=== PATIENT | male | born 1935 | race Caucasian/White ===

== ENCOUNTER → 2017-11-04 | Outpatient (CLI) | payer MEDICARE ==
[2017-11-04 12:42] LABS: Basophils % (A) 0 %; Eosinophils # (A) 0.1 k/uL (0-0.7); Eosinophils % (A) 2 %; HCT 40.8 % (39.0-53.0); HGB 13.8 gm/dL (13.0-17.5); Lymphocytes # (A) 1.7 k/uL (1.0-4.8); Lymphocytes % (A) 25 %; MCH 30.1 pg (25.0-35.0); MCHC 33.8 g/dL (31.0-37.0); MCV 89.1 fL (80.0-100.0); Mean Platelet Volume 7.9; Monocytes # (A) 0.4 k/uL (0-1.0); Monocytes % (A) 5 %; Neutrophils # (A) 4.6 k/uL (1.3-7.7); Neutrophils % (A) 67 %; Platelet Count 193 k/uL (150-450); RBC 4.58 m/uL (4.30-5.90); RDW 13.3 % (11.5-15.5)
[2017-11-04 13:07] LABS: Calcium 9.6 mg/dL (8.4-10.2); Total Bilirubin 0.6 mg/dL (0.2-1.3); Total Protein 7.1 g/dL (6.3-8.2)
[2017-11-04 13:23] LABS: T4, Free (Free Thyroxine) 0.98 ng/dL (0.78-2.19)
[2017-11-05 11:57] LABS: PSA Annual Screen 1.86 ng/mL (0.00-4.00)
== END | disposition home or self-care (01) ==
LOC: LABWHC1 12:02
PROVIDERS: ATTEND Internal Medicine
DX: E78.5 Hyperlipidemia, unspecified (principal); I10 Essential (primary) hypertension
CPT/HCPCS: 36415; 80053; 80061; 84439; 84443; 85025

== ENCOUNTER 2018-02-18 10:00 | Day surgery (SDC) | payer MEDICARE ==
[2018-02-14 12:18] VITALS: BMI 20.7
[2018-02-18] MEDS ORDERED: LIDOCAINE 1% 20 ML VIAL (10MG/ML) FOR IV START INTRADERMA ONE (11:12)
[2018-02-18 11:14] VITALS: TEMP 97.8
[2018-02-18] MEDS: LACTATED RINGERS 1,000 ML IV SCH ×2 (11:14→11:21)
[2018-02-18] MEDS ORDERED: LIDOCAINE 1% INJ 10MG/ML (20 ML MDV) ONE (11:24)
[2018-02-18] MEDS ORDERED: PROPOFOL 10 MG/ML 20 ML VIAL IV ONE (11:24)
--- NOTE | 2018-02-18 11:55 | P.PCN ---
Date of Procedure: 02/18/18 Procedure(s) Performed: Procedure: Total colonoscopy. Preoperative diagnosis: History of colitis. Postoperative diagnosis: Sigmoid diverticulosis with no evidence of acute diverticulitis, strictures, polyps or cancer. Preparation: HalfLytely prep. Sedation: Was provided by anesthesia. Brief clinical history: The patient is an 82-year-old male who is scheduled for this evaluation because of history of colitis for screening for neoplasia or other pathology. The patient has intermittent issues with constipation at this time but no rectal bleeding. Procedure: With the patient on his left lateral decubitus position and after informed consent and adequate sedation, the perianal area was inspected and it did not show any fissures or fistulas. There were no masses felt on digital rectal examination. The Olympus CFQ 160L video colonoscope was then inserted in the rectum in the usual fashion and advanced to the cecum. I intubated the ileocecal valve and examined the terminal ileum. There were multiple diverticular orifices noted scattered in the sigmoid but there was no evidence of acute diverticulitis or strictures. No polyps or tumors were seen. The mucosa appeared healthy. I retroflexed endoscope in the rectum before the endoscope was withdrawn. Low-grade internal hemorrhoids were noted but there was no bleeding. The patient tolerated the procedure well. Plan: The patient was reassured. Discussed dietary measures. He will follow up with you as planned and further plans can be made based on his course.
[2018-02-18 12:24] VITALS: BP 150/70; PULSE 50; RESP 16
== END 2018-02-18 12:42 | disposition home or self-care (01) ==
LOC: ORWHC2ENDO 10:00
DX: K57.30 Diverticulosis of large intestine without perforation or abscess without bleeding (principal); K64.8 Other hemorrhoids; I10 Essential (primary) hypertension; N40.0 Benign prostatic hyperplasia without lower urinary tract symptoms; I69.998 Other sequelae following unspecified cerebrovascular disease; Z87.891 Personal history of nicotine dependence; Z79.899 Other long term (current) drug therapy
CPT/HCPCS: 45378; J2001; J2704

== ENCOUNTER 2019-01-20 11:28 | Emergency (ER) | payer MEDICARE ==
[2019-01-20 12:11] VITALS: BP 161/74; PULSE 59; RESP 18; TEMP 98.2
[2019-01-20] MEDS ORDERED: ACETAMINOPHEN TAB 325 MG TAB PO STA (13:26)
--- NOTE | 2019-01-20 14:04 | XR ---
EXAMINATION TYPE: XR chest 2V, XR ribs RT DATE OF EXAM: 01/20/2019 COMPARISON: Prior chest x-ray November 06, 2016. Older chest x-ray April 26, 2016. HISTORY: Chest and right-sided rib pain after fall injury 4 days ago. TECHNIQUE: Frontal and lateral views of the chest are obtained. A frontal and oblique images of the right-sided ribs are acquired. FINDINGS: There is chronic parenchymal change with more prominent left basilar linear scarring and/o r atelectasis. No pleural effusion or pneumothorax is seen bilaterally. The cardiac silhouette size remains within normal limits with slightly ectatic thoracic aorta. The osseous structures are demin eralized. Advanced degenerative change right glenohumeral joint is redemonstrated. There is redemonstration of old healed fractures involving the posterior lateral right sixth through eighth ribs. Evaluation suboptimal due to demineralization. No obvious acute displaced rib fractures are present. IMPRESSION: 1. Chronic parenchymal changes without new suspicious right lung acute infiltrate or pneumothorax. 2. No obvious acute displaced right-sided rib fracture, slightly suboptimal evaluation due to underly ing demineralization.
--- NOTE | 2019-01-20 14:16 | ED ---
General Adult HPI - General Chief complaint: Fall Stated complaint: Fall, rib pain Time Seen by Provider: 01/20/19 13:11 Source: patient, RN notes reviewed Mode of arrival: ambulatory Limitations: no limitations - History of Present Illness Initial comments: 83-year-old male with a past medical history of CVA, BPH, hypertension presents to the emergency department for a chief complaint of right rib pain. Patient states that 4 days ago he was walking backwards when he tripped over a rug and fell on his right side. Patient states that after the first day was okay but on day 2 he started to have more pain. Patient states he tried to see his primary care provider but he was out of the office. States that the pain worsens when it is pressed on. States that it hurts when he coughs. Denies fevers or chills. Denies any anterior chest pain. Denies any back pain.Patient has no other complaints at this time including shortness of breath, chest pain, abdominal pain, nausea or vomiting, headache, or visual changes. - Related Data Home Medications Medication Instructions Recorded Confirmed Bisoprolol-Hctz 5-6.25 mg [Ziac 1 tab PO DAILY 02/14/18 01/20/19 5-6.25] Multivitamins, Thera [Multivitamin 1 tab PO DAILY 02/14/18 01/20/19 (formulary)] Tamsulosin HCl [Flomax] 0.4 mg PO HS 02/14/18 01/20/19 Allergies Allergy/AdvReac Type Severity Reaction Status Date / Time No Known Allergies Allergy Verified 01/20/19 13:34 Review of Systems ROS Statement: Those systems with pertinent positive or pertinent negative responses have been documented in the HPI. ROS Other: All systems not noted in ROS Statement are negative. 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 STATES CLOT THAT TRAVELLED TO HIS BACK AFTER CVA WITH SURGERY TO REMOVE., BPH, STATES HE LIMPS AND USES A CANE PRN.HX OF COLON POLYPS. History of Any Multi-Drug Resistant Organisms: None Reported Additional Past Surgical History / Comment(s): SURGERY TO REMOVE CLOT FROM BACK, SEVERAL PROCEDURES AT [facility] FOLLOWING CVA ELBOW SURGERY, RIGHT ANKLE FUSED. Past Anesthesia/Blood Transfusion Reactions: No Reported Reaction Past Psychological History: No Psychological Hx Reported Smoking Status: Former smoker Past Alcohol Use History: Occasional Past Drug Use History: None Reported - Past Family History Mother Additional Family Medical History / Comment(s): ALZHEIMERS General Exam Limitations: no limitations General appearance: alert, in no apparent distress Head exam: Present: atraumatic, normocephalic, normal inspection Eye exam: Present: normal appearance, PERRL, EOMI. Absent: scleral icterus, conjunctival injection, periorbital swelling ENT exam: Present: normal exam, mucous membranes moist Neck exam: Present: normal inspection, full ROM. Absent: tenderness, meningismus, lymphadenopathy Respiratory exam: Present: normal lung sounds bilaterally, chest wall tenderness (Patient has right-sided rib tenderness inferior from T5. No significant pinpoint tenderness. No significant ecchymosis). Absent: respiratory distress, wheezes, rales, rhonchi, stridor Cardiovascular Exam: Present: regular rate, normal rhythm, normal heart sounds. Absent: systolic murmur, diastolic murmur, rubs, gallop, clicks GI/Abdominal exam: Present: soft, normal bowel sounds. Absent: distended, tenderness (No abdominal tenderness or ecchymosis), guarding, rebound, rigid Extremities exam: Present: other (Chronic right-sided weakness noted however no other abnormalities) Back exam: Absent: CVA tenderness (R), CVA tenderness (L), vertebral tenderness (No cervical thoracic or lumbar spine tenderness) Neurological exam: Present: alert, oriented X3, CN II-XII intact Psychiatric exam: Present: normal affect, normal mood Course Vital Signs 01/20/19 12:08 Temperature 98.2 F Pulse Rate 59 L Respiratory 18 Rate Blood Pressure 161/74 O2 Sat by Pulse 97 Oximetry Medical Decision Making - Medical Decision Making 83-year-old male presents to the emergency department for a chief complaint of right-sided rib pain. Patient tripped and fell 4 days ago onto his right side. No history of blood thinners. Vitals are stable An examination is tenderness from rib 5 down, generalized in nature. No specific pinpoint tenderness. No significant ecchymosis. No spinal tenderness, no CVA tenderness. Chest x-ray shows chronic parenchymal changes without new suspicious right lung acute infiltrate or pneumothorax. There is no obvious acute displaced right-sided rib fracture. However patient will be clinically treated for rib fracture. P atient is comfortable going home. He is able to get up out of bed and walk without any assistance. Given incentive spirometer and Tylenol 3 which she has tolerated in the past. Will follow up with primary care in 1-2 days. Will return here if he has any worsening symptoms. Disposition Clinical Impression: Contusion of rib on right side Disposition: HOME SELF-CARE Condition: Good Instructions (If sedation given, give patient instructions): Rib Contusion (ED) Additional Instructions: Please take Tylenol for pain. If pain is severe take Tylenol 3. He is in sinus primary attending his every hour. Follow up with primary care in 1-2 days. Return here if you have any worsening symptoms. Is patient prescribed a controlled substance at d/c from ED?: No Referrals: Josh Mcallister MD [Primary Care Provider] - 1-2 days Time of Disposition: 14:55
[2019-01-20] MEDS ORDERED: ACET/COD 300 MG/30 MG STARTER PACK 6 TAB BTL PO STA (14:56)
== END 2019-01-20 15:15 | disposition home or self-care (01) ==
LOC: EC 11:28
DX: S20.211A Contusion of right front wall of thorax, initial encounter (principal); I10 Essential (primary) hypertension; N40.0 Benign prostatic hyperplasia without lower urinary tract symptoms; Z86.73 Personal history of transient ischemic attack (TIA), and cerebral infarction without residual deficits; Z87.891 Personal history of nicotine dependence; Z79.899 Other long term (current) drug therapy; W18.09XA Striking against other object with subsequent fall, initial encounter; Y92.009 Unspecified place in unspecified non-institutional (private) residence as the place of occurrence of the external cause
CPT/HCPCS: 71046; 99283

== ENCOUNTER 2019-01-22 16:29 | Emergency (ER) | payer MEDICARE ==
[2019-01-22 17:23] VITALS: RESP 18
[2019-01-22] MEDS ORDERED: HYDROcodone/APAP 7.5-325MG 1 EACH TAB PO ONE (17:40)
--- NOTE | 2019-01-22 18:06 | ED ---
Chest Pain HPI - General Chief Complaint: Chest Pain Stated Complaint: Fall-side/shoulder pain Time Seen by Provider: 01/22/19 16:38 Source: patient, RN notes reviewed Mode of arrival: wheelchair Limitations: no limitations - History of Present Illness Initial Comments: 83-year-old male presents emergency Department chief complaint of right-sided chest wall pain. Patient states he fell a few days ago was seen in emergency department, was diagnosed with possible rib fracture. Patient states is given Tylenol with codeine was states is not helping his pain. Patient states that he is concerned about that there is actual rib fracture. States that he has been doing his incentive spirometry. He denies any focal weakness patient denies any nausea and diarrhea constipation. Patient is only concerned about what is causing this pain at this time. Denies any left-sided chest pain or pleuritic pain on the left states she is otherwise pleuritic pain on the right side - Related Data Home Medications Medication Instructions Recorded Confirmed Bisoprolol-Hctz 5-6.25 mg [Ziac 1 tab PO DAILY 02/14/18 01/22/19 5-6.25] Multivitamins, Thera [Multivitamin 1 tab PO DAILY 02/14/18 01/22/19 (formulary)] Tamsulosin HCl [Flomax] 0.4 mg PO HS 02/14/18 01/22/19 Previous Rx's Medication Instructions Recorded HYDROcodone/APAP 7.5-325MG [Machipongo 1 tab PO Q6HR PRN 3 Days #12 tab 01/22/19 7.5-325] Allergies Allergy/AdvReac Type Severity Reaction Status Date / Time No Known Allergies Allergy Verified 01/22/19 18:44 Review of Systems ROS Statement: Those systems with pertinent positive or pertinent negative responses have been documented in the HPI. ROS Other: All systems not noted in ROS Statement are negative. Past Medical History Past Medical History: CVA/TIA, Hypertension, Prostate Disorder Additional Past Medical History / Comment(s): CVA (195)- STATES RIGHT ARM & LEG WEAKNESS. STATES CLOT THAT TRAVELLED TO HIS BACK AFTER CVA WITH SURGERY TO REMOVE., BPH, STATES HE LIMPS AND USES A CANE PRN.HX OF COLON POLYPS. History of Any Multi-Drug Resistant Organisms: None Reported Additional Past Surgical History / Comment(s): SURGERY TO REMOVE CLOT FROM BACK, SEVERAL PROCEDURES AT [facility] FOLLOWING CVA ELBOW SURGERY, RIGHT ANKLE FUSED. Past Anesthesia/Blood Transfusion Reactions: No Reported Reaction Past Psychological History: No Psychological Hx Reported Smoking Status: Former smoker Past Alcohol Use History: Occasional Past Drug Use History: None Reported - Past Family History Mother Additional Family Medical History / Comment(s): ALZHEIMERS General Exam Limitations: no limitations General appearance: alert, in no apparent distress Head exam: Present: atraumatic, normocephalic, normal inspection Eye exam: Present: normal appearance, PERRL, EOMI. Absent: scleral icterus, conjunctival injection, periorbital swelling ENT exam: Present: normal exam, normal oropharynx, mucous membranes moist Neck exam: Present: normal inspection, full ROM. Absent: tenderness, meningismus, lymphadenopathy Respiratory exam: Present: normal lung sounds bilaterally. Absent: respiratory distress, wheezes, rales, rhonchi, stridor, chest wall tenderness (Tenderness to the right anterior lateral ribs) Cardiovascular Exam: Present: regular rate, normal rhythm, normal heart sounds. Absent: systolic murmur, diastolic murmur, rubs, gallop, clicks GI/Abdominal exam: Present: soft, normal bowel sounds. Absent: distended, tenderness, guarding, rebound, rigid Neurological exam: Present: alert, oriented X3, CN II-XII intact Skin exam: Present: warm, dry, intact, normal color. Absent: rash Course Vital Signs 01/22/19 17:17 Temperature 98.1 F Pulse Rate 61 Respiratory 18 Rate Blood Pressure 168/73 O2 Sat by Pulse 97 Oximetry Chest Pain MDM - [facility] 83-year-old male presented for right-sided rib pain after a fall he did have prior x-rays which were negative CT is obtained today rule out any fracture, pneumothorax or any other concerning findings. It he was negative patient is improved after Machipongo. He has no other complaints. Patient will be discharged return parameters were discussed. Disposition Clinical Impression: Contusion of rib on right side Disposition: HOME SELF-CARE Condition: Stable Instructions (If sedation given, give patient instructions): Rib Contusion (ED) Additional Instructions: Please return to the Emergency Department if symptoms worsen or any other concerns. Prescriptions: HYDROcodone/APAP 7.5-325MG [Machipongo 7.5-325] 1 tab PO Q6HR PRN 3 Days #12 tab PRN Reason: Pain Is patient prescribed a controlled substance at d/c from ED?: Yes When asked, does pt state using other controlled substances?: No If prescribed controlled substance>3 days was MAPS reviewed?: Prescribed <3 Days If opioid is for acute pain is fill amount 7 days or less?: Yes If Rx opioid, was Start Talking consent form obtained?: Yes Referrals: Josh Mcallister MD [Primary Care Provider] - 1-2 days Time of Disposition: 19:04
--- NOTE | 2019-01-22 18:46 | CT ---
EXAMINATION TYPE: CT chest wo con DATE OF EXAM: 01/22/2019 COMPARISON: None HISTORY: Right rib and shoulder pain after fall yesterday. CT DLP: 265.3 mGycm. Automated Exposure Control for Dose Reduction was Utilized. TECHNIQUE: CT scan of the thorax is performed without IV contrast. FINDINGS: There is some pleural thickening and atelectasis at the right lung base. The other lung wise are fa irly clear. Thoracic aorta is atheromatous. There is no mediastinal adenopathy. There are no hilar ma sses. There is coronary artery dense calcification. Heart size is fairly normal. There is small peric ardial effusion. Thoracic spine appears intact. There is no thoracic compression fracture. There is deformity of the l ateral right rib consistent with old healed fracture. I see no acute rib fracture. 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 No acute rib fracture seen. Pleural thickening and atelectasis at the lung bases. No pneumothorax. Very small pericardial effusio n noted.
[2019-01-22 19:55] VITALS: BP 158/71; PULSE 70; TEMP 98
== END 2019-01-22 19:10 | disposition home or self-care (01) ==
LOC: EC 16:29
DX: S20.211D Contusion of right front wall of thorax, subsequent encounter (principal); I10 Essential (primary) hypertension; N40.0 Benign prostatic hyperplasia without lower urinary tract symptoms; Z86.73 Personal history of transient ischemic attack (TIA), and cerebral infarction without residual deficits; Z87.891 Personal history of nicotine dependence; Z79.899 Other long term (current) drug therapy; W19.XXXD Unspecified fall, subsequent encounter
CPT/HCPCS: 71250; 99283

== ENCOUNTER 2020-03-04 10:38 | Outpatient (CLI) | payer MEDICARE | END 2020-03-04 12:49 | disposition home or self-care (01) | LOC: LABWHC1 10:38 | PROVIDERS: ATTEND Internal Medicine | DX: Z53.9 Procedure and treatment not carried out, unspecified reason (principal) ==

== ENCOUNTER → 2020-03-09 | Outpatient (CLI) | payer MEDICARE ==
[2020-03-09 11:54] LABS: Basophils % (A) 0 %; Eosinophils # (A) 0.1 k/uL (0-0.7); Eosinophils % (A) 1 %; HCT 43.4 % (39.0-53.0); HGB 13.9 gm/dL (13.0-17.5); Lymphocytes # (A) 1.7 k/uL (1.0-4.8); Lymphocytes % (A) 23 %; MCHC 32.1 g/dL (31.0-37.0); MCV 93.4 fL (80.0-100.0); Mean Platelet Volume 8.1; Monocytes # (A) 0.3 k/uL (0-1.0); Monocytes % (A) 4 %; Neutrophils # (A) 5.1 k/uL (1.3-7.7); Neutrophils % (A) 70 %; Platelet Count 216 k/uL (150-450); RBC 4.64 m/uL (4.30-5.90); RDW 12.8 % (11.5-15.5); WBC 7.4 k/uL (3.8-10.6)
[2020-03-09 19:48] LABS: Albumin 4.2 g/dL (3.80-4.90); Albumin/Globulin Ratio 1.83 (1.60-3.17); BUN/Creat Ratio 13.33 Ratio (12.00-20.00); Calcium 9.6 mg/dL (8.7-10.3); Chol/HDL Ratio 5.07; Globulin 2.3 g/dL (1.6-3.3); LDL Cholesterol,Calculated 145.4 mg/dL (0.0-131.0); Non-African American GFR(CKD) 55.2 (60.0-200.0); Potassium 4.2 mmol/L (3.5-5.5); Total Bilirubin 0.6 mg/dL (0.3-1.2); Total Protein 6.5 g/dL (6.2-8.2); VLDL Calculation 29.6 mg/dL (5.00-40.00)
[2020-03-09 19:55] LABS: Prostate Specific Antigen 1.5 ng/mL (0.0-6.5); T4, Free (Free Thyroxine) 1.1 ng/dL (0.80-1.80)
== END | disposition home or self-care (01) ==
LOC: LABWHC1 10:09
PROVIDERS: ATTEND Internal Medicine
DX: J45.909 Unspecified asthma, uncomplicated (principal); I10 Essential (primary) hypertension; K58.9 Irritable bowel syndrome, unspecified; E03.9 Hypothyroidism, unspecified; Z86.718 Personal history of other venous thrombosis and embolism; I27.81 Cor pulmonale (chronic)
CPT/HCPCS: 36415; 80053; 80061; 84153; 84439; 84443; 85025

== ENCOUNTER 2020-04-03 12:10 | Emergency (ER) | payer MEDICARE ==
[2020-04-03 12:27] VITALS: RESP 18
--- NOTE | 2020-04-03 12:58 | ED ---
Fall HPI - General Chief Complaint: Fall Stated Complaint: Fall Time Seen by Provider: 04/03/20 12:21 Source: patient, RN notes reviewed, old records reviewed Mode of arrival: wheelchair Limitations: no limitations, language barrier (Mild limitations due to language barrier from prior stroke) - History of Present Illness Initial Comments: This is an 84-year-old male DF for evaluation of some from prior stroke about 6 years ago. Patient had some weakness on his right side nodes developed significant improvement and strength training. Patient went to the bathroom today felt a little bit weaker than normal by CT still sees again. Onto his right side and did hit his head. 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 Witnessed: yes, by family Place Fall Occurred: home Loss of Consciousness: none Prolonged Down Time?: no Symptoms Prior to Fall: none Location: head Severity: mild Severity scale (1-10): 3 Context: tripped/slipped Associated Symptoms: denies - Related Data Home Medications Medication Instructions Recorded Confirmed Bisoprolol-Hctz 5-6.25 mg [Ziac 1 tab PO DAILY 02/14/18 01/22/19 5-6.25] Multivitamins, Thera [Multivitamin 1 tab PO DAILY 02/14/18 01/22/19 (formulary)] Tamsulosin HCl [Flomax] 0.4 mg PO HS 02/14/18 01/22/19 Previous Rx's Medication Instructions Recorded HYDROcodone/APAP 7.5-325MG [Verbena 1 tab PO Q6HR PRN 3 Days #12 tab 01/22/19 7.5-325] Allergies Allergy/AdvReac Type Severity Reaction Status Date / Time No Known Allergies Allergy Verified 04/03/20 12:19 Review of Systems ROS Statement: Those systems with pertinent positive or pertinent negative responses have been documented in the HPI. ROS Other: All systems not noted in ROS Statement are negative. 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 STATES CLOT THAT TRAVELLED TO HIS BACK AFTER CVA WITH SURGERY TO REMOVE., BPH, STATES HE LIMPS AND USES A CANE PRN.HX OF COLON POLYPS. History of Any Multi-Drug Resistant Organisms: None Reported Additional Past Surgical History / Comment(s): SURGERY TO REMOVE CLOT FROM BACK, SEVERAL PROCEDURES AT [facility] FOLLOWING CVA ELBOW SURGERY, RIGHT ANKLE FUSED. Past Anesthesia/Blood Transfusion Reactions: No Reported Reaction Past Psychological History: No Psychological Hx Reported Smoking Status: Never smoker Past Alcohol Use History: Occasional Past Drug Use History: None Reported - Past Family History Mother Additional Family Medical History / Comment(s): ALZHEIMERS General Exam Limitations: no limitations General appearance: alert, in no apparent distress Head exam: Present: normocephalic, normal inspection. Absent: atraumatic (Top of scalp abrasion) Eye exam: Present: normal appearance, PERRL, EOMI. Absent: scleral icterus, conjunctival injection, periorbital swelling ENT exam: Present: normal exam, mucous membranes moist Neck exam: Present: normal inspection. Absent: tenderness, meningismus, lymphadenopathy Respiratory exam: Present: normal lung sounds bilaterally. Absent: respiratory distress, wheezes, rales, rhonchi, stridor Cardiovascular Exam: Present: regular rate, normal rhythm, normal heart sounds. Absent: systolic murmur, diastolic murmur, rubs, gallop, clicks GI/Abdominal exam: Present: soft, normal bowel sounds. Absent: distended, tenderness, guarding, rebound, rigid Extremities exam: Present: normal inspection, full ROM, normal capillary refill. Absent: tenderness, pedal edema, joint swelling, calf tenderness Back exam: Present: normal inspection Neurological exam: Present: alert, oriented X3, CN II-XII intact Psychiatric exam: Present: normal affect, normal mood Skin exam: Present: warm, dry, intact, normal color. Absent: rash Course Vital Signs 04/03/20 12:20 Temperature 98 F Pulse Rate 72 Respiratory 18 Rate Blood Pressure 135/79 O2 Sat by Pulse 99 Oximetry - Reevaluation(s) Reevaluation #1: 04/03/20 13:03 Medical records reviewed Reevaluation #2: 04/03/20 13:03 Patient remains without focal neurological deficit Medical Decision Making - Medical Decision Making 84 male DF with slip and fall) head injury no bleeding. Patient can be discharged home no neurological changes to suggest new stroke - Radiology Data Radiology results: report reviewed (CT brain C-spine negative for acute disease), image reviewed Disposition Clinical Impression: Fall, Head injury Disposition: HOME SELF-CARE Condition: Good Instructions (If sedation given, give patient instructions): Fall Prevention for Older Adults (ED), Head Injury (ED) Is patient prescribed a controlled substance at d/c from ED?: No Referrals: Josh Mcallister MD [Primary Care Provider] - 1-2 days
--- NOTE | 2020-04-03 13:27 | CT ---
EXAMINATION TYPE: CT brain cspine wo con DATE OF EXAM: 04/03/2020 COMPARISON: None HISTORY: Fall CT DLP: 1566.7 mGycm Automated exposure control for dose reduction was used. TECHNIQUE: CT scan of the head and cervical spine are performed without contrast. FINDINGS: There is no acute intracranial hemorrhage, mass effect, or midline shift identified. The re is old encephalomalacia of the left frontal lobe. Patchy periventricular white matter hypodensitie s likely sequela of chronic microvascular ischemic change. The ventricles and sulci are prominent con cordant with diffuse volume loss. The globes are grossly symmetric. The visualized sinuses are clear . Cervical spine is visualized in its entirety from C1 through upper thoracic levels and demonstrates n o evidence of acute fracture or dislocation. There is straightening of the cervical lordosis and ext ension of the head. Multilevel degenerative changes. No high-grade canal stenosis. Prevertebral soft tissue appears within normal limits. The C1-C2 articulation is intact with degenerative changes. IMPRESSION: 1. No acute intracranial hemorrhage, midline shift, or mass effect. 2. 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 3. Patchy white matter hypodensities likely sequela of chronic microvascular ischemic change. 4. No acute fracture or dislocation of the cervical spine.
[2020-04-03 13:52] VITALS: BP 133/70; PULSE 78; TEMP 97.9
== END 2020-04-03 13:52 | disposition home or self-care (01) ==
LOC: EC 12:10
DX: S09.90XA Unspecified injury of head, initial encounter (principal); S60.519A Abrasion of unspecified hand, initial encounter; I10 Essential (primary) hypertension; I69.351 Hemiplegia and hemiparesis following cerebral infarction affecting right dominant side; N40.0 Benign prostatic hyperplasia without lower urinary tract symptoms; Z99.89 Dependence on other enabling machines and devices; Z79.899 Other long term (current) drug therapy; W01.10XA Fall on same level from slipping, tripping and stumbling with subsequent striking against unspecified object, initial encounter; Y92.009 Unspecified place in unspecified non-institutional (private) residence as the place of occurrence of the external cause
CPT/HCPCS: 70450; 72125; 99284

== ENCOUNTER → 2020-05-10 | Outpatient (CLI) | payer MEDICARE ==
[2020-05-10 20:05] LABS: INR 1.03 (0.90-1.11); Partial Thromboplastin Time 30.5 sec (24.7-29.9)
[2020-05-10 20:07] LABS: T4, Free (Free Thyroxine) 1.2 ng/dL (0.80-1.80)
== END | disposition home or self-care (01) ==
LOC: LABWHC1 12:28
PROVIDERS: ATTEND Psychiatry & Neurology Neurology
DX: R41.3 Other amnesia (principal); Z86.69 Personal history of other diseases of the nervous system and sense organs
CPT/HCPCS: 36415; 82306; 82607; 84439; 84443; 85610; 85652; 85730

== ENCOUNTER → 2020-05-23 | Outpatient (CLI) | payer MEDICARE ==
--- NOTE | 2020-05-28 16:55 | HM ---
HOLTER MONITOR REPORT Patient was monitored for 48 hours. Baseline rhythm is sinus mechanism with interventricular conduction delay. The average rate is 52 beats per minute. The minimum is 35, maximum 83 beats per minute. Ventricular ectopic activity was present in form of rare single PVCs. Supraventricular ectopic activity was present in form of rare single PACs. There was no episode of atrial fibrillation. No diary was available. CONCLUSION: 1. Sinus bradycardia at baseline rhythm with interventricular conduction delay. 2. Rare ventricular ectopic activity. 3. Rare supraventricular ectopic activity. 4. No diary was available. MMODL / IJN: [id number] /
== END | disposition home or self-care (01) ==
LOC: RADECHMAIN 12:43
PROVIDERS: ATTEND Psychiatry & Neurology Neurology
DX: R00.1 Bradycardia, unspecified (principal); I45.89 Other specified conduction disorders
CPT/HCPCS: 93225; 93226

== ENCOUNTER → 2020-10-14 | Outpatient (CLI) | payer MEDICARE ==
--- NOTE | 2020-10-14 16:07 | XR ---
EXAMINATION TYPE: XR abdomen 2V DATE OF EXAM: 10/14/2020 COMPARISON: NONE HISTORY: Diarrhea TECHNIQUE: One view abdominal series FINDINGS: The osseous structures are intact. The bowel gas pattern is nonspecific. There is extensive retained fecal debris throughout the colon correlate for fecal impaction and severe constipation. Scoliosis w ith degenerative change of the spine. Arthropathy of the hips. Lung bases clear. IMPRESSION: 1. Correlates for severe constipation.
== END | disposition home or self-care (01) ==
LOC: RADXRMAIN 15:12
PROVIDERS: ATTEND Internal Medicine
DX: R19.7 Diarrhea, unspecified (principal)
CPT/HCPCS: 74019

== ENCOUNTER 2020-10-16 17:17 | Inpatient (IN) | payer MEDICARE ==
--- NOTE | 2020-10-16 17:49 | ED ---
Abdominal Pain HPI - General Chief Complaint: Abdominal Pain Stated Complaint: possible appendicitis Time Seen by Provider: 10/16/20 17:48 Source: patient Mode of arrival: ambulatory Limitations: no limitations - History of Present Illness Initial Comments: Justo is a pleasant 85-year-old gentleman who presents to the ER today via private for evaluation of abdominal pain is been persistent for 5 days. Patient reports that he's had abdominal pain and constipation he was seen at outpatient on Saturday and an x-ray was obtained. Patient reports that time pain has been getting worse she decided to the ER for further evaluation. Patient denies fever chills nausea or vomiting. Patient was referred to GI for outpatient follow-up and is scheduled to see them next week. Bedside states the patient never complains of pain so she is concerned because h e has to come to the hospital. - Related Data Home Medications Medication Instructions Recorded Confirmed Bisoprolol-Hctz 5-6.25 mg [Ziac 1 tab PO DAILY 02/14/18 10/16/20 5-6.25] Multivitamins, Thera [Multivitamin 1 tab PO DAILY 02/14/18 10/16/20 (formulary)] Tamsulosin HCl [Flomax] 0.4 mg PO HS 02/14/18 10/16/20 Diphenox-Atrop 2.5-0.025 mg 1 tab PO Q6H PRN 10/16/20 10/16/20 [Lomotil] Memantine HCl 10 mg PO BID 10/16/20 10/16/20 Simvastatin [Zocor] 20 mg PO DAILY 10/16/20 10/16/20 Allergies Allergy/AdvReac Type Severity Reaction Status Date / Time No Known Allergies Allergy Verified 10/16/20 20:29 Review of Systems ROS Statement: Those systems with pertinent positive or pertinent negative responses have been documented in the HPI. ROS Other: All systems not noted in ROS Statement are negative. 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 STATES CLOT THAT TRAVELLED TO HIS BACK AFTER CVA WITH SURGERY TO REMOVE., BPH, STATES HE LIMPS AND USES A CANE PRN.HX OF COLON POLYPS. History of Any Multi-Drug Resistant Organisms: None Reported Additional Past Surgical History / Comment(s): SURGERY TO REMOVE CLOT FROM BACK, SEVERAL PROCEDURES AT [facility] FOLLOWING CVA ELBOW SURGERY, RIGHT ANKLE FUSED. Past Anesthesia/Blood Transfusion Reactions: No Reported Reaction Past Psychological History: No Psychological Hx Reported Smoking Status: Never smoker Past Alcohol Use History: Occasional Past Drug Use History: None Reported - Past Family History Mother Additional Family Medical History / Comment(s): ALZHEIMERS General Exam - General Exam Comments Initial Comments: Physical Exam GENERAL: Elderly male, appears uncomfortable HENT: Normocephalic, Atraumatic. EYES: PERRL, EOMI PULMONARY: Unlabored respirations. CARDIOVASCULAR: RRR Warm and well perfused extremities ABDOMEN: Abdomen soft, firm masses palpable Tenderness Right > Left SKIN: No rashes or bruising : Deferred NEUROLOGIC: Alert and oriented Normal speech MUSCULOSKELETAL: Moving all extremities with no apparent injury PSYCHIATRIC: No SI/HI Limitations: no limitations Course Vital Signs 10/16/20 10/16/20 10/16/20 17:27 18:46 20:47 Temperature 97.8 F Pulse Rate 88 81 80 Respiratory 18 16 16 Rate Blood Pressure 153/80 145/76 143/72 O2 Sat by Pulse 97 97 98 Oximetry Medical Decision Making - Medical Decision Making The patient was seen and evaluated history was obtained from patient and This elderly male with worsening abdominal pain 5 days labs were obtained and he has leukocytosis next and CT scan reveals diffuse colitis patient be treated with antibiotics and admitted this plan was discussed with Dr. Simpson from [facility] group who agrees Patient confirm he has full code - Lab Data Result diagrams: 10/16/20 18:38 10/16/20 18:38 Lab Results 10/16/20 10/16/20 10/16/20 Range/Units 18:38 18:38 18:38 WBC 22.5 H (3.8-10.6) k/uL RBC 4.66 (4.30-5.90) m/uL Hgb 14.2 (13.0-17.5) gm/dL Hct 42.7 (39.0-53.0) % MCV 91.5 (80.0-100.0) fL MCH 30.5 (25.0-35.0) pg MCHC 33.3 (31.0-37.0) g/dL RDW 12.9 (11.5-15.5) % Plt Count 199 (150-450) k/uL MPV 8.2 Neutrophils % 91 % Lymphocytes % 4 % Monocytes % 3 % Eosinophils % 1 % Basophils % 0 % Neutrophils # 20.6 H (1.3-7.7) k/uL Lymphocytes # 0.8 L (1.0-4.8) k/uL Monocytes # 0.7 (0-1.0) k/uL Eosinophils # 0.2 (0-0.7) k/uL Basophils # 0.0 (0-0.2) k/uL Sodium 134 L (137-145) mmol/L Potassium 4.3 (3.5-5.1) mmol/L Chloride 101 (98-107) mmol/L Carbon Dioxide 25 (22-30) mmol/L Anion Gap 8 mmol/L BUN 20 (9-20) mg/dL Creatinine 0.91 (0.66-1.25) mg/dL Est GFR (CKD-EPI)AfAm 89 (>60 ml/min/1.73 sqM) Est GFR (CKD-EPI)NonAf 77 (>60 ml/min/1.73 sqM) Glucose 107 H (74-99) mg/dL Plasma Lactic Acid Santosh 1.6 (0.7-2.0) mmol/L Calcium 9.3 (8.4-10.2) mg/dL Total Bilirubin 1.6 H (0.2-1.3) mg/dL AST 26 (17-59) U/L ALT 14 (4-49) U/L Alkaline Phosphatase 101 (38-126) U/L Total Protein 6.6 (6.3-8.2) g/dL Albumin 3.5 (3.5-5.0) g/dL Amylase 47 (30-110) U/L Lipase 47 (23-300) U/L Urine Color Urine Appearance (Clear) Urine pH (5.0-8.0) Ur Specific [place] (1.001-1.035) Urine Protein (Negative) Urine Glucose (UA) (Negative) Urine Ketones (Negative) Urine Blood (Negative) Urine Nitrite (Negative) Urine Bilirubin (Negative) Urine Urobilinogen (<2.0) mg/dL Ur Leukocyte Esterase (Negative) 10/16/20 Range/Units 20:47 WBC (3.8-10.6) k/uL RBC (4.30-5.90) m/uL Hgb (13.0-17.5) gm/dL Hct (39.0-53.0) % MCV (80.0-100.0) fL MCH (25.0-35.0) pg MCHC (31.0-37.0) g/dL RDW (11.5-15.5) % Plt Count (150-450) k/uL MPV Neutrophils % % Lymphocytes % % Monocytes % % Eosinophils % % Basophils % % Neutrophils # (1.3-7.7) k/uL Lymphocytes # (1.0-4.8) k/uL Monocytes # (0-1.0) k/uL Eosinophils # (0-0.7) k/uL Basophils # (0-0.2) k/uL Sodium (137-145) mmol/L Potassium (3.5-5.1) mmol/L Chloride (98-107) mmol/L Carbon Dioxide (22-30) mmol/L Anion Gap mmol/L BUN (9-20) mg/dL Creatinine (0.66-1.25) mg/dL Est GFR (CKD-EPI)AfAm (>60 ml/min/1.73 sqM) Est GFR (CKD-EPI)NonAf (>60 ml/min/1.73 sqM) Glucose (74-99) mg/dL Plasma Lactic Acid Santosh (0.7-2.0) mmol/L Calcium (8.4-10.2) mg/dL Total Bilirubin (0.2-1.3) mg/dL AST (17-59) U/L ALT (4-49) U/L Alkaline Phosphatase (38-126) U/L Total Protein (6.3-8.2) g/dL Albumin (3.5-5.0) g/dL Amylase (30-110) U/L Lipase (23-300) U/L Urine Color Yellow Urine Appearance Clear (Clear) Urine pH 6.0 (5.0-8.0) Ur Specific [place] >1.050 H (1.001-1.035) Urine Protein Negative (Negative) Urine Glucose (UA) Negative (Negative) Urine Ketones 1+ H (Negative) Urine Blood Negative (Negative) Urine Nitrite Negative (Negative) Urine Bilirubin Negative (Negative) Urine Urobilinogen <2.0 (<2.0) mg/dL Ur Leukocyte Esterase Negative (Negative) Disposition Clinical Impression: Colitis Disposition: ADMITTED IP TO THIS HOSP Condition: Serious Is patient prescribed a controlled substance at d/c from ED?: No
[2020-10-16] MEDS ORDERED: MORPHINE SULFATE 4 MG/ML SYRINGE IV STA (18:06)
[2020-10-16] MEDS ORDERED: SODIUM CHLORIDE 0.9% 1,000 ML IV STA (18:06)
[2020-10-16 18:44] LABS: Basophils % (A) 0 %; Eosinophils # (A) 0.2 k/uL (0-0.7); Eosinophils % (A) 1 %; HCT 42.7 % (39.0-53.0); HGB 14.2 gm/dL (13.0-17.5); Lymphocytes # (A) 0.8 k/uL (1.0-4.8); Lymphocytes % (A) 4 %; MCH 30.5 pg (25.0-35.0); MCHC 33.3 g/dL (31.0-37.0); MCV 91.5 fL (80.0-100.0); Mean Platelet Volume 8.2; Monocytes # (A) 0.7 k/uL (0-1.0); Monocytes % (A) 3 %; Neutrophils # (A) 20.6 k/uL (1.3-7.7); Neutrophils % (A) 91 %; Platelet Count 199 k/uL (150-450); RBC 4.66 m/uL (4.30-5.90); RDW 12.9 % (11.5-15.5); WBC 22.5 k/uL (3.8-10.6)
[2020-10-16 18:53] LABS: Albumin 3.5 g/dL (3.5-5.0); Calcium 9.3 mg/dL (8.4-10.2); Potassium 4.3 mmol/L (3.5-5.1); Total Bilirubin 1.6 mg/dL (0.2-1.3); Total Protein 6.6 g/dL (6.3-8.2)
--- NOTE | 2020-10-16 19:34 | CT ---
EXAMINATION TYPE: CT abdomen pelvis w con DATE OF EXAM: 10/16/2020 COMPARISON: None HISTORY: RLQ pain CT DLP: 757 mGycm Automated exposure control for dose reduction was used. CONTRAST: Performed with IV Contrast, patient injected with 100 mL of Isovue 300. Images obtained from the diaphragm to the floor the pelvis with IV contrast. There is mild atelectasis at the posterior lung bases. Heart size is normal. There is no pericardial effusion. There is coronary artery calcification. There is no pleural effusion. Liver and gallbladder appear intact. The bile ducts are not dilated. Spleen is intact. There is no pa ncreatic mass. Pancreatic duct appears normal. There is no adrenal mass. Kidneys show satisfactory contrast opacification. There is no hydronephrosi s. Delayed images show normal renal excretion. The ureters are not dilated. Bladder distends smoothly . There is no inguinal hernia. There is large amount of retained fecal material in the rectosigmoid colon. The colon is dilated up t o 9.5 cm. There is retained fecal material throughout the large bowel. There are some sigmoid diverti cula. There is small amount of free fluid in the right paracolic gutter. There is mild wall thickening of t he rectum. There is no sign of free air. There is no evidence of mesenteric edema. There is multilevel spondylot ic changes in the lumbar spine. There is disc space narrowing and vacuum disc at multiple levels. The re is no compression fracture. There is a 5 mm subluxation at L5-S1. The bony pelvis is intact. Hip j oints are intact. IMPRESSION: Dilated rectosigmoid colon with fecal rectal impaction. Mild wall thickening suggestive of some degre e of colitis. Minimal free fluid. There is some mild linear infiltrate and atelectasis at the lung bases.
[2020-10-16 21:05] LABS: Appearance,Urine Clear (Clear); Bilirubin,Urine Negative (Negative); Blood,Urine Negative (Negative); Color,Urine Yellow; Glucose,Urine (UA) Negative (Negative); Ketones,Urine 1+ (Negative); Leukocyte Esterase,Urine Negative (Negative); Nitrite,Urine Negative (Negative); Protein,Urine Negative (Negative); Urobilinogen,Urine <2.0 mg/dL (<2.0)
[2020-10-16 21:09] LABS: Specific Gravity,Urine >1.050 (1.001-1.035)
[2020-10-16] MEDS ORDERED: NALOXONE 0.4 MG/ML 1 ML VIAL IV PRN (21:11)
[2020-10-16] MEDS: SODIUM CHLORIDE 0.9% 1,000 ML IV SCH (23:10)
[2020-10-17] MEDS: metroNIDAZOLE-NS PMX 500 MG in SALINE 1 100ML.BAG IVPB SCH ×3 (00:11→17:43)
[2020-10-17] MEDS ORDERED: MORPHINE SULFATE 4 MG/ML SYRINGE IVP PRN (04:34)
[2020-10-17 11:43] LABS: HCT 41.1 % (39.0-53.0); HGB 13.8 gm/dL (13.0-17.5); MCH 31.2 pg (25.0-35.0); MCHC 33.6 g/dL (31.0-37.0); MCV 92.9 fL (80.0-100.0); Mean Platelet Volume 8.6; Platelet Count 180 k/uL (150-450); RBC 4.42 m/uL (4.30-5.90); RDW 13.1 % (11.5-15.5); WBC 18.7 k/uL (3.8-10.6)
[2020-10-17 11:52] LABS: ALT 11 U/L (4-49); AST 21 U/L (17-59); African American GFR (CKD) 88 (>60 ml/min/1.73 sqM); Albumin 3.2 g/dL (3.5-5.0); Albumin/Globulin Ratio 1.2; Alkaline Phosphatase 101 U/L (38-126); Anion Gap 9 mmol/L; Blood Urea Nitrogen 17 mg/dL (9-20); Calcium 8.8 mg/dL (8.4-10.2); Carbon Dioxide 24 mmol/L (22-30); Chloride 103 mmol/L (98-107); Globulin 2.7 g/dL; Glucose 85 mg/dL (74-99); Non-African American GFR(CKD) 76 (>60 ml/min/1.73 sqM); Potassium 4.4 mmol/L (3.5-5.1); Sodium 136 mmol/L (137-145); Total Bilirubin 1.3 mg/dL (0.2-1.3); Total Protein 5.9 g/dL (6.3-8.2)
--- NOTE | 2020-10-17 12:58 | P.HPIM ---
History of Present Illness Patient is a pleasant 85-year-old gentleman who presents to the ER today via private for evaluation of abdominal pain is been persistent for 5 days. Patient reports that he's had abdominal pain and constipation he was seen at outpatient on Saturday and an x-ray was obtained. Patient reports that time pain has been getting worse she decided to the ER for further evaluation. Patient denies fever chills nausea or vomiting. Patient was referred to GI for outpatient follow-up and is scheduled to see them next week. Patient had a CT of the abdomen which showed stool retention and the possible colitis patient abdominal pain is severe right lower abdominal quadrant, sharp in nature. Patient is started on Rocephin and azithromycin Review of Systems REVIEW OF SYSTEMS: CONSTITUTIONAL: No fever, no malaise, no fatigue. HEENT: No recent visual problems or hearing problems. Denied any sore throat. CARDIOVASCULAR: No chest pain, orthopnea, PND, no palpitations, no syncope. PULMONARY: No shortness of breath, no cough, no hemoptysis. GASTROINTESTINAL: As mentioned in HPI NEUROLOGICAL: No headaches, no weakness, no numbness. HEMATOLOGICAL: Denies any bleeding or petechiae. GENITOURINARY: Denies any burning micturition, frequency, or urgency. MUSCULOSKELETAL/RHEUMATOLOGICAL: Denies any joint pain, swelling, or any muscle pain. ENDOCRINE: Denies any polyuria or polydipsia. The rest of the 14-point review of systems is negative. Past Medical History Past Medical History: CVA/TIA, Hypertension, Prostate Disorder Additional Past Medical History / Comment(s): CVA ([birth year])- STATES RIGHT ARM & LEG WEAKNESS. STATES CLOT THAT TRAVELLED TO HIS BACK AFTER CVA WITH SURGERY TO REMOVE., BPH, STATES HE LIMPS AND USES A CANE PRN.HX OF COLON POLYPS. History of Any Multi-Drug Resistant Organisms: None Reported Additional Past Surgical History / Comment(s): SURGERY TO REMOVE CLOT FROM BACK, SEVERAL PROCEDURES AT [facility] FOLLOWING CVA ELBOW SURGERY, RIGHT ANKLE FUSED. Past Anesthesia/Blood Transfusion Reactions: No Reported Reaction Past Psychological History: No Psychological Hx Reported Smoking Status: Never smoker Past Alcohol Use History: Occasional Past Drug Use History: None Reported - Past Family History Mother Additional Family Medical History / Comment(s): ALZHEIMERS Medications and Allergies Home Medications Medication Instructions Recorded Confirmed Type Bisoprolol-Hctz 5-6.25 mg [Ziac 1 tab PO DAILY 02/14/18 10/16/20 History 5-6.25] Multivitamins, Thera [Multivitamin 1 tab PO DAILY 02/14/18 10/16/20 History (formulary)] Tamsulosin HCl [Flomax] 0.4 mg PO HS 02/14/18 10/16/20 History Diphenox-Atrop 2.5-0.025 mg 1 tab PO Q6H PRN 10/16/20 10/16/20 History [Lomotil] Memantine HCl 10 mg PO BID 10/16/20 10/16/20 History Simvastatin [Zocor] 20 mg PO DAILY 10/16/20 10/16/20 History Allergies Allergy/AdvReac Type Severity Reaction Status Date / Time No Known Allergies Allergy Verified 10/16/20 20:29 Physical Exam Vitals: Vital Signs Temp Pulse Pulse Resp BP BP Pulse Ox 10/17/20 08:25 66 18 10/17/20 08:00 98.4 F 66 18 120/65 94 L 10/17/20 02: 97.5 F L 75 16 141/72 96 10/16/20 23:50 98.5 F 87 16 156/73 93 L 10/16/20 23:17 97.8 F 83 16 141/76 99 10/16/20 23:01 83 16 141/76 99 10/16/20 20:47 80 16 143/72 98 10/16/20 18:46 81 16 145/76 97 10/16/20 17:27 97.8 F 88 18 153/80 97 Intake and Output 10/16/20 10/17/20 10/17/20 22:59 06:59 14:59 Intake Total 0 Balance 0 Intake: Oral 0 Other: Voiding Method Urinal Urinal Diaper Diaper Incontinent Incontinent # Voids 1 Weight 67.585 kg PHYSICAL EXAMINATION: GENERAL: The patient is alert and oriented x3, not in any acute distress. Well developed, well nourished. HEENT: Pupils are round and equally reacting to light. EOMI. No scleral icterus. No conjunctival pallor. Normocephalic, atraumatic. No pharyngeal erythema. No thyromegaly. CARDIOVASCULAR: S1 and S2 present. No murmurs, rubs, or gallops. PULMONARY: Chest is clear to auscultation, no wheezing or crackles. ABDOMEN: Firm mild distention with right lower quadrant tenderness and left low quadrant tenderness. Patient doesn't have any rebound or rigidity. MUSCULOSKELETAL: No joint swelling or deformity. EXTREMITIES: No cyanosis, clubbing, or pedal edema. NEUROLOGICAL: Gross neurological examination did not reveal any focal deficits. SKIN: No rashes. Results CBC & Chem 7: 10/17/20 10:51 10/17/20 10:51 Labs: Abnormal Lab Results - Last 24 Hours (Table) 10/16/20 10/16/20 10/16/20 Range/Units 18:38 18:38 20:47 WBC 22.5 H (3.8-10.6) k/uL Neutrophils # 20.6 H (1.3-7.7) k/uL Lymphocytes # 0.8 L (1.0-4.8) k/uL Sodium 134 L (137-145) mmol/L Glucose 107 H (74-99) mg/dL Total Bilirubin 1.6 H (0.2-1.3) mg/dL Total Protein (6.3-8.2) g/dL Albumin (3.5-5.0) g/dL Ur Specific [place] >1.050 H (1.001-1.035) Urine Ketones 1+ H (Negative) 10/17/20 10/17/20 Range/Units 10:51 10:51 WBC 18.7 H (3.8-10.6) k/uL Neutrophils # (1.3-7.7) k/uL Lymphocytes # (1.0-4.8) k/uL Sodium 136 L (137-145) mmol/L Glucose (74-99) mg/dL Total Bilirubin (0.2-1.3) mg/dL Total Protein 5.9 L (6.3-8.2) g/dL Albumin 3.2 L (3.5-5.0) g/dL Ur Specific [place] (1.001-1.035) Urine Ketones (Negative) Thrombosis Risk Factor Assmnt - Choose All That Apply Each Risk Factor Represents 3 Points: Age 75 years or older Thrombosis Risk Factor Assessment Total Risk Factor Score: 3 Thrombosis Risk Factor Assessment Level: Moderate Risk Assessment and Plan Plan: -Colitis: Most probably infectious, secondary to constipation which is again secondary to medications that is Lomotil. Lomotil will be held and patient was continued on MiraLAX continue with Rocephin and the metronidazole gastroenterology will evaluate the patient -Benign prostatic hypertrophy -Hyperlipidemia -Hypertension holding off on antihypertensive medication because of his low normal blood pressure and hyponatremia Hyponatremia secondary to hydrochlorothiazide which will be held -DVT prophylaxis with Lovenox and GI prophylaxis Pepcid and risk and urine patient was started on Toradol for pain along with GI prophylaxis
[2020-10-17] MEDS: SODIUM CHLORIDE 0.9% 1,000 ML IV SCH (13:09)
[2020-10-17] MEDS: KETOROLAC 15 MG/ML 1 ML VIAL IVP PRN ×2 (13:09→21:49)
[2020-10-17] MEDS: polyethylene glycoL 3350 17 GM POWD.PACK PO SCH (13:09)
[2020-10-17] MEDS: FAMOTIDINE 20 MG TAB PO SCH ×2 (13:09→21:43)
[2020-10-17] MEDS ORDERED: MAGNESIUM CITRATE 296 ML BOTTLE PO ONE (14:51)
[2020-10-17] MEDS: TAMSULOSIN 0.4 MG CAP.ER.24H PO SCH (21:43)
[2020-10-17] MEDS: MEMANTINE 10 MG TAB PO SCH (21:43)
[2020-10-18] MEDS: metroNIDAZOLE-NS PMX 500 MG in SALINE 1 100ML.BAG IVPB SCH ×3 (01:23→17:30)
[2020-10-18] MEDS: SODIUM CHLORIDE 0.9% 1,000 ML IV SCH ×2 (01:24→19:03)
--- NOTE | 2020-10-18 08:06 | XR ---
EXAMINATION TYPE: XR abdomen 2V DATE OF EXAM: 10/18/2020 COMPARISON: 10/14/2019 HISTORY: Fecal impaction TECHNIQUE: One view abdominal series FINDINGS: The osseous structures are intact. The bowel gas pattern is nonspecific. Basilar subsegmental changes are seen with rib deformities. Extensive retained fecal debris throughou t the colon. 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 IMPRESSION: 1. Severe constipation correlate for fecal impaction. 2. Bibasilar atelectasis versus infiltrate.
[2020-10-18] MEDS ORDERED: NA PHOS,M-B/NA PHOS,DI-BA 133 ML ENEMA RECTAL ONE (08:13)
[2020-10-18] MEDS: ENOXAPARIN 40 MG/0.4 ML SYRINGE SQ SCH (08:58)
[2020-10-18] MEDS: polyethylene glycoL 3350 17 GM POWD.PACK PO SCH (08:58)
[2020-10-18] MEDS: ATORVASTATIN 10 MG TAB PO SCH (08:59)
[2020-10-18] MEDS: MEMANTINE 10 MG TAB PO SCH ×2 (08:59→21:33)
[2020-10-18] MEDS: KETOROLAC 15 MG/ML 1 ML VIAL IVP PRN (08:59)
[2020-10-18] MEDS: FAMOTIDINE 20 MG TAB PO SCH ×2 (08:59→21:33)
--- NOTE | 2020-10-18 10:56 | P.PN ---
Subjective Progress Note Date: 10/18/20 Principal diagnosis: colitis, stool impaction Patient is seen and examined at the bedside. Denies any abdominal pain, nausea, or vomiting. Magnesium citrate and tap water enemas ordered yesterday evening with only small bowel movement result. Abdominal x-ray done this morning showing stool burden. Objective - Vital Signs Vital signs: Vital Signs Temp 98.1 F 10/18/20 08:00 Pulse 75 10/18/20 08:00 Resp 19 10/18/20 08:00 BP 144/76 10/18/20 08:00 Pulse Ox 95 10/18/20 08:00 Intake & Output 10/17/20 10/18/20 10/18/20 18:59 06:59 18:59 Intake Total 1200 Balance 1200 Intake: Intake, IV Titration 750 Amount Sodium Chloride 0.9% 1, 600 000 ml @ 75 mls/hr IV . [id number] [facility] Rx#:[id number] cefTRIAXone 1 gm In 50 Sodium Chloride 0.9% 50 ml @ 100 mls/hr IVPB Q24H [facility] Rx#:[id number] metroNIDAZOLE-NS PMX 500 100 mg In Saline 1 100ml.bag @ 100 mls/hr IVPB Q8HR [facility] Rx#:[id number] Oral 450 Other: Voiding Method Urinal Diaper Incontinent # Voids 1 - Exam General appearance: The patient is alert, oriented, appears in no acute distress. HET: Head is normocephalic and atraumatic. Conjunctiva pink. Sclera anicteric. Neck: Supple without lymphadenopathy. Abdomen: Soft, nontender, nondistended with bowel sounds. No guarding or rigidity. Extremities: Normal skin color and turgor. No pedal edema Skin: No rashes, no jaundice Neurological: No focal deficits. Alert and oriented 3. - Labs CBC & Chem 7: 10/18/20 14:07 10/18/20 14:07 Labs: Abnormal Lab Results - Last 24 Hours (Table) 10/17/20 10/17/20 Range/Units 10:51 10:51 WBC 18.7 H (3.8-10.6) k/uL Sodium 136 L (137-145) mmol/L Total Protein 5.9 L (6.3-8.2) g/dL Albumin 3.2 L (3.5-5.0) g/dL Assessment and Plan (1) Fecal impaction Narrative/Plan: This is a pleasant 85-year-old male patient presented to the emergency room with complaints of diarrhea. CT of the abdomen was ordered in the emergency room which showed dilated rectosigmoid colon with fecal rectal impaction. Mild wall thickening suggestive of some degree of colitis. Minimal free fluid. Patient was recently seen in gastroenterology office and was found to have stool impaction with overflow. He had a recent colonoscopy within the last 2 years. He is scheduled for outpatient colonoscopy. He was given magnesium citrate and attempted a tap water enema. Patient had a small bowel movement this morning. Fleets enema 2 and GoLYTELY ordered. Repeat x-ray in the morning Current Visit: Yes Status: Acute Code(s): K56.41 - FECAL IMPACTION SNOMED Code(s): 78010388 (2) Constipation Current Visit: Yes Status: Acute Code(s): K59.00 - CONSTIPATION, UNSPECIFIED SNOMED Code(s): 62483957 (3) Colitis Narrative/Plan: Patient currently on ceftriaxone and Flagyl Current Visit: Yes Status: Acute Code(s): K52.9 - NONINFECTIVE GASTROENTERITIS AND COLITIS, UNSPECIFIED SNOMED Code(s): 43901893 Plan: 1. Supportive care 2. Fleets enema 2 3. Abdominal x-ray ordered and reviewed 4. Repeat abdominal x-ray in a.m. 5. GoLYTELY ordered 6. Diet as tolerated Thank you for this consultation, we will continue to follow Dr. Flowers I agree with the dictator's note, documented as a scribe by Hortencia Wu.
[2020-10-18] MEDS ORDERED: NA PHOS,M-B/NA PHOS,DI-BA 133 ML ENEMA RECTAL STA (11:01)
[2020-10-18] MEDS ORDERED: PEG 3350-NA SULF,BICARB,CL/KCL 4,000 ML BOTTLE PO ONE (12:57)
--- NOTE | 2020-10-18 13:39 | P.PN ---
Subjective Progress Note Date: 10/18/20 Patient is a pleasant 85-year-old gentleman who presents to the ER today via private for evaluation of abdominal pain is been persistent for 5 days. Patient reports that he's had abdominal pain and constipation he was seen at outpatient on Saturday and an x-ray was obtained. Patient reports that time pain has been getting worse she decided to the ER for further evaluation. Patient denies fever chills nausea or vomiting. Patient was referred to GI for outpatient follow-up and is scheduled to see them next week. Patient had a CT of the abdomen which showed stool retention and the possible colitis patient abdominal pain is severe right lower abdominal quadrant, sharp in nature. Patient is started on Rocephin and azithromycin 10/18/2020 Patient is seen this morning and continues to have abdominal discomfort that he states is on the lower right side of his abdomen. Patient had minimal bowel m ovements and GI seeing the patient. Fleets enemas 2 ordered. Abdominal x-ray continues to show severe constipation with fecal impaction along with bibasilar atelectasis versus infiltrate. Patient denies any shortness of breath. Patient also mentioned that he felt that he was unable to urinate although per nursing staff patient has been urinating and has been incontinent at times in a brief. PT/OT to evaluate the patient for unsteady gait and weakness patient states he has help at home with his and plans on going home. Patient is scheduled to have a colonoscopy outpatient with GI. Patient is maintained on IV ceftriaxone along with Flagyl. Review of systems: Constitutional: No reports of fatigue, fever, or chills Cardiovascular: No reports of chest pain or palpitations Respiratory: No reports of shortness of breath or cough GI: No reports of nausea, vomiting, reports constipation and feelings of fullness : No reports of dysuria, patient reports retention Neurovascular: No reports of weakness or numbness All medications have been reviewed Objective - Vital Signs Vital signs: Vital Signs Temp 98.1 F 10/18/20 08:00 Pulse 75 10/18/20 08:00 Resp 19 10/18/20 08:00 BP 144/76 10/18/20 08:00 Pulse Ox 95 10/18/20 08:00 Intake & Output 10/17/20 10/18/20 10/18/20 18:59 06:59 18:59 Intake Total 1200 Balance 1200 Intake: Intake, IV Titration 750 Amount Sodium Chloride 0.9% 1, 600 000 ml @ 75 mls/hr IV . [id number] [facility] Rx#:[id number] cefTRIAXone 1 gm In 50 Sodium Chloride 0.9% 50 ml @ 100 mls/hr IVPB Q24H [facility] Rx#:[id number] metroNIDAZOLE-NS PMX 500 100 mg In Saline 1 100ml.bag @ 100 mls/hr IVPB Q8HR [facility] Rx#:[id number] Oral 450 Other: Voiding Method Urinal Urinal Diaper Diaper Incontinent Incontinent # Voids 1 - Exam GENERAL: The patient is alert and oriented x3, not in any acute distress. Well developed, well nourished. HEENT: Pupils are round and equally reacting to light. EOMI. No scleral icterus. No conjunctival pallor. Normocephalic, atraumatic. No pharyngeal erythema. No thyromegaly. CARDIOVASCULAR: S1 and S2 present. No murmurs, rubs, or gallops. PULMONARY: Chest is clear to auscultation, no wheezing or crackles. ABDOMEN: Firm, thin built, with right lower quadrant tenderness noted on palpation. Patient doesn't have any rebound or rigidity. MUSCULOSKELETAL: No joint swelling or deformity. EXTREMITIES: No cyanosis, clubbing, or pedal edema. NEUROLOGICAL: Gross neurological examination did not reveal any focal deficits. SKIN: No rashes. - Labs CBC & Chem 7: 10/17/20 10:51 10/17/20 10:51 Assessment and Plan Assessment: -Colitis: Most probably infectious, secondary to constipation which is again secondary to medications that is Lomotil. Lomotil will be held and patient was continued on MiraLAX. Fleets enema 2 ordered per GI. Patient is maintained on IV ceftriaxone along with Flagyl. -Benign prostatic hypertrophy -Hyperlipidemia -Hypertension holding off on antihypertensive medication because of his low normal blood pressure and hyponatremia -Hyponatremia secondary to hydrochlorothiazide which will be held, will repeat labs -DVT prophylaxis with Lovenox -GI prophylaxis Pepcid -Full code Plan: We'll repeat labs and continue to monitor vital signs and possibly resume home medications once labs are resulted. PT/OT to evaluate the patient as the plan is to go home with although patient has unsteady gait and will await PT evaluation. Patient is receiving enemas per GI with one large bowel movement noted per nursing staff. Will monitor closely. Possible discharge in 24 hours.
[2020-10-18 14:40] LABS: Basophils % (A) 0 %; Eosinophils # (A) 0.2 k/uL (0-0.7); Eosinophils % (A) 1 %; HCT 46.3 % (39.0-53.0); HGB 14.9 gm/dL (13.0-17.5); Lymphocytes # (A) 1.2 k/uL (1.0-4.8); Lymphocytes % (A) 7 %; MCH 30.3 pg (25.0-35.0); MCHC 32.2 g/dL (31.0-37.0); MCV 94.1 fL (80.0-100.0); Mean Platelet Volume 8.4; Monocytes # (A) 0.8 k/uL (0-1.0); Monocytes % (A) 4 %; Neutrophils # (A) 14.8 k/uL (1.3-7.7); Neutrophils % (A) 87 %; Platelet Count 210 k/uL (150-450); RBC 4.91 m/uL (4.30-5.90); WBC 17.1 k/uL (3.8-10.6)
[2020-10-18 15:11] LABS: African American GFR (CKD) 88 (>60 ml/min/1.73 sqM); Anion Gap 12 mmol/L; Blood Urea Nitrogen 21 mg/dL (9-20); Calcium 9.2 mg/dL (8.4-10.2); Carbon Dioxide 23 mmol/L (22-30); Chloride 101 mmol/L (98-107); Glucose 102 mg/dL (74-99); Non-African American GFR(CKD) 76 (>60 ml/min/1.73 sqM); Potassium 4.4 mmol/L (3.5-5.1); Sodium 136 mmol/L (137-145)
[2020-10-18] MEDS: TAMSULOSIN 0.4 MG CAP.ER.24H PO SCH (21:33)
[2020-10-19] MEDS: metroNIDAZOLE-NS PMX 500 MG in SALINE 1 100ML.BAG IVPB SCH ×2 (02:04→09:56)
[2020-10-19] MEDS: SODIUM CHLORIDE 0.9% 1,000 ML IV SCH (03:34)
--- NOTE | 2020-10-19 06:39 | P.CONS ---
History of Present Illness - Reason for Consult Consult date: 10/17/20 Constipation Requesting physician: Mirian Ferguson - Chief Complaint Diarrhea - History of Present Illness 85-year-old male who presented to the hospital due to complaints of diarrhea. The patient had previously been seen in the GI clinic reporting 3 weeks of liquid diarrhea with episodes of incontinence. The patient had an x-ray of the abdomen ordered which was significant for a significant stool burden suggestive of overflow incontinence. The patient was called with messages left instructing the patient to take Fleet enema as followed by a bowel findings. However, the patient ended up presenting to the hospital with similar complaints. He underw ent CT scan of the abdomen showing a dilated rectosigmoid colon with fecal debris suggestive of impaction and mild wall thickening digestive of colitis. The patient was started on antibiotic therapy. Previously he had undergone colonoscopy in 02/18/2018 with findings of sigmoid diverticulosis. Review of Systems REVIEW OF SYSTEMS: CONSTITUTIONAL: Denies any fevers, chills, weight change or fatigue. CARDIOVASCULAR: Denies any chest pain, palpitations high or low blood pressures RESPIRATORY: Denies any shortness of breath, hemoptysis or cough. GENITOURINARY: No dysuria or hematuria. MUSCULOSKELETAL: No weakness reported. SKIN: Denies any new rashes or lesions, jaundice or pallor. PSYCHIATRIC: Denies any depression or anxiety. NEUROLOGY: Denies headache, denies any new focal deficits. EARS/NOSE/THROAT: No recent hearing change, congestion, nasal discharge or sore throat. EYES: No pain in eyes, discharge or change in vision. GASTROINTESTINAL: As per HPI. 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 STATES CLOT THAT TRAVELLED TO HIS BACK AFTER CVA WITH SURGERY TO REMOVE., BPH, STATES HE LIMPS AND USES A CANE PRN.HX OF COLON POLYPS. History of Any Multi-Drug Resistant Organisms: None Reported Additional Past Surgical History / Comment(s): SURGERY TO REMOVE CLOT FROM BACK, SEVERAL PROCEDURES AT [facility] FOLLOWING CVA ELBOW SURGERY, RIGHT ANKLE FUSED. Past Anesthesia/Blood Transfusion Reactions: No Reported Reaction Past Psychological History: No Psychological Hx Reported Smoking Status: Never smoker Past Alcohol Use History: Occasional Past Drug Use History: None Reported - Past Family History Mother Additional Family Medical History / Comment(s): ALZHEIMERS Medications and Allergies Home Medications Medication Instructions Recorded Confirmed Type Bisoprolol-Hctz 5-6.25 mg [Ziac 1 tab PO DAILY 02/14/18 10/16/20 History 5-6.25] Multivitamins, Thera [Multivitamin 1 tab PO DAILY 02/14/18 10/16/20 History (formulary)] Tamsulosin HCl [Flomax] 0.4 mg PO HS 02/14/18 10/16/20 History Diphenox-Atrop 2.5-0.025 mg 1 tab PO Q6H PRN 10/16/20 10/16/20 History [Lomotil] Memantine HCl 10 mg PO BID 10/16/20 10/16/20 History Simvastatin [Zocor] 20 mg PO DAILY 10/16/20 10/16/20 History Allergies Allergy/AdvReac Type Severity Reaction Status Date / Time No Known Allergies Allergy Verified 10/16/20 20:29 Physical Exam Vitals: Vital Signs Temp Pulse Pulse Resp BP BP Pulse Ox 10/17/20 08:25 66 18 10/17/20 08:00 98.4 F 66 18 120/65 94 L 10/17/20 02: 97.5 F L 75 16 141/72 96 10/16/20 23:50 98.5 F 87 16 156/73 93 L 10/16/20 23:17 97.8 F 83 16 141/76 99 10/16/20 23:01 83 16 141/76 99 10/16/20 20:47 80 16 143/72 98 10/16/20 18:46 81 16 145/76 97 10/16/20 17:27 97.8 F 88 18 153/80 97 Intake and Output 10/16/20 10/17/20 10/17/20 22:59 06:59 14:59 Intake Total 0 Balance 0 Intake: Oral 0 Other: Voiding Method Urinal Urinal Diaper Diaper Incontinent Incontinent # Voids 1 Weight 67.585 kg On physical examination, patient appears comfortable in no apparent distress. HEAD: Normocephalic, atraumatic. EYES: No scleral icterus. No conjunctival injection. MOUTH: No lesions, tongue midline. NECK: Trachea midline, no gross abnormalities. CHEST: Clear to auscultation with no wheezing or rhonchi appreciated. HEART: Regular rate and rhythm. ABDOMEN: Soft, moderately distended. Bowel sounds are positive. No organomegaly. No guarding or rigidity. EXTREMITIES: Bilateral pedal edema. SKIN: No rashes, no jaundice. NEUROLOGIC: Alert and oriented x3. No focal deficits. Results CBC & Chem 7: 10/18/20 14:07 10/18/20 14:07 Labs: Abnormal Lab Results - Last 24 Hours (Table) 10/16/20 10/16/20 10/16/20 Range/Units 18:38 18:38 20:47 WBC 22.5 H (3.8-10.6) k/uL Neutrophils # 20.6 H (1.3-7.7) k/uL Lymphocytes # 0.8 L (1.0-4.8) k/uL Sodium 134 L (137-145) mmol/L Glucose 107 H (74-99) mg/dL Total Bilirubin 1.6 H (0.2-1.3) mg/dL Total Protein (6.3-8.2) g/dL Albumin (3.5-5.0) g/dL Ur Specific [place] >1.050 H (1.001-1.035) Urine Ketones 1+ H (Negative) 10/17/20 10/17/20 Range/Units 10:51 10:51 WBC 18.7 H (3.8-10.6) k/uL Neutrophils # (1.3-7.7) k/uL Lymphocytes # (1.0-4.8) k/uL Sodium 136 L (137-145) mmol/L Glucose (74-99) mg/dL Total Bilirubin (0.2-1.3) mg/dL Total Protein 5.9 L (6.3-8.2) g/dL Albumin 3.2 L (3.5-5.0) g/dL Ur Specific [place] (1.001-1.035) Urine Ketones (Negative) CT scan - abdomen: report reviewed (CT scan of the abdomen showing a dilated rectosigmoid colon with fecal debris suggestive of impaction and mild wall thickening suggestive of colitis. ) Assessment and Plan (1) Constipation Narrative/Plan: 85-year-old male presenting to the hospital with diarrhea and abdominal pain. Currently receiving treatment for colitis the patient was found to have a significant stool burden on CT scan of the abdomen with symptoms likely related to overflow incontinence, differential includes colitis, bacterial or viral infection or other etiology. Current Visit: Yes Status: Acute Code(s): K59.00 - CONSTIPATION, UNSPECIFIED SNOMED Code(s): 72097493 (2) Colitis Current Visit: Yes Status: Acute Code(s): K52.9 - NONINFECTIVE GASTROENTERITIS AND COLITIS, UNSPECIFIED SNOMED Code(s): 30091931 (3) Fecal impaction Current Visit: Yes Status: Acute Code(s): K56.41 - FECAL IMPACTION SNOMED Code(s): 02859748 Plan: Supportive care Okay for liquid diet Tap water enema x2 ordered Magnesium citrate ordered X-ray of the abdomen ordered for assessment of stool burden tomorrow Continue other medical management per primary team Patient has a colonoscopy scheduled in early October Thank you for allowing us to participate in the care of the patient
--- NOTE | 2020-10-19 09:15 | XR ---
2 view abdomen HISTORY: Constipation, fecal impaction 2 views the abdomen on 3 images correlated prior exam dated 10/18/2020 Lung bases show some probable subsegmental basilar atelectatic changes or scarring. There is a scolio tic curvature to the spine, degenerative disc changes are present in the visualized spine, bone polygraph examiner alization is reduced. There is retained fecal debris present in the transverse colon and rectum as on previous exam. No evident pneumoperitoneum or bowel obstruction. IMPRESSION: Essentially stable exam. Correlate for fecal impaction.
[2020-10-19] MEDS: MEMANTINE 10 MG TAB PO SCH (09:56)
[2020-10-19] MEDS: polyethylene glycoL 3350 17 GM POWD.PACK PO SCH (09:57)
[2020-10-19] MEDS: ATORVASTATIN 10 MG TAB PO SCH (09:57)
[2020-10-19] MEDS: FAMOTIDINE 20 MG TAB PO SCH (09:57)
[2020-10-19] MEDS: ENOXAPARIN 40 MG/0.4 ML SYRINGE SQ SCH (09:57)
--- NOTE | 2020-10-19 11:10 | P.PN ---
Subjective Progress Note Date: 10/19/20 Principal diagnosis: colitis, stool impaction Patient is seen and examined at the bedside. Denies any abdominal pain, nausea, or vomiting. GoLYTELY ordered for patient yesterday, he only drank approximately half of the drug. He states he's had several bowel movements. Repeat x-rays shows continued stool impaction. Objective - Vital Signs Vital signs: Vital Signs Temp 97.9 F 10/19/20 08:00 Pulse 83 10/19/20 08:00 Resp 17 10/19/20 08:00 BP 100/56 10/19/20 08:00 Pulse Ox 98 10/19/20 08:00 Intake & Output 10/18/20 10/19/20 10/19/20 18:59 06:59 18:59 Intake Total 450 Output Total 200 200 Balance -200 250 Intake: Oral 450 Output: Stool 200 200 Other: Voiding Method Urinal Urinal Diaper Diaper Incontinent Incontinent # Voids 1 # Bowel Movements 2 2 - Exam General appearance: The patient is alert, oriented, appears in no acute distress. HET: Head is normocephalic and atraumatic. Conjunctiva pink. Sclera anicteric. Neck: Supple without lymphadenopathy. Abdomen: Soft, nontender, nondistended with bowel sounds. No guarding or rigidity. Extremities: Normal skin color and turgor. No pedal edema Skin: No rashes, no jaundice Neurological: No focal deficits. Alert and oriented 3. - Labs CBC & Chem 7: 10/18/20 14:07 10/18/20 14:07 Labs: Abnormal Lab Results - Last 24 Hours (Table) 10/18/20 10/18/20 Range/Units 14:07 14:07 WBC 17.1 H (3.8-10.6) k/uL Neutrophils # 14.8 H (1.3-7.7) k/uL Sodium 136 L (137-145) mmol/L BUN 21 H (9-20) mg/dL Glucose 102 H (74-99) mg/dL Assessment and Plan (1) Fecal impaction Narrative/Plan: This is a pleasant 85-year-old male patient presented to the emergency room with complaints of diarrhea. CT of the abdomen was ordered in the emergency room which showed dilated rectosigmoid colon with fecal rectal impaction. Mild wall thickening suggestive of some degree of colitis. Minimal free fluid. Patient was recently seen in gastroenterology office and was found to have stool impaction with overflow. He had a recent colonoscopy within the last 2 years. He is scheduled for outpatient colonoscopy. He was given magnesium citrate and attempted a tap water enema. Patient had a small bowel movement this morning. Fleets enema 2 and GoLYTELY ordered. Repeat x-ray in the morning still showing stool impaction no evidence of pneumoperitoneum or bowel obstruction. Current Visit: Yes Status: Acute Code(s): K56.41 - FECAL IMPACTION SNOMED Code(s): 15291489 (2) Constipation Current Visit: Yes Status: Acute Code(s): K59.00 - CONSTIPATION, UNSPECIFIED SNOMED Code(s): 23080661 (3) Colitis Narrative/Plan: Patient currently on ceftriaxone and Flagyl Current Visit: Yes Status: Acute Code(s): K52.9 - NONINFECTIVE GASTROENTERITIS AND COLITIS, UNSPECIFIED SNOMED Code(s): 46530451 Plan: 1. Supportive care 2. Status post fleets enema 3. Abdominal x-ray ordered and reviewed 4. GoLYTELY ordered, continue to finish 5. Diet as tolerated 6. Patient may be discharged home with follow-up with gastroenterology Thank you for this consultation Dr. Flowers I agree with the dictator's note, documented as a scribe by Hortencia Wu.
[2020-10-19 15:17] VITALS: BP 120/62; PULSE 73; RESP 18; TEMP 97.5
--- NOTE | 2020-10-19 15:44 | P.DS ---
Providers Date of admission: 10/16/20 21:11 Expected date of discharge: 10/19/20 Attending physician: Dick Lam MD Consults: 10/16/20 21:11 Consult Physician Urgent Consulting Provider: Yanet Raya Consult Reason/Comments: colitis Do you want consulting provider notified?: Yes Primary care physician: Josh Mcallister [place] [facility] Course: final diagnosis -Colitis: Most probably infectious, secondary to constipation which is again secondary to medications that is Lomotil -Benign prostatic hypertrophy -Hyperlipidemia -Hypertension -Hyponatremia secondary to hydrochlorothiazide -DVT prophylaxis -GI prophylaxis -Full code Discharge disposition Patient is being discharged in a stable condition with guarded prognosis to home. Patient will continue with home care in the outpatient setting Patient will follow-up with Dr. Mcallister in the outpatient setting upon discharge. Patient also instructed to continue keeping appointment with GI for outpatient colonoscopy next week. Total time taken is greater than 35 minutes. Hospital course Patient is a pleasant 85-year-old gentleman who presents to the ER today via private for evaluation of abdominal pain is been persistent for 5 days. Patient reports that he's had abdominal pain and constipation he was seen at outpatient on Saturday and an x-ray was obtained. Patient reports that time pain has been getting worse she decided to the ER for further evaluation. Patient denies fever chills nausea or vomiting. Patient was referred to GI for outpatient follow-up and is scheduled to see them next week. Patient had a CT of the abdomen which showed stool retention and the possible colitis patient abdominal pain is severe right lower abdominal quadrant, sharp in nature. Patient is started on Rocephin and azithromycin 10/19/2020 Patient was started on GoLYTELY along with laxatives for continued stool burden and per nursing staff and patient he has had multiple bowel movements. GI following and patient is scheduled to undergo colonoscopy in the outpatient setting. Patient instructed to discontinue Lomotil as he had been taking regularly. Patient's hydrochlorothiazide was also discontinued. Patient was seen and evaluated by PT/OT therapy and is stable for discharge to home. She we'll continue with home care in the outpatient setting. Currently no reports of chest pain, shortness of breath, or palpitations. Patient is afebrile. No reports of nausea or vomiting and patient is tolerating diet. Patient will be discharged home today. On exam vital signs are stable. Cardio S1, S2 are muffled. Respiratory system shows diminished breath sounds at the bases with no wheezing or rhonchi noted. Abdomen is soft and nontender. Nervous system shows no focal deficits. Please refer to medication reconciliation sheet for a list of medications. Patient Condition at Discharge: Stable Plan - Discharge Summary Discharge Rx Participant: Yes New Discharge Prescriptions: New polyethylene glycoL 3350 [Miralax] 17 gm PO DAILY 30 Days #30 powd.pack Lactulose [Cephulac] 30 gm PO DAILY 30 Days #30 ml Continue Tamsulosin HCl [Flomax] 0.4 mg PO HS Multivitamins, Thera [Multivitamin (formulary)] 1 tab PO DAILY Simvastatin [Zocor] 20 mg PO DAILY Memantine HCl 10 mg PO BID Discontinued Bisoprolol-Hctz 5-6.25 mg [Ziac 5-6.25] 1 tab PO DAILY Diphenox-Atrop 2.5-0.025 mg [Lomotil] 1 tab PO Q6H PRN PRN Reason: Diarrhea Discharge Medication List Multivitamins, Thera [Multivitamin (formulary)] 1 tab PO DAILY 02/14/18 [History] Tamsulosin HCl [Flomax] 0.4 mg PO HS 02/14/18 [History] Memantine HCl 10 mg PO BID 10/16/20 [History] Simvastatin [Zocor] 20 mg PO DAILY 10/16/20 [History] Lactulose [Cephulac] 30 gm PO DAILY 30 Days #30 ml 10/19/20 [Rx] polyethylene glycoL 3350 [Miralax] 17 gm PO DAILY 30 Days #30 powd.pack 10/19/20 [Rx] Follow up Appointment(s)/Referral(s): Josh Mcallister MD [Primary Care Provider] - 11/15/20 1:00 pm [facility], [NON-STAFF] - Vikas Flowers MD [STAFF PHYSICIAN] - 11/08/20 4:30 pm Activity/Diet/Wound Care/Special Instructions: Activity limited until follow-up Follow-up with primary care provider upon discharge continue current diet follow up with GI as scheduled for colonoscopy Discharge Disposition: HOME WITH HOME HEALTH SERVICES
== END 2020-10-19 16:38 | disposition home health service (06) | DRG 392 ==
LOC: EC 17:17 → 4SSUR 21:11
PROVIDERS: ADMIT Internal Medicine; ATTEND Internal Medicine
DX: A09 Infectious gastroenteritis and colitis, unspecified (principal); E87.1 Hypo-osmolality and hyponatremia; K56.49 Other impaction of intestine; I10 Essential (primary) hypertension; N42.9 Disorder of prostate, unspecified; N40.0 Benign prostatic hyperplasia without lower urinary tract symptoms; K56.41 Fecal impaction; T50.2X5A Adverse effect of carbonic-anhydrase inhibitors, benzothiadiazides and other diuretics, initial encounter; E78.5 Hyperlipidemia, unspecified; Z20.822 Contact with and (suspected) exposure to COVID-19; Z86.73 Personal history of transient ischemic attack (TIA), and cerebral infarction without residual deficits; Z79.899 Other long term (current) drug therapy; Z87.19 Personal history of other diseases of the digestive system; Z86.010 Personal history of colon polyps; Z87.891 Personal history of nicotine dependence
CPT/HCPCS: 36415; 74019; 74177; 80048; 80053; 81003; 82150; 83605; 83690; 85025; 85027; 87635; 96361; 96374; 96375; 99285

== ENCOUNTER 2020-10-20 13:45 | Inpatient (IN) | payer MEDICARE ==
[2020-10-20] MEDS ORDERED: SODIUM CHLORIDE 0.9% 1,000 ML IV ONE ×2 (14:17→19:11)
--- NOTE | 2020-10-20 14:18 | ED ---
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 Patient states he is recently admitted for constipation. Patient states that he also had a colitis at that time. Patient was admitted for 3 days of discharge he states he still has not had any movements. Patient states that he feels nauseated his abdomen feels distended. He denies vomiting. Patient denies chest pain, denies dyspnea, leg swelling, denies fever, cough, congestion. Patient has no additional complaints. Initially pt states he has not had a bowel movement but told Dr Goodson he has a "small one" since discharge. (Brit Wilson) - Related Data Home Medications Medication Instructions Recorded Confirmed Multivitamins, Thera [Multivitamin 1 tab PO DAILY 02/14/18 10/20/20 (formulary)] Tamsulosin HCl [Flomax] 0.4 mg PO HS 02/14/18 10/20/20 Memantine HCl 10 mg PO BID 10/16/20 10/20/20 Simvastatin [Zocor] 20 mg PO DAILY 10/16/20 10/20/20 Previous Rx's Medication Instructions Recorded Lactulose [Cephulac] 30 gm PO DAILY 30 Days #30 ml 10/19/20 polyethylene glycoL 3350 [Miralax] 17 gm PO DAILY 30 Days #30 10/19/20 powd.pack Apixaban [Eliquis Starter Pack 0 mg PO DIRECTED 30 Days #1 pack 10/24/20 (for VTE)] Allergies Allergy/AdvReac Type Severity Reaction Status Date / Time No Known Allergies Allergy Verified 10/20/20 18:16 Review of Systems ROS Other: All systems not noted in ROS Statement are negative. <Brit Wilson - Last Filed: 10/20/20 19:30> ROS Other: All systems not noted in ROS Statement are negative. <Yanique Haddad - Last Filed: 10/25/20 14:47> ROS Statement: Those systems with pertinent positive or pertinent negative responses have been documented in the HPI. Past Medical History Past Medical History: CVA/TIA, Hypertension, Prostate Disorder Additional Past Medical History / Comment(s): CVA (195)- STATES RIGHT ARM & LEG WEAKNESS. STATES CLOT THAT TRAVELLED TO HIS BACK AFTER CVA WITH SURGERY TO REMOVE., BPH, STATES HE LIMPS AND USES A CANE PRN.HX OF COLON POLYPS. History of Any Multi-Drug Resistant Organisms: None Reported Additional Past Surgical History / Comment(s): SURGERY TO REMOVE CLOT FROM BACK, SEVERAL PROCEDURES AT [facility] FOLLOWING CVA ELBOW SURGERY, RIGHT ANKLE FUSED. Past Anesthesia/Blood Transfusion Reactions: No Reported Reaction Past Psychological History: No Psychological Hx Reported Smoking Status: Never smoker Past Alcohol Use History: Occasional Past Drug Use History: None Reported - Past Family History Mother Additional Family Medical History / Comment(s): ALZHEIMERS <Brit Wilson - Last Filed: 10/20/20 19:30> General Exam Limitations: physical limitation <Brit Wilson - Last Filed: 10/20/20 19:30> - General Exam Comments Initial Comments: General: The patient is awake and alert, in no distress Eye: +3 mm pupils are equal, round and reactive to light, extra-ocular movements are intact. No nystagmus. There is normal conjunctiva bilaterally. No signs of icterus. Ears, nose, mouth and throat: There are moist mucous membranes and no oral lesions. Neck: The neck is supple, there is no tenderness or JVD. Cardiovascular: There is a regular rate and rhythm. No murmur, rub or gallop is appreciated. Respiratory: Lungs are clear to auscultation, respirations are non-labored, breath sounds are equal. No wheezes, stridor, rales, or rhonchi. Gastrointestinal: Distended abdomen, diffuse tenderness of the abdomen especially the RLQ, abdomen without masses or organomegaly noted. There is no rebound or guarding present. Musculoskeletal: Normal ROM, no tenderness. Strength 5/5. Sensation intact. Radial pulses equal bilaterally 2+. Neurological: A&O x 3. CN II-XII intact grossly, There are no obvious motor or sensory deficits. Coordination appears grossly intact. Speech is normal. Skin: Skin is warm and dry and no rashes or lesions are noted. Psychiatric: Cooperative, appropriate mood & affect, normal judgment. (Brit Wilson) Course <Yanique Haddad - Last Filed: 10/25/20 14:47> Vital Signs 10/20/20 10/20/20 10/20/20 13:46 13:50 14:00 Temperature 98.1 F Pulse Rate 105 H Respiratory 18 Rate Blood Pressure 148/90 158/92 O2 Sat by Pulse 95 96 94 L Oximetry 10/20/20 10/20/20 10/20/20 14:30 15:00 15:30 Temperature Pulse Rate 99 Respiratory 18 18 Rate Blood Pressure 151/87 150/79 151/77 O2 Sat by Pulse 94 L 92 L 93 L Oximetry 10/20/20 10/20/20 10/20/20 16:00 16:30 17:00 Temperature Pulse Rate Respiratory Rate Blood Pressure 143/69 132/71 O2 Sat by Pulse 93 L 92 L Oximetry 10/20/20 10/20/20 17:30 18:30 Temperature Pulse Rate 92 95 Respiratory 18 18 Rate Blood Pressure 124/70 132/69 O2 Sat by Pulse 94 L 92 L Oximetry - Reevaluation(s) Reevaluation #1: Spoke with Dr. Dean - will be down to talk to patient about surgery, risks 10/20/20 17:00 (Yanique Haddad) Medical Decision Making - Lab Data Result diagrams: 10/20/20 14:51 10/20/20 14:51 <Brit Wilson - Last Filed: 10/20/20 19:30> - Lab Data Result diagrams: 10/25/20 03:30 10/25/20 03:30 <Yanique Haddad - Last Filed: 10/25/20 14:47> - Medical Decision Making Patient presenting for constipation/urinary retention. Carranza placed. CT revealed free air, coliits, constipation. Patient has evidence of CT of abdomen concerning for PE. Bilateral PE, right greater than left. Troponin is elevated and BNP elevated. Concern for strain but there is no evidence of the CT per radiologist. Vascular consulted by Dr. Hardy who evaluated patient in the ER. Rocephin and metronidazole were initiated in the ER. Patient was taken to the operating room for exploratory laparotomy. Patient agreeable to this care plan and admission. (Brit Wilson) I was available for consultation in the emergency department. The history and physical exam were done by the midlevel provider. I was consulted for this patients care. I reviewed the case with the midlevel provider and based on their presentation of the patient, I agree with the assessment, medical decision making and plan of care as documented. I evaluated the patient myself. Updated patient in regards to findings. Wishing to pursue all treatment options. Spoke with Dr. Dean. Will hold anticoagulation as patient will be taken for surgery. Chart was dictated using [employer] dictation software. Attempts were made to corre ct any dictation errors however some typographical errors may persist. Patient was seen during a national state of emergency due to the Covid-19 pandemic. (Yanique Haddad) - Lab Data Lab Results 10/20/20 10/20/20 10/20/20 Range/Units 14:51 14:51 14:51 WBC 4.1 (3.8-10.6) k/uL RBC 4.39 (4.30-5.90) m/uL Hgb 13.2 (13.0-17.5) gm/dL Hct 39.4 (39.0-53.0) % MCV 89.8 (80.0-100.0) fL MCH 30.0 (25.0-35.0) pg MCHC 33.4 (31.0-37.0) g/dL RDW 13.2 (11.5-15.5) % Plt Count 102 L D (150-450) k/uL MPV 9.6 Neutrophils % 88 % Lymphocytes % 5 % Monocytes % 5 % Eosinophils % 1 % Basophils % 0 % Neutrophils # 3.6 (1.3-7.7) k/uL Lymphocytes # 0.2 L (1.0-4.8) k/uL Monocytes # 0.2 (0-1.0) k/uL Eosinophils # 0.0 (0-0.7) k/uL Basophils # 0.0 (0-0.2) k/uL PT (9.0-12.0) sec INR (<1.2) APTT (22.0-30.0) sec Sodium 135 L (137-145) mmol/L Potassium 4.6 (3.5-5.1) mmol/L Chloride 102 (98-107) mmol/L Carbon Dioxide 25 (22-30) mmol/L Anion Gap 8 mmol/L BUN 30 H (9-20) mg/dL Creatinine 0.95 (0.66-1.25) mg/dL Est GFR (CKD-EPI)AfAm 85 (>60 ml/min/1.73 sqM) Est GFR (CKD-EPI)NonAf 73 (>60 ml/min/1.73 sqM) Glucose 116 H (74-99) mg/dL Plasma Lactic Acid Santosh (0.7-2.0) mmol/L Calcium 9.1 (8.4-10.2) mg/dL Total Bilirubin 1.1 (0.2-1.3) mg/dL AST 31 (17-59) U/L ALT 13 (4-49) U/L Alkaline Phosphatase 106 (38-126) U/L Troponin I (0.000-0.034) ng/mL NT-Pro-B Natriuret Pep pg/mL Total Protein 6.1 L (6.3-8.2) g/dL Albumin 3.3 L (3.5-5.0) g/dL Urine Color Dark Brown Urine Appearance Clear (Clear) Urine pH 5.0 (5.0-8.0) Ur Specific [place] 1.033 (1.001-1.035) Urine Protein Trace H (Negative) Urine Glucose (UA) Negative (Negative) Urine Ketones Trace H (Negative) Urine Blood Negative (Negative) Urine Nitrite Negative (Negative) Urine Bilirubin 1+ H (Negative) Urine Urobilinogen 2.0 (<2.0) mg/dL Ur Leukocyte Esterase Trace H (Negative) Urine RBC 1 (0-5) /hpf Urine WBC 1 (0-5) /hpf Ur Squamous Epith Cells <1 (0-4) /hpf Urine Bacteria Rare H (None) /hpf Hyaline Casts 9 H (0-2) /lpf Urine Mucus Occasional H (None) /hpf Urine Sperm Occasional H (None) /hpf 10/20/20 10/20/20 10/20/20 Range/Units 14:51 17:13 17:13 WBC (3.8-10.6) k/uL RBC (4.30-5.90) m/uL Hgb (13.0-17.5) gm/dL Hct (39.0-53.0) % MCV (80.0-100.0) fL MCH (25.0-35.0) pg MCHC (31.0-37.0) g/dL RDW (11.5-15.5) % Plt Count (150-450) k/uL MPV Neutrophils % % Lymphocytes % % Monocytes % % Eosinophils % % Basophils % % Neutrophils # (1.3-7.7) k/uL Lymphocytes # (1.0-4.8) k/uL Monocytes # (0-1.0) k/uL Eosinophils # (0-0.7) k/uL Basophils # (0-0.2) k/uL PT 12.3 H (9.0-12.0) sec INR 1.2 H (<1.2) APTT 26.9 (22.0-30.0) sec Sodium (137-145) mmol/L Potassium (3.5-5.1) mmol/L Chloride (98-107) mmol/L Carbon Dioxide (22-30) mmol/L Anion Gap mmol/L BUN (9-20) mg/dL Creatinine (0.66-1.25) mg/dL Est GFR (CKD-EPI)AfAm (>60 ml/min/1.73 sqM) Est GFR (CKD-EPI)NonAf (>60 ml/min/1.73 sqM) Glucose (74-99) mg/dL Plasma Lactic Acid Santosh 1.5 (0.7-2.0) mmol/L Calcium (8.4-10.2) mg/dL Total Bilirubin (0.2-1.3) mg/dL AST (17-59) U/L ALT (4-49) U/L Alkaline Phosphatase (38-126) U/L Troponin I 0.045 H* (0.000-0.034) ng/mL NT-Pro-B Natriuret Pep pg/mL Total Protein (6.3-8.2) g/dL Albumin (3.5-5.0) g/dL Urine Color Urine Appearance (Clear) Urine pH (5.0-8.0) Ur Specific [place] (1.001-1.035) Urine Protein (Negative) Urine Glucose (UA) (Negative) Urine Ketones (Negative) Urine Blood (Negative) Urine Nitrite (Negative) Urine Bilirubin (Negative) Urine Urobilinogen (<2.0) mg/dL Ur Leukocyte Esterase (Negative) Urine RBC (0-5) /hpf Urine WBC (0-5) /hpf Ur Squamous Epith Cells (0-4) /hpf Urine Bacteria (None) /hpf Hyaline Casts (0-2) /lpf Urine Mucus (None) /hpf Urine Sperm (None) /hpf 10/20/20 Range/Units 17:13 WBC (3.8-10.6) k/uL RBC (4.30-5.90) m/uL Hgb (13.0-17.5) gm/dL Hct (39.0-53.0) % MCV (80.0-100.0) fL MCH (25.0-35.0) pg MCHC (31.0-37.0) g/dL RDW (11.5-15.5) % Plt Count (150-450) k/uL MPV Neutrophils % % Lymphocytes % % Monocytes % % Eosinophils % % Basophils % % Neutrophils # (1.3-7.7) k/uL Lymphocytes # (1.0-4.8) k/uL Monocytes # (0-1.0) k/uL Eosinophils # (0-0.7) k/uL Basophils # (0-0.2) k/uL PT (9.0-12.0) sec INR (<1.2) APTT (22.0-30.0) sec Sodium (137-145) mmol/L Potassium (3.5-5.1) mmol/L Chloride (98-107) mmol/L Carbon Dioxide (22-30) mmol/L Anion Gap mmol/L BUN (9-20) mg/dL Creatinine (0.66-1.25) mg/dL Est GFR (CKD-EPI)AfAm (>60 ml/min/1.73 sqM) Est GFR (CKD-EPI)NonAf (>60 ml/min/1.73 sqM) Glucose (74-99) mg/dL Plasma Lactic Acid Santosh (0.7-2.0) mmol/L Calcium (8.4-10.2) mg/dL Total Bilirubin (0.2-1.3) mg/dL AST (17-59) U/L ALT (4-49) U/L Alkaline Phosphatase (38-126) U/L Troponin I (0.000-0.034) ng/mL NT-Pro-B Natriuret Pep 4270 pg/mL Total Protein (6.3-8.2) g/dL Albumin (3.5-5.0) g/dL Urine Color Urine Appearance (Clear) Urine pH (5.0-8.0) Ur Specific [place] (1.001-1.035) Urine Protein (Negative) Urine Glucose (UA) (Negative) Urine Ketones (Negative) Urine Blood (Negative) Urine Nitrite (Negative) Urine Bilirubin (Negative) Urine Urobilinogen (<2.0) mg/dL Ur Leukocyte Esterase (Negative) Urine RBC (0-5) /hpf Urine WBC (0-5) /hpf Ur Squamous Epith Cells (0-4) /hpf Urine Bacteria (None) /hpf Hyaline Casts (0-2) /lpf Urine Mucus (None) /hpf Urine Sperm (None) /hpf Critical Care Time Critical Care Time: Yes <Yanique Haddad - Last Filed: 10/25/20 14:47> Critical Care Time: 35 minutes for consultation with vascular surgeon and general surgeon. (Yanique So) Disposition Is patient prescribed a controlled substance at d/c from ED?: No Time of Disposition: 17:53 Decision to Admit Reason: Admit from EC Decision Date: 10/20/20 Decision Time: 17:53 <Brit Wilson - Last Filed: 10/20/20 19:30> <Yanique Haddad - Last Filed: 10/25/20 14:47> Clinical Impression: Urinary retention, Constipation, Free intraperitoneal air, Bowel perforation, Pulmonary embolism Disposition: ADMITTED IP TO THIS [facility] Condition: Serious
[2020-10-20] MEDS: SODIUM CHLORIDE 0.9% 1,000 ML IV SCH (14:58)
[2020-10-20 15:09] LABS: Appearance,Urine Clear (Clear); Bacteria,Urine Rare /hpf; Bilirubin,Urine 1+ (Negative); Blood,Urine Negative (Negative); Color,Urine Dark Brown; Glucose,Urine (UA) Negative (Negative); Hyaline Casts,Urine 9 /lpf (0-2); Ketones,Urine Trace (Negative); Leukocyte Esterase,Urine Trace (Negative); Mucus,Urine Occasional /hpf; Nitrite,Urine Negative (Negative); Protein,Urine Trace (Negative); RBC,Urine 1 /hpf (0-5); Specific Gravity,Urine 1.033 (1.001-1.035); Sperm,Urine Occasional /hpf; Squamous Epithelial Cell,Urine <1 /hpf (0-4); WBC,Urine 1 /hpf (0-5)
[2020-10-20 15:16] LABS: Albumin 3.3 g/dL (3.5-5.0); Calcium 9.1 mg/dL (8.4-10.2); Potassium 4.6 mmol/L (3.5-5.1); Total Bilirubin 1.1 mg/dL (0.2-1.3); Total Protein 6.1 g/dL (6.3-8.2)
[2020-10-20 15:21] LABS: Basophils % (A) 0 %; Eosinophils % (A) 1 %; HCT 39.4 % (39.0-53.0); HGB 13.2 gm/dL (13.0-17.5); Lymphocytes # (A) 0.2 k/uL (1.0-4.8); Lymphocytes % (A) 5 %; MCHC 33.4 g/dL (31.0-37.0); MCV 89.8 fL (80.0-100.0); Mean Platelet Volume 9.6; Monocytes # (A) 0.2 k/uL (0-1.0); Monocytes % (A) 5 %; Neutrophils # (A) 3.6 k/uL (1.3-7.7); Neutrophils % (A) 88 %; RBC 4.39 m/uL (4.30-5.90); RDW 13.2 % (11.5-15.5); WBC 4.1 k/uL (3.8-10.6)
[2020-10-20 15:29] LABS: Platelet Count 102 k/uL (150-450)
[2020-10-20] MEDS ORDERED: cefTRIAXone IN SWFI 1,000 MG/10 ML SYRINGE IVP STA (15:41)
[2020-10-20] MEDS ORDERED: metroNIDAZOLE-NS PMX 500 MG in SALINE 1 100ML.BAG IVPB STA ×2 (16:34→17:55)
--- NOTE | 2020-10-20 16:34 | CT ---
EXAMINATION TYPE: CT abdomen pelvis w con DATE OF EXAM: 10/20/2020 COMPARISON: CT abdomen and pelvis 4 days ago HISTORY: Possible obstruction. Pain. Hematuria. CT DLP: 1015.8 mGycm, Automated Exposure Control for Dose Reduction was Utilized. CONTRAST: CT scan of the abdomen and pelvis is performed with oral and with IV Contrast, patient injected with 100 mL of Isovue 300. FINDINGS: LUNG BASES: Tiny bilateral pleural effusions slightly larger versus prior. Mild to moderate bibasilar linear atelectasis and/or scarring more prominent from prior. Redemonstration of at least moderate c oronary artery calcification in the left circumflex [place] LAD distribution. New hypodensity susp ected emboli in the middle and lower lobe right arterial branches axial images 1 through 3 for refere nce. Small to tiny anterior inferior pericardial effusion redemonstrated. LIVER/GB: Gallbladder has distended margins. Increased intraluminal density could reflect product of vicarious excretion. PANCREAS: No significant abnormality is seen. SPLEEN: No significant abnormality is seen. ADRENALS: No significant abnormality is seen. KIDNEYS: Some cortical thinning both kidneys. Symmetric cortical measuring uptake and excretion witho ut hydronephrosis seen bilaterally. Carranza catheter in decompressed bladder on current study. BOWEL: Suboptimal evaluation without enteric contrast. Small hiatal hernia seen better on current ezra dy. Stomach poorly distended and thus suboptimally evaluated. Duodenal sweep shows no suspicious dila tation. Some air-fluid levels in slightly prominent colonic loops with fecal debris. Mild to moderate rectal fecal stasis less prominent than prior. Redundant sigmoid colon difficult to follow as there is abnor mal fluid in the right abdomen. Abnormal thickened small bowel loops in the right lower quadrant. Foc i of free air are present for reference axial image 43. Suspect additional free air right lower quadr ant anteriorly image 55. Scattered colonic diverticula are redemonstrated. PROSTATE/SEMINAL VESICLES: No gross abnormality seen. LYMPH NODES: No greater than 1cm abdominal or pelvic lymph nodes are appreciated. OSSEOUS STRUCTURES: Grade 1 anterolisthesis L5 on S1. Severe disc space narrowing with vacuum disc ph enomenon. Mild to moderate disc space narrowing and multilevel vacuum disc phenomenon at L1-L2 throug h the L3-L4 levels. Underlying scoliosis redemonstrated. Multilevel facet arthropathy in the mid to l ower lumbar spine. Multilevel inferior spinous process resection. OTHER: Mild/moderate calcified plaque of the abdominal aorta extends into branch vessels. New mild di ffuse soft tissue anasarca. IMPRESSION: 1. New free air is seen in the right abdomen where there is worsening moderate ill-defined fluid and fat stranding. Suspect interval perforation of redundant sigmoid colon. 2. Suspect new acute pulmonary emboli in the right middle and lower lobe arterial branches, consider CTA chest to confirm. Critical results above communicated to emergency care physician speech therapy assistant via telephone at time of di ctation.
[2020-10-20 17:38] LABS: INR 1.2 (<1.2); Partial Thromboplastin Time 26.9 sec (22.0-30.0); Prothrombin Time 12.3 sec (9.0-12.0)
--- NOTE | 2020-10-20 17:43 | CT ---
EXAMINATION TYPE: CT chest angio for PE DATE OF EXAM: 10/20/2020 COMPARISON: 01/22/2019. HISTORY: Abnormal CT. CT DLP: 273.2 mGycm Automated exposure control for dose reduction was used. CONTRAST: CT Chest for pulmonary embolism performed with with IV Contrast, patient injected with 80 mL of Isovu e 370. FINDINGS: LUNGS: There are small opacities in the bilateral lower lobes. There is no pleural effusion or pneu mothorax seen. The tracheobronchial tree is patent. MEDIASTINUM: There is satisfactory enhancement of the pulmonary artery and its branches. There are mu ltiple filling defects within the segmental and subsegmental branches throughout the right lung. Few filling defects within the segmental and subsegmental branches are seen in the left upper lobe and le ss pronounced in the left lower lobe. There are no greater than 1 cm hilar or mediastinal lymph node s. No pericardial effusion is seen. OTHER: No additional significant abnormality is seen. IMPRESSION: Acute right greater than left PE with overall moderate clot burden. Mild bibasilar atelectasis. Findings reported to caring PA by me at time of dictation.
[2020-10-20] MEDS ORDERED: NALOXONE 0.4 MG/ML 1 ML VIAL IV PRN (17:45)
[2020-10-20] MEDS ORDERED: LEVOFLOXACIN 500MG-D5W PMX 500 MG in DEXTROSE/WATER 1 100ML.BAG IVPB STA (17:55)
[2020-10-20] MEDS ORDERED: ENOXAPARIN 30 MG/0.3 ML SYRINGE SQ STA (17:56)
--- NOTE | 2020-10-20 18:04 | P.GSHP ---
History of Present Illness H&P Date: 10/20/20 Chief Complaint: Pneumoperitoneum 85-year-old male comes in the hospital after just being discharged. Patient has complaints of increased abdominal pain mostly right lower quadrant along with lack of urination. Patient nauseated. No vomiting. He did have a bowel movement yesterday. During his recent hospitalization he was treated for severe constipation and abdominal pain which did improve. Denies shortness of breath. No fevers. Patient scheduled for outpatient colonoscopy to evaluate worsening constipation complaints. Patient's white blood cell count is normal. Lactic acid 1.5. Mildly tachycardic. He is afebrile. Pulse ox 92% on room air. CAT scan abdomen performed which demonstrates improvement in his stool burden. Increased inflammatory changes right lower quadrant with free fluid and free air also noted. Patient says his pain is mostly right lower quadrant although admits to it being present diffusely but less severe. On the computed tomogr aphy scan they suspected possible acute PE. Patient was then sent for CT chest which confirms bilateral pulmonary embolism moderate burden. Troponins are somewhat elevated as well. Patient with history of CVA in his 20s. Otherwise lives at home. Fair to good performance status. - Review of Systems Comment: The patient denies any acute changes in vision or hearing, no dysphagia or odynophagia, no chest pain or shortness of breath, no dysuria or hematuria, no headache, no runny nose, no rectal bleeding or melena, no unexplained weight loss Past Medical History Past Medical History: CVA/TIA, Hypertension, Prostate Disorder Additional Past Medical History / Comment(s): CVA (195)- STATES RIGHT ARM & LEG WEAKNESS. STATES CLOT THAT TRAVELLED TO HIS BACK AFTER CVA WITH SURGERY TO [facility] BPH, STATES HE LIMPS AND USES A CANE PRN.HX OF COLON POLYPS. History of Any Multi-Drug Resistant Organisms: None Reported Additional Past Surgical History / Comment(s): SURGERY TO REMOVE CLOT FROM BACK, SEVERAL PROCEDURES AT [facility] FOLLOWING CVA ELBOW SURGERY, RIGHT ANKLE FUSED. Past Anesthesia/Blood Transfusion Reactions: No Reported Reaction Past Psychological History: No Psychological Hx Reported Smoking Status: Never smoker Past Alcohol Use History: Occasional Past Drug Use History: None Reported - Past Family History Mother Additional Family Medical History / Comment(s): ALZHEIMERS Medications and Allergies Home Medications Medication Instructions Recorded Confirmed Type Multivitamins, Thera [Multivitamin 1 tab PO DAILY 02/14/18 10/16/20 History (formulary)] Tamsulosin HCl [Flomax] 0.4 mg PO HS 02/14/18 10/16/20 History Memantine HCl 10 mg PO BID 10/16/20 10/16/20 History Simvastatin [Zocor] 20 mg PO DAILY 10/16/20 10/16/20 History Lactulose [Cephulac] 30 gm PO DAILY 30 Days #30 ml 10/19/20 Rx polyethylene glycoL 3350 [Miralax] 17 gm PO DAILY 30 Days #30 10/19/20 Rx powd.pack Allergies Allergy/AdvReac Type Severity Reaction Status Date / Time No Known Allergies Allergy Verified 10/20/20 13:54 Surgical - Exam Vital Signs Temp Pulse Resp BP Pulse Ox 98.1 F 105 H 18 148/90 95 10/20/20 13:46 10/20/20 13:46 10/20/20 13:46 10/20/20 13:46 10/20/20 13:46 Physical exam: General: Elderly slightly malnourished appearing white male in no distress HEENT: Normocephalic, sclerae nonicteric Abdomen: Distended, diffuse tenderness noted, increased tenderness right lower quadrant and right mid abdomen Extremities: No edema Neuro: Alert and oriented Results - Labs 10/20/20 14:51 10/20/20 14:51 Abnormal Lab Results - Last 24 Hours (Table) 10/20/20 10/20/20 10/20/20 Range/Units 14:51 14:51 14:51 Plt Count 102 L D (150-450) k/uL Lymphocytes # 0.2 L (1.0-4.8) k/uL PT (9.0-12.0) sec INR (<1.2) Sodium 135 L (137-145) mmol/L BUN 30 H (9-20) mg/dL Glucose 116 H (74-99) mg/dL Troponin I (0.000-0.034) ng/mL Total Protein 6.1 L (6.3-8.2) g/dL Albumin 3.3 L (3.5-5.0) g/dL Urine Protein Trace H (Negative) Urine Ketones Trace H (Negative) Urine Bilirubin 1+ H (Negative) Ur Leukocyte Esterase Trace H (Negative) Urine Bacteria Rare H (None) /hpf Hyaline Casts 9 H (0-2) /lpf Urine Mucus Occasional H (None) /hpf Urine Sperm Occasional H (None) /hpf 10/20/20 10/20/20 Range/Units 17:13 17:13 Plt Count (150-450) k/uL Lymphocytes # (1.0-4.8) k/uL PT 12.3 H (9.0-12.0) sec INR 1.2 H (<1.2) Sodium (137-145) mmol/L BUN (9-20) mg/dL Glucose (74-99) mg/dL Troponin I 0.045 H* (0.000-0.034) ng/mL Total Protein (6.3-8.2) g/dL Albumin (3.5-5.0) g/dL Urine Protein (Negative) Urine Ketones (Negative) Urine Bilirubin (Negative) Ur Leukocyte Esterase (Negative) Urine Bacteria (None) /hpf Hyaline Casts (0-2) /lpf Urine Mucus (None) /hpf Urine Sperm (None) /hpf Diabetes panel 10/20/20 Range/Units 14:51 Sodium 135 L (137-145) mmol/L Potassium 4.6 (3.5-5.1) mmol/L Chloride 102 (98-107) mmol/L Carbon Dioxide 25 (22-30) mmol/L BUN 30 H (9-20) mg/dL Creatinine 0.95 (0.66-1.25) mg/dL Glucose 116 H (74-99) mg/dL Calcium 9.1 (8.4-10.2) mg/dL AST 31 (17-59) U/L ALT 13 (4-49) U/L Alkaline Phosphatase 106 (38-126) U/L Total Protein 6.1 L (6.3-8.2) g/dL Albumin 3.3 L (3.5-5.0) g/dL Calcium panel 10/20/20 Range/Units 14:51 Calcium 9.1 (8.4-10.2) mg/dL Albumin 3.3 L (3.5-5.0) g/dL Pituitary panel 10/20/20 Range/Units 14:51 Sodium 135 L (137-145) mmol/L Potassium 4.6 (3.5-5.1) mmol/L Chloride 102 (98-107) mmol/L Carbon Dioxide 25 (22-30) mmol/L BUN 30 H (9-20) mg/dL Creatinine 0.95 (0.66-1.25) mg/dL Glucose 116 H (74-99) mg/dL Calcium 9.1 (8.4-10.2) mg/dL Adrenal panel 10/20/20 Range/Units 14:51 Sodium 135 L (137-145) mmol/L Potassium 4.6 (3.5-5.1) mmol/L Chloride 102 (98-107) mmol/L Carbon Dioxide 25 (22-30) mmol/L BUN 30 H (9-20) mg/dL Creatinine 0.95 (0.66-1.25) mg/dL Glucose 116 H (74-99) mg/dL Calcium 9.1 (8.4-10.2) mg/dL Total Bilirubin 1.1 (0.2-1.3) mg/dL AST 31 (17-59) U/L ALT 13 (4-49) U/L Alkaline Phosphatase 106 (38-126) U/L Total Protein 6.1 L (6.3-8.2) g/dL Albumin 3.3 L (3.5-5.0) g/dL Assessment and Plan (1) Bowel perforation Narrative/Plan: 85-year-old male with return to emergency department with worsening abdominal pain. CAT scan findings suggest bowel perforation. Suspect probable stercoral ulceration or diverticulitis from recent constipation admission. Options discussed with the patient in detail. They would like to proceed with surgical intervention. Case discussed with vascular surgery as well who will remain on standby for acute pulmonary embolism. We'll plan exploratory laparotomy with possible bowel resection and possible ostomy. Echo will be ordered postoperatively to evaluate for heart strain. We'll hold systemic anticoagulation for now. 30 mg Lovenox subcu ordered at this time. Continue broad-spectrum antibiotics. Risks of bleeding, infection, abscess, hernia, possible need for ostomy, respiratory failure, cardiac failure, and . The patient and his understand and wish to proceed. Current Visit: Yes Status: Acute Code(s): K63.1 - PERFORATION OF INTESTINE (NONTRAUMATIC) SNOMED Code(s): 32173541
[2020-10-20] MEDS ORDERED: LIDOCAINE 1% INJ 10MG/ML (20 ML MDV) ONE (19:06)
[2020-10-20] MEDS ORDERED: SUCCINYLCHOLINE CHLORIDE 100 MG/5 ML SYR IV ONE (19:06)
[2020-10-20] MEDS ORDERED: fentaNYL (PF) 50 MCG/ML 2 ML AMP ONE (19:06)
[2020-10-20] MEDS ORDERED: PROPOFOL 10 MG/ML 20 ML VIAL IV ONE (19:06)
[2020-10-20] MEDS ORDERED: HYDROmorphone (PF) 1 MG/ML ONE (19:06)
[2020-10-20] MEDS ORDERED: PHENYLEPHRINE-0.9% NACL SYG 1,000 MCG/10 ML SYRINGE ONE (19:06)
[2020-10-20] MEDS ORDERED: BACITRACIN ZINC 500 UNIT/GM OINT 28.4 GM TUBE TOPICAL ONE (19:35)
[2020-10-20] MEDS ORDERED: ONDANSETRON 4 MG/2 ML VIAL IVP PRN (21:07)
--- NOTE | 2020-10-20 21:25 | P.OP ---
Date of Procedure: 10/20/20 Procedure(s) Performed: PREOPERATIVE DIAGNOSIS: Pneumoperitoneum POSTOPERATIVE DIAGNOSIS: Perforated sigmoid colon, fecal impaction PROCEDURE: Sigmoid colectomy with end colostomy, manual fecal disimpaction SURGEON: Dianne EBL: 50 mL ANESTHESIA: General COMPLICATIONS: None OPERATIVE PROCEDURE: Patient place in the operative table in the supine position. The patient was placed under general anesthesia. We then placed the patient in the left decubitus position. The patient had some residual stool in the rectum that was manually disimpacted. The patient has a stage II sacral decubitus ulcer noted and this was dressed appropriately after cleaning that area. The patient was then placed supine. The abdomen was prepped and draped in usual sterile fashion. A vertical incision was made encompassing extending from the suprapubic region above the umbilicus. The fascia was divided as well. Upon entrance into the peritoneal cavity purulent fluid was identified. The Bookwalter retractor was utilized. A large amount of purulent fluid was noted in the abdominal cavity. Cultures were taken. The site of perforation was noted to be in the distal sigmoid colon. I divided the sigmoid colon proximal to this using a linear 75 stapler. The mesentery was divided at that time using the LigaSure device. Beyond the perforation the distal sigmoid colon and proximal rectum had a extremely edematous appearance with a thickened wall. There was no stapler that could be utilized to come across this area. Instead once we were beyond our perforated segment the colon was divided using electrocautery. Additional hard stool was present in the lumen at that location which was again manually removed. I then closed with a stump of the colon which was approximately 5 cm proximal to the peritoneal reflection. The closure took place using a running locking 2-0 Vicryl suture and an outer running 2-0 silk suture. This appeared to close the stump nicely. This appeared to close the stump nicely. Once I had enough length on the colon the abdomen was copiously irrigated with 3 L of saline. No further purulence was encountered at that time. A circular incision was made in the left midabdomen. Dissection through the subcutaneous fat and fascia took place using electrocautery. I bluntly entered the peritoneal cavity and this was further bluntly opened. The bowel was brought out through this defect in the left midabdomen. The midline fascia was then reapproximated using 2 separate double-stranded #1 PDS sutures. The saphenous tissues were irrigated. The subcutaneous tissues were closed using 3- 0 Vicryl sutures. The skin was then closed using abdoulaye. The ostomy was then addressed. A portion of the pericolonic fat was removed using the LigaSure device. The staple line was then removed using electrocautery. The ostomy was then matured in a hoh fashion using interrupted 3-0 Vicryl sutures. An ostomy appliance was then applied. Sterile dressings were then applied to the midline incision. DISPOSITION: Stable to recovery room
[2020-10-20 21:46] LABS: Glucose,Whole Blood 122 mg/dL (75-99)
[2020-10-20] MEDS: D5-0.45% NACL WITH KCL 20MEQ/L 1,000 ML IV SCH (23:12)
--- NOTE | 2020-10-20 23:27 | US ---
EXAMINATION TYPE: US venous doppler duplex LE DATE OF EXAM: 10/20/2020 11:22 PM COMPARISON: NONE CLINICAL HISTORY: RU DVT. R/O DVT. PE. SIDE PERFORMED: Bilateral TECHNIQUE: The lower extremity deep venous system is examined utilizing real time linear array sonog alon with graded compression, doppler sonography and color-flow sonography. VESSELS IMAGED: Common Femoral Vein Deep Femoral Vein Greater Saphenous Vein * Femoral Vein Popliteal Vein Small Saphenous Vein * Proximal Calf Veins (* superficial vessels) Right Leg: Internal echoes are seen in the greater saphenous vein, femoral vein, popliteal vein, and prox calf veins. Color flow is seen in these veins but shows color defect. These veins appear to com press incompletely. Possible chronic thrombus? Left Leg: Internal echoes are seen in the popliteal vein and prox calf veins. Very little color flow seen in popliteal vein. Popliteal and prox calf veins appear to compress incompletely. Anechoic area seen left medial knee measuring 2.0 x 2.1 x 2.7 cm. IMPRESSION: There is evidence of bilateral acute and chronic deep vein thrombosis in the legs.
[2020-10-21] MEDS: metroNIDAZOLE-NS PMX 500 MG in SALINE 1 100ML.BAG IVPB SCH ×3 (01:16→17:11)
[2020-10-21] MEDS: SODIUM CHLORIDE 0.9% 1,000 ML IV SCH ×2 (03:13→14:08)
[2020-10-21 04:05] LABS: Basophils % (A) 0 %; Eosinophils % (A) 0 %; HCT 36.2 % (39.0-53.0); HGB 11.9 gm/dL (13.0-17.5); Lymphocytes # (A) 0.6 k/uL (1.0-4.8); Lymphocytes % (A) 8 %; MCH 30.3 pg (25.0-35.0); MCHC 32.8 g/dL (31.0-37.0); MCV 92.2 fL (80.0-100.0); Mean Platelet Volume 8.1; Monocytes # (A) 0.3 k/uL (0-1.0); Monocytes % (A) 4 %; Neutrophils # (A) 6.4 k/uL (1.3-7.7); Neutrophils % (A) 87 %; RBC 3.92 m/uL (4.30-5.90); WBC 7.3 k/uL (3.8-10.6)
[2020-10-21 04:13] LABS: Platelet Count 206 k/uL (150-450)
[2020-10-21 04:20] LABS: ALT 11 U/L (4-49); AST 23 U/L (17-59); African American GFR (CKD) >90 (>60 ml/min/1.73 sqM); Albumin 2.3 g/dL (3.5-5.0); Alkaline Phosphatase 81 U/L (38-126); Anion Gap 6 mmol/L; Blood Urea Nitrogen 26 mg/dL (9-20); Carbon Dioxide 23 mmol/L (22-30); Chloride 105 mmol/L (98-107); Glucose 134 mg/dL (74-99); Non-African American GFR(CKD) 80 (>60 ml/min/1.73 sqM); Potassium 4.2 mmol/L (3.5-5.1); Sodium 134 mmol/L (137-145); Total Bilirubin 1.1 mg/dL (0.2-1.3); Total Protein 4.7 g/dL (6.3-8.2)
[2020-10-21] MEDS: D5-0.45% NACL WITH KCL 20MEQ/L 1,000 ML IV SCH ×3 (06:42→23:13)
--- NOTE | 2020-10-21 08:49 | P.GSCN ---
History of Present Illness Consult date: 10/21/20 Reason for Consult: Bilateral pulmonary embolism, bilateral lower extremity DVT Requesting physician: Eleuterio Dean History of present illness: This is an 85-year-old male patient presented to the emergency [facility] yesterday evening with complaints of urinary retention and abdominal distention. 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 The patient had been in the hospital and just discharged 2 days ago for the patient with fecal impaction. The patient had several bowel movements prior to discharge home. With decreased abdominal pain and distention. On returning to the emergency department record of this workup was a CT of the abdomen that showed new free air in the right abdomen with suspected perforation and sigmoid colon. CT of the abdomen also showed concern for possible pulmonary embolism. A CTA chest was ordered and findings included acute right greater than left pulmonary embolism with moderate clot burden. Patient also had a subsequent venous Doppler showing bilateral acute on chronic deep vein thrombosis. Vascular surgery was consulted for this reason. had elevated troponin, echocardiogram has been ordered and pending. Patient denies any shortness of breath, chest pain, abdominal pain, or pain in bilateral lower extremities. He states he had no prior history of pulmonary embolism or DVT in his extremities. No known clotting disorders. He is on 2 L of oxygen per nasal cannula. The patient was seen by general surgery, Dr. Cristina took him for surgery yesterday for a pneumoperitoneum, found to have perforated sigmoid colon and fecal impaction. Patient underwent a sigmoid colectomy with end colostomy, and manual fecal disimpaction. Review of Systems A 14 point review of systems is completed all pertinent positives and negatives as stated in the HPI Past Medical History Past Medical History: CVA/TIA, Hypertension, Prostate Disorder Additional Past Medical History / Comment(s): CVA (1955)- STATES RIGHT ARM & LEG WEAKNESS. STATES CLOT THAT TRAVELLED TO HIS BACK AFTER CVA WITH SURGERY TO REMOVE., BPH, STATES HE LIMPS AND USES A CANE PRN.HX OF COLON POLYPS. History of Any Multi-Drug Resistant Organisms: None Reported Additional Past Surgical History / Comment(s): SURGERY TO REMOVE CLOT FROM BACK, SEVERAL PROCEDURES AT [facility] FOLLOWING CVA ELBOW SURGERY, RIGHT ANKLE FUSED. Past Anesthesia/Blood Transfusion Reactions: No Reported Reaction Past Psychological History: No Psychological Hx Reported Smoking Status: Never smoker Past Alcohol Use History: Occasional Past Drug Use History: None Reported - Past Family History Mother Additional Family Medical History / Comment(s): ALZHEIMERS Medications and Allergies Home Medications Medication Instructions Recorded Confirmed Type Multivitamins, Thera [Multivitamin 1 tab PO DAILY 02/14/18 10/20/20 History (formulary)] Tamsulosin HCl [Flomax] 0.4 mg PO HS 02/14/18 10/20/20 History Memantine HCl 10 mg PO BID 10/16/20 10/20/20 History Simvastatin [Zocor] 20 mg PO DAILY 10/16/20 10/20/20 History Lactulose [Cephulac] 30 gm PO DAILY 30 Days #30 ml 10/19/20 10/20/20 Rx polyethylene glycoL 3350 [Miralax] 17 gm PO DAILY 30 Days #30 10/19/20 10/20/20 Rx [email or web address] Allergies Allergy/AdvReac Type Severity Reaction Status Date / Time No Known Allergies Allergy Verified 10/20/20 18:16 Surgical - Exam Vital Signs Temp Pulse Resp BP Pulse Ox 98.1 F 105 H 18 148/90 95 10/20/20 13:46 10/20/20 13:46 10/20/20 13:46 10/20/20 13:46 10/20/20 13:46 General appearance: The patient is alert, oriented, in no acute distress. HET: Head is normocephalic and atraumatic. Pupils are equal and reactive. Neck: Supple without lymphadenopathy. Trachea midline. Heart: S1 S2. Regular rate and rhythm. Lungs: Clear to auscultation. Nonlabored breathing. Chest: Normal chest wall expansion. Abdomen: Soft, nontender, nondistended with bowel sounds. No peritoneal signs. No palpable organomegaly or masses. Extremities: Normal skin color and turgor. Bilateral lower extremities warm to touch with pedal edema. Palpable bilateral femoral pulses. Positive posterior tibialis and dorsalis pedis Doppler signal. Neurological: No focal deficits. Strength and sensation are grossly intact. Results CT angiogram chest: Acute right greater than left pulmonary embolism with moderate clot burden. CT abdomen showed new free air and right abdomen suspect perforation and sigmoid colon. Sign echocardiogram ordered: Pending results - Labs 10/21/20 03:35 10/21/20 03:35 Abnormal Lab Results - Last 24 Hours (Table) 10/20/20 10/20/20 10/20/20 Range/Units 14:51 14:51 14:51 RBC (4.30-5.90) m/uL Hgb (13.0-17.5) gm/dL Hct (39.0-53.0) % Plt Count 102 L D (150-450) k/uL Lymphocytes # 0.2 L (1.0-4.8) k/uL PT (9.0-12.0) sec INR (<1.2) Sodium 135 L (137-145) mmol/L BUN 30 H (9-20) mg/dL Glucose 116 H (74-99) mg/dL POC Glucose (mg/dL) (75-99) mg/dL Calcium (8.4-10.2) mg/dL Troponin I (0.000-0.034) ng/mL Total Protein 6.1 L (6.3-8.2) g/dL Albumin 3.3 L (3.5-5.0) g/dL Urine Protein Trace H (Negative) Urine Ketones Trace H (Negative) Urine Bilirubin 1+ H (Negative) Ur Leukocyte Esterase Trace H (Negative) Urine Bacteria Rare H (None) /hpf Hyaline Casts 9 H (0-2) /lpf Urine Mucus Occasional H (None) /hpf Urine Sperm Occasional H (None) /hpf 10/20/20 10/20/20 10/20/20 Range/Units 17:13 17:13 21:45 RBC (4.30-5.90) m/uL Hgb (13.0-17.5) gm/dL Hct (39.0-53.0) % Plt Count (150-450) k/uL Lymphocytes # (1.0-4.8) k/uL PT 12.3 H (9.0-12.0) sec INR 1.2 H (<1.2) Sodium (137-145) mmol/L BUN (9-20) mg/dL Glucose (74-99) mg/dL POC Glucose (mg/dL) 122 H (75-99) mg/dL Calcium (8.4-10.2) mg/dL Troponin I 0.045 H* (0.000-0.034) ng/mL Total Protein (6.3-8.2) g/dL Albumin (3.5-5.0) g/dL Urine Protein (Negative) Urine Ketones (Negative) Urine Bilirubin (Negative) Ur Leukocyte Esterase (Negative) Urine Bacteria (None) /hpf Hyaline Casts (0-2) /lpf Urine Mucus (None) /hpf Urine Sperm (None) /hpf 10/21/20 10/21/20 Range/Units 03:35 03:35 RBC 3.92 L (4.30-5.90) m/uL Hgb 11.9 L (13.0-17.5) gm/dL Hct 36.2 L (39.0-53.0) % Plt Count (150-450) k/uL Lymphocytes # 0.6 L (1.0-4.8) k/uL PT (9.0-12.0) sec INR (<1.2) Sodium 134 L (137-145) mmol/L BUN 26 H (9-20) mg/dL Glucose 134 H (74-99) mg/dL POC Glucose (mg/dL) (75-99) mg/dL Calcium 8.0 L (8.4-10.2) mg/dL Troponin I (0.000-0.034) ng/mL Total Protein 4.7 L (6.3-8.2) g/dL Albumin 2.3 L (3.5-5.0) g/dL Urine Protein (Negative) Urine Ketones (Negative) Urine Bilirubin (Negative) Ur Leukocyte Esterase (Negative) Urine Bacteria (None) /hpf Hyaline Casts (0-2) /lpf Urine Mucus (None) /hpf Urine Sperm (None) /hpf Microbiology - Last 24 Hours (Table) 10/20/20 20:57 Wound Culture - Preliminary Other - Other 10/20/20 20:57 Anaerobic Culture - Preliminary Other - Other Diabetes panel 10/20/20 10/21/20 Range/Units 14:51 03:35 Sodium 135 L 134 L (137-145) mmol/L Potassium 4.6 4.2 (3.5-5.1) mmol/L Chloride 102 105 (98-107) mmol/L Carbon Dioxide 25 23 (22-30) mmol/L BUN 30 H 26 H (9-20) mg/dL Creatinine 0.95 0.84 (0.66-1.25) mg/dL Glucose 116 H 134 H (74-99) mg/dL Calcium 9.1 8.0 L (8.4-10.2) mg/dL AST 31 23 (17-59) U/L ALT 13 11 (4-49) U/L Alkaline Phosphatase 106 81 (38-126) U/L Total Protein 6.1 L 4.7 L (6.3-8.2) g/dL Albumin 3.3 L 2.3 L (3.5-5.0) g/dL Calcium panel 10/20/20 10/21/20 Range/Units 14:51 03:35 Calcium 9.1 8.0 L (8.4-10.2) mg/dL Albumin 3.3 L 2.3 L (3.5-5.0) g/dL Pituitary panel 10/20/20 10/21/20 Range/Units 14:51 03:35 Sodium 135 L 134 L (137-145) mmol/L Potassium 4.6 4.2 (3.5-5.1) mmol/L Chloride 102 105 (98-107) mmol/L Carbon Dioxide 25 23 (22-30) mmol/L BUN 30 H 26 H (9-20) mg/dL Creatinine 0.95 0.84 (0.66-1.25) mg/dL Glucose 116 H 134 H (74-99) mg/dL Calcium 9.1 8.0 L (8.4-10.2) mg/dL Adrenal panel 10/20/20 10/21/20 Range/Units 14:51 03:35 Sodium 135 L 134 L (137-145) mmol/L Potassium 4.6 4.2 (3.5-5.1) mmol/L Chloride 102 105 (98-107) mmol/L Carbon Dioxide 25 23 (22-30) mmol/L BUN 30 H 26 H (9-20) mg/dL Creatinine 0.95 0.84 (0.66-1.25) mg/dL Glucose 116 H 134 H (74-99) mg/dL Calcium 9.1 8.0 L (8.4-10.2) mg/dL Total Bilirubin 1.1 1.1 (0.2-1.3) mg/dL AST 31 23 (17-59) U/L ALT 13 11 (4-49) U/L Alkaline Phosphatase 106 81 (38-126) U/L Total Protein 6.1 L 4.7 L (6.3-8.2) g/dL Albumin 3.3 L 2.3 L (3.5-5.0) g/dL Assessment and Plan Assessment: 1. Bilateral pulmonary embolism 2. 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 Postop day 1 sigmoid colectomy with end colostomy 4. Perforated sigmoid colon 5. Constipation 6. Previous history of CVA in 1956 with residual right upper and lower extremity weakness 7. Hypertension Plan: Continue supportive care Continue ICU management Echocardiogram ordered to evaluate for right heart strain, results pending Recommend anticoagulation for pulmonary embolism and DVT, preferably heparin drip, if evidence of right heart strain percutaneous thrombectomy recommended Await recommendations from surgical services whether anticoagulation can be started Further recommendations to follow The impression and plan of care has been dictated as directed. I performed a history and examination of this patient, discussed the same with the dictator. I agree with the dictator's note ,documented as a scribe. Any additional findings or plans will be noted.
--- NOTE | 2020-10-21 09:13 | XR ---
EXAMINATION TYPE: XR chest 1V portable DATE OF EXAM: 10/21/2020 COMPARISON: CT chest 10/20/2020, 01/20/2019 chest x-ray HISTORY: Pulmonary embolism, shortness of breath TECHNIQUE: Single frontal view of the chest is obtained. FINDINGS: Bandlike areas of decreased attenuation are present along ASIS left greater than right. Pa tient is rotated. Marked arthropathy again noted in the right shoulder. There are overlying leads and artifacts. Cardiac mediastinal silhouette likely stable accounting for differences in technique, the aorta is dense. There is no evident pneumothorax or pleural effusion. Interstitium is increased. IMPRESSION: Interstitial lung disease, subsegmental basilar atelectasis, pneumonia felt to be less l ikely.
--- NOTE | 2020-10-21 09:55 | CONS ---
CONSULTATION Mr. Bright is an 85-year-old male who was recently in the hospital with abdominal discomfort, presented again with recurrent abdominal discomfort yesterday afternoon and was found to have perforated viscus. He underwent surgery by Dr. Dean. As part of his CT of the abdomen, he was noted to have a questionable pulmonary embolism and subsequently underwent chest CT that confirmed a right greater than left pulmonary embolism with moderate clot burden. The patient denies any prior cardiac history. He denies any chest discomfort. He has mild dyspnea. Hemodynamically, he is stable. He is in sinus mechanism on 2 L oxygen. He has a prior history of stroke at the age of 20. According to him, he has no history of cardiac arrhythmia or history of myocardial infarction. He denies any history of heart failure. His coronary risk factors are negative for smoking. He has hyperlipidemia. No documented hypertension or diabetes. MEDICATION: His medications at home included simvastatin 20 mg daily, Flomax, memantine and lactulose. REVIEW OF SYSTEMS: RESPIRATORY SYSTEM: He has some dyspnea on exertion. No recent cough . GI SYSTEM: He had abdominal pain, the inability to move his bowel. SYSTEM: No dysuria or hematuria. NERVOUS SYSTEM: He had a prior history of stroke. PHYSICAL EXAMINATION: He is an 85-year-old male, alert, mildly confused. Blood pressure running in the 100s with the heart rate in the 80s. HEAD: Normocephalic. EYES: Sclerae anicteric. NECK: Good carotid upstroke. No bruit. No jugular venous distention. LUNGS: Clear to auscultation. HEART: Regular rate and rhythm. S1, S2. No S3. No rub appreciated with a systolic murmur. ABDOMEN: Soft, mild tenderness. Colostomy in place. Dressing in place. EXTREMITIES: No edema. LAB DATA: Lab data revealed troponin 0.045. NT proBNP of 4270. BUN and creatinine 26 and 0.84. Potassium 4.2. Hemoglobin of 11.9. His white blood cell of 7.3. His EKG on presentation revealed a sinus mechanism with a right bundle branch block, left axis deviation and nonspecific ST-T wave changes. IMPRESSION: 1. Status post ruptured viscus with surgical intervention. Patient had perforated sigmoid. He underwent sigmoid colectomy with end-colostomy. 2. Pulmonary embolism. According to the patient he had a prior history of pulmonary embolism, although details of that are not available to me. He is oxygenating well. He has elevation of troponin and NT proBNP suggestive of a submassive pulmonary embolism. There is no report of RV strain on the CT scan. We will obtain echocardiogram to evaluate that further. 3. History of hyperlipidemia. RECOMMENDATION: At this time, the patient is not receiving anticoagulation because of his recent surgery. Will await the results of his echocardiogram. He has been seen by Dr. Kang for evaluation for possible EKOS intervention for his pulmonary embolism. In the meantime, we will continue supportive care and depending on his progress, further recommendation will be made. Thank you for this consult. Will follow with you. MMODL / IJN: [id number] /
[2020-10-21] MEDS: PANTOPRAZOLE 40 MG/10 ML VIAL IV SCH (11:14)
[2020-10-21] MEDS: HYDROmorphone 1 MG/ML 1 ML SYRINGE IVP PRN ×3 (11:26→21:36)
--- NOTE | 2020-10-21 11:38 | P.CNPUL ---
History of Present Illness Consult date: 10/21/20 Requesting physician: Eleuterio Dean Chief complaint: Status post Kumar's procedure. History of present illness: This is an 85-year-old male who presents to the emergency department, complaining of unable to urinate. The patient also has not had a bowel movement in 3 weeks. He apparently was recently admitted for constipation but then was discharged. The patient has a history of colitis. The patient apparently feels nauseated, and his abdomen is distended. He denies any vomiting. Denied any chest pain. He also denied any shortness of breath. He apparently was found have a perforated viscus, and underwent a Kumar's procedure by Dr. Dean. He is postop day #1. Dr. Dean called me yesterday and asked whether or not we could put the patient in the ICU overnight. He was concerned given the patient's age. In addition, in the process of evaluating the patient, the patient was found to have bilateral pulmonary emboli, moderate clot burden, right greater than left, and also bilateral lower extremity DVT. Because of the recent surgery, he cannot be heparinized. Apparently, the vascular surgeon was called, and at this point, no interventions are planned. The patient apparently has a history of CVA, hypertension, and chronic prostate disease. He is currently on lactulose, MiraLAX, multiple vitamins, Flomax, Namenda, and Zocor. He is resting comfortably in the ICU. He is on O2 at 2 L. He is getting dextrose, with half-normal saline, with 20 mEq of potassium at 125 mL an hour. I didn't passed onto the nurse, that may be vascular surgery would prefer to do a Laurie filter. The patient is without distress. Review of Systems REVIEW OF SYSTEMS: CONSTITUTIONAL: [Negative.] NEUROLOGIC: [ Negative.] HEENT: [ Negative.] CARDIAC: [Negative.] PULMONARY: [Negative.] GI: Chronic constipation, inability to have a bowel movement, abdominal distention and pain, nausea without vomiting. : Inability to urinate. RHEUMATOLOGIC: [ Negative.] IMMUNOLOGIC: [ Negative.] ENDOCRINE: [Negative. ] DERMATOLOGIC: [Negative.] Past Medical History Past Medical History: CVA/TIA, Hypertension, Prostate Disorder Additional Past Medical History / Comment(s): CVA (89)- STATES RIGHT ARM & LEG WEAKNESS. STATES CLOT THAT TRAVELLED TO HIS BACK AFTER CVA WITH SURGERY TO REMOVE., BPH, STATES HE LIMPS AND USES A CANE PRN.HX OF COLON POLYPS. History of Any Multi-Drug Resistant Organisms: None Reported Additional Past Surgical History / Comment(s): SURGERY TO REMOVE CLOT FROM BACK, SEVERAL PROCEDURES AT [facility] FOLLOWING CVA ELBOW SURGERY, RIGHT ANKLE FUSED. Past Anesthesia/Blood Transfusion Reactions: No Reported Reaction Past Psychological History: No Psychological Hx Reported Smoking Status: Never smoker Past Alcohol Use History: Occasional Past Drug Use History: None Reported - Past Family History Mother Additional Family Medical History / Comment(s): ALZHEIMERS Medications and Allergies Home Medications Medication Instructions Recorded Confirmed Type Multivitamins, Thera [Multivitamin 1 tab PO DAILY 02/14/18 10/20/20 History (formulary)] Tamsulosin HCl [Flomax] 0.4 mg PO HS 02/14/18 10/20/20 History Memantine HCl 10 mg PO BID 10/16/20 10/20/20 History Simvastatin [Zocor] 20 mg PO DAILY 10/16/20 10/20/20 History Lactulose [Cephulac] 30 gm PO DAILY 30 Days #30 ml 10/19/20 10/20/20 Rx polyethylene glycoL 3350 [Miralax] 17 gm PO DAILY 30 Days #30 10/19/20 10/20/20 Rx [email or web address] Allergies Allergy/AdvReac Type Severity Reaction Status Date / Time No Known Allergies Allergy Verified 10/20/20 18:16 Physical Exam Osteopathic Statement: *. No significant issues noted on an osteopathic struct ural exam other than those noted in the History and Physical/Consult. Vitals: Vital Signs Temp Pulse Pulse Pulse Resp BP BP 10/21/20 07:00 80 30 H 100/53 10/21/20 06:30 66 13 100/53 10/21/20 06:00 72 20 96/51 10/21/20 05:30 73 16 96/51 10/21/20 05:00 76 21 108/55 10/21/20 04:30 70 12 108/55 10/21/20 04:09 10/21/20 04:00 98.2 F 76 16 103/53 10/21/20 03:30 74 14 103/53 10/21/20 03:00 72 14 101/51 10/21/20 02:30 73 14 101/51 10/21/20 02:00 70 12 103/53 10/21/20 01:30 72 11 L 103/53 10/21/20 01:00 72 12 96/50 10/21/20 00:30 73 13 96/50 10/21/20 00:00 98.3 F 73 70 13 106/53 10/20/20 23:30 77 12 109/53 10/20/20 23:00 77 13 112/55 10/20/20 22:30 79 14 124/64 10/20/20 22:00 88 12 117/57 10/20/20 21:43 90 10/20/20 21:25 94 16 110/58 10/20/20 21:15 88 16 110/59 10/20/20 21:06 100.1 F H 91 18 114/61 10/20/20 18:30 95 18 132/69 10/20/20 17:30 92 18 124/70 10/20/20 17:00 132/71 10/20/20 16:30 10/20/20 16:00 143/69 10/20/20 15:30 151/77 10/20/20 15:00 99 18 150/79 10/20/20 14:30 18 151/87 10/20/20 14:00 158/92 10/20/20 13:50 10/20/20 13:46 98.1 F 105 H 18 148/90 Pulse Ox 10/21/20 07:00 96 10/21/20 06:30 97 10/21/20 06:00 96 10/21/20 05:30 97 10/21/20 05:00 95 10/21/20 04:30 96 10/21/20 04:09 94 L 10/21/20 04:00 94 L 10/21/20 03:30 97 10/21/20 03:00 97 10/21/20 02:30 98 10/21/20 02:00 97 10/21/20 01:30 98 10/21/20 01:00 96 10/21/20 00:30 96 10/21/20 00:00 96 10/20/20 23:30 96 10/20/20 23:00 98 10/20/20 22:30 97 10/20/20 22:00 95 02/25/21 21:43 10/20/20 21:25 92 L 10/20/20 21:15 99 10/20/20 21:06 97 10/20/20 18:30 92 L 10/20/20 17:30 94 L 10/20/20 17:00 92 L 10/20/20 16:30 93 L 10/20/20 16:00 10/20/20 15:30 93 L 10/20/20 15:00 92 L 10/20/20 14:30 94 L 10/20/20 14:00 94 L 10/20/20 13:50 96 10/20/20 13:46 95 Intake and Output 10/20/20 10/21/20 10/21/20 22:59 06:59 14:59 Intake Total 700 875 125 Output Total 450 280 30 Balance 250 595 95 Intake: IV 700 875 125 D5-0.45% NaCl with KCl 875 125 20Meq/l 1,000 ml @ 125 mls/hr IV .Q8H [facility] Rx#: [id number] Output: Drainage 75 Right Abdomen 75 Urine 400 205 30 Estimated Blood Loss 50 Other: Voiding Method Indwelling Catheter Weight 66.678 kg 73.1 kg No acute distress, oriented 3. Nasal O2 in place at 2 L. HEENT examination is grossly unremarkable. Mucous membranes are moist. No oral lesions. Neck supple. Full range of motion. No adenopathy thyromegaly or neck vein distention. Cardiovascular examination reveals regular rhythm rate. S1-S2 normal. No S3 or S4. No discernible murmur noted. Heart rate is 80 bpm. Lungs reveal clear breath sounds. Her sounds are equal bilaterally. No adventitious lung sounds including wheezes rhonchi or crackles. Abdomen soft, without bowel sounds. Colostomy is noted. Extremities are intact. No cyanosis clubbing or edema. Skin is without rash or lesion. Neurologic examination is brief but nonfocal. Results - Laboratory Findings CBC and BMP: 10/21/20 03:35 10/21/20 03:35 PT/INR, D-dimer PT 12.3 sec (9.0-12.0) H 10/20/20 17:13 INR 1.2 (<1.2) H 10/20/20 17:13 Abnormal lab findings: Abnormal Labs 0210/20/20 10/20/20 14:51 14:51 14:51 RBC Hgb Hct Plt Count 102 L D Lymphocytes # 0.2 L PT INR Sodium 135 L BUN 30 H Glucose 116 H POC Glucose (mg/dL) Calcium Troponin I Total Protein 6.1 L Albumin 3.3 L Urine Protein Trace H Urine Ketones Trace H Urine Bilirubin 1+ H Ur Leukocyte Esterase Trace H Urine Bacteria Rare H Hyaline Casts 9 H Urine Mucus Occasional H Urine Sperm Occasional H 10/20/20 10/20/20 10/20/20 17:13 17:13 21:45 RBC Hgb Hct Plt Count Lymphocytes # PT 12.3 H INR 1.2 H Sodium BUN Glucose POC Glucose (mg/dL) 122 H Calcium Troponin I 0.045 H* Total Protein Albumin Urine Protein Urine Ketones Urine Bilirubin Ur Leukocyte Esterase Urine Bacteria Hyaline Casts Urine Mucus Urine Sperm 10/21/20 10/21/20 03:35 03:35 RBC 3.92 L Hgb 11.9 L Hct 36.2 L Plt Count Lymphocytes # 0.6 L PT INR Sodium 134 L BUN 26 H Glucose 134 H POC Glucose (mg/dL) Calcium 8.0 L Troponin I Total Protein 4.7 L Albumin 2.3 L Urine Protein Urine Ketones Urine Bilirubin Ur Leukocyte Esterase Urine Bacteria Hyaline Casts Urine Mucus Urine Sperm - Diagnostic Findings Chest x-ray: image reviewed CT scan - chest: image reviewed U/S of Legs: image reviewed Assessment and Plan Assessment: Postop day #1, status post Kumar's procedure, with sigmoid colectomy and end colostomy, for perforated sigmoid colon and fecal impaction. Bilateral pulmonary emboli, right greater than left, with moderate clot burden. Bilateral lower extremity DVT. History of CVA. History of BPH. History of dementia. History of hyperlipidemia. History of hypertension. History of chronic constipation. Plan: Plan dated 10/21/2020. The patient is resting comfortably in the ICU. The patient cannot receive blood thinners because of the recent surgery. I suggest that the vascular surgeon put a Laurie filter in. I think this will solve our problem. The patient does have bilateral lower extremity DVT. He also has bilateral pulmonary emboli, with moderate clot burden, right greater than left. He is only requiring O2 at 2 L. I don't believe he is a candidate at this time for catheter directed TPA and ultrasonic dissolution of the pulmonary emboli (EKOS). We will continue to follow the patient closely. No additional recommendations are made. Medications are reviewed. We recommend hourly use of the incentive spirometer. Time with Patient: Greater than 30
--- NOTE | 2020-10-21 12:20 | P.PN ---
<Mere Dalton - Last Filed: 10/21/20 12:10> Subjective Progress Note Date: 10/21/20 CHIEF COMPLAINT: Pneumoperitoneum HISTORY OF PRESENT ILLNESS: Patient is currently in the ICU. He is postop day #1 status post sigmoid colectomy with end colostomy and manual fecal disimpaction for perforated sigmoid colon and fecal impaction. Patient is sitting up in the ICU bed. He is comfortable. He reports that his pain is c ontrolled with pain medicine. He denies any nausea or vomiting. Afebrile. WBC 7.3 Hgb 11.9 patient also has bilateral PE and bilateral acute on chronic DVT seen by vascular service they are recommending patient be restarted on IV heparin PHYSICAL EXAM: VITAL SIGNS: Reviewed. GENERAL: Well-developed in no acute distress. HEENT: No sclera icterus. Extraocular movements grossly intact. Moist buccal mucosa. Head is atraumatic, normocephalic. ABDOMEN: Soft. Nondistended. Incision dressing small amount of blood at the distal aspect of the dressing. Stoma is pink. There is sanguinous colored drainage in his ostomy bag. NEUROLOGIC: Alert and oriented. Cranial nerves II through XII grossly intact. ASSESSMENT: 1. Perforated sigmoid colon and fecal impaction status post sigmoid colectomy with end colostomy and manual fecal disimpaction PLAN: -Continue ICU management and supportive care -Continue IV antibiotics -Keep patient nothing by mouth -Continue IV fluids -Order incentive spirometer Physician Sommelier note has been reviewed by physician. Signing provider agrees with the documented findings, assessment, and plan of care. Objective - Vital Signs Vital signs: Vital Signs Temp 98.2 F 10/21/20 04:00 Pulse 80 10/21/20 07:00 Resp 30 H 10/21/20 07:00 BP 100/53 10/21/20 07:00 Pulse Ox 96 10/21/20 07:00 Intake & Output 10/20/20 10/21/20 10/21/20 18:59 06:59 18:59 Intake Total 1575 125 Output Total 550 730 30 Balance -550 845 95 Weight 66.678 kg 73.1 kg Intake: IV 1575 125 D5-0.45% NaCl with KCl 875 125 20Meq/l 1,000 ml @ 125 mls/hr IV .Q8H [facility] Rx#: [id number] Output: Drainage 75 Right Abdomen 75 Urine 550 605 30 Uretheral (Carranza) 550 Estimated Blood Loss 50 Other: Voiding Method Indwelling Catheter - Labs CBC & Chem 7: 10/21/20 03:35 10/21/20 03:35 Labs: Abnormal Lab Results - Last 24 Hours (Table) 10/20/20 10/20/20 10/20/20 Range/Units 14:51 14:51 14:51 RBC (4.30-5.90) m/uL Hgb (13.0-17.5) gm/dL Hct (39.0-53.0) % Plt Count 102 L D (150-450) k/uL Lymphocytes # 0.2 L (1.0-4.8) k/uL PT (9.0-12.0) sec INR (<1.2) Sodium 135 L (137-145) mmol/L BUN 30 H (9-20) mg/dL Glucose 116 H (74-99) mg/dL POC Glucose (mg/dL) (75-99) mg/dL Calcium (8.4-10.2) mg/dL Troponin I (0.000-0.034) ng/mL Total Protein 6.1 L (6.3-8.2) g/dL Albumin 3.3 L (3.5-5.0) g/dL Urine Protein Trace H (Negative) Urine Ketones Trace H (Negative) Urine Bilirubin 1+ H (Negative) Ur Leukocyte Esterase Trace H (Negative) Urine Bacteria Rare H (None) /hpf Hyaline Casts 9 H (0-2) /lpf Urine Mucus Occasional H (None) /hpf Urine Sperm Occasional H (None) /hpf 10/20/20 10/20/20 10/20/20 Range/Units 17:13 17:13 21:45 RBC (4.30-5.90) m/uL Hgb (13.0-17.5) gm/dL Hct (39.0-53.0) % Plt Count (150-450) k/uL Lymphocytes # (1.0-4.8) k/uL PT 12.3 H (9.0-12.0) sec INR 1.2 H (<1.2) Sodium (137-145) mmol/L BUN (9-20) mg/dL Glucose (74-99) mg/dL POC Glucose (mg/dL) 122 H (75-99) mg/dL Calcium (8.4-10.2) mg/dL Troponin I 0.045 H* (0.000-0.034) ng/mL Total Protein (6.3-8.2) g/dL Albumin (3.5-5.0) g/dL Urine Protein (Negative) Urine Ketones (Negative) Urine Bilirubin (Negative) Ur Leukocyte Esterase (Negative) Urine Bacteria (None) /hpf Hyaline Casts (0-2) /lpf Urine Mucus (None) /hpf Urine Sperm (None) /hpf 10/21/20 10/21/20 Range/Units 03:35 03:35 RBC 3.92 L (4.30-5.90) m/uL Hgb 11.9 L (13.0-17.5) gm/dL Hct 36.2 L (39.0-53.0) % Plt Count (150-450) k/uL Lymphocytes # 0.6 L (1.0-4.8) k/uL PT (9.0-12.0) sec INR (<1.2) Sodium 134 L (137-145) mmol/L BUN 26 H (9-20) mg/dL Glucose 134 H (74-99) mg/dL POC Glucose (mg/dL) (75-99) mg/dL Calcium 8.0 L (8.4-10.2) mg/dL Troponin I (0.000-0.034) ng/mL Total Protein 4.7 L (6.3-8.2) g/dL Albumin 2.3 L (3.5-5.0) g/dL Urine Protein (Negative) Urine Ketones (Negative) Urine Bilirubin (Negative) Ur Leukocyte Esterase (Negative) Urine Bacteria (None) /hpf Hyaline Casts (0-2) /lpf Urine Mucus (None) /hpf Urine Sperm (None) /hpf Microbiology - Last 24 Hours (Table) 10/20/20 20:57 Gram Stain - Preliminary Other - Other Wound Culture - Preliminary 10/20/20 20:57 Anaerobic Culture - Preliminary Other - Other <Eleuterio Dean - Last Filed: 10/21/20 12:23> Subjective As above. Patient doing better today. Says the pain he was having preoperatively is improved. Now having incisional discomfort with movement. Venous Dopplers of the lower extremities demonstrate bilateral acute DVT. Echo results pending. Will begin anticoagulation at this time. Monitor hemoglobin while anticoagulation initiated. Continue IV antibiotics. Await cultures. May begin clear liquids. Objective - Vital Signs Vital signs: Vital Signs Temp 98.2 F 10/21/20 04:00 Pulse 80 10/21/20 07:00 Resp 30 H 10/21/20 07:00 BP 100/53 10/21/20 07:00 Pulse Ox 96 10/21/20 07:00 Intake & Output 10/20/20 10/21/20 10/21/20 18:59 06:59 18:59 Intake Total 1575 125 Output Total 550 730 30 Balance -550 845 95 Weight 66.678 kg 73.1 kg Intake: IV 1575 125 D5-0.45% NaCl with KCl 875 125 20Meq/l 1,000 ml @ 125 mls/hr IV .Q8H [facility] Rx#: [id number] Output: Drainage 75 Right Abdomen 75 Urine 550 605 30 Uretheral (Carranza) 550 Estimated Blood Loss 50 Other: Voiding Method Indwelling Catheter - Labs CBC & Chem 7: 10/21/20 03:35 10/21/20 03:35 Labs: Abnormal Lab Results - Last 24 Hours (Table) 10/20/20 10/20/20 10/20/20 Range/Units 14:51 14:51 14:51 RBC (4.30-5.90) m/uL Hgb (13.0-17.5) gm/dL Hct (39.0-53.0) % Plt Count 102 L D (150-450) k/uL Lymphocytes # 0.2 L (1.0-4.8) k/uL PT (9.0-12.0) sec INR (<1.2) Sodium 135 L (137-145) mmol/L BUN 30 H (9-20) mg/dL Glucose 116 H (74-99) mg/dL POC Glucose (mg/dL) (75-99) mg/dL Calcium (8.4-10.2) mg/dL Troponin I (0.000-0.034) ng/mL Total Protein 6.1 L (6.3-8.2) g/dL Albumin 3.3 L (3.5-5.0) g/dL Urine Protein Trace H (Negative) Urine Ketones Trace H (Negative) Urine Bilirubin 1+ H (Negative) Ur Leukocyte Esterase Trace H (Negative) Urine Bacteria Rare H (None) /hpf Hyaline Casts 9 H (0-2) /lpf Urine Mucus Occasional H (None) /hpf Urine Sperm Occasional H (None) /hpf 10/20/20 10/20/20 10/20/20 Range/Units 17:13 17:13 21:45 RBC (4.30-5.90) m/uL Hgb (13.0-17.5) gm/dL Hct (39.0-53.0) % Plt Count (150-450) k/uL Lymphocytes # (1.0-4.8) k/uL PT 12.3 H (9.0-12.0) sec INR 1.2 H (<1.2) Sodium (137-145) mmol/L BUN (9-20) mg/dL Glucose (74-99) mg/dL POC Glucose (mg/dL) 122 H (75-99) mg/dL Calcium (8.4-10.2) mg/dL Troponin I 0.045 H* (0.000-0.034) ng/mL Total Protein (6.3-8.2) g/dL Albumin (3.5-5.0) g/dL Urine Protein (Negative) Urine Ketones (Negative) Urine Bilirubin (Negative) Ur Leukocyte Esterase (Negative) Urine Bacteria (None) /hpf Hyaline Casts (0-2) /lpf Urine Mucus (None) /hpf Urine Sperm (None) /hpf 10/21/20 10/21/20 Range/Units 03:35 03:35 RBC 3.92 L (4.30-5.90) m/uL Hgb 11.9 L (13.0-17.5) gm/dL Hct 36.2 L (39.0-53.0) % Plt Count (150-450) k/uL Lymphocytes # 0.6 L (1.0-4.8) k/uL PT (9.0-12.0) sec INR (<1.2) Sodium 134 L (137-145) mmol/L BUN 26 H (9-20) mg/dL Glucose 134 H (74-99) mg/dL POC Glucose (mg/dL) (75-99) mg/dL Calcium 8.0 L (8.4-10.2) mg/dL Troponin I (0.000-0.034) ng/mL Total Protein 4.7 L (6.3-8.2) g/dL Albumin 2.3 L (3.5-5.0) g/dL Urine Protein (Negative) Urine Ketones (Negative) Urine Bilirubin (Negative) Ur Leukocyte Esterase (Negative) Urine Bacteria (None) /hpf Hyaline Casts (0-2) /lpf Urine Mucus (None) /hpf Urine Sperm (None) /hpf Microbiology - Last 24 Hours (Table) 10/20/20 20:57 Gram Stain - Preliminary Other - Other Wound Culture - Preliminary 10/20/20 20:57 Anaerobic Culture - Preliminary Other - Other Assessment and Plan (1) Bowel perforation Current Visit: Yes Status: Acute Code(s): K63.1 - PERFORATION OF INTESTINE (NONTRAUMATIC) SNOMED Code(s): 95404019
[2020-10-21] MEDS ORDERED: HEPARIN SODIUM,PORCINE 5,000 UNIT/ML 1 ML VIAL IV PRN (12:23)
[2020-10-21 13:27] LABS: INR 1.2 (<1.2); Partial Thromboplastin Time 28.3 sec (22.0-30.0); Prothrombin Time 12.7 sec (9.0-12.0)
[2020-10-21] MEDS: HEPARIN SOD,PORK IN 0.45% NACL 25,000 UNIT in 0.45% NACL 1 250ML.BAG IV SCH (13:49)
[2020-10-21] MEDS ORDERED: LACTATED RINGERS 500 ML IV SCH (14:00)
--- NOTE | 2020-10-21 14:35 | ECHOF ---
Referral Reason:PE with elevated troponin and BNP elevation MEASUREMENTS -------- HEIGHT: 180.3 cm WEIGHT: 79.8 kg BP: RVIDd: 2.7 cm (< 3.3) IVSd: 1.4 cm (0.6 - 1.1) LVIDd: 3.3 cm (3.9 - 5.3) LVPWd: 1.6 cm (0.6 - 1.1) IVSs: 1.7 cm LVIDs: 2.5 cm LVPWs: 2.0 cm LAESV Index (A-L): 45.19 ml/m Ao Diam: 3.1 cm (2.0 - 3.7) AV Cusp: 2.2 cm (1.5 - 2.6) LA Diam: 5.0 cm (2.7 - 3.8) MV EXCURSION: 15.618 mm (> 18.000) MV EF SLOPE: 65 mm/s (70 - 150) EPSS: 0.8 cm MV E Nigel: 0.92 m/s MV DecT: 190 ms MV A Nigel: 0.76 m/s MV E/A Ratio: 1.21 AR PHT: 571 ms RAP: 5.00 mmHg RVSP: 45.07 mmHg FINDINGS -------- Sinus rhythm. This was a technically difficult study with suboptimal views. The left ventricular size is normal. There is moderate concentric left ventricular hypertrophy. O verall left ventricular systolic function is mildly impaired with, an EF between 45 - 50 %. Increas ed LAP Grade 3 Diastolic Dysfunction. Apical cap appears slightly hypokinetic. The right ventricle is normal in size. LA is severely dilated >40 ml/m2 The right atrial size is normal. Lumason used Interatrial and interventricular septum intact. There is mild aortic valve sclerosis. There is mild aortic regurgitation. The mitral valve leaflets are mildly thickened. Mild mitral regurgitation is present. The tricuspid valve appears structurally normal. Mild tricuspid regurgitation present. There is m ild pulmonary hypertension. The right ventricular systolic pressure, as measured by Doppler, is 45. 07mmHg. Trace/mild (physiologic) pulmonic regurgitation. The aortic root size is normal. IVC Not well visulized. There is no pericardial effusion. CONCLUSIONS -------- 1. This was a technically difficult study with suboptimal views. 2. There is moderate concentric left ventricular hypertrophy. 3. Overall left ventricular systolic function is mildly impaired with, an EF between 45 - 50 %. 4. Increased LAP Grade 3 Diastolic Dysfunction. 5. Apical cap appears slightly hypokinetic. 6. The right ventricle is normal in size. 7. LA is severely dilated >40 ml/m2 8. There is mild aortic regurgitation. 9. Mild mitral regurgitation is present. 10. Mild tricuspid regurgitation present. 11. There is mild pulmonary hypertension. 12. Trace/mild (physiologic) pulmonic regurgitation. 13. There is no pericardial effusion. AUTOMOTIVE WELDER: Erica Thakur RDCS
[2020-10-21] MEDS: PIPERACILLIN-TAZOBACTAM 3.375 GM in SODIUM CHLORIDE 0.9% 100 ML IVPB SCH ×2 (15:14→23:19)
[2020-10-21] MEDS ORDERED: LEVOFLOXACIN 500MG-D5W PMX 500 MG in DEXTROSE/WATER 1 100ML.BAG IVPB SCH (19:00)
[2020-10-21 20:02] LABS: HCT 34.9 % (39.0-53.0); HGB 11.4 gm/dL (13.0-17.5); MCH 30.4 pg (25.0-35.0); MCHC 32.8 g/dL (31.0-37.0); MCV 92.7 fL (80.0-100.0); Mean Platelet Volume 7.7; Platelet Count 189 k/uL (150-450); RBC 3.76 m/uL (4.30-5.90); RDW 13.1 % (11.5-15.5); WBC 9.4 k/uL (3.8-10.6)
--- NOTE | 2020-10-21 20:40 | CONS ---
CONSULTATION DATE OF SERVICE: 10/21/2020 REASON FOR CONSULTATION: Perforated bowel, antibiotic management. HISTORY OF PRESENT ILLNESS: The patient is an 85-year-old male who was recently admitted to this facility and was treated for constipation. The patient was discharged home on 10/19, presenting back within 24 hours to the hospital with the chief complaints of nausea and abdominal distention. The patient denied any vomiting. No chest pain. No vomiting. No diarrhea. With these symptoms, the patient was evaluated by the ER physician. On arrival in the ER, the patient did have a low-grade fever of 100.1 degrees Fahrenheit. The patient had a normal white count. Creatinine was normal. The patient had a CT of the abdomen and pelvis was suggestive of pneumoperitoneum; suspect interval perforation of the redundant sigmoid colon. The patient also had a CT angiogram of the chest which shows acute right greater than left PE with overall moderate clot burden. The patient was taken to the OR and is status post laparotomy with evidence of perforated sigmoid colon and fecal impaction; patient with sigmoid colectomy with end-colostomy, manual fecal disimpaction. Abdominal cultures were obtained. He was started on Levaquin and Flagyl. He was admitted to the ICU. Infectious Disease was consulted for further management of antibiotic therapy. The patient at the time of my evaluation is afebrile. The patient denies having any chest pain. He is breathing slightly comfortably. He did mention that his abdominal pain has slightly decreased in intensity. Some nausea but no vomiting and no new symptoms. REVIEW OF SYSTEMS: Positive points have been mentioned in the HPI. Other systems negative. PAST MEDICAL HISTORY: CVA, TIA, hypertension and history of prostate disorder. PAST SURGICAL HISTORY: Surgery to remove clot from the back. Right ankle fused. SOCIAL HISTORY: No history of smoking. Occasionally drinks. No drug use. FAMILY HISTORY: Mother with history of Alzheimer's dementia. ALLERGIES: NO KNOWN DRUG ALLERGIES. MEDICATIONS: The patient is currently on heparin per weight-based protocol, Dilaudid, Flagyl, Narcan, Zofran, Protonix, saline and Levaquin. PHYSICAL EXAMINATION: Blood pressure 113/62 with a pulse of 72, temperature 98. The patient is 97% on 2 L nasal cannula General description is an elderly male lying in bed in no distress. No tachypnea or accessory muscle of respiration use. HEENT EXAMINATION: Slight pallor. No scleral icterus. Oral mucous membrane is dry. NECK: Trachea is central. No thyromegaly. LUNGS: Unlabored breathing. Decreased intensity of breath sounds. No wheeze. HEART: S1, S2. Regular rate and rhythm. ABDOMEN: Soft. Mildly distended. No guarding or rigidity. EXTREMITIES: No edema of the feet. SKIN EXAMINATION: No rash or mass palpable. Neurologically the patient is awake, alert, oriented x3. Mood and affect normal. LABS: Hemoglobin 11.9, white count 7.3, BUN of 26, creatinine 0.84. Electrolytes have been normal. Liver enzymes are normal. Abdominal culture is currently pending. Chest x-ray: interstitial lung disease. DIAGNOSTIC IMPRESSION AND PLAN: 1. Patient admitted to hospital with abdominal pain, abdominal distention in this patient who did have evidence of sigmoid perforation from high . He was discharged recently from this facility and was treated for constipation, then presented within 24 hours with evidence of fecal contamination of the abdominal cavity and fecal peritonitis. Will need to cover for enteric Gram-negative, both aerobes and anaerobes. 2. Acute pulmonary embolism. PLAN: 1. Discontinue Levaquin. 2. Switch over to Zosyn 3.375 grams q.8 hours. 3. Gentle IV fluid. 4. Will follow clinical condition and further adjust medication if needed. Thank you for this consultation. Will follow this patient along with you. MMISMAL / LISAN: [id number] /
--- NOTE | 2020-10-21 21:16 | P.PN ---
Subjective This is a pleasant 85 years old male with past medical history of CVA/TIA, hypertension, residual right hemiparesis. He was admitted with abdominal pain and CAT scan of the abdomen showing free air and free fluid. He underwent exploratory laparotomy with sigmoid colectomy and colostomy and manual disimpaction Also on CT of the abdomen there was suspicion of PE which was shown on CT of the chest to have bilateral PE and bilateral lower extremity DVT on ultrasound of the lower extremities. Patient currently is on heparin drip. Echocardiogram: Showed ejection fraction of 45-50% with slight apical hypokinesia. Vascular surgery with Dr. Kang were consulted and they recommended to continue with heparin drip and this patient bleeds then IVC filter would be indicated per their recommendation. Patient is currently covered with Zosyn and ID team on the case Review of systems CONSTITUTIONAL: No fever, no malaise, no fatigue. HEENT: No recent visual problems or hearing problems. Denied any sore throat. CARDIOVASCULAR: No orthopnea, PND, no palpitations, no syncope. PULMONARY: No chest wall tenderness, no hemoptysis. GASTROINTESTINAL: No diarrhea, no nausea, no vomiting, no abdominal pain. Normoactive bowel sounds. NEUROLOGICAL: No headaches, no weakness, no numbness. HEMATOLOGICAL: Denies any bleeding or petechiae. Active Medications Generic Name Dose Route Start Last Admin Trade Name Freq PRN Reason Stop Dose Admin Heparin Sodium (Porcine) 0 unit 10/21/20 12:23 Heparin Sodium,Porcine 5,000 Unit/Ml 1 Ml Vial IV PER PROTOCOL PRN Low PTT Protocol Hydromorphone HCl 1 mg 10/20/20 21:07 10/21/20 15:14 Hydromorphone 1 Mg/Ml 1 Ml Syringe IVP 1 mg Q3HR PRN Administration Moderate to Severe Pain Sodium Chloride 1,000 mls @ 75 mls/hr 10/20/20 14:30 10/21/20 14:08 Saline 0.9% IV Not Given .[id number] KATHLEEN Potassium Chloride/Dextrose/Sod Cl 1,000 mls @ 125 mls/hr 10/20/20 21:15 10/21/20 13:58 D5%-1/2ns-Kcl 20 Meq/L Iv Solution IV 125 mls/hr .Q8H KATHLEEN Administration Metronidazole 500 mg/ IV 100 mls @ 100 mls/hr 10/21/20 02:00 10/21/20 17:11 Solution IVPB 100 mls/hr Q8H KATHLEEN Administration Piperacillin Sod/Tazobactam 100 mls @ 25 mls/hr 10/21/20 16:00 10/21/20 15:14 Sod 3.375 gm/ Sodium Chloride IVPB 25 mls/hr Q8HR KATHLEEN Administration Heparin Sodium/Sodium Chloride 250 mls @ 8.772 mls/hr 10/21/20 12:30 10/21/20 13:49 25,000 unit/ Sodium Chloride IV 12 units/kg/hr .Q24H KATHLEEN 8.772 mls/hr Administration Protocol 12 UNITS/KG/HR Naloxone HCl 0.2 mg 10/20/20 17:45 Naloxone 0.4 Mg/Ml 1 Ml Vial IV Q2M PRN Opioid Reversal Ondansetron HCl 4 mg 10/20/20 21:07 Ondansetron 4 Mg/2 Ml Vial IVP Q8HR PRN Nausea And Vomiting Pantoprazole Sodium 40 mg 10/21/20 09:00 10/21/20 11:14 Pantoprazole 40 Mg/10 Ml Vial IV 40 mg DAILY KATHLEEN Administration Objective - Vital Signs Vital signs: Vital Signs Temp 98.5 F 10/21/20 16:00 Pulse 70 10/21/20 17:00 Resp 16 10/21/20 17:00 BP 103/60 10/21/20 17:00 Pulse Ox 98 10/21/20 17:00 Intake & Output 10/20/20 10/21/20 10/21/20 18:59 06:59 18:59 Intake Total 1575 2075 Output Total 550 730 185 Balance -730 725 2384 Weight 66.678 kg 73.1 kg Intake: IV 1575 2075 D5-0.45% NaCl with KCl 875 1375 20Meq/l 1,000 ml @ 125 mls/hr IV .Q8H KATHLEEN Rx#: [id number] Lactated Ringers 500 ml @ 500 500 mls/hr IV .Q1H KATHLEEN Rx#:[id number] metroNIDAZOLE-NS PMX 500 200 mg In Saline 1 100ml.bag @ 100 mls/hr IVPB ONCE STA Rx#:[id number] Output: Drainage 75 Right Abdomen 75 Urine 550 605 185 Uretheral ([place]) 550 Estimated Blood Loss 50 Other: Voiding Method Indwelling Catheter Indwelling Catheter - Exam GENERAL: The patient is alert and oriented x3, not in any acute distress. Well developed, well nourished. HEENT: Pupils are round and equally reacting to light. EOMI. No scleral icterus. No conjunctival pallor. Normocephalic, atraumatic. No pharyngeal erythema. No thyromegaly. CARDIOVASCULAR: S1 and S2 present. No murmurs, rubs, or gallops. PULMONARY: Chest is clear to auscultation, no wheezing or crackles. -ABDOMEN: Soft, nontender, nondistended, normoactive bowel sounds. No palpable organomegaly. Surgical wound is closed and healing with a dressing MUSCULOSKELETAL: No joint swelling or deformity. EXTREMITIES: No cyanosis, clubbing, or pedal edema. NEUROLOGICAL: Gross neurological examination did not reveal any focal deficits. SKIN: No rashes. no petechiae. - Labs CBC & Chem 7: 10/21/20 19:51 10/21/20 03:35 Labs: Abnormal Lab Results - Last 24 Hours (Table) 10/20/20 10/21/20 10/21/20 Range/Units 21:45 03:35 03:35 RBC 3.92 L (4.30-5.90) m/uL Hgb 11.9 L (13.0-17.5) gm/dL Hct 36.2 L (39.0-53.0) % Lymphocytes # 0.6 L (1.0-4.8) k/uL PT (9.0-12.0) sec INR (<1.2) Sodium 134 L (137-145) mmol/L BUN 26 H (9-20) mg/dL Glucose 134 H (74-99) mg/dL POC Glucose (mg/dL) 122 H (75-99) mg/dL Calcium 8.0 L (8.4-10.2) mg/dL Total Protein 4.7 L (6.3-8.2) g/dL Albumin 2.3 L (3.5-5.0) g/dL 10/21/20 Range/Units 12:24 RBC (4.30-5.90) m/uL Hgb (13.0-17.5) gm/dL Hct (39.0-53.0) % Lymphocytes # (1.0-4.8) k/uL PT 12.7 H (9.0-12.0) sec INR 1.2 H (<1.2) Sodium (137-145) mmol/L BUN (9-20) mg/dL Glucose (74-99) mg/dL POC Glucose (mg/dL) (75-99) mg/dL Calcium (8.4-10.2) mg/dL Total Protein (6.3-8.2) g/dL Albumin (3.5-5.0) g/dL Microbiology - Last 24 Hours (Table) 10/20/20 20:57 Gram Stain - Preliminary Other - Other Wound Culture - Preliminary 10/20/20 20:57 Anaerobic Culture - Preliminary Other - Other Assessment and Plan Assessment: Bowel/sigmoid perforation status post exploratory laparotomy, sigmoid colectomy and colostomy with manual fecal disimpaction -Bilateral pulmonary emboli secondary to bilateral DVT. With no evidence of RV citrine on CT or echo -Mild hypoxic respiratory failure -Secondary peritonitis -History of CVA with right hemiparesis -Hypertension Plan: This is a pleasant 85 years old male who presents with bowel obstruction and perforation status post sigmoid colectomy and colostomy. Also has bilateral PE/DVT. Currently he is kept on heparin drip with close monitoring for signs of rebleeding with vascular surgery close monitoring the case to place IVC filter. Patient cannot tolerate anticoagulation Patient also followed by bedspread cutter hand, infectious disease and surgery primary team He kept on broad-spectrum antibiotic in the form of Zosyn, gentle hydration Continue same treatment. Continue with symptomatic treatment. Resume home medication. Monitor lytes and vitals. DVT and GI prophylaxis. Further recommendationsas per clinical course of the patient DVT prophylaxis: heparin GI Prophylaxis: Pepcid Prognosis is guarded
[2020-10-22 00:14] LABS: HCT 35.8 % (39.0-53.0); HGB 11.6 gm/dL (13.0-17.5); MCH 30.2 pg (25.0-35.0); MCHC 32.5 g/dL (31.0-37.0); MCV 93.1 fL (80.0-100.0); Mean Platelet Volume 7.8; Platelet Count 201 k/uL (150-450); RBC 3.85 m/uL (4.30-5.90); RDW 13.1 % (11.5-15.5); WBC 9.5 k/uL (3.8-10.6)
[2020-10-22] MEDS: metroNIDAZOLE-NS PMX 500 MG in SALINE 1 100ML.BAG IVPB SCH ×3 (02:10→17:09)
[2020-10-22 04:01] LABS: Basophils % (A) 0 %; Eosinophils % (A) 0 %; HCT 35.5 % (39.0-53.0); HGB 11.3 gm/dL (13.0-17.5); Lymphocytes # (A) 0.8 k/uL (1.0-4.8); Lymphocytes % (A) 9 %; MCH 29.7 pg (25.0-35.0); MCHC 31.8 g/dL (31.0-37.0); MCV 93.5 fL (80.0-100.0); Mean Platelet Volume 8.1; Monocytes # (A) 0.4 k/uL (0-1.0); Monocytes % (A) 5 %; Neutrophils # (A) 7.4 k/uL (1.3-7.7); Neutrophils % (A) 84 %; Platelet Count 209 k/uL (150-450); RDW 13.4 % (11.5-15.5); WBC 8.8 k/uL (3.8-10.6)
[2020-10-22] MEDS: SODIUM CHLORIDE 0.9% 1,000 ML IV SCH ×2 (04:06→17:16)
[2020-10-22 04:20] LABS: African American GFR (CKD) >90 (>60 ml/min/1.73 sqM); Anion Gap 4 mmol/L; Blood Urea Nitrogen 26 mg/dL (9-20); Calcium 8.1 mg/dL (8.4-10.2); Carbon Dioxide 23 mmol/L (22-30); Chloride 106 mmol/L (98-107); Glucose 111 mg/dL (74-99); Non-African American GFR(CKD) 82 (>60 ml/min/1.73 sqM); Potassium 4.4 mmol/L (3.5-5.1); Sodium 133 mmol/L (137-145)
[2020-10-22] MEDS: HYDROmorphone 1 MG/ML 1 ML SYRINGE IVP PRN ×3 (06:01→20:00)
--- NOTE | 2020-10-22 08:29 | PN ---
PROGRESS NOTE Mr. Bright is an 85-year-old male who presented with abdominal discomfort, was found to have a ruptured viscus, and at the same time was found to have evidence of pulmonary embolism and deep vein thrombosis. He is feeling well today. His breathing is stable. He denies any chest pain. He still has some abdominal discomfort. He has no significant dyspnea. He had an echocardiogram performed yesterday that revealed a preserved systolic function with no significant dilatation of the right ventricle and no evidence of pulmonary hypertension. He was felt not to be a candidate for mechanical thrombectomy. He was started on IV heparin. He continues to be in sinus mechanism and with no evidence of atrial fibrillation. PHYSICAL EXAMINATION: VITAL SIGNS: Blood pressure 115/59 with a heart rate in the 70s. LUNGS: With a few crackles at the bases, no wheezes. HEART: Regular rate and rhythm, S1-S2, no S3 with systolic murmur. No diastolic murmur. No rub. ABDOMEN: Soft, mild tenderness. Colostomy in place. EXTREMITIES: No edema. LAB DATA: Lab data revealed BUN and creatinine 26 and 0.79, potassium 4.4, hemoglobin of 11.3, white blood cell of 8.8. IMPRESSION: 1. Status post perforated sigmoid, status post colostomy. 2. Pulmonary embolism. 3. Prior history of stroke. 4. History of hyperlipidemia. RECOMMENDATION: From the cardiac standpoint, will switch him to oral anticoagulation when it is agreeable with Dr. Dean. Otherwise, continue with his medical regimen and follow his rhythm to see if further adjustment of his medical regimen is needed. MMODL / IJN: [id number] /
--- NOTE | 2020-10-22 09:10 | P.PN ---
Subjective Progress Note Date: 10/22/20 Principal diagnosis: Pulmonary embolism. This is an 85-year-old male who presents to the emergency department, complaining of unable to urinate. The patient also has not had a bowel movement in 3 weeks. He apparently was recently admitted for constipation but then was discharged. The patient has a history of colitis. The patient apparently feels nauseated, and his abdomen is distended. He denies any vomiting. Denied any chest pain. He also denied any shortness of breath. He apparently was found have a perforated viscus, and underwent a Kumar's procedure by Dr. Dean. He is postop day #1. Dr. Dean called me yesterday and asked whether or not we could put the patient in the ICU overnight. He was concerned given the patient's age. In addition, in the process of evaluating the patient, the patient was found to have bilateral pulmonary emboli, moderate clot burden, right greater than left, and also bilateral lower extremity DVT. Because of the recent surgery, he cannot be heparinized. Apparently, the vascular surgeon was called, and at this point, no interventions are planned. The patient apparently has a history of CVA, hypertension, and chronic prostate disease. He is currently on lactulose, MiraLAX, multiple vitamins, Flomax, Namenda, and Zocor. He is resting comfortably in the ICU. He is on O2 at 2 L. He is getting dextrose, with half-normal saline, with 20 mEq of potassium at 125 mL an hour. I didn't passed onto the nurse, that may be vascular surgery would prefer to do a Cicero filter. The patient is without distress. Progress note dated 10/22/2020. This is a 85-year-old male, who is postop day #2, status post Kumar's procedure, with sigmoid colectomy and end colostomy, for perforated sigmoid colon and fecal impaction. The patient was also discovered have bilateral DVTs, and bilateral pulmonary emboli, right greater than left, with moderate clot burden. The patient's currently on IV heparin, weight based protocol, D5.45, with 20 of potassium, 125 mL an hour, and O2 at 2 L. The patient has a history of CVA, BPH, dementia, hyperlipidemia, essential hypertension and chronic constipation. Surprisingly, the patient seemed be doing relatively well. I did ask vascular surgery whether or not a Cicero filter would be appropriate given the fact that he was at high risk for anticoagulation given his age. I nitially, the surgeon did not want to start blood thinners because of the recent surgery. Currently, from the clinical standpoint, he is doing well. White count 8.8, hemoglobin 11.3, hematocrit 35.5, and platelet count 209,000. PTT is 45.7. Sodium 133, potassium 4.4, chlorides 106, CO2 23, anion gap 4, BUN 26, and creatinine 0.79. Objective - Vital Signs Vital signs: Vital Signs Temp 98.6 F 10/22/20 08:00 Pulse 84 10/22/20 08:00 Resp 12 10/22/20 08:00 BP 96/48 10/22/20 08:00 Pulse Ox 94 L 10/22/20 08:00 Intake & Output 10/21/20 10/22/20 10/22/20 18:59 06:59 18:59 Intake Total 2200 1750 250 Output Total 210 285 65 Balance 1989 1465 185 Weight 76.2 kg Intake: IV 2200 1500 250 D5-0.45% NaCl with KCl 1500 1500 250 20Meq/l 1,000 ml @ 125 mls/hr IV .Q8H KATHLEEN Rx#: [id number] Lactated Ringers 500 ml @ 500 500 mls/hr IV .Q1H KATHLEEN Rx#:[id number] metroNIDAZOLE-NS PMX 500 200 mg In Saline 1 100ml.bag @ 100 mls/hr IVPB ONCE STA Rx#:[id number] Oral 250 Output: Drainage 40 Right Abdomen 40 Urine 210 245 65 Other: Voiding Method Indwelling Catheter Indwelling Catheter - Exam No acute distress, oriented 3. Nasal O2 in place at 2 L. HEENT examination is grossly unremarkable. Mucous membranes are moist. No oral lesions. Neck supple. Full range of motion. No adenopathy thyromegaly or neck vein dis tention. Cardiovascular examination reveals regular rhythm rate. S1-S2 normal. No S3 or S4. No discernible murmur noted. Heart rate is 84 bpm. Lungs reveal clear breath sounds. Her sounds are equal bilaterally. No adventitious lung sounds including wheezes rhonchi or crackles. Abdomen soft, without bowel sounds. Colostomy is noted. Extremities are intact. No cyanosis clubbing or edema. Skin is without rash or lesion. Neurologic examination is brief but nonfocal. - Labs CBC & Chem 7: 10/22/20 03:41 10/22/20 03:41 Labs: Abnormal Lab Results - Last 24 Hours (Table) 10/21/20 10/21/20 10/21/20 Range/Units 12:24 19:51 19:51 RBC 3.76 L (4.30-5.90) m/uL Hgb 11.4 L (13.0-17.5) gm/dL Hct 34.9 L (39.0-53.0) % Lymphocytes # (1.0-4.8) k/uL PT 12.7 H (9.0-12.0) sec INR 1.2 H (<1.2) APTT 43.6 H (22.0-30.0) sec Sodium (137-145) mmol/L BUN (9-20) mg/dL Glucose (74-99) mg/dL Calcium (8.4-10.2) mg/dL 10/22/20 10/22/20 10/22/20 Range/Units 00:00 03:41 03:41 RBC 3.85 L 3.80 L (4.30-5.90) m/uL Hgb 11.6 L 11.3 L (13.0-17.5) gm/dL Hct 35.8 L 35.5 L (39.0-53.0) % Lymphocytes # 0.8 L (1.0-4.8) k/uL PT (9.0-12.0) sec INR (<1.2) APTT (22.0-30.0) sec Sodium 133 L (137-145) mmol/L BUN 26 H (9-20) mg/dL Glucose 111 H (74-99) mg/dL Calcium 8.1 L (8.4-10.2) mg/dL 10/22/20 Range/Units 03:41 RBC (4.30-5.90) m/uL Hgb (13.0-17.5) gm/dL Hct (39.0-53.0) % Lymphocytes # (1.0-4.8) k/uL PT (9.0-12.0) sec INR (<1.2) APTT 45.7 H (22.0-30.0) sec Sodium (137-145) mmol/L BUN (9-20) mg/dL Glucose (74-99) mg/dL Calcium (8.4-10.2) mg/dL Microbiology - Last 24 Hours (Table) 10/20/20 17:45 Blood Culture - Preliminary Blood No Growth after 24 hours 10/20/20 18:00 Blood Culture - Preliminary Blood No Growth after 24 hours 10/20/20 20:57 Gram Stain - Preliminary Other - Other Wound Culture - Preliminary Group D Enterococcus Assessment and Plan Assessment: Postop day #2, status post Kumar's procedure, with sigmoid colectomy and end colostomy, for perforated sigmoid colon and fecal impaction. Bilateral pulmonary emboli, right greater than left, with moderate clot burden. Bilateral lower extremity DVT. History of CVA. History of BPH. History of dementia. History of hyperlipidemia. History of hypertension. History of chronic constipation. Plan: Plan dated 10/22/2020. The patient appears to be doing relatively well. He is only requiring 2 L nasal O2. We do recommend deep breathing, coughing, and clearing of secretions, as well as hourly use of the incentive spirometer. His IV will be turned down to 75 mL an hour. He remains on heparin via weightbase protocol. Additional recommendations and suggestions are forthcoming. We will continue to follow the patient. Labs, x-rays, and medications are all reviewed. Time with Patient: Less than 30
[2020-10-22] MEDS: PIPERACILLIN-TAZOBACTAM 3.375 GM in SODIUM CHLORIDE 0.9% 100 ML IVPB SCH ×3 (09:23→23:22)
[2020-10-22] MEDS: PANTOPRAZOLE 40 MG/10 ML VIAL IV SCH (09:24)
[2020-10-22] MEDS: D5-0.45% NACL WITH KCL 20MEQ/L 1,000 ML IV SCH ×2 (09:25→14:15)
[2020-10-22 12:23] LABS: Glucose,Whole Blood 141 mg/dL (75-99)
--- NOTE | 2020-10-22 12:52 | PN ---
PROGRESS NOTE DATE OF SERVICE: 10/22/2020 REASON FOR FOLLOWUP: Secondary peritonitis and perforated colon. INTERVAL HISTORY: The patient is currently afebrile. The patient is breathing comfortably. The patient denies having any chest pain. No shortness of breath. No cough. Abdominal pain is currently controlled. No nausea. No vomiting. No diarrhea. PHYSICAL EXAMINATION: Blood pressure 107/52, pulse of 82, temperature 98.3. He is 96% on 2 L nasal cannula. General description is an elderly male lying in bed in no distress. Respiratory system: Unlabored breathing. Clear to auscultation anteriorly. Heart S1, S2. Regular rate and rhythm. ABDOMEN: Soft, no tenderness. EXTREMITIES: No edema of feet. LABS: Hemoglobin 11.1, white count 8.8. BUN of 26, creatinine 0.79. Abdominal culture with Enterococcus. DIAGNOSTIC IMPRESSION AND PLAN: Patient with secondary peritonitis from perforated bowel, status post diverting colostomy. Abdominal cultures with Enterococcus. Patient is covered with Zosyn to continue and monitor clinical course closely. Continue with supportive care. MMODL / IJN: [id number] /
[2020-10-22] MEDS: HEPARIN SOD,PORK IN 0.45% NACL 25,000 UNIT in 0.45% NACL 1 250ML.BAG IV SCH (13:20)
--- NOTE | 2020-10-22 18:40 | P.PN ---
Subjective This is a pleasant 85 years old male with past medical history of CVA/TIA, hypertension, residual right hemiparesis. He was admitted with abdominal pain and CAT scan of the abdomen showing free air and free fluid. He underwent exploratory laparotomy with sigmoid colectomy and colostomy and manual disimpaction Also on CT of the abdomen there was suspicion of PE which was shown on CT of the chest to have bilateral PE and bilateral lower extremity DVT on ultrasound of the lower extremities. Patient currently is on heparin drip. Echocardiogram: Showed ejection fraction of 45-50% with slight apical hypokinesia. Vascular surgery with Dr. aKng were consulted and they recommended to continue with heparin drip and this patient bleeds then IVC filter would be indicated per their recommendation. Patient is currently covered with Zosyn and ID team on the case 10/22/20 Patient is in the ICU, closely monitored for his perforated viscus where his been treated for secondary peritonitis and bilateral DVT and PE He is lying in bed generally weak still complaining from pain on the right lower abdomen and surgical site. Histo on heparin drip and D5 half-normal saline at 75 mL/h. Also on Zosyn and Flagyl He is on clear liquid diet eating about 50-75% of his meals CBC and BMP are stable Blood culture is growing group D enterococcus Review of systems CONSTITUTIONAL: No fever, no malaise, no fatigue. HEENT: No recent visual problems or hearing problems. Denied any sore throat. CARDIOVASCULAR: No orthopnea, PND, no palpitations, no syncope. PULMONARY: No chest wall tenderness, no hemoptysis. GASTROINTESTINAL: No diarrhea, no nausea, no vomiting, no abdominal pain. Normoactive bowel sounds. NEUROLOGICAL: No headaches, no weakness, no numbness. HEMATOLOGICAL: Denies any bleeding or petechiae. Active Medications Generic Name Dose Route Start Last Admin Trade Name Freq PRN Reason Stop Dose Admin Heparin Sodium (Porcine) 0 unit 10/21/20 12:23 Heparin Sodium,Porcine 5,000 Unit/Ml 1 Ml Vial IV PER PROTOCOL PRN Low PTT Protocol Hydromorphone HCl 1 mg 10/20/20 21:07 10/22/20 13:19 Hydromorphone 1 Mg/Ml 1 Ml Syringe IVP 1 mg Q3HR PRN Administration Moderate to Severe Pain Sodium Chloride 1,000 mls @ 75 mls/hr 10/20/20 14:30 10/22/20 17:16 Saline 0.9% IV Not Given .[id number] KATHLEEN Potassium Chloride/Dextrose/Sod Cl 1,000 mls @ 75 mls/hr 10/20/20 21:15 10/22/20 14:15 D5%-1/2ns-Kcl 20 Meq/L Iv Solution IV 75 mls/hr .[id number] KATHLEEN Administration Metronidazole 500 mg/ IV 100 mls @ 100 mls/hr 10/21/20 02:00 10/22/20 17:09 Solution IVPB 100 mls/hr Q8H KATHLEEN Administration Piperacillin Sod/Tazobactam 100 mls @ 25 mls/hr 10/21/20 16:00 10/22/20 17:08 Sod 3.375 gm/ Sodium Chloride IVPB 25 mls/hr Q8HR KATHLEEN Administration Heparin Sodium/Sodium Chloride 250 mls @ 8.772 mls/hr 10/21/20 12:30 10/22/20 13:20 25,000 unit/ Sodium Chloride IV 12 units/kg/hr .Q24H KATHLEEN 8.772 mls/hr Administration Protocol 12 UNITS/KG/HR Naloxone HCl 0.2 mg 10/20/20 17:45 Naloxone 0.4 Mg/Ml 1 Ml Vial IV Q2M PRN Opioid Reversal Ondansetron HCl 4 mg 10/20/20 21:07 Ondansetron 4 Mg/2 Ml Vial IVP Q8HR PRN Nausea And Vomiting Pantoprazole Sodium 40 mg 10/21/20 09:00 10/22/20 09:24 Pantoprazole 40 Mg/10 Ml Vial IV 40 mg DAILY KATHLEEN Administration Objective - Vital Signs Vital signs: Vital Signs Temp 98.6 F 10/22/20 08:00 Pulse 78 10/22/20 11:00 Resp 10 L 10/22/20 11:00 BP 120/70 10/22/20 11:00 Pulse Ox 97 10/22/20 11:00 Intake & Output 10/21/20 10/22/20 10/22/20 18:59 06:59 18:59 Intake Total 2200 1750 675 Output Total 210 285 168 Balance 1989 1465 507 Weight 76.2 kg 76.2 kg Intake: IV 2200 1500 675 D5-0.45% NaCl with KCl 1500 1500 475 20Meq/l 1,000 ml @ 75 mls /hr IV .[id number] [facility] Rx#: [id number] Lactated Ringers 500 ml @ 500 500 mls/hr IV .Q1H [facility] Rx#:[id number] Piperacillin-Tazobactam 3 100 .375 gm In Sodium Chloride 0.9% 100 ml @ 25 mls/hr IVPB Q8HR KATHLEEN Rx# :[id number] metroNIDAZOLE-NS PMX 500 200 100 mg In Saline 1 100ml.bag @ 100 mls/hr IVPB ONCE STA Rx#:[id number] Oral 250 Output: Drainage 40 20 Right Abdomen 40 20 Urine 210 245 148 Other: Voiding Method Indwelling Catheter Indwelling Catheter Indwelling Catheter - Exam GENERAL: The patient is alert and oriented x3, not in any acute distress. Well developed, well nourished. HEENT: Pupils are round and equally reacting to light. EOMI. No scleral icterus. No conjunctival pallor. Normocephalic, atraumatic. No pharyngeal erythema. No thyromegaly. CARDIOVASCULAR: S1 and S2 present. No murmurs, rubs, or gallops. PULMONARY: Chest is clear to auscultation, no wheezing or crackles. -ABDOMEN: Soft, nontender, nondistended, normoactive bowel sounds. No palpable organomegaly. Surgical wound is closed and healing with a dressing MUSCULOSKELETAL: No joint swelling or deformity. EXTREMITIES: No cyanosis, clubbing, or pedal edema. NEUROLOGICAL: Gross neurological examination did not reveal any focal deficits. SKIN: No rashes. no petechiae. - Labs CBC & Chem 7: 10/22/20 03:41 10/22/20 03:41 Labs: Abnormal Lab Results - Last 24 Hours (Table) 10/21/20 10/21/20 10/21/20 Range/Units 12:24 19:51 19:51 RBC 3.76 L (4.30-5.90) m/uL Hgb 11.4 L (13.0-17.5) gm/dL Hct 34.9 L (39.0-53.0) % Lymphocytes # (1.0-4.8) k/uL PT 12.7 H (9.0-12.0) sec INR 1.2 H (<1.2) APTT 43.6 H (22.0-30.0) sec Sodium (137-145) mmol/L BUN (9-20) mg/dL Glucose (74-99) mg/dL POC Glucose (mg/dL) (75-99) mg/dL Calcium (8.4-10.2) mg/dL 10/22/20 10/22/20 10/22/20 Range/Units 00:00 03:41 03:41 RBC 3.85 L 3.80 L (4.30-5.90) m/uL Hgb 11.6 L 11.3 L (13.0-17.5) gm/dL Hct 35.8 L 35.5 L (39.0-53.0) % Lymphocytes # 0.8 L (1.0-4.8) k/uL PT (9.0-12.0) sec INR (<1.2) APTT (22.0-30.0) sec Sodium 133 L (137-145) mmol/L BUN 26 H (9-20) mg/dL Glucose 111 H (74-99) mg/dL POC Glucose (mg/dL) (75-99) mg/dL Calcium 8.1 L (8.4-10.2) mg/dL 10/22/20 10/22/20 Range/Units 03:41 12:02 RBC (4.30-5.90) m/uL Hgb (13.0-17.5) gm/dL Hct (39.0-53.0) % Lymphocytes # (1.0-4.8) k/uL PT (9.0-12.0) sec INR (<1.2) APTT 45.7 H (22.0-30.0) sec Sodium (137-145) mmol/L BUN (9-20) mg/dL Glucose (74-99) mg/dL POC Glucose (mg/dL) 141 H (75-99) mg/dL Calcium (8.4-10.2) mg/dL Microbiology - Last 24 Hours (Table) 10/20/20 17:45 Blood Culture - Preliminary Blood No Growth after 24 hours 10/20/20 18:00 Blood Culture - Preliminary Blood No Growth after 24 hours 10/20/20 20:57 Gram Stain - Preliminary Other - Other Wound Culture - Preliminary Group D Enterococcus Assessment and Plan Assessment: -Bowel/sigmoid perforation status post exploratory laparotomy, sigmoid colectomy and colostomy with manual fecal disimpaction -Bilateral pulmonary emboli secondary to bilateral DVT. With no evidence of RV citrine on CT or echo -Mild hypoxic respiratory failure -Secondary peritonitis -History of CVA with right hemiparesis -Hypertension Plan: This is a pleasant 85 years old male who presents with bowel obstruction and perforation status post sigmoid colectomy and colostomy. Also has bilateral PE/DVT. Currently he is kept on heparin drip with close monitoring for signs of rebleeding with vascular surgery close monitoring the case to place IVC filter. Patient cannot tolerate anticoagulation Patient also followed by manager heart failure, infectious disease and surgery primary team He kept on broad-spectrum antibiotic in the form of Zosyn, gentle hydration Continue same treatment. Continue with symptomatic treatment. Resume home m edication. Monitor lytes and vitals. DVT and GI prophylaxis. Further recommendationsas per clinical course of the patient DVT prophylaxis: heparin GI Prophylaxis: Pepcid Prognosis is guarded
--- NOTE | 2020-10-22 19:40 | P.PN ---
Subjective Progress Note Date: 10/22/20 Has bed in sitting position. He is on Ensure clears. Pain is tolerable. Doing fairly well following surgery. May go to floor from ICU when stable. Carranza with dark chante urine Objective - Vital Signs Vital signs: Vital Signs Temp 98.1 F 10/22/20 16:00 Pulse 92 10/22/20 17:00 Resp 15 10/22/20 17:00 BP 96/51 10/22/20 17:00 Pulse Ox 94 L 10/22/20 17:00 Intake & Output 10/22/20 10/22/20 10/23/20 06:59 18:59 06:59 Intake Total 1750 1531.288 Output Total 285 388 Balance 1465 1143.288 Weight 76.2 kg 76.2 kg Intake: IV 1500 1325 D5-0.45% NaCl with KCl 1500 925 20Meq/l 1,000 ml @ 75 mls /hr IV .[id number] [facility] Rx#: [id number] Piperacillin-Tazobactam 3 200 .375 gm In Sodium Chloride 0.9% 100 ml @ 25 mls/hr IVPB Q8HR [facility] Rx# :[id number] metroNIDAZOLE-NS PMX 500 100 mg In Saline 1 100ml.bag @ 100 mls/hr IVPB ONCE [facility] Rx#:[id number] metroNIDAZOLE-NS PMX 500 100 mg In Saline 1 100ml.bag @ 100 mls/hr IVPB Q8H [facility] Rx#:[id number] Intake, IV Titration 206.288 Amount Heparin Sod,Pork in 0.45% 206.288 NaCl 25,000 unit In 0.45 % NaCl 1 250ml.bag @ 12 UNITS/KG/HR 8.772 mls/hr IV .Q24H [facility] Rx#: [id number] Oral 250 Output: Drainage 40 20 Right Abdomen 40 20 Urine 245 368 Other: Voiding Method Indwelling Catheter Indwelling Catheter - Labs CBC & Chem 7: 10/22/20 03:41 10/22/20 03:41 Labs: Abnormal Lab Results - Last 24 Hours (Table) 10/21/20 10/21/20 10/22/20 Range/Units 19:51 19:51 00:00 RBC 3.76 L 3.85 L (4.30-5.90) m/uL Hgb 11.4 L 11.6 L (13.0-17.5) gm/dL Hct 34.9 L 35.8 L (39.0-53.0) % Lymphocytes # (1.0-4.8) k/uL APTT 43.6 H (22.0-30.0) sec Sodium (137-145) mmol/L BUN (9-20) mg/dL Glucose (74-99) mg/dL POC Glucose (mg/dL) (75-99) mg/dL Calcium (8.4-10.2) mg/dL 10/22/20 10/22/20 10/22/20 Range/Units 03:41 03:41 03:41 RBC 3.80 L (4.30-5.90) m/uL Hgb 11.3 L (13.0-17.5) gm/dL Hct 35.5 L (39.0-53.0) % Lymphocytes # 0.8 L (1.0-4.8) k/uL APTT 45.7 H (22.0-30.0) sec Sodium 133 L (137-145) mmol/L BUN 26 H (9-20) mg/dL Glucose 111 H (74-99) mg/dL POC Glucose (mg/dL) (75-99) mg/dL Calcium 8.1 L (8.4-10.2) mg/dL 10/22/20 Range/Units 12:02 RBC (4.30-5.90) m/uL Hgb (13.0-17.5) gm/dL Hct (39.0-53.0) % Lymphocytes # (1.0-4.8) k/uL APTT (22.0-30.0) sec Sodium (137-145) mmol/L BUN (9-20) mg/dL Glucose (74-99) mg/dL POC Glucose (mg/dL) 141 H (75-99) mg/dL Calcium (8.4-10.2) mg/dL Microbiology - Last 24 Hours (Table) 10/20/20 17:45 Blood Culture - Preliminary Blood No Growth after 24 hours 10/20/20 18:00 Blood Culture - Preliminary Blood No Growth after 24 hours 10/20/20 20:57 Gram Stain - Preliminary Other - Other Wound Culture - Preliminary Group D Enterococcus
[2020-10-23 01:00] LABS: African American GFR (CKD) >90 (>60 ml/min/1.73 sqM); Anion Gap 4 mmol/L; Blood Urea Nitrogen 18 mg/dL (9-20); Calcium 7.7 mg/dL (8.4-10.2); Carbon Dioxide 22 mmol/L (22-30); Chloride 104 mmol/L (98-107); Glucose 129 mg/dL (74-99); Non-African American GFR(CKD) 80 (>60 ml/min/1.73 sqM); Phosphorus 2.4 mg/dL (2.5-4.5); Potassium 4.1 mmol/L (3.5-5.1); Sodium 130 mmol/L (137-145)
[2020-10-23] MEDS: metroNIDAZOLE-NS PMX 500 MG in SALINE 1 100ML.BAG IVPB SCH ×3 (01:57→17:14)
[2020-10-23] MEDS ORDERED: SODIUM PHOSPHATE 10 MMOL in SODIUM CHLORIDE 0.9% 250 ML IVPB ONE (02:08)
[2020-10-23] MEDS: HYDROmorphone 1 MG/ML 1 ML SYRINGE IVP PRN ×2 (03:51→22:21)
[2020-10-23 04:08] LABS: Basophils % (A) 0 %; Eosinophils % (A) 1 %; HCT 33.1 % (39.0-53.0); HGB 10.8 gm/dL (13.0-17.5); Lymphocytes # (A) 0.8 k/uL (1.0-4.8); Lymphocytes % (A) 10 %; MCH 29.9 pg (25.0-35.0); MCHC 32.5 g/dL (31.0-37.0); MCV 92.2 fL (80.0-100.0); Mean Platelet Volume 7.9; Monocytes # (A) 0.4 k/uL (0-1.0); Monocytes % (A) 5 %; Neutrophils # (A) 6.8 k/uL (1.3-7.7); Neutrophils % (A) 84 %; Platelet Count 199 k/uL (150-450); RDW 13.2 % (11.5-15.5); WBC 8.2 k/uL (3.8-10.6)
[2020-10-23 04:17] LABS: African American GFR (CKD) >90 (>60 ml/min/1.73 sqM); Anion Gap 5 mmol/L; Blood Urea Nitrogen 17 mg/dL (9-20); Calcium 7.8 mg/dL (8.4-10.2); Carbon Dioxide 21 mmol/L (22-30); Chloride 104 mmol/L (98-107); Glucose 101 mg/dL (74-99); Non-African American GFR(CKD) 80 (>60 ml/min/1.73 sqM); Potassium 4.1 mmol/L (3.5-5.1); Sodium 130 mmol/L (137-145)
[2020-10-23] MEDS: D5-0.45% NACL WITH KCL 20MEQ/L 1,000 ML IV SCH ×2 (09:24→14:33)
--- NOTE | 2020-10-23 09:41 | PN ---
PROGRESS NOTE Mr. Bright is an 85-year-old male who presented with perforated viscus. He underwent Luc's procedure with sigmoid colectomy and was found to have bilateral pulmonary emboli with evidence of DVT. He had a prior history of CVA. He has been on IV heparin. There was no evidence of significant right ventricle strain and he had no indication to undergo mechanical thrombectomy. Hemodynamically, he is stable. He is feeling well this morning. He has some abdominal pain, but he is breathing stable. He denies any dizziness or palpitation. He denies any nausea. He continues to be on IV heparin. PHYSICAL EXAMINATION: Blood pressure running in the high 90s with a heart rate in 70s. Lungs with a few crackles at bases. HEART: Regular rate and rhythm. S1, S2. No S3. No rub. ABDOMEN: Soft. Mild tenderness. Colostomy noted. EXTREMITIES: +1 edema. LAB DATA: Lab data revealed BUN and creatinine 17 and 0.83, potassium 4.1. Sodium 130. Hemoglobin of 10.8. IMPRESSION: 1. Status post Luc's procedure with segment resection. 2. Pulmonary embolism, bilateral deep vein thrombosis. 3. History of hyperlipidemia. 4. Prior history of stroke. RECOMMENDATIONS: I would recommend to switch him to oral anticoagulation once it is agreeable with the surgical service. Otherwise, continue medical therapy. Increase physical activity. Incentive spirometry. MMODL / IJN: [id number] /
[2020-10-23] MEDS: PANTOPRAZOLE 40 MG/10 ML VIAL IV SCH (09:43)
[2020-10-23] MEDS: PIPERACILLIN-TAZOBACTAM 3.375 GM in SODIUM CHLORIDE 0.9% 100 ML IVPB SCH ×3 (09:43→23:40)
[2020-10-23] MEDS ORDERED: FUROSEMIDE 10 MG/ML 4 ML VIAL IV STA (09:48)
--- NOTE | 2020-10-23 10:19 | P.PN ---
Subjective Progress Note Date: 10/23/20 Principal diagnosis: Bilateral PE, Lower extremity DVT No issues overnight. Patient seen and examined. States he is feeling better, no issues with breathing. His abdominal incision site is dry and per nursing the drain is serosanguinous with minimal output. he denies any fevers, chills, nausea, vomiting, chest pain or shortness of breath. Abdominal tenderness at the incisions. Objective - Vital Signs Vital signs: Vital Signs Temp 99.5 F 10/23/20 04:00 Pulse 71 10/23/20 07:00 Resp 12 10/23/20 07:00 BP 91/49 10/23/20 07:00 Pulse Ox 95 10/23/20 07:35 Intake & Output 10/22/20 10/23/20 10/23/20 18:59 06:59 18:59 Intake Total 5052.341 2381.791 Output Total 413 785 Balance 1443.288 430.791 Weight 76.2 kg 78.8 kg Intake: IV 1400 1075 D5-0.45% NaCl with KCl 1000 825 20Meq/l 1,000 ml @ 75 mls /hr IV .[id number] [facility] Rx#: [id number] Piperacillin-Tazobactam 3 200 .375 gm In Sodium Chloride 0.9% 100 ml @ 25 mls/hr IVPB Q8HR [facility] Rx# :[id number] Sodium Phosphate 10 mmol 250 In Sodium Chloride 0.9% 250 ml @ 125 mls/hr IVPB ONCE [facility] Rx#:[id number] metroNIDAZOLE-NS PMX 500 100 mg In Saline 1 100ml.bag @ 100 mls/hr IVPB ONCE [facility] Rx#:[id number] metroNIDAZOLE-NS PMX 500 100 mg In Saline 1 100ml.bag @ 100 mls/hr IVPB Q8H [facility] Rx#:[id number] Intake, IV Titration 206.288 140.791 Amount Heparin Sod,Pork in 0.45% 206.288 140.791 NaCl 25,000 unit In 0.45 % NaCl 1 250ml.bag @ 12 UNITS/KG/HR 8.772 mls/hr IV .Q24H [facility] Rx#: [id number] Oral 250 Output: Drainage 20 40 Right Abdomen 20 40 Urine 393 745 Other: Voiding Method Indwelling Catheter Indwelling Catheter - Exam General: alert, oriented, no acute distress HEENT: normocephalic and atraumatic. pupils equal and reactive. Neck: Trauma midline, Heart: Regular rate and rhythm Lungs: clear to auscultation, non labored breathing Abdomen: soft, nontender, incision is clean, dry and intact. Extremities: Bilateral lower extremities warm to touch, Multiphasic dp and pt signal. Minimal edema bilaterally. Neurologic: no focal deficits. Strength and sensation are grossly intact. - Constitutional General appearance: Present: average body habitus, cooperative - EENT Eyes: Present: PERRLA - Labs CBC & Chem 7: 10/23/20 03:36 10/23/20 03:36 Labs: Abnormal Lab Results - Last 24 Hours (Table) 10/22/20 10/23/20 10/23/20 Range/Units 12:02 00:24 03:36 RBC (4.30-5.90) m/uL Hgb (13.0-17.5) gm/dL Hct (39.0-53.0) % Lymphocytes # (1.0-4.8) k/uL APTT 40.2 H (22.0-30.0) sec Sodium 130 L (137-145) mmol/L Carbon Dioxide (22-30) mmol/L Glucose 129 H (74-99) mg/dL POC Glucose (mg/dL) 141 H (75-99) mg/dL Calcium 7.7 L (8.4-10.2) mg/dL Phosphorus 2.4 L (2.5-4.5) mg/dL 10/23/20 10/23/20 Range/Units 03:36 03:36 RBC 3.60 L (4.30-5.90) m/uL Hgb 10.8 L (13.0-17.5) gm/dL Hct 33.1 L (39.0-53.0) % Lymphocytes # 0.8 L (1.0-4.8) k/uL APTT (22.0-30.0) sec Sodium 130 L (137-145) mmol/L Carbon Dioxide 21 L (22-30) mmol/L Glucose 101 H (74-99) mg/dL POC Glucose (mg/dL) (75-99) mg/dL Calcium 7.8 L (8.4-10.2) mg/dL Phosphorus (2.5-4.5) mg/dL Microbiology - Last 24 Hours (Table) 10/20/20 20:57 Gram Stain - Final Other - Other Wound Culture - Final Enterococcus faecalis Enterococcus faecium Escherichia coli 10/20/20 17:45 Blood Culture - Preliminary Blood No Growth after 48 hours 10/20/20 18:00 Blood Culture - Preliminary Blood No Growth after 48 hours Assessment and Plan Assessment: 1. Bilateral pulmonary embolism 2. 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 History of CVA with residual right upper and lower extremity weakness 5. HTN Plan: reviewed labs- hgb is stable. Tolerating anticoagulation well, no active bleeding. Will continue to treat with anticoagulation and will transition to or al anticoagulation tomorrow.
[2020-10-23] MEDS ORDERED: DILTIAZEM DRIP BOLUS FROM BAG 1 MG SOLN IV STA (11:52)
[2020-10-23] MEDS: METOPROLOL TARTRATE 25 MG TAB PO SCH ×2 (11:56→20:13)
[2020-10-23] MEDS: DILTIAZEM 125 MG in SODIUM CHLORIDE 0.9% 100 ML IV SCH ×2 (12:03→20:04)
--- NOTE | 2020-10-23 12:56 | P.PN ---
Subjective Progress Note Date: 10/23/20 Principal diagnosis: Pulmonary embolism. This is an 85-year-old male who presents to the emergency department, complaining of unable to urinate. The patient also has not had a bowel movement in 3 weeks. He apparently was recently admitted for constipation but then was discharged. The patient has a history of colitis. The patient apparently feels nauseated, and his abdomen is distended. He denies any vomiting. Denied any chest pain. He also denied any shortness of breath. He apparently was found have a perforated viscus, and underwent a Kumar's procedure by Dr. Dean. He is postop day #1. Dr. Dean called me yesterday and asked whether or not we could put the patient in the ICU overnight. He was concerned given the patient's age. In addition, in the process of evaluating the patient, the patient was found to have bilateral pulmonary emboli, moderate clot burden, right greater than left, and also bilateral lower extremity DVT. Because of the recent surgery, he cannot be heparinized. Apparently, the vascular surgeon was called, and at this point, no interventions are planned. The patient apparently has a history of CVA, hypertension, and chronic prostate disease. He is currently on lactulose, MiraLAX, multiple vitamins, Flomax, Namenda, and Zocor. He is resting comfortably in the ICU. He is on O2 at 2 L. He is getting dextrose, with half-normal saline, with 20 mEq of potassium at 125 mL an hour. I didn't passed onto the nurse, that may be vascular surgery would prefer to do a [place] filter. The patient is without distress. Progress note dated 10/22/2020. This is a 85-year-old male, who is postop day #2, status post Kumar's procedure, with sigmoid colectomy and end colostomy, for perforated sigmoid colon and fecal impaction. The patient was also discovered have bilateral DVTs, and bilateral pulmonary emboli, right greater than left, with moderate clot burden. The patient's currently on IV heparin, weight based protocol, D5.45, with 20 of potassium, 125 mL an hour, and O2 at 2 L. The patient has a history of CVA, BPH, dementia, hyperlipidemia, essential hypertension and chronic constipation. Surprisingly, the patient seemed be doing relatively well. I did ask vascular surgery whether or not a [place] filter would be appropriate given the fact that he was at high risk for anticoagulation given his age. I nitially, the surgeon did not want to start blood thinners because of the recent surgery. Currently, from the clinical standpoint, he is doing well. White count 8.8, hemoglobin 11.3, hematocrit 35.5, and platelet count 209,000. PTT is 45.7. Sodium 133, potassium 4.4, chlorides 106, CO2 23, anion gap 4, BUN 26, and creatinine 0.79. Progress note dated 10/23/2020. 85-year-old male, who is postop day #3, status post Kumar's procedure, with sigmoid colectomy, and end colostomy, for perforated sigmoid colon and fecal impaction. In addition, at the time of his initial evaluation, he was found to have bilateral DVT, and also, bilateral pulmonary emboli, right greater than left, with moderate clot burden. Currently, the patient continues on 2 L nasal cannula. He is on heparin via weightbase protocol. He is also getting dextrose with half-normal saline with 20 mEq of potassium chloride, at 75 mL an hour, to be reduced down to 40 mL an hour. In addition, the patient received Lasix 40 mg IV push 1. The patient was also on saline at 75 mL an hour, but that IV was discontinued. His weight has jumped, and is receiving much more fluid than urine output. Also, unfortunately, we're all set to discharge the patient to the general medical floor without telemetry, where he developed atrial fibrillation with RVR, was started on a Cardizem drip, and given some beta jerry. Also, initially, the surgeon did not want the patient on blood thinners, but did change his mind, and currently the patient is on heparin. Objective - Vital Signs Vital signs: Vital Signs Temp 98.5 F 10/23/20 09:00 Pulse 74 10/23/20 11:00 Resp 19 10/23/20 11:00 BP 118/57 10/23/20 11:00 Pulse Ox 96 10/23/20 11:00 Intake & Output 10/22/20 10/23/20 10/23/20 18:59 06:59 18:59 Intake Total 6661.761 0290.791 430 Output Total 172 969 5039 Balance 1443.288 430.791 -620 Weight 76.2 kg 78.8 kg Intake: IV 1400 1075 430 D5-0.45% NaCl with KCl 1000 825 230 20Meq/l 1,000 ml @ 40 mls /hr IV .Q24H [facility] Rx#: [id number] Piperacillin-Tazobactam 3 200 100 .375 gm In Sodium Chloride 0.9% 100 ml @ 25 mls/hr IVPB Q8HR [facility] Rx# :[id number] Sodium Phosphate 10 mmol 250 In Sodium Chloride 0.9% 250 ml @ 125 mls/hr IVPB ONCE [facility] Rx#:[id number] metroNIDAZOLE-NS PMX 500 100 mg In Saline 1 100ml.bag @ 100 mls/hr IVPB ONCE [facility] Rx#:[id number] metroNIDAZOLE-NS PMX 500 100 100 mg In Saline 1 100ml.bag @ 100 mls/hr IVPB Q8H [facility] Rx#:[id number] Intake, IV Titration 206.288 140.791 Amount Heparin Sod,Pork in 0.45% 206.288 140.791 NaCl 25,000 unit In 0.45 % NaCl 1 250ml.bag @ 12 UNITS/KG/HR 8.772 mls/hr IV .Q24H [facility] Rx#: [id number] Oral 250 Output: Drainage 20 40 Right Abdomen 20 40 Urine 816 272 7940 Other: Voiding Method Indwelling Catheter Indwelling Catheter Indwelling Catheter - Exam No acute distress, oriented 3. Nasal O2 in place at 2 L. HEENT examination is grossly unremarkable. Mucous membranes are moist. No oral lesions. Neck supple. Full range of motion. No adenopathy thyromegaly or neck vein distention. Cardiovascular examination reveals an irregular rhythm and rate. S1-S2 normal. No S3 or S4. No discernible murmur noted. Heart rate is 124 bpm. Lungs reveal clear breath sounds. Her sounds are equal bilaterally. No adventitious lung sounds including wheezes rhonchi or crackles. Abdomen soft, without bowel sounds. Colostomy is noted. Extremities are intact. No cyanosis clubbing or edema. Skin is without rash or lesion. Neurologic examination is brief but nonfocal. - Labs CBC & Chem 7: 10/23/20 03:36 10/23/20 03:36 Labs: Abnormal Lab Results - Last 24 Hours (Table) 02/10/23/20 10/23/20 Range/Units 00:24 03:36 03:36 RBC 3.60 L (4.30-5.90) m/uL Hgb 10.8 L (13.0-17.5) gm/dL Hct 33.1 L (39.0-53.0) % Lymphocytes # 0.8 L (1.0-4.8) k/uL APTT 40.2 H (22.0-30.0) sec Sodium 130 L (137-145) mmol/L Carbon Dioxide (22-30) mmol/L Glucose 129 H (74-99) mg/dL Calcium 7.7 L (8.4-10.2) mg/dL Phosphorus 2.4 L (2.5-4.5) mg/dL 10/23/20 10/23/20 Range/Units 03:36 12:19 RBC (4.30-5.90) m/uL Hgb (13.0-17.5) gm/dL Hct (39.0-53.0) % Lymphocytes # (1.0-4.8) k/uL APTT 42.4 H (22.0-30.0) sec Sodium 130 L (137-145) mmol/L Carbon Dioxide 21 L (22-30) mmol/L Glucose 101 H (74-99) mg/dL Calcium 7.8 L (8.4-10.2) mg/dL Phosphorus (2.5-4.5) mg/dL Microbiology - Last 24 Hours (Table) 10/20/20 20:57 Gram Stain - Final Other - Other Wound Culture - Final Enterococcus faecalis Enterococcus faecium Escherichia coli 10/20/20 17:45 Blood Culture - Preliminary Blood No Growth after 48 hours 10/20/20 18:00 Blood Culture - Preliminary Blood No Growth after 48 hours Assessment and Plan Assessment: Postop day #3, status post Kumar's procedure, with sigmoid colectomy and end colostomy, for perforated sigmoid colon and fecal impaction. Bilateral pulmonary emboli, right greater than left, with moderate clot burden. Bilateral lower extremity DVT. New onset atrial fibrillation with rapid ventricular response, currently on a Cardizem drip. History of CVA. History of BPH. History of dementia. History of hyperlipidemia. History of hypertension. History of chronic constipation. Plan: Plan dated 10/23/2020. The patient was doing well, but unfortunately developed atrial fibrillation with RVR. The patient was given some Cardizem and a drip, and also some beta jerry. The patient was to be transferred out to the floor, we decided to hold the transfer at this time. We also decided to stop the saline IV, and reduce the D5.45 IV with 20 mEq of potassium, 40 mL an hour. In addition, we gave the patient Lasix 40 mg IV push 1. The patient will not be transferred out of the ICU at this time. White count is 8.2, hemoglobin 10.8, hematocrit 33.1, and platelet count 199,000. PTT is 42.4. Sodium 130, potassium 4.1, chlorides 104, CO2 21, anion gap, and BUN 17 with a creatinine of 0.83. The patient's overall prognosis remains guarded. We will continue to follow make recommendations were appropriate. Prognosis is certainly guarded. Time with Patient: Less than 30
[2020-10-23] MEDS: HEPARIN SOD,PORK IN 0.45% NACL 25,000 UNIT in 0.45% NACL 1 250ML.BAG IV SCH ×2 (14:26→17:13)
[2020-10-23] MEDS ORDERED: DEXTROSE 5% IN WATER 100 ML with AMIODARONE 150 MG IV ONE (14:59)
[2020-10-23] MEDS ORDERED: SODIUM CHLORIDE 0.9% 500 ML 500 ML IV ONE ×2 (14:59→19:42)
[2020-10-23] MEDS ORDERED: AMIODARONE 360 MG in DEXTROSE 5% IN WATER 200 ML IV ONE ×2 (14:59)
--- NOTE | 2020-10-23 17:14 | P.PN ---
Subjective Progress Note Date: 10/23/20 He was on med/surg then went into afib with RVR and now back in ICU. He has a smear of stool in ostomy. He is tolerating clear liquids and wants to eat more. He is on hep gtt with stable Hgb Objective - Vital Signs Vital signs: Vital Signs Temp 98.4 F 10/23/20 16:00 Pulse 154 H 10/23/20 16:00 Resp 17 10/23/20 16:00 BP 78/59 10/23/20 16:00 Pulse Ox 95 10/23/20 16:00 Intake & Output 10/22/20 10/23/20 10/23/20 18:59 06:59 18:59 Intake Total 9628.710 7386.791 1061.765 Output Total 816 227 9458 Balance 1443.288 430.791 -1813.235 Weight 76.2 kg 78.8 kg Intake: IV 1400 1075 730 D5-0.45% NaCl with KCl 1000 825 430 20Meq/l 1,000 ml @ 40 mls /hr IV .Q24H [facility] Rx#: [id number] Piperacillin-Tazobactam 3 200 200 .375 gm In Sodium Chloride 0.9% 100 ml @ 25 mls/hr IVPB Q8HR [facility] Rx# :[id number] Sodium Phosphate 10 mmol 250 In Sodium Chloride 0.9% 250 ml @ 125 mls/hr IVPB ONCE ONE Rx#:[id number] metroNIDAZOLE-NS PMX 500 100 mg In Saline 1 100ml.bag @ 100 mls/hr IVPB [facility]CE [facility] Rx#:[id number] metroNIDAZOLE-NS PMX 500 100 100 mg In Saline 1 100ml.bag @ 100 mls/hr IVPB Q8H [facility] Rx#:[id number] Intake, IV Titration 206.288 140.791 91.765 Amount Heparin Sod,Pork in 0.45% 206.288 140.791 91.765 NaCl 25,000 unit In 0.45 % NaCl 1 250ml.bag @ 12 UNITS/KG/HR 8.772 mls/hr IV .Q24H [facility] Rx#: [id number] Oral 250 240 Output: Drainage 20 40 Right Abdomen 20 40 Urine 615 292 1749 Other: Voiding Method Indwelling Catheter Indwelling Catheter Indwelling Catheter - Labs CBC & Chem 7: 02/28/21 03:36 10/23/20 03:36 Labs: Abnormal Lab Results - Last 24 Hours (Table) 10/23/20 10/23/20 10/23/20 Range/Units 00:24 03:36 03:36 RBC 3.60 L (4.30-5.90) m/uL Hgb 10.8 L (13.0-17.5) gm/dL Hct 33.1 L (39.0-53.0) % Lymphocytes # 0.8 L (1.0-4.8) k/uL APTT 40.2 H (22.0-30.0) sec Sodium 130 L (137-145) mmol/L Carbon Dioxide (22-30) mmol/L Glucose 129 H (74-99) mg/dL Calcium 7.7 L (8.4-10.2) mg/dL Phosphorus 2.4 L (2.5-4.5) mg/dL 10/23/20 10/23/20 Range/Units 03:36 12:19 RBC (4.30-5.90) m/uL Hgb (13.0-17.5) gm/dL Hct (39.0-53.0) % Lymphocytes # (1.0-4.8) k/uL APTT 42.4 H (22.0-30.0) sec Sodium 130 L (137-145) mmol/L Carbon Dioxide 21 L (22-30) mmol/L Glucose 101 H (74-99) mg/dL Calcium 7.8 L (8.4-10.2) mg/dL Phosphorus (2.5-4.5) mg/dL Microbiology - Last 24 Hours (Table) 10/20/20 20:57 Gram Stain - Final Other - Other Wound Culture - Final Enterococcus faecalis Enterococcus faecium Escherichia coli 10/20/20 17:45 Blood Culture - Preliminary Blood No Growth after 48 hours 10/20/20 18:00 Blood Culture - Preliminary Blood No Growth after 48 hours
--- NOTE | 2020-10-23 17:18 | P.PN ---
Subjective Progress Note Date: 10/23/20 Objective - Vital Signs Vital signs: Vital Signs Temp 98.4 F 10/23/20 16:00 Pulse 154 H 10/23/20 16:00 Resp 17 10/23/20 16:00 BP 78/59 10/23/20 16:00 Pulse Ox 95 10/23/20 16:00 Intake & Output 10/22/20 10/23/20 10/23/20 18:59 06:59 18:59 Intake Total 0023.788 8896.791 1079.209 Output Total 823 851 1815 Balance 1443.288 430.791 -1795.791 Weight 76.2 kg 78.8 kg Intake: IV 1400 1075 730 D5-0.45% NaCl with KCl 1000 825 430 20Meq/l 1,000 ml @ 40 mls /hr IV .Q24H [facility] Rx#: [id number] Piperacillin-Tazobactam 3 200 200 .375 gm In Sodium Chloride 0.9% 100 ml @ 25 mls/hr IVPB Q8HR [facility] Rx# :[id number] Sodium Phosphate 10 mmol 250 In Sodium Chloride 0.9% 250 ml @ 125 mls/hr IVPB ONCE ONE Rx#:[id number] metroNIDAZOLE-NS PMX 500 100 mg In Saline 1 100ml.bag @ 100 mls/hr IVPB [facility]CE [facility] Rx#:[id number] metroNIDAZOLE-NS PMX 500 100 100 mg In Saline 1 100ml.bag @ 100 mls/hr IVPB Q8H [facility] Rx#:[id number] Intake, IV Titration 206.288 140.791 109.209 Amount Heparin Sod,Pork in 0.45% 206.288 140.791 109.209 NaCl 25,000 unit In 0.45 % NaCl 1 250ml.bag @ 12 UNITS/KG/HR 8.772 mls/hr IV .Q24H [facility] Rx#: [id number] Oral 250 240 Output: Drainage 20 40 Right Abdomen 20 40 Urine 822 360 0613 Other: Voiding Method Indwelling Catheter Indwelling Catheter Indwelling Catheter - Labs CBC & Chem 7: 10/23/20 03:36 10/23/20 03:36 Labs: Abnormal Lab Results - Last 24 Hours (Table) 10/23/20 10/23/20 10/23/20 Range/Units 00:24 03:36 03:36 RBC 3.60 L (4.30-5.90) m/uL Hgb 10.8 L (13.0-17.5) gm/dL Hct 33.1 L (39.0-53.0) % Lymphocytes # 0.8 L (1.0-4.8) k/uL APTT 40.2 H (22.0-30.0) sec Sodium 130 L (137-145) mmol/L Carbon Dioxide (22-30) mmol/L Glucose 129 H (74-99) mg/dL Calcium 7.7 L (8.4-10.2) mg/dL Phosphorus 2.4 L (2.5-4.5) mg/dL 10/23/20 10/23/20 Range/Units 03:36 12:19 RBC (4.30-5.90) m/uL Hgb (13.0-17.5) gm/dL Hct (39.0-53.0) % Lymphocytes # (1.0-4.8) k/uL APTT 42.4 H (22.0-30.0) sec Sodium 130 L (137-145) mmol/L Carbon Dioxide 21 L (22-30) mmol/L Glucose 101 H (74-99) mg/dL Calcium 7.8 L (8.4-10.2) mg/dL Phosphorus (2.5-4.5) mg/dL Microbiology - Last 24 Hours (Table) 10/20/20 20:57 Gram Stain - Final Other - Other Wound Culture - Final Enterococcus faecalis Enterococcus faecium Escherichia coli 10/20/20 17:45 Blood Culture - Preliminary Blood No Growth after 48 hours 10/20/20 18:00 Blood Culture - Preliminary Blood No Growth after 48 hours
--- NOTE | 2020-10-23 18:22 | P.PN ---
Subjective This is a pleasant 85 years old male with past medical history of CVA/TIA, hypertension, residual right hemiparesis. He was admitted with abdominal pain and CAT scan of the abdomen showing free air and free fluid. He underwent exploratory laparotomy with sigmoid colectomy and colostomy and manual disimpaction Also on CT of the abdomen there was suspicion of PE which was shown on CT of the chest to have bilateral PE and bilateral lower extremity DVT on ultrasound of the lower extremities. Patient currently is on heparin drip. Echocardiogram: Showed ejection fraction of 45-50% with slight apical hypokinesia. Vascular surgery with Dr. Kang were consulted and they recommended to continue with heparin drip and this patient bleeds then IVC filter would be indicated per their recommendation. Patient is currently covered with Zosyn and ID team on the case 10/22/20 Patient is in the ICU, closely monitored for his perforated viscus where his been treated for secondary peritonitis and bilateral DVT and PE He is lying in bed generally weak still complaining from pain on the right lower abdomen and surgical site. Histo on heparin drip and D5 half-normal saline at 75 mL/h. Also on Zosyn and Flagyl He is on clear liquid diet eating about 50-75% of his meals CBC and BMP are stable Blood culture is growing group D enterococcus 10/23/2020 Patient in the ICU monitored closely. He had an eventful one last night. He feels flat his abdominal pain is slightly better compared to yesterday. He still on anticoagulation for bilateral DVT and PE with no new complaint. He is still covered with broad-spectrum antibiotics with Zosyn and Flagyl for his peritonitis He was about to be documented when he developed A. fib and RVR, cartilage team were consulted and they started him on Cardizem drip and metoprolol 25 mg twice a day. Later on amiodarone drip also been added Continue monitoring the ICU currently Review of systems CONSTITUTIONAL: No fever, no malaise, no fatigue. HEENT: No recent visual problems or hearing problems. Denied any sore throat. CARDIOVASCULAR: No orthopnea, PND, no palpitations, no syncope. PULMONARY: No chest wall tenderness, no hemoptysis. GASTROINTESTINAL: No diarrhea, no nausea, no vomiting, no abdominal pain. Normoactive bowel sounds. NEUROLOGICAL: No headaches, no weakness, no numbness. HEMATOLOGICAL: Denies any bleeding or petechiae. Active Medications Generic Name Dose Route Start Last Admin Trade Name Freq PRN Reason Stop Dose Admin Heparin Sodium (Porcine) 0 unit 10/21/20 12:23 Heparin Sodium,Porcine 5,000 Unit/Ml 1 Ml Vial IV PER PROTOCOL PRN Low PTT Protocol Hydromorphone HCl 1 mg 10/20/20 21:07 10/23/20 03:51 Hydromorphone 1 Mg/Ml 1 Ml Syringe IVP 1 mg Q3HR PRN Administration Moderate to Severe Pain Potassium Chloride/Dextrose/Sod Cl 1,000 mls @ 40 mls/hr 10/20/20 21:15 10/23/20 09:24 D5%-1/2ns-Kcl 20 Meq/L Iv Solution IV Not Given .Q24H [facility] Metronidazole 500 mg/ IV 100 mls @ 100 mls/hr 10/21/20 02:00 10/23/20 09:42 Solution IVPB 100 mls/hr Q8H [facility] Administration Piperacillin Sod/Tazobactam 100 mls @ 25 mls/hr 10/21/20 16:00 10/23/20 09:43 Sod 3.375 gm/ Sodium Chloride IVPB 25 mls/hr Q8HR [facility] Administration Heparin Sodium/Sodium Chloride 250 mls @ 8.772 mls/hr 10/21/20 12:30 10/23/20 05:23 25,000 unit/ Sodium Chloride IV 14 units/kg/hr .Q24H [facility] 10.234 mls/hr Titration Protocol 12 UNITS/KG/HR Diltiazem HCl 125 mg/ Sodium 125 mls @ 10 mls/hr 10/23/20 12:00 10/23/20 12:03 Chloride IV 10 mg/hr .[id number] [facility] 10 mls/hr Administration 10 MG/HR Memantine 10 mg 10/23/20 21:00 Memantine 10 Mg Tab PO BID [facility] Metoprolol Tartrate 25 mg 10/23/20 12:00 10/23/20 11:56 Metoprolol Tartrate 25 Mg Tab PO 25 mg BID [facility] Administration Naloxone HCl 0.2 mg 10/20/20 17:45 Naloxone 0.4 Mg/Ml 1 Ml Vial IV Q2M PRN Opioid Reversal Ondansetron HCl 4 mg 10/20/20 21:07 Ondansetron 4 Mg/2 Ml Vial IVP Q8HR PRN Nausea And Vomiting Pantoprazole Sodium 40 mg 10/21/20 09:00 10/23/20 09:43 Pantoprazole 40 Mg/10 Ml Vial IV 40 mg DAILY [facility] Administration Polyethylene Glycol 17 gm 10/24/20 09:00 Polyethylene Glycol 3350 17 Gm Powd.Pack PO DAILY [facility] Tamsulosin HCl 0.4 mg 10/23/20 21:00 Tamsulosin 0.4 Mg Cap.Er.24h PO [facility] Objective - Vital Signs Vital signs: Vital Signs Temp 98.4 F 10/23/20 16:00 Pulse 141 H 10/23/20 17:15 Resp 26 H 10/23/20 17:15 BP 94/82 10/23/20 17:15 Pulse Ox 93 L 10/23/20 17:15 Intake & Output 10/22/20 10/23/20 10/23/20 18:59 06:59 18:59 Intake Total 7148.069 5299.791 1219.209 Output Total 076 314 3768 Balance 1443.288 430.791 -1880.791 Weight 76.2 kg 78.8 kg Intake: IV 1400 1075 870 D5-0.45% NaCl with KCl 1000 825 470 20Meq/l 1,000 ml @ 40 mls /hr IV .Q24H [facility] Rx#: [id number] Piperacillin-Tazobactam 3 200 200 .375 gm In Sodium Chloride 0.9% 100 ml @ 25 mls/hr IVPB Q8HR [facility] Rx# :[id number] Sodium Phosphate 10 mmol 250 In Sodium Chloride 0.9% 250 ml @ 125 mls/hr IVPB ONCE ONE Rx#:[id number] metroNIDAZOLE-NS PMX 500 100 mg In Saline 1 100ml.bag @ 100 mls/hr IVPB ONCE STA Rx#:[id number] metroNIDAZOLE-NS PMX 500 100 200 mg In Saline 1 100ml.bag @ 100 mls/hr IVPB Q8H [facility] Rx#:[id number] Intake, IV Titration 206.288 140.791 109.209 Amount Heparin Sod,Pork in 0.45% 206.288 140.791 109.209 NaCl 25,000 unit In 0.45 % NaCl 1 250ml.bag @ 12 UNITS/KG/HR 8.772 mls/hr IV .Q24H [facility] Rx#: [id number] Oral 250 240 Output: Drainage 20 40 Right Abdomen 20 40 Urine 245 813 4660 Other: Voiding Method Indwelling Catheter Indwelling Catheter Indwelling Catheter - Exam GENERAL: The patient is alert and oriented x3, not in any acute distress. Well developed, well nourished. HEENT: Pupils are round and equally reacting to light. EOMI. No scleral icterus. No conjunctival pallor. Normocephalic, atraumatic. No pharyngeal erythema. No thyromegaly. CARDIOVASCULAR: S1 and S2 present. No murmurs, rubs, or gallops. PULMONARY: Chest is clear to auscultation, no wheezing or crackles. -ABDOMEN: Soft, nontender, nondistended, normoactive bowel sounds. No palpable organomegaly. Surgical wound is closed and healing with a dressing MUSCULOSKELETAL: No joint swelling or deformity. EXTREMITIES: No cyanosis, clubbing, or pedal edema. NEUROLOGICAL: Gross neurological examination did not reveal any focal deficits. SKIN: No rashes. no petechiae. - Labs CBC & Chem 7: 10/23/20 03:36 10/23/20 03:36 Labs: Abnormal Lab Results - Last 24 Hours (Table) 10/23/20 10/23/20 10/23/20 Range/Units 00:24 03:36 03:36 RBC 3.60 L (4.30-5.90) m/uL Hgb 10.8 L (13.0-17.5) gm/dL Hct 33.1 L (39.0-53.0) % Lymphocytes # 0.8 L (1.0-4.8) k/uL APTT 40.2 H (22.0-30.0) sec Sodium 130 L (137-145) mmol/L Carbon Dioxide (22-30) mmol/L Glucose 129 H (74-99) mg/dL Calcium 7.7 L (8.4-10.2) mg/dL Phosphorus 2.4 L (2.5-4.5) mg/dL 10/23/20 10/23/20 Range/Units 03:36 12:19 RBC (4.30-5.90) m/uL Hgb (13.0-17.5) gm/dL Hct (39.0-53.0) % Lymphocytes # (1.0-4.8) k/uL APTT 42.4 H (22.0-30.0) sec Sodium 130 L (137-145) mmol/L Carbon Dioxide 21 L (22-30) mmol/L Glucose 101 H (74-99) mg/dL Calcium 7.8 L (8.4-10.2) mg/dL Phosphorus (2.5-4.5) mg/dL Microbiology - Last 24 Hours (Table) 10/20/20 20:57 Gram Stain - Final Other - Other Wound Culture - Final Enterococcus faecalis Enterococcus faecium Escherichia coli 10/20/20 17:45 Blood Culture - Preliminary Blood No Growth after 48 hours 10/20/20 18:00 Blood Culture - Preliminary Blood No Growth after 48 hours Assessment and Plan Assessment: -Bowel/sigmoid perforation status post exploratory laparotomy, sigmoid colectomy and colostomy with manual fecal disimpaction -Bilateral pulmonary emboli secondary to bilateral DVT. With no evidence of RV citrine on CT or echo -Mild hypoxic respiratory failure -Atrial fibrillation with RVR -Secondary peritonitis -History of CVA with right hemiparesis -Hypertension Plan: This is a pleasant 85 years old male who presents with bowel obstruction and perforation status post sigmoid colectomy and colostomy. Also has bilateral PE/DVT. Currently he is kept on heparin drip with close monitoring for signs of rebleeding with vascular surgery close monitoring the case to place IVC filter. Patient cannot tolerate anticoagulation consult cardiology for A. fib. Continue with metoprolol Patient also followed by manager global, infectious disease and surgery primary team He kept on broad-spectrum antibiotic in the form of Zosyn, gentle hydration Continue same treatment. Continue with symptomatic treatment. Resume home medication. Monitor lytes and vitals. DVT and GI prophylaxis. Further recommendationsas per clinical course of the patient DVT prophylaxis: heparin GI Prophylaxis: Pepcid Prognosis is guarded
[2020-10-23] MEDS: MEMANTINE 10 MG TAB PO SCH (20:13)
[2020-10-23] MEDS: TAMSULOSIN 0.4 MG CAP.ER.24H PO SCH (20:20)
[2020-10-23] MEDS: AMIODARONE 450 MG in DEXTROSE 5% IN WATER 250 ML IV SCH ×2 (21:48)
[2020-10-23] MEDS: NOREPINEPHRINE 4 MG in SODIUM CHLORIDE 0.9% 250 ML IV SCH (21:57)
[2020-10-24] MEDS: metroNIDAZOLE-NS PMX 500 MG in SALINE 1 100ML.BAG IVPB SCH ×3 (01:34→18:32)
[2020-10-24 04:23] LABS: Basophils % (A) 0 %; Eosinophils % (A) 0 %; HCT 35.9 % (39.0-53.0); HGB 11.8 gm/dL (13.0-17.5); Lymphocytes # (A) 1.1 k/uL (1.0-4.8); Lymphocytes % (A) 9 %; MCH 30.1 pg (25.0-35.0); MCHC 32.8 g/dL (31.0-37.0); MCV 91.8 fL (80.0-100.0); Monocytes # (A) 0.6 k/uL (0-1.0); Monocytes % (A) 5 %; Neutrophils # (A) 10.4 k/uL (1.3-7.7); Neutrophils % (A) 84 %; Platelet Count 289 k/uL (150-450); RBC 3.91 m/uL (4.30-5.90); RDW 13.2 % (11.5-15.5); WBC 12.3 k/uL (3.8-10.6)
[2020-10-24 04:39] LABS: African American GFR (CKD) >90 (>60 ml/min/1.73 sqM); Anion Gap 9 mmol/L; Blood Urea Nitrogen 14 mg/dL (9-20); Calcium 7.8 mg/dL (8.4-10.2); Carbon Dioxide 19 mmol/L (22-30); Chloride 105 mmol/L (98-107); Glucose 129 mg/dL (74-99); Magnesium 1.9 mg/dL (1.6-2.3); Non-African American GFR(CKD) 79 (>60 ml/min/1.73 sqM); Potassium 3.8 mmol/L (3.5-5.1); Sodium 133 mmol/L (137-145)
[2020-10-24] MEDS ORDERED: Magnesium Replacement Protocol 1 EACH MISC MISCELLANE PRN (04:52)
[2020-10-24] MEDS ORDERED: Potassium Replacement Protocol 1 EACH MISC MISCELLANE PRN (04:56)
[2020-10-24] MEDS: MAGNESIUM SULFATE-D5W PMX 1 GM in DEXTROSE/WATER 1 100ML.BAG IVPB SCH ×2 (05:32→07:45)
[2020-10-24] MEDS: POTASSIUM CHLORIDE 10 MEQ in WATER FOR INJECTION 1 100ML.BAG IVPB SCH ×2 (05:32→07:44)
[2020-10-24] MEDS: NOREPINEPHRINE 4 MG in SODIUM CHLORIDE 0.9% 250 ML IV SCH ×2 (05:33→20:24)
--- NOTE | 2020-10-24 06:05 | PN ---
PROGRESS NOTE DATE OF SERVICE: 10/23/2020 REASON FOR FOLLOWUP: Perforated sigmoid colon with secondary peritonitis. INTERVAL HISTORY: Patient is currently afebrile. Patient is breathing comfortably. The patient denies having any chest pain or shortness of breath. Occasional cough. Abdominal pain is currently controlled. No vomiting or diarrhea. PHYSICAL EXAMINATION: Blood pressure is 98/78 with a pulse of 80, temperature 98, he is 95% on 2 L nasal cannula. General description is an elderly male lying in bed in no distress. Respiratory system: Unlabored breathing, clear to auscultation anteriorly. Heart S1, S2. Regular rate and rhythm. Abdomen is soft, no tenderness. LABORATORY DATA: Hemoglobin is 10.3, white count 8.2, BUN of 17, creatinine 0.83. Abdominal culture positive for Enterococcus, E coli and anaerobes. DIAGNOSTIC IMPRESSION AND PLAN: Patient with secondary peritonitis from perforated sigmoid colon, status post laparotomy and diverting colostomy. Abdominal culture with Enterococcus, E coli, anaerobes. Patient is covered with Zosyn. Family was at the bedside at the time of evaluation and their questions were answered. MMODL / IJN: [id number] /
--- NOTE | 2020-10-24 07:17 | P.PN ---
Subjective Progress Note Date: 10/24/20 Pulmonary embolism. This is an 85-year-old male who presents to the emergency department, complaining of unable to urinate. The patient also has not had a bowel movement in 3 weeks. He apparently was recently admitted for constipation but then was discharged. The patient has a history of colitis. The patient apparently feels nauseated, and his abdomen is distended. He denies any vomiting. Denied any chest pain. He also denied any shortness of breath. He apparently was found have a perforated viscus, and underwent a Kumar's procedure by Dr. Dean. He is postop day #1. Dr. Dean called me yesterday and asked whether or not we could put the patient in the ICU overnight. He was concerned given the patient's age. In addition, in the process of evaluating the patient, the patient was found to have bilateral pulmonary emboli, moderate clot burden, right greater than left, and also bilateral lower extremity DVT. Because of the recent surgery, he cannot be heparinized. Apparently, the vascular surgeon was called, and at this point, no interventions are planned. The patient apparently has a history of CVA, hypertension, and chronic prostate disease. He is currently on lactulose, MiraLAX, multiple vitamins, Flomax, Namenda, and Zocor. He is resting comfortably in the ICU. He is on O2 at 2 L. He is getting dextrose, with half-normal saline, with 20 mEq of potassium at 125 mL an hour. I didn't passed onto the nurse, that may be vascular surgery would prefer to do a [place] filter. The patient is without distress. Progress note dated 10/22/2020. This is a 85-year-old male, who is postop day #2, status post Kumar's procedure, with sigmoid colectomy and end colostomy, for perforated sigmoid colon and fecal impaction. The patient was also discovered have bilateral DVTs, and bilateral pulmonary emboli, right greater than left, with moderate clot burden. The patient's currently on IV heparin, weight based protocol, D5.45, with 20 of potassium, 125 mL an hour, and O2 at 2 L. The patient has a history of CVA, BPH, dementia, hyperlipidemia, essential hypertension and chronic constipation. Surprisingly, the patient seemed be doing relatively well. I did ask vascular surgery whether or not a [place] filter would be appropriate given the fact that he was at high risk for anticoagulation given his age. Initially, the surgeon did not want to start blood thinners because of the recent surgery. Currently, from the clinical standpoint, he is doing well. White count 8.8, hemoglobin 11.3, hematocrit 35.5, and platelet count 209,000. PTT is 45.7. Sodium 133, potassium 4.4, chlorides 106, CO2 23, anion gap 4, BUN 26, and creatinine 0.79. Progress note dated 10/23/2020. 85-year-old male, who is postop day #3, status post Kumar's procedure, with sigmoid colectomy, and end colostomy, for perforated sigmoid colon and fecal impaction. In addition, at the time of his initial evaluation, he was found to have bilateral DVT, and also, bilateral pulmonary emboli, right greater than left, with moderate clot burden. Currently, the patient continues on 2 L nasal cannula. He is on heparin via weightbase protocol. He is also getting dextrose with half-normal saline with 20 mEq of potassium chloride, at 75 mL an hour, to be reduced down to 40 mL an hour. In addition, the patient received Lasix 40 mg IV push 1. The patient was also on saline at 75 mL an hour, but that IV was discontinued. His weight has jumped, and is receiving much more fluid than urine output. Also, unfortunately, we're all set to discharge the patient to the general medical floor without telemetry, where he developed atrial fibrillation with RVR, was started on a Cardizem drip, and given some beta jerry. Also, initially, the surgeon did not want the patient on blood thinners, but did change his mind, and currently the patient is on heparin. On 10/24/2020 the patient is being seen in follow-up in the intensive care unit. The patient is postop day #4. The patient underwent a sigmoid colectomy and end colostomy and the patient has a Kumar pouch. He presented to the hospital because of constipation and patient was found to have perforated sigmoid colon with fecal impaction. Abdominal wound cultures growing E. coli in addition to Enterococcus faecalis and fisherman the patient is on a combination of Zosyn and Flagyl. Over the past 24 hours, the patient went into atrial fibrillation with rapid ventricular response. His blood pressure also became somewhat hypotensive. He was placed on a combination of norepinephrine for blood pressure support and is currently running at 0.09 mcg/kg per minute. The patient was also started on Cardizem drip initially at 10 mg an hour and currently is also on amiodarone drip at 0.5 mg per minute. Current heart rate is around 107 and is still irregular. Most recent blood pressure is 93/61. He is producing urine output. He is awake and alert and currently is on oxygen at 2 L per minute. He continues to have edema both in the upper and lower extremities more so on the right as the patient had a previous CVA on the right. Abdomen is nondistended. Bowel sounds are sluggish. Colostomy site is viable and the tissue looks healthy. Minimal amount of liquid collecting in the colostomy bag. Bowel sounds are hypoactive. Abdomen is nondistended.The white cell count is at 12.3 with a hemoglobin of 11.8. The patient remains on IV heparin as the patient has a new onset atrial fibrillation. The patient also has bilateral lower extremity DVT. His PTT is therapeutic for now. The patient is being given clear liquid diet. The patient is also using incentive spirometer. He is awake and alert and communicating. Discussed the case with cardiology and there is a constellation for cardioversion due to his ongoing atrial fibrillation with rapid ventricular response despite being on a Cardizem drip and amiodarone. His level is good ejection fraction has been within normal limits. He is on IV fluids at the rate of 50 mL an hour of D5 half-normal with potassium supplements. Objective - Vital Signs Vital signs: Vital Signs Temp 98.5 F 10/23/20 23:45 Pulse 106 H 10/24/20 06:00 Resp 14 10/24/20 06:00 BP 101/86 10/24/20 06:00 Pulse Ox 96 10/24/20 06:00 Intake & Output 10/23/20 10/24/20 10/24/20 18:59 06:59 18:59 Intake Total 9322.540 4570.036 Output Total 3225 440 Balance -1845.791 736.036 Weight 82.1 kg Intake: IV 910 600 D5-0.45% NaCl with KCl 510 400 20Meq/l 1,000 ml @ 40 mls /hr IV .Q24H [facility] Rx#: [id number] Magnesium Sulfate-D5w Pmx 100 1 gm In Dextrose/Water 1 100ml.bag @ 100 mls/hr IVPB Q1H [facility] Rx#: [id number] Piperacillin-Tazobactam 3 200 .375 gm In Sodium Chloride 0.9% 100 ml @ 25 mls/hr IVPB Q8HR [facility] Rx# :[id number] Potassium Chloride 10 meq 100 In Water For Injection 1 100ml.bag @ 100 mls/hr IVPB Q1H [facility] Rx#: [id number] metroNIDAZOLE-NS PMX 500 200 mg In Saline 1 100ml.bag @ 100 mls/hr IVPB Q8H [facility] Rx#:[id number] Intake, IV Titration 109.209 456.036 Amount Diltiazem 125 mg In 80.167 Sodium Chloride 0.9% 100 ml @ 10 MG/HR 10 mls/hr IV .[id number] [facility] Rx#: [id number] Heparin Sod,Pork in 0.45% 109.209 124.928 NaCl 25,000 unit In 0.45 % NaCl 1 250ml.bag @ 12 UNITS/KG/HR 8.772 mls/hr IV .Q24H [facility] Rx#: [id number] Norepinephrine 4 mg In 250.941 Sodium Chloride 0.9% 250 ml @ 0.05 MCG/KG/MIN 15. 011 mls/hr IV .[id number] [facility] Rx#:[id number] Oral 360 120 Output: Drainage 10 Right Abdomen 10 Urine 3225 430 Other: Voiding Method Indwelling Catheter Indwelling Catheter - Exam No acute distress, oriented 3. Nasal O2 in place at 2 L. HEENT examination is grossly unremarkable. Mucous membranes are moist. No oral lesions. Neck supple. Full range of motion. No adenopathy thyromegaly or neck vein distention. Cardiovascular examination reveals an irregular rhythm and rate. The patient continues to be tachycardic with a heart rate ranging between 101 20. Murmurs could not be appreciated. Lungs reveal clear breath sounds. Her sounds are equal bilaterally. No adventitious lung sounds including wheezes rhonchi or crackles. Abdomen soft, without bowel sounds. Colostomy is noted. There is some adequate material collecting in the colostomy bag. The patient has a DONOVAN drain in place and output is serosanguineous. Surgical wound site is dry clean and intact. No abdominal distention. Extremities are intact. No cyanosis clubbing and the patient has extensive edema bilaterally more so on the right side. Legs are also edematous. The patient also had a scrotal edema. Skin is without rash or lesion. Neurologic examination awake and alert and he has right-sided weakness and contractures which are essentially chronic. He is awake and alert and following commands and answering questions and is appropriate. - Labs CBC & Chem 7: 10/24/20 03:32 10/24/20 03:32 Labs: Abnormal Lab Results - Last 24 Hours (Table) 10/23/20 10/23/20 10/24/20 Range/Units 12:19 18:40 03:32 WBC 12.3 H (3.8-10.6) k/uL RBC 3.91 L (4.30-5.90) m/uL Hgb 11.8 L (13.0-17.5) gm/dL Hct 35.9 L (39.0-53.0) % Neutrophils # 10.4 H (1.3-7.7) k/uL APTT 42.4 H 81.6 H (22.0-30.0) sec Sodium (137-145) mmol/L Carbon Dioxide (22-30) mmol/L Glucose (74-99) mg/dL Calcium (8.4-10.2) mg/dL 10/24/20 10/24/20 Range/Units 03:32 03:32 WBC (3.8-10.6) k/uL RBC (4.30-5.90) m/uL Hgb (13.0-17.5) gm/dL Hct (39.0-53.0) % Neutrophils # (1.3-7.7) k/uL APTT 39.1 H (22.0-30.0) sec Sodium 133 L (137-145) mmol/L Carbon Dioxide 19 L (22-30) mmol/L Glucose 129 H (74-99) mg/dL Calcium 7.8 L (8.4-10.2) mg/dL Microbiology - Last 24 Hours (Table) 10/20/20 20:57 Anaerobic Culture - Final Other - Other Anaerobic Gm Negative Bacilli Anaerobic Gm Negative Bacilli#2 10/20/20 17:45 Blood Culture - Preliminary Blood No Growth after 72 hours 10/20/20 18:00 Blood Culture - Preliminary Blood No Growth after 72 hours Assessment and Plan Plan: 1 Postop day # 4, status post Kumar's procedure, with sigmoid colectomy and end colostomy, for perforated sigmoid colon and fecal impaction. The intra- abdominal cultures showed E. coli in addition to enterococcus fascia and faecalis and the patient remains on examination of Zosyn and Flagyl. 2 Bilateral pulmonary emboli, right greater than left, with moderate clot burden, currently on IV heparin 3 Bilateral lower extremity DVT, currently on IV heparin 4 New onset atrial fibrillation with rapid ventricular response, currently on a Cardizem drip 10 mgan hour and amiodarone at 0.5 mg/m. The patient is still tachycardic 5 History of CVA. 6 History of BPH. 7 History of dementia. 8 History of hyperlipidemia. 9 History of hypertension. 10 History of chronic constipation. Plan: We'll consider cardioversion regarding this atrial fibrillation with rapid ventricular response. He meanwhile, continue Cardizem and amiodarone and beta blockers. IV heparin per protocol Give additional dose of Lasix 40 mg IV push 1 as the patient has significant edema in the extremities and scrotum. Wean off norepinephrine as tolerated to maintain a blood pressure mean of above 65 Continue Zosyn and Flagyl We'll gradually advance diet as tolerated and monitor the output from the colostomy Will need a PICC line and for that purpose IV heparin can be discontinued for 90 minutes and then restarted The patient ICU and the patient will be kept in the intensive care units for now The patient's overall prognosis remains guarded. We will continue to follow make recommendations were appropriate. Prognosis is certainly guarded.
[2020-10-24] MEDS ORDERED: FUROSEMIDE 10 MG/ML 4 ML VIAL IV STA (07:19)
[2020-10-24] MEDS: PIPERACILLIN-TAZOBACTAM 3.375 GM in SODIUM CHLORIDE 0.9% 100 ML IVPB SCH ×2 (08:00→15:45)
[2020-10-24] MEDS: METOPROLOL TARTRATE 25 MG TAB PO SCH ×2 (09:05→20:53)
[2020-10-24] MEDS: PANTOPRAZOLE 40 MG/10 ML VIAL IV SCH (09:05)
[2020-10-24] MEDS: polyethylene glycoL 3350 17 GM POWD.PACK PO SCH (09:05)
[2020-10-24] MEDS: MEMANTINE 10 MG TAB PO SCH ×2 (09:05→20:53)
[2020-10-24] MEDS: DILTIAZEM 125 MG in SODIUM CHLORIDE 0.9% 100 ML IV SCH ×2 (09:06→20:10)
[2020-10-24] MEDS ORDERED: LIDOCAINE 1% INJ 10MG/ML (20 ML MDV) ONE (09:34)
[2020-10-24] MEDS ORDERED: LIDOCAINE 1% INJ 10MG/ML (20 ML MDV) SQ ONE (10:40)
--- NOTE | 2020-10-24 11:12 | P.PN ---
Subjective Progress Note Date: 10/24/20 Principal diagnosis: bilateral pulmonary embolism, bilateral DVT The patient is seen and examined sitting up in his bed. No acute changes through the night. Patient continues to have atrial fibrillation with RVR on cardizem drip. Hemoglobin is stable at 11.8. Patient has small amount of stool from colostomy site. No signs of bleeding. He is on 2 L nasal cannula. Denies any shortness of breath or chest pain. Objective - Vital Signs Vital signs: Vital Signs Temp 98.1 F 10/24/20 08:15 Pulse 113 H 10/24/20 09:15 Resp 18 10/24/20 09:15 BP 94/60 10/24/20 09:15 Pulse Ox 95 10/24/20 09:15 Intake & Output 10/23/20 10/24/20 10/24/20 18:59 06:59 18:59 Intake Total 0481.387 9718.036 820.042 Output Total 3225 540 900 Balance -1845.791 676.036 -79.958 Weight 82.1 kg Intake: IV 910 640 520 D5-0.45% NaCl with KCl 510 440 120 20Meq/l 1,000 ml @ 40 mls /hr IV .Q24H [facility] Rx#: [id number] Magnesium Sulfate-D5w Pmx 100 100 1 gm In Dextrose/Water 1 100ml.bag @ 100 mls/hr IVPB Q1H [facility] Rx#: [id number] Piperacillin-Tazobactam 3 200 100 .375 gm In Sodium Chloride 0.9% 100 ml @ 25 mls/hr IVPB Q8HR [facility] Rx# :[id number] Potassium Chloride 10 meq 100 100 In Water For Injection 1 100ml.bag @ 100 mls/hr IVPB Q1H [facility] Rx#: [id number] metroNIDAZOLE-NS PMX 500 200 100 mg In Saline 1 100ml.bag @ 100 mls/hr IVPB Q8H [facility] Rx#:[id number] Intake, IV Titration 109.209 456.036 180.042 Amount Diltiazem 125 mg In 80.167 125 Sodium Chloride 0.9% 100 ml @ 10 MG/HR 10 mls/hr IV .[id number] [facility] Rx#: [id number] Heparin Sod,Pork in 0.45% 109.209 124.928 NaCl 25,000 unit In 0.45 % NaCl 1 250ml.bag @ 12 UNITS/KG/HR 8.772 mls/hr IV .Q24H [facility] Rx#: [id number] Norepinephrine 4 mg In 250.941 55.042 Sodium Chloride 0.9% 250 ml @ 0.05 MCG/KG/MIN 15. 011 mls/hr IV .[id number] [facility] Rx#:[id number] Oral 360 120 120 Output: Drainage 10 Right Abdomen 10 Urine 3225 530 900 Other: Voiding Method Indwelling Catheter Indwelling Catheter - Exam General appearance: The patient is alert, oriented, appears in no acute distress. HET: Head is normocephalic and atraumatic. Neck: Supple without lymphadenopathy. Trachea midline. Heart: S1 S2. Irregular rate and rhythm. Lungs: Clear to auscultation. Abdomen: Soft, incisional tenderness, dressings clean dry and intact. DONOVAN drain, ostomy site left lower quadrant. Nondistended, Positive bowel sounds. Extremities: Normal skin color and turgor, warm to touch. Bilateral pedal edema. Multiphasic DP and PT signal. Neurological: No focal deficits. Strength and sensation are grossly intact. - Labs CBC & Chem 7: 10/25/20 03:30 10/25/20 03:30 Labs: Abnormal Lab Results - Last 24 Hours (Table) 10/23/20 10/23/20 10/24/20 Range/Units 12:19 18:40 03:32 WBC 12.3 H (3.8-10.6) k/uL RBC 3.91 L (4.30-5.90) m/uL Hgb 11.8 L (13.0-17.5) gm/dL Hct 35.9 L (39.0-53.0) % Neutrophils # 10.4 H (1.3-7.7) k/uL APTT 42.4 H 81.6 H (22.0-30.0) sec Sodium (137-145) mmol/L Carbon Dioxide (22-30) mmol/L Glucose (74-99) mg/dL Calcium (8.4-10.2) mg/dL 10/24/20 10/24/20 Range/Units 03:32 03:32 WBC (3.8-10.6) k/uL RBC (4.30-5.90) m/uL Hgb (13.0-17.5) gm/dL Hct (39.0-53.0) % Neutrophils # (1.3-7.7) k/uL APTT 39.1 H (22.0-30.0) sec Sodium 133 L (137-145) mmol/L Carbon Dioxide 19 L (22-30) mmol/L Glucose 129 H (74-99) mg/dL Calcium 7.8 L (8.4-10.2) mg/dL Microbiology - Last 24 Hours (Table) 10/20/20 20:57 Anaerobic Culture - Final Other - Other Anaerobic Gm Negative Bacilli Anaerobic Gm Negative Bacilli#2 10/20/20 17:45 Blood Culture - Preliminary Blood No Growth after 72 hours 10/20/20 18:00 Blood Culture - Preliminary Blood No Growth after 72 hours Assessment and Plan Assessment: 1. Bilateral pulmonary embolism 2. 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 Hypertension Plan: Labs reviewed, hemoglobin stable. Patient is tolerating anticoagulation well with no active bleeding. Will send prescription to pharmacy to check for coverage of Ahlquist. Patient to be transition from heparin to Eliquis after PICC line placement of covered. This history and physical was discussed with Dr. Kang. The impression and plan a care have been directed as dictated.
--- NOTE | 2020-10-24 11:23 | XR ---
EXAMINATION TYPE: XR chest 1V confirm line plcmt DATE OF EXAM: 10/24/2020 COMPARISON: 10/21/2020 HISTORY: 85-year-old male PICC line placement TECHNIQUE: Single frontal view of the chest is obtained. FINDINGS: Leftward patient rotation. Advanced degenerative change right shoulder. Heart upper limits of normal in size. Small left effusion with left basilar opacity. Multiple right-sided rib fracture deformities . Left PICC line probably near the brachiocephalic vein junction. IMPRESSION: Limitation due to patient rotation. The left PICC tip may be near the brachiocephalic vein confluence . Continued small left effusion with adjacent atelectasis and/or consolidation at the left base.
--- NOTE | 2020-10-24 11:55 | P.PN ---
<Mere Dalton - Last Filed: 10/24/20 12:04> Subjective Progress Note Date: 10/24/20 CHIEF COMPLAINT: Pneumoperitoneum HISTORY OF PRESENT ILLNESS: Patient is currently in the ICU. He is status post sigmoid colectomy with end colostomy and manual fecal disimpaction for perforated sigmoid colon and fecal impaction on 10/20/20. The patient required to be transferred back to the ICU over the weekend due to atrial fibrillation with rapid ventricular response. Patient remains on Cardizem drip and IV amiodarone. Vascular surgery is planning to discontinue the IV heparin and switch patient over to Eliquis for his PE and DVT once PICC line is placed. Patient had been hypotensive requiring norepinephrine. Patient has received IV Lasix for edema in the extremities and scrotum. Patient is sitting up in the ICU bed. He is comfortable. He denies any pain. He has had a small amount of stool through his ostomy. He denies any nausea or vomiting. Afebrile. WBC 12.3 PHYSICAL EXAM: VITAL SIGNS: Reviewed. GENERAL: Well-developed in no acute distress. HEENT: No sclera icterus. Extraocular movements grossly intact. Moist buccal mucosa. Head is atraumatic, normocephalic. ABDOMEN: Soft. Nondistended. Incision dressing small amount of blood at the distal aspect of the dressing. Stoma is pink. There is sanguinous colored drainage in his ostomy bag and a small smear of stool. NEUROLOGIC: Alert and oriented. Cranial nerves II through XII grossly intact. ASSESSMENT: 1. Perforated sigmoid colon and fecal impaction status post sigmoid colectomy with end colostomy and manual fecal disimpaction, postop day #4 2. Peritonitis PLAN: -Continue ICU management -supportive care -Continue IV antibiotics -Continue full liquid diet Physician Auctioneer Art note has been reviewed by physician. Signing provider agrees with the documented findings, assessment, and plan of care. Objective - Vital Signs Vital signs: Vital Signs Temp 98.1 F 10/24/20 08:15 Pulse 108 H 10/24/20 11:00 Resp 18 10/24/20 11:00 BP 111/63 10/24/20 11:00 Pulse Ox 95 10/24/20 11:00 Intake & Output 10/23/20 10/24/20 10/24/20 18:59 06:59 18:59 Intake Total 1701.421 7922.036 900.042 Output Total 3225 540 1800 Balance -1845.791 676.036 -899.958 Weight 82.1 kg Intake: IV 910 640 600 D5-0.45% NaCl with KCl 510 440 200 20Meq/l 1,000 ml @ 40 mls /hr IV .Q24H [facility] Rx#: [id number] Magnesium Sulfate-D5w Pmx 100 100 1 gm In Dextrose/Water 1 100ml.bag @ 100 mls/hr IVPB Q1H [facility] Rx#: [id number] Piperacillin-Tazobactam 3 200 100 .375 gm In Sodium Chloride 0.9% 100 ml @ 25 mls/hr IVPB Q8HR [facility] Rx# :[id number] Potassium Chloride 10 meq 100 100 In Water For Injection 1 100ml.bag @ 100 mls/hr IVPB Q1H [facility] Rx#: [id number] metroNIDAZOLE-NS PMX 500 200 100 mg In Saline 1 100ml.bag @ 100 mls/hr IVPB Q8H [facility] Rx#:[id number] Intake, IV Titration 109.209 456.036 180.042 Amount Diltiazem 125 mg In 80.167 125 Sodium Chloride 0.9% 100 ml @ 10 MG/HR 10 mls/hr IV .[id number] [facility] Rx#: [id number] Heparin Sod,Pork in 0.45% 109.209 124.928 NaCl 25,000 unit In 0.45 % NaCl 1 250ml.bag @ 12 UNITS/KG/HR 8.772 mls/hr IV .Q24H [facility] Rx#: [id number] Norepinephrine 4 mg In 250.941 55.042 Sodium Chloride 0.9% 250 ml @ 0.05 MCG/KG/MIN 15. 011 mls/hr IV .[id number] [facility] Rx#:[id number] Oral 360 120 120 Output: Drainage 10 Right Abdomen 10 Urine 3225 530 1800 Other: Voiding Method Indwelling Catheter Indwelling Catheter - Labs CBC & Chem 7: 10/24/20 03:32 10/24/20 03:32 Labs: Abnormal Lab Results - Last 24 Hours (Table) 10/23/20 10/23/20 10/24/20 Range/Units 12:19 18:40 03:32 WBC 12.3 H (3.8-10.6) k/uL RBC 3.91 L (4.30-5.90) m/uL Hgb 11.8 L (13.0-17.5) gm/dL Hct 35.9 L (39.0-53.0) % Neutrophils # 10.4 H (1.3-7.7) k/uL APTT 42.4 H 81.6 H (22.0-30.0) sec Sodium (137-145) mmol/L Carbon Dioxide (22-30) mmol/L Glucose (74-99) mg/dL Calcium (8.4-10.2) mg/dL 10/24/20 10/24/20 Range/Units 03:32 03:32 WBC (3.8-10.6) k/uL RBC (4.30-5.90) m/uL Hgb (13.0-17.5) gm/dL Hct (39.0-53.0) % Neutrophils # (1.3-7.7) k/uL APTT 39.1 H (22.0-30.0) sec Sodium 133 L (137-145) mmol/L Carbon Dioxide 19 L (22-30) mmol/L Glucose 129 H (74-99) mg/dL Calcium 7.8 L (8.4-10.2) mg/dL Microbiology - Last 24 Hours (Table) 10/20/20 20:57 Anaerobic Culture - Final Other - Other Anaerobic Gm Negative Bacilli Anaerobic Gm Negative Bacilli#2 10/20/20 17:45 Blood Culture - Preliminary Blood No Growth after 72 hours 10/20/20 18:00 Blood Culture - Preliminary Blood No Growth after 72 hours <Eleuterio Dean - Last Filed: 10/24/20 13:59> Subjective As above. Patient in the ICU because of A. fib. Has not had a large volume of output through his stoma. Appears slightly distended. Abdominal x-rays obtained to evaluate for gastric distention and instead dilated colonic loops proximal to the ostomy appreciated. Patient denies any nausea. No vomiting. Continue full liquids for now. Advance diet further once better bowel function appreciated. Objective - Vital Signs Vital signs: Vital Signs Temp 98.1 F 10/24/20 08:15 Pulse 101 H 10/24/20 13:30 Resp 16 10/24/20 13:30 BP 99/65 10/24/20 13:30 Pulse Ox 95 10/24/20 13:30 Intake & Output 10/23/20 10/24/20 10/24/20 18:59 06:59 18:59 Intake Total 1404.451 7646.036 1010.042 Output Total 3225 540 2500 Balance -1845.791 676.036 -1489.958 Weight 82.1 kg Intake: IV 910 640 680 D5-0.45% NaCl with KCl 510 440 280 20Meq/l 1,000 ml @ 40 mls /hr IV .Q24H [facility] Rx#: [id number] Magnesium Sulfate-D5w Pmx 100 100 1 gm In Dextrose/Water 1 100ml.bag @ 100 mls/hr IVPB Q1H [facility] Rx#: [id number] Piperacillin-Tazobactam 3 200 100 .375 gm In Sodium Chloride 0.9% 100 ml @ 25 mls/hr IVPB Q8HR [facility] Rx# :[id number] Potassium Chloride 10 meq 100 100 In Water For Injection 1 100ml.bag @ 100 mls/hr IVPB Q1H [facility] Rx#: [id number] metroNIDAZOLE-NS PMX 500 200 100 mg In Saline 1 100ml.bag @ 100 mls/hr IVPB Q8H [facility] Rx#:[id number] Intake, IV Titration 109.209 456.036 180.042 Amount Diltiazem 125 mg In 80.167 125 Sodium Chloride 0.9% 100 ml @ 10 MG/HR 10 mls/hr IV .[id number] [facility] Rx#: [id number] Heparin Sod,Pork in 0.45% 109.209 124.928 NaCl 25,000 unit In 0.45 % NaCl 1 250ml.bag @ 12 UNITS/KG/HR 8.772 mls/hr IV .Q24H [facility] Rx#: [id number] Norepinephrine 4 mg In 250.941 55.042 Sodium Chloride 0.9% 250 ml @ 0.05 MCG/KG/MIN 15. 011 mls/hr IV .[id number] [facility] Rx#:[id number] Oral 360 120 150 Output: Drainage 10 Right Abdomen 10 Urine 3225 530 2500 Other: Voiding Method Indwelling Catheter Indwelling Catheter Indwelling Catheter - Labs CBC & Chem 7: 10/24/20 03:32 10/24/20 03:32 Labs: Abnormal Lab Results - Last 24 Hours (Table) 10/23/20 10/24/20 10/24/20 Range/Units 18:40 03:32 03:32 WBC 12.3 H (3.8-10.6) k/uL RBC 3.91 L (4.30-5.90) m/uL Hgb 11.8 L (13.0-17.5) gm/dL Hct 35.9 L (39.0-53.0) % Neutrophils # 10.4 H (1.3-7.7) k/uL APTT 81.6 H (22.0-30.0) sec Sodium 133 L (137-145) mmol/L Carbon Dioxide 19 L (22-30) mmol/L Glucose 129 H (74-99) mg/dL Calcium 7.8 L (8.4-10.2) mg/dL 10/24/20 10/24/20 Range/Units 03:32 12:28 WBC (3.8-10.6) k/uL RBC (4.30-5.90) m/uL Hgb (13.0-17.5) gm/dL Hct (39.0-53.0) % Neutrophils # (1.3-7.7) k/uL APTT 39.1 H 44.5 H (22.0-30.0) sec Sodium (137-145) mmol/L Carbon Dioxide (22-30) mmol/L Glucose (74-99) mg/dL Calcium (8.4-10.2) mg/dL Microbiology - Last 24 Hours (Table) 10/20/20 20:57 Anaerobic Culture - Final Other - Other Anaerobic Gm Negative Bacilli Anaerobic Gm Negative Bacilli#2 10/20/20 17:45 Blood Culture - Preliminary Blood No Growth after 72 hours 10/20/20 18:00 Blood Culture - Preliminary Blood No Growth after 72 hours Assessment and Plan (1) Bowel perforation Current Visit: Yes Status: Acute Code(s): K63.1 - PERFORATION OF INTESTINE (NONTRAUMATIC) SNOMED Code(s): 60169874
--- NOTE | 2020-10-24 12:27 | IR ---
EXAMINATION TYPE: IR cvc insert >=5 years DATE OF EXAM: 10/24/2020 COMPARISON: NONE HISTORY: Needs long-term intravenous access for vasopressors, therapy, infection FINDINGS: Maximal barrier technique was utilized. Hand hygiene obtained with soap and water and alco hol-based hand rub. The skin overlying the left brachial vein was localized with ultrasound and noted to be compressible and patent by ultrasound. An ultrasound image was obtained and submitted on radha ent's chart. Sterile technique utilized with the ultrasound machine. The skin overlying was prepped a nd draped and Lidocaine used for local anesthesia. A skin cedric was made with a scalpel. Access was gained to the vein under direct ultrasound guidance with a 21-gauge needle and a 0.018 inch wire was advanced. Access site was dilated with a peel-away sheath and the catheter tailored to length. Cath eter advanced centrally and a post procedure chest x-ray verified placement with the tip over the lev el of the superior vena cava. Catheter was fixed to the skin and a sterile dressing placed. Hemosta sis achieved and the catheter was aspirated and flushed with sterile saline. The patient remained in stable condition. Incidental note made of superficial venous thrombosis in the left basilic vein. IMPRESSION: STATUS POST ULTRASOUND GUIDED PICC LINE PLACEMENT, READY FOR USE. THIS PROCEDURE WAS PER FORMED BY THE UNDERSIGNED. Superficial venous thrombosis in the left basilic vein.
--- NOTE | 2020-10-24 12:54 | XR ---
EXAMINATION TYPE: XR abdomen 2V DATE OF EXAM: 10/24/2020 CLINICAL DATA: 85 year-old male abdominal swelling, PH[facility] COMPARISON: 10/19/2020 FINDINGS: Small left effusion with patchy left basilar opacity. No evidence for free intraperitoneal air. Interval vertical skin abdoulaye. Pelvic surgical drain. Diffuse air distention of the colon. Mild stoo l within the rectum. No definite dilated small bowel loops are identified. IMPRESSION: 1. Small left effusion with adjacent atelectasis and/or consolidation. 2. Diffuse air distention of the colon. Given post surgical status, consider postsurgical ileus. 3. No free air.
[2020-10-24] MEDS ORDERED: ALTEPLASE 2 MG VIAL (CATHFLO) IV STA (14:16)
[2020-10-24] MEDS: AMIODARONE 450 MG in DEXTROSE 5% IN WATER 250 ML IV SCH ×2 (14:39)
[2020-10-24] MEDS: D5-0.45% NACL WITH KCL 20MEQ/L 1,000 ML IV SCH (15:44)
[2020-10-24] MEDS: HEPARIN SOD,PORK IN 0.45% NACL 25,000 UNIT in 0.45% NACL 1 250ML.BAG IV SCH (15:46)
--- NOTE | 2020-10-24 17:04 | P.PN ---
Subjective HISTORY OF PRESENTING ILLNESS This is a pleasant 85-year-old male past medical history significant for hyperlipidemia, prior stroke, hypertension, who presented secondary to abdominal pain, no bowel movement for 3 weeks and constipation. He had a CAT scan performed which showed incidental PE as well. CAT scan abdomen and pelvis showed concern of perforated bowel and patient was taken to the OR with Kumar's procedure performed. Patient had been doing fairly well up until yesterday when he had atrial fibrillation with RVR with heart rates in the 160s. Patient was placed on a Cardizem drip as well as amiodarone drip with improvement in the heart rate to 100s to 1:15. He denies any chest pain or pressure. He remains on antibiotics for his sepsis and perforated bowel. With A. fib he was somewhat hypotensive and therefore placed on norepinephrine as well. He remains grossly edematous and additional dose of Lasix was ordered for today. He does have significant right upper extremity and scrotal edema. REVIEW OF SYSTEMS At the time of my exam: CONSTITUTIONAL: Denies fever or chills. CARDIOVASCULAR: Denies chest pain, shortness of breath, orthopnea, PND or palpitations. RESPIRATORY: Denies cough. GASTROINTESTINAL: Denies abdominal pain, diarrhea, constipation, nausea or vomiting. MUSCULOSKELETAL: Denies myalgias. NEUROLOGIC: Denies numbness, tingling or weakness. ENDOCRINE: Denies fatigue, weight change, polydipsia or polyurina. GENITOURINARY: Denies burning, hematuria or urgency with micturation. HEMATOLOGIC: Denies history of anemia or bleeding. PHYSICAL EXAMINATION Blood pressure [] heart rate [] afebrile and maintaining oxygen saturation on []. CONSTITUTIONAL: No apparent distress. HEENT: Head is normocephalic. Pupils are equal, round. Sclerae anicteric. Mucous membranes of the mouth are moist. No JVD. No carotid bruit. CHEST EXAMINATION: Lungs are clear to auscultation. No chest wall tenderness is noted on palpation or with deep breathing. HEART EXAMINATION: Regular rate and rhythm. S1, S2 heard. No murmurs, gallops or rub. ABDOMEN: Soft, nontender. Positive bowel sounds. EXTREMITIES: 2+ peripheral pulses, no lower extremity edema and no calf tenderness. NEUROLOGIC EXAMINATION: Patient is awake, alert and oriented x3. ASSESSMENT 1. Paroxysmal atrial fibrillation, currently mildly RVR 2. Postop day #4 status post Kumar's procedure for perforated sigmoid colon 3. History of hypertension, currently mildly hypotensive 4. Hypotension likely mainly related to sepsis however may be small additional component of A. fib with RVR 5. History of CVA 6. Mild dementia 7. Bilateral pulmonary emboli 8. Bilateral lower extremity DVT 9. Mildly decreased ejection fraction 45-50% with findings concerning for grade 3 diastolic dysfunction. PLAN Continue amiodarone drip and Cardizem drip. Transition to oral amiodarone. Suspect majority of hypotension related to sepsis as patient has not had much improvement with better control of the heart rates. His heart rates are mildly elevated 100s to 120s. May consider cardioversion however likely patient would go back in A. fib without any antiarrhythmics on. Continue to load with amiodarone. Continue supportive care. Objective - Vital Signs Vital signs: Vital Signs Temp 98.2 F 10/24/20 16:00 Pulse 113 H 10/24/20 16:30 Resp 16 10/24/20 16:30 BP 96/62 10/24/20 16:30 Pulse Ox 90 L 10/24/20 16:30 Intake & Output 10/23/20 10/24/20 10/24/20 18:59 06:59 18:59 Intake Total 3391.182 5537.036 1605.114 Output Total 3225 540 2850 Balance -1845.791 676.036 -1244.886 Weight 82.1 kg Intake: IV 910 640 900 D5-0.45% NaCl with KCl 510 440 400 20Meq/l 1,000 ml @ 40 mls /hr IV .Q24H [facility] Rx#: [id number] Magnesium Sulfate-D5w Pmx 100 100 1 gm In Dextrose/Water 1 100ml.bag @ 100 mls/hr IVPB Q1H [facility] Rx#: [id number] Piperacillin-Tazobactam 3 200 200 .375 gm In Sodium Chloride 0.9% 100 ml @ 25 mls/hr IVPB Q8HR [facility] Rx# :[id number] Potassium Chloride 10 meq 100 100 In Water For Injection 1 100ml.bag @ 100 mls/hr IVPB Q1H [facility] Rx#: [id number] metroNIDAZOLE-NS PMX 500 200 100 mg In Saline 1 100ml.bag @ 100 mls/hr IVPB Q8H [facility] Rx#:[id number] Intake, IV Titration 109.209 456.036 555.114 Amount Amiodarone 450 mg In 250 Dextrose 5% in Water 250 ml @ 0.5 MG/MIN 16.667 mls/hr IV .Q15H [facility] Rx#: [id number] Diltiazem 125 mg In 80.167 125 Sodium Chloride 0.9% 100 ml @ 10 MG/HR 10 mls/hr IV .[id number] [facility] Rx#: [id number] Heparin Sod,Pork in 0.45% 109.209 124.928 125.072 NaCl 25,000 unit In 0.45 % NaCl 1 250ml.bag @ 12 UNITS/KG/HR 8.772 mls/hr IV .Q24H [facility] Rx#: [id number] Norepinephrine 4 mg In 250.941 55.042 Sodium Chloride 0.9% 250 ml @ 0.05 MCG/KG/MIN 15. 011 mls/hr IV .[id number] [facility] Rx#:[id number] Oral 360 120 150 Output: Drainage 10 Right Abdomen 10 Urine 3225 530 2850 Other: Voiding Method Indwelling Catheter Indwelling Catheter Indwelling Catheter - Labs CBC & Chem 7: 10/24/20 03:32 10/24/20 03:32 Labs: Abnormal Lab Results - Last 24 Hours (Table) 10/23/20 10/24/20 10/24/20 Range/Units 18:40 03:32 03:32 WBC 12.3 H (3.8-10.6) k/uL RBC 3.91 L (4.30-5.90) m/uL Hgb 11.8 L (13.0-17.5) gm/dL Hct 35.9 L (39.0-53.0) % Neutrophils # 10.4 H (1.3-7.7) k/uL APTT 81.6 H (22.0-30.0) sec Sodium 133 L (137-145) mmol/L Carbon Dioxide 19 L (22-30) mmol/L Glucose 129 H (74-99) mg/dL Calcium 7.8 L (8.4-10.2) mg/dL 10/24/20 10/24/20 Range/Units 03:32 12:28 WBC (3.8-10.6) k/uL RBC (4.30-5.90) m/uL Hgb (13.0-17.5) gm/dL Hct (39.0-53.0) % Neutrophils # (1.3-7.7) k/uL APTT 39.1 H 44.5 H (22.0-30.0) sec Sodium (137-145) mmol/L Carbon Dioxide (22-30) mmol/L Glucose (74-99) mg/dL Calcium (8.4-10.2) mg/dL Microbiology - Last 24 Hours (Table) 10/20/20 20:57 Anaerobic Culture - Final Other - Other Anaerobic Gm Negative Bacilli Anaerobic Gm Negative Bacilli#2 10/20/20 17:45 Blood Culture - Preliminary Blood No Growth after 72 hours 10/20/20 18:00 Blood Culture - Preliminary Blood No Growth after 72 hours
[2020-10-24] MEDS: TAMSULOSIN 0.4 MG CAP.ER.24H PO SCH (20:53)
[2020-10-24] MEDS: AMIODARONE 200 MG TAB PO SCH (20:53)
--- NOTE | 2020-10-24 23:14 | PN ---
PROGRESS NOTE DATE OF SERVICE: 10/24/2020 REASON FOR FOLLOWUP: Secondary peritonitis from perforated bowel. INTERVAL HISTORY: Patient is currently afebrile. The patient is breathing comfortably. The patient denies having any chest pain. No shortness of breath. Occasional cough. No diarrhea. PHYSICAL EXAMINATION: Blood pressure is 101/46, pulse of 120, temperature 97.6, 92% on 2 L nasal cannula. General description is an elderly male lying in bed in no distress. Respiratory system: Unlabored breathing, decreased breath sounds in the base. No wheeze. Heart S1, S2. Regular rate and rhythm. ABDOMEN: Soft, no tenderness. LABS: Hemoglobin is 11.1, white count 12.3, BUN of 14 and creatinine 0.8. DIAGNOSTIC IMPRESSION AND PLAN: Patient with abdominal sepsis source secondary peritonitis, perforated bowel. Culture positive for Enterococcus, E coli and anaerobes. The patient is currently covered with Zosyn to continue while monitoring clinical course closely. Continue supportive care. MMODL / IJN: [id number] /
--- NOTE | 2020-10-24 23:58 | P.PN ---
Subjective This is a pleasant 85 years old male with past medical history of CVA/TIA, hypertension, residual right hemiparesis. He was admitted with abdominal pain and CAT scan of the abdomen showing free air and free fluid. He underwent exploratory laparotomy with sigmoid colectomy and colostomy and manual disimpaction Also on CT of the abdomen there was suspicion of PE which was shown on CT of the chest to have bilateral PE and bilateral lower extremity DVT on ultrasound of the lower extremities. Patient currently is on heparin drip. Echocardiogram: Showed ejection fraction of 45-50% with slight apical hypokinesia. Vascular surgery with Dr. Kang were consulted and they recommended to continue with heparin drip and this patient bleeds then IVC filter would be indicated per their recommendation. Patient is currently covered with Zosyn and ID team on the case 10/22/20 Patient is in the ICU, closely monitored for his perforated viscus where his been treated for secondary peritonitis and bilateral DVT and PE He is lying in bed generally weak still complaining from pain on the right lower abdomen and surgical site. Histo on heparin drip and D5 half-normal saline at 75 mL/h. Also on Zosyn and Flagyl He is on clear liquid diet eating about 50-75% of his meals CBC and BMP are stable Blood culture is growing group D enterococcus 10/23/2020 Patient in the ICU monitored closely. He had an eventful one last night. He feels flat his abdominal pain is slightly better compared to yesterday. He still on anticoagulation for bilateral DVT and PE with no new complaint. He is still covered with broad-spectrum antibiotics with Zosyn and Flagyl for his peritonitis He was about to be documented when he developed A. fib and RVR, cartilage team were consulted and they started him on Cardizem drip and metoprolol 25 mg twice a day. 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 To consider for Advance diet and still tachycardic 150-1:30 Cardiology switched to amiodarone [place] 400 mg twice a day. Also on Cardizem drip. Cardiology team are considering cardioversion Patient continue on heparin drip as well. His currently on Zosyn and Flagyl for his secondary peritonitis and perforated viscus.. Continue with current respiratory Review of systems CONSTITUTIONAL: No fever, no malaise, no fatigue. HEENT: No recent visual problems or hearing problems. Denied any sore throat. CARDIOVASCULAR: No orthopnea, PND, no palpitations, no syncope. PULMONARY: No chest wall tenderness, no hemoptysis. GASTROINTESTINAL: No diarrhea, no nausea, no vomiting, no abdominal pain. Normoactive bowel sounds. NEUROLOGICAL: No headaches, no weakness, no numbness. HEMATOLOGICAL: Denies any bleeding or petechiae. Active Medications Generic Name Dose Route Start Last Admin Trade Name Freq PRN Reason Stop Dose Admin Heparin Sodium (Porcine) 0 unit 10/21/20 12:23 Heparin Sodium,Porcine 5,000 Unit/Ml 1 Ml Vial IV PER PROTOCOL PRN Low PTT Protocol Hydromorphone HCl 1 mg 10/20/20 21:07 10/23/20 03:51 Hydromorphone 1 Mg/Ml 1 Ml Syringe IVP 1 mg Q3HR PRN Administration Moderate to Severe Pain Potassium Chloride/Dextrose/Sod Cl 1,000 mls @ 40 mls/hr 10/20/20 21:15 10/23/20 09:24 D5%-1/2ns-Kcl 20 Meq/L Iv Solution IV Not Given .Q24H KATHLEEN Metronidazole 500 mg/ IV 100 mls @ 100 mls/hr 10/21/20 02:00 10/23/20 09:42 Solution IVPB 100 mls/hr Q8H KATHLEEN Administration Piperacillin Sod/Tazobactam 100 mls @ 25 mls/hr 10/21/20 16:00 10/23/20 09:43 Sod 3.375 gm/ Sodium Chloride IVPB 25 mls/hr Q8HR KATHLEEN Administration Heparin Sodium/Sodium Chloride 250 mls @ 8.772 mls/hr 10/21/20 12:30 10/23/20 05:23 25,000 unit/ Sodium Chloride IV 14 units/kg/hr .Q24H KATHLEEN 10.234 mls/hr Titration Protocol 12 UNITS/KG/HR Diltiazem HCl 125 mg/ Sodium 125 mls @ 10 mls/hr 10/23/20 12:00 10/23/20 12:03 Chloride IV 10 mg/hr .[id number] KATHLEEN 10 mls/hr Administration 10 MG/HR Memantine 10 mg 10/23/20 21:00 Memantine 10 Mg Tab PO BID KATHLEEN Metoprolol Tartrate 25 mg 10/23/20 12:00 10/23/20 11:56 Metoprolol Tartrate 25 Mg Tab PO 25 mg BID KATHLEEN Administration Naloxone HCl 0.2 mg 10/20/20 17:45 Naloxone 0.4 Mg/Ml 1 Ml Vial IV Q2M PRN Opioid Reversal Ondansetron HCl 4 mg 10/20/20 21:07 Ondansetron 4 Mg/2 Ml Vial IVP Q8HR PRN Nausea And Vomiting Pantoprazole Sodium 40 mg 10/21/20 09:00 10/23/20 09:43 Pantoprazole 40 Mg/10 Ml Vial IV 40 mg DAILY KATHLEEN Administration Polyethylene Glycol 17 gm 10/24/20 09:00 Polyethylene Glycol 3350 17 Gm Powd.Pack PO DAILY KATHLEEN Tamsulosin HCl 0.4 mg 10/23/20 21:00 Tamsulosin 0.4 Mg Cap.Er.24h PO HS [facility] Objective - Vital Signs Vital signs: Vital Signs Temp 97.6 F 10/24/20 20:00 Pulse 128 H 10/24/20 20:15 Resp 25 H 10/24/20 20:15 BP 101/46 10/24/20 20:15 Pulse Ox 90 L 10/24/20 20:15 Intake & Output 10/24/20 10/24/20 10/25/20 06:59 18:59 06:59 Intake Total 2569.430 0531.114 301.903 Output Total 540 3150 265 Balance 676.036 -1364.886 36.903 Weight 82.1 kg Intake: IV 640 1080 80 D5-0.45% NaCl with KCl 440 480 80 20Meq/l 1,000 ml @ 40 mls /hr IV .Q24H KATHLEEN Rx#: [id number] Magnesium Sulfate-D5w Pmx 100 100 1 gm In Dextrose/Water 1 100ml.bag @ 100 mls/hr IVPB Q1H KATHLEEN Rx#: [id number] Piperacillin-Tazobactam 3 200 .375 gm In Sodium Chloride 0.9% 100 ml @ 25 mls/hr IVPB Q8HR KATHLEEN Rx# :[id number] Potassium Chloride 10 meq 100 100 In Water For Injection 1 100ml.bag @ 100 mls/hr IVPB Q1H KATHLEEN Rx#: [id number] metroNIDAZOLE-NS PMX 500 200 mg In Saline 1 100ml.bag @ 100 mls/hr IVPB Q8H KATHLEEN Rx#:[id number] Intake, IV Titration 456.036 555.114 221.903 Amount Amiodarone 450 mg In 250 Dextrose 5% in Water 250 ml @ 0.5 MG/MIN 16.667 mls/hr IV .Q15H KATHLEEN Rx#: [id number] Diltiazem 125 mg In 80.167 125 110.667 Sodium Chloride 0.9% 100 ml @ 10 MG/HR 10 mls/hr IV .[id number] KATHLEEN Rx#: [id number] Heparin Sod,Pork in 0.45% 124.928 125.072 NaCl 25,000 unit In 0.45 % NaCl 1 250ml.bag @ 12 UNITS/KG/HR 8.772 mls/hr IV .Q24H KATHLEEN Rx#: [id number] Norepinephrine 4 mg In 250.941 55.042 111.236 Sodium Chloride 0.9% 250 ml @ 0.05 MCG/KG/MIN 15. 011 mls/hr IV .[id number] KATHLEEN Rx#:[id number] Oral 120 150 Output: Drainage 10 10 Right Abdomen 10 10 Urine 530 3150 255 Other: Voiding Method Indwelling Catheter Indwelling Catheter - Exam GENERAL: The patient is alert and oriented x3, not in any acute distress. Well developed, well nourished. HEENT: Pupils are round and equally reacting to light. EOMI. No scleral icterus. No conjunctival pallor. Normocephalic, atraumatic. No pharyngeal erythema. No thyromegaly. CARDIOVASCULAR: S1 and S2 present. No murmurs, rubs, or gallops. PULMONARY: Chest is clear to auscultation, no wheezing or crackles. -ABDOMEN: Soft, nontender, nondistended, normoactive bowel sounds. No palpable organomegaly. Surgical wound is closed and healing with a dressing MUSCULOSKELETAL: No joint swelling or deformity. EXTREMITIES: No cyanosis, clubbing, or pedal edema. NEUROLOGICAL: Gross neurological examination did not reveal any focal deficits. SKIN: No rashes. no petechiae. - Labs CBC & Chem 7: 10/24/20 03:32 10/24/20 03:32 Labs: Abnormal Lab Results - Last 24 Hours (Table) 10/24/20 10/24/20 10/24/20 Range/Units 03:32 03:32 03:32 WBC 12.3 H (3.8-10.6) k/uL RBC 3.91 L (4.30-5.90) m/uL Hgb 11.8 L (13.0-17.5) gm/dL Hct 35.9 L (39.0-53.0) % Neutrophils # 10.4 H (1.3-7.7) k/uL APTT 39.1 H (22.0-30.0) sec Sodium 133 L (137-145) mmol/L Carbon Dioxide 19 L (22-30) mmol/L Glucose 129 H (74-99) mg/dL Calcium 7.8 L (8.4-10.2) mg/dL 10/24/20 Range/Units 12:28 WBC (3.8-10.6) k/uL RBC (4.30-5.90) m/uL Hgb (13.0-17.5) gm/dL Hct (39.0-53.0) % Neutrophils # (1.3-7.7) k/uL APTT 44.5 H (22.0-30.0) sec Sodium (137-145) mmol/L Carbon Dioxide (22-30) mmol/L Glucose (74-99) mg/dL Calcium (8.4-10.2) mg/dL Microbiology - Last 24 Hours (Table) 10/20/20 17:45 Blood Culture - Preliminary Blood No Growth after 96 hours 10/20/20 18:00 Blood Culture - Preliminary Blood No Growth after 96 hours 10/20/20 20:57 Anaerobic Culture - Final Other - Other Anaerobic Gm Negative Bacilli Anaerobic Gm Negative Bacilli#2 Assessment and Plan Assessment: -Bowel/sigmoid perforation status post exploratory laparotomy, sigmoid colectomy and colostomy with manual fecal disimpaction -Bilateral pulmonary emboli secondary to bilateral DVT. With no evidence of RV citrine on CT or echo -Mild hypoxic respiratory failure -Atrial fibrillation with RVR -Secondary peritonitis -History of CVA with right hemiparesis -Hypertension Plan: This is a pleasant 85 years old male who presents with bowel obstruction and perforation status post sigmoid colectomy and colostomy. Also has bilateral PE/DVT. Currently he is kept on heparin drip with close monitoring for signs of rebleeding with vascular surgery close monitoring the case to place IVC filter. Patient cannot tolerate anticoagulation consult cardiology for A. fib. 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 Continue with symptomatic treatment. Resume home medication. Monitor lytes and vitals. DVT and GI prophylaxis. Further recommendationsas per clinical course of the patient DVT prophylaxis: heparin GI Prophylaxis: Pepcid Prognosis is guarded
[2020-10-25] MEDS: D5-0.45% NACL WITH KCL 20MEQ/L 1,000 ML IV SCH (00:11)
[2020-10-25] MEDS: PIPERACILLIN-TAZOBACTAM 3.375 GM in SODIUM CHLORIDE 0.9% 100 ML IVPB SCH ×3 (00:12→16:32)
[2020-10-25] MEDS: metroNIDAZOLE-NS PMX 500 MG in SALINE 1 100ML.BAG IVPB SCH ×3 (02:34→17:06)
[2020-10-25 04:20] LABS: Basophils % (A) 0 %; Eosinophils % (A) 0 %; HCT 36.9 % (39.0-53.0); HGB 11.9 gm/dL (13.0-17.5); Lymphocytes # (A) 0.9 k/uL (1.0-4.8); Lymphocytes % (A) 7 %; MCH 29.4 pg (25.0-35.0); MCHC 32.4 g/dL (31.0-37.0); MCV 90.9 fL (80.0-100.0); Mean Platelet Volume 9.1; Monocytes # (A) 0.6 k/uL (0-1.0); Monocytes % (A) 4 %; Neutrophils # (A) 11.5 k/uL (1.3-7.7); Neutrophils % (A) 87 %; Platelet Count 313 k/uL (150-450); RBC 4.05 m/uL (4.30-5.90); RDW 13.3 % (11.5-15.5); WBC 13.2 k/uL (3.8-10.6)
[2020-10-25 04:33] LABS: African American GFR (CKD) >90 (>60 ml/min/1.73 sqM); Anion Gap 7 mmol/L; Blood Urea Nitrogen 13 mg/dL (9-20); Carbon Dioxide 21 mmol/L (22-30); Chloride 104 mmol/L (98-107); Glucose 115 mg/dL (74-99); Non-African American GFR(CKD) 78 (>60 ml/min/1.73 sqM); Sodium 132 mmol/L (137-145)
[2020-10-25 04:34] LABS: ALT 16 U/L (4-49); AST 33 U/L (17-59); Albumin 2.1 g/dL (3.5-5.0); Alkaline Phosphatase 96 U/L (38-126); Calcium 7.8 mg/dL (8.4-10.2); Potassium 3.8 mmol/L (3.5-5.1); Total Bilirubin 0.8 mg/dL (0.2-1.3); Total Protein 4.6 g/dL (6.3-8.2)
[2020-10-25] MEDS: POTASSIUM CHLORIDE 10 MEQ in WATER FOR INJECTION 1 100ML.BAG IVPB SCH ×2 (08:01→09:15)
[2020-10-25] MEDS: DILTIAZEM 125 MG in SODIUM CHLORIDE 0.9% 100 ML IV SCH (08:02)
[2020-10-25] MEDS ORDERED: DEXTROSE 5% IN WATER 100 ML with AMIODARONE 150 MG IV ONE (08:15)
[2020-10-25] MEDS ORDERED: FUROSEMIDE 10 MG/ML 4 ML VIAL IV STA (08:16)
--- NOTE | 2020-10-25 08:19 | P.PN ---
Subjective Progress Note Date: 10/25/20 This is an 85-year-old male who presents to the emergency department, complaining of unable to urinate. The patient also has not had a bowel movement in 3 weeks. He apparently was recently admitted for constipation but then was discharged. The patient has a history of colitis. The patient apparently feels nauseated, and his abdomen is distended. He denies any vomiting. Denied any chest pain. He also denied any shortness of breath. He apparently was found have a perforated viscus, and underwent a Kumar's procedure by Dr. Dean. He is postop day #1. Dr. Dean called me yesterday and asked whether or not we could put the patient in the ICU overnight. He was concerned given the patient's age. In addition, in the process of evaluating the patient, the patient was found to have bilateral pulmonary emboli, moderate clot burden, right greater than left, and also bilateral lower extremity DVT. Because of the recent surgery, he cannot be heparinized. Apparently, the vascular surgeon was called, and at this point, no interventions are planned. The patient apparently has a history of CVA, hypertension, and chronic prostate disease. He is currently on lactulose, MiraLAX, multiple vitamins, Flomax, Namenda, and Zocor. He is resting comfortably in the ICU. He is on O2 at 2 L. He is getting dextrose, with half-normal saline, with 20 mEq of potassium at 125 mL an hour. I didn't passed onto the nurse, that may be vascular surgery would prefer to do a [place] filter. The patient is without distress. Progress note dated 10/22/2020. This is a 85-year-old male, who is postop day #2, status post Kumar's procedure, with sigmoid colectomy and end colostomy, for perforated sigmoid colon and fecal impaction. The patient was also discovered have bilateral DVTs, and bilateral pulmonary emboli, right greater than left, with moderate clot burden. The patient's currently on IV heparin, weight based protocol, D5.45, with 20 of potassium, 125 mL an hour, and O2 at 2 L. The patient has a history of CVA, BPH, dementia, hyperlipidemia, essential hypertension and chronic co nstipation. Surprisingly, the patient seemed be doing relatively well. I did ask vascular surgery whether or not a [place] filter would be appropriate given the fact that he was at high risk for anticoagulation given his age. Initially, the surgeon did not want to start blood thinners because of the recent surgery. Currently, from the clinical standpoint, he is doing well. White count 8.8, hemoglobin 11.3, hematocrit 35.5, and platelet count 209,000. PTT is 45.7. Sodium 133, potassium 4.4, chlorides 106, CO2 23, anion gap 4, BUN 26, and creatinine 0.79. Progress note dated 10/23/2020. 85-year-old male, who is postop day #3, status post Kumar's procedure, with sigmoid colectomy, and end colostomy, for perforated sigmoid colon and fecal impaction. In addition, at the time of his initial evaluation, he was found to have bilateral DVT, and also, bilateral pulmonary emboli, right greater than left, with moderate clot burden. Currently, the patient continues on 2 L nasal cannula. He is on heparin via weightbase protocol. He is also getting dextrose with half-normal saline with 20 mEq of potassium chloride, at 75 mL an hour, to be reduced down to 40 mL an hour. In addition, the patient received Lasix 40 mg IV push 1. The patient was also on saline at 75 mL an hour, but that IV was discontinued. His weight has jumped, and is receiving much more fluid than urine output. Also, unfortunately, we're all set to discharge the patient to the general medical floor without telemetry, where he developed atrial fibrillation with RVR, was started on a Cardizem drip, and given some beta jerry. Also, initially, the surgeon did not want the patient on blood thinners, but did change his mind, and currently the patient is on heparin. On 10/24/2020 the patient is being seen in follow-up in the intensive care unit. The patient is postop day #4. The patient underwent a sigmoid colectomy and end colostomy and the patient has a Kumar pouch. He presented to the hospital because of constipation and patient was found to have perforated sigmoid colon with fecal impaction. Abdominal wound cultures growing E. coli in addition to Enterococcus faecalis and fisherman the patient is on a combination of Zosyn and Flagyl. Over the past 24 hours, the patient went into atrial fibrillation with rapid ventricular response. His blood pressure also became somewhat hypote nsive. He was placed on a combination of norepinephrine for blood pressure support and is currently running at 0.09 mcg/kg per minute. The patient was also started on Cardizem drip initially at 10 mg an hour and currently is also on amiodarone drip at 0.5 mg per minute. Current heart rate is around 107 and is still irregular. Most recent blood pressure is 93/61. He is producing urine output. He is awake and alert and currently is on oxygen at 2 L per minute. He continues to have edema both in the upper and lower extremities more so on the right as the patient had a previous CVA on the right. Abdomen is nondistended. Bowel sounds are sluggish. Colostomy site is viable and the tissue looks healthy. Minimal amount of liquid collecting in the colostomy bag. Bowel sounds are hypoactive. Abdomen is nondistended.The white cell count is at 12.3 with a hemoglobin of 11.8. The patient remains on IV heparin as the patient has a new onset atrial fibrillation. The patient also has bilateral lower extremity DVT. His PTT is therapeutic for now. The patient is being given clear liquid diet. The patient is also using incentive spirometer. He is awake and alert and communicating. Discussed the case with cardiology and there is a constellation for cardioversion due to his ongoing atrial fibrillation with rapid ventricular response despite being on a Cardizem drip and amiodarone. His level is good ejection fraction has been within normal limits. He is on IV fluids at the rate of 50 mL an hour of D5 half-normal with potassium supplements. On 10/25/2020 I'm seeing the patient in follow-up in intensive care unit. The patient is postop day #5 following a sigmoid colectomy and end colostomy and Kumar's pouch. The patient is also infected. Abdominal cultures showed E. coli and Enterococcus faecalis and fascial and the patient remains on a combination of Zosyn and Flagyl. Note that anaerobic bacteria is also growing in the abdominal wounds. As such, this is a polymicrobial growth related to bowel perforation. The patient is currently extubated and he is hemodynamically stable. Nevertheless, the active issue for now is his atrial fibrillation with rapid ventricular response and his heart rate is in the 150 range, irregular despite being on a combination of Cardizem drip and amiodarone. The patient was switched to oral amiodarone and subsequently earlier this morning he was switched back to amiodarone drip at 1 mg an hour and he was given 150 mg bolus and the plan is to proceed with cardioversion because of his persistent atrial fibrillation. He remains on IV heparin for now. The patient is also on D5 half-normal saline with potassium supplements running at or cc an hour. Significant amount of fluid overload yesterday with extensive edema in all 4 extremities and the patient was given a dose of Lasix and the neck fluid balance over the past 24 hours has been -1 L. He is afebrile. He is on norepinephrine infusion which is running at 0.04 mcg/kg per minute.. The white cell count of 13.2 with hemoglobin 11.9. PTT is therapeutic at 73. The rest of the blood work and electrodes are all within normal limits. As for the ileus, the patient has some vague abdominal distention yesterday and the left arm of the abdomen showed a component of ileus. Overnight, he was not passing any gas and subsequently he had large amount of gas collecting in the colostomy bag and he seems to be somewhat deflated. Bowel sounds remain hypoactive at this point in time. The patient remains nothing by mouth. She is awake and alert and oriented. Following commands appropriately. He is postop day #5. Clinically, slightly more lethargic compared to yesterday, yet very much appropriate and responsive. Objective - Vital Signs Vital signs: Vital Signs Temp 97.9 F 10/25/20 04:00 Pulse 149 H 10/25/20 07:30 Resp 21 10/25/20 07:30 BP 99/85 10/25/20 07:30 Pulse Ox 94 L 10/25/20 07:30 Intake & Output 10/24/20 10/25/20 10/25/20 18:59 06:59 18:59 Intake Total 1785.114 884.066 158.667 Output Total 3150 605 30 Balance -1364.886 279.066 128.667 Weight 80.8 kg Intake: IV 1080 480 40 D5-0.45% NaCl with KCl 480 480 40 20Meq/l 1,000 ml @ 40 mls /hr IV .Q24H [facility] Rx#: [id number] Magnesium Sulfate-D5w Pmx 100 1 gm In Dextrose/Water 1 100ml.bag @ 100 mls/hr IVPB Q1H [facility] Rx#: [id number] Piperacillin-Tazobactam 3 200 .375 gm In Sodium Chloride 0.9% 100 ml @ 25 mls/hr IVPB Q8HR [facility] Rx# :[id number] Potassium Chloride 10 meq 100 In Water For Injection 1 100ml.bag @ 100 mls/hr IVPB Q1H [facility] Rx#: [id number] metroNIDAZOLE-NS PMX 500 200 mg In Saline 1 100ml.bag @ 100 mls/hr IVPB Q8H [facility] Rx#:[id number] Intake, IV Titration 555.114 304.066 118.667 Amount Amiodarone 450 mg In 250 Dextrose 5% in Water 250 ml @ 0.5 MG/MIN 16.667 mls/hr IV .Q15H [facility] Rx#: [id number] Diltiazem 125 mg In 125 110.667 118.667 Sodium Chloride 0.9% 100 ml @ 10 MG/HR 10 mls/hr IV .[id number] [facility] Rx#: [id number] Heparin Sod,Pork in 0.45% 125.072 NaCl 25,000 unit In 0.45 % NaCl 1 250ml.bag @ 12 UNITS/KG/HR 8.772 mls/hr IV .Q24H [facility] Rx#: [id number] Norepinephrine 4 mg In 55.042 193.399 Sodium Chloride 0.9% 250 ml @ 0.05 MCG/KG/MIN 15. 011 mls/hr IV .[id number] [facility] Rx#:[id number] Oral 150 100 Output: Drainage 10 Right Abdomen 10 Urine 3150 595 30 Other: Voiding Method Indwelling Catheter Indwelling Catheter - Exam No acute distress, oriented 3. Nasal O2 in place at 2 L. HEENT examination is grossly unremarkable. Mucous membranes are moist. No oral lesions. Neck supple. Full range of motion. No adenopathy thyromegaly or neck vein distention. Cardiovascular examination reveals an irregular rhythm and rate. The patient continues to be tachycardic with a heart rate ranging between 110-140 Murmurs could not be appreciated. Lungs reveal clear breath sounds. Her sounds are equal bilaterally. No adventitious lung sounds including wheezes rhonchi or crackles. Abdomen soft, without bowel sounds. Colostomy is noted. There is some gas accumulating in his colostomy bag and there is no stool output yet. Bowel sounds are hypoactive at the present. Abdomen is slightly distended and the top part and the surgical wound site is dry clean and intact. The patient has a DONOVAN drain in place and output is serosanguineous. Surgical wound site is dry clean and intact. Patient also has some scrotal edema. Extremities are intact. No cyanosis clubbing and the patient has extensive edema bilaterally more so on the right side. Legs are also edematous. The patient also had a scrotal edema. Skin is without rash or lesion. Neurologic examination awake and alert and he has right-sided weakness and contractures which are essentially chronic. He is awake and alert and following commands and answering questions and is appropriate. - Labs CBC & Chem 7: 10/25/20 03:30 10/25/20 03:30 Labs: Abnormal Lab Results - Last 24 Hours (Table) 10/24/20 10/25/20 10/25/20 Range/Units 12:28 03:30 03:30 WBC (3.8-10.6) k/uL RBC (4.30-5.90) m/uL Hgb (13.0-17.5) gm/dL Hct (39.0-53.0) % Neutrophils # (1.3-7.7) k/uL Lymphocytes # (1.0-4.8) k/uL APTT 44.5 H 73.6 H (22.0-30.0) sec Sodium 132 L (137-145) mmol/L Carbon Dioxide 21 L (22-30) mmol/L Glucose 115 H (74-99) mg/dL Calcium 7.8 L (8.4-10.2) mg/dL Total Protein 4.6 L (6.3-8.2) g/dL Albumin 2.1 L (3.5-5.0) g/dL 10/25/20 Range/Units 03:30 WBC 13.2 H (3.8-10.6) k/uL RBC 4.05 L (4.30-5.90) m/uL Hgb 11.9 L (13.0-17.5) gm/dL Hct 36.9 L (39.0-53.0) % Neutrophils # 11.5 H (1.3-7.7) k/uL Lymphocytes # 0.9 L (1.0-4.8) k/uL APTT (22.0-30.0) sec Sodium (137-145) mmol/L Carbon Dioxide (22-30) mmol/L Glucose (74-99) mg/dL Calcium (8.4-10.2) mg/dL Total Protein (6.3-8.2) g/dL Albumin (3.5-5.0) g/dL Microbiology - Last 24 Hours (Table) 10/20/20 17:45 Blood Culture - Preliminary Blood No Growth after 96 hours 10/20/20 18:00 Blood Culture - Preliminary Blood No Growth after 96 hours Assessment and Plan Plan: 1 Postop day # 5, status post Kumar's procedure, with sigmoid colectomy and end colostomy, for perforated sigmoid colon and fecal impaction. The intra- abdominal cultures showed E. coli in addition to enterococcus fascia and faecalis and the patient remains on examination of Zosyn and Flagyl. The patient also has some anaerobes growing in the abdominal wound and antibiotic coverage remain the same. He remains on low-dose pressors with norepinephrine infusion running at 0.04 mcg/kg per minute. Significant fluid overload and he is getting gentle diuresis with Lasix on a daily basis. 2 Bilateral pulmonary emboli, right greater than left, with moderate clot burden, currently on IV heparin, PTT is therapeutic and the PICC line was placed and flushed with TPA yesterday for some difficulties with clogging 3 Bilateral lower extremity DVT, currently on IV heparin 4 New onset atrial fibrillation with rapid ventricular response, currently on a Cardizem drip 10 mg an hour and amiodarone at 0.1 mg/m. The patient is still tachycardic. The patient is going to be cardioverted today 5 History of CVA. 6 History of BPH. 7 History of dementia. 8 History of hyperlipidemia. 9 History of hypertension. 10 History of chronic constipation. 11 ileus improving with some gas accumulating in his colostomy bag and abdomen is less distended and there are some bowel sounds noted. DONOVAN drain is in place. Plan: cardioversion today regarding this atrial fibrillation with rapid ventricular response. He meanwhile, continue Cardizem and amiodarone and beta blockers. IV heparin per protocol and this will be continued Give additional dose of Lasix 40 mg IV push 1 as the patient has significant edema in the extremities and scrotum. This will be a second dose knowing that the first dose was given to him yesterday Wean off norepinephrine as tolerated to maintain a blood pressure mean of above 65 Continue Zosyn and Flagyl and monitor the abdominal cultures Keep the patient nothing by mouth for now and monitor the ileus and the patient has gas and minimal amount of liquid emanating in the colostomy bag The patient ICU and the patient will be kept in the intensive care units for now Continue incentive spirometer and the patient is pulling approximately thousand Monitor mental status The patient's overall prognosis remains guarded. We will continue to follow make recommendations were appropriate. Prognosis is certainly guarded.
--- NOTE | 2020-10-25 08:21 | XR ---
EXAMINATION TYPE: XR chest 1V portable DATE OF EXAM: 10/25/2020 COMPARISON: Chest x-ray dated 10/24/2020 HISTORY: Acute hypoxic respiratory failure TECHNIQUE: Single frontal view of the chest is obtained. FINDINGS: The PICC line has been withdrawn to the level of the left subclavian vein. No other signif icant interval change. Patient is rotated. Interstitium is prominent. There is evidence of old right- sided rib fracture which is likely healed. There is no pneumothorax. Basilar density in the retrocard iac location obscures the left hemidiaphragm. Cardiomediastinal silhouette is unchanged accounting fo r differences in technique. Interstitium is increased. Right lung apex not entirely included on the e xam. Aorta is dense. IMPRESSION: Possible left lower lobe atelectasis versus pneumonia and associated effusion. PICC line is withdrawn in the interval. Mild interstitial changes present within the lungs.
[2020-10-25] MEDS ORDERED: AMIODARONE 360 MG in DEXTROSE 5% IN WATER 200 ML IV ONE ×2 (08:25)
[2020-10-25] MEDS: PANTOPRAZOLE 40 MG/10 ML VIAL IV SCH (09:15)
--- NOTE | 2020-10-25 09:21 | P.PN ---
Subjective Progress Note Date: 10/25/20 Principal diagnosis: bilateral pulmonary embolism, bilateral DVT Patient seen and examined in the ICU. He is without any acute changes through the night. He continues in A. fib with RVR. He is been on a Cardizem and amiodarone drip. Plan is for cardioversion today. We'll continue with heparin drip. Objective - Vital Signs Vital signs: Vital Signs Temp 97.9 F 10/25/20 04:00 Pulse 149 H 10/25/20 07:30 Resp 21 10/25/20 07:30 BP 99/85 10/25/20 07:30 Pulse Ox 94 L 10/25/20 07:30 Intake & Output 10/24/20 10/25/20 10/25/20 18:59 06:59 18:59 Intake Total 1785.114 884.066 158.667 Output Total 3150 605 30 Balance -1364.886 279.066 128.667 Weight 80.8 kg Intake: IV 1080 480 40 D5-0.45% NaCl with KCl 480 480 40 20Meq/l 1,000 ml @ 40 mls /hr IV .Q24H [facility] Rx#: [id number] Magnesium Sulfate-D5w Pmx 100 1 gm In Dextrose/Water 1 100ml.bag @ 100 mls/hr IVPB Q1H [facility] Rx#: [id number] Piperacillin-Tazobactam 3 200 .375 gm In Sodium Chloride 0.9% 100 ml @ 25 mls/hr IVPB Q8HR [facility] Rx# :[id number] Potassium Chloride 10 meq 100 In Water For Injection 1 100ml.bag @ 100 mls/hr IVPB Q1H [facility] Rx#: [id number] metroNIDAZOLE-NS PMX 500 200 mg In Saline 1 100ml.bag @ 100 mls/hr IVPB Q8H [facility] Rx#:[id number] Intake, IV Titration 555.114 304.066 118.667 Amount Amiodarone 450 mg In 250 Dextrose 5% in Water 250 ml @ 0.5 MG/MIN 16.667 mls/hr IV .Q15H [facility] Rx#: [id number] Diltiazem 125 mg In 125 110.667 118.667 Sodium Chloride 0.9% 100 ml @ 10 MG/HR 10 mls/hr IV .[id number] [facility] Rx#: [id number] Heparin Sod,Pork in 0.45% 125.072 NaCl 25,000 unit In 0.45 % NaCl 1 250ml.bag @ 12 UNITS/KG/HR 8.772 mls/hr IV .Q24H [facility] Rx#: [id number] Norepinephrine 4 mg In 55.042 193.399 Sodium Chloride 0.9% 250 ml @ 0.05 MCG/KG/MIN 15. 011 mls/hr IV .[id number] [facility] Rx#:[id number] Oral 150 100 Output: Drainage 10 Right Abdomen 10 Urine 3150 595 30 Other: Voiding Method Indwelling Catheter Indwelling Catheter - Exam General appearance: The patient is alert, oriented, appears in no acute distress. HET: Head is normocephalic and atraumatic. Neck: Supple without lymphadenopathy. Trachea midline. Heart: S1 S2. Irregular rate and rhythm. Lungs: Clear to auscultation. Abdomen: Soft, incisional tenderness, dressings clean dry and intact. DONOVAN drain, ostomy site left lower quadrant. Nondistended, Positive bowel sounds. Extremities: Normal skin color and turgor, warm to touch. Bilateral pedal edema. Multiphasic DP and PT signal. Neurological: No focal deficits. Strength and sensation are grossly intact. - Labs CBC & Chem 7: 10/25/20 03:30 10/25/20 03:30 Labs: Abnormal Lab Results - Last 24 Hours (Table) 10/24/20 10/25/20 10/25/20 Range/Units 12:28 03:30 03:30 WBC (3.8-10.6) k/uL RBC (4.30-5.90) m/uL Hgb (13.0-17.5) gm/dL Hct (39.0-53.0) % Neutrophils # (1.3-7.7) k/uL Lymphocytes # (1.0-4.8) k/uL APTT 44.5 H 73.6 H (22.0-30.0) sec Sodium 132 L (137-145) mmol/L Carbon Dioxide 21 L (22-30) mmol/L Glucose 115 H (74-99) mg/dL Calcium 7.8 L (8.4-10.2) mg/dL Total Protein 4.6 L (6.3-8.2) g/dL Albumin 2.1 L (3.5-5.0) g/dL 10/25/20 10/25/20 Range/Units 03:30 07:45 WBC 13.2 H (3.8-10.6) k/uL RBC 4.05 L (4.30-5.90) m/uL Hgb 11.9 L (13.0-17.5) gm/dL Hct 36.9 L (39.0-53.0) % Neutrophils # 11.5 H (1.3-7.7) k/uL Lymphocytes # 0.9 L (1.0-4.8) k/uL APTT 81.9 H (22.0-30.0) sec Sodium (137-145) mmol/L Carbon Dioxide (22-30) mmol/L Glucose (74-99) mg/dL Calcium (8.4-10.2) mg/dL Total Protein (6.3-8.2) g/dL Albumin (3.5-5.0) g/dL Microbiology - Last 24 Hours (Table) 10/20/20 17:45 Blood Culture - Preliminary Blood No Growth after 96 hours 10/20/20 18:00 Blood Culture - Preliminary Blood No Growth after 96 hours Assessment and Plan Assessment: 1. Bilateral pulmonary embolism 2. 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 Hypertension Plan: Labs reviewed, hemoglobin stable. Patient is tolerating anticoagulation well with no active bleeding. Prescription sent to pharmacy to check for coverage of Eliquis Patient to be transition from heparin to Eliquis in the next 24-48 hours, following cardioversion. The impression and plan of care has been dictated as directed. I performed a history and examination of this patient, discussed the same with the dictator. I agree with the dictator's note ,documented as a scribe. Any additional findings or plans will be noted.
[2020-10-25] MEDS ORDERED: PROPOFOL 10 MG/ML 20 ML VIAL IV ONE (09:55)
[2020-10-25] MEDS ORDERED: LIDOCAINE 1% INJ 10MG/ML (20 ML MDV) ONE (09:55)
[2020-10-25] MEDS: SODIUM CHLORIDE 0.9% 1,000 ML IV SCH (10:20)
--- NOTE | 2020-10-25 10:21 | P.PN ---
Subjective HISTORY OF PRESENTING ILLNESS This is a pleasant 85-year-old male past medical history significant for hyperlipidemia, prior stroke, hypertension, who presented secondary to abdominal pain, no bowel movement for 3 weeks and constipation. He had a CAT scan performed which showed incidental PE as well. CAT scan abdomen and pelvis showed concern of perforated bowel and patient was taken to the OR with Kumar's procedure performed. Patient had been doing fairly well up until yesterday when he had atrial fibrillation with RVR with heart rates in the 160s. Patient was placed on a Cardizem drip as well as amiodarone drip with improvement in the heart rate to 100s to 1:15. He denies any chest pain or pressure. He remains on antibiotics for his sepsis and perforated bowel. With A. fib he was somewhat hypotensive and therefore placed on norepinephrine as well. He remains grossly edematous and additional dose of Lasix was ordered for today. He does have significant right upper extremity and scrotal edema. 10/25/2020 Patient seen and examined. Patient was transitioned from IV amiodarone to by mouth amiodarone yesterday however heart rates have been elevated at 130s to 140s. Patient with continued need for vasopressors. Patient denies any chest pain or pressure. He is still grossly edematous. He has been receiving IV Lasix REVIEW OF SYSTEMS At the time of my exam: CONSTITUTIONAL: Denies fever or chills. CARDIOVASCULAR: Denies chest pain, shortness of breath, orthopnea, PND or palpitations. RESPIRATORY: Denies cough. GASTROINTESTINAL: Denies abdominal pain, diarrhea, constipation, nausea or vomiting. MUSCULOSKELETAL: Denies myalgias. NEUROLOGIC: Denies numbness, tingling or weakness. ENDOCRINE: Denies fatigue, weight change, polydipsia or polyurina. GENITOURINARY: Denies burning, hematuria or urgency with micturation. HEMATOLOGIC: Denies history of anemia or bleeding. PHYSICAL EXAMINATION Blood pressure 118/80 heart rate 126 afebrile and maintaining oxygen saturation on 2L NC. CONSTITUTIONAL: No apparent distress. HEENT: Head is normocephalic. Pupils are equal, round. Sclerae anicteric. Mucous membranes of the mouth are moist. No JVD. No carotid bruit. CHEST EXAMINATION: Lungs are clear to auscultation. No chest wall tenderness is noted on palpation or with deep breathing. HEART EXAMINATION: Irregularly irregular rate and rhythm. S1, S2 heard. No murmurs, gallops or rub. ABDOMEN: Soft, nontender. Positive bowel sounds. EXTREMITIES: 2+ peripheral pulses, no lower extremity edema and no calf tend erness. NEUROLOGIC EXAMINATION: Patient is awake, alert and oriented x3. ASSESSMENT 1. Paroxysmal atrial fibrillation, currently mildly RVR 2. Postop day #4 status post Kumar's procedure for perforated sigmoid colon 3. History of hypertension, currently mildly hypotensive 4. Hypotension likely mainly related to sepsis however may be small additional component of A. fib with RVR 5. History of CVA 6. Mild dementia 7. Bilateral pulmonary emboli 8. Bilateral lower extremity DVT 9. Mildly decreased ejection fraction 45-50% with findings concerning for grade 3 diastolic dysfunction. PLAN Patient remains uncontrolled with heart rates in the 130s to 140s despite amiodarone and Cardizem drip with by mouth metoprolol with hypotension requiring vasopressors.may be a component of sepsis however A. fib likely not helping matters. We will perform cardioversion. No SEKOU given recent abdominal surgery, unstable blood pressure and what appears to be new onset atrial fibrillation. Continue IV Heparin. Continue supportive care. Objective - Vital Signs Vital signs: Vital Signs Temp 97.6 F 10/25/20 08:00 Pulse 130 H 10/25/20 09:30 Resp 18 10/25/20 09:30 BP 104/94 10/25/20 09:30 Pulse Ox 96 10/25/20 09:30 Intake & Output 10/24/20 10/25/20 10/25/20 18:59 06:59 18:59 Intake Total 1785.114 884.066 362.762 Output Total 3150 605 30 Balance -1364.886 279.066 332.762 Weight 80.8 kg Intake: IV 1080 480 40 D5-0.45% NaCl with KCl 480 480 40 20Meq/l 1,000 ml @ 40 mls /hr IV .Q24H [facility] Rx#: [id number] Magnesium Sulfate-D5w Pmx 100 1 gm In Dextrose/Water 1 100ml.bag @ 100 mls/hr IVPB Q1H [facility] Rx#: [id number] Piperacillin-Tazobactam 3 200 .375 gm In Sodium Chloride 0.9% 100 ml @ 25 mls/hr IVPB Q8HR [facility] Rx# :[id number] Potassium Chloride 10 meq 100 In Water For Injection 1 100ml.bag @ 100 mls/hr IVPB Q1H [facility] Rx#: [id number] metroNIDAZOLE-NS PMX 500 200 mg In Saline 1 100ml.bag @ 100 mls/hr IVPB Q8H [facility] Rx#:[id number] Intake, IV Titration 555.114 304.066 322.762 Amount Amiodarone 450 mg In 250 Dextrose 5% in Water 250 ml @ 0.5 MG/MIN 16.667 mls/hr IV .Q15H [facility] Rx#: [id number] Diltiazem 125 mg In 125 110.667 118.667 Sodium Chloride 0.9% 100 ml @ 10 MG/HR 10 mls/hr IV .[id number] [facility] Rx#: [id number] Heparin Sod,Pork in 0.45% 125.072 204.095 NaCl 25,000 unit In 0.45 % NaCl 1 250ml.bag @ 12 UNITS/KG/HR 8.772 mls/hr IV .Q24H [facility] Rx#: [id number] Norepinephrine 4 mg In 55.042 193.399 Sodium Chloride 0.9% 250 ml @ 0.05 MCG/KG/MIN 15. 011 mls/hr IV .[id number] [facility] Rx#:[id number] Oral 150 100 Output: Drainage 10 Right Abdomen 10 Urine 3150 595 30 Other: Voiding Method Indwelling Catheter Indwelling Catheter - Labs CBC & Chem 7: 10/25/20 03:30 10/25/20 03:30 Labs: Abnormal Lab Results - Last 24 Hours (Table) 10/24/20 10/25/20 10/25/20 Range/Units 12:28 03:30 03:30 WBC (3.8-10.6) k/uL RBC (4.30-5.90) m/uL Hgb (13.0-17.5) gm/dL Hct (39.0-53.0) % Neutrophils # (1.3-7.7) k/uL Lymphocytes # (1.0-4.8) k/uL APTT 44.5 H 73.6 H (22.0-30.0) sec Sodium 132 L (137-145) mmol/L Carbon Dioxide 21 L (22-30) mmol/L Glucose 115 H (74-99) mg/dL Calcium 7.8 L (8.4-10.2) mg/dL Total Protein 4.6 L (6.3-8.2) g/dL Albumin 2.1 L (3.5-5.0) g/dL 10/25/20 10/25/20 Range/Units 03:30 07:45 WBC 13.2 H (3.8-10.6) k/uL RBC 4.05 L (4.30-5.90) m/uL Hgb 11.9 L (13.0-17.5) gm/dL Hct 36.9 L (39.0-53.0) % Neutrophils # 11.5 H (1.3-7.7) k/uL Lymphocytes # 0.9 L (1.0-4.8) k/uL APTT 81.9 H (22.0-30.0) sec Sodium (137-145) mmol/L Carbon Dioxide (22-30) mmol/L Glucose (74-99) mg/dL Calcium (8.4-10.2) mg/dL Total Protein (6.3-8.2) g/dL Albumin (3.5-5.0) g/dL Microbiology - Last 24 Hours (Table) 10/20/20 17:45 Blood Culture - Preliminary Blood No Growth after 96 hours 10/20/20 18:00 Blood Culture - Preliminary Blood No Growth after 96 hours
--- NOTE | 2020-10-25 10:23 | P.PCN ---
Description of Procedure: Procedure performed: Synchronized cardioversion Indication: Uncontrolled A. fib, hypotension Procedure details: Patient was anesthetized by anesthesiology, see anesthesia note for full details. Synchronized cardioversion was performed with 200 J resulting in sinus rhythm. Patient tolerated procedure well. Continue with IV heparin.
[2020-10-25] MEDS: METOPROLOL TARTRATE 25 MG TAB PO SCH ×2 (10:45→21:25)
[2020-10-25] MEDS: AMIODARONE 200 MG TAB PO SCH (10:45)
[2020-10-25] MEDS: MEMANTINE 10 MG TAB PO SCH ×2 (10:45→21:25)
[2020-10-25] MEDS: polyethylene glycoL 3350 17 GM POWD.PACK PO SCH (10:45)
--- NOTE | 2020-10-25 11:43 | P.PN ---
<Mere Dalton - Last Filed: 10/25/20 11:36> Subjective Progress Note Date: 10/25/20 CHIEF COMPLAINT: Pneumoperitoneum HISTORY OF PRESENT ILLNESS: Patient is currently in the ICU. He is status post sigmoid colectomy with end colostomy and manual fecal disimpaction for perforated sigmoid colon and fecal impaction on 10/20/20. Patient had cardioversion this morning for his uncontrolled atrial fibrillation and has con verted to normal sinus rhythm. Patient has had gas present in his colostomy bag. No further stool through the ostomy. He denies any abdominal pain. Denies any nausea or vomiting. He was nothing by mouth for the cardioversion. He remains on IV heparin for anticoagulation. Afebrile. WBC elevated at 13.2 PHYSICAL EXAM: VITAL SIGNS: Reviewed. GENERAL: Well-developed in no acute distress. HEENT: No sclera icterus. Extraocular movements grossly intact. Moist buccal mucosa. Head is atraumatic, normocephalic. ABDOMEN: Soft. Nondistended. Incision dressing small amount of blood at the distal aspect of the dressing. Stoma is pink. There is sanguinous colored drainage in his ostomy bag and a small smear of stool. DONOVAN drain minimal serosanguineous fluid NEUROLOGIC: Alert and oriented. Cranial nerves II through XII grossly intact. ASSESSMENT: 1. Perforated sigmoid colon and fecal impaction status post sigmoid colectomy with end colostomy and manual fecal disimpaction, postop day #5 2. 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 Signing provider agrees with the documented findings, assessment, and plan of care. Objective - Vital Signs Vital signs: Vital Signs Temp 97.6 F 10/25/20 08:00 Pulse 59 L 10/25/20 11:00 Resp 19 10/25/20 11:00 BP 102/57 10/25/20 11:00 Pulse Ox 95 10/25/20 11:00 Intake & Output 10/24/20 10/25/20 10/25/20 18:59 06:59 18:59 Intake Total 1785.114 225.501 0346.762 Output Total 3150 605 730 Balance -1364.886 279.066 312.762 Weight 80.8 kg 80.8 kg Intake: IV 1080 480 600 D5-0.45% NaCl with KCl 480 480 200 20Meq/l 1,000 ml @ 40 mls /hr IV .Q24H [facility] Rx#: [id number] Magnesium Sulfate-D5w Pmx 100 1 gm In Dextrose/Water 1 100ml.bag @ 100 mls/hr IVPB Q1H [facility] Rx#: [id number] Piperacillin-Tazobactam 3 200 100 .375 gm In Sodium Chloride 0.9% 100 ml @ 25 mls/hr IVPB Q8HR [facility] Rx# :[id number] Potassium Chloride 10 meq 100 200 In Water For Injection 1 100ml.bag @ 100 mls/hr IVPB Q1H [facility] Rx#: [id number] metroNIDAZOLE-NS PMX 500 200 100 mg In Saline 1 100ml.bag @ 100 mls/hr IVPB Q8H [facility] Rx#:[id number] Intake, IV Titration 555.114 304.066 322.762 Amount Amiodarone 450 mg In 250 Dextrose 5% in Water 250 ml @ 0.5 MG/MIN 16.667 mls/hr IV .Q15H [facility] Rx#: [id number] Diltiazem 125 mg In 125 110.667 118.667 Sodium Chloride 0.9% 100 ml @ 10 MG/HR 10 mls/hr IV .[id number] [facility] Rx#: [id number] Heparin Sod,Pork in 0.45% 125.072 204.095 NaCl 25,000 unit In 0.45 % NaCl 1 250ml.bag @ 12 UNITS/KG/HR 8.772 mls/hr IV .Q24H [facility] Rx#: [id number] Norepinephrine 4 mg In 55.042 193.399 Sodium Chloride 0.9% 250 ml @ 0.05 MCG/KG/MIN 15. 011 mls/hr IV .[id number] [facility] Rx#:[id number] Oral 150 100 120 Output: Drainage 10 Right Abdomen 10 Urine 3150 595 730 Other: Voiding Method Indwelling Catheter Indwelling Catheter - Labs CBC & Chem 7: 10/25/20 03:30 10/25/20 03:30 Labs: Abnormal Lab Results - Last 24 Hours (Table) 10/24/20 10/25/20 10/25/20 Range/Units 12:28 03:30 03:30 WBC (3.8-10.6) k/uL RBC (4.30-5.90) m/uL Hgb (13.0-17.5) gm/dL Hct (39.0-53.0) % Neutrophils # (1.3-7.7) k/uL Lymphocytes # (1.0-4.8) k/uL APTT 44.5 H 73.6 H (22.0-30.0) sec Sodium 132 L (137-145) mmol/L Carbon Dioxide 21 L (22-30) mmol/L Glucose 115 H (74-99) mg/dL Calcium 7.8 L (8.4-10.2) mg/dL Total Protein 4.6 L (6.3-8.2) g/dL Albumin 2.1 L (3.5-5.0) g/dL 10/25/20 10/25/20 Range/Units 03:30 07:45 WBC 13.2 H (3.8-10.6) k/uL RBC 4.05 L (4.30-5.90) m/uL Hgb 11.9 L (13.0-17.5) gm/dL Hct 36.9 L (39.0-53.0) % Neutrophils # 11.5 H (1.3-7.7) k/uL Lymphocytes # 0.9 L (1.0-4.8) k/uL APTT 81.9 H (22.0-30.0) sec Sodium (137-145) mmol/L Carbon Dioxide (22-30) mmol/L Glucose (74-99) mg/dL Calcium (8.4-10.2) mg/dL Total Protein (6.3-8.2) g/dL Albumin (3.5-5.0) g/dL Microbiology - Last 24 Hours (Table) 10/20/20 17:45 Blood Culture - Preliminary Blood No Growth after 96 hours 10/20/20 18:00 Blood Culture - Preliminary Blood No Growth after 96 hours <Eleuterio Dean - Last Filed: 10/25/20 14:57> Subjective As above. Patient somewhat nauseated today. Abdominal bloating seems improved. He does have flatus in his colostomy bag. No significant stools yet. Continue clear liquids for now. Will follow. Objective - Vital Signs Vital signs: Vital Signs Temp 97.9 F 10/25/20 12:00 Pulse 58 L 10/25/20 14:15 Resp 16 10/25/20 14:15 BP 93/51 10/25/20 14:15 Pulse Ox 94 L 10/25/20 14:15 Intake & Output 10/24/20 10/25/20 10/25/20 18:59 06:59 18:59 Intake Total 1785.114 917.337 8753.762 Output Total 3150 605 1430 Balance -1364.886 279.066 -267.238 Weight 80.8 kg 80.8 kg Intake: IV 1080 480 720 D5-0.45% NaCl with KCl 480 480 320 20Meq/l 1,000 ml @ 40 mls /hr IV .Q24H [facility] Rx#: [id number] Magnesium Sulfate-D5w Pmx 100 1 gm In Dextrose/Water 1 100ml.bag @ 100 mls/hr IVPB Q1H [facility] Rx#: [id number] Piperacillin-Tazobactam 3 200 100 .375 gm In Sodium Chloride 0.9% 100 ml @ 25 mls/hr IVPB Q8HR [facility] Rx# :[id number] Potassium Chloride 10 meq 100 200 In Water For Injection 1 100ml.bag @ 100 mls/hr IVPB Q1H [facility] Rx#: [id number] metroNIDAZOLE-NS PMX 500 200 100 mg In Saline 1 100ml.bag @ 100 mls/hr IVPB Q8H [facility] Rx#:[id number] Intake, IV Titration 555.114 304.066 322.762 Amount Amiodarone 450 mg In 250 Dextrose 5% in Water 250 ml @ 0.5 MG/MIN 16.667 mls/hr IV .Q15H [facility] Rx#: [id number] Diltiazem 125 mg In 125 110.667 118.667 Sodium Chloride 0.9% 100 ml @ 10 MG/HR 10 mls/hr IV .[id number] [facility] Rx#: [id number] Heparin Sod,Pork in 0.45% 125.072 204.095 NaCl 25,000 unit In 0.45 % NaCl 1 250ml.bag @ 12 UNITS/KG/HR 8.772 mls/hr IV .Q24H [facility] Rx#: [id number] Norepinephrine 4 mg In 55.042 193.399 Sodium Chloride 0.9% 250 ml @ 0.05 MCG/KG/MIN 15. 011 mls/hr IV .[id number] [facility] Rx#:[id number] Oral 150 100 120 Output: Drainage 10 Right Abdomen 10 Urine 3150 595 1430 Other: Voiding Method Indwelling Catheter Indwelling Catheter - Labs CBC & Chem 7: 10/25/20 03:30 10/25/20 03:30 Labs: Abnormal Lab Results - Last 24 Hours (Table) 10/25/20 10/25/20 10/25/20 Range/Units 03:30 03:30 03:30 WBC 13.2 H (3.8-10.6) k/uL RBC 4.05 L (4.30-5.90) m/uL Hgb 11.9 L (13.0-17.5) gm/dL Hct 36.9 L (39.0-53.0) % Neutrophils # 11.5 H (1.3-7.7) k/uL Lymphocytes # 0.9 L (1.0-4.8) k/uL APTT 73.6 H (22.0-30.0) sec Sodium 132 L (137-145) mmol/L Carbon Dioxide 21 L (22-30) mmol/L Glucose 115 H (74-99) mg/dL Calcium 7.8 L (8.4-10.2) mg/dL Total Protein 4.6 L (6.3-8.2) g/dL Albumin 2.1 L (3.5-5.0) g/dL 10/25/20 Range/Units 07:45 WBC (3.8-10.6) k/uL RBC (4.30-5.90) m/uL Hgb (13.0-17.5) gm/dL Hct (39.0-53.0) % Neutrophils # (1.3-7.7) k/uL Lymphocytes # (1.0-4.8) k/uL APTT 81.9 H (22.0-30.0) sec Sodium (137-145) mmol/L Carbon Dioxide (22-30) mmol/L Glucose (74-99) mg/dL Calcium (8.4-10.2) mg/dL Total Protein (6.3-8.2) g/dL Albumin (3.5-5.0) g/dL Microbiology - Last 24 Hours (Table) 10/20/20 17:45 Blood Culture - Preliminary Blood No Growth after 96 hours 10/20/20 18:00 Blood Culture - Preliminary Blood No Growth after 96 hours Assessment and Plan (1) Bowel perforation Current Visit: Yes Status: Acute Code(s): K63.1 - PERFORATION OF INTESTINE (NONTRAUMATIC) SNOMED Code(s): 42395172
[2020-10-25] MEDS ORDERED: AMIODARONE 450 MG in DEXTROSE 5% IN WATER 250 ML IV SCH ×2 (14:25)
[2020-10-25] MEDS: TAMSULOSIN 0.4 MG CAP.ER.24H PO SCH (21:25)
--- NOTE | 2020-10-25 23:05 | PN ---
PROGRESS NOTE DATE OF SERVICE: 10/25/2020 REASON FOR FOLLOWUP: Secondary peritonitis from perforated sigmoid colon. INTERVAL HISTORY: The patient is currently afebrile. The patient is breathing comfortably. Denies having any chest pain. Occasional cough. Abdominal pain is currently controlled. No nausea or vomiting. PHYSICAL EXAMINATION: Blood pressure 117/60 with a pulse of 74, temperature 98. He is 93% on room air. General description is an elderly male lying in bed in no distress. RESPIRATORY SYSTEM: Unlabored breathing. Clear to auscultation anteriorly. HEART: S1, S2. Regular rate and rhythm. ABDOMEN: Soft. No tenderness. LABS: Hemoglobin is 11.9, white count 13.2, BUN of 13, creatinine 0.89. DIAGNOSTIC IMPRESSION AND PLAN: Patient with abdominal sepsis. Source is perforated sigmoid colon, status post diverting colostomy. Culture with multiple pathogens, including Enterococcus and anaerobes. Patient is covered with Zosyn; to continue while monitoring his clinical course closely. MMODL / IJN: [id number] /
--- NOTE | 2020-10-26 01:09 | P.PN ---
Subjective This is a pleasant 85 years old male with past medical history of CVA/TIA, hypertension, residual right hemiparesis. He was admitted with abdominal pain and CAT scan of the abdomen showing free air and free fluid. He underwent exploratory laparotomy with sigmoid colectomy and colostomy and manual disimpaction Also on CT of the abdomen there was suspicion of PE which was shown on CT of the chest to have bilateral PE and bilateral lower extremity DVT on ultrasound of the lower extremities. Patient currently is on heparin drip. Echocardiogram: Showed ejection fraction of 45-50% with slight apical hypokinesia. Vascular surgery with Dr. Kang were consulted and they recommended to continue with heparin drip and this patient bleeds then IVC filter would be indicated per their recommendation. Patient is currently covered with Zosyn and ID team on the case 10/22/20 Patient is in the ICU, closely monitored for his perforated viscus where his been treated for secondary peritonitis and bilateral DVT and PE He is lying in bed generally weak still complaining from pain on the right lower abdomen and surgical site. Histo on heparin drip and D5 half-normal saline at 75 mL/h. Also on Zosyn and Flagyl He is on clear liquid diet eating about 50-75% of his meals CBC and BMP are stable Blood culture is growing group D enterococcus 10/23/2020 Patient in the ICU monitored closely. He had an eventful one last night. He feels flat his abdominal pain is slightly better compared to yesterday. He still on anticoagulation for bilateral DVT and PE with no new complaint. He is still covered with broad-spectrum antibiotics with Zosyn and Flagyl for his peritonitis He was about to be documented when he developed A. fib and RVR, cartilage team were consulted and they started him on Cardizem drip and metoprolol 25 mg twice a day. 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 To consider for Advance diet and still tachycardic 150-1:30 Cardiology switched to amiodarone [place] 400 mg twice a day. Also on Cardizem drip. Cardiology team are considering cardioversion Patient continue on heparin drip as well. His currently on Zosyn and Flagyl for his secondary peritonitis and perforated viscus.. Continue with current respiratory 10/25/2020 Patient remains in the ICU. Colostomy bag is empty morning. We'll determine some serosanguineous fluid. No abdominal pain. However patient only eats half of his meal Patient was still tachycardic this morning around 120-1:30, corporate driver adjusted his medication with amiodarone 400 mg Cardizem and anticoagulation He is on Zosyn and Flagyl Review of systems CONSTITUTIONAL: No fever, no malaise, no fatigue. HEENT: No recent visual problems or hearing problems. Denied any sore throat. CARDIOVASCULAR: No orthopnea, PND, no palpitations, no syncope. PULMONARY: No chest wall tenderness, no hemoptysis. GASTROINTESTINAL: No diarrhea, no nausea, no vomiting, no abdominal pain. Normoactive bowel sounds. NEUROLOGICAL: No headaches, no weakness, no numbness. HEMATOLOGICAL: Denies any bleeding or petechiae. Active Medications Generic Name Dose Route Start Last Admin Trade Name Freq PRN Reason Stop Dose Admin Heparin Sodium (Porcine) 0 unit 10/21/20 12:23 Heparin Sodium,Porcine 5,000 Unit/Ml 1 Ml Vial IV PER PROTOCOL PRN Low PTT Protocol Hydromorphone HCl 1 mg 10/20/20 21:07 10/23/20 03:51 Hydromorphone 1 Mg/Ml 1 Ml Syringe IVP 1 mg Q3HR PRN Administration Moderate to Severe Pain Potassium Chloride/Dextrose/Sod Cl 1,000 mls @ 40 mls/hr 10/20/20 21:15 09:24 D5%-1/2ns-Kcl 20 Meq/L Iv Solution IV Not Given .Q24H [facility] Metronidazole 500 mg/ IV 100 mls @ 100 mls/hr 10/21/20 02:00 10/23/20 09:42 Solution IVPB 100 mls/hr Q8H [facility] Administration Piperacillin Sod/Tazobactam 100 mls @ 25 mls/hr 10/21/20 16:00 10/23/20 09:43 Sod 3.375 gm/ Sodium Chloride IVPB 25 mls/hr Q8HR [facility] Administration Heparin Sodium/Sodium Chloride 250 mls @ 8.772 mls/hr 10/21/20 12:30 10/23/20 05:23 25,000 unit/ Sodium Chloride IV 14 units/kg/hr .Q24H [facility] 10.234 mls/hr Titration Protocol 12 UNITS/KG/HR Diltiazem HCl 125 mg/ Sodium 125 mls @ 10 mls/hr 10/23/20 12:00 10/23/20 12:03 Chloride IV 10 mg/hr .[id number] [facility] 10 mls/hr Administration 10 MG/HR Memantine 10 mg 10/23/20 21:00 Memantine 10 Mg Tab PO BID [facility] Metoprolol Tartrate 25 mg 10/23/20 12:00 10/23/20 11:56 Metoprolol Tartrate 25 Mg Tab PO 25 mg BID [facility] Administration Naloxone HCl 0.2 mg 10/20/20 17:45 Naloxone 0.4 Mg/Ml 1 Ml Vial IV Q2M PRN Opioid Reversal Ondansetron HCl 4 mg 10/20/20 21:07 Ondansetron 4 Mg/2 Ml Vial IVP Q8HR PRN Nausea And Vomiting Pantoprazole Sodium 40 mg 10/21/20 09:00 10/23/20 09:43 Pantoprazole 40 Mg/10 Ml Vial IV 40 mg DAILY [facility] Administration Polyethylene Glycol 17 gm 10/24/20 09:00 Polyethylene Glycol 3350 17 Gm Powd.Pack PO DAILY [facility] Tamsulosin HCl 0.4 mg 10/23/20 21:00 Tamsulosin 0.4 Mg Cap.Er.24h PO [facility] Objective - Vital Signs Vital signs: Vital Signs Temp 98.0 F 10/25/20 20:30 Pulse 74 10/25/20 22:00 Resp 15 10/25/20 22:00 BP 117/60 10/25/20 22:00 Pulse Ox 93 L 10/25/20 22:00 Intake & Output 10/25/20 10/25/20 10/26/20 06:59 18:59 06:59 Intake Total 937.224 4134.595 160 Output Total 605 1705 215 Balance 279.066 -68.405 -55 Weight 80.8 kg 80.8 kg Intake: IV 480 1080 160 D5-0.45% NaCl with KCl 480 480 160 20Meq/l 1,000 ml @ 40 mls /hr IV .Q24H [facility] Rx#: [id number] Piperacillin-Tazobactam 3 200 .375 gm In Sodium Chloride 0.9% 100 ml @ 25 mls/hr IVPB Q8HR [facility] Rx# :[id number] Potassium Chloride 10 meq 200 In Water For Injection 1 100ml.bag @ 100 mls/hr IVPB Q1H [facility] Rx#: [id number] metroNIDAZOLE-NS PMX 500 200 mg In Saline 1 100ml.bag @ 100 mls/hr IVPB Q8H [facility] Rx#:[id number] Intake, IV Titration 304.066 436.595 Amount Diltiazem 125 mg In 110.667 118.667 Sodium Chloride 0.9% 100 ml @ 10 MG/HR 10 mls/hr IV .[id number] [facility] Rx#: [id number] Heparin Sod,Pork in 0.45% 204.095 NaCl 25,000 unit In 0.45 % NaCl 1 250ml.bag @ 12 UNITS/KG/HR 8.772 mls/hr IV .Q24H [facility] Rx#: [id number] Norepinephrine 4 mg In 193.399 113.833 Sodium Chloride 0.9% 250 ml @ 0.05 MCG/KG/MIN 15. 011 mls/hr IV .[id number] [facility] Rx#:[id number] Oral 100 120 Output: Drainage 10 Right Abdomen 10 Urine 595 1705 215 Other: Voiding Method Indwelling Catheter Indwelling Catheter Indwelling Catheter - Exam GENERAL: The patient is alert and oriented x3, not in any acute distress. Well developed, well nourished. HEENT: Pupils are round and equally reacting to light. EOMI. No scleral icterus. No conjunctival pallor. Normocephalic, atraumatic. No pharyngeal erythema. No thyromegaly. CARDIOVASCULAR: S1 and S2 present. No murmurs, rubs, or gallops. PULMONARY: Chest is clear to auscultation, no wheezing or crackles. -ABDOMEN: Soft, nontender, nondistended, normoactive bowel sounds. No palpable organomegaly. Surgical wound is closed and healing with a dressing MUSCULOSKELETAL: No joint swelling or deformity. EXTREMITIES: No cyanosis, clubbing, or pedal edema. NEUROLOGICAL: Gross neurological examination did not reveal any focal deficits. SKIN: No rashes. no petechiae. - Labs CBC & Chem 7: 10/25/20 03:30 10/25/20 03:30 Labs: Abnormal Lab Results - Last 24 Hours (Table) 10/25/20 10/25/20 10/25/20 Range/Units 03:30 03:30 03:30 WBC 13.2 H (3.8-10.6) k/uL RBC 4.05 L (4.30-5.90) m/uL Hgb 11.9 L (13.0-17.5) gm/dL Hct 36.9 L (39.0-53.0) % Neutrophils # 11.5 H (1.3-7.7) k/uL Lymphocytes # 0.9 L (1.0-4.8) k/uL APTT 73.6 H (22.0-30.0) sec Sodium 132 L (137-145) mmol/L Carbon Dioxide 21 L (22-30) mmol/L Glucose 115 H (74-99) mg/dL Calcium 7.8 L (8.4-10.2) mg/dL Total Protein 4.6 L (6.3-8.2) g/dL Albumin 2.1 L (3.5-5.0) g/dL 10/25/20 10/25/20 Range/Units 07:45 15:07 WBC (3.8-10.6) k/uL RBC (4.30-5.90) m/uL Hgb (13.0-17.5) gm/dL Hct (39.0-53.0) % Neutrophils # (1.3-7.7) k/uL Lymphocytes # (1.0-4.8) k/uL APTT 81.9 H 63.7 H (22.0-30.0) sec Sodium (137-145) mmol/L Carbon Dioxide (22-30) mmol/L Glucose (74-99) mg/dL Calcium (8.4-10.2) mg/dL Total Protein (6.3-8.2) g/dL Albumin (3.5-5.0) g/dL Microbiology - Last 24 Hours (Table) 10/20/20 17:45 Blood Culture - Preliminary Blood No Growth after 120 hours 10/20/20 18:00 Blood Culture - Preliminary Blood No Growth after 120 hours Assessment and Plan Assessment: -Bowel/sigmoid perforation status post exploratory laparotomy, sigmoid colectomy and colostomy with manual fecal disimpaction -Bilateral pulmonary emboli secondary to bilateral DVT. With no evidence of RV citrine on CT or echo -Mild hypoxic respiratory failure -Atrial fibrillation with RVR -Secondary peritonitis -History of CVA with right hemiparesis -Hypertension Plan: This is a pleasant 85 years old male who presents with bowel obstruction and perforation status post sigmoid colectomy and colostomy. Also has bilateral PE/DVT. Currently he is kept on heparin drip with close monitoring for signs of rebleeding with vascular surgery close monitoring the case to place IVC filter. Patient cannot tolerate anticoagulation consult cardiology for A. fib. Continue with metoprolol Patient also followed by corporate driver, infectious disease and surgery primary team He kept on broad-spectrum antibiotic in the form of Zosyn, gentle hydration Continue same treatment. Continue with symptomatic treatment. Resume home medication. Monitor lytes and vitals. DVT and GI prophylaxis. Further recommendationsas per clinical course of the patient DVT prophylaxis: heparin GI Prophylaxis: Pepcid Prognosis is guarded
[2020-10-26] MEDS: PIPERACILLIN-TAZOBACTAM 3.375 GM in SODIUM CHLORIDE 0.9% 100 ML IVPB SCH ×3 (01:24→16:28)
[2020-10-26 04:23] LABS: Basophils % (A) 0 %; Eosinophils # (A) 0.1 k/uL (0-0.7); Eosinophils % (A) 1 %; HCT 35.1 % (39.0-53.0); HGB 11.6 gm/dL (13.0-17.5); Lymphocytes % (A) 10 %; MCHC 33.2 g/dL (31.0-37.0); MCV 90.6 fL (80.0-100.0); Mean Platelet Volume 7.8; Monocytes # (A) 0.4 k/uL (0-1.0); Monocytes % (A) 4 %; Neutrophils % (A) 84 %; Platelet Count 223 k/uL (150-450); RBC 3.87 m/uL (4.30-5.90); RDW 13.2 % (11.5-15.5); WBC 9.6 k/uL (3.8-10.6)
[2020-10-26 04:37] LABS: Calcium 7.7 mg/dL (8.4-10.2); Potassium 3.7 mmol/L (3.5-5.1); Total Bilirubin 0.7 mg/dL (0.2-1.3); Total Protein 4.2 g/dL (6.3-8.2)
[2020-10-26] MEDS: AMIODARONE 200 MG TAB PO SCH ×3 (04:39→20:57)
[2020-10-26] MEDS: NOREPINEPHRINE 4 MG in SODIUM CHLORIDE 0.9% 250 ML IV SCH (04:39)
[2020-10-26] MEDS: metroNIDAZOLE-NS PMX 500 MG in SALINE 1 100ML.BAG IVPB SCH ×3 (04:41→17:41)
[2020-10-26] MEDS: HEPARIN SOD,PORK IN 0.45% NACL 25,000 UNIT in 0.45% NACL 1 250ML.BAG IV SCH (04:44)
[2020-10-26] MEDS: POTASSIUM CHLORIDE 10 MEQ in WATER FOR INJECTION 1 100ML.BAG IVPB SCH ×2 (06:21→08:26)
[2020-10-26] MEDS: PANTOPRAZOLE 40 MG/10 ML VIAL IV SCH (07:03)
--- NOTE | 2020-10-26 07:49 | P.PN ---
Subjective HISTORY OF PRESENTING ILLNESS This is a pleasant 85-year-old male past medical history significant for hyperlipidemia, prior stroke, hypertension, who presented secondary to abdominal pain, no bowel movement for 3 weeks and constipation. He had a CAT scan performed which showed incidental PE as well. CAT scan abdomen and pelvis showed concern of perforated bowel and patient was taken to the OR with Kumar's procedure performed. Patient had been doing fairly well up until yesterday when he had atrial fibrillation with RVR with heart rates in the 160s. Patient was placed on a Cardizem drip as well as amiodarone drip with improvement in the heart rate to 100s to 1:15. He denies any chest pain or pressure. He remains on antibiotics for his sepsis and perforated bowel. With A. fib he was somewhat hypotensive and therefore placed on norepinephrine as well. He remains grossly edematous and additional dose of Lasix was ordered for today. He does have significant right upper extremity and scrotal edema. 10/25/2020 Patient seen and examined. Patient was transitioned from IV amiodarone to by mouth amiodarone yesterday however heart rates have been elevated at 130s to 140s. Patient with continued need for vasopressors. Patient denies any chest pain or pressure. He is still grossly edematous. He has been receiving IV Lasix 3 Patient seen and examined. Cardioverted yesterday and in sinus rhythm today. Levophed was able to be weaned since cardioversion. No chest pain, pressure. No SOB. Remains weak. Grossly edematous however albumin 2.0. WBC down to 9.6. PHYSICAL EXAMINATION Blood pressure 105/69 heart rate 67 afebrile and maintaining oxygen saturation on 2L NC. CONSTITUTIONAL: No apparent distress. HEENT: Head is normocephalic. Pupils are equal, round. Sclerae anicteric. Mucous membranes of the mouth are moist. No JVD. No carotid bruit. CHEST EXAMINATION: Lungs are clear to auscultation. No chest wall tenderness is noted on palpation or with deep breathing. HEART EXAMINATION: regularly rate and rhythm. S1, S2 heard. No murmurs, gallops or rub. ABDOMEN: Soft, nontender. Positive bowel sounds. EXTREMITIES: 2+ peripheral pulses, no lower extremity edema and no calf tenderness. NEUROLOGIC EXAMINATION: Patient is awake, alert and oriented x3. ASSESSMENT 1. Paroxysmal atrial fibrillation, currently sinus rhythm 2. Status post Kumar's procedure for perforated sigmoid colon 3. History of hypertension 4. Hypotension improved since cardioversion 5. History of CVA 6. Mild dementia 7. Bilateral pulmonary emboli 8. Bilateral lower extremity DVT 9. Mildly decreased ejection fraction 45-50% with findings concerning for grade 3 diastolic dysfunction. PLAN Blood pressure has been better since cardioversion. Off of pressors. Patient still grossly edematous. Likely component of third spacing secondary to decreased albumin. We will attempt to increase Lasix to 40 mg IV twice a day and monitor response. Continue supportive care. Objective - Vital Signs Vital signs: Vital Signs Temp 98.2 F 10/26/20 04:00 Pulse 67 10/26/20 07:00 Resp 13 10/26/20 07:00 BP 105/69 10/26/20 07:00 Pulse Ox 93 L 10/26/20 07:00 Intake & Output 10/25/20 10/26/20 10/26/20 18:59 06:59 18:59 Intake Total 1682.500 640 40 Output Total 1705 705 30 Balance -22.500 -65 10 Weight 80.8 kg 78.6 kg Intake: IV 1080 640 40 D5-0.45% NaCl with KCl 480 440 40 20Meq/l 1,000 ml @ 40 mls /hr IV .Q24H [facility] Rx#: [id number] Piperacillin-Tazobactam 3 200 100 .375 gm In Sodium Chloride 0.9% 100 ml @ 25 mls/hr IVPB Q8HR [facility] Rx# :[id number] Potassium Chloride 10 meq 200 In Water For Injection 1 100ml.bag @ 100 mls/hr IVPB Q1H [facility] Rx#: [id number] metroNIDAZOLE-NS PMX 500 200 100 mg In Saline 1 100ml.bag @ 100 mls/hr IVPB Q8H [facility] Rx#:[id number] Intake, IV Titration 482.500 Amount Diltiazem 125 mg In 118.667 Sodium Chloride 0.9% 100 ml @ 10 MG/HR 10 mls/hr IV .[id number] [facility] Rx#: [id number] Heparin Sod,Pork in 0.45% 250.000 NaCl 25,000 unit In 0.45 % NaCl 1 250ml.bag @ 12 UNITS/KG/HR 8.772 mls/hr IV .Q24H [facility] Rx#: [id number] Norepinephrine 4 mg In 113.833 Sodium Chloride 0.9% 250 ml @ 0.05 MCG/KG/MIN 15. 011 mls/hr IV .[id number] [facility] Rx#:[id number] Oral 120 Output: Urine 1705 505 30 Stool 200 Other: Voiding Method Indwelling Catheter Indwelling Catheter - Labs CBC & Chem 7: 10/26/20 03:37 10/26/20 03:37 Labs: Abnormal Lab Results - Last 24 Hours (Table) 10/25/20 10/25/20 10/26/20 Range/Units 07:45 15:07 03:37 RBC 3.87 L (4.30-5.90) m/uL Hgb 11.6 L (13.0-17.5) gm/dL Hct 35.1 L (39.0-53.0) % Neutrophils # 8.0 H (1.3-7.7) k/uL APTT 81.9 H 63.7 H (22.0-30.0) sec Sodium (137-145) mmol/L Glucose (74-99) mg/dL Calcium (8.4-10.2) mg/dL Total Protein (6.3-8.2) g/dL Albumin (3.5-5.0) g/dL 10/26/20 10/26/20 Range/Units 03:37 03:37 RBC (4.30-5.90) m/uL Hgb (13.0-17.5) gm/dL Hct (39.0-53.0) % Neutrophils # (1.3-7.7) k/uL APTT 52.7 H (22.0-30.0) sec Sodium 134 L (137-145) mmol/L Glucose 104 H (74-99) mg/dL Calcium 7.7 L (8.4-10.2) mg/dL Total Protein 4.2 L (6.3-8.2) g/dL Albumin 2.0 L (3.5-5.0) g/dL Microbiology - Last 24 Hours (Table) 10/20/20 17:45 Blood Culture - Preliminary Blood No Growth after 120 hours 10/20/20 18:00 Blood Culture - Preliminary Blood No Growth after 120 hours
[2020-10-26] MEDS: MEMANTINE 10 MG TAB PO SCH ×2 (08:27→20:57)
[2020-10-26] MEDS: METOPROLOL TARTRATE 25 MG TAB PO SCH ×2 (08:27→20:57)
[2020-10-26] MEDS: polyethylene glycoL 3350 17 GM POWD.PACK PO SCH (08:28)
--- NOTE | 2020-10-26 08:53 | P.PN ---
Subjective Progress Note Date: 10/26/20 This is an 85-year-old male who presents to the emergency department, complaining of unable to urinate. The patient also has not had a bowel movement in 3 weeks. He apparently was recently admitted for constipation but then was discharged. The patient has a history of colitis. The patient apparently feels nauseated, and his abdomen is distended. He denies any vomiting. Denied any chest pain. He also denied any shortness of breath. He apparently was found have a perforated viscus, and underwent a Kumar's procedure by Dr. Dean. He is postop day #1. Dr. Dean called me yesterday and asked whether or not we could put the patient in the ICU overnight. He was concerned given the patient's age. In addition, in the process of evaluating the patient, the patient was found to have bilateral pulmonary emboli, moderate clot burden, right greater than left, and also bilateral lower extremity DVT. Because of the recent surgery, he cannot be heparinized. Apparently, the vascular surgeon was called, and at this point, no interventions are planned. The patient apparently has a history of CVA, hypertension, and chronic prostate disease. He is currently on lactulose, MiraLAX, multiple vitamins, Flomax, Namenda, and Zocor. He is resting comfortably in the ICU. He is on O2 at 2 L. He is getting dextrose, with half-normal saline, with 20 mEq of potassium at 125 mL an hour. I didn't passed onto the nurse, that may be vascular surgery would prefer to do a [place] filter. The patient is without distress. Progress note dated 10/22/2020. This is a 85-year-old male, who is postop day #2, status post Kumar's procedure, with sigmoid colectomy and end colostomy, for perforated sigmoid colon and fecal impaction. The patient was also discovered have bilateral DVTs, and bilateral pulmonary emboli, right greater than left, with moderate clot burden. The patient's currently on IV heparin, weight based protocol, D5.45, with 20 of potassium, 125 mL an hour, and O2 at 2 L. The patient has a history of CVA, BPH, dementia, hyperlipidemia, essential hypertension and chronic co nstipation. Surprisingly, the patient seemed be doing relatively well. I did ask vascular surgery whether or not a [place] filter would be appropriate given the fact that he was at high risk for anticoagulation given his age. Initially, the surgeon did not want to start blood thinners because of the recent surgery. Currently, from the clinical standpoint, he is doing well. White count 8.8, hemoglobin 11.3, hematocrit 35.5, and platelet count 209,000. PTT is 45.7. Sodium 133, potassium 4.4, chlorides 106, CO2 23, anion gap 4, BUN 26, and creatinine 0.79. Progress note dated 10/23/2020. 85-year-old male, who is postop day #3, status post Kumar's procedure, with sigmoid colectomy, and end colostomy, for perforated sigmoid colon and fecal impaction. In addition, at the time of his initial evaluation, he was found to have bilateral DVT, and also, bilateral pulmonary emboli, right greater than left, with moderate clot burden. Currently, the patient continues on 2 L nasal cannula. He is on heparin via weightbase protocol. He is also getting dextrose with half-normal saline with 20 mEq of potassium chloride, at 75 mL an hour, to be reduced down to 40 mL an hour. In addition, the patient received Lasix 40 mg IV push 1. The patient was also on saline at 75 mL an hour, but that IV was discontinued. His weight has jumped, and is receiving much more fluid than urine output. Also, unfortunately, we're all set to discharge the patient to the general medical floor without telemetry, where he developed atrial fibrillation with RVR, was started on a Cardizem drip, and given some beta jerry. Also, initially, the surgeon did not want the patient on blood thinners, but did change his mind, and currently the patient is on heparin. On 10/24/2020 the patient is being seen in follow-up in the intensive care unit. The patient is postop day #4. The patient underwent a sigmoid colectomy and end colostomy and the patient has a Kumar pouch. He presented to the hospital because of constipation and patient was found to have perforated sigmoid colon with fecal impaction. Abdominal wound cultures growing E. coli in addition to Enterococcus faecalis and fisherman the patient is on a combination of Zosyn and Flagyl. Over the past 24 hours, the patient went into atrial fibrillation with rapid ventricular response. His blood pressure also became somewhat hypote nsive. He was placed on a combination of norepinephrine for blood pressure support and is currently running at 0.09 mcg/kg per minute. The patient was also started on Cardizem drip initially at 10 mg an hour and currently is also on amiodarone drip at 0.5 mg per minute. Current heart rate is around 107 and is still irregular. Most recent blood pressure is 93/61. He is producing urine output. He is awake and alert and currently is on oxygen at 2 L per minute. He continues to have edema both in the upper and lower extremities more so on the right as the patient had a previous CVA on the right. Abdomen is nondistended. Bowel sounds are sluggish. Colostomy site is viable and the tissue looks healthy. Minimal amount of liquid collecting in the colostomy bag. Bowel sounds are hypoactive. Abdomen is nondistended.The white cell count is at 12.3 with a hemoglobin of 11.8. The patient remains on IV heparin as the patient has a new onset atrial fibrillation. The patient also has bilateral lower extremity DVT. His PTT is therapeutic for now. The patient is being given clear liquid diet. The patient is also using incentive spirometer. He is awake and alert and communicating. Discussed the case with cardiology and there is a constellation for cardioversion due to his ongoing atrial fibrillation with rapid ventricular response despite being on a Cardizem drip and amiodarone. His level is good ejection fraction has been within normal limits. He is on IV fluids at the rate of 50 mL an hour of D5 half-normal with potassium supplements. On 10/25/2020 I'm seeing the patient in follow-up in intensive care unit. The patient is postop day #5 following a sigmoid colectomy and end colostomy and Kumar's pouch. The patient is also infected. Abdominal cultures showed E. coli and Enterococcus faecalis and fascial and the patient remains on a combination of Zosyn and Flagyl. Note that anaerobic bacteria is also growing in the abdominal wounds. As such, this is a polymicrobial growth related to bowel perforation. The patient is currently extubated and he is hemodynamically stable. Nevertheless, the active issue for now is his atrial fibrillation with rapid ventricular response and his heart rate is in the 150 range, irregular despite being on a combination of Cardizem drip and amiodarone. The patient was switched to oral amiodarone and subsequently earlier this morning he was switched back to amiodarone drip at 1 mg an hour and he was given 150 mg bolus and the plan is to proceed with cardioversion because of his persistent atrial fibrillation. He remains on IV heparin for now. The patient is also on D5 half-normal saline with potassium supplements running at or cc an hour. Significant amount of fluid overload yesterday with extensive edema in all 4 extremities and the patient was given a dose of Lasix and the neck fluid balance over the past 24 hours has been -1 L. He is afebrile. He is on norepinephrine infusion which is running at 0.04 mcg/kg per minute.. The white cell count of 13.2 with hemoglobin 11.9. PTT is therapeutic at 73. The rest of the blood work and electrodes are all within normal limits. As for the ileus, the patient has some vague abdominal distention yesterday and the left arm of the abdomen showed a component of ileus. Overnight, he was not passing any gas and subsequently he had large amount of gas collecting in the colostomy bag and he seems to be somewhat deflated. Bowel sounds remain hypoactive at this point in time. The patient remains nothing by mouth. She is awake and alert and oriented. Following commands appropriately. He is postop day #5. Clinically, slightly more lethargic compared to yesterday, yet very much appropriate and responsive. 10/26/2020 the patient is comfortable awake and alert on room air oxygen. Is postop day #6 following a sigmoid colectomy and colostomy and Kumar's pouch. He has a Carranza microbial abdominal infection with anaerobes, E. coli and enterococcus and the patient is still on a combination of Zosyn and Flagyl. Meanwhile, he was having issues with atrial fibrillation with rapid ventricular response that was very difficult to control. The patient underwent cardioversion. He is currently off the Cardizem drip. He is off the pressors and the patient has been taken off the norepinephrine infusion. Currently is only on IV heparin infusion. His cardiac rhythm is sinus for now. He is off pressors. He is on Lasix 40 mg to 24 hours and the dose was increased up to twice a day by cardiology. While, his ileus has subsided and the patient is producing stool and the patient is taking some soft diet today. In terms of rate control, is on a Toprol 25 mg by mouth twice a day and amiodarone 400 mg by mouth twice a day. IV heparin is still on board for now. Surgical wound site is dry clean and intact. DONOVAN drain output from the right side is serous and minimal output at this point in time. Is awake and alert. No other significant issues for now. Fluid balance over the past 24 hours has been negative and the patient has been able to achieve a negative fluid balance and is improving in terms of his edema. Objective - Vital Signs Vital signs: Vital Signs Temp 98.1 F 10/26/20 08:00 Pulse 80 10/26/20 08:30 Resp 19 10/26/20 08:30 BP 114/59 10/26/20 08:30 Pulse Ox 93 L 10/26/20 08:00 Intake & Output 10/25/20 10/26/20 10/26/20 18:59 06:59 18:59 Intake Total 1682.500 640 380 Output Total 1705 705 70 Balance -22.500 -65 310 Weight 80.8 kg 78.6 kg Intake: IV 1080 640 380 D5-0.45% NaCl with KCl 480 440 80 20Meq/l 1,000 ml @ 40 mls /hr IV .Q24H [facility] Rx#: [id number] Piperacillin-Tazobactam 3 200 100 100 .375 gm In Sodium Chloride 0.9% 100 ml @ 25 mls/hr IVPB Q8HR [facility] Rx# :[id number] Potassium Chloride 10 meq 200 In Water For Injection 1 100ml.bag @ 100 mls/hr IVPB Q1H [facility] Rx#: [id number] Potassium Chloride 10 meq 100 In Water For Injection 1 100ml.bag @ 100 mls/hr IVPB Q1H [facility] Rx#: [id number] metroNIDAZOLE-NS PMX 500 200 100 100 mg In Saline 1 100ml.bag @ 100 mls/hr IVPB Q8H [facility] Rx#:[id number] Intake, IV Titration 482.500 Amount Diltiazem 125 mg In 118.667 Sodium Chloride 0.9% 100 ml @ 10 MG/HR 10 mls/hr IV .[id number] [facility] Rx#: [id number] Heparin Sod,Pork in 0.45% 250.000 NaCl 25,000 unit In 0.45 % NaCl 1 250ml.bag @ 12 UNITS/KG/HR 8.772 mls/hr IV .Q24H [facility] Rx#: [id number] Norepinephrine 4 mg In 113.833 Sodium Chloride 0.9% 250 ml @ 0.05 MCG/KG/MIN 15. 011 mls/hr IV .[id number] [facility] Rx#:[id number] Oral 120 Output: Urine 1705 505 70 Stool 200 Other: Voiding Method Indwelling Catheter Indwelling Catheter - Exam No acute distress, oriented 3. Patient is on room air oxygen HEENT examination is grossly unremarkable. Mucous membranes are moist. No oral lesions. Neck supple. Full range of motion. No adenopathy thyromegaly or neck vein distention. Cardiovascular examination reveals an irregular rhythm and rate. The patient c ontinues to be tachycardic with a heart rate ranging between 110-140 Murmurs could not be appreciated. Lungs reveal clear breath sounds. Her sounds are equal bilaterally. No adventitious lung sounds including wheezes rhonchi or crackles. Abdomen soft, without bowel sounds. Colostomy is noted. No abdominal distention. . Bowel sounds are hypoactive at the present. Abdomen is slightly distended and the top part and the surgical wound site is dry clean and intact. The patient has a DONOVAN drain in place and output is serosanguineous. Surgical wound site is dry clean and intact. Patient also has some scrotal edema. The patient has output and his colostomy bag in the colostomy seems to be quite functional at this point in time. Extremities are intact. No cyanosis clubbing and the patient has extensive edema bilaterally more so on the right side. Legs are also edematous. The pa tient also had a scrotal edema. Skin is without rash or lesion. Neurologic examination awake and alert and he has right-sided weakness and contractures which are essentially chronic. He is awake and alert and following commands and answering questions and is appropriate. - Labs CBC & Chem 7: 10/26/20 03:37 10/26/20 03:37 Labs: Abnormal Lab Results - Last 24 Hours (Table) 10/25/20 10/26/20 10/26/20 Range/Units 15:07 03:37 03:37 RBC 3.87 L (4.30-5.90) m/uL Hgb 11.6 L (13.0-17.5) gm/dL Hct 35.1 L (39.0-53.0) % Neutrophils # 8.0 H (1.3-7.7) k/uL APTT 63.7 H (22.0-30.0) sec Sodium 134 L (137-145) mmol/L Glucose 104 H (74-99) mg/dL Calcium 7.7 L (8.4-10.2) mg/dL Total Protein 4.2 L (6.3-8.2) g/dL Albumin 2.0 L (3.5-5.0) g/dL 10/26/20 Range/Units 03:37 RBC (4.30-5.90) m/uL Hgb (13.0-17.5) gm/dL Hct (39.0-53.0) % Neutrophils # (1.3-7.7) k/uL APTT 52.7 H (22.0-30.0) sec Sodium (137-145) mmol/L Glucose (74-99) mg/dL Calcium (8.4-10.2) mg/dL Total Protein (6.3-8.2) g/dL Albumin (3.5-5.0) g/dL Microbiology - Last 24 Hours (Table) 10/20/20 17:45 Blood Culture - Preliminary Blood No Growth after 120 hours 10/20/20 18:00 Blood Culture - Preliminary Blood No Growth after 120 hours Assessment and Plan Plan: 1 Postop day # 6, status post Kumar's procedure, with sigmoid colectomy and end colostomy, for perforated sigmoid colon and fecal impaction. The intra- abdominal cultures showed E. coli in addition to enterococcus fascia and faecalis and the patient remains on examination of Zosyn and Flagyl. The patient also has some anaerobes growing in the abdominal wound and antibiotic coverage remain the same. Currently off pressors. The patient is a broad- spectrum antibiotics. His colostomy site is functionally the patient is producing adequate amount of stool and the patient is on soft diet at this point in time. 2 Bilateral pulmonary emboli, right greater than left, with moderate clot burden, currently on IV heparin, PTT is therapeutic and the PICC line was placed and flushed with TPA yesterday for some difficulties with clogging 3 Bilateral lower extremity DVT, currently on IV heparin 4 New onset atrial fibrillation with rapid ventricular response, post successful cardioversion in his back to normal sinus rhythm. She is currently on metoprolol. He is currently off pressors. He remains on IV heparin. 5 History of CVA. 6 History of BPH. 7 History of dementia. 8 History of hyperlipidemia. 9 History of hypertension. 10 History of chronic constipation. 11 ileus improving with stool output and gas in the last and the back in the colostomy is functional and the patient is able to tolerate soft diet. Plan: The patient has successful cardioversion. Continue metoprolol. Discussed with cardiology anticoagulation issue and currently the patient IV heparin IV heparin per protocol and this will be continued Lasix has been increased to 40 mg every 12 hours and the pressors as been discontinued Continue Zosyn and Flagyl and monitor the abdominal cultures Using incentive spirometer Continue incentive spirometer and the patient is pulling approximately thousand Monitor mental status , he is appropriate for now The patient's overall prognosis remains guarded. We will continue to follow make recommendations were appropriate. Prognosis is certainly guarded.
--- NOTE | 2020-10-26 11:22 | P.PN ---
<Mere Dalton - Last Filed: 10/26/20 11:14> Subjective Progress Note Date: 10/26/20 CHIEF COMPLAINT: Pneumoperitoneum HISTORY OF PRESENT ILLNESS: Patient is currently in the ICU. He is status post sigmoid colectomy with end colostomy and manual fecal disimpaction for perforated sigmoid colon and fecal impaction on 10/20/20. Patient's ostomy is functioning. He has having stool and flatus through the ostomy, which started last night. He denies any nausea or vomiting. He is status post cardioversion yesterday and remains in normal sinus rhythm. He does have generalized edema with low albumin. Currently remains on IV heparin for anticoagulation. He is currently on a full liquid diet. Afebrile. WBC down from 13.2 to 9.6 albumin 2.0 PHYSICAL EXAM: VITAL SIGNS: Reviewed. GENERAL: Well-developed in no acute distress. HEENT: No sclera icterus. Extraocular movements grossly intact. Moist buccal mucosa. Head is atraumatic, normocephalic. ABDOMEN: Soft. Nondistended. Incision dressing small amount of blood at the distal aspect of the dressing. Stoma is pink. There is sanguinous colored drainage in his ostomy bag and a small smear of stool. DONOVAN drain minimal serosanguineous fluid NEUROLOGIC: Alert and oriented. Cranial nerves II through XII grossly intact. ASSESSMENT: 1. Perforated sigmoid colon and fecal impaction status post sigmoid colectomy with end colostomy and manual fecal disimpaction, postop day #6 2. Peritonitis 3. Severe protein calorie malnutrition PLAN: -Continue ICU management -Continue supportive care -Continue IV antibiotics per ID -Continue full liquid diet -Ensure 3 times a day added -Encourage incentive spirometer use Physician Net Finisher note has been reviewed by physician. Signing provider agrees with the documented findings, assessment, and plan of care. Objective - Vital Signs Vital signs: Vital Signs Temp 98.1 F 10/26/20 08:00 Pulse 81 10/26/20 09:00 Resp 19 10/26/20 09:00 BP 117/59 10/26/20 09:00 Pulse Ox 94 L 10/26/20 09:00 Intake & Output 10/25/20 10/26/20 10/26/20 18:59 06:59 18:59 Intake Total 1682.500 640 520 Output Total 1705 705 150 Balance -22.500 -65 370 Weight 80.8 kg 78.6 kg Intake: IV 1080 640 520 D5-0.45% NaCl with KCl 480 440 120 20Meq/l 1,000 ml @ 40 mls /hr IV .Q24H [facility] Rx#: [id number] Piperacillin-Tazobactam 3 200 100 200 .375 gm In Sodium Chloride 0.9% 100 ml @ 25 mls/hr IVPB Q8HR [facility] Rx# :[id number] Potassium Chloride 10 meq 200 In Water For Injection 1 100ml.bag @ 100 mls/hr IVPB Q1H [facility] Rx#: [id number] Potassium Chloride 10 meq 100 In Water For Injection 1 100ml.bag @ 100 mls/hr IVPB Q1H [facility] Rx#: [id number] metroNIDAZOLE-NS PMX 500 200 100 100 mg In Saline 1 100ml.bag @ 100 mls/hr IVPB Q8H [facility] Rx#:[id number] Intake, IV Titration 482.500 Amount Diltiazem 125 mg In 118.667 Sodium Chloride 0.9% 100 ml @ 10 MG/HR 10 mls/hr IV .[id number] [facility] Rx#: [id number] Heparin Sod,Pork in 0.45% 250.000 NaCl 25,000 unit In 0.45 % NaCl 1 250ml.bag @ 12 UNITS/KG/HR 8.772 mls/hr IV .Q24H [facility] Rx#: [id number] Norepinephrine 4 mg In 113.833 Sodium Chloride 0.9% 250 ml @ 0.05 MCG/KG/MIN 15. 011 mls/hr IV .[id number] [facility] Rx#:[id number] Oral 120 Output: Urine 1705 505 150 Stool 200 Other: Voiding Method Indwelling Catheter Indwelling Catheter Indwelling Catheter - Labs CBC & Chem 7: 10/26/20 03:37 10/26/20 03:37 Labs: Abnormal Lab Results - Last 24 Hours (Table) 10/25/20 10/26/20 10/26/20 Range/Units 15:07 03:37 03:37 RBC 3.87 L (4.30-5.90) m/uL Hgb 11.6 L (13.0-17.5) gm/dL Hct 35.1 L (39.0-53.0) % Neutrophils # 8.0 H (1.3-7.7) k/uL APTT 63.7 H (22.0-30.0) sec Sodium 134 L (137-145) mmol/L Glucose 104 H (74-99) mg/dL Calcium 7.7 L (8.4-10.2) mg/dL Total Protein 4.2 L (6.3-8.2) g/dL Albumin 2.0 L (3.5-5.0) g/dL 10/26/20 Range/Units 03:37 RBC (4.30-5.90) m/uL Hgb (13.0-17.5) gm/dL Hct (39.0-53.0) % Neutrophils # (1.3-7.7) k/uL APTT 52.7 H (22.0-30.0) sec Sodium (137-145) mmol/L Glucose (74-99) mg/dL Calcium (8.4-10.2) mg/dL Total Protein (6.3-8.2) g/dL Albumin (3.5-5.0) g/dL Microbiology - Last 24 Hours (Table) 10/20/20 17:45 Blood Culture - Preliminary Blood No Growth after 120 hours 10/20/20 18:00 Blood Culture - Preliminary Blood No Growth after 120 hours <Eleuterio Dean - Last Filed: 10/26/20 20:40> Subjective As above. Doing better. Better bowel function. Advance diet. Objective - Vital Signs Vital signs: Vital Signs Temp 98.2 F 10/26/20 20:00 Pulse 79 10/26/20 20:00 Resp 16 10/26/20 20:00 BP 116/59 10/26/20 20:00 Pulse Ox 94 L 10/26/20 20:00 Intake & Output 10/26/20 10/26/20 10/27/20 06:59 18:59 06:59 Intake Total 640 1080 80 Output Total 705 449 125 Balance -65 631 -45 Weight 78.6 kg Intake: IV 640 1080 80 D5-0.45% NaCl with KCl 440 480 80 20Meq/l 1,000 ml @ 40 mls /hr IV .Q24H [facility] Rx#: [id number] Piperacillin-Tazobactam 3 100 200 .375 gm In Sodium Chloride 0.9% 100 ml @ 25 mls/hr IVPB Q8HR [facility] Rx# :[id number] Potassium Chloride 10 meq 200 In Water For Injection 1 100ml.bag @ 100 mls/hr IVPB Q1H [facility] Rx#: [id number] metroNIDAZOLE-NS PMX 500 100 200 mg In Saline 1 100ml.bag @ 100 mls/hr IVPB Q8H [facility] Rx#:[id number] Output: Urine 505 389 125 Stool 200 60 Other: Voiding Method Indwelling Catheter Indwelling Catheter - Labs CBC & Chem 7: 10/26/20 03:37 10/26/20 03:37 Labs: Abnormal Lab Results - Last 24 Hours (Table) 10/26/20 10/26/20 10/26/20 Range/Units 03:37 03:37 03:37 RBC 3.87 L (4.30-5.90) m/uL Hgb 11.6 L (13.0-17.5) gm/dL Hct 35.1 L (39.0-53.0) % Neutrophils # 8.0 H (1.3-7.7) k/uL APTT 52.7 H (22.0-30.0) sec Sodium 134 L (137-145) mmol/L Glucose 104 H (74-99) mg/dL Calcium 7.7 L (8.4-10.2) mg/dL Total Protein 4.2 L (6.3-8.2) g/dL Albumin 2.0 L (3.5-5.0) g/dL Microbiology - Last 24 Hours (Table) 10/20/20 17:45 Blood Culture - Final Blood No Growth after 144 hours 10/20/20 18:00 Blood Culture - Final Blood No Growth after 144 hours Assessment and Plan (1) Bowel perforation Current Visit: Yes Status: Acute Code(s): K63.1 - PERFORATION OF INTESTINE (NONTRAUMATIC) SNOMED Code(s): 26919155
--- NOTE | 2020-10-26 11:22 | P.PN ---
Subjective Progress Note Date: 10/26/20 Principal diagnosis: bilateral pulmonary embolism, bilateral DVT Patient seen and examined in the ICU. He is without any acute changes through the night. He continues in A. fib with RVR. Underwent cardioversion yesterday. He remains on the IV heparin drip. He has no signs of any active bleeding. Objective - Vital Signs Vital signs: Vital Signs Temp 98.1 F 10/26/20 08:00 Pulse 80 10/26/20 08:30 Resp 19 10/26/20 08:30 BP 114/59 10/26/20 08:30 Pulse Ox 93 L 10/26/20 08:00 Intake & Output 10/25/20 10/26/20 10/26/20 18:59 06:59 18:59 Intake Total 1682.500 640 380 Output Total 1705 705 70 Balance -22.500 -65 310 Weight 80.8 kg 78.6 kg Intake: IV 1080 640 380 D5-0.45% NaCl with KCl 480 440 80 20Meq/l 1,000 ml @ 40 mls /hr IV .Q24H [facility] Rx#: [id number] Piperacillin-Tazobactam 3 200 100 100 .375 gm In Sodium Chloride 0.9% 100 ml @ 25 mls/hr IVPB Q8HR [facility] Rx# :[id number] Potassium Chloride 10 meq 200 In Water For Injection 1 100ml.bag @ 100 mls/hr IVPB Q1H [facility] Rx#: [id number] Potassium Chloride 10 meq 100 In Water For Injection 1 100ml.bag @ 100 mls/hr IVPB Q1H [facility] Rx#: [id number] metroNIDAZOLE-NS PMX 500 200 100 100 mg In Saline 1 100ml.bag @ 100 mls/hr IVPB Q8H [facility] Rx#:[id number] Intake, IV Titration 482.500 Amount Diltiazem 125 mg In 118.667 Sodium Chloride 0.9% 100 ml @ 10 MG/HR 10 mls/hr IV .[id number] [facility] Rx#: [id number] Heparin Sod,Pork in 0.45% 250.000 NaCl 25,000 unit In 0.45 % NaCl 1 250ml.bag @ 12 UNITS/KG/HR 8.772 mls/hr IV .Q24H [facility]LE[facility] Rx#: [id number] Norepinephrine 4 mg In 113.833 Sodium Chloride 0.9% 250 ml @ 0.05 MCG/KG/MIN 15. 011 mls/hr IV .[id number] [facility] Rx#:[id number] Oral 120 Output: Urine 1705 505 70 Stool 200 Other: Voiding Method Indwelling Catheter Indwelling Catheter - Exam General appearance: The patient is alert, oriented, appears in no acute di stress. HET: Head is normocephalic and atraumatic. Neck: Supple without lymphadenopathy. Trachea midline. Heart: S1 S2. Irregular rate and rhythm. Lungs: Clear to auscultation. Abdomen: Soft, incisional tenderness, dressings clean dry and intact. DONOVAN drain, ostomy site left lower quadrant. Nondistended, Positive bowel sounds. Extremities: Normal skin color and turgor, warm to touch. Bilateral pedal edema. Neurological: No focal deficits. Strength and sensation are grossly intact. - Labs CBC & Chem 7: 10/26/20 03:37 10/26/20 03:37 Labs: Abnormal Lab Results - Last 24 Hours (Table) 10/25/20 10/26/20 10/26/20 Range/Units 15:07 03:37 03:37 RBC 3.87 L (4.30-5.90) m/uL Hgb 11.6 L (13.0-17.5) gm/dL Hct 35.1 L (39.0-53.0) % Neutrophils # 8.0 H (1.3-7.7) k/uL APTT 63.7 H (22.0-30.0) sec Sodium 134 L (137-145) mmol/L Glucose 104 H (74-99) mg/dL Calcium 7.7 L (8.4-10.2) mg/dL Total Protein 4.2 L (6.3-8.2) g/dL Albumin 2.0 L (3.5-5.0) g/dL 10/26/20 Range/Units 03:37 RBC (4.30-5.90) m/uL Hgb (13.0-17.5) gm/dL Hct (39.0-53.0) % Neutrophils # (1.3-7.7) k/uL APTT 52.7 H (22.0-30.0) sec Sodium (137-145) mmol/L Glucose (74-99) mg/dL Calcium (8.4-10.2) mg/dL Total Protein (6.3-8.2) g/dL Albumin (3.5-5.0) g/dL Microbiology - Last 24 Hours (Table) 10/20/20 17:45 Blood Culture - Preliminary Blood No Growth after 120 hours 10/20/20 18:00 Blood Culture - Preliminary Blood No Growth after 120 hours Assessment and Plan Assessment: 1. Bilateral pulmonary embolism 2. 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 Postop sigmoid colectomy with end colostomy 4. 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 Hypertension Plan: Labs reviewed, hemoglobin stable. Patient is tolerating anticoagulation well with no active bleeding. Prescription for Eliquis sent to pharmacy, case management discussed with patient and and they agree with ELiquis. Discussed with cardiology ,a nd may transition to Eliquis. Discontinue heparin and transition to Eliquis today. The impression and plan of care has been dictated as directed. I performed a history and examination of this patient, discussed the same with the dictator. I agree with the dictator's note ,documented as a scribe. Any additional findings or plans will be noted.
[2020-10-26] MEDS: APIXABAN 5 MG TAB PO SCH ×2 (11:49→20:57)
[2020-10-26] MEDS: SODIUM CHLORIDE 0.9% 1,000 ML IV SCH (11:50)
[2020-10-26] MEDS: D5-0.45% NACL WITH KCL 20MEQ/L 1,000 ML IV SCH (16:28)
--- NOTE | 2020-10-26 18:50 | PN ---
PROGRESS NOTE DATE OF SERVICE: 10/26/2020 REASON FOR FOLLOWUP: Secondary peritonitis from perforated sigmoid colon. INTERVAL HISTORY: The patient is currently afebrile. The patient is breathing comfortably. Denies having any chest pain, shortness of breath or cough. No or diarrhea reported. PHYSICAL EXAMINATION: Blood pressure 103/53 with a pulse of 68, temperature 98.4. He is 95% on 2 L nasal cannula. General description is an elderly male lying in bed in no distress. RESPIRATORY SYSTEM: Unlabored breathing. Clear to auscultation anteriorly. HEART: S1, S2. Regular rate and rhythm. ABDOMEN: Soft. Mild tenderness. No guarding or rigidity. LABS: Hemoglobin is 11.3, white count 9.6, BUN of 15, creatinine 0.93. DIAGNOSTIC IMPRESSION AND PLAN: Patient with secondary peritonitis from a perforated sigmoid colon, status post diverting colostomy. Abdominal cultures with Enterococcus, E coli, anaerobes. The patient is covered with Zosyn. That will be continued for now and monitor clinical course closely. Continue supportive care. MMODL / IJN: [id number] /
[2020-10-26] MEDS: TAMSULOSIN 0.4 MG CAP.ER.24H PO SCH (20:57)
[2020-10-26] MEDS ORDERED: FUROSEMIDE 10 MG/ML 4 ML VIAL IV ONE (21:00)
--- NOTE | 2020-10-26 23:46 | P.PN ---
Subjective This is a pleasant 85 years old male with past medical history of CVA/TIA, hypertension, residual right hemiparesis. He was admitted with abdominal pain and CAT scan of the abdomen showing free air and free fluid. He underwent exploratory laparotomy with sigmoid colectomy and colostomy and manual disimpaction Also on CT of the abdomen there was suspicion of PE which was shown on CT of the chest to have bilateral PE and bilateral lower extremity DVT on ultrasound of the lower extremities. Patient currently is on heparin drip. Echocardiogram: Showed ejection fraction of 45-50% with slight apical hypokinesia. Vascular surgery with Dr. Kang were consulted and they recommended to continue with heparin drip and this patient bleeds then IVC filter would be indicated per their recommendation. Patient is currently covered with Zosyn and ID team on the case 10/22/20 Patient is in the ICU, closely monitored for his perforated viscus where his been treated for secondary peritonitis and bilateral DVT and PE He is lying in bed generally weak still complaining from pain on the right lower abdomen and surgical site. Histo on heparin drip and D5 half-normal saline at 75 mL/h. Also on Zosyn and Flagyl He is on clear liquid diet eating about 50-75% of his meals CBC and BMP are stable Blood culture is growing group D enterococcus 10/23/2020 Patient in the ICU monitored closely. He had an eventful one last night. He feels flat his abdominal pain is slightly better compared to yesterday. He still on anticoagulation for bilateral DVT and PE with no new complaint. He is still covered with broad-spectrum antibiotics with Zosyn and Flagyl for his peritonitis He was about to be documented when he developed A. fib and RVR, cartilage team were consulted and they started him on Cardizem drip and metoprolol 25 mg twice a day. 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 To consider for Advance diet and still tachycardic 150-1:30 Cardiology switched to amiodarone [place] 400 mg twice a day. Also on Cardizem drip. Cardiology team are considering cardioversion Patient continue on heparin drip as well. His currently on Zosyn and Flagyl for his secondary peritonitis and perforated viscus.. Continue with current respiratory 10/25/2020 Patient remains in the ICU. Colostomy bag is empty morning. We'll determine some serosanguineous fluid. No abdominal pain. However patient only eats half of his meal Patient was still tachycardic this morning around 120-1:30, weed burner adjusted his medication with amiodarone 400 mg Cardizem and anticoagulation He is on Zosyn and Flagyl 10/26/2020 Patient is lethargic but awake. He is on full diet. Minimal abdominal pain and stable. He finishes about 50-75% of his meal. For his secondary peritonitis. Today he is still on Zosyn While Flagyl discontinued, Leukocytosis improved today Vitals are stable. Heart rate controlled. he is a status post cardioversion on 10/25 for A. fib and RVR, . He is also on Amiodarone and Eliquis 10mg. His also with bilateral PE and DVT. Review of systems CONSTITUTIONAL: No fever, no malaise, no fatigue. HEENT: No recent visual problems or hearing problems. Denied any sore throat. CARDIOVASCULAR: No orthopnea, PND, no palpitations, no syncope. PULMONARY: No chest wall tenderness, no hemoptysis. GASTROINTESTINAL: No diarrhea, no nausea, no vomiting, no abdominal pain. Normoactive bowel sounds. NEUROLOGICAL: No headaches, no weakness, no numbness. HEMATOLOGICAL: Denies any bleeding or petechiae. Active Medications Generic Name Dose Route Start Last Admin Trade Name Freq PRN Reason Stop Dose Admin Amiodarone HCl 400 mg 10/24/20 21:00 10/26/20 20:57 Amiodarone 200 Mg Tab PO 400 mg BID KATHLEEN Administration Apixaban 10 mg 10/26/20 11:30 10/26/20 20:57 Apixaban 5 Mg Tab PO 11/01/20 11:24 10 mg BID KATHLEEN Administration Hydromorphone HCl 1 mg 10/20/20 21:07 10/23/20 22:21 Hydromorphone 1 Mg/Ml 1 Ml Syringe IVP 1 mg Q3HR PRN Administration Moderate to Severe Pain Potassium Chloride/Dextrose/Sod Cl 1,000 mls @ 40 mls/hr 10/20/20 21:15 10/26/20 16:28 D5%-1/2ns-Kcl 20 Meq/L Iv Solution IV 40 mls/hr .Q24H KATHLEEN Administration Piperacillin Sod/Tazobactam 100 mls @ 25 mls/hr 10/21/20 16:00 10/26/20 16:28 Sod 3.375 gm/ Sodium Chloride IVPB 25 mls/hr Q8HR KATHLEEN Administration Sodium Chloride 1,000 mls @ 20 mls/hr 10/25/20 08:30 10/26/20 11:50 Saline 0.9% IV 20 mls/hr .Q24H KATHLEEN Administration Memantine 10 mg 10/23/20 21:00 10/26/20 20:57 Memantine 10 Mg Tab PO 10 mg BID KATHLEEN Administration Metoprolol Tartrate 25 mg 10/23/20 12:00 10/26/20 20:57 Metoprolol Tartrate 25 Mg Tab PO 25 mg BID KATHLEEN Administration Miscellaneous Information 1 each 10/24/20 04:52 Magnesium Replacement Protocol 1 Each Misc MISCELLANE DAILY PRN Per Protocol Protocol Miscellaneous Information 1 each 10/24/20 04:56 Potassium Replacement Protocol 1 Each Misc MISCELLANE DAILY PRN Per Protocol Protocol Naloxone HCl 0.2 mg 10/20/20 17:45 Naloxone 0.4 Mg/Ml 1 Ml Vial IV Q2M PRN Opioid Reversal Ondansetron HCl 4 mg 10/20/20 21:07 10/25/20 14:05 Ondansetron 4 Mg/2 Ml Vial IVP 4 mg Q8HR PRN Administration Nausea And Vomiting Pantoprazole Sodium 40 mg 10/21/20 09:00 10/26/20 07:03 Pantoprazole 40 Mg/10 Ml Vial IV 40 mg DAILY KATHLEEN Administration Polyethylene Glycol 17 gm 10/24/20 09:00 10/26/20 08:28 Polyethylene Glycol 3350 17 Gm Powd.Pack PO Not Given DAILY KATHLEEN Sodium Chloride 10 ml 10/24/20 12:25 Sodium Chloride 0.9% Flush 10 Ml Syringe IV Q4HR PRN PICC Line Sodium Chloride 10 ml 10/31/20 09:00 Sodium Chloride 0.9% Flush 10 Ml Syringe IV WEEKLY KATHLEEN Sodium Chloride 20 ml 10/24/20 12:25 Sodium Chloride 0.9% Flush 10 Ml Syringe IV Q4HR PRN PICC Line Tamsulosin HCl 0.4 mg 10/23/20 21:00 10/26/20 20:57 Tamsulosin 0.4 Mg Cap.Er.24h PO 0.4 mg HS KATHLEEN Administration Objective - Vital Signs Vital signs: Vital Signs Temp 98.1 F 10/26/20 08:00 Pulse 81 10/26/20 09:00 Resp 19 10/26/20 09:00 BP 117/59 10/26/20 09:00 Pulse Ox 94 L 10/26/20 09:00 Intake & Output 10/25/20 10/26/20 10/26/20 18:59 06:59 18:59 Intake Total 1682.500 640 520 Output Total 1705 705 150 Balance -22.500 -65 370 Weight 80.8 kg 78.6 kg Intake: IV 1080 640 520 D5-0.45% NaCl with KCl 480 440 120 20Meq/l 1,000 ml @ 40 mls /hr IV .Q24H [facility] Rx#: [id number] Piperacillin-Tazobactam 3 200 100 200 .375 gm In Sodium Chloride 0.9% 100 ml @ 25 mls/hr IVPB Q8HR [facility] Rx# :[id number] Potassium Chloride 10 meq 200 In Water For Injection 1 100ml.bag @ 100 mls/hr IVPB Q1H [facility] Rx#: [id number] Potassium Chloride 10 meq 100 In Water For Injection 1 100ml.bag @ 100 mls/hr IVPB Q1H [facility] Rx#: [id number] metroNIDAZOLE-NS PMX 500 200 100 100 mg In Saline 1 100ml.bag @ 100 mls/hr IVPB Q8H [facility] Rx#:[id number] Intake, IV Titration 482.500 Amount Diltiazem 125 mg In 118.667 Sodium Chloride 0.9% 100 ml @ 10 MG/HR 10 mls/hr IV .[id number] [facility] Rx#: [id number] Heparin Sod,Pork in 0.45% 250.000 NaCl 25,000 unit In 0.45 % NaCl 1 250ml.bag @ 12 UNITS/KG/HR 8.772 mls/hr IV .Q24H [facility] Rx#: [id number] Norepinephrine 4 mg In 113.833 Sodium Chloride 0.9% 250 ml @ 0.05 MCG/KG/MIN 15. 011 mls/hr IV .[id number] [facility] Rx#:[id number] Oral 120 Output: Urine 1705 505 150 Stool 200 Other: Voiding Method Indwelling Catheter Indwelling Catheter Indwelling Catheter - Exam GENERAL: The patient is alert and oriented x3, not in any acute distress. Well developed, well nourished. HEENT: Pupils are round and equally reacting to light. EOMI. No scleral icterus. No conjunctival pallor. Normocephalic, atraumatic. No pharyngeal erythema. No thyromegaly. CARDIOVASCULAR: S1 and S2 present. No murmurs, rubs, or gallops. PULMONARY: Chest is clear to auscultation, no wheezing or crackles. -ABDOMEN: Soft, nontender, nondistended, normoactive bowel sounds. No palpable organomegaly. Surgical wound is closed and healing with a dressing MUSCULOSKELETAL: No joint swelling or deformity. EXTREMITIES: No cyanosis, clubbing, or pedal edema. NEUROLOGICAL: Gross neurological examination did not reveal any focal deficits. SKIN: No rashes. no petechiae. - Labs CBC & Chem 7: 10/26/20 03:37 10/26/20 03:37 Labs: Abnormal Lab Results - Last 24 Hours (Table) 10/25/20 10/26/20 10/26/20 Range/Units 15:07 03:37 03:37 RBC 3.87 L (4.30-5.90) m/uL Hgb 11.6 L (13.0-17.5) gm/dL Hct 35.1 L (39.0-53.0) % Neutrophils # 8.0 H (1.3-7.7) k/uL APTT 63.7 H (22.0-30.0) sec Sodium 134 L (137-145) mmol/L Glucose 104 H (74-99) mg/dL Calcium 7.7 L (8.4-10.2) mg/dL Total Protein 4.2 L (6.3-8.2) g/dL Albumin 2.0 L (3.5-5.0) g/dL 10/26/20 Range/Units 03:37 RBC (4.30-5.90) m/uL Hgb (13.0-17.5) gm/dL Hct (39.0-53.0) % Neutrophils # (1.3-7.7) k/uL APTT 52.7 H (22.0-30.0) sec Sodium (137-145) mmol/L Glucose (74-99) mg/dL Calcium (8.4-10.2) mg/dL Total Protein (6.3-8.2) g/dL Albumin (3.5-5.0) g/dL Microbiology - Last 24 Hours (Table) 10/20/20 17:45 Blood Culture - Preliminary Blood No Growth after 120 hours 10/20/20 18:00 Blood Culture - Preliminary Blood No Growth after 120 hours Assessment and Plan Assessment: -Bowel/sigmoid perforation status post exploratory laparotomy, sigmoid colectomy and colostomy with manual fecal disimpaction -Bilateral pulmonary emboli secondary to bilateral DVT. With no evidence of RV citrine on CT or echo -Mild hypoxic respiratory failure -Atrial fibrillation with RVR -Secondary peritonitis -History of CVA with right hemiparesis -Hypertension Plan: This is a pleasant 85 years old male who presents with bowel obstruction and perforation status post sigmoid colectomy and colostomy. Also has bilateral PE/DVT. Currently he is kept on heparin drip with close monitoring for signs of rebleeding with vascular surgery close monitoring the case to place IVC filter. Patient cannot tolerate anticoagulation consult cardiology for A. fib. Continue with metoprolol Patient also followed by weed burner, infectious disease and surgery primary team He kept on broad-spectrum antibiotic in the form of Zosyn, gentle hydration Continue same treatment. Continue with symptomatic treatment. Resume home medication. Monitor lytes and vitals. DVT and GI prophylaxis. Further recomme ndationsas per clinical course of the patient DVT prophylaxis: heparin GI Prophylaxis: Pepcid Prognosis is guarded
[2020-10-27] MEDS: PIPERACILLIN-TAZOBACTAM 3.375 GM in SODIUM CHLORIDE 0.9% 100 ML IVPB SCH ×3 (00:49→16:26)
[2020-10-27 05:46] LABS: Basophils % (A) 0 %; Eosinophils % (A) 0 %; HCT 37.5 % (39.0-53.0); HGB 12.1 gm/dL (13.0-17.5); Lymphocytes # (A) 0.7 k/uL (1.0-4.8); Lymphocytes % (A) 9 %; MCHC 32.1 g/dL (31.0-37.0); MCV 90.2 fL (80.0-100.0); Monocytes # (A) 0.4 k/uL (0-1.0); Monocytes % (A) 5 %; Neutrophils % (A) 84 %; Platelet Count 256 k/uL (150-450); RBC 4.16 m/uL (4.30-5.90); RDW 13.7 % (11.5-15.5); WBC 8.3 k/uL (3.8-10.6)
[2020-10-27 06:08] LABS: Albumin 2.2 g/dL (3.5-5.0); Calcium 7.9 mg/dL (8.4-10.2); Potassium 3.9 mmol/L (3.5-5.1); Total Bilirubin 0.8 mg/dL (0.2-1.3); Total Protein 4.7 g/dL (6.3-8.2)
[2020-10-27] MEDS: POTASSIUM CHLORIDE 10 MEQ in WATER FOR INJECTION 1 100ML.BAG IVPB SCH ×2 (06:47→09:09)
--- NOTE | 2020-10-27 08:08 | P.PN ---
Subjective HISTORY OF PRESENTING ILLNESS This is a pleasant 85-year-old male past medical history significant for hyperlipidemia, prior stroke, hypertension, who presented secondary to abdominal pain, no bowel movement for 3 weeks and constipation. He had a CAT scan performed which showed incidental PE as well. CAT scan abdomen and pelvis showed concern of perforated bowel and patient was taken to the OR with Kumar's procedure performed. Patient had been doing fairly well up until yesterday when he had atrial fibrillation with RVR with heart rates in the 160s. Patient was placed on a Cardizem drip as well as amiodarone drip with improvement in the heart rate to 100s to 1:15. He denies any chest pain or pressure. He remains on antibiotics for his sepsis and perforated bowel. With A. fib he was somewhat hypotensive and therefore placed on norepinephrine as well. He remains grossly edematous and additional dose of Lasix was ordered for today. He does have significant right upper extremity and scrotal edema. 10/25/2020 Patient seen and examined. Patient was transitioned from IV amiodarone to by mouth amiodarone yesterday however heart rates have been elevated at 130s to 140s. Patient with continued need for vasopressors. Patient denies any chest pain or pressure. He is still grossly edematous. He has been receiving IV Lasix 3 Patient seen and examined. Cardioverted yesterday and in sinus rhythm today. Levophed was able to be weaned since cardioversion. No chest pain, pressure. No SOB. Remains weak. Grossly edematous however albumin 2.0. WBC down to 9.6. 10/27/20 Patient seen and examined. Patient remains off of vasopressors. Systolic blood pressures in the low 100s. He denies any chest pain, pressure, shortness breath. Still remains very weak. Patient was given additional dose of Lasix yesterday with -2.6 L, unclear if intakes were accurate. Albumin remains low however 2.2 yesterday. White count continues to come down to 8.3. Patient was taken off of heparin drip and transitioned to DVT/PE dosing of Eliquis. PHYSICAL EXAMINATION Blood pressure 102/51 heart rate 62 afebrile and maintaining oxygen saturation on 2L NC. CONSTITUTIONAL: No apparent distress. HEENT: Head is normocephalic. Pupils are equal, round. Sclerae anicteric. Mucous membranes of the mouth are moist. No JVD. No carotid bruit. CHEST EXAMINATION: Lungs are clear to auscultation. No chest wall tenderness is noted on palpation or with deep breathing. HEART EXAMINATION: regularly rate and rhythm. S1, S2 heard. No murmurs, gallops or rub. ABDOMEN: Soft, nontender. Positive bowel sounds. EXTREMITIES: 2+ peripheral pulses, +gerneralized upper and lower extremity edema. NEUROLOGIC EXAMINATION: Patient is awake, alert. ASSESSMENT 1. Paroxysmal atrial fibrillation, currently sinus rhythm, status post cardioversion 2. Status post Kumar's procedure for perforated sigmoid colon 3. History of hypertension 4. Hypotension improved since cardioversion 5. History of CVA 6. Mild dementia 7. Bilateral pulmonary emboli 8. Bilateral lower extremity DVT 9. Mildly decreased ejection fraction 45-50% with findings concerning for grade 3 diastolic dysfunction. PLAN Patient was transitioned to DVT/PE dosing of Eliquis. He did have good urine output with additional dose of Lasix and we will try additional dose today. Significant component of clears pacing secondary to protein calorie malnutrition and sepsis however he did tolerate yesterday his dose and we will continue to monitor. Continue amiodarone by mouth and taper. Continue supportive care. Objective - Vital Signs Vital signs: Vital Signs Temp 98.0 F 10/27/20 04:00 Pulse 62 10/27/20 07:00 Resp 13 10/27/20 07:00 BP 102/51 10/27/20 07:00 Pulse Ox 94 L 10/27/20 07:00 Intake & Output 10/26/20 10/27/20 10/27/20 18:59 06:59 18:59 Intake Total 1080 820 140 Output Total 449 4090 125 Balance 631 -3270 15 Weight 78 kg Intake: IV 1080 580 140 D5-0.45% NaCl with KCl 480 480 40 20Meq/l 1,000 ml @ 40 mls /hr IV .Q24H [facility] Rx#: [id number] Piperacillin-Tazobactam 3 200 100 .375 gm In Sodium Chloride 0.9% 100 ml @ 25 mls/hr IVPB Q8HR [facility] Rx# :[id number] Potassium Chloride 10 meq 200 100 In Water For Injection 1 100ml.bag @ 100 mls/hr IVPB Q1H [facility] Rx#: [id number] metroNIDAZOLE-NS PMX 500 200 mg In Saline 1 100ml.bag @ 100 mls/hr IVPB Q8H [facility] Rx#:[id number] Oral 240 Output: Urine 389 4090 125 Stool 60 Other: Voiding Method Indwelling Catheter Indwelling Catheter - Labs CBC & Chem 7: 10/27/20 05:17 10/27/20 05:17 Labs: Abnormal Lab Results - Last 24 Hours (Table) 10/27/20 10/27/20 Range/Units 05:17 05:17 RBC 4.16 L (4.30-5.90) m/uL Hgb 12.1 L (13.0-17.5) gm/dL Hct 37.5 L (39.0-53.0) % Lymphocytes # 0.7 L (1.0-4.8) k/uL Sodium 134 L (137-145) mmol/L Glucose 102 H (74-99) mg/dL Calcium 7.9 L (8.4-10.2) mg/dL Total Protein 4.7 L (6.3-8.2) g/dL Albumin 2.2 L (3.5-5.0) g/dL Microbiology - Last 24 Hours (Table) 10/20/20 17:45 Blood Culture - Final Blood No Growth after 144 hours 10/20/20 18:00 Blood Culture - Final Blood No Growth after 144 hours
--- NOTE | 2020-10-27 08:53 | P.PN ---
Subjective Progress Note Date: 10/27/20 This is an 85-year-old male who presents to the emergency department, complaining of unable to urinate. The patient also has not had a bowel movement in 3 weeks. He apparently was recently admitted for constipation but then was discharged. The patient has a history of colitis. The patient apparently feels nauseated, and his abdomen is distended. He denies any vomiting. Denied any chest pain. He also denied any shortness of breath. He apparently was found have a perforated viscus, and underwent a Kumar's procedure by Dr. Dean. He is postop day #1. Dr. Dean called me yesterday and asked whether or not we could put the patient in the ICU overnight. He was concerned given the patient's age. In addition, in the process of evaluating the patient, the patient was found to have bilateral pulmonary emboli, moderate clot burden, right greater than left, and also bilateral lower extremity DVT. Because of the recent surgery, he cannot be heparinized. Apparently, the vascular surgeon was called, and at this point, no interventions are planned. The patient apparently has a history of CVA, hypertension, and chronic prostate disease. He is currently on lactulose, MiraLAX, multiple vitamins, Flomax, Namenda, and Zocor. He is resting comfortably in the ICU. He is on O2 at 2 L. He is getting dextrose, with half-normal saline, with 20 mEq of potassium at 125 mL an hour. I didn't passed onto the nurse, that may be vascular surgery would prefer to do a Falun filter. The patient is without distress. Progress note dated 10/22/2020. This is a 85-year-old male, who is postop day #2, status post Kumar's procedure, with sigmoid colectomy and end colostomy, for perforated sigmoid colon and fecal impaction. The patient was also discovered have bilateral DVTs, and bilateral pulmonary emboli, right greater than left, with moderate clot burden. The patient's currently on IV heparin, weight based protocol, D5.45, with 20 of potassium, 125 mL an hour, and O2 at 2 L. The patient has a history of CVA, BPH, dementia, hyperlipidemia, essential hypertension and chronic cons tipation. Surprisingly, the patient seemed be doing relatively well. I did ask vascular surgery whether or not a Falun filter would be appropriate given the fact that he was at high risk for anticoagulation given his age. Initially, the surgeon did not want to start blood thinners because of the recent surgery. Currently, from the clinical standpoint, he is doing well. White count 8.8, h emoglobin 11.3, hematocrit 35.5, and platelet count 209,000. PTT is 45.7. Sodium 133, potassium 4.4, chlorides 106, CO2 23, anion gap 4, BUN 26, and creatinine 0.79. Progress note dated 10/23/2020. 85-year-old male, who is postop day #3, status post Kumar's procedure, with sigmoid colectomy, and end colostomy, for perforated sigmoid colon and fecal impaction. In addition, at the time of his initial evaluation, he was found to have bilateral DVT, and also, bilateral pulmonary emboli, right greater than left, with moderate clot burden. Currently, the patient continues on 2 L nasal cannula. He is on heparin via weightbase protocol. He is also getting dextrose with half-normal saline with 20 mEq of potassium chloride, at 75 mL an hour, to be reduced down to 40 mL an hour. In addition, the patient received Lasix 40 mg IV push 1. The patient was also on saline at 75 mL an hour, but that IV was discontinued. His weight has jumped, and is receiving much more fluid than urine output. Also, unfortunately, we're all set to discharge the patient to the general medical floor without telemetry, where he developed atrial fibrillation with RVR, was started on a Cardizem drip, and given some beta jerry. Also, initially, the surgeon did not want the patient on blood thinners, but did change his mind, and currently the patient is on heparin. On 10/24/2020 the patient is being seen in follow-up in the intensive care unit. The patient is postop day #4. The patient underwent a sigmoid colectomy and end colostomy and the patient has a Kumar pouch. He presented to the hospital because of constipation and patient was found to have perforated sigmoid colon with fecal impaction. Abdominal wound cultures growing E. coli in addition to Enterococcus faecalis and fisherman the patient is on a combination of Zosyn and Flagyl. Over the past 24 hours, the patient went into atrial fibrillation with rapid ventricular response. His blood pressure also became somewhat hypotens lianne. He was placed on a combination of norepinephrine for blood pressure support and is currently running at 0.09 mcg/kg per minute. The patient was also started on Cardizem drip initially at 10 mg an hour and currently is also on amiodarone drip at 0.5 mg per minute. Current heart rate is around 107 and is still irregular. Most recent blood pressure is 93/61. He is producing urine output. He is awake and alert and currently is on oxygen at 2 L per minute. He continues to have edema both in the upper and lower extremities more so on the right as the patient had a previous CVA on the right. Abdomen is nondistended. Bowel sounds are sluggish. Colostomy site is viable and the tissue looks healthy. Minimal amount of liquid collecting in the colostomy bag. Bowel sounds are hypoactive. Abdomen is nondistended.The white cell count is at 12.3 with a hemoglobin of 11.8. The patient remains on IV heparin as the patient has a new onset atrial fibrillation. The patient also has bilateral lower extremity DVT. His PTT is therapeutic for now. The patient is being given clear liquid diet. The patient is also using incentive spirometer. He is awake and alert and communicating. Discussed the case with cardiology and there is a constellation for cardioversion due to his ongoing atrial fibrillation with rapid ventricular response despite being on a Cardizem drip and amiodarone. His level is good ejection fraction has been within normal limits. He is on IV fluids at the rate of 50 mL an hour of D5 half-normal with potassium supplements. On 10/25/2020 I'm seeing the patient in follow-up in intensive care unit. The patient is postop day #5 following a sigmoid colectomy and end colostomy and Kumar's pouch. The patient is also infected. Abdominal cultures showed E. c devin and Enterococcus faecalis and fascial and the patient remains on a combination of Zosyn and Flagyl. Note that anaerobic bacteria is also growing in the abdominal wounds. As such, this is a polymicrobial growth related to bowel perforation. The patient is currently extubated and he is hemodynamically stable. Nevertheless, the active issue for now is his atrial fibrillation with rapid ventricular response and his heart rate is in the 150 range, irregular despite being on a combination of Cardizem drip and amiodarone. The patient was switched to oral amiodarone and subsequently earlier this morning he was switched back to amiodarone drip at 1 mg an hour and he was given 150 mg bolus and the plan is to proceed with cardioversion because of his persistent atrial fibrillation. He remains on IV heparin for now. The patient is also on D5 half-normal saline with potassium supplements running at or cc an hour. Significant amount of fluid overload yesterday with extensive edema in all 4 extremities and the patient was given a dose of Lasix and the neck fluid balance over the past 24 hours has been -1 L. He is afebrile. He is on norepinephrine infusion which is running at 0.04 mcg/kg per minute.. The white cell count of 13.2 with hemoglobin 11.9. PTT is therapeutic at 73. The rest of the blood work and electrodes are all within normal limits. As for the ileus, the patient has some vague abdominal distention yesterday and the left arm of the abdomen showed a component of ileus. Overnight, he was not passing any gas and subsequently he had large amount of gas collecting in the colostomy bag and he seems to be somewhat deflated. Bowel sounds remain hypoactive at this point in time. The patient remains nothing by mouth. She is awake and alert and oriented. Following commands appropriately. He is postop day #5. Clinically, slightly more lethargic compared to yesterday, yet very much appropriate and responsive. 10/26/2020 the patient is comfortable awake and alert on room air oxygen. Is postop day #6 following a sigmoid colectomy and colostomy and Kumar's pouch. He has a Carranza microbial abdominal infection with anaerobes, E. coli and enterococcus and the patient is still on a combination of Zosyn and Flagyl. Meanwhile, he was having issues with atrial fibrillation with rapid ventricular response that was very difficult to control. The patient underwent cardioversion. He is currently off the Cardizem drip. He is off the pressors and the patient has been taken off the norepinephrine infusion. Currently is only on IV heparin infusion. His cardiac rhythm is sinus for now. He is off pressors. He is on Lasix 40 mg to 24 hours and the dose was increased up to twice a day by cardiology. While, his ileus has subsided and the patient is pr oducing stool and the patient is taking some soft diet today. In terms of rate control, is on a Toprol 25 mg by mouth twice a day and amiodarone 400 mg by mouth twice a day. IV heparin is still on board for now. Surgical wound site is dry clean and intact. DONOVAN drain output from the right side is serous and minimal output at this point in time. Is awake and alert. No other significant issues for now. Fluid balance over the past 24 hours has been negative and the patient has been able to achieve a negative fluid balance and is improving in terms of his edema. On 10/27/2020 patient seen in follow-up in intensive care unit, he is awake and alert, oriented 3, denies any worsening dyspnea, he is currently on room air pulse ox is 94%, vital signs are stable, he has had no fever or chills. remains on Zosyn for sepsis related to bowel perforation. Tolerating oral diet. Colostomy is with soft brown stool, abdomen soft. Vitals stable, remains in sinus with controlled rate, patient has been transitioned to EliquItz luna OR'ed, continues on oral Amio 400 mg BID Objective - Vital Signs Vital signs: Vital Signs Temp 98.0 F 10/27/20 04:00 Pulse 62 10/27/20 07:00 Resp 13 10/27/20 07:00 BP 102/51 10/27/20 07:00 Pulse Ox 94 L 10/27/20 07:00 Intake & Output 10/26/20 10/27/20 10/27/20 18:59 06:59 18:59 Intake Total 1080 820 140 Output Total 449 4090 125 Balance 631 -3270 15 Weight 78 kg Intake: IV 1080 580 140 D5-0.45% NaCl with KCl 480 480 40 20Meq/l 1,000 ml @ 40 mls /hr IV .Q24H KATHLEEN Rx#: [id number] Piperacillin-Tazobactam 3 200 100 .375 gm In Sodium Chloride 0.9% 100 ml @ 25 mls/hr IVPB Q8HR K[facility]LE[facility] Rx# :[id number] Potassium Chloride 10 meq 200 100 In Water For Injection 1 100ml.bag @ 100 mls/hr IVPB Q1H KATHLEEN Rx#: [id number] metroNIDAZOLE-NS PMX 500 200 mg In Saline 1 100ml.bag @ 100 mls/hr IVPB Q8H KATHLEEN Rx#:[id number] Oral 240 Output: Urine 389 4090 125 Stool 60 Other: Voiding Method Indwelling Catheter Indwelling Catheter - Constitutional General appearance: Present: average body habitus, cooperative - EENT Eyes: Present: PERRLA, poor dentition, normal appearance ENT: Present: NA/AT Ears: bilateral: normal - Neck Neck: Present: normal ROM - Respiratory Respiratory: bilateral: diminished - Cardiovascular Rhythm: regular Heart sounds: normal: S1, S2 - Peripheral edema leg Peripheral Edema: bilateral: 1+ ankle Peripheral Edema: bilateral: 1+ foot Peripheral Edema: bilateral: 1+ - Peripheral pulses dorsalis pedis Peripheral Pulses: bilateral: Normal - Gastrointestinal General gastrointestinal: Present: normal bowel sounds - Integumentary Integumentary: Present: normal turgor - Neurologic Neurologic: Present: CNII-XII intact - Musculoskeletal Musculoskeletal: Present: generalized weakness, strength equal bilaterally - Psychiatric Psychiatric: Present: A&O x's 3, appropriate affect, intact judgment & insight - Additional findings Additional findings: left lower quadrant colostomy with soft brown output - Labs CBC & Chem 7: 10/27/20 05:17 10/27/20 05:17 Labs: Abnormal Lab Results - Last 24 Hours (Table) 10/27/20 10/27/20 Range/Units 05:17 05:17 RBC 4.16 L (4.30-5.90) m/uL Hgb 12.1 L (13.0-17.5) gm/dL Hct 37.5 L (39.0-53.0) % Lymphocytes # 0.7 L (1.0-4.8) k/uL Sodium 134 L (137-145) mmol/L Glucose 102 H (74-99) mg/dL Calcium 7.9 L (8.4-10.2) mg/dL Total Protein 4.7 L (6.3-8.2) g/dL Albumin 2.2 L (3.5-5.0) g/dL Microbiology - Last 24 Hours (Table) 10/20/20 17:45 Blood Culture - Final Blood No Growth after 144 hours 10/20/20 18:00 Blood Culture - Final Blood No Growth after 144 hours Assessment and Plan Plan: Assessment: 1 Postop day # 7, status post Kumar's procedure, with sigmoid colectomy and end colostomy, for perforated sigmoid colon and fecal impaction. The intra- abdominal cultures showed E. coli in addition to enterococcus fascia and faecalis and the patient remains on examination of Valerie and Yousif. The patient also has some anaerobes growing in the abdominal wound and antibiotic coverage remain the same. Currently off pressors. The patient is a broad- spectrum antibiotics. His colostomy site is functionally the patient is producing adequate amount of stool and the patient is on soft diet at this point in time. 2 Bilateral pulmonary emboli, right greater than left, with moderate clot burden, currently on IV heparin, PTT is therapeutic and the PICC line was placed and flushed with TPA yesterday for some difficulties with clogging 3 Bilateral lower extremity DVT, currently on IV heparin 4 New onset atrial fibrillation with rapid ventricular response, post successful cardioversion in his back to normal sinus rhythm. She is currently on metoprolol. He is currently off pressors. He remains on IV heparin. 5 History of CVA. 6 History of BPH. 7 History of dementia. 8 History of hyperlipidemia. 9 History of hypertension. 10 History of chronic constipation. 11 ileus improving with stool output and gas in the last and the back in the colostomy is functional and the patient is able to tolerate soft diet. Plan: Continue diuretics, patient is in negative balance but still significantly fluid overloaded, although does not have dyspnea and remains on room air, will cut back the Lasix to 40 mg IVP daily, continue antibiotics, oral anticoagulation. Incentive spirotmetry, increase activity as tolerated. Monitor electrolytes and renal profile. GI and DVt prophylaxis. May transfer the patient to Selective care unit today, will continue to follow I performed a history & physical examination of the patient and discussed their management with my nurse practitioner, Indu Melton. I reviewed the nurse practitioner's note and agree with the documented findings and plan of care. Lung sounds are positive for clear breath sounds. The findings and the impression was discussed with the patient. I attest to the documentation by the nurse practitioner. Time with Patient: Less than 30
--- NOTE | 2020-10-27 08:55 | P.PN ---
Subjective Progress Note Date: 10/27/20 Principal diagnosis: bilateral pulmonary embolism, bilateral DVT patient seen and examined sitting up in the ICU. No acute changes through the night. No signs of any active bleeding. Patient was transitioned from heparin drip to Eliquis yesterday. Is having good output from his ostomy. He is on full liquid diet. Denies any shortness of breath or chest pain.. Objective - Vital Signs Vital signs: Vital Signs Temp 98.0 F 10/27/20 04:00 Pulse 62 10/27/20 07:00 Resp 13 10/27/20 07:00 BP 102/51 10/27/20 07:00 Pulse Ox 94 L 10/27/20 07:00 Intake & Output 10/26/20 10/27/20 10/27/20 18:59 06:59 18:59 Intake Total 1080 820 140 Output Total 449 4090 125 Balance 631 -3270 15 Weight 78 kg Intake: IV 1080 580 140 D5-0.45% NaCl with KCl 480 480 40 20Meq/l 1,000 ml @ 40 mls /hr IV .Q24H KATHLEEN Rx#: [id number] Piperacillin-Tazobactam 3 200 100 .375 gm In Sodium Chloride 0.9% 100 ml @ 25 mls/hr IVPB Q8HR KATHLE[facility] Rx# :[id number] Potassium Chloride 10 meq 200 100 In Water For Injection 1 100ml.bag @ 100 mls/hr IVPB Q1H KATHLEEN Rx#: [id number] metroNIDAZOLE-NS PMX 500 200 mg In Saline 1 100ml.bag @ 100 mls/hr IVPB Q8H KATHLEEN Rx#:[id number] Oral 240 Output: Urine 389 4090 125 Stool 60 Other: Voiding Method Indwelling Catheter Indwelling Catheter - Exam General appearance: The patient is alert, oriented, appears in no acute distress. HET: Head is normocephalic and atraumatic. Neck: Supple without lymphadenopathy. Trachea midline. Heart: S1 S2. Irregular rate and rhythm. Lungs: Clear to auscultation. Abdomen: Soft, incisional tenderness, dressings clean dry and intact. DONOVAN drain, ostomy site left lower quadrant. Nondistended, Positive bowel sounds. Extremities: Normal skin color and turgor, warm to touch. Bilateral pedal edema. Right upper extremity with swelling. Neurological: No focal deficits. Strength and sensation are grossly intact. - Labs CBC & Chem 7: 10/27/20 05:17 10/27/20 05:17 Labs: Abnormal Lab Results - Last 24 Hours (Table) 10/27/20 10/27/20 Range/Units 05:17 05:17 RBC 4.16 L (4.30-5.90) m/uL Hgb 12.1 L (13.0-17.5) gm/dL Hct 37.5 L (39.0-53.0) % Lymphocytes # 0.7 L (1.0-4.8) k/uL Sodium 134 L (137-145) mmol/L Glucose 102 H (74-99) mg/dL Calcium 7.9 L (8.4-10.2) mg/dL Total Protein 4.7 L (6.3-8.2) g/dL Albumin 2.2 L (3.5-5.0) g/dL Microbiology - Last 24 Hours (Table) 10/20/20 17:45 Blood Culture - Final Blood No Growth after 144 hours 10/20/20 18:00 Blood Culture - Final Blood No Growth after 144 hours Assessment and Plan Assessment: 1. Bilateral pulmonary embolism 2. 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 Postop sigmoid colectomy with end colostomy 4. 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 Hypertension Plan: patient's hemoglobin remained stable without any signs of bleeding with anticoagulation. Patient was switched over to Eliquis 10 mg twice a day yesterday. Continue with oral anticoagulation. Continue medical management per primary medicine team and ICU team.Thank you for this consultation, we will sign off at this time.patient will need follow-up with vascular surgery after discharge. The impression and plan of care has been dictated as directed. Dr. Henao I performed a history and examination of this patient, discussed the same with the dictator. I agree with the dictator's note ,documented as a scribe. Any additional findings or plans will be noted.
[2020-10-27] MEDS ORDERED: FUROSEMIDE 10 MG/ML 4 ML VIAL IV SCH (09:00)
[2020-10-27] MEDS: METOPROLOL TARTRATE 25 MG TAB PO SCH ×2 (09:21→22:20)
[2020-10-27] MEDS: MEMANTINE 10 MG TAB PO SCH ×2 (09:21→22:19)
[2020-10-27] MEDS: APIXABAN 5 MG TAB PO SCH ×2 (09:21→22:20)
[2020-10-27] MEDS: AMIODARONE 200 MG TAB PO SCH ×2 (09:21→22:19)
[2020-10-27] MEDS: FUROSEMIDE 10 MG/ML 4 ML VIAL IV SCH (09:22)
[2020-10-27] MEDS: polyethylene glycoL 3350 17 GM POWD.PACK PO SCH (09:22)
[2020-10-27] MEDS: PANTOPRAZOLE 40 MG/10 ML VIAL IV SCH (09:22)
--- NOTE | 2020-10-27 11:16 | P.PN ---
Subjective Progress Note Date: 10/27/20 CHIEF COMPLAINT: Pneumoperitoneum HISTORY OF PRESENT ILLNESS: Patient is currently in the ICU. He is status post sigmoid colectomy with end colostomy and manual fecal disimpaction for perforated sigmoid colon and fecal impaction on 10/20/20. Patient's ostomy is functioning. He has having stool and flatus through the ostomy. He denies any nausea or vomiting. He is status post cardioversion and remains in normal sinus rhythm. He does have generalized edema with low albumin. He is currently on a full liquid diet. Vascular has switched patient to Eliquis for anticoagulation for his PE and DVT. Afebrile. WBC8.3 Hgb 12.1 albumin 2.2 PHYSICAL EXAM: VITAL SIGNS: Reviewed. GENERAL: Well-developed in no acute distress. HEENT: No sclera icterus. Extraocular movements grossly intact. Moist buccal mucosa. Head is atraumatic, normocephalic. ABDOMEN: Soft. Nondistended. Incision dressing small amount of blood at the distal aspect of the dressing. Stoma is pink. There is stool and air present in ostomy bag. DONOVAN drain minimal serosanguineous fluid NEUROLOGIC: Alert and oriented. Cranial nerves II through XII grossly intact. ASSESSMENT: 1. Perforated sigmoid colon and fecal impaction status post sigmoid colectomy with end colostomy and manual fecal disimpaction, postop day #7 2. Sepsis secondary to Peritonitis present on admission 3. Severe protein calorie malnutrition PLAN: -Continue ICU management -Continue supportive care -Advance diet to full liquids -Discontinue DONOVAN drain -Continue IV antibiotics per ID -Ensure 3 times a day -Encourage incentive spirometer use Physician Channel Opener note has been reviewed by physician. Signing provider agrees with the documented findings, assessment, and plan of care. Objective - Vital Signs Vital signs: Vital Signs Temp 97.9 F 10/27/20 08:00 Pulse 78 10/27/20 10:00 Resp 20 10/27/20 10:00 BP 114/63 10/27/20 10:00 Pulse Ox 95 10/27/20 10:00 Intake & Output 10/26/20 10/27/20 10/27/20 18:59 06:59 18:59 Intake Total 1080 820 320 Output Total 449 4090 400 Balance 631 -3270 -80 Weight 78 kg Intake: IV 1080 580 320 D5-0.45% NaCl with KCl 480 480 120 20Meq/l 1,000 ml @ 40 mls /hr IV .Q24H [facility]LEEN Rx#: [id number] Piperacillin-Tazobactam 3 200 100 100 .375 gm In Sodium Chloride 0.9% 100 ml @ 25 mls/hr IVPB Q8HR [facility]LE[facility] Rx# :[id number] Potassium Chloride 10 meq 200 100 In Water For Injection 1 100ml.bag @ 100 mls/hr IVPB Q1H [facility]LE[facility] Rx#: [id number] metroNIDAZOLE-NS PMX 500 200 mg In Saline 1 100ml.bag @ 100 mls/hr IVPB Q8H KATHLEEN Rx#:[id number] Oral 240 Output: Drainage 0 Right Abdomen 0 Urine 389 4090 400 Stool 60 Other: Voiding Method Indwelling Catheter Indwelling Catheter Indwelling Catheter - Labs CBC & Chem 7: 10/27/20 05:17 10/27/20 05:17 Labs: Abnormal Lab Results - Last 24 Hours (Table) 10/27/20 10/27/20 Range/Units 05:17 05:17 RBC 4.16 L (4.30-5.90) m/uL Hgb 12.1 L (13.0-17.5) gm/dL Hct 37.5 L (39.0-53.0) % Lymphocytes # 0.7 L (1.0-4.8) k/uL Sodium 134 L (137-145) mmol/L Glucose 102 H (74-99) mg/dL Calcium 7.9 L (8.4-10.2) mg/dL Total Protein 4.7 L (6.3-8.2) g/dL Albumin 2.2 L (3.5-5.0) g/dL Microbiology - Last 24 Hours (Table) 10/20/20 17:45 Blood Culture - Final Blood No Growth after 144 hours 10/20/20 18:00 Blood Culture - Final Blood No Growth after 144 hours
[2020-10-27] MEDS ORDERED: FUROSEMIDE 10 MG/ML 4 ML VIAL IV ONE (16:00)
[2020-10-27] MEDS: D5-0.45% NACL WITH KCL 20MEQ/L 1,000 ML IV SCH ×2 (19:10→19:48)
[2020-10-27] MEDS: SODIUM CHLORIDE 0.9% 1,000 ML IV SCH (19:49)
[2020-10-27] MEDS: TAMSULOSIN 0.4 MG CAP.ER.24H PO SCH (22:19)
--- NOTE | 2020-10-27 23:01 | PN ---
PROGRESS NOTE DATE OF SERVICE: 10/27/2020 REASON FOR FOLLOWUP: Secondary peritonitis from perforated bowel. INTERVAL HISTORY: Patient is currently afebrile. Patient is breathing comfortably. Denies having any chest pain, shortness of breath, cough. Abdominal pain is currently controlled. No nausea, no vomiting. PHYSICAL EXAMINATION: Blood pressure 107/62 with a pulse of 67, temperature 98. He is 95% on 2 L nasal cannula. General description is an elderly male lying in bed in no distress. Respiratory system: Unlabored breathing. Clear to auscultation anteriorly. Heart S1, S2. Regular rate and rhythm. ABDOMEN: Soft. No tenderness. LABS: Hemoglobin is 12.1, white count of 8.3, BUN of 16, creatinine 0.92. DIAGNOSTIC IMPRESSION AND PLAN: Patient with perforated sigmoid colon, status post diverting colostomy. Abdominal cultures with Enterococcus E coli Anaerobes. Patient is covered with Zosyn. White count is normal. Continue current antibiotics and monitor clinical course closely. Continue supportive care. MMODL / IJN: [id number] /
[2020-10-28] MEDS: PIPERACILLIN-TAZOBACTAM 3.375 GM in SODIUM CHLORIDE 0.9% 100 ML IVPB SCH ×4 (00:05→23:45)
[2020-10-28 05:30] LABS: Albumin 2.2 g/dL (3.5-5.0); Potassium 3.7 mmol/L (3.5-5.1); Total Bilirubin 0.6 mg/dL (0.2-1.3); Total Protein 4.5 g/dL (6.3-8.2)
[2020-10-28 05:37] LABS: Basophils % (A) 0 %; Eosinophils % (A) 0 %; HCT 36.9 % (39.0-53.0); HGB 12.1 gm/dL (13.0-17.5); Lymphocytes # (A) 0.8 k/uL (1.0-4.8); Lymphocytes % (A) 10 %; MCH 30.1 pg (25.0-35.0); MCHC 32.8 g/dL (31.0-37.0); MCV 91.7 fL (80.0-100.0); Mean Platelet Volume 8.5; Monocytes # (A) 0.5 k/uL (0-1.0); Monocytes % (A) 6 %; Neutrophils # (A) 6.7 k/uL (1.3-7.7); Neutrophils % (A) 81 %; Platelet Count 267 k/uL (150-450); RBC 4.02 m/uL (4.30-5.90); RDW 13.3 % (11.5-15.5); WBC 8.2 k/uL (3.8-10.6)
[2020-10-28] MEDS ORDERED: POTASSIUM CHLORIDE ER 20 MEQ TAB.ER PO STA (06:10)
[2020-10-28] MEDS: PANTOPRAZOLE 40 MG TABLET PO SCH (06:32)
[2020-10-28] MEDS: MEMANTINE 10 MG TAB PO SCH ×2 (08:29→20:23)
[2020-10-28] MEDS: METOPROLOL TARTRATE 25 MG TAB PO SCH ×2 (08:29→20:23)
[2020-10-28] MEDS: AMIODARONE 200 MG TAB PO SCH ×2 (08:29→20:23)
[2020-10-28] MEDS: APIXABAN 5 MG TAB PO SCH ×2 (08:30→20:23)
[2020-10-28] MEDS: FUROSEMIDE 10 MG/ML 4 ML VIAL IV SCH (08:30)
--- NOTE | 2020-10-28 08:32 | P.PN ---
Subjective Progress Note Date: 10/28/20 This is an 85-year-old male who presents to the emergency department, complaining of unable to urinate. The patient also has not had a bowel movement in 3 weeks. He apparently was recently admitted for constipation but then was discharged. The patient has a history of colitis. The patient apparently feels nauseated, and his abdomen is distended. He denies any vomiting. Denied any chest pain. He also denied any shortness of breath. He apparently was found have a perforated viscus, and underwent a Kumar's procedure by Dr. Dean. He is postop day #1. Dr. Dean called me yesterday and asked whether or not we could put the patient in the ICU overnight. He was concerned given the patient's age. In addition, in the process of evaluating the patient, the patient was found to have bilateral pulmonary emboli, moderate clot burden, right greater than left, and also bilateral lower extremity DVT. Because of the recent surgery, he cannot be heparinized. Apparently, the vascular surgeon was called, and at this point, no interventions are planned. The patient apparently has a history of CVA, hypertension, and chronic prostate disease. He is currently on lactulose, MiraLAX, multiple vitamins, Flomax, Namenda, and Zocor. He is resting comfortably in the ICU. He is on O2 at 2 L. He is getting dextrose, with half-normal saline, with 20 mEq of potassium at 125 mL an hour. I didn't passed onto the nurse, that may be vascular surgery would prefer to do a [place] filter. The patient is without distress. Progress note dated 10/22/2020. This is a 85-year-old male, who is postop day #2, status post Kumar's procedure, with sigmoid colectomy and end colostomy, for perforated sigmoid colon and fecal impaction. The patient was also discovered have bilateral DVTs, and bilateral pulmonary emboli, right greater than left, with moderate clot burden. The patient's currently on IV heparin, weight based protocol, D5.45, with 20 of potassium, 125 mL an hour, and O2 at 2 L. The patient has a history of CVA, BPH, dementia, hyperlipidemia, essential hypertension and chronic cons tipation. Surprisingly, the patient seemed be doing relatively well. I did ask vascular surgery whether or not a [place] filter would be appropriate given the fact that he was at high risk for anticoagulation given his age. Initially, the surgeon did not want to start blood thinners because of the recent surgery. Currently, from the clinical standpoint, he is doing well. White count 8.8, h emoglobin 11.3, hematocrit 35.5, and platelet count 209,000. PTT is 45.7. Sodium 133, potassium 4.4, chlorides 106, CO2 23, anion gap 4, BUN 26, and creatinine 0.79. Progress note dated 10/23/2020. 85-year-old male, who is postop day #3, status post Kumar's procedure, with sigmoid colectomy, and end colostomy, for perforated sigmoid colon and fecal impaction. In addition, at the time of his initial evaluation, he was found to have bilateral DVT, and also, bilateral pulmonary emboli, right greater than left, with moderate clot burden. Currently, the patient continues on 2 L nasal cannula. He is on heparin via weightbase protocol. He is also getting dextrose with half-normal saline with 20 mEq of potassium chloride, at 75 mL an hour, to be reduced down to 40 mL an hour. In addition, the patient received Lasix 40 mg IV push 1. The patient was also on saline at 75 mL an hour, but that IV was discontinued. His weight has jumped, and is receiving much more fluid than urine output. Also, unfortunately, we're all set to discharge the patient to the general medical floor without telemetry, where he developed atrial fibrillation with RVR, was started on a Cardizem drip, and given some beta jerry. Also, initially, the surgeon did not want the patient on blood thinners, but did change his mind, and currently the patient is on heparin. On 10/24/2020 the patient is being seen in follow-up in the intensive care unit. The patient is postop day #4. The patient underwent a sigmoid colectomy and end colostomy and the patient has a Kumar pouch. He presented to the hospital because of constipation and patient was found to have perforated sigmoid colon with fecal impaction. Abdominal wound cultures growing E. coli in addition to Enterococcus faecalis and fisherman the patient is on a combination of Zosyn and Flagyl. Over the past 24 hours, the patient went into atrial fibrillation with rapid ventricular response. His blood pressure also became somewhat hypotens lianne. He was placed on a combination of norepinephrine for blood pressure support and is currently running at 0.09 mcg/kg per minute. The patient was also started on Cardizem drip initially at 10 mg an hour and currently is also on amiodarone drip at 0.5 mg per minute. Current heart rate is around 107 and is still irregular. Most recent blood pressure is 93/61. He is producing urine output. He is awake and alert and currently is on oxygen at 2 L per minute. He continues to have edema both in the upper and lower extremities more so on the right as the patient had a previous CVA on the right. Abdomen is nondistended. Bowel sounds are sluggish. Colostomy site is viable and the tissue looks healthy. Minimal amount of liquid collecting in the colostomy bag. Bowel sounds are hypoactive. Abdomen is nondistended.The white cell count is at 12.3 with a hemoglobin of 11.8. The patient remains on IV heparin as the patient has a new onset atrial fibrillation. The patient also has bilateral lower extremity DVT. His PTT is therapeutic for now. The patient is being given clear liquid diet. The patient is also using incentive spirometer. He is awake and alert and communicating. Discussed the case with cardiology and there is a constellation for cardioversion due to his ongoing atrial fibrillation with rapid ventricular response despite being on a Cardizem drip and amiodarone. His level is good ejection fraction has been within normal limits. He is on IV fluids at the rate of 50 mL an hour of D5 half-normal with potassium supplements. On 10/25/2020 I'm seeing the patient in follow-up in intensive care unit. The patient is postop day #5 following a sigmoid colectomy and end colostomy and Kumar's pouch. The patient is also infected. Abdominal cultures showed E. c devin and Enterococcus faecalis and fascial and the patient remains on a combination of Zosyn and Flagyl. Note that anaerobic bacteria is also growing in the abdominal wounds. As such, this is a polymicrobial growth related to bowel perforation. The patient is currently extubated and he is hemodynamically stable. Nevertheless, the active issue for now is his atrial fibrillation with rapid ventricular response and his heart rate is in the 150 range, irregular despite being on a combination of Cardizem drip and amiodarone. The patient was switched to oral amiodarone and subsequently earlier this morning he was switched back to amiodarone drip at 1 mg an hour and he was given 150 mg bolus and the plan is to proceed with cardioversion because of his persistent atrial fibrillation. He remains on IV heparin for now. The patient is also on D5 half-normal saline with potassium supplements running at or cc an hour. Significant amount of fluid overload yesterday with extensive edema in all 4 extremities and the patient was given a dose of Lasix and the neck fluid balance over the past 24 hours has been -1 L. He is afebrile. He is on norepinephrine infusion which is running at 0.04 mcg/kg per minute.. The white cell count of 13.2 with hemoglobin 11.9. PTT is therapeutic at 73. The rest of the blood work and electrodes are all within normal limits. As for the ileus, the patient has some vague abdominal distention yesterday and the left arm of the abdomen showed a component of ileus. Overnight, he was not passing any gas and subsequently he had large amount of gas collecting in the colostomy bag and he seems to be somewhat deflated. Bowel sounds remain hypoactive at this point in time. The patient remains nothing by mouth. She is awake and alert and oriented. Following commands appropriately. He is postop day #5. Clinically, slightly more lethargic compared to yesterday, yet very much appropriate and responsive. 10/26/2020 the patient is comfortable awake and alert on room air oxygen. Is postop day #6 following a sigmoid colectomy and colostomy and Kumar's pouch. He has a Carranza microbial abdominal infection with anaerobes, E. coli and enterococcus and the patient is still on a combination of Zosyn and Flagyl. Meanwhile, he was having issues with atrial fibrillation with rapid ventricular response that was very difficult to control. The patient underwent cardioversion. He is currently off the Cardizem drip. He is off the pressors and the patient has been taken off the norepinephrine infusion. Currently is only on IV heparin infusion. His cardiac rhythm is sinus for now. He is off pressors. He is on Lasix 40 mg to 24 hours and the dose was increased up to twice a day by cardiology. While, his ileus has subsided and the patient is pr oducing stool and the patient is taking some soft diet today. In terms of rate control, is on a Toprol 25 mg by mouth twice a day and amiodarone 400 mg by mouth twice a day. IV heparin is still on board for now. Surgical wound site is dry clean and intact. DONOVAN drain output from the right side is serous and minimal output at this point in time. Is awake and alert. No other significant issues for now. Fluid balance over the past 24 hours has been negative and the patient has been able to achieve a negative fluid balance and is improving in terms of his edema. On 10/27/2020 patient seen in follow-up in intensive care unit, he is awake and alert, oriented 3, denies any worsening dyspnea, he is currently on room air pulse ox is 94%, vital signs are stable, he has had no fever or chills. remains on Zosyn for sepsis related to bowel perforation. Tolerating oral diet. Colostomy is with soft brown stool, abdomen soft. Vitals stable, remains in sinus with controlled rate, [facility] continues on oral Amio 400 mg BID On 10/28/2020 patient seen in follow-up in the intensive care unit. Patient is awake and alert, oriented 3, resting comfortably in bed, denies any dyspnea, breathing comfortably, eventually liters of oxygen pulse ox of 96%, on sounds are clear, he is working on his aspirin, she will 8620-1356 ml on incentive spirometer today. Denies any abdominal pain, his left lower quadrant colostomy seems soft brown output, patient is tolerating regular diet, no nausea no vomiting. He remains on diuretics in the form of Lasix 40 mg once daily, he is in -1.2 L of her last 24 hours. Generalized edema is improving. Chest x-ray shows left lower lobe atelectasis with associated small pleural effusion, and mild interstitial changes. His labs have been reviewed, white blood cell count is 8.2, hemoglobin is 12.1, sodium is 133, potassium is 3.7, renal profile is within normal limits. Has had no fever or chills, he remains on Zosyn for intraabdominal sepsis related to bowel perforation. Objective - Vital Signs Vital signs: Vital Signs Temp 98.1 F 10/28/20 04:00 Pulse 52 L 10/28/20 04:00 Resp 13 03/05/21 04:00 BP 118/55 10/28/20 04:00 Pulse Ox 96 10/28/20 04:00 Intake & Output 10/27/20 10/28/20 10/28/20 18:59 06:59 18:59 Intake Total 1040 920 Output Total 1620 1600 Balance -580 -680 Weight 76 kg Intake: IV 560 920 .9 80 D5-0.45% NaCl with KCl 360 600 20Meq/l 1,000 ml @ 40 mls /hr IV .Q24H KATHLEEN Rx#: [id number] Piperacillin-Tazobactam 3 100 200 .375 gm In Sodium Chloride 0.9% 100 ml @ 25 mls/hr IVPB Q8HR KATHLEEN Rx# :[id number] Potassium Chloride 10 meq 100 In Water For Injection 1 100ml.bag @ 100 mls/hr IVPB Q1H KATHLEEN Rx#: [id number] Sodium Chloride 0.9% 1, 40 000 ml @ 20 mls/hr IV . Q24H KATHLEEN Rx#:[id number] Oral 480 Output: Drainage 0 0 Right Abdomen 0 0 Urine 1620 1300 Stool 300 Other: Voiding Method Indwelling Catheter Indwelling Catheter - Exam - Constitutional General appearance: Present: average body habitus, cooperative - EENT Eyes: Present: PERRLA, poor dentition, normal appearance ENT: Present: NA/AT Ears: bilateral: normal - Neck Neck: Present: normal ROM - Respiratory Respiratory: bilateral: diminished - Cardiovascular Rhythm: regular Heart sounds: normal: S1, S2 - Peripheral edema leg Peripheral Edema: bilateral: 1+ ankle Peripheral Edema: bilateral: 1+ foot Peripheral Edema: bilateral: 1+ - Peripheral pulses dorsalis pedis Peripheral Pulses: bilateral: Normal - Gastrointestinal General gastrointestinal: Present: normal bowel sounds - Integumentary Integumentary: Present: normal turgor - Neurologic Neurologic: Present: CNII-XII intact - Musculoskeletal Musculoskeletal: Present: generalized weakness, strength equal bilaterally - Psychiatric Psychiatric: Present: A&O x's 3, appropriate affect, intact judgment & insight - Additional findings Additional findings: left lower quadrant colostomy with soft brown output - Labs CBC & Chem 7: 10/28/20 04:30 10/28/20 04:30 Labs: Abnormal Lab Results - Last 24 Hours (Table) 10/28/20 10/28/20 Range/Units 04:30 04:30 RBC 4.02 L (4.30-5.90) m/uL Hgb 12.1 L (13.0-17.5) gm/dL Hct 36.9 L (39.0-53.0) % Lymphocytes # 0.8 L (1.0-4.8) k/uL Sodium 133 L (137-145) mmol/L Glucose 100 H (74-99) mg/dL Calcium 8.0 L (8.4-10.2) mg/dL Total Protein 4.5 L (6.3-8.2) g/dL Albumin 2.2 L (3.5-5.0) g/dL Assessment and Plan Plan: Assessment: 1 Postop day # 8, status post Kumar's procedure, with sigmoid colectomy and end colostomy, for perforated sigmoid colon and fecal impaction. The intra- abdominal cultures showed E. coli in addition to enterococcus fascia and faecalis and the patient remains on examination of Zosyn and Flagyl. The patient also has some anaerobes growing in the abdominal wound and antibiotic coverage remain the same. Currently off pressors. The patient is a broad- spectrum antibiotics. His colostomy site is functionally the patient is producing adequate amount of stool and the patient is on soft diet at this point in time. 2 Bilateral pulmonary emboli, right greater than left, with moderate clot burden, currently on IV heparin, PTT is therapeutic and the PICC line was placed and flushed with TPA yesterday for some difficulties with clogging 3 Bilateral lower extremity DVT, currently on IV heparin 4 New onset atrial fibrillation with rapid ventricular response, post successful cardioversion in his back to normal sinus rhythm. She is currently on metoprolol. He is currently off pressors. He remains on IV heparin. 5 History of CVA. 6 History of BPH. 7 History of dementia. 8 History of hyperlipidemia. 9 History of hypertension. 10 History of chronic constipation. 11 ileus improving with stool output and gas in the last and the back in the colostomy is functional and the patient is able to tolerate soft diet. Plan: Continue diuretics, Lasix to 40 mg IVP daily, continue antibiotics, oral anticoagulation. Incentive spirotmetry, increase activity as tolerated. Monitor electrolytes and renal profile. GI and DVt prophylaxis. May transfer the patient to medical surgical floor with remote telemetry today I performed a history & physical examination of the patient and discussed their management with my nurse practitioner, Indu Melton. I reviewed the nurse practitioner's note and agree with the documented findings and plan of care. Lung sounds are positive for clear breath sounds. The findings and the impression was discussed with the patient. I attest to the documentation by the nurse practitioner. Time with Patient: Less than 30
[2020-10-28] MEDS: SODIUM CHLORIDE 0.9% 1,000 ML IV SCH (08:39)
[2020-10-28] MEDS: polyethylene glycoL 3350 17 GM POWD.PACK PO SCH (08:40)
--- NOTE | 2020-10-28 09:06 | P.PN ---
Subjective HISTORY OF PRESENTING ILLNESS This is a pleasant 85-year-old male past medical history significant for hyperlipidemia, prior stroke, hypertension, who presented secondary to abdominal pain, no bowel movement for 3 weeks and constipation. He had a CAT scan performed which showed incidental PE as well. CAT scan abdomen and pelvis showed concern of perforated bowel and patient was taken to the OR with Kumar's procedure performed. Patient had been doing fairly well up until yesterday when he had atrial fibrillation with RVR with heart rates in the 160s. Patient was placed on a Cardizem drip as well as amiodarone drip with improvement in the heart rate to 100s to 1:15. He denies any chest pain or pressure. He remains on antibiotics for his sepsis and perforated bowel. With A. fib he was somewhat hypotensive and therefore placed on norepinephrine as well. He remains grossly edematous and additional dose of Lasix was ordered for today. He does have significant right upper extremity and scrotal edema. 10/25/2020 Patient seen and examined. Patient was transitioned from IV amiodarone to by mouth amiodarone yesterday however heart rates have been elevated at 130s to 140s. Patient with continued need for vasopressors. Patient denies any chest pain or pressure. He is still grossly edematous. He has been receiving IV Lasix 3 Patient seen and examined. Cardioverted yesterday and in sinus rhythm today. Levophed was able to be weaned since cardioversion. No chest pain, pressure. No SOB. Remains weak. Grossly edematous however albumin 2.0. WBC down to 9.6. 10/27/20 Patient seen and examined. Patient remains off of vasopressors. Systolic blood pressures in the low 100s. He denies any chest pain, pressure, shortness breath. Still remains very weak. Patient was given additional dose of Lasix yesterday with -2.6 L, unclear if intakes were accurate. Albumin remains low however 2.2 yesterday. White count continues to come down to 8.3. Patient was taken off of heparin drip and transitioned to DVT/PE dosing of Eliquis. 10/28/20 Patient seen and examined. Patient receive extra dose of Lasix with sinus approximately 1200 mL the last 24 hours. He believes mildly increased swelling. He appears in better spirits smiling. Still admits to some shortness breath and ability as well as some abdominal pain. PHYSICAL EXAMINATION Blood pressure 102/51 heart rate 62 afebrile and maintaining oxygen saturation on 2L NC. CONSTITUTIONAL: No apparent distress. HEENT: Head is normocephalic. Pupils are equal, round. Sclerae anicteric. Mucous membranes of the mouth are moist. No JVD. No carotid bruit. CHEST EXAMINATION: Lungs are clear to auscultation. No chest wall tenderness is noted on palpation or with deep breathing. HEART EXAMINATION: regularly rate and rhythm. S1, S2 heard. No murmurs, gallops or rub. ABDOMEN: Soft, nontender. Positive bowel sounds. EXTREMITIES: 2+ peripheral pulses, +gerneralized upper and lower extremity edema. NEUROLOGIC EXAMINATION: Patient is awake, alert. ASSESSMENT 1. Paroxysmal atrial fibrillation, currently sinus rhythm, status post cardioversion 2. Status post Kumar's procedure for perforated sigmoid colon 3. History of hypertension 4. Hypotension improved since cardioversion 5. History of CVA 6. Mild dementia 7. Bilateral pulmonary emboli 8. Bilateral lower extremity DVT 9. Mildly decreased ejection fraction 45-50% with findings concerning for grade 3 diastolic dysfunction. PLAN Continue with Eliquis for DVT/PE dosing. Patient remains in normal sinus rhythm on amiodarone 400mg bid currently. Patient hemodynamically appears stable. Patient's volume overload likely major component of 3rd spacing from protein calorie malnutrition. No further recommendations from a cardiology standpoint. Continue amiodarone 400 mg twice a day until 10/31/20 and then decrease to 200 mg twice a day. Please call with any questions. Objective - Vital Signs Vital signs: Vital Signs Temp 98.0 F 10/28/20 08:00 Pulse 63 10/28/20 08:00 Resp 12 10/28/20 08:00 BP 118/60 10/28/20 08:00 Pulse Ox 93 L 10/28/20 08:00 Intake & Output 10/27/20 10/28/20 10/28/20 18:59 06:59 18:59 Intake Total 1040 920 550 Output Total 1620 1600 250 Balance -580 -680 300 Weight 76 kg Intake: IV 560 920 300 .9 80 40 D5-0.45% NaCl with KCl 360 600 160 20Meq/l 1,000 ml @ 40 mls /hr IV .Q24H KATHLEEN Rx#: [id number] Piperacillin-Tazobactam 3 100 200 100 .375 gm In Sodium Chloride 0.9% 100 ml @ 25 mls/hr IVPB Q8HR KATHLEEN Rx# :[id number] Potassium Chloride 10 meq 100 In Water For Injection 1 100ml.bag @ 100 mls/hr IVPB Q1H KATHLEEN Rx#: [id number] Sodium Chloride 0.9% 1, 40 000 ml @ 20 mls/hr IV . Q24H KATHLEEN Rx#:[id number] Oral 480 250 Output: Drainage 0 0 0 Right Abdomen 0 0 0 Urine 1620 1300 250 Stool 300 Other: Voiding Method Indwelling Catheter Indwelling Catheter Indwelling Catheter - Labs CBC & Chem 7: 10/28/20 04:30 10/28/20 04:30 Labs: Abnormal Lab Results - Last 24 Hours (Table) 10/28/20 10/28/20 Range/Units 04:30 04:30 RBC 4.02 L (4.30-5.90) m/uL Hgb 12.1 L (13.0-17.5) gm/dL Hct 36.9 L (39.0-53.0) % Lymphocytes # 0.8 L (1.0-4.8) k/uL Sodium 133 L (137-145) mmol/L Glucose 100 H (74-99) mg/dL Calcium 8.0 L (8.4-10.2) mg/dL Total Protein 4.5 L (6.3-8.2) g/dL Albumin 2.2 L (3.5-5.0) g/dL
--- NOTE | 2020-10-28 09:13 | XR ---
EXAMINATION TYPE: XR chest 1V DATE OF EXAM: 10/28/2020 COMPARISON: Chest x-ray 10/25/2020 HISTORY: Shortness of breath TECHNIQUE: Single frontal view of the chest is obtained. FINDINGS: Left-sided PICC line is overlying the left subclavian vein level, patient is rotated. No e vident pneumothorax. Basilar density obscures the left hemidiaphragm, this blunting of the left chest phrenic angle. Interstitium is increased. Cardiac mediastinal silhouette is stable. IMPRESSION: Findings are similar to prior exam, correlate for left lower lobe pneumonia versus edema , atelectasis, effusion. There may be a component of interstitial edema, interstitial lung disease
--- NOTE | 2020-10-28 12:38 | P.PN ---
Subjective Progress Note Date: 10/28/20 CHIEF COMPLAINT: Pneumoperitoneum HISTORY OF PRESENT ILLNESS: Patient is currently in the ICU. He is status post sigmoid colectomy with end colostomy and manual fecal disimpaction for perforated sigmoid colon and fecal impaction on 10/20/20. Patient's ostomy is functioning. He has having stool and flatus through the ostomy. He denies any nausea or vomiting. He is status post cardioversion and remains in normal sinus rhythm. He does have generalized edema with low albumin. He is tolerating his low fiber diet. Vascular has switched patient to Eliquis for anticoagulation for his PE and DVT. Afebrile. WBC8.3 Hgb 12.1 albumin 2.2 PHYSICAL EXAM: VITAL SIGNS: Reviewed. GENERAL: Well-developed in no acute distress. HEENT: No sclera icterus. Extraocular movements grossly intact. Moist buccal mucosa. Head is atraumatic, normocephalic. ABDOMEN: Soft. Nondistended. Incision dressing small amount of blood at the distal aspect of the dressing. Stoma is pink. There is stool and air present in ostomy bag. DONOVAN drain minimal serosanguineous fluid NEUROLOGIC: Alert and oriented. Cranial nerves II through XII grossly intact. ASSESSMENT: 1. Perforated sigmoid colon and fecal impaction status post sigmoid colectomy with end colostomy and manual fecal disimpaction, postop day #7 2. Sepsis secondary to Peritonitis present on admission 3. Severe protein calorie malnutrition PLAN: -Continue ICU management -Continue supportive care -Continue low fiber diet -Discontinue DONOVAN drain -Continue IV antibiotics per ID -Ensure 3 times a day -Encourage incentive spirometer use Physician Junior Electrical Engineer note has been reviewed by physician. Signing provider agrees with the documented findings, assessment, and plan of care. Objective - Vital Signs Vital signs: Vital Signs Temp 98.1 F 10/28/20 12:00 Pulse 71 10/28/20 12:00 Resp 16 10/28/20 12:00 BP 90/49 10/28/20 12:00 Pulse Ox 96 10/28/20 12:00 Intake & Output 10/27/20 10/28/20 10/28/20 18:59 06:59 18:59 Intake Total 2992 622 8828 Output Total 1620 1600 950 Balance -580 -680 50 Weight 76 kg 76 kg Intake: IV 560 920 500 .9 80 80 D5-0.45% NaCl with KCl 360 600 320 20Meq/l 1,000 ml @ 40 mls /hr IV .Q24H KATHLEEN Rx#: [id number] Piperacillin-Tazobactam 3 100 200 100 .375 gm In Sodium Chloride 0.9% 100 ml @ 25 mls/hr IVPB Q8HR KATHLEEN Rx# :[id number] Potassium Chloride 10 meq 100 In Water For Injection 1 100ml.bag @ 100 mls/hr IVPB Q1H KATHLEEN Rx#: [id number] Sodium Chloride 0.9% 1, 40 000 ml @ 20 mls/hr IV . Q24H KATHLEEN Rx#:[id number] Oral 480 500 Output: Drainage 0 0 0 Right Abdomen 0 0 0 Urine 1620 1300 950 Stool 300 Other: Voiding Method Indwelling Catheter Indwelling Catheter Indwelling Catheter - Labs CBC & Chem 7: 10/28/20 04:30 10/28/20 04:30 Labs: Abnormal Lab Results - Last 24 Hours (Table) 10/28/20 10/28/20 Range/Units 04:30 04:30 RBC 4.02 L (4.30-5.90) m/uL Hgb 12.1 L (13.0-17.5) gm/dL Hct 36.9 L (39.0-53.0) % Lymphocytes # 0.8 L (1.0-4.8) k/uL Sodium 133 L (137-145) mmol/L Glucose 100 H (74-99) mg/dL Calcium 8.0 L (8.4-10.2) mg/dL Total Protein 4.5 L (6.3-8.2) g/dL Albumin 2.2 L (3.5-5.0) g/dL
--- NOTE | 2020-10-28 15:46 | P.PN ---
Subjective Progress Note Date: 10/28/20 Principal diagnosis: Pneumoperitoneum Perforated sigmoid colon and fecal impaction status post sigmoid colectomy with end colostomy and manual fecal disimpaction, postop day #7 Sepsis secondary to Peritonitis present on admission Severe protein calorie malnutrition 85 years old male with past medical history of CVA/TIA, hypertension, residual right hemiparesis. He was admitted with abdominal pain and CAT scan of the abdomen showing free air and free fluid. He underwent exploratory laparotomy with sigmoid colectomy and colostomy and manual disimpaction Also on CT of the abdomen there was suspicion of PE which was shown on CT of the chest to have bilateral PE and bilateral lower extremity DVT on ultrasound of the lower extremities. Patient currently is on heparin drip. Echocardiogram: Showed ejection fraction of 45-50% with slight apical hypokinesia. Vascular surgery with Dr. Kang were consulted and they recommended to continue with heparin drip and this patient bleeds then IVC filter would be indicated per their recommendation. Patient is currently covered with Zosyn and ID team on the case 10/28/2020 Patient is seen and evaluated sitting up in bedside chair in the ICU. Patient is is status post sigmoid colectomy with end colostomy and manual fecal disimpaction for perforated sigmoid colon and fecal impaction on 10/20/20. Caitlyn ent's ostomy is functioning. He has having stool and flatus through the ostomy. He denies any nausea or vomiting. He is status post cardioversion and remains in normal sinus rhythm. He does have generalized edema with low albumin. He is tolerating his low fiber diet. Vascular has switched patient to Eliquis for anticoagulation for his PE and DVT. Afebrile. WBC8.3 Hgb 12.1 albumin 2.2 Cardiology is on board for paroxysmal atrial fibrillation, remains in normal sinus rhythm on amiodarone 400 mg twice a day; patient is believed to be volume overloaded likely secondary to his third spacing from protein calorie malnutrition and received an extra dose of Lasix; continues to have fair urine output Objective - Vital Signs Vital signs: Vital Signs Temp 98.0 F 10/28/20 08:00 Pulse 63 10/28/20 08:00 Resp 12 10/28/20 08:00 BP 118/60 10/28/20 08:00 Pulse Ox 93 L 10/28/20 08:00 Intake & Output 10/27/20 10/28/2010/28/21 18:59 06:59 18:59 Intake Total 1040 920 550 Output Total 1620 1600 250 Balance -580 -680 300 Weight 76 kg Intake: IV 560 920 300 .9 80 40 D5-0.45% NaCl with KCl 360 600 160 20Meq/l 1,000 ml @ 40 mls /hr IV .Q24H KATHLEEN Rx#: [id number] Piperacillin-Tazobactam 3 100 200 100 .375 gm In Sodium Chloride 0.9% 100 ml @ 25 mls/hr IVPB Q8HR KATHLEEN Rx# :[id number] Potassium Chloride 10 meq 100 In Water For Injection 1 100ml.bag @ 100 mls/hr IVPB Q1H KATHLEEN Rx#: [id number] Sodium Chloride 0.9% 1, 40 000 ml @ 20 mls/hr IV . Q24H KATHLEEN Rx#:[id number] Oral 480 250 Output: Drainage 0 0 0 Right Abdomen 0 0 0 Urine 1620 1300 250 Stool 300 Other: Voiding Method Indwelling Catheter Indwelling Catheter Indwelling Catheter - Exam CONSTITUTIONAL: No apparent distress. HEENT: Head is normocephalic. Pupils are equal, round. Sclerae anicteric. Mucous membranes of the mouth are moist. No JVD. No carotid bruit. CHEST EXAMINATION: Lungs are clear to auscultation. No chest wall tenderness is noted on palpation or with deep breathing. HEART EXAMINATION: regularly rate and rhythm. S1, S2 heard. No murmurs, gallops or rub. ABDOMEN: Soft, nontender. Positive bowel sounds. EXTREMITIES: 2+ peripheral pulses, +gerneralized upper and lower extremity edema. NEUROLOGIC EXAMINATION: Patient is awake, alert. - Labs CBC & Chem 7: 10/28/20 04:30 10/28/20 04:30 Labs: Abnormal Lab Results - Last 24 Hours (Table) 10/28/20 10/28/20 Range/Units 04:30 04:30 RBC 4.02 L (4.30-5.90) m/uL Hgb 12.1 L (13.0-17.5) gm/dL Hct 36.9 L (39.0-53.0) % Lymphocytes # 0.8 L (1.0-4.8) k/uL Sodium 133 L (137-145) mmol/L Glucose 100 H (74-99) mg/dL Calcium 8.0 L (8.4-10.2) mg/dL Total Protein 4.5 L (6.3-8.2) g/dL Albumin 2.2 L (3.5-5.0) g/dL Assessment and Plan Assessment: -Bowel/sigmoid perforation status post exploratory laparotomy, sigmoid colectomy and colostomy with manual fecal disimpaction -Bilateral pulmonary emboli secondary to bilateral DVT. With no evidence of RV citrine on CT or echo -Mild hypoxic respiratory failure -Atrial fibrillation with RVR -Secondary peritonitis -History of CVA with right hemiparesis -Hypertension Plan: This is a pleasant 85 years old male who presents with bowel obstruction and perforation status post sigmoid colectomy and colostomy. Also has bilateral PE/DVT. Currently he is kept on heparin drip with close monitoring for signs of rebleeding with vascular surgery close monitoring the case to place IVC filter. Patient cannot tolerate anticoagulation consult cardiology for A. fib. Continue with metoprolol Patient also followed by electrical project manager, infectious disease and surgery primary team He kept on broad-spectrum antibiotic in the form of Zosyn, gentle hydration Continue same treatment. Continue with symptomatic treatment. Resume home medication. Monitor lytes and vitals. DVT and GI prophylaxis. Further recommendationsas per clinical course of the patient DVT prophylaxis: heparin GI Prophylaxis: Pepcid Prognosis is guarded
--- NOTE | 2020-10-28 17:11 | PN ---
PROGRESS NOTE DATE OF SERVICE: 10/28/2020 REASON FOR FOLLOWUP: Abdominal abscess, perforated bowel. INTERVAL HISTORY: The patient is currently afebrile. The patient is breathing comfortably. Denies any chest pain. No shortness of breath or cough. Abdominal pain is currently controlled. No nausea, vomiting or diarrhea. Tolerating his diet. PHYSICAL EXAMINATION: Blood pressure is 91/46. Pulse 69, temperature 98. He is 94% on room air. General description is an elderly male up in the chair in no distress. Respiratory system: Unlabored breathing, clear to auscultation anteriorly. Heart S1, S2. Regular rate and rhythm. Abdomen soft, no tenderness. LABORATORY DATA: Hemoglobin 12.1, white count 8.2, BUN of 20, creatinine 1.15. DIAGNOSTIC IMPRESSION AND PLAN: Patient with abdominal abscess from perforated bowel, status post diverting colostomy abdominal culture with E coli, Enterococcus, anaerobes in this patient covered with Zosyn. White count normal. Continue supportive care. MMODL / IJN: [id number] /
[2020-10-28] MEDS: D5-0.45% NACL WITH KCL 20MEQ/L 1,000 ML IV SCH ×2 (19:02→20:58)
[2020-10-28] MEDS: TAMSULOSIN 0.4 MG CAP.ER.24H PO SCH (20:23)
[2020-10-29] MEDS: PANTOPRAZOLE 40 MG TABLET PO SCH (07:01)
[2020-10-29] MEDS: PIPERACILLIN-TAZOBACTAM 3.375 GM in SODIUM CHLORIDE 0.9% 100 ML IVPB SCH ×3 (09:04→23:17)
[2020-10-29] MEDS: AMIODARONE 200 MG TAB PO SCH ×2 (09:05→20:50)
[2020-10-29] MEDS: APIXABAN 5 MG TAB PO SCH ×2 (09:05→20:50)
[2020-10-29] MEDS: METOPROLOL TARTRATE 25 MG TAB PO SCH ×2 (09:05→20:51)
[2020-10-29] MEDS: MEMANTINE 10 MG TAB PO SCH ×2 (09:06→20:51)
[2020-10-29] MEDS: FUROSEMIDE 10 MG/ML 4 ML VIAL IV SCH (09:06)
[2020-10-29] MEDS: SODIUM CHLORIDE 0.9% 1,000 ML IV SCH ×2 (09:28→15:24)
--- NOTE | 2020-10-29 11:17 | P.PN ---
Progress Note - Text Progress Note Date: 10/29/20 Patient states he feels better. On exam vital signs are stable. Abdomen soft. Colostomy is functioning. Status post Luc procedure for fecal impaction with perforation. Patient will continue receive supportive care. He will have his diet advanced slowly.
--- NOTE | 2020-10-29 12:03 | P.PN ---
Subjective Progress Note Date: 10/29/20 on 10/29/2020 I'm seeing the patient in follow-up. The patient is postop day #9, the patient underwent sigmoid colectomy and colostomy and Kumar's pouch. He is doing well. He remains on Zosyn and Flagyl. He is tolerating his diet. He has positive output and his colostomy bag which is essentially functional and the patient has a clean wound. He is on no pressors. He is requiring Lasix 40 mg daily and the patient remains in a negative fluid balance and he is producing adequate amount of urine output and the swelling is also improving. He continues to have a DONOVAN drain in his right abdomen. His cardiac rhythm is sinus. He is back on anticoagulation. He got cardioverted and the patient is maintained on a combination of amiodarone and Toprol. No other significant events. He got transferred out of the intensive care unit yesterday. He is on room air oxygen. Objective - Vital Signs Vital signs: Vital Signs Temp 98.0 F 10/29/20 08:00 Pulse 60 10/29/20 11:21 Resp 18 10/29/20 11:21 BP 103/52 10/29/20 11:21 Pulse Ox 96 10/29/20 11:21 Intake & Output 10/28/20 10/29/20 10/29/20 18:59 06:59 18:59 Intake Total 1550 340 360 Output Total 1925 1450 1350 Balance -375 -1110 -990 Weight 76 kg 73.7 kg Intake: IV 800 .9 120 D5-0.45% NaCl with KCl 480 20Meq/l 1,000 ml @ 40 mls /hr IV .Q24H KATHLEEN Rx#: [id number] Piperacillin-Tazobactam 3 200 .375 gm In Sodium Chloride 0.9% 100 ml @ 25 mls/hr IVPB Q8HR KATHLEEN Rx# :[id number] Intake, IV Titration 40 Amount D5-0.45% NaCl with KCl 40 20Meq/l 1,000 ml @ 40 mls /hr IV .Q24H KATHLEEN Rx#: [id number] Oral 750 300 360 Output: Drainage 0 0 0 Right Abdomen 0 0 0 Urine 1925 1150 1050 Stool 300 300 Other: Voiding Method Indwelling Catheter Indwelling Catheter Indwelling Catheter - Exam - Exam - Constitutional General appearance: Present: average body habitus, cooperative - EENT Eyes: Present: PERRLA, poor dentition, normal appearance ENT: Present: NA/AT Ears: bilateral: normal - Neck Neck: Present: normal ROM - Respiratory Respiratory: bilateral: diminished - Cardiovascular Rhythm: regular Heart sounds: normal: S1, S2 - Peripheral edema leg Peripheral Edema: bilateral: 1+ ankle Peripheral Edema: bilateral: 1+ foot Peripheral Edema: bilateral: 1+, the patient is a PICC line in the left upper extremity, right upper extremities more swollen compared to the left as the patient has had a previous CVA and 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 - Peripheral pulses dorsalis pedis Peripheral Pulses: bilateral: Normal - Gastrointestinal General gastrointestinal: Present: normal bowel sounds - Integumentary Integumentary: Present: normal turgor - Neurologic Neurologic: Present: CNII-XII intact - Musculoskeletal Musculoskeletal: Present: generalized weakness, strength equal bilaterally - Psychiatric Psychiatric: Present: A&O x's 3, appropriate affect, intact judgment & insight - Additional findings Additional findings: left lower quadrant colostomy with soft brown output - Labs CBC & Chem 7: 10/28/20 04:30 03 04:30 Assessment and Plan Plan: 1 Postop day # 9, status post Kumar's procedure, with sigmoid colectomy and end colostomy, for perforated sigmoid colon and fecal impaction. The intra- abdominal cultures showed E. coli in addition to enterococcus fascia and faecalis and the patient remains on examination of Zosyn and Flagyl. The patient also has some anaerobes growing in the abdominal wound and antibiotic coverage remain the same. lost some is functional and the patient is tolerating his diet. DONOVAN drain is in place. Abdominal wound is clear. 2 Bilateral pulmonary emboli, right greater than left, with moderate clot burden, currently on IV heparin, PTT is therapeutic and the PICC line was placed and flushed with TPA yesterday for some difficulties with cloggingmy the patient is back on Eliquis at a dose of 10 mg by mouth twice a day without any complications or bleeding 3 Bilateral lower extremity DVT, currently on Eliquis 4 New onset atrial fibrillation with rapid ventricular response, post successful cardioversion in his back to normal sinus rhythm. She is currently on metoprolol amiodarone and Eliquis 5 History of CVA. 6 History of BPH. 7 History of dementia. 8 History of hyperlipidemia. 9 History of hypertension. 10 History of chronic constipation. Plan: Continue metoprolol metoprolol and Eliquis. Lasix 40 mg every 24 hours IV Continue Zosyn and Flagyl Using incentive spirometer Continue incentive spirometer and the patient is pulling approximately thousand 1000 Monitor mental status , he is appropriate for now The patient's overall approving and he was transferred out of the intensive care unit. Advance diet as tolerated. Colostomy is functional. Abdominal wound is clear.
[2020-10-29] MEDS: polyethylene glycoL 3350 17 GM POWD.PACK PO SCH (12:37)
--- NOTE | 2020-10-29 16:44 | P.PN ---
Subjective Progress Note Date: 10/29/20 Principal diagnosis: Pneumoperitoneum Perforated sigmoid colon and fecal impaction status post sigmoid colectomy with end colostomy and manual fecal disimpaction, postop day #7 Sepsis secondary to Peritonitis present on admission Severe protein calorie malnutrition 85 years old male with past medical history of CVA/TIA, hypertension, residual right hemiparesis. He was admitted with abdominal pain and CAT scan of the abdomen showing free air and free fluid. He underwent exploratory laparotomy with sigmoid colectomy and colostomy and manual disimpaction Also on CT of the abdomen there was suspicion of PE which was shown on CT of the chest to have bilateral PE and bilateral lower extremity DVT on ultrasound of the lower extremities. Patient currently is on heparin drip. Echocardiogram: Showed ejection fraction of 45-50% with slight apical hypokinesia. Vascular surgery with Dr. Kang were consulted and they recommended to continue with heparin drip and this patient bleeds then IVC filter would be indicated per their recommendation. Patient is currently covered with Zosyn and ID team on the case 10/28/2020 Patient is seen and evaluated sitting up in bedside chair in the ICU. Patient is is status post sigmoid colectomy with end colostomy and manual fecal disimpaction for perforated sigmoid colon and fecal impaction on 10/20/20. Caitlyn ent's ostomy is functioning. He has having stool and flatus through the ostomy. He denies any nausea or vomiting. He is status post cardioversion and remains in normal sinus rhythm. He does have generalized edema with low albumin. He is tolerating his low fiber diet. Vascular has switched patient to Eliquis for anticoagulation for his PE and DVT. Afebrile. WBC8.3 Hgb 12.1 albumin 2.2 Cardiology is on board for paroxysmal atrial fibrillation, remains in normal sinus rhythm on amiodarone 400 mg twice a day; patient is believed to be volume overloaded likely secondary to his third spacing from protein calorie malnutrition and received an extra dose of Lasix; continues to have fair urine output 10/29/2020 Patient is seen and evaluated in room at bedside; has been transferred to selective care unit The patient is postop day #9, the patient underwent sigmoid colectomy and colostomy and Kumar's pouch. He is doing well. He remains on Zosyn and Flagyl. He is tolerating his diet. He has positive output and his colostomy bag which is essentially functional and the patient has a clean wound. He is on no pressors. He is requiring Lasix 40 mg daily and the patient remains in a negative fluid balance and he is producing adequate amount of urine output and the swelling is also improving. He continues to have a DONOVAN drain in his right abdomen. His cardiac rhythm is sinus. He is back on anticoagulation. He got cardioverted and the patient is maintained on a combination of amiodarone and Toprol. No other significant events. He got transferred out of the intensive care unit yesterday. He is on room air oxygen. Objective - Vital Signs Vital signs: Vital Signs Temp 98.0 F 10/29/20 08:00 Pulse 60 10/29/20 11:21 Resp 18 10/29/20 11:21 BP 103/52 10/29/20 11:21 Pulse Ox 96 10/29/20 11:21 Intake & Output 10/28/20 10/29/20 10/29/20 18:59 06:59 18:59 Intake Total 1550 340 Output Total 1925 1450 0 Balance -375 -1110 0 Weight 76 kg 73.7 kg Intake: IV 800 .9 120 D5-0.45% NaCl with KCl 480 20Meq/l 1,000 ml @ 40 mls /hr IV .Q24H KATHLEEN Rx#: [id number] Piperacillin-Tazobactam 3 200 .375 gm In Sodium Chloride 0.9% 100 ml @ 25 mls/hr IVPB Q8HR KATHLEEN Rx# :[id number] Intake, IV Titration 40 Amount D5-0.45% NaCl with KCl 40 20Meq/l 1,000 ml @ 40 mls /hr IV .Q24H KATHLEEN Rx#: [id number] Oral 750 300 Output: Drainage 0 0 0 Right Abdomen 0 0 0 Urine 1925 1150 Stool 300 Other: Voiding Method Indwelling Catheter Indwelling Catheter Indwelling Catheter - Exam CONSTITUTIONAL: No apparent distress. HEENT: Head is normocephalic. Pupils are equal, round. Sclerae anicteric. Mucous membranes of the mouth are moist. No JVD. No carotid bruit. CHEST EXAMINATION: Lungs are clear to auscultation. No chest wall tenderness is noted on palpation or with deep breathing. HEART EXAMINATION: regularly rate and rhythm. S1, S2 heard. No murmurs, gallops or rub. ABDOMEN: Soft, nontender. Positive bowel sounds. EXTREMITIES: 2+ peripheral pulses, +gerneralized upper and lower extremity edema. NEUROLOGIC EXAMINATION: Patient is awake, alert. - Labs CBC & Chem 7: 10/28/20 04:30 10/28/20 04:30 Assessment and Plan Assessment: -Bowel/sigmoid perforation status post exploratory laparotomy, sigmoid colectomy and colostomy with manual fecal disimpaction -Bilateral pulmonary emboli secondary to bilateral DVT. With no evidence of RV citrine on CT or echo -Mild hypoxic respiratory failure -Atrial fibrillation with RVR -Secondary peritonitis -History of CVA with right hemiparesis -Hypertension Plan: This is a pleasant 85 years old male who presents with bowel obstruction and perforation status post sigmoid colectomy and colostomy. Also has bilateral PE/DVT. Currently he is kept on heparin drip with close monitoring for signs of rebleeding with vascular surgery close monitoring the case to place IVC filter. Patient cannot tolerate anticoagulation consult cardiology for A. fib. Continue with metoprolol Patient also followed by seed cutter, infectious disease and surgery primary team He kept on broad-spectrum antibiotic in the form of Zosyn, gentle hydration Continue same treatment. Continue with symptomatic treatment. Resume home medication. Monitor lytes and vitals. DVT and GI prophylaxis. Further recommendationsas per clinical course of the patient DVT prophylaxis: heparin GI Prophylaxis: Pepcid Prognosis is guarded
[2020-10-29] MEDS: D5-0.45% NACL WITH KCL 20MEQ/L 1,000 ML IV SCH (20:50)
[2020-10-29] MEDS: TAMSULOSIN 0.4 MG CAP.ER.24H PO SCH (20:51)
[2020-10-30] MEDS: PANTOPRAZOLE 40 MG TABLET PO SCH (06:27)
[2020-10-30] MEDS: FUROSEMIDE 10 MG/ML 4 ML VIAL IV SCH (08:55)
[2020-10-30] MEDS: MEMANTINE 10 MG TAB PO SCH ×2 (08:55→21:11)
[2020-10-30] MEDS: APIXABAN 5 MG TAB PO SCH ×2 (08:55→21:10)
[2020-10-30] MEDS: PIPERACILLIN-TAZOBACTAM 3.375 GM in SODIUM CHLORIDE 0.9% 100 ML IVPB SCH ×3 (09:02→23:58)
[2020-10-30] MEDS: polyethylene glycoL 3350 17 GM POWD.PACK PO SCH (09:06)
[2020-10-30] MEDS: SODIUM CHLORIDE 0.9% 1,000 ML IV SCH (09:38)
--- NOTE | 2020-10-30 09:56 | P.PN ---
Subjective Progress Note Date: 10/30/20 10/30/2020, the patient is postop day #10 post colectomy and colostomy with Kumar's pouch. Still on same antibiotic coverage with Zosyn and Flagyl. Afebrile. Tolerating diet. White cell count at 8.2. He has a polymicrobial growth of the abdominal wound including enterococcus, E. coli and anaerobes. He is covered with appropriate antibiotic coverage. DONOVAN drain is in still in place. His cardiac rhythm is sinus. He is on a combination of metoprolol and amiodarone. He is on long-term medical condition with Eliquis. No bleeding complications. He is also taking diuretics and his fluid balance is negative around 1.4 L over the past 24 hours. Lasix is getting 40 mg by mouth on a daily basis. I'm quite happy with her with his negativity and fluid balance. He is using incentive spirometer.He is on room air oxygen. Objective - Vital Signs Vital signs: Vital Signs Temp 98.3 F 10/30/20 08:00 Pulse 73 10/30/20 08:00 Resp 16 10/30/20 08:00 BP 97/52 10/30/20 08:00 Pulse Ox 95 10/30/20 08:00 Intake & Output 10/29/20 10/30/20 10/30/20 18:59 06:59 18:59 Intake Total 820 380 Output Total 1555 925 Balance -735 -545 Weight 74.1 kg Intake: IV 100 120 D5-0.45% NaCl with KCl 120 20Meq/l 1,000 ml @ 40 mls /hr IV .Q24H [facility] Rx#: [id number] Piperacillin-Tazobactam 3 100 .375 gm In Sodium Chloride 0.9% 100 ml @ 25 mls/hr IVPB Q8HR [facility] Rx# :[id number] Intake, IV Titration 60 Amount Sodium Chloride 0.9% 1, 60 000 ml @ 20 mls/hr IV . Q24H [facility] Rx#:[id number] Oral 720 200 Output: Gastric Drainage 5 Drainage 0 0 Right Abdomen 0 0 Urine 1050 725 Stool 500 200 Other: Voiding Method Indwelling Catheter Indwelling Catheter - Exam - Exam - Constitutional General appearance: Present: average body habitus, cooperative - EENT Eyes: Present: PERRLA, poor dentition, normal appearance ENT: Present: NA/AT Ears: bilateral: normal - Neck Neck: Present: normal ROM - Respiratory Respiratory: bilateral: diminished - Cardiovascular Rhythm: regular Heart sounds: normal: S1, S2 - Peripheral edema leg Peripheral Edema: bilateral: 1+ ankle Peripheral Edema: bilateral: 1+ foot Peripheral Edema: bilateral: 1+, the patient is a PICC line in the left upper extremity, right upper extremities more swollen compared to the left as the patient has had a previous CVA and 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 - Peripheral pulses dorsalis pedis Peripheral Pulses: bilateral: Normal - Gastrointestinal General gastrointestinal: Present: normal bowel sounds - Integumentary Integumentary: Present: normal turgor - Neurologic Neurologic: Present: CNII-XII intact - Musculoskeletal Musculoskeletal: Present: generalized weakness, strength equal bilaterally - Psychiatric Psychiatric: Present: A&O x's 3, appropriate affect, intact judgment & insight - Additional findings Additional findings: left lower quadrant colostomy with soft brown output - Labs CBC & Chem 7: 10/28/20 04:30 10/28/20 04:30 Assessment and Plan Plan: 1 Postop day # 10, status post Kumar's procedure, with sigmoid colectomy and end colostomy, for perforated sigmoid colon and fecal impaction. The intra- abdominal cultures showed E. coli in addition to enterococcus fascia and faecalis and the patient remains on examination of Zosyn and Flagyl. The patient also has some anaerobes growing in the abdominal wound and antibiotic coverage remain the same. DONOVAN drain is in place. Abdominal wound is clear. 2 Bilateral pulmonary emboli, right greater than left, with moderate clot burden, currently on long-term and coagulation with Eliquis. 3 Bilateral lower extremity DVT, currently on Eliquis 4 New onset atrial fibrillation with rapid ventricular response, post successful cardioversion in his back to normal sinus rhythm. She is currently on metoprolol amiodarone and Eliquis 5 History of CVA. 6 History of BPH. 7 History of dementia. 8 History of hyperlipidemia. 9 History of hypertension. 10 History of chronic constipation. Plan: Continue metoprolol metoprolol and Eliquis. Lasix 40 mg every 24 hours by mouth with a negative fluid balance Repeat electrolytes as the patient is being diuresed and he may have some electrode disturbances He is eating a regular diet Continue Zosyn and Flagyl Using incentive spirometer Continue incentive spirometer and the patient is pulling approximately thousand 1000 Monitor mental status , he is appropriate for now The patient's overall condition is improving.
[2020-10-30 10:08] LABS: Basophils % (A) 0 %; Eosinophils # (A) 0.1 k/uL (0-0.7); Eosinophils % (A) 1 %; HCT 36.4 % (39.0-53.0); HGB 11.9 gm/dL (13.0-17.5); Lymphocytes % (A) 9 %; MCH 29.9 pg (25.0-35.0); MCHC 32.5 g/dL (31.0-37.0); MCV 91.7 fL (80.0-100.0); Mean Platelet Volume 7.9; Monocytes # (A) 0.4 k/uL (0-1.0); Monocytes % (A) 4 %; Neutrophils # (A) 10.1 k/uL (1.3-7.7); Neutrophils % (A) 86 %; Platelet Count 334 k/uL (150-450); RBC 3.97 m/uL (4.30-5.90); RDW 13.6 % (11.5-15.5); WBC 11.8 k/uL (3.8-10.6)
[2020-10-30 10:24] LABS: Potassium 3.6 mmol/L (3.5-5.1)
[2020-10-30] MEDS: AMIODARONE 200 MG TAB PO SCH ×2 (11:09→21:10)
[2020-10-30] MEDS: METOPROLOL TARTRATE 25 MG TAB PO SCH ×2 (11:09→21:11)
--- NOTE | 2020-10-30 17:02 | P.PN ---
Progress Note - Text Progress Note Date: 10/30/20 The patient appears to be doing well. He is in good spirits. He is tolerating a diet. On exam vital signs are stable. Abdomen soft. Colostomy dysfunction. Wound is clean. Patient will most likely be discharged home the next 24-48 hours.
--- NOTE | 2020-10-30 17:53 | P.PN ---
Subjective Progress Note Date: 10/30/20 Principal diagnosis: Pneumoperitoneum Perforated sigmoid colon and fecal impaction status post sigmoid colectomy with end colostomy and manual fecal disimpaction, postop day #7 Sepsis secondary to Peritonitis present on admission Severe protein calorie malnutrition 85 years old male with past medical history of CVA/TIA, hypertension, residual right hemiparesis. He was admitted with abdominal pain and CAT scan of the abdomen showing free air and free fluid. He underwent exploratory laparotomy with sigmoid colectomy and colostomy and manual disimpaction Also on CT of the abdomen there was suspicion of PE which was shown on CT of the chest to have bilateral PE and bilateral lower extremity DVT on ultrasound of the lower extremities. Patient currently is on heparin drip. Echocardiogram: Showed ejection fraction of 45-50% with slight apical hypokinesia. Vascular surgery with Dr. Kang were consulted and they recommended to continue with heparin drip and this patient bleeds then IVC filter would be indicated per their recommendation. Patient is currently covered with Zosyn and ID team on the case 10/28/2020 Patient is seen and evaluated sitting up in bedside chair in the ICU. Patient is is status post sigmoid colectomy with end colostomy and manual fecal disimpaction for perforated sigmoid colon and fecal impaction on 10/20/20. Caitlyn ent's ostomy is functioning. He has having stool and flatus through the ostomy. He denies any nausea or vomiting. He is status post cardioversion and remains in normal sinus rhythm. He does have generalized edema with low albumin. He is tolerating his low fiber diet. Vascular has switched patient to Eliquis for anticoagulation for his PE and DVT. Afebrile. WBC8.3 Hgb 12.1 albumin 2.2 Cardiology is on board for paroxysmal atrial fibrillation, remains in normal sinus rhythm on amiodarone 400 mg twice a day; patient is believed to be volume overloaded likely secondary to his third spacing from protein calorie malnutrition and received an extra dose of Lasix; continues to have fair urine output 10/29/2020 Patient is seen and evaluated in room at bedside; has been transferred to selective care unit The patient is postop day #9, the patient underwent sigmoid colectomy and colostomy and Kumar's pouch. He is doing well. He remains on Zosyn and Flagyl. He is tolerating his diet. He has positive output and his colostomy bag which is essentially functional and the patient has a clean wound. He is on no pressors. He is requiring Lasix 40 mg daily and the patient remains in a negative fluid balance and he is producing adequate amount of urine output and the swelling is also improving. He continues to have a DONOVAN drain in his right abdomen. His cardiac rhythm is sinus. He is back on anticoagulation. He got cardioverted and the patient is maintained on a combination of amiodarone and Toprol. No other significant events. He got transferred out of the intensive care unit yesterday. He is on room air oxygen. 10/30/2020 Patient is seen and evaluated in room at bedside; the patient is postop day #10 post colectomy and colostomy with Kumar's pouch. Still on same antibiotic coverage with Zosyn and Flagyl. Afebrile. Tolerating diet. White cell count at 8.2. He has a polymicrobial growth of the abdominal wound including enterococcus, E. coli and anaerobes. He is covered with appropriate antibiotic coverage. DONOVAN drain is in still in place. His cardiac rhythm is sinus. He is on a combination of metoprolol and amiodarone. He is on long-term medical condition with Eliquis. No bleeding complications. He is also taking diuretics and his fluid balance is negative around 1.4 L over the past 24 hours. Lasix is getting 40 mg by mouth on a daily basis. I'm quite happy with her with his negativity and fluid balance. He is using incentive spirometer.He is on room air oxygen. Patient remains on Lasix 40 mg daily with negative fluid balance; we will continue to monitor electrolytes closely; remains on IV Zosyn and Flagyl Objective - Vital Signs Vital signs: Vital Signs Temp 98.3 F 10/30/20 08:00 Pulse 73 10/30/20 08:00 Resp 16 10/30/20 08:00 BP 97/52 10/30/20 08:00 Pulse Ox 95 10/30/20 08:00 Intake & Output 10/29/20 10/30/20 10/30/20 18:59 06:59 18:59 Intake Total 820 380 Output Total 1555 925 Balance -735 -545 Weight 74.1 kg Intake: IV 100 120 D5-0.45% NaCl with KCl 120 20Meq/l 1,000 ml @ 40 mls /hr IV .Q24H [facility] Rx#: [id number] Piperacillin-Tazobactam 3 100 .375 gm In Sodium Chloride 0.9% 100 ml @ 25 mls/hr IVPB Q8HR [facility] Rx# :[id number] Intake, IV Titration 60 Amount Sodium Chloride 0.9% 1, 60 000 ml @ 20 mls/hr IV . Q24H [facility] Rx#:[id number] Oral 720 200 Output: Gastric Drainage 5 Drainage 0 0 Right Abdomen 0 0 Urine 1050 725 Stool 500 200 Other: Voiding Method Indwelling Catheter Indwelling Catheter - Exam CONSTITUTIONAL: No apparent distress. HEENT: Head is normocephalic. Pupils are equal, round. Sclerae anicteric. Mucous membranes of the mouth are moist. No JVD. No carotid bruit. CHEST EXAMINATION: Lungs are clear to auscultation. No chest wall tenderness is noted on palpation or with deep breathing. HEART EXAMINATION: regularly rate and rhythm. S1, S2 heard. No murmurs, gallops or rub. ABDOMEN: Soft, nontender. Positive bowel sounds. EXTREMITIES: 2+ peripheral pulses, +gerneralized upper and lower extremity edema. NEUROLOGIC EXAMINATION: Patient is awake, alert. - Labs CBC & Chem 7: 10/30/20 09:42 10/30/20 09:42 Labs: Abnormal Lab Results - Last 24 Hours (Table) 10/30/20 10/30/20 Range/Units 09:42 09:42 WBC 11.8 H (3.8-10.6) k/uL RBC 3.97 L (4.30-5.90) m/uL Hgb 11.9 L (13.0-17.5) gm/dL Hct 36.4 L (39.0-53.0) % Neutrophils # 10.1 H (1.3-7.7) k/uL Sodium 135 L (137-145) mmol/L BUN 22 H (9-20) mg/dL Glucose 137 H (74-99) mg/dL Calcium 8.0 L (8.4-10.2) mg/dL Assessment and Plan Assessment: -Bowel/sigmoid perforation status post exploratory laparotomy, sigmoid colectomy and colostomy with manual fecal disimpaction -Bilateral pulmonary emboli secondary to bilateral DVT. With no evidence of RV citrine on CT or echo -Mild hypoxic respiratory failure -Atrial fibrillation with RVR -Secondary peritonitis -History of CVA with right hemiparesis -Hypertension Plan: This is a pleasant 85 years old male who presents with bowel obstruction and pe rforation status post sigmoid colectomy and colostomy. Also has bilateral PE/DVT. Currently he is kept on heparin drip with close monitoring for signs of rebleeding with vascular surgery close monitoring the case to place IVC filter. Patient cannot tolerate anticoagulation consult cardiology for A. fib. Continue with metoprolol Patient also followed by miniature model maker, infectious disease and surgery primary team He kept on broad-spectrum antibiotic in the form of Zosyn, gentle hydration Continue same treatment. Continue with symptomatic treatment. Resume home medication. Monitor lytes and vitals. DVT and GI prophylaxis. Further recommendationsas per clinical course of the patient DVT prophylaxis: heparin GI Prophylaxis: Pepcid Prognosis is guarded
[2020-10-30] MEDS: TAMSULOSIN 0.4 MG CAP.ER.24H PO SCH (21:11)
--- NOTE | 2020-10-30 22:45 | PN ---
PROGRESS NOTE DATE OF SERVICE: 10/30/2020 REASON FOR FOLLOW UP: Abdominal abscess from perforated bowel. INTERVAL HISTORY: The patient is currently afebrile, has been breathing comfortably. Denies having any chest pain or shortness of breath or cough. Abdominal pain is currently controlled. Has been tolerating his diet. No nausea, vomiting or diarrhea. EXAMINATION: BP 115/53 with a pulse of 73, temperature 98. He is 93% on room air. General description: The patient is an elderly male up in the chair in no distress. Respiratory system: Unlabored breathing, decreased breath sounds in the bases. No wheeze. Heart S1, S2. Regular rate and rhythm. ABDOMEN: Soft, no tenderness. LABS: Hemoglobin is 11.9, white count 11.8, BUN of 22, creatinine 1.08. DIAGNOSTIC IMPRESSION AND PLAN: Patient with abdominal abscess from perforated bowel in this patient with abdominal culture positive for Enterococcus and E coli anaerobes. Patient covered with Zosyn. Plan to finish therapy with oral Cipro and Augmentin. Continue supportive care. MMODL / IJN: [id number] /
[2020-10-31] MEDS: PANTOPRAZOLE 40 MG TABLET PO SCH (06:29)
[2020-10-31 08:36] LABS: Albumin 2.1 g/dL (3.5-5.0); Potassium 3.8 mmol/L (3.5-5.1); Total Bilirubin 0.4 mg/dL (0.2-1.3); Total Protein 4.6 g/dL (6.3-8.2)
[2020-10-31] MEDS: MEMANTINE 10 MG TAB PO SCH ×2 (08:40→20:11)
[2020-10-31] MEDS: METOPROLOL TARTRATE 25 MG TAB PO SCH ×2 (08:40→20:11)
[2020-10-31] MEDS: APIXABAN 5 MG TAB PO SCH ×2 (08:40→20:11)
[2020-10-31] MEDS: AMIODARONE 200 MG TAB PO SCH ×2 (08:40→20:11)
[2020-10-31] MEDS: FUROSEMIDE 10 MG/ML 4 ML VIAL IV SCH (08:40)
[2020-10-31] MEDS: PIPERACILLIN-TAZOBACTAM 3.375 GM in SODIUM CHLORIDE 0.9% 100 ML IVPB SCH ×3 (08:40→23:12)
[2020-10-31] MEDS: SODIUM CHLORIDE 0.9% 1,000 ML IV SCH (08:41)
[2020-10-31] MEDS: polyethylene glycoL 3350 17 GM POWD.PACK PO SCH (11:37)
[2020-10-31] MEDS ORDERED: ACETAMINOPHEN TAB 325 MG TAB PO PRN (12:02)
--- NOTE | 2020-10-31 12:09 | P.PN ---
<Mere Dalton - Last Filed: 10/31/20 12:01> Subjective Progress Note Date: 10/31/20 CHIEF COMPLAINT: Pneumoperitoneum HISTORY OF PRESENT ILLNESS: Patient was transferred out of the ICU over the weekend. He does report some mild abdominal pain. He has not required any IV pain medication. Tylenol be ordered. He is status post sigmoid colectomy with end colostomy and manual fecal disimpaction for perforated sigmoid colon and fecal impaction on 10/20/20. Patient's ostomy is functioning. He has having stool and flatus through the ostomy. He denies any nausea or vomiting. He is status post cardioversion and cardiology has signed off. He does have generalized edema with low albumin and remains on IV Lasix. He is tolerating his low fiber diet. Vascular has switched patient to Eliquis for anticoagulation for his PE and DVT. Afebrile. WBC elevated at 11.8 yesterday. Repeat CBC will be ordered. DONOVAN drain has no output. PHYSICAL EXAM: VITAL SIGNS: Reviewed. GENERAL: Well-developed in no acute distress. HEENT: No sclera icterus. Extraocular movements grossly intact. Moist buccal mucosa. Head is atraumatic, normocephalic. ABDOMEN: Soft. Nondistended. Incision dressing small amount of blood at the distal aspect of the dressing. Stoma is pink. There is stool and air present in ostomy bag. NEUROLOGIC: Alert and oriented. Cranial nerves II through XII grossly intact. ASSESSMENT: 1. Perforated sigmoid colon and fecal impaction status post sigmoid colectomy with end colostomy and manual fecal disimpaction 2. Sepsis secondary to Peritonitis present on admission 3. Severe protein calorie malnutrition PLAN: -Continue supportive care -Continue low fiber diet -Discontinue DONOVAN drain -Continue antibiotics per ID -Ensure 3 times a day -Encourage incentive spirometer use -Encourage patient to increase activity -Discharge planning in progress. Plan is to discharge to [facility] when cleared by consulting physicians Physician Per Diem note has been reviewed by physician. Signing provider agrees with the documented findings, assessment, and plan of care. Objective - Vital Signs Vital signs: Vital Signs Temp 97.9 F 10/31/20 08:00 Pulse 71 10/31/20 08:00 Resp 16 10/31/20 08:00 BP 126/55 10/31/20 08:00 Pulse Ox 95 10/31/20 08:00 Intake & Output 10/30/20 10/31/20 10/31/20 18:59 06:59 18:59 Intake Total 460 Output Total 1300 500 0 Balance -840 -500 0 Weight 78 kg Intake: Oral 360 Lipid 100 Piperacillin-Tazobactam 3 100 .375 gm In Sodium Chloride 0.9% 100 ml @ 25 mls/hr IVPB Q8HR [facility] Rx# :[id number] Output: Drainage 0 0 0 Right Abdomen 0 0 0 Urine 600 500 Stool 700 Other: Voiding Method Indwelling Catheter Indwelling Catheter Indwelling Catheter - Labs CBC & Chem 7: 10/30/20 09:42 10/31/20 07:44 Labs: Abnormal Lab Results - Last 24 Hours (Table) 10/31/20 Range/Units 07:44 BUN 28 H (9-20) mg/dL Calcium 8.0 L (8.4-10.2) mg/dL Total Protein 4.6 L (6.3-8.2) g/dL Albumin 2.1 L (3.5-5.0) g/dL <Eleuterio Dean - Last Filed: 10/31/20 16:19> Subjective As above. Patient tolerating diet. Good bowel function. Most inferior aspect of incision with a small amount of bloody drainage. 3 abdoulaye removed. Cloudy fluid evacuated. Cultures obtained. Continue local wound care. Continue antibiotics. Possible discharge to rehab tomorrow. Objective - Vital Signs Vital signs: Vital Signs Temp 98.0 F 10/31/20 12:00 Pulse 71 10/31/20 13:16 Resp 14 10/31/20 13:16 BP 96/55 10/31/20 12:00 Pulse Ox 91 L 10/31/20 12:00 Intake & Output 10/30/20 10/31/20 10/31/20 18:59 06:59 18:59 Intake Total 460 1260 Output Total 9808 540 8775 Balance -840 -500 -215 Weight 78 kg Intake: IV 140 .9 40 Piperacillin-Tazobactam 3 100 .375 gm In Sodium Chloride 0.9% 100 ml @ 25 mls/hr IVPB Q8HR [facility] Rx# :[id number] Oral 360 1120 Lipid 100 Piperacillin-Tazobactam 3 100 .375 gm In Sodium Chloride 0.9% 100 ml @ 25 mls/hr IVPB Q8HR [facility] Rx# :[id number] Output: Drainage 0 0 0 Right Abdomen 0 0 0 Urine 259 556 8087 Stool 700 450 Other: Voiding Method Indwelling Catheter Indwelling Catheter Indwelling Catheter - Labs CBC & Chem 7: 10/30/20 09:42 10/31/20 07:44 Labs: Abnormal Lab Results - Last 24 Hours (Table) 10/31/20 Range/Units 07:44 BUN 28 H (9-20) mg/dL Calcium 8.0 L (8.4-10.2) mg/dL Total Protein 4.6 L (6.3-8.2) g/dL Albumin 2.1 L (3.5-5.0) g/dL Assessment and Plan (1) Bowel perforation Current Visit: Yes Status: Acute Code(s): K63.1 - PERFORATION OF INTESTINE (NONTRAUMATIC) SNOMED Code(s): 44996727
--- NOTE | 2020-10-31 15:28 | P.PN ---
Subjective Progress Note Date: 10/31/20 This is an 85-year-old male who presents to the emergency department, complaining of unable to urinate. The patient also has not had a bowel movement in 3 weeks. He apparently was recently admitted for constipation but then was discharged. The patient has a history of colitis. The patient apparently feels nauseated, and his abdomen is distended. He denies any vomiting. Denied any chest pain. He also denied any shortness of breath. He apparently was found have a perforated viscus, and underwent a Kumar's procedure by Dr. Dean. He is postop day #1. Dr. Dean called me yesterday and asked whether or not we could put the patient in the ICU overnight. He was concerned given the patient's age. In addition, in the process of evaluating the patient, the patient was found to have bilateral pulmonary emboli, moderate clot burden, right greater than left, and also bilateral lower extremity DVT. Because of the recent surgery, he cannot be heparinized. Apparently, the vascular surgeon was called, and at this point, no interventions are planned. The patient apparently has a history of CVA, hypertension, and chronic prostate disease. He is currently on lactulose, MiraLAX, multiple vitamins, Flomax, Namenda, and Zocor. He is resting comfortably in the ICU. He is on O2 at 2 L. He is getting dextrose, with half-normal saline, with 20 mEq of potassium at 125 mL an hour. I didn't passed onto the nurse, that may be vascular surgery would prefer to do a [place] filter. The patient is without distress. Progress note dated 10/22/2020. This is a 85-year-old male, who is postop day #2, status post Kumar's procedure, with sigmoid colectomy and end colostomy, for perforated sigmoid colon and fecal impaction. The patient was also discovered have bilateral DVTs, and bilateral pulmonary emboli, right greater than left, with moderate clot burden. The patient's currently on IV heparin, weight based protocol, D5.45, with 20 of potassium, 125 mL an hour, and O2 at 2 L. The patient has a history of CVA, BPH, dementia, hyperlipidemia, essential hypertension and chronic cons tipation. Surprisingly, the patient seemed be doing relatively well. I did ask vascular surgery whether or not a [place] filter would be appropriate given the fact that he was at high risk for anticoagulation given his age. Initially, the surgeon did not want to start blood thinners because of the recent surgery. Currently, from the clinical standpoint, he is doing well. White count 8.8, h emoglobin 11.3, hematocrit 35.5, and platelet count 209,000. PTT is 45.7. Sodium 133, potassium 4.4, chlorides 106, CO2 23, anion gap 4, BUN 26, and creatinine 0.79. Progress note dated 10/23/2020. 85-year-old male, who is postop day #3, status post Kumar's procedure, with sigmoid colectomy, and end colostomy, for perforated sigmoid colon and fecal impaction. In addition, at the time of his initial evaluation, he was found to have bilateral DVT, and also, bilateral pulmonary emboli, right greater than left, with moderate clot burden. Currently, the patient continues on 2 L nasal cannula. He is on heparin via weightbase protocol. He is also getting dextrose with half-normal saline with 20 mEq of potassium chloride, at 75 mL an hour, to be reduced down to 40 mL an hour. In addition, the patient received Lasix 40 mg IV push 1. The patient was also on saline at 75 mL an hour, but that IV was discontinued. His weight has jumped, and is receiving much more fluid than urine output. Also, unfortunately, we're all set to discharge the patient to the general medical floor without telemetry, where he developed atrial fibrillation with RVR, was started on a Cardizem drip, and given some beta jerry. Also, initially, the surgeon did not want the patient on blood thinners, but did change his mind, and currently the patient is on heparin. On 10/24/2020 the patient is being seen in follow-up in the intensive care unit. The patient is postop day #4. The patient underwent a sigmoid colectomy and end colostomy and the patient has a Kumar pouch. He presented to the hospital because of constipation and patient was found to have perforated sigmoid colon with fecal impaction. Abdominal wound cultures growing E. coli in addition to Enterococcus faecalis and fisherman the patient is on a combination of Zosyn and Flagyl. Over the past 24 hours, the patient went into atrial fibrillation with rapid ventricular response. His blood pressure also became somewhat hypotens lianne. He was placed on a combination of norepinephrine for blood pressure support and is currently running at 0.09 mcg/kg per minute. The patient was also started on Cardizem drip initially at 10 mg an hour and currently is also on amiodarone drip at 0.5 mg per minute. Current heart rate is around 107 and is still irregular. Most recent blood pressure is 93/61. He is producing urine output. He is awake and alert and currently is on oxygen at 2 L per minute. He continues to have edema both in the upper and lower extremities more so on the right as the patient had a previous CVA on the right. Abdomen is nondistended. Bowel sounds are sluggish. Colostomy site is viable and the tissue looks healthy. Minimal amount of liquid collecting in the colostomy bag. Bowel sounds are hypoactive. Abdomen is nondistended.The white cell count is at 12.3 with a hemoglobin of 11.8. The patient remains on IV heparin as the patient has a new onset atrial fibrillation. The patient also has bilateral lower extremity DVT. His PTT is therapeutic for now. The patient is being given clear liquid diet. The patient is also using incentive spirometer. He is awake and alert and communicating. Discussed the case with cardiology and there is a constellation for cardioversion due to his ongoing atrial fibrillation with rapid ventricular response despite being on a Cardizem drip and amiodarone. His level is good ejection fraction has been within normal limits. He is on IV fluids at the rate of 50 mL an hour of D5 half-normal with potassium supplements. On 10/25/2020 I'm seeing the patient in follow-up in intensive care unit. The patient is postop day #5 following a sigmoid colectomy and end colostomy and Kumar's pouch. The patient is also infected. Abdominal cultures showed E. c devin and Enterococcus faecalis and fascial and the patient remains on a combination of Zosyn and Flagyl. Note that anaerobic bacteria is also growing in the abdominal wounds. As such, this is a polymicrobial growth related to bowel perforation. The patient is currently extubated and he is hemodynamically stable. Nevertheless, the active issue for now is his atrial fibrillation with rapid ventricular response and his heart rate is in the 150 range, irregular despite being on a combination of Cardizem drip and amiodarone. The patient was switched to oral amiodarone and subsequently earlier this morning he was switched back to amiodarone drip at 1 mg an hour and he was given 150 mg bolus and the plan is to proceed with cardioversion because of his persistent atrial fibrillation. He remains on IV heparin for now. The patient is also on D5 half-normal saline with potassium supplements running at or cc an hour. Significant amount of fluid overload yesterday with extensive edema in all 4 extremities and the patient was given a dose of Lasix and the neck fluid balance over the past 24 hours has been -1 L. He is afebrile. He is on norepinephrine infusion which is running at 0.04 mcg/kg per minute.. The white cell count of 13.2 with hemoglobin 11.9. PTT is therapeutic at 73. The rest of the blood work and electrodes are all within normal limits. As for the ileus, the patient has some vague abdominal distention yesterday and the left arm of the abdomen showed a component of ileus. Overnight, he was not passing any gas and subsequently he had large amount of gas collecting in the colostomy bag and he seems to be somewhat deflated. Bowel sounds remain hypoactive at this point in time. The patient remains nothing by mouth. She is awake and alert and oriented. Following commands appropriately. He is postop day #5. Clinically, slightly more lethargic compared to yesterday, yet very much appropriate and responsive. 10/26/2020 the patient is comfortable awake and alert on room air oxygen. Is postop day #6 following a sigmoid colectomy and colostomy and Kumar's pouch. He has a Carranza microbial abdominal infection with anaerobes, E. coli and enterococcus and the patient is still on a combination of Zosyn and Flagyl. Meanwhile, he was having issues with atrial fibrillation with rapid ventricular response that was very difficult to control. The patient underwent cardioversion. He is currently off the Cardizem drip. He is off the pressors and the patient has been taken off the norepinephrine infusion. Currently is only on IV heparin infusion. His cardiac rhythm is sinus for now. He is off pressors. He is on Lasix 40 mg to 24 hours and the dose was increased up to twice a day by cardiology. While, his ileus has subsided and the patient is pr oducing stool and the patient is taking some soft diet today. In terms of rate control, is on a Toprol 25 mg by mouth twice a day and amiodarone 400 mg by mouth twice a day. IV heparin is still on board for now. Surgical wound site is dry clean and intact. DONOVAN drain output from the right side is serous and minimal output at this point in time. Is awake and alert. No other significant issues for now. Fluid balance over the past 24 hours has been negative and the patient has been able to achieve a negative fluid balance and is improving in terms of his edema. On 10/27/2020 patient seen in follow-up in intensive care unit, he is awake and alert, oriented 3, denies any worsening dyspnea, he is currently on room air pulse ox is 94%, vital signs are stable, he has had no fever or chills. remains on Zosyn for sepsis related to bowel perforation. Tolerating oral diet. Colostomy is with soft brown stool, abdomen soft. Vitals stable, remains in sinus with controlled rate, [facility], continues on oral Amio 400 mg BID On 10/28/2020 patient seen in follow-up in the intensive care unit. Patient is awake and alert, oriented 3, resting comfortably in bed, denies any dyspnea, breathing comfortably, eventually liters of oxygen pulse ox of 96%, on sounds are clear, he is working on his aspirin, she will [id number] ml on incentive spirometer today. Denies any abdominal pain, his left lower quadrant colostomy seems soft brown output, patient is tolerating regular diet, no nausea no vomiting. He remains on diuretics in the form of Lasix 40 mg once daily, he is in -1.2 L of her last 24 hours. Generalized edema is improving. Chest x-ray shows left lower lobe atelectasis with associated small pleural effusion, and mild interstitial changes. His labs have been reviewed, white blood cell count is 8.2, hemoglobin is 12.1, sodium is 133, potassium is 3.7, renal profile is within normal limits. Has had no fever or chills, he remains on Zosyn for intraabdominal sepsis related to bowel perforation. On 10/31/2020 patient seen in follow-up on selective care unit. He is awake and alert, in no acute distress, he is on room air, breathing comfortably, no wheezing, no rhonchi, no complaints of chest discomfort. He status post colectomy and colostomy with Kumar's pouch for perforated bowel, postoperative day #11. He is left lower quadrant colostomy is producing soft and liquid brown stool, abdomen is nontender, abdominal incision is covered with the silver dressing, patient has active bowel sounds, she is tolerating oral diet, no nausea or vomiting, today's labs have been reviewed, electrolytes within normal limits, B1 is 20 creatinine is 1, LFTs are within normal limits. His generalized edema has significantly improved, he remains on a once daily dose of IV Lasix, he is in -1.3 L net fluid balance over the last 24 hours, his last chest x-ray on 10/28/2020 showed left lower lobe pneumonia versus edema, atelectasis or pleural effusion with a component of interstitial edema. ID service is following, patient is currently covered with Zosyn for abdominal cultures positive for enterococcus and E. coli anaerobes. Charge planning is in progress for discharge to subacute rehab facility, and the plan is to switch the patient to oral antibiotics in the form of ciprofloxacin and Augmentin at the time of discharge. Objective - Vital Signs Vital signs: Vital Signs Temp 98.0 F 10/31/20 12:00 Pulse 71 10/31/20 13:16 Resp 14 10/31/20 13:16 BP 96/55 10/31/20 12:00 Pulse Ox 91 L 10/31/20 12:00 Intake & Output 10/30/20 10/31/20 10/31/20 18:59 06:59 18:59 Intake Total 460 1260 Output Total 8833 671 0828 Balance -840 -500 -215 Weight 78 kg Intake: IV 140 .9 40 Piperacillin-Tazobactam 3 100 .375 gm In Sodium Chloride 0.9% 100 ml @ 25 mls/hr IVPB Q8HR KATHLE[facility] Rx# :[id number] Oral 360 1120 Lipid 100 Piperacillin-Tazobactam 3 100 .375 gm In Sodium Chloride 0.9% 100 ml @ 25 mls/hr IVPB Q8HR [facility]ATHLE[facility] Rx# :[id number] Output: Drainage 0 0 0 Right Abdomen 0 0 0 Urine 936 817 1879 Stool 700 450 Other: Voiding Method Indwelling Catheter Indwelling Catheter Indwelling Catheter - Exam - Constitutional General appearance: Present: average body habitus, cooperative - EENT Eyes: Present: PERRLA, poor dentition, normal appearance ENT: Present: NA/AT Ears: bilateral: normal - Neck Neck: Present: normal ROM - Respiratory Respiratory: bilateral: diminished - Cardiovascular Rhythm: regular Heart sounds: normal: S1, S2 - Peripheral edema leg Peripheral Edema: bilateral: 1+ ankle Peripheral Edema: bilateral: 1+ foot Peripheral Edema: bilateral: 1+ - Peripheral pulses dorsalis pedis Peripheral Pulses: bilateral: Normal - Gastrointestinal General gastrointestinal: Present: normal bowel sounds - Integumentary Integumentary: Present: normal turgor - Neurologic Neurologic: Present: CNII-XII intact - Musculoskeletal Musculoskeletal: Present: generalized weakness, strength equal bilaterally - Psychiatric Psychiatric: Present: A&O x's 3, appropriate affect, intact judgment & insight - Additional findings Additional findings: left lower quadrant colostomy with soft brown output - Labs CBC & Chem 7: 10/30/20 09:42 10/31/20 07:44 Labs: Abnormal Lab Results - Last 24 Hours (Table) 10/31/20 Range/Units 07:44 BUN 28 H (9-20) mg/dL Calcium 8.0 L (8.4-10.2) mg/dL Total Protein 4.6 L (6.3-8.2) g/dL Albumin 2.1 L (3.5-5.0) g/dL Assessment and Plan Plan: Assessment: 1 Postop day # 11, status post Kumar's procedure, with sigmoid colectomy and end colostomy, for perforated sigmoid colon and fecal impaction. The intra- abdominal cultures showed E. coli in addition to enterococcus fascia and faecalis and the patient remains on examination of Zosyn and Flagyl. The patient also has some anaerobes growing in the abdominal wound and antibiotic coverage remain the same. Currently off pressors. The patient is a broad- spectrum antibiotics. His colostomy site is functionally the patient is producing adequate amount of stool and the patient is on soft diet at this point in time. 2 Bilateral pulmonary emboli, right greater than left, with moderate clot burden, currently on IV heparin, PTT is therapeutic and the PICC line was placed and flushed with TPA yesterday for some difficulties with clogging 3 Bilateral lower extremity DVT, currently on IV heparin 4 New onset atrial fibrillation with rapid ventricular response, post successful cardioversion in his back to normal sinus rhythm. She is currently on metoprolol. He is currently off pressors. He remains on IV heparin. 5 History of CVA. 6 History of BPH. 7 History of dementia. 8 History of hyperlipidemia. 9 History of hypertension. 10 History of chronic constipation. 11 ileus improving with stool output and gas in the last and the back in the colostomy is functional and the patient is able to tolerate soft diet. Plan: Patient is doing well, has remained stable, he is in negative fluid balance, generalized edema has significantly improved, his colostomy is functioning, patient is tolerating oral diet, he's had no acute events overnight, he remains on IV antibiotics, his had no fever or chills, no worsening dyspnea, he is on room air. From pulmonary perspective he can be considered for discharge to [facility]CF when cleared by other consultants on the case. We'll switch the IV Lasix to oral Lasix 20 mg daily, follow-up labs in the morning, follow-up chest x-ray in the morning. I performed a history & physical examination of the patient and discussed their management with my nurse practitioner, Indu Melton. I reviewed the nurse practitioner's note and agree with the documented findings and plan of care. Lung sounds are positive for clear breath sounds. The findings and the impression was discussed with the patient. I attest to the documentation by the nurse practitioner. Time with Patient: Less than 30
--- NOTE | 2020-10-31 17:31 | P.PN ---
Subjective Progress Note Date: 10/30/20 Principal diagnosis: Pneumoperitoneum Perforated sigmoid colon and fecal impaction status post sigmoid colectomy with end colostomy and manual fecal disimpaction, postop day #7 Sepsis secondary to Peritonitis present on admission Severe protein calorie malnutrition 85 years old male with past medical history of CVA/TIA, hypertension, residual right hemiparesis. He was admitted with abdominal pain and CAT scan of the abdomen showing free air and free fluid. He underwent exploratory laparotomy with sigmoid colectomy and colostomy and manual disimpaction Also on CT of the abdomen there was suspicion of PE which was shown on CT of the chest to have bilateral PE and bilateral lower extremity DVT on ultrasound of the lower extremities. Patient currently is on heparin drip. Echocardiogram: Showed ejection fraction of 45-50% with slight apical hypokinesia. Vascular surgery with Dr. Kang were consulted and they recommended to continue with heparin drip and this patient bleeds then IVC filter would be indicated per their recommendation. Patient is currently covered with Zosyn and ID team on the case 10/28/2020 Patient is seen and evaluated sitting up in bedside chair in the ICU. Patient is is status post sigmoid colectomy with end colostomy and manual fecal disimpaction for perforated sigmoid colon and fecal impaction on 10/20/20. Patient's ostomy is functioning. He has having stool and flatus through the ostomy. He denies any nausea or vomiting. He is status post cardioversion and remains in normal sinus rhythm. He does have generalized edema with low albumin. He is tolerating his low fiber diet. Vascular has switched patient to Eliquis for anticoagulation for his PE and DVT. Afebrile. WBC8.3 Hgb 12.1 albumin 2.2 Cardiology is on board for paroxysmal atrial fibrillation, remains in normal sinus rhythm on amiodarone 400 mg twice a day; patient is believed to be volume overloaded likely secondary to his third spacing from protein calorie malnutrition and received an extra dose of Lasix; continues to have fair urine output 10/29/2020 Patient is seen and evaluated in room at bedside; has been transferred to selective care unit The patient is postop day #9, the patient underwent sigmoid colectomy and colostomy and Kumar's pouch. He is doing well. He remains on Zosyn and Flagyl. He is tolerating his diet. He has positive output and his colostomy bag which is essentially functional and the patient has a clean wound. He is on no pressors. He is requiring Lasix 40 mg daily and the patient remains in a negative fluid balance and he is producing adequate amount of urine output and the swelling is also improving. He continues to have a DONOVAN drain in his right abdomen. His cardiac rhythm is sinus. He is back on anticoagulation. He got cardioverted and the patient is maintained on a combination of amiodarone and Toprol. No other significant events. He got transferred out of the intensive care unit yesterday. He is on room air oxygen. 10/30/2020 Patient is seen and evaluated in room at bedside; the patient is postop day #10 post colectomy and colostomy with Kumar's pouch. Still on same antibiotic coverage with Zosyn and Flagyl. Afebrile. Tolerating diet. White cell count at 8.2. He has a polymicrobial growth of the abdominal wound including enterococcus, E. coli and anaerobes. He is covered with appropriate antibiotic coverage. DONOVAN drain is in still in place. His cardiac rhythm is sinus. He is on a combination of metoprolol and amiodarone. He is on long-term medical condition with Eliquis. No bleeding complications. He is also taking diuretics and his fluid balance is negative around 1.4 L over the past 24 hours. Lasix is getting 40 mg by mouth on a daily basis. I'm quite happy with her with his negativity and fluid balance. He is using incentive spirometer.He is on room air oxygen. Patient remains on Lasix 40 mg daily with negative fluid balance; we will continue to monitor electrolytes closely; remains on IV Zosyn and Flagyl 10/31/2020 Patient is clinically doing well. Patient is having good bowel movements possibility of discharge soon to subacute rehabitation. Constitutional: Denied any fatigue denied any fever. Cardio vascular: denied any chest pain, palpitations Gastrointestinal denied any nausea vomiting Pulmonary: Denied any shortness of breath cough Neurologic denied any new focal deficits All inpatient medications were reviewed and appropriate changes in these medica tions as dictated in the interval history and assessment and plan. Objective - Vital Signs Vital signs: Vital Signs Temp 97.9 F 10/31/20 17:00 Pulse 78 10/31/20 17:00 Resp 16 10/31/20 17:00 BP 91/51 10/31/20 17:00 Pulse Ox 95 10/31/20 17:00 Intake & Output 10/30/20 10/31/20 10/31/20 18:59 06:59 18:59 Intake Total 460 1260 Output Total 6857 886 4106 Balance -840 -500 -215 Weight 78 kg Intake: IV 140 .9 40 Piperacillin-Tazobactam 3 100 .375 gm In Sodium Chloride 0.9% 100 ml @ 25 mls/hr IVPB Q8HR [facility] Rx# :[id number] Oral 360 1120 Lipid 100 Piperacillin-Tazobactam 3 100 .375 gm In Sodium Chloride 0.9% 100 ml @ 25 mls/hr IVPB Q8HR [facility] Rx# :[id number] Output: Drainage 0 0 0 Right Abdomen 0 0 0 Urine 526 022 5261 Stool 700 450 Other: Voiding Method Indwelling Catheter Indwelling Catheter Indwelling Catheter - Exam PHYSICAL EXAMINATION: GENERAL: The patient is alert and oriented x3, not in any acute distress. Well developed, well nourished. HEENT: Pupils are round and equally reacting to light. EOMI. No scleral icterus. No conjunctival pallor. Normocephalic, atraumatic. No pharyngeal erythema. No thyromegaly. CARDIOVASCULAR: S1 and S2 present. No murmurs, rubs, or gallops. PULMONARY: Chest is clear to auscultation, no wheezing or crackles. ABDOMEN: Soft, nontender, nondistended, normoactive bowel sounds. No palpable organomegaly. Has a left-sided colostomy. Was having normal bowel movements into that MUSCULOSKELETAL: No joint swelling or deformity. EXTREMITIES: No cyanosis, clubbing, or pedal edema. NEUROLOGICAL: Gross neurological examination did not reveal any focal deficits. Have significant generalized weakness SKIN: No rashes. - Labs CBC & Chem 7: 10/30/20 09:42 10/31/20 07:44 Labs: Abnormal Lab Results - Last 24 Hours (Table) 10/31/20 Range/Units 07:44 BUN 28 H (9-20) mg/dL Calcium 8.0 L (8.4-10.2) mg/dL Total Protein 4.6 L (6.3-8.2) g/dL Albumin 2.1 L (3.5-5.0) g/dL Assessment and Plan Plan: -Bowel/sigmoid perforation status post exploratory laparotomy, sigmoid colectomy and colostomy with manual fecal disimpaction -Bilateral pulmonary emboli secondary to bilateral DVT. With no evidence of RV citrine on CT or echo -Mild hypoxic respiratory failure -Atrial fibrillation with RVR -Secondary bacterial peritonitis secondary to bowel perforation -History of CVA with right hemiparesis -Hypertension Plan: Continue with present medications, continue with Eliquis for a recent DVT. Patient is also on amiodarone for atrial fibrillation. Continue with Zosyn possibility of discharge in a day or 2 to subacute rehabitation GI Prophylaxis: Pepcid
[2020-10-31] MEDS: TAMSULOSIN 0.4 MG CAP.ER.24H PO SCH (20:11)
--- NOTE | 2020-11-01 04:44 | PN ---
PROGRESS NOTE DATE OF SERVICE: 10/31/2020 REASON FOR FOLLOWUP: Perforated bowel and secondary peritonitis. INTERVAL HISTORY: The patient is currently afebrile. He is breathing comfortably. Denies having any chest pain, shortness of breath or cough. Abdominal pain is currently controlled. Tolerating his diet. No nausea, no vomiting and no diarrhea. PHYSICAL EXAMINATION: Blood pressure 96/55, pulse of 71, temperature 98. He is 91% room air. General description: The patient is an elderly male lying in bed in no distress. Respiratory system: Unlabored breathing, clear to auscultation anteriorly. Heart S1, S2. Regular rate and rhythm. ABDOMEN: Soft, no tenderness. LABS: BUN of 28, creatinine 1.08. DIAGNOSTIC IMPRESSION AND PLAN: Patient with abdominal abscess from a perforated bowel in this patient abdominal culture with Enterococcus E coli anaerobes. Patient is covered with Zosyn. Plan to finish therapy with combination of Augmentin and Cipro for a week and close outpatient followup. MMODL / IJN: [id number] /
[2020-11-01] MEDS: PANTOPRAZOLE 40 MG TABLET PO SCH (06:53)
[2020-11-01] MEDS: METOPROLOL TARTRATE 25 MG TAB PO SCH ×2 (09:20→20:29)
[2020-11-01] MEDS: APIXABAN 5 MG TAB PO SCH (09:20)
[2020-11-01] MEDS: PIPERACILLIN-TAZOBACTAM 3.375 GM in SODIUM CHLORIDE 0.9% 100 ML IVPB SCH ×3 (09:20→23:39)
[2020-11-01] MEDS: FUROSEMIDE 20 MG TAB PO SCH (09:20)
[2020-11-01] MEDS: MEMANTINE 10 MG TAB PO SCH ×2 (09:20→20:29)
[2020-11-01] MEDS: AMIODARONE 200 MG TAB PO SCH ×2 (09:20→20:30)
[2020-11-01] MEDS: SODIUM CHLORIDE 0.9% 1,000 ML IV SCH (09:22)
--- NOTE | 2020-11-01 10:56 | XR ---
EXAMINATION TYPE: XR chest 1V portable DATE OF EXAM: 11/01/2020 COMPARISON: 10/28/2020 HISTORY: Shortness of breath TECHNIQUE: Single frontal view of the chest is obtained. FINDINGS: There are chronic right-sided rib deformities. Severe arthropathy of the right shoulder. B ilateral infiltrate and small effusion. Underlying COPD. No pneumothorax. Heart size normal. A PICC l ine no longer seen. IMPRESSION: 1. COPD with bilateral lower lobe infiltrate and small effusion.
[2020-11-01] MEDS: polyethylene glycoL 3350 17 GM POWD.PACK PO SCH (11:05)
[2020-11-01 11:06] VITALS: BMI 23.8
--- NOTE | 2020-11-01 11:31 | P.PN ---
Subjective Progress Note Date: 10/30/20 Principal diagnosis: Pneumoperitoneum Perforated sigmoid colon and fecal impaction status post sigmoid colectomy with end colostomy and manual fecal disimpaction, postop day #7 Sepsis secondary to Peritonitis present on admission Severe protein calorie malnutrition 85 years old male with past medical history of CVA/TIA, hypertension, residual right hemiparesis. He was admitted with abdominal pain and CAT scan of the abdomen showing free air and free fluid. He underwent exploratory laparotomy with sigmoid colectomy and colostomy and manual disimpaction Also on CT of the abdomen there was suspicion of PE which was shown on CT of the chest to have bilateral PE and bilateral lower extremity DVT on ultrasound of the lower extremities. Patient currently is on heparin drip. Echocardiogram: Showed ejection fraction of 45-50% with slight apical hypokinesia. Vascular surgery with Dr. Kang were consulted and they recommended to continue with heparin drip and this patient bleeds then IVC filter would be indicated per their recommendation. Patient is currently covered with Zosyn and ID team on the case 10/28/2020 Patient is seen and evaluated sitting up in bedside chair in the ICU. Patient is is status post sigmoid colectomy with end colostomy and manual fecal disimpaction for perforated sigmoid colon and fecal impaction on 10/20/20. Patient's ostomy is functioning. He has having stool and flatus through the ostomy. He denies any nausea or vomiting. He is status post cardioversion and remains in normal sinus rhythm. He does have generalized edema with low albumin. He is tolerating his low fiber diet. Vascular has switched patient to Eliquis for anticoagulation for his PE and DVT. Afebrile. WBC8.3 Hgb 12.1 albumin 2.2 Cardiology is on board for paroxysmal atrial fibrillation, remains in normal sinus rhythm on amiodarone 400 mg twice a day; patient is believed to be volume overloaded likely secondary to his third spacing from protein calorie malnutrition and received an extra dose of Lasix; continues to have fair urine output 10/29/2020 Patient is seen and evaluated in room at bedside; has been transferred to selective care unit The patient is postop day #9, the patient underwent sigmoid colectomy and colostomy and Kumar's pouch. He is doing well. He remains on Zosyn and Flagyl. He is tolerating his diet. He has positive output and his colostomy bag which is essentially functional and the patient has a clean wound. He is on no pressors. He is requiring Lasix 40 mg daily and the patient remains in a negative fluid balance and he is producing adequate amount of urine output and the swelling is also improving. He continues to have a DONOVAN drain in his right abdomen. His cardiac rhythm is sinus. He is back on anticoagulation. He got cardioverted and the patient is maintained on a combination of amiodarone and Toprol. No other significant events. He got transferred out of the intensive care unit yesterday. He is on room air oxygen. 10/30/2020 Patient is seen and evaluated in room at bedside; the patient is postop day #10 post colectomy and colostomy with Kumar's pouch. Still on same antibiotic coverage with Zosyn and Flagyl. Afebrile. Tolerating diet. White cell count at 8.2. He has a polymicrobial growth of the abdominal wound including enterococcus, E. coli and anaerobes. He is covered with appropriate antibiotic coverage. DONOVAN drain is in still in place. His cardiac rhythm is sinus. He is on a combination of metoprolol and amiodarone. He is on long-term medical condition with Eliquis. No bleeding complications. He is also taking diuretics and his fluid balance is negative around 1.4 L over the past 24 hours. Lasix is getting 40 mg by mouth on a daily basis. I'm quite happy with her with his negativity and fluid balance. He is using incentive spirometer.He is on room air oxygen. Patient remains on Lasix 40 mg daily with negative fluid balance; we will continue to monitor electrolytes closely; remains on IV Zosyn and Flagyl 10/31/2020 Patient is clinically doing well. Patient is having good bowel movements possibility of discharge soon to subacute rehabitation. 11/01/2020 Patient is tolerating diet well. Patient chest x-ray is showing infiltrate in bilateral lower lung wise. Have any fever probably atelectasis Constitutional: Denied any fatigue denied any fever. Cardio vascular: denied any chest pain, palpitations Gastrointestinal denied any nausea vomiting Pulmonary: Denied any shortness of breath cough Neurologic denied any new focal deficits All inpatient medications were reviewed and appropriate changes in these medications as dictated in the interval history and assessment and plan. Objective - Vital Signs Vital signs: Vital Signs Temp 98.2 F 11/01/20 03:25 Pulse 56 L 11/01/20 03:25 Resp 17 11/01/20 03:25 BP 112/56 11/01/20 03:25 Pulse Ox 96 11/01/20 07:49 Intake & Output 10/31/20 11/01/20 11/01/20 18:59 06:59 18:59 Intake Total 1500 240 Output Total 2150 475 Balance -650 -235 Weight 77.5 kg 77.5 kg Intake: IV 140 .9 40 Piperacillin-Tazobactam 3 100 .375 gm In Sodium Chloride 0.9% 100 ml @ 25 mls/hr IVPB Q8HR [facility] Rx# :[id number] Oral 1360 240 Output: Drainage 0 Right Abdomen 0 Urine 1700 475 Stool 450 Other: Voiding Method Indwelling Catheter Indwelling Catheter - Exam PHYSICAL EXAMINATION: GENERAL: The patient is alert and oriented x3, not in any acute distress. Well developed, well nourished. HEENT: Pupils are round and equally reacting to light. EOMI. No scleral icterus. No conjunctival pallor. Normocephalic, atraumatic. No pharyngeal erythema. No thyromegaly. CARDIOVASCULAR: S1 and S2 present. No murmurs, rubs, or gallops. PULMONARY: Chest is clear to auscultation, no wheezing or crackles. ABDOMEN: Soft, nontender, nondistended, normoactive bowel sounds. No palpable organomegaly. Has a left-sided colostomy. Was having normal bowel movements into that MUSCULOSKELETAL: No joint swelling or deformity. EXTREMITIES: No cyanosis, clubbing, or pedal edema. NEUROLOGICAL: Gross neurological examination did not reveal any focal deficits. Have significant generalized weakness SKIN: No rashes. - Labs CBC & Chem 7: 10/30/20 09:42 10/31/20 07:44 Labs: Microbiology - Last 24 Hours (Table) 10/31/20 15:30 Gram Stain - Preliminary Abdomen Wound Culture - Preliminary Assessment and Plan Plan: -Bowel/sigmoid perforation status post exploratory laparotomy, sigmoid colectomy and colostomy with manual fecal disimpaction -Bilateral pulmonary emboli secondary to bilateral DVT. With no evidence of RV citrine on CT or echo -Mild hypoxic respiratory failure -Atrial fibrillation with RVR -Secondary bacterial peritonitis secondary to bowel perforation -History of CVA with right hemiparesis -Hypertension Plan: Continue with present medications, continue with Eliquis for a recent DVT. Patient is also on amiodarone for atrial fibrillation. Continue with Zosyn possibility of discharge in a day or 2 to subacute rehabitation GI Prophylaxis: Pepcid
--- NOTE | 2020-11-01 12:23 | P.PN ---
Subjective Progress Note Date: 11/01/20 CHIEF COMPLAINT: Pneumoperitoneum HISTORY OF PRESENT ILLNESS: Patient was transferred out of the ICU over the weekend. Patient denies any abdominal pain. He is status post sigmoid colectomy with end colostomy and manual fecal disimpaction for perforated sigmoid colon and fecal impaction on 10/20/20. Patient's ostomy is functioning. He has having stool and flatus through the ostomy. He denies any nausea or vomiting. He is status post cardioversion and cardiology has signed off. He does have generalized edema with low albumin and has been switched over to oral Lasix. He is tolerating his low fiber diet. Vascular has switched patient to Eliquis for anticoagulation for his PE and DVT. Afebrile. CBC pending creatinine 1.08 culture from incisional drainage pending PHYSICAL EXAM: VITAL SIGNS: Reviewed. GENERAL: Well-developed in no acute distress. HEENT: No sclera icterus. Extraocular movements grossly intact. Moist buccal mucosa. Head is atraumatic, normocephalic. ABDOMEN: Soft. Nondistended. There is stool and air present in ostomy bag. Distal incision is now open after abdoulaye removed with dressing saturated with serosanguineous fluid. NEUROLOGIC: Alert and oriented. Cranial nerves II through XII grossly intact. ASSESSMENT: 1. Perforated sigmoid colon and fecal impaction status post sigmoid colectomy with end colostomy and manual fecal disimpaction 2. Sepsis secondary to Peritonitis present on admission 3. Severe protein calorie malnutrition PLAN: -Continue supportive care -Continue low fiber diet -Continue antibiotics per ID -Ensure 3 times a day -Encourage incentive spirometer use -Encourage patient to increase activity -Discharge planning in progress. Plan is to discharge to [facility] when cleared by consulting physicians Physician Business Unit Director note has been reviewed by physician. Signing provider agrees with the documented findings, assessment, and plan of care. Objective - Vital Signs Vital signs: Vital Signs Temp 98.2 F 11/01/20 03:25 Pulse 56 L 11/01/20 03:25 Resp 17 11/01/20 03:25 BP 112/56 11/01/20 03:25 Pulse Ox 96 11/01/20 07:49 Intake & Output 10/31/20 11/01/20 11/01/20 18:59 06:59 18:59 Intake Total 1500 240 Output Total 2150 475 Balance -650 -235 Weight 77.5 kg 77.5 kg Intake: IV 140 .9 40 Piperacillin-Tazobactam 3 100 .375 gm In Sodium Chloride 0.9% 100 ml @ 25 mls/hr IVPB Q8HR [facility] Rx# :[id number] Oral 1360 240 Output: Drainage 0 Right Abdomen 0 Urine 1700 475 Stool 450 Other: Voiding Method Indwelling Catheter Indwelling Catheter - Labs CBC & Chem 7: 10/30/20 09:42 10/31/20 07:44 Labs: Microbiology - Last 24 Hours (Table) 10/31/20 15:30 Gram Stain - Preliminary Abdomen Wound Culture - Preliminary
[2020-11-01 13:22] LABS: Basophils % (A) 0 %; Eosinophils # (A) 0.1 k/uL (0-0.7); Eosinophils % (A) 1 %; HCT 35.3 % (39.0-53.0); HGB 11.4 gm/dL (13.0-17.5); Lymphocytes # (A) 1.1 k/uL (1.0-4.8); Lymphocytes % (A) 11 %; MCH 29.9 pg (25.0-35.0); MCHC 32.2 g/dL (31.0-37.0); MCV 92.8 fL (80.0-100.0); Mean Platelet Volume 7.8; Monocytes # (A) 0.5 k/uL (0-1.0); Monocytes % (A) 5 %; Neutrophils # (A) 8.4 k/uL (1.3-7.7); Neutrophils % (A) 83 %; Platelet Count 414 k/uL (150-450); RBC 3.81 m/uL (4.30-5.90); WBC 10.2 k/uL (3.8-10.6)
--- NOTE | 2020-11-01 14:46 | CDI ---
Documentation Clarification Form Date: 11/01/2020 02:32:23 PM From: Uzma Amato RN, CCDS Admit Date: 10/20/2020 05:57:00 PM Patient Name: Justo Bright Visit Number: [id number] ATTENTION: The Clinical Documentation Specialists (CDI) and [facility] Coding Staff appreciate your assistance in clarifying documentation. Please respond to the clarification below the line at the bottom and electronically sign. The CDI & [facility] Coding staff will review the response and follow-up if needed. Please note: Queries are made part of the Legal Health Record. If you have any questions, please contact the author of this message via ITS. Dr. Mirian Ferguson "Mild hypoxic respiratory failure has been documented and requires and acuity to accurately reflect the patients SOI/ROM. History/Risk Factors: Sepsis with sigmoid perforation with sigmoid colectomy and colostomy, Bilateral PE, Bilateral DVT, Paroxysmal Atrial Fib, CVA with right hemiparesis, HTN Tobacco use: never a smoker Home oxygen: no documented Home O2 Clinical Indicators: 10/21-11/01 Attending Progress Notes: "With no evidence of RV strain on CT or echo -Mild hypoxic respiratory failure." 10/21 07 Vital signs: HR 80, RR 30, B/P 100/53, Spo2 96% 2L NC Pulse oximetry: per unit protocol Attending Lung/Breathing assessment: "PULMONARY: Chest is clear to auscultation, no wheezing or crackles." Treatment: Breathing treatments: None ordered Pulse ox: Per unit protocol 10/21 O2: patient is maintained on 2L NC to room air In your professional opinion, can you please clarify if these findings signify one of the following conditions? Hypoxic Respiratory Failure ruled out Acute Hypoxic Respiratory Failure Acute on Chronic Hypoxic Respiratory Failure Chronic Hypoxic Respiratory Failure Acute Respiratory Insufficiency Other Diagnosis, please specify Unable to determine No respiratory failure but does have hypoxia which is acute MTDD
--- NOTE | 2020-11-01 14:59 | P.DS ---
<PalmiraMere sheppard - Last Filed: 11/01/20 14:52> Providers Expected date of discharge: 11/01/20 Hospital Course: Discharge diagnosis 1. Perforated sigmoid colon and fecal impaction status post sigmoid colectomy with end colostomy and manual fecal disimpaction 2. Sepsis secondary to Peritonitis present on admission 3. Severe protein calorie malnutrition 4. History of bilateral pulmonary emboli and bilateral lower extremity DVT Hospital course 85-year-old male comes in the hospital after just being discharged. Patient has complaints of increased abdominal pain mostly right lower quadrant along with lack of urination. Patient nauseated. No vomiting. He did have a bowel movement yesterday. During his recent hospitalization he was treated for severe constipation and abdominal pain which did improve. Denies shortness of breath. No fevers. Patient scheduled for outpatient colonoscopy to evaluate worsening constipation complaints. Patient's white blood cell count is normal. Lactic acid 1.5. Mildly tachycardic. He is afebrile. Pulse ox 92% on room air. CAT scan abdomen performed which demonstrates improvement in his stool burden. Increased inflammatory changes right lower quadrant with free fluid and free air also noted. Patient says his pain is mostly right lower quadrant although admits to it being present diffusely but less severe. On the computed tomography scan they suspected possible acute PE. Patient was then sent for CT chest which confirms bilateral pulmonary embolism moderate burden. Patient was seen by multiple consultants during this admission and did require to be placed in the ICU. He is status post sigmoid colectomy with end colostomy and manual fecal disimpaction for perforated sigmoid colon and fecal impaction. He is tolerating diet. His ostomy is functioning. He has stool and gas present in colostomy bag. He is ambulating. He is afebrile. Patient also was found to have bilateral PE and DVT of the lower extremities. He is now anticoagulated with Eliquis. Also during this admission he did require cardioversion for his atrial fibrillation. He is cleared by consultants for discharge. Patient will be discharged to [facility] for further rehabilitation. Please refer to chart for any further details. Physician Plaster Mixer note has been reviewed by physician. Signing provider agrees with the documented findings, assessment, and plan of care. Patient Condition at Discharge: Stable Plan - Discharge Summary New Discharge Prescriptions: New Apixaban [Eliquis Starter Pack (for VTE)] 0 mg PO DIRECTED 30 Days #1 pack Amoxicillin/Potassium Clav [Augmentin 875-125 Tablet] 1 tab PO Q12HR 7 Days #14 tab Acetaminophen Tab [Tylenol Tab] 650 mg PO Q4H PRN #30 tablet PRN Reason: Pain No Action Tamsulosin HCl [Flomax] 0.4 mg PO HS Multivitamins, Thera [Multivitamin (formulary)] 1 tab PO DAILY Simvastatin [Zocor] 20 mg PO DAILY Memantine HCl 10 mg PO BID polyethylene glycoL 3350 [Miralax] 17 gm PO DAILY 30 Days #30 powd.pack Lactulose [Cephulac] 30 gm PO DAILY 30 Days #30 ml Discharge Medication List Multivitamins, Thera [Multivitamin (formulary)] 1 tab PO DAILY 02/14/18 [History] Tamsulosin HCl [Flomax] 0.4 mg PO HS 02/14/18 [History] Memantine HCl 10 mg PO BID 10/16/20 [History] Simvastatin [Zocor] 20 mg PO DAILY 10/16/20 [History] Lactulose [Cephulac] 30 gm PO DAILY 30 Days #30 ml 10/19/20 [Rx] polyethylene glycoL 3350 [Miralax] 17 gm PO DAILY 30 Days #30 powd.pack 10/19/20 [Rx] Apixaban [Eliquis Starter Pack (for VTE)] 0 mg PO DIRECTED 30 Days #1 pack 10/24/20 [Rx] Acetaminophen Tab [Tylenol Tab] 650 mg PO Q4H PRN #30 tablet 11/01/20 [Rx] Amoxicillin/Potassium Clav [Augmentin 875-125 Tablet] 1 tab PO Q12HR 7 Days #14 tab 11/01/20 [Rx] Follow up Appointment(s)/Referral(s): Josh Mcallister MD [Primary Care Provider] - 1-2 days [facility], [NON-STAFF] - 1-2 Days [facility] [NON-STAFF] - As Needed Eleuterio Dean MD [Medical Doctor] - 1 Week Toney Olivares MD [STAFF PHYSICIAN] - 1 Week Patient Instructions/Handouts: Colostomy Care (ED), Colostomy Care (DC), Low Fiber Diet (DC), Colectomy Diet (DC) Activity/Diet/Wound Care/Special Instructions: Medicine service to complete discharge med rec No lifting over 10 pounds You may shower. No soaking or tub baths for 2 weeks Very light activity until you are reevaluated at your follow up appointment with your surgeon Diet low fiber Discharge Disposition: TRANSFER TO SNF/ECF Care Plan Goals (MU): Abdominal Incision Care: Colostomy Care Recommendations for Rehab transition: Last Pouching System change: 10.31.2020 Convatec flange Moldable #[id number] (three from the hospital) Convatec pouches with filter #[id number] (three from the hospital) No Sting prep pads (10) from the hospital Ostomy Powder (one from the hospital) Rehab please arrange for disposable pouches and precuts in 2-3 weeks as Mr Bright progresses Emptying the pouching system when half full Entire pouching system change every 3-5 days until ready for disposable pouches <Eleuterio Dean - Last Filed: 11/01/20 15:24> Providers Date of admission: 10/20/20 17:57 Attending physician: Eleuterio Dean Consults: 10/20/20 21:17 Consult Physician Routine Consulting Provider: Phil Marcus Consult Reason/Comments: med mgmt Do you want consulting provider notified?: Yes Consult Physician Routine Consulting Provider: Toney Olivares Consult Reason/Comments: med mgmt Do you want consulting provider notified?: Yes, Notify in am 10/20/20 21:25 Consult Physician Routine Consulting Provider: Mirian Ferguson Consult Reason/Comments: Medical management Do you want consulting provider notified?: Yes, Notify in am Primary care physician: Josh Mcallister - Discharge Diagnosis(es) (1) Bowel perforation Current Visit: Yes Status: Acute Hospital Course: As above. Patient doing well at this time. Wound that was identified yesterday after removing abdoulaye appears clean. No erythema. No tenderness. Continue anticoagulation post discharge. Follow-up in the office 1 week.
--- NOTE | 2020-11-01 16:16 | P.PN ---
Subjective Progress Note Date: 11/01/20 Principal diagnosis: Status post Kumar's procedure with sigmoid colectomy and colostomy for perforated sigmoid colon and fecal impaction This is an 85-year-old male who presents to the emergency department, complaining of unable to urinate. The patient also has not had a bowel movement in 3 weeks. He apparently was recently admitted for constipation but then was discharged. The patient has a history of colitis. The patient apparently feels nauseated, and his abdomen is distended. He denies any vomiting. Denied any chest pain. He also denied any shortness of breath. He apparently was found have a perforated viscus, and underwent a Kumar's procedure by Dr. Dean. He is postop day #1. Dr. Dean called me yesterday and asked whether or not we could put the patient in the ICU overnight. He was concerned given the patient's age. In addition, in the process of evaluating the patient, the patient was found to have bilateral pulmonary emboli, moderate clot burden, right greater than left, and also bilateral lower extremity DVT. Because of the recent surgery, he cannot be heparinized. Apparently, the vascular surgeon was called, and at this point, no interventions are planned. The patient apparently has a history of CVA, hypertension, and chronic prostate disease. He is currently on lactulose, MiraLAX, multiple vitamins, Flomax, Namenda, and Zocor. He is resting comfortably in the ICU. He is on O2 at 2 L. He is getting dextrose, with half-normal saline, with 20 mEq of potassium at 125 mL an hour. I didn't passed onto the nurse, that may be vascular surgery would prefer to do a [place] filter. The patient is without distress. On 10/31/2020 patient seen in follow-up on selective care unit. He is awake and alert, in no acute distress, he is on room air, breathing comfortably, no wheezing, no rhonchi, no complaints of chest discomfort. He status post colectomy and colostomy with Kumar's pouch for perforated bowel, postoperative day #11. He is left lower quadrant colostomy is producing soft and liquid brown stool, abdomen is nontender, abdominal incision is covered with the silver dressing, patient has active bowel sounds, she is tolerating oral diet, no nausea or vomiting, today's labs have been reviewed, electrolytes within normal limits, B1 is 20 creatinine is 1, LFTs are within normal limits. His generalized edema has significantly improved, he remains on a once daily dose of IV Lasix, he is in -1.3 L net fluid balance over the last 24 hours, his last chest x-ray on 10/28/2020 showed left lower lobe pneumonia versus edema, atelectasis or pleural effusion with a component of interstitial edema. ID service is following, patient is currently covered with Zosyn for abdominal cultures positive for enterococcus and E. coli anaerobes. Charge planning is in progress for discharge to subacute rehab facility, and the plan is to switch the patient to oral antibiotics in the form of ciprofloxacin and Augmentin at the time of discharge. Patient was reevaluated today on 11/01/2020, patient is sitting in bed, doing well, asymptomatic, on room air, no significant deterioration in his clinical status, he is postoperative day #12. His colostomy seems to be working fine, very functional, and his abdominal incision is covered with silver dressing. CBC is relatively normal WBC is 10.2 hemoglobin is 11.4 a left lites are normal renal profile is normal Objective - Vital Signs Vital signs: Vital Signs Temp 98.6 F 11/01/20 12:00 Pulse 53 L 11/01/20 13:20 Resp 16 11/01/20 13:20 BP 103/56 11/01/20 12:00 Pulse Ox 93 L 11/01/20 12:00 Intake & Output 10/31/20 11/01/20 11/01/20 18:59 06:59 18:59 Intake Total 3828 373 4051 Output Total 2150 475 50 Balance -650 -235 1030 Weight 77.5 kg 77.5 kg Intake: IV 140 160 .9 40 60 Piperacillin-Tazobactam 3 100 100 .375 gm In Sodium Chloride 0.9% 100 ml @ 25 mls/hr IVPB Q8HR [facility] Rx# :[id number] Oral 1360 240 920 Output: Drainage 0 Right Abdomen 0 Urine 1700 475 Stool 450 50 Other: Voiding Method Indwelling Catheter Indwelling Catheter Indwelling Catheter - Exam GENERAL: The patient is alert and oriented x3, not in any acute distress. Well developed, well nourished. HEENT: Pupils are round and equally reacting to light. EOMI. No scleral icterus. No conjunctival pallor. Normocephalic, atraumatic. No pharyngeal erythema. No thyromegaly. CARDIOVASCULAR: S1 and S2 present. No murmurs, rubs, or gallops. PULMONARY: Chest is clear to auscultation, no wheezing or crackles. ABDOMEN: Soft, nontender, nondistended, normoactive bowel sounds. No palpable organomegaly. Has a left-sided colostomy. Was having normal bowel movements into that MUSCULOSKELETAL: No joint swelling or deformity. EXTREMITIES: No cyanosis, clubbing, or pedal edema. NEUROLOGICAL: Gross neurological examination did not reveal any focal deficits. Have significant generalized weakness SKIN: No rashes. - Labs CBC & Chem 7: 11/01/20 12:33 10/31/20 07:44 Labs: Abnormal Lab Results - Last 24 Hours (Table) 11/01/20 Range/Units 12:33 RBC 3.81 L (4.30-5.90) m/uL Hgb 11.4 L (13.0-17.5) gm/dL Hct 35.3 L (39.0-53.0) % Neutrophils # 8.4 H (1.3-7.7) k/uL Microbiology - Last 24 Hours (Table) 10/31/20 15:30 Gram Stain - Preliminary Abdomen Wound Culture - Preliminary Assessment and Plan Assessment: Impression: Postoperative day #12, status post Kumar's procedure with sigmoid colectomy and colostomy for perforated sigmoid colon and fecal impaction. Bilateral pulmonary emboli requiring anticoagulation therapy. Bilateral lower deep vein thrombosis History of CVA and subdural hematoma. New-onset atrial fibrillation with RVR requiring cardioversion History of hypertension. Chronic constipation. Recommendation: Agree with discharge planning today, patient is going to rehab, Continue present treatment plan including anticoagulation therapy for his thromboembolic disease and for his atrial fibrillation. Follow-up on outpatient basis post discharge. Time with Patient: Less than 30
[2020-11-01] MEDS: TAMSULOSIN 0.4 MG CAP.ER.24H PO SCH (20:29)
[2020-11-01 20:46] LABS: Glucose,Whole Blood 128 mg/dL (75-99)
--- NOTE | 2020-11-01 22:53 | PN ---
PROGRESS NOTE DATE OF SERVICE: 11/01/2020 REASON FOR FOLLOWUP: Abdominal abscess from perforated sigmoid colon. INTERVAL HISTORY: The patient is currently afebrile. The patient is breathing comfortably. The patient denies having any chest pain or shortness of breath or cough. No abdominal pain. PHYSICAL EXAMINATION: Blood pressure 108/58 with a pulse of 73, temperature 98.6. He is 93% on room air. General description is an elderly male lying in bed in no distress. RESPIRATORY SYSTEM: Unlabored breathing. Clear to auscultation anteriorly. HEART: S1, S2. Regular rate and rhythm. ABDOMEN: Soft. No tenderness. LABS: Hemoglobin 11.4, white count 10.2. DIAGNOSTIC IMPRESSION AND PLAN: Patient with an abdominal abscess from perforated sigmoid colon. Abdominal culture with Enterococcus, E coli and anaerobes. Patient has received about 12 days of Zosyn. He will finish therapy with a 7-day course of oral Augmentin on discharge. Discussed with the nurse practitioner for the admitting team. MMODL / IJN: [id number] /
[2020-11-02 06:11] LABS: Glucose,Whole Blood 131 mg/dL (75-99)
[2020-11-02] MEDS: PANTOPRAZOLE 40 MG TABLET PO SCH (06:56)
[2020-11-02] MEDS: PIPERACILLIN-TAZOBACTAM 3.375 GM in SODIUM CHLORIDE 0.9% 100 ML IVPB SCH (09:04)
[2020-11-02] MEDS: METOPROLOL TARTRATE 25 MG TAB PO SCH (09:04)
[2020-11-02] MEDS: MEMANTINE 10 MG TAB PO SCH (09:04)
[2020-11-02] MEDS: AMIODARONE 200 MG TAB PO SCH (09:04)
[2020-11-02] MEDS: FUROSEMIDE 20 MG TAB PO SCH (09:04)
[2020-11-02] MEDS: polyethylene glycoL 3350 17 GM POWD.PACK PO SCH (09:04)
--- NOTE | 2020-11-02 11:23 | P.PN ---
Subjective Progress Note Date: 10/30/20 Principal diagnosis: Pneumoperitoneum Perforated sigmoid colon and fecal impaction status post sigmoid colectomy with end colostomy and manual fecal disimpaction, postop day #7 Sepsis secondary to Peritonitis present on admission Severe protein calorie malnutrition 85 years old male with past medical history of CVA/TIA, hypertension, residual right hemiparesis. He was admitted with abdominal pain and CAT scan of the abdomen showing free air and free fluid. He underwent exploratory laparotomy with sigmoid colectomy and colostomy and manual disimpaction Also on CT of the abdomen there was suspicion of PE which was shown on CT of the chest to have bilateral PE and bilateral lower extremity DVT on ultrasound of the lower extremities. Patient currently is on heparin drip. Echocardiogram: Showed ejection fraction of 45-50% with slight apical hypokinesia. Vascular surgery with Dr. Kang were consulted and they recommended to continue with heparin drip and this patient bleeds then IVC filter would be indicated per their recommendation. Patient is currently covered with Zosyn and ID team on the case 10/28/2020 Patient is seen and evaluated sitting up in bedside chair in the ICU. Patient is is status post sigmoid colectomy with end colostomy and manual fecal disimpaction for perforated sigmoid colon and fecal impaction on 10/20/20. Patient's ostomy is functioning. He has having stool and flatus through the ostomy. He denies any nausea or vomiting. He is status post cardioversion and remains in normal sinus rhythm. He does have generalized edema with low albumin. He is tolerating his low fiber diet. Vascular has switched patient to Eliquis for anticoagulation for his PE and DVT. Afebrile. WBC8.3 Hgb 12.1 albumin 2.2 Cardiology is on board for paroxysmal atrial fibrillation, remains in normal sinus rhythm on amiodarone 400 mg twice a day; patient is believed to be volume overloaded likely secondary to his third spacing from protein calorie malnutrition and received an extra dose of Lasix; continues to have fair urine output 10/29/2020 Patient is seen and evaluated in room at bedside; has been transferred to selective care unit The patient is postop day #9, the patient underwent sigmoid colectomy and colostomy and Kumar's pouch. He is doing well. He remains on Zosyn and Flagyl. He is tolerating his diet. He has positive output and his colostomy bag which is essentially functional and the patient has a clean wound. He is on no pressors. He is requiring Lasix 40 mg daily and the patient remains in a negative fluid balance and he is producing adequate amount of urine output and the swelling is also improving. He continues to have a DONOVAN drain in his right abdomen. His cardiac rhythm is sinus. He is back on anticoagulation. He got cardioverted and the patient is maintained on a combination of amiodarone and Toprol. No other significant events. He got transferred out of the intensive care unit yesterday. He is on room air oxygen. 10/30/2020 Patient is seen and evaluated in room at bedside; the patient is postop day #10 post colectomy and colostomy with Kumar's pouch. Still on same antibiotic coverage with Zosyn and Flagyl. Afebrile. Tolerating diet. White cell count at 8.2. He has a polymicrobial growth of the abdominal wound including enterococcus, E. coli and anaerobes. He is covered with appropriate antibiotic coverage. DONOVAN drain is in still in place. His cardiac rhythm is sinus. He is on a combination of metoprolol and amiodarone. He is on long-term medical condition with Eliquis. No bleeding complications. He is also taking diuretics and his fluid balance is negative around 1.4 L over the past 24 hours. Lasix is getting 40 mg by mouth on a daily basis. I'm quite happy with her with his negativity and fluid balance. He is using incentive spirometer.He is on room air oxygen. Patient remains on Lasix 40 mg daily with negative fluid balance; we will continue to monitor electrolytes closely; remains on IV Zosyn and Flagyl 10/31/2020 Patient is clinically doing well. Patient is having good bowel movements possibility of discharge soon to subacute rehabitation. 11/01/2020 Patient is tolerating diet well. Patient chest x-ray is showing infiltrate in bilateral lower lung wise. Have any fever probably atelectasis. 11/02/2020 Patient is doing well and is being discharged today in stable medical condition to subacute rehabilitation. Patient is being discharged on Eliquis and Augmentin. Is bit drowsy today probably because of Constitutional: Denied any fatigue denied any fever. Cardio vascular: denied any chest pain, palpitations Gastrointestinal denied any nausea vomiting Pulmonary: Denied any shortness of breath cough Neurologic denied any new focal deficits All inpatient medications were reviewed and appropriate changes in these medications as dictated in the interval history and assessment and plan. Objective - Vital Signs Vital signs: Vital Signs Temp 98.9 F 11/02/20 04:00 Pulse 56 L 11/02/20 04:00 Resp 18 11/02/20 04:00 BP 95/54 11/02/20 04:00 Pulse Ox 92 L 11/02/20 04:00 Intake & Output 11/01/20 11/02/20 11/02/20 18:59 06:59 18:59 Intake Total 1940 Output Total 1450 900 Balance 490 -900 Weight 77.5 kg 78 kg Intake: IV 300 .9 100 Piperacillin-Tazobactam 3 200 .375 gm In Sodium Chloride 0.9% 100 ml @ 25 mls/hr IVPB Q8HR [facility] Rx# :[id number] Oral 1640 Output: Urine 1100 500 Stool 350 400 Other: Voiding Method Indwelling Catheter Indwelling Catheter - Exam PHYSICAL EXAMINATION: GENERAL: The patient is drowsy and oriented x3, not in any acute distress. Well developed, well nourished. HEENT: Pupils are round and equally reacting to light. EOMI. No scleral icterus. No conjunctival pallor. Normocephalic, atraumatic. No pharyngeal erythema. No thyromegaly. CARDIOVASCULAR: S1 and S2 present. No murmurs, rubs, or gallops. PULMONARY: Chest is clear to auscultation, no wheezing or crackles. ABDOMEN: Soft, nontender, nondistended, normoactive bowel sounds. No palpable organomegaly. Has a left-sided colostomy. Was having normal bowel movements into that MUSCULOSKELETAL: No joint swelling or deformity. EXTREMITIES: No cyanosis, clubbing, or pedal edema. NEUROLOGICAL: Gross neurological examination did not reveal any focal deficits. Have significant generalized weakness SKIN: No rashes. - Labs CBC & Chem 7: 11/01/20 12:33 10/31/20 07:44 Labs: Abnormal Lab Results - Last 24 Hours (Table) 11/01/20 11/01/20 11/02/20 Range/Units 12:33 20:44 06:10 RBC 3.81 L (4.30-5.90) m/uL Hgb 11.4 L (13.0-17.5) gm/dL Hct 35.3 L (39.0-53.0) % Neutrophils # 8.4 H (1.3-7.7) k/uL POC Glucose (mg/dL) 128 H 131 H (75-99) mg/dL Microbiology - Last 24 Hours (Table) 10/31/20 15:30 Gram Stain - Preliminary Abdomen Wound Culture - Preliminary Assessment and Plan Plan: -Bowel/sigmoid perforation status post exploratory laparotomy, sigmoid colectomy and colostomy with manual fecal disimpaction -Bilateral pulmonary emboli secondary to bilateral DVT. With no evidence of RV citrine on CT or echo -Mild hypoxic respiratory failure -Atrial fibrillation with RVR -Secondary bacterial peritonitis secondary to bowel perforation -History of CVA with right hemiparesis -Hypertension Plan: Continue with present medications, continue with Eliquis for a recent DVT. Patient is also on amiodarone for atrial fibrillation. Patient probably will be discharged today to subacute rehabilitation. GI Prophylaxis: Pepcid
[2020-11-02 11:31] VITALS: RESP 16; TEMP 97.9
[2020-11-02] MEDS: SODIUM CHLORIDE 0.9% 1,000 ML IV SCH (12:19)
[2020-11-02 12:22] VITALS: BP 106/61; PULSE 62
--- NOTE | 2020-11-03 13:47 | CDI ---
Documentation Clarification Form Date: 11/03/2020 01:45:00 PM From: Madalyn Mcginnis CCS Admit Date: 10/20/2020 05:57:00 PM Patient Name: Justo Bright Visit Number: [id number] Discharge Date: 11/02/2020 01:35:00 PM ATTENTION: The Clinical Documentation Specialists (CDI) and [facility] Coding Staff appreciate your assistance in clarifying documentation. Please respond to the clarification below the line at the bottom and electronically sign. The CDI & [facility] Coding staff will review the response and follow-up if needed. Please note: Queries are made part of the Legal Health Record. If you have any questions, please contact the author of this message via ITS. Dr. Eleuterio Dean The final diagnosis of the pathology report states: Benign colonic mucosa with diverticulosis, ulceration with mucosal and transmural necrosis, fibrosis, subserosal abscess and acute serositis consistent with perforation Documentation states: Bowel perforation Patient history/risk factors: Fecal Impaction, DVT, Sepsis, Peritonitis Clinical Indicators: Peritonitis Treatment: Sigmoidectomy with colostomy, Rocephin IV, Levaquin IV, Zosyn IV In your professional opinion, do you agree with the pathology report specifying diverticulosis as perforated? Yes No Other (please specify) Unable to determine Patient with sigmoid colon perforation either on the basis of diverticulitis or stercoral ulcer. MTDD
--- NOTE | 2020-11-03 13:58 | CDI ---
Documentation Clarification Form Date: 11/03/2020 01:56:00 PM From: Madalyn Mcginnis CCS Admit Date: 10/20/2020 05:57:00 PM Patient Name: Justo Bright Visit Number: [id number] Discharge Date: 11/02/2020 01:35:00 PM ATTENTION: The Clinical Documentation Specialists (CDI) and [facility] Coding Staff appreciate your assistance in clarifying documentation. Please respond to the clarification below the line at the bottom and electronically sign. The CDI & [facility] Coding staff will review the response and follow-up if needed. Please note: Queries are made part of the Legal Health Record. If you have any questions, please contact the author of this message via ITS. Dr. Eleuterio Dean Fluid overload with diastolic dysfunction is documented in PNs (10/25-10/31). Significant amount of fluid overload yesterday with extensive edema in all 4 extremities and the patient was given a dose of Lasix and the neck fluid balance over the past 24 hours has been -1 L. He is afebrile. Mildly decreased ejection fraction 45-50% with findings concerning for grade 3 diastolic dysfunction History/Risk Factors: Post Op Sigmoidectomy, Perforation, Respiratory Failure, Sepsis, Peritonitis Clinical Indicators: Fluid overload Lab findings: BNP 4270 C-Xray: Possible left lower lobe atelectasis versus pneumonia and associated effusion.PICC line is withdrawn in the interval ECHO: There is moderate concentric left ventricular hypertrophy.Overall left ventricular systolic function is mildly impaired. EF between 45 - 50 %.Increased LAP Grade 3 Diastolic Dysfunction. Other Clinical Indicators: Treatment: Lasix 40 mg IV In your professional opinion, can you please clarify fluid overload with diastolic dysfunction? Fluid overload Chronic diastolic CHF Acute diastolic CHF Acute/Chronic diastolic CHF Other, please specify Unable to determine Defer to medical consultants regarding CHF MTDD
--- NOTE | 2020-11-10 11:51 | CDI ---
Documentation Clarification Form Date: 11/10/2020 11:50:00 AM From: Madalyn Mcginnis CCS Admit Date: 10/20/2020 05:57:00 PM Patient Name: Justo Bright Visit Number: [id number] Discharge Date: 11/02/2020 01:35:00 PM ATTENTION: The Clinical Documentation Specialists (CDI) and [facility] Coding Staff appreciate your assistance in clarifying documentation. Please respond to the clarification below the line at the bottom and electronically sign. The CDI & [facility] Coding staff will review the response and follow-up if needed. Please note: Queries are made part of the Legal Health Record. If you have any questions, please contact the author of this message via ITS. Dr. Josh Mcallister Fluid overload with diastolic dysfunction is documented in PNs (10/25-10/31). Significant amount of fluid overload yesterday with extensive edema in all 4 extremities and the patient was given a dose of Lasix and the neck fluid balance over the past 24 hours has been -1 L. He is afebrile. Mildly decreased ejection fraction 45-50% with findings concerning for grade 3 diastolic dysfunction History/Risk Factors: Post Op Sigmoidectomy, Perforation, Respiratory Failure, Sepsis, Peritonitis Clinical Indicators: Fluid overload Lab findings: BNP 4270 C-Xray: Possible left lower lobe atelectasis versus pneumonia and associated effusion.PICC line is withdrawn in the interval ECHO: There is moderate concentric left ventricular hypertrophy.Overall left ventricular systolic function is mildly impaired. EF between 45 - 50 %.Increased LAP Grade 3 Diastolic Dysfunction. Other Clinical Indicators: Treatment: Lasix 40 mg IV In your professional opinion, can you please clarify fluid overload with diastolic dysfunction? Fluid overload Chronic diastolic CHF Acute diastolic CHF Acute/Chronic diastolic CHF Other, please specify Unable to determine MTDD
--- NOTE | 2020-11-15 11:02 | CDI ---
Documentation Clarification Form Date: 11/15/2020 11:00:00 AM From: Madalyn Mcginnis CCS Admit Date: 10/20/2020 05:57:00 PM Patient Name: Justo Bright Visit Number: [id number] Discharge Date: 11/02/2020 01:35:00 PM ATTENTION: The Clinical Documentation Specialists (CDI) and [facility] Coding Staff appreciate your assistance in clarifying documentation. Please respond to the clarification below the line at the bottom and electronically sign. The CDI & [facility] Coding staff will review the response and follow-up if needed. Please note: Queries are made part of the Legal Health Record. If you have any questions, please contact the author of this message via ITS. Dr. Josh Mcallister Fluid overload with diastolic dysfunction is documented in PNs (10/25-10/31). Significant amount of fluid overload yesterday with extensive edema in all 4 extremities and the patient was given a dose of Lasix and the neck fluid balance over the past 24 hours has been -1 L. He is afebrile. Mildly decreased ejection fraction 45-50% with findings concerning for grade 3 diastolic dysfunction History/Risk Factors: Post Op Sigmoidectomy, Perforation, Respiratory Failure, Sepsis, Peritonitis Clinical Indicators: Fluid overload Lab findings: BNP 4270 C-Xray: Possible left lower lobe atelectasis versus pneumonia and associated effusion.PICC line is withdrawn in the interval ECHO: There is moderate concentric left ventricular hypertrophy.Overall left ventricular systolic function is mildly impaired. EF between 45 - 50 %.Increased LAP Grade 3 Diastolic Dysfunction. Other Clinical Indicators: Treatment: Lasix 40 mg IV In your professional opinion, can you please clarify fluid overload with diastolic dysfunction? Fluid overload Chronic diastolic CHF Acute diastolic CHF Acute/Chronic diastolic CHF Other, please specify Unable to determine MTDD
== END 2020-11-02 13:35 | DRG 853 ==
LOC: EC 13:45 → 3SCARD 17:57 → 2SICU 18:39 → 3SCARD 10-28 17:51
PROVIDERS: ADMIT Surgery; ATTEND Surgery
PROC: 0DTN0ZZ Resection of Sigmoid Colon, Open Approach (ICD-10-PCS; 2020-10-20)
PROC: 0D1M0Z4 Bypass Descending Colon to Cutaneous, Open Approach (ICD-10-PCS; principal; 2020-10-20 18:04)
PROC: 02HV33Z Insertion of Infusion Device into Superior Vena Cava, Percutaneous Approach (ICD-10-PCS; 2020-10-24)
PROC: 3E03317 Introduction of Other Thrombolytic into Peripheral Vein, Percutaneous Approach (ICD-10-PCS; 2020-10-24)
PROC: 5A2204Z Restoration of Cardiac Rhythm, Single (ICD-10-PCS; 2020-10-25)
DX: A41.81 Sepsis due to Enterococcus (principal); J96.91 Respiratory failure, unspecified with hypoxia; K65.1 Peritoneal abscess; E43 Unspecified severe protein-calorie malnutrition; I50.31 Acute diastolic (congestive) heart failure; I26.09 Other pulmonary embolism with acute cor pulmonale; K63.3 Ulcer of intestine; I82.411 Acute embolism and thrombosis of right femoral vein; I82.432 Acute embolism and thrombosis of left popliteal vein; I69.351 Hemiplegia and hemiparesis following cerebral infarction affecting right dominant side; I82.531 Chronic embolism and thrombosis of right popliteal vein; I48.19 Other persistent atrial fibrillation; K56.7 Ileus, unspecified; K57.20 Diverticulitis of large intestine with perforation and abscess without bleeding; I82.612 Acute embolism and thrombosis of superficial veins of left upper extremity; L89.152 Pressure ulcer of sacral region, stage 2; F03.90 Unspecified dementia, unspecified severity, without behavioral disturbance, psychotic disturbance, mood disturbance, and anxiety; I95.9 Hypotension, unspecified; I11.0 Hypertensive heart disease with heart failure; Z20.822 Contact with and (suspected) exposure to COVID-19; N40.1 Benign prostatic hyperplasia with lower urinary tract symptoms; R33.8 Other retention of urine; E78.5 Hyperlipidemia, unspecified; I45.10 Unspecified right bundle-branch block; K56.41 Fecal impaction; Z68.23 Body mass index [BMI] 23.0-23.9, adult; Z71.3 Dietary counseling and surveillance; Z86.711 Personal history of pulmonary embolism; Z79.899 Other long term (current) drug therapy; Z86.010 Personal history of colon polyps
CPT/HCPCS: 36415; 36573; 51702; 71045; 71275; 74019; 74177; 80048; 80053; 81001; 83605; 83735; 83880; 84100; 84484; 85025; 85027; 85610; 85730; 87040; 87070; 87075; 87077; 87186; 87205; 87635; 88307; 92960; 93005; 93306; 93970; 94760; 96361; 96365; 96375; 99291

== ENCOUNTER → 2021-02-28 | Outpatient (CLI) | payer MEDICARE ==
--- NOTE | 2021-03-07 14:41 | P.HOLTER ---
24 hour Holter monitor shows sinus mechanism with first-degree AV block IVCD Daytime bradycardia in the 30s Heart rates range from 34-66 beats a minute average 45 beats a minute occasional PVCs Impression Significant daytime bradycardia with a prolonged [place] interval and IVCD
--- NOTE | 2021-03-08 09:06 | HM ---
24 hour Holter monitor shows sinus mechanism with first-degree AV block IVCD Daytime bradycardia in the 30s Heart rates range from 34-66 beats a minute average 45 beats a minute occasional PVCs Impression Significant daytime bradycardia with a prolonged [place] interval and IVCD MTDD
== END | disposition home or self-care (01) ==
LOC: RADECHMAIN 12:16
PROVIDERS: ATTEND Internal Medicine
DX: R94.31 Abnormal electrocardiogram [ECG] [EKG] (principal); I45.4 Nonspecific intraventricular block; R00.1 Bradycardia, unspecified
CPT/HCPCS: 93225; 93226

== ENCOUNTER 2021-05-01 16:30 | Emergency (ER) | payer MEDICARE ==
--- NOTE | 2021-05-01 17:02 | ED ---
General Adult HPI - General Chief complaint: Abdominal Pain Stated complaint: problems with colostomy bag, sent from Dr Time Seen by Provider: 05/01/21 16:46 Source: patient, RN notes reviewed, old records reviewed Mode of arrival: wheelchair Limitations: no limitations - History of Present Illness Initial comments: 85-year-old male presenting with decreased stool output from his ostomy and some minimal abdominal pain. No fever. Patient had a colostomy performed in September of this year secondary to bowel obstruction. He states that he has had 2 or he perceives as bowel movements from his rectum. Over the past 2 days. He has not had any stool output or mucus prior to this. He denies vomiting. He does report some minimal pain at the site of his ostomy. - Related Data Home Medications Medication Instructions Recorded Confirmed Multivitamins, Thera [Multivitamin 1 tab PO DAILY 02/14/18 05/01/21 (formulary)] Tamsulosin HCl [Flomax] 0.4 mg PO HS 02/14/18 05/01/21 Memantine HCl 10 mg PO BID 10/16/20 05/01/21 Simvastatin [Zocor] 20 mg PO HS 10/16/20 05/01/21 Apixaban [Eliquis] 2.5 mg PO DAILY 05/01/21 05/01/21 Furosemide [Lasix] 20 mg PO DAILY 05/01/21 05/01/21 Potassium Chloride [Potassium 10 meq PO DAILY 05/01/21 05/01/21 Chloride ER] Previous Rx's Medication Instructions Recorded Metoprolol Tartrate [Lopressor] 25 mg PO BID tab 11/02/20 Allergies Allergy/AdvReac Type Severity Reaction Status Date / Time No Known Allergies Allergy Verified 05/01/21 18:17 Review of Systems ROS Statement: Those systems with pertinent positive or pertinent negative responses have been documented in the HPI. ROS Other: All systems not noted in ROS Statement are negative. 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 STATES CLOT THAT TRAVELLED TO HIS BACK AFTER CVA WITH SURGERY TO REMOVE., BPH, STATES HE LIMPS AND USES A CANE PRN.HX OF COLON POLYPS. History of Any Multi-Drug Resistant Organisms: None Reported Past Surgical History: Bowel Resection Additional Past Surgical History / Comment(s): SURGERY TO REMOVE CLOT FROM BACK, SEVERAL PROCEDURES AT [facility] FOLLOWING CVA ELBOW SURGERY, RIGHT ANKLE FUSED. colostomy Past Anesthesia/Blood Transfusion Reactions: No Reported Reaction Past Psychological History: No Psychological Hx Reported Smoking Status: Never smoker Past Alcohol Use History: Occasional Past Drug Use History: None Reported - Past Family History Mother Additional Family Medical History / Comment(s): ALZHEIMERS General Exam Limitations: no limitations General appearance: alert, in no apparent distress Head exam: Present: atraumatic, normocephalic Eye exam: Present: normal appearance, PERRL ENT exam: Present: normal exam Neck exam: Present: normal inspection. Absent: tenderness Respiratory exam: Present: normal lung sounds bilaterally. Absent: respiratory distress, wheezes Cardiovascular Exam: Present: regular rate, normal rhythm GI/Abdominal exam: Present: soft, distended, tenderness (Old generalized tenderness), other (Ostomy with some prolapse, warm and pink, no signs of infection.) Extremities exam: Present: normal inspection, normal capillary refill. Absent: pedal edema Neurological exam: Present: alert, oriented X3 Skin exam: Present: warm, dry, intact. Absent: cyanosis, diaphoretic Course Vital Signs 05/01/21 16:33 Temperature 98.4 F Pulse Rate 56 L Respiratory 20 Rate Blood Pressure 137/70 O2 Sat by Pulse 95 Oximetry Medical Decision Making - Medical Decision Making 85-year-old male with decreased stool output from ostomy, and stool output from the rectum. Workup initiated, normal CBC, normal CMP, normal urinalysis. Patient did have CT evidence of a largely distended bladder but was able to void in the emergency department approximately 800 mL. I discussed the CT findings with Dr. Biggs who is covering for Dr. giles. Patient has an appointment on Saturday which is 2 days from now. He has stable vitals no significant pain. He will monitor his stool output and follow-up as planned return parameters discussed. - Lab Data Result diagrams: 05/01/21 17:05/01/21 17:07 Lab Results 05/01/21 05/01/21 05/01/21 Range/Units 17:07 17:07 17:07 WBC 7.2 (3.8-10.6) k/uL RBC 4.18 L (4.30-5.90) m/uL Hgb 13.0 (13.0-17.5) gm/dL Hct 38.8 L (39.0-53.0) % MCV 93.0 (80.0-100.0) fL MCH 31.1 (25.0-35.0) pg MCHC 33.5 (31.0-37.0) g/dL RDW 15.1 (11.5-15.5) % Plt Count 224 (150-450) k/uL MPV 7.6 Neutrophils % 73 % Lymphocytes % 18 % Monocytes % 5 % Eosinophils % 1 % Basophils % 0 % Neutrophils # 5.3 (1.3-7.7) k/uL Lymphocytes # 1.3 (1.0-4.8) k/uL Monocytes # 0.3 (0-1.0) k/uL Eosinophils # 0.1 (0-0.7) k/uL Basophils # 0.0 (0-0.2) k/uL PT 11.0 (9.0-12.0) sec INR 1.0 (<1.2) APTT 24.9 (22.0-30.0) sec Sodium 139 (137-145) mmol/L Potassium 4.0 (3.5-5.1) mmol/L Chloride 102 (98-107) mmol/L Carbon Dioxide 27 (22-30) mmol/L Anion Gap 10 mmol/L BUN 20 (9-20) mg/dL Creatinine 1.20 (0.66-1.25) mg/dL Est GFR (CKD-EPI)AfAm 64 (>60 ml/min/1.73 sqM) Est GFR (CKD-EPI)NonAf 55 (>60 ml/min/1.73 sqM) Glucose 95 (74-99) mg/dL Plasma Lactic Acid Santosh (0.7-2.0) mmol/L Calcium 9.5 (8.4-10.2) mg/dL Total Bilirubin 0.6 (0.2-1.3) mg/dL AST 30 (17-59) U/L ALT 18 (4-49) U/L Alkaline Phosphatase 122 (38-126) U/L Total Protein 6.9 (6.3-8.2) g/dL Albumin 4.0 (3.5-5.0) g/dL Amylase 101 (30-110) U/L Lipase 120 (23-300) U/L Urine Color Urine Appearance (Clear) Urine pH (5.0-8.0) Ur Specific Mchenry (1.001-1.035) Urine Protein (Negative) Urine Glucose (UA) (Negative) Urine Ketones (Negative) Urine Blood (Negative) Urine Nitrite (Negative) Urine Bilirubin (Negative) Urine Urobilinogen (<2.0) mg/dL Ur Leukocyte Esterase (Negative) 05/01/21 05/01/21 Range/Units 17:07 18:49 WBC (3.8-10.6) k/uL RBC (4.30-5.90) m/uL Hgb (13.0-17.5) gm/dL Hct (39.0-53.0) % MCV (80.0-100.0) fL MCH (25.0-35.0) pg MCHC (31.0-37.0) g/dL RDW (11.5-15.5) % Plt Count (150-450) k/uL MPV Neutrophils % % Lymphocytes % % Monocytes % % Eosinophils % % Basophils % % Neutrophils # (1.3-7.7) k/uL Lymphocytes # (1.0-4.8) k/uL Monocytes # (0-1.0) k/uL Eosinophils # (0-0.7) k/uL Basophils # (0-0.2) k/uL PT (9.0-12.0) sec INR (<1.2) APTT (22.0-30.0) sec Sodium (137-145) mmol/L Potassium (3.5-5.1) mmol/L Chloride (98-107) mmol/L Carbon Dioxide (22-30) mmol/L Anion Gap mmol/L BUN (9-20) mg/dL Creatinine (0.66-1.25) mg/dL Est GFR (CKD-EPI)AfAm (>60 ml/min/1.73 sqM) Est GFR (CKD-EPI)NonAf (>60 ml/min/1.73 sqM) Glucose (74-99) mg/dL Plasma Lactic Acid Santosh 1.3 (0.7-2.0) mmol/L Calcium (8.4-10.2) mg/dL Total Bilirubin (0.2-1.3) mg/dL AST (17-59) U/L ALT (4-49) U/L Alkaline Phosphatase (38-126) U/L Total Protein (6.3-8.2) g/dL Albumin (3.5-5.0) g/dL Amylase (30-110) U/L Lipase (23-300) U/L Urine Color Yellow Urine Appearance Clear (Clear) Urine pH 6.5 (5.0-8.0) Ur Specific Mchenry 1.005 (1.001-1.035) Urine Protein Negative (Negative) Urine Glucose (UA) Negative (Negative) Urine Ketones Negative (Negative) Urine Blood Negative (Negative) Urine Nitrite Negative (Negative) Urine Bilirubin Negative (Negative) Urine Urobilinogen <2.0 (<2.0) mg/dL Ur Leukocyte Esterase Negative (Negative) Disposition Clinical Impression: Constipation Disposition: HOME SELF-CARE Condition: Good Is patient prescribed a controlled substance at d/c from ED?: No Referrals: Josh Mcallister MD [Primary Care Provider] - 1-2 days Eleuterio Dean MD [Medical Doctor] - 1-2 days Time of Disposition: 19:09
[2021-05-01 17:14] LABS: Basophils % (A) 0 %; Eosinophils # (A) 0.1 k/uL (0-0.7); Eosinophils % (A) 1 %; HCT 38.8 % (39.0-53.0); Lymphocytes # (A) 1.3 k/uL (1.0-4.8); Lymphocytes % (A) 18 %; MCH 31.1 pg (25.0-35.0); MCHC 33.5 g/dL (31.0-37.0); Mean Platelet Volume 7.6; Monocytes # (A) 0.3 k/uL (0-1.0); Monocytes % (A) 5 %; Neutrophils # (A) 5.3 k/uL (1.3-7.7); Neutrophils % (A) 73 %; Platelet Count 224 k/uL (150-450); RBC 4.18 m/uL (4.30-5.90); RDW 15.1 % (11.5-15.5); WBC 7.2 k/uL (3.8-10.6)
[2021-05-01 17:22] LABS: Partial Thromboplastin Time 24.9 sec (22.0-30.0)
[2021-05-01 17:23] LABS: Calcium 9.5 mg/dL (8.4-10.2); Total Bilirubin 0.6 mg/dL (0.2-1.3); Total Protein 6.9 g/dL (6.3-8.2)
--- NOTE | 2021-05-01 17:59 | CT ---
EXAMINATION TYPE: CT abdomen pelvis wo con DATE OF EXAM: 05/01/2021 COMPARISON: 10/20/2020 CT abdomen/pelvis HISTORY: problems with colostomy CT DLP: 591.3 mGycm Automated exposure control for dose reduction was used. TECHNIQUE: Helical acquisition of images was performed from the lung bases through the pelvis withou t the administration of intravenous contrast. 2-D sagittal and coronal reformats were obtained. FINDINGS: Lung bases demonstrate bibasilar atelectasis and are otherwise clear. Liver, spleen, pancreas, and bilateral adrenal glands have an unremarkable unenhanced appearance. Nondilated gallbladder is present and contains a punctate calcified gallstone. No definite intrahepat ic or extra hepatic biliary ductal dilatation. Kidneys are symmetric in size with mildly prominent renal pelvises. Urinary bladder appears over dist ended with some irregularity to the urinary bladder wall and trabeculation. Prostate gland appears mi ldly enlarged. 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 Moderate amount of distal colonic diverticulosis without adjacent inflammatory changes. Diffuse wall thickenin g of the rectum, overall similar to prior. No evidence of bowel obstruction. 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 No abdominal or retroperitoneal lymphadenopathy. There is advanced multilevel degenerati ve changes of the lumbar spine IMPRESSION: 1. Left-sided colostomy with small parastomal hernia containing portions of large bowel and small bow el. 2. No evidence of bowel obstruction. 3. Over distended urinary bladder with bladder wall irregularity and trabeculation, as well as, promi nent renal pelvises bilaterally. Findings may relate to chronic outlet obstruction. Recommend appropr iate clinical and laboratory correlation with urinalysis. 4. Diffuse circumferential thickening of the rectal blank. Correlate for diversion colitis.
[2021-05-01 18:59] LABS: Appearance,Urine Clear (Clear); Bilirubin,Urine Negative (Negative); Blood,Urine Negative (Negative); Color,Urine Yellow; Glucose,Urine (UA) Negative (Negative); Ketones,Urine Negative (Negative); Leukocyte Esterase,Urine Negative (Negative); Nitrite,Urine Negative (Negative); PH, Urine 6.5 (5.0-8.0); Protein,Urine Negative (Negative); Specific Gravity,Urine 1.005 (1.001-1.035); Urobilinogen,Urine <2.0 mg/dL (<2.0)
[2021-05-01 20:10] VITALS: BP 131/68; PULSE 60; RESP 16; TEMP 98.2
== END 2021-05-01 20:00 | disposition home or self-care (01) ==
LOC: EC 16:30
DX: K59.00 Constipation, unspecified (principal); I10 Essential (primary) hypertension; Z86.73 Personal history of transient ischemic attack (TIA), and cerebral infarction without residual deficits; Z79.899 Other long term (current) drug therapy; Z93.3 Colostomy status
CPT/HCPCS: 36415; 74176; 80053; 81003; 82150; 83605; 83690; 85025; 85610; 85730; 99284

== ENCOUNTER → 2021-06-15 | Outpatient (CLI) | payer MEDICARE ==
[~2021-06-15] MED LIST: SODIUM CHLORIDE 0.9% 500 ML 500 ML in EMPTY BAG 1 BAG IV PRN
[2021-06-15 11:06] VITALS: BP 174/72; PULSE 66; RESP 16; TEMP 97.6
== END | disposition home or self-care (01) ==
LOC: PROCWHC3 10:42
PROVIDERS: ATTEND Surgery
DX: K63.1 Perforation of intestine (nontraumatic) (principal); L89.159 Pressure ulcer of sacral region, unspecified stage; K43.5 Parastomal hernia without obstruction or gangrene
CPT/HCPCS: 99213

== ENCOUNTER → 2021-09-19 | Outpatient (CLI) | payer MEDICARE ==
--- NOTE | 2021-09-19 15:41 | XR ---
EXAMINATION TYPE: XR knee complete bilateral DATE OF EXAM: 09/19/2021 COMPARISON: NONE HISTORY: Pain TECHNIQUE: Three views are submitted. FINDINGS: Diffuse osteopenia. Mild narrowing of patellofemoral joint and medial compartment of the knee joint b ilaterally. Vascular calcifications bilaterally. Small amount of fluid in the suprapatellar bursa of the left knee.. Osseous structures are intact. No acute fracture seen. IMPRESSION: 1. No acute fracture or dislocation.
== END | disposition home or self-care (01) ==
LOC: RADXRMAIN 14:17
PROVIDERS: ATTEND Internal Medicine
DX: M17.0 Bilateral primary osteoarthritis of knee (principal)

== ENCOUNTER → 2021-11-21 | Outpatient (CLI) | payer MEDICARE ==
[2021-11-21 17:23] LABS: Basophils # (A) 0.01 X 10*3/uL (0.00-0.10); Basophils % (A) 0.2 %; Eosinophils # (A) 0.14 X 10*3/uL (0.04-0.35); Eosinophils % (A) 2.1 %; HCT 41.4 % (39.6-50.0); Immature Grans, Automated 0.3 %; Lymphocytes # (A) 1.57 X 10*3/uL (0.90-5.00); Lymphocytes % (A) 23.6 %; MCH 29.8 pg (27.0-32.0); MCHC 31.4 g/dL (32.0-37.0); Mean Platelet Volume 11.1 fL (9.5-12.2); Monocytes # (A) 0.37 X 10*3/uL (0.20-1.00); Monocytes % (A) 5.6 %; NRBC Per 100 WBC 0 /100 WBCS (0.0-0.0); Neutrophils # (A) 4.53 X 10*3/uL (1.80-7.70); Neutrophils % (A) 68.2 %; Platelet Count 246 X 10*3/uL (140-440); RBC 4.36 X 10*6/uL (4.40-5.60); WBC 6.64 X 10*3/uL (4.50-10.00)
[2021-11-21 17:45] LABS: ALT 15 U/L (10-49); AST 25 U/L (14-35); African American GFR (CKD) 78.6 (60.0-200.0); Albumin 4.2 g/dL (3.8-4.9); Alkaline Phosphatase 139 U/L (41-126); Blood Urea Nitrogen 17.7 mg/dL (9.0-27.0); Calcium 9.5 mg/dL (8.7-10.3); Carbon Dioxide 24.8 mmol/L (20.0-27.5); Chloride 104 mmol/L (96-109); Chol/HDL Ratio 4.16 Ratio; Glucose 81 mg/dL (70-110); Non-African American GFR(CKD) 67.8 (60.0-200.0); Potassium 4.2 mmol/L (3.5-5.5); Sodium 140 mmol/L (135-145); Total Protein 7.2 g/dL (6.2-8.2)
== END | disposition home or self-care (01) ==
LOC: LABWHC1 10:09
PROVIDERS: ATTEND Internal Medicine
DX: E78.5 Hyperlipidemia, unspecified (principal); I10 Essential (primary) hypertension
CPT/HCPCS: 84439; 80061; 80053; 84443; 85025; 36415; G0103

== ENCOUNTER 2022-02-25 15:30 | Emergency (ER) | payer MEDICARE ==
[2022-02-25 15:58] VITALS: BP 171/66; PULSE 62; RESP 16; TEMP 97.9
[2022-02-25] MEDS ORDERED: Acetaminophen-Codeine 300-30mg TAB PO STA (16:14)
--- NOTE | 2022-02-25 16:45 | XR ---
EXAMINATION TYPE: XR shoulder complete RT DATE OF EXAM: 02/25/2022 COMPARISON: NONE HISTORY: Pain TECHNIQUE: 3 views FINDINGS: There is severe narrowing of the glenohumeral joint space with sclerosis and spur formation . There is nondisplaced fracture of the lateral end of the right clavicle. I see no fracture nor disl ocation at the glenohumeral joint. There is acute and chronic right posterior lateral rib fractures. IMPRESSION: Nondisplaced clavicle fracture. 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
--- NOTE | 2022-02-25 16:46 | XR ---
EXAMINATION TYPE: XR clavicle RT DATE OF EXAM: 02/25/2022 COMPARISON: NONE HISTORY: Pain TECHNIQUE: 2 views FINDINGS: There is nondisplaced fracture lateral end of the clavicle. There is advanced arthritic teri nge in the shoulder joint. IMPRESSION: Acute nondisplaced lateral clavicle fracture.
--- NOTE | 2022-02-25 16:47 | XR ---
EXAMINATION TYPE: XR humerus RT DATE OF EXAM: 02/25/2022 COMPARISON: NONE HISTORY: Pain TECHNIQUE: 4 views FINDINGS: There is advanced osteoarthritis in the shoulder joint. Humerus is intact. No evidence of h umeral fracture. IMPRESSION: No acute abnormality of the right humerus.
--- NOTE | 2022-02-25 16:49 | XR ---
EXAMINATION TYPE: XR chest 2V DATE OF EXAM: 02/25/2022 COMPARISON: 11/01/2020 HISTORY: Pain TECHNIQUE: 2 views FINDINGS: There is no heart failure. There is coarsening of the lung markings. No pleural effusion. T here is multiple old right lateral upper rib fractures. Thoracic aorta is atheromatous. IMPRESSION: Pulmonary fibrosis. Inspiration is improved compared to old exam. Multiple old right-side d rib fractures. No pneumothorax.
--- NOTE | 2022-02-25 17:03 | ED ---
Fall HPI - General Chief Complaint: Fall Stated Complaint: Fall-R shoulder/arm pain Time Seen by Provider: 02/25/22 16:05 Source: patient, family, RN notes reviewed Mode of arrival: wheelchair - History of Present Illness Initial Comments: This is an 86-year-old male who presents to the emergency department for a fall. 3 days ago, the patient was sitting on the toilet, when he went to reach for something and subsequently fell off. He landed on the right side of his body and now has pain primarily to the right shoulder and right upper back. Denies hitting his head or any loss of consciousness. He has been taking Tylenol with no relief. He is unable to take anti-inflammatories as he takes Eliquis. Denies any fevers, chills, sore throat, cough, dyspnea, chest pain, palpitations, abdominal pain, nausea, vomiting, diarrhea, back pain, or headaches. 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 Loss of Consciousness: none Prolonged Down Time?: no Symptoms Prior to Fall: none - Related Data Home Medications Medication Instructions Recorded Confirmed Multivitamins, Thera [Multivitamin 1 tab PO DAILY 02/14/18 06/15/21 (formulary)] Tamsulosin HCl [Flomax] 0.4 mg PO HS 02/14/18 06/15/21 Memantine HCl 25 mg PO BID 10/16/20 06/15/21 Simvastatin [Zocor] 20 mg PO HS 10/16/20 06/15/21 Apixaban [Eliquis] 2.5 mg PO DAILY 05/01/21 06/15/21 Furosemide [Lasix] 20 mg PO DAILY 05/01/21 06/15/21 Potassium Chloride [Potassium 10 meq PO DAILY 05/01/21 06/15/21 Chloride ER] Non Formulary Drug 25 mg PO DAILY 06/15/21 06/15/21 Previous Rx's Medication Instructions Recorded HYDROcodone/APAP 5-325MG [Floyd 1 tab PO Q6HR PRN 3 Days #12 tab 02/25/22 5-325] Allergies Allergy/AdvReac Type Severity Reaction Status Date / Time No Known Allergies Allergy Verified 02/25/22 15:58 Review of Systems ROS Statement: Those systems with pertinent positive or pertinent negative responses have been documented in the HPI. ROS Other: All systems not noted in ROS Statement are negative. 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 STATES CLOT THAT TRAVELLED TO HIS BACK AFTER CVA WITH SURGERY TO REMOVE., BPH, STATES HE LIMPS AND USES A CANE PRN.HX OF COLON POLYPS. History of Any Multi-Drug Resistant Organisms: None Reported Past Surgical History: Bowel Resection Additional Past Surgical History / Comment(s): SURGERY TO REMOVE CLOT FROM BACK, SEVERAL PROCEDURES AT [facility] FOLLOWING CVA ELBOW SURGERY, RIGHT ANKLE FUSED. colostomy Past Anesthesia/Blood Transfusion Reactions: No Reported Reaction Past Psychological History: No Psychological Hx Reported Smoking Status: Former smoker Past Alcohol Use History: Occasional Past Drug Use History: None Reported - Past Family History Mother Additional Family Medical History / Comment(s): ALZHEIMERS General Exam Limitations: no limitations General appearance: alert, in no apparent distress Head exam: Present: atraumatic, normocephalic, normal inspection Respiratory exam: Present: normal lung sounds bilaterally. Absent: respiratory distress, wheezes, rales, rhonchi, stridor Cardiovascular Exam: Present: regular rate, normal rhythm, normal heart sounds. Absent: systolic murmur, diastolic murmur, rubs, gallop, clicks Extremities exam: Present: other (Tenderness to palpation over the lateral aspect of the right clavicle with ecchymosis beginning around the right lateral clavicle and traveling down the medial right biceps. Limited range of motion secondary to pain. 2+ radial pulses and capillary refill less than 1 second bilaterally.) Neurological exam: Present: alert, oriented X3, CN II-XII intact Psychiatric exam: Present: normal affect, normal mood Course Vital Signs 02/25/22 15:54 Temperature 97.9 F Pulse Rate 62 Respiratory 16 Rate Blood Pressure 171/66 O2 Sat by Pulse 97 Oximetry Medical Decision Making - Medical Decision Making This is an 86-year-old male who presents to the emergency department for a fall. X-ray reveals an acute nondisplaced right lateral clavicle fracture. Patient was placed in a sling. Rx for Floyd provided, advised to use this very sparingly when the pain is most severe, and to otherwise to continue with Tylenol. Information for orthopedic follow-up listed on his discharge form, advised he contact them next week for an appointment. At this point, he should begin applying heat to the injury. Return precautions reviewed in depth, the patient is instructed to return to the emergency department with any new, worsening, or concerning symptoms. Patient verbalized understanding. This case was discussed in detail with the attending ED physician. Presentation, findings, and treatment plan discussed in detail as well. - Radiology Data Radiology results: report reviewed, image reviewed Disposition Clinical Impression: Right clavicle fracture Disposition: HOME SELF-CARE Instructions (If sedation given, give patient instructions): Clavicle Fracture (ED), How to Use a Sling (ED), Fall Prevention for Older Adults (ED) Additional Instructions: Return to the emergency department with any new, worsening, or concerning symptoms. Take the Floyd sparingly when your pain is most severe, otherwise take Tylenol. Contact orthopedics for a follow-up appointment next week. Use the sling and apply heat to the injury. Prescriptions: HYDROcodone/APAP 5-325MG [Floyd 5-325] 1 tab PO Q6HR PRN 3 Days #12 tab PRN Reason: Pain Is patient prescribed a controlled substance at d/c from ED?: Yes When asked, does pt state using other controlled substances?: No If prescribed controlled substance>3 days was MAPS reviewed?: Prescribed <3 Days Referrals: Eleuterio Dean MD [Primary Care Provider] - 1-2 days Ramez Bowling MD [STAFF PHYSICIAN] - 1-2 days
== END 2022-02-25 17:30 | disposition home or self-care (01) ==
LOC: EC 15:30
DX: S42.034A Nondisplaced fracture of lateral end of right clavicle, initial encounter for closed fracture (principal); I10 Essential (primary) hypertension; Z87.891 Personal history of nicotine dependence; Z79.899 Other long term (current) drug therapy; W18.11XA Fall from or off toilet without subsequent striking against object, initial encounter
CPT/HCPCS: 71046; 99284

== ENCOUNTER 2022-06-25 15:34 | Inpatient (IN) | payer MEDICARE ==
[2022-06-25 16:13] LABS: Basophils % (A) 0 %; Eosinophils # (A) 0.1 k/uL (0-0.7); Eosinophils % (A) 1 %; HCT 41.3 % (39.0-53.0); HGB 13.8 gm/dL (13.0-17.5); Lymphocytes # (A) 1.4 k/uL (1.0-4.8); Lymphocytes % (A) 20 %; MCH 30.8 pg (25.0-35.0); MCHC 33.4 g/dL (31.0-37.0); MCV 92.3 fL (80.0-100.0); Mean Platelet Volume 8.5; Monocytes # (A) 0.3 k/uL (0-1.0); Monocytes % (A) 5 %; Neutrophils # (A) 4.8 k/uL (1.3-7.7); Neutrophils % (A) 71 %; Platelet Count 210 k/uL (150-450); RBC 4.48 m/uL (4.30-5.90); RDW 13.2 % (11.5-15.5); WBC 6.7 k/uL (3.8-10.6)
[2022-06-25 16:21] LABS: Albumin 4.1 g/dL (3.5-5.0); Calcium 9.2 mg/dL (8.4-10.2); INR 1.1 (<1.2); Potassium 4.1 mmol/L (3.5-5.1); Prothrombin Time 11.4 sec (9.0-12.0); Total Bilirubin 0.9 mg/dL (0.2-1.3)
[2022-06-25] MEDS ORDERED: NALOXONE 0.4 MG/ML 1 ML VIAL IV PRN (20:46)
--- NOTE | 2022-06-25 20:53 | ED ---
GI Bleed HPI - General Chief complaint: GI Bleed Stated complaint: Bowel Issues Time Seen by Provider: 06/25/22 20:01 Source: patient, family, RN notes reviewed Mode of arrival: ambulatory Limitations: no limitations - History of Present Illness Initial comments: Patient is a pleasant 86-year-old male presenting to the emergency room at the direction of his primary care provider with complaints of 3 days of black tarry stool his ostomy. He reports that prior to 3 days ago his stool was loose to soft and brown to yellow in color. He has a peristomal hernia which is being followed by Dr. giles regularly and has been compliant with the use of his abdominal binder. Despite the tarry stools overall he has been feeling well. He denies any nausea or vomiting. His spouse is his caregiver since his previous stroke and she denies any changes in behavior or activity. He denies any headache, dizziness, chest pain, shortness of breath fevers or chills. He has a past medical history in addition to his CVA and peristomal hernia of atrial fibrillation, hyperlipidemia, hypertension and prostate disorder. He previously had a bowel perforation which is why he has an end colostomy. - Related Data Home Medications Medication Instructions Recorded Confirmed Multivitamins, Thera [Multivitamin 1 tab PO DAILY 02/14/18 06/15/21 (formulary)] Tamsulosin HCl [Flomax] 0.4 mg PO HS 02/14/18 06/15/21 Memantine HCl 25 mg PO BID 10/16/20 06/15/21 Simvastatin [Zocor] 20 mg PO HS 10/16/20 06/15/21 Apixaban [Eliquis] 2.5 mg PO DAILY 05/01/21 06/15/21 Furosemide [Lasix] 20 mg PO DAILY 05/01/21 06/15/21 Potassium Chloride [Potassium 10 meq PO DAILY 05/01/21 06/15/21 Chloride ER] Non Formulary Drug 25 mg PO DAILY 06/15/21 06/15/21 Previous Rx's Medication Instructions Recorded HYDROcodone/APAP 5-325MG [[place] 1 tab PO Q6HR PRN 3 Days #12 tab 02/25/22 5-325] Allergies Allergy/AdvReac Type Severity Reaction Status Date / Time No Known Allergies Allergy Verified 06/25/22 16:00 Review of Systems ROS Statement: Those systems with pertinent positive or pertinent negative responses have been documented in the HPI. ROS Other: All systems not noted in ROS Statement are negative. Past Medical History Past Medical History: Atrial Fibrillation, CVA/TIA, Hyperlipidemia, Hypertension, Prostate Disorder Additional Past Medical History / Comment(s): CVA (1956)- STATES RIGHT ARM & LEG WEAKNESS. STATES CLOT THAT TRAVELLED TO HIS BACK AFTER CVA WITH SURGERY TO REMOVE., BPH, STATES HE LIMPS AND USES A CANE PRN.HX OF COLON POLYPS. History of Any Multi-Drug Resistant Organisms: None Reported Past Surgical History: Bowel Resection Additional Past Surgical History / Comment(s): SURGERY TO REMOVE CLOT FROM BACK, SEVERAL PROCEDURES AT [facility] FOLLOWING CVA ELBOW SURGERY, RIGHT ANKLE FUSED. colostomy Past Anesthesia/Blood Transfusion Reactions: No Reported Reaction Past Psychological History: No Psychological Hx Reported Smoking Status: Former smoker Past Alcohol Use History: Occasional Past Drug Use History: None Reported - Past Family History Mother Additional Family Medical History / Comment(s): ALZHEIMERS General Exam Limitations: no limitations General appearance: alert, in no apparent distress Head exam: Present: atraumatic, normocephalic, normal inspection Eye exam: Present: normal appearance, PERRL. Absent: scleral icterus, conjunctival injection ENT exam: Present: normal exam, mucous membranes moist Neck exam: Present: normal inspection, full ROM Respiratory exam: Present: normal lung sounds bilaterally. Absent: respiratory distress, wheezes, rales, rhonchi, stridor Cardiovascular Exam: Present: regular rate, irregular rhythm, normal heart sounds, systolic murmur. Absent: diastolic murmur, rubs, gallop, clicks GI/Abdominal exam: Present: soft, normal bowel sounds, hernia (Peristomal), other (Left lower quadrant colostomy with slightly prolapsed stoma pink without gross bleeding mild excoriation noted on left side of stoma opening. No stool in ostomy bag or at ostomy opening). Absent: distended, tenderness, guarding, rebound, rigid Rectal exam: Present: deferred Extremities exam: Present: tenderness, other (Right lower leg mild deformity). Absent: pedal edema, joint swelling Back exam: Present: normal inspection Neurological exam: Present: alert, oriented X3, CN II-XII intact Psychiatric exam: Present: normal affect, normal mood Skin exam: Present: warm, dry, intact, normal color. Absent: rash Course Vital Signs 06/25/22 15:57 Temperature 98.4 F Pulse Rate 73 Respiratory 20 Rate Blood Pressure 136/79 O2 Sat by Pulse 97 Oximetry Medical Decision Making - Medical Decision Making 86-year-old male presenting to the emergency room complaints of tarry stools 3 days. Due to colostomy status and excoriation of stoma and lack of stool in ostomy or stomal vault unable to obtain stool for occult blood which would likely be positive from ostomy excoriation. CBC and CMP along with coags obtained. Overall labs without significant anomalies. Due to patient's direction to come to the emergency room by his primary care provider will contact covering providers for his PCP which is [facility]. Dr. Sommer is accepting of admission for possible GI bleed. Findings above discussed with him. Will consults to Doctor Dean patient's surgeon on consult along with his primary care provider Dr. Rose. Will order CBC for morning. Patient is on Eliquis but only takes daily no dose due to night. He received his morning dose as prescribed this morning. Patient denies any pain or nausea. No indication for any need for IV fluids, analgesics or antibiotics. Case discussed with Dr. Ceja. - Lab Data Result diagrams: 06/25/22 16:00 06/25/22 16:00 Lab Results 06/25/22 06/25/22 06/25/22 Range/Units 16:00 16:00 16:00 WBC 6.7 (3.8-10.6) k/uL RBC 4.48 (4.30-5.90) m/uL Hgb 13.8 (13.0-17.5) gm/dL Hct 41.3 (39.0-53.0) % MCV 92.3 (80.0-100.0) fL MCH 30.8 (25.0-35.0) pg MCHC 33.4 (31.0-37.0) g/dL RDW 13.2 (11.5-15.5) % Plt Count 210 (150-450) k/uL MPV 8.5 Neutrophils % 71 % Lymphocytes % 20 % Monocytes % 5 % Eosinophils % 1 % Basophils % 0 % Neutrophils # 4.8 (1.3-7.7) k/uL Lymphocytes # 1.4 (1.0-4.8) k/uL Monocytes # 0.3 (0-1.0) k/uL Eosinophils # 0.1 (0-0.7) k/uL Basophils # 0.0 (0-0.2) k/uL PT 11.4 (9.0-12.0) sec INR 1.1 (<1.2) APTT 27.0 (22.0-30.0) sec Sodium 140 (137-145) mmol/L Potassium 4.1 (3.5-5.1) mmol/L Chloride 102 (98-107) mmol/L Carbon Dioxide 27 (22-30) mmol/L Anion Gap 11 mmol/L BUN 18 (9-20) mg/dL Creatinine 0.94 (0.66-1.25) mg/dL Est GFR (CKD-EPI)AfAm 85 (>60 ml/min/1.73 sqM) Est GFR (CKD-EPI)NonAf 73 (>60 ml/min/1.73 sqM) Glucose 102 H (74-99) mg/dL Calcium 9.2 (8.4-10.2) mg/dL Total Bilirubin 0.9 (0.2-1.3) mg/dL AST 28 (17-59) U/L ALT 18 (4-49) U/L Alkaline Phosphatase 135 H (38-126) U/L Total Protein 7.0 (6.3-8.2) g/dL Albumin 4.1 (3.5-5.0) g/dL Disposition Clinical Impression: Black tarry stools Disposition: ADMITTED IP TO THIS [facility] Condition: Stable Is patient prescribed a controlled substance at d/c from ED?: No Referrals: Eleuterio Dean MD [Medical Doctor] - 1-2 days Time of Disposition: 20:45
[2022-06-26 06:07] LABS: Basophils % (A) 0 %; Eosinophils # (A) 0.2 k/uL (0-0.7); Eosinophils % (A) 2 %; HCT 39.3 % (39.0-53.0); HGB 13.2 gm/dL (13.0-17.5); Lymphocytes # (A) 1.9 k/uL (1.0-4.8); Lymphocytes % (A) 28 %; MCHC 33.6 g/dL (31.0-37.0); MCV 92.3 fL (80.0-100.0); Mean Platelet Volume 8.4; Monocytes # (A) 0.4 k/uL (0-1.0); Monocytes % (A) 6 %; Neutrophils % (A) 62 %; Platelet Count 198 k/uL (150-450); RBC 4.26 m/uL (4.30-5.90); RDW 12.8 % (11.5-15.5); WBC 6.6 k/uL (3.8-10.6)
[2022-06-26 06:17] LABS: African American GFR (CKD) >90 (>60 ml/min/1.73 sqM); Anion Gap 7 mmol/L; Blood Urea Nitrogen 16 mg/dL (9-20); Calcium 9.1 mg/dL (8.4-10.2); Carbon Dioxide 26 mmol/L (22-30); Chloride 105 mmol/L (98-107); Glucose 88 mg/dL (74-99); Non-African American GFR(CKD) 79 (>60 ml/min/1.73 sqM); Potassium 3.7 mmol/L (3.5-5.1); Sodium 138 mmol/L (137-145)
[2022-06-26] MEDS ORDERED: PANTOPRAZOLE 40 MG/10 ML VIAL IVP SCH (09:00)
--- NOTE | 2022-06-26 10:58 | P.GSCN ---
History of Present Illness Consult date: 06/26/22 History of present illness: CHIEF COMPLAINT: Black stools HISTORY OF PRESENT ILLNESS: This 86-year-old male who presents to the hospital with complaints of black tarry stools through his ostomy 3 days. He does have a known history of a parastomal hernia. He also has a history of perforated sigmoid colon status post colectomy with end colostomy in September 2020. He is on Eliquis for anticoagulation for A. fib. His last colonoscopy was in 2017 did reveal diverticulosis. Patient denies any abdominal pain. Denies any nausea or vomiting. His black stools have stopped. Hemoglobin on admission 13.8. PAST MEDICAL HISTORY: CVA, A. fib, hypertension, hyperlipidemia, prostate disorder PAST SURGICAL HISTORY: See below MEDICATIONS: See below ALLERGIES: See below SOCIAL HISTORY: No illicit drug use. REVIEW OF SYSTEMS: CONSTITUTIONAL: Denies fever or chills. HEENT: Denies blurred vision, vision changes, or eye pain. Denies hemoptysis CARDIOVASCULAR: Denies chest pain or pressure. RESPIRATORY: No shortness of breath. GASTROINTESTINAL: See HPI for pertinent findings HEMATOLOGIC: Denies bleeding disorders. GENITOURINARY: Denies any blood in urine or increased urinary frequency. SKIN: Denies pruitis. Denies rash. PHYSICAL EXAM: VITAL SIGNS: Reviewed GENERAL: Well-developed in no acute distress. HEENT: No sclera icterus. Extraocular movements grossly intact. Moist buccal mucosa. Head is atraumatic, normocephalic. No nasal drainage. ABDOMEN: Soft. Nondistended. Nontender. Evidence of a parastomal hernia. Soft. Nontender. Colostomy bag currently empty of stool NEUROLOGIC: Alert and oriented. Cranial nerves II through XII grossly intact. LABORATORY DATA: WBC is 6.6 Hgb 13.2 platelets 198 INR 1.1 Sodium 138 potassium 3.7 creatinine 0.85 IMAGING: ASSESSMENT: 1. Acute GI bleed with Black tarry stools 2. On daily anticoagulation for his A. fib PLAN: -Patient scheduled for EGD with Dr. Dean today -Keep patient nothing by mouth -Start IV Protonix -Hold Eliquis -Continue to monitor for any signs or symptoms of bleeding -Continue to monitor hemoglobin Thank you for this consultation Physician Board Hammer Operator note has been reviewed by physician. Signing provider agrees with the documented findings, assessment, and plan of care. I have personally seen and examined the patient, reviewed the IGNITER ASSEMBLER /PAs history, exam and MDM and agree with the assessment and plan as written. Based on total visit time, I have performed more than 50% of the visit. As above: Patient apparently had some melanotic stools. No significant ostomy function during the hospital stay. Hemoglobin is stable. Patient with some bradycardia today. Hold anticoagulation. Upper endoscopy can be performed either in the hospital or as outpatient in the next few days. We'll reassess tomorrow. Continue antiacids for now. 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 History of Any Multi-Drug Resistant Organisms: None Reported Past Surgical History: Bowel Resection Additional Past Surgical History / Comment(s): 2020 bowel resection/colostomy, CVA in 1955 which made need for R elbow surgery/R ankle fusion, post cva surgery on back to remove blood clot, bilateral eye lens implants. Past Anesthesia/Blood Transfusion Reactions: No Reported Reaction Additional Past Anesthesia/Blood Transfusion Reaction / Comm: Pt believes he has received blood in past without reaction. Smoking Status: Former smoker - Past Family History Mother Family Medical History: Dementia Additional Family Medical History / Comment(s): ALZHEIMERS Father Family Medical History: No Reported History Additional Family Medical History / Comment(s): Pt states his father was healthy Medications and Allergies Home Medications Medication Instructions Recorded Confirmed Type Multivitamins, Thera [Multivitamin 1 tab PO DAILY 02/14/18 06/25/22 History (formulary)] Tamsulosin HCl [Flomax] 0.4 mg PO DAILY 02/14/18 06/25/22 History Furosemide [Lasix] 20 mg PO DAILY 05/01/21 06/25/22 History Potassium Chloride [Potassium 10 meq PO DAILY 05/01/21 06/25/22 History Chloride ER] Apixaban [Eliquis] 5 mg PO DAILY 06/25/22 06/25/22 History Donepezil [Aricept] 5 mg PO DAILY 06/25/22 06/25/22 History Allergies Allergy/AdvReac Type Severity Reaction Status Date / Time memantine [From Namenda] AdvReac Nausea & Verified 06/25/22 21:51 Vomiting & Diarrhea Surgical - Exam Vital Signs Temp Pulse Resp BP Pulse Ox 98.4 F 73 20 136/79 97 06/25/22 15:57 06/25/22 15:57 06/25/22 15:57 06/25/22 15:57 06/25/22 15:57 Results - Labs 06/26/22 05:43 06/26/22 05:43 Abnormal Lab Results - Last 24 Hours (Table) 06/25/22 06/26/22 Range/Units 16:00 05:43 RBC 4.26 L (4.30-5.90) m/uL Glucose 102 H (74-99) mg/dL Alkaline Phosphatase 135 H (38-126) U/L Diabetes panel 06/25/22 06/26/22 Range/Units 16:00 05:43 Sodium 140 138 (137-145) mmol/L Potassium 4.1 3.7 (3.5-5.1) mmol/L Chloride 102 105 (98-107) mmol/L Carbon Dioxide 27 26 (22-30) mmol/L BUN 18 16 (9-20) mg/dL Creatinine 0.94 0.85 (0.66-1.25) mg/dL Glucose 102 H 88 (74-99) mg/dL Calcium 9.2 9.1 (8.4-10.2) mg/dL AST 28 (17-59) U/L ALT 18 (4-49) U/L Alkaline Phosphatase 135 H (38-126) U/L Total Protein 7.0 (6.3-8.2) g/dL Albumin 4.1 (3.5-5.0) g/dL Calcium panel 06/25/22 06/26/22 Range/Units 16:00 05:43 Calcium 9.2 9.1 (8.4-10.2) mg/dL Albumin 4.1 (3.5-5.0) g/dL Pituitary panel 06/25/22 06/26/22 Range/Units 16:00 05:43 Sodium 140 138 (137-145) mmol/L Potassium 4.1 3.7 (3.5-5.1) mmol/L Chloride 102 105 (98-107) mmol/L Carbon Dioxide 27 26 (22-30) mmol/L BUN 18 16 (9-20) mg/dL Creatinine 0.94 0.85 (0.66-1.25) mg/dL Glucose 102 H 88 (74-99) mg/dL Calcium 9.2 9.1 (8.4-10.2) mg/dL Adrenal panel 06/25/22 06/26/22 Range/Units 16:00 05:43 Sodium 140 138 (137-145) mmol/L Potassium 4.1 3.7 (3.5-5.1) mmol/L Chloride 102 105 (98-107) mmol/L Carbon Dioxide 27 26 (22-30) mmol/L BUN 18 16 (9-20) mg/dL Creatinine 0.94 0.85 (0.66-1.25) mg/dL Glucose 102 H 88 (74-99) mg/dL Calcium 9.2 9.1 (8.4-10.2) mg/dL Total Bilirubin 0.9 (0.2-1.3) mg/dL AST 28 (17-59) U/L ALT 18 (4-49) U/L Alkaline Phosphatase 135 H (38-126) U/L Total Protein 7.0 (6.3-8.2) g/dL Albumin 4.1 (3.5-5.0) g/dL
--- NOTE | 2022-06-26 12:39 | P.HPIM ---
History of Present Illness H&P Date: 06/26/22 This is an 86 year old female who follows with Dr. Josh Mcallister, medical history includes chronic right-sided weakness and speech difficulty secondary to stroke back in the 1950s, atrial fibrillation, history of bowel resection with colostomy in 2020 secondary to fecal impaction with bowel perforation, hypertension, BPH and is a former smoker. Patient maintained on eliquis outpatient. Currently resides with his who is his primary caregiver. Patient presents to the hospital with concern for 3 days of black tarry stool from his ostomy. Denies nausea, denies hemetemesis. No chest pain, no shortness of breath. Prior to that his stools are loose to soft brown yellow in color. Follows with Dr. Dean outpatient Hemoglobin on admission stable at 13.8 and repeated 13.2. Labs are essentially unremarkable for glucose of 102 alk phos 135. Patient is admitted to the hospital for possible GI bleed and GI services consultation. We will hold eliquis pending work up. Patient is currently on room air, heart rate 58, sinus bradycardia, blood pressure 160/76. REVIEW OF SYSTEMS: CONSTITUTIONAL: No fever, no malaise, no fatigue. HEENT: No recent visual problems or hearing problems. Denied any sore throat. CARDIOVASCULAR: No chest pain, orthopnea, PND, no palpitations, no syncope. PULMONARY: No shortness of breath, no cough, no hemoptysis. GASTROINTESTINAL: Reports 3 day history of dark tarry stool from ostomy. NEUROLOGICAL: No headaches, no weakness, no numbness. HEMATOLOGICAL: Denies any bleeding or petechiae. GENITOURINARY: Denies any burning micturition, frequency, or urgency. MUSCULOSKELETAL/RHEUMATOLOGICAL: Denies any joint pain, swelling, or any muscle pain. Reports right sided weakness mild ENDOCRINE: Denies any polyuria or polydipsia. The rest of the 14-point review of systems is negative. PHYSICAL EXAMINATION: GENERAL: The patient is alert and oriented x3, not in any acute distress. Well developed, well nourished. HEENT: Pupils are round and equally reacting to light. EOMI. No scleral icterus. No conjunctival pallor. Normocephalic, atraumatic. No pharyngeal erythema. No thyromegaly. CARDIOVASCULAR: S1 and S2 present. No murmurs, rubs, or gallops. PULMONARY: Chest is clear to auscultation, no wheezing or crackles. ABDOMEN: Soft, nontender, nondistended, normoactive bowel sounds. No palpable organomegaly. Left lower quadrant colostomy present. Abdomen is soft and nontender. MUSCULOSKELETAL: No joint swelling or deformity. EXTREMITIES: No cyanosis, clubbing, or pedal edema. NEUROLOGICAL: Gross neurological examination did not reveal any focal deficits. 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 Left upper is 5/5. Speech is slow to respond. SKIN: No rashes. 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 Dr. Phyllis MD I have performed a history and physical examination and medical decision making of this patient, discussed the same with the dictator, and agree with the dictators assessment and plan as written, documented as a scribe. Based on total visit time, I have performed more than 50% of this visit. 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 History of Any Multi-Drug Resistant Organisms: None Reported Past Surgical History: Bowel Resection Additional Past Surgical History / Comment(s): 2020 bowel resection/colostomy, CVA in 1956 which made need for R elbow surgery/R ankle fusion, post cva surgery on back to remove blood clot, bilateral eye lens implants. Past Anesthesia/Blood Transfusion Reactions: No Reported Reaction Additional Past Anesthesia/Blood Transfusion Reaction / Comment(s): Pt believes he has received blood in past without reaction. Smoking Status: Former smoker - Past Family History Mother Family Medical History: Dementia Additional Family Medical History / Comment(s): ALZHEIMERS Father Family Medical History: No Reported History Additional Family Medical History / Comment(s): Pt states his father was healthy Medications and Allergies Home Medications Medication Instructions Recorded Confirmed Type Multivitamins, Thera [Multivitamin 1 tab PO DAILY 02/14/18 06/25/22 History (formulary)] Tamsulosin HCl [Flomax] 0.4 mg PO DAILY 02/14/18 06/25/22 History Furosemide [Lasix] 20 mg PO DAILY 05/01/21 06/25/22 History Potassium Chloride [Potassium 10 meq PO DAILY 05/01/21 06/25/22 History Chloride ER] Apixaban [Eliquis] 5 mg PO DAILY 06/25/22 06/25/22 History Donepezil [Aricept] 5 mg PO DAILY 06/25/22 06/25/22 History Allergies Allergy/AdvReac Type Severity Reaction Status Date / Time memantine [From Namenda] AdvReac Nausea & Verified 06/25/22 21:51 Vomiting & Diarrhea Physical Exam Vitals: Vital Signs Temp Pulse Pulse Resp BP BP Pulse Ox 06/26/22 08:04 97.6 F 80 16 160/76 94 L 06/26/22 07:19 58 L 18 149/71 97 06/26/22 04:59 56 L 15 148/69 95 06/25/22 15:57 98.4 F 73 20 136/79 97 Intake and Output 06/25/22 06/26/22 06/26/22 22:59 06:59 14:59 Other: # Voids 1 Weight 64.864 kg 64.864 kg Results CBC & Chem 7: 06/26/22 05:43 06/26/22 05:43 Labs: Abnormal Lab Results - Last 24 Hours (Table) 06/25/22 06/26/22 Range/Units 16:00 05:43 RBC 4.26 L (4.30-5.90) m/uL Glucose 102 H (74-99) mg/dL Alkaline Phosphatase 135 H (38-126) U/L Thrombosis Risk Factor Assmnt - Choose All That Apply Any of the Below Risk Factors Present?: Yes Other Risk Factors: Yes Each Risk Factor Represents 3 Points: Age 75 years or older Other congenital or acquired thrombophilia - If yes, enter type in comment: No Thrombosis Risk Factor Assessment Total Risk Factor Score: 3 Thrombosis Risk Factor Assessment Level: Moderate Risk Assessment and Plan Time with Patient: Less than 30
[2022-06-26] MEDS: SODIUM CHLORIDE 0.9% 1,000 ML IV SCH (12:40)
[2022-06-26] MEDS: PANTOPRAZOLE 40 MG/10 ML VIAL IVP SCH (21:31)
[2022-06-27] MEDS: SODIUM CHLORIDE 0.9% 1,000 ML IV SCH ×2 (04:31→18:12)
[2022-06-27] MEDS: DONEPEZIL 5 MG TAB PO SCH (08:10)
[2022-06-27] MEDS: TAMSULOSIN 0.4 MG CAP.ER.24H PO SCH (08:10)
[2022-06-27] MEDS: MULTIVITAMINS, THERA 1 EACH TAB PO SCH (08:10)
[2022-06-27] MEDS: PANTOPRAZOLE 40 MG/10 ML VIAL IVP SCH (08:11)
[2022-06-27 09:28] LABS: HCT 43.2 % (39.0-53.0); HGB 13.9 gm/dL (13.0-17.5); MCH 30.4 pg (25.0-35.0); MCHC 32.2 g/dL (31.0-37.0); MCV 94.4 fL (80.0-100.0); Platelet Count 192 k/uL (150-450); RBC 4.58 m/uL (4.30-5.90); RDW 13.1 % (11.5-15.5); WBC 7.3 k/uL (3.8-10.6)
--- NOTE | 2022-06-27 11:25 | P.CRDCN ---
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 He follows in the office with Dr. Salmon. We have been asked to see in consultation for sinus bradycardia and clearance for an endoscopy. Patient presented emergency department 06/25/2022 secondary to 3 days of black tarry stools from his ostomy. He denies any new medications or supplements. He does endorse over that time eating different types of meat that may have caused the dark stools. He denies any bleeding that he has noticed. General surgery has evaluated the patient and plan for EGD with Dr. Dean. Patient denies any chest pain, shortness of breath, lightheadedness, dizziness, syncope or near syncope. Denies any symptoms of orthopnea or PND. Overall patient is feeling well. He has known sinus bradycardia especially at night and has been following with Dr. Salmon. He underwent a 24 hour holter monitor in the office 02/21/2022, it revealed sinus bradycardia and occasional pauses predominantly at night with HR low 28. Maxi HR 100, with average HR 61. He had there was 118 episodes of pauses, with longest pause was 2.4 seconds. 34 episodes of NSVT, longest episode was 11 beats, maximum rate of NSVT was 132 bpm. Total of 10 PVCs. No episodes of high degree AV block, no symptoms reported by the patient, no malignant arrhythmias present, no atrial fibrillation present DIAGNOSTICS * EKG revealed sinus bradycardia, HR 39, first degree AV block, right bundle branch block, T wave inversions in inferior leads V3-V6. * Telemetry tracings indicate sinus rhythm, heart rate 50s70s, with heart rates in the 30s40s predominantly overnight and early in 2-3AM. 2 second Pause noted. * Laboratory reviewed, WBC 6.6, hemoglobin 13.2, platelets 198, sodium 138, potassium 3.7, BUN 16, serum creatinine 0.8, stool occult blood negative * Current home cardiac medications include Eliquis 5 mg daily, Lasix 20 mg daily. * Echocardiogram 09/2020 revealed EF of 47%, mild mitral regurgitation, moderate LVH, mild aortic regurgitation, diastolic dysfunction, mild pulmonary hypertension, mild tricuspid regurgitation, RVSP 45 mmHg REVIEW OF SYSTEMS At the time of my exam: CONSTITUTIONAL: Denies fever or chills. CARDIOVASCULAR: Denies chest pain, shortness of breath, orthopnea, PND or palpitations. RESPIRATORY: Denies cough. GASTROINTESTINAL: Denies abdominal pain, diarrhea, constipation, nausea or vomiting. MUSCULOSKELETAL: Denies myalgias. NEUROLOGIC: Denies numbness, tingling, headacbe or weakness. ENDOCRINE: Denies fatigue, weight change, polydipsia or polyurina. GENITOURINARY: Denies burning, hematuria or urgency with micturation. HEMATOLOGIC: Denies history of anemia or bleeding. PHYSICAL EXAMINATION Blood pressure 131/72, heart rate 62, afebrile, saturation 95% on room air CONSTITUTIONAL: No apparent distress. HEENT: Head is normocephalic. Pupils are equal, round. Sclerae anicteric. Mucous membranes of the mouth are moist. No JVD. No carotid bruit. CHEST EXAMINATION: Lungs are clear to auscultation. No chest wall tenderness is noted on palpation or with deep breathing. HEART EXAMINATION: Regular rate and rhythm. S1, S2 heard. soft systolic murmur at apex, No gallops or rub. ABDOMEN: Soft, nontender. Positive bowel sounds. brown stool noted in ostomy EXTREMITIES: 2+ peripheral pulses, no lower extremity edema and no calf tenderness. NEUROLOGIC EXAMINATION: Patient is awake, alert and oriented x3. ASSESSMENT Sinus bradycardia, predominantly at night, asymptomatic Recent 24 hour holter monitor with episodes of SVT and PVCs Dark, tarry stools Paroxysmal atrial fibrillation s/p prior cardioversion in 2020 on Eliquis outpatient History of pulmonary embolism Hyperlipidemia History of CVA in 1956 with chronic right-sided weakness and speech difficulty Former smoker History of bowel resection with colostomy in 2020 secondary to fecal impaction with bowel perforation PLAN Patient with known sinus bradycardia predominantly at night, currently asymptomatic. Patient ambulating in room up to the bathroom with HR 90s at bedside Not on any AV earle blocking agents. Continue cardiac telemetry Obtain 2D echocardiogram and doppler study to assess cardiac structure and function. No absolute contraindication to undergo EGD Eliquis on hold per GI workup, when cleared to restart per surgery medication should be 5mg BID for stroke prevention Further recommendations based on evaluation by Dr. Raya. Nurse practitioner note has been reviewed by physician. Signing provider agrees with the documented findings, assessment, and plan of care. 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 History of Any Multi-Drug Resistant Organisms: None Reported Past Surgical History: Bowel Resection Additional Past Surgical History / Comment(s): 2020 bowel resection/colostomy, CVA in 1955 which made need for R elbow surgery/R ankle fusion, post cva surgery on back to remove blood clot, bilateral eye lens implants. Past Anesthesia/Blood Transfusion Reactions: No Reported Reaction Additional Past Anesthesia/Blood Transfusion Reaction / Comment(s): Pt believes he has received blood in past without reaction. Smoking Status: Former smoker - Past Family History Mother Family Medical History: Dementia Additional Family Medical History / Comment(s): ALZHEIMERS Father Family Medical History: No Reported History Additional Family Medical History / Comment(s): Pt states his father was healthy Medications and Allergies Home Medications Medication Instructions Recorded Confirmed Type Multivitamins, Thera [Multivitamin 1 tab PO DAILY 02/14/18 06/25/22 History (formulary)] Tamsulosin HCl [Flomax] 0.4 mg PO DAILY 02/14/18 06/25/22 History Furosemide [Lasix] 20 mg PO DAILY 05/01/21 06/25/22 History Potassium Chloride [Potassium 10 meq PO DAILY 05/01/21 06/25/22 History Chloride ER] Apixaban [Eliquis] 5 mg PO DAILY 06/25/22 06/25/22 History Donepezil [Aricept] 5 mg PO DAILY 06/25/22 06/25/22 History Allergies Allergy/AdvReac Type Severity Reaction Status Date / Time memantine [From Namenda] AdvReac Nausea & Verified 06/25/22 21:51 Vomiting & Diarrhea Physical Exam Vitals: Vital Signs Temp Pulse Resp BP Pulse Ox 06/27/22 08:00 62 06/27/22 04:31 97.4 F L 47 L 14 131/72 95 06/26/22 18:56 97.6 F 49 L 14 116/59 99 06/26/22 11:44 97.6 F 36 L 18 120/60 97 Intake and Output 06/26/22 06/27/22 06/27/22 22:59 06:59 14:59 Intake Total 375 Output Total 250 Balance 125 Intake: Intake, IV Titration 375 Amount Sodium Chloride 0.9% 1, 375 000 ml @ 75 mls/hr IV . [id number] KATHLEEN Rx#:[id number] Output: Stool 250 Other: Voiding Method Urinal Diaper Incontinent # Voids 1 Results 06/27/22 08:31 06/26/22 05:43 Current Medications Generic Name Dose Route Start Last Admin Trade Name Enrique PRN Reason Stop Dose Admin Donepezil HCl 5 mg 06/27/22 09:00 06/27/22 08:10 Donepezil 5 Mg Tab PO 5 mg DAILY KATHLEEN Administration Sodium Chloride 1,000 mls @ 75 mls/hr 06/26/22 12:15 06/27/22 04:31 Saline 0.9% IV Not Given .[id number] KATHLEEN Multivitamins 1 each 06/27/22 09:00 06/27/22 08:10 Multivitamins, Thera 1 Each Tab PO 1 each DAILY KATHLEEN Administration Naloxone HCl 0.2 mg 06/25/22 20:46 Naloxone 0.4 Mg/Ml 1 Ml Vial IV Q2M PRN Opioid Reversal Pantoprazole Sodium 40 mg 06/26/22 21:00 06/27/22 08:11 Pantoprazole 40 Mg/10 Ml Vial IVP 40 mg BID KATHLEEN Administration Tamsulosin HCl 0.4 mg 06/27/22 09:00 06/27/22 08:10 Tamsulosin 0.4 Mg Cap.Er.24h PO 0.4 mg DAILY KATHLEEN Administration Intake and Output 06/26/22 06/27/22 06/27/22 22:59 06:59 14:59 Intake Total 375 Output Total 250 Balance 125 Intake: Intake, IV Titration 375 Amount Sodium Chloride 0.9% 1, 375 000 ml @ 75 mls/hr IV . [id number] [facility] Rx#:[id number] Output: Stool 250 Other: Voiding Method Urinal Diaper Incontinent # Voids 1 06/26/22 05:43 06/26/22 05:43
--- NOTE | 2022-06-27 12:07 | P.PN ---
Subjective Progress Note Date: 06/27/22 CHIEF COMPLAINT: Black stools HISTORY OF PRESENT ILLNESS: Patient reports no longer having black stools. He denies any abdominal pain. Denies any nausea vomiting is tolerating clear liquids. He is evaluated by cardiology for his bradycardia. Cardiology has cleared patient to proceed with EGD. Afebrile. WBC is 7.3 hemoglobin stable at 13.9 PHYSICAL EXAM: VITAL SIGNS: Reviewed. GENERAL: Well-developed in no acute distress. HEENT: No sclera icterus. Extraocular movements grossly intact. Moist buccal mucosa. Head is atraumatic, normocephalic. ABDOMEN: Soft. Nondistended. Nontender. NEUROLOGIC: Alert and oriented. Cranial nerves II through XII grossly intact. ASSESSMENT: 1. Acute GI bleed with black stools 2. On daily anticoagulation for his A. fib PLAN: -Continue PPI -Advance diet to regular -Continue to hold Eliquis -Continue to monitor for any signs or symptoms of bleeding -Continue to monitor hemoglobin -Further recommendations regarding EGD forthcoming per surgeon Physician [employer] Supervisor note has been reviewed by physician. Signing provider agrees with the documented findings, assessment, and plan of care. I have personally seen and examined the patient, reviewed the BUTTON INSPECTOR /PAs history, exam and MDM and agree with the assessment and plan as written. Based on total visit time, I have performed more than 50% of the visit. As above: Patient without further bleeding. Anticoagulation has been held. If patient stays can schedule for EGD tomorrow. Patient however would like to go home. We'll follow. Objective - Vital Signs Vital signs: Vital Signs Temp 97.4 F L 06/27/22 04:31 Pulse 62 06/27/22 08:00 Resp 14 06/27/22 04:31 BP 131/72 06/27/22 04:31 Pulse Ox 95 06/27/22 04:31 FiO2 Intake & Output 06/26/22 06/27/22 06/27/22 18:59 06:59 18:59 Intake Total 375 Output Total 250 Balance 375 -250 Weight 64.864 kg Intake: Intake, IV Titration 375 Amount Sodium Chloride 0.9% 1, 375 000 ml @ 75 mls/hr IV . [id number] KATHLEEN Rx#:[id number] Output: Stool 250 Other: Voiding Method Toilet Urinal Urinal Diaper Diaper Incontinent Incontinent # Voids 1 1 1 - Labs CBC & Chem 7: 06/27/22 08:31 06/26/22 05:43
--- NOTE | 2022-06-27 12:20 | CA ---
Transthoracic Echo Report Name: Justo Bright Age: 86 Gender: M : 1935 Exam Date: 06/27/2022 10:33 Exam Location: [facility] Ht (in): 69 Wt (lb): 143 Ordering Physician: Rachel Cruz Attending/Referring Phys: County Engineer Kathy Guevara RDCS Procedure CPT: Indications: LV function, pulmonary hypertension Cardiac Hx: Technical Quality: Fair Contrast 1: Total Dose (mL): Contrast 2: Total Dose (mL): MEASUREMENTS (Male / Female) Normal Values 2D ECHO LV Diastolic Diameter PLAX 3.9 cm 4.2 - 5.9 / 3.9 - 5.3 cm LV Systolic Diameter PLAX 2.9 cm IVS Diastolic Thickness 1.8 cm 0.6 - 1.0 / 0.6 - 0.9 cm LVPW Diastolic Thickness 1.6 cm 0.6 - 1.0 / 0.6 - 0.9 cm LV Relative Wall Thickness 0.9 LA Volume 93.1 cm??? 18 - 58 / 22 - 52 cm??? M-MODE Aortic Root Diameter MM 3.5 cm LA Systolic Diameter MM 4.6 cm LA Ao Ratio MM 1.3 AV Cusp Separation MM 2.1 cm DOPPLER AV Peak Velocity 133.8 cm/s AV Peak Gradient 7.2 mmHg AI Peak Velocity 649.6 cm/s AI Peak Gradient 168.8 mmHg AI Pressure Half Time 677.5 ms LVOT Peak Velocity 96.6 cm/s LVOT Peak Gradient 3.7 mmHg MV Peak Velocity 126.1 cm/s MV Peak Gradient 6.4 mmHg MV Mean Velocity 79.8 cm/s MV Mean Gradient 2.8 mmHg MV Velocity Time Integral 27.3 cm MV Area PHT 2.1 cm??? Mitral E Point Velocity 77.3 cm/s Mitral A Point Velocity 102.2 cm/s Mitral E to A Ratio 0.8 MV Deceleration Time 362.5 ms TR Peak Velocity 250.3 cm/s TR Peak Gradient 25.1 mmHg Right Ventricular Systolic Press 28.5 mmHg FINDINGS Left Ventricle Severely increased septal wall thickness. Left ventricular ejection fraction is estimated at 45-50 %. Right Ventricle Normal right ventricular size. Right ventricular systolic pressure within normal limits. Right Atrium Normal right atrial size. Left Atrium Severely increased left atrial volume. Mildly increased left atrial area. Mitral Valve [id number] mitral regurgitation. Moderate thickening/calcification of the anterior mitral valve leaflet. Moderate mitral annular calcification. Aortic Valve Trileaflet aortic valve. [id number] aortic regurgitation. Aortic valve sclerosis. Tricuspid Valve Structurally normal tricuspid valve. Mild tricuspid regurgitation. Pulmonic Valve Trace pulmonic regurgitation. Pericardium Moderate pericardial effusion. Right atrial diastolic collapse. Aorta Normal size aortic root and proximal ascending aorta. CONCLUSIONS Mild LV systolic dysfunction Moderate to severe mitral regurgitation Mild to moderate aortic regurgitation Moderate size pericardial effusion with diastolic collapse of the right atrium Previewed by: Dr. João Raya MD (Electronically Signed) Final Date: 27 June 2022 12:19
--- NOTE | 2022-06-27 15:22 | P.PN ---
Subjective Progress Note Date: 06/27/22 This is an 86 year old female who follows with Dr. Josh Mcallister, medical history includes chronic right-sided weakness and speech difficulty secondary to stroke back in the 1950s, atrial fibrillation, history of bowel resection with colostomy in 2020 secondary to fecal impaction with bowel perforation, hyper tension, BPH and is a former smoker. Patient maintained on eliquis outpatient. Currently resides with his who is his primary caregiver. Patient presents to the hospital with concern for 3 days of black tarry stool from his ostomy. Denies nausea, denies hemetemesis. No chest pain, no shortness of breath. Prior to that his stools are loose to soft brown yellow in color. Follows with Dr. Dean outpatient Hemoglobin on admission stable at 13.8 and repeated 13.2. Labs are essentially unremarkable for glucose of 102 alk phos 135. Patient is admitted to the hospital for possible GI bleed and GI services consultation. We will hold eliquis pending work up. Patient is currently on room air, heart rate 58, sinus bradycardia, blood pressure 160/76. 06/27/2022 Patient is evaluated today resting in bed. No acute events overnight. No evidence for dark tarry stool from ostomy currently. Hemoglobin remains stable at 13.9. Patient was evaluated by surgery and recommending outpatient endoscopy. Patient was noted to have sinus sancho cardia into the 30s and EKG performed showing sinus bradycardia with first degree AV block and right bundle branch block. Cardiology consultation was requested for bradycardia and also for surgical clearance. He had echocardiogram completed showing EF 45 to 50% with severely increased septal wall thickness, moderate to severe mitral regurgitation mild to moderate aortic regurg and moderate sized pericardial effusion with diastolic collapse of the right atrium. Pending further recommendations from cardiology currently. PHYSICAL EXAMINATION: GENERAL: The patient is alert and oriented x3, not in any acute distress. Well developed, well nourished. HEENT: Pupils are round and equally reacting to light. EOMI. No scleral icterus. No conjunctival pallor. Normocephalic, atraumatic. No pharyngeal erythema. No thyromegaly. CARDIOVASCULAR: S1 and S2 present. No murmurs, rubs, or gallops. PULMONARY: Chest is clear to auscultation, no wheezing or crackles. ABDOMEN: Soft, nontender, nondistended, normoactive bowel sounds. No palpable organomegaly. Left lower quadrant colostomy present. Abdomen is soft and nontender. MUSCULOSKELETAL: No joint swelling or deformity. EXTREMITIES: No cyanosis, clubbing, or pedal edema. NEUROLOGICAL: Gross neurological examination did not reveal any focal deficits. 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 Left upper is 5/5. Speech is slow to respond. SKIN: No rashes. 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 and speech difficulties Paroxysmal atrial fibrillation with cardioversion in 2020 maintained on eliquis outpatient Hypertension Hyperlipidemia History of pulmonary embolism BPH Former tobacco use GI Prophylaxis DVT Prophylaxis recommend to hold eliquis at this time Full Code Plan Recommend to hold eliquis at this time per surgery EGD can be done outpatient discussed with surgery Continue PO protonix Patient is pending cardiology review of echocardiogram with further recommendations Home and outpatient GI follow up once cleared by cardiology The impression and plan of care has been dictated by Lindsay Stearns, Nurse Practitioner as directed. Dr. Phyllis MD I have performed a history and physical examination and medical decision making of this patient, discussed the same with the dictator, and agree with the dictators assessment and plan as written, documented as a scribe. Based on total visit time, I have performed more than 50% of this visit. Objective - Vital Signs Vital signs: Vital Signs Temp 97.9 F 06/27/22 11:26 Pulse 70 06/27/22 11:26 Resp 14 06/27/22 11:26 BP 150/71 06/27/22 11:26 Pulse Ox 96 06/27/22 11:26 FiO2 Intake & Output 06/26/22 06/27/22 06/27/22 18:59 06:59 18:59 Intake Total 375 Output Total 250 Balance 375 -250 Weight 64.864 kg Intake: Intake, IV Titration 375 Amount Sodium Chloride 0.9% 1, 375 000 ml @ 75 mls/hr IV . [id number] KATHLEEN Rx#:[id number] Output: Stool 250 Other: Voiding Method Toilet Urinal Urinal Diaper Diaper Incontinent Incontinent # Voids 1 1 1 - Labs CBC & Chem 7: 06/27/22 08:31 06/26/22 05:43 Assessment and Plan Time with Patient: Less than 30
[2022-06-28] MEDS: SODIUM CHLORIDE 0.9% 1,000 ML IV SCH (04:35)
--- NOTE | 2022-06-28 09:20 | P.GSCN ---
History of Present Illness Consult date: 06/28/22 Reason for Consult: Moderate pericardial effusion with diastolic collapse on transthoracic echocardiogram Requesting physician: Rachel Cruz History of present illness: This is an 86-year-old gentleman who follows on an outpatient basis of Dr. Mcallister for primary care and Dr. Salmon for cardiology. 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 He presented to [facility] emergency room on 06/25/2022 with complaints of 3 days worth of black tarry stools from his ostomy. He was admitted for evaluation and treatment. He was worked up by general surgery who placed his Eliquis on hold with plans for EGD. Unfortunately his EGD was canceled due to bradycardia with heart rate in the 30s. Cardiology was consulted. The patient has a known history of bradycardia as well as SVT, apparently happens mostly at night, he has been on a Holter monitor by Dr. Salmon. He is not currently on any AV earle blocking agents and he remains asymptomatic. Transthoracic echocardiogram was completed demonstrating reduced left ventricular systolic function with EF 45-50%, increased left atrial area, moderate to severe mitral regurgitation with moderate mitral annular calcification, mild to moderate aortic regurgitation, mild tricuspid regurgitation, with moderate pericardial effusion and right atrial diastolic collapse. Due to findings of pericardial effusion consultation was placed to cardiothoracic surgery for treatment recommendations. Review of Systems Review of systems was completed and was negative except as noted - Gastrointestinal Reports change in bowel habits, Reports melena Past Medical History Past Medical History: Atrial Fibrillation, CVA/TIA, Deep Vein Thrombosis (DVT), Hyperlipidemia, Hypertension, Prostate Disorder, Pulmonary Embolus (PE), Supraventricular Tachycardia (SVT) Additional Past Medical History / Comment(s): 1955 CVA with R sided weakness/speech difficulty, post cva pt states he had a blood clot that went into his back/surgery to remove, he denies bilateral PEs/bilateral DVTs as documented in previous medical record, 2020 fecal impaction/bowel perforation with sepsis/has colostomy, colitis, colon polyps, perstomal hernia/wears abdominal binder, past htn, BPH, pt states lasix started d/t edema, protein calorie malnutrition. History of Any Multi-Drug Resistant Organisms: None Reported Past Surgical History: Bowel Resection Additional Past Surgical History / Comment(s): 2020 bowel resection/colostomy, CVA in 1955 which made need for R elbow surgery/R ankle fusion, post cva surgery on back to remove blood clot, bilateral eye lens implants. Past Anesthesia/Blood Transfusion Reactions: No Reported Reaction Additional Past Anesthesia/Blood Transfusion Reaction / Comm: Pt believes he has received blood in past without reaction. Smoking Status: Former smoker Past Alcohol Use History: None Reported Past Drug Use History: None Reported - Past Family History Mother Family Medical History: Dementia Additional Family Medical History / Comment(s): ALZHEIMERS Father Family Medical History: No Reported History Additional Family Medical History / Comment(s): Pt states his father was healthy Medications and Allergies Home Medications Medication Instructions Recorded Confirmed Type Multivitamins, Thera [Multivitamin 1 tab PO DAILY 02/14/18 06/25/22 History (formulary)] Tamsulosin HCl [Flomax] 0.4 mg PO DAILY 02/14/18 06/25/22 History Furosemide [Lasix] 20 mg PO DAILY 05/01/21 06/25/22 History Potassium Chloride [Potassium 10 meq PO DAILY 05/01/21 06/25/22 History Chloride ER] Apixaban [Eliquis] 5 mg PO DAILY 06/25/22 06/25/22 History Donepezil [Aricept] 5 mg PO DAILY 06/25/22 06/25/22 History Allergies Allergy/AdvReac Type Severity Reaction Status Date / Time memantine [From Namenda] AdvReac Nausea & Verified 06/25/22 21:51 Vomiting & Diarrhea Surgical - Exam Vital Signs Temp Pulse Resp BP Pulse Ox 98.4 F 73 20 136/79 97 06/25/22 15:57 06/25/22 15:57 06/25/22 15:57 06/25/22 15:57 06/25/22 15:57 CONSTITUTIONAL: Awake and alert, appears comfortable, cooperative, well- developed, well-nourished, no pain, no acute distress EYES: Pupils equal, round, reactive to light, normal ocular movement ENT: Moist mucous membranes without oral lesions present NECK: No masses, no bruits, trachea midline RESPIRATORY: Lungs sounds clear to auscultation bilaterally. Respirations even, nonlabored. Currently on room air with oxygen saturation 97%. Strong cough. CARDIOVASCULAR: S1, S2 present. Regular rate and rhythm, sinus rhythm on telemetry. Palpable peripheral pulses bilaterally. No edema present. GASTROINTESTINAL: Abdomen soft, nontender, nondistended. Ostomy present GENITOURINARY: Deferred INTEGUMENTARY: Skin is warm and dry NEUROLOGIC: Cranial nerves II through XII intact, normal coordination, no obvious motor or sensory deficits, speech is slow MUSKULOSKELETAL: Able to move all extremities, strength equal bilaterally, normal posture PSYCHIATRIC: Alert and oriented to person place and time, appropriate affect, intact judgment and insight Results - Labs 06/29/22 07:24 06/29/22 07:24 - Imaging Additional studies: Echocardiogram films were reviewed Assessment and Plan Assessment: 1. Moderate pericardial effusion and right atrial diastolic collapse 2. Reduced left ventricular systolic function with EF 45-50%, moderate to severe mitral regurgitation with moderate mitral annular calcification, mild to moderate aortic regurgitation, mild tricuspid regurgitation 3. Dark tarry stools from ostomy present on admission 4. History of atrial fibrillation status [facility] 5. History of sinus bradycardia with occasional pauses as well as SVT, sinus bradycardia in the 30s during this admission 6. History of pulmonary embolism/DVT 7. History of hypertension 8. History of hyperlipidemia 9. CVA in 1956 with right-sided weakness and slowed speech 10. Previous tobacco dependence 11. Bowel perforation secondary to fecal impaction status post bowel resection with colostomy in 2020 Plan: The patient was seen and examined sitting up in a recliner on the cardiac observation unit, currently in no distress eating breakfast. The patient denies any pain or shortness of breath. His vital signs remain relatively stable, he is not tachycardic, he is not hypotensive. The case was discussed in detail with Dr. Sharma. Given that the patient will go back on Eliquis with concern for increasing effusion it is reasonable to offer the patient pericardial window which may be completed tomorrow, will discuss with Dr. Salmon. The usual perioperative course of pericardial window was discussed with the patient, risks and benefits reviewed, all questions were answered, and the patient does consent if this is what is deemed to be the best treatment for him. Continue to hold Eliquis for now. Medical management other comorbidities per internal medicine, cardiology, Gen. surgery. Thank you for this consult. More recommendations to follow. I have personally seen and examined the patient, performed the documentation and the assessment and plan as written. Number of minutes spent on the visit: 30. Erica Correa NP-C Case was discussed between Dr. Raya and Dr. Salmon and they recommend proceeding with surgery. We will plan for pericardial window to be completed tomorrow, 06/29/[address] Israel. Type and screen ordered as well pre-op antibiotic. Continue to hold Eliquis. Will discuss with patient's . Agree with the YARDMASTER's findings above. I spent a total of 30 minutes reviewing his data and discussing the findings and plan with the patient and his .
[2022-06-28] MEDS: MULTIVITAMINS, THERA 1 EACH TAB PO SCH (09:27)
[2022-06-28] MEDS: TAMSULOSIN 0.4 MG CAP.ER.24H PO SCH (09:27)
[2022-06-28] MEDS: PANTOPRAZOLE 40 MG TABLET PO SCH (09:28)
[2022-06-28] MEDS: DONEPEZIL 5 MG TAB PO SCH (09:28)
[2022-06-28] MEDS: FUROSEMIDE 20 MG TAB PO SCH (09:35)
--- NOTE | 2022-06-28 09:35 | P.PN ---
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 He follows in the office with Dr. Salmon. We have been asked to see in consultation for sinus bradycardia and clearance for an endoscopy. Patient presented emergency department 06/25/2022 secondary to 3 days of black tarry stools from his ostomy. General surgery has evaluated the patient and there was a plan for EGD with Dr. Dean but cancelled secondary to echo findings and bradycardia, possibly done as an outpatient. DIAGNOSTICS * Echocardiogram 09/2020 revealed EF of 47%, mild mitral regurgitation, moderate LVH, mild aortic regurgitation, diastolic dysfunction, mild pulmonary hypertension, mild tricuspid regurgitation, RVSP 45 mmHg * He underwent a 24 hour holter monitor in the office 02/21/2022, it revealed sinus bradycardia and occasional pauses predominantly at night with HR low 28. Maxi HR 100, with average HR 61. He had there was 118 episodes of pauses, with longest pause was 2.4 seconds. 34 episodes of NSVT, longest episode was 11 beats, maximum rate of NSVT was 132 bpm. Total of 10 PVCs. No episodes of high degree AV block, no symptoms reported by the patient, no malignant arrhythmias present, no atrial fibrillation present 06/28/2022 Patient seen and examined at bedside, no distress. Denies any chest pain, shortness of breath, lightheadedness, dizziness, symptoms of orthopnea or PND. Denies any bleeding. His hemoglobin is stable at 13.9. His vital signs are stable, blood pressure 156/83, heart rate 54, afebrile, saturations 97% on room air. Patient was slightly tachycardic yesterday. Telemetry reviewed and p atient in sinus rhythm, heart rate 4560s. Echocardiogram revealed an EF of 4550 %, moderate to severe mitral regurgitation, mild to moderate aortic regurgitation, moderate sized pericardial effusion with diastolic collapse of the right atrium, severely increased left atrial volume. PHYSICAL EXAMINATION Vitals reviewed CONSTITUTIONAL: No apparent distress. HEENT: Head is normocephalic. Neck Supple No JVD. CHEST EXAMINATION: Lungs are clear to auscultation. No chest wall tenderness is noted on palpation or with deep breathing. HEART EXAMINATION: Regular rate and rhythm. S1, S2 heard. systolic murmur at apex, No gallops or rub. ABDOMEN: Soft, nontender. Positive bowel sounds. brown stool noted in ostomy EXTREMITIES: 2+ peripheral pulses, no lower extremity edema and no calf tenderness. NEUROLOGIC EXAMINATION: Patient is awake, alert and oriented x3. ASSESSMENT Sinus bradycardia, predominantly at night, asymptomatic Moderate pericardial effusion and right atrial diastolic collapse Moderate to severe mitral regurgitation Dark, tarry stools Paroxysmal atrial fibrillation s/p prior cardioversion in 2020 on Eliquis outpatient Mildly reduced ejection fraction 45-50%, likely non-ischemic History of pulmonary embolism Hyperlipidemia History of CVA in 195 with chronic right-sided weakness and speech difficulty Former smoker History of bowel resection with colostomy in 2020 secondary to fecal impaction with bowel perforation PLAN Recommend CT surgery consult to evaluate for possible pericardial window. Per CT surgery given that the patient will go back on Eliquis with concern for increasing effusion it is reasonable to offer the patient pericardial window which may be completed tomorrow. Discussed the recommendations with the patient and his per his request Patient would like to discuss with his when she comes to the hospital Continue cardiac telemetry Continue hold Eliquis NPO after midnight Further recommendations based on clinical course Nurse practitioner note has been reviewed by physician. Signing provider agrees with the documented findings, assessment, and plan of care. Objective - Vital Signs Vital signs: Vital Signs Temp 97.5 F L 06/28/22 04:30 Pulse 54 L 06/28/22 04:30 Resp 14 06/28/22 04:30 BP 156/83 06/28/22 04:30 Pulse Ox 97 06/28/22 04:30 FiO2 Intake & Output 06/27/22 06/28/22 06/28/22 18:59 06:59 18:59 Intake Total 400 Balance 400 Intake: Oral 400 Other: Voiding Method Urinal Diaper Incontinent # Voids 1 1 # Bowel Movements 1 - Labs CBC & Chem 7: 06/27/22 08:31 06/28/22 05:55
[2022-06-28 10:50] LABS: African American GFR (CKD) 89.3 (60.0-200.0); Anion Gap 8.5 mmol/L (10.00-18.00); BUN/Creat Ratio 14.67 Ratio (12.00-20.00); Blood Urea Nitrogen 13.2 mg/dL (9.0-27.0); Calcium 8.8 mg/dL (8.7-10.3); Carbon Dioxide 25.5 mmol/L (20.0-27.5); Magnesium 1.9 mg/dL (1.5-2.4); Non-African American GFR(CKD) 77.1 (60.0-200.0); Potassium 3.9 mmol/L (3.5-5.5)
--- NOTE | 2022-06-28 12:21 | P.PN ---
Subjective Progress Note Date: 06/28/22 CHIEF COMPLAINT: Black stools HISTORY OF PRESENT ILLNESS: Patient sitting at bedside chair. Patient denies any abdominal pain. Denies any black stools. He is tolerating diet. Patient had echocardiogram completed showing a moderate pericardial effusion with right atrial diastolic collapse. He has now been seen by cardiothoracic service and they're planning on the pericardial window tomorrow. Afebrile. Heart rate 60. Hemoglobin 13.9. Stool for occult blood negative PHYSICAL EXAM: VITAL SIGNS: Reviewed. GENERAL: Well-developed in no acute distress. HEENT: No sclera icterus. Extraocular movements grossly intact. Moist buccal mucosa. Head is atraumatic, normocephalic. ABDOMEN: Soft. Nondistended. Nontender. NEUROLOGIC: Alert and oriented. Cranial nerves II through XII grossly intact. ASSESSMENT: 1. Acute GI bleed with black stools 2. On daily anticoagulation for his A. fib PLAN: -EGD can be completed outpatient -Continue PPI -Continue regular diet -Continue to hold Eliquis for now -Continue to monitor for any signs or symptoms of bleeding Physician Manager Sound note has been reviewed by physician. Signing provider agrees with the documented findings, assessment, and plan of care. I have personally seen and examined the patient, reviewed the UTILITY MAINTENANCE WORKER /PAs history, exam and MDM and agree with the assessment and plan as written. Based on total visit time, I have performed more than 50% of the visit. As above: Patient without further bleeding. Apparently now is being set up for pericardial window. Continue regular diet. No plans for EGD at this time. We'll sign off. Follow-up as outpatient for upper endoscopy. Objective - Vital Signs Vital signs: Vital Signs Temp 98.0 F 06/28/22 11:35 Pulse 60 06/28/22 11:35 Resp 16 06/28/22 11:35 BP 135/71 06/28/22 11:35 Pulse Ox 97 06/28/22 04:30 FiO2 Intake & Output 06/27/22 06/28/22 06/28/22 18:59 06:59 18:59 Intake Total 400 Balance 400 Intake: Oral 400 Other: Voiding Method Urinal Toilet Diaper Diaper Incontinent Incontinent # Voids 1 1 # Bowel Movements 1 - Labs CBC & Chem 7: 06/27/22 08:31 06/28/22 05:55 Labs: Abnormal Lab Results - Last 24 Hours (Table) 06/28/22 Range/Units 05:55 Anion Gap 8.50 L (10.00-18.00) mmol/L
--- NOTE | 2022-06-28 14:45 | P.PN ---
Subjective Progress Note Date: 06/28/22 This is an 86 year old female who follows with Dr. Josh Mcallister, medical history includes chronic right-sided weakness and speech difficulty secondary to stroke back in the 1950s, atrial fibrillation, history of bowel resection with colostomy in 2020 secondary to fecal impaction with bowel perforation, hyper tension, BPH and is a former smoker. Patient maintained on eliquis outpatient. Currently resides with his who is his primary caregiver. Patient presents to the hospital with concern for 3 days of black tarry stool from his ostomy. Denies nausea, denies hemetemesis. No chest pain, no shortness of breath. Prior to that his stools are loose to soft brown yellow in color. Follows with Dr. Dean outpatient Hemoglobin on admission stable at 13.8 and repeated 13.2. Labs are essentially unremarkable for glucose of 102 alk phos 135. Patient is admitted to the hospital for possible GI bleed and GI services consultation. We will hold eliquis pending work up. Patient is currently on room air, heart rate 58, sinus bradycardia, blood pressure 160/76. 06/27/2022 Patient is evaluated today resting in bed. No acute events overnight. No evidence for dark tarry stool from ostomy currently. Hemoglobin remains stable at 13.9. Patient was evaluated by surgery and recommending outpatient endoscopy. Patient was noted to have sinus sancho cardia into the 30s and EKG performed showing sinus bradycardia with first degree AV block and right bundle branch block. Cardiology consultation was requested for bradycardia and also for surgical clearance. He had echocardiogram completed showing EF 45 to 50% with severely increased septal wall thickness, moderate to severe mitral regurgitation mild to moderate aortic regurg and moderate sized pericardial effusion with diastolic collapse of the right atrium. Pending further recommendations from cardiology currently. 06/28/2022 Patient sitting up in chair continues on the medical floor with telemetry monitoring. Echocardiogram reviewed by cardiology and cardiothoracic services has been consulted and plan for tentative pericardial window with Dr. Israel. Eliquis remains on hold at this time. Patient continues to remain asymptomatic and also his dark tarry stools have resolved. Currently has brown semi formed stool from ostomy. General surgery following and patient will follow up for outpatient EGD. PHYSICAL EXAMINATION: GENERAL: The patient is alert and oriented x3, not in any acute distress. Well developed, well nourished. HEENT: Pupils are round and equally reacting to light. EOMI. No scleral icterus. No conjunctival pallor. Normocephalic, atraumatic. No pharyngeal erythema. No thyromegaly. CARDIOVASCULAR: S1 and S2 present. No murmurs, rubs, or gallops. PULMONARY: Chest is clear to auscultation, no wheezing or crackles. ABDOMEN: Soft, nontender, nondistended, normoactive bowel sounds. No palpable organomegaly. Left lower quadrant colostomy present. Abdomen is soft and nontender. MUSCULOSKELETAL: No joint swelling or deformity. EXTREMITIES: No cyanosis, clubbing, or pedal edema. NEUROLOGICAL: Gross neurological examination did not reveal any focal deficits. 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 Left upper is 5/5. Speech is slow to respond. SKIN: No rashes. 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 Israel Recommend to hold eliquis at this time per surgery EGD can be done outpatient discussed with surgery Continue PO protonix Home and outpatient GI follow up once cleared by cardiology The impression and plan of care has been dictated by Lindsay Stearns, Nurse Practitioner as directed. Dr. Phyllis MD I have performed a history and physical examination and medical decision making of this patient, discussed the same with the dictator, and agree with the dictators assessment and plan as written, documented as a scribe. Based on total visit time, I have performed more than 50% of this visit. Objective - Vital Signs Vital signs: Vital Signs Temp 98.0 F 06/28/22 11:35 Pulse 60 06/28/22 11:35 Resp 16 06/28/22 11:35 BP 135/71 06/28/22 11:35 Pulse Ox 97 06/28/22 04:30 FiO2 Intake & Output 06/27/22 06/28/22 06/28/22 18:59 06:59 18:59 Intake Total 400 Balance 400 Intake: Oral 400 Other: Voiding Method Urinal Toilet Diaper Diaper Incontinent Incontinent # Voids 1 1 # Bowel Movements 1 - Labs CBC & Chem 7: 06/27/22 08:31 06/28/22 05:55 Labs: Abnormal Lab Results - Last 24 Hours (Table) 06/28/22 Range/Units 05:55 Anion Gap 8.50 L (10.00-18.00) mmol/L Assessment and Plan Time with Patient: Less than 30
[2022-06-29 07:39] LABS: Basophils % (A) 0 %; Eosinophils # (A) 0.2 k/uL (0-0.7); Eosinophils % (A) 2 %; HCT 39.1 % (39.0-53.0); HGB 13.3 gm/dL (13.0-17.5); Lymphocytes # (A) 1.7 k/uL (1.0-4.8); Lymphocytes % (A) 23 %; MCH 31.2 pg (25.0-35.0); MCV 91.9 fL (80.0-100.0); Mean Platelet Volume 8.5; Monocytes # (A) 0.4 k/uL (0-1.0); Monocytes % (A) 5 %; Neutrophils % (A) 68 %; Platelet Count 200 k/uL (150-450); RBC 4.25 m/uL (4.30-5.90); RDW 12.8 % (11.5-15.5); WBC 7.3 k/uL (3.8-10.6)
[2022-06-29 07:57] LABS: African American GFR (CKD) 76 (>60 ml/min/1.73 sqM); Anion Gap 10 mmol/L; Blood Urea Nitrogen 20 mg/dL (9-20); Carbon Dioxide 25 mmol/L (22-30); Chloride 104 mmol/L (98-107); Glucose 90 mg/dL (74-99); Non-African American GFR(CKD) 66 (>60 ml/min/1.73 sqM); Potassium 3.8 mmol/L (3.5-5.1); Sodium 139 mmol/L (137-145)
[2022-06-29] MEDS: PANTOPRAZOLE 40 MG TABLET PO SCH (08:12)
[2022-06-29] MEDS: MULTIVITAMINS, THERA 1 EACH TAB PO SCH (08:12)
[2022-06-29] MEDS: FUROSEMIDE 20 MG TAB PO SCH (08:12)
[2022-06-29] MEDS: DONEPEZIL 5 MG TAB PO SCH (08:12)
[2022-06-29] MEDS: TAMSULOSIN 0.4 MG CAP.ER.24H PO SCH (08:12)
--- NOTE | 2022-06-29 10:07 | P.PN ---
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 He follows in the office with Dr. Salmon. We have been asked to see in consultation for sinus bradycardia and clearance for an endoscopy. Patient presented emergency department 06/25/2022 secondary to 3 days of black tarry stools from his ostomy. General surgery has evaluated the patient and there was a plan for EGD with Dr. Dean but cancelled secondary to echo findings and bradycardia, possibly done as an outpatient. DIAGNOSTICS * Echocardiogram 09/2020 revealed EF of 47%, mild mitral regurgitation, moderate LVH, mild aortic regurgitation, diastolic dysfunction, mild pulmonary hypertension, mild tricuspid regurgitation, RVSP 45 mmHg * He underwent a 24 hour holter monitor in the office 02/21/2022, it revealed sinus bradycardia and occasional pauses predominantly at night with HR low 28. Maxi HR 100, with average HR 61. He had there was 118 episodes of pauses, with longest pause was 2.4 seconds. 34 episodes of NSVT, longest episode was 11 beats, maximum rate of NSVT was 132 bpm. Total of 10 PVCs. No episodes of high degree AV block, no symptoms reported by the patient, no malignant arrhythmias present, no atrial fibrillation present 06/29/2022 Patient seen and examined at bedside, no distress. Denies any chest pain, shortness of breath, lightheadedness, dizziness, symptoms of orthopnea or PND. Denies any bleeding. His hemoglobin is stable at 13.3. His vital signs are stable. Telemetry reviewed and patient in sinus rhythm, heart rate 4570s. Does have episodes of sinus bradycardia overnight. Echocardiogram revealed an EF of 4550 %, moderate to severe mitral regurgitation, mild to moderate aortic regurgitation, moderate sized pericardial effusion with diastolic collapse of the right atrium, severely increased left atrial volume. PHYSICAL EXAMINATION Vitals reviewed CONSTITUTIONAL: No apparent distress. HEENT: Head is normocephalic. Neck Supple No JVD. CHEST EXAMINATION: Lungs are clear to auscultation. No chest wall tenderness is noted on palpation or with deep breathing. HEART EXAMINATION: Regular rate and rhythm. S1, S2 heard. systolic murmur at apex, No gallops or rub. ABDOMEN: Soft, nontender. Positive bowel sounds. brown stool noted in ostomy EXTREMITIES: 2+ peripheral pulses, no lower extremity edema and no calf tenderness. NEUROLOGIC EXAMINATION: Patient is awake, alert and oriented x3. ASSESSMENT Sinus bradycardia, predominantly at night, asymptomatic Moderate pericardial effusion and right atrial diastolic collapse Moderate to severe mitral regurgitation Dark, tarry stools Paroxysmal atrial fibrillation s/p prior cardioversion in 2020 on Eliquis outpatient Mildly reduced ejection fraction 45-50%, likely non-ischemic History of pulmonary embolism Hyperlipidemia History of CVA in 1955 with chronic right-sided weakness and speech difficulty Former smoker History of bowel resection with colostomy in 2020 secondary to fecal impaction with bowel perforation PLAN CT surgery consulted and plan for pericardial window today with Dr. Israel Continue cardiac telemetry Continue hold Eliquis Further recommendations based on clinical course Nurse practitioner note has been reviewed by physician. Signing provider agrees with the documented findings, assessment, and plan of care. Objective - Vital Signs Vital signs: Vital Signs Temp 98.3 F 06/29/22 04:36 Pulse 73 06/29/22 08:38 Resp 18 06/29/22 08:38 BP 162/89 06/29/22 08:38 Pulse Ox 99 06/29/22 08:38 FiO2 Intake & Output 06/28/22 06/29/22 06/29/22 18:59 06:59 18:59 Intake Total 200 Balance 200 Intake: Oral 200 Other: Voiding Method Toilet Toilet Diaper Diaper Incontinent Incontinent # Voids 1 1 # Bowel Movements 1 - Labs CBC & Chem 7: 06/29/22 07:24 06/29/22 07:24 Labs: Abnormal Lab Results - Last 24 Hours (Table) 06/28/22 06/29/22 Range/Units 05:55 07:24 RBC 4.25 L (4.30-5.90) m/uL Anion Gap 8.50 L (10.00-18.00) mmol/L
[2022-06-29] MEDS ORDERED: LACTATED RINGERS 1,000 ML IV ONE ×2 (13:30→14:39)
[2022-06-29] MEDS ORDERED: DEXAMETHASONE SOD PHOSPHATE 4 MG/ML 1 ML VIAL IVP ONE (13:30)
[2022-06-29] MEDS ORDERED: NEOSTIGMINE 1 MG/ML 10 ML VIAL ONE (13:57)
[2022-06-29] MEDS ORDERED: SUCCINYLCHOLINE CHLORIDE 200 MG/10 ML VIAL IV ONE (13:57)
[2022-06-29] MEDS ORDERED: GLYCOPYRROLATE 0.2 MG/ML 2 ML VIAL ONE (13:57)
[2022-06-29] MEDS ORDERED: fentaNYL (PF) 50 MCG/ML 2 ML AMP ONE (13:57)
[2022-06-29] MEDS ORDERED: ETOMIDATE 2 MG/ML 10 ML VIAL ONE (13:57)
[2022-06-29] MEDS ORDERED: MIDAZOLAM 2 MG/2 ML VIAL ONE (13:57)
[2022-06-29] MEDS ORDERED: ROCURONIUM 10 MG/ML (5 ML VIAL) IV ONE (13:57)
--- NOTE | 2022-06-29 14:43 | P.OP ---
Date of Procedure: 06/29/22 Preoperative Diagnosis: Pericardial effusion Postoperative Diagnosis: Same Procedure(s) Performed: 1. Sub xiphoid pericardial window 2. Trans-esophageal echo Anesthesia: CHRISA Surgeon: Deangelo Israel Benefits Specialist #1: Justo Syed Estimated Blood Loss (ml): 5 Pathology: other (pericardium and pericardial fluid for cytology) Condition: stable Disposition: PACU Indications for Procedure: This patient is an 84 y/o M with a hx of cva, a-fib on eliquis who presented with a LGIB via colostomy. He is s/p diversion for diverticulitis and does not have a known hx of CA. He was noted to have a moderate pericardial effusion. He requires a diagnostic and therapeutic pericardial window prior to restarting his AC. Operative Findings: 250cc of straw colored fluid. Pericardium appeared normal. Description of Procedure: The patient was brought to the operating room and placed in the supine position. He underwent general anesthesia and antibiotics were given. His chest was prepped and draped in the usual sterile fashion. I made 3cm sub-xiphoid incision. This was carried down to the xiphoid using electrocautery. A retractor was placed and the xiphoid was incised with a scissor. A sponge stick was used to expose the pericardium, which was then grasped and incised using low level cautery. There was immediate serous drainage noted. 250cc of straw colored fluid was drained. A piece of the pericardium was resected and sent to pathology. Fluid was sent for cytology. SEKOU was used to confirm complete drainage. A 19F shima was left in the pericardium along the diaphragm. The wound was closed in layers and glue.
--- NOTE | 2022-06-29 15:43 | P.PN ---
Subjective Progress Note Date: 06/29/22 This is an 86 year old female who follows with Dr. Josh Mcallister, medical history includes chronic right-sided weakness and speech difficulty secondary to stroke back in the 1950s, atrial fibrillation, history of bowel resection with colostomy in 2020 secondary to fecal impaction with bowel perforation, hyper tension, BPH and is a former smoker. Patient maintained on eliquis outpatient. Currently resides with his who is his primary caregiver. Patient presents to the hospital with concern for 3 days of black tarry stool from his ostomy. Denies nausea, denies hemetemesis. No chest pain, no shortness of breath. Prior to that his stools are loose to soft brown yellow in color. Follows with Dr. Dean outpatient Hemoglobin on admission stable at 13.8 and repeated 13.2. Labs are essentially unremarkable for glucose of 102 alk phos 135. Patient is admitted to the hospital for possible GI bleed and GI services consultation. We will hold eliquis pending work up. Patient is currently on room air, heart rate 58, sinus bradycardia, blood pressure 160/76. 06/27/2022 Patient is evaluated today resting in bed. No acute events overnight. No evidence for dark tarry stool from ostomy currently. Hemoglobin remains stable at 13.9. Patient was evaluated by surgery and recommending outpatient endoscopy. Patient was noted to have sinus sancho cardia into the 30s and EKG performed showing sinus bradycardia with first degree AV block and right bundle branch block. Cardiology consultation was requested for bradycardia and also for surgical clearance. He had echocardiogram completed showing EF 45 to 50% with severely increased septal wall thickness, moderate to severe mitral regurgitation mild to moderate aortic regurg and moderate sized pericardial effusion with diastolic collapse of the right atrium. Pending further recommendations from cardiology currently. 06/28/2022 Patient sitting up in chair continues on the medical floor with telemetry monitoring. Echocardiogram reviewed by cardiology and cardiothoracic services has been consulted and plan for tentative pericardial window with Dr. Israel. Eliquis remains on hold at this time. Patient continues to remain asymptomatic and also his dark tarry stools have resolved. Currently has brown semi formed stool from ostomy. General surgery following and patient will follow up for outpatient EGD. 06/29/2022 Patient is monitored today sitting up in chair on medical floor. He remains chest pain free, denies shortness of breath. He has brown semi-formed stool from ostomy no evidence for black tarry stool. Eliquis remains on hold and patient is scheduled to undergo pericardial window today with Dr. Israel. Labs today showing white count of 7.3, hgb remains stable at 13.3. Electrolytes are within normal limits BUN 20 creatinine 1.03. Afebrile, 96% on room air. Blood pressure today 141/70, heart rate 60. Patient will be monitored postoperatively in intensive care unit. PHYSICAL EXAMINATION: GENERAL: The patient is alert and oriented x3, not in any acute distress. Well developed, well nourished. HEENT: Pupils are round and equally reacting to light. EOMI. No scleral icterus. No conjunctival pallor. Normocephalic, atraumatic. No pharyngeal erythema. No thyromegaly. CARDIOVASCULAR: S1 and S2 present. No murmurs, rubs, or gallops. PULMONARY: Chest is clear to auscultation, no wheezing or crackles. ABDOMEN: Soft, nontender, nondistended, normoactive bowel sounds. No palpable organomegaly. Left lower quadrant colostomy present. Abdomen is soft and nontender. MUSCULOSKELETAL: No joint swelling or deformity. EXTREMITIES: No cyanosis, clubbing, or pedal edema. NEUROLOGICAL: Gross neurological examination did not reveal any focal deficits. 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 Left upper is 5/5. Speech is slow to respond. SKIN: No rashes. Assessment and Plan Assessment Black tarry stool from ostomy possible acute upper GI bleed, resolved. hemoglobin stable 13.3. Sinus bradycardia with first degree AV block, known pauses and also SVT with known bradycardia recently underwent holter monitor outpatient Pericardial effusion with right atrial diastolic collapse History bowel perforation with bowel resection and end ostomy History of Stroke with residual deficits right sided weakness, mild he does have contractures to right hand and speech difficulties Paroxysmal atrial fibrillation with cardioversion in 2020 maintained on eliquis outpatient Hypertension Hyperlipidemia History of pulmonary embolism BPH Former tobacco use GI Prophylaxis DVT Prophylaxis recommend to hold eliquis at this time Full Code Plan Patient is scheduled for pericardial window today with Dr. Israel Patient will be monitored postoperatively in intensive care unit Recommend to hold eliquis at this time per surgery EGD can be done outpatient discussed with surgery Continue PO protonix Home and outpatient GI follow up The impression and plan of care has been dictated by Lindsay Stearns Nurse Practitioner as directed. Dr. Phyllis MD I have performed a history and physical examination and medical decision making of this patient, discussed the same with the dictator, and agree with the dictators assessment and plan as written, documented as a scribe. Based on total visit time, I have performed more than 50% of this visit. Objective - Vital Signs Vital signs: Vital Signs Temp 97.7 F 06/29/22 13:07 Pulse 78 06/29/22 13:07 Resp 16 06/29/22 13:07 BP 140/77 06/29/22 13:07 Pulse Ox 97 06/29/22 13:07 FiO2 Intake & Output 06/28/22 06/29/22 06/29/22 18:59 06:59 18:59 Intake Total 200 Balance 200 Intake: Oral 200 Other: Voiding Method Toilet Toilet Diaper Diaper Incontinent Incontinent # Voids 1 1 # Bowel Movements 1 - Labs CBC & Chem 7: 06/29/22 07:24 06/29/22 07:24 Labs: Abnormal Lab Results - Last 24 Hours (Table) 06/29/22 Range/Units 07:24 RBC 4.25 L (4.30-5.90) m/uL Assessment and Plan Time with Patient: Less than 30
[2022-06-29] MEDS: KETOROLAC 15 MG/ML 1 ML VIAL IVP SCH ×2 (16:08→23:37)
--- NOTE | 2022-06-29 16:12 | XR ---
EXAMINATION TYPE: XR chest 1V portable DATE OF EXAM: 06/29/2022 3:59 PM COMPARISON: Chest radiographs from 02/25/2022 TECHNIQUE: XR chest 1V portable Portable AP radiograph of the chest. CLINICAL INDICATION:Male, 86 years old with history of Postoperative pericardial window; FINDINGS: Lungs/Pleura: Increased interstitial lung opacities compared to prior. Low lung volumes are present. There is no evidence of pleural effusion, focal consolidation, or pneumothorax. Pulmonary vascularity: Unremarkable. Heart/mediastinum: Cardiomediastinal silhouette is prominent in size. Musculoskeletal: Degenerative changes of the shoulder joints. Tubes: Mediastinal chest tube is present. IMPRESSION: Interval worsening of interstitial lung opacities likely secondary to low lung lines. Mediastinal chest tube in place without evidence of pneumomediastinum.
[2022-06-29] MEDS: ACETAMINOPHEN IV (For NPO) 1,000 MG in EMPTY BAG 1 BAG IVPB SCH ×2 (16:24→23:36)
[2022-06-29 16:42] LABS: Glucose,Whole Blood 124 mg/dL (70-110)
[2022-06-29 20:09] LABS: Glucose,Whole Blood 138 mg/dL (70-110)
[2022-06-30] MEDS: TAMSULOSIN 0.4 MG CAP.ER.24H PO SCH (09:01)
[2022-06-30] MEDS: FUROSEMIDE 20 MG TAB PO SCH (09:02)
[2022-06-30] MEDS: MULTIVITAMINS, THERA 1 EACH TAB PO SCH (09:02)
[2022-06-30] MEDS: DONEPEZIL 5 MG TAB PO SCH (09:02)
--- NOTE | 2022-06-30 10:17 | P.PN ---
Subjective Progress Note Date: 06/30/22 Principal diagnosis: Moderate pericardial effusion. Past medical history significant for paroxysmal atrial fibrillation status post cardioversion in September 2020 on Eliqu in the outpatient setting, sinus bradycardia with occasional pauses as well as SVT, pulmonary embolism, hypertension, hyperlipidemia, CVA in 1956 with right-sided weakness and slowed speech, previous tobacco dependence, and bowel perforation secondary to fecal impaction status post bowel resection with colostomy in 2020. POD #1 subxiphoid pericardial window and intraoperative transesophageal echocard iogram. The patient was seen and examined in follow-up today 06/30/2022 at his bedside on the cardiac stepdown unit. Currently he is sitting up in bed, is awake, alert, oriented 3 and is in no acute apparent distress. Denies any complaints of shortness of breath at this time although is complaining of some surgical type pain to his subxiphoid Rashard chest tube insertion site. Currently rates h is pain 1-2 out of 10 on the pain scale. He underwent a subxiphoid pericardial window yesterday performed by Dr. Israel with 250 mL of straw-colored fluid drained. Cytology and pericardial tissue biopsy results remain pending. His nurse from last night reports that he had some urine retention and was bladder scanned for around 900 mL of urine, he was subsequently straight cathed for 300 mL of urine output. He remains afebrile, oxygen saturation are 95% on room air and remote telemetry is showing normal sinus rhythm with a heart rate of 82 BPM. Laboratory results remain pending at this time. Subxiphoid Rashard drain chest tube remains in place to low continuous wall suction -20 cm H2O. No air leak is present. Draining thin serosanguineous drainage with 85 mL output since surgery. Objective - Vital Signs Vital signs: Vital Signs Temp 98 F 06/29/22 20:07 Pulse 82 06/29/22 20:07 Resp 16 06/30/22 01:08 BP 137/79 06/29/22 20:07 Pulse Ox 93 L 06/29/22 20:07 FiO2 Intake & Output 06/29/22 06/30/22 06/30/22 18:59 06:59 18:59 Intake Total 1340 Output Total 65 0 Balance 1275 0 Intake: IV 1100 Oral 240 Output: Chest Tube Drainage 60 0 Chest Tube Anterior Chest 60 0 Drainage 0 Anterior Medial Chest 0 Estimated Blood Loss 5 Other: Voiding Method Toilet Diaper Incontinent # Voids 0 - Exam CONSTITUTIONAL: Sitting up in bed on the cardiac stepdown unit, appears comfortable, cooperative, no apparent acute distress. HEENT: Neck is supple, no JVD, no lymphadenopathy. RESPIRATORY: Lungs sounds essentially clear throughout, diminished to his bilateral bases. Respirations are symmetrical and nonlabored. Currently on room air with oxygen saturations 95%. Strong cough. CARDIOVASCULAR: Regular rhythm and rate. S1 and S2 present, negative for S3, gallop or murmur. Palpable peripheral pulses bilaterally. No calf pain or tenderness noted. GASTROINTESTINAL: Abdomen soft, nontender, nondistended. Active bowel sounds present 4 quadrants. Tolerating diet. Left lower quadrant abdominal colostomy stoma appears prolapsed. GENITOURINARY: Urine retention requiring straight catheterization. 600 mL of urine output in the last 8 hours. INTEGUMENTARY: Skin is warm and dry with no evidence of clubbing or cyanosis. Subxiphoid incision clean dry and well approximated, covered with dry intact dressing. NEUROLOGIC: Cranial nerves II through XII intact. No focal deficits. MUSKULOSKELETAL: Able to move all extremities. Chronic weakness to his right upper extremity and limited range of motion. PSYCHIATRIC: Alert and oriented to person place and time, appropriate affect, intact judgment and insight. INVASIVE LINES AND TUBES: Subxiphoid Rashard chest tube present and connected to low continuous wall suction -20 cm H2O, no air leaks present. Draining thin serosanguineous drainage with 85 mL output since surgery. - Allied health notes Allied health notes reviewed: nursing - Labs CBC & Chem 7: 06/29/22 07:24 06/29/22 07:24 Labs: Abnormal Lab Results - Last 24 Hours (Table) 06/29/22 06/29/22 Range/Units 16:24 20:07 POC Glucose (mg/dL) 124 H 138 H (70-110) mg/dL - Imaging and Cardiology Chest x-ray: image reviewed Assessment and Plan Assessment: 1. Moderate pericardial effusion, status post subxiphoid pericardial window 2. Reduced left ventricular systolic function with EF 45-50%, moderate to severe mitral regurgitation with moderate mitral annular calcification, mild to moderate aortic regurgitation, mild tricuspid regurgitation 3. Dark tarry stools from ostomy present on admission 4. History of atrial fibrillation status post cardioversion in September 2020 on Eliquis in the outpatient setting 5. History of sinus bradycardia with occasional pauses as well as SVT, sinus bradycardia in the 30s during this admission 6. History of pulmonary embolism/DVT 7. History of hypertension 8. History of hyperlipidemia 9. CVA in 1956 with right-sided weakness and slowed speech 10. Previous tobacco dependence 11. Bowel perforation secondary to fecal impaction status post bowel resection with colostomy in 2020 Plan: 1. We will remove his subxiphoid Rashard chest tube. 2. Encourage use of his incentive spirometry 10 times every hour while awake. 3. Medical management, urine retention, and other comorbidities per primary care service and other consultants. 4. Colostomy management per general surgery recommendations. 5. We will continue to follow the patient's cytology and pericardial biopsy pathology results. 6. GI and DVT prophylaxis. 7. Increase activity as tolerated. Out of bed for all meals. 8. We will continue to follow the patient on an as-needed basis. Please call for any further questions. Time with Patient: Greater than 30
[2022-06-30] MEDS: PANTOPRAZOLE 40 MG TABLET PO SCH (10:25)
[2022-06-30] MEDS: KETOROLAC 15 MG/ML 1 ML VIAL IVP SCH (10:26)
--- NOTE | 2022-06-30 11:00 | P.PN ---
Subjective Progress Note Date: 06/30/22 PROGRESS NOTE The patient is an 86-year-old male with known history of paroxysmal atrial ablation, pulmonary embolism, status post CVA who presented to the hospital with possible GI bleeding and was found to have significant pericardial effusion. Underwent placement of a pericardial to yesterday by Dr. Israel with a pericardial window. He's feeling well this morning. He denies any chest discomfort, dizziness or palpitations. He continues to be in sinus mechanism with no significant pauses. His echocardiogram showed an ejection fraction of 45-50% with moderate to severe mitral regurgitation. He has serosanguineous drainage. Culture and cytology are pending. Medications: Lasix 20 mg daily, Flomax, Aricept PHYSICAL EXAMINATION: Blood pressure 120/80 heart rate 60 LUNGS: Clear to auscultation HEART: Regular rate and rhythm, S1, S2. No S3. Holosystolic murmur ABDOMEN: Soft, nontender, no organomegaly colostomy noted EXTREMETIES: No edema LAB: Pending IMPRESSION: 1. Pericardial effusion status post pericardial window 2. Paroxysmal atrial fibrillation, maintaining sinus mechanism with episodes of sinus bradycardia but no significant pauses 3. GI bleed 4. Prior history of CVA PLAN: 1. Continue present therapy 2. Resume anticoagulation when acceptable by surgical team 3. Follow rhythm 4. Follow her renal function and CBC Objective - Vital Signs Vital signs: Vital Signs Temp 98.1 F 06/30/22 08:00 Pulse 60 06/30/22 08:00 Resp 16 06/30/22 08:00 BP 120/81 06/30/22 08:00 Pulse Ox 95 06/30/22 08:00 FiO2 Intake & Output 06/29/22 06/30/22 06/30/22 18:59 06:59 18:59 Intake Total 1340 118 Output Total 65 0 15 Balance 1275 0 103 Intake: IV 1100 Oral 240 118 Output: Chest Tube Drainage 60 0 15 Chest Tube Anterior Chest 60 0 15 Drainage 0 Anterior Medial Chest 0 Estimated Blood Loss 5 Other: Voiding Method Toilet Toilet Diaper Diaper Incontinent Incontinent # Voids 0 - Labs CBC & Chem 7: 06/29/22 07:24 06/29/22 07:24 Labs: Abnormal Lab Results - Last 24 Hours (Table) 06/29/22 06/29/22 Range/Units 16:24 20:07 POC Glucose (mg/dL) 124 H 138 H (70-110) mg/dL
[2022-06-30] MEDS: ACETAMINOPHEN TAB 500 MG TAB PO PRN ×2 (11:14→20:09)
[2022-06-30 11:36] LABS: Glucose,Whole Blood 90 mg/dL (70-110)
--- NOTE | 2022-06-30 11:36 | XR ---
EXAMINATION TYPE: XR chest 1V portable DATE OF EXAM: 06/29/2022 3:39 PM COMPARISON: Chest radiographs from 06/29/2022 TECHNIQUE: XR chest 1V portable Portable AP radiograph of the chest. CLINICAL INDICATION:Male, 86 years old with history of Postoperative pericardial window; FINDINGS: Lungs/Pleura: There is flattening of the diaphragm with increased lucency of the lungs. No evidence o f pneumothorax, pleural effusion or focal consolidation. Pulmonary vascularity: Unremarkable. Heart/mediastinum: Cardiac size is normal. Musculoskeletal: Degenerative changes of the right shoulder joint. Other: Tubing projects over the lower heart and is in similar position. No evidence pneumomediastinum . IMPRESSION: 1. Catheter tubing projecting over the inferior aspect of the heart, appears in similar position. No evidence of pneumomediastinum. 2. COPD changes.
[2022-06-30 11:52] LABS: Glucose,Whole Blood 269 mg/dL (70-110)
[2022-06-30 14:49] VITALS: BMI 21.1
[2022-06-30 19:00] LABS: Basophils % (A) 0 %; Eosinophils % (A) 0 %; HCT 37.6 % (39.0-53.0); HGB 12.8 gm/dL (13.0-17.5); Lymphocytes # (A) 1.6 k/uL (1.0-4.8); Lymphocytes % (A) 13 %; MCH 31.7 pg (25.0-35.0); MCHC 34.1 g/dL (31.0-37.0); Monocytes # (A) 0.4 k/uL (0-1.0); Monocytes % (A) 3 %; Neutrophils # (A) 9.7 k/uL (1.3-7.7); Neutrophils % (A) 83 %; Platelet Count 168 k/uL (150-450); RBC 4.05 m/uL (4.30-5.90); RDW 12.9 % (11.5-15.5); WBC 11.7 k/uL (3.8-10.6)
[2022-06-30 19:58] LABS: Albumin 3.6 g/dL (3.5-5.0); Potassium 4.2 mmol/L (3.5-5.1); Total Bilirubin 1.3 mg/dL (0.2-1.3); Total Protein 6.1 g/dL (6.3-8.2)
[2022-07-01] MEDS: PANTOPRAZOLE 40 MG TABLET PO SCH (06:09)
[2022-07-01] MEDS: TAMSULOSIN 0.4 MG CAP.ER.24H PO SCH (08:45)
[2022-07-01] MEDS: DONEPEZIL 5 MG TAB PO SCH (08:45)
[2022-07-01] MEDS: FUROSEMIDE 20 MG TAB PO SCH (08:45)
[2022-07-01] MEDS: MULTIVITAMINS, THERA 1 EACH TAB PO SCH (08:45)
[2022-07-01 09:04] LABS: HCT 35.6 % (39.0-53.0); HGB 12.2 gm/dL (13.0-17.5); MCH 31.9 pg (25.0-35.0); MCHC 34.4 g/dL (31.0-37.0); MCV 92.7 fL (80.0-100.0); Mean Platelet Volume 9.6; Platelet Count 145 k/uL (150-450); RBC 3.84 m/uL (4.30-5.90); RDW 12.9 % (11.5-15.5); WBC 8.8 k/uL (3.8-10.6)
[2022-07-01 09:20] LABS: Calcium 8.5 mg/dL (8.4-10.2); Potassium 3.7 mmol/L (3.5-5.1)
--- NOTE | 2022-07-01 10:26 | P.PN ---
Subjective Progress Note Date: 06/30/22 This is an 86 year old female who follows with Dr. 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 Patient maintained on eliquis outpatient. Currently resides with his who is his primary caregiver. Patient presents to the hospital with concern for 3 days of black tarry stool from his ostomy. Denies nausea, denies hemetemesis. No chest pain, no shortness of breath. Prior to that his stools are loose to soft brown yellow in color. Follows with Dr. Dean outpatient Hemoglobin on admission stable at 13.8 and repeated 13.2. Labs are essentially unremarkable for glucose of 102 alk phos 135. Patient is admitted to the hospital for possible GI bleed and GI services consultation. We will hold eliquis pending work up. Patient is currently on room air, heart rate 58, sinus bradycardia, blood pressure 160/76. 06/27/2022 Patient is evaluated today resting in bed. No acute events overnight. No evidence for dark tarry stool from ostomy currently. Hemoglobin remains stable at 13.9. Patient was evaluated by surgery and recommending outpatient endoscopy. Patient was noted to have sinus sancho cardia into the 30s and EKG performed showing sinus bradycardia with first degree AV block and right bundle branch block. Cardiology consultation was requested for bradycardia and also for surgical clearance. He had echocardiogram completed showing EF 45 to 50% with severely increased septal wall thickness, moderate to severe mitral regurgitation mild to moderate aortic regurg and moderate sized pericardial effusion with diastolic collapse of the right atrium. Pending further recommendations from cardiology currently. 06/28/2022 Patient sitting up in chair continues on the medical floor with telemetry monitoring. Echocardiogram reviewed by cardiology and cardiothoracic services has been consulted and plan for tentative pericardial window with Dr. Israel. Eliquis remains on hold at this time. Patient continues to remain asymptomatic and also his dark tarry stools have resolved. Currently has brown semi formed stool from ostomy. General surgery following and patient will follow up for outpatient EGD. 06/29/2022 Patient is monitored today sitting up in chair on medical floor. He remains chest pain free, denies shortness of breath. He has brown semi-formed stool from ostomy no evidence for black tarry stool. Eliquis remains on hold and patient is scheduled to undergo pericardial window today with Dr. Israel. Labs today showing white count of 7.3, hgb remains stable at 13.3. Electrolytes are within normal limits BUN 20 creatinine 1.03. Afebrile, 96% on room air. Blood pressure today 141/70, heart rate 60. Patient will be monitored postoperatively in intensive care unit. 06/30/2022 Patient had pericardial window yesterday transferred to telemetry unit. Currently sitting in a chair. Awake and alert. Patient was also found have prolapsed colostomy over the left lower quadrant of abdomen. Otherwise patient denied any pain or tenderness. Patient has been afebrile. No cough or sputum production. No nausea vomiting. No stool noted in the ostomy bag. CT surgery and general surgery is on board. Laboratory data showed WBC 11.7 hemoglobin 12.8 and platelets 168 BUN 24 and creatinine 1.03 and sodium 136. Liver enzymes are not elevated. PHYSICAL EXAMINATION: GENERAL: The patient is alert and oriented x3, not in any acute distress. Well developed, well nourished. HEENT: Pupils are round and equally reacting to light. EOMI. No scleral icterus. No conjunctival pallor. Normocephalic, atraumatic. No pharyngeal erythema. No th yromegaly. CARDIOVASCULAR: S1 and S2 present. No murmurs, rubs, or gallops. PULMONARY: Chest is clear to auscultation, no wheezing or crackles. ABDOMEN: Soft, nontender, nondistended, normoactive bowel sounds. No palpable organomegaly. Left lower quadrant colostomy prolapse which is reducible. . Abdomen is soft and nontender. MUSCULOSKELETAL: No joint swelling or deformity. EXTREMITIES: No cyanosis, clubbing, or pedal edema. NEUROLOGICAL: Gross neurological examination did not reveal any focal deficits. 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 Left upper is 5/5. Speech is slow to respond. SKIN: No rashes. Assessment and Plan Assessment Black tarry stool from ostomy possible acute upper GI bleed, resolved. hemoglobin fairly stable 13.3--12.8. Sinus bradycardia with first degree AV block, known pauses and also SVT with known bradycardia recently underwent holter monitor outpatient Pericardial effusion with right atrial diastolic collapse . 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 Israel Recommend to hold eliquis at this time per surgery. We will resume once cleared by surgery. EGD can be done outpatient discussed with surgery Continue PO protonix . Monitor H&H. Continue with stool softeners as needed. Home and outpatient GI follow up Objective - Vital Signs Vital signs: Vital Signs Temp 98.3 F 06/30/22 16:00 Pulse 58 L 06/30/22 16:00 Resp 17 06/30/22 16:00 BP 100/50 06/30/22 16:00 Pulse Ox 95 06/30/22 16:00 FiO2 Intake & Output 06/30/22 06/30/22 07/01/22 06:59 18:59 05:59 Intake Total 354 Output Total 0 815 Balance 0 -461 Weight 64.864 kg Intake: Oral 354 Output: Chest Tube Drainage 0 15 Chest Tube Anterior Chest 0 15 Drainage 0 Anterior Medial Chest 0 Urine 800 Uretheral (Carranza) 300 Other: Voiding Method Toilet Toilet Diaper Diaper Incontinent Incontinent - Labs CBC & Chem 7: 07/01/22 08:45 07/01/22 08:45 Labs: Abnormal Lab Results - Last 24 Hours (Table) 06/29/22 06/30/22 06/30/22 Range/Units 20:07 08:50 11:51 WBC 11.7 H (3.8-10.6) k/uL RBC 4.05 L (4.30-5.90) m/uL Hgb 12.8 L (13.0-17.5) gm/dL Hct 37.6 L (39.0-53.0) % Neutrophils # 9.7 H (1.3-7.7) k/uL POC Glucose (mg/dL) 138 H 269 H (70-110) mg/dL
--- NOTE | 2022-07-01 11:46 | P.PN ---
Subjective Progress Note Date: 07/01/22 PROGRESS NOTE The patient is an 86-year-old male with known history of paroxysmal atrial ablation, pulmonary embolism, status post CVA who presented to the hospital with possible GI bleeding and was found to have significant pericardial effusion. Underwent placement of a pericardial to yesterday by Dr. Israel with a pericardial window. He's feeling well this morning. He denies any chest discomfort, dizziness or palpitations. He continues to be in sinus mechanism with no significant pauses. His echocardiogram showed an ejection fraction of 45-50% with moderate to severe mitral regurgitation. He has serosanguineous drainage. Culture and cytology are pending. July 01: His chest tube was removed. He is feeling well this morning. He denies any chest discomfort, dizziness or palpitations. He seems to be discouraged. He has no nausea or vomiting. His anticoagulation is on hold. Medications: Lasix 20 mg daily, Flomax, Aricept PHYSICAL EXAMINATION: Blood pressure 110/60 heart rate 70 LUNGS: Clear to auscultation HEART: Regular rate and rhythm, S1, S2. No S3. Holosystolic murmur at the apex ABDOMEN: Soft, nontender, no organomegaly colostomy noted EXTREMETIES: No edema LAB: Hemoglobin 12.2, BUN 39, creatinine 1.09 Pending IMPRESSION: 1. Pericardial effusion status post pericardial window 2. Paroxysmal atrial fibrillation, maintaining sinus mechanism with episodes of sinus bradycardia but no significant pauses. Anticoagulation on hold 3. GI bleed 4. Prior history of CVA PLAN: 1. Continue present therapy 2. Resume anticoagulation when acceptable by surgical team 3. Increase physical activity 4. Follow hemoglobin to restart anticoagulation Objective - Vital Signs Vital signs: Vital Signs Temp 97.6 F 07/01/22 11:41 Pulse 75 07/01/22 11:41 Resp 18 07/01/22 11:41 BP 110/67 07/01/22 11:41 Pulse Ox 97 07/01/22 11:41 FiO2 Intake & Output 06/30/22 07/01/22 07/01/22 19:59 06:59 18:59 Intake Total 240 Output Total Balance 240 Weight Intake: Oral 240 Output: Chest Tube Drainage Chest Tube Anterior Chest Urine Uretheral (Carranza) Other: Voiding Method Toilet Diaper Incontinent # Voids - Labs CBC & Chem 7: 07/01/22 08:45 07/01/22 08:45 Labs: Abnormal Lab Results - Last 24 Hours (Table) 06/30/22 06/30/22 07/01/22 Range/Units 08:50 08:50 08:45 WBC 11.7 H (3.8-10.6) k/uL RBC 4.05 L (4.30-5.90) m/uL Hgb 12.8 L (13.0-17.5) gm/dL Hct 37.6 L (39.0-53.0) % Plt Count (150-450) k/uL Neutrophils # 9.7 H (1.3-7.7) k/uL Sodium 136 L 134 L (137-145) mmol/L BUN 24 H 31 H (9-20) mg/dL Glucose 138 H 117 H (74-99) mg/dL Total Protein 6.1 L (6.3-8.2) g/dL 07/01/22 Range/Units 08:45 WBC (3.8-10.6) k/uL RBC 3.84 L (4.30-5.90) m/uL Hgb 12.2 L (13.0-17.5) gm/dL Hct 35.6 L (39.0-53.0) % Plt Count 145 L (150-450) k/uL Neutrophils # (1.3-7.7) k/uL Sodium (137-145) mmol/L BUN (9-20) mg/dL Glucose (74-99) mg/dL Total Protein (6.3-8.2) g/dL
[2022-07-01] MEDS: SENNOSIDES 8.6 MG TAB PO SCH (12:50)
[2022-07-01] MEDS ORDERED: DILTIAZEM DRIP BOLUS FROM BAG 1 MG SOLN IV ONE (18:47)
[2022-07-01] MEDS: DILTIAZEM 125 MG in SODIUM CHLORIDE 0.9% 100 ML IV SCH (21:14)
[2022-07-02] MEDS: PANTOPRAZOLE 40 MG TABLET PO SCH (06:48)
[2022-07-02] MEDS: DONEPEZIL 5 MG TAB PO SCH (08:40)
[2022-07-02] MEDS: MULTIVITAMINS, THERA 1 EACH TAB PO SCH (08:40)
[2022-07-02] MEDS: SENNOSIDES 8.6 MG TAB PO SCH (08:40)
[2022-07-02] MEDS: TAMSULOSIN 0.4 MG CAP.ER.24H PO SCH (08:40)
[2022-07-02] MEDS: FUROSEMIDE 20 MG TAB PO SCH (08:40)
[2022-07-02] MEDS: DILTIAZEM 125 MG in SODIUM CHLORIDE 0.9% 100 ML IV SCH (08:41)
[2022-07-02 09:09] LABS: HCT 35.6 % (39.0-53.0); HGB 11.8 gm/dL (13.0-17.5); MCH 31.3 pg (25.0-35.0); MCHC 33.3 g/dL (31.0-37.0); MCV 94.2 fL (80.0-100.0); Mean Platelet Volume 9.6; Platelet Count 145 k/uL (150-450); RBC 3.78 m/uL (4.30-5.90); RDW 13.2 % (11.5-15.5); WBC 9.7 k/uL (3.8-10.6)
[2022-07-02 09:24] LABS: Calcium 8.8 mg/dL (8.4-10.2)
[2022-07-02] MEDS ORDERED: AMIODARONE 360 MG in DEXTROSE 5% IN WATER 200 ML IV ONE ×2 (13:20)
[2022-07-02] MEDS ORDERED: DEXTROSE 5% IN WATER 100 ML with AMIODARONE 150 MG IV ONE (13:20)
--- NOTE | 2022-07-02 13:41 | P.PN ---
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 He follows in the office with Dr. Salmon. We have been asked to see in consultation for sinus bradycardia and clearance for an endoscopy. Patient presented emergency department 06/25/2022 secondary to 3 days of black tarry stools from his ostomy. General surgery has evaluated the patient and there was a plan for EGD with Dr. Dean but cancelled secondary to echo findings and bradycardia, possibly done as an outpatient. DIAGNOSTICS * Echocardiogram 09/2020 revealed EF of 47%, mild mitral regurgitation, moderate LVH, mild aortic regurgitation, diastolic dysfunction, mild pulmonary hypertension, mild tricuspid regurgitation, RVSP 45 mmHg * He underwent a 24 hour holter monitor in the office 02/21/2022, it revealed sinus bradycardia and occasional pauses predominantly at night with HR low 28. Maxi HR 100, with average HR 61. He had there was 118 episodes of pauses, with longest pause was 2.4 seconds. 34 episodes of NSVT, longest episode was 11 beats, maximum rate of NSVT was 132 bpm. Total of 10 PVCs. No episodes of high degree AV block, no symptoms reported by the patient, no malignant arrhythmias present, no atrial fibrillation present 06/27/2022 Echocardiogram this admission revealed an EF of 4550 %, moderate to severe mitral regurgitation, mild to moderate aortic regurgitation, moderate sized pericardial effusion with diastolic collapse of the right atrium, severely increased left atrial volume. He was evaluated by CT surgery and on 06/29/2022 underwent subxiphoid pericardial window and intraoperative transesophageal echocardiogram 07/02/2022 Patient seen and examined at bedside, up in the chair, no acute distress. Using incentive spirometry with 1.5L. No complaints. Telemetry reviewed, he went back into A. fib with RVR overnight. Currently heart rate in the [id number]. He's currently on IV Cardizem at 10mg/hr. PHYSICAL EXAMINATION Vitals reviewed CONSTITUTIONAL: No apparent distress. HEENT: Head is normocephalic. Neck Supple No JVD. CHEST EXAMINATION: Lungs are clear to auscultation. No chest wall tenderness is noted on palpation or with deep breathing. HEART EXAMINATION:Irregular, tachycardic rate and rhythm. S1, S2 heard. systolic murmur at apex, No gallops or rub. ABDOMEN: Soft, nontender. Positive bowel sounds. EXTREMITIES: 2+ peripheral pulses, no lower extremity edema and no calf tenderness. NEUROLOGIC EXAMINATION: Patient is awake, alert and oriented x3. ASSESSMENT Sinus bradycardia, predominantly at night, asymptomatic Moderate pericardial effusion and right atrial diastolic collapse s/p pericardial window on 06/29/2022 Moderate to severe mitral regurgitation Dark, tarry stools Paroxysmal atrial fibrillation with RVR s/p prior cardioversion in 2020 on Eliquis outpatient Mildly reduced ejection fraction 45-50%, likely non-ischemic History of pulmonary embolism Hyperlipidemia History of CVA in 195 with chronic right-sided weakness and speech difficulty Former smoker History of bowel resection with colostomy in 2020 secondary to fecal impaction with bowel perforation PLAN Spoke with Don from CT surgery ok to re-start Eliquis tomorrow 07/03/2022. Start IV amiodarone bolus and drip, discontinue IV Cardizem Continue cardiac telemetry Further recommendations based on clinical course Nurse practitioner note has been reviewed by physician. Signing provider agrees with the documented findings, assessment, and plan of care. Objective - Vital Signs Vital signs: Vital Signs Temp 98.6 F 07/02/22 03:38 Pulse 124 H 07/02/22 08:36 Resp 16 07/02/22 08:36 BP 95/62 07/02/22 08:36 Pulse Ox 97 07/02/22 08:36 FiO2 Intake & Output 07/01/22 07/02/22 07/02/22 18:59 06:59 18:59 Intake Total 570 640 232.5 Balance 570 640 232.5 Intake: Intake, IV Titration 100 114.5 Amount Diltiazem 125 mg In 100 114.5 Sodium Chloride 0.9% 100 ml @ 10 MG/HR 10 mls/hr IV .[id number] [facility] Rx#: [id number] Oral [id number] 118 Other: Voiding Method Toilet Toilet Diaper Diaper Incontinent Incontinent # Voids 1 # Bowel Movements 1 - Labs CBC & Chem 7: 07/02/22 08:36 07/02/22 08:36 Labs: Abnormal Lab Results - Last 24 Hours (Table) 07/01/22 07/02/22 Range/Units 08:45 08:36 RBC 3.78 L (4.30-5.90) m/uL Hgb 11.8 L (13.0-17.5) gm/dL Hct 35.6 L (39.0-53.0) % Plt Count 145 L (150-450) k/uL Sodium 134 L (137-145) mmol/L BUN 31 H (9-20) mg/dL Glucose 117 H (74-99) mg/dL
[2022-07-02] MEDS: AMIODARONE 450 MG in DEXTROSE 5% IN WATER 250 ML IV SCH ×2 (20:39)
[2022-07-03] MEDS: PANTOPRAZOLE 40 MG TABLET PO SCH (06:53)
[2022-07-03] MEDS: SENNOSIDES 8.6 MG TAB PO SCH (08:52)
[2022-07-03] MEDS: TAMSULOSIN 0.4 MG CAP.ER.24H PO SCH (08:52)
[2022-07-03] MEDS: APIXABAN 5 MG TAB PO SCH ×2 (08:52→20:28)
[2022-07-03] MEDS: MULTIVITAMINS, THERA 1 EACH TAB PO SCH (08:52)
[2022-07-03] MEDS: FUROSEMIDE 20 MG TAB PO SCH (08:53)
[2022-07-03] MEDS: DONEPEZIL 5 MG TAB PO SCH (08:53)
[2022-07-03] MEDS: AMIODARONE 450 MG in DEXTROSE 5% IN WATER 250 ML IV SCH ×2 (09:06)
[2022-07-03 11:50] LABS: Glucose,Whole Blood 120 mg/dL (70-110)
[2022-07-03] MEDS: AMIODARONE 200 MG TAB PO SCH ×2 (12:13→20:28)
--- NOTE | 2022-07-03 13:54 | P.PN ---
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 He follows in the office with Dr. Salmon. We have been asked to see in consultation for sinus bradycardia and clearance for an endoscopy. Patient presented emergency department 06/25/2022 secondary to 3 days of black tarry stools from his ostomy. General surgery has evaluated the patient and there was a plan for EGD with Dr. Dean but cancelled secondary to echo findings and bradycardia, possibly done as an outpatient. DIAGNOSTICS * Echocardiogram 09/2020 revealed EF of 47%, mild mitral regurgitation, moderate LVH, mild aortic regurgitation, diastolic dysfunction, mild pulmonary hypertension, mild tricuspid regurgitation, RVSP 45 mmHg * He underwent a 24 hour holter monitor in the office 02/21/2022, it revealed sinus bradycardia and occasional pauses predominantly at night with HR low 28. Maxi HR 100, with average HR 61. He had there was 118 episodes of pauses, with longest pause was 2.4 seconds. 34 episodes of NSVT, longest episode was 11 beats, maximum rate of NSVT was 132 bpm. Total of 10 PVCs. No episodes of high degree AV block, no symptoms reported by the patient, no malignant arrhythmias present, no atrial fibrillation present 06/27/2022 Echocardiogram this admission revealed an EF of 4550 %, moderate to severe mitral regurgitation, mild to moderate aortic regurgitation, moderate sized pericardial effusion with diastolic collapse of the right atrium, severely increased left atrial volume. He was evaluated by CT surgery and on 06/29/2022 underwent subxiphoid pericardial window and intraoperative transesophageal echocardiogram 07/03/2022 Patient seen and examined at bedside, up in the chair, no acute distress. Using incentive spirometry. No complaints. Telemetry reviewed, Continues to be in A fib but rates are better controlled 90s-low 100s. He's currently on IV amiodarone. PHYSICAL EXAMINATION Vitals reviewed CONSTITUTIONAL: No apparent distress. HEENT: Head is normocephalic. Neck Supple No JVD. CHEST EXAMINATION: Lungs are clear to auscultation. No chest wall tenderness is noted on palpation or with deep breathing. HEART EXAMINATION:Irregular, tachycardic rate and rhythm. S1, S2 heard. systolic murmur at apex, No gallops or rub. ABDOMEN: Soft, nontender. Positive bowel sounds. EXTREMITIES: 2+ peripheral pulses, no lower extremity edema and no calf tenderness. NEUROLOGIC EXAMINATION: Patient is awake, alert and oriented x3. ASSESSMENT Sinus bradycardia, predominantly at night, asymptomatic Moderate pericardial effusion and right atrial diastolic collapse s/p pericardial window on 06/29/2022 Moderate to severe mitral regurgitation Dark, tarry stools Paroxysmal atrial fibrillation with RVR s/p prior cardioversion in 2020 on Eliquis outpatient Mildly reduced ejection fraction 45-50%, likely non-ischemic History of pulmonary embolism Hyperlipidemia History of CVA in 195 with chronic right-sided weakness and speech difficulty Former smoker History of bowel resection with colostomy in 2020 secondary to fecal impaction with bowel perforation PLAN Restarting Eliquis today per CT surgery. Transition to PO amiodarone 400mg BID Continue cardiac telemetry Hopefully discharge tomorrow if heart rates stable Further recommendations based on clinical course Nurse practitioner note has been reviewed by physician. Signing provider agrees with the documented findings, assessment, and plan of care. Objective - Vital Signs Vital signs: Vital Signs Temp 98.1 F 07/03/22 12:00 Pulse 90 07/03/22 12:00 Resp 18 07/03/22 12:00 BP 104/52 07/03/22 12:00 Pulse Ox 98 07/03/22 12:00 FiO2 Intake & Output 07/02/22 07/03/22 07/03/22 18:59 06:59 18:59 Intake Total 586.5 207.504 Output Total 250 Balance 586.5 -42.496 Weight 64.864 kg Intake: Intake, IV Titration 114.5 207.504 Amount Amiodarone 450 mg In 207.504 Dextrose 5% in Water 250 ml @ 0.5 MG/MIN 16.667 mls/hr IV .Q15H [facility] Rx#: [id number] Diltiazem 125 mg In 114.5 Sodium Chloride 0.9% 100 ml @ 10 MG/HR 10 mls/hr IV .[id number] [facility] Rx#: [id number] Oral 472 Output: Stool 250 Other: Voiding Method Toilet Toilet Toilet Diaper Diaper Diaper Incontinent Incontinent Incontinent # Voids 2 1 # Bowel Movements 1 - Labs CBC & Chem 7: 07/02/22 08:36 07/02/22 08:36 Labs: Abnormal Lab Results - Last 24 Hours (Table) 07/03/22 Range/Units 11:48 POC Glucose (mg/dL) 120 H (70-110) mg/dL
--- NOTE | 2022-07-03 23:05 | P.PN ---
Subjective Progress Note Date: 07/01/22 This is an 86 year old female who follows with Dr. 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 Patient maintained on eliquis outpatient. Currently resides with his who is his primary caregiver. Patient presents to the hospital with concern for 3 days of black tarry stool from his ostomy. Denies nausea, denies hemetemesis. No chest pain, no shortness of breath. Prior to that his stools are loose to soft brown yellow in color. Follows with Dr. Dean outpatient Hemoglobin on admission stable at 13.8 and repeated 13.2. Labs are essentially unremarkable for glucose of 102 alk phos 135. Patient is admitted to the hospital for possible GI bleed and GI services consultation. We will hold eliquis pending work up. Patient is currently on room air, heart rate 58, sinus bradycardia, blood pressure 160/76. 06/27/2022 Patient is evaluated today resting in bed. No acute events overnight. No evidence for dark tarry stool from ostomy currently. Hemoglobin remains stable at 13.9. Patient was evaluated by surgery and recommending outpatient endoscopy. Patient was noted to have sinus sancho cardia into the 30s and EKG performed showing sinus bradycardia with first degree AV block and right bundle branch block. Cardiology consultation was requested for bradycardia and also for surgical clearance. He had echocardiogram completed showing EF 45 to 50% with severely increased septal wall thickness, moderate to severe mitral regurgitation mild to moderate aortic regurg and moderate sized pericardial effusion with diastolic collapse of the right atrium. Pending further recommendations from cardiology currently. 06/28/2022 Patient sitting up in chair continues on the medical floor with telemetry monitoring. Echocardiogram reviewed by cardiology and cardiothoracic services has been consulted and plan for tentative pericardial window with Dr. Israel. Eliquis remains on hold at this time. Patient continues to remain asymptomatic and also his dark tarry stools have resolved. Currently has brown semi formed stool from ostomy. General surgery following and patient will follow up for outpatient EGD. 06/29/2022 Patient is monitored today sitting up in chair on medical floor. He remains chest pain free, denies shortness of breath. He has brown semi-formed stool from ostomy no evidence for black tarry stool. Eliquis remains on hold and patient is scheduled to undergo pericardial window today with Dr. Israel. Labs today showing white count of 7.3, hgb remains stable at 13.3. Electrolytes are within normal limits BUN 20 creatinine 1.03. Afebrile, 96% on room air. Blood pressure today 141/70, heart rate 60. Patient will be monitored postoperatively in intensive care unit. 06/30/2022 Patient had pericardial window yesterday transferred to telemetry unit. Currently sitting in a chair. Awake and alert. Patient was also found have prolapsed colostomy over the left lower quadrant of abdomen. Otherwise patient denied any pain or tenderness. Patient has been afebrile. No cough or sputum production. No nausea vomiting. No stool noted in the ostomy bag. CT surgery and general surgery is on board. Laboratory data showed WBC 11.7 hemoglobin 12.8 and platelets 168 BUN 24 and creatinine 1.03 and sodium 136. Liver enzymes are not elevated. 07/01/2022 Patient is currently sitting in the chair comfortably. Denies any complaints of chest pain or worsening shortness of breath. Awake alert and mental status is at baseline. No complaints of nausea or vomiting. Chest tube has been removed. Anticoagulation is on hold due to GI bleed. Patient did not have any bowel movement yet. General surgery and cardiology is on board. PHYSICAL EXAMINATION: GENERAL: The patient is alert and oriented x3, not in any acute distress. Well developed, well nourished. HEENT: Pupils are round and equally reacting to light. EOMI. No scleral icterus. No conjunctival pallor. Normocephalic, atraumatic. No pharyngeal erythema. No thyromegaly. CARDIOVASCULAR: S1 and S2 present. No murmurs, rubs, or gallops. PULMONARY: Chest is clear to auscultation, no wheezing or crackles. ABDOMEN: Soft, nontender, nondistended, normoactive bowel sounds. No palpable organomegaly. Left lower quadrant colostomy prolapse which is reducible. . Abdomen is soft and nontender. MUSCULOSKELETAL: No joint swelling or deformity. EXTREMITIES: No cyanosis, clubbing, or pedal edema. NEUROLOGICAL: Gross neurological examination did not reveal any focal deficits. 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 Left upper is 5/5. Speech is slow to respond. SKIN: No rashes. Assessment and Plan Assessment Black tarry stool from ostomy possible acute upper GI bleed, resolved. hemoglobin fairly stable 13.3--12.8. Sinus bradycardia with first degree AV block, known pauses and also SVT with known bradycardia recently underwent holter monitor outpatient Pericardial effusion with right atrial diastolic collapse . 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 Israel Recommend to hold eliquis at this time per surgery. We will resume once cleared by surgery. EGD can be done outpatient discussed with surgery Continue PO protonix . Monitor H&H. Continue with stool softeners as needed. Home and outpatient GI follow up Objective - Vital Signs Vital signs: Vital Signs Temp 97.9 F 07/01/22 16:00 Pulse 70 07/01/22 16:00 Resp 17 07/01/22 16:00 BP 107/65 07/01/22 16:00 Pulse Ox 98 07/01/22 16:00 FiO2 Intake & Output 06/30/22 07/01/22 07/01/22 19:59 06:59 18:59 Intake Total 570 Output Total Balance 570 Weight Intake: Oral 570 Output: Chest Tube Drainage Chest Tube Anterior Chest Urine Uretheral ([place]) Other: Voiding Method Toilet Diaper Incontinent # Voids - Labs CBC & Chem 7: 07/02/22 08:36 07/02/22 08:36 Labs: Abnormal Lab Results - Last 24 Hours (Table) 06/30/22 07/01/22 07/01/22 Range/Units 08:50 08:45 08:45 RBC 3.84 L (4.30-5.90) m/uL Hgb 12.2 L (13.0-17.5) gm/dL Hct 35.6 L (39.0-53.0) % Plt Count 145 L (150-450) k/uL Sodium 136 L 134 L (137-145) mmol/L BUN 24 H 31 H (9-20) mg/dL Glucose 138 H 117 H (74-99) mg/dL Total Protein 6.1 L (6.3-8.2) g/dL
--- NOTE | 2022-07-03 23:08 | P.PN ---
Subjective Progress Note Date: 07/02/22 This is an 86 year old female who follows with Dr. 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 Patient maintained on eliquis outpatient. Currently resides with his who is his primary caregiver. Patient presents to the hospital with concern for 3 days of black tarry stool from his ostomy. Denies nausea, denies hemetemesis. No chest pain, no shortness of breath. Prior to that his stools are loose to soft brown yellow in color. Follows with Dr. Dean outpatient Hemoglobin on admission stable at 13.8 and repeated 13.2. Labs are essentially unremarkable for glucose of 102 alk phos 135. Patient is admitted to the hospital for possible GI bleed and GI services consultation. We will hold eliquis pending work up. Patient is currently on room air, heart rate 58, sinus bradycardia, blood pressure 160/76. 06/27/2022 Patient is evaluated today resting in bed. No acute events overnight. No evidence for dark tarry stool from ostomy currently. Hemoglobin remains stable at 13.9. Patient was evaluated by surgery and recommending outpatient endoscopy. Patient was noted to have sinus sancho cardia into the 30s and EKG performed showing sinus bradycardia with first degree AV block and right bundle branch block. Cardiology consultation was requested for bradycardia and also for surgical clearance. He had echocardiogram completed showing EF 45 to 50% with severely increased septal wall thickness, moderate to severe mitral regurgitation mild to moderate aortic regurg and moderate sized pericardial effusion with diastolic collapse of the right atrium. Pending further recommendations from cardiology currently. 06/28/2022 Patient sitting up in chair continues on the medical floor with telemetry monitoring. Echocardiogram reviewed by cardiology and cardiothoracic services has been consulted and plan for tentative pericardial window with Dr. Israle. Eliquis remains on hold at this time. Patient continues to remain asymptomatic and also his dark tarry stools have resolved. Currently has brown semi formed stool from ostomy. General surgery following and patient will follow up for outpatient EGD. 06/29/2022 Patient is monitored today sitting up in chair on medical floor. He remains chest pain free, denies shortness of breath. He has brown semi-formed stool from ostomy no evidence for black tarry stool. Eliquis remains on hold and patient is scheduled to undergo pericardial window today with Dr. Israel. Labs today showing white count of 7.3, hgb remains stable at 13.3. Electrolytes are within normal limits BUN 20 creatinine 1.03. Afebrile, 96% on room air. Blood pressure today 141/70, heart rate 60. Patient will be monitored postoperatively in intensive care unit. 06/30/2022 Patient had pericardial window yesterday transferred to telemetry unit. Currently sitting in a chair. Awake and alert. Patient was also found have prolapsed colostomy over the left lower quadrant of abdomen. Otherwise patient denied any pain or tenderness. Patient has been afebrile. No cough or sputum production. No nausea vomiting. No stool noted in the ostomy bag. CT surgery and general surgery is on board. Laboratory data showed WBC 11.7 hemoglobin 12.8 and platelets 168 BUN 24 and creatinine 1.03 and sodium 136. Liver enzymes are not elevated. 07/01/2022 Patient is currently sitting in the chair comfortably. Denies any complaints of chest pain or worsening shortness of breath. Awake alert and mental status is at baseline. No complaints of nausea or vomiting. Chest tube has been removed. Anticoagulation is on hold due to GI bleed. Patient did not have any bowel movement yet. General surgery and cardiology is on board. 07/02/2022 Patient is currently sitting in a chair. Awake alert and oriented x3. No complaints of chest pain or worsening shortness of breath. Participating in physical therapy. On room air. No nausea vomiting abdominal pain or diarrhea. Patient did have bowel movement in ostomy bag. No evidence of bleeding noted. Patient went back to [facility] with [facility] overnight. Was started on Cardizem drip and heart rate is improving. Patient was given IV amiodarone bolus and continued on drip. Cardizem has been discontinued by cardiology. Laboratory data showed WBC 9.7 hemoglobin 11.8 and platelets 145 Sodium 137 potassium 4.0 chloride 105 bicarb is 25 BUN 27 creatinine 1.11 and blood sugar is 143. PHYSICAL EXAMINATION: GENERAL: The patient is alert and oriented x3, not in any acute distress. Well developed, well nourished. HEENT: Pupils are round and equally reacting to light. EOMI. No scleral icterus. No conjunctival pallor. Normocephalic, atraumatic. No pharyngeal erythema. No thyromegaly. CARDIOVASCULAR: S1 and S2 present. No murmurs, rubs, or gallops. PULMONARY: Chest is clear to auscultation, no wheezing or crackles. ABDOMEN: Soft, nontender, nondistended, normoactive bowel sounds. No palpable organomegaly. Left lower quadrant colostomy prolapse which is reducible. . Abdomen is soft and nontender. MUSCULOSKELETAL: No joint swelling or deformity. EXTREMITIES: No cyanosis, clubbing, or pedal edema. NEUROLOGICAL: Gross neurological examination did not reveal any focal deficits. 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 Left upper is 5/5. Speech is slow to respond. SKIN: No rashes. Assessment and Plan Assessment Black tarry stool from ostomy possible acute upper GI bleed, resolved. hemoglobin fairly stable 13.3--12.8. Sinus bradycardia with first degree AV block, known pauses and also SVT with known bradycardia recently underwent holter monitor outpatient Pericardial effusion with right atrial diastolic collapse . 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 Israel Recommend to hold eliquis at this time per surgery. We will resume once cleared by surgery. EGD can be done outpatient discussed with surgery Continue PO protonix . Monitor H&H. Continue with stool softeners as needed. Home and outpatient GI follow up Objective - Vital Signs Vital signs: Vital Signs Temp 98.2 F 07/02/22 16:08 Pulse 138 H 07/02/22 16:08 Resp 18 07/02/22 15:06 BP 95/58 07/02/22 15:06 Pulse Ox 95 07/02/22 15:06 FiO2 Intake & Output 07/02/22 07/02/22 07/03/22 06:59 18:59 06:59 Intake Total 640 586.5 Balance 640 586.5 Intake: Intake, IV Titration 100 114.5 Amount Diltiazem 125 mg In 100 114.5 Sodium Chloride 0.9% 100 ml @ 10 MG/HR 10 mls/hr IV .[id number] [facility] Rx#: [id number] Oral 540 472 Other: Voiding Method Toilet Toilet Diaper Diaper Incontinent Incontinent # Voids 1 2 # Bowel Movements 1 - Labs CBC & Chem 7: 07/02/22 08:36 07/02/22 08:36 Labs: Abnormal Lab Results - Last 24 Hours (Table) 07/02/22 07/02/22 Range/Units 08:36 08:36 RBC 3.78 L (4.30-5.90) m/uL Hgb 11.8 L (13.0-17.5) gm/dL Hct 35.6 L (39.0-53.0) % Plt Count 145 L (150-450) k/uL BUN 27 H (9-20) mg/dL Glucose 143 H (74-99) mg/dL
--- NOTE | 2022-07-03 23:11 | P.PN ---
Subjective Progress Note Date: 07/03/22 This is an 86 year old female who follows with Dr. 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 Patient maintained on eliquis outpatient. Currently resides with his who is his primary caregiver. Patient presents to the hospital with concern for 3 days of black tarry stool from his ostomy. Denies nausea, denies hemetemesis. No chest pain, no shortness of breath. Prior to that his stools are loose to soft brown yellow in color. Follows with Dr. Dean outpatient Hemoglobin on admission stable at 13.8 and repeated 13.2. Labs are essentially unremarkable for glucose of 102 alk phos 135. Patient is admitted to the hospital for possible GI bleed and GI services consultation. We will hold eliquis pending work up. Patient is currently on room air, heart rate 58, sinus bradycardia, blood pressure 160/76. 06/27/2022 Patient is evaluated today resting in bed. No acute events overnight. No evidence for dark tarry stool from ostomy currently. Hemoglobin remains stable at 13.9. Patient was evaluated by surgery and recommending outpatient endoscopy. Patient was noted to have sinus sancho cardia into the 30s and EKG performed showing sinus bradycardia with first degree AV block and right bundle branch block. Cardiology consultation was requested for bradycardia and also for surgical clearance. He had echocardiogram completed showing EF 45 to 50% with severely increased septal wall thickness, moderate to severe mitral regurgitation mild to moderate aortic regurg and moderate sized pericardial effusion with diastolic collapse of the right atrium. Pending further recommendations from cardiology currently. 06/28/2022 Patient sitting up in chair continues on the medical floor with telemetry monitoring. Echocardiogram reviewed by cardiology and cardiothoracic services has been consulted and plan for tentative pericardial window with Dr. Israel. Eliquis remains on hold at this time. Patient continues to remain asymptomatic and also his dark tarry stools have resolved. Currently has brown semi formed stool from ostomy. General surgery following and patient will follow up for outpatient EGD. 06/29/2022 Patient is monitored today sitting up in chair on medical floor. He remains chest pain free, denies shortness of breath. He has brown semi-formed stool from ostomy no evidence for black tarry stool. Eliquis remains on hold and patient is scheduled to undergo pericardial window today with Dr. Israel. Labs today showing white count of 7.3, hgb remains stable at 13.3. Electrolytes are within normal limits BUN 20 creatinine 1.03. Afebrile, 96% on room air. Blood pressure today 141/70, heart rate 60. Patient will be monitored postoperatively in intensive care unit. 06/30/2022 Patient had pericardial window yesterday transferred to telemetry unit. Currently sitting in a chair. Awake and alert. Patient was also found have prolapsed colostomy over the left lower quadrant of abdomen. Otherwise patient denied any pain or tenderness. Patient has been afebrile. No cough or sputum production. No nausea vomiting. No stool noted in the ostomy bag. CT surgery and general surgery is on board. Laboratory data showed WBC 11.7 hemoglobin 12.8 and platelets 168 BUN 24 and creatinine 1.03 and sodium 136. Liver enzymes are not elevated. 07/01/2022 Patient is currently sitting in the chair comfortably. Denies any complaints of chest pain or worsening shortness of breath. Awake alert and mental status is at baseline. No complaints of nausea or vomiting. Chest tube has been removed. Anticoagulation is on hold due to GI bleed. Patient did not have any bowel movement yet. General surgery and cardiology is on board. 07/02/2022 Patient is currently sitting in a chair. Awake alert and oriented x3. No complaints of chest pain or worsening shortness of breath. Participating in physical therapy. On room air. No nausea vomiting abdominal pain or diarrhea. Patient did have bowel movement in ostomy bag. No evidence of bleeding noted. Patient went back to [facility] with [facility] overnight. Was started on Cardizem drip and heart rate is improving. Patient was given IV amiodarone bolus and continued on drip. Cardizem has been discontinued by cardiology. Laboratory data showed WBC 9.7 hemoglobin 11.8 and platelets 145 Sodium 137 potassium 4.0 chloride 105 bicarb is 25 BUN 27 creatinine 1.11 and blood sugar is 143. 07/03/2022 Patient is currently sitting in a chair comfortably. No complaints of chest pain or shortness of breath. No nausea vomiting abdominal pain or diarrhea. Patient did have stool in the ostomy bag. Hemoglobin is fairly stable. Pelvis patient continues to be in atrial fibrillation but rate is controlled. Was on IV amiodarone changed to p.o. Restart Eliquis once cleared by CT surgery. Continue on telemetry monitoring. No fever no chills. No cough or sputum production. No headache or dizziness or lightheadedness. Cardiology and CT surgery and general surgery is on board. PHYSICAL EXAMINATION: GENERAL: The patient is alert and oriented x3, not in any acute distress. Well developed, well nourished. HEENT: Pupils are round and equally reacting to light. EOMI. No scleral icterus. No conjunctival pallor. Normocephalic, atraumatic. No pharyngeal erythema. No thyromegaly. CARDIOVASCULAR: S1 and S2 present. No murmurs, rubs, or gallops. PULMONARY: Chest is clear to auscultation, no wheezing or crackles. ABDOMEN: Soft, nontender, nondistended, normoactive bowel sounds. No palpable organomegaly. Left lower quadrant colostomy prolapse which is reducible. . Abdomen is soft and nontender. MUSCULOSKELETAL: No joint swelling or deformity. EXTREMITIES: No cyanosis, clubbing, or pedal edema. NEUROLOGICAL: Gross neurological examination did not reveal any focal deficits. 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 Left upper is 5/5. Speech is slow to respond. SKIN: No rashes. Assessment and Plan Assessment Black tarry stool from ostomy possible acute upper GI bleed, resolved. hemoglobin fairly stable 13.3--12.8. Sinus bradycardia with first degree AV block, known pauses and also SVT with known bradycardia recently underwent holter monitor outpatient Pericardial effusion with right atrial diastolic collapse . 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 Jhonatan Woodson restarted once cleared by CT surgery. IV hematoma changed to p.o. Continue with telemetry monitoring. Cardiology is on board. EGD can be done outpatient discussed with surgery Continue PO protonix . Monitor H&H. Continue with stool softeners as needed. Home and outpatient GI follow up Objective - Vital Signs Vital signs: Vital Signs Temp 98.1 F 07/03/22 12:00 Pulse 101 H 07/03/22 16:00 Resp 18 07/03/22 16:00 BP 126/61 07/03/22 16:00 Pulse Ox 99 07/03/22 16:00 FiO2 Intake & Output 07/03/22 07/03/22 07/04/22 06:59 18:59 06:59 Intake Total 443.504 Output Total 800 Balance -356.496 Weight 64.864 kg Intake: Intake, IV Titration 207.504 Amount Amiodarone 450 mg In 207.504 Dextrose 5% in Water 250 ml @ 0.5 MG/MIN 16.667 mls/hr IV .Q15H [facility] Rx#: [id number] Oral 236 Output: Stool 800 Other: Voiding Method Toilet Toilet Diaper Diaper Incontinent Incontinent # Voids 1 # Bowel Movements 1 - Labs CBC & Chem 7: 07/02/22 08:36 07/02/22 08:36 Labs: Abnormal Lab Results - Last 24 Hours (Table) 07/03/22 Range/Units 11:48 POC Glucose (mg/dL) 120 H (70-110) mg/dL
[2022-07-04] MEDS: PANTOPRAZOLE 40 MG TABLET PO SCH (06:47)
[2022-07-04] MEDS: TAMSULOSIN 0.4 MG CAP.ER.24H PO SCH (08:25)
[2022-07-04] MEDS: AMIODARONE 200 MG TAB PO SCH (08:25)
[2022-07-04] MEDS: MULTIVITAMINS, THERA 1 EACH TAB PO SCH (08:26)
[2022-07-04] MEDS: DONEPEZIL 5 MG TAB PO SCH (08:26)
[2022-07-04] MEDS: APIXABAN 5 MG TAB PO SCH (08:26)
[2022-07-04] MEDS: FUROSEMIDE 20 MG TAB PO SCH (08:26)
[2022-07-04] MEDS: SENNOSIDES 8.6 MG TAB PO SCH (08:26)
[2022-07-04 08:30] VITALS: RESP 17
[2022-07-04 08:33] LABS: Basophils % (A) 0 %; Eosinophils # (A) 0.3 k/uL (0-0.7); Eosinophils % (A) 3 %; HCT 35.8 % (39.0-53.0); HGB 11.4 gm/dL (13.0-17.5); Lymphocytes # (A) 1.5 k/uL (1.0-4.8); Lymphocytes % (A) 19 %; MCH 29.8 pg (25.0-35.0); MCHC 31.9 g/dL (31.0-37.0); MCV 93.4 fL (80.0-100.0); Mean Platelet Volume 9.7; Monocytes # (A) 0.5 k/uL (0-1.0); Monocytes % (A) 6 %; Neutrophils # (A) 5.2 k/uL (1.3-7.7); Neutrophils % (A) 68 %; Platelet Count 167 k/uL (150-450); RBC 3.83 m/uL (4.30-5.90); WBC 7.6 k/uL (3.8-10.6)
[2022-07-04 08:38] LABS: Calcium 8.6 mg/dL (8.4-10.2); Potassium 4.2 mmol/L (3.5-5.1)
--- NOTE | 2022-07-04 10:02 | P.PN ---
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 He follows in the office with Dr. Salmon. We have been asked to see in consultation for sinus bradycardia and clearance for an endoscopy. Patient presented emergency department 06/25/2022 secondary to 3 days of black tarry stools from his ostomy. General surgery has evaluated the patient and there was a plan for EGD with Dr. Dean but cancelled secondary to echo findings and bradycardia, possibly done as an outpatient. DIAGNOSTICS * Echocardiogram 09/2020 revealed EF of 47%, mild mitral regurgitation, moderate LVH, mild aortic regurgitation, diastolic dysfunction, mild pulmonary hypertension, mild tricuspid regurgitation, RVSP 45 mmHg * He underwent a 24 hour holter monitor in the office 02/21/2022, it revealed sinus bradycardia and occasional pauses predominantly at night with HR low 28. Maxi HR 100, with average HR 61. He had there was 118 episodes of pauses, with longest pause was 2.4 seconds. 34 episodes of NSVT, longest episode was 11 beats, maximum rate of NSVT was 132 bpm. Total of 10 PVCs. No episodes of high degree AV block, no symptoms reported by the patient, no malignant arrhythmias present, no atrial fibrillation present 06/27/2022 Echocardiogram this admission revealed an EF of 4550 %, moderate to severe mitral regurgitation, mild to moderate aortic regurgitation, moderate sized pericardial effusion with diastolic collapse of the right atrium, severely increased left atrial volume. He was evaluated by CT surgery and on 06/29/2022 underwent subxiphoid pericardial window and intraoperative transesophageal echocardiogram 07/04/2022 Patient seen and examined at bedside, up in the chair, no acute distress. Using incentive spirometry. No complaints. Telemetry reviewed, Continues to be in A fib but rates are better controlled 70s-80s. He has been transitioned to 400mg amiodarone BID. PHYSICAL EXAMINATION Vitals reviewed CONSTITUTIONAL: No apparent distress. HEENT: Head is normocephalic. Neck Supple No JVD. CHEST EXAMINATION: Lungs are clear to auscultation. No chest wall tenderness is noted on palpation or with deep breathing. HEART EXAMINATION:Irregular, tachycardic rate and rhythm. S1, S2 heard. systolic murmur at apex, No gallops or rub. ABDOMEN: Soft, nontender. Positive bowel sounds. EXTREMITIES: 2+ peripheral pulses, no lower extremity edema and no calf tenderness. NEUROLOGIC EXAMINATION: Patient is awake, alert and oriented x3. ASSESSMENT Sinus bradycardia, predominantly at night, asymptomatic Moderate pericardial effusion and right atrial diastolic collapse s/p pericardial window on 06/29/2022 Moderate to severe mitral regurgitation Dark, tarry stools Paroxysmal atrial fibrillation with RVR s/p prior cardioversion in 2020 on Eliquis outpatient Mildly reduced ejection fraction 45-50%, likely non-ischemic History of pulmonary embolism Hyperlipidemia History of CVA in 1955 with chronic right-sided weakness and speech difficulty Former smoker History of bowel resection with colostomy in 2020 secondary to fecal impaction with bowel perforation PLAN Eliquis restarted per CT surgery and patient tolerating Continue PO amiodarone 400mg BID for 5 more days, and taper as outpatient Continue cardiac telemetry Patient is stable from a cardiology perspective for discharge We will follow the patient as needed Follow up outpatient with Dr. Salmon Nurse practitioner note has been reviewed by physician. Signing provider agrees with the documented findings, assessment, and plan of care. Objective - Vital Signs Vital signs: Vital Signs Temp 98.3 F 07/04/22 08:27 Pulse 77 07/04/22 08:27 Resp 17 07/04/22 08:27 BP 118/55 07/04/22 08:27 Pulse Ox 93 L 07/04/22 08:27 FiO2 Intake & Output 07/03/22 07/04/22 07/04/22 18:59 06:59 18:59 Intake Total 443.504 Output Total 800 Balance -356.496 Weight 64.864 kg Intake: Intake, IV Titration 207.504 Amount Amiodarone 450 mg In 207.504 Dextrose 5% in Water 250 ml @ 0.5 MG/MIN 16.667 mls/hr IV .Q15H KATHLEEN Rx#: [id number] Oral 236 Output: Stool 800 Other: Voiding Method Toilet Toilet Toilet Diaper Diaper Diaper Incontinent Incontinent Incontinent # Voids 1 - Labs CBC & Chem 7: 07/04/22 07:50 07/04/22 07:50 Labs: Abnormal Lab Results - Last 24 Hours (Table) 07/03/22 07/04/22 07/04/22 Range/Units 11:48 07:50 07:50 RBC 3.83 L (4.30-5.90) m/uL Hgb 11.4 L (13.0-17.5) gm/dL Hct 35.8 L (39.0-53.0) % Sodium 136 L (137-145) mmol/L BUN 29 H (9-20) mg/dL POC Glucose (mg/dL) 120 H (70-110) mg/dL
[2022-07-04 11:52] VITALS: BP 105/54; PULSE 79; TEMP 98.4
== END 2022-07-04 14:59 | disposition home health service (06) | DRG 271 ==
LOC: EC 15:34 → 6NMEDSUR 20:48 → 5NMEDONC 06-26 04:17 → OBSVTOIN 06-28 09:46 → 2SICU 06-29 14:56 → 3SCARD 06-29 15:28
PROVIDERS: ADMIT Internal Medicine; ATTEND Internal Medicine
PROC: 0W9D0ZZ Drainage of Pericardial Cavity, Open Approach (ICD-10-PCS; principal; 2022-06-28)
PROC: B24CZZ4 Ultrasonography of Pericardium, Transesophageal (ICD-10-PCS; principal; 2022-06-28)
DX: I31.39 Other pericardial effusion (noninflammatory) (principal); E46 Unspecified protein-calorie malnutrition; I47.20 Ventricular tachycardia, unspecified; I69.351 Hemiplegia and hemiparesis following cerebral infarction affecting right dominant side; K92.2 Gastrointestinal hemorrhage, unspecified; K94.09 Other complications of colostomy; I27.20 Pulmonary hypertension, unspecified; I08.3 Combined rheumatic disorders of mitral, aortic and tricuspid valves; I44.0 Atrioventricular block, first degree; E78.5 Hyperlipidemia, unspecified; I10 Essential (primary) hypertension; I45.10 Unspecified right bundle-branch block; I48.0 Paroxysmal atrial fibrillation; N40.1 Benign prostatic hyperplasia with lower urinary tract symptoms; L89.892 Pressure ulcer of other site, stage 2; R33.8 Other retention of urine; Z79.01 Long term (current) use of anticoagulants; Z79.899 Other long term (current) drug therapy; Z82.0 Family history of epilepsy and other diseases of the nervous system; Z86.711 Personal history of pulmonary embolism; Z87.19 Personal history of other diseases of the digestive system; Z87.891 Personal history of nicotine dependence; Z90.49 Acquired absence of other specified parts of digestive tract; Z98.1 Arthrodesis status; Z86.010 Personal history of colon polyps; Z68.20 Body mass index [BMI] 20.0-20.9, adult; Z88.0 Allergy status to penicillin; Z28.311 Partially vaccinated for COVID-19; Z28.21 Immunization not carried out because of patient refusal; Z71.3 Dietary counseling and surveillance
CPT/HCPCS: 36415; 71045; 80048; 80053; 82272; 83735; 85025; 85027; 85610; 85730; 86850; 86900; 86901; 88108; 88305; 93005; 93306; 99285

== ENCOUNTER → 2022-08-01 | Outpatient (CLI) | payer MEDICARE ==
[2022-08-01 18:45] LABS: Basophils # (A) 0.01 X 10*3/uL (0.00-0.10); Basophils % (A) 0.1 %; Eosinophils # (A) 0 X 10*3/uL (0.04-0.35); Eosinophils % (A) 0 %; HCT 36.3 % (39.6-50.0); HGB 11.7 g/dL (13.0-17.0); Immature Grans, Automated 0.4 %; Lymphocytes # (A) 1.14 X 10*3/uL (0.90-5.00); Lymphocytes % (A) 16.2 %; MCH 30.4 pg (27.0-32.0); MCHC 32.2 g/dL (32.0-37.0); MCV 94.3 fL (80.0-97.0); Monocytes # (A) 0.62 X 10*3/uL (0.20-1.00); Monocytes % (A) 8.8 %; NRBC Per 100 WBC 0 /100 WBCS (0.0-0.0); Neutrophils # (A) 5.22 X 10*3/uL (1.80-7.70); Neutrophils % (A) 74.5 %; Platelet Count 169 X 10*3/uL (140-440); RBC 3.85 X 10*6/uL (4.40-5.60); RDW 13.5 % (11.5-14.5); WBC 7.02 X 10*3/uL (4.50-10.00)
[2022-08-01 19:24] LABS: ALT 19 U/L (10-49); AST 29 U/L (14-35); African American GFR (CKD) 52.4 (60.0-200.0); Albumin 3.9 g/dL (3.8-4.9); Albumin/Globulin Ratio 1.44 (1.60-3.17); Alkaline Phosphatase 128 U/L (41-126); Blood Urea Nitrogen 25.9 mg/dL (9.0-27.0); Carbon Dioxide 27.2 mmol/L (20.0-27.5); Chloride 97 mmol/L (96-109); Globulin 2.7 g/dL (1.6-3.3); Glucose 77 mg/dL (70-110); Non-African American GFR(CKD) 45.2 (60.0-200.0); Potassium 3.6 mmol/L (3.5-5.5); Sodium 137 mmol/L (135-145); Total Protein 6.6 g/dL (6.2-8.2)
== END | disposition home or self-care (01) ==
LOC: LABWHC1 12:57
PROVIDERS: ATTEND Internal Medicine Interventional Cardiology
DX: I48.0 Paroxysmal atrial fibrillation (principal); D64.9 Anemia, unspecified
CPT/HCPCS: 36415; 80053; 84443; 85025

== ENCOUNTER 2022-10-28 00:59 | Inpatient (IN) | payer MEDICARE ==
[2022-10-28 02:01] LABS: Basophils % (A) 0 %; Eosinophils # (A) 0.2 k/uL (0-0.7); Eosinophils % (A) 1 %; HCT 34.6 % (39.0-53.0); HGB 10.6 gm/dL (13.0-17.5); Lymphocytes # (A) 1.2 k/uL (1.0-4.8); Lymphocytes % (A) 8 %; MCH 28.7 pg (25.0-35.0); MCHC 30.5 g/dL (31.0-37.0); Mean Platelet Volume 9.1; Monocytes # (A) 0.8 k/uL (0-1.0); Monocytes % (A) 5 %; Neutrophils # (A) 12.7 k/uL (1.3-7.7); Neutrophils % (A) 85 %; Platelet Count 325 k/uL (150-450); RBC 3.68 m/uL (4.30-5.90); RDW 15.2 % (11.5-15.5); WBC 15.1 k/uL (3.8-10.6)
[2022-10-28 02:03] LABS: Albumin 2.9 g/dL (3.5-5.0); Calcium 8.3 mg/dL (8.4-10.2); Total Bilirubin 0.7 mg/dL (0.2-1.3); Total Protein 6.4 g/dL (6.3-8.2)
[2022-10-28] MEDS ORDERED: DILTIAZEM DRIP BOLUS FROM BAG 1 MG SOLN IV ONE (02:05)
[2022-10-28 02:06] LABS: INR 1.1 (<1.2); Partial Thromboplastin Time 27.8 sec (22.0-30.0); Prothrombin Time 11.5 sec (9.0-12.0)
[2022-10-28] MEDS ORDERED: DILTIAZEM 125 MG in SODIUM CHLORIDE 0.9% 100 ML IV SCH (02:15)
--- NOTE | 2022-10-28 02:58 | XR ---
EXAMINATION TYPE: XR chest 1V portable DATE OF EXAM: 10/28/2022 COMPARISON: 10/22/2022 HISTORY: Cough TECHNIQUE: Single view FINDINGS: Heart is enlarged. There is some pulmonary vascular congestion. There is pulmonary intersti tial edema. There are chest leads. There is blunting of the costophrenic angles. IMPRESSION: Congestive heart failure with pleural effusions. No significant change.
[2022-10-28] MEDS ORDERED: AMIODARONE 360 MG in DEXTROSE 5% IN WATER 200 ML IV ONE ×2 (03:00)
--- NOTE | 2022-10-28 04:56 | ED ---
General Adult HPI - General Chief complaint: Upper Respiratory Infection Stated complaint: CHF Time Seen by Provider: 10/28/22 01:16 Source: patient Mode of arrival: EMS Limitations: physical limitation - History of Present Illness Initial comments: 's patient is an 87-year-old man sent here to have evaluation for a constellation of symptoms that are been coming on over the past hours today. There has been cough with some whitish sputum. Patient also has had some leg swelling. There was concerned about possibility of congestive heart failure developing. The patient denies having chest pain. He does acknowledge orthopnea. -: hour(s) Location: chest Severity scale (1-10): 0 Consistency: constant Improves with: none Associated Symptoms: cough Treatments Prior to Arrival: none - Related Data Home Medications Medication Instructions Recorded Confirmed Tamsulosin HCl [Flomax] 0.4 mg PO DAILY 02/14/18 10/28/22 Potassium Chloride [Potassium 10 meq PO DAILY@1700 05/01/21 10/28/22 Chloride ER] Pantoprazole Sodium [Protonix] 40 mg PO DAILY 10/20/22 10/28/22 Albuterol Inhaler [Ventolin Hfa 2 puff INHALATION RT-Q6H 10/28/22 10/28/22 Inhaler] Apixaban [Eliquis] 2.5 mg PO BID@0800,1700 10/28/22 10/28/22 Aspirin 81 mg PO DAILY@1200 10/28/22 10/28/22 Ensure Enlive 237 ml PO TID@0800,1200,1700 10/28/22 10/28/22 Eucerin Advanced Repair Cream 1 applic TOPICAL DAILY 10/28/22 10/28/22 Eucerin Advanced Repair Cream 1 applic TOPICAL DAILY PRN 10/28/22 10/28/22 Magnesium Hydroxide [Milk of 7,200 mg PO Q48H PRN 10/28/22 10/28/22 Magnesia Concentrate] Na Phos,M-B/Na Phos,Di-Ba [Fleet 133 ml RECTAL DAILY PRN 10/28/22 10/28/22 Adult] bisacodyL [Dulcolax] 10 mg RECTAL DAILY PRN 10/28/22 10/28/22 Previous Rx's Medication Instructions Recorded Furosemide [Lasix] 40 mg PO DAILY tab 10/24/22 Metoprolol Succinate (ER) [Toprol 25 mg PO DAILY tab 10/24/22 XL] cefUROXime axetiL [Ceftin] 500 mg PO BID 3 Days #6 tab 10/24/22 lisinopriL [Zestril] 2.5 mg PO DAILY tab 10/24/22 Allergies Allergy/AdvReac Type Severity Reaction Status Date / Time memantine [From Namenda] AdvReac Nausea & Verified 10/28/22 12:05 Vomiting & Diarrhea Review of Systems ROS Statement: Those systems with pertinent positive or pertinent negative responses have been documented in the HPI. ROS Other: All systems not noted in ROS Statement are negative. Constitutional: Reports: fever. Denies: chills, weakness Respiratory: Reports: cough, dyspnea. Denies: wheezes, hemoptysis Cardiovascular: Reports: palpitations, orthopnea, edema. Denies: chest pain, syncope Gastrointestinal: Denies: abdominal pain, vomiting, diarrhea Genitourinary: Denies: dysuria, hematuria Musculoskeletal: Denies: back pain Skin: Denies: rash Neurological: Denies: headache, weakness Past Medical History Past Medical History: Atrial Fibrillation, CVA/TIA, Deep Vein Thrombosis (DVT), Hyperlipidemia, Hypertension, Prostate Disorder, Pulmonary Embolus (PE), Supraventricular Tachycardia (SVT) Additional Past Medical History / Comment(s): 195 CVA with R sided weakness/speech difficulty, post cva pt states he had a blood clot that went into his back/surgery to remove, , 2020 fecal impaction/bowel perforation with sepsis/has colostomy, colitis, colon polyps, perstomal hernia/wears abdominal binder, past htn, BPH, pt states lasix started d/t edema, protein calorie malnutrition. History of Any Multi-Drug Resistant Organisms: None Reported Past Surgical History: Bowel Resection Additional Past Surgical History / Comment(s): 2020 bowel resection/colostomy, CVA in 1955 which made need for R elbow surgery/R ankle fusion, post cva surgery on back to remove blood clot, bilateral eye lens implants. Past Anesthesia/Blood Transfusion Reactions: No Reported Reaction Additional Past Anesthesia/Blood Transfusion Reaction / Comment(s): Pt believes he has received blood in past without reaction. Past Psychological History: No Psychological Hx Reported Smoking Status: Former smoker Past Alcohol Use History: None Reported Past Drug Use History: None Reported - Past Family History Mother Family Medical History: Dementia Additional Family Medical History / Comment(s): ALZHEIMERS Father Family Medical History: No Reported History Additional Family Medical History / Comment(s): Pt states his father was healthy General Exam Limitations: physical limitation General appearance: alert, in no apparent distress Head exam: Present: atraumatic, normocephalic Eye exam: Present: normal appearance. Absent: scleral icterus, conjunctival injection Neck exam: Present: normal inspection, full ROM Respiratory exam: Present: rales. Absent: respiratory distress, wheezes, rhonchi, stridor Cardiovascular Exam: Present: tachycardia, irregular rhythm, systolic murmur, gallop. Absent: diastolic murmur, rubs GI/Abdominal exam: Present: soft. Absent: distended, tenderness, guarding, rebound, rigid, mass, pulsatile mass Extremities exam: Present: normal inspection, normal capillary refill, pedal edema. Absent: calf tenderness Back exam: Present: normal inspection. Absent: CVA tenderness (R), CVA te nderness (L) Neurological exam: Present: alert Skin exam: Present: warm, dry, intact, normal color. Absent: rash Course Vital Signs 10/28/22 10/28/22 10/28/22 01:05 01:30 02:00 Temperature 98.2 F Pulse Rate 148 H 135 H 135 H Respiratory 18 18 18 Rate Blood Pressure 99/73 109/64 95/62 O2 Sat by Pulse 93 L 96 97 Oximetry 10/28/22 10/28/22 10/28/22 02:15 02:30 02:45 Temperature Pulse Rate 151 H 133 H 138 H Respiratory 16 16 16 Rate Blood Pressure 97/70 100/63 86/65 O2 Sat by Pulse 97 97 95 Oximetry 10/28/22 10/28/22 10/28/22 03:00 03:30 04:00 Temperature Pulse Rate 147 H 142 H 135 H Respiratory 18 18 18 Rate Blood Pressure 85/59 90/69 89/58 O2 Sat by Pulse 97 98 97 Oximetry 10/28/22 10/28/22 10/28/22 04:30 05:00 05:30 Temperature Pulse Rate 134 H 137 H 129 H Respiratory 18 20 18 Rate Blood Pressure 85/63 83/60 82/64 O2 Sat by Pulse 93 L 92 L 91 L Oximetry 10/28/22 10/28/22 10/28/22 06:00 07:00 08:00 Temperature Pulse Rate 125 H 126 H 112 H Respiratory 18 21 22 Rate Blood Pressure 98/63 86/63 94/72 O2 Sat by Pulse 96 96 95 Oximetry 10/28/22 10/28/22 10/28/22 09:00 10:00 11:00 Temperature Pulse Rate 116 H 128 H 122 H Respiratory 22 24 18 Rate Blood Pressure 95/73 96/72 99/55 O2 Sat by Pulse 95 95 96 Oximetry 10/28/22 10/28/22 10/28/22 12:00 13:00 15:40 Temperature Pulse Rate 130 H 128 H 122 H Respiratory 20 22 20 Rate Blood Pressure 83/58 94/69 95/70 O2 Sat by Pulse 96 96 95 Oximetry EKG Findings - EKG Results: EKG: interpreted by CINDY, normal axis EKG shows: atrial fibrillation (With rapid ventricular rate at 129 bpm) - Blocks, [place], Hypertrophy, ST Abn: AV and intraventricular conduction: right bundle branch block (fixed/intermittent, complete/incomplete), left posterior fascicular block Medical Decision Making - Medical Decision Making 's patient is an 87-year-old man sent from long term to have evaluation of cough, dyspnea, some edema and suspected congestive heart failure. On arrival here, patient is in atrial fibrillation with rapid ventricular rate. There is borderline hypotension. Patient does have congestive heart failure on the exam. Chest x-ray is obtained and I interpreted this as showing vascular congestion. The patient is attempted on Cardizem but this caused him to become frankly hypotensive. The Cardizem was stopped and patient will be tried on amiodarone for control of his atrial fibrillation. The admitting service is paged but we had not heard back at time of shift change. Was pt. sent in by a medical professional or institution (, PA, SAVINGS COUNSELOR, urgent care, hospital, or long term...) When possible be specific @ -[No] Did you speak to anyone other than the patient for history (EMS, parent, family, police, friend...)? What history was obtained from this source @ -[No] Did you review nursing and triage notes (agree or disagree)? Why? @ -[I reviewed and agree with nursing and triage notes] Were old charts reviewed (outside hosp., previous admission, EMS record, old EKG, old radiological studies, urgent care reports/EKG's, long term records)? Report findings @ -[Old charts were reviewed] Differential Diagnosis (chest pain, altered mental status, abdominal pain women, abdominal pain men, vaginal bleeding, weakness, fever, dyspnea, syncope, headache, dizziness, GI bleed, back pain, seizure, CVA, palpatations, mental health, musculoskeletal)? @ -[Differential Dyspnea: Coronary syndrome, arrhythmia, tamponade, asthma, COPD, pulmonary embolism, pneumonia, pneumothorax, pulmonary effusion, anaphylaxis, diabetic ketoacidosis, flailed chest, pulmonary contusion, diaphragmatic rupture, anemia, neuromuscular, this is not meant to be an all-inclusive list. EKG interpreted by me (3pts min.). @ -[As above] X-rays interpreted by me (1pt min.). @ -[As above CT interpreted by me (1pt min.). @ -[None done] U/S interpreted by me (1pt. min.). @ -[None done] What testing was considered but not performed or refused? (CT, X-rays, U/S, labs)? Why? @ -[None] What meds were considered but not given or refused? Why? @ -[None] Did you discuss the management of the patient with other professionals ( professionals i.e. , PA, SAVINGS COUNSELOR, lab, RT, psych nurse, sexual assault social worker, telephone order supervisor, teacher, transit police officer, case making machine operator)? Give summary @ -[As above Was smoking cessation discussed for >3mins.? @ -[No] Was critical care preformed (if so, how long)? @ -[yes, 30 minutes Were there social determinants of health that impacted care today? How? (Homelessness, low income, unemployed, alcoholism, drug addiction, transportation, low edu. Level, literacy, decrease access to med. care, senior living, rehab)? @ -[No] Was there de-escalation of care discussed even if they declined (Discuss DNR or withdrawal of care, Hospice)? DNR status @ -[No] What co-morbidities impacted this encounter? (DM, HTN, Smoking, COPD, CAD, Cancer, CVA, ARF, Chemo, Hep., AIDS, mental health diagnosis, sleep apnea, morbid obesity)? @ -[CHF/CAD Was patient admitted / discharged? Hospital course, mention meds given and route, prescriptions, significant lab abnormalities, going to OR and other pertinent info. @ -[Admitted Undiagnosed new problem with uncertain prognosis? @ -[No] Drug Therapy requiring intensive monitoring for toxicity (Heparin, Nitro, Insulin, Cardizem)? @ -[IV amiodarone Were any procedures done? @ -[No] Diagnosis/symptom? @ -[1. Dyspnea, likely multifactorial 2. Atrial fibrillation with rapid ventricular rate 3. Mild CHF exacerbation, probably due to atrial fibrillation Acute, or Chronic, or Acute on Chronic? @ -[Acute Uncomplicated (without systemic symptoms) or Complicated (systemic symptoms)? @ -[default] Side effects of treatment? @ -[No] Exacerbation, Progression, or Severe Exacerbation? @ -[No] Poses a threat to life or bodily function? How? (Chest pain, [place], [place], pneumonia, PE, COPD, DKA, ARF, appy, cholecystitis, CVA, Diverticulitis, Homicidal, Suicidal, threat to staff... and all critical care pts) @ -[Yes - Lab Data Result diagrams: 10/30/22 08:24 10/30/22 08:24 Lab Results 10/28/22 10/28/22 10/28/22 Range/Units 01:17 01:17 01:17 WBC 15.1 H (3.8-10.6) k/uL RBC 3.68 L (4.30-5.90) m/uL Hgb 10.6 L (13.0-17.5) gm/dL Hct 34.6 L (39.0-53.0) % MCV 94.0 (80.0-100.0) fL MCH 28.7 (25.0-35.0) pg MCHC 30.5 L (31.0-37.0) g/dL RDW 15.2 (11.5-15.5) % Plt Count 325 (150-450) k/uL MPV 9.1 Neutrophils % 85 % Lymphocytes % 8 % Monocytes % 5 % Eosinophils % 1 % Basophils % 0 % Neutrophils # 12.7 H (1.3-7.7) k/uL Lymphocytes # 1.2 (1.0-4.8) k/uL Monocytes # 0.8 (0-1.0) k/uL Eosinophils # 0.2 (0-0.7) k/uL Basophils # 0.0 (0-0.2) k/uL PT 11.5 (9.0-12.0) sec INR 1.1 (<1.2) APTT 27.8 (22.0-30.0) sec Sodium 139 (137-145) mmol/L Potassium 4.0 (3.5-5.1) mmol/L Chloride 103 (98-107) mmol/L Carbon Dioxide 29 (22-30) mmol/L Anion Gap 7 mmol/L BUN 34 H (9-20) mg/dL Creatinine 0.93 (0.66-1.25) mg/dL Est GFR (CKD-EPI)AfAm 85 (>60 ml/min/1.73 sqM) Est GFR (CKD-EPI)NonAf 74 (>60 ml/min/1.73 sqM) Glucose 108 H (74-99) mg/dL Plasma Lactic Acid Santosh (0.7-2.0) mmol/L Calcium 8.3 L (8.4-10.2) mg/dL Total Bilirubin 0.7 (0.2-1.3) mg/dL AST 23 (17-59) U/L ALT 22 (4-49) U/L Alkaline Phosphatase 189 H (38-126) U/L Troponin I (0.000-0.034) ng/mL NT-Pro-B Natriuret Pep pg/mL Total Protein 6.4 (6.3-8.2) g/dL Albumin 2.9 L (3.5-5.0) g/dL Influenza Type A (PCR) (Not Detectd) Influenza Type B (PCR) (Not Detectd) RSV (PCR) (Not Detectd) SARS-CoV-2 (PCR) (Not Detectd) 10/28/22 10/28/22 10/28/22 Range/Units 01:17 01:17 01:17 WBC (3.8-10.6) k/uL RBC (4.30-5.90) m/uL Hgb (13.0-17.5) gm/dL Hct (39.0-53.0) % MCV (80.0-100.0) fL MCH (25.0-35.0) pg MCHC (31.0-37.0) g/dL RDW (11.5-15.5) % Plt Count (150-450) k/uL MPV Neutrophils % % Lymphocytes % % Monocytes % % Eosinophils % % Basophils % % Neutrophils # (1.3-7.7) k/uL Lymphocytes # (1.0-4.8) k/uL Monocytes # (0-1.0) k/uL Eosinophils # (0-0.7) k/uL Basophils # (0-0.2) k/uL PT (9.0-12.0) sec INR (<1.2) APTT (22.0-30.0) sec Sodium (137-145) mmol/L Potassium (3.5-5.1) mmol/L Chloride (98-107) mmol/L Carbon Dioxide (22-30) mmol/L Anion Gap mmol/L BUN (9-20) mg/dL Creatinine (0.66-1.25) mg/dL Est GFR (CKD-EPI)AfAm (>60 ml/min/1.73 sqM) Est GFR (CKD-EPI)NonAf (>60 ml/min/1.73 sqM) Glucose (74-99) mg/dL Plasma Lactic Acid Santosh 1.2 (0.7-2.0) mmol/L Calcium (8.4-10.2) mg/dL Total Bilirubin (0.2-1.3) mg/dL AST (17-59) U/L ALT (4-49) U/L Alkaline Phosphatase (38-126) U/L Troponin I 0.021 (0.000-0.034) ng/mL NT-Pro-B Natriuret Pep 55207 pg/mL Total Protein (6.3-8.2) g/dL Albumin (3.5-5.0) g/dL Influenza Type A (PCR) (Not Detectd) Influenza Type B (PCR) (Not Detectd) RSV (PCR) (Not Detectd) SARS-CoV-2 (PCR) (Not Detectd) 10/28/22 Range/Units 02:04 WBC (3.8-10.6) k/uL RBC (4.30-5.90) m/uL Hgb (13.0-17.5) gm/dL Hct (39.0-53.0) % MCV (80.0-100.0) fL MCH (25.0-35.0) pg MCHC (31.0-37.0) g/dL RDW (11.5-15.5) % Plt Count (150-450) k/uL MPV Neutrophils % % Lymphocytes % % Monocytes % % Eosinophils % % Basophils % % Neutrophils # (1.3-7.7) k/uL Lymphocytes # (1.0-4.8) k/uL Monocytes # (0-1.0) k/uL Eosinophils # (0-0.7) k/uL Basophils # (0-0.2) k/uL PT (9.0-12.0) sec INR (<1.2) APTT (22.0-30.0) sec Sodium (137-145) mmol/L Potassium (3.5-5.1) mmol/L Chloride (98-107) mmol/L Carbon Dioxide (22-30) mmol/L Anion Gap mmol/L BUN (9-20) mg/dL Creatinine (0.66-1.25) mg/dL Est GFR (CKD-EPI)AfAm (>60 ml/min/1.73 sqM) Est GFR (CKD-EPI)NonAf (>60 ml/min/1.73 sqM) Glucose (74-99) mg/dL Plasma Lactic Acid Santosh (0.7-2.0) mmol/L Calcium (8.4-10.2) mg/dL Total Bilirubin (0.2-1.3) mg/dL AST (17-59) U/L ALT (4-49) U/L Alkaline Phosphatase (38-126) U/L Troponin I (0.000-0.034) ng/mL NT-Pro-B Natriuret Pep pg/mL Total Protein (6.3-8.2) g/dL Albumin (3.5-5.0) g/dL Influenza Type A (PCR) Not Detected (Not Detectd) Influenza Type B (PCR) Not Detected (Not Detectd) RSV (PCR) Not Detected (Not Detectd) SARS-CoV-2 (PCR) Not Detected (Not Detectd) Disposition Clinical Impression: Atrial fibrillation with RVR, CHF exacerbation Disposition: ADMITTED IP TO THIS HOSP Condition: Serious Is patient prescribed a controlled substance at d/c from ED?: No
[2022-10-28] MEDS ORDERED: ALBUTEROL NEBULIZED 2.5 MG/3 ML INHALATION SCH (06:00)
[2022-10-28] MEDS: SODIUM CHLORIDE 0.9% 1,000 ML IV SCH (06:13)
[2022-10-28] MEDS: ALBUTEROL HFA INHALER INHALATION SCH ×3 (06:21→19:24)
[2022-10-28] MEDS ORDERED: FUROSEMIDE 40 MG TAB PO SCH (09:00)
[2022-10-28] MEDS: TAMSULOSIN 0.4 MG CAP.ER.24H PO SCH (09:27)
[2022-10-28] MEDS: POTASSIUM CHLORIDE ER 10 MEQ TAB.ER.PRT PO SCH (09:27)
[2022-10-28] MEDS: APIXABAN 2.5 MG TABLET PO SCH ×2 (09:28→20:39)
[2022-10-28] MEDS: METOPROLOL SUCCINATE (ER) 25 MG TAB.ER.24H PO SCH (09:28)
[2022-10-28] MEDS: ASPIRIN 81 MG PO SCH (09:28)
[2022-10-28] MEDS: PANTOPRAZOLE 40 MG TABLET PO SCH (09:28)
[2022-10-28] MEDS: AMIODARONE 450 MG in DEXTROSE 5% IN WATER 250 ML IV SCH ×2 (10:14)
--- NOTE | 2022-10-28 12:25 | P.CRDCN ---
History of Present Illness Consult date: 10/28/22 Chief complaint: Change in mental status History of present illness: This is an 87-year-old gentleman who is known to our service from before with a past medical history significant for permanent atrial fibrillation maintaining on oral anticoagulation as well as history of cardiomyopathy as well as valvular heart disease with mitral regurgitation and also pulmonary hypertension was brought from an extended care facility to the hospital for further cardiac evaluation. The patient is known to her service where he was seen recently in the hospital with mildly abnormal troponin and further investigation was performed including an echo revealed impaired LV function was EF between 30-35% was moderate MR and mild pulmonary hypertension and moderate tricuspid regurgitation. The patient was seen and evaluated in the emergency department. He is somewhat a poor historian and he was slightly lethargic. He lives with his at extended care facility. He stated that for the last few weeks he has been experiencing cough productive of sputum and also he has been more short of breath. No symptoms of any chest pain or chest discomfort and no dizziness or lightheadedness and no feeling of heart racing or fluttering or presyncope or syncope. This time he underwent an investigation including EKG showing atrial fibrillation. He also underwent a chest x-ray which showed findings consistent with heart failure. NT proBNP came in to be elevated at 10,000. The patient subsequently started on amiodarone IV because he was tachycardic where he was in A. fib with RVR and he remains on amiodarone IV. Oral anticoagulation was restarted again. When the patient was seen and examined this morning he did not look in overt congestive heart failure. His vitals showed low blood pressure with a systolic pressure in the 80s. His heart rate was around 110 beats per minutes in atrial fibrillation. The rest of the physical exam revealed a regular rhythm with a systolic murmur and he does have diminished breathing sounds bilaterally was mild bilateral expiratory wheezing noted as well. Assessment Atrial fibrillation with rapid ventricular response Known severe cardiomyopathy as described above Valvular heart disease as described above Shortness of breath with possible component of pneumonia Known permanent atrial fibrillation Hypotension Plan DC lisinopril Agree about keeping the patient on amiodarone IV Oral anticoagulation was restarted DC Lasix at this point in the light of low blood pressure No need to repeat the echo in the light of recent echocardiogram showing impaired LV function Consider restarting the patient's back on Lasix once his pressure is more stable Follow-up with the patient Past Medical History Past Medical History: Atrial Fibrillation, CVA/TIA, Deep Vein Thrombosis (DVT), Hyperlipidemia, Hypertension, Prostate Disorder, Pulmonary Embolus (PE), Supraventricular Tachycardia (SVT) Additional Past Medical History / Comment(s): 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 History of Any Multi-Drug Resistant Organisms: None Reported Past Surgical History: Bowel Resection Additional Past Surgical History / Comment(s): 2020 bowel resection/colostomy, CVA in 1955 which made need for R elbow surgery/R ankle fusion, post cva surgery on back to remove blood clot, bilateral eye lens implants. Past Anesthesia/Blood Transfusion Reactions: No Reported Reaction Additional Past Anesthesia/Blood Transfusion Reaction / Comment(s): Pt believes he has received blood in past without reaction. Past Psychological History: No Psychological Hx Reported Smoking Status: Former smoker Past Alcohol Use History: None Reported Past Drug Use History: None Reported - Past Family History Mother Family Medical History: Dementia Additional Family Medical History / Comment(s): ALZHEIMERS Father Family Medical History: No Reported History Additional Family Medical History / Comment(s): Pt states his father was healthy Medications and Allergies Home Medications Medication Instructions Recorded Confirmed Type Tamsulosin HCl [Flomax] 0.4 mg PO DAILY 02/14/18 10/28/22 History Potassium Chloride [Potassium 10 meq PO DAILY 05/01/21 10/28/22 History Chloride ER] Pantoprazole Sodium [Protonix] 40 mg PO DAILY 10/20/22 10/28/22 History Apixaban [Eliquis] 2.5 mg PO BID tab 10/24/22 10/28/22 Rx Aspirin 81 mg PO DAILY tab 10/24/22 10/28/22 Rx Furosemide [Lasix] 40 mg PO DAILY tab 10/24/22 10/28/22 Rx Metoprolol Succinate (ER) [Toprol 25 mg PO DAILY tab 10/24/22 10/28/22 Rx XL] cefUROXime axetiL [Ceftin] 500 mg PO BID 3 Days #6 tab 10/24/22 10/28/22 Rx lisinopriL [Zestril] 2.5 mg PO DAILY tab 10/24/22 10/28/22 Rx Albuterol Inhaler [Ventolin Hfa 2 puff INHALATION RT-Q6H 10/28/22 10/28/22 History Inhaler] Allergies Allergy/AdvReac Type Severity Reaction Status Date / Time memantine [From Namenda] AdvReac Nausea & Verified 10/28/22 12:05 Vomiting & Diarrhea Physical Exam Vitals: Vital Signs Temp Pulse Resp BP Pulse Ox 10/28/22 06:00 125 H 18 98/63 96 10/28/22 05:30 129 H 18 82/64 91 L 10/28/22 05:00 137 H 20 83/60 92 L 10/28/22 04:30 134 H 18 85/63 93 L 10/28/22 04:00 135 H 18 89/58 97 10/28/22 03:30 142 H 18 90/69 98 10/28/22 03:00 147 H 18 85/59 97 10/28/22 02:45 138 H 16 86/65 95 10/28/22 02:30 133 H 16 100/63 97 10/28/22 02:15 151 H 16 97/70 97 10/28/22 02:00 135 H 18 95/62 97 10/28/22 01:30 135 H 18 109/64 96 10/28/22 01:05 98.2 F 148 H 18 99/73 93 L Intake and Output 10/27/22 10/28/22 10/28/22 22:59 06:59 14:59 Other: Weight 68.039 kg Results 10/28/22 01:17 10/28/22 01:17 Cardiac Enzymes 10/28/22 10/28/22 10/28/22 Range/Units 01:17 01:17 07:29 AST 23 (17-59) U/L Troponin I 0.021 0.022 (0.000-0.034) ng/mL 10/28/22 Range/Units 10:08 AST (17-59) U/L Troponin I 0.018 (0.000-0.034) ng/mL Coagulation 10/28/22 Range/Units 01:17 PT 11.5 (9.0-12.0) sec APTT 27.8 (22.0-30.0) sec CBC 10/28/22 Range/Units 01:17 WBC 15.1 H (3.8-10.6) k/uL RBC 3.68 L (4.30-5.90) m/uL Hgb 10.6 L (13.0-17.5) gm/dL Hct 34.6 L (39.0-53.0) % Plt Count 325 (150-450) k/uL Comprehensive Metabolic Panel 10/28/22 Range/Units 01:17 Sodium 139 (137-145) mmol/L Potassium 4.0 (3.5-5.1) mmol/L Chloride 103 (98-107) mmol/L Carbon Dioxide 29 (22-30) mmol/L BUN 34 H (9-20) mg/dL Creatinine 0.93 (0.66-1.25) mg/dL Glucose 108 H (74-99) mg/dL Calcium 8.3 L (8.4-10.2) mg/dL AST 23 (17-59) U/L ALT 22 (4-49) U/L Alkaline Phosphatase 189 H (38-126) U/L Total Protein 6.4 (6.3-8.2) g/dL Albumin 2.9 L (3.5-5.0) g/dL Current Medications Generic Name Dose Route Start Last Admin Trade Name Freq PRN Reason Stop Dose Admin Albuterol Sulfate 2 puff 10/28/22 06:19 10/28/22 11:31 Albuterol Hfa Inhaler INHALATION 2 puff RT-Q6H KATHLEEN Administration Apixaban 2.5 mg 10/28/22 09:00 10/28/22 09:28 Apixaban 2.5 Mg Tablet PO 2.5 mg BID KATHLEEN Administration Protocol Aspirin 81 mg 10/28/22 09:00 10/28/22 09:28 Aspirin 81 Mg PO 81 mg DAILY KATHLEEN Administration Sodium Chloride 1,000 mls @ 20 mls/hr 10/28/22 05:45 10/28/22 06:13 Saline 0.9% IV 20 mls/hr .Q24H KATHLEEN Administration Amiodarone HCl 450 mg/ 250 mls @ 16.667 mls/hr 10/28/22 09:30 10/28/22 10:14 Dextrose/Water IV 10/29/22 03:29 0.5 mg/min .Q15H KATHLEEN 16.667 mls/hr Administration Protocol 0.5 MG/MIN Metoprolol Succinate 25 mg 10/28/22 09:00 10/28/22 09:28 Metoprolol Succinate (Er) 25 Mg Tab.Er.24h PO 25 mg DAILY KATHLEEN Administration Pantoprazole Sodium 40 mg 10/28/22 09:00 10/28/22 09:28 Pantoprazole 40 Mg Tablet PO 40 mg DAILY KATHLEEN Administration Potassium Chloride 10 meq 10/28/22 09:00 10/28/22 09:27 Potassium Chloride Er 10 Meq Tab.Er.Prt PO 10 meq DAILY KATHLEEN Administration Tamsulosin HCl 0.4 mg 10/28/22 09:00 10/28/22 09:27 Tamsulosin 0.4 Mg Cap.Er.24h PO 0.4 mg DAILY KATHLEEN Administration Intake and Output 10/27/22 10/28/22 10/28/22 22:59 06:59 14:59 Other: Weight 68.039 kg 10/28/22 01:17 10/28/22 01:17
--- NOTE | 2022-10-28 16:40 | P.HPIM ---
History of Present Illness H&P Date: 10/28/22 Chief Complaint: Cough/shortness of breath 87-year-old man sent here to have evaluation for a constellation of symptoms that are been coming on over the past hours today. There has been cough with some whitish sputum. Patient also has had some leg swelling. There was conc erned about possibility of congestive heart failure developing. The patient denies having chest pain. He does acknowledge orthopnea. Patient underwent an investigation including EKG showing atrial fibrillation. He also underwent a chest x-ray which showed findings consistent with heart failure. NT proBNP came in to be elevated at 10,000. The patient subsequently started on amiodarone IV because he was tachycardic where he was in A. fib with RVR and he remains on amiodarone IV. Oral anticoagulation was restarted again. When the patient was seen and examined this morning he did not look in overt congestive heart failure. His vitals showed low blood pressure with a systolic pressure in the 80s. His heart rate was around 110 beats per minutes in atrial fibrillation. The rest of the physical exam revealed a regular rhythm with a systolic murmur and he does have diminished breathing sounds bilaterally was mild bilateral expiratory wheezing noted as well. Review of Systems REVIEW OF SYSTEMS: CONSTITUTIONAL: No fever, no malaise, no fatigue. HEENT: No recent visual problems or hearing problems. Denied any sore throat. CARDIOVASCULAR: No chest pain, orthopnea, PND, no palpitations, no syncope. PULMONARY: No shortness of breath, no cough, no hemoptysis. GASTROINTESTINAL: No diarrhea, no nausea, no vomiting, no abdominal pain. NEUROLOGICAL: No headaches, no weakness, no numbness. HEMATOLOGICAL: Denies any bleeding or petechiae. GENITOURINARY: Denies any burning micturition, frequency, or urgency. MUSCULOSKELETAL/RHEUMATOLOGICAL: Denies any joint pain, swelling, or any muscle pain. ENDOCRINE: Denies any polyuria or polydipsia. The rest of the 14-point review of systems is negative. Past Medical History Past Medical History: Atrial Fibrillation, CVA/TIA, Deep Vein Thrombosis (DVT), Hyperlipidemia, Hypertension, Prostate Disorder, Pulmonary Embolus (PE), [place] praventricular Tachycardia (SVT) Additional Past Medical History / Comment(s): 1956 CVA with R sided weakness/speech difficulty, post cva pt states he had a blood clot that went into his back/surgery to remove, , 2020 fecal impaction/bowel perforation with sepsis/has colostomy, colitis, colon polyps, perstomal hernia/wears abdominal binder, past htn, BPH, pt states lasix started d/t edema, protein calorie malnutrition. History of Any Multi-Drug Resistant Organisms: None Reported Past Surgical History: Bowel Resection Additional Past Surgical History / Comment(s): 2020 bowel resection/colostomy, CVA in 1955 which made need for R elbow surgery/R ankle fusion, post cva surgery on back to remove blood clot, bilateral eye lens implants. Past Anesthesia/Blood Transfusion Reactions: No Reported Reaction Additional Past Anesthesia/Blood Transfusion Reaction / Comment(s): Pt believes he has received blood in past without reaction. Past Psychological History: No Psychological Hx Reported Smoking Status: Former smoker Past Alcohol Use History: None Reported Past Drug Use History: None Reported - Past Family History Mother Family Medical History: Dementia Additional Family Medical History / Comment(s): ALZHEIMERS Father Family Medical History: No Reported History Additional Family Medical History / Comment(s): Pt states his father was healthy Medications and Allergies Home Medications Medication Instructions Recorded Confirmed Type Tamsulosin HCl [Flomax] 0.4 mg PO DAILY 02/14/18 10/28/22 History Potassium Chloride [Potassium 10 meq PO DAILY@1700 05/01/21 10/28/22 History Chloride ER] Pantoprazole Sodium [Protonix] 40 mg PO DAILY 10/20/22 10/28/22 History Furosemide [Lasix] 40 mg PO DAILY tab 10/24/22 10/28/22 Rx Metoprolol Succinate (ER) [Toprol 25 mg PO DAILY tab 10/24/22 10/28/22 Rx XL] cefUROXime axetiL [Ceftin] 500 mg PO BID 3 Days #6 tab 10/24/22 10/28/22 Rx lisinopriL [Zestril] 2.5 mg PO DAILY tab 10/24/22 10/28/22 Rx Albuterol Inhaler [Ventolin Hfa 2 puff INHALATION RT-Q6H 10/28/22 10/28/22 History Inhaler] Apixaban [Eliquis] 2.5 mg PO BID@0800,1700 10/28/22 10/28/22 History Aspirin 81 mg PO DAILY@1200 03/05/23 03/05/23 History Ensure Enlive 237 ml PO TID@0800,1200,1700 10/28/22 10/28/22 History Eucerin Advanced Repair Cream 1 applic TOPICAL DAILY 10/28/22 10/28/22 History Eucerin Advanced Repair Cream 1 applic TOPICAL DAILY PRN 10/28/22 10/28/22 History Magnesium Hydroxide [Milk of 7,200 mg PO Q48H PRN 10/28/22 10/28/22 History Magnesia Concentrate] Na Phos,M-B/Na Phos,Di-Ba [Fleet 133 ml RECTAL DAILY PRN 10/28/22 10/28/22 History Adult] bisacodyL [Dulcolax] 10 mg RECTAL DAILY PRN 10/28/22 10/28/22 History Allergies Allergy/AdvReac Type Severity Reaction Status Date / Time memantine [From Namenda] AdvReac Nausea & Verified 10/28/22 12:05 Vomiting & Diarrhea Physical Exam Vitals: Vital Signs Temp Pulse Resp BP Pulse Ox 10/28/22 06:00 125 H 18 98/63 96 10/28/22 05:30 129 H 18 82/64 91 L 10/28/22 05:00 137 H 20 83/60 92 L 10/28/22 04:30 134 H 18 85/63 93 L 10/28/22 04:00 135 H 18 89/58 97 10/28/22 03:30 142 H 18 90/69 98 10/28/22 03:00 147 H 18 85/59 97 10/28/22 02:45 138 H 16 86/65 95 10/28/22 02:30 133 H 16 100/63 97 10/28/22 02:15 151 H 16 97/70 97 10/28/22 02:00 135 H 18 95/62 97 10/28/22 01:30 135 H 18 109/64 96 10/28/22 01:05 98.2 F 148 H 18 99/73 93 L Intake and Output 10/27/22 10/28/22 10/28/22 22:59 06:59 14:59 Other: Weight 68.039 kg - Constitutional General appearance: Present: average body habitus, cooperative, no acute distress - EENT Eyes: Present: anicteric sclerae, EOMI, PERRLA, normal appearance ENT: Present: hearing grossly normal, normal oropharynx Ears: bilateral: normal - Neck Neck: Present: normal ROM. Absent: lymphadenopathy, rigidity, thyromegaly Carotids: negative: bruit present Thyroid: bilateral: normal size, negative: enlarged, nodule - Respiratory Respiratory: bilateral: CTA, negative: rales, rhonchi, wheezing - Cardiovascular Rhythm: regular Heart sounds: normal: S1, S2 Abnormal Heart Sounds: Absent: systolic murmur, diastolic murmur - Gastrointestinal General gastrointestinal: Present: normal bowel sounds, soft. Absent: distended, organomegaly, tenderness - Genitourinary Genitourinary Comment(s): deferred - Integumentary Integumentary: Present: normal turgor. Absent: jaundiced, rash, ulcer - Neurologic Neurologic: Present: CNII-XII intact. Absent: focal deficits - Musculoskeletal Musculoskeletal: Present: gait normal, strength equal bilaterally - Psychiatric Psychiatric: Present: A&O x's 3, appropriate affect, intact judgment & insight Results CBC & Chem 7: 10/28/22 01:17 10/28/22 01:17 Labs: Abnormal Lab Results - Last 24 Hours (Table) 10/28/22 10/28/22 Range/Units 01:17 01:17 WBC 15.1 H (3.8-10.6) k/uL RBC 3.68 L (4.30-5.90) m/uL Hgb 10.6 L (13.0-17.5) gm/dL Hct 34.6 L (39.0-53.0) % MCHC 30.5 L (31.0-37.0) g/dL Neutrophils # 12.7 H (1.3-7.7) k/uL BUN 34 H (9-20) mg/dL Glucose 108 H (74-99) mg/dL Calcium 8.3 L (8.4-10.2) mg/dL Alkaline Phosphatase 189 H (38-126) U/L Albumin 2.9 L (3.5-5.0) g/dL Assessment and Plan Assessment: Atrial fibrillation with rapid ventricular response Known severe cardiomyopathy as described above Valvular heart disease as described above Shortness of breath with possible component of pneumonia Known permanent atrial fibrillation Hypertension; currently blood pressure soft; antihypertensive therapy remains on hold Hyperlipidemia DVT/PE History of CVA/TIA Plan DC lisinopril Agree about keeping the patient on amiodarone IV Oral anticoagulation was restarted DC Lasix at this point in the light of low blood pressure No need to repeat the echo in the light of recent echocardiogram showing impaired LV function Consider restarting the patient's back on Lasix once his pressure is more stable
[2022-10-29] MEDS: AMIODARONE 450 MG in DEXTROSE 5% IN WATER 250 ML IV SCH ×2 (00:10)
[2022-10-29] MEDS: ALBUTEROL HFA INHALER INHALATION SCH ×4 (02:06→19:38)
[2022-10-29 05:54] LABS: Calcium 8.1 mg/dL (8.4-10.2); Potassium 4.1 mmol/L (3.5-5.1)
[2022-10-29 05:57] LABS: Glucose,Whole Blood 120 mg/dL (70-110)
[2022-10-29] MEDS: AMIODARONE 200 MG TAB PO SCH ×2 (09:29→20:06)
[2022-10-29] MEDS: POTASSIUM CHLORIDE ER 10 MEQ TAB.ER.PRT PO SCH (09:29)
[2022-10-29] MEDS: ASPIRIN 81 MG PO SCH (09:29)
[2022-10-29] MEDS: PANTOPRAZOLE 40 MG TABLET PO SCH (09:29)
[2022-10-29] MEDS: METOPROLOL SUCCINATE (ER) 25 MG TAB.ER.24H PO SCH ×3 (09:29→20:06)
[2022-10-29] MEDS: APIXABAN 2.5 MG TABLET PO SCH ×2 (09:29→20:06)
[2022-10-29] MEDS: TAMSULOSIN 0.4 MG CAP.ER.24H PO SCH (09:29)
--- NOTE | 2022-10-29 13:44 | P.PN ---
Subjective 87-year-old man sent here to have evaluation for a constellation of symptoms that are been coming on over the past hours today. There has been cough with some whitish sputum. Patient also has had some leg swelling. There was concerned about possibility of congestive heart failure developing. The patient denies having chest pain. He does acknowledge orthopnea. Patient underwent an investigation including EKG showing atrial fibrillation. He also underwent a chest x-ray which showed findings consistent with heart failure. NT proBNP came in to be elevated at 10,000. The patient subsequently started on amiodarone IV because he was tachycardic where he was in A. fib with RVR and he remains on amiodarone IV. Oral anticoagulation was restarted again. When the patient was seen and examined this morning he did not look in overt congestive heart failure. His vitals showed low blood pressure with a systolic pressure in the 80s. His heart rate was around 110 beats per minutes in atrial fibrillation. The rest of the physical exam revealed a regular rhythm with a systolic murmur and he does have diminished breathing sounds bilaterally was mild bilateral expiratory wheezing noted as well. 10/29/2022 Patient presents because of dyspnea and found to have acute CHF. His abdominal pain have also atrial fibrillation and blood pressure was borderline low on admission, patient seen by photo mask cleaner He was treated with amiodarone drip for his A. fib and RVR and switched to oral amiodarone 400 mg today he came off his amiodarone drip. Discontinue it on liquids 2.5 and Lasix 40 mg daily. Also he is on home dose of aspirin 81 mg. Physical exam coughing. The chest x-ray. Also we will repeat WBC today. Echocardiogram from 09/2022 showing ejection fraction of 20-25% and moderate mitral regurgitation Patient came from correction, possible early discharged to [facility] open discharged to finish his rehab. Objective - Vital Signs Vital signs: Vital Signs Temp 98.4 F 10/29/22 08:00 Pulse 122 H 10/29/22 08:00 Resp 20 10/29/22 08:00 BP 98/67 10/29/22 08:00 Pulse Ox 92 L 10/29/22 08:08 FiO2 21 10/29/22 08:08 Intake & Output 10/28/22 10/29/22 10/29/22 18:59 06:59 18:59 Intake Total 232.227 300 Output Total 1800 550 Balance -1800 -317.773 300 Weight 71 kg 71 kg Intake: Intake, IV Titration 232.227 Amount Amiodarone 450 mg In 232.227 Dextrose 5% in Water 250 ml @ 0.5 MG/MIN 16.667 mls/hr IV .Q15H [facility] Rx#: [id number] Oral 300 Output: Urine 1800 550 Other: Voiding Method Indwelling Catheter Indwelling Catheter - Exam -GENERAL: The patient is alert and oriented x3, not in any acute distress. Well developed, well nourished. Generally weak HEENT: Pupils are round and equally reacting to light. EOMI. No scleral icterus. No conjunctival pallor. Normocephalic, atraumatic. No pharyngeal erythema. No thyromegaly. CARDIOVASCULAR: S1 and S2 present. No murmurs, rubs, or gallops. -PULMONARY: Chest is clear to auscultation, no wheezing or crackles. Weak coughing ABDOMEN: Soft, nontender, nondistended, normoactive bowel sounds. No palpable organomegaly. MUSCULOSKELETAL: No joint swelling or deformity. EXTREMITIES: No cyanosis, clubbing, or pedal edema. NEUROLOGICAL: Gross neurological examination did not reveal any focal deficits. SKIN: No rashes. no petechiae. - Labs CBC & Chem 7: 10/28/22 01:17 10/29/22 04:11 Labs: Abnormal Lab Results - Last 24 Hours (Table) 10/29/22 10/29/22 Range/Units 04:11 05:55 BUN 28 H (9-20) mg/dL POC Glucose (mg/dL) 120 H (70-110) mg/dL Calcium 8.1 L (8.4-10.2) mg/dL Assessment and Plan Assessment: Acute CHF exacerbation, systolic, with ejection of 20-25% Paroxysmal A. fib and RVR, present on admission. Currently heart rate is controlled Low normal blood pressure, currently improved Hypertension Hyperlipidemia History of DVT/PE History of CVA/TIA Plan: Continue with amiodarone, Continue with eliquis Continue with oral Lasix Cardiology clearedthe patient Labs and medication were reviewed.. Continue same treatment. Continue with symptomatic treatment. Resume home medication. Monitor labs and vitals. DVT and GI prophylaxis. Further recommendations as per clinical course of the patient DVT prophylaxis: eliquis GI Prophylaxis: Ppi Prognosis is guarded Possible discharge soon to subacute rehab
--- NOTE | 2022-10-29 14:02 | P.PN ---
Subjective Progress Note Date: 10/29/22 HISTORY OF PRESENT ILLNESS: This is an 87-year-old gentleman who is known to our service from before with a past medical history significant for permanent atrial fibrillation maintaining on oral anticoagulation as well as history of cardiomyopathy as well as valvular heart disease with mitral regurgitation and also pulmonary hypertension was brought from an extended care facility to the hospital for further cardiac evaluation. The patient is known to her service where he was seen recently in the hospital with mildly abnormal troponin and further investigation was performed including an echo revealed impaired LV function was EF between 30-35% was moderate MR and mild pulmonary hypertension and moderate tricuspid regurgitation. The patient was seen and evaluated in the emergency department. He is somewhat a poor historian and he was slightly lethargic. He lives with his at extended care facility. He stated that for the last few weeks he has been experiencing cough productive of sputum and also he has been more short of breath. No symptoms of any chest pain or chest discomfort and no dizziness or lightheadedness and no feeling of heart racing or fluttering or presyncope or syncope. This time he underwent an investigation including EKG showing atrial fibrillation. He also underwent a chest x-ray which showed findings consistent with heart failure. NT proBNP came in to be elevated at 10,000. The patient subsequently started on amiodarone IV because he was tachycardic where he was in A. fib with RVR and he remains on amiodarone IV. Oral anticoagulation was restarted again. When the patient was seen and examined this morning he did not look in overt congestive heart failure. His vitals showed low blood pressure with a systolic pressure in the 80s. His heart rate was around 110 beats per minutes in atrial fibrillation. The rest of the physical exam revealed a regular rhythm with a systolic murmur and he does have diminished breathing s ounds bilaterally was mild bilateral expiratory wheezing noted as well. 10/29/2022 Patient examined this morning at the bedside. Patient denies chest pain or pressure. He currently denies shortness of breath. Telemetry reveals atrial fibrillation with a heart rate ranging between 100-120. Recent echocardiogram performed reveals ejection fraction 20-25%. PHYSICAL EXAM: VITAL SIGNS: Reviewed. GENERAL: Well-developed in no acute distress. NECK: Supple. No JVD or thyromegaly LUNGS: Respirations even and unlabored. Lungs diminished to auscultation ajay aterally. HEART: Tachycardic. Irregular rate and rhythm. S1 and S2 heard. Systolic murmur noted. EXTREMITIES: Normal range of motion. No clubbing or cyanosis. Peripheral pulses intact. 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 Salmon Further recommendations pending patient course Nurse practitioner note has been reviewed by physician. Signing provider agrees with the documented findings, assessment, and plan of care. Objective - Vital Signs Vital signs: Vital Signs Temp 98.4 F 10/29/22 08:00 Pulse 122 H 10/29/22 08:00 Resp 20 10/29/22 08:00 BP 98/67 10/29/22 08:00 Pulse Ox 92 L 10/29/22 08:08 FiO2 21 10/29/22 08:08 Intake & Output 10/28/22 10/29/22 10/29/22 18:59 06:59 18:59 Intake Total 232.227 300 Output Total 1800 550 Balance -1800 -317.773 300 Weight 71 kg 71 kg Intake: Intake, IV Titration 232.227 Amount Amiodarone 450 mg In 232.227 Dextrose 5% in Water 250 ml @ 0.5 MG/MIN 16.667 mls/hr IV .Q15H [facility] Rx#: [id number] Oral 300 Output: Urine 1800 550 Other: Voiding Method Indwelling Catheter Indwelling Catheter - Labs CBC & Chem 7: 10/28/22 01:17 10/29/22 04:11 Labs: Abnormal Lab Results - Last 24 Hours (Table) 10/29/22 10/29/22 Range/Units 04:11 05:55 BUN 28 H (9-20) mg/dL POC Glucose (mg/dL) 120 H (70-110) mg/dL Calcium 8.1 L (8.4-10.2) mg/dL
--- NOTE | 2022-10-29 14:27 | XR ---
EXAMINATION TYPE: XR chest 2V DATE OF EXAM: 10/29/2022 COMPARISON: 10/28/2022. HISTORY: Shortness of breath. TECHNIQUE: Frontal and lateral views of the chest are obtained. FINDINGS: The cardiac silhouette is mild to moderately enlarged and there is no significant change i n the pulmonary edema when compared to the previous examination. There are [id number] bilatera l pleural effusions. IMPRESSION: Cardiomegaly with no change in the pulmonary edema and [id number] bilateral pleur al effusions are noted.
[2022-10-29 15:05] LABS: HGB 10.5 gm/dL (13.0-17.5); MCHC 30.9 g/dL (31.0-37.0); MCV 93.9 fL (80.0-100.0); Mean Platelet Volume 9.1; Platelet Count 315 k/uL (150-450); RBC 3.62 m/uL (4.30-5.90); RDW 15.1 % (11.5-15.5); WBC 18.2 k/uL (3.8-10.6)
[2022-10-29] MEDS: ONDANSETRON 4 MG/2 ML VIAL IVP PRN (16:50)
[2022-10-29] MEDS: SPIRONOLACTONE 25 MG TAB PO SCH (16:50)
[2022-10-29 20:16] LABS: Glucose,Whole Blood 97 mg/dL (70-110)
[2022-10-29] MEDS: SODIUM CHLORIDE 0.9% 1,000 ML IV SCH (21:37)
[2022-10-30] MEDS: ALBUTEROL HFA INHALER INHALATION SCH ×4 (04:52→20:06)
[2022-10-30 06:11] LABS: Glucose,Whole Blood 139 mg/dL (70-110)
[2022-10-30] MEDS: SODIUM CHLORIDE 0.9% 1,000 ML IV SCH (07:42)
[2022-10-30] MEDS: TAMSULOSIN 0.4 MG CAP.ER.24H PO SCH (08:49)
[2022-10-30] MEDS: POTASSIUM CHLORIDE ER 10 MEQ TAB.ER.PRT PO SCH (08:49)
[2022-10-30] MEDS: METOPROLOL SUCCINATE (ER) 25 MG TAB.ER.24H PO SCH ×2 (08:49→20:37)
[2022-10-30] MEDS: FUROSEMIDE 40 MG TAB PO SCH (08:49)
[2022-10-30] MEDS: SPIRONOLACTONE 25 MG TAB PO SCH (08:49)
[2022-10-30] MEDS: ASPIRIN 81 MG PO SCH (08:49)
[2022-10-30] MEDS: PANTOPRAZOLE 40 MG TABLET PO SCH (08:49)
[2022-10-30] MEDS: AMIODARONE 200 MG TAB PO SCH ×2 (08:49→20:37)
[2022-10-30] MEDS: APIXABAN 2.5 MG TABLET PO SCH ×2 (08:50→20:37)
[2022-10-30 09:08] LABS: HCT 35.1 % (39.0-53.0); HGB 10.6 gm/dL (13.0-17.5); Hypochromasia Slight; MCH 29.2 pg (25.0-35.0); MCHC 30.1 g/dL (31.0-37.0); MCV 96.9 fL (80.0-100.0); Platelet Count 314 k/uL (150-450); RBC 3.63 m/uL (4.30-5.90); RDW 14.8 % (11.5-15.5); WBC 15.2 k/uL (3.8-10.6)
[2022-10-30 09:22] LABS: Calcium 8.2 mg/dL (8.4-10.2); Potassium 4.7 mmol/L (3.5-5.1)
--- NOTE | 2022-10-30 11:07 | P.PN ---
Subjective 87-year-old man sent here to have evaluation for a constellation of symptoms that are been coming on over the past hours today. There has been cough with some whitish sputum. Patient also has had some leg swelling. There was concerned about possibility of congestive heart failure developing. The patient denies having chest pain. He does acknowledge orthopnea. Patient underwent an investigation including EKG showing atrial fibrillation. He also underwent a chest x-ray which showed findings consistent with heart failure. NT proBNP came in to be elevated at 10,000. The patient subsequently started on amiodarone IV because he was tachycardic where he was in A. fib with RVR and he remains on amiodarone IV. Oral anticoagulation was restarted again. When the patient was seen and examined this morning he did not look in overt congestive heart failure. His vitals showed low blood pressure with a systolic pressure in the 80s. His heart rate was around 110 beats per minutes in atrial fibrillation. The rest of the physical exam revealed a regular rhythm with a systolic murmur and he does have diminished breathing sounds bilaterally was mild bilateral expiratory wheezing noted as well. 10/29/2022 Patient presents because of dyspnea and found to have acute CHF. 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 fib and RVR and switched to oral amiodarone 400 mg today he came off his amiodarone drip. Discontinue it on liquids 2.5 and Lasix 40 mg daily. Also he is on home dose of aspirin 81 mg. Physical exam coughing. The chest x-ray. Also we will repeat WBC today. Echocardiogram from 09/2022 showing ejection fraction of 20-25% and moderate mitral regurgitation Patient came from long-term, possible early discharged to [facility] open discharged to finish his rehab. 10/30/2022 Patient awake alert, he said that his breathing is better and back to normal for him, still mildly tachypneic with coughing. Robitussin as needed. Denies chest pain. He feels generally weak but this could be due to aging. Patient however her blood pressure sore on the low side although it is improved, this morning 104/58. Patient's tachycardia is improving, he is saturating 94- 97% on room air. He does not use accessory muscles to breathe. And checked previous records, his blood pressure was better last year. Chest x- ray showing bilateral pleural effusion, pulmonary congestion. Howevercalcitonin is still pending and we will send for urine analysis today. In the meantime patient On metoprolol 25 mg, amiodarone 400 mg, home dose of liquids 2.5 mg and Lasix 40 mg by mouth daily. Discussed with staff Objective - Vital Signs Vital signs: Vital Signs Temp 98.7 F 10/30/22 08:46 Pulse 100 10/30/22 08:46 Resp 16 10/30/22 08:46 BP 104/58 10/30/22 08:46 Pulse Ox 97 10/30/22 08:46 FiO2 21 10/29/22 08:08 Intake & Output 10/29/22 10/30/22 10/30/22 18:59 06:59 18:59 Intake Total 390 Output Total 500 Balance 390 -500 Weight 71 kg 70.5 kg Intake: Oral 390 Output: Urine 500 Other: Voiding Method Indwelling Catheter Indwelling Catheter # Bowel Movements 1 - Exam -GENERAL: The patient is alert and oriented x3, not in any acute distress. Well developed, well nourished. Generally weak HEENT: Pupils are round and equally reacting to light. EOMI. No scleral icterus. No conjunctival pallor. Normocephalic, atraumatic. No pharyngeal erythema. No thyromegaly. CARDIOVASCULAR: S1 and S2 present. No murmurs, rubs, or gallops. -PULMONARY: Chest is clear to auscultation, no wheezing or crackles. Weak coughing ABDOMEN: Soft, nontender, nondistended, normoactive bowel sounds. No palpable organomegaly. MUSCULOSKELETAL: No joint swelling or deformity. EXTREMITIES: No cyanosis, clubbing, or pedal edema. NEUROLOGICAL: Gross neurological examination did not reveal any focal deficits. SKIN: No rashes. no petechiae. - Labs CBC & Chem 7: 10/30/22 08:24 10/30/22 08:24 Labs: Abnormal Lab Results - Last 24 Hours (Table) 10/29/22 10/30/22 10/30/22 Range/Units 14:36 06:09 08:24 WBC 18.2 H (3.8-10.6) k/uL RBC 3.62 L (4.30-5.90) m/uL Hgb 10.5 L (13.0-17.5) gm/dL Hct 34.0 L (39.0-53.0) % MCHC 30.9 L (31.0-37.0) g/dL Sodium 136 L (137-145) mmol/L BUN 33 H (9-20) mg/dL Glucose 113 H (74-99) mg/dL POC Glucose (mg/dL) 139 H (70-110) mg/dL Calcium 8.2 L (8.4-10.2) mg/dL 10/30/22 Range/Units 08:24 WBC 15.2 H (3.8-10.6) k/uL RBC 3.63 L (4.30-5.90) m/uL Hgb 10.6 L (13.0-17.5) gm/dL Hct 35.1 L (39.0-53.0) % MCHC 30.1 L (31.0-37.0) g/dL Sodium (137-145) mmol/L BUN (9-20) mg/dL Glucose (74-99) mg/dL POC Glucose (mg/dL) (70-110) mg/dL Calcium (8.4-10.2) mg/dL Assessment and Plan Assessment: Acute CHF exacerbation, systolic, with ejection of 20-25% Paroxysmal A. fib and RVR, present on admission. Currently heart rate is controlled Low normal blood pressure, currently improved Hypertension Hyperlipidemia History of DVT/PE History of CVA/TIA Plan: Continue with amiodarone, oral dose per [employer] Continue with eliquis Continue with oral Lasix Cardiology cleared the patient Labs and medication were reviewed.. Continue same treatment. Continue with symptomatic treatment. Resume home medication. Monitor labs and vitals. DVT and GI prophylaxis. Further recommendations as per clinical course of the patient DVT prophylaxis: eliquis GI Prophylaxis: Ppi Prognosis is guarded Possible discharge soon to subacute rehab
[2022-10-30 11:52] LABS: Glucose,Whole Blood 116 mg/dL (70-110)
--- NOTE | 2022-10-30 12:53 | P.PN ---
Subjective Progress Note Date: 10/30/22 HISTORY OF PRESENT ILLNESS: This is an 87-year-old gentleman who is known to our service from before with a past medical history significant for permanent atrial fibrillation maintaining on oral anticoagulation as well as history of cardiomyopathy as well as valvular heart disease with mitral regurgitation and also pulmonary hypertension was brought from an extended care facility to the hospital for further cardiac evaluation. The patient is known to her service where he was seen recently in the hospital with mildly abnormal troponin and further investigation was performed including an echo revealed impaired LV function was EF between 30-35% was moderate MR and mild pulmonary hypertension and moderate tricuspid regurgitation. The patient was seen and evaluated in the emergency department. He is somewhat a poor historian and he was slightly lethargic. He lives with his at extended care facility. He stated that for the last few weeks he has been experiencing cough productive of sputum and also he has been more short of breath. No symptoms of any chest pain or chest discomfort and no dizziness or lightheadedness and no feeling of heart racing or fluttering or presyncope or syncope. This time he underwent an investigation including EKG showing atrial fibrillation. He also underwent a chest x-ray which showed findings consistent with heart failure. NT proBNP came in to be elevated at 10,000. The patient subsequently started on amiodarone IV because he was tachycardic where he was in A. fib with RVR and he remains on amiodarone IV. Oral anticoagulation was restarted again. When the patient was seen and examined this morning he did not look in overt congestive heart failure. His vitals showed low blood pressure with a systolic pressure in the 80s. His heart rate was around 110 beats per minutes in atrial fibrillation. The rest of the physical exam revealed a regular rhythm with a systolic murmur and he does have diminished breathing s ounds bilaterally was mild bilateral expiratory wheezing noted as well. 10/29/2022 Patient examined this morning at the bedside. Patient denies chest pain or pressure. He currently denies shortness of breath. Telemetry reveals atrial fibrillation with a heart rate ranging between 100-120. Recent echocardiogram performed reveals ejection fraction 20-25%. 10/30/2022 Patient examined this morning at the bedside. Patient denies chest pain or pressure. He denies shortness of breath. Telemetry reveals atrial fibrillation with controlled ventricular rate. The patient is up ambulating with physical therapy and tolerating well. PHYSICAL EXAM: VITAL SIGNS: Reviewed. GENERAL: Well-developed in no acute distress. NECK: Supple. No JVD or thyromegaly LUNGS: Respirations even and unlabored. Lungs diminished to auscultation bilaterally. HEART: Irregular rate and rhythm. S1 and S2 heard. Systolic murmur noted. EXTREMITIES: Normal range of motion. No clubbing or cyanosis. Peripheral pulses intact. 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 Salmon Further recommendations pending patient course Nurse practitioner note has been reviewed by physician. Signing provider agrees with the documented findings, assessment, and plan of care. Objective - Vital Signs Vital signs: Vital Signs Temp 98.7 F 10/30/22 08:46 Pulse 91 10/30/22 12:00 Resp 16 10/30/22 12:00 BP 107/63 10/30/22 12:00 Pulse Ox 96 10/30/22 12:00 FiO2 21 10/29/22 08:08 Intake & Output 10/29/22 10/30/22 10/30/22 18:59 06:59 18:59 Intake Total 390 480 Output Total 500 Balance 390 -500 480 Weight 71 kg 70.5 kg Intake: Oral 390 480 Output: Urine 500 Other: Voiding Method Indwelling Catheter Indwelling Catheter Indwelling Catheter # Bowel Movements 1 - Labs CBC & Chem 7: 10/30/22 08:24 10/30/22 08:24 Labs: Abnormal Lab Results - Last 24 Hours (Table) 10/29/22 10/30/22 10/30/22 Range/Units 14:36 06:09 08:24 WBC 18.2 H (3.8-10.6) k/uL RBC 3.62 L (4.30-5.90) m/uL Hgb 10.5 L (13.0-17.5) gm/dL Hct 34.0 L (39.0-53.0) % MCHC 30.9 L (31.0-37.0) g/dL Sodium 136 L (137-145) mmol/L BUN 33 H (9-20) mg/dL Glucose 113 H (74-99) mg/dL POC Glucose (mg/dL) 139 H (70-110) mg/dL Calcium 8.2 L (8.4-10.2) mg/dL 10/30/22 10/30/22 Range/Units 08:24 11:47 WBC 15.2 H (3.8-10.6) k/uL RBC 3.63 L (4.30-5.90) m/uL Hgb 10.6 L (13.0-17.5) gm/dL Hct 35.1 L (39.0-53.0) % MCHC 30.1 L (31.0-37.0) g/dL Sodium (137-145) mmol/L BUN (9-20) mg/dL Glucose (74-99) mg/dL POC Glucose (mg/dL) 116 H (70-110) mg/dL Calcium (8.4-10.2) mg/dL
--- NOTE | 2022-10-30 12:54 | CDI ---
Documentation Clarification Form Date: 10/30/2022 12:39:07 PM From: Marilee Santos RN CCDS Phone: [phone] Admit Date: 10/28/2022 5:46:00 AM Patient Name: Justo Bright Visit Number: [id number] Discharge Date: ATTENTION: The Clinical Documentation Specialists (CDI) and [facility] Coding Staff appreciate your assistance in clarifying documentation. Please respond to the clarification below the line at the bottom and electronically sign. The CDI & [facility] Coding staff will review the response and follow-up if needed. Please note: Queries are made part of the Legal Health Record. If you have any questions, please contact the author of this message via ITS. Dr. Kameron De Santiago A Left foot, stage II pressure ulcer is documented by Nursing 10/28, wound assessment. Based on this information and the findings below, is there an additional diagnosis that is clinically appropriate for this patient? History/Risk Factors: 87-year-old male presents to the ED with cough, whitish sputum, leg swelling and orthopnea. Medical History: CHF, CVA right sided weakness and HTN. 10/28, H&P. Clinical Indicators: Location: Left Foot Wound description: Stage II, photo taken. Treatment: Dressing check absorbant underpad hourly, Float heels and reposition every two hours. Consults: Is there an additional diagnosis that is clinically appropriate for this patient? [ ] Left Foot Pressure Ulcer Stage 2 POA [ ] Other condition, please specify [ ] Unable to determine Clinical Definitions: Stage 1 Pressure Ulcer: intact skin, non-blanching redness of local area Stage 2 Pressure Ulcer: Partial thickness, loss of dermis, pink wound bed Stage 3 Pressure Ulcer: Full thickness tissue loss Stage 4 Pressure Ulcer: Full thickness tissue loss with exposed bone, tendon, or muscle. Unstageable pressure ulcer: Full thickness tissue loss in which the base of the ulcer is covered by slough (yellow, moreno, ledesma, green or brown) and/or eschar (moreno, brown or black) in the wound bed. (Template Last Revised: October 2020) Left Foot Pressure Ulcer Stage 2 POA MTDD
[2022-10-30] MEDS: guaiFENesin-DM 100-10MG/5ML 10 ML CUP PO SCH ×3 (12:58→23:27)
--- NOTE | 2022-10-30 13:00 | CDI ---
Documentation Clarification Form Date: 10/30/2022 12:52:40 PM From: Marilee Santos RN CCDS Phone: [phone] Admit Date: 10/28/2022 5:46:00 AM Patient Name: Justo Bright Visit Number: [id number] Discharge Date: ATTENTION: The Clinical Documentation Specialists (CDI) and [facility] Coding Staff appreciate your assistance in clarifying documentation. Please respond to the clarification below the line at the bottom and electronically sign. The CDI & [facility] Coding staff will review the response and follow-up if needed. Please note: Queries are made part of the Legal Health Record. If you have any questions, please contact the author of this message via ITS. Dr. Kameron Almanzayx, stage II pressure ulcer is documented by Wound Care 10/28, nursing wound assessment. Based on this information and the findings below, is there an additional diagnosis that is clinically appropriate for this patient? History/Risk Factors: 87-year-old male presents to the ED with cough, whitish sputum, leg swelling and orthopnea. Medical History: CHF, CVA right sided weakness and HTN. 10/28, H&P. Clinical Indicators: Location: Coccyx Wound description: Stage 2 Treatment: Dressing check absorbant underpad hourly, Float heels and reposition every two hours. Is there an additional diagnosis that is clinically appropriate for this patient? [ ] Coccyx Pressure Ulcer Stage 2 POA [ ] Other condition, please specify [ ] Unable to determine Clinical Definitions: Stage 1 Pressure Ulcer: intact skin, non-blanching redness of local area Stage 2 Pressure Ulcer: Partial thickness, loss of dermis, pink wound bed Stage 3 Pressure Ulcer: Full thickness tissue loss Stage 4 Pressure Ulcer: Full thickness tissue loss with exposed bone, tendon, or muscle. Unstageable pressure ulcer: Full thickness tissue loss in which the base of the ulcer is covered by slough (yellow, moreno, ledesma, green or brown) and/or eschar (moreno, brown or black) in the wound bed. (Template Last Revised: October 2020) Coccyx Pressure Ulcer Stage 2 POA MTDD
--- NOTE | 2022-10-30 13:18 | CDI ---
Documentation Clarification Form Date: 10/30/2022 01:08 From: Marilee Santos RN CCDS Phone: [phone] Admit Date: 10/28/2022 5:46:00 AM Patient Name: Justo Bright Visit Number: [id number] Discharge Date: ATTENTION: The Clinical Documentation Specialists (CDI) and [facility] Coding Staff appreciate your assistance in clarifying documentation. Please respond to the clarification below the line at the bottom and electronically sign. The CDI & [facility] Coding staff will review the response and follow-up if needed. Please note: Queries are made part of the Legal Health Record. If you have any questions, please contact the author of this message via ITS. Dr. Melo E Anyi Malnutrition is documented 10/28, H&P. Additional clarification regarding the severity of malnutrition is requested. History/Risk Factors: 87-year-old male presents to the ED with cough, whitish sputum, leg swelling and orthopnea. Medical History: CHF, CVA right sided weakness and HTN. 10/28, H&P Clinical Indicators: Current BMI: 21.1k foot, 71kg Underweight Nutrition Intake: Poor 0-25% Physical findings: Stage II pressure injuries on foot and coccyx Nutritional Diagnosis: Increased Nutrient needs: Protein, Calories, Vitamin C and Zinc Related to: Increased metabolic demand for wound healing. Evidenced by: Pressure injuries Treatment: Dietary Consult: See above Supplements: Ensure Enlive TID; Ensure Plus TID Monitoring supplement intake and oral intake. Please clarify the type of malnutrition, if known: [ ] Mild Protein-Calorie Malnutrition [ ] Moderate Protein-Calorie Malnutrition [ ] Other condition, please specify [ ] Unable to Determine (Template Last Revised: October 2020) Moderate Protein-Calorie Malnutrition MTDD
[2022-10-30 16:58] LABS: Glucose,Whole Blood 115 mg/dL (70-110)
[2022-10-30 17:44] LABS: Appearance,Urine Clear (Clear); Bacteria,Urine Rare /hpf; Bilirubin,Urine Negative (Negative); Blood,Urine Moderate (Negative); Color,Urine Yellow; Glucose,Urine (UA) Negative (Negative); Ketones,Urine Negative (Negative); Leukocyte Esterase,Urine Moderate (Negative); Mucus,Urine Few /hpf; Nitrite,Urine Negative (Negative); Protein,Urine Negative (Negative); RBC,Urine 44 /hpf (0-5); Specific Gravity,Urine 1.015 (1.001-1.035); WBC,Urine 7 /hpf (0-5)
[2022-10-31] MEDS: ALBUTEROL HFA INHALER INHALATION SCH ×4 (01:42→21:16)
[2022-10-31] MEDS: SODIUM CHLORIDE 0.9% 1,000 ML IV SCH (05:48)
[2022-10-31] MEDS: guaiFENesin-DM 100-10MG/5ML 10 ML CUP PO SCH ×3 (08:10→23:13)
[2022-10-31] MEDS: ASPIRIN 81 MG PO SCH (08:11)
[2022-10-31] MEDS: PANTOPRAZOLE 40 MG TABLET PO SCH (08:11)
[2022-10-31] MEDS: APIXABAN 2.5 MG TABLET PO SCH ×2 (08:11→20:37)
[2022-10-31] MEDS: TAMSULOSIN 0.4 MG CAP.ER.24H PO SCH (08:11)
[2022-10-31] MEDS ORDERED: MIDODRINE 5 MG TAB PO SCH (08:29)
[2022-10-31] MEDS: SPIRONOLACTONE 25 MG TAB PO SCH (10:01)
[2022-10-31] MEDS: AMIODARONE 200 MG TAB PO SCH ×2 (10:01→20:37)
[2022-10-31] MEDS: POTASSIUM CHLORIDE ER 10 MEQ TAB.ER.PRT PO SCH ×2 (10:01→10:03)
[2022-10-31] MEDS: FUROSEMIDE 40 MG TAB PO SCH (10:01)
[2022-10-31] MEDS: METOPROLOL SUCCINATE (ER) 25 MG TAB.ER.24H PO SCH ×2 (10:01→20:37)
[2022-10-31 10:14] LABS: Calcium 8.4 mg/dL (8.4-10.2); Potassium 4.6 mmol/L (3.5-5.1)
--- NOTE | 2022-10-31 11:38 | P.PN ---
Subjective 87-year-old man sent here to have evaluation for a constellation of symptoms that are been coming on over the past hours today. There has been cough with some whitish sputum. Patient also has had some leg swelling. There was concerned about possibility of congestive heart failure developing. The patient denies having chest pain. He does acknowledge orthopnea. Patient underwent an investigation including EKG showing atrial fibrillation. He also underwent a chest x-ray which showed findings consistent with heart failure. NT proBNP came in to be elevated at 10,000. The patient subsequently started on amiodarone IV because he was tachycardic where he was in A. fib with RVR and he remains on amiodarone IV. Oral anticoagulation was restarted again. When the patient was seen and examined this morning he did not look in overt congestive heart failure. His vitals showed low blood pressure with a systolic pressure in the 80s. His heart rate was around 110 beats per minutes in atrial fibrillation. The rest of the physical exam revealed a regular rhythm with a systolic murmur and he does have diminished breathing sounds bilaterally was mild bilateral expiratory wheezing noted as well. 10/29/2022 Patient presents because of dyspnea and found to have acute CHF. His abdominal pain have also atrial fibrillation and blood pressure was borderline low on admission, patient seen by lamp cleaner He was treated with amiodarone drip for his A. fib and RVR and switched to oral amiodarone 400 mg today he came off his amiodarone drip. Discontinue it on liquids 2.5 and Lasix 40 mg daily. Also he is on home dose of aspirin 81 mg. Physical exam coughing. The chest x-ray. Also we will repeat WBC today. Echocardiogram from 09/2022 showing ejection fraction of 20-25% and moderate mitral regurgitation Patient came from custodial, possible early discharged to [facility] open discharged to finish his rehab. 10/30/2022 Patient awake alert, he said that his breathing is better and back to normal for him, still mildly tachypneic with coughing. Robitussin as needed. Denies chest pain. He feels generally weak but this could be due to aging. Patient however her blood pressure sore on the low side although it is improved, this morning 104/58. Patient's tachycardia is improving, he is saturating 94- 97% on room air. He does not use accessory muscles to breathe. And checked previous records, his blood pressure was better last year. Chest x- ray showing bilateral pleural effusion, pulmonary congestion. Howevercalcitonin is still pending and we will send for urine analysis today. In the meantime patient On metoprolol 25 mg, amiodarone 400 mg, home dose of liquids 2.5 mg and Lasix 40 mg by mouth daily. Discussed with staff 10/31/2022 Patient awake and alert, however he looks very tired, he was sitting in chair this morning, he denies chest pain, his breathing is stable. However her pressure remains on low side, this morning his bedside this was concerned about patient getting more hypotensive and more lethargic, midodrine was started today with holding parameters, with the plan to taper it down the community few days. Patient urinalysis was also suspicious for infection, patient was started on Rocephin and urine culture was sent. Has Carranza catheter in a Place Blood pressure improved currently 109/68. Remains on Lasix 40 mg by mouth daily, and home dose of eliquis 2.5 mg Objective - Vital Signs Vital signs: Vital Signs Temp 98.5 F 10/31/22 07:56 Pulse 98 10/31/22 07:56 Resp 16 10/31/22 07:56 BP 109/68 10/31/22 09:59 Pulse Ox 95 10/31/22 09:09 FiO2 21 10/29/22 08:08 Intake & Output 10/30/22 10/31/22 10/31/22 18:59 06:59 18:59 Intake Total 598 0 Output Total 550 200 400 Balance 48 -200 -400 Intake: Oral 598 0 Output: Urine 550 200 400 Other: Voiding Method Indwelling Catheter Indwelling Catheter Indwelling Catheter # Bowel Movements 1 - Exam -GENERAL: The patient is alert and oriented x3, not in any acute distress. Well developed, well nourished. Generally weak HEENT: Pupils are round and equally reacting to light. EOMI. No scleral icterus. No conjunctival pallor. Normocephalic, atraumatic. No pharyngeal erythema. No thyromegaly. CARDIOVASCULAR: S1 and S2 present. No murmurs, rubs, or gallops. -PULMONARY: Chest is clear to auscultation, no wheezing or crackles. Weak coughing ABDOMEN: Soft, nontender, nondistended, normoactive bowel sounds. No palpable organomegaly. MUSCULOSKELETAL: No joint swelling or deformity. EXTREMITIES: No cyanosis, clubbing, or pedal edema. NEUROLOGICAL: Gross neurological examination did not reveal any focal deficits. SKIN: No rashes. no petechiae. - Labs CBC & Chem 7: 10/30/22 08:24 10/31/22 09:32 Labs: Abnormal Lab Results - Last 24 Hours (Table) 10/30/22 10/30/22 10/30/22 Range/Units 08:24 11:47 16:51 Sodium (137-145) mmol/L BUN (9-20) mg/dL Glucose (74-99) mg/dL POC Glucose (mg/dL) 116 H 115 H (70-110) mg/dL Procalcitonin 0.14 H (0.02-0.09) ng/mL Urine Blood (Negative) Ur Leukocyte Esterase (Negative) Urine RBC (0-5) /hpf Urine WBC (0-5) /hpf Urine Bacteria (None) /hpf Urine Mucus (None) /hpf 10/30/22 10/31/22 Range/Units 17:21 09:32 Sodium 136 L (137-145) mmol/L BUN 39 H (9-20) mg/dL Glucose 131 H (74-99) mg/dL POC Glucose (mg/dL) (70-110) mg/dL Procalcitonin (0.02-0.09) ng/mL Urine Blood Moderate H (Negative) Ur Leukocyte Esterase Moderate H (Negative) Urine RBC 44 H (0-5) /hpf Urine WBC 7 H (0-5) /hpf Urine Bacteria Rare H (None) /hpf Urine Mucus Few H (None) /hpf Microbiology - Last 24 Hours (Table) 10/30/22 17:21 Urine Culture - Preliminary Urine,Catheterized Assessment and Plan Assessment: Acute CHF exacerbation, systolic, with ejection of 20-25% Paroxysmal A. fib and RVR, present on admission. Currently heart rate is controlled Possible acute renal tract infection Low normal blood pressure, currently improved Hypertension Hyperlipidemia History of DVT/PE History of CVA/TIA Plan: Continue with amiodarone, oral dose per General Duty Nurse Continue with eliquis Continue with oral Lasix Cardiology cleared the patient Labs and medication were reviewed.. Continue same treatment. Continue with symptomatic treatment. Resume home medication. Monitor labs and vitals. DVT and GI prophylaxis. Further recommendations as per clinical course of the patient DVT prophylaxis: eliquis GI Prophylaxis: Ppi Prognosis is guarded Possible discharge soon to subacute rehab
--- NOTE | 2022-10-31 12:45 | P.PN ---
Subjective Progress Note Date: 10/31/22 HISTORY OF PRESENT ILLNESS: This is an 87-year-old gentleman who is known to our service from before with a past medical history significant for permanent atrial fibrillation maintaining on oral anticoagulation as well as history of cardiomyopathy as well as valvular heart disease with mitral regurgitation and also pulmonary hypertension was brought from an extended care facility to the hospital for further cardiac evaluation. The patient is known to her service where he was seen recently in the hospital with mildly abnormal troponin and further investigation was performed including an echo revealed impaired LV function was EF between 30-35% was moderate MR and mild pulmonary hypertension and moderate tricuspid regurgitation. The patient was seen and evaluated in the emergency department. He is somewhat a poor historian and he was slightly lethargic. He lives with his at extended care facility. He stated that for the last few weeks he has been experiencing cough productive of sputum and also he has been more short of breath. No symptoms of any chest pain or chest discomfort and no dizziness or lightheadedness and no feeling of heart racing or fluttering or presyncope or syncope. This time he underwent an investigation including EKG showing atrial fibrillation. He also underwent a chest x-ray which showed findings consistent with heart failure. NT proBNP came in to be elevated at 10,000. The patient subsequently started on amiodarone IV because he was tachycardic where he was in A. fib with RVR and he remains on amiodarone IV. Oral anticoagulation was restarted again. When the patient was seen and examined this morning he did not look in overt congestive heart failure. His vitals showed low blood pressure with a systolic pressure in the 80s. His heart rate was around 110 beats per minutes in atrial fibrillation. The rest of the physical exam revealed a regular rhythm with a systolic murmur and he does have diminished breathing s ounds bilaterally was mild bilateral expiratory wheezing noted as well. 10/29/2022 Patient examined this morning at the bedside. Patient denies chest pain or pressure. He currently denies shortness of breath. Telemetry reveals atrial fibrillation with a heart rate ranging between 100-120. Recent echocardiogram performed reveals ejection fraction 20-25%. 10/30/2022 Patient examined this morning at the bedside. Patient denies chest pain or pressure. He denies shortness of breath. Telemetry reveals atrial fibrillation with controlled ventricular rate. The patient is up ambulating with physical therapy and tolerating well. 10/31/2022 Patient examined this morning. Patient is sitting up in the chair. He reports a productive cough. He currently denies shortness of breath. He denies chest pain or pressure. The patients pressure was running on the low side this mor darion and he was started on Midodrine per primary medicine. PHYSICAL EXAM: VITAL SIGNS: Reviewed. GENERAL: Well-developed in no acute distress. NECK: Supple. No JVD or thyromegaly LUNGS: Respirations even and unlabored. Lungs diminished to auscultation bilaterally. HEART: Irregular rate and rhythm. S1 and S2 heard. Systolic murmur noted. EXTREMITIES: Normal range of motion. No clubbing or cyanosis. Peripheral pulses intact. 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 Salmon Further recommendations pending patient course Nurse practitioner note has been reviewed by physician. Signing provider agrees with the documented findings, assessment, and plan of care. Objective - Vital Signs Vital signs: Vital Signs Temp 98.5 F 10/31/22 07:56 Pulse 87 10/31/22 12:00 Resp 16 10/31/22 12:00 BP 87/67 10/31/22 12:00 Pulse Ox 96 10/31/22 12:00 FiO2 21 10/29/22 08:08 Intake & Output 10/30/22 10/31/22 10/31/22 18:59 06:59 18:59 Intake Total 598 0 Output Total 550 200 400 Balance 48 -200 -400 Intake: Oral 598 0 Output: Urine 550 200 400 Other: Voiding Method Indwelling Catheter Indwelling Catheter Indwelling Catheter # Bowel Movements 1 - Labs CBC & Chem 7: 10/30/22 08:24 10/31/22 09:32 Labs: Abnormal Lab Results - Last 24 Hours (Table) 10/30/22 10/30/22 10/30/22 Range/Units 08:24 16:51 17:21 Sodium (137-145) mmol/L BUN (9-20) mg/dL Glucose (74-99) mg/dL POC Glucose (mg/dL) 115 H (70-110) mg/dL Procalcitonin 0.14 H (0.02-0.09) ng/mL Urine Blood Moderate H (Negative) Ur Leukocyte Esterase Moderate H (Negative) Urine RBC 44 H (0-5) /hpf Urine WBC 7 H (0-5) /hpf Urine Bacteria Rare H (None) /hpf Urine Mucus Few H (None) /hpf 10/31/22 Range/Units 09:32 Sodium 136 L (137-145) mmol/L BUN 39 H (9-20) mg/dL Glucose 131 H (74-99) mg/dL POC Glucose (mg/dL) (70-110) mg/dL Procalcitonin (0.02-0.09) ng/mL Urine Blood (Negative) Ur Leukocyte Esterase (Negative) Urine RBC (0-5) /hpf Urine WBC (0-5) /hpf Urine Bacteria (None) /hpf Urine Mucus (None) /hpf Microbiology - Last 24 Hours (Table) 10/30/22 17:21 Urine Culture - Preliminary Urine,Catheterized
[2022-10-31] MEDS: MIDODRINE 5 MG TAB PO SCH (17:18)
[2022-11-01] MEDS: ALBUTEROL HFA INHALER INHALATION SCH ×4 (02:29→21:12)
[2022-11-01] MEDS: SODIUM CHLORIDE 0.9% 1,000 ML IV SCH (06:15)
[2022-11-01] MEDS: MIDODRINE 5 MG TAB PO SCH (06:35)
[2022-11-01 07:08] LABS: Basophils % (A) 0 %; Eosinophils # (A) 0.1 k/uL (0-0.7); Eosinophils % (A) 1 %; HCT 33.6 % (39.0-53.0); HGB 10.2 gm/dL (13.0-17.5); Lymphocytes # (A) 0.9 k/uL (1.0-4.8); Lymphocytes % (A) 7 %; MCH 29.1 pg (25.0-35.0); MCHC 30.5 g/dL (31.0-37.0); MCV 95.4 fL (80.0-100.0); Monocytes # (A) 0.7 k/uL (0-1.0); Monocytes % (A) 5 %; Neutrophils # (A) 10.3 k/uL (1.3-7.7); Neutrophils % (A) 85 %; Platelet Count 321 k/uL (150-450); RBC 3.52 m/uL (4.30-5.90); RDW 14.8 % (11.5-15.5)
[2022-11-01 07:48] LABS: Calcium 8.4 mg/dL (8.4-10.2); Magnesium 2.4 mg/dL (1.6-2.3); Potassium 4.4 mmol/L (3.5-5.1)
[2022-11-01] MEDS: guaiFENesin-DM 100-10MG/5ML 10 ML CUP PO SCH ×3 (08:20→23:24)
[2022-11-01] MEDS: SPIRONOLACTONE 25 MG TAB PO SCH (08:20)
[2022-11-01] MEDS: PANTOPRAZOLE 40 MG TABLET PO SCH (08:20)
[2022-11-01] MEDS: ASPIRIN 81 MG PO SCH (08:20)
[2022-11-01] MEDS: AMIODARONE 200 MG TAB PO SCH ×2 (08:20→20:25)
[2022-11-01] MEDS: METOPROLOL SUCCINATE (ER) 25 MG TAB.ER.24H PO SCH ×2 (08:20→20:25)
[2022-11-01] MEDS: APIXABAN 2.5 MG TABLET PO SCH ×2 (08:20→20:25)
[2022-11-01] MEDS: TAMSULOSIN 0.4 MG CAP.ER.24H PO SCH (08:20)
[2022-11-01] MEDS: FUROSEMIDE 40 MG TAB PO SCH (08:20)
[2022-11-01] MEDS: POTASSIUM CHLORIDE ER 10 MEQ TAB.ER.PRT PO SCH (08:20)
[2022-11-01] MEDS ORDERED: FUROSEMIDE 10 MG/ML 4 ML VIAL IV STA (08:52)
--- NOTE | 2022-11-01 10:32 | P.PN ---
Subjective Progress Note Date: 11/01/22 HISTORY OF PRESENT ILLNESS: This is an 87-year-old gentleman who is known to our service from before with a past medical history significant for permanent atrial fibrillation maintaining on oral anticoagulation as well as history of cardiomyopathy as well as valvular heart disease with mitral regurgitation and also pulmonary hypertension was brought from an extended care facility to the hospital for further cardiac evaluation. The patient is known to her service where he was seen recently in the hospital with mildly abnormal troponin and further investigation was performed including an echo revealed impaired LV function was EF between 30-35% was moderate MR and mild pulmonary hypertension and moderate tricuspid regurgitation. The patient was seen and evaluated in the emergency department. He is somewhat a poor historian and he was slightly lethargic. He lives with his at extended care facility. He stated that for the last few weeks he has been experiencing cough productive of sputum and also he has been more short of breath. No symptoms of any chest pain or chest discomfort and no dizziness or lightheadedness and no feeling of heart racing or fluttering or presyncope or syncope. This time he underwent an investigation including EKG showing atrial fibrillation. He also underwent a chest x-ray which showed findings consistent with heart failure. NT proBNP came in to be elevated at 10,000. The patient subsequently started on amiodarone IV because he was tachycardic where he was in A. fib with RVR and he remains on amiodarone IV. Oral anticoagulation was restarted again. When the patient was seen and examined this morning he did not look in overt congestive heart failure. His vitals showed low blood pressure with a systolic pressure in the 80s. His heart rate was around 110 beats per minutes in atrial fibrillation. The rest of the physical exam revealed a regular rhythm with a systolic murmur and he does have diminished breathing s ounds bilaterally was mild bilateral expiratory wheezing noted as well. 10/29/2022 Patient examined this morning at the bedside. Patient denies chest pain or pressure. He currently denies shortness of breath. Telemetry reveals atrial fibrillation with a heart rate ranging between 100-120. Recent echocardiogram performed reveals ejection fraction 20-25%. 10/30/2022 Patient examined this morning at the bedside. Patient denies chest pain or pressure. He denies shortness of breath. Telemetry reveals atrial fibrillation with controlled ventricular rate. The patient is up ambulating with physical therapy and tolerating well. 10/31/2022 Patient examined this morning. Patient is sitting up in the chair. He reports a productive cough. He currently denies shortness of breath. He denies chest pain or pressure. The patients pressure was running on the low side this mor darion and he was started on Midodrine per primary medicine. 11/01/2022 Patient examined this morning sitting in the chair. He denies chest pain or pressure. Denies SOB. He reports a productive cough. Telemetry reveals atrial fibrillation with a heart rate around 105. PHYSICAL EXAM: VITAL SIGNS: Reviewed. GENERAL: Well-developed in no acute distress. NECK: Supple. No JVD or thyromegaly LUNGS: Respirations even and unlabored. Lungs diminished to auscultation bilaterally. HEART: Irregular rate and rhythm. S1 and S2 heard. Systolic murmur noted. EXTREMITIES: Normal range of motion. No clubbing or cyanosis. Peripheral pulses intact. 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 Salmon Further recommendations pending patient course Nurse practitioner note has been reviewed by physician. Signing provider agrees with the documented findings, assessment, and plan of care. Objective - Vital Signs Vital signs: Vital Signs Temp 98.0 F 11/01/22 08:05 Pulse 109 H 11/01/22 08:05 Resp 16 11/01/22 08:05 BP 90/59 11/01/22 08:05 Pulse Ox 96 11/01/22 08:19 FiO2 21 10/29/22 08:08 Intake & Output 10/31/22 11/01/22 11/01/22 18:59 06:59 18:59 Intake Total 118 Output Total 400 1100 Balance -282 -1100 Weight 70 kg Intake: Oral 118 Output: Urine 400 1100 Other: Voiding Method Indwelling Catheter Indwelling Catheter # Bowel Movements 1 - Labs CBC & Chem 7: 11/01/22 06:34 11/01/22 06:34 Labs: Abnormal Lab Results - Last 24 Hours (Table) 11/01/22 11/01/22 Range/Units 06:34 06:34 WBC 12.0 H (3.8-10.6) k/uL RBC 3.52 L (4.30-5.90) m/uL Hgb 10.2 L (13.0-17.5) gm/dL Hct 33.6 L (39.0-53.0) % MCHC 30.5 L (31.0-37.0) g/dL Neutrophils # 10.3 H (1.3-7.7) k/uL Lymphocytes # 0.9 L (1.0-4.8) k/uL Sodium 133 L (137-145) mmol/L BUN 40 H (9-20) mg/dL Glucose 111 H (74-99) mg/dL Magnesium 2.4 H (1.6-2.3) mg/dL Microbiology - Last 24 Hours (Table) 10/30/22 17:21 Urine Culture - Final Urine,Catheterized
--- NOTE | 2022-11-01 11:59 | P.PN ---
Subjective 87-year-old man sent here to have evaluation for a constellation of symptoms that are been coming on over the past hours today. There has been cough with some whitish sputum. Patient also has had some leg swelling. There was concerned about possibility of congestive heart failure developing. The patient denies having chest pain. He does acknowledge orthopnea. Patient underwent an investigation including EKG showing atrial fibrillation. He also underwent a chest x-ray which showed findings consistent with heart failure. NT proBNP came in to be elevated at 10,000. The patient subsequently started on amiodarone IV because he was tachycardic where he was in A. fib with RVR and he remains on amiodarone IV. Oral anticoagulation was restarted again. When the patient was seen and examined this morning he did not look in overt congestive heart failure. His vitals showed low blood pressure with a systolic pressure in the 80s. His heart rate was around 110 beats per minutes in atrial fibrillation. The rest of the physical exam revealed a regular rhythm with a systolic murmur and he does have diminished breathing sounds bilaterally was mild bilateral expiratory wheezing noted as well. 10/29/2022 Patient presents because of dyspnea and found to have acute CHF. 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 fib and RVR and switched to oral amiodarone 400 mg today he came off his amiodarone drip. Discontinue it on liquids 2.5 and Lasix 40 mg daily. Also he is on home dose of aspirin 81 mg. Physical exam coughing. The chest x-ray. Also we will repeat WBC today. Echocardiogram from 09/2022 showing ejection fraction of 20-25% and moderate mitral regurgitation Patient came from care home, possible early discharged to [facility] open discharged to finish his rehab. 10/30/2022 Patient awake alert, he said that his breathing is better and back to normal for him, still mildly tachypneic with coughing. Robitussin as needed. Denies chest pain. He feels generally weak but this could be due to aging. Patient however her blood pressure sore on the low side although it is improved, this morning 104/58. Patient's tachycardia is improving, he is saturating 94- 97% on room air. He does not use accessory muscles to breathe. And checked previous records, his blood pressure was better last year. Chest x- ray showing bilateral pleural effusion, pulmonary congestion. Howevercalcitonin is still pending and we will send for urine analysis today. In the meantime patient On metoprolol 25 mg, amiodarone 400 mg, home dose of liquids 2.5 mg and Lasix 40 mg by mouth daily. Discussed with staff 10/31/2022 Patient awake and alert, however he looks very tired, he was sitting in chair this morning, he denies chest pain, his breathing is stable. However her pressure remains on low side, this morning his bedside this was concerned about patient getting more hypotensive and more lethargic, midodrine was started today with holding parameters, with the plan to taper it down the community few days. Patient urinalysis was also suspicious for infection, patient was started on Rocephin and urine culture was sent. Has Carranza catheter in a Place Blood pressure improved currently 109/68. Remains on Lasix 40 mg by mouth daily, and home dose of eliquis 2.5 mg 11/01/2022 Patient improving slowly and gradually, today he states an outpatient in bed and he feels better. He is blood pressure is low normal since admission, and he remains stable, slightly tachycardic with heart rate around 109 but improving. Leukocytosis also improving significantly down to 12,000 after started on ceftriaxone. Patient received 1 exudates of IV Lasix today Cardiology input is appreciated. Possible discharge in 24-48 hours Objective - Vital Signs Vital signs: Vital Signs Temp 98.0 F 11/01/22 08:05 Pulse 109 H 11/01/22 08:05 Resp 16 11/01/22 08:05 BP 90/59 11/01/22 08:05 Pulse Ox 96 11/01/22 08:19 FiO2 21 10/29/22 08:08 Intake & Output 10/31/22 11/01/22 11/01/22 18:59 06:59 18:59 Intake Total 118 Output Total 400 1100 Balance -282 -1100 Weight 70 kg Intake: Oral 118 Output: Urine 400 1100 Other: Voiding Method Indwelling Catheter Indwelling Catheter Indwelling Catheter # Bowel Movements 1 - Exam -GENERAL: The patient is alert and oriented x3, not in any acute distress. Well developed, well nourished. Generally weak HEENT: Pupils are round and equally reacting to light. EOMI. No scleral icterus. No conjunctival pallor. Normocephalic, atraumatic. No pharyngeal erythema. No thyromegaly. CARDIOVASCULAR: S1 and S2 present. No murmurs, rubs, or gallops. -PULMONARY: Chest is clear to auscultation, no wheezing or crackles. Weak coughing ABDOMEN: Soft, nontender, nondistended, normoactive bowel sounds. No palpable organomegaly. MUSCULOSKELETAL: No joint swelling or deformity. EXTREMITIES: No cyanosis, clubbing, or pedal edema. NEUROLOGICAL: Gross neurological examination did not reveal any focal deficits. SKIN: No rashes. no petechiae. - Labs CBC & Chem 7: 11/01/22 06:34 11/01/22 06:34 Labs: Abnormal Lab Results - Last 24 Hours (Table) 11/01/22 11/01/22 Range/Units 06:34 06:34 WBC 12.0 H (3.8-10.6) k/uL RBC 3.52 L (4.30-5.90) m/uL Hgb 10.2 L (13.0-17.5) gm/dL Hct 33.6 L (39.0-53.0) % MCHC 30.5 L (31.0-37.0) g/dL Neutrophils # 10.3 H (1.3-7.7) k/uL Lymphocytes # 0.9 L (1.0-4.8) k/uL Sodium 133 L (137-145) mmol/L BUN 40 H (9-20) mg/dL Glucose 111 H (74-99) mg/dL Magnesium 2.4 H (1.6-2.3) mg/dL Microbiology - Last 24 Hours (Table) 10/30/22 17:21 Urine Culture - Final Urine,Catheterized Assessment and Plan Assessment: Acute CHF exacerbation, systolic, with ejection of 20-25% Paroxysmal A. fib and RVR, present on admission. Currently heart rate is controlled Possible acute renal tract infection Low normal blood pressure, currently improved Hypertension Hyperlipidemia History of DVT/PE History of CVA/TIA Plan: Continue with amiodarone, oral dose Continue with eliquis Continue with oral Lasix Cardiology cleared the patient Labs and medication were reviewed.. Continue same treatment. Continue with symptomatic treatment. Resume home medication. Monitor labs and vitals. DVT and GI prophylaxis. Further recommendations as per clinical course of the patient DVT prophylaxis: eliquis GI Prophylaxis: Ppi Prognosis is guarded Possible discharge soon to subacute rehab
[2022-11-02] MEDS: ALBUTEROL HFA INHALER INHALATION SCH ×4 (08:08→20:14)
[2022-11-02] MEDS: guaiFENesin-DM 100-10MG/5ML 10 ML CUP PO SCH (08:35)
[2022-11-02] MEDS: ASPIRIN 81 MG PO SCH (08:35)
[2022-11-02] MEDS: AMIODARONE 200 MG TAB PO SCH ×2 (08:35→20:06)
[2022-11-02] MEDS: METOPROLOL SUCCINATE (ER) 25 MG TAB.ER.24H PO SCH ×2 (08:35→20:06)
[2022-11-02] MEDS: POTASSIUM CHLORIDE ER 10 MEQ TAB.ER.PRT PO SCH (08:35)
[2022-11-02] MEDS: TAMSULOSIN 0.4 MG CAP.ER.24H PO SCH (08:35)
[2022-11-02] MEDS: PANTOPRAZOLE 40 MG TABLET PO SCH (08:35)
[2022-11-02] MEDS: SPIRONOLACTONE 25 MG TAB PO SCH (08:35)
[2022-11-02] MEDS: FUROSEMIDE 40 MG TAB PO SCH (08:35)
[2022-11-02] MEDS: APIXABAN 2.5 MG TABLET PO SCH ×2 (08:35→20:06)
--- NOTE | 2022-11-02 09:00 | XR ---
EXAMINATION TYPE: XR chest 1V DATE OF EXAM: 11/02/2022 COMPARISON: 02/15 HISTORY: Shortness of breath TECHNIQUE: Single frontal view of the chest is obtained. FINDINGS: The heart is enlarged bilateral consolidation and small effusion. Arthropathy shoulders. N o pneumothorax. Chronic rib cage deformities. Findings suggest mild COPD. IMPRESSION: 1. Bilateral infiltrate and pleural effusion superimposed on a background of COPD. Correlate for mild CHF otherwise consider pneumonia.
--- NOTE | 2022-11-02 10:34 | P.PN ---
Subjective Progress Note Date: 11/02/22 HISTORY OF PRESENT ILLNESS: This is an 87-year-old gentleman who is known to our service from before with a past medical history significant for permanent atrial fibrillation maintaining on oral anticoagulation as well as history of cardiomyopathy as well as valvular heart disease with mitral regurgitation and also pulmonary hypertension was brought from an extended care facility to the hospital for further cardiac evaluation. The patient is known to her service where he was seen recently in the hospital with mildly abnormal troponin and further investigation was performed including an echo revealed impaired LV function was EF between 30-35% was moderate MR and mild pulmonary hypertension and moderate tricuspid regurgitation. The patient was seen and evaluated in the emergency department. He is somewhat a poor historian and he was slightly lethargic. He lives with his at extended care facility. He stated that for the last few weeks he has been experiencing cough productive of sputum and also he has been more short of breath. No symptoms of any chest pain or chest discomfort and no dizziness or lightheadedness and no feeling of heart racing or fluttering or presyncope or syncope. This time he underwent an investigation including EKG showing atrial fibrillation. He also underwent a chest x-ray which showed findings consistent with heart failure. NT proBNP came in to be elevated at 10,000. The patient subsequently started on amiodarone IV because he was tachycardic where he was in A. fib with RVR and he remains on amiodarone IV. Oral anticoagulation was restarted again. When the patient was seen and examined this morning he did not look in overt congestive heart failure. His vitals showed low blood pressure with a systolic pressure in the 80s. His heart rate was around 110 beats per minutes in atrial fibrillation. The rest of the physical exam revealed a regular rhythm with a systolic murmur and he does have diminished breathing s ounds bilaterally was mild bilateral expiratory wheezing noted as well. 10/29/2022 Patient examined this morning at the bedside. Patient denies chest pain or pressure. He currently denies shortness of breath. Telemetry reveals atrial fibrillation with a heart rate ranging between 100-120. Recent echocardiogram performed reveals ejection fraction 20-25%. 10/30/2022 Patient examined this morning at the bedside. Patient denies chest pain or pressure. He denies shortness of breath. Telemetry reveals atrial fibrillation with controlled ventricular rate. The patient is up ambulating with physical therapy and tolerating well. 10/31/2022 Patient examined this morning. Patient is sitting up in the chair. He reports a productive cough. He currently denies shortness of breath. He denies chest pain or pressure. The patients pressure was running on the low side this mor darion and he was started on Midodrine per primary medicine. 11/01/2022 Patient examined this morning sitting in the chair. He denies chest pain or pressure. Denies SOB. He reports a productive cough. Telemetry reveals atrial fibrillation with a heart rate around 105. 11/02/2022 Patient examined this morning. Patient is sitting up in the chair. He denies chest pain or pressure. He reports mild soreness of breath. He reports a productive cough that is worse than yesterday. Telemetry reveals atrial fibrillation with controlled ventricular rates. Blood pressures are running in the 90s. PHYSICAL EXAM: VITAL SIGNS: Reviewed. GENERAL: Well-developed in no acute distress. NECK: Supple. No JVD or thyromegaly LUNGS: Respirations even and unlabored. Lungs diminished to auscultation bilaterally, frequent coughing during examination. HEART: Irregular rate and rhythm. S1 and S2 heard. Systolic murmur noted. EXTREMITIES: Normal range of motion. No clubbing or cyanosis. Peripheral pulses intact. 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 Await results. Continue current cardiac medications Continue telemetry monitoring Continue to monitor blood pressure Started on Midodrine per primary medicine two days ago Recommend resuming Lisinopril when BP able to tolerate Patient to follow up post discharge with Dr. Salmon Further recommendations pending patient course Nurse practitioner note has been reviewed by physician. Signing provider agrees with the documented findings, assessment, and plan of care. Objective - Vital Signs Vital signs: Vital Signs Temp 97.8 F 11/02/22 08:00 Pulse 87 11/02/22 08:00 Resp 18 11/02/22 08:00 BP 90/58 11/02/22 08:00 Pulse Ox 95 11/02/22 08:08 FiO2 21 10/29/22 08:08 Intake & Output 11/01/22 11/02/22 11/02/22 18:59 06:59 18:59 Intake Total 360 240 Output Total 1250 550 Balance -890 -550 240 Intake: Oral 360 240 Output: Urine 1250 550 Other: Voiding Method Indwelling Catheter Indwelling Catheter # Bowel Movements 1 - Labs CBC & Chem 7: 11/01/22 06:34 11/01/22 06:34 Labs: Microbiology - Last 24 Hours (Table) 10/30/22 17:21 Urine Culture - Final Urine,Catheterized
[2022-11-02] MEDS: PIPERACILLIN-TAZOBACTAM 3.375 GM in SODIUM CHLORIDE 0.9% 100 ML IVPB SCH ×2 (13:33→20:06)
[2022-11-02] MEDS: ONDANSETRON 4 MG/2 ML VIAL IVP PRN (13:33)
--- NOTE | 2022-11-02 22:17 | P.PN ---
Subjective 87-year-old man sent here to have evaluation for a constellation of symptoms that are been coming on over the past hours today. There has been cough with some whitish sputum. Patient also has had some leg swelling. There was concerned about possibility of congestive heart failure developing. The patient denies having chest pain. He does acknowledge orthopnea. Patient underwent an investigation including EKG showing atrial fibrillation. He also underwent a chest x-ray which showed findings consistent with heart failure. NT proBNP came in to be elevated at 10,000. The patient subsequently started on amiodarone IV because he was tachycardic where he was in A. fib with RVR and he remains on amiodarone IV. Oral anticoagulation was restarted again. When the patient was seen and examined this morning he did not look in overt congestive heart failure. His vitals showed low blood pressure with a systolic pressure in the 80s. His heart rate was around 110 beats per minutes in atrial fibrillation. The rest of the physical exam revealed a regular rhythm with a systolic murmur and he does have diminished breathing sounds bilaterally was mild bilateral expiratory wheezing noted as well. 10/29/2022 Patient presents because of dyspnea and found to have acute CHF. 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 fib and RVR and switched to oral amiodarone 400 mg today he came off his amiodarone drip. Discontinue it on liquids 2.5 and Lasix 40 mg daily. Also he is on home dose of aspirin 81 mg. Physical exam coughing. The chest x-ray. Also we will repeat WBC today. Echocardiogram from 09/2022 showing ejection fraction of 20-25% and moderate mitral regurgitation Patient came from halfway, possible early discharged to [facility] open discharged to finish his rehab. 10/30/2022 Patient awake alert, he said that his breathing is better and back to normal for him, still mildly tachypneic with coughing. Robitussin as needed. Denies chest pain. He feels generally weak but this could be due to aging. Patient however her blood pressure sore on the low side although it is improved, this morning 104/58. Patient's tachycardia is improving, he is saturating 94- 97% on room air. He does not use accessory muscles to breathe. And checked previous records, his blood pressure was better last year. Chest x- ray showing bilateral pleural effusion, pulmonary congestion. Howevercalcitonin is still pending and we will send for urine analysis today. In the meantime patient On metoprolol 25 mg, amiodarone 400 mg, home dose of liquids 2.5 mg and Lasix 40 mg by mouth daily. Discussed with staff 10/31/2022 Patient awake and alert, however he looks very tired, he was sitting in chair this morning, he denies chest pain, his breathing is stable. However her pressure remains on low side, this morning his bedside this was concerned about patient getting more hypotensive and more lethargic, midodrine was started today with holding parameters, with the plan to taper it down the community few days. Patient urinalysis was also suspicious for infection, patient was started on Rocephin and urine culture was sent. Has Carranza catheter in a Place Blood pressure improved currently 109/68. Remains on Lasix 40 mg by mouth daily, and home dose of eliquis 2.5 mg 11/01/2022 Patient improving slowly and gradually, today he states an outpatient in bed and he feels better. He is blood pressure is low normal since admission, and he remains stable, slightly tachycardic with heart rate around 109 but improving. Leukocytosis also improving significantly down to 12,000 after started on ceftriaxone. Patient received 1 exudates of IV Lasix today Cardiology input is appreciated. Possible discharge in 24-48 hours 11/02/2022 Patient today was still complaining of from some respiratory difficulty with ongoing significant coughing We obtained repeat chest x-ray which showed worsening infiltrates in both sides while he is on ceftriaxone, most likely patient has gram-negative pneumonia secondary to hospital-acquired pneumonia Return to change antibiotics to Zosyn with close monitoring Poleyard Supervisor on the case Objective - Vital Signs Vital signs: Vital Signs Temp 97.8 F 11/02/22 19:45 Pulse 69 11/02/22 19:45 Resp 18 11/02/22 19:45 BP 93/57 11/02/22 19:45 Pulse Ox 96 11/02/22 19:45 FiO2 21 10/29/22 08:08 Intake & Output 11/02/22 11/02/22 11/03/22 06:59 18:59 06:59 Intake Total 480 Output Total 550 800 Balance -550 -320 Weight 70 kg Intake: Oral 480 Output: Urine 550 800 Other: Voiding Method Indwelling Catheter Indwelling Catheter # Bowel Movements 1 0 - Exam -GENERAL: The patient is alert and oriented x3, not in any acute distress. Well developed, well nourished. Generally weak HEENT: Pupils are round and equally reacting to light. EOMI. No scleral icterus. No conjunctival pallor. Normocephalic, atraumatic. No pharyngeal erythema. No thyromegaly. CARDIOVASCULAR: S1 and S2 present. No murmurs, rubs, or gallops. -PULMONARY: Chest is clear to auscultation, no wheezing or crackles. Weak coughing ABDOMEN: Soft, nontender, nondistended, normoactive bowel sounds. No palpable organomegaly. MUSCULOSKELETAL: No joint swelling or deformity. EXTREMITIES: No cyanosis, clubbing, or pedal edema. NEUROLOGICAL: Gross neurological examination did not reveal any focal deficits. SKIN: No rashes. no petechiae. - Labs CBC & Chem 7: 11/01/22 06:34 11/01/22 06:34 Assessment and Plan Assessment: Hospital-acquired pneumonia most likely secondary to gram-negative bacteria Acute CHF exacerbation, systolic, with ejection of 20-25% Paroxysmal A. fib and RVR, present on admission. Currently heart rate is controlled Low normal blood pressure, currently improved Hypertension Hyperlipidemia History of DVT/PE History of CVA/TIA Plan: Change antibiotics to Zosyn Continue with amiodarone, oral dose Continue with eliquis Continue with oral Lasix Cardiology cleared the patient Labs and medication were reviewed.. Continue same treatment. Continue with symptomatic treatment. Resume home medication. Monitor labs and vitals. DVT and GI prophylaxis. Further recommendations as per clinical course of the patient DVT prophylaxis: eliquis GI Prophylaxis: Ppi Prognosis is guarded Possible discharge soon to subacute rehab
[2022-11-03] MEDS: PIPERACILLIN-TAZOBACTAM 3.375 GM in SODIUM CHLORIDE 0.9% 100 ML IVPB SCH ×3 (04:06→20:28)
[2022-11-03 07:26] LABS: Basophils % (A) 0 %; Eosinophils # (A) 0.1 k/uL (0-0.7); Eosinophils % (A) 1 %; HCT 30.8 % (39.0-53.0); HGB 9.6 gm/dL (13.0-17.5); Hypochromasia Slight; Lymphocytes # (A) 0.9 k/uL (1.0-4.8); Lymphocytes % (A) 8 %; MCH 29.5 pg (25.0-35.0); MCHC 31.2 g/dL (31.0-37.0); MCV 94.6 fL (80.0-100.0); Mean Platelet Volume 8.9; Monocytes # (A) 0.5 k/uL (0-1.0); Monocytes % (A) 5 %; Neutrophils # (A) 8.9 k/uL (1.3-7.7); Neutrophils % (A) 85 %; Platelet Count 320 k/uL (150-450); RBC 3.26 m/uL (4.30-5.90); RDW 14.6 % (11.5-15.5); WBC 10.5 k/uL (3.8-10.6)
[2022-11-03 07:37] LABS: Calcium 8.5 mg/dL (8.4-10.2); Potassium 4.6 mmol/L (3.5-5.1)
[2022-11-03] MEDS: ALBUTEROL HFA INHALER INHALATION SCH ×4 (07:55→21:46)
[2022-11-03] MEDS: METOPROLOL SUCCINATE (ER) 25 MG TAB.ER.24H PO SCH ×2 (08:35→20:13)
[2022-11-03] MEDS: APIXABAN 2.5 MG TABLET PO SCH ×2 (08:35→20:28)
[2022-11-03] MEDS: TAMSULOSIN 0.4 MG CAP.ER.24H PO SCH (08:35)
[2022-11-03] MEDS: SPIRONOLACTONE 25 MG TAB PO SCH (08:35)
[2022-11-03] MEDS: POTASSIUM CHLORIDE ER 10 MEQ TAB.ER.PRT PO SCH (08:35)
[2022-11-03] MEDS: PANTOPRAZOLE 40 MG TABLET PO SCH (08:35)
[2022-11-03] MEDS: FUROSEMIDE 40 MG TAB PO SCH (08:35)
[2022-11-03] MEDS: ASPIRIN 81 MG PO SCH (08:35)
[2022-11-03] MEDS: AMIODARONE 200 MG TAB PO SCH ×2 (08:35→20:29)
--- NOTE | 2022-11-03 12:35 | P.PN ---
Subjective 87-year-old man sent here to have evaluation for a constellation of symptoms that are been coming on over the past hours today. There has been cough with some whitish sputum. Patient also has had some leg swelling. There was concerned about possibility of congestive heart failure developing. The patient denies having chest pain. He does acknowledge orthopnea. Patient underwent an investigation including EKG showing atrial fibrillation. He also underwent a chest x-ray which showed findings consistent with heart failure. NT proBNP came in to be elevated at 10,000. The patient subsequently started on amiodarone IV because he was tachycardic where he was in A. fib with RVR and he remains on amiodarone IV. Oral anticoagulation was restarted again. When the patient was seen and examined this morning he did not look in overt congestive heart failure. His vitals showed low blood pressure with a systolic pressure in the 80s. His heart rate was around 110 beats per minutes in atrial fibrillation. The rest of the physical exam revealed a regular rhythm with a systolic murmur and he does have diminished breathing sounds bilaterally was mild bilateral expiratory wheezing noted as well. 10/29/2022 Patient presents because of dyspnea and found to have acute CHF. His abdominal pain have also atrial fibrillation and blood pressure was borderline low on admission, patient seen by relocation manager He was treated with amiodarone drip for his A. fib and RVR and switched to oral amiodarone 400 mg today he came off his amiodarone drip. Discontinue it on liquids 2.5 and Lasix 40 mg daily. Also he is on home dose of aspirin 81 mg. Physical exam coughing. The chest x-ray. Also we will repeat WBC today. Echocardiogram from 09/2022 showing ejection fraction of 20-25% and moderate mitral regurgitation Patient came from retirement, possible early discharged to [facility] open discharged to finish his rehab. 10/30/2022 Patient awake alert, he said that his breathing is better and back to normal for him, still mildly tachypneic with coughing. Robitussin as needed. Denies chest pain. He feels generally weak but this could be due to aging. Patient however her blood pressure sore on the low side although it is improved, this morning 104/58. Patient's tachycardia is improving, he is saturating 94- 97% on room air. He does not use accessory muscles to breathe. And checked previous records, his blood pressure was better last year. Chest x- ray showing bilateral pleural effusion, pulmonary congestion. Howevercalcitonin is still pending and we will send for urine analysis today. In the meantime patient On metoprolol 25 mg, amiodarone 400 mg, home dose of liquids 2.5 mg and Lasix 40 mg by mouth daily. Discussed with staff 10/31/2022 Patient awake and alert, however he looks very tired, he was sitting in chair this morning, he denies chest pain, his breathing is stable. However her pressure remains on low side, this morning his bedside this was concerned about patient getting more hypotensive and more lethargic, midodrine was started today with holding parameters, with the plan to taper it down the community few days. Patient urinalysis was also suspicious for infection, patient was started on Rocephin and urine culture was sent. Has Carranza catheter in a Place Blood pressure improved currently 109/68. Remains on Lasix 40 mg by mouth daily, and home dose of eliquis 2.5 mg 11/01/2022 Patient improving slowly and gradually, today he states an outpatient in bed and he feels better. He is blood pressure is low normal since admission, and he remains stable, slightly tachycardic with heart rate around 109 but improving. Leukocytosis also improving significantly down to 12,000 after started on ceftriaxone. Patient received 1 exudates of IV Lasix today Cardiology input is appreciated. Possible discharge in 24-48 hours 11/02/2022 Patient today was still complaining of from some respiratory difficulty with ongoing significant coughing We obtained repeat chest x-ray which showed worsening infiltrates in both sides while he is on ceftriaxone, most likely patient has gram-negative pneumonia secondary to hospital-acquired pneumonia Return to change antibiotics to Zosyn with close monitoring Gambling Broker on the case 11/03/2021 Patient is awake and alert, still have little tachypnea and dyspnea also a still coughing. Yesterday chest x-ray was worse showing pneumonia his pro-calcitonin is slightly elevated 0.17. His antibiotic was adjusted to Zosyn. His creatinine went up slightly 1.4 today, is slightly hypotensive and bradycardic and therefore would lower the dose of metoprolol. Carranza catheter in place. And medication were reviewed. We'll try to avoid nephrotoxic medicatio ns. Check labs in the morning cardiology was is doing well Also we will lower the dose of Lasix to 20 mg daily Objective - Vital Signs Vital signs: Vital Signs Temp 97.5 F L 11/03/22 08:23 Pulse 64 11/03/22 11:41 Resp 18 11/03/22 11:41 BP 98/58 11/03/22 11:41 Pulse Ox 95 11/03/22 11:41 FiO2 21 11/03/22 07:56 Intake & Output 11/02/22 11/03/22 11/03/22 18:59 06:59 18:59 Intake Total 480 240 240 Output Total 800 750 Balance -320 -510 240 Weight 70 kg 69.5 kg Intake: Oral 480 240 240 Output: Urine 800 750 Other: Voiding Method Indwelling Catheter Indwelling Catheter Indwelling Catheter # Bowel Movements 0 0 - Exam -GENERAL: The patient is alert and oriented x3, not in any acute distress. Well developed, well nourished. Generally weak HEENT: Pupils are round and equally reacting to light. EOMI. No scleral icterus. No conjunctival pallor. Normocephalic, atraumatic. No pharyngeal erythema. No thyromegaly. CARDIOVASCULAR: S1 and S2 present. No murmurs, rubs, or gallops. -PULMONARY: Chest is clear to auscultation, no wheezing or crackles. Weak coughing ABDOMEN: Soft, nontender, nondistended, normoactive bowel sounds. No palpable organomegaly. MUSCULOSKELETAL: No joint swelling or deformity. EXTREMITIES: No cyanosis, clubbing, or pedal edema. NEUROLOGICAL: Gross neurological examination did not reveal any focal deficits. SKIN: No rashes. no petechiae. - Labs CBC & Chem 7: 11/03/22 07:06 11/03/22 07:06 Labs: Abnormal Lab Results - Last 24 Hours (Table) 11/03/22 11/03/22 11/03/22 Range/Units 07:06 07:06 07:06 RBC 3.26 L (4.30-5.90) m/uL Hgb 9.6 L (13.0-17.5) gm/dL Hct 30.8 L (39.0-53.0) % Neutrophils # 8.9 H (1.3-7.7) k/uL Lymphocytes # 0.9 L (1.0-4.8) k/uL Carbon Dioxide 32 H (22-30) mmol/L BUN 41 H (9-20) mg/dL Creatinine 1.41 H (0.66-1.25) mg/dL Procalcitonin 0.17 H (0.02-0.09) ng/mL Assessment and Plan Assessment: Hospital-acquired pneumonia most likely secondary to gram-negative bacteria Acute CHF exacerbation, systolic, with ejection of 20-25% Paroxysmal A. fib and RVR, present on admission. Currently heart rate is controlled Mild acute kidney injury Low normal blood pressure, currently improved Hypertension Hyperlipidemia History of DVT/PE History of CVA/TIA Plan: Change antibiotics to Zosyn Continue with amiodarone, oral dose Continue with eliquis Continue with oral Lasix, atorvastatin 20 mg daily Lower metoprolol to 12.5 mg daily. And monitor blood pressure and heart rate. Cardiology cleared the patient Labs and medication were reviewed.. Continue same treatment. Continue with symptomatic treatment. Resume home medication. Monitor labs and vitals. DVT and GI prophylaxis. Further recommendations as per clinical course of the patient DVT prophylaxis: eliquis GI Prophylaxis: Ppi Prognosis is guarded Possible discharge soon to subacute rehab
--- NOTE | 2022-11-03 12:51 | P.PN ---
Subjective Progress Note Date: 11/03/22 PROGRESS NOTE The patient is an 87-year-old male with a known history of cardiomyopathy, moderate mitral regurgitation, permanent atrial fibrillation who presented with symptoms progressive dyspnea and peripheral edema. He's feeling better overall today. He denies any chest discomfort, dizziness or palpitations. He denies any nausea. He feels stronger. His cough is better. His atrial fibrillation rate is under good control. Medications: Amiodarone 400 mg twice a day, Eliquis 2.5 mg twice a day, metoprolol succinate 12.5 mg twice a day, spironolactone 25 mg daily, Lasix 40 mg daily, Flomax PHYSICAL EXAMINATION: Blood pressure 102/60 heart rate 70 LUNGS: Clear to auscultation HEART: Irregular rate and rhythm, S1, S2. No S3. Holosystolic murmur ABDOMEN: Soft, nontender, no organomegaly EXTREMETIES: 1+ edema LAB: BUN 41, creatinine 1.41, hemoglobin 9.6 IMPRESSION: 1. CHF with reduced ejection fraction 2. Permanent atrial fibrillation, anticoagulated 3. Hospital-acquired pneumonia 4. Acute kidney injury PLAN: 1. Continue present dose of diuretics 2. Add Farxiga 3. Follow renal functions 4. Follow blood pressure 5. Decrease amiodarone Objective - Vital Signs Vital signs: Vital Signs Temp 97.5 F L 11/03/22 08:23 Pulse 64 11/03/22 11:41 Resp 18 11/03/22 11:41 BP 98/58 11/03/22 11:41 Pulse Ox 95 11/03/22 11:41 FiO2 21 11/03/22 07:56 Intake & Output 11/02/22 11/03/22 11/03/22 18:59 06:59 18:59 Intake Total 480 240 240 Output Total 800 750 Balance -320 -510 240 Weight 70 kg 69.5 kg Intake: Oral 480 240 240 Output: Urine 800 750 Other: Voiding Method Indwelling Catheter Indwelling Catheter Indwelling Catheter # Bowel Movements 0 0 - Labs CBC & Chem 7: 11/03/22 07:06 11/03/22 07:06 Labs: Abnormal Lab Results - Last 24 Hours (Table) 11/03/22 11/03/22 11/03/22 Range/Units 07:06 07:06 07:06 RBC 3.26 L (4.30-5.90) m/uL Hgb 9.6 L (13.0-17.5) gm/dL Hct 30.8 L (39.0-53.0) % Neutrophils # 8.9 H (1.3-7.7) k/uL Lymphocytes # 0.9 L (1.0-4.8) k/uL Carbon Dioxide 32 H (22-30) mmol/L BUN 41 H (9-20) mg/dL Creatinine 1.41 H (0.66-1.25) mg/dL Procalcitonin 0.17 H (0.02-0.09) ng/mL
[2022-11-03] MEDS: DAPAGLIFLOZIN PROPANEDIOL 10 MG TABLET PO SCH (13:43)
--- NOTE | 2022-11-03 17:12 | XR ---
KUB. HISTORY: Abdominal pain. COMPARISON: None. TECHNIQUE: 2 supine views of the abdomen were obtained. FINDINGS: The bowel gas pattern is nonspecific and there is no evidence of obstruction. There is a stoma in the left lower quadrant of the abdomen. There is a large amount of stool within the colon. No suspicious abdominal or pelvic calcifications are seen. The osseous structures are intact. IMPRESSION: Nonspecific abdomen without evidence of free air or obstruction. Large amount of stool within the col on.
[2022-11-03] MEDS: guaiFENesin-DM 100-10MG/5ML 10 ML CUP PO SCH ×2 (17:19→20:29)
[2022-11-03] MEDS ORDERED: polyethylene glycoL 3350 17 GM POWD.PACK PO STA (18:06)
[2022-11-03] MEDS: DOCUSATE 100 MG CAP PO SCH (20:28)
[2022-11-04] MEDS: PIPERACILLIN-TAZOBACTAM 3.375 GM in SODIUM CHLORIDE 0.9% 100 ML IVPB SCH ×3 (03:19→20:48)
[2022-11-04 07:55] LABS: Basophils % (A) 0 %; Eosinophils # (A) 0.1 k/uL (0-0.7); Eosinophils % (A) 1 %; HCT 31.1 % (39.0-53.0); HGB 9.8 gm/dL (13.0-17.5); Hypochromasia Slight; Lymphocytes # (A) 0.7 k/uL (1.0-4.8); Lymphocytes % (A) 7 %; MCH 29.6 pg (25.0-35.0); MCHC 31.6 g/dL (31.0-37.0); MCV 93.8 fL (80.0-100.0); Monocytes # (A) 0.6 k/uL (0-1.0); Monocytes % (A) 6 %; Neutrophils # (A) 9.2 k/uL (1.3-7.7); Neutrophils % (A) 86 %; Platelet Count 331 k/uL (150-450); RBC 3.32 m/uL (4.30-5.90); RDW 14.6 % (11.5-15.5); WBC 10.8 k/uL (3.8-10.6)
[2022-11-04] MEDS: ALBUTEROL HFA INHALER INHALATION SCH ×4 (07:58→19:51)
--- NOTE | 2022-11-04 07:58 | XR ---
EXAMINATION TYPE: XR chest 1V DATE OF EXAM: 11/04/2022 6:24 AM COMPARISON: Chest radiographs from 11/02/2022. TECHNIQUE: XR chest 1V Frontal view of the chest. CLINICAL INDICATION:Male, 87 years old with history of sob; FINDINGS: Lungs/Pleura: Prominent interstitial lung markings are seen scattered throughout the lungs. Blunting of the costophrenic angles No evidence of focal consolidation, pneumothorax. Pulmonary vascularity: Pulmonary vascular congestion. Heart/mediastinum: Cardiomediastinal silhouette is enlarged and stable. Musculoskeletal: Degenerative changes of the shoulder joints. IMPRESSION: Chronic interstitial lung opacities with superimposed hazy opacities correlate for congestive heart f ailure.
[2022-11-04 08:09] LABS: Potassium 4.2 mmol/L (3.5-5.1)
[2022-11-04 08:10] LABS: Calcium 8.5 mg/dL (8.4-10.2)
[2022-11-04] MEDS: SPIRONOLACTONE 25 MG TAB PO SCH (09:32)
[2022-11-04] MEDS: TAMSULOSIN 0.4 MG CAP.ER.24H PO SCH (09:32)
[2022-11-04] MEDS: ASPIRIN 81 MG PO SCH (09:32)
[2022-11-04] MEDS: POTASSIUM CHLORIDE ER 10 MEQ TAB.ER.PRT PO SCH (09:32)
[2022-11-04] MEDS: APIXABAN 2.5 MG TABLET PO SCH ×2 (09:32→20:49)
[2022-11-04] MEDS: PANTOPRAZOLE 40 MG TABLET PO SCH (09:32)
[2022-11-04] MEDS: DOCUSATE 100 MG CAP PO SCH ×2 (09:32→20:49)
[2022-11-04] MEDS: AMIODARONE 200 MG TAB PO SCH ×2 (09:32→20:49)
[2022-11-04] MEDS: FUROSEMIDE 40 MG TAB PO SCH (09:32)
[2022-11-04] MEDS: METOPROLOL SUCCINATE (ER) 25 MG TAB.ER.24H PO SCH ×2 (09:32→20:48)
[2022-11-04] MEDS: guaiFENesin-DM 100-10MG/5ML 10 ML CUP PO SCH ×3 (10:18→15:55)
[2022-11-04] MEDS: DAPAGLIFLOZIN PROPANEDIOL 10 MG TABLET PO SCH (10:18)
[2022-11-04] MEDS ORDERED: polyethylene glycoL 3350 17 GM POWD.PACK PO STA (10:51)
--- NOTE | 2022-11-04 10:55 | P.PN ---
Subjective 87-year-old man sent here to have evaluation for a constellation of symptoms that are been coming on over the past hours today. There has been cough with some whitish sputum. Patient also has had some leg swelling. There was concerned about possibility of congestive heart failure developing. The patient denies having chest pain. He does acknowledge orthopnea. Patient underwent an investigation including EKG showing atrial fibrillation. He also underwent a chest x-ray which showed findings consistent with heart failure. NT proBNP came in to be elevated at 10,000. The patient subsequently started on amiodarone IV because he was tachycardic where he was in A. fib with RVR and he remains on amiodarone IV. Oral anticoagulation was restarted again. When the patient was seen and examined this morning he did not look in overt congestive heart failure. His vitals showed low blood pressure with a systolic pressure in the 80s. His heart rate was around 110 beats per minutes in atrial fibrillation. The rest of the physical exam revealed a regular rhythm with a systolic murmur and he does have diminished breathing sounds bilaterally was mild bilateral expiratory wheezing noted as well. 10/29/2022 Patient presents because of dyspnea and found to have acute CHF. His abdominal pain have also atrial fibrillation and blood pressure was borderline low on admission, patient seen by home health manager He was treated with amiodarone drip for his A. fib and RVR and switched to oral amiodarone 400 mg today he came off his amiodarone drip. Discontinue it on liquids 2.5 and Lasix 40 mg daily. Also he is on home dose of aspirin 81 mg. Physical exam coughing. The chest x-ray. Also we will repeat WBC today. Echocardiogram from 09/2022 showing ejection fraction of 20-25% and moderate mitral regurgitation Patient came from [facility], possible early discharged to [facility] open discharged to finish his rehab. 10/30/2022 Patient awake alert, he said that his breathing is better and back to normal for him, still mildly tachypneic with coughing. Robitussin as needed. Denies chest pain. He feels generally weak but this could be due to aging. Patient however her blood pressure sore on the low side although it is improved, this morning 104/58. Patient's tachycardia is improving, he is saturating 94- 97% on room air. He does not use accessory muscles to breathe. And checked previous records, his blood pressure was better last year. Chest x- ray showing bilateral pleural effusion, pulmonary congestion. Howevercalcitonin is still pending and we will send for urine analysis today. In the meantime patient On metoprolol 25 mg, amiodarone 400 mg, home dose of liquids 2.5 mg and Lasix 40 mg by mouth daily. Discussed with staff 10/31/2022 Patient awake and alert, however he looks very tired, he was sitting in chair this morning, he denies chest pain, his breathing is stable. However her pressure remains on low side, this morning his bedside this was concerned about patient getting more hypotensive and more lethargic, midodrine was started today with holding parameters, with the plan to taper it down the community few days. Patient urinalysis was also suspicious for infection, patient was started on Rocephin and urine culture was sent. Has Carranza catheter in a Place Blood pressure improved currently 109/68. Remains on Lasix 40 mg by mouth daily, and home dose of eliquis 2.5 mg 11/01/2022 Patient improving slowly and gradually, today he states an outpatient in bed and he feels better. He is blood pressure is low normal since admission, and he remains stable, slightly tachycardic with heart rate around 109 but improving. Leukocytosis also improving significantly down to 12,000 after started on ceftriaxone. Patient received 1 exudates of IV Lasix today Cardiology input is appreciated. Possible discharge in 24-48 hours 11/02/2022 Patient today was still complaining of from some respiratory difficulty with ongoing significant coughing We obtained repeat chest x-ray which showed worsening infiltrates in both sides while he is on ceftriaxone, most likely patient has gram-negative pneumonia secondary to hospital-acquired pneumonia Return to change antibiotics to Zosyn with close monitoring Compliance Nurse on the case 11/03/2021 Patient is awake and alert, still have little tachypnea and dyspnea also a still coughing. Yesterday chest x-ray was worse showing pneumonia his pro-calcitonin is slightly elevated 0.17. His antibiotic was adjusted to Zosyn. His creatinine went up slightly 1.4 today, is slightly hypotensive and bradycardic and therefore would lower the dose of metoprolol. Carranza catheter in place. And medication were reviewed. We'll try to avoid nephrotoxic medicatio ns. Check labs in the morning cardiology was is doing well Also we will lower the dose of Lasix to 20 mg daily 11/04/2022 Patient feels better, his breathing is better, he has less coughing however not completely resolved. Also he feels stronger Continued on Zosyn for his hospital-acquired pneumonia and it looks is improving His atrial fibrillation is controlled rate, his blood pressure is borderline and is doing well with metoprolol 12.5 mg twice a day. Cardiology team already evaluated the patient. 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 His kidney function is slightly worse 1.4 up to 1.5, most likely secondary to Lasix effect and borderline blood pressure that there would lower the dose of Lasix to 20 mg daily Objective - Vital Signs Vital signs: Vital Signs Temp 98.2 F 11/04/22 06:40 Pulse 65 11/04/22 06:40 Resp 16 11/04/22 06:40 BP 101/65 11/04/22 06:40 Pulse Ox 95 11/04/22 08:00 FiO2 21 11/03/22 07:56 Intake & Output 11/03/22 11/04/22 11/04/22 17:59 06:59 18:59 Intake Total Output Total Balance Intake: Intake, IV Titration Amount Piperacillin-Tazobactam 3 .375 gm In Sodium Chloride 0.9% 100 ml @ 25 mls/hr IVPB Q8H [facility] Rx#: [id number] Oral Output: Urine Other: Voiding Method Indwelling Catheter # Bowel Movements - Exam -GENERAL: The patient is alert and oriented x3, not in any acute distress. Well developed, well nourished. Generally weak HEENT: Pupils are round and equally reacting to light. EOMI. No scleral icterus. No conjunctival pallor. Normocephalic, atraumatic. No pharyngeal erythema. No thyromegaly. CARDIOVASCULAR: S1 and S2 present. No murmurs, rubs, or gallops. -PULMONARY: Chest is clear to auscultation, no wheezing or crackles. Weak coughing ABDOMEN: Soft, nontender, nondistended, normoactive bowel sounds. No palpable organomegaly. MUSCULOSKELETAL: No joint swelling or deformity. EXTREMITIES: No cyanosis, clubbing, or pedal edema. NEUROLOGICAL: Gross neurological examination did not reveal any focal deficits. SKIN: No rashes. no petechiae. - Labs CBC & Chem 7: 11/04/22 07:25 11/04/22 07:25 Labs: Abnormal Lab Results - Last 24 Hours (Table) 11/03/22 11/04/22 11/04/22 Range/Units 07:06 07:25 07:25 WBC 10.8 H (3.8-10.6) k/uL RBC 3.32 L (4.30-5.90) m/uL Hgb 9.8 L (13.0-17.5) gm/dL Hct 31.1 L (39.0-53.0) % Neutrophils # 9.2 H (1.3-7.7) k/uL Lymphocytes # 0.7 L (1.0-4.8) k/uL BUN 40 H (9-20) mg/dL Creatinine 1.56 H (0.66-1.25) mg/dL Procalcitonin 0.17 H (0.02-0.09) ng/mL Assessment and Plan Assessment: Hospital-acquired pneumonia most likely secondary to gram-negative bacteria Acute CHF exacerbation, systolic, with ejection of 20-25% Paroxysmal A. fib and RVR, present on admission. Currently heart rate is controlled Mild acute kidney injury, secondary to diabetic and borderline blood pressure Low normal blood pressure, currently improved Hypertension Hyperlipidemia History of DVT/PE History of CVA/TIA Plan: Change antibiotics to Zosyn Continue with amiodarone, oral dose Continue with eliquis Continue with Colace and MiraLAX 1 Continue with oral Lasix, atorvastatin 20 mg daily Lower metoprolol to 12.5 mg daily. And monitor blood pressure and heart rate. Cardiology cleared the patient Labs and medication were reviewed.. Continue same treatment. Continue with symptomatic treatment. Resume home medication. Monitor labs and vitals. DVT and GI prophylaxis. Further recommendations as per clinical course of the patient DVT prophylaxis: eliquis GI Prophylaxis: Ppi Prognosis is guarded Possible discharge soon to subacute rehab
--- NOTE | 2022-11-04 12:45 | P.PN ---
Subjective Progress Note Date: 11/04/22 The patient is an 87-year-old male with a known history of cardiomyopathy, moderate mitral regurgitation, permanent atrial fibrillation who presented with symptoms progressive dyspnea and peripheral edema. He feel's well overall today. Continues to have productive cough. He denies any chest discomfort, d izziness or palpitations. He denies any nausea. His atrial fibrillation rate is under good control. Objective - Vital Signs Vital signs: Vital Signs Temp 98.2 F 11/04/22 06:40 Pulse 65 11/04/22 06:40 Resp 16 11/04/22 06:40 BP 101/65 11/04/22 06:40 Pulse Ox 95 11/04/22 08:00 FiO2 21 11/03/22 07:56 Intake & Output 11/03/22 11/04/22 11/04/22 17:59 06:59 18:59 Intake Total Output Total Balance Intake: Intake, IV Titration Amount Piperacillin-Tazobactam 3 .375 gm In Sodium Chloride 0.9% 100 ml @ 25 mls/hr IVPB Q8H [facility] Rx#: [id number] Oral Output: Urine Other: Voiding Method Indwelling Catheter # Bowel Movements - Exam PHYSICAL EXAMINATION: HEENT: Head is atraumatic, normocephalic. Pupils equal, round. Neck is supple. There is no elevated jugular venous pressure. HEART EXAMINATION: Heart sounds irregular rate and rhythm, S1 and S2 normal. Holosystolic murmur. CHEST EXAMINATION: Lungs are clear to auscultation. No chest wall tenderness is noted on palpation or with deep breathing. ABDOMEN: Soft, nontender. Bowel sounds are heard. No organomegaly noted. EXTREMITIES: 2+ peripheral pulses with evidence of mild peripheral edema and no calf tenderness noted. - Labs CBC & Chem 7: 11/04/22 07:25 11/04/22 07:25 Labs: Abnormal Lab Results - Last 24 Hours (Table) 11/03/22 11/04/22 11/04/22 Range/Units 07:06 07:25 07:25 WBC 10.8 H (3.8-10.6) k/uL RBC 3.32 L (4.30-5.90) m/uL Hgb 9.8 L (13.0-17.5) gm/dL Hct 31.1 L (39.0-53.0) % Neutrophils # 9.2 H (1.3-7.7) k/uL Lymphocytes # 0.7 L (1.0-4.8) k/uL BUN (9-20) mg/dL Creatinine (0.66-1.25) mg/dL Procalcitonin 0.17 H 0.10 H (0.02-0.09) ng/mL 11/04/22 Range/Units 07:25 WBC (3.8-10.6) k/uL RBC (4.30-5.90) m/uL Hgb (13.0-17.5) gm/dL Hct (39.0-53.0) % Neutrophils # (1.3-7.7) k/uL Lymphocytes # (1.0-4.8) k/uL BUN 40 H (9-20) mg/dL Creatinine 1.56 H (0.66-1.25) mg/dL Procalcitonin (0.02-0.09) ng/mL Assessment and Plan Assessment: 1. CHF with reduced ejection fraction 2. Permanent atrial fibrillation, anticoagulated 3. Hospital-acquired pneumonia 4. Acute kidney injury Plan: From cardiology's perspective medications were reviewed and we will continue the same. Continue to monitor renal function and electrolytes. We will continue to follow the patient provide further recommendations accordingly. SOFTWARE SALES MANAGER note has been reviewed, I agree with a documented findings and plan of care. Patient was seen and examined.
[2022-11-04] MEDS: ONDANSETRON 4 MG/2 ML VIAL IVP PRN (15:57)
--- NOTE | 2022-11-04 21:24 | P.GSCN ---
History of Present Illness Consult date: 11/04/22 History of present illness: REASON FOR CONSULTATION: Ostomy prolapse HISTORY OF PRESENT ILLNESS: The patient is a 87 year old male who 2 years ago had perforated rectum due to fecal impaction. Patient underwent emergent sigmoid colectomy and colostomy creation by Dr. Dean, September 2020. Patient reports a past 1-2 weeks developing swelling and prolapse of his ostomy site. He is eager to have colostomy reversal. Patient's pre-existing severe cardiac disease. Denies moderate abdominal pain. He has pre-existing history of chronic constipation. Reports chronic coughing which caused prolapse of his ostomy. General surgery is consulted for a prolapsed ostomy. He was admitted due to exacerbation of congestive heart failure. PAST MEDICAL HISTORY: See list and reviewed PAST SURGICAL HISTORY: See list and reviewed MEDICATIONS: See list and reviewed ALLERGIES: See list and reviewed SOCIAL HISTORY: See list and reviewed FAMILY HISTORY: See list and reviewed REVIEW OF ORGAN SYSTEMS: CONSTITUTIONAL: No fevers or chills. No recent weight loss. EYES: Denies any trouble with vision. No glasses. HEENT: No difficulties with hearing. No nosebleeds. No difficulty swallowing. RESPIRATORY: Denies pneumonia. Denies any troubles with breathing or dyspnea on exertion. CARDIOVASCULAR: Denies any chest pain, palpitations, or recent heart attacks. GASTROINTESTINAL: Denies fatty food intolerance. Denies change in bowel habits and gas bloat. GENITOURINARY: Denies any blood in urine or increased urinary frequency. NEUROLOGICAL: Denies any numbness or tingling along the distal extremities. No seizure disorders or headaches. MUSCULOSKELETAL: Denies any back pain, stiffness or joint arthritis. SKIN: No current skin cancer. No rash. PSYCHIATRIC: Denies current depression or suicidal thoughts. ENDOCRINE: Denies current thyroid disorders. Denies any blood sugar glucose intolerance. HEME/LYMPHATIC: Denies any lumps and bumps around the neck. No recent deep venous thrombosis. ALLERGY/IMMUNOLOGY: No immunoglobulin therapy. No immune deficiencies. BREAST: Denies current breast lumps, pain or nipple discharge. PHYSICAL EXAM: VITALS: Reviewed CONSTITUTIONAL: Well developed and in no acute distress. EYES: Conjuctivae without sclera icterus. Extraocular movements grossly intact. HEAD, EARS, NOSE, THROAT: Moist buccal mucosa. Head is atraumatic, normocephalic. Hears conversational speech. No nasal drainage. NECK: Supple. No JV distention. No thyroidomegaly. RESPIRATORY: Non-labored respirations and equal bilateral excursions. No gross wheezes. CARDIOVASCULAR: Palpable 2+ radial pulses. ABDOMEN: Ostomy prolapse identified with parastomal hernia. Ostomy is reducible. Scant stool within the ostomy bag. LYMPH: No neck lymphadenopathy. MUSCULOSKELETAL: Nail and fingers with good capillary refill. SKIN: Warm and well perfused with good skin turgor. NEUROLOGIC: Cranial nerves II through XII grossly intact. No focal or lateralizing signs. PSYCH: Appropriate affect. Alert and oriented to person, place and time. Displays appropriate insight. CLINCAL LABS: Reviewed ECHO: Reviewed from September 2022 demonstrates severely impaired left ventricular function 20%. STUDIES: CT chest from September 2022 demonstrates bilateral pleural effusion and pericardial effusion. This is my independent interpretation. RADIOLOGY: Report reviewed CT chest demonstrates cardiomegaly with bilateral pleural effusion. RECORDS: Operative report from September 2020 reviewed with pneumoperitoneum and fecal impaction sigmoid colectomy EKG: Atrial fibrillation with rapid ventricular response ASSESSMENT: 1. Parastomal hernia with Prolapse 2. Exacerbation condition heart failure with global systolic dysfunction 3. Bilateral pleural effusion 4. Cardiomegaly 5. Hypertensive heart 6. Chronic anticoagulation 7. Gastroesophageal reflux disease 8. Atrial fibrillation with rapid ventricular response PLAN: 1. Patient has multiple comorbidities which make any surgical intervention at high risk. 2. He is seeking colostomy reversal however due to his multiple comorbidities, colostomy reversal is ill advised. 3. Recommend ostomy revision instead of colostomy reversal due to high risk ADVANCE DIRECTIVE: Thank you for this kind consultation. 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 History of Any Multi-Drug Resistant Organisms: None Reported Past Surgical History: Bowel Resection Additional Past Surgical History / Comment(s): 2020 bowel resection/colostomy, CVA in 1956 which made need for R elbow surgery/R ankle fusion, post cva surgery on back to remove blood clot, bilateral eye lens implants. Past Anesthesia/Blood Transfusion Reactions: No Reported Reaction Additional Past Anesthesia/Blood Transfusion Reaction / Comm: Pt believes he has received blood in past without reaction. Past Psychological History: No Psychological Hx Reported Smoking Status: Former smoker Past Alcohol Use History: None Reported Past Drug Use History: None Reported - Past Family History Mother Family Medical History: Dementia Additional Family Medical History / Comment(s): ALZHEIMERS Father Family Medical History: No Reported History Additional Family Medical History / Comment(s): Pt states his father was healthy Medications and Allergies Home Medications Medication Instructions Recorded Confirmed Type Tamsulosin HCl [Flomax] 0.4 mg PO DAILY 02/14/18 10/28/22 History Potassium Chloride [Klor-Con M10] 10 meq PO DAILY@1700 05/01/21 10/28/22 History Pantoprazole Sodium [Protonix] 40 mg PO DAILY 10/20/22 10/28/22 History Furosemide [Lasix] 40 mg PO DAILY tab 10/24/22 10/28/22 Rx Metoprolol Succinate (ER) [Toprol 25 mg PO DAILY tab 10/24/22 10/28/22 Rx XL] cefUROXime axetiL [Ceftin] 500 mg PO BID 3 Days #6 tab 10/24/22 10/28/22 Rx lisinopriL [Zestril] 2.5 mg PO DAILY tab 10/24/22 10/28/22 Rx Albuterol Inhaler [Ventolin Hfa 2 puff INHALATION RT-Q6H 10/28/22 10/28/22 History Inhaler] Apixaban [Eliquis] 2.5 mg PO BID@0800,1700 10/28/22 10/28/22 History Aspirin 81 mg PO DAILY@1200 10/28/22 10/28/22 History Ensure Enlive 237 ml PO TID@0800,1200,1700 10/28/22 10/28/22 History Eucerin Advanced Repair Cream 1 applic TOPICAL DAILY 10/28/22 10/28/22 History Eucerin Advanced Repair Cream 1 applic TOPICAL DAILY PRN 10/28/22 10/28/22 History Magnesium Hydroxide [Milk of 7,200 mg PO Q48H PRN 10/28/22 10/28/22 History Magnesia Concentrate] Na Phos,M-B/Na Phos,Di-Ba [Fleet 133 ml RECTAL DAILY PRN 10/28/22 10/28/22 History Adult] bisacodyL [Dulcolax] 10 mg RECTAL DAILY PRN 10/28/22 10/28/22 History Allergies Allergy/AdvReac Type Severity Reaction Status Date / Time memantine [From Namenda] AdvReac Nausea & Verified 10/28/22 12:05 Vomiting & Diarrhea Surgical - Exam Vital Signs Temp Pulse Resp BP Pulse Ox 98.2 F 148 H 18 99/73 93 L 10/28/22 01:05 10/28/22 01:05 10/28/22 01:05 10/28/22 01:05 10/28/22 01:05 Results - Labs 11/04/22 07:25 11/04/22 07:25 Abnormal Lab Results - Last 24 Hours (Table) 11/04/22 11/04/22 11/04/22 Range/Units 07:25 07:25 07:25 WBC 10.8 H (3.8-10.6) k/uL RBC 3.32 L (4.30-5.90) m/uL Hgb 9.8 L (13.0-17.5) gm/dL Hct 31.1 L (39.0-53.0) % Neutrophils # 9.2 H (1.3-7.7) k/uL Lymphocytes # 0.7 L (1.0-4.8) k/uL BUN 40 H (9-20) mg/dL Creatinine 1.56 H (0.66-1.25) mg/dL Procalcitonin 0.10 H (0.02-0.09) ng/mL Diabetes panel 11/04/22 Range/Units 07:25 Sodium 138 (137-145) mmol/L Potassium 4.2 (3.5-5.1) mmol/L Chloride 101 (98-107) mmol/L Carbon Dioxide 29 (22-30) mmol/L BUN 40 H (9-20) mg/dL Creatinine 1.56 H (0.66-1.25) mg/dL Glucose 96 (74-99) mg/dL Calcium 8.5 (8.4-10.2) mg/dL Calcium panel 11/04/22 Range/Units 07:25 Calcium 8.5 (8.4-10.2) mg/dL Pituitary panel 11/04/22 Range/Units 07:25 Sodium 138 (137-145) mmol/L Potassium 4.2 (3.5-5.1) mmol/L Chloride 101 (98-107) mmol/L Carbon Dioxide 29 (22-30) mmol/L BUN 40 H (9-20) mg/dL Creatinine 1.56 H (0.66-1.25) mg/dL Glucose 96 (74-99) mg/dL Calcium 8.5 (8.4-10.2) mg/dL Adrenal panel 11/04/22 Range/Units 07:25 Sodium 138 (137-145) mmol/L Potassium 4.2 (3.5-5.1) mmol/L Chloride 101 (98-107) mmol/L Carbon Dioxide 29 (22-30) mmol/L BUN 40 H (9-20) mg/dL Creatinine 1.56 H (0.66-1.25) mg/dL Glucose 96 (74-99) mg/dL Calcium 8.5 (8.4-10.2) mg/dL
[2022-11-05] MEDS: guaiFENesin-DM 100-10MG/5ML 10 ML CUP PO SCH ×3 (00:06→16:42)
[2022-11-05] MEDS: PIPERACILLIN-TAZOBACTAM 3.375 GM in SODIUM CHLORIDE 0.9% 100 ML IVPB SCH ×3 (04:24→21:53)
--- NOTE | 2022-11-05 08:07 | P.PN ---
Subjective Progress Note Date: 11/05/22 Principal diagnosis: Permanent atrial fibrillation This is an 87-year-old gentleman with a past medical history significant for severe cardiomyopathy with an EF around 30% as well as permanent atrial fibrillation as well as valvular heart disease was no mitral regurgitation as w ell as multiple comorbid conditions consistent of hypertension and dyslipidemia who was admitted to the hospital with increasing shortness of breath and he was diagnosed was congestive heart failure. 11/05/2022 The patient was seen and evaluated this morning. He states that he was feeling somewhat better indeterminable shortness of breath but he still have cough appeared to be not productive of any sputum. He is on antibiotic. He remains with atrial fibrillation and controlled heart rate on the current medical regimen and he is on amiodarone as well as beta jerry with metoprolol and also he is on oral anticoagulation. He is on oral diuretics. Kidney function has been stable. On examination he does have diminished breathing sounds bilaterally with irregular rhythm and distant heart sounds and no lower extremities edema noted. Assessment Heart failure exacerbation secondary to heart failure with reduced ejection fraction Valvular heart disease with mitral regurgitation Severe cardiomyopathy Permanent atrial fibrillation Multiple comorbid conditions Plan Continue the current medical regimen The patient seems to be euvolemic. He continues to have cough. He is on antibiotic No need for any further cardiac workup at this point Objective - Vital Signs Vital signs: Vital Signs Temp 97.9 F 11/05/22 02:00 Pulse 63 11/05/22 02:00 Resp 18 11/05/22 02:00 BP 98/55 11/05/22 02:00 Pulse Ox 95 11/05/22 02:00 FiO2 21 11/03/22 07:56 Intake & Output 11/04/22 11/05/22 11/05/22 18:59 06:59 18:59 Output Total 700 750 Balance -700 -750 Output: Urine 700 750 Other: Voiding Method Indwelling Catheter Indwelling Catheter # Voids 1 - Labs CBC & Chem 7: 11/04/22 07:25 11/04/22 07:25 Labs: Abnormal Lab Results - Last 24 Hours (Table) 11/04/22 11/04/22 Range/Units 07:25 07:25 BUN 40 H (9-20) mg/dL Creatinine 1.56 H (0.66-1.25) mg/dL Procalcitonin 0.10 H (0.02-0.09) ng/mL
[2022-11-05] MEDS: DOCUSATE 100 MG CAP PO SCH ×2 (08:13→21:54)
[2022-11-05] MEDS: AMIODARONE 200 MG TAB PO SCH ×2 (08:13→21:54)
[2022-11-05] MEDS: POTASSIUM CHLORIDE ER 10 MEQ TAB.ER.PRT PO SCH (08:13)
[2022-11-05] MEDS: METOPROLOL SUCCINATE (ER) 25 MG TAB.ER.24H PO SCH ×2 (08:13→21:54)
[2022-11-05] MEDS: FUROSEMIDE 20 MG TAB PO SCH (08:13)
[2022-11-05] MEDS: SPIRONOLACTONE 25 MG TAB PO SCH (08:13)
[2022-11-05] MEDS: APIXABAN 2.5 MG TABLET PO SCH ×2 (08:13→21:54)
[2022-11-05] MEDS: ASPIRIN 81 MG PO SCH (08:13)
[2022-11-05] MEDS: PANTOPRAZOLE 40 MG TABLET PO SCH (08:13)
[2022-11-05] MEDS: TAMSULOSIN 0.4 MG CAP.ER.24H PO SCH (08:13)
[2022-11-05] MEDS: DAPAGLIFLOZIN PROPANEDIOL 10 MG TABLET PO SCH (08:14)
[2022-11-05] MEDS: ALBUTEROL HFA INHALER INHALATION SCH ×4 (08:33→20:32)
[2022-11-05 09:17] LABS: African American GFR (CKD) 47.8 (60.0-200.0); Anion Gap 15.6 mmol/L (10.00-18.00); BUN/Creat Ratio 21.93 Ratio (12.00-20.00); Blood Urea Nitrogen 32.9 mg/dL (9.0-27.0); Calcium 8.9 mg/dL (8.7-10.3); Carbon Dioxide 23.4 mmol/L (20.0-27.5); Non-African American GFR(CKD) 41.3 (60.0-200.0); Potassium 4.4 mmol/L (3.5-5.5)
--- NOTE | 2022-11-05 14:06 | P.PN ---
Subjective Progress Note Date: 11/05/22 CHIEF COMPLAINT: Congestive heart failure HISTORY OF PRESENT ILLNESS: Surgical service following in regards to the parastomal hernia with prolapse. Patient denies any pain. The ostomy is functioning. He is tolerating diet. He is admitted to the hospital with CHF exacerbation EF 30% and pneumonia. Afebrile. WBC 10.8 PHYSICAL EXAM: VITAL SIGNS: Reviewed. GENERAL: Well-developed in no acute distress. HEENT: No sclera icterus. Extraocular movements grossly intact. Moist buccal mucosa. Head is atraumatic, normocephalic. ABDOMEN: Soft. Mildly distended. Evidence of a parastomal hernia and some prolapse of stoma. Stool in ostomy bag. NEUROLOGIC: Alert and oriented. Cranial nerves II through XII grossly intact. ASSESSMENT: 1. Parastomal hernia with prolapse 2. History of perforated rectum due to fecal impaction requiring emergent sigmoid colectomy and colostomy in September [address] Dean 3. CHF exacerbation 4. Pneumonia 5. A. fib RVR PLAN: -Continue to monitor -Possible revision of colostomy when medically stable -Continue supportive care Physician Embedded Nurse note has been reviewed by physician. Signing provider agrees with the documented findings, assessment, and plan of care. Objective - Vital Signs Vital signs: Vital Signs Temp 97.4 F L 11/05/22 07:08 Pulse 64 11/05/22 08:14 Resp 17 11/05/22 08:14 BP 113/68 11/05/22 07:08 Pulse Ox 96 11/05/22 08:33 FiO2 21 11/03/22 07:56 Intake & Output 11/04/22 11/05/22 11/05/22 18:59 06:59 18:59 Output Total 700 750 Balance -700 -750 Output: Urine 700 750 Other: Voiding Method Indwelling Catheter Indwelling Catheter Indwelling Catheter # Voids 1 - Labs CBC & Chem 7: 11/04/22 07:25 11/05/22 05:37 Labs: Abnormal Lab Results - Last 24 Hours (Table) 11/04/22 11/05/22 Range/Units 07:25 05:37 BUN 32.9 H (9.0-27.0) mg/dL Est GFR (CKD-EPI)AfAm 47.8 L (60.0-200.0) Est GFR (CKD-EPI)NonAf 41.3 L (60.0-200.0) BUN/Creatinine Ratio 21.93 H (12.00-20.00) Ratio Procalcitonin 0.10 H (0.02-0.09) ng/mL
[2022-11-06] MEDS: PIPERACILLIN-TAZOBACTAM 3.375 GM in SODIUM CHLORIDE 0.9% 100 ML IVPB SCH (04:38)
--- NOTE | 2022-11-06 07:53 | P.PN ---
Subjective Progress Note Date: 11/06/22 Principal diagnosis: Permanent atrial fibrillation This is an 87-year-old gentleman with a past medical history significant for severe cardiomyopathy with an EF around 30% as well as permanent atrial fibrillation as well as valvular heart disease was no mitral regurgitation as w ell as multiple comorbid conditions consistent of hypertension and dyslipidemia who was admitted to the hospital with increasing shortness of breath and he was diagnosed was congestive heart failure. 11/05/2022 The patient was seen and evaluated this morning. He states that he was feeling somewhat better indeterminable shortness of breath but he still have cough appeared to be not productive of any sputum. He is on antibiotic. He remains with atrial fibrillation and controlled heart rate on the current medical regimen and he is on amiodarone as well as beta jerry with metoprolol and also he is on oral anticoagulation. He is on oral diuretics. Kidney function has been stable. On examination he does have diminished breathing sounds bilaterally with irregular rhythm and distant heart sounds and no lower extremities edema noted. November 062022 The patient was seen and evaluated this morning. He continues to have a dry cough. Otherwise he seems to be stable from the heart failure standpoint of view. He is maintaining normal oxygen saturation on room air and not requiring any oxygen. He remains in atrial fibrillation with controlled heart rate on the current medical regimen. He is on oral anticoagulation. Kidney function is stable. Hemoglobin is stable. From the cardiac standpoint of view, the patient potentially can be discharged home in the next 12-24 hours to extended care facility or home. On examination his vitals are stable beside marginally low blood pressure but above 19 mmHg systolic was diminished breathing sounds bilaterally and no lower eczema is edema noted on exam. Assessment Heart failure exacerbation secondary to heart failure with reduced ejection fraction Valvular heart disease with mitral regurgitation Severe cardiomyopathy Permanent atrial fibrillation Multiple comorbid conditions Plan Continue the current medical regimen The patient seems to be euvolemic. No need for any further cardiac workup at this point Objective - Vital Signs Vital signs: Vital Signs Temp 97.7 F 11/06/22 02:25 Pulse 62 11/06/22 02:25 Resp 18 11/06/22 02:25 BP 92/48 11/06/22 02:25 Pulse Ox 93 L 11/06/22 02:25 FiO2 21 11/03/22 07:56 Intake & Output 11/05/22 11/06/22 11/06/22 18:59 06:59 18:59 Intake Total 1080 Output Total 1200 500 Balance -120 -500 Intake: Oral 1080 Output: Urine 1200 500 Other: Voiding Method Indwelling Catheter Indwelling Catheter - Labs CBC & Chem 7: 11/04/22 07:25 11/05/22 05:37 Labs: Abnormal Lab Results - Last 24 Hours (Table) 11/05/22 Range/Units 05:37 BUN 32.9 H (9.0-27.0) mg/dL Est GFR (CKD-EPI)AfAm 47.8 L (60.0-200.0) Est GFR (CKD-EPI)NonAf 41.3 L (60.0-200.0) BUN/Creatinine Ratio 21.93 H (12.00-20.00) Ratio
[2022-11-06] MEDS: ALBUTEROL HFA INHALER INHALATION SCH ×2 (09:05→12:16)
[2022-11-06 09:13] LABS: Basophils # (A) 0.01 X 10*3/uL (0.00-0.10); Basophils % (A) 0.1 %; Eosinophils # (A) 0.13 X 10*3/uL (0.04-0.35); Eosinophils % (A) 1.4 %; HCT 31.3 % (39.6-50.0); HGB 9.4 g/dL (13.0-17.0); Immature Grans, Automated 0.5 %; Lymphocytes # (A) 1.01 X 10*3/uL (0.90-5.00); Lymphocytes % (A) 10.9 %; MCH 28.8 pg (27.0-32.0); Mean Platelet Volume 11.4 fL (9.5-12.2); Monocytes # (A) 0.46 X 10*3/uL (0.20-1.00); NRBC Per 100 WBC 0 /100 WBCS (0.0-0.0); Neutrophils # (A) 7.57 X 10*3/uL (1.80-7.70); Neutrophils % (A) 82.1 %; Platelet Count 381 X 10*3/uL (140-440); RBC 3.26 X 10*6/uL (4.40-5.60); RDW 15.2 % (11.5-14.5); WBC 9.23 X 10*3/uL (4.50-10.00)
[2022-11-06 09:31] LABS: African American GFR (CKD) 47.8 (60.0-200.0); Anion Gap 11.1 mmol/L (10.00-18.00); BUN/Creat Ratio 20.6 Ratio (12.00-20.00); Blood Urea Nitrogen 30.9 mg/dL (9.0-27.0); Calcium 8.7 mg/dL (8.7-10.3); Carbon Dioxide 23.9 mmol/L (20.0-27.5); Non-African American GFR(CKD) 41.3 (60.0-200.0); Potassium 4.3 mmol/L (3.5-5.5)
[2022-11-06] MEDS: METOPROLOL SUCCINATE (ER) 25 MG TAB.ER.24H PO SCH (09:43)
[2022-11-06] MEDS: FUROSEMIDE 20 MG TAB PO SCH (09:44)
[2022-11-06] MEDS: DOCUSATE 100 MG CAP PO SCH (09:44)
[2022-11-06] MEDS: ASPIRIN 81 MG PO SCH (09:44)
[2022-11-06] MEDS: DAPAGLIFLOZIN PROPANEDIOL 10 MG TABLET PO SCH (09:44)
[2022-11-06] MEDS: AMIODARONE 200 MG TAB PO SCH (09:44)
[2022-11-06] MEDS: SPIRONOLACTONE 25 MG TAB PO SCH (09:44)
[2022-11-06] MEDS: TAMSULOSIN 0.4 MG CAP.ER.24H PO SCH (09:44)
[2022-11-06] MEDS: PANTOPRAZOLE 40 MG TABLET PO SCH (09:44)
[2022-11-06] MEDS: APIXABAN 2.5 MG TABLET PO SCH (09:44)
[2022-11-06] MEDS: POTASSIUM CHLORIDE ER 10 MEQ TAB.ER.PRT PO SCH (09:44)
--- NOTE | 2022-11-06 10:54 | P.PN ---
Subjective Progress Note Date: 11/05/22 87-year-old man sent here to have evaluation for a constellation of symptoms that are been coming on over the past hours today. There has been cough with some whitish sputum. Patient also has had some leg swelling. There was concerned about possibility of congestive heart failure developing. The patient denies having chest pain. He does acknowledge orthopnea. Patient underwent an investigation including EKG showing atrial fibrillation. He also underwent a chest x-ray which showed findings consistent with heart failure. NT proBNP came in to be elevated at 10,000. The patient subsequently started on amiodarone IV because he was tachycardic where he was in A. fib with RVR and he remains on amiodarone IV. Oral anticoagulation was restarted again. When the patient was seen and examined this morning he did not look in overt congestive heart failure. His vitals showed low blood pressure with a systolic pressure in the 80s. His heart rate was around 110 beats per minutes in atrial fibrillation. The rest of the physical exam revealed a regular rhythm with a systolic murmur and he does have diminished breathing sounds bilaterally was mild bilateral expiratory wheezing noted as well. 10/29/2022 Patient presents because of dyspnea and found to have acute CHF. His abdominal pain have also atrial fibrillation and blood pressure was borderline low on admission, patient seen by service dog trainer He was treated with amiodarone drip for his A. fib and RVR and switched to oral amiodarone 400 mg today he came off his amiodarone drip. Discontinue it on liquids 2.5 and Lasix 40 mg daily. Also he is on home dose of aspirin 81 mg. Physical exam coughing. The chest x-ray. Also we will repeat WBC today. Echocardiogram from 09/2022 showing ejection fraction of 20-25% and moderate mitral regurgitation Patient came from custodial, possible early discharged to [facility] open discharged to finish his rehab. 10/30/2022 Patient awake alert, he said that his breathing is better and back to normal for him, still mildly tachypneic with coughing. Robitussin as needed. Denies chest pain. He feels generally weak but this could be due to aging. Patient however her blood pressure sore on the low side although it is improved, this morning 104/58. Patient's tachycardia is improving, he is saturating 94- 97% on room air. He does not use accessory muscles to breathe. And checked previous records, his blood pressure was better last year. Chest x- ray showing bilateral pleural effusion, pulmonary congestion. Howevercalcitonin is still pending and we will send for urine analysis today. In the meantime patient On metoprolol 25 mg, amiodarone 400 mg, home dose of liquids 2.5 mg and Lasix 40 mg by mouth daily. Discussed with staff 10/31/2022 Patient awake and alert, however he looks very tired, he was sitting in chair this morning, he denies chest pain, his breathing is stable. However her pressure remains on low side, this morning his bedside this was concerned about patient getting more hypotensive and more lethargic, midodrine was started today with holding parameters, with the plan to taper it down the community few days. Patient urinalysis was also suspicious for infection, patient was started on Rocephin and urine culture was sent. Has Carranza catheter in a Place Blood pressure improved currently 109/68. Remains on Lasix 40 mg by mouth daily, and home dose of eliquis 2.5 mg 11/01/2022 Patient improving slowly and gradually, today he states an outpatient in bed and he feels better. He is blood pressure is low normal since admission, and he remains stable, slightly tachycardic with heart rate around 109 but improving. Leukocytosis also improving significantly down to 12,000 after started on ceftriaxone. Patient received 1 exudates of IV Lasix today Cardiology input is appreciated. Possible discharge in 24-48 hours 11/02/2022 Patient today was still complaining of from some respiratory difficulty with ongoing significant coughing We obtained repeat chest x-ray which showed worsening infiltrates in both sides while he is on ceftriaxone, most likely patient has gram-negative pneumonia secondary to hospital-acquired pneumonia Return to change antibiotics to Zosyn with close monitoring Political Analyst on the case 11/03/2021 Patient is awake and alert, still have little tachypnea and dyspnea also a still coughing. Yesterday chest x-ray was worse showing pneumonia his pro-calcitonin is slightly elevated 0.17. His antibiotic was adjusted to Zosyn. His creatinine went up slightly 1.4 today, is slightly hypotensive and bradycardic and therefore would lower the dose of metoprolol. Carranza catheter in place. And medication were reviewed. We'll try to avoid nephrotoxic medications. Check labs in the morning cardiology was is doing well Also we will lower the dose of Lasix to 20 mg daily 11/04/2022 Patient feels better, his breathing is better, he has less coughing however not completely resolved. Also he feels stronger Continued on Zosyn for his hospital-acquired pneumonia and it looks is improving His atrial fibrillation is controlled rate, his blood pressure is borderline and is doing well with metoprolol 12.5 mg twice a day. Cardiology team already evaluated the patient. 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 His kidney function is slightly worse 1.4 up to 1.5, most likely secondary to Lasix effect and borderline blood pressure that there would lower the dose of Lasix to 20 mg daily 11/05/2022 Patient is currently sitting in a chair. Awake alert and oriented. No complaints of chest pain or worsening shortness of breath. Patient is being continued on Lasix 20 mg daily. Cardiology is on board. 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 Ostomy is functioning with small amount of stool in the bed. Denied any abdominal pain. Patient has been afebrile. No nausea or vomiting. Laboratory data showed Laboratory data showed sodium 1:30 potassium 4.4 chloride 100 bicarb is 23.4 BUN 32.9 and creatinine 1.5 Current medications reviewed. Objective - Vital Signs Vital signs: Vital Signs Temp 97.9 F 11/05/22 21:18 Pulse 68 11/05/22 21:18 Resp 18 11/05/22 21:18 BP 122/69 11/05/22 21:18 Pulse Ox 93 L 11/05/22 21:18 FiO2 21 11/03/22 07:56 Intake & Output 11/05/22 11/05/22 11/06/22 06:59 18:59 06:59 Intake Total 1080 Output Total 750 1200 Balance -750 -120 Intake: Oral 1080 Output: Urine 750 1200 Other: Voiding Method Indwelling Catheter Indwelling Catheter Indwelling Catheter - Exam - Exam -GENERAL: The patient is alert and oriented x3, not in any acute distress. Well developed, well nourished. Generally weak HEENT: Pupils are round and equally reacting to light. EOMI. No scleral icterus. No conjunctival pallor. Normocephalic, atraumatic. No pharyngeal erythema. No thyromegaly. CARDIOVASCULAR: S1 and S2 present. No murmurs, rubs, or gallops. -PULMONARY: Chest is clear to auscultation, no wheezing or crackles. Weak coughing ABDOMEN: Soft, nontender, nondistended, normoactive bowel sounds. Colostomy with parastomal prolapse. Stool noted in the colostomy back. No palpable organomegaly. MUSCULOSKELETAL: No joint swelling or deformity. EXTREMITIES: No cyanosis, clubbing, or pedal edema. NEUROLOGICAL: Gross neurological examination did not reveal any focal deficits. SKIN: No rashes. no petechiae. - Labs CBC & Chem 7: 11/06/22 04:09 11/06/22 04:09 Labs: Abnormal Lab Results - Last 24 Hours (Table) 11/05/22 Range/Units 05:37 BUN 32.9 H (9.0-27.0) mg/dL Est GFR (CKD-EPI)AfAm 47.8 L (60.0-200.0) Est GFR (CKD-EPI)NonAf 41.3 L (60.0-200.0) BUN/Creatinine Ratio 21.93 H (12.00-20.00) Ratio Assessment and Plan Assessment: Acute CHF exacerbation, systolic, with ejection of 20-25% Hospital-acquired pneumonia most likely secondary to gram-negative . pro- calcitonin Level Is Trending down. 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 fib and RVR, present on admission. Currently heart rate is controlled Mild acute kidney injury, secondary to diabetic and borderline blood pressure Low normal blood pressure, currently improved Hypertension Hyperlipidemia History of DVT/PE History of CVA/TIA Plan: Patient will be continued on Lasix 20 mg daily. On antibiotics in the form of Zosyn. Continue with liquids and amiodarone. cardiology is on board. Continue stool softeners Lower metoprolol to 12.5 mg daily. And monitor blood pressure and heart rate. General surgery has seen the patient and recommends revision of colostomy when medically stable. DVT prophylaxis: eliquis GI Prophylaxis: Ppi Prognosis is guarded Possible discharge soon to subacute rehab Time with Patient: Greater than 30
--- NOTE | 2022-11-06 11:42 | P.PN ---
Subjective Progress Note Date: 11/06/22 CHIEF COMPLAINT: Congestive heart failure HISTORY OF PRESENT ILLNESS: Surgical service following in regards to the parastomal hernia with prolapse. Patient denies any pain. The ostomy is functioning. He is tolerating diet. He is admitted to the hospital with CHF exacerbation EF 30% and pneumonia. Afebrile. WBC 9.23 hgb 9.4 Patient seen and examined with Dr. barr PHYSICAL EXAM: VITAL SIGNS: Reviewed. GENERAL: Well-developed in no acute distress. HEENT: No sclera icterus. Extraocular movements grossly intact. Moist buccal mucosa. Head is atraumatic, normocephalic. ABDOMEN: Soft. Mildly distended. Evidence of a parastomal hernia and some prolapse of stoma. Stool in ostomy bag. NEUROLOGIC: Alert and oriented. Cranial nerves II through XII grossly intact. ASSESSMENT: 1. Parastomal hernia with prolapse 2. History of perforated rectum due to fecal impaction requiring emergent sigmoid colectomy and colostomy in [place] [address] Dean 3. CHF exacerbation 4. Pneumonia 5. A. fib RVR PLAN: -Recommend revision of colostomy when medically stable -Continue supportive care Physician Centerless Grinder note has been reviewed by physician. Signing provider agrees with the documented findings, assessment, and plan of care. Objective - Vital Signs Vital signs: Vital Signs Temp 97.7 F 11/06/22 07:53 Pulse 61 11/06/22 07:53 Resp 17 11/06/22 07:53 BP 99/51 11/06/22 07:53 Pulse Ox 93 L 11/06/22 09:05 FiO2 21 11/03/22 07:56 Intake & Output 11/05/22 11/06/22 11/06/22 18:59 06:59 18:59 Intake Total 1080 Output Total 1200 500 Balance -120 -500 Intake: Oral 1080 Output: Urine 1200 500 Other: Voiding Method Indwelling Catheter Indwelling Catheter - Labs CBC & Chem 7: 11/06/22 04:09 11/06/22 04:09 Labs: Abnormal Lab Results - Last 24 Hours (Table) 11/06/22 11/06/22 Range/Units 04:09 04:09 RBC 3.26 L (4.40-5.60) X 10*6/uL Hgb 9.4 L (13.0-17.0) g/dL Hct 31.3 L (39.6-50.0) % MCHC 30.0 L (32.0-37.0) g/dL RDW 15.2 H (11.5-14.5) % Immature Gran # 0.05 H (0.00-0.04) X 10*3/uL BUN 30.9 H (9.0-27.0) mg/dL Est GFR (CKD-EPI)AfAm 47.8 L (60.0-200.0) Est GFR (CKD-EPI)NonAf 41.3 L (60.0-200.0) BUN/Creatinine Ratio 20.60 H (12.00-20.00) Ratio
[2022-11-06 13:29] VITALS: BMI 20.7
[2022-11-06 14:39] VITALS: BP 102/60; PULSE 76; RESP 18; TEMP 98.4
--- NOTE | 2022-11-07 14:30 | P.DS ---
Providers Date of admission: 10/28/22 05:46 Expected date of discharge: 11/06/22 Attending physician: Felix Houser Consults: 10/28/22 05:44 Consult Physician Routine Consulting Provider: Sebastian Johnson Consult Reason/Comments: Atrial fibrillation with RVR Do you want consulting provider notified?: Yes 11/05/22 08:31 Consult Physician Routine Consulting Provider: Polo Amin Consult Reason/Comments: parastomal hernia Do you want consulting provider notified?: Already Contacted Primary care physician: Josh Mcallister Hospital Course: Discharge diagnosis Acute CHF exacerbation, systolic, with ejection of 20-25% Hospital-acquired pneumonia most likely secondary to gram-negative . pro- calcitonin Level Is Trending down. Stomal hernia with prolapse. Gen. surgery recommends repair once medically stable. 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 fib and RVR, present on admission. Currently heart rate is controlled Mild acute kidney injury, secondary to diabetic and borderline blood pressure Low normal blood pressure, currently improved Hypertension Hyperlipidemia History of DVT/PE History of CVA/TIA Hospital course 87-year-old man sent here to have evaluation for a constellation of symptoms that are been coming on over the past hours today. There has been cough with some whitish sputum. Patient also has had some leg swelling. There was concerned about possibility of congestive heart failure developing. The patient denies having chest pain. He does acknowledge orthopnea. Patient underwent an investigation including EKG showing atrial fibrillation. He also underwent a chest x-ray which showed findings consistent with heart failure. NT proBNP came in to be elevated at 10,000. The patient subsequently started on amiodarone IV because he was tachycardic where he was in A. fib with RVR and he remains on amiodarone IV. Oral anticoagulation was restarted again. When the patient was seen and examined this morning he did not look in overt congestive heart failure. His vitals showed low blood pressure with a systolic pressure in the 80s. His heart rate was around 110 beats per minutes in atrial fibrillation. The rest of the physical exam revealed a regular rhythm with a systolic murmur and he does have diminished breathing sounds bilaterally was mild bilateral expiratory wheezing noted as well. 10/29/2022 Patient presents because of dyspnea and found to have acute CHF. His abdominal pain have also atrial fibrillation and blood pressure was borderline low on admission, patient seen by style advisor He was treated with amiodarone drip for his A. fib and RVR and switched to oral amiodarone 400 mg today he came off his amiodarone drip. Discontinue it on liquids 2.5 and Lasix 40 mg daily. Also he is on home dose of aspirin 81 mg. Physical exam coughing. The chest x-ray. Also we will repeat WBC today. Echocardiogram from 09/2022 showing ejection fraction of 20-25% and moderate mitral regurgitation Patient came from shelter, possible early discharged to [facility] open discharged to finish his rehab. 10/30/2022 Patient awake alert, he said that his breathing is better and back to normal for him, still mildly tachypneic with coughing. Robitussin as needed. Denies chest pain. He feels generally weak but this could be due to aging. Patient however her blood pressure sore on the low side although it is improved, this morning 104/58. Patient's tachycardia is improving, he is saturating 94- 97% on room air. He does not use accessory muscles to breathe. And checked previous records, his blood pressure was better last year. Chest x- ray showing bilateral pleural effusion, pulmonary congestion. Howevercalcitonin is still pending and we will send for urine analysis today. In the meantime patient On metoprolol 25 mg, amiodarone 400 mg, home dose of liquids 2.5 mg and Lasix 40 mg by mouth daily. Discussed with staff 10/31/2022 Patient awake and alert, however he looks very tired, he was sitting in chair this morning, he denies chest pain, his breathing is stable. However her pressure remains on low side, this morning his bedside this was concerned about patient getting more hypotensive and more lethargic, midodrine was started today with holding parameters, with the plan to taper it down the community few days. Patient urinalysis was also suspicious for infection, patient was started on Rocephin and urine culture was sent. Has Carranza catheter in a Place Blood pressure improved currently 109/68. Remains on Lasix 40 mg by mouth daily, and home dose of eliquis 2.5 mg 11/01/2022 Patient improving slowly and gradually, today he states an outpatient in bed and he feels better. He is blood pressure is low normal since admission, and he remains stable, slightly tachycardic with heart rate around 109 but improving. Leukocytosis also improving significantly down to 12,000 after started on ceftriaxone. Patient received 1 exudates of IV Lasix today Cardiology input is appreciated. Possible discharge in 24-48 hours 11/02/2022 Patient today was still complaining of from some respiratory difficulty with ongoing significant coughing We obtained repeat chest x-ray which showed worsening infiltrates in both sides while he is on ceftriaxone, most likely patient has gram-negative pneumonia secondary to hospital-acquired pneumonia Return to change antibiotics to Zosyn with close monitoring Supervisor Pumping on the case 11/03/2021 Patient is awake and alert, still have little tachypnea and dyspnea also a still coughing. Yesterday chest x-ray was worse showing pneumonia his pro-calcitonin is slightly elevated 0.17. His antibiotic was adjusted to Zosyn. His creatinine went up slightly 1.4 today, is slightly hypotensive and bradycardic and therefore would lower the dose of metoprolol. Carranza catheter in place. And medication were reviewed. We'll try to avoid nephrotoxic medications. Check labs in the morning cardiology was is doing well Also we will lower the dose of Lasix to 20 mg daily 11/04/2022 Patient feels better, his breathing is better, he has less coughing however not completely resolved. Also he feels stronger Continued on Zosyn for his hospital-acquired pneumonia and it looks is improving His atrial fibrillation is controlled rate, his blood pressure is borderline and is doing well with metoprolol 12.5 mg twice a day. Cardiology team already evaluated the patient. 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 His kidney function is slightly worse 1.4 up to 1.5, most likely secondary to Lasix effect and borderline blood pressure that there would lower the dose of Lasix to 20 mg daily 11/05/2022 Patient is currently sitting in a chair. Awake alert and oriented. No complaints of chest pain or worsening shortness of breath. Patient is being continued on Lasix 20 mg daily. Cardiology is on board. 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 Ost irish is functioning with small amount of stool in the bed. Denied any abdominal pain. Patient has been afebrile. No nausea or vomiting. Laboratory data showed Laboratory data showed sodium 130 potassium 4.4 chloride 100 bicarb is 23.4 BUN 32.9 and creatinine 1.5 11/06/2022 Patient is currently sitting in the chair comfortably. Awake alert and oriented but slow to progress on. No complaints of chest pain or worsening shortness of breath. Next and patient will be continued on Lasix 20 mg daily and also on Aldactone. Cleared from cardiology standpoint. Patient will need parastomal hernia repair once medically stable. Follow with Dr. Dean as an outpatient. patient has been afebrile. No other acute overnight issues. Laboratory data showed WBC 9.2 hemoglobin 9.4 and platelets 381 sodium 138 potassium 4.30-103 bicarb is 23.9 BUN 30.9 and creatinine is stable at 1.5. Patient will be continued on antibiotics, moxifloxacin for pneumonia to complete the course.. Patient is being discharged to [facility] today. - Exam -GENERAL: The patient is alert and oriented x3, not in any acute distress. Well developed, well nourished. Generally weak HEENT: Pupils are round and equally reacting to light. EOMI. No scleral icterus. No conjunctival pallor. Normocephalic, atraumatic. No pharyngeal erythema. No thyromegaly. CARDIOVASCULAR: S1 and S2 present. No murmurs, rubs, or gallops. -PULMONARY: Chest is clear to auscultation, no wheezing or crackles. Weak coughing ABDOMEN: Soft, nontender, nondistended, normoactive bowel sounds. Colostomy with parastomal prolapse. Stool noted in the colostomy back. No palpable organomegaly. MUSCULOSKELETAL: No joint swelling or deformity. EXTREMITIES: No cyanosis, clubbing, or pedal edema. NEUROLOGICAL: Gross neurological examination did not reveal any focal deficits. SKIN: No rashes. no petechiae. Vital Signs Vital signs: Vital Signs Temp 97.7 F 11/06/22 07:53 Pulse 61 11/06/22 07:53 Resp 17 11/06/22 07:53 BP 99/51 11/06/22 07:53 Pulse Ox 93 L 11/06/22 09:05 FiO2 21 11/03/22 07:56 Intake & Output 11/05/22 11/06/22 11/06/22 18:59 06:59 18:59 Intake Total 1080 Output Total 1200 500 Balance -120 -500 Intake: Oral 1080 Output: Urine 1200 500 Other: Voiding Method Indwelling Catheter Indwelling Catheter Total time taken greater than 35 minutes including 18 minutes for counseling and coordination of care. Patient Condition at Discharge: Fair Plan - Discharge Summary Discharge Rx Participant: Yes New Discharge Prescriptions: New Amiodarone [Cordarone] 200 mg PO BID #60 tab Furosemide [Lasix] 20 mg PO DAILY #30 tab Spironolactone [Aldactone] 25 mg PO DAILY #30 tab Dapagliflozin Propanediol [Farxiga] 10 mg PO DAILY #30 tab Moxifloxacin HCl [Avelox] 400 mg PO DAILY #3 tab Continue Tamsulosin HCl [Flomax] 0.4 mg PO DAILY Pantoprazole Sodium [Protonix] 40 mg PO DAILY Metoprolol Succinate (ER) [Toprol XL] 25 mg PO DAILY tab Albuterol Inhaler [Ventolin Hfa Inhaler] 2 puff INHALATION RT-Q6H bisacodyL [Dulcolax] 10 mg RECTAL DAILY PRN PRN Reason: Constipation Ensure Enlive 237 ml PO TID@0800,1200,1700 Apixaban [Eliquis] 2.5 mg PO BID@0800,1700 Eucerin Advanced Repair Cream 1 applic TOPICAL DAILY Aspirin 81 mg PO DAILY@1200 Na Phos,M-B/Na Phos,Di-Ba [Fleet Adult] 133 ml RECTAL DAILY PRN PRN Reason: Constipation Magnesium Hydroxide [Milk of Magnesia Concentrate] 7,200 mg PO Q48H PRN PRN Reason: Constipation Eucerin Advanced Repair Cream 1 applic TOPICAL DAILY PRN PRN Reason: Dry Skin Discontinued Potassium Chloride [Klor-Con M10] 10 meq PO DAILY@1700 Furosemide [Lasix] 40 mg PO DAILY tab lisinopriL [Zestril] 2.5 mg PO DAILY tab cefUROXime axetiL [Ceftin] 500 mg PO BID 3 Days #6 tab Discharge Medication List Tamsulosin HCl [Flomax] 0.4 mg PO DAILY 02/14/18 [History] Pantoprazole Sodium [Protonix] 40 mg PO DAILY 10/20/22 [History] Metoprolol Succinate (ER) [Toprol XL] 25 mg PO DAILY tab 10/24/22 [Rx] Albuterol Inhaler [Ventolin Hfa Inhaler] 2 puff INHALATION RT-Q6H 10/28/22 [History] Apixaban [Eliquis] 2.5 mg PO BID@0800,1700 10/28/22 [History] Aspirin 81 mg PO DAILY@1200 10/28/22 [History] Ensure Enlive 237 ml PO TID@0800,1200,1700 10/28/22 [History] Eucerin Advanced Repair Cream 1 applic TOPICAL DAILY 10/28/22 [History] Eucerin Advanced Repair Cream 1 applic TOPICAL DAILY PRN 10/28/22 [History] Magnesium Hydroxide [Milk of Magnesia Concentrate] 7,200 mg PO Q48H PRN 10/28/22 [History] Na Phos,M-B/Na Phos,Di-Ba [Fleet Adult] 133 ml RECTAL DAILY PRN 10/28/22 [History] bisacodyL [Dulcolax] 10 mg RECTAL DAILY PRN 10/28/22 [History] Amiodarone [Cordarone] 200 mg PO BID #60 tab 11/06/22 [Rx] Dapagliflozin Propanediol [Farxiga] 10 mg PO DAILY #30 tab 11/06/22 [Rx] Furosemide [Lasix] 20 mg PO DAILY #30 tab 11/06/22 [Rx] Moxifloxacin HCl [Avelox] 400 mg PO DAILY #3 tab 11/06/22 [Rx] Spironolactone [Aldactone] 25 mg PO DAILY #30 tab 11/06/22 [Rx] Follow up Appointment(s)/Referral(s): Josh Mcallister MD [Primary Care Provider] - 1-2 days Shaniqua Salmon MD [STAFF PHYSICIAN] - 1 Week Activity/Diet/Wound Care/Special Instructions: optifoam 6x6 to coccyx optifoam to left foot Discharge Disposition: TRANSFER TO SNF/ECF
== END 2022-11-06 14:37 | DRG 291 ==
LOC: EC 00:59 → 3SCARD 05:46 → 4SSUR 11-04 06:48
PROVIDERS: ADMIT Hospitalist; ATTEND Hospitalist
DX: I11.0 Hypertensive heart disease with heart failure (principal); I50.23 Acute on chronic systolic (congestive) heart failure; J15.6 Pneumonia due to other Gram-negative bacteria; I48.21 Permanent atrial fibrillation; I69.351 Hemiplegia and hemiparesis following cerebral infarction affecting right dominant side; N17.9 Acute kidney failure, unspecified; N39.0 Urinary tract infection, site not specified; I45.2 Bifascicular block; E44.0 Moderate protein-calorie malnutrition; L89.152 Pressure ulcer of sacral region, stage 2; L89.892 Pressure ulcer of other site, stage 2; I69.328 Other speech and language deficits following cerebral infarction; I42.9 Cardiomyopathy, unspecified; I95.9 Hypotension, unspecified; I34.0 Nonrheumatic mitral (valve) insufficiency; I27.20 Pulmonary hypertension, unspecified; D64.9 Anemia, unspecified; E78.5 Hyperlipidemia, unspecified; K21.9 Gastro-esophageal reflux disease without esophagitis; K43.5 Parastomal hernia without obstruction or gangrene; K59.00 Constipation, unspecified; N40.0 Benign prostatic hyperplasia without lower urinary tract symptoms; Y95 Nosocomial condition; Z79.01 Long term (current) use of anticoagulants; Z79.82 Long term (current) use of aspirin; Z79.899 Other long term (current) drug therapy; Z86.711 Personal history of pulmonary embolism; Z86.718 Personal history of other venous thrombosis and embolism; Z86.010 Personal history of colon polyps; Z90.49 Acquired absence of other specified parts of digestive tract; Z98.1 Arthrodesis status; Z68.20 Body mass index [BMI] 20.0-20.9, adult
CPT/HCPCS: 36415; 71045; 71046; 74018; 80048; 80053; 81001; 83605; 83735; 83880; 84145; 84484; 85025; 85027; 85610; 85730; 87086; 87635; 87636; 93005; 94640; 94760; 96365; 96366; 96375; 99291

== ENCOUNTER 2022-12-14 13:55 | Inpatient (IN) | payer MEDICARE ==
[2022-12-14] MEDS ORDERED: SODIUM CHLORIDE 0.9% 500 ML 500 ML IV STA (14:05)
--- NOTE | 2022-12-14 14:10 | ED ---
General Adult HPI - General Stated complaint: stoma issues Time Seen by Provider: 12/14/22 13:57 - History of Present Illness Initial comments: Dictation was produced using [employer] dictation software. please excuse any grammatical, word or spelling errors. Chief Complaint: 87-year-old male presents with prolapsed bowel and prolapsed stoma History of Present Illness: Patient is a 87-year-old male he has multiple comorbidities. Favor 2020 patient had sigmoid colon colectomy and end colostomy performed by Dr. Daen. Patient was sitting on the toilet when he lost his balance slid forward all of a sudden who was doing a change noticed that his bowel had perforated through his stoma site. Patient denies any complaints at this time. The ROS documented in this emergency department record has been reviewed and confirmed by me. Those systems with pertinent positive or negative responses have been documented in the HPI. All other systems are other negative and/or noncontributory. - Related Data Home Medications Medication Instructions Recorded Confirmed Tamsulosin HCl [Flomax] 0.4 mg PO DAILY 02/14/18 10/28/22 Pantoprazole Sodium [Protonix] 40 mg PO DAILY 10/20/22 10/28/22 Albuterol Inhaler [Ventolin Hfa 2 puff INHALATION RT-Q6H 10/28/22 10/28/22 Inhaler] Apixaban [Eliquis] 2.5 mg PO BID@0800,1700 10/28/22 10/28/22 Aspirin 81 mg PO DAILY@1200 10/28/22 10/28/22 Ensure Enlive 237 ml PO TID@0800,1200,1700 10/28/22 10/28/22 Eucerin Advanced Repair Cream 1 applic TOPICAL DAILY 10/28/22 10/28/22 Eucerin Advanced Repair Cream 1 applic TOPICAL DAILY PRN 10/28/22 10/28/22 Magnesium Hydroxide [Milk of 7,200 mg PO Q48H PRN 10/28/22 10/28/22 Magnesia Concentrate] Na Phos,M-B/Na Phos,Di-Ba [Fleet 133 ml RECTAL DAILY PRN 10/28/22 10/28/22 Adult] bisacodyL [Dulcolax] 10 mg RECTAL DAILY PRN 10/28/22 10/28/22 Previous Rx's Medication Instructions Recorded Metoprolol Succinate (ER) [Toprol 25 mg PO DAILY tab 10/24/22 XL] Amiodarone [Cordarone] 200 mg PO BID #60 tab 11/06/22 Dapagliflozin Propanediol [Farxiga] 10 mg PO DAILY #30 tab 11/06/22 Furosemide [Lasix] 20 mg PO DAILY #30 tab 11/06/22 Moxifloxacin HCl [Avelox] 400 mg PO DAILY #3 tab 11/06/22 Spironolactone [Aldactone] 25 mg PO DAILY #30 tab 11/06/22 Allergies Allergy/AdvReac Type Severity Reaction Status Date / Time memantine [From Namenda] AdvReac Nausea & Verified 12/14/22 14:11 Vomiting & Diarrhea Review of Systems ROS Statement: Those systems with pertinent positive or pertinent negative responses have been documented in the HPI. ROS Other: All systems not noted in ROS Statement are negative. 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 History of Any Multi-Drug Resistant Organisms: None Reported Past Surgical History: Bowel Resection Additional Past Surgical History / Comment(s): 2020 bowel resection/colostomy, CVA in 1955 which made need for R elbow surgery/R ankle fusion, post cva surgery on back to remove blood clot, bilateral eye lens implants. Past Anesthesia/Blood Transfusion Reactions: No Reported Reaction Additional Past Anesthesia/Blood Transfusion Reaction / Comment(s): Pt believes he has received blood in past without reaction. Past Psychological History: No Psychological Hx Reported Smoking Status: Former smoker Past Alcohol Use History: None Reported Past Drug Use History: None Reported - Past Family History Mother Family Medical History: Dementia Additional Family Medical History / Comment(s): ALZHEIMERS Father Family Medical History: No Reported History Additional Family Medical History / Comment(s): Pt states his father was healthy General Exam - General Exam Comments Initial Comments: PHYSICAL EXAM: General Impression: Alert and oriented x3, not in acute distress HEENT: Normocephalic atraumatic, extra-ocular movements intact, pupils equal and reactive to light bilaterally, mucous membranes moist. Cardiovascular: Heart regular rate and rhythm Chest: Able to complete full sentences, no retractions, no tachypnea Abdomen: Prolapsed stoma with approximately 6 inches protruding from the stoma site. There is also appears to be a defect in the inferior portion of the stoma wound with approximately 18 inches of prolapse small bowel Musculoskeletal: Pulses present and equal in all extremities, no peripheral edema Motor: no focal deficits noted Neurological: CN II-XII grossly intact, no focal motor or sensory deficits noted Skin: Intact with no visualized rashes Psych: Normal affect and mood Course Vital Signs 12/14/22 14:03 Temperature 96.7 F L Pulse Rate 89 Respiratory 20 Rate Blood Pressure 128/75 O2 Sat by Pulse 96 Oximetry Medical Decision Making - Medical Decision Making Was pt. sent in by a medical professional or institution (, PA, COP BREAKER, urgent care, hospital, or shelter...) When possible be specific @ -No Did you speak to anyone other than the patient for history (EMS, parent, family, police, friend...)? What history was obtained from this source @ - and EMS Did you review nursing and triage notes (agree or disagree)? Why? @ -I reviewed and agree with nursing and triage notes Were old charts reviewed (outside hosp., previous admission, EMS record, old EKG, old radiological studies, urgent care reports/EKG's, shelter records)? Report findings @ -Prior operative notes were reviewed. Operative note from 10/20/2020 was reviewed showing the patient had abdominal surgery and stoma surgery Differential Diagnosis (chest pain, altered mental status, abdominal pain women, abdominal pain men, vaginal bleeding, musculoskeletal, weakness, fever, dyspnea, syncope, headache, dizziness, GI bleed, back pain, seizure, CVA, palpatations, mental health)? @ -Differential Abdominal Pain Men: Appendicitis, cholecystitis, diverticulosis, ischemic bowel, pancreatitis, hepatitis, UTI, gastroenteritis, AAA, incarcerated hernia, bowel obstruction, constipation, inflammatory bowel, hepatitis, peptic ulcer disease, splenic infarction, perforated viscus, testicular torsion, this is not meant to be an all-inclusive list EKG interpreted by me (3pts min.). @ -None done X-rays interpreted by me (1pt min.). @ -None done CT interpreted by me (1pt min.). @ -None done U/S interpreted by me (1pt. min.). @ -None done What testing was considered but not performed or refused? (CT, X-rays, U/S, labs)? Why? @ -None What meds were considered but not given or refused? Why? @ -None Did you discuss the management of the patient with other professionals (professionals i.e. , PA, COP BREAKER, lab, RT, psych nurse, social services designee, environmental control administrator, teacher, title officer, case consultant)? Give summary @ -Case discussed with general surgeon, Dr. Amin will take patient to the operating room for intervention Was smoking cessation discussed for >3mins.? @ -No Was critical care preformed (if so, how long)? @ -No Were there social determinants of health that impacted care today? How? (Homelessness, low income, unemployed, alcoholism, drug addiction, transportation, low edu. Level, literacy, decrease access to med. care, intermediate, rehab)? @ -No Was there de-escalation of care discussed even if they declined (Discuss DNR or withdrawal of care, Hospice)? DNR status @ -No What co-morbidities impacted this encounter? (DM, HTN, Smoking, COPD, CAD, Cancer, CVA, ARF, Chemo, Hep., AIDS, mental health diagnosis, sleep apnea, morbid obesity)? @ -None Was patient admitted / discharged? Hospital course, mention meds given and route, prescriptions, significant lab abnormalities, going to OR and other pertinent info. @ -87-year-old male presents to emergency Department with stoma herniation and herniated small bowel. He is exposed bowel contents. Case discussed with general surgeon on-call who will take patient to the operating room for intervention. Undiagnosed new problem with uncertain prognosis? @ -No Drug Therapy requiring intensive monitoring for toxicity (Heparin, Nitro, Insulin, Cardizem)? @ -No Were any procedures done? @ -No Diagnosis/symptom? Acute, or Chronic, or Acute on Chronic? Uncomplicated (without systemic symptoms) or Complicated (systemic symptoms)? @ -1. Herniated bowel Side effects of treatment? @ -No Exacerbation, Progression, or Severe Exacerbation? @ -No Poses a threat to life or bodily function? How? (Chest pain, USA, MS, pneumonia, PE, COPD, DKA, ARF, appy, cholecystitis, CVA, Diverticulitis, Homicidal, Suicidal, threat to staff... and all critical care pts) @ -yes Disposition Clinical Impression: Evisceration of bowel Disposition: ADMITTED IP TO THIS HOSP Condition: Serious Referrals: Eleuterio Dean MD [Primary Care Provider] - 1-2 days Decision Time: 14:14
[2022-12-14] MEDS ORDERED: NALOXONE 0.4 MG/ML 1 ML VIAL IV PRN (14:14)
[2022-12-14] MEDS: SODIUM CHLORIDE 0.9% 1,000 ML IV SCH ×2 (14:25→23:07)
[2022-12-14 14:54] LABS: Basophils % (A) 0 %; Eosinophils % (A) 0 %; HCT 37.2 % (39.0-53.0); HGB 11.8 gm/dL (13.0-17.5); Lymphocytes # (A) 0.9 k/uL (1.0-4.8); Lymphocytes % (A) 6 %; MCH 27.9 pg (25.0-35.0); MCHC 31.6 g/dL (31.0-37.0); Mean Platelet Volume 8.2; Monocytes # (A) 0.5 k/uL (0-1.0); Monocytes % (A) 3 %; Neutrophils # (A) 13.8 k/uL (1.3-7.7); Neutrophils % (A) 90 %; Platelet Count 395 k/uL (150-450); RBC 4.21 m/uL (4.30-5.90); RDW 15.2 % (11.5-15.5); WBC 15.3 k/uL (3.8-10.6)
[2022-12-14 14:55] LABS: Calcium 9.1 mg/dL (8.4-10.2); Potassium 4.8 mmol/L (3.5-5.1)
[2022-12-14 14:56] LABS: MCV 88.3 fL (80.0-100.0)
[2022-12-14 15:12] LABS: INR 1.1 (<1.2); Partial Thromboplastin Time 24.1 sec (22.0-30.0); Prothrombin Time 11.3 sec (9.0-12.0)
[2022-12-14] MEDS ORDERED: IV FLUID CONTINUATION 1,000 ML IV ONE ×2 (15:14→15:15)
[2022-12-14] MEDS ORDERED: ONDANSETRON 4 MG/2 ML VIAL IVP ONE (15:21)
[2022-12-14] MEDS ORDERED: DEXAMETHASONE SOD PHOSPHATE 4 MG/ML 1 ML VIAL IVP ONE (15:21)
[2022-12-14] MEDS ORDERED: ONDANSETRON 4 MG/2 ML VIAL ONE ×2 (15:23→15:27)
[2022-12-14] MEDS ORDERED: ePHEDrine 50 MG/ML 1 ML VIAL ONE (15:27)
[2022-12-14] MEDS ORDERED: PHENYLEPHRINE-0.9% NACL SYG 1,000 MCG/10 ML SYRINGE ONE (15:27)
[2022-12-14] MEDS ORDERED: fentaNYL (PF) 50 MCG/ML 2 ML AMP ONE (15:27)
[2022-12-14] MEDS ORDERED: SUCCINYLCHOLINE CHLORIDE 200 MG/10 ML VIAL IV ONE (15:27)
[2022-12-14] MEDS ORDERED: ROCURONIUM 10 MG/ML (5 ML VIAL) IV ONE (15:27)
[2022-12-14] MEDS ORDERED: GLYCOPYRROLATE 0.2 MG/ML 2 ML VIAL ONE (15:27)
[2022-12-14] MEDS ORDERED: NEOSTIGMINE 1 MG/ML 10 ML VIAL ONE (15:27)
[2022-12-14] MEDS ORDERED: PROPOFOL 10 MG/ML 20 ML VIAL IV ONE (15:27)
[2022-12-14] MEDS ORDERED: SODIUM CHLORIDE 0.9% 50 ML with ceFAZolin 2,000 MG IV ONE ×2 (15:50)
[2022-12-14] MEDS ORDERED: LACTATED RINGERS 1,000 ML IV ONE (16:53)
--- NOTE | 2022-12-14 17:13 | P.GSHP ---
History of Present Illness H&P Date: 12/14/22 Chief Complaint: Evisceration This is an 87-year-old male with a known history of parastomal hernia. Patient apparently was getting onto the toilet when his hernia ruptured and eviscerated approximately 3 feet of small bowel at the colostomy site. This happened earlier today. Patient does take L Rohan and received L Rohan this morning. 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 History of Any Multi-Drug Resistant Organisms: None Reported Past Surgical History: Bowel Resection Additional Past Surgical History / Comment(s): 2020 bowel resection/colostomy, CVA in 1955 which made need for R elbow surgery/R ankle fusion, post cva surgery on back to remove blood clot, bilateral eye lens implants. Past Anesthesia/Blood Transfusion Reactions: No Reported Reaction Additional Past Anesthesia/Blood Transfusion Reaction / Comment(s): Pt believes he has received blood in past without reaction. Past Psychological History: No Psychological Hx Reported Smoking Status: Former smoker Past Alcohol Use History: None Reported Past Drug Use History: None Reported - Past Family History Mother Family Medical History: Dementia Additional Family Medical History / Comment(s): ALZHEIMERS Father Family Medical History: No Reported History Additional Family Medical History / Comment(s): Pt states his father was healthy Medications and Allergies Home Medications Medication Instructions Recorded Confirmed Type Tamsulosin HCl [Flomax] 0.4 mg PO DAILY 02/14/18 12/14/22 History Pantoprazole Sodium [Protonix] 40 mg PO DAILY 10/20/22 12/14/22 History Metoprolol Succinate (ER) [Toprol 25 mg PO DAILY tab 10/24/22 12/14/22 Rx XL] Albuterol Inhaler [Ventolin Hfa 2 puff INHALATION RT-Q6H 10/28/22 12/14/22 History Inhaler] Apixaban [Eliquis] 2.5 mg PO BID@0800,1700 10/28/22 12/14/22 History Aspirin 81 mg PO DAILY@1200 10/28/22 12/14/22 History Ensure Enlive 237 ml PO TID@0800,1200,1700 10/28/22 12/14/22 History Eucerin Advanced Repair Cream 1 applic TOPICAL DAILY 10/28/22 12/14/22 History Eucerin Advanced Repair Cream 1 applic TOPICAL DAILY PRN 10/28/22 12/14/22 History Magnesium Hydroxide [Milk of 7,200 mg PO Q48H PRN 10/28/22 12/14/22 History Magnesia Concentrate] Na Phos,M-B/Na Phos,Di-Ba [Fleet 133 ml RECTAL DAILY PRN 10/28/22 12/14/22 History Adult] bisacodyL [Dulcolax] 10 mg RECTAL DAILY PRN 10/28/22 12/14/22 History Dapagliflozin Propanediol [Farxiga] 10 mg PO DAILY #30 tab 11/06/22 12/14/22 Rx Furosemide [Lasix] 20 mg PO DAILY #30 tab 11/06/22 12/14/22 Rx Spironolactone [Aldactone] 25 mg PO DAILY #30 tab 11/06/22 12/14/22 Rx Amiodarone [Cordarone] 200 mg PO BID@0800,1700 12/14/22 12/14/22 History methylPREDNISolone Dose Pack See Taper PO DIRECTED 12/14/22 12/14/22 History [Medrol Dose Pack] Allergies Allergy/AdvReac Type Severity Reaction Status Date / Time memantine [From Namenda] AdvReac Nausea & Verified 12/14/22 16:29 Vomiting & Diarrhea Surgical - Exam Vital Signs Temp Pulse Resp BP Pulse Ox 96.7 F L 89 20 128/75 96 12/14/22 14:03 12/14/22 14:03 12/14/22 14:03 12/14/22 14:03 12/14/22 14:03 - General well developed, moderate distress - Eyes PERRL - ENT normal pinna - Neck no masses - Respiratory normal expansion - Cardiovascular Rhythm: regular - Abdomen Parastomal hernia with evisceration there is approximately 2-1/2 feet of small bowel eviscerated Abdomen: soft, non tender Results - Labs 12/14/22 14:20 12/14/22 14:20 Abnormal Lab Results - Last 24 Hours (Table) 12/14/22 12/14/22 Range/Units 14:20 14:20 WBC 15.3 H (3.8-10.6) k/uL RBC 4.21 L (4.30-5.90) m/uL Hgb 11.8 L (13.0-17.5) gm/dL Hct 37.2 L (39.0-53.0) % Neutrophils # 13.8 H (1.3-7.7) k/uL Lymphocytes # 0.9 L (1.0-4.8) k/uL BUN 41 H (9-20) mg/dL Glucose 102 H (74-99) mg/dL Diabetes panel 12/14/22 Range/Units 14:20 Sodium 137 (137-145) mmol/L Potassium 4.8 (3.5-5.1) mmol/L Chloride 102 (98-107) mmol/L Carbon Dioxide 24 (22-30) mmol/L BUN 41 H (9-20) mg/dL Creatinine 1.17 (0.66-1.25) mg/dL Glucose 102 H (74-99) mg/dL Calcium 9.1 (8.4-10.2) mg/dL Calcium panel 12/14/22 Range/Units 14:20 Calcium 9.1 (8.4-10.2) mg/dL Pituitary panel 12/14/22 Range/Units 14:20 Sodium 137 (137-145) mmol/L Potassium 4.8 (3.5-5.1) mmol/L Chloride 102 (98-107) mmol/L Carbon Dioxide 24 (22-30) mmol/L BUN 41 H (9-20) mg/dL Creatinine 1.17 (0.66-1.25) mg/dL Glucose 102 H (74-99) mg/dL Calcium 9.1 (8.4-10.2) mg/dL Adrenal panel 12/14/22 Range/Units 14:20 Sodium 137 (137-145) mmol/L Potassium 4.8 (3.5-5.1) mmol/L Chloride 102 (98-107) mmol/L Carbon Dioxide 24 (22-30) mmol/L BUN 41 H (9-20) mg/dL Creatinine 1.17 (0.66-1.25) mg/dL Glucose 102 H (74-99) mg/dL Calcium 9.1 (8.4-10.2) mg/dL Assessment and Plan Plan: Evisceration through parastomal hernia. Patient will undergo emergent exploratory laparotomy repair of evisceration and parastomal hernia today. I explained the family and that he is extremely high risk due to his underlying medical problems. He is also high risk of bleeding due to his recent antiplatelet therapy.
--- NOTE | 2022-12-14 17:17 | P.OP ---
Date of Procedure: 12/14/22 Preoperative Diagnosis: Parastomal hernia with evisceration Postoperative Diagnosis: Parastomal hernia with evisceration Procedure(s) Performed: Exploratory laparotomy Repair of parastomal hernia Takedown of splenic flexure Partial colectomy And colostomy in right upper quadrant Anesthesia: MAAME Surgeon: Polo Amin Estimated Blood Loss (ml): 200 Pathology: other (colon) Condition: critical Disposition: ICU Description of Procedure: Patient's placed on the operative table in the supine position. He received general endotracheal tube and see. His abdomen was prepped and draped usual fashion. The patient had a large parastomal hernia with evisceration. The skin was incised in midline. The abdominal wall retractors placed a wound. The small bowel contents which had eviscerated was then reduced back the peritoneal cavity. The prolapse colon was also reduced back the pleural cavity. The patient had a large parastomal hernia. The portion of the colon appeared to be ischemic. At this point as it was decided to move the colostomy to the right abdominal wall. The mesentery of the bowel was then divided with the LigaSure device. The splenic flexure was taken down with blunt and sharp dissection with cautery and the LigaSure device. The mesentery of the transverse colon was then divided using the LigaSure device. A suitable spot for the colostomy in the right upper quadrant was performed by dividing the abdominal wall left cautery. The colon was then brought through the colostomy site. The parastomal hernia was then repaired using. 0 Ethibond suture. The abdomen was irrigated is no bleeding seen. The splenic flexure was examined. There was a small amount of oozing from the splenic flexure. Surgicel pallor was placed over top of this there was no further bleeding seen. The fascia was then closed in looped #1 PDS suture. Skin was closed abdoulaye. The the old colostomy site was then closed with abdoulaye. [place] drain was placed into the subcu area the colostomy site. Thecolon was then transected and the colon was opened and the colostomy then matured at the right upper quadrant. The redundant colon had been sent to pathology. 3-0 Vicryl was used to mature the colostomy. The hospitalist applied. Sterile dressing was applied. Patient top she will was sent to recovery room in stable condition.
[2022-12-14] MEDS ORDERED: HYDROmorphone 0.5 MG/0.5 ML SYRINGE IVP ONE (18:16)
--- NOTE | 2022-12-14 18:52 | P.CNPUL ---
History of Present Illness Consult date: 12/14/22 Chief complaint: Parastomal hernia and bowel evisceration History of present illness: 87-year-old male patient, multiple no comorbidities, with a previous history of a perforated rectum due to fecal impaction was underwent an emergent sigmoid co lectomy and diverting colostomy creation by general surgery in September 2020. The patient was in the hospital back in October 2022 because of swelling and prolapse of his ostomy site. He wanted to have his colostomy reversed. However due to pre-existing cardiac conditions and other comorbidities, this was not done. He was considered to be very high risk. Noted the patient is known to have chronic systolic heart failure, and is also known to have previous history of chronic atrial fibrillation, CVA, DVT and he has limited on anticoagulation with Eliquis. Other comorbid conditions include hypertension and hyperlipidemia and previous history of pulmonary embolism. He has issues also with BPH and protein calorie malnutrition. The patient as such is chronically debilitated. The patient presented himself to the emergency department today. Apparently was getting to the toilet and his hernia rupture then eviscerated approximately 3 feet of small bowel emergency at the colostomy site. For that reason, the patient came into the emergency department. He was hemodynamically stable. His labs showed a white cell count of 15 with a hemoglobin 11.8 and a platelet count of 398. BUN was 41 with a creatinine of 1.1 and a sodium level is 137. Based on that, the patient was taken to the operating room and the patient underwent repair of a parastomal hernia, taking down of the splenic flexure, partial colectomy and colostomy in the right upper quadrant. Estimated blood loss was 200 mL. The patient currently is having some bloody oozing into his colostomy bag. Surgical wound is dry clean and intact. Note that he was on anticoagulation with Eliquis preoperatively. His cognition profile has been essentially within normal limits. Chest x-ray in the OR showed pulmonary vessel congestion, possibly left-sided pleural effusion and the air in his abdomen occupying under the diaphragm. Review of Systems ROS unobtainable: due to mental status Past Medical History Past Medical History: Atrial Fibrillation, CVA/TIA, Deep Vein Thrombosis (DVT), Hyperlipidemia, Hypertension, Prostate Disorder, Pulmonary Embolus (PE), Supraventricular Tachycardia (SVT) Additional Past Medical History / Comment(s): 89 CVA with R sided weakness/speech difficulty, post cva pt states he had a blood clot that went into his back/surgery to remove, , 2020 fecal impaction/bowel perforation with sepsis/has colostomy, colitis, colon polyps, perstomal hernia/wears abdominal binder, past htn, BPH, pt states lasix started d/t edema, protein calorie malnutrition. History of Any Multi-Drug Resistant Organisms: None Reported Past Surgical History: Bowel Resection Additional Past Surgical History / Comment(s): 2020 bowel resection/colostomy, CVA in 1955 which made need for R elbow surgery/R ankle fusion, post cva surgery on back to remove blood clot, bilateral eye lens implants. Past Anesthesia/Blood Transfusion Reactions: No Reported Reaction Additional Past Anesthesia/Blood Transfusion Reaction / Comment(s): Pt believes he has received blood in past without reaction. Past Psychological History: No Psychological Hx Reported Smoking Status: Former smoker Past Alcohol Use History: None Reported Past Drug Use History: None Reported - Past Family History Mother Family Medical History: Dementia Additional Family Medical History / Comment(s): ALZHEIMERS Father Family Medical History: No Reported History Additional Family Medical History / Comment(s): Pt states his father was healthy Medications and Allergies Home Medications Medication Instructions Recorded Confirmed Type Tamsulosin HCl [Flomax] 0.4 mg PO DAILY 02/14/18 12/14/22 History Pantoprazole Sodium [Protonix] 40 mg PO DAILY 10/20/22 12/14/22 History Metoprolol Succinate (ER) [Toprol 25 mg PO DAILY tab 10/24/22 12/14/22 Rx XL] Albuterol Inhaler [Ventolin Hfa 2 puff INHALATION RT-Q6H 10/28/22 12/14/22 History Inhaler] Apixaban [Eliquis] 2.5 mg PO BID@0800,1700 10/28/22 12/14/22 History Aspirin 81 mg PO DAILY@1200 10/28/22 12/14/22 History Ensure Enlive 237 ml PO TID@0800,1200,1700 10/28/22 12/14/22 History Eucerin Advanced Repair Cream 1 applic TOPICAL DAILY 10/28/22 12/14/22 History Eucerin Advanced Repair Cream 1 applic TOPICAL DAILY PRN 10/28/22 12/14/22 History Magnesium Hydroxide [Milk of 7,200 mg PO Q48H PRN 10/28/22 12/14/22 History Magnesia Concentrate] Na Phos,M-B/Na Phos,Di-Ba [Fleet 133 ml RECTAL DAILY PRN 10/28/22 12/14/22 History Adult] bisacodyL [Dulcolax] 10 mg RECTAL DAILY PRN 10/28/22 12/14/22 History Dapagliflozin Propanediol [Farxiga] 10 mg PO DAILY #30 tab 11/06/22 12/14/22 Rx Furosemide [Lasix] 20 mg PO DAILY #30 tab 11/06/22 12/14/22 Rx Spironolactone [Aldactone] 25 mg PO DAILY #30 tab 11/06/22 12/14/22 Rx Amiodarone [Cordarone] 200 mg PO BID@0800,1700 12/14/22 12/14/22 History methylPREDNISolone Dose Pack See Taper PO DIRECTED 12/14/22 12/14/22 History [Medrol Dose Pack] Allergies Allergy/AdvReac Type Severity Reaction Status Date / Time memantine [From Namenda] AdvReac Nausea & Verified 12/14/22 16:29 Vomiting & Diarrhea Physical Exam Vitals: Vital Signs Temp Pulse Pulse Resp BP BP Pulse Ox 12/14/22 18:41 99/55 12/14/22 18:37 80 18 88/54 96 12/14/22 18:22 79 16 97/52 93 L 12/14/22 18:07 92 16 114/68 95 12/14/22 17:52 96 20 108/75 94 L 12/14/22 17:36 97.0 F L 69 18 111/66 98 12/14/22 15:16 97.0 F L 16 111/67 97 12/14/22 14:34 97.2 F L 82 20 120/68 98 12/14/22 14:03 96.7 F L 89 20 128/75 96 Intake and Output 12/14/22 12/14/22 12/14/22 06:59 14:59 22:59 Intake Total 1600 Output Total 1500 Balance 100 Intake: IV 1600 Output: Urine 1300 Estimated Blood Loss 200 Other: Weight 63.503 kg Gen. appearance, lethargic, sleepy, postop, still under the effect of anesthetics. Currently on oxygen with nasal cannula at 4 L/m Head exam was generally normal. There was no scleral icterus or corneal arcus. Mucous membranes were moist. Neck was supple and with jugular venous distension, thyromegaly, or carotid bruits. Carotids were easily palpable bilaterally. There was no adenopathy. Lungs sounds are diminished bilaterally along with some limited bibasilar crackles. The patient has some dullness to percussion left. Heart sounds are irregular consistent with atrial fibrillation. Positive S1-S2. No significant murmurs appreciated. 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 Surgical one-sided dry clean and intact. No direct tenderness, rebound tenderness or guarding. Examination of the extremities revealed easily palpable radial, femoral and pedal pulses. There was no cyanosis, clubbing or edema. Examination of the skin revealed no evidence of significant rashes, suspicious appearing nevi or other concerning lesions. Neurologically, awake and alert, lethargic and sleepy under the effect of anesthetics. Results - Laboratory Findings CBC and BMP: 12/14/22 14:20 12/14/22 14:20 ABG WBC 15.3 k/uL (3.8-10.6) H 12/14/22 14:20 RBC 4.21 m/uL (4.30-5.90) L 12/14/22 14:20 Hgb 11.8 gm/dL (13.0-17.5) L 12/14/22 14:20 Hct 37.2 % (39.0-53.0) L 12/14/22 14:20 MCV 88.3 fL (80.0-100.0) D 12/14/22 14:20 MCH 27.9 pg (25.0-35.0) 12/14/22 14:20 MCHC 31.6 g/dL (31.0-37.0) 12/14/22 14:20 RDW 15.2 % (11.5-15.5) 12/14/22 14:20 Plt Count 395 k/uL (150-450) 12/14/22 14:20 MPV 8.2 12/14/22 14:20 Neutrophils % 90 % 12/14/22 14:20 Lymphocytes % 6 % 12/14/22 14:20 Monocytes % 3 % 12/14/22 14:20 Eosinophils % 0 % 12/14/22 14:20 Basophils % 0 % 12/14/22 14:20 Neutrophils # 13.8 k/uL (1.3-7.7) H 12/14/22 14:20 Lymphocytes # 0.9 k/uL (1.0-4.8) L 12/14/22 14:20 Monocytes # 0.5 k/uL (0-1.0) 12/14/22 14:20 Eosinophils # 0.0 k/uL (0-0.7) 12/14/22 14:20 Basophils # 0.0 k/uL (0-0.2) 12/14/22 14:20 PT 11.3 sec (9.0-12.0) 12/14/22 14:20 INR 1.1 (<1.2) 12/14/22 14:20 APTT 24.1 sec (22.0-30.0) 12/14/22 14:20 Sodium 137 mmol/L (137-145) 12/14/22 14:20 Potassium 4.8 mmol/L (3.5-5.1) 12/14/22 14:20 Chloride 102 mmol/L (98-107) 12/14/22 14:20 Carbon Dioxide 24 mmol/L (22-30) 12/14/22 14:20 Anion Gap 11 mmol/L 12/14/22 14:20 BUN 41 mg/dL (9-20) H 12/14/22 14:20 Creatinine 1.17 mg/dL (0.66-1.25) 12/14/22 14:20 Est GFR (CKD-EPI)AfAm 64 (>60 ml/min/1.73 sqM) 12/14/22 14:20 Est GFR (CKD-EPI)NonAf 56 (>60 ml/min/1.73 sqM) 12/14/22 14:20 Glucose 102 mg/dL (74-99) H 12/14/22 14:20 Calcium 9.1 mg/dL (8.4-10.2) 12/14/22 14:20 PT/INR, D-dimer PT 11.3 sec (9.0-12.0) 12/14/22 14:20 INR 1.1 (<1.2) 12/14/22 14:20 Abnormal lab findings: Abnormal Labs 12/14/22 12/14/22 14:20 14:20 WBC 15.3 H RBC 4.21 L Hgb 11.8 L Hct 37.2 L Neutrophils # 13.8 H Lymphocytes # 0.9 L BUN 41 H Glucose 102 H - Diagnostic Findings Chest x-ray: image reviewed Assessment and Plan Plan: Assessment 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 Patient is postoperative day #0. The patient was weaned and extubated in the operating room. The patient was subsequently moved to the intensive care unit. Previous history of a perforated colon due to chronic constipation requiring colectomy and diverting colostomy with subsequent development of a parastomal hernia History of CHF with a previous echocardiogram showing left ventricle ejection fraction of 20% from September 2022 History of chronic bilateral pleural effusion, most recent chest x-ray showing left-sided pleural effusion Free air under the right hemidiaphragm, likely postsurgical in nature Previous history of DVT and pulmonary embolism, maintained on anticoagulation with Eliquis Chronic atrial fibrillation Hypertension Hyperlipidemia Previous history of CVA BPH Bilateral cataract Chronic debility secondary to above-mentioned comorbidities Plan Continue gentle hydration with IV fluids at the rate of 75 mL an hour in the form of lactated Ringer Dilaudid for pain control Titrate oxygen flow to maintain a saturation above 90%, currently on 4 L nasal cannula Avoid any fluid overload as the patient has significant cardiomyopathy with impa ired LV function No anticoagulants for now Consider Kcentra should the patient show any signs of bleeding Hold diuretics for now as the patient was taken Aldactone and Lasix on outpatient basis Compression devices to lower extremity is bilaterally IV Protonix General surgery follow-up Monitor surgical site Provide incentive spirometer We'll continue to follow
[2022-12-14 18:58] LABS: Glucose,Whole Blood 136 mg/dL (70-110)
--- NOTE | 2022-12-14 19:09 | XR ---
EXAMINATION TYPE: XR chest 1V portable DATE OF EXAM: 12/14/2022 HISTORY: Shortness of breath. COMPARISON: Within the 11/04/2022 TECHNIQUE: Single view of the chest is submitted. FINDINGS: Demonstrated are scattered senescent parenchymal change. There is persistent pulmonary venous congestion with left lower lobe infiltrate or atelectasis and pl eural effusion. Overall appearance is slightly improved relative to the prior study. The findings cou ld be related to congestive failure versus underlying pneumonia. Correlate clinically. Pneumoperitoneum is noted. Correlate for recent surgical intervention. Hilar and mediastinal structures are within normal limits. Degenerative changes are seen of the dorsal spine. IMPRESSION: 1. The findings could be related to congestive failure versus underlying pneumonia. Correlate clinic ally. 2. Correlate for postoperative pneumoperitoneum.
[2022-12-14] MEDS: PANTOPRAZOLE 40 MG/10 ML VIAL IVP SCH (21:25)
[2022-12-14] MEDS: LACTATED RINGERS 1,000 ML IV SCH (21:25)
[2022-12-15] MEDS: PIPERACILLIN-TAZOBACTAM 3.375 GM in SODIUM CHLORIDE 0.9% 100 ML IVPB SCH ×4 (00:03→23:57)
[2022-12-15] MEDS: SODIUM CHLORIDE 0.9% 1,000 ML IV SCH (06:17)
[2022-12-15 06:26] LABS: Basophils % (A) 0 %; Eosinophils % (A) 0 %; HCT 33.4 % (39.0-53.0); HGB 10.7 gm/dL (13.0-17.5); Hypochromasia Slight; Lymphocytes # (A) 0.6 k/uL (1.0-4.8); Lymphocytes % (A) 4 %; MCH 28.7 pg (25.0-35.0); MCV 89.4 fL (80.0-100.0); Mean Platelet Volume 8.3; Monocytes # (A) 0.5 k/uL (0-1.0); Monocytes % (A) 3 %; Neutrophils # (A) 14.9 k/uL (1.3-7.7); Neutrophils % (A) 92 %; Platelet Count 354 k/uL (150-450); RBC 3.74 m/uL (4.30-5.90); RDW 15.3 % (11.5-15.5); WBC 16.1 k/uL (3.8-10.6)
[2022-12-15 06:46] LABS: Albumin 2.6 g/dL (3.5-5.0); Calcium 8.2 mg/dL (8.4-10.2); Potassium 5.2 mmol/L (3.5-5.1); Total Bilirubin 0.7 mg/dL (0.2-1.3); Total Protein 5.9 g/dL (6.3-8.2)
--- NOTE | 2022-12-15 09:22 | P.PN ---
Progress Note - Text Progress Note Date: 12/15/22 The patient looks surprisingly well today. He was extubated and remained in the ICU overnight. He has complaints of incisional pain. On exam vital signs appear stable. Abdomen soft. Incision is clean dry intact. Status post repair of parastomal hernia with evisceration. Patient will viktor nue receive supportive care.
[2022-12-15] MEDS: PANTOPRAZOLE 40 MG/10 ML VIAL IVP SCH (10:00)
--- NOTE | 2022-12-15 10:16 | P.PN ---
Subjective Progress Note Date: 12/15/22 87-year-old male patient, multiple no comorbidities, with a previous history of a perforated rectum due to fecal impaction was underwent an emergent sigmoid colectomy and diverting colostomy creation by general surgery in September 2020. The patient was in the hospital back in October 2022 because of swelling and prolapse of his ostomy site. He wanted to have his colostomy reversed. However due to pre-existing cardiac conditions and other comorbidities, this was not done. He was considered to be very high risk. Noted the patient is known to have chronic systolic heart failure, and is also known to have previous history of chronic atrial fibrillation, CVA, DVT and he has limited on anticoagulation with Eliquis. Other comorbid conditions include hypertension and hyperlipidemia and previous history of pulmonary embolism. He has issues also with BPH and protein calorie malnutrition. The patient as such is chronically debilitated. The patient presented himself to the emergency department today. Apparently was getting to the toilet and his hernia rupture then eviscerated approximately 3 feet of small bowel emergency at the colostomy site. For that reason, the patient came into the emergency department. He was hemodynamically stable. His labs showed a white cell count of 15 with a hemoglobin 11.8 and a platelet count of 398. BUN was 41 with a creatinine of 1.1 and a sodium level is 137. Based on that, the patient was taken to the operating room and the patient underwent repair of a parastomal hernia, taking down of the splenic flexure, partial colectomy and colostomy in the right upper quadrant. Estimated blood loss was 200 mL. The patient currently is having some bloody oozing into his colostomy bag. Surgical wound is dry clean and intact. Note that he was on antic oagulation with Eliquis preoperatively. His cognition profile has been essentially within normal limits. Chest x-ray in the OR showed pulmonary vessel congestion, possibly left-sided pleural effusion and the air in his abdomen occupying under the diaphragm. On today's evaluation of 12/15/2022, the patient is awake and alert and communicating. He underwent surgery yesterday and the patient is currently postop day #1. He did very well overnight and he is still hemodynamically stable. He remains in a chest fibrillation. No anticoagulants for now. Note that he was taken Ellis was on outpatient basis and this was essentially discontinued. Otherwise, we have not witnessed any bleeding. His surgery 1 is dry clean and intact. The patient has a viable colostomy that was constructed in the right upper quadrant. His hemoglobin is stable at 10.7. The white cell count is at 16 and the sodium is at 138 with a BUN of 38 and a creatinine of 1.1. He is doing well. He remains nothing by mouth for now. No issues with pain. He was provided incentive spirometer. Objective - Vital Signs Vital signs: Vital Signs Temp 98.4 F 12/15/22 09:50 Pulse 58 L 12/15/22 10:00 Resp 21 12/15/22 10:00 BP 93/54 12/15/22 10:00 Pulse Ox 94 L 12/15/22 10:00 FiO2 Intake & Output 12/14/22 12/15/22 12/15/22 18:59 06:59 18:59 Intake Total 1600 925 300 Output Total 1500 935 150 Balance 100 -10 150 Weight 63.503 kg 64.1 kg Intake: IV 1600 925 300 Lactated Ringers 1,000 ml 825 300 @ 75 mls/hr IV .[id number] KATHLEEN Rx#:[id number] Piperacillin-Tazobactam 3 100 .375 gm In Sodium Chloride 0.9% 100 ml @ 25 mls/hr IVPB Q8HR KATHLEEN Rx# :[id number] Output: Urine 1300 935 150 Estimated Blood Loss 200 Other: Voiding Method Indwelling Catheter - Exam Gen. appearance, l calm and comfortable, following commands and answering questions appropriately Currently on oxygen with nasal cannula at 2 L/m Head exam was generally normal. There was no scleral icterus or corneal arcus. Mucous membranes were moist. Neck was supple and with jugular venous distension, thyromegaly, or carotid bruits. Carotids were easily palpable bilaterally. There was no adenopathy. Lungs sounds are diminished bilaterally along with some limited bibasilar crackles. The patient has some dullness to percussion left. Heart sounds are irregular consistent with atrial fibrillation. Positive S1-S2. No significant murmurs appreciated. 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 Surgical one-sided dry clean and intact. No direct tenderness, rebound tenderness or guarding. Examination of the extremities revealed easily palpable radial, femoral and pedal pulses. There was no cyanosis, clubbing or edema. Examination of the skin revealed no evidence of significant rashes, suspicious appearing nevi or other concerning lesions. Neurologically, awake and alert, no focal neurological deficits - Labs CBC & Chem 7: 12/15/22 05:43 12/15/22 05:43 Labs: Abnormal Lab Results - Last 24 Hours (Table) 12/14/22 12/14/22 12/14/22 Range/Units 14:20 14:20 18:57 WBC 15.3 H (3.8-10.6) k/uL RBC 4.21 L (4.30-5.90) m/uL Hgb 11.8 L (13.0-17.5) gm/dL Hct 37.2 L (39.0-53.0) % Neutrophils # 13.8 H (1.3-7.7) k/uL Lymphocytes # 0.9 L (1.0-4.8) k/uL Potassium (3.5-5.1) mmol/L BUN 41 H (9-20) mg/dL Glucose 102 H (74-99) mg/dL POC Glucose (mg/dL) 136 H (70-110) mg/dL Calcium (8.4-10.2) mg/dL Alkaline Phosphatase (38-126) U/L C-Reactive Protein (<1.0) mg/dL Total Protein (6.3-8.2) g/dL Albumin (3.5-5.0) g/dL 12/15/22 12/15/22 Range/Units 05:43 05:43 WBC 16.1 H (3.8-10.6) k/uL RBC 3.74 L (4.30-5.90) m/uL Hgb 10.7 L (13.0-17.5) gm/dL Hct 33.4 L (39.0-53.0) % Neutrophils # 14.9 H (1.3-7.7) k/uL Lymphocytes # 0.6 L (1.0-4.8) k/uL Potassium 5.2 H (3.5-5.1) mmol/L BUN 38 H (9-20) mg/dL Glucose 118 H (74-99) mg/dL POC Glucose (mg/dL) (70-110) mg/dL Calcium 8.2 L (8.4-10.2) mg/dL Alkaline Phosphatase 135 H (38-126) U/L C-Reactive Protein 6.0 H (<1.0) mg/dL Total Protein 5.9 L (6.3-8.2) g/dL Albumin 2.6 L (3.5-5.0) g/dL Assessment and Plan Plan: Assessment 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 Patient is postoperative day #1. Clinically stable and hemodynamically stable Previous history of a perforated colon due to chronic constipation requiring colectomy and diverting colostomy with subsequent development of a parastomal hernia History of CHF with a previous echocardiogram showing left ventricle ejection fraction of 20% from September 2022 History of chronic bilateral pleural effusion, most recent chest x-ray showing left-sided pleural effusion Free air under the right hemidiaphragm, likely postsurgical in nature Previous history of DVT and pulmonary embolism, maintained on anticoagulation with Eliquis Chronic atrial fibrillation Hypertension Hyperlipidemia Previous history of CVA BPH Bilateral cataract Chronic debility secondary to above-mentioned comorbidities Plan Continue gentle hydration with IV fluids at the rate of 75 mL an hour in the form of lactated Ringer Dilaudid for pain control Titrate oxygen flow to maintain a saturation above 90%, currently on 2 L nasal cannula Avoid any fluid overload as the patient has significant cardiomyopathy with impaired LV function No anticoagulants for now No bleeding Hold diuretics for now as the patient was taken Aldactone and Lasix on outpatient basis Compression devices to lower extremity is bilaterally IV Protonix General surgery follow-up Monitor surgical site I added Zosyn based on the surgical request due to concerns of any form of intra-abdominal sepsis Provide incentive spirometer We'll continue to follow Patient can be potentially transferred to a medical surgical floor at the later stage.
[2022-12-15] MEDS: LACTATED RINGERS 1,000 ML IV SCH ×2 (12:10→22:07)
[2022-12-15] MEDS ORDERED: ACETAMINOPHEN TAB 325 MG TAB PO PRN (12:23)
[2022-12-15] MEDS: HYDROmorphone 0.5 MG/0.5 ML SYRINGE IVP PRN ×2 (12:56→21:53)
[2022-12-15] MEDS ORDERED: SODIUM CHLORIDE 0.9% 1,000 ML IV ONE (14:00)
--- NOTE | 2022-12-15 16:43 | P.CONS ---
History of Present Illness - Reason for Consult Consult date: 12/15/22 - History of Present Illness Patient is a 87-year-old male with a past medical history significant for perforated rectum due to fecal impaction requiring sigmoid colectomy and diverting colostomy in September 2020 could not be reversed because of multiple comorbid condition patient presented to hospital out of the patient noticed the hernia has ruptured with evisceration of portion of the small bowel at the colo stomy site patient was taken to the OR emergently patient is status post exploratory laparotomy repair of the parastomal hernia takedown of the splenic flexure partial colectomy and colostomy right upper quadrant there was evidence of portion of the bowel being ischemic however no documentation of any perforation patient on presentation to the hospital was afebrile and no fever has been recorded subsequently patient did have white count of 15.2 to slightly to 16.1 today creatinine has been normal CRP is elevated patient was started on Zosyn pending evaluation this morning at the time of evaluation this morning the patient is afebrile he is breathing comfortably has been complaining of abdomi nal pain however seem to have slightly decreased in intensity and did have the NG no nausea vomiting no output in the colostomy bag no chest pain no shortness of breath occasional cough Past Medical History Past Medical History: Atrial Fibrillation, CVA/TIA, Deep Vein Thrombosis (DVT), Hyperlipidemia, Hypertension, Prostate Disorder, Pulmonary Embolus (PE), Supraventricular Tachycardia (SVT) Additional Past Medical History / Comment(s): 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 History of Any Multi-Drug Resistant Organisms: None Reported Past Surgical History: Bowel Resection Additional Past Surgical History / Comment(s): 2020 bowel resection/colostomy, CVA in 1955 which made need for R elbow surgery/R ankle fusion, post cva surgery on back to remove blood clot, bilateral eye lens implants. Past Anesthesia/Blood Transfusion Reactions: No Reported Reaction Additional Past Anesthesia/Blood Transfusion Reaction / Comm: Pt believes he has received blood in past without reaction. Past Psychological History: No Psychological Hx Reported Smoking Status: Former smoker Past Alcohol Use History: None Reported Past Drug Use History: None Reported - Past Family History Mother Family Medical History: Dementia Additional Family Medical History / Comment(s): ALZHEIMERS Father Family Medical History: No Reported History Additional Family Medical History / Comment(s): Pt states his father was healthy Medications and Allergies Home Medications Medication Instructions Recorded Confirmed Type Tamsulosin HCl [Flomax] 0.4 mg PO DAILY 02/14/18 12/14/22 History Pantoprazole Sodium [Protonix] 40 mg PO DAILY 10/20/22 12/14/22 History Metoprolol Succinate (ER) [Toprol 25 mg PO DAILY tab 10/24/22 12/14/22 Rx XL] Albuterol Inhaler [Ventolin Hfa 2 puff INHALATION RT-Q6H 10/28/22 12/14/22 History Inhaler] Apixaban [Eliquis] 2.5 mg PO BID@0800,1700 10/28/22 12/14/22 History Aspirin 81 mg PO DAILY@1200 10/28/22 12/14/22 History Ensure Enlive 237 ml PO TID@0800,1200,1700 10/28/22 12/14/22 History Eucerin Advanced Repair Cream 1 applic TOPICAL DAILY 10/28/22 12/14/22 History Eucerin Advanced Repair Cream 1 applic TOPICAL DAILY PRN 10/28/22 12/14/22 History Magnesium Hydroxide [Milk of 7,200 mg PO Q48H PRN 10/28/22 12/14/22 History Magnesia Concentrate] Na Phos,M-B/Na Phos,Di-Ba [Fleet 133 ml RECTAL DAILY PRN 10/28/22 12/14/22 History Adult] bisacodyL [Dulcolax] 10 mg RECTAL DAILY PRN 10/28/22 12/14/22 History Dapagliflozin Propanediol [Farxiga] 10 mg PO DAILY #30 tab 11/06/22 12/14/22 Rx Furosemide [Lasix] 20 mg PO DAILY #30 tab 11/06/22 12/14/22 Rx Spironolactone [Aldactone] 25 mg PO DAILY #30 tab 11/06/22 12/14/22 Rx Amiodarone [Cordarone] 200 mg PO BID@0800,1700 12/14/22 12/14/22 History methylPREDNISolone Dose Pack See Taper PO DIRECTED 12/14/22 12/14/22 History [Medrol Dose Pack] Allergies Allergy/AdvReac Type Severity Reaction Status Date / Time memantine [From Namenda] AdvReac Nausea & Verified 12/14/22 16:29 Vomiting & Diarrhea Physical Exam Vitals: Vital Signs Temp Pulse Pulse Resp BP BP Pulse Ox 12/15/22 06:00 69 19 90/51 94 L 12/15/22 05:00 70 20 85/61 94 L 12/15/22 04:00 97.8 F 75 22 91/54 96 12/15/22 03:00 64 19 82/57 95 12/15/22 02:00 85 20 83/51 95 12/15/22 01:00 73 16 90/63 96 12/15/22 00:17 77 18 82/53 96 12/15/22 00:00 97.7 F 79 19 83/52 96 12/14/22 23:00 105 H 19 91/65 96 12/14/22 22:00 97.4 F L 81 18 91/65 97 12/14/22 21:00 96.2 F L 81 20 106/64 99 12/14/22 20:00 96.0 F L 78 17 101/69 96 12/14/22 19:00 95.0 F L 91 24 97/64 92 L 12/14/22 18:41 99/55 12/14/22 18:37 80 18 88/54 96 12/14/22 18:22 79 16 97/52 93 L 12/14/22 18:07 92 16 114/68 95 12/14/22 17:52 96 20 108/75 94 L 12/14/22 17:36 97.0 F L 69 18 111/66 98 12/14/22 15:16 97.0 F L 16 111/67 97 12/14/22 14:34 97.2 F L 82 20 120/68 98 12/14/22 14:03 96.7 F L 89 20 128/75 96 Intake and Output 12/14/22 12/15/22 12/15/22 22:59 06:59 14:59 Intake Total 1825 700 75 Output Total 2225 360 40 Balance -250 340 35 Intake: IV 1825 700 75 Lactated Ringers 1,000 ml 225 600 75 @ 75 mls/hr IV .[id number] [facility] Rx#:[id number] Piperacillin-Tazobactam 3 100 .375 gm In Sodium Chloride 0.9% 100 ml @ 25 mls/hr IVPB Q8HR [facility] Rx# :[id number] Output: Urine 1875 360 40 Estimated Blood Loss 200 Other: Voiding Method Indwelling Catheter Indwelling Catheter Weight 64.1 kg Results CBC & Chem 7: 12/15/22 05:43 12/15/22 05:43 Labs: Abnormal Lab Results - Last 24 Hours (Table) 12/14/22 12/14/22 12/14/22 Range/Units 14:20 14:20 18:57 WBC 15.3 H (3.8-10.6) k/uL RBC 4.21 L (4.30-5.90) m/uL Hgb 11.8 L (13.0-17.5) gm/dL Hct 37.2 L (39.0-53.0) % Neutrophils # 13.8 H (1.3-7.7) k/uL Lymphocytes # 0.9 L (1.0-4.8) k/uL Potassium (3.5-5.1) mmol/L BUN 41 H (9-20) mg/dL Glucose 102 H (74-99) mg/dL POC Glucose (mg/dL) 136 H (70-110) mg/dL Calcium (8.4-10.2) mg/dL Alkaline Phosphatase (38-126) U/L C-Reactive Protein (<1.0) mg/dL Total Protein (6.3-8.2) g/dL Albumin (3.5-5.0) g/dL 12/15/22 12/15/22 Range/Units 05:43 05:43 WBC 16.1 H (3.8-10.6) k/uL RBC 3.74 L (4.30-5.90) m/uL Hgb 10.7 L (13.0-17.5) gm/dL Hct 33.4 L (39.0-53.0) % Neutrophils # 14.9 H (1.3-7.7) k/uL Lymphocytes # 0.6 L (1.0-4.8) k/uL Potassium 5.2 H (3.5-5.1) mmol/L BUN 38 H (9-20) mg/dL Glucose 118 H (74-99) mg/dL POC Glucose (mg/dL) (70-110) mg/dL Calcium 8.2 L (8.4-10.2) mg/dL Alkaline Phosphatase 135 H (38-126) U/L C-Reactive Protein 6.0 H (<1.0) mg/dL Total Protein 5.9 L (6.3-8.2) g/dL Albumin 2.6 L (3.5-5.0) g/dL Assessment and Plan Plan: 1patient presented to hospital with evisceration of the small bowel with a parastomal hernia in this patient who is status post laparotomy resection of the portion of ischemic bowel and takedown of the splenic flexure patient did have elevated white count however no documented perforation though ischemic bowel was slightly concerning and need to cover for the enteric gram-negative both aerobes and anaerobes 2-patient to continue with Zosyn while waiting for the culture to finalize and will monitor clinical course closely We will follow on clinical condition and cultures to further adjust medication if needed Thank you for this consultation we will follow the patient along with you Time with Patient: Greater than 30
--- NOTE | 2022-12-15 22:52 | P.CONS ---
History of Present Illness - Reason for Consult Consult date: 12/15/22 Medical management - Chief Complaint S/p repair of parastomal hernia - History of Present Illness Patient is a 87-year-old male with a known history of parastomal hernia and history of sigmoid colectomy and end colostomy. Apparently patient was sitting on the toilet and he lost his balance and slid forward and his noticed that his bowel had perforated through the stomal site. Patient underwent expiratory laparotomy and repair of parastomal hernia and partial colectomy. Colostomy in the right upper quadrant. Postoperatively patient was being monitored in the MICU. Patient is required pain management with Dilaudid and patient is currently nothing by mouth. Patient was hypotensive today afternoon and was given 200 cc fluid bolus with improvement in blood pressure. Otherwise patient denied any complaints of chest pain or shortness of breath. No nausea or vomiting or worsening abdominal pain. Currently requiring 2 L oxygen via nasal cannula. Laboratory showed WBC 16.1 hemoglobin 10.7 platelets 354 Sodium 138 potassium 5.2 chloride 105 bicarb is 24 BUN 38 and creatinine 1.12, AST 21 ALT 22 alk phos 135 and CRP 6.0 and albumin 2.6. Patient on antibiotics in the form of Zosyn. Continued on IV hydration with Ringer's lactate. Review of Systems Constitutional: Patient denies any fever or chills . no Generalized weakness. Abdomen: Patient denied any nausea or vomiting. Pain at the surgical site. Cardiovascular: Patient denies any chest pain or short of breath no palpitations. Respiratory: patient denied any cough . no sputum production. No shortness of breath Neurologic: Patient denied any numbness or tingling headache. Musculoskeletal: Patient denies any complaints of joint swelling or deformity. Skin: Negative Psychiatric: Negative Endocrine: No heat or cold intolerance. No recent weight gain. Genitourinary: No dysuria or hematuria. All other 14 point ROS negative except the above Past Medical History Past Medical History: Atrial Fibrillation, CVA/TIA, Deep Vein Thrombosis (DVT), Hyperlipidemia, Hypertension, Prostate Disorder, Pulmonary Embolus (PE), Supraventricular Tachycardia (SVT) Additional Past Medical History / Comment(s): 1955 CVA with R sided we akness/speech difficulty, post cva pt states he had a blood clot that went into his back/surgery to remove, , 2020 fecal impaction/bowel perforation with sepsis/has colostomy, colitis, colon polyps, perstomal hernia/wears abdominal binder, past htn, BPH, pt states lasix started d/t edema, protein calorie malnutrition. History of Any Multi-Drug Resistant Organisms: None Reported Past Surgical History: Bowel Resection Additional Past Surgical History / Comment(s): 2020 bowel resection/colostomy, CVA in 1955 which made need for R elbow surgery/R ankle fusion, post cva surgery on back to remove blood clot, bilateral eye lens implants. Past Anesthesia/Blood Transfusion Reactions: No Reported Reaction Additional Past Anesthesia/Blood Transfusion Reaction / Comm: Pt believes he has received blood in past without reaction. Past Psychological History: No Psychological Hx Reported Smoking Status: Former smoker Past Alcohol Use History: None Reported Past Drug Use History: None Reported - Past Family History Mother Family Medical History: Dementia Additional Family Medical History / Comment(s): ALZHEIMERS Father Family Medical History: No Reported History Additional Family Medical History / Comment(s): Pt states his father was healthy Medications and Allergies Home Medications Medication Instructions Recorded Confirmed Type Tamsulosin HCl [Flomax] 0.4 mg PO DAILY 02/14/18 12/14/22 History Pantoprazole Sodium [Protonix] 40 mg PO DAILY 10/20/22 12/14/22 History Metoprolol Succinate (ER) [Toprol 25 mg PO DAILY tab 10/24/22 12/14/22 Rx XL] Albuterol Inhaler [Ventolin Hfa 2 puff INHALATION RT-Q6H 10/28/22 12/14/22 History Inhaler] Apixaban [Eliquis] 2.5 mg PO BID@0800,1700 10/28/22 12/14/22 History Aspirin 81 mg PO DAILY@1200 10/28/22 12/14/22 History Ensure Enlive 237 ml PO TID@0800,1200,1700 10/28/22 12/14/22 History Eucerin Advanced Repair Cream 1 applic TOPICAL DAILY 10/28/22 12/14/22 History Eucerin Advanced Repair Cream 1 applic TOPICAL DAILY PRN 10/28/22 12/14/22 History Magnesium Hydroxide [Milk of 7,200 mg PO Q48H PRN 10/28/22 12/14/22 History Magnesia Concentrate] Na Phos,M-B/Na Phos,Di-Ba [Fleet 133 ml RECTAL DAILY PRN 10/28/22 12/14/22 History Adult] bisacodyL [Dulcolax] 10 mg RECTAL DAILY PRN 10/28/22 12/14/22 History Dapagliflozin Propanediol [Farxiga] 10 mg PO DAILY #30 tab 11/06/22 12/14/22 Rx Furosemide [Lasix] 20 mg PO DAILY #30 tab 11/06/22 12/14/22 Rx Spironolactone [Aldactone] 25 mg PO DAILY #30 tab 11/06/22 12/14/22 Rx Amiodarone [Cordarone] 200 mg PO BID@0800,1700 12/14/22 12/14/22 History methylPREDNISolone Dose Pack See Taper PO DIRECTED 12/14/22 12/14/22 History [Medrol Dose Pack] Allergies Allergy/AdvReac Type Severity Reaction Status Date / Time memantine [From Namenda] AdvReac Nausea & Verified 12/14/22 16:29 Vomiting & Diarrhea Physical Exam Vitals: Vital Signs Temp Pulse Pulse Resp BP BP Pulse Ox 12/15/22 06:00 69 19 90/51 94 L 12/15/22 05:00 70 20 85/61 94 L 12/15/22 04:00 97.8 F 75 22 91/54 96 12/15/22 03:00 64 19 82/57 95 12/15/22 02:00 85 20 83/51 95 12/15/22 01:00 73 16 90/63 96 12/15/22 00:17 77 18 82/53 96 12/15/22 00:00 97.7 F 79 19 83/52 96 12/14/22 23:00 105 H 19 91/65 96 12/14/22 22:00 97.4 F L 81 18 91/65 97 12/14/22 21:00 96.2 F L 81 20 106/64 99 12/14/22 20:00 96.0 F L 78 17 101/69 96 12/14/22 19:00 95.0 F L 91 24 97/64 92 L 12/14/22 18:41 99/55 12/14/22 18:37 80 18 88/54 96 12/14/22 18:22 79 16 97/52 93 L 12/14/22 18:07 92 16 114/68 95 12/14/22 17:52 96 20 108/75 94 L 12/14/22 17:36 97.0 F L 69 18 111/66 98 12/14/22 15:16 97.0 F L 16 111/67 97 12/14/22 14:34 97.2 F L 82 20 120/68 98 12/14/22 14:03 96.7 F L 89 20 128/75 96 Intake and Output 12/14/22 12/15/22 12/15/22 22:59 06:59 14:59 Intake Total 1825 700 75 Output Total 2075 360 40 Balance -250 340 35 Intake: IV 1825 700 75 Lactated Ringers 1,000 ml 225 600 75 @ 75 mls/hr IV .[id number] [facility] Rx#:[id number] Piperacillin-Tazobactam 3 100 .375 gm In Sodium Chloride 0.9% 100 ml @ 25 mls/hr IVPB Q8HR [facility] Rx# :[id number] Output: Urine 1875 360 40 Estimated Blood Loss 200 Other: Voiding Method Indwelling Catheter Indwelling Catheter Weight 64.1 kg PHYSICAL EXAMINATION: Patient is lying in the bed comfortably, no acute distress, awake alert and oriented.. HEENT: Normocephalic. Neck is supple. Pupils reactive. Nostrils clear. Oral cavity is moist. Neck reveals no JVD, carotid bruits, or thyromegaly. CHEST EXAMINATION: Trachea is central. Symmetrical expansion. Lung wise clear to auscultation and percussion. CARDIAC: Normal S1, S2 with no gallops. No murmurs ABDOMEN: Soft. Bowel sounds present. Tenderness at the surgical site. Colostomy bag right upper quadrant. No organomegaly. No abdominal bruits. Extremities: reveal no edema. No clubbing or cyanosis Neurologically awake, alert, oriented x3 with well-coordinated movements. No focal deficits noted Skin: No rash or skin lesions. Psychiatric: Coperative. Nonsuicidal, Musculoskeletal: No joint swelling or deformity. Normal range of motion. Results CBC & Chem 7: 12/15/22 05:43 12/15/22 05:43 Labs: Abnormal Lab Results - Last 24 Hours (Table) 12/14/22 12/14/22 12/14/22 Range/Units 14:20 14:20 18:57 WBC 15.3 H (3.8-10.6) k/uL RBC 4.21 L (4.30-5.90) m/uL Hgb 11.8 L (13.0-17.5) gm/dL Hct 37.2 L (39.0-53.0) % Neutrophils # 13.8 H (1.3-7.7) k/uL Lymphocytes # 0.9 L (1.0-4.8) k/uL Potassium (3.5-5.1) mmol/L BUN 41 H (9-20) mg/dL Glucose 102 H (74-99) mg/dL POC Glucose (mg/dL) 136 H (70-110) mg/dL Calcium (8.4-10.2) mg/dL Alkaline Phosphatase (38-126) U/L C-Reactive Protein (<1.0) mg/dL Total Protein (6.3-8.2) g/dL Albumin (3.5-5.0) g/dL 12/15/22 12/15/22 Range/Units 05:43 05:43 WBC 16.1 H (3.8-10.6) k/uL RBC 3.74 L (4.30-5.90) m/uL Hgb 10.7 L (13.0-17.5) gm/dL Hct 33.4 L (39.0-53.0) % Neutrophils # 14.9 H (1.3-7.7) k/uL Lymphocytes # 0.6 L (1.0-4.8) k/uL Potassium 5.2 H (3.5-5.1) mmol/L BUN 38 H (9-20) mg/dL Glucose 118 H (74-99) mg/dL POC Glucose (mg/dL) (70-110) mg/dL Calcium 8.2 L (8.4-10.2) mg/dL Alkaline Phosphatase 135 H (38-126) U/L C-Reactive Protein 6.0 H (<1.0) mg/dL Total Protein 5.9 L (6.3-8.2) g/dL Albumin 2.6 L (3.5-5.0) g/dL Assessment and Plan Assessment: 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 Of parastomal hernia. Colostomy in the right upper quadrant. Postoperative day 1. History of colon perforation requiring colectomy and diverting colostomy and subsequent development of parastomal hernia. Chronic CHF with systolic dysfunction ejection fraction 20% Chronic small bilateral pleural effusion Chronic atrial fibrillation on anticoagulation with Eliquis at home Hypertension Hyperlipidemia History of CVA BPH DVT prophylaxis with heparin subcu until restarting Eliquis. Plan: Patient will be continued on IV hydration. Currently on Ringer's lactate at 75 cc/h. Continue to monitor fluid status. Continue with Zosyn. Patient is currently nothing by mouth. Encourage incentive spirometry. will start back on amiodarone and beta-blockers once patient is able to tolerate oral diet. Follow-up closely and further recommendations based on the clinical course. Thank you for your consult. Time with Patient: Greater than 30
[2022-12-15] MEDS: HEPARIN SODIUM,PORCINE/PF 5,000 UNIT/0.5 ML SYRINGE SQ SCH (23:57)
[2022-12-16] MEDS: PANTOPRAZOLE 40 MG/10 ML VIAL IVP SCH (09:50)
[2022-12-16] MEDS: METOPROLOL SUCCINATE (ER) 25 MG TAB.ER.24H PO SCH (09:50)
[2022-12-16] MEDS: AMIODARONE 200 MG TAB PO SCH ×2 (09:50→17:11)
[2022-12-16] MEDS: TAMSULOSIN 0.4 MG CAP.ER.24H PO SCH (09:50)
[2022-12-16] MEDS: HEPARIN SODIUM,PORCINE/PF 5,000 UNIT/0.5 ML SYRINGE SQ SCH ×2 (09:51→17:11)
[2022-12-16] MEDS: PIPERACILLIN-TAZOBACTAM 3.375 GM in SODIUM CHLORIDE 0.9% 100 ML IVPB SCH ×2 (09:51→17:11)
--- NOTE | 2022-12-16 09:56 | P.PN ---
Progress Note - Text Progress Note Date: 12/16/22 Patient has complaints of incisional pain. On exam vital signs are stable. Abdomen soft. Incision site is clean dry intact. Colostomy is in quadrant and viable. Status post repair of evisceration and parastomal hernia. Patient will start clear liquids.
[2022-12-16] MEDS: HYDROcodone/APAP 5-325MG 1 EACH TAB PO PRN ×2 (10:12→17:15)
--- NOTE | 2022-12-16 12:27 | P.PN ---
Subjective Progress Note Date: 12/16/22 87-year-old male patient, multiple no comorbidities, with a previous history of a perforated rectum due to fecal impaction was underwent an emergent sigmoid colectomy and diverting colostomy creation by general surgery in September 2020. The patient was in the hospital back in October 2022 because of swelling and prolapse of his ostomy site. He wanted to have his colostomy reversed. However due to pre-existing cardiac conditions and other comorbidities, this was not done. He was considered to be very high risk. Noted the patient is known to have chronic systolic heart failure, and is also known to have previous history of chronic atrial fibrillation, CVA, DVT and he has limited on anticoagulation with Eliquis. Other comorbid conditions include hypertension and hyperlipidemia and previous history of pulmonary embolism. He has issues also with BPH and protein calorie malnutrition. The patient as such is chronically debilitated. The patient presented himself to the emergency department today. Apparently was getting to the toilet and his hernia rupture then eviscerated approximately 3 feet of small bowel emergency at the colostomy site. For that reason, the patient came into the emergency department. He was hemodynamically stable. His labs showed a white cell count of 15 with a hemoglobin 11.8 and a platelet count of 398. BUN was 41 with a creatinine of 1.1 and a sodium level is 137. Based on that, the patient was taken to the operating room and the patient underwent repair of a parastomal hernia, taking down of the splenic flexure, partial colectomy and colostomy in the right upper quadrant. Estimated blood loss was 200 mL. The patient currently is having some bloody oozing into his colostomy bag. Surgical wound is dry clean and intact. Note that he was on antic oagulation with Eliquis preoperatively. His cognition profile has been essentially within normal limits. Chest x-ray in the OR showed pulmonary vessel congestion, possibly left-sided pleural effusion and the air in his abdomen occupying under the diaphragm. On today's evaluation of 12/15/2022, the patient is awake and alert and communicating. He underwent surgery yesterday and the patient is currently postop day #1. He did very well overnight and he is still hemodynamically stable. He remains in a chest fibrillation. No anticoagulants for now. Note that he was taken Ellis was on outpatient basis and this was essentially discontinued. Otherwise, we have not witnessed any bleeding. His surgery 1 is dry clean and intact. The patient has a viable colostomy that was constructed in the right upper quadrant. His hemoglobin is stable at 10.7. The white cell count is at 16 and the sodium is at 138 with a BUN of 38 and a creatinine of 1.1. He is doing well. He remains nothing by mouth for now. No issues with pain. He was provided incentive spirometer. On 12/17/2019, the patient is postop day #2. He was given some clear liquid diet. His for cough and poor ability to do pulmonary toileting. Does have some upper airway secretions. Using the incentive spirometer. Remains on IV Zosyn. Pain is under adequate control. Bowel sounds are hypoactive and there is no functional status colostomy. Surgical site is dry clean and intact. No recent blood work from today. Blood work from yesterday was noted. Objective - Vital Signs Vital signs: Vital Signs Temp 97.9 F 12/16/22 08:00 Pulse 73 12/16/22 08:00 Resp 18 12/16/22 08:00 BP 104/90 12/16/22 08:00 Pulse Ox 94 L 12/16/22 08:00 FiO2 Intake & Output 12/15/22 12/16/22 12/16/22 18:59 06:59 18:59 Intake Total 1775 Output Total 360 1050 Balance 1415 -1050 Intake: IV 1775 Lactated Ringers 1,000 ml 675 @ 75 mls/hr IV .[id number] [facility] Rx#:[id number] Piperacillin-Tazobactam 3 100 .375 gm In Sodium Chloride 0.9% 100 ml @ 25 mls/hr IVPB Q8HR [facility] Rx# :[id number] Sodium Chloride 0.9% 1, 1000 000 ml @ 999 mls/hr IV . Q1H1M [facility] Rx#:[id number] Output: Urine 360 1050 Other: Voiding Method Indwelling Catheter Indwelling Catheter Indwelling Catheter - Exam Gen. appearance, l calm and comfortable, following commands and answering questions appropriately Currently on oxygen with nasal cannula at 2 L/m Head exam was generally normal. There was no scleral icterus or corneal arcus. Mucous membranes were moist. Neck was supple and with jugular venous distension, thyromegaly, or carotid bruits. Carotids were easily palpable bilaterally. There was no adenopathy. Lungs sounds are diminished bilaterally along with some limited bibasilar crackles. The patient has some dullness to percussion left. Heart sounds are irregular consistent with atrial fibrillation. Positive S1-S2. No significant murmurs appreciated. 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 Surgical one-sided dry clean and intact. No direct tenderness, rebound tenderness or guarding. Examination of the extremities revealed easily palpable radial, femoral and ped al pulses. There was no cyanosis, clubbing or edema. Examination of the skin revealed no evidence of significant rashes, suspicious appearing nevi or other concerning lesions. 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 Patient is postoperative day # 2. Clinically stable and hemodynamically stable Previous history of a perforated colon due to chronic constipation requiring c olectomy and diverting colostomy with subsequent development of a parastomal hernia History of CHF with a previous echocardiogram showing left ventricle ejection fraction of 20% from September 2022 History of chronic bilateral pleural effusion, most recent chest x-ray showing left-sided pleural effusion Free air under the right hemidiaphragm, likely postsurgical in nature Previous history of DVT and pulmonary embolism, maintained on anticoagulation with Eliquis Chronic atrial fibrillation Hypertension Hyperlipidemia Previous history of CVA BPH Bilateral cataract Chronic debility secondary to above-mentioned comorbidities Plan Aggressive pulmonary toileting Continue gentle hydration with IV fluids at the rate of 75 mL an hour in the form of lactated Ringer Dilaudid for pain control Titrate oxygen flow to maintain a saturation above 90%, currently on 2 L nasal cannula Avoid any fluid overload as the patient has significant cardiomyopathy with impaired LV function No anticoagulants for now No bleeding Clear liquids Monitor the output from the colostomy site Hold diuretics for now as the patient was taken Aldactone and Lasix on outpatient basis Compression devices to lower extremity is bilaterally IV Protonix General surgery follow-up Monitor surgical site Continue Zosyn based on the surgical request due to concerns of any form of intra-abdominal sepsis Provide incentive spirometer We'll continue to follow Patient was transferred out of the intensive care unit and the patient's current on a medical floor
[2022-12-16] MEDS: MORPHINE SULFATE 4 MG/ML SYRINGE IVP PRN (12:34)
[2022-12-16] MEDS: LACTATED RINGERS 1,000 ML IV SCH ×2 (13:05→22:03)
--- NOTE | 2022-12-16 20:07 | P.PN ---
Subjective Progress Note Date: 12/16/22 Principal diagnosis: Leukocytosis Patient is a 87-year-old male with a past medical history significant for perforated rectum due to fecal impaction requiring sigmoid colectomy and diverting colostomy in September 2020 could not be reversed because of multiple comorbid condition patient presented to hospital to the hospital with evisceration of portion of the small bowel at the colostomy site , status post laparotomy and repair of parastomal hernia and resection of portion of bowel. On today's evaluation that is 12/16/2022, patient has been moved out of the ICU, the patient is afebrile breathing comfortably on 2 L nasal cannula oxygen, no chest pain shortness breath or cough or abdominal pain is currently controlled no vomiting tolerating his diet Objective - Vital Signs Vital signs: Vital Signs Temp 97.9 F 12/16/22 08:00 Pulse 85 12/16/22 08:00 Resp 18 12/16/22 08:00 BP 104/90 12/16/22 08:00 Pulse Ox 94 L 12/16/22 08:00 FiO2 Intake & Output 12/15/22 12/16/22 12/16/22 18:59 06:59 18:59 Intake Total 1775 Output Total 360 1050 Balance 1415 -1050 Intake: IV 1775 Lactated Ringers 1,000 ml 675 @ 75 mls/hr IV .[id number] [facility] Rx#:[id number] Piperacillin-Tazobactam 3 100 .375 gm In Sodium Chloride 0.9% 100 ml @ 25 mls/hr IVPB Q8HR [facility] Rx# :[id number] Sodium Chloride 0.9% 1, 1000 000 ml @ 999 mls/hr IV . Q1H1M [facility] Rx#:[id number] Output: Urine 360 1050 Other: Voiding Method Indwelling Catheter Indwelling Catheter - Exam Elderly male lying in bed in no distress Abdominal incision is currently intact and dressed no output in the colostomy bag Exam completed with the help of CLIENT LIAISON - Labs CBC & Chem 7: 12/15/22 05:43 12/15/22 05:43 Assessment and Plan (1) Leukocytosis Current Visit: Yes Status: Acute Code(s): D72.829 - ELEVATED WHITE BLOOD CELL COUNT, UNSPECIFIED SNOMED Code(s): 479296824 (2) Evisceration of bowel Current Visit: Yes Status: Acute Code(s): TLK2192 - SNOMED Code(s): 16213186 Plan: 1patient presented to hospital with evisceration of the small bowel with a parastomal hernia in this patient who is status post laparotomy resection of the portion of ischemic bowel and takedown of the splenic flexure patient did have elevated white count however no documented perforation though ischemic bowel was slightly concerning and need to cover for the enteric gram-negative both aerobes and anaerobes 2-patient white count is still elevated slightly up to 16.1 today which will be monitored closely, patient to to continue with Zosyn and continue supportive care This was a telehealth visit Time with Patient: Less than 30
[2022-12-17] MEDS: PIPERACILLIN-TAZOBACTAM 3.375 GM in SODIUM CHLORIDE 0.9% 100 ML IVPB SCH ×3 (00:43→16:08)
[2022-12-17] MEDS: HEPARIN SODIUM,PORCINE/PF 5,000 UNIT/0.5 ML SYRINGE SQ SCH ×3 (00:43→16:08)
[2022-12-17] MEDS: MORPHINE SULFATE 4 MG/ML SYRINGE IVP PRN ×2 (02:29→14:05)
[2022-12-17 08:07] LABS: Albumin 2.4 g/dL (3.5-5.0); Potassium 4.3 mmol/L (3.5-5.1); Total Bilirubin 0.8 mg/dL (0.2-1.3); Total Protein 5.5 g/dL (6.3-8.2)
[2022-12-17 08:14] LABS: Basophils % (A) 0 %; Eosinophils # (A) 0.1 k/uL (0-0.7); Eosinophils % (A) 1 %; HCT 29.5 % (39.0-53.0); Hypochromasia Moderate; Lymphocytes # (A) 0.7 k/uL (1.0-4.8); Lymphocytes % (A) 6 %; MCH 28.8 pg (25.0-35.0); MCHC 31.2 g/dL (31.0-37.0); MCV 92.5 fL (80.0-100.0); Mean Platelet Volume 8.3; Monocytes # (A) 0.4 k/uL (0-1.0); Monocytes % (A) 3 %; Neutrophils # (A) 10.2 k/uL (1.3-7.7); Neutrophils % (A) 89 %; Platelet Count 282 k/uL (150-450); RBC 3.19 m/uL (4.30-5.90); RDW 15.4 % (11.5-15.5); WBC 11.5 k/uL (3.8-10.6)
[2022-12-17 08:20] LABS: HGB 9.2 gm/dL (13.0-17.5)
[2022-12-17] MEDS: METOPROLOL SUCCINATE (ER) 25 MG TAB.ER.24H PO SCH (08:44)
[2022-12-17] MEDS: AMIODARONE 200 MG TAB PO SCH ×2 (08:44→16:14)
[2022-12-17] MEDS: TAMSULOSIN 0.4 MG CAP.ER.24H PO SCH (08:44)
[2022-12-17] MEDS: HYDROcodone/APAP 5-325MG 1 EACH TAB PO PRN ×2 (08:55→17:13)
[2022-12-17] MEDS: PANTOPRAZOLE 40 MG/10 ML VIAL IVP SCH (09:17)
--- NOTE | 2022-12-17 11:16 | P.PN ---
Subjective Progress Note Date: 12/17/22 Principal diagnosis: Leukocytosis Patient is a 87-year-old male with a past medical history significant for perforated rectum due to fecal impaction requiring sigmoid colectomy and diverting colostomy in September 2020 could not be reversed because of multiple comorbid condition patient presented to hospital to the hospital with evisceration of portion of the small bowel at the colostomy site , status post laparotomy and repair of parastomal hernia and resection of portion of bowel. On today's evaluation that is 12/17/2022, patient remains to be afebrile, the patient is breathing comfortably on 3 L nasal cannula oxygen, the patient denies chest pain shortness breath or cough, patient complaining of some nausea and abdominal discomfort no output in the colostomy Objective - Vital Signs Vital signs: Vital Signs Temp 98.0 F 12/17/22 08:00 Pulse 128 H 12/17/22 08:00 Resp 18 12/17/22 08:00 BP 98/59 12/17/22 08:00 Pulse Ox 91 L 12/17/22 08:00 FiO2 Intake & Output 12/16/22 12/17/22 12/17/22 18:59 06:59 18:59 Intake Total 476 Output Total 500 600 Balance -24 -600 Intake: Oral 476 Output: Urine 500 600 Other: Voiding Method Indwelling Catheter Indwelling Catheter Indwelling Catheter - Exam GENERAL DESCRIPTION: An elderly male lying in bed in no distress RESPIRATORY SYSTEM: Unlabored breathing , decreased breath sounds at bases HEART: S1 S2 regular rate and rhythm , ABDOMEN: Soft , midline incision is intact no drainage no output in colostomy EXTREMITIES: No edema feet - Labs CBC & Chem 7: 12/17/22 07:11 12/17/22 07:11 Labs: Abnormal Lab Results - Last 24 Hours (Table) 12/17/22 12/17/22 Range/Units 07:11 07:11 WBC 11.5 H (3.8-10.6) k/uL RBC 3.19 L (4.30-5.90) m/uL Hgb 9.2 L D (13.0-17.5) gm/dL Hct 29.5 L (39.0-53.0) % Neutrophils # 10.2 H (1.3-7.7) k/uL Lymphocytes # 0.7 L (1.0-4.8) k/uL BUN 26 H (9-20) mg/dL Calcium 8.0 L (8.4-10.2) mg/dL Total Protein 5.5 L (6.3-8.2) g/dL Albumin 2.4 L (3.5-5.0) g/dL Microbiology - Last 24 Hours (Table) 12/15/22 05:50 Blood Culture - Preliminary Blood Assessment and Plan (1) Leukocytosis Current Visit: Yes Status: Acute Code(s): D72.829 - ELEVATED WHITE BLOOD CELL COUNT, UNSPECIFIED SNOMED Code(s): 010102344 (2) Evisceration of bowel Current Visit: Yes Status: Acute Code(s): [id number] - SNOMED Code(s): 16743758 Plan: 1patient presented to hospital with evisceration of the small bowel with a parastomal hernia in this patient who is status post laparotomy resection of the portion of ischemic bowel and takedown of the splenic flexure patient did have elevated white count however no documented perforation though ischemic bowel was slightly concerning and need to cover for the enteric gram-negative both aerobes and anaerobes 2-patient white count is down to 11,000 today, patient to to continue with Zosyn and continue supportive care
--- NOTE | 2022-12-17 12:47 | US ---
EXAMINATION TYPE: US chest DATE OF EXAM: 12/17/2022 COMPARISON: CXR CLINICAL INDICATION: Male, 87 years old with history of left effusion; Left effusion TECHNIQUE: Targeted ultrasound of the posterior lower left hemithorax EXAM MEASUREMENTS: Left Pleural Effusion pocket size: 6.6 cm Left skin surface to fluid distance: 3.1 cm Left side marked for possible thoracentesis outside the dept. Pulmonologists are able to review the images in the patient?s EMR. IMPRESSIONS: Small left pleural effusion
--- NOTE | 2022-12-17 13:02 | P.PN ---
Subjective Progress Note Date: 12/17/22 CHIEF COMPLAINT: Parastomal hernia with evisceration HISTORY OF PRESENT ILLNESS: Patient is postop day #3 status post exploratory laparotomy, repair of parastomal hernia, takedown of splenic flexure, partial colectomy and colostomy in right upper quadrant. Patient reports his pain is controlled. He denies any nausea or vomiting. He is tolerating clear liquids. No output through his ostomy. Afebrile. Patient did have a heart rate up to 128. Currently HR 75. WBC is 11.5 down from 16. Hemoglobin 10.7-9.2 platelets 280 10/02/2027 potassium 4.3 creatinine 1.15 PHYSICAL EXAM: VITAL SIGNS: Reviewed. GENERAL: Well-developed in no acute distress. ABDOMEN: Soft. Nondistended. Incision site clean dry and intact. Roll drain noted on the left with serosanguineous drainage on dressing. Ostomy on the right stoma beefy red. No stool output. NEUROLOGIC: awake and alert ASSESSMENT: 1. Parastomal hernia with evisceration 2. History of Afib 3. History of cardiomyopathy EF 20% PLAN: -Continue clear liquid diet -Continue IV fluids at 75ml/hr -continue pain management -continue antibiotics -Encouraged patient to use incentive spirometer -Continue DVT prophylaxis subcu heparin and GI prophylaxis Protonix Physician Folding Machine Feeder note has been reviewed by physician. Signing provider agrees with the documented findings, assessment, and plan of care. Objective - Vital Signs Vital signs: Vital Signs Temp 97.7 F 12/17/22 12:00 Pulse 75 12/17/22 12:00 Resp 18 12/17/22 12:00 BP 92/51 12/17/22 12:00 Pulse Ox 96 12/17/22 12:00 FiO2 Intake & Output 12/16/22 12/17/22 12/17/22 18:59 06:59 18:59 Intake Total 476 Output Total 500 600 Balance -24 -600 Intake: Oral 476 Output: Urine 500 600 Other: Voiding Method Indwelling Catheter Indwelling Catheter Indwelling Catheter - Labs CBC & Chem 7: 12/17/22 07:11 12/17/22 07:11 Labs: Abnormal Lab Results - Last 24 Hours (Table) 12/17/22 12/17/22 Range/Units 07:11 07:11 WBC 11.5 H (3.8-10.6) k/uL RBC 3.19 L (4.30-5.90) m/uL Hgb 9.2 L D (13.0-17.5) gm/dL Hct 29.5 L (39.0-53.0) % Neutrophils # 10.2 H (1.3-7.7) k/uL Lymphocytes # 0.7 L (1.0-4.8) k/uL BUN 26 H (9-20) mg/dL Calcium 8.0 L (8.4-10.2) mg/dL Total Protein 5.5 L (6.3-8.2) g/dL Albumin 2.4 L (3.5-5.0) g/dL Microbiology - Last 24 Hours (Table) 12/15/22 05:50 Blood Culture - Preliminary Blood
--- NOTE | 2022-12-17 14:25 | P.PN ---
Subjective Progress Note Date: 12/17/22 87-year-old male patient, multiple no comorbidities, with a previous history of a perforated rectum due to fecal impaction was underwent an emergent sigmoid colectomy and diverting colostomy creation by general surgery in September 2020. The patient was in the hospital back in October 2022 because of swelling and prolapse of his ostomy site. He wanted to have his colostomy reversed. However due to pre-existing cardiac conditions and other comorbidities, this was not done. He was considered to be very high risk. Noted the patient is known to have chronic systolic heart failure, and is also known to have previous history of chronic atrial fibrillation, CVA, DVT and he has limited on anticoagulation with Eliquis. Other comorbid conditions include hypertension and hyperlipidemia and previous history of pulmonary embolism. He has issues also with BPH and protein calorie malnutrition. The patient as such is chronically debilitated. The patient presented himself to the emergency department today. Apparently was getting to the toilet and his hernia rupture then eviscerated approximately 3 f eet of small bowel emergency at the colostomy site. For that reason, the patient came into the emergency department. He was hemodynamically stable. His labs showed a white cell count of 15 with a hemoglobin 11.8 and a platelet count of 398. BUN was 41 with a creatinine of 1.1 and a sodium level is 137. Based on that, the patient was taken to the operating room and the patient underwent repair of a parastomal hernia, taking down of the splenic flexure, partial colectomy and colostomy in the right upper quadrant. Estimated blood loss was 200 mL. The patient currently is having some bloody oozing into his colostomy bag. Surgical wound is dry clean and intact. Note that he was on antico agulation with Eliquis preoperatively. His cognition profile has been essentially within normal limits. Chest x-ray in the OR showed pulmonary vessel congestion, possibly left-sided pleural effusion and the air in his abdomen occupying under the diaphragm. On today's evaluation of 12/15/2022, the patient is awake and alert and communicating. He underwent surgery yesterday and the patient is currently postop day #1. He did very well overnight and he is still hemodynamically stable. He remains in a chest fibrillation. No anticoagulants for now. Note that he was taken Ellis was on outpatient basis and this was essentially discontinued. Otherwise, we have not witnessed any bleeding. His surgery 1 is dry clean and intact. The patient has a viable colostomy that was constructed in the right upper quadrant. His hemoglobin is stable at 10.7. The white cell count is at 16 and the sodium is at 138 with a BUN of 38 and a creatinine of 1.1. He is doing well. He remains nothing by mouth for now. No issues with pain. He was provided incentive spirometer. On 12/17/2019, the patient is postop day #2. He was given some clear liquid diet. His for cough and poor ability to do pulmonary toileting. Does have some upper airway secretions. Using the incentive spirometer. Remains on IV Zosyn. Pain is under adequate control. Bowel sounds are hypoactive and there is no functional status colostomy. Surgical site is dry clean and intact. No recent blood work from today. Blood work from yesterday was noted. The patient is seen today 12/17/2022 in follow-up on the selective care unit. Postoperative day #3 for a parastomal hernia with evisceration. He is currently awake and alert in no acute distress. He is quite frail and weak. He has a loose nonproductive cough. He is maintaining O2 saturations in the 90s on 3 L/m per nasal cannula. Currently afebrile. Ultrasound of the left chest reveals a 6.6 cm pocket. Blood cultures pending. White count 11.5. Hemoglobin 9.2. Platelets 282. Sodium 138. Potassium 4.3. Bicarb 28. BUN 26. Creatinine 1.15. He remains on antibiotics in the form of Zosyn. Heparin for DVT prophylaxis. Ostomy on the right with no stool noted. Objective - Vital Signs Vital signs: Vital Signs Temp 97.7 F 12/17/22 12:00 Pulse 75 12/17/22 12:00 Resp 18 12/17/22 12:00 BP 92/51 12/17/22 12:00 Pulse Ox 96 12/17/22 12:00 FiO2 Intake & Output 12/16/22 12/17/22 12/17/22 18:59 06:59 18:59 Intake Total 476 Output Total 500 600 Balance -24 -600 Intake: Oral 476 Output: Urine 500 600 Other: Voiding Method Indwelling Catheter Indwelling Catheter Indwelling Catheter - Exam GENERAL EXAM: Alert, frail, cachectic 87-year-old male patient, on 3 L nasal cannula, fairly comfortable in no apparent distress. HEAD: Normocephalic. EYES: Normal reaction of pupils, equal size. NOSE: Clear with pink turbinates. THROAT: No erythema or exudates. NECK: No masses, no JVD. CHEST: No chest wall deformity. LUNGS: Equal air entry with crackles in left base, diminished. CVS: S1 and S2 normal with no audible murmur, irregular rhythm. ABDOMEN: Soft, nondistended. Incision site clean dry and well approximated. Stafford drain noted in the left with serosanguineous drainage on dressing. Ostomy on the right with a stoma pink. No stool noted. Hypoactive bowel sounds, no guarding or rigidity. SPINE: No scoliosis or deformity SKIN: No rashes CENTRAL NERVOUS SYSTEM: No focal deficits, tone is normal in all 4 extremities. EXTREMITIES: There is no peripheral edema. No clubbing, no cyanosis. Peripheral pulses are intact. 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 Patient is postoperative day #3. Clinically stable and hemodynamically stable. Currently on Zosyn. Ostomy pink. No stool. Stafford drain in place on the left. Previous history of a perforated colon due to chronic constipation requiring colectomy and diverting colostomy with subsequent development of a parastomal hernia History of CHF with a previous echocardiogram showing left ventricle ejection fraction of 20% from September 2022 History of chronic bilateral pleural effusion, most recent chest x-ray showing left-sided pleural effusion. Ultrasound of the left chest reveals a 6.6 cm pocket Free air under the right hemidiaphragm, likely postsurgical in nature Previous history of DVT and pulmonary embolism, maintained on anticoagulation with Eliquis Chronic atrial fibrillation, anticoagulated with Eliquis preop Hypertension Hyperlipidemia Previous history of CVA BPH Bilateral cataract Chronic debility secondary to above-mentioned comorbidities Plan: The patient was seen and evaluated Medications and labs reviewed Ordered ultrasound of the left chest May require thoracentesis Currently on 3 L nasal cannula Titrate the FiO2 as tolerated Encourage increased use of the incentive spirometer Advance diet per surgical services We will continue to follow I have personally seen and examined the patient, performed the documentation and the assessment and plan as written. Number of minutes spent on the visit: 10.
[2022-12-17] MEDS: LACTATED RINGERS 1,000 ML IV SCH (16:12)
--- NOTE | 2022-12-18 01:18 | P.PN ---
Subjective Progress Note Date: 12/16/22 Patient is a 87-year-old male with a known history of parastomal hernia and history of sigmoid colectomy and end colostomy. Apparently patient was sitting on the toilet and he lost his balance and slid forward and his noticed that his bowel had perforated through the stomal site. Patient underwent expiratory laparotomy and repair of parastomal hernia and partial colectomy. Colostomy in the right upper quadrant. Postoperatively patient was being monitored in the MICU. Patient is required pain management with Dilaudid and patient is currently nothing by mouth. Patient was hypotensive today afternoon and was given 200 cc fluid bolus with improvement in blood pressure. Otherwise patient denied any complaints of chest pain or shortness of breath. No nausea or vomiting or worsening abdominal pain. Currently requiring 2 L oxygen via nasal cannula. Laboratory showed WBC 16.1 hemoglobin 10.7 platelets 354 Sodium 138 potassium 5.2 chloride 105 bicarb is 24 BUN 38 and creatinine 1.12, AST 21 ALT 22 alk phos 135 and CRP 6.0 and albumin 2.6. Patient on antibiotics in the form of Zosyn. Continued on IV hydration with Ringer's lactate. 12/16/2022 Patient is in the telemetry unit. Awake alert and oriented. Still complains of abdominal pain. Otherwise patient has been having cough and unable to clear secretions. No wheezing or rhonchi noted on the physical exam. Patient is being current on IV Zosyn. No new laboratory data today. Patient has been afebrile. On 3 L oxygen via nasal cannula. Current medications reviewed.. Objective - Vital Signs Vital signs: Vital Signs Temp 97.4 F L 12/16/22 15:52 Pulse 80 12/16/22 15:52 Resp 18 12/16/22 15:52 BP 89/52 12/16/22 15:52 Pulse Ox 93 L 12/16/22 15:52 FiO2 Intake & Output 12/16/22 12/16/22 12/17/22 06:59 18:59 06:59 Intake Total 476 Output Total 1050 500 Balance -1049 -24 Intake: Oral 476 Output: Urine 1050 500 Other: Voiding Method Indwelling Catheter Indwelling Catheter - Exam PHYSICAL EXAMINATION: Patient is lying in the bed comfortably, no acute distress, awake alert and oriented.. HEENT: Normocephalic. Neck is supple. Pupils reactive. Nostrils clear. Oral cavity is moist. Neck reveals no JVD, carotid bruits, or thyromegaly. CHEST EXAMINATION: Trachea is central. Symmetrical expansion. Lung wise clear to auscultation and percussion. CARDIAC: Normal S1, S2 with no gallops. No murmurs ABDOMEN: Soft. Bowel sounds present. Tenderness at the surgical site. Colostomy bag right upper quadrant. No organomegaly. No abdominal bruits. Extremities: reveal no edema. No clubbing or cyanosis Neurologically awake, alert, oriented x3 with well-coordinated movements. No focal deficits noted Skin: No rash or skin lesions. Psychiatric: Coperative. Nonsuicidal, Musculoskeletal: No joint swelling or deformity. Normal range of motion. 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 Of parastomal hernia. Colostomy in the right upper quadrant. Postoperative day 2 History of colon perforation requiring colectomy and diverting colostomy and subsequent development of parastomal hernia. Chronic CHF with systolic dysfunction ejection fraction 20% Chronic small bilateral pleural effusion Chronic atrial fibrillation on anticoagulation with Eliquis at home Hypertension Hyperlipidemia History of CVA BPH DVT prophylaxis with heparin subcu until restarting Eliquis. Plan: Patient will be continued on IV hydration. Currently on Ringer's lactate at 75 cc/h. Continue to monitor fluid status. Continue with Zosyn. Patient was started on liquid diet and advance as tolerated. Encourage incentive spirometry. start back on amiodarone and beta-blockers once patient is able to tolerate oral diet. Follow-up closely and further recommendations based on the clinical course. Time with Patient: Greater than 30
--- NOTE | 2022-12-18 01:20 | P.PN ---
Subjective Progress Note Date: 12/17/22 Patient is a 87-year-old male with a known history of parastomal hernia and history of sigmoid colectomy and end colostomy. Apparently patient was sitting on the toilet and he lost his balance and slid forward and his noticed that his bowel had perforated through the stomal site. Patient underwent expiratory laparotomy and repair of parastomal hernia and partial colectomy. Colostomy in the right upper quadrant. Postoperatively patient was being monitored in the MICU. Patient is required pain management with Dilaudid and patient is currently nothing by mouth. Patient was hypotensive today afternoon and was given 200 cc fluid bolus with improvement in blood pressure. Otherwise patient denied any complaints of chest pain or shortness of breath. No nausea or vomiting or worsening abdominal pain. Currently requiring 2 L oxygen via nasal cannula. Laboratory showed WBC 16.1 hemoglobin 10.7 platelets 354 Sodium 138 potassium 5.2 chloride 105 bicarb is 24 BUN 38 and creatinine 1.12, AST 21 ALT 22 alk phos 135 and CRP 6.0 and albumin 2.6. Patient on antibiotics in the form of Zosyn. Continued on IV hydration with Ringer's lactate. 12/16/2022 Patient is in the telemetry unit. Awake alert and oriented. Still complains of abdominal pain. Otherwise patient has been having cough and unable to clear secretions. No wheezing or rhonchi noted on the physical exam. Patient is being current on IV Zosyn. No new laboratory data today. Patient has been afebrile. On 3 L oxygen via nasal cannula. 12/17/2022 Patient is postoperative day 3 Currently lying in the bed. Awake alert and oriented. No complaints of chest pain or shortness of breath. No nausea or vomiting. Tolerating clear liquids. Patient has been afebrile. Currently on 3 L via nasal cannula. Laboratory test showed WBC trending down to 11.5 hemoglobin 9.2 and platelets 282 sodium 138 potassium 4.3 chloride 105 bicarb is 28 BUN 26 and creatinine 1.15 and albumin 2.4 Chest ultrasound showed a small left pleural effusion. Pulmonary is on board. Current medications reviewed.. Objective - Vital Signs Vital signs: Vital Signs Temp 98.5 F 12/17/22 20:00 Pulse 64 12/17/22 20:00 Resp 14 12/17/22 20:00 BP 102/59 12/17/22 20:00 Pulse Ox 96 12/17/22 20:00 FiO2 Intake & Output 12/17/22 12/17/22 12/18/22 06:59 18:59 06:59 Output Total 1100 Balance -1100 Weight 64.1 kg Output: Urine 1100 Other: Voiding Method Indwelling Catheter Indwelling Catheter - Exam PHYSICAL EXAMINATION: Patient is lying in the bed comfortably, no acute distress, awake alert and oriented.. HEENT: Normocephalic. Neck is supple. Pupils reactive. Nostrils clear. Oral cavity is moist. Neck reveals no JVD, carotid bruits, or thyromegaly. CHEST EXAMINATION: Trachea is central. Symmetrical expansion. Lung wise clear to auscultation and percussion. CARDIAC: Normal S1, S2 with no gallops. No murmurs ABDOMEN: Soft. Bowel sounds present. Tenderness at the surgical site. Colostomy bag right upper quadrant. No organomegaly. No abdominal bruits. Extremities: reveal no edema. No clubbing or cyanosis Neurologically awake, alert, oriented x3 with well-coordinated movements. No focal deficits noted Skin: No rash or skin lesions. Psychiatric: Coperative. Nonsuicidal, Musculoskeletal: No joint swelling or deformity. Normal range of motion. 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 Of parastomal hernia. Colostomy in the right upper quadrant. Postoperative day 3 History of colon perforation requiring colectomy and diverting colostomy and sub sequent development of parastomal hernia. Chronic CHF with systolic dysfunction ejection fraction 20% Chronic small bilateral pleural effusion Chronic atrial fibrillation on anticoagulation with Eliquis at home Hypertension Hyperlipidemia History of CVA BPH DVT prophylaxis with heparin subcu until restarting Eliquis. Plan: Patient will be continued on IV hydration-Ringer's lactate at 75 cc/h. Continue to monitor fluid status. Continue with Zosyn. Patient was started on liquid diet and advance as tolerated. Encourage incentive spirometry. start back on amiodarone and beta-blockers once patient is able to tolerate oral diet. Follow-up closely and further recommendations based on the clinical course. Time with Patient: Greater than 30
[2022-12-18] MEDS: PIPERACILLIN-TAZOBACTAM 3.375 GM in SODIUM CHLORIDE 0.9% 100 ML IVPB SCH ×3 (01:53→16:54)
[2022-12-18] MEDS: HEPARIN SODIUM,PORCINE/PF 5,000 UNIT/0.5 ML SYRINGE SQ SCH ×3 (01:54→17:18)
[2022-12-18] MEDS: LACTATED RINGERS 1,000 ML IV SCH ×2 (01:54→17:19)
[2022-12-18] MEDS: HYDROcodone/APAP 5-325MG 1 EACH TAB PO PRN ×2 (05:58→16:54)
--- NOTE | 2022-12-18 09:48 | XR ---
EXAMINATION TYPE: XR chest 1V portable DATE OF EXAM: 12/18/2022 COMPARISON: NONE HISTORY: Shortness of breath TECHNIQUE: Single frontal view of the chest is obtained. FINDINGS: Bilateral consolidation and small pleural effusion. There is severe arthropathy of the rig ht shoulder. There is no pneumothorax. The free intraperitoneal air seen on the prior exam is not jose c ntified on today's exam. Heart size stable. New small area of peripheral right upper lobe infiltrate. IMPRESSION: 1. Bilateral infiltrate and pleural effusion correlate for CHF superimposed on a background of COPD. New peripheral based infiltrate right upper lobe. 2. Interval reduction in amount of free intraperitoneal air.
[2022-12-18] MEDS: AMIODARONE 200 MG TAB PO SCH ×2 (09:55→17:19)
[2022-12-18] MEDS: TAMSULOSIN 0.4 MG CAP.ER.24H PO SCH (09:55)
[2022-12-18] MEDS: PANTOPRAZOLE 40 MG/10 ML VIAL IVP SCH ×2 (09:55→19:59)
[2022-12-18] MEDS: METOPROLOL SUCCINATE (ER) 25 MG TAB.ER.24H PO SCH (09:56)
[2022-12-18] MEDS: FUROSEMIDE 10 MG/ML 2 ML VIAL IV SCH ×2 (09:58→20:00)
[2022-12-18 10:13] LABS: Calcium 8.2 mg/dL (8.4-10.2); Potassium 4.4 mmol/L (3.5-5.1)
[2022-12-18] MEDS ORDERED: LACTULOSE 20 GM/30 ML CUP PO ONE (12:37)
--- NOTE | 2022-12-18 12:37 | P.PN ---
Subjective Progress Note Date: 12/18/22 CHIEF COMPLAINT: Parastomal hernia with evisceration HISTORY OF PRESENT ILLNESS: Patient is postop day #4 status post exploratory laparotomy, repair of parastomal hernia, takedown of splenic flexure, partial colectomy and colostomy in right upper quadrant. Patient does complain of abdominal pain. Controlled with pain medications. Denies any nausea or vomiting. No output through the ostomy. Afebrile. Chest x-ray bilateral infiltrate and pleural effusion correlate for CHF superimposed on a background of COPD. New peripheral-based infiltrate right lower lobe. Interval reduction in amount of free intraperitoneal air. Ultrasound of the chest that showed small left pleural effusion. Pulmonary service has added IV Lasix. Patient seen and examined with Dr. barr PHYSICAL EXAM: VITAL SIGNS: Reviewed. GENERAL: Well-developed in no acute distress. ABDOMEN: Soft. Nondistended. Incision site clean dry and intact. Flash drain noted on the left with serosanguineous drainage on dressing. Ostomy on the right stoma beefy red. No stool output. Crepitus noted with palpation above the stoma and up into the right side chest wall NEUROLOGIC: awake and alert ASSESSMENT: 1. Parastomal hernia with evisceration 2. History of Afib 3. History of cardiomyopathy EF 20% 4. Subcutaneous emphysema at the stoma site into the chest wall likely secondary to surgery and will absorb with time PLAN: -Continue clear liquid diet -Lactulose added for constipation -continue pain management -continue antibiotics -Encouraged patient to use incentive spirometer -Encouraged patient to increase activity level -Continue DVT prophylaxis subcu heparin and GI prophylaxis Protonix Physician [employer] Technician note has been reviewed by physician. Signing provider agrees with the documented findings, assessment, and plan of care. Objective - Vital Signs Vital signs: Vital Signs Temp 97.8 F 12/18/22 08:00 Pulse 81 12/18/22 08:00 Resp 16 12/18/22 08:00 BP 99/55 12/18/22 08:00 Pulse Ox 92 L 12/18/22 08:00 FiO2 Intake & Output 12/17/22 12/18/22 12/18/22 18:59 06:59 18:59 Intake Total 540 480 Output Total 1100 500 300 Balance -1100 40 180 Weight 64.1 kg Intake: Oral 540 480 Output: Urine 1100 500 300 Other: Voiding Method Indwelling Catheter Indwelling Catheter Indwelling Catheter # Voids 1 - Labs CBC & Chem 7: 12/17/22 07:11 12/18/22 08:33 Labs: Abnormal Lab Results - Last 24 Hours (Table) 12/18/22 Range/Units 08:33 Sodium 136 L (137-145) mmol/L BUN 21 H (9-20) mg/dL Glucose 106 H (74-99) mg/dL Calcium 8.2 L (8.4-10.2) mg/dL Microbiology - Last 24 Hours (Table) 12/15/22 05:50 Blood Culture - Preliminary Blood
[2022-12-18] MEDS ORDERED: IPRATROPIUM-ALBUTEROL 3 ML NEB INHALATION PRN (12:59)
--- NOTE | 2022-12-18 14:06 | P.PN ---
Subjective Progress Note Date: 12/18/22 87-year-old male patient, multiple no comorbidities, with a previous history of a perforated rectum due to fecal impaction was underwent an emergent sigmoid colectomy and diverting colostomy creation by general surgery in September 2020. The patient was in the hospital back in October 2022 because of swelling and prolapse of his ostomy site. He wanted to have his colostomy reversed. However due to pre-existing cardiac conditions and other comorbidities, this was not done. He was considered to be very high risk. Noted the patient is known to have chronic systolic heart failure, and is also known to have previous history of chronic atrial fibrillation, CVA, DVT and he has limited on anticoagulation with Eliquis. Other comorbid conditions include hypertension and hyperlipidemia and previous history of pulmonary embolism. He has issues also with BPH and protein calorie malnutrition. The patient as such is chronically debilitated. The patient presented himself to the emergency department today. Apparently was getting to the toilet and his hernia rupture then eviscerated approximately 3 f eet of small bowel emergency at the colostomy site. For that reason, the patient came into the emergency department. He was hemodynamically stable. His labs showed a white cell count of 15 with a hemoglobin 11.8 and a platelet count of 398. BUN was 41 with a creatinine of 1.1 and a sodium level is 137. Based on that, the patient was taken to the operating room and the patient underwent repair of a parastomal hernia, taking down of the splenic flexure, partial colectomy and colostomy in the right upper quadrant. Estimated blood loss was 200 mL. The patient currently is having some bloody oozing into his colostomy bag. Surgical wound is dry clean and intact. Note that he was on antico agulation with Eliquis preoperatively. His cognition profile has been essentially within normal limits. Chest x-ray in the OR showed pulmonary vessel congestion, possibly left-sided pleural effusion and the air in his abdomen occupying under the diaphragm. On today's evaluation of 12/15/2022, the patient is awake and alert and communicating. He underwent surgery yesterday and the patient is currently postop day #1. He did very well overnight and he is still hemodynamically stable. He remains in a chest fibrillation. No anticoagulants for now. Note that he was taken Ellis was on outpatient basis and this was essentially discontinued. Otherwise, we have not witnessed any bleeding. His surgery 1 is dry clean and intact. The patient has a viable colostomy that was constructed in the right upper quadrant. His hemoglobin is stable at 10.7. The white cell count is at 16 and the sodium is at 138 with a BUN of 38 and a creatinine of 1.1. He is doing well. He remains nothing by mouth for now. No issues with pain. He was provided incentive spirometer. On 12/17/2019, the patient is postop day #2. He was given some clear liquid diet. His for cough and poor ability to do pulmonary toileting. Does have some upper airway secretions. Using the incentive spirometer. Remains on IV Zosyn. Pain is under adequate control. Bowel sounds are hypoactive and there is no functional status colostomy. Surgical site is dry clean and intact. No recent blood work from today. Blood work from yesterday was noted. The patient is seen today 12/17/2022 in follow-up on the selective care unit. Postoperative day #3 for a parastomal hernia with evisceration. He is currently awake and alert in no acute distress. He is quite frail and weak. He has a loose nonproductive cough. He is maintaining O2 saturations in the 90s on 3 L/m per nasal cannula. Currently afebrile. Ultrasound of the left chest reveals a 6.6 cm pocket. Blood cultures pending. White count 11.5. Hemoglobin 9.2. Platelets 282. Sodium 138. Potassium 4.3. Bicarb 28. BUN 26. Creatinine 1.15. He remains on antibiotics in the form of Zosyn. Heparin for DVT prophylaxis. Ostomy on the right with no stool noted. The patient is seen today 12/18/2022 in follow-up on the selective care unit. Postoperative day #4 for parastomal hernia with evisceration. He is currently resting fairly comfortable in bed. He is quite weak and unable to sit up on his own. No plans for thoracentesis at this point. There is noted subcutaneous emphysema of the right anterior side of his chest. Chest x-ray reveals bilateral infiltrate and pleural effusion suspicious for congestive heart failure superimposed on background COPD. New peripheral-based infiltrate in the right upper lobe. Interval reduction in the amount of free intraperitoneal air. He is maintaining O2 saturation in the mid 90s on 3 L/m per nasal cannula. He's been afebrile. Blood cultures pending. Sodium 136. Potassium 4.4. Bicarb 26. BUN 21. Creatinine 1.07. Glucose 106. He is currently in a -1 L balance. He's been initiated on Lasix 20 mg IV every 12 hours. Heparin for DVT prophylaxis. Remains on bronchodilators. Remains on antibiotics in the form of Zosyn. Objective - Vital Signs Vital signs: Vital Signs Temp 97.1 F L 12/18/22 12:00 Pulse 76 12/18/22 12:00 Resp 16 12/18/22 12:00 BP 85/55 12/18/22 12:00 Pulse Ox 95 12/18/22 12:00 FiO2 Intake & Output 12/17/22 12/18/22 12/18/22 18:59 06:59 18:59 Intake Total 540 480 Output Total 1100 500 300 Balance -1100 40 180 Weight 64.1 kg Intake: Oral 540 480 Output: Urine 1100 500 300 Other: Voiding Method Indwelling Catheter Indwelling Catheter Indwelling Catheter # Voids 1 - Exam GENERAL EXAM: Alert, frail, weak 87-year-old male patient, on 3 L nasal cannula, comfortable in no apparent distress. HEAD: Normocephalic. EYES: Normal reaction of pupils, equal size. NOSE: Clear with pink turbinates. THROAT: No erythema or exudates. NECK: No masses, no JVD. CHEST: No chest wall deformity. LUNGS: Equal air entry with crackles in left base, diminished. CVS: S1 and S2 normal with no audible murmur, irregular rhythm. ABDOMEN: Soft, nondistended. Incision site clean dry and well approximated. Flash drain noted in the left with serosanguineous drainage on dressing. Ostomy on the right with a beefy red stoma. No stool noted. Hypoactive bowel sounds, no guarding or rigidity. There is subcutaneous emphysema noted under the right anterior chest above the ostomy site. SPINE: No scoliosis or deformity SKIN: No rashes CENTRAL NERVOUS SYSTEM: No focal deficits, tone is normal in all 4 extremities. EXTREMITIES: There is no peripheral edema. No clubbing, no cyanosis. Peripheral pulses are intact. - Labs CBC & Chem 7: 12/17/22 07:11 12/18/22 08:33 Labs: Abnormal Lab Results - Last 24 Hours (Table) 12/18/22 Range/Units 08:33 Sodium 136 L (137-145) mmol/L BUN 21 H (9-20) mg/dL Glucose 106 H (74-99) mg/dL Calcium 8.2 L (8.4-10.2) mg/dL Microbiology - Last 24 Hours (Table) 12/15/22 05:50 Blood Culture - Preliminary Blood Assessment and Plan Assessment: 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 Patient is postoperative day #4. Clinically stable and hemodynamically stable. Currently on Zosyn. Ostomy pink. No stool. Flash drain in place on the left. He has developed subcutaneous emphysema in the right anterior chest above the stoma. Previous history of a perforated colon due to chronic constipation requiring colectomy and diverting colostomy with subsequent development of a parastomal hernia History of CHF with a previous echocardiogram showing left ventricle ejection fraction of 20% from September 2022 History of chronic bilateral pleural effusion, most recent chest x-ray showing left-sided pleural effusion. Ultrasound of the left chest reveals a 6.6 cm pocket Free air under the right hemidiaphragm, likely postsurgical in nature showing interval reduction in follow-up chest x-ray. Acute hypoxemic respiratory failure secondary to above. Follow-up chest x-ray reveals bilateral infiltrate and pleural effusion suggestive of congestive heart failure superimposed on the background of chronic obstructive pulmonary disease. New peripheral-based infiltrate in the right upper lobe. Interval reduction in the amount of free intraperitoneal air. Previous history of DVT and pulmonary embolism, maintained on anticoagulation with Eliquis Chronic atrial fibrillation, anticoagulated with Eliquis preop Hypertension Hyperlipidemia Previous history of CVA BPH Bilateral cataract Poor overall functional performance based on the above-mentioned multiple comorbidities Plan: The patient was seen and evaluated Chest x-ray, medications and labs reviewed Initiated on Lasix 20 mg IV every 12 hours No plans for thoracentesis at this point Currently on 3 L nasal cannula Titrate the FiO2 as tolerated Encourage increased use of the incentive spirometer Advance diet per surgical services Overall prognosis is guarded We will continue to follow I have personally seen and examined the patient, performed the documentation and the assessment and plan as written. Number of minutes spent on the visit: 10.
[2022-12-18] MEDS: IPRATROPIUM-ALBUTEROL 3 ML NEB INHALATION SCH ×2 (16:17→22:20)
--- NOTE | 2022-12-18 23:05 | PN ---
PROGRESS NOTE DATE OF SERVICE: 12/18/2022 SUBJECTIVE: This is an 87-year-old gentleman who was admitted after surgery, had some shortness of breath. The patient is extremely emaciated, sick-looking, and has shortness of breath. The patient has left pleural effusion. Dr. Mcallister has initiated IV Lasix at this time. PAST MEDICAL HISTORY: Reviewed. REVIEW OF SYSTEMS: A 14-point review is negative except as mentioned earlier. CURRENT MEDICATIONS: Reviewed include IV Lasix. PHYSICAL EXAMINATION: VITAL SIGNS: Pulse is 81, blood pressure 99/54, respirations 16. CHEST: A few scattered rhonchi and crackles. ABDOMEN: Soft. Status post surgery. NERVOUS SYSTEM: No focal deficits. LABORATORY DATA: Labs are reviewed. Sodium 136. Rest of the labs reviewed. Chest x-ray reviewed personally. ASSESSMENT: 1. Status post acute parastomal hernia with repair and colostomy. 2. History of perforated colon secondary to chronic constipation. 3. History of congestive heart failure. 4. Left pleural effusion, predominantly. 5. Chronic atrial fibrillation. 6. Hypertension. 7. Multiple medical issues. RECOMMENDATIONS AND DISCUSSION: This is an 87-year-old gentleman who presented with multiple complex medical issues, we will monitor the patient closely. I would recommend continue with IV Lasix, limit fluid intake and recommend to cut down the IV fluids at this time and incentive spirometry. I would also recommend some course of breathing treatment as well. Prognosis extremely guarded because of multiple complex medical issues. Further recommendations to follow. See orders for further details. DVT prophylaxis on board as well as GI prophylaxis. Empiric antibiotics also have been given. The cultures are negative so far. I would recommend PT/OT evaluation and possible ECF rehab as well. MMODL / IJN: [id number] /
[2022-12-19] MEDS: PIPERACILLIN-TAZOBACTAM 3.375 GM in SODIUM CHLORIDE 0.9% 100 ML IVPB SCH ×3 (00:15→18:04)
[2022-12-19] MEDS: HEPARIN SODIUM,PORCINE/PF 5,000 UNIT/0.5 ML SYRINGE SQ SCH ×3 (00:15→18:04)
[2022-12-19] MEDS: HYDROmorphone 0.5 MG/0.5 ML SYRINGE IVP PRN (03:40)
[2022-12-19] MEDS: AMIODARONE 200 MG TAB PO SCH ×2 (07:45→18:05)
[2022-12-19] MEDS: METOPROLOL SUCCINATE (ER) 25 MG TAB.ER.24H PO SCH (07:45)
[2022-12-19] MEDS: PANTOPRAZOLE 40 MG/10 ML VIAL IVP SCH ×2 (07:45→21:29)
[2022-12-19] MEDS: TAMSULOSIN 0.4 MG CAP.ER.24H PO SCH (07:45)
[2022-12-19] MEDS: FUROSEMIDE 10 MG/ML 2 ML VIAL IV SCH ×2 (07:46→21:29)
[2022-12-19] MEDS: HYDROcodone/APAP 5-325MG 1 EACH TAB PO PRN ×2 (07:48→15:34)
[2022-12-19] MEDS: IPRATROPIUM-ALBUTEROL 3 ML NEB INHALATION SCH ×3 (08:12→21:24)
[2022-12-19 10:06] LABS: Calcium 7.8 mg/dL (8.4-10.2); Potassium 4.1 mmol/L (3.5-5.1)
--- NOTE | 2022-12-19 10:41 | P.CONS ---
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 Patient is being seen by the wound care center with multiple ulcerations patient has a stage II ulceration to the coccyx, stage II pressure ulcer to the right thigh, a pressure ulcer to the left heel that is unstageable and a pressure ulcer to the left lateral foot that is a stage II. Coccyx ulceration has minimal granulation noted with nonviable tissue present, right thigh ulceration is a stage II pressure ulcer with minimal granulation and slough noted, left lateral foot is a stage II pressure ulcer with minimal granulation and nonviable tissue present, left heel ulceration is unstageable pressure ulcer with eschar In place. Review Of Systems: Constitutional: No fever, no chills, no night sweats. No weight change. No weakness, fatigue or lethargy. No daytime sleepiness. Integumentary:reports wounds, no lesions. No rash or pruritus. No unusual bruising. No change in hair or nails. Physical exam: General Appearance: Alert, cooperative, no distress, appears stated age. Skin: See HPI all other Skin color, texture, tugor normal, no rashes or lesions. Neurologic: Alert oriented x3 Assessment: 1. Unstageable ulceration left heel 2. Stage II pressure ulcer coccyx 3. Stage II pressure ulcer right thigh 4. Stage II pressure ulcer left lateral foot Plan: 1. Sacrum: Apply honey gel, gauze, ABD and secure with tape. Right thigh, Left lateral foot, and left foot: Apply honey gel, gauze, rolled gauze and secure with tape. Change Saturday. Thank you for the consultation any questions please contact the wound care center DNP note has been reviewed and discussed with Dr. Hoffman and the impression and plan of care has been directed as dictated. 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 History of Any Multi-Drug Resistant Organisms: None Reported Past Surgical History: Bowel Resection Additional Past Surgical History / Comment(s): 2020 bowel resection/colostomy, CVA in 1955 which made need for R elbow surgery/R ankle fusion, post cva surgery on back to remove blood clot, bilateral eye lens implants. Past Anesthesia/Blood Transfusion Reactions: No Reported Reaction Additional Past Anesthesia/Blood Transfusion Reaction / Comm: Pt believes he has received blood in past without reaction. Past Psychological History: No Psychological Hx Reported Smoking Status: Former smoker Past Alcohol Use History: None Reported Past Drug Use History: None Reported - Past Family History Mother Family Medical History: Dementia Additional Family Medical History / Comment(s): ALZHEIMERS Father Family Medical History: No Reported History Additional Family Medical History / Comment(s): Pt states his father was healthy Medications and Allergies Home Medications Medication Instructions Recorded Confirmed Type Tamsulosin HCl [Flomax] 0.4 mg PO DAILY 02/14/18 12/14/22 History Pantoprazole Sodium [Protonix] 40 mg PO DAILY 10/20/22 12/14/22 History Metoprolol Succinate (ER) [Toprol 25 mg PO DAILY tab 10/24/22 12/14/22 Rx XL] Albuterol Inhaler [Ventolin Hfa 2 puff INHALATION RT-Q6H 10/28/22 12/14/22 History Inhaler] Apixaban [Eliquis] 2.5 mg PO BID@0800,1700 10/28/22 12/14/22 History Aspirin 81 mg PO DAILY@1200 10/28/22 12/14/22 History Ensure Enlive 237 ml PO TID@0800,1200,1700 10/28/22 12/14/22 History Eucerin Advanced Repair Cream 1 applic TOPICAL DAILY 10/28/22 12/14/22 History Eucerin Advanced Repair Cream 1 applic TOPICAL DAILY PRN 10/28/22 12/14/22 History Magnesium Hydroxide [Milk of 7,200 mg PO Q48H PRN 10/28/22 12/14/22 History Magnesia Concentrate] Na Phos,M-B/Na Phos,Di-Ba [Fleet 133 ml RECTAL DAILY PRN 10/28/22 12/14/22 History Adult] bisacodyL [Dulcolax] 10 mg RECTAL DAILY PRN 10/28/22 12/14/22 History Dapagliflozin Propanediol [Farxiga] 10 mg PO DAILY #30 tab 11/06/22 12/14/22 Rx Furosemide [Lasix] 20 mg PO DAILY #30 tab 11/06/22 12/14/22 Rx Spironolactone [Aldactone] 25 mg PO DAILY #30 tab 11/06/22 12/14/22 Rx Amiodarone [Cordarone] 200 mg PO BID@0800,1700 12/14/22 12/14/22 History methylPREDNISolone Dose Pack See Taper PO DIRECTED 12/14/22 12/14/22 History [Medrol Dose Pack] Allergies Allergy/AdvReac Type Severity Reaction Status Date / Time memantine [From Namenda] AdvReac Nausea & Verified 12/14/22 16:29 Vomiting & Diarrhea Physical Exam Vitals: Vital Signs Temp Pulse Pulse Pulse Pulse Resp BP 12/19/22 08:27 76 12/19/22 08:13 76 12/19/22 07:45 97.4 F L 90 18 114/67 12/19/22 04:00 79 22 118/55 12/19/22 02:00 80 84 22 12/19/22 00:00 84 22 114/68 12/18/22 22:32 70 12/18/22 22:22 68 12/18/22 20:00 98.0 F 80 80 22 116/57 12/18/22 15:55 97.5 F L 65 16 92/52 12/18/22 14:15 12/18/22 12:00 97.1 F L 76 16 85/55 BP Pulse Ox 12/19/22 08:27 12/19/22 08:13 98 12/19/22 07:45 96 12/19/22 04:00 97 12/19/22 02:00 12/19/22 00:00 97 12/18/22 22:32 12/18/22 22:22 12/18/22 20:00 98 12/18/22 15:55 93 L 12/18/22 14:15 103/56 12/18/22 12:00 95 Intake and Output 12/18/22 12/19/22 12/19/22 22:59 06:59 14:59 Intake Total 540 Output Total 150 1400 600 Balance 390 -1400 -600 Intake: Oral 540 Output: Urine 1000 600 Stool 400 Urine/Stool Mix 150 Other: Voiding Method Indwelling Catheter Indwelling Catheter # Bowel Movements 1 Results CBC & Chem 7: 12/17/22 07:11 12/19/22 09:10 Labs: Abnormal Lab Results - Last 24 Hours (Table) 12/19/22 Range/Units 09:10 Sodium 136 L (137-145) mmol/L Calcium 7.8 L (8.4-10.2) mg/dL Microbiology - Last 24 Hours (Table) 12/15/22 05:50 Blood Culture - Preliminary Blood Assessment and Plan (1) Unstageable pressure ulcer of left heel Current Visit: Yes Status: Acute Code(s): L89.620 - PRESSURE ULCER OF LEFT HEEL, UNSTAGEABLE SNOMED Code(s): 40060097085219 (2) Pressure injury of right thigh, stage 2 Current Visit: Yes Status: Acute Code(s): L89.212 - PRESSURE ULCER OF RIGHT HIP, STAGE 2 SNOMED Code(s): 611600465 (3) Pressure injury of left foot, stage 2 Current Visit: Yes Status: Acute Code(s): L89.892 - PRESSURE ULCER OF OTHER SITE, STAGE 2 SNOMED Code(s): 629946906 (4) Stage II pressure ulcer of sacral region Current Visit: Yes Status: Acute Code(s): L89.152 - PRESSURE ULCER OF SACRAL REGION, STAGE 2 SNOMED Code(s): 53670232869149
[2022-12-19 10:45] LABS: Basophils % (A) 0 %; Eosinophils # (A) 0.2 k/uL (0-0.7); Eosinophils % (A) 2 %; HCT 31.2 % (39.0-53.0); HGB 9.5 gm/dL (13.0-17.5); Hypochromasia Slight; Lymphocytes # (A) 0.7 k/uL (1.0-4.8); Lymphocytes % (A) 6 %; MCH 26.9 pg (25.0-35.0); MCHC 30.5 g/dL (31.0-37.0); MCV 88.1 fL (80.0-100.0); Mean Platelet Volume 9.5; Monocytes # (A) 0.4 k/uL (0-1.0); Monocytes % (A) 3 %; Neutrophils # (A) 9.6 k/uL (1.3-7.7); Neutrophils % (A) 87 %; Platelet Count 277 k/uL (150-450); RBC 3.54 m/uL (4.30-5.90); RDW 15.5 % (11.5-15.5)
--- NOTE | 2022-12-19 11:48 | P.PN ---
Subjective Progress Note Date: 12/19/22 CHIEF COMPLAINT: Parastomal hernia with evisceration HISTORY OF PRESENT ILLNESS: Patient is postop day #5 status post exploratory laparotomy, repair of parastomal hernia, takedown of splenic flexure, partial colectomy and colostomy in right upper quadrant. Patient does complain of abdominal pain. Controlled with pain medications. Denies any nausea or vomiting. Patient having watery stools and air through ostomy. Denies any nausea or vomiting. Blood pressure improving. He is on IV Lasix for fluid overload. Afebrile. WBC staying about the same at 11.0 Hgb 9.5 platelets 275 creatinine 1.08 patient did receive a dose of lactulose yesterday Patient seen and examined with Dr. barr PHYSICAL EXAM: VITAL SIGNS: Reviewed. GENERAL: Well-developed in no acute distress. ABDOMEN: Soft. Nondistended. Incision site clean dry and intact. [place] drain noted on the left with serosanguineous drainage on dressing. Ostomy on the right stoma beefy red. Liquidy stool output present. Crepitus noted at the proximal portion of the ostomy site up to chest wall NEUROLOGIC: awake and alert ASSESSMENT: 1. Parastomal hernia with evisceration 2. History of Afib 3. History of cardiomyopathy EF 20% 4. Subcutaneous emphysema at the stoma site into the chest wall likely secondary to surgery and will absorb with time PLAN: -Advance diet to full liquids -continue pain management -continue antibiotics -Encouraged patient to use incentive spirometer -Encouraged patient to increase activity level -Patient to go to ECF at discharge -Continue DVT prophylaxis subcu heparin and GI prophylaxis Protonix Physician Route Rider Supervisor note has been reviewed by physician. Signing provider agrees with the documented findings, assessment, and plan of care. Objective - Vital Signs Vital signs: Vital Signs Temp 97.4 F L 12/19/22 07:45 Pulse 76 12/19/22 08:27 Resp 18 12/19/22 07:45 BP 114/67 12/19/22 07:45 Pulse Ox 98 12/19/22 08:13 FiO2 Intake & Output 12/18/22 12/19/22 12/19/22 18:59 06:59 18:59 Intake Total 480 540 Output Total 1500 1550 600 Balance -1020 -1010 -600 Intake: Oral 480 540 Output: Urine 1500 1000 600 Stool 400 Urine/Stool Mix 150 Other: Voiding Method Indwelling Catheter Indwelling Catheter # Bowel Movements 1 - Labs CBC & Chem 7: 12/19/22 09:10 12/19/22 09:10 Labs: Abnormal Lab Results - Last 24 Hours (Table) 12/19/22 12/19/22 Range/Units 09:10 09:10 WBC 11.0 H (3.8-10.6) k/uL RBC 3.54 L (4.30-5.90) m/uL Hgb 9.5 L (13.0-17.5) gm/dL Hct 31.2 L (39.0-53.0) % MCHC 30.5 L (31.0-37.0) g/dL Neutrophils # 9.6 H (1.3-7.7) k/uL Lymphocytes # 0.7 L (1.0-4.8) k/uL Sodium 136 L (137-145) mmol/L Calcium 7.8 L (8.4-10.2) mg/dL Microbiology - Last 24 Hours (Table) 12/15/22 05:50 Blood Culture - Preliminary Blood
--- NOTE | 2022-12-19 14:23 | P.PN ---
Subjective Progress Note Date: 12/18/22 Principal diagnosis: Leukocytosis Patient is a 87-year-old male with a past medical history significant for perforated rectum due to fecal impaction requiring sigmoid colectomy and diverting colostomy in September 2020 could not be reversed because of multiple comorbid condition patient presented to hospital to the hospital with evisceration of portion of the small bowel at the colostomy site , status post laparotomy and repair of parastomal hernia and resection of portion of bowel. On today's evaluation that is 12/18/2022, patient continues to be afebrile, the patient is breathing comfortably on 3 L nasal cannula oxygen, the patient denies chest pain has been complaining of some, but no sputum production, also some nausea and abdominal discomfort no output in the colostomy Objective - Vital Signs Vital signs: Vital Signs Temp 97.1 F L 12/18/22 12:00 Pulse 76 12/18/22 12:00 Resp 16 12/18/22 12:00 BP 85/55 12/18/22 12:00 Pulse Ox 95 12/18/22 12:00 FiO2 Intake & Output 12/17/22 12/18/22 12/18/22 18:59 06:59 18:59 Intake Total 540 480 Output Total 1100 500 300 Balance -1100 40 180 Weight 64.1 kg Intake: Oral 540 480 Output: Urine 1100 500 300 Other: Voiding Method Indwelling Catheter Indwelling Catheter Indwelling Catheter # Voids 1 - Exam GENERAL DESCRIPTION: An elderly male lying in bed in no distress RESPIRATORY SYSTEM: Unlabored breathing , decreased breath sounds at bases HEART: S1 S2 regular rate and rhythm , ABDOMEN: Soft , midline incision is intact no drainage no output in colostomy EXTREMITIES: No edema feet - Labs CBC & Chem 7: 12/19/22 09:10 12/19/22 09:10 Labs: Abnormal Lab Results - Last 24 Hours (Table) 12/18/22 Range/Units 08:33 Sodium 136 L (137-145) mmol/L BUN 21 H (9-20) mg/dL Glucose 106 H (74-99) mg/dL Calcium 8.2 L (8.4-10.2) mg/dL Microbiology - Last 24 Hours (Table) 12/15/22 05:50 Blood Culture - Preliminary Blood Assessment and Plan (1) Leukocytosis Current Visit: Yes Status: Acute Code(s): D72.829 - ELEVATED WHITE BLOOD CELL COUNT, UNSPECIFIED SNOMED Code(s): 196461705 (2) Evisceration of bowel Current Visit: Yes Status: Acute Code(s): QSB0448 - SNOMED Code(s): 75134937 Plan: 1patient presented to hospital with evisceration of the small bowel with a parastomal hernia in this patient who is status post laparotomy resection of the portion of ischemic bowel and takedown of the splenic flexure patient did have elevated white count however no documented perforation though ischemic bowel was slightly concerning and need to cover for the enteric gram-negative both aerobes and anaerobes 2-patient white count is down to 11,000 yesterday, no CBC has been done today, patient to to continue with Zosyn and continue supportive care Time with Patient: Less than 30
--- NOTE | 2022-12-19 14:24 | P.PN ---
Subjective Progress Note Date: 12/19/22 Principal diagnosis: Leukocytosis Patient is a 87-year-old male with a past medical history significant for perforated rectum due to fecal impaction requiring sigmoid colectomy and diverting colostomy in September 2020 could not be reversed because of multiple comorbid condition patient presented to hospital to the hospital with evisceration of portion of the small bowel at the colostomy site , status post laparotomy and repair of parastomal hernia and resection of portion of bowel. On today's evaluation that is 12/19/2022, patient denies any fever or any chills, the patient is breathing comfortably on 3 L nasal cannula oxygen, the patient denies chest pain has been complaining of some cough but no sputum production, patient abdominal pain is currently controlled denies any vomiting Objective - Vital Signs Vital signs: Vital Signs Temp 97.5 F L 12/19/22 12:34 Pulse 100 12/19/22 12:34 Resp 18 12/19/22 12:34 BP 95/60 12/19/22 12:34 Pulse Ox 95 12/19/22 12:34 FiO2 Intake & Output 12/18/22 12/19/22 12/19/22 18:59 06:59 18:59 Intake Total 480 540 115 Output Total 1500 1550 1200 Balance -1020 -1010 -1085 Weight 64.1 kg Intake: Oral 480 540 115 Output: Urine 1500 1000 1100 Uretheral ([place]) 500 Stool 400 100 Urine/Stool Mix 150 Other: Voiding Method Indwelling Catheter Indwelling Catheter Indwelling Catheter # Bowel Movements 1 - Exam GENERAL DESCRIPTION: An elderly male lying in bed in no distress RESPIRATORY SYSTEM: Unlabored breathing , decreased breath sounds at bases HEART: S1 S2 regular rate and rhythm , ABDOMEN: Soft , midline incision is intact EXTREMITIES: No edema feet - Labs CBC & Chem 7: 12/19/22 09:10 12/19/22 09:10 Labs: Abnormal Lab Results - Last 24 Hours (Table) 12/19/22 12/19/22 Range/Units 09:10 09:10 WBC 11.0 H (3.8-10.6) k/uL RBC 3.54 L (4.30-5.90) m/uL Hgb 9.5 L (13.0-17.5) gm/dL Hct 31.2 L (39.0-53.0) % MCHC 30.5 L (31.0-37.0) g/dL Neutrophils # 9.6 H (1.3-7.7) k/uL Lymphocytes # 0.7 L (1.0-4.8) k/uL Sodium 136 L (137-145) mmol/L Calcium 7.8 L (8.4-10.2) mg/dL Microbiology - Last 24 Hours (Table) 12/15/22 05:50 Blood Culture - Preliminary Blood Assessment and Plan (1) Leukocytosis Current Visit: Yes Status: Acute Code(s): D72.829 - ELEVATED WHITE BLOOD CELL COUNT, UNSPECIFIED SNOMED Code(s): 670178149 (2) Evisceration of bowel Current Visit: Yes Status: Acute Code(s): SJT5018 - SNOMED Code(s): 29466961 Plan: 1patient presented to hospital with evisceration of the small bowel with a parastomal hernia in this patient who is status post laparotomy resection of the portion of ischemic bowel and takedown of the splenic flexure patient did have elevated white count however no documented perforation though ischemic bowel was slightly concerning and need to cover for the enteric gram-negative both aerobes and anaerobes 2-patient white count is down to 11,000 this morning and was 11.5 2 days ago he is on Zosyn will consider short course of oral Augmentin on discharge Time with Patient: Less than 30
--- NOTE | 2022-12-19 15:11 | P.PN ---
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 Patient is postoperative day #5 87-year-old male patient, multiple no comorbidities, with a previous history of a perforated rectum due to fecal impaction was underwent an emergent sigmoid colectomy and diverting colostomy creation by general surgery in September 2020. The patient was in the hospital back in October 2022 because of swelling and prolapse of his ostomy site. He wanted to have his colostomy reversed. However due to pre-existing cardiac conditions and other comorbidities, this was not done. He was considered to be very high risk. Noted the patient is known to have chronic systolic heart failure, and is also known to have previous history of chronic atrial fibrillation, CVA, DVT and he has limited on anticoagulation with Eliquis. Other comorbid conditions include hypertension and hyperlipidemia and previous history of pulmonary embolism. He has issues also with BPH and protein calorie malnutrition. The patient as such is chronically debilitated. The patient presented himself to the emergency department today. Apparently was getting to the toilet and his hernia rupture then eviscerated approximately 3 feet of small bowel emergency at the colostomy site. For that reason, the patient came into the emergency department. He was hemodynamically stable. His labs showed a white cell count of 15 with a hemoglobin 11.8 and a platelet count of 398. BUN was 41 with a creatinine of 1.1 and a sodium level is 137. Based on that, the patient was taken to the operating room and the patient underwent repair of a parastomal hernia, taking down of the splenic flexure, partial colectomy and colostomy in the right upper quadrant. Estimated blood loss was 200 mL. The patient currently is having some bloody oozing into his colostomy bag. Surgical wound is dry clean and intact. Note that he was on anticoagulation with Eliquis preoperatively. His cognition profile has been essentially within normal limits. Chest x-ray in the OR showed pulmonary vessel congestion, possibly left-sided pleural effusion and the air in his abdomen occupying under the diaphragm. On today's evaluation of 12/15/2022, the patient is awake and alert and communicating. He underwent surgery yesterday and the patient is currently postop day #1. He did very well overnight and he is still hemodynamically stable. He remains in a chest fibrillation. No anticoagulants for now. Note that he was taken Ellis was on outpatient basis and this was essentially discontinued. Otherwise, we have not witnessed any bleeding. His surgery 1 is dry clean and intact. The patient has a viable colostomy that was constructed in the right upper quadrant. His hemoglobin is stable at 10.7. The white cell count is at 16 and the sodium is at 138 with a BUN of 38 and a creatinine of 1.1. He is doing well. He remains nothing by mouth for now. No issues with pain. He was provided incentive spirometer. On 12/17/2019, the patient is postop day #2. He was given some clear liquid diet. His for cough and poor ability to do pulmonary toileting. Does have some upper airway secretions. Using the incentive spirometer. Remains on IV Zosyn. Pain is under adequate control. Bowel sounds are hypoactive and there is no fun ctional status colostomy. Surgical site is dry clean and intact. No recent blood work from today. Blood work from yesterday was noted. The patient is seen today 12/17/2022 in follow-up on the selective care unit. Postoperative day #3 for a parastomal hernia with evisceration. He is currently awake and alert in no acute distress. He is quite frail and weak. He has a loose nonproductive cough. He is maintaining O2 saturations in the 90s on 3 L/m per nasal cannula. Currently afebrile. Ultrasound of the left chest reveals a 6.6 cm pocket. Blood cultures pending. White count 11.5. Hemoglobin 9.2. Platelets 282. Sodium 138. Potassium 4.3. Bicarb 28. BUN 26. Creatinine 1.15. He remains on antibiotics in the form of Zosyn. Heparin for DVT prophylaxis. Ostomy on the right with no stool noted. The patient is seen today 12/18/2022 in follow-up on the selective care unit. Postoperative day #4 for parastomal hernia with evisceration. He is currently resting fairly comfortable in bed. He is quite weak and unable to sit up on his own. No plans for thoracentesis at this point. There is noted subcutaneous emphysema of the right anterior side of his chest. Chest x-ray reveals bilateral infiltrate and pleural effusion suspicious for congestive heart failure superimposed on background COPD. New peripheral-based infiltrate in the right upper lobe. Interval reduction in the amount of free intraperitoneal air. He is maintaining O2 saturation in the mid 90s on 3 L/m per nasal cannula. He's been afebrile. Blood cultures pending. Sodium 136. Potassium 4.4. Bicar b 26. BUN 21. Creatinine 1.07. Glucose 106. He is currently in a -1 L balance. He's been initiated on Lasix 20 mg IV every 12 hours. Heparin for DVT prophylaxis. Remains on bronchodilators. Remains on antibiotics in the form of Zosyn. Reevaluated today on 12/19/2022, patient is now postoperative day #5, parastomal hernia with evisceration repair. Patient is sitting in a bedside chair, does not seem to be in any distress, he is actually feeling much better, comfortable, on 3 L nasal cannula and his O2 sats at 95%. Patient remains on Zosyn, and being considered to transition to Augmentin upon discharge by infectious disease. Placement back to [facility] is in progress. WBC count today is 11 hemoglobin is 9.5 a left lites are normal renal profile is normal. Bicarb is normal. I was planning thoracentesis on this patient, however patient seems to be improving with diuretics, no need for thoracentesis at this point. Objective - Vital Signs Vital signs: Vital Signs Temp 97.5 F L 12/19/22 12:34 Pulse 100 12/19/22 12:34 Resp 18 12/19/22 12:34 BP 95/60 12/19/22 12:34 Pulse Ox 95 12/19/22 12:34 FiO2 Intake & Output 12/18/22 12/19/22 12/19/22 18:59 06:59 18:59 Intake Total 480 540 115 Output Total 1500 1550 1350 Balance -1020 -1010 -1235 Weight 64.1 kg Intake: Oral 480 540 115 Output: Urine 1500 1000 1100 Uretheral (C[place]anza) 500 Stool 400 250 Urine/Stool Mix 150 Other: Voiding Method Indwelling Catheter Indwelling Catheter Indwelling Catheter # Bowel Movements 1 - Exam Physical Exam: Revealed 87-year-old white male, frail looking, chronically ill, not in distress, on 3 L nasal cannula Head: Atraumatic, normocephalic. HEENT:[Neck is supple.] [No neck masses.] [No thyromegaly.] [No JVD.] Chest: [Clear throughout, no crackles, no rhonchi, no wheezes.] Cardiac Exam: [Normal S1 and S2, no S3 gallop, no murmur.] Abdomen: Soft, nondistended. Incision site clean dry and well approximated. [place] drain noted in the left with serosanguineous drainage on dressing. Os jose miguel on the right with a beefy red stoma. No stool noted. Hypoactive bowel sounds, no guarding or rigidity. There is subcutaneous emphysema noted under the right anterior chest above the ostomy site. Extremities: [No clubbing, no edema, no cyanosis.] Neurological Exam: Patient has chronic right-sided weakness and contracture related to previous CVA - Labs CBC & Chem 7: 12/19/22 09:10 12/19/22 09:10 Labs: Abnormal Lab Results - Last 24 Hours (Table) 12/19/22 12/19/22 Range/Units 09:10 09:10 WBC 11.0 H (3.8-10.6) k/uL RBC 3.54 L (4.30-5.90) m/uL Hgb 9.5 L (13.0-17.5) gm/dL Hct 31.2 L (39.0-53.0) % MCHC 30.5 L (31.0-37.0) g/dL Neutrophils # 9.6 H (1.3-7.7) k/uL Lymphocytes # 0.7 L (1.0-4.8) k/uL Sodium 136 L (137-145) mmol/L Calcium 7.8 L (8.4-10.2) mg/dL Microbiology - Last 24 Hours (Table) 12/15/22 05:50 Blood Culture - Preliminary Blood Assessment and Plan Assessment: Impression: 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 Patient is postoperative day #5 History of perforated colon requiring colectomy and diverting colostomy with subsequent development of carolann stomal hernia Severe cardiomyopathy and LV dysfunction Chronic systolic congestive heart failure with pleural effusions left more so than right. Acute hypoxic respiratory failure secondary to above History of deep vein thromboses and pulmonary embolism maintained on anticoagulation therapy Chronic atrial fibrillation Benign essential hypertension History of previous CVA and right-sided weakness Recommendation: Continue antibiotics, continue transition to oral antibiotics upon discharge Continue diuretics no plans for thoracentesis Continue incentive spirometry Continue oxygen and titrate accordingly Will clear for discharge if cleared by other consultants. Could be seen on outpatient basis post discharge Time with Patient: Less than 30
[2022-12-19] MEDS: THIAMINE 100 MG TAB PO SCH (18:05)
[2022-12-19] MEDS: LACTATED RINGERS 1,000 ML IV SCH (18:09)
[2022-12-20] MEDS: PIPERACILLIN-TAZOBACTAM 3.375 GM in SODIUM CHLORIDE 0.9% 100 ML IVPB SCH ×4 (00:45→23:37)
[2022-12-20] MEDS: HEPARIN SODIUM,PORCINE/PF 5,000 UNIT/0.5 ML SYRINGE SQ SCH ×4 (00:46→23:37)
--- NOTE | 2022-12-20 05:47 | PN ---
PROGRESS NOTE DATE OF SERVICE: 12/19/2022 SUBJECTIVE: This is an 87-year-old gentleman who was admitted after surgery, had some shortness of breath. The patient also had extreme difficulties in clearing the mucus. Apparently, the most recent chest x-ray, which was done yesterday, which I reviewed personally showed some significant pleural effusion and atelectasis also. OBJECTIVE: VITAL SIGNS: Pulse is 100, blood pressure is 95/60, respirations 18. CHEST: A few scattered rhonchi and crackles. ABDOMEN: Soft, nontender. NERVOUS SYSTEM: Nonfocal. LABORATORY DATA: WBC 11, hemoglobin 9.5, sodium 136. ASSESSMENT: 1. Status post parastomal hernia repair and colostomy. 2. History of perforated colon secondary to chronic constipation previously. 3. Left pleural effusion. 4. Bilateral atelectasis. 5. History of congestive heart failure. 6. Chronic atrial fibrillation. 7. Hypertension. 8. Multiple medical issues. RECOMMENDATIONS: Recommend to continue current management and symptomatic treatment. I would recommend continue the bronchodilators and incentive spirometry. Continue the rest of medications. Monitor fluid/electrolyte balance closely. Repeat x-ray tomorrow. The patient is on broad-spectrum IV antibiotics. Multiple consultants following the patient closely. Prognosis extremely guarded because of multiple complex medical issues and further recommendations to follow. MMODL / IJN: [id number] /
[2022-12-20] MEDS: THIAMINE 100 MG TAB PO SCH ×2 (06:20→16:23)
[2022-12-20] MEDS: IPRATROPIUM-ALBUTEROL 3 ML NEB INHALATION SCH ×3 (08:19→20:37)
[2022-12-20] MEDS: TAMSULOSIN 0.4 MG CAP.ER.24H PO SCH ×2 (08:31→21:04)
[2022-12-20] MEDS: FUROSEMIDE 10 MG/ML 2 ML VIAL IV SCH ×2 (08:31→21:04)
[2022-12-20] MEDS: AMIODARONE 200 MG TAB PO SCH ×2 (08:31→16:23)
[2022-12-20] MEDS: HYDROcodone/APAP 5-325MG 1 EACH TAB PO PRN ×2 (08:31→21:02)
[2022-12-20] MEDS: FOLIC ACID 1 MG TAB PO SCH (08:31)
[2022-12-20] MEDS: MULTIVITAMINS, THERA 1 EACH TAB PO SCH (08:31)
[2022-12-20] MEDS: METOPROLOL SUCCINATE (ER) 25 MG TAB.ER.24H PO SCH (08:31)
[2022-12-20] MEDS: PANTOPRAZOLE 40 MG/10 ML VIAL IVP SCH ×2 (08:31→21:01)
[2022-12-20] MEDS ORDERED: SPIRONOLACTONE 25 MG TAB PO SCH (09:00)
--- NOTE | 2022-12-20 10:05 | XR ---
EXAMINATION TYPE: XR chest 1V portable DATE OF EXAM: 12/20/2022 Comparison: 12/18/2022 Clinical History: 87-year-old male shortness of breath, effusion Findings: Left heart margin obscured by adjacent pleural parenchymal opacity with ongoing moderate left effusio n. Some patchy densities in the right mid and lower lung shows slight improvement. Mild interstitial prominence persists. End-stage degenerative change right shoulder. Impression: Ongoing moderate left pleural effusion with adjacent atelectasis and/or consolidation. Some of the pa tchy infiltrates right mid and lower lung show some interval improvement. Possible ongoing mild pulmo nary vascular congestion.
--- NOTE | 2022-12-20 13:19 | P.PN ---
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 Patient is postoperative day #6 87-year-old male patient, multiple no comorbidities, with a previous history of a perforated rectum due to fecal impaction was underwent an emergent sigmoid colectomy and diverting colostomy creation by general surgery in September 2020. The patient was in the hospital back in October 2022 because of swelling and prolapse of his ostomy site. He wanted to have his colostomy reversed. However due to pre-existing cardiac conditions and other comorbidities, this was not done. He was considered to be very high risk. Noted the patient is known to have chronic systolic heart failure, and is also known to have previous history of chronic atrial fibrillation, CVA, DVT and he has limited on anticoagulation with Eliquis. Other comorbid conditions include hypertension and hyperlipidemia and previous history of pulmonary embolism. He has issues also with BPH and protein calorie malnutrition. The patient as such is chronically debilitated. The patient presented himself to the emergency department today. Apparently was getting to the toilet and his hernia rupture then eviscerated approximately 3 feet of small bowel emergency at the colostomy site. For that reason, the patient came into the emergency department. He was hemodynamically stable. His labs showed a white cell count of 15 with a hemoglobin 11.8 and a platelet count of 398. BUN was 41 with a creatinine of 1.1 and a sodium level is 137. Based on that, the patient was taken to the operating room and the patient underwent repair of a parastomal hernia, taking down of the splenic flexure, partial colectomy and colostomy in the right upper quadrant. Estimated blood loss was 200 mL. The patient currently is having some bloody oozing into his colostomy bag. Surgical wound is dry clean and intact. Note that he was on anticoagulation with Eliquis preoperatively. His cognition profile has been essentially within normal limits. Chest x-ray in the OR showed pulmonary vessel congestion, possibly left-sided pleural effusion and the air in his abdomen occupying under the diaphragm. On today's evaluation of 12/15/2022, the patient is awake and alert and communicating. He underwent surgery yesterday and the patient is currently postop day #1. He did very well overnight and he is still hemodynamically stable. He remains in a chest fibrillation. No anticoagulants for now. Note that he was taken Ellis was on outpatient basis and this was essentially discontinued. Otherwise, we have not witnessed any bleeding. His surgery 1 is dry clean and intact. The patient has a viable colostomy that was constructed in the right upper quadrant. His hemoglobin is stable at 10.7. The white cell count is at 16 and the sodium is at 138 with a BUN of 38 and a creatinine of 1.1. He is doing well. He remains nothing by mouth for now. No issues with pain. He was provided incentive spirometer. On 12/17/2019, the patient is postop day #2. He was given some clear liquid diet. His for cough and poor ability to do pulmonary toileting. Does have some upper airway secretions. Using the incentive spirometer. Remains on IV Zosyn. Pain is under adequate control. Bowel sounds are hypoactive and there is no fun ctional status colostomy. Surgical site is dry clean and intact. No recent blood work from today. Blood work from yesterday was noted. The patient is seen today 12/17/2022 in follow-up on the selective care unit. Postoperative day #3 for a parastomal hernia with evisceration. He is currently awake and alert in no acute distress. He is quite frail and weak. He has a loose nonproductive cough. He is maintaining O2 saturations in the 90s on 3 L/m per nasal cannula. Currently afebrile. Ultrasound of the left chest reveals a 6.6 cm pocket. Blood cultures pending. White count 11.5. Hemoglobin 9.2. Platelets 282. Sodium 138. Potassium 4.3. Bicarb 28. BUN 26. Creatinine 1.15. He remains on antibiotics in the form of Zosyn. Heparin for DVT prophylaxis. Ostomy on the right with no stool noted. The patient is seen today 12/18/2022 in follow-up on the selective care unit. Postoperative day #4 for parastomal hernia with evisceration. He is currently resting fairly comfortable in bed. He is quite weak and unable to sit up on his own. No plans for thoracentesis at this point. There is noted subcutaneous emphysema of the right anterior side of his chest. Chest x-ray reveals bilateral infiltrate and pleural effusion suspicious for congestive heart failure superimposed on background COPD. New peripheral-based infiltrate in the right upper lobe. Interval reduction in the amount of free intraperitoneal air. He is maintaining O2 saturation in the mid 90s on 3 L/m per nasal cannula. He's been afebrile. Blood cultures pending. Sodium 136. Potassium 4.4. Bicar b 26. BUN 21. Creatinine 1.07. Glucose 106. He is currently in a -1 L balance. He's been initiated on Lasix 20 mg IV every 12 hours. Heparin for DVT prophylaxis. Remains on bronchodilators. Remains on antibiotics in the form of Zosyn. Reevaluated today on 12/19/2022, patient is now postoperative day #5, parastomal hernia with evisceration repair. Patient is sitting in a bedside chair, does not seem to be in any distress, he is actually feeling much better, comfortable, on 3 L nasal cannula and his O2 sats at 95%. Patient remains on Zosyn, and being considered to transition to Augmentin upon discharge by infectious disease. Placement back to care home is in progress. WBC count today is 11 hemoglobin is 9.5 a left lites are normal renal profile is normal. Bicarb is normal. I was planning thoracentesis on this patient, however patient seems to be improving with diuretics, no need for thoracentesis at this point. Reevaluated today on 12/20/2022, patient is now postoperative day #6. Patient is doing fairly well, does not seem to be in any distress, he is on 3 L nasal can nula and O2 sats is 97% no labs were done today, the labs from yesterday were reviewed and they seem to be basically unremarkable. Objective - Vital Signs Vital signs: Vital Signs Temp 98.0 F 12/20/22 08:30 Pulse 77 12/20/22 13:14 Resp 18 12/20/22 13:14 BP 81/49 12/20/22 12:09 Pulse Ox 97 12/20/22 12:09 FiO2 Intake & Output 12/19/22 12/20/22 12/20/22 18:59 06:59 18:59 Intake Total 175 Output Total 1350 550 Balance -1175 -550 Weight 64.1 kg Intake: Oral 175 Output: Urine 1100 500 Straight 500 Uretheral ([place]) 500 Stool 250 50 Other: Voiding Method Indwelling Catheter Indwelling Catheter External Catheter # Voids 0 - Exam Physical Exam: Revealed 87-year-old white male, frail looking, chronically ill, not in distress, on 3 L nasal cannula Head: Atraumatic, normocephalic. HEENT:[Neck is supple.] [No neck masses.] [No thyromegaly.] [No JVD.] Chest: [Clear throughout, no crackles, no rhonchi, no wheezes.] Cardiac Exam: [Normal S1 and S2, no S3 gallop, no murmur.] Abdomen: Postsurgical, basically unremarkable.Soft. Nondistended. Incision site clean dry and intact. [place] drain noted on the left with serosanguineous drainage on dressing. Ostomy on the right stoma beefy red. Liquidy stool output present. 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 Acute hypoxic respiratory failure secondary to above History of deep vein thromboses and pulmonary embolism maintained on anticoagulation therapy Chronic atrial fibrillation Benign essential hypertension History of previous CVA and right-sided weakness Recommendation: Continue antibiotics, continue transition to oral antibiotics upon discharge, this to be addressed by infectious disease on the case. Continue diuretics Continue incentive spirometry Continue oxygen and titrate accordingly Will clear for discharge if cleared by other consultants. Could be seen on outpatient basis post discharge Time with Patient: Less than 30
--- NOTE | 2022-12-20 13:51 | P.PN ---
Subjective Progress Note Date: 12/20/22 CHIEF COMPLAINT: Parastomal hernia with evisceration HISTORY OF PRESENT ILLNESS: Patient is postop day #6 status post exploratory laparotomy, repair of parastomal hernia, takedown of splenic flexure, partial colectomy and colostomy in right upper quadrant. Patient reports his pain is controlled. Denies any nausea or vomiting. Ostomy is functioning. Afebrile. WBC is 11 Hgb 9.5 platelets 277 signs 136 potassium 4.1 creatinine 1.08. Patient on IV Lasix for pleural effusion. Followed by pulmonary service. Patient seen and examined with Dr. barr PHYSICAL EXAM: VITAL SIGNS: Reviewed. GENERAL: Well-developed in no acute distress. ABDOMEN: Soft. Nondistended. Incision site clean dry and intact. [place] drain noted on the left with serosanguineous drainage on dressing. Ostomy on the right stoma beefy red. Liquidy stool output present. Crepitus noted at the proximal portion of the ostomy site up to chest wall NEUROLOGIC: awake and alert ASSESSMENT: 1. Parastomal hernia with evisceration 2. History of Afib 3. History of cardiomyopathy EF 20% 4. Subcutaneous emphysema at the stoma site into the chest wall likely secondary to surgery and will absorb with time PLAN: -Start patient on lactulose daily for constipation -Continue full liquids -continue pain management -continue antibiotics -Encouraged patient to use incentive spirometer -Encouraged patient to increase activity level -Patient to go to [facility] at discharge -Continue DVT prophylaxis subcu heparin and GI prophylaxis Protonix Physician [employer]ch[employer] Maker note has been reviewed by physician. Signing provider agrees with the documented findings, assessment, and plan of care. Objective - Vital Signs Vital signs: Vital Signs Temp 98.0 F 12/20/22 08:30 Pulse 72 12/20/22 13:24 Resp 18 12/20/22 13:24 BP 81/49 12/20/22 12:09 Pulse Ox 97 12/20/22 12:09 FiO2 Intake & Output 12/19/22 12/20/22 12/20/22 18:59 06:59 18:59 Intake Total 175 Output Total 1350 550 Balance -1175 -550 Weight 64.1 kg Intake: Oral 175 Output: Urine 1100 500 Straight 500 Uretheral ([place]) 500 Stool 250 50 Other: Voiding Method Indwelling Catheter Indwelling Catheter External Catheter # Voids 0 - Labs CBC & Chem 7: 12/19/22 09:10 12/19/22 09:10 Labs: Microbiology - Last 24 Hours (Table) 12/15/22 05:50 Blood Culture - Preliminary Blood
--- NOTE | 2022-12-20 14:07 | P.PN ---
Subjective Progress Note Date: 12/20/22 Principal diagnosis: Leukocytosis Patient is a 87-year-old male with a past medical history significant for perforated rectum due to fecal impaction requiring sigmoid colectomy and diverting colostomy in September 2020 could not be reversed because of multiple comorbid condition patient presented to hospital to the hospital with evisceration of portion of the small bowel at the colostomy site , status post laparotomy and repair of parastomal hernia and resection of portion of bowel. On today's evaluation that is 12/20/2022, patient remains to be afebrile, the patient is breathing comfortably on 3 L nasal cannula oxygen, the patient denies chest pain patient did have some dry cough, patient abdominal pain is currently controlled denies any vomiting Objective - Vital Signs Vital signs: Vital Signs Temp 98.0 F 12/20/22 08:30 Pulse 77 12/20/22 13:14 Resp 18 12/20/22 13:14 BP 81/49 12/20/22 12:09 Pulse Ox 97 12/20/22 12:09 FiO2 Intake & Output 12/19/22 12/20/22 12/20/22 18:59 06:59 18:59 Intake Total 175 Output Total 1350 550 Balance -1175 -550 Weight 64.1 kg Intake: Oral 175 Output: Urine 1100 500 Straight 500 Uretheral (Carranza) 500 Stool 250 50 Other: Voiding Method Indwelling Catheter Indwelling Catheter External Catheter # Voids 0 - Exam GENERAL DESCRIPTION: An elderly male lying in bed in no distress RESPIRATORY SYSTEM: Unlabored breathing , decreased breath sounds at bases HEART: S1 S2 regular rate and rhythm , ABDOMEN: Soft , midline incision is intact , did have output in the colostomy bag EXTREMITIES: No edema feet - Labs CBC & Chem 7: 12/19/22 09:10 12/19/22 09:10 Labs: Microbiology - Last 24 Hours (Table) 12/15/22 05:50 Blood Culture - Preliminary Blood Assessment and Plan (1) Leukocytosis Current Visit: Yes Status: Acute Code(s): D72.829 - ELEVATED WHITE BLOOD CELL COUNT, UNSPECIFIED SNOMED Code(s): 215995817 (2) Evisceration of bowel Current Visit: Yes Status: Acute Code(s): LWH0001 - SNOMED Code(s): 22581020 Plan: 1patient presented to hospital with evisceration of the small bowel with a parastomal hernia in this patient who is status post laparotomy resection of the portion of ischemic bowel and takedown of the splenic flexure patient did have elevated white count however no documented perforation though ischemic bowel was slightly concerning and need to cover for the enteric gram-negative both aerobes and anaerobes 2-patient white count is down to 11,000 patient to continue with Zosyn while inpatient and consider short course of oral Augmentin on discharge Time with Patient: Less than 30
[2022-12-20] MEDS: LACTULOSE 20 GM/30 ML CUP PO SCH (16:23)
[2022-12-20] MEDS: LACTATED RINGERS 1,000 ML IV SCH (18:54)
[2022-12-21] MEDS: HYDROmorphone 1 MG/ML 1 ML SYRINGE IVP PRN (03:29)
[2022-12-21] MEDS: IPRATROPIUM-ALBUTEROL 3 ML NEB INHALATION SCH ×3 (07:32→20:59)
--- NOTE | 2022-12-21 08:40 | PN ---
PROGRESS NOTE DATE OF SERVICE: 12/10/2022 SUBJECTIVE: This is an 87-year-old gentleman who is admitted with post parastomal hernia repair, multiple medication pleural effusion, hypotension, weakness. No chest pain. No palpitations. The patient also has history of atrial fibrillation. PAST MEDICAL HISTORY: Reviewed. REVIEW OF SYSTEMS: A 14-point review of systems is negative as mentioned earlier. CURRENT MEDICATIONS: Reviewed include Lopressor 25 mg daily. Dose and rest of medications noted. PHYSICAL EXAMINATION: VITAL SIGNS: Pulse 74, blood pressure 81/49, respirations 18. CHEST: A few scattered rhonchi and crackles. ABDOMEN: Soft. NERVOUS SYSTEM: No focal deficits. LABORATORY DATA: WBC 11, hemoglobin 9.5. The rest of the labs are noted. ASSESSMENT: 1. Status post parastomal hernia repair and colostomy. 2. History of perforated colon secondary to chronic constipation previously. 3. History of atrial fibrillation. 4. Left pleural effusion. 5. Bilateral atelectasis. 6. History of congestive heart failure. 7. Hypertension. 8. Multiple medical issues. RECOMMENDATIONS: Recommend to hold the aldactone Lopressor 12.5 daily. Continue with IV diuretics and hold the diuretics if the patient is symptomatically hypotensive. Otherwise, repeat chest x-ray which I reviewed personally showed persistent pleural effusion. I would recommend evaluation by Pulmonary for possible thoracocentesis. Guarded prognosis. Further recommendations to follow. MMISMAL / LISAN: [id number] / MTDD
[2022-12-21] MEDS: HYDROcodone/APAP 5-325MG 1 EACH TAB PO PRN (08:55)
[2022-12-21] MEDS: METOPROLOL SUCCINATE (ER) 25 MG TAB.ER.24H PO SCH (08:59)
[2022-12-21] MEDS: LACTULOSE 20 GM/30 ML CUP PO SCH (08:59)
[2022-12-21] MEDS: MULTIVITAMINS, THERA 1 EACH TAB PO SCH (08:59)
[2022-12-21] MEDS: THIAMINE 100 MG TAB PO SCH ×2 (08:59→15:46)
[2022-12-21] MEDS: FUROSEMIDE 10 MG/ML 2 ML VIAL IV SCH ×2 (08:59→19:59)
[2022-12-21] MEDS: PANTOPRAZOLE 40 MG/10 ML VIAL IVP SCH ×2 (08:59→19:59)
[2022-12-21] MEDS: PIPERACILLIN-TAZOBACTAM 3.375 GM in SODIUM CHLORIDE 0.9% 100 ML IVPB SCH ×3 (09:00→23:44)
[2022-12-21] MEDS: AMIODARONE 200 MG TAB PO SCH ×2 (09:00→15:46)
[2022-12-21] MEDS: FOLIC ACID 1 MG TAB PO SCH (09:00)
[2022-12-21] MEDS: HEPARIN SODIUM,PORCINE/PF 5,000 UNIT/0.5 ML SYRINGE SQ SCH ×3 (09:00→23:44)
[2022-12-21 10:29] LABS: HGB 9.4 gm/dL (13.0-17.5); Hypochromasia Moderate; MCH 27.8 pg (25.0-35.0); MCHC 31.3 g/dL (31.0-37.0); MCV 88.8 fL (80.0-100.0); Mean Platelet Volume 8.2; Platelet Count 293 k/uL (150-450); RBC 3.38 m/uL (4.30-5.90); RDW 15.6 % (11.5-15.5); WBC 10.9 k/uL (3.8-10.6)
[2022-12-21 11:04] LABS: HCT 29.8 % (39.0-53.0); HGB 9.5 gm/dL (13.0-17.5); Hypochromasia Slight; MCH 28.2 pg (25.0-35.0); MCHC 31.9 g/dL (31.0-37.0); MCV 88.2 fL (80.0-100.0); Mean Platelet Volume 8.3; Platelet Count 288 k/uL (150-450); RBC 3.38 m/uL (4.30-5.90); RDW 15.7 % (11.5-15.5); WBC 10.6 k/uL (3.8-10.6)
--- NOTE | 2022-12-21 13:12 | P.PN ---
Subjective Progress Note Date: 12/21/22 Principal diagnosis: 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 Patient is postoperative day #7 87-year-old male patient, multiple no comorbidities, with a previous history of a perforated rectum due to fecal impaction was underwent an emergent sigmoid colectomy and diverting colostomy creation by general surgery in September 2020. The patient was in the hospital back in October 2022 because of swelling and prolapse of his ostomy site. He wanted to have his colostomy reversed. However due to pre-existing cardiac conditions and other comorbidities, this was not done. He was considered to be very high risk. Noted the patient is known to have chronic systolic heart failure, and is also known to have previous history of chronic atrial fibrillation, CVA, DVT and he has limited on anticoagulation with Eliquis. Other comorbid conditions include hypertension and hyperlipidemia and previous history of pulmonary embolism. He has issues also with BPH and protein calorie malnutrition. The patient as such is chronically debilitated. The patient presented himself to the emergency department today. Apparently was getting to the toilet and his hernia rupture then eviscerated approximately 3 feet of small bowel emergency at the colostomy site. For that reason, the patient came into the emergency department. He was hemodynamically stable. His labs showed a white cell count of 15 with a hemoglobin 11.8 and a platelet count of 398. BUN was 41 with a creatinine of 1.1 and a sodium level is 137. Based on that, the patient was taken to the operating room and the patient underwent repair of a parastomal hernia, taking down of the splenic flexure, partial colectomy and colostomy in the right upper quadrant. Estimated blood loss was 200 mL. The patient currently is having some bloody oozing into his colostomy bag. Surgical wound is dry clean and intact. Note that he was on anticoagulation with Eliquis preoperatively. His cognition profile has been essentially within normal limits. Chest x-ray in the OR showed pulmonary vessel congestion, possibly left-sided pleural effusion and the air in his abdomen occupying under the diaphragm. On today's evaluation of 12/15/2022, the patient is awake and alert and communicating. He underwent surgery yesterday and the patient is currently postop day #1. He did very well overnight and he is still hemodynamically stable. He remains in a chest fibrillation. No anticoagulants for now. Note that he was taken Ellis was on outpatient basis and this was essentially discontinued. Otherwise, we have not witnessed any bleeding. His surgery 1 is dry clean and intact. The patient has a viable colostomy that was constructed in the right upper quadrant. His hemoglobin is stable at 10.7. The white cell count is at 16 and the sodium is at 138 with a BUN of 38 and a creatinine of 1.1. He is doing well. He remains nothing by mouth for now. No issues with pain. He was provided incentive spirometer. On 12/17/2019, the patient is postop day #2. He was given some clear liquid diet. His for cough and poor ability to do pulmonary toileting. Does have some upper airway secretions. Using the incentive spirometer. Remains on IV Zosyn. Pain is under adequate control. Bowel sounds are hypoactive and there is no fun ctional status colostomy. Surgical site is dry clean and intact. No recent blood work from today. Blood work from yesterday was noted. The patient is seen today 12/17/2022 in follow-up on the selective care unit. Postoperative day #3 for a parastomal hernia with evisceration. He is currently awake and alert in no acute distress. He is quite frail and weak. He has a loose nonproductive cough. He is maintaining O2 saturations in the 90s on 3 L/m per nasal cannula. Currently afebrile. Ultrasound of the left chest reveals a 6.6 cm pocket. Blood cultures pending. White count 11.5. Hemoglobin 9.2. Platelets 282. Sodium 138. Potassium 4.3. Bicarb 28. BUN 26. Creatinine 1.15. He remains on antibiotics in the form of Zosyn. Heparin for DVT prophylaxis. Ostomy on the right with no stool noted. The patient is seen today 12/18/2022 in follow-up on the selective care unit. Postoperative day #4 for parastomal hernia with evisceration. He is currently resting fairly comfortable in bed. He is quite weak and unable to sit up on his own. No plans for thoracentesis at this point. There is noted subcutaneous emphysema of the right anterior side of his chest. Chest x-ray reveals bilateral infiltrate and pleural effusion suspicious for congestive heart failure superimposed on background COPD. New peripheral-based infiltrate in the right upper lobe. Interval reduction in the amount of free intraperitoneal air. He is maintaining O2 saturation in the mid 90s on 3 L/m per nasal cannula. He's been afebrile. Blood cultures pending. Sodium 136. Potassium 4.4. Bicar b 26. BUN 21. Creatinine 1.07. Glucose 106. He is currently in a -1 L balance. He's been initiated on Lasix 20 mg IV every 12 hours. Heparin for DVT prophylaxis. Remains on bronchodilators. Remains on antibiotics in the form of Zosyn. Reevaluated today on 12/19/2022, patient is now postoperative day #5, parastomal hernia with evisceration repair. Patient is sitting in a bedside chair, does not seem to be in any distress, he is actually feeling much better, comfortable, on 3 L nasal cannula and his O2 sats at 95%. Patient remains on Zosyn, and being considered to transition to Augmentin upon discharge by infectious disease. Placement back to halfway is in progress. WBC count today is 11 hemoglobin is 9.5 a left lites are normal renal profile is normal. Bicarb is normal. I was planning thoracentesis on this patient, however patient seems to be improving with diuretics, no need for thoracentesis at this point. Reevaluated today on 12/20/2022, patient is now postoperative day #6. Patient is doing fairly well, does not seem to be in any distress, he is on 3 L nasal can nula and O2 sats is 97% no labs were done today, the labs from yesterday were reviewed and they seem to be basically unremarkable. Reevaluated today on 12/21/2022, patient is now postoperative day #7, continues to do well, no major issues he is on room air at 94% saturation. Chest x-ray showed a small left-sided pleural effusion and atelectasis not large enough to consider thoracentesis, patient is responding well to diuretics. WBC count is 12.2 hemoglobin is 7.7. Basic metabolic profile is normal, BUN is 21 creatinine 2.02, I will cut down on diuretics since his renal functioning is slightly worse Objective - Vital Signs Vital signs: Vital Signs Temp 97.9 F 12/21/22 08:58 Pulse 83 12/21/22 11:48 Resp 16 12/21/22 11:48 BP 91/45 12/21/22 11:48 Pulse Ox 94 L 12/21/22 11:48 FiO2 Intake & Output 12/20/22 12/21/22 12/21/22 18:59 06:59 18:59 Intake Total 480 440 Output Total 700 2100 300 Balance -220 -1660 -300 Weight 79.5 kg 79.5 kg Intake: IV 340 Lactated Ringers 1,000 ml 240 @ 40 mls/hr IV .Q24H [facility] Rx#:[id number] Piperacillin-Tazobactam 3 100 .375 gm In Sodium Chloride 0.9% 100 ml @ 25 mls/hr IVPB Q8HR [facility] Rx# :[id number] Intake, IV Titration 100 Amount Piperacillin-Tazobactam 3 100 .375 gm In Sodium Chloride 0.9% 100 ml @ 25 mls/hr IVPB Q8HR [facility] Rx# :[id number] Oral 480 Output: Urine 700 2100 Straight 700 Uretheral (Carranza) 900 Stool 0 300 Other: Voiding Method External Catheter External Catheter - Exam Physical Exam: Revealed 87-year-old white male, frail looking, chronically ill, not in distress, on room air with O2 saturation 94% Head: Atraumatic, normocephalic. HEENT:[Neck is supple.] [No neck masses.] [No thyromegaly.] [No JVD.] Chest: [Fine crackles at the bases especially at the left base no rhonchi no wheezes Cardiac Exam: [Normal S1 and S2, no S3 gallop, no murmur.] Abdomen: Postsurgical, basically unremarkable.Soft. Nondistended. Incision site clean dry and intact. Carmel drain noted on the left with serosanguineous drainage on dressing. Ostomy on the right stoma beefy red. Liquidy stool output present. Extremities: [No clubbing, no edema, no cyanosis.] Neurological Exam: Patient has chronic right-sided weakness and contracture related to previous CVA - Labs CBC & Chem 7: 12/21/22 10:24 12/19/22 09:10 Labs: Abnormal Lab Results - Last 24 Hours (Table) 12/21/22 12/21/22 Range/Units 09:59 10:24 WBC 10.9 H (3.8-10.6) k/uL RBC 3.38 L 3.38 L (4.30-5.90) m/uL Hgb 9.4 L 9.5 L (13.0-17.5) gm/dL Hct 30.0 L 29.8 L (39.0-53.0) % RDW 15.6 H 15.7 H (11.5-15.5) % Microbiology - Last 24 Hours (Table) 12/15/22 05:50 Blood Culture - Final Blood Assessment and Plan Assessment: Impression: 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 Acute hypoxic respiratory failure secondary to above History of deep vein thromboses and pulmonary embolism maintained on anticoagulation therapy Chronic atrial fibrillation Benign essential hypertension History of previous CVA and right-sided weakness Recommendation: Continue antibiotics, continue transition to oral antibiotics upon discharge, this to be addressed by infectious disease on the case. Continue diuretics however cut down the dose of diuretics because of slight worsening in renal status. Continue incentive spirometry Continue oxygen and titrate accordingly Will clear for discharge if cleared by other consultants. Could be seen on outpatient basis post discharge Time with Patient: Less than 30
--- NOTE | 2022-12-21 13:57 | P.PN ---
Subjective Progress Note Date: 12/21/22 CHIEF COMPLAINT: Parastomal hernia with evisceration HISTORY OF PRESENT ILLNESS: Patient is postop day #7 status post exploratory laparotomy, repair of parastomal hernia, takedown of splenic flexure, partial colectomy and colostomy in right upper quadrant. Patient reports his pain is controlled. Denies any nausea or vomiting. Ostomy is functioning. Last night patient started having bleeding from his stoma. Hemoglobin stable at 9.5. WBC is 10.6. Patient is afebrile. Afebrile. Patient remains on IV Lasix for pleural effusion. Pulmonary service has cleared patient for discharge. Infectious disease recommends Augmentin at discharge. Patient seen and examined with Dr. barr PHYSICAL EXAM: VITAL SIGNS: Reviewed. GENERAL: Well-developed in no acute distress. ABDOMEN: Soft. Nondistended. Incision site clean dry and intact. Flash drain intact. No drainage. Ostomy on the right stoma beefy red. Liquidy brown stool output present. Tiny bleeding noted at the top of the stoma. No blood noted in the colostomy bag. Crepitus noted at the proximal portion of the ostomy site up to chest wall decreasing NEUROLOGIC: awake and alert ASSESSMENT: 1. Parastomal hernia with evisceration 2. History of Afib 3. History of cardiomyopathy EF 20% 4. Subcutaneous emphysema at the stoma site into the chest wall likely secondary to surgery and will absorb with time PLAN: -Continue to monitor for bleeding from stoma -Continue lactulose daily for constipation -Continue full liquids -continue pain management -continue antibiotics -Encouraged patient to use incentive spirometer -Encouraged patient to increase activity level -Patient to go to [facility] at discharge -Continue DVT prophylaxis subcu heparin and GI prophylaxis Protonix Physician Production Control Clerk note has been reviewed by physician. Signing provider agrees with the documented findings, assessment, and plan of care. Objective - Vital Signs Vital signs: Vital Signs Temp 97.9 F 12/21/22 08:58 Pulse 83 12/21/22 11:48 Resp 16 12/21/22 11:48 BP 91/45 12/21/22 11:48 Pulse Ox 94 L 12/21/22 11:48 FiO2 Intake & Output 12/20/22 12/21/22 12/21/22 18:59 06:59 18:59 Intake Total 480 440 Output Total 700 2100 Balance -220 -1660 Weight 79.5 kg Intake: IV 340 Lactated Ringers 1,000 ml 240 @ 40 mls/hr IV .Q24H [facility] Rx#:[id number] Piperacillin-Tazobactam 3 100 .375 gm In Sodium Chloride 0.9% 100 ml @ 25 mls/hr IVPB Q8HR [facility] Rx# :[id number] Intake, IV Titration 100 Amount Piperacillin-Tazobactam 3 100 .375 gm In Sodium Chloride 0.9% 100 ml @ 25 mls/hr IVPB Q8HR [facility] Rx# :[id number] Oral 480 Output: Urine 700 2100 Straight 700 Uretheral (Carranza) 900 Stool 0 Other: Voiding Method External Catheter External Catheter - Labs CBC & Chem 7: 12/21/22 10:24 12/19/22 09:10 Labs: Abnormal Lab Results - Last 24 Hours (Table) 12/21/22 12/21/22 Range/Units 09:59 10:24 WBC 10.9 H (3.8-10.6) k/uL RBC 3.38 L 3.38 L (4.30-5.90) m/uL Hgb 9.4 L 9.5 L (13.0-17.5) gm/dL Hct 30.0 L 29.8 L (39.0-53.0) % RDW 15.6 H 15.7 H (11.5-15.5) % Microbiology - Last 24 Hours (Table) 12/15/22 05:50 Blood Culture - Final Blood
[2022-12-21] MEDS: LACTATED RINGERS 1,000 ML IV SCH (15:49)
[2022-12-21] MEDS: TAMSULOSIN 0.4 MG CAP.ER.24H PO SCH (19:59)
[2022-12-22] MEDS: THIAMINE 100 MG TAB PO SCH ×2 (06:21→17:58)
[2022-12-22 07:16] LABS: Basophils % (A) 0 %; Eosinophils # (A) 0.1 k/uL (0-0.7); Eosinophils % (A) 1 %; HCT 30.9 % (39.0-53.0); HGB 9.5 gm/dL (13.0-17.5); Hypochromasia Slight; Lymphocytes # (A) 0.7 k/uL (1.0-4.8); Lymphocytes % (A) 7 %; MCH 27.2 pg (25.0-35.0); MCHC 30.7 g/dL (31.0-37.0); MCV 88.5 fL (80.0-100.0); Mean Platelet Volume 8.8; Monocytes # (A) 0.3 k/uL (0-1.0); Monocytes % (A) 4 %; Neutrophils # (A) 8.5 k/uL (1.3-7.7); Neutrophils % (A) 87 %; Platelet Count 284 k/uL (150-450); RBC 3.49 m/uL (4.30-5.90); RDW 15.8 % (11.5-15.5); WBC 9.8 k/uL (3.8-10.6)
[2022-12-22 07:40] LABS: Calcium 7.8 mg/dL (8.4-10.2); Potassium 3.3 mmol/L (3.5-5.1)
--- NOTE | 2022-12-22 07:58 | PN ---
PROGRESS NOTE DATE OF SERVICE: 12/11/2022 SUBJECTIVE: This is an 87-year-old gentleman who was admitted after abdominal surgery. He is extremely weak. The patient had left pleural effusion also. The patient is receiving diuretics per Dr. Bradford's recommendation. No chest pain, no palpitations, no fever. OBJECTIVE: VITAL SIGNS: Pulse is 83, blood pressure 91/42, respirations 16. CHEST: Few scattered rhonchi. ABDOMEN: Soft. NERVOUS SYSTEM: No focal deficits. LABORATORY DATA: Reviewed. Sodium is 130. ASSESSMENT: 1. Status post parastomal hernia repair and colostomy. 2. History of perforated colon secondary to chronic constipation previously. 3. History of atrial fibrillation. 4. Left pleural effusion. 5. Gait dysfunction. 6. Bilateral atelectasis. 7. History of CHF. 8. Hypertension. 9. Multiple medical issues. RECOMMENDATIONS AND DISCUSSION: Recommended to continue current management, continue symptomatic treatment. Continue diuretics. Repeat labs. PT OT evaluation, possible ECF rehab, otherwise rest of the recommendations per surgery. Further recommendations to follow. MMODL / IJN: [id number] /
[2022-12-22] MEDS: PANTOPRAZOLE 40 MG/10 ML VIAL IVP SCH ×2 (08:18→20:18)
[2022-12-22] MEDS: HEPARIN SODIUM,PORCINE/PF 5,000 UNIT/0.5 ML SYRINGE SQ SCH ×3 (08:19→23:31)
[2022-12-22] MEDS: FUROSEMIDE 10 MG/ML 2 ML VIAL IV SCH (08:19)
[2022-12-22] MEDS: METOPROLOL SUCCINATE (ER) 25 MG TAB.ER.24H PO SCH (08:24)
[2022-12-22] MEDS: AMIODARONE 200 MG TAB PO SCH ×2 (08:24→17:59)
[2022-12-22] MEDS: PIPERACILLIN-TAZOBACTAM 3.375 GM in SODIUM CHLORIDE 0.9% 100 ML IVPB SCH ×3 (08:24→23:31)
[2022-12-22] MEDS: LACTULOSE 20 GM/30 ML CUP PO SCH (08:24)
[2022-12-22] MEDS: IPRATROPIUM-ALBUTEROL 3 ML NEB INHALATION SCH ×3 (09:08→21:17)
--- NOTE | 2022-12-22 09:23 | P.PN ---
Progress Note - Text Progress Note Date: 12/22/22 Patient is still. He has minimal complaints of pain. On exam vital signs are stable. Abdomen soft. Colostomy is functioning. Status post repair of parastomal hernia with evisceration. Patient will continue receive supportive care.
[2022-12-22] MEDS: FOLIC ACID 1 MG TAB PO SCH (12:32)
[2022-12-22] MEDS: MULTIVITAMINS, THERA 1 EACH TAB PO SCH (12:32)
--- NOTE | 2022-12-22 13:07 | P.PN ---
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 Patient is postoperative day #8 87-year-old male patient, multiple no comorbidities, with a previous history of a perforated rectum due to fecal impaction was underwent an emergent sigmoid colectomy and diverting colostomy creation by general surgery in September 2020. The patient was in the hospital back in October 2022 because of swelling and prolapse of his ostomy site. He wanted to have his colostomy reversed. However due to pre-existing cardiac conditions and other comorbidities, this was not done. He was considered to be very high risk. Noted the patient is known to have chronic systolic heart failure, and is also known to have previous history of chronic atrial fibrillation, CVA, DVT and he has limited on anticoagulation with Eliquis. Other comorbid conditions include hypertension and hyperlipidemia and previous history of pulmonary embolism. He has issues also with BPH and protein calorie malnutrition. The patient as such is chronically debilitated. The patient presented himself to the emergency department today. Apparently was getting to the toilet and his hernia rupture then eviscerated approximately 3 feet of small bowel emergency at the colostomy site. For that reason, the patient came into the emergency department. He was hemodynamically stable. His labs showed a white cell count of 15 with a hemoglobin 11.8 and a platelet count of 398. BUN was 41 with a creatinine of 1.1 and a sodium level is 137. Based on that, the patient was taken to the operating room and the patient underwent repair of a parastomal hernia, taking down of the splenic flexure, partial colectomy and colostomy in the right upper quadrant. Estimated blood loss was 200 mL. The patient currently is having some bloody oozing into his colostomy bag. Surgical wound is dry clean and intact. Note that he was on anticoagulation with Eliquis preoperatively. His cognition profile has been essentially within normal limits. Chest x-ray in the OR showed pulmonary vessel congestion, possibly left-sided pleural effusion and the air in his abdomen occupying under the diaphragm. On today's evaluation of 12/15/2022, the patient is awake and alert and communicating. He underwent surgery yesterday and the patient is currently postop day #1. He did very well overnight and he is still hemodynamically stable. He remains in a chest fibrillation. No anticoagulants for now. Note that he was taken Ellis was on outpatient basis and this was essentially discontinued. Otherwise, we have not witnessed any bleeding. His surgery 1 is dry clean and intact. The patient has a viable colostomy that was constructed in the right upper quadrant. His hemoglobin is stable at 10.7. The white cell count is at 16 and the sodium is at 138 with a BUN of 38 and a creatinine of 1.1. He is doing well. He remains nothing by mouth for now. No issues with pain. He was provided incentive spirometer. On 12/17/2019, the patient is postop day #2. He was given some clear liquid diet. His for cough and poor ability to do pulmonary toileting. Does have some upper airway secretions. Using the incentive spirometer. Remains on IV Zosyn. Pain is under adequate control. Bowel sounds are hypoactive and there is no fun ctional status colostomy. Surgical site is dry clean and intact. No recent blood work from today. Blood work from yesterday was noted. The patient is seen today 12/17/2022 in follow-up on the selective care unit. Postoperative day #3 for a parastomal hernia with evisceration. He is currently awake and alert in no acute distress. He is quite frail and weak. He has a loose nonproductive cough. He is maintaining O2 saturations in the 90s on 3 L/m per nasal cannula. Currently afebrile. Ultrasound of the left chest reveals a 6.6 cm pocket. Blood cultures pending. White count 11.5. Hemoglobin 9.2. Platelets 282. Sodium 138. Potassium 4.3. Bicarb 28. BUN 26. Creatinine 1.15. He remains on antibiotics in the form of Zosyn. Heparin for DVT prophylaxis. Ostomy on the right with no stool noted. The patient is seen today 12/18/2022 in follow-up on the selective care unit. Postoperative day #4 for parastomal hernia with evisceration. He is currently resting fairly comfortable in bed. He is quite weak and unable to sit up on his own. No plans for thoracentesis at this point. There is noted subcutaneous emphysema of the right anterior side of his chest. Chest x-ray reveals bilateral infiltrate and pleural effusion suspicious for congestive heart failure superimposed on background COPD. New peripheral-based infiltrate in the right upper lobe. Interval reduction in the amount of free intraperitoneal air. He is maintaining O2 saturation in the mid 90s on 3 L/m per nasal cannula. He's been afebrile. Blood cultures pending. Sodium 136. Potassium 4.4. Bicar b 26. BUN 21. Creatinine 1.07. Glucose 106. He is currently in a -1 L balance. He's been initiated on Lasix 20 mg IV every 12 hours. Heparin for DVT prophylaxis. Remains on bronchodilators. Remains on antibiotics in the form of Zosyn. Reevaluated today on 12/19/2022, patient is now postoperative day #5, parastomal hernia with evisceration repair. Patient is sitting in a bedside chair, does not seem to be in any distress, he is actually feeling much better, comfortable, on 3 L nasal cannula and his O2 sats at 95%. Patient remains on Zosyn, and being considered to transition to Augmentin upon discharge by infectious disease. Placement back to senior care is in progress. WBC count today is 11 hemoglobin is 9.5 a left lites are normal renal profile is normal. Bicarb is normal. I was planning thoracentesis on this patient, however patient seems to be improving with diuretics, no need for thoracentesis at this point. Reevaluated today on 12/20/2022, patient is now postoperative day #6. Patient is doing fairly well, does not seem to be in any distress, he is on 3 L nasal can nula and O2 sats is 97% no labs were done today, the labs from yesterday were reviewed and they seem to be basically unremarkable. Reevaluated today on 12/21/2022, patient is now postoperative day #7, continues to do well, no major issues he is on room air at 94% saturation. Chest x-ray showed a small left-sided pleural effusion and atelectasis not large enough to consider thoracentesis, patient is responding well to diuretics. WBC count is 12.2 hemoglobin is 7.7. Basic metabolic profile is normal, BUN is 21 creatinine 2.02, I will cut down on diuretics since his renal functioning is slightly worse Reevaluated today on 12/22/2022, he is now postoperative day #8, patient is basically awaiting placement. Pulmonary-diallo no major issues, patient seems to be very comfortable, he is on 3 L nasal cannula and his O2 sats is 100%. Blood pressure is stable 97/54 with a mean of 68, labs are unremarkable including WBC of 9.8 hemoglobin is 9.5. And his basic metabolic profile is basically unr emarkable. Remains on diuretics, creatinine slightly up to 1.15. Will change his Lasix to 20 mg by mouth twice a day Objective - Vital Signs Vital signs: Vital Signs Temp 97.5 F L 12/22/22 12:00 Pulse 62 12/22/22 12:00 Resp 18 12/22/22 12:00 BP 97/54 12/22/22 12:00 Pulse Ox 100 12/22/22 12:00 FiO2 Intake & Output 12/21/22 12/22/22 12/22/22 18:59 06:59 18:59 Intake Total 538 Output Total 300 875 Balance -300 -875 538 Weight 79.5 kg 71 kg Intake: IV 420 Lactated Ringers 1,000 ml 320 @ 40 mls/hr IV .Q24H [facility] Rx#:[id number] Piperacillin-Tazobactam 3 100 .375 gm In Sodium Chloride 0.9% 100 ml @ 25 mls/hr IVPB Q8HR [facility] Rx# :[id number] Oral 118 Output: Urine 875 Stool 300 Other: Voiding Method External Catheter External Catheter External Catheter - Exam Physical Exam: Revealed 87-year-old white male, frail looking, chronically ill, not in distress, on 3 L nasal cannula with O2 saturation of 100% Head: Atraumatic, normocephalic. HEENT:[Neck is supple.] [No neck masses.] [No thyromegaly.] [No JVD.] Chest: [Fine crackles at the bases especially at the left base no rhonchi no wheezes Cardiac Exam: [Normal S1 and S2, no S3 gallop, no murmur.] Abdomen: Postsurgical, basically unremarkable.Soft. Nondistended. Incision site clean dry and intact. Flash drain noted on the left with serosanguineous drainage on dressing. Ostomy on the right stoma beefy red. Liquidy stool output present. Extremities: [No clubbing, no edema, no cyanosis.] Neurological Exam: Patient has chronic right-sided weakness and contracture related to previous CVA - Labs CBC & Chem 7: 12/22/22 05:38 12/22/22 05:38 Labs: Abnormal Lab Results - Last 24 Hours (Table) 12/22/22 12/22/22 Range/Units 05:38 05:38 RBC 3.49 L (4.30-5.90) m/uL Hgb 9.5 L (13.0-17.5) gm/dL Hct 30.9 L (39.0-53.0) % MCHC 30.7 L (31.0-37.0) g/dL RDW 15.8 H (11.5-15.5) % Neutrophils # 8.5 H (1.3-7.7) k/uL Lymphocytes # 0.7 L (1.0-4.8) k/uL Potassium 3.3 L (3.5-5.1) mmol/L Carbon Dioxide 31 H (22-30) mmol/L Calcium 7.8 L (8.4-10.2) mg/dL Microbiology - Last 24 Hours (Table) 12/15/22 05:50 Blood Culture - Final Blood Assessment and Plan Assessment: Impression: 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 Acute hypoxic respiratory failure secondary to above History of deep vein thromboses and pulmonary embolism maintained on anticoagulation therapy Chronic atrial fibrillation Benign essential hypertension History of previous CVA and right-sided weakness Recommendation: Continue antibiotics, continue transition to oral antibiotics upon discharge, this to be addressed by infectious disease on the case. Continue diuretics however transition to oral Lasix 20 mg by mouth twice a day Continue incentive spirometry Continue oxygen and titrate accordingly Patient is awaiting placement Cleared from our perspective for discharge if cleared by other consultants Will follow as needed Time with Patient: Less than 30
--- NOTE | 2022-12-22 15:12 | P.PN ---
Subjective Progress Note Date: 12/21/22 Principal diagnosis: Leukocytosis Patient is a 87-year-old male with a past medical history significant for perforated rectum due to fecal impaction requiring sigmoid colectomy and diverting colostomy in September 2020 could not be reversed because of multiple comorbid condition patient presented to hospital to the hospital with evisceration of portion of the small bowel at the colostomy site , status post laparotomy and repair of parastomal hernia and resection of portion of bowel. On today's evaluation that is 12/21/2022, patient continues to be afebrile, the patient is breathing comfortably on 3 L nasal cannula oxygen, the patient denies chest pain patient did have mild cough but not bringing up any sputum, patient abdominal pain is currently controlled denies any vomiting Objective - Vital Signs Vital signs: Vital Signs Temp 97.5 F L 12/21/22 12:00 Pulse 62 12/21/22 12:00 Resp 18 12/21/22 12:00 BP 97/54 12/21/22 12:00 Pulse Ox 100 12/21/22 12:00 FiO2 Intake & Output 12/21/22 12:59 Intake Total Output Total 300 Balance -300 Weight 79.5 kg Intake: IV Lactated Ringers 1,000 ml @ 40 mls/hr IV .Q24H [facility] Rx#:[id number] Piperacillin-Tazobactam 3 .375 gm In Sodium Chloride 0.9% 100 ml @ 25 mls/hr IVPB Q8HR [facility] Rx# :[id number] Oral Output: Urine Stool 300 Other: Voiding Method External Catheter - Exam GENERAL DESCRIPTION: An elderly male lying in bed in no distress RESPIRATORY SYSTEM: Unlabored breathing , decreased breath sounds at bases HEART: S1 S2 regular rate and rhythm , ABDOMEN: Soft , midline incision is intact , did have output in the colostomy bag EXTREMITIES: No edema feet - Labs CBC & Chem 7: 12/22/22 05:38 12/22/22 05:38 Labs: Abnormal Lab Results - Last 24 Hours (Table) 12/22/22 12/22/22 Range/Units 05:38 05:38 RBC 3.49 L (4.30-5.90) m/uL Hgb 9.5 L (13.0-17.5) gm/dL Hct 30.9 L (39.0-53.0) % MCHC 30.7 L (31.0-37.0) g/dL RDW 15.8 H (11.5-15.5) % Neutrophils # 8.5 H (1.3-7.7) k/uL Lymphocytes # 0.7 L (1.0-4.8) k/uL Potassium 3.3 L (3.5-5.1) mmol/L Carbon Dioxide 31 H (22-30) mmol/L Calcium 7.8 L (8.4-10.2) mg/dL Assessment and Plan (1) Leukocytosis Current Visit: Yes Status: Acute Code(s): D72.829 - ELEVATED WHITE BLOOD CELL COUNT, UNSPECIFIED SNOMED Code(s): 916719574 (2) Evisceration of bowel Current Visit: Yes Status: Acute Code(s): JQX0227 - SNOMED Code(s): 99277041 Plan: 1patient presented to hospital with evisceration of the small bowel with a parastomal hernia in this patient who is status post laparotomy resection of the portion of ischemic bowel and takedown of the splenic flexure patient did have elevated white count however no documented perforation though ischemic bowel was slightly concerning and need to cover for the enteric gram-negative both aerobes and anaerobes 2-patient white count is down to 10.6 thousand today, patient to continue with Zosyn while inpatient and monitor clinical course closely Time with Patient: Less than 30
--- NOTE | 2022-12-22 15:13 | P.PN ---
Subjective Progress Note Date: 12/22/22 Principal diagnosis: Leukocytosis Patient is a 87-year-old male with a past medical history significant for perforated rectum due to fecal impaction requiring sigmoid colectomy and diverting colostomy in September 2020 could not be reversed because of multiple comorbid condition patient presented to hospital to the hospital with evisceration of portion of the small bowel at the colostomy site , status post laparotomy and repair of parastomal hernia and resection of portion of bowel. On today's evaluation that is 12/22/2022, patient remains to be afebrile, the patient is breathing comfortably on 3 L nasal cannula oxygen, the patient denies chest pain no worsening cough or sputum production, patient has been complaining of abdominal pain , did have nausea but no vomiting and did have output in his colostomy bag Objective - Vital Signs Vital signs: Vital Signs Temp 97.5 F L 12/22/22 12:00 Pulse 62 12/22/22 12:00 Resp 18 12/22/22 12:00 BP 97/54 12/22/22 12:00 Pulse Ox 100 12/22/22 12:00 FiO2 Intake & Output 12/21/22 12/22/22 12/22/22 18:59 06:59 18:59 Intake Total 538 Output Total 300 875 Balance -300 -875 538 Weight 79.5 kg 71 kg Intake: IV 420 Lactated Ringers 1,000 ml 320 @ 40 mls/hr IV .Q24H [facility] Rx#:[id number] Piperacillin-Tazobactam 3 100 .375 gm In Sodium Chloride 0.9% 100 ml @ 25 mls/hr IVPB Q8HR [facility] Rx# :[id number] Oral 118 Output: Urine 875 Stool 300 Other: Voiding Method External Catheter External Catheter Indwelling Catheter - Exam GENERAL DESCRIPTION: An elderly male lying in bed in no distress RESPIRATORY SYSTEM: Unlabored breathing , decreased breath sounds at bases HEART: S1 S2 regular rate and rhythm , ABDOMEN: Soft , midline incision is intact , did have output in the colostomy bag EXTREMITIES: No edema feet - Labs CBC & Chem 7: 12/22/22 05:38 12/22/22 05:38 Labs: Abnormal Lab Results - Last 24 Hours (Table) 12/22/22 12/22/22 Range/Units 05:38 05:38 RBC 3.49 L (4.30-5.90) m/uL Hgb 9.5 L (13.0-17.5) gm/dL Hct 30.9 L (39.0-53.0) % MCHC 30.7 L (31.0-37.0) g/dL RDW 15.8 H (11.5-15.5) % Neutrophils # 8.5 H (1.3-7.7) k/uL Lymphocytes # 0.7 L (1.0-4.8) k/uL Potassium 3.3 L (3.5-5.1) mmol/L Carbon Dioxide 31 H (22-30) mmol/L Calcium 7.8 L (8.4-10.2) mg/dL Assessment and Plan (1) Leukocytosis Current Visit: Yes Status: Acute Code(s): D72.829 - ELEVATED WHITE BLOOD CELL COUNT, UNSPECIFIED SNOMED Code(s): 217430033 (2) Evisceration of bowel Current Visit: Yes Status: Acute Code(s): [id number] - SNOMED Code(s): 83561984 Plan: 1patient presented to hospital with evisceration of the small bowel with a parastomal hernia in this patient who is status post laparotomy resection of the portion of ischemic bowel and takedown of the splenic flexure patient did have elevated white count however no documented perforation though ischemic bowel was slightly concerning and need to cover for the enteric gram-negative both aerobes and anaerobes 2-patient remains to be afebrile white count is down to 9.8 thousand today, patient to continue with Zosyn and continue supportive care Family the bedside questions were answered Time with Patient: Less than 30
[2022-12-22] MEDS: HYDROmorphone 1 MG/ML 1 ML SYRINGE IVP PRN (15:19)
[2022-12-22] MEDS: FUROSEMIDE 20 MG TAB PO SCH (16:36)
[2022-12-22] MEDS: LACTATED RINGERS 1,000 ML IV SCH (16:36)
[2022-12-22] MEDS ORDERED: Potassium Replacement Protocol 1 EACH MISC MISCELLANE PRN ×2 (17:24→17:35)
--- NOTE | 2022-12-22 17:32 | P.PN ---
Subjective Patient is a 87-year-old male with a known history of parastomal hernia and history of sigmoid colectomy and end colostomy. Apparently patient was sitting on the toilet and he lost his balance and slid forward and his noticed that his bowel had perforated through the stomal site. Patient underwent expiratory laparotomy and repair of parastomal hernia and partial colectomy. Colostomy in the right upper quadrant. Postoperatively patient was being monitored in the MICU. Patient is required pain management with Dilaudid and patient is currently nothing by mouth. Patient was hypotensive today afternoon and was given 200 cc fluid bolus with improvement in blood pressure. Otherwise patient denied any complaints of chest pain or shortness of breath. No nausea or vomiting or worsening abdominal pain. Currently requiring 2 L oxygen via nasal cannula. Laboratory showed WBC 16.1 hemoglobin 10.7 platelets 354 Sodium 138 potassium 5.2 chloride 105 bicarb is 24 BUN 38 and creatinine 1.12, AST 21 ALT 22 alk phos 135 and CRP 6.0 and albumin 2.6. Patient on antibiotics in the form of Zosyn. Continued on IV hydration with Ringer's lactate. 12/22/2022 This is a pleasant 87 years old male who was admitted for acute parastomal hernia with evisceration of the small bowel status post exploratory laparotomy and hernia repair and partial colectomy and colostomy. Patient today awake and alert, looks tired but relaxed. He has little shortness of breath but is improving. No leg edema. Carranza catheter placed. He has normal bowel movements with little gas however on examination his right lower quadrant colostomy bag is with small amount of brown stool. He is hemodynamically stable Hemoglobin stable 9.5, potassium 3.50 replaced per protocol Patient was on IV Lasix 1 g twice daily swish total dose Patient is continued on Zosyn Objective - Vital Signs Vital signs: Vital Signs Temp 97.5 F L 12/22/22 12:00 Pulse 62 12/22/22 12:00 Resp 18 12/22/22 12:00 BP 97/54 12/22/22 12:00 Pulse Ox 100 12/22/22 12:00 FiO2 Intake & Output 12/21/22 12/22/22 12/22/22 18:59 06:59 18:59 Intake Total 420 Output Total 300 875 Balance -300 -875 420 Weight 79.5 kg 71 kg Intake: IV 420 Lactated Ringers 1,000 ml 320 @ 40 mls/hr IV .Q24H [facility] Rx#:[id number] Piperacillin-Tazobactam 3 100 .375 gm In Sodium Chloride 0.9% 100 ml @ 25 mls/hr IVPB Q8HR [facility] Rx# :[id number] Output: Urine 875 Stool 300 Other: Voiding Method External Catheter External Catheter External Catheter - Exam GENERAL: The patient is alert and oriented x3, not in any acute distress. Well developed, well nourished. HEENT: Pupils are round and equally reacting to light. EOMI. No scleral icterus. No conjunctival pallor. Normocephalic, atraumatic. No pharyngeal erythema. No thyromegaly. CARDIOVASCULAR: S1 and S2 present. No murmurs, rubs, or gallops. PULMONARY: Chest is clear to auscultation, no wheezing or crackles. -ABDOMEN: Soft, nontender, nondistended, normoactive bowel sounds. No palpable organomegaly. Surgical wound closed and healing, dressing in a Place MUSCULOSKELETAL: No joint swelling or deformity. EXTREMITIES: No cyanosis, clubbing, or pedal edema. NEUROLOGICAL: Gross neurological examination did not reveal any focal deficits. SKIN: No rashes. no petechiae. - Labs CBC & Chem 7: 12/22/22 05:38 12/22/22 05:38 Labs: Abnormal Lab Results - Last 24 Hours (Table) 12/22/22 12/22/22 Range/Units 05:38 05:38 RBC 3.49 L (4.30-5.90) m/uL Hgb 9.5 L (13.0-17.5) gm/dL Hct 30.9 L (39.0-53.0) % MCHC 30.7 L (31.0-37.0) g/dL RDW 15.8 H (11.5-15.5) % Neutrophils # 8.5 H (1.3-7.7) k/uL Lymphocytes # 0.7 L (1.0-4.8) k/uL Potassium 3.3 L (3.5-5.1) mmol/L Carbon Dioxide 31 H (22-30) mmol/L Calcium 7.8 L (8.4-10.2) mg/dL Microbiology - Last 24 Hours (Table) 12/15/22 05:50 Blood Culture - Final Blood Assessment and Plan Assessment: 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 Of parastomal hernia. Colostomy in the right upper quadrant. Postoperative day 3 History of colon perforation requiring colectomy and diverting colostomy and subsequent development of parastomal hernia. Acute on Chronic systolic CHF with dysfunction ejection fraction 20% Chronic small bilateral pleural effusion Chronic atrial fibrillation on anticoagulation with Eliquis at home Hypertension Hyperlipidemia History of CVA BPH Plan: Continue with Zosyn IV dose of Lasix is wished oral dose 1 mg twice a day Continue with lactulose Surgery team, pulmonary team and infectious disease team are on the case Labs and medication were reviewed.. Continue same treatment. Continue with symptomatic treatment. Resume home medication. Monitor labs and vitals. DVT and GI prophylaxis. Further recommendations as per clinical course of the patient DVT prophylaxis: Subcutaneous heparin GI Prophylaxis: Ppi PT/OT: Pending Prognosis is guarded
[2022-12-22] MEDS: POTASSIUM CHLORIDE ER 20 MEQ TAB.ER PO SCH (17:59)
[2022-12-22] MEDS: HYDROcodone/APAP 5-325MG 1 EACH TAB PO PRN (17:59)
[2022-12-22] MEDS: TAMSULOSIN 0.4 MG CAP.ER.24H PO SCH (20:18)
[2022-12-23] MEDS: THIAMINE 100 MG TAB PO SCH ×2 (06:28→17:07)
[2022-12-23] MEDS: HEPARIN SODIUM,PORCINE/PF 5,000 UNIT/0.5 ML SYRINGE SQ SCH ×2 (08:41→17:07)
[2022-12-23] MEDS: PANTOPRAZOLE 40 MG/10 ML VIAL IVP SCH ×2 (08:41→21:51)
[2022-12-23] MEDS: PIPERACILLIN-TAZOBACTAM 3.375 GM in SODIUM CHLORIDE 0.9% 100 ML IVPB SCH ×2 (08:41→17:05)
[2022-12-23] MEDS: LACTULOSE 20 GM/30 ML CUP PO SCH (08:47)
[2022-12-23] MEDS: IPRATROPIUM-ALBUTEROL 3 ML NEB INHALATION SCH ×3 (08:50→20:45)
[2022-12-23] MEDS ORDERED: SODIUM CHLORIDE 0.9% 1,000 ML IV ONE (09:01)
[2022-12-23 09:02] LABS: Calcium 7.8 mg/dL (8.4-10.2); Potassium 3.4 mmol/L (3.5-5.1)
--- NOTE | 2022-12-23 11:00 | P.PN ---
Subjective Patient is a 87-year-old male with a known history of parastomal hernia and history of sigmoid colectomy and end colostomy. Apparently patient was sitting on the toilet and he lost his balance and slid forward and his noticed that his bowel had perforated through the stomal site. Patient underwent expiratory laparotomy and repair of parastomal hernia and partial colectomy. Colostomy in the right upper quadrant. Postoperatively patient was being monitored in the MICU. Patient is required pain management with Dilaudid and patient is currently nothing by mouth. Patient was hypotensive today afternoon and was given 200 cc fluid bolus with improvement in blood pressure. Otherwise patient denied any complaints of chest pain or shortness of breath. No nausea or vomiting or worsening abdominal pain. Currently requiring 2 L oxygen via nasal cannula. Laboratory showed WBC 16.1 hemoglobin 10.7 platelets 354 Sodium 138 potassium 5.2 chloride 105 bicarb is 24 BUN 38 and creatinine 1.12, AST 21 ALT 22 alk phos 135 and CRP 6.0 and albumin 2.6. Patient on antibiotics in the form of Zosyn. Continued on IV hydration with Ringer's lactate. 12/22/2022 This is a pleasant 87 years old male who was admitted for acute parastomal hernia with evisceration of the small bowel status post exploratory laparotomy and hernia repair and partial colectomy and colostomy. Patient today awake and alert, looks tired but relaxed. He has little shortness of breath but is improving. No leg edema. Carranza catheter placed. He has normal bowel movements with little gas however on examination his right lower quadrant colostomy bag is with small amount of brown stool. He is hemodynamically stable Hemoglobin stable 9.5, potassium 3.50 replaced per protocol Patient was on IV Lasix 1 g twice daily swish total dose Patient is continued on Zosyn 12/23/2022 Patient clinically the same as of yesterday, generally is doing well, is little sore in the abdomen about at the same time feels better He has little brown stool that his right lower quadrant colostomy back. No chest pain or dyspnea. No dizziness. Blood pressure is low normal, this morning 93/58. Patient is seen in bed most of the time. He is on low dose of metoprolol and amiodarone Potassium replaced He remains on Zosyn and Lasix is switched to oral dose Objective - Vital Signs Vital signs: Vital Signs Temp 96.3 F L 12/23/22 08:39 Pulse 80 12/23/22 10:24 Resp 18 12/23/22 08:39 BP 93/58 12/23/22 10:24 Pulse Ox 100 12/23/22 08:39 FiO2 Intake & Output 12/22/22 12/23/22 12/23/22 18:59 06:59 18:59 Intake Total 538 300 Output Total 600 200 375 Balance -62 -200 -75 Intake: IV 420 Lactated Ringers 1,000 ml 320 @ 40 mls/hr IV .Q24H KATHLEEN Rx#:[id number] Piperacillin-Tazobactam 3 100 .375 gm In Sodium Chloride 0.9% 100 ml @ 25 mls/hr IVPB Q8HR KATHLEEN Rx# :[id number] Oral 118 300 Output: Urine 600 200 375 Other: Voiding Method Indwelling Catheter External Catheter Indwelling Catheter - Exam GENERAL: The patient is alert and oriented x3, not in any acute distress. Well developed, well nourished. HEENT: Pupils are round and equally reacting to light. EOMI. No scleral icterus. No conjunctival pallor. Normocephalic, atraumatic. No pharyngeal erythema. No thyromegaly. CARDIOVASCULAR: S1 and S2 present. No murmurs, rubs, or gallops. PULMONARY: Chest is clear to auscultation, no wheezing or crackles. -ABDOMEN: Soft, nontender, nondistended, normoactive bowel sounds. No palpable organomegaly. Surgical wound closed and healing, dressing in a Place MUSCULOSKELETAL: No joint swelling or deformity. EXTREMITIES: No cyanosis, clubbing, or pedal edema. NEUROLOGICAL: Gross neurological examination did not reveal any focal deficits. SKIN: No rashes. no petechiae. - Labs CBC & Chem 7: 12/22/22 05:38 12/23/22 06:54 Labs: Abnormal Lab Results - Last 24 Hours (Table) 12/23/22 Range/Units 06:54 Potassium 3.4 L (3.5-5.1) mmol/L BUN 21 H (9-20) mg/dL Calcium 7.8 L (8.4-10.2) mg/dL Assessment and Plan Assessment: 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 Of parastomal hernia. Colostomy in the right upper quadrant. Postoperative day 3 History of colon perforation requiring colectomy and diverting colostomy and subsequent development of parastomal hernia. Acute on Chronic systolic CHF with dysfunction ejection fraction 20% Chronic small bilateral pleural effusion Chronic atrial fibrillation on anticoagulation with Eliquis at home Hypertension Hyperlipidemia History of CVA BPH Plan: Continue with Zosyn IV dose of Lasix is wished oral dose 1 mg twice a day Continue with lactulose Surgery team, pulmonary team and infectious disease team are on the case Labs and medication were reviewed.. Continue same treatment. Continue with symptomatic treatment. Resume home medication. Monitor labs and vitals. DVT and GI prophylaxis. Further recommendations as per clinical course of the patient DVT prophylaxis: Subcutaneous heparin GI Prophylaxis: Ppi PT/OT: Pending Prognosis is guarded
--- NOTE | 2022-12-23 11:15 | P.PN ---
Progress Note - Text Progress Note Date: 12/23/22 The patient remains relatively stable. He has had some hypotension overnight. The patient is currently receiving a fluid bolus. His systolic blood pressure is now in the 95 range. His morning Lasix and Cardizem have been held. On exam vital signs appear stable. Abdomen is soft. Colostomy has some functioning. Status post repair of large incarcerated parastomal hernia with evisceration. Patient will be observed closely. If he still has issues with hypertension he may require transfer back to the ICU.
--- NOTE | 2022-12-23 11:27 | XR ---
EXAMINATION TYPE: XR chest 2V DATE OF EXAM: 12/23/2022 COMPARISON: 10/29/2022 HISTORY: Cough and shortness of breath TECHNIQUE: Frontal and lateral views of the chest are obtained. FINDINGS: There is a moderate left pleural effusion. There is mild prominence of the cardiac silhouette and increased interstitial markings possibly indic ating pulmonary vascular congestion. There is no airspace opacification in the right lung. There is no pneumothorax. There are marked degenerative changes of the right glenohumeral joint other diallo the osseous structures are intact IMPRESSION: Acute cardiopulmonary disease as described above. The findings are most consistent with CHF. Alternatively findings could represent left lower lobe pneumonic infiltrate and pleural effusion with diffuse chronic interstitial changes clinical correlation follow-up to resolution is dash ahumada
[2022-12-23] MEDS: AMIODARONE 200 MG TAB PO SCH ×2 (11:49→17:07)
[2022-12-23] MEDS: METOPROLOL SUCCINATE (ER) 25 MG TAB.ER.24H PO SCH (11:49)
[2022-12-23] MEDS: FUROSEMIDE 20 MG TAB PO SCH ×2 (11:49→17:07)
[2022-12-23] MEDS: MULTIVITAMINS, THERA 1 EACH TAB PO SCH (11:55)
[2022-12-23] MEDS: FOLIC ACID 1 MG TAB PO SCH (11:55)
[2022-12-23] MEDS: POTASSIUM CHLORIDE ER 20 MEQ TAB.ER PO SCH ×2 (11:55→12:33)
--- NOTE | 2022-12-23 13:08 | P.PN ---
Subjective Progress Note Date: 12/23/22 Principal diagnosis: 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 Patient is postoperative day number 87-year-old male patient, multiple no comorbidities, with a previous history of a perforated rectum due to fecal impaction was underwent an emergent sigmoid colectomy and diverting colostomy creation by general surgery in September 2020. The patient was in the hospital back in October 2022 because of swelling and prolapse of his ostomy site. He wanted to have his colostomy reversed. However due to pre-existing cardiac conditions and other comorbidities, this was not done. He was considered to be very high risk. Noted the patient is known to have chronic systolic heart failure, and is also known to have previous history of chronic atrial fibrillation, CVA, DVT and he has limited on anticoagulation with Eliquis. Other comorbid conditions include hypertension and hyperlipidemia and previous history of pulmonary embolism. He has issues also with BPH and protein calorie malnutrition. The patient as such is chronically debilitated. The patient presented himself to the emergency department today. Apparently was getting to the toilet and his hernia rupture then eviscerated approximately 3 feet of small bowel emergency at the colostomy site. For that reason, the patient came into the emergency department. He was hemodynamically stable. His labs showed a white cell count of 15 with a hemoglobin 11.8 and a platelet count of 398. BUN was 41 with a creatinine of 1.1 and a sodium level is 137. Based on that, the patient was taken to the operating room and the patient underwent repair of a parastomal hernia, taking down of the splenic flexure, partial colectomy and colostomy in the right upper quadrant. Estimated blood loss was 200 mL. The patient currently is having some bloody oozing into his colostomy bag. Surgical wound is dry clean and intact. Note that he was on anticoagulation with Eliquis preoperatively. His cognition profile has been essentially within normal limits. Chest x-ray in the OR showed pulmonary vessel congestion, possibly left-sided pleural effusion and the air in his abdomen occupying under the diaphragm. On today's evaluation of 12/15/2022, the patient is awake and alert and communicating. He underwent surgery yesterday and the patient is currently postop day #1. He did very well overnight and he is still hemodynamically stable. He remains in a chest fibrillation. No anticoagulants for now. Note that he was taken Ellis was on outpatient basis and this was essentially discontinued. Otherwise, we have not witnessed any bleeding. His surgery 1 is dry clean and intact. The patient has a viable colostomy that was constructed in the right upper quadrant. His hemoglobin is stable at 10.7. The white cell count is at 16 and the sodium is at 138 with a BUN of 38 and a creatinine of 1.1. He is doing well. He remains nothing by mouth for now. No issues with pain. He was provided incentive spirometer. On 12/17/2019, the patient is postop day #2. He was given some clear liquid diet. His for cough and poor ability to do pulmonary toileting. Does have some upper airway secretions. Using the incentive spirometer. Remains on IV Zosyn. Pain is under adequate control. Bowel sounds are hypoactive and there is no functional status colostomy. Surgical site is dry clean and intact. No recent blood work from today. Blood work from yesterday was noted. The patient is seen today 12/17/2022 in follow-up on the selective care unit. Postoperative day #3 for a parastomal hernia with evisceration. He is currently awake and alert in no acute distress. He is quite frail and weak. He has a loose nonproductive cough. He is maintaining O2 saturations in the 90s on 3 L/m per nasal cannula. Currently afebrile. Ultrasound of the left chest reveals a 6.6 cm pocket. Blood cultures pending. White count 11.5. Hemoglobin 9.2. Platelets 282. Sodium 138. Potassium 4.3. Bicarb 28. BUN 26. Creatinine 1.15. He remains on antibiotics in the form of Zosyn. Heparin for DVT prophylaxis. Ostomy on the right with no stool noted. The patient is seen today 12/18/2022 in follow-up on the selective care unit. Postoperative day #4 for parastomal hernia with evisceration. He is currently resting fairly comfortable in bed. He is quite weak and unable to sit up on his own. No plans for thoracentesis at this point. There is noted subcutaneous emphysema of the right anterior side of his chest. Chest x-ray reveals bilateral infiltrate and pleural effusion suspicious for congestive heart failure superimposed on background COPD. New peripheral-based infiltrate in the right upper lobe. Interval reduction in the amount of free intraperitoneal air. He is maintaining O2 saturation in the mid 90s on 3 L/m per nasal cannula. He's been afebrile. Blood cultures pending. Sodium 136. Potassium 4.4. B icarb 26. BUN 21. Creatinine 1.07. Glucose 106. He is currently in a -1 L balance. He's been initiated on Lasix 20 mg IV every 12 hours. Heparin for DVT prophylaxis. Remains on bronchodilators. Remains on antibiotics in the form of Zosyn. Reevaluated today on 12/19/2022, patient is now postoperative day #5, parastomal hernia with evisceration repair. Patient is sitting in a bedside chair, does not seem to be in any distress, he is actually feeling much better, comfortable, on 3 L nasal cannula and his O2 sats at 95%. Patient remains on Zosyn, and being considered to transition to Augmentin upon discharge by infectious disease. Placement back to longterm is in progress. WBC count today is 11 hemoglobin is 9.5 a left lites are normal renal profile is normal. Bicarb is normal. I was planning thoracentesis on this patient, however patient seems to be improving with diuretics, no need for thoracentesis at this point. Reevaluated today on 12/20/2022, patient is now postoperative day #6. Patient is doing fairly well, does not seem to be in any distress, he is on 3 L nasal cannula and O2 sats is 97% no labs were done today, the labs from yesterday were reviewed and they seem to be basically unremarkable. Reevaluated today on 12/21/2022, patient is now postoperative day #7, continues to do well, no major issues he is on room air at 94% saturation. Chest x-ray showed a small left-sided pleural effusion and atelectasis not large enough to consider thoracentesis, patient is responding well to diuretics. WBC count is 12.2 hemoglobin is 7.7. Basic metabolic profile is normal, BUN is 21 creatinine 2.02, I will cut down on diuretics since his renal functioning is slightly worse Reevaluated today on 12/22/2022, he is now postoperative day #8, patient is basically awaiting placement. Pulmonary-diallo no major issues, patient seems to be very comfortable, he is on 3 L nasal cannula and his O2 sats is 100%. Blood pressure is stable 97/54 with a mean of 68, labs are unremarkable including WBC of 9.8 hemoglobin is 9.5. And his basic metabolic profile is basically unremarkable. Remains on diuretics, creatinine slightly up to 1.15. Will change his Lasix to 20 mg by mouth twice a day Reevaluated the patient today on 12/23/2022, patient is now postoperative day #9, apparently he had low blood pressure earlier, blood pressure was soft, however the patient was making good urine, and he was given fluid boluses, I went back to see the patient, blood pressure was 104/64, patient was not in any distress, is at bedside, patient is doing great, denies any cough wheezing shortness of breath denies any chest pain. His abdominal findings are benign. No evid ence of surgical abdomen based on my examination. And I strongly doubt sepsis. Patient has been receiving diuretics for history of LV dysfunction congestive heart failure and left pleural effusion, follow-up chest x-ray after fluid bolus showed mild interstitial edema and small left pleural effusion. He is receiving fluids at 40 mL/h, and again clinically is not in any distress. I canceled tra nsferring the patient to the ICU, and we'll continue to monitor on the cardiac floor labs today were unremarkable including normal basic metabolic profile, normal renal profile, serum cortisol level recently was 28 Objective - Vital Signs Vital signs: Vital Signs Temp 96.5 F L 12/23/22 12:02 Pulse 80 12/23/22 12:02 Resp 18 12/23/22 08:39 BP 89/64 12/23/22 12:02 Pulse Ox 100 12/23/22 08:39 FiO2 Intake & Output 12/22/22 12/23/22 12/23/22 18:59 06:59 18:59 Intake Total 538 300 Output Total 600 200 375 Balance -62 -200 -75 Intake: IV 420 Lactated Ringers 1,000 ml 320 @ 40 mls/hr IV .Q24H KATHLEEN Rx#:[id number] Piperacillin-Tazobactam 3 100 .375 gm In Sodium Chloride 0.9% 100 ml @ 25 mls/hr IVPB Q8HR KATHLEEN Rx# :[id number] Oral 118 300 Output: Urine 600 200 375 Other: Voiding Method Indwelling Catheter External Catheter Indwelling Catheter - Exam Physical Exam: Revealed 87-year-old white male, frail looking, chronically ill, not in distress, on 3 L nasal cannula with O2 saturation of 100% Head: Atraumatic, normocephalic. HEENT:[Neck is supple.] [No neck masses.] [No thyromegaly.] [No JVD.] Chest: [Fine crackles at the bases especially at the left base no rhonchi no wheezes Cardiac Exam: [Normal S1 and S2, no S3 gallop, no murmur.] Abdomen: Postsurgical, basically unremarkable.Soft. Nondistended. Incision site clean dry and intact. Flash drain noted on the left with serosanguineous drainage on dressing. Ostomy on the right stoma beefy red. Liquidy stool output present. Extremities: [No clubbing, no edema, no cyanosis.] Neurological Exam: Patient has chronic right-sided weakness and contracture related to previous CVA Psychiatric: Normal mood affect and normal mental status examination. Skin: No rashes - Labs CBC & Chem 7: 12/22/22 05:38 12/23/22 06:54 Labs: Abnormal Lab Results - Last 24 Hours (Table) 12/23/22 Range/Units 06:54 Potassium 3.4 L (3.5-5.1) mmol/L BUN 21 H (9-20) mg/dL Calcium 7.8 L (8.4-10.2) mg/dL Assessment and Plan Assessment: Impression: 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 Acute hypoxic respiratory failure secondary to above History of deep vein thromboses and pulmonary embolism maintained on anticoagulation therapy Chronic atrial fibrillation Benign essential hypertension History of previous CVA and right-sided weakness Recommendation: Continue antibiotics, as per infectious disease on the case Hold diuretics as long as the blood pressure is marginal No need to transfer to ICU at this point. Continue incentive spirometry Continue oxygen and titrate accordingly Patient is awaiting placement We'll continue to follow Time with Patient: Less than 30
[2022-12-23] MEDS: HYDROmorphone 1 MG/ML 1 ML SYRINGE IVP PRN ×3 (15:09→21:52)
[2022-12-23] MEDS: LACTATED RINGERS 1,000 ML IV SCH (15:10)
[2022-12-23] MEDS: POTASSIUM CHLORIDE 10 MEQ in WATER FOR INJECTION 1 100ML.BAG IVPB SCH ×2 (18:47→21:51)
[2022-12-23] MEDS: TAMSULOSIN 0.4 MG CAP.ER.24H PO SCH (21:51)
--- NOTE | 2022-12-23 22:35 | P.PN ---
Subjective Progress Note Date: 12/23/22 Principal diagnosis: Leukocytosis Patient is a 87-year-old male with a past medical history significant for perforated rectum due to fecal impaction requiring sigmoid colectomy and diverting colostomy in September 2020 could not be reversed because of multiple comorbid condition patient presented to hospital to the hospital with evisceration of portion of the small bowel at the colostomy site , status post laparotomy and repair of parastomal hernia and resection of portion of bowel. On today's evaluation that is 12/23/2022, patient continues to be afebrile, the patient is complaining of shortness of breath and cough and bringing up sputum patient is currently on 3 L nasal cannula oxygen, the patient did have nausea but no vomiting and did have output in his colostomy bag Objective - Vital Signs Vital signs: Vital Signs Temp 96.3 F L 12/23/22 08:39 Pulse 78 12/23/22 09:00 Resp 18 12/23/22 08:39 BP 86/53 12/23/22 08:39 Pulse Ox 100 12/23/22 08:39 FiO2 Intake & Output 12/22/22 12/23/22 12/23/22 18:59 06:59 18:59 Intake Total 538 300 Output Total 600 200 375 Balance -62 -200 -75 Intake: IV 420 Lactated Ringers 1,000 ml 320 @ 40 mls/hr IV .Q24H KATHLEEN Rx#:[id number] Piperacillin-Tazobactam 3 100 .375 gm In Sodium Chloride 0.9% 100 ml @ 25 mls/hr IVPB Q8HR KATHLEEN Rx# :[id number] Oral 118 300 Output: Urine 600 200 375 Other: Voiding Method Indwelling Catheter External Catheter - Exam GENERAL DESCRIPTION: An elderly male lying in bed in no distress RESPIRATORY SYSTEM: Unlabored breathing , decreased breath sounds at bases HEART: S1 S2 regular rate and rhythm , ABDOMEN: Soft , midline incision is intact , did have output in the colostomy bag EXTREMITIES: No edema feet - Labs CBC & Chem 7: 12/22/22 05:38 12/23/22 17:25 Labs: Abnormal Lab Results - Last 24 Hours (Table) 12/23/22 Range/Units 06:54 Potassium 3.4 L (3.5-5.1) mmol/L BUN 21 H (9-20) mg/dL Calcium 7.8 L (8.4-10.2) mg/dL Assessment and Plan (1) Leukocytosis Current Visit: Yes Status: Acute Code(s): D72.829 - ELEVATED WHITE BLOOD CELL COUNT, UNSPECIFIED SNOMED Code(s): 508447078 (2) Evisceration of bowel Current Visit: Yes Status: Acute Code(s): KFH8810 - SNOMED Code(s): 25713923 Plan: 1patient presented to hospital with evisceration of the small bowel with a parastomal hernia in this patient who is status post laparotomy resection of the portion of ischemic bowel and takedown of the splenic flexure patient did have elevated white count however no documented perforation though ischemic bowel was slightly concerning and need to cover for the enteric gram-negative both aerobes and anaerobes 2-patient remains to be afebrile white count is normal however chest x-ray with question of CHF versus left lower lobe infiltrate, we will obtain CRP pro calcit onin and sputum cultures continue with the Zosyn and monitor clinical course closely Time with Patient: Less than 30
[2022-12-24] MEDS: PIPERACILLIN-TAZOBACTAM 3.375 GM in SODIUM CHLORIDE 0.9% 100 ML IVPB SCH ×3 (00:22→15:29)
[2022-12-24] MEDS: HEPARIN SODIUM,PORCINE/PF 5,000 UNIT/0.5 ML SYRINGE SQ SCH ×3 (00:22→15:29)
[2022-12-24] MEDS: THIAMINE 100 MG TAB PO SCH ×2 (07:14→17:53)
[2022-12-24] MEDS: IPRATROPIUM-ALBUTEROL 3 ML NEB INHALATION SCH ×4 (07:53→21:09)
[2022-12-24] MEDS: LACTULOSE 20 GM/30 ML CUP PO SCH (08:51)
[2022-12-24] MEDS: AMIODARONE 200 MG TAB PO SCH ×2 (08:52→17:53)
[2022-12-24] MEDS: METOPROLOL SUCCINATE (ER) 25 MG TAB.ER.24H PO SCH (08:52)
[2022-12-24] MEDS: PANTOPRAZOLE 40 MG/10 ML VIAL IVP SCH ×2 (08:52→21:54)
[2022-12-24] MEDS: FUROSEMIDE 20 MG TAB PO SCH (08:52)
[2022-12-24] MEDS: FOLIC ACID 1 MG TAB PO SCH (08:53)
[2022-12-24] MEDS: MULTIVITAMINS, THERA 1 EACH TAB PO SCH (08:53)
--- NOTE | 2022-12-24 10:25 | P.PN ---
Subjective Patient is a 87-year-old male with a known history of parastomal hernia and history of sigmoid colectomy and end colostomy. Apparently patient was sitting on the toilet and he lost his balance and slid forward and his noticed that his bowel had perforated through the stomal site. Patient underwent expiratory laparotomy and repair of parastomal hernia and partial colectomy. Colostomy in the right upper quadrant. Postoperatively patient was being monitored in the MICU. Patient is required pain management with Dilaudid and patient is currently nothing by mouth. Patient was hypotensive today afternoon and was given 200 cc fluid bolus with improvement in blood pressure. Otherwise patient denied any complaints of chest pain or shortness of breath. No nausea or vomiting or worsening abdominal pain. Currently requiring 2 L oxygen via nasal cannula. Laboratory showed WBC 16.1 hemoglobin 10.7 platelets 354 Sodium 138 potassium 5.2 chloride 105 bicarb is 24 BUN 38 and creatinine 1.12, AST 21 ALT 22 alk phos 135 and CRP 6.0 and albumin 2.6. Patient on antibiotics in the form of Zosyn. Continued on IV hydration with Ringer's lactate. 12/22/2022 This is a pleasant 87 years old male who was admitted for acute parastomal hernia with evisceration of the small bowel status post exploratory laparotomy and hernia repair and partial colectomy and colostomy. Patient today awake and alert, looks tired but relaxed. He has little shortness of breath but is improving. No leg edema. Carranza catheter placed. He has normal bowel movements with little gas however on examination his right lower quadrant colostomy bag is with small amount of brown stool. He is hemodynamically stable Hemoglobin stable 9.5, potassium 3.50 replaced per protocol Patient was on IV Lasix 1 g twice daily swish total dose Patient is continued on Zosyn 12/23/2022 Patient clinically the same as of yesterday, generally is doing well, is little sore in the abdomen about at the same time feels better He has little brown stool that his right lower quadrant colostomy back. No chest pain or dyspnea. No dizziness. Blood pressure is low normal, this morning 93/58. Patient is seen in bed most of the time. He is on low dose of metoprolol and amiodarone Potassium replaced He remains on Zosyn and Lasix is switched to oral dose 12/24/2022 Patient is awake alert, overall looks clinically, he is somewhat generally weak but this was his case since I saw him. He is in the bed most of the time. He has minimal abdominal pain which is expected at the surgical site colostomy back there is little brown stool in it. Surgery primary team are following him closely regarding this as well. Blood pressure was on the low side 95/48. He is asymptomatic we will admit, is sitting up in bed with no dizziness or other complaints. No chest pain or dyspnea. He received 1 L of normal saline this morning by primary team. Critical care team recommended to hold his diuretic but I'm going to lower his oral Lasix 20 mg twice daily to once daily. Heaviness on Zosyn as well His Carranza catheter was placed in the hospital. He was not on oxygen at home Objective - Vital Signs Vital signs: Vital Signs Temp 98.2 F 12/24/22 08:50 Pulse 90 12/24/22 08:50 Resp 16 12/24/22 08:50 BP 95/48 12/24/22 08:50 Pulse Ox 95 12/24/22 08:50 FiO2 Intake & Output 12/23/22 12/24/22 12/24/22 18:59 06:59 18:59 Intake Total 2440 100 Output Total 525 Balance 1915 100 Intake: IV 420 Lactated Ringers 1,000 ml 320 @ 40 mls/hr IV .Q[facility]H [facility] Rx#:[id number] Piperacillin-Tazobactam 3 100 .375 gm In Sodium Chloride 0.9% 100 ml @ 25 mls/hr IVPB Q8HR [facility] Rx# :[id number] Intake, IV Titration 1000 Amount Sodium Chloride 0.9% 1, 1000 000 ml @ 999 mls/hr IV . Q1H1M [facility] Rx#:[id number] Oral 1020 100 Output: Urine 525 Other: Voiding Method Indwelling Catheter Indwelling Catheter - Exam GENERAL: The patient is alert and oriented x3, not in any acute distress. Well developed, well nourished. HEENT: Pupils are round and equally reacting to light. EOMI. No scleral icterus. No conjunctival pallor. Normocephalic, atraumatic. No pharyngeal erythema. No thyromegaly. CARDIOVASCULAR: S1 and S2 present. No murmurs, rubs, or gallops. PULMONARY: Chest is clear to auscultation, no wheezing or crackles. -ABDOMEN: Soft, nontender, nondistended, normoactive bowel sounds. No palpable organomegaly. Surgical wound closed and healing, dressing in a Place MUSCULOSKELETAL: No joint swelling or deformity. EXTREMITIES: No cyanosis, clubbing, or pedal edema. NEUROLOGICAL: Gross neurological examination did not reveal any focal deficits. SKIN: No rashes. no petechiae. - Labs CBC & Chem 7: 12/22/22 05:38 12/23/22 17:25 Assessment and Plan Assessment: 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 Of parastomal hernia. Colostomy in the right upper quadrant. Postoperative day 3 History of colon perforation requiring colectomy and diverting colostomy and subsequent development of parastomal hernia. Acute on Chronic systolic CHF with dysfunction ejection fraction 20% Chronic small bilateral pleural effusion Chronic atrial fibrillation on anticoagulation with Eliquis at home Hypertension, currently he has borderline blood pressure Hyperlipidemia History of CVA BPH Plan: Continue with Zosyn IV dose of Lasix is wished oral dose 1 mg twice a day Continue with lactulose Surgery team, pulmonary team and infectious disease team are on the case Labs and medication were reviewed.. Continue same treatment. Continue with symptomatic treatment. Resume home medication. Monitor labs and vitals. DVT and GI prophylaxis. Further recommendations as per clinical course of the patient DVT prophylaxis: Subcutaneous heparin GI Prophylaxis: Ppi PT/OT: Pending Prognosis is guarded
[2022-12-24 12:07] LABS: Anisocytosis Slight; Basophils % (A) 0 %; Eosinophils # (A) 0.2 k/uL (0-0.7); Eosinophils % (A) 1 %; HCT 31.2 % (39.0-53.0); HGB 9.6 gm/dL (13.0-17.5); Hypochromasia Moderate; Lymphocytes # (A) 0.7 k/uL (1.0-4.8); Lymphocytes % (A) 7 %; MCH 27.4 pg (25.0-35.0); MCHC 30.8 g/dL (31.0-37.0); MCV 88.9 fL (80.0-100.0); Mean Platelet Volume 8.3; Monocytes # (A) 0.3 k/uL (0-1.0); Monocytes % (A) 3 %; Neutrophils # (A) 9.4 k/uL (1.3-7.7); Neutrophils % (A) 88 %; Platelet Count 289 k/uL (150-450); RBC 3.51 m/uL (4.30-5.90); WBC 10.7 k/uL (3.8-10.6)
[2022-12-24 12:22] LABS: C Reactive Protein 6.9 mg/dL (<1.0); Calcium 8.2 mg/dL (8.4-10.2); Potassium 3.6 mmol/L (3.5-5.1)
--- NOTE | 2022-12-24 13:35 | P.PN ---
Subjective Progress Note Date: 12/24/22 CHIEF COMPLAINT: Parastomal hernia with evisceration HISTORY OF PRESENT ILLNESS: Patient is postop day #10 status post exploratory laparotomy, repair of parastomal hernia, takedown of splenic flexure, partial colectomy and colostomy in right upper quadrant. Patient reports his pain is controlled. Denies any nausea or vomiting. Ostomy is functioning. Patient was hypotensive during the night and received 1 L fluid bolus. Chest x-ray from yesterday shows that findings are most consistent with CHF. Alternatively findings could represent a left lower lobe pneumonia infiltrate and pleural effusion with diffuse chronic interstitial changes. Pulmonary service has discontinue the IV Lasix. Medicine service has placed patient on oral Lasix 20 mg by mouth daily. Afebrile. BP 95/57 WBC 10.7 HGB 9.6 plt 289 Patient seen and examined with Dr. barr PHYSICAL EXAM: VITAL SIGNS: Reviewed. GENERAL: Well-developed in no acute distress. ABDOMEN: Soft. Nondistended. Incision site clean dry and intact. Flash drain intact. No drainage. Ostomy on the right stoma beefy red. Liquidy brown stool output present. NEUROLOGIC: awake and alert ASSESSMENT: 1. Parastomal hernia with evisceration 2. History of Afib 3. History of cardiomyopathy EF 20% 4. Subcutaneous emphysema at the stoma site into the chest wall likely secondary to surgery and will absorb with time PLAN: -Possible discharge tomorrow if cleared by all consulting physicians -Advance diet to regular -Continue lactulose daily for constipation -continue pain management -continue antibiotics -Encouraged patient to use incentive spirometer -Encouraged patient to increase activity level -Patient to go to [facility] at discharge -Continue DVT prophylaxis subcu heparin and GI prophylaxis Protonix Physician Heater Engineer Helper note has been reviewed by physician. Signing provider agrees with the documented findings, assessment, and plan of care. Objective - Vital Signs Vital signs: Vital Signs Temp 98.1 F 12/24/22 12:30 Pulse 83 12/24/22 12:30 Resp 16 12/24/22 12:30 BP 95/57 12/24/22 12:30 Pulse Ox 95 12/24/22 12:30 FiO2 Intake & Output 12/23/22 12/24/22 12/24/22 18:59 06:59 18:59 Intake Total 2440 440 Output Total 525 300 Balance 1915 140 Intake: IV 420 Lactated Ringers 1,000 ml 320 @ 40 mls/hr IV .Q24H [facility] Rx#:[id number] Piperacillin-Tazobactam 3 100 .375 gm In Sodium Chloride 0.9% 100 ml @ 25 mls/hr IVPB Q8HR [facility] Rx# :[id number] Intake, IV Titration 1000 Amount Sodium Chloride 0.9% 1, 1000 000 ml @ 999 mls/hr IV . Q1H1M [facility] Rx#:[id number] Oral 1020 440 Output: Urine 525 300 Other: Voiding Method Indwelling Catheter Indwelling Catheter Indwelling Catheter - Labs CBC & Chem 7: 12/24/22 11:44 12/24/22 11:44 Labs: Abnormal Lab Results - Last 24 Hours (Table) 12/24/22 12/24/22 Range/Units 11:44 11:44 WBC 10.7 H (3.8-10.6) k/uL RBC 3.51 L (4.30-5.90) m/uL Hgb 9.6 L (13.0-17.5) gm/dL Hct 31.2 L (39.0-53.0) % MCHC 30.8 L (31.0-37.0) g/dL RDW 16.0 H (11.5-15.5) % Neutrophils # 9.4 H (1.3-7.7) k/uL Lymphocytes # 0.7 L (1.0-4.8) k/uL Glucose 112 H (74-99) mg/dL Calcium 8.2 L (8.4-10.2) mg/dL C-Reactive Protein 6.9 H (<1.0) mg/dL
--- NOTE | 2022-12-24 14:00 | P.PN ---
Subjective Progress Note Date: 12/24/22 Principal diagnosis: Abdominal surgery. Reevaluated today on 12/20/2022, patient is now postoperative day #6. Patient is doing fairly well, does not seem to be in any distress, he is on 3 L nasal cannula and O2 sats is 97% no labs were done today, the labs from yesterday were reviewed and they seem to be basically unremarkable. Reevaluated today on 12/21/2022, patient is now postoperative day #7, continues to do well, no major issues he is on room air at 94% saturation. Chest x-ray showed a small left-sided pleural effusion and atelectasis not large enough to consider thoracentesis, patient is responding well to diuretics. WBC count is 12.2 hemoglobin is 7.7. Basic metabolic profile is normal, BUN is 21 creatinine 2.02, I will cut down on diuretics since his renal functioning is slightly worse Reevaluated today on 12/22/2022, he is now postoperative day #8, patient is basically awaiting placement. Pulmonary-diallo no major issues, patient seems to be very comfortable, he is on 3 L nasal cannula and his O2 sats is 100%. Blood pressure is stable 97/54 with a mean of 68, labs are unremarkable including WBC of 9.8 hemoglobin is 9.5. And his basic metabolic profile is basically unremarkable. Remains on diuretics, creatinine slightly up to 1.15. Will change his Lasix to 20 mg by mouth twice a day Reevaluated the patient today on 12/23/2022, patient is now postoperative day #9, apparently he had low blood pressure earlier, blood pressure was soft, however the patient was making good urine, and he was given fluid boluses, I went back to see the patient, blood pressure was 104/64, patient was not in any distress, is at bedside, patient is doing great, denies any cough wheezing shortness of breath denies any chest pain. His abdominal findings are benign. No evidence of surgical abdomen based on my examination. And I strongly doubt sepsis. Patient has been receiving diuretics for history of LV dysfunction congestive heart failure and left pleural effusion, follow-up chest x-ray after fluid bolus showed mild interstitial edema and small left pleural effusion. He is receiving fluids at 40 mL/h, and again clinically is not in any distress. I canceled transferring the patient to the ICU, and we'll continue to monitor on the cardiac floor labs today were unremarkable including normal basic metabolic profile, normal renal profile, serum cortisol level recently was 28 Progress note dated 12/24/2022. The patient is seen today in room 356. The patient is postop day #10. The patient's currently on 3 L of oxygen. He is receiving IV Zosyn. He looks relatively stable, but somewhat frail. White count 10.7, hemoglobin 9.6, hematocrit 31.2, and platelet count 289,000. Sodium 139, potassium 3.6, chlorides 102, CO2 29, BUN 18, creatinine 1.03. Calcium 8.2. C-reactive protein is 6.9. Cortisol level from yesterday was 19. Chest x-ray from yesterday was most consistent with CHF. Objective - Vital Signs Vital signs: Vital Signs Temp 98.1 F 12/24/22 12:30 Pulse 83 12/24/22 12:30 Resp 16 12/24/22 12:30 BP 95/57 12/24/22 12:30 Pulse Ox 95 12/24/22 12:30 FiO2 Intake & Output 12/23/22 12/24/22 12/24/22 18:59 06:59 18:59 Intake Total 2440 440 Output Total 525 320 Balance 1915 120 Intake: IV 420 Lactated Ringers 1,000 ml 320 @ 40 mls/hr IV .Q24H [facility] Rx#:[id number] Piperacillin-Tazobactam 3 100 .375 gm In Sodium Chloride 0.9% 100 ml @ 25 mls/hr IVPB Q8HR [facility] Rx# :[id number] Intake, IV Titration 1000 Amount Sodium Chloride 0.9% 1, 1000 000 ml @ 999 mls/hr IV . Q1H1M [facility] Rx#:[id number] Oral 1020 440 Output: Urine 525 300 Stool 20 Other: Voiding Method Indwelling Catheter Indwelling Catheter Indwelling Catheter - Exam No acute distress, oriented 3. Weak and frail appearing. Currently on 3 L. HEENT examination is grossly unremarkable. Neck supple. Full range of motion. No adenopathy thyromegaly or neck vein distention. Cardiovascular examination reveals regular rhythm rate. S1-S2 normal. No S3 or S4. No discernible murmur noted. Heart rate 83 bpm. Lungs reveal scattered rhonchi. No wheezes or crackles. Breath sounds equal bilaterally. 3 L saturation is 97%. 2 L saturation is 95%. Abdomen soft, with limited bowel sounds. Ostomy looks to be intact. Incision site clean and dry. Extremities are intact. No cyanosis clubbing or edema. Skin is without rash or lesion. Neurologic examination is brief but nonfocal. - Labs CBC & Chem 7: 12/24/22 11:44 12/24/22 11:44 Labs: Abnormal Lab Results - Last 24 Hours (Table) 12/24/22 12/24/22 Range/Units 11:44 11:44 WBC 10.7 H (3.8-10.6) k/uL RBC 3.51 L (4.30-5.90) m/uL Hgb 9.6 L (13.0-17.5) gm/dL Hct 31.2 L (39.0-53.0) % MCHC 30.8 L (31.0-37.0) g/dL RDW 16.0 H (11.5-15.5) % Neutrophils # 9.4 H (1.3-7.7) k/uL Lymphocytes # 0.7 L (1.0-4.8) k/uL Glucose 112 H (74-99) mg/dL Calcium 8.2 L (8.4-10.2) mg/dL C-Reactive Protein 6.9 H (<1.0) mg/dL Assessment and Plan Assessment: Acute parastomal hernia with evisceration of small bowel, status post laparotomy, repair of parastomal hernia, takedown of splenic flexure, partial colectomy and colostomy, postop day #10. History of perforated colon requiring colectomy and diverting colostomy with subsequent development of parastomal hernia. Severe cardiomyopathy with LV dysfunction. Chronic systolic CHF, with bilateral pleural effusion. Acute hypoxemic respiratory failure. History of deep vein thrombosis, and pulmonary embolism. Chronic atrial fibrillation. Benign essential hypertension. History of previous CVA with right-sided weakness. Plan: Plan dated 12/24/2022. The patient is seen today in room 356. He is sitting in a chair next to his bed. The patient continues on 3 L of oxygen. His saturations are 97% and his oxygen is titrated down to 2 L. Remains on Zosyn. Labs, x-rays, and medications are all reviewed. The patient's overall prognosis remains guarded. He appears to be very frail and weak. Will likely need some rehabilitation. We will continue to follow the patient, and make recommendations along the way. Time with Patient: Less than 30
[2022-12-24] MEDS: HYDROmorphone 1 MG/ML 1 ML SYRINGE IVP PRN (15:30)
[2022-12-24] MEDS: LACTATED RINGERS 1,000 ML IV SCH (17:49)
[2022-12-24] MEDS ORDERED: FUROSEMIDE 20 MG TAB PO STA (21:25)
--- NOTE | 2022-12-24 21:47 | P.PN ---
Subjective Progress Note Date: 12/24/22 Principal diagnosis: Leukocytosis Patient is a 87-year-old male with a past medical history significant for perforated rectum due to fecal impaction requiring sigmoid colectomy and diverting colostomy in September 2020 could not be reversed because of multiple comorbid condition patient presented to hospital to the hospital with evisceration of portion of the small bowel at the colostomy site , status post laparotomy and repair of parastomal hernia and resection of portion of bowel. On today's evaluation that is 12/24/2022, patient remains to be afebrile, the patient is breathing slightly comfortably today on a 3 L nasal cannula oxygen denies any chest pain did have a cough and is bringing up some sputum no nausea no vomiting and abdominal pain is controlled and did have output in his colostomy bag Objective - Vital Signs Vital signs: Vital Signs Temp 98.1 F 12/24/22 12:30 Pulse 83 12/24/22 12:30 Resp 16 12/24/22 12:30 BP 95/57 12/24/22 12:30 Pulse Ox 95 12/24/22 12:30 FiO2 Intake & Output 12/23/22 12/24/22 12/24/22 18:59 06:59 18:59 Intake Total 2440 100 Output Total 525 300 Balance 1915 -200 Intake: IV 420 Lactated Ringers 1,000 ml 320 @ 40 mls/hr IV .Q24H [facility] Rx#:[id number] Piperacillin-Tazobactam 3 100 .375 gm In Sodium Chloride 0.9% 100 ml @ 25 mls/hr IVPB Q8HR [facility] Rx# :[id number] Intake, IV Titration 1000 Amount Sodium Chloride 0.9% 1, 1000 000 ml @ 999 mls/hr IV . Q1H1M [facility] Rx#:[id number] Oral 1020 100 Output: Urine 525 300 Other: Voiding Method Indwelling Catheter Indwelling Catheter Indwelling Catheter - Exam GENERAL DESCRIPTION: An elderly male lying in bed in no distress RESPIRATORY SYSTEM: Unlabored breathing , decreased breath sounds at bases HEART: S1 S2 regular rate and rhythm , ABDOMEN: Soft , midline incision is intact , did have output in the colostomy bag EXTREMITIES: No edema feet - Labs CBC & Chem 7: 12/24/22 11:44 12/24/22 11:44 Labs: Abnormal Lab Results - Last 24 Hours (Table) 12/24/22 12/24/22 Range/Units 11:44 11:44 WBC 10.7 H (3.8-10.6) k/uL RBC 3.51 L (4.30-5.90) m/uL Hgb 9.6 L (13.0-17.5) gm/dL Hct 31.2 L (39.0-53.0) % MCHC 30.8 L (31.0-37.0) g/dL RDW 16.0 H (11.5-15.5) % Neutrophils # 9.4 H (1.3-7.7) k/uL Lymphocytes # 0.7 L (1.0-4.8) k/uL Glucose 112 H (74-99) mg/dL Calcium 8.2 L (8.4-10.2) mg/dL C-Reactive Protein 6.9 H (<1.0) mg/dL Assessment and Plan (1) Leukocytosis Current Visit: Yes Status: Acute Code(s): D72.829 - ELEVATED WHITE BLOOD CELL COUNT, UNSPECIFIED SNOMED Code(s): 836930213 (2) Evisceration of bowel Current Visit: Yes Status: Acute Code(s): AGS2879 - SNOMED Code(s): 89828498 Plan: 1patient presented to hospital with evisceration of the small bowel with a parastomal hernia in this patient who is status post laparotomy resection of the portion of ischemic bowel and takedown of the splenic flexure patient did have elevated white count however no documented perforation though ischemic bowel was slightly concerning and need to cover for the enteric gram-negative both aerobes and anaerobes 2-patient remains to be afebrile white count is currently at 10.8 thousand, patient chest x-ray with question of CHF versus left lower lobe infiltrate, patient CRP and pro calcitonin mildly elevated, to continue with the Zosyn and monitor clinical course closely
[2022-12-24] MEDS: TAMSULOSIN 0.4 MG CAP.ER.24H PO SCH (21:54)
[2022-12-25] MEDS: HEPARIN SODIUM,PORCINE/PF 5,000 UNIT/0.5 ML SYRINGE SQ SCH ×2 (00:30→08:59)
[2022-12-25] MEDS: PIPERACILLIN-TAZOBACTAM 3.375 GM in SODIUM CHLORIDE 0.9% 100 ML IVPB SCH ×2 (00:30→08:58)
[2022-12-25] MEDS: THIAMINE 100 MG TAB PO SCH (06:13)
[2022-12-25 08:14] LABS: Anisocytosis Slight; HCT 30.4 % (39.0-53.0); HGB 9.4 gm/dL (13.0-17.5); Hypochromasia Moderate; MCH 27.4 pg (25.0-35.0); MCHC 30.9 g/dL (31.0-37.0); MCV 88.6 fL (80.0-100.0); Mean Platelet Volume 8.5; Platelet Count 275 k/uL (150-450); RBC 3.44 m/uL (4.30-5.90); RDW 16.1 % (11.5-15.5); WBC 10.5 k/uL (3.8-10.6)
[2022-12-25] MEDS: AMIODARONE 200 MG TAB PO SCH (08:59)
[2022-12-25] MEDS: PANTOPRAZOLE 40 MG/10 ML VIAL IVP SCH (08:59)
[2022-12-25] MEDS: METOPROLOL SUCCINATE (ER) 25 MG TAB.ER.24H PO SCH (08:59)
[2022-12-25] MEDS ORDERED: FUROSEMIDE 20 MG TAB PO SCH ×2 (09:00→09:51)
[2022-12-25 09:10] VITALS: TEMP 98
[2022-12-25] MEDS: IPRATROPIUM-ALBUTEROL 3 ML NEB INHALATION SCH ×2 (09:27→12:35)
--- NOTE | 2022-12-25 09:57 | P.PN ---
Subjective Patient is a 87-year-old male with a known history of parastomal hernia and history of sigmoid colectomy and end colostomy. Apparently patient was sitting on the toilet and he lost his balance and slid forward and his noticed that his bowel had perforated through the stomal site. Patient underwent expiratory laparotomy and repair of parastomal hernia and partial colectomy. Colostomy in the right upper quadrant. Postoperatively patient was being monitored in the MICU. Patient is required pain management with Dilaudid and patient is currently nothing by mouth. Patient was hypotensive today afternoon and was given 200 cc fluid bolus with improvement in blood pressure. Otherwise patient denied any complaints of chest pain or shortness of breath. No nausea or vomiting or worsening abdominal pain. Currently requiring 2 L oxygen via nasal cannula. Laboratory showed WBC 16.1 hemoglobin 10.7 platelets 354 Sodium 138 potassium 5.2 chloride 105 bicarb is 24 BUN 38 and creatinine 1.12, AST 21 ALT 22 alk phos 135 and CRP 6.0 and albumin 2.6. Patient on antibiotics in the form of Zosyn. Continued on IV hydration with Ringer's lactate. 12/22/2022 This is a pleasant 87 years old male who was admitted for acute parastomal hernia with evisceration of the small bowel status post exploratory laparotomy and hernia repair and partial colectomy and colostomy. Patient today awake and alert, looks tired but relaxed. He has little shortness of breath but is improving. No leg edema. Carranza catheter placed. He has normal bowel movements with little gas however on examination his right lower quadrant colostomy bag is with small amount of brown stool. He is hemodynamically stable Hemoglobin stable 9.5, potassium 3.50 replaced per protocol Patient was on IV Lasix 1 g twice daily swish total dose Patient is continued on Zosyn 12/23/2022 Patient clinically the same as of yesterday, generally is doing well, is little sore in the abdomen about at the same time feels better He has little brown stool that his right lower quadrant colostomy back. No chest pain or dyspnea. No dizziness. Blood pressure is low normal, this morning 93/58. Patient is seen in bed most of the time. He is on low dose of metoprolol and amiodarone Potassium replaced He remains on Zosyn and Lasix is switched to oral dose 12/24/2022 Patient is awake alert, overall looks clinically, he is somewhat generally weak but this was his case since I saw him. He is in the bed most of the time. He has minimal abdominal pain which is expected at the surgical site colostomy back there is little brown stool in it. Surgery primary team are following him closely regarding this as well. Blood pressure was on the low side 95/48. He is asymptomatic we will admit, is sitting up in bed with no dizziness or other complaints. No chest pain or dyspnea. He received 1 L of normal saline this morning by primary team. Critical care team recommended to hold his diuretic but I'm going to lower his oral Lasix 20 mg twice daily to once daily. Heaviness on Zosyn as well His Carranza catheter was placed in the hospital. He was not on oxygen at home 12/25/2022 Patient generally doing well, he is awake alert, up in bed. Mentation at baseline and he answers questions appropriately and follow commands. Patient has mild tachypnea and mild coughing and mild tachycardia. Most likely secondary to the food received yesterday. Blood pressure is better today. Initially patient's blood pressure on low normal however patient is as symptomatic. Patient asked me to be discharged today. He denies any other complaint. Patient is mobile as well. Because of fluid overload with increased his Lasix back again to 20 mg twice daily. Patient could be continued to be diuresed as an inpatient as an outpatient Patient is medically stable for discharge once cleared by other consultants Objective - Vital Signs Vital signs: Vital Signs Temp 98 F 12/25/22 08:55 Pulse 115 H 12/25/22 09:36 Resp 16 12/25/22 08:55 BP 111/71 12/25/22 08:55 Pulse Ox 95 12/25/22 09:30 FiO2 Intake & Output 12/24/22 12/25/22 12/25/22 18:59 06:59 18:59 Intake Total 560 118 Output Total 1220 450 Balance -660 -450 118 Intake: Oral 560 118 Output: Urine 300 450 Stool 920 Other: Voiding Method Indwelling Catheter Indwelling Catheter - Exam GENERAL: The patient is alert and oriented x3, not in any acute distress. Well developed, well nourished. HEENT: Pupils are round and equally reacting to light. EOMI. No scleral icterus. No conjunctival pallor. Normocephalic, atraumatic. No pharyngeal erythema. No thyromegaly. CARDIOVASCULAR: S1 and S2 present. No murmurs, rubs, or gallops. PULMONARY: Chest is clear to auscultation, no wheezing or crackles. -ABDOMEN: Soft, nontender, nondistended, normoactive bowel sounds. No palpable organomegaly. Surgical wound closed and healing, dressing in a Place MUSCULOSKELETAL: No joint swelling or deformity. EXTREMITIES: No cyanosis, clubbing, or pedal edema. NEUROLOGICAL: Gross neurological examination did not reveal any focal deficits. SKIN: No rashes. no petechiae. - Labs CBC & Chem 7: 12/25/22 07:42 12/24/22 11:44 Labs: Abnormal Lab Results - Last 24 Hours (Table) 12/24/22 12/24/22 12/24/22 Range/Units 11:44 11:44 11:44 WBC 10.7 H (3.8-10.6) k/uL RBC 3.51 L (4.30-5.90) m/uL Hgb 9.6 L (13.0-17.5) gm/dL Hct 31.2 L (39.0-53.0) % MCHC 30.8 L (31.0-37.0) g/dL RDW 16.0 H (11.5-15.5) % Neutrophils # 9.4 H (1.3-7.7) k/uL Lymphocytes # 0.7 L (1.0-4.8) k/uL Glucose 112 H (74-99) mg/dL Calcium 8.2 L (8.4-10.2) mg/dL C-Reactive Protein 6.9 H (<1.0) mg/dL Procalcitonin 0.13 H (0.02-0.09) ng/mL 12/25/22 Range/Units 07:42 WBC (3.8-10.6) k/uL RBC 3.44 L (4.30-5.90) m/uL Hgb 9.4 L (13.0-17.5) gm/dL Hct 30.4 L (39.0-53.0) % MCHC 30.9 L (31.0-37.0) g/dL RDW 16.1 H (11.5-15.5) % Neutrophils # (1.3-7.7) k/uL Lymphocytes # (1.0-4.8) k/uL Glucose (74-99) mg/dL Calcium (8.4-10.2) mg/dL C-Reactive Protein (<1.0) mg/dL Procalcitonin (0.02-0.09) ng/mL Assessment and Plan Assessment: 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 Of parastomal hernia. Colostomy in the right upper quadrant. Postoperative day 3 History of colon perforation requiring colectomy and diverting colostomy and subsequent development of parastomal hernia. Acute on Chronic systolic CHF with dysfunction ejection fraction 20% Chronic small bilateral pleural effusion Chronic atrial fibrillation on anticoagulation with Eliquis at home Hypertension, currently he has borderline blood pressure Hyperlipidemia History of CVA BPH Plan: Continue with oral Lasix 20 mg twice a day. Continue with fluid restriction Continue with Zosyn Continue with lactulose Surgery team, pulmonary team and infectious disease team are on the case Labs and medication were reviewed.. Continue same treatment. Continue with symptomatic treatment. Resume home medication. Monitor labs and vitals. DVT and GI prophylaxis. Further recommendations as per clinical course of the patient DVT prophylaxis: Subcutaneous heparin GI Prophylaxis: Ppi PT/OT subacute rehab Prognosis is guarded Patient is medically stable for discharge once cleared by all consultants and primary surgery to
--- NOTE | 2022-12-25 11:28 | P.PN ---
Subjective Progress Note Date: 12/25/22 Principal diagnosis: Abdominal surgery. Reevaluated today on 12/20/2022, patient is now postoperative day #6. Patient is doing fairly well, does not seem to be in any distress, he is on 3 L nasal cannula and O2 sats is 97% no labs were done today, the labs from yesterday were reviewed and they seem to be basically unremarkable. Reevaluated today on 12/21/2022, patient is now postoperative day #7, continues to do well, no major issues he is on room air at 94% saturation. Chest x-ray showed a small left-sided pleural effusion and atelectasis not large enough to consider thoracentesis, patient is responding well to diuretics. WBC count is 12.2 hemoglobin is 7.7. Basic metabolic profile is normal, BUN is 21 creatinine 2.02, I will cut down on diuretics since his renal functioning is slightly worse Reevaluated today on 12/22/2022, he is now postoperative day #8, patient is basically awaiting placement. Pulmonary-diallo no major issues, patient seems to be very comfortable, he is on 3 L nasal cannula and his O2 sats is 100%. Blood pressure is stable 97/54 with a mean of 68, labs are unremarkable including WBC of 9.8 hemoglobin is 9.5. And his basic metabolic profile is basically unremarkable. Remains on diuretics, creatinine slightly up to 1.15. Will change his Lasix to 20 mg by mouth twice a day Reevaluated the patient today on 12/23/2022, patient is now postoperative day #9, apparently he had low blood pressure earlier, blood pressure was soft, however the patient was making good urine, and he was given fluid boluses, I went back to see the patient, blood pressure was 104/64, patient was not in any distress, is at bedside, patient is doing great, denies any cough wheezing shortness of breath denies any chest pain. His abdominal findings are benign. No evidence of surgical abdomen based on my examination. And I strongly doubt sepsis. Patient has been receiving diuretics for history of LV dysfunction congestive heart failure and left pleural effusion, follow-up chest x-ray after fluid bolus showed mild interstitial edema and small left pleural effusion. He is receiving fluids at 40 mL/h, and again clinically is not in any distress. I canceled transferring the patient to the ICU, and we'll continue to monitor on the cardiac floor labs today were unremarkable including normal basic metabolic profile, normal renal profile, serum cortisol level recently was 28 Progress note dated 12/24/2022. The patient is seen today in room 356. The patient is postop day #10. The patient's currently on 3 L of oxygen. He is receiving IV Zosyn. He looks relatively stable, but somewhat frail. White count 10.7, hemoglobin 9.6, hematocrit 31.2, and platelet count 289,000. Sodium 139, potassium 3.6, chlorides 102, CO2 29, BUN 18, creatinine 1.03. Calcium 8.2. C-reactive protein is 6.9. Cortisol level from yesterday was 19. Chest x-ray from yesterday was most consistent with CHF. Progress note dated 12/25/2022. The patient is seen today 356. The patient is postop day #11. The patient is currently on room air. He's not receiving any IV fluids. There was some discussion that the patient could be transferred to an outside usp. Laboratory data today includes a white count of 10.5, hemoglobin stable at 9.4, hematocrit 30.4, and a normal platelet count. The patient is feeling much better. From the pulmonary standpoint, the patient is stable, and could be considered for possible discharge. We will leave that up to the primary service, and the surgical team. Objective - Vital Signs Vital signs: Vital Signs Temp 98 F 12/25/22 08:55 Pulse 115 H 12/25/22 09:36 Resp 16 12/25/22 08:55 BP 111/71 12/25/22 08:55 Pulse Ox 95 12/25/22 09:30 FiO2 Intake & Output 12/24/22 12/25/22 12/25/22 18:59 06:59 18:59 Intake Total 560 118 Output Total 1220 450 Balance -660 -450 118 Intake: Oral 560 118 Output: Urine 300 450 Stool 920 Other: Voiding Method Indwelling Catheter Indwelling Catheter - Exam No acute distress, oriented 3. Weak and frail appearing. Currently on room air. HEENT examination is grossly unremarkable. Neck supple. Full range of motion. No adenopathy thyromegaly or neck vein distention. Cardiovascular examination reveals regular rhythm rate. S1-S2 normal. No S3 or S4. No discernible murmur noted. Heart rate 92 bpm. Lungs reveal scattered rhonchi. No wheezes or crackles. Breath sounds equal bilaterally. Room air saturation is 95%.. Abdomen soft, with limited bowel sounds. Ostomy looks to be intact. Incision site clean and dry. Extremities are intact. No cyanosis clubbing or edema. Skin is without rash or lesion. Neurologic examination is brief but nonfocal. - Labs CBC & Chem 7: 12/25/22 07:42 12/24/22 11:44 Labs: Abnormal Lab Results - Last 24 Hours (Table) 12/24/22 12/24/22 12/24/22 Range/Units 11:44 11:44 11:44 WBC 10.7 H (3.8-10.6) k/uL RBC 3.51 L (4.30-5.90) m/uL Hgb 9.6 L (13.0-17.5) gm/dL Hct 31.2 L (39.0-53.0) % MCHC 30.8 L (31.0-37.0) g/dL RDW 16.0 H (11.5-15.5) % Neutrophils # 9.4 H (1.3-7.7) k/uL Lymphocytes # 0.7 L (1.0-4.8) k/uL Glucose 112 H (74-99) mg/dL Calcium 8.2 L (8.4-10.2) mg/dL C-Reactive Protein 6.9 H (<1.0) mg/dL Procalcitonin 0.13 H (0.02-0.09) ng/mL 12/25/22 Range/Units 07:42 WBC (3.8-10.6) k/uL RBC 3.44 L (4.30-5.90) m/uL Hgb 9.4 L (13.0-17.5) gm/dL Hct 30.4 L (39.0-53.0) % MCHC 30.9 L (31.0-37.0) g/dL RDW 16.1 H (11.5-15.5) % Neutrophils # (1.3-7.7) k/uL Lymphocytes # (1.0-4.8) k/uL Glucose (74-99) mg/dL Calcium (8.4-10.2) mg/dL C-Reactive Protein (<1.0) mg/dL Procalcitonin (0.02-0.09) ng/mL Assessment and Plan Assessment: Acute parastomal hernia with evisceration of small bowel, status post laparotomy, repair of parastomal hernia, takedown of splenic flexure, partial colectomy and colostomy, postop day #11. History of perforated colon requiring colectomy and diverting colostomy with subsequent development of parastomal hernia. Severe cardiomyopathy with LV dysfunction. Chronic systolic CHF, with bilateral pleural effusion. Acute hypoxemic respiratory failure. History of deep vein thrombosis, and pulmonary embolism. Chronic atrial fibrillation. Benign essential hypertension. History of previous CVA with right-sided weakness. Plan: Plan dated 12/24/2022. The patient is seen today in room 356. He is sitting in a chair next to his bed. The patient continues on 3 L of oxygen. His saturations are 97% and his oxygen is titrated down to 2 L. Remains on Zosyn. Labs, x-rays, and medications are all reviewed. The patient's overall prognosis remains guarded. He appears to be very frail and weak. Will likely need some rehabilitation. We will continue to follow the patient, and make recommendations along the way. Plan dated 12/25/2022. The patient is seen again in room 356. He is laying in bed, and appears to be very comfortable. His been weaned off of oxygen. His saturations are 95%. He's not receiving any IV fluids. Labs, x-rays, medications are all reviewed. From the pulmonary standpoint, the patient is stable for possible discharge. We will leave that up to the primary service and the surgical team. Time with Patient: Less than 30
[2022-12-25] MEDS: LACTULOSE 20 GM/30 ML CUP PO SCH (12:44)
[2022-12-25] MEDS: FOLIC ACID 1 MG TAB PO SCH (12:44)
[2022-12-25] MEDS: MULTIVITAMINS, THERA 1 EACH TAB PO SCH (12:44)
[2022-12-25 12:52] VITALS: BP 91/61; PULSE 101; RESP 18
--- NOTE | 2022-12-25 13:44 | P.DS ---
Providers Date of admission: 12/14/22 14:17 Expected date of discharge: 12/25/22 Attending physician: Polo Amin Consults: 12/14/22 18:16 Consult Physician Stat Consulting Provider: Polo Amin Consult Reason/Comments: ICU Management Do you want consulting provider notified?: Yes 12/14/22 18:18 Consult Physician Urgent Consulting Provider: Toney Olivares Consult Reason/Comments: Sepsis Do you want consulting provider notified?: Yes 12/15/22 09:22 Consult Physician Routine Consulting Provider: Kameron De Santiago Consult Reason/Comments: Medical management Do you want consulting provider notified?: Yes Primary care physician: Eleuterio Dean Hospital Course: Discharge diagnosis 1. Parastomal hernia with evisceration status post exploratory laparotomy, repair of parastomal hernia, takedown of splenic flexure, partial colectomy and colostomy to right upper quadrant 2. Chronic systolic CHF with bilateral pleural effusions Hospital course This is a 87-year-old male with a known history of parastomal hernia. Patient was getting onto the toilet when the hernia ruptured and eviscerated approximately 3 feet of small bowel at the colostomy site. Patient is status post exploratory laparotomy, repair of parastomal hernia, takedown of splenic flexure, partial colectomy and colostomy to right upper quadrant. Patient tolerated surgery well. His pain is controlled. He has been up and ambulating with physical therapy. They recommend rehab for further physical therapy. Patient's ostomy is functioning. He is tolerating diet. He is afebrile. Patient also had some fluid overload during this admission and required IV Lasix. Patient also did have some hypotension. Which did improve after adjustment of medications and IV fluids. He is followed by pulmonary, medicine and infectious disease services. He has been cleared by consultants for discharge. Patient is stable for discharge. Please refer to chart for any further details. Physician Wet Trimmer note has been reviewed by physician. Signing provider agrees with the documented findings, assessment, and plan of care. Patient Condition at Discharge: Stable Plan - Discharge Summary Discharge Rx Participant: No New Discharge Prescriptions: New HYDROcodone/APAP 5-325MG [[place] 5-325] 1 tab PO Q6HR PRN 3 Days #12 tab PRN Reason: Pain Amoxic-Pot Clav 875-125Mg [Augmentin 875-125] 1 tab PO Q12HR 7 Days #14 tab polyethylene glycoL 3350 [Miralax] 17 gm PO DAILY #30 packet No Action Tamsulosin HCl [Flomax] 0.4 mg PO DAILY Pantoprazole Sodium [Protonix] 40 mg PO DAILY Metoprolol Succinate (ER) [Toprol XL] 25 mg PO DAILY tab Albuterol Inhaler [Ventolin Hfa Inhaler] 2 puff INHALATION RT-Q6H bisacodyL [Dulcolax] 10 mg RECTAL DAILY PRN PRN Reason: Constipation Ensure Enlive 237 ml PO TID@0800,1200,1700 Apixaban [Eliquis] 2.5 mg PO BID@0800,1700 Eucerin Advanced Repair Cream 1 applic TOPICAL DAILY Aspirin 81 mg PO DAILY@1200 Furosemide [Lasix] 20 mg PO DAILY #30 tab Na Phos,M-B/Na Phos,Di-Ba [Fleet Adult] 133 ml RECTAL DAILY PRN PRN Reason: Constipation Magnesium Hydroxide [Milk of Magnesia Concentrate] 7,200 mg PO Q48H PRN PRN Reason: Constipation Eucerin Advanced Repair Cream 1 applic TOPICAL DAILY PRN PRN Reason: Dry Skin Spironolactone [Aldactone] 25 mg PO DAILY #30 tab Dapagliflozin Propanediol [Farxiga] 10 mg PO DAILY #30 tab methylPREDNISolone Dose Pack [Medrol Dose Pack] See Taper PO DIRECTED Amiodarone [Cordarone] 200 mg PO BID@0800,1700 Discharge Medication List Tamsulosin HCl [Flomax] 0.4 mg PO DAILY 02/14/18 [History] Pantoprazole Sodium [Protonix] 40 mg PO DAILY 10/20/22 [History] Metoprolol Succinate (ER) [Toprol XL] 25 mg PO DAILY tab 10/24/22 [Rx] Albuterol Inhaler [Ventolin Hfa Inhaler] 2 puff INHALATION RT-Q6H 10/28/22 [His tory] Apixaban [Eliquis] 2.5 mg PO BID@0800,1700 10/28/22 [History] Aspirin 81 mg PO DAILY@1200 10/28/22 [History] Ensure Enlive 237 ml PO TID@0800,1200,1700 10/28/22 [History] Eucerin Advanced Repair Cream 1 applic TOPICAL DAILY 10/28/22 [History] Eucerin Advanced Repair Cream 1 applic TOPICAL DAILY PRN 10/28/22 [History] Magnesium Hydroxide [Milk of Magnesia Concentrate] 7,200 mg PO Q48H PRN 10/28/22 [History] Na Phos,M-B/Na Phos,Di-Ba [Fleet Adult] 133 ml RECTAL DAILY PRN 10/28/22 [History] bisacodyL [Dulcolax] 10 mg RECTAL DAILY PRN 10/28/22 [History] Dapagliflozin Propanediol [Farxiga] 10 mg PO DAILY #30 tab 11/06/22 [Rx] Furosemide [Lasix] 20 mg PO DAILY #30 tab 11/06/22 [Rx] Spironolactone [Aldactone] 25 mg PO DAILY #30 tab 11/06/22 [Rx] Amiodarone [Cordarone] 200 mg PO BID@0800,1700 12/14/22 [History] methylPREDNISolone Dose Pack [Medrol Dose Pack] See Taper PO DIRECTED 12/14/22 [History] Amoxic-Pot Clav 875-125Mg [Augmentin 875-125] 1 tab PO Q12HR 7 Days #14 tab 12/25/22 [Rx] HYDROcodone/APAP 5-325MG [[place] 5-325] 1 tab PO Q6HR PRN 3 Days #12 tab 12/25/22 [Rx] polyethylene glycoL 3350 [Miralax] 17 gm PO DAILY #30 packet 12/25/22 [Rx] Follow up Appointment(s)/Referral(s): Toney Olivares MD [STAFF PHYSICIAN] - 1 Week Polo Amin MD [STAFF PHYSICIAN] - 1 Week Activity/Diet/Wound Care/Special Instructions: Medicine service to complete discharge med rec Cleanse coccyx with NS and apply an optifoam dressing. Change every 3 days or PRN. Cleanse right thigh with NS and apply an optifoam dressing. Change every 3 days or PRN. Apply Zinc paste to scrotal wound. No driving while taking [place] No lifting over 10 pounds Shower daily. No soaking or tub baths for 2 weeks Very light activity until you are reevaluated at your follow up appointment with your surgeon Discharge Disposition: TRANSFER TO SNF/ECF
[2022-12-25 14:26] VITALS: BMI 21.2
[2022-12-25] MEDS: HYDROcodone/APAP 5-325MG 1 EACH TAB PO PRN (15:59)
== END 2022-12-25 16:04 | DRG 329 ==
LOC: OR 13:55 → 4SSUR 14:17 → 2SICU 16:45 → 3SCARD 12-15 17:40
PROVIDERS: ADMIT Surgery; ATTEND Surgery
PROC: 0WQF0ZZ Repair Abdominal Wall, Open Approach (ICD-10-PCS; principal; 2022-12-14 10:25)
PROC: 0D1E0Z4 Bypass Large Intestine to Cutaneous, Open Approach (ICD-10-PCS; principal; 2022-12-14 10:25)
PROC: 0DTE0ZZ Resection of Large Intestine, Open Approach (ICD-10-PCS; principal; 2022-12-14 10:25)
DX: K43.5 Parastomal hernia without obstruction or gangrene (principal); I50.23 Acute on chronic systolic (congestive) heart failure; J96.01 Acute respiratory failure with hypoxia; E46 Unspecified protein-calorie malnutrition; I42.9 Cardiomyopathy, unspecified; I48.20 Chronic atrial fibrillation, unspecified; I69.351 Hemiplegia and hemiparesis following cerebral infarction affecting right dominant side; J98.11 Atelectasis; T79.7XXA Traumatic subcutaneous emphysema, initial encounter; I47.1 Supraventricular tachycardia; E78.5 Hyperlipidemia, unspecified; I95.9 Hypotension, unspecified; I11.0 Hypertensive heart disease with heart failure; I69.328 Other speech and language deficits following cerebral infarction; L89.152 Pressure ulcer of sacral region, stage 2; L89.620 Pressure ulcer of left heel, unstageable; L89.892 Pressure ulcer of other site, stage 2; Z79.82 Long term (current) use of aspirin; Z79.01 Long term (current) use of anticoagulants; Z79.84 Long term (current) use of oral hypoglycemic drugs; Z79.899 Other long term (current) drug therapy; Z86.711 Personal history of pulmonary embolism; Z86.718 Personal history of other venous thrombosis and embolism; Z87.19 Personal history of other diseases of the digestive system; Z98.1 Arthrodesis status; Z28.311 Partially vaccinated for COVID-19; Z20.822 Contact with and (suspected) exposure to COVID-19; Z71.3 Dietary counseling and surveillance; Z86.010 Personal history of colon polyps; Z90.49 Acquired absence of other specified parts of digestive tract; Z87.891 Personal history of nicotine dependence
CPT/HCPCS: 71045; 71046; 76604; 80048; 80053; 82533; 83735; 84132; 84145; 85025; 85027; 85610; 85730; 86140; 86850; 86900; 86901; 87635; 88307; 94640; 94760; 99285

== ENCOUNTER 2023-01-09 18:11 | Inpatient (IN) | payer MEDICARE ==
[2023-01-09] MEDS ORDERED: SODIUM CHLORIDE 0.9% 500 ML 500 ML IV STA (19:06)
[2023-01-09 19:11] LABS: Appearance,Urine Cloudy (Clear); Bilirubin,Urine Negative (Negative); Blood,Urine Moderate (Negative); Budding Yeast,Urine Few /hpf; Color,Urine Yellow; Glucose,Urine (UA) 3+ (Negative); Hyaline Casts,Urine 3 /lpf (0-2); Ketones,Urine Negative (Negative); Leukocyte Esterase,Urine Large (Negative); Mucus,Urine Moderate /hpf; Nitrite,Urine Negative (Negative); PH, Urine 5.5 (5.0-8.0); Protein,Urine 1+ (Negative); RBC,Urine 103 /hpf (0-5); Specific Gravity,Urine 1.017 (1.001-1.035); Urobilinogen,Urine <2.0 mg/dL (<2.0); WBC,Urine >182 /hpf (0-5)
[2023-01-09] MEDS ORDERED: cefTRIAXone IN SWFI 1,000 MG/10 ML SYRINGE IVP STA (19:54)
--- NOTE | 2023-01-09 19:59 | XR ---
EXAMINATION TYPE: XR chest 2V DATE OF EXAM: 01/09/2023 COMPARISON: Chest x-ray December 23, 2022 HISTORY: Cough and fever. TECHNIQUE: Frontal and lateral views of the chest are obtained. FINDINGS: There is persisting cardiomegaly with small to moderate size left pleural effusion. Backg round chronic parenchymal change bilaterally. Right lung remains clear. The osseous structures are de mineralized. Advanced degenerative change right glenohumeral joint is redemonstrated IMPRESSION: Chronic changes and cardiomegaly with small to moderate size left pleural effusion redem onstrated. No significant change from prior.
--- NOTE | 2023-01-09 20:03 | XR ---
EXAMINATION TYPE: XR foot complete LT DATE OF EXAM: 01/09/2023 CLINICAL HISTORY: Wound and fever. TECHNIQUE: Frontal, lateral, and oblique images of the left foot are obtained. COMPARISON: None FINDINGS: Osseous structures are demineralized which is noted to lower radiographic sensitivity. Mode rate diffuse soft tissue swelling is seen. Flexion in the toes is noted which limits evaluation at t his level. No acute displaced fracture. Severe narrowing at the first interphalangeal joint and moder [id number] narrowing at the first metatarsophalangeal joint. No obvious bony destruction to sugges t acute osteomyelitis. IMPRESSION: As above.
[2023-01-09 20:14] LABS: Anisocytosis Slight; Basophils % (A) 0 %; Eosinophils % (A) 0 %; HCT 30.6 % (39.0-53.0); HGB 9.6 gm/dL (13.0-17.5); Hypochromasia Slight; Lymphocytes # (A) 0.8 k/uL (1.0-4.8); Lymphocytes % (A) 7 %; MCH 27.5 pg (25.0-35.0); MCHC 31.5 g/dL (31.0-37.0); MCV 87.2 fL (80.0-100.0); Mean Platelet Volume 7.6; Monocytes # (A) 0.4 k/uL (0-1.0); Monocytes % (A) 3 %; Neutrophils # (A) 10.5 k/uL (1.3-7.7); Neutrophils % (A) 89 %; Platelet Count 363 k/uL (150-450); RBC 3.51 m/uL (4.30-5.90); RDW 16.8 % (11.5-15.5); WBC 11.8 k/uL (3.8-10.6)
[2023-01-09 20:23] LABS: Albumin 2.6 g/dL (3.5-5.0); Calcium 8.1 mg/dL (8.4-10.2); Total Bilirubin 0.6 mg/dL (0.2-1.3); Total Protein 6.4 g/dL (6.3-8.2)
[2023-01-09] MEDS ORDERED: CLINDAMYCIN 600 MG in DEXTROSE 5% IN WATER 50 ML IVPB STA ×2 (22:07)
[2023-01-09] MEDS ORDERED: NALOXONE 0.4 MG/ML 1 ML VIAL IV PRN (22:23)
[2023-01-09] MEDS ORDERED: IBUPROFEN 400 MG TAB PO PRN (22:23)
[2023-01-09] MEDS ORDERED: SODIUM CHLORIDE 0.9% 1,000 ML IV SCH (22:30)
--- NOTE | 2023-01-09 22:31 | ED ---
Recheck HPI - General Chief Complaint: Recheck/Abnormal Lab/Rx Stated Complaint: rule out sepsis Time Seen by Provider: 01/09/23 18:56 Source: patient Mode of arrival: ambulatory Limitations: no limitations - History of Present Illness Initial Comments: Patient is an 87-year-old male presenting from [facility] with chief complaint of fever. Patient is pleasantly confused and is at bedside to supplement history. He is recently getting over a cough and congestion. Patient does have pre-existing wound to the left foot, is unsure how often he gets wound care at the retirement, there is some increasing redness. Denies any chest pain, difficulty breathing, abdominal pain, nausea, vomiting, hematuria, hematochezia, melena. - Related Data Home Medications Medication Instructions Recorded Confirmed Tamsulosin HCl [Flomax] 0.4 mg PO DAILY@0800 02/14/18 01/09/23 Pantoprazole Sodium [Protonix] 40 mg PO DAILY@0600 10/20/22 01/09/23 Albuterol Inhaler [Ventolin Hfa 2 puff INHALATION RT-Q6H 10/28/22 01/09/23 Inhaler] Apixaban [Eliquis] 2.5 mg PO BID@0800,1700 10/28/22 01/09/23 Aspirin 81 mg PO DAILY@1200 10/28/22 01/09/23 Ensure Enlive 237 ml PO TID@0800,1200,1700 10/28/22 01/09/23 Eucerin Advanced Repair Cream 1 applic TOPICAL DAILY 10/28/22 01/09/23 Eucerin Advanced Repair Cream 1 applic TOPICAL DAILY PRN 10/28/22 01/09/23 Magnesium Hydroxide [Milk of 7,200 mg PO Q48H PRN 10/28/22 01/09/23 Magnesia Concentrate] Na Phos,M-B/Na Phos,Di-Ba [Fleet 133 ml RECTAL DAILY PRN 10/28/22 01/09/23 Adult] bisacodyL [Dulcolax] 10 mg RECTAL DAILY PRN 10/28/22 01/09/23 Amiodarone [Cordarone] 200 mg PO BID@0800,1700 12/14/22 01/09/23 Collagenase [Santyl Ointment] 1 applic TOPICAL DAILY 01/09/23 01/09/23 Dapagliflozin Propanediol [Farxiga] 10 mg PO DAILY@0800 01/09/23 01/09/23 Ferrous Sulfate [Feosol] 325 mg PO DAILY@1700 01/09/23 01/09/23 Furosemide [Lasix] 20 mg PO BID@0800,1700 01/09/23 01/09/23 Lactulose 30 gm PO DAILY@0800 01/09/23 01/09/23 Metoprolol Succinate (ER) [Toprol 12.5 mg PO DAILY@0800 01/09/23 01/09/23 XL] Multivitamins, Thera [Multivitamin 1 tab PO DAILY@1200 01/09/23 01/09/23 (formulary)] Spironolactone [Aldactone] 25 mg PO DAILY@0800 01/09/23 01/09/23 Thiamine [Vitamin B-1] 100 mg PO BID@0800,1700 01/09/23 01/09/23 polyethylene glycoL 3350 [Miralax] 17 gm PO DAILY@0800 01/09/23 01/09/23 Previous Rx's Medication Instructions Recorded Folic Acid 1 mg PO DAILY@1200 tab 12/25/22 HYDROcodone/APAP 5-325MG [[place] 1 tab PO Q6HR PRN 3 Days #12 tab 12/25/22 5-325] Allergies Allergy/AdvReac Type Severity Reaction Status Date / Time memantine [From Namenda] AdvReac Nausea & Verified 01/09/23 21:42 Vomiting & Diarrhea Review of Systems ROS Statement: Those systems with pertinent positive or pertinent negative responses have been documented in the HPI. ROS Other: All systems not noted in ROS Statement are negative. 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 History of Any Multi-Drug Resistant Organisms: None Reported Past Surgical History: Bowel Resection Additional Past Surgical History / Comment(s): 2020 bowel resection/colostomy, CVA in 1956 which made need for R elbow surgery/R ankle fusion, post cva surgery on back to remove blood clot, bilateral eye lens implants. Past Anesthesia/Blood Transfusion Reactions: No Reported Reaction Additional Past Anesthesia/Blood Transfusion Reaction / Comment(s): Pt believes he has received blood in past without reaction. Past Psychological History: No Psychological Hx Reported Smoking Status: Former smoker Past Alcohol Use History: None Reported Past Drug Use History: None Reported - Past Family History Mother Family Medical History: Dementia Additional Family Medical History / Comment(s): ALZHEIMERS Father Family Medical History: No Reported History Additional Family Medical History / Comment(s): Pt states his father was healthy General Exam Limitations: altered mental status General appearance: alert, in no apparent distress Head exam: Present: atraumatic, normocephalic, normal inspection Eye exam: Present: normal appearance, EOMI. Absent: scleral icterus, periorbital swelling Neck exam: Present: normal inspection, full ROM Respiratory exam: Present: normal lung sounds bilaterally. Absent: respiratory distress, wheezes, rales, rhonchi, stridor Cardiovascular Exam: Present: regular rate, normal rhythm, normal heart sounds. Absent: systolic murmur, diastolic murmur, rubs, gallop, clicks Neurological exam: Present: alert, altered (Baseline) Psychiatric exam: Present: normal affect, normal mood Skin exam: Present: other (Wounds to the left foot) Course Vital Signs 01/09/23 18:37 Temperature 97.9 F Pulse Rate 78 Respiratory 18 Rate Blood Pressure 100/50 O2 Sat by Pulse 97 Oximetry Medical Decision Making - Medical Decision Making Was pt. sent in by a medical professional or institution (, PA, COMPRESSOR MECHANIC, urgent care, hospital, or retirement...) When possible be specific @ -Sent in from retirement Did you speak to anyone other than the patient for history (EMS, parent, family, police, friend...)? What history was obtained from this source @ -History supplemented by Did you review nursing and triage notes (agree or disagree)? Why? @ -I reviewed and agree with nursing and triage notes Were old charts reviewed (outside hosp., previous admission, EMS record, old EKG, old radiological studies, urgent care reports/EKG's, retirement records)? Report findings @ -No old charts were reviewed Differential Diagnosis (chest pain, altered mental status, abdominal pain women, abdominal pain men, vaginal bleeding, weakness, fever, dyspnea, syncope, headache, dizziness, GI bleed, back pain, seizure, CVA, palpatations, mental health, musculoskeletal)? @ - MDM Differential Fever: Pneumonia, viral URI, endocarditis, myocarditis, pericarditis, otitis, sinusitis, peritonsillar Abscess, retropharyngeal Abscess, epiglottitis, peritonitis, appendicitis, [place] cystitis, diverticulitis, hepatitis, colitis, U TI, PID, TOA, pyelonephritis, prostatitis, epididymitis, meningitis, encephalitis, pulmonary embolism, CVA, thyroid storm, pancreatitis, adrenal crisis, cavernous sinus thrombosis this is not meant to be an all-inclusive list. EKG interpreted by me (3pts min.). @ -As above X-rays interpreted by me (1pt min.). @ -Chest x-ray shows chronic changes and cardiomegaly with small to moderate- sized left pleural effusion redemonstrated. No significant change from prior. Foot x-ray shows no obvious bony destruction to suggest osteomyelitis. No acute fracture. CT interpreted by me (1pt min.). @ -None done U/S interpreted by me (1pt. min.). @ -None done What testing was considered but not performed or refused? (CT, X-rays, U/S, labs)? Why? @ -None What meds were considered but not given or refused? Why? @ -None Did you discuss the management of the patient with other professionals (professionals i.e. , PA, COMPRESSOR MECHANIC, lab, RT, psych nurse, social security benefits interviewer, radiologic technology teacher, teacher, security officers and guards, binder caser)? Give summary @ -Spoke with Dr. Houser who accepted admission Was smoking cessation discussed for >3mins.? @ -No Was critical care preformed (if so, how long)? @ -No Were there social determinants of health that impacted care today? How? (Homelessness, low income, unemployed, alcoholism, drug addiction, transportation, low edu. Level, literacy, decrease access to med. care, halfway, rehab)? @ -No Was there de-escalation of care discussed even if they declined (Discuss DNR or withdrawal of care, Hospice)? DNR status @ -No What co-morbidities impacted this encounter? (DM, HTN, Smoking, COPD, CAD, Cancer, CVA, ARF, Chemo, Hep., AIDS, mental health diagnosis, sleep apnea, morbid obesity)? @ -None Was patient admitted / discharged? Hospital course, mention meds given and route, prescriptions, significant lab abnormalities, going to OR and other pertinent info. @ -Patient is an 87-year-old male presenting from retirement with chief complaint of fever. On physical examination there are wounds to the left foot. WBC 11.8. Urine shows evidence of UTI. Patient is treated with Rocephin. Patient is negative for influenza, RSV, and Covid. Foot x-rays negative for osteomyelitis. Chest x-ray shows no acute changes from previous. Patient is given clindamycin for possible cellulitis due to chronic foot wound. Patient will be admitted. I spoke with Dr. Houser who accepted admission. Patient and family are agreeable with this plan. I discussed this case with my attending Dr. Arce. Undiagnosed new problem with uncertain prognosis? @ -No Drug Therapy requiring intensive monitoring for toxicity (Heparin, Nitro, Insulin, Cardizem)? @ -No Were any procedures done? @ -No Diagnosis/symptom? @ -UTI Acute, or Chronic, or Acute on Chronic? @ -Acute Uncomplicated (without systemic symptoms) or Complicated (systemic symptoms)? @ -Complicated Side effects of treatment? @ -No Exacerbation, Progression, or Severe Exacerbation? @ -No Poses a threat to life or bodily function? How? (Chest pain, [place], [place], pneumonia, PE, COPD, DKA, ARF, appy, cholecystitis, CVA, Diverticulitis, Homicidal, Suicidal, threat to staff... and all critical care pts) @ -Potentially - Lab Data Result diagrams: 01/09/23 20:00 01/09/23 20:00 Lab Results 01/09/23 01/09/23 01/09/23 Range/Units 18:46 20:00 20:00 WBC 11.8 H (3.8-10.6) k/uL RBC 3.51 L (4.30-5.90) m/uL Hgb 9.6 L (13.0-17.5) gm/dL Hct 30.6 L (39.0-53.0) % MCV 87.2 (80.0-100.0) fL MCH 27.5 (25.0-35.0) pg MCHC 31.5 (31.0-37.0) g/dL RDW 16.8 H (11.5-15.5) % Plt Count 363 (150-450) k/uL MPV 7.6 Neutrophils % 89 % Lymphocytes % 7 % Monocytes % 3 % Eosinophils % 0 % Basophils % 0 % Neutrophils # 10.5 H (1.3-7.7) k/uL Lymphocytes # 0.8 L (1.0-4.8) k/uL Monocytes # 0.4 (0-1.0) k/uL Eosinophils # 0.0 (0-0.7) k/uL Basophils # 0.0 (0-0.2) k/uL Hypochromasia Slight Anisocytosis Slight Sodium 134 L (137-145) mmol/L Potassium 4.0 (3.5-5.1) mmol/L Chloride 99 (98-107) mmol/L Carbon Dioxide 25 (22-30) mmol/L Anion Gap 10 mmol/L BUN 20 (9-20) mg/dL Creatinine 1.24 (0.66-1.25) mg/dL Est GFR (CKD-EPI)AfAm 60 (>60 ml/min/1.73 sqM) Est GFR (CKD-EPI)NonAf 52 (>60 ml/min/1.73 sqM) Glucose 106 H (74-99) mg/dL Plasma Lactic Acid Santosh (0.7-2.0) mmol/L Calcium 8.1 L (8.4-10.2) mg/dL Total Bilirubin 0.6 (0.2-1.3) mg/dL AST 30 (17-59) U/L ALT 27 (4-49) U/L Alkaline Phosphatase 168 H (38-126) U/L Total Protein 6.4 (6.3-8.2) g/dL Albumin 2.6 L (3.5-5.0) g/dL Urine Color Yellow Urine Appearance Cloudy (Clear) Urine pH 5.5 (5.0-8.0) Ur Specific [place] 1.017 (1.001-1.035) Urine Protein 1+ H (Negative) Urine Glucose (UA) 3+ H (Negative) Urine Ketones Negative (Negative) Urine Blood Moderate H (Negative) Urine Nitrite Negative (Negative) Urine Bilirubin Negative (Negative) Urine Urobilinogen <2.0 (<2.0) mg/dL Ur Leukocyte Esterase Large H (Negative) Urine RBC 103 H (0-5) /hpf Urine WBC >182 H (0-5) /hpf Urine WBC Clumps Many H (None) /hpf Hyaline Casts 3 H (0-2) /lpf Urine Mucus Moderate H (None) /hpf Urine Yeast (Budding) Few H (None) /hpf Influenza Type A (PCR) (Not Detectd) Influenza Type B (PCR) (Not Detectd) RSV (PCR) (Not Detectd) SARS-CoV-2 (PCR) (Not Detectd) 01/09/23 01/09/23 Range/Units 20:00 20:07 WBC (3.8-10.6) k/uL RBC (4.30-5.90) m/uL Hgb (13.0-17.5) gm/dL Hct (39.0-53.0) % MCV (80.0-100.0) fL MCH (25.0-35.0) pg MCHC (31.0-37.0) g/dL RDW (11.5-15.5) % Plt Count (150-450) k/uL MPV Neutrophils % % Lymphocytes % % Monocytes % % Eosinophils % % Basophils % % Neutrophils # (1.3-7.7) k/uL Lymphocytes # (1.0-4.8) k/uL Monocytes # (0-1.0) k/uL Eosinophils # (0-0.7) k/uL Basophils # (0-0.2) k/uL Hypochromasia Anisocytosis Sodium (137-145) mmol/L Potassium (3.5-5.1) mmol/L Chloride (98-107) mmol/L Carbon Dioxide (22-30) mmol/L Anion Gap mmol/L BUN (9-20) mg/dL Creatinine (0.66-1.25) mg/dL Est GFR (CKD-EPI)AfAm (>60 ml/min/1.73 sqM) Est GFR (CKD-EPI)NonAf (>60 ml/min/1.73 sqM) Glucose (74-99) mg/dL Plasma Lactic Acid Santosh 1.1 (0.7-2.0) mmol/L Calcium (8.4-10.2) mg/dL Total Bilirubin (0.2-1.3) mg/dL AST (17-59) U/L ALT (4-49) U/L Alkaline Phosphatase (38-126) U/L Total Protein (6.3-8.2) g/dL Albumin (3.5-5.0) g/dL Urine Color Urine Appearance (Clear) Urine pH (5.0-8.0) Ur Specific [place] (1.001-1.035) Urine Protein (Negative) Urine Glucose (UA) (Negative) Urine Ketones (Negative) Urine Blood (Negative) Urine Nitrite (Negative) Urine Bilirubin (Negative) Urine Urobilinogen (<2.0) mg/dL Ur Leukocyte Esterase (Negative) Urine RBC (0-5) /hpf Urine WBC (0-5) /hpf Urine WBC Clumps (None) /hpf Hyaline Casts (0-2) /lpf Urine Mucus (None) /hpf Urine Yeast (Budding) (None) /hpf Influenza Type A (PCR) Not Detected (Not Detectd) Influenza Type B (PCR) Not Detected (Not Detectd) RSV (PCR) Not Detected (Not Detectd) SARS-CoV-2 (PCR) Not Detected (Not Detectd) Disposition Clinical Impression: UTI (urinary tract infection), Pressure ulcer Disposition: ADMITTED IP TO THIS [facility] Condition: Fair Referrals: Josh Mcallister MD [Primary Care Provider] - 1-2 days Time of Disposition: 22:32
[2023-01-10] MEDS: ACETAMINOPHEN TAB 325 MG TAB PO PRN (08:44)
[2023-01-10] MEDS ORDERED: SODIUM CHLORIDE 0.9% 500 ML 500 ML IV ONE (09:05)
[2023-01-10] MEDS ORDERED: bisacodyL 10 MG SUPP RECTAL PRN (09:54)
[2023-01-10] MEDS ORDERED: HYDROcodone/APAP 5-325MG 1 EACH TAB PO PRN (09:54)
[2023-01-10] MEDS ORDERED: MAGNESIUM HYDROXIDE 2,400 MG/10 ML CUP PO PRN (09:54)
[2023-01-10] MEDS: METOPROLOL SUCCINATE (ER) 25 MG TAB.ER.24H PO SCH (10:12)
[2023-01-10] MEDS: SODIUM CHLORIDE 0.9% 1,000 ML IV SCH ×2 (10:13→16:32)
[2023-01-10] MEDS: ASPIRIN 81 MG PO SCH (11:14)
[2023-01-10] MEDS: PANTOPRAZOLE 40 MG TABLET PO SCH (11:14)
[2023-01-10] MEDS: MULTIVITAMINS, THERA 1 EACH TAB PO SCH (11:14)
[2023-01-10] MEDS: FOLIC ACID 1 MG TAB PO SCH (11:15)
[2023-01-10 11:16] VITALS: BMI 19.0
[2023-01-10] MEDS: AMIODARONE 200 MG TAB PO SCH (17:33)
[2023-01-10] MEDS: THIAMINE 100 MG TAB PO SCH (18:08)
[2023-01-10] MEDS: APIXABAN 2.5 MG TABLET PO SCH (18:08)
[2023-01-10] MEDS: CEFEPIME 2 GM in SODIUM CHLORIDE 0.9% 100 ML IVPB SCH (18:08)
[2023-01-10] MEDS: FUROSEMIDE 20 MG TAB PO SCH (18:08)
--- NOTE | 2023-01-10 22:04 | P.CONS ---
History of Present Illness - Reason for Consult Consult date: 01/10/23 Fever Requesting physician: Mimi Reeder - Chief Complaint Fever x one day - History of Present Illness Patient is a 87-year-old male with multiple comorbidities recent admission to the hospital with evisceration of his stoma status post surgical repair of the same and the patient was subsequently transferred to the local intermediate for rehab patient has not been sent to the ER last evening for evaluation of fever apparently the patient symptoms started the day of presentation to the hospital patient on arrival to the ER was afebrile he did have a fever 100.3 this morning patient was not hypoxic or need for any supplemental oxygen did have WBC of 11.8 with a left shift creatinine has been normal liver enzymes are normal he did have a positive UA with more than 1-2 WBC influenza RSV and COVID testing was negative patient did have a chest x-ray chr onic changes cardiomegaly with small to moderate left effusion patient noticed to have a wound to the left foot x-rays of the foot did not show any bony abnormality patient was started on cefazolin subsequently blood cultures coming positive gram-negative bacilli infectious disease was consulted for further management of antibiotic therapy patient did have a chronic indwelling Carranza catheter he is not very clear if the Carranza catheter has been changed since presentation to the hospital patient currently is more awake alert he is breathing comfortably on room air denies any chest pain or shortness with occasional cough which is dry in nature denies any abdominal pain no nausea vomiting or diarrhea Review of Systems Positive point and negatives has been mentioned in the HPI, complete review of systems was performed and all other systems are negative Past Medical History Past Medical History: Atrial Fibrillation, CVA/TIA, Deep Vein Thrombosis (DVT), Hyperlipidemia, Hypertension, Prostate Disorder, Pulmonary Embolus (PE), Supraventricular Tachycardia (SVT) Additional Past Medical History / Comment(s): 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 History of Any Multi-Drug Resistant Organisms: None Reported Past Surgical History: Bowel Resection Additional Past Surgical History / Comment(s): 2020 bowel resection/colostomy, CVA in 1955 which made need for R elbow surgery/R ankle fusion, post cva surgery on back to remove blood clot, bilateral eye lens implants. Past Anesthesia/Blood Transfusion Reactions: No Reported Reaction Additional Past Anesthesia/Blood Transfusion Reaction / Comm: Pt believes he has received blood in past without reaction. Past Psychological History: No Psychological Hx Reported Additional Psychological History / Comment(s): Pt lives at [facility], Smoking Status: Former smoker Past Alcohol Use History: None Reported Additional Past Alcohol Use History / Comment(s): Pt started smoking a pipe in 1967 and quit in 1995. Past Drug Use History: None Reported - Past Family History Mother Family Medical History: Dementia Additional Family Medical History / Comment(s): ALZHEIMERS Father Family Medical History: No Reported History Additional Family Medical History / Comment(s): Pt states his father was healthy Medications and Allergies Home Medications Medication Instructions Recorded Confirmed Type Tamsulosin HCl [Flomax] 0.4 mg PO DAILY@0800 02/14/18 01/09/23 History Pantoprazole Sodium [Protonix] 40 mg PO DAILY@0600 10/20/22 01/09/23 History Albuterol Inhaler [Ventolin Hfa 2 puff INHALATION RT-Q6H 10/28/22 01/09/23 History Inhaler] Apixaban [Eliquis] 2.5 mg PO BID@0800,1700 10/28/22 01/09/23 History Aspirin 81 mg PO DAILY@1200 10/28/22 01/09/23 History Ensure Enlive 237 ml PO TID@0800,1200,1700 10/28/22 01/09/23 History Eucerin Advanced Repair Cream 1 applic TOPICAL DAILY 10/28/22 01/09/23 History Eucerin Advanced Repair Cream 1 applic TOPICAL DAILY PRN 10/28/22 01/09/23 History Magnesium Hydroxide [Milk of 7,200 mg PO Q48H PRN 10/28/22 01/09/23 History Magnesia Concentrate] Na Phos,M-B/Na Phos,Di-Ba [Fleet 133 ml RECTAL DAILY PRN 10/28/22 01/09/23 Hist ory Adult] bisacodyL [Dulcolax] 10 mg RECTAL DAILY PRN 10/28/22 01/09/23 History Amiodarone [Cordarone] 200 mg PO BID@0800,1700 12/14/22 01/09/23 History Folic Acid 1 mg PO DAILY@1200 tab 12/25/22 01/09/23 Rx HYDROcodone/APAP 5-325MG [[place] 1 tab PO Q6HR PRN 3 Days #12 tab 12/25/22 Rx 5-325] Collagenase [Santyl Ointment] 1 applic TOPICAL DAILY 01/09/23 01/09/23 History Dapagliflozin Propanediol [Farxiga] 10 mg PO DAILY@0800 01/09/23 01/09/23 History Ferrous Sulfate [Iron (65 MG 325 mg PO DAILY@1700 01/09/23 01/09/23 History Elemental)] Furosemide [Lasix] 20 mg PO BID@0800,1700 01/09/23 01/09/23 History Lactulose 30 gm PO DAILY@0800 01/09/23 01/09/23 History Metoprolol Succinate (ER) [Toprol 12.5 mg PO DAILY@0800 01/09/23 01/09/23 History XL] Multivitamins, Thera [Multivitamin 1 tab PO DAILY@1200 01/09/23 01/09/23 History (formulary)] Spironolactone [Aldactone] 25 mg PO DAILY@0800 01/09/23 01/09/23 History Thiamine [Vitamin B-1] 100 mg PO BID@0800,1700 01/09/23 01/09/23 History polyethylene glycoL 3350 [Miralax] 17 gm PO DAILY@0800 01/09/23 01/09/23 History Cefepime [Maxipime] 2 gm IVPB Q12H #84 each 01/18/23 Rx HYDROcodone/APAP 5-325MG [[place] 1 each PO Q6HR PRN 3 Days #9 tab 01/18/23 Rx 5-325] Vancomycin/Water For Inj (Peg) 1,250 mg IV DAILY #42 each 01/18/23 Rx [Vancomycin 750 mg/150 ml Bag] metroNIDAZOLE [Flagyl] 500 mg PO TID #90 tab 01/18/23 Rx Allergies Allergy/AdvReac Type Severity Reaction Status Date / Time memantine [From Namenda] AdvReac Nausea & Verified 01/09/23 21:42 Vomiting & Diarrhea Physical Exam Vitals: Vital Signs Temp Pulse Pulse Resp BP BP BP 01/10/23 10:09 98.1 F 85 88/48 01/10/23 08:30 60 91/46 01/10/23 07:25 100.3 F H 64 15 79/41 82/41 01/10/23 04:09 98.6 F 76 18 118/51 01/10/23 01:24 98.1 F 74 18 126/56 01/09/23 18:37 97.9 F 78 18 100/50 Pulse Ox 01/10/23 10:09 01/10/23 08:30 01/10/23 07:25 91 L 01/10/23 04:09 95 01/10/23 01:24 93 L 01/09/23 18:37 97 Intake and Output 01/09/23 01/10/23 01/10/23 22:59 06:59 14:59 Intake Total 250 Output Total 400 Balance -150 Intake: Oral 250 Output: Urine 400 Other: Weight 63.503 kg 63.503 kg 63.503 kg GENERAL DESCRIPTION: An elderly male lying in bed, no distress. No tachypnea or accessory muscle of respiration use. HEENT: Shows Pallor , no scleral icterus. Oral mucous membrane is dry. No pharyngeal erythema or thrush NECK: Trachea central, no thyromegaly. LUNGS: Unlabored breathing. Clear to auscultation anteriorly. No wheeze or crackle. HEART: S1, S2, regular rate and rhythm. No loud murmur ABDOMEN: Soft, no tenderness , guarding or rigidity EXTREMITIES: Left heel. Unstageable pressure ulcer some surrounding redness no foul-smelling drainage SKIN: No rash, no masses palpable. NEUROLOGICAL: The patient is awake, alert, oriented x2, mood and affect normal. Results CBC & Chem 7: 01/18/23 06:51 01/18/23 06:51 Labs: Abnormal Lab Results - Last 24 Hours (Table) 01/09/23 01/09/23 01/09/23 Range/Units 18:46 20:00 20:00 WBC 11.8 H (3.8-10.6) k/uL RBC 3.51 L (4.30-5.90) m/uL Hgb 9.6 L (13.0-17.5) gm/dL Hct 30.6 L (39.0-53.0) % RDW 16.8 H (11.5-15.5) % Neutrophils # 10.5 H (1.3-7.7) k/uL Lymphocytes # 0.8 L (1.0-4.8) k/uL Sodium 134 L (137-145) mmol/L Glucose 106 H (74-99) mg/dL Calcium 8.1 L (8.4-10.2) mg/dL Alkaline Phosphatase 168 H (38-126) U/L Albumin 2.6 L (3.5-5.0) g/dL Urine Protein 1+ H (Negative) Urine Glucose (UA) 3+ H (Negative) Urine Blood Moderate H (Negative) Ur Leukocyte Esterase Large H (Negative) Urine RBC 103 H (0-5) /hpf Urine WBC >182 H (0-5) /hpf Urine WBC Clumps Many H (None) /hpf Hyaline Casts 3 H (0-2) /lpf Urine Mucus Moderate H (None) /hpf Urine Yeast (Budding) Few H (None) /hpf Microbiology - Last 24 Hours (Table) 01/09/23 19:54 Urine Culture - Preliminary Urine,Voided Assessment and Plan (1) UTI (urinary tract infection) Status: Acute Code(s): N39.0 - URINARY TRACT INFECTION, SITE NOT SPECIFIED SNOMED Code(s): 34952463 (2) Unstageable pressure ulcer of left heel Status: Acute Code(s): L89.620 - PRESSURE ULCER OF LEFT HEEL, UNSTAGEABLE SNOMED Code(s): 63600141746287 (3) Stage II pressure ulcer of sacral region Status: Acute Code(s): L89.152 - PRESSURE ULCER OF SACRAL REGION, STAGE 2 SNOMED Code(s): 83931418295107 Plan: 1patient presented to hospital with sepsis in this patient did have a fever elevated white count and now with evidence of gram-negative bacteremia source is likely catheter associated UTI with a blood culture now growing Enterobacter 2-patient did have a unstageable pressure ulcer to the left heel and lateral border of the left foot with minimal cellulitis 3-patient also have a stage II pressure ulcer to the sacral area with no cellulitis and unstageable pressure ulcer to the right gluteal area with some slough tissue no surrounding redness 4-discontinue cefazolin start the patient cefepime 2 g every 12 hours dose adjusted to the kidney function 5-patient will likely benefit from vascular surgery evaluation for his left foot to see if need for any surgical debridement or work-up 6-local care was discussed with the patient nurse We will follow on clinical condition and cultures to further adjust medication if needed Thank you for this consultation we will follow the patient along with you Time with Patient: Greater than 30
--- NOTE | 2023-01-10 23:20 | P.HPIM ---
History of Present Illness H&P Date: 01/10/23 Chief Complaint: Fever Patient is a 87-year-old male with a known history of atrial fibrillation on anticoagulation with Eliquis, history of DVT/PE, history of CVA/TIA with right- sided weakness/speech difficulty, hypertension, hyperlipidemia, history of fecal impaction/bowel perforation status post colostomy, parastomal hernia, chronic indwelling Carranza catheter and protein calorie malnutrition and prior history of smoking was sent from [facility] [place] due to complaints of fever. Patient does have left foot wound and is getting wound care at retirement which is also noted to have increased redness. Patient was febrile with Tmax 100.3 on admission. He was also hypotensive with blood pressure 82/49 on admission. Chest x-ray showed chronic changes and cardiomegaly with small to moderate size left pleural effusion redemonstrated. X-ray of the foot showed osseous structures are demineralized which is noted to lower radiographic sensitivity. Moderate diffuse soft tissue swelling is seen. Flexion of the toes is noted which limits evaluation at this level. No acute displaced fracture. Severe narrowing at the first interphalangeal joint and moderate to severe narrowing at the first metatarsophalangeal joint. No obvious bony structures to suggest ac mechoopda osteomyelitis. Laboratory showed WBC 11.8 hemoglobin 9.6 and platelets 363 RDW 16.8 Sodium 134, potassium 4.0 chloride 99 bicarb 25 BUN 20 and creatinine 1.24 blood sugar 106 and calcium 8.1 and albumin 2.6. Urinalysis showed moderate blood large leukoesterase with elevated RBCs and WBCs. Influenza A, B, RSV and COVID-19 PCR not detected. Patient was given a dose of ceftriaxone and clindamycin while in the ER. Review of Systems Constitutional: Patient did have fever and no chills. Generalized weakness and fatigue. Abdomen: Patient denied any nausea or vomiting or abd. pain Cardiovascular: Patient denies any chest pain or short of breath no palpitations. Respiratory: patient denied any cough . no sputum production. No shortness of breath Neurologic: Patient denied any numbness or tingling headache. Musculoskeletal: Patient denies any complaints of joint swelling or deformity. Skin: Negative Psychiatric: Negative Endocrine: No heat or cold intolerance. No recent weight gain. Genitourinary: No dysuria or hematuria. All other 14 point ROS negative except the above Past Medical History Past Medical History: Atrial Fibrillation, CVA/TIA, Deep Vein Thrombosis (DVT), Hyperlipidemia, Hypertension, Prostate Disorder, Pulmonary Embolus (PE), Supraventricular Tachycardia (SVT) Additional Past Medical History / Comment(s): 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 History of Any Multi-Drug Resistant Organisms: None Reported Past Surgical History: Bowel Resection Additional Past Surgical History / Comment(s): 2020 bowel resection/colostomy, CVA in 1955 which made need for R elbow surgery/R ankle fusion, post cva surgery on back to remove blood clot, bilateral eye lens implants. Past Anesthesia/Blood Transfusion Reactions: No Reported Reaction Additional Past Anesthesia/Blood Transfusion Reaction / Comment(s): Pt believes he has received blood in past without reaction. Past Psychological History: No Psychological Hx Reported Additional Psychological History / Comment(s): Pt lives at [facility], Smoking Status: Former smoker Past Alcohol Use History: None Reported Additional Past Alcohol Use History / Comment(s): Pt started smoking a pipe in 1967 and quit in 1995. Past Drug Use History: None Reported - Past Family History Mother Family Medical History: Dementia Additional Family Medical History / Comment(s): ALZHEIMERS Father Family Medical History: No Reported History Additional Family Medical History / Comment(s): Pt states his father was healthy Medications and Allergies Home Medications Medication Instructions Recorded Confirmed Type Tamsulosin HCl [Flomax] 0.4 mg PO DAILY@0800 02/14/18 01/09/23 History Pantoprazole Sodium [Protonix] 40 mg PO DAILY@0600 10/20/22 01/09/23 History Albuterol Inhaler [Ventolin Hfa 2 puff INHALATION RT-Q6H 10/28/22 01/09/23 History Inhaler] Apixaban [Eliquis] 2.5 mg PO BID@0800,1700 10/28/22 01/09/23 History Aspirin 81 mg PO DAILY@1200 10/28/22 01/09/23 History Ensure Enlive 237 ml PO TID@0800,1200,1700 10/28/22 01/09/23 History Eucerin Advanced Repair Cream 1 applic TOPICAL DAILY 10/28/22 01/09/23 History Eucerin Advanced Repair Cream 1 applic TOPICAL DAILY PRN 10/28/22 01/09/23 History Magnesium Hydroxide [Milk of 7,200 mg PO Q48H PRN 10/28/22 01/09/23 History Magnesia Concentrate] Na Phos,M-B/Na Phos,Di-Ba [Fleet 133 ml RECTAL DAILY PRN 10/28/22 01/09/23 History Adult] bisacodyL [Dulcolax] 10 mg RECTAL DAILY PRN 10/28/22 01/09/23 History Amiodarone [Cordarone] 200 mg PO BID@0800,1700 12/14/22 01/09/23 History Folic Acid 1 mg PO DAILY@1200 tab 12/25/22 01/09/23 Rx HYDROcodone/APAP 5-325MG [[place] 1 tab PO Q6HR PRN 3 Days #12 tab 12/25/22 01/09/23 Rx 5-325] Collagenase [Santyl Ointment] 1 applic TOPICAL DAILY 01/09/23 01/09/23 History Dapagliflozin Propanediol [Farxiga] 10 mg PO DAILY@0800 01/09/23 01/09/23 History Ferrous Sulfate [Feosol] 325 mg PO DAILY@1700 01/09/23 01/09/23 History Furosemide [Lasix] 20 mg PO BID@0800,1700 01/09/23 01/09/23 History Lactulose 30 gm PO DAILY@0800 01/09/23 01/09/23 History Metoprolol Succinate (ER) [Toprol 12.5 mg PO DAILY@0800 01/09/23 01/09/23 Hist ory XL] Multivitamins, Thera [Multivitamin 1 tab PO DAILY@1200 01/09/23 01/09/23 History (formulary)] Spironolactone [Aldactone] 25 mg PO DAILY@0800 01/09/23 01/09/23 History Thiamine [Vitamin B-1] 100 mg PO BID@0800,1700 01/09/23 01/09/23 History polyethylene glycoL 3350 [Miralax] 17 gm PO DAILY@0800 01/09/23 01/09/23 History Allergies Allergy/AdvReac Type Severity Reaction Status Date / Time memantine [From Namenda] AdvReac Nausea & Verified 01/09/23 21:42 Vomiting & Diarrhea Physical Exam Vitals: Vital Signs Temp Pulse Pulse Resp BP BP BP 01/10/23 08:30 60 91/46 01/10/23 07:25 100.3 F H 64 15 79/41 82/41 01/10/23 04:09 98.6 F 76 18 118/51 01/10/23 01:24 98.1 F 74 18 126/56 01/09/23 18:37 97.9 F 78 18 100/50 Pulse Ox 01/10/23 08:30 01/10/23 07:25 91 L 01/10/23 04:09 95 01/10/23 01:24 93 L 01/09/23 18:37 97 Intake and Output 01/09/23 01/10/23 01/10/23 22:59 06:59 14:59 Intake Total 250 Output Total 400 Balance -150 Intake: Oral 250 Output: Urine 400 Other: Weight 63.503 kg 63.503 kg PHYSICAL EXAMINATION: Patient is lying in the bed , no acute distress, awake alert and oriented x1- 2... HEENT: Normocephalic. Neck is supple. Pupils reactive. Nostrils clear. Oral cavity is moist. Neck reveals no JVD, carotid bruits, or thyromegaly. CHEST EXAMINATION: Trachea is central. Symmetrical expansion. Lung wise clear to auscultation and percussion. CARDIAC: Normal S1, S2 with no gallops. No murmurs ABDOMEN: Soft. Bowel sounds present. Nontender. No organomegaly. No abdominal bruits. Colostomy bag on the right side of the abdomen and abdoulaye with recent left- sided abdominal wall. Clean and dry. Extremities: reveal no edema. No clubbing or cyanosis. Left heel ulcer with no purulent drainage noted. Minimal redness around the ulcer. Neurologically awake, alert, oriented x 1-2. Right-sided residual weakness. Able to move extremities while in bed. Skin: No rash or skin lesions. Psychiatric: Coperative. Nonsuicidal, could not be assessed completely. Musculoskeletal: No joint swelling or deformity. Results CBC & Chem 7: 01/09/23 20:00 01/09/23 20:00 Labs: Abnormal Lab Results - Last 24 Hours (Table) 01/09/23 01/09/23 01/09/23 Range/Units 18:46 20:00 20:00 WBC 11.8 H (3.8-10.6) k/uL RBC 3.51 L (4.30-5.90) m/uL Hgb 9.6 L (13.0-17.5) gm/dL Hct 30.6 L (39.0-53.0) % RDW 16.8 H (11.5-15.5) % Neutrophils # 10.5 H (1.3-7.7) k/uL Lymphocytes # 0.8 L (1.0-4.8) k/uL Sodium 134 L (137-145) mmol/L Glucose 106 H (74-99) mg/dL Calcium 8.1 L (8.4-10.2) mg/dL Alkaline Phosphatase 168 H (38-126) U/L Albumin 2.6 L (3.5-5.0) g/dL Urine Protein 1+ H (Negative) Urine Glucose (UA) 3+ H (Negative) Urine Blood Moderate H (Negative) Ur Leukocyte Esterase Large H (Negative) Urine RBC 103 H (0-5) /hpf Urine WBC >182 H (0-5) /hpf Urine WBC Clumps Many H (None) /hpf Hyaline Casts 3 H (0-2) /lpf Urine Mucus Moderate H (None) /hpf Urine Yeast (Budding) Few H (None) /hpf Microbiology - Last 24 Hours (Table) 01/09/23 19:54 Urine Culture - Preliminary Urine,Voided Thrombosis Risk Factor Assmnt - DVT/VTE Prophylaxis DVT/VTE Prophylaxis: Pharmacologic Prophylaxis ordered - Choose All That Apply Each Risk Factor Represents 3 Points: Age 75 years or older Thrombosis Risk Factor Assessment Total Risk Factor Score: 3 Thrombosis Risk Factor Assessment Level: Moderate Risk Assessment and Plan Assessment: Acute urinary tract infection related to chronic indwelling Carranza catheter Sepsis secondary to above Left heel ulcer with surrounding cellulitis History of bowel perforation status post colostomy and parastomal hernia., Recent abdominal surgery. Paroxysmal atrial fibrillation on anticoagulation with Eliquis History of DVT/PE History of SVT Hypertension Hyperlipidemia BPH History of CVA with right-sided weakness and speech difficulty Hypoalbuminemia, Mild to moderate protein calorie malnutrition. Normocytic anemia and iron deficiency anemia Prior history of smoking Plan: Patient will be continued on IV hydration with normal saline. Was given a dose of ceftriaxone and clindamycin in the ER. Patient will be continued on a ntibiotics as per ID recommendations. Follow-up urine culture and blood culture report. Continue with home medications including anticoagulation with Eliquis. Repeat CBC and BMP. Continue to follow closely. Time with Patient: Greater than 30
[2023-01-11] MEDS: ACETAMINOPHEN TAB 325 MG TAB PO PRN (04:17)
[2023-01-11] MEDS: CEFEPIME 2 GM in SODIUM CHLORIDE 0.9% 100 ML IVPB SCH ×2 (06:09→17:57)
[2023-01-11] MEDS: PANTOPRAZOLE 40 MG TABLET PO SCH (06:20)
[2023-01-11] MEDS: ALBUTEROL NEBULIZED 2.5 MG/3 ML INHALATION SCH ×6 (07:45→20:29)
[2023-01-11 08:39] LABS: Basophils # (A) 0.01 X 10*3/uL (0.00-0.10); Basophils % (A) 0.1 %; Eosinophils # (A) 0.02 X 10*3/uL (0.04-0.35); Eosinophils % (A) 0.2 %; HCT 28.8 % (39.6-50.0); HGB 8.7 g/dL (13.0-17.0); Immature Grans, Automated 0.6 %; Lymphocytes # (A) 0.78 X 10*3/uL (0.90-5.00); Lymphocytes % (A) 9.3 %; MCH 26.8 pg (27.0-32.0); MCHC 30.2 g/dL (32.0-37.0); MCV 88.6 fL (80.0-97.0); Mean Platelet Volume 10.4 fL (9.5-12.2); Monocytes # (A) 0.35 X 10*3/uL (0.20-1.00); Monocytes % (A) 4.2 %; NRBC Per 100 WBC 0 /100 WBCS (0.0-0.0); Neutrophils # (A) 7.14 X 10*3/uL (1.80-7.70); Neutrophils % (A) 85.6 %; Platelet Count 317 X 10*3/uL (140-440); RBC 3.25 X 10*6/uL (4.40-5.60); RDW 17.2 % (11.5-14.5); WBC 8.35 X 10*3/uL (4.50-10.00)
[2023-01-11 08:42] LABS: African American GFR (CKD) 59.6 (60.0-200.0); Anion Gap 8.8 mmol/L (10.00-18.00); BUN/Creat Ratio 16.88 Ratio (12.00-20.00); Blood Urea Nitrogen 21.1 mg/dL (9.0-27.0); Calcium 7.8 mg/dL (8.7-10.3); Carbon Dioxide 21.7 mmol/L (20.0-27.5); Non-African American GFR(CKD) 51.4 (60.0-200.0); Potassium 4.4 mmol/L (3.5-5.5)
[2023-01-11] MEDS: THIAMINE 100 MG TAB PO SCH ×2 (09:37→17:57)
[2023-01-11] MEDS: FOLIC ACID 1 MG TAB PO SCH (09:38)
[2023-01-11] MEDS: METOPROLOL SUCCINATE (ER) 25 MG TAB.ER.24H PO SCH (09:38)
[2023-01-11] MEDS: MULTIVITAMINS, THERA 1 EACH TAB PO SCH (09:38)
[2023-01-11] MEDS: ASPIRIN 81 MG PO SCH (09:38)
[2023-01-11] MEDS: SPIRONOLACTONE 25 MG TAB PO SCH (09:38)
[2023-01-11] MEDS: FUROSEMIDE 20 MG TAB PO SCH ×2 (09:38→17:57)
[2023-01-11] MEDS: TAMSULOSIN 0.4 MG CAP.ER.24H PO SCH (09:39)
[2023-01-11] MEDS: AMIODARONE 200 MG TAB PO SCH ×2 (09:39→17:57)
[2023-01-11] MEDS: APIXABAN 2.5 MG TABLET PO SCH ×2 (09:39→17:57)
--- NOTE | 2023-01-11 10:45 | P.CONS ---
History of Present Illness - Reason for Consult Consult date: 01/11/23 wound care - History of Present Illness This is a 87-year-old patient who is a resident of [facility] who presents with unstageable ulceration to the left heel and left lateral foot. Patient has a stage II pressure ulcer to the sacrum, patient also has a nonhealing ulceration with fat layer exposure to the left dorsal foot. Patient states that the ulcerations have been there for a few months. Patient states that the ulce ration started after he had stepped on glass when he was selling his home. The left heel and left lateral foot are unstageable ulcerations with eschar In place. The periwound does show sloughing. The left dorsal foot ulceration is a non-pressure ulceration with fatty layer exposure with moderate slough noted within the wound bed and minimal granulation to the wound edges. The wound edges are attached to the wound base. No tunneling or undermining noted. Patient has a stage II sacral ulceration with significant amount of slough and necrotic tissue present. Review Of Systems: Constitutional: No fever, no chills, no night sweats. No weight change. No weakness, fatigue or lethargy. No daytime sleepiness. Integumentary:reports wounds, no lesions. No rash or pruritus. No unusual brui sing. No change in hair or nails. Physical exam: General Appearance: Alert, cooperative, no distress, appears stated age. Skin: See HPI all other Skin color, texture, tugor normal, no rashes or lesions. Neurologic: Alert oriented x3 Assessment: 1. Unstageable ulceration to left heel 2. Unstageable ulceration to left lateral foot 3. Nonpressure ulceration with fat layer exposure to left dorsal foot 4. Stage II pressure ulcer sacrum Plan: 1. Left foot: Apply Santyl, saline moistened gauze, dry gauze, and rolled gauze and secure with paper tape change daily. Sacral: Apply Santyl, saline moistened gauze, and border foam change daily. Patient would benefit from continue wound debridement and wound care setting. Patient can be added to the list at [facility] or come to the wound care center for continued wound care. Thank you for the consultation any questions please contact the wound care center DNP note has been reviewed and discussed with Dr. Hoffman and the impression and plan of care has been directed as dictated. Past Medical History Past Medical History: Atrial Fibrillation, CVA/TIA, Deep Vein Thrombosis (DVT), Hyperlipidemia, Hypertension, Prostate Disorder, Pulmonary Embolus (PE), Supraventricular Tachycardia (SVT) Additional Past Medical History / Comment(s): 1955 CVA with R sided weakness/speech difficulty, post cva pt states he had a blood clot that went into his back/surgery to remove, , 2020 fecal impaction/bowel perforation with sepsis/has colostomy, colitis, colon polyps, perstomal hernia/wears abdominal binder, past htn, BPH, pt states lasix started d/t edema, protein calorie malnut rition. History of Any Multi-Drug Resistant Organisms: None Reported Past Surgical History: Bowel Resection Additional Past Surgical History / Comment(s): 2020 bowel resection/colostomy, CVA in 1955 which made need for R elbow surgery/R ankle fusion, post cva surgery on back to remove blood clot, bilateral eye lens implants. Past Anesthesia/Blood Transfusion Reactions: No Reported Reaction Additional Past Anesthesia/Blood Transfusion Reaction / Comm: Pt believes he has received blood in past without reaction. Past Psychological History: No Psychological Hx Reported Additional Psychological History / Comment(s): Pt lives at [facility], Smoking Status: Former smoker Past Alcohol Use History: None Reported Additional Past Alcohol Use History / Comment(s): Pt started smoking a pipe in 1967 and quit in 1995. Past Drug Use History: None Reported - Past Family History Mother Family Medical History: Dementia Additional Family Medical History / Comment(s): ALZHEIMERS Father Family Medical History: No Reported History Additional Family Medical History / Comment(s): Pt states his father was healthy Medications and Allergies Home Medications Medication Instructions Recorded Confirmed Type Tamsulosin HCl [Flomax] 0.4 mg PO DAILY@0800 02/14/18 01/09/23 History Pantoprazole Sodium [Protonix] 40 mg PO DAILY@0600 10/20/22 01/09/23 History Albuterol Inhaler [Ventolin Hfa 2 puff INHALATION RT-Q6H 10/28/22 01/09/23 History Inhaler] Apixaban [Eliquis] 2.5 mg PO BID@0800,1700 10/28/22 01/09/23 History Aspirin 81 mg PO DAILY@1200 10/28/22 01/09/23 History Ensure Enlive 237 ml PO TID@0800,1200,1700 10/28/22 01/09/23 History Eucerin Advanced Repair Cream 1 applic TOPICAL DAILY 10/28/22 01/09/23 History Eucerin Advanced Repair Cream 1 applic TOPICAL DAILY PRN 10/28/22 01/09/23 History Magnesium Hydroxide [Milk of 7,200 mg PO Q48H PRN 10/28/22 01/09/23 History Magnesia Concentrate] Na Phos,M-B/Na Phos,Di-Ba [Fleet 133 ml RECTAL DAILY PRN 10/28/22 01/09/23 History Adult] bisacodyL [Dulcolax] 10 mg RECTAL DAILY PRN 10/28/22 01/09/23 History Amiodarone [Cordarone] 200 mg PO BID@0800,1700 12/14/22 01/09/23 History Folic Acid 1 mg PO DAILY@1200 tab 12/25/22 01/09/23 Rx HYDROcodone/APAP 5-325MG [[place] 1 tab PO Q6HR PRN 3 Days #12 tab 12/25/22 01/09/23 Rx 5-325] Collagenase [Santyl Ointment] 1 applic TOPICAL DAILY 01/09/23 01/09/23 History Dapagliflozin Propanediol [Farxiga] 10 mg PO DAILY@0800 01/09/23 01/09/23 History Ferrous Sulfate [Feosol] 325 mg PO DAILY@1700 01/09/23 01/09/23 History Furosemide [Lasix] 20 mg PO BID@0800,1700 01/09/23 01/09/23 History Lactulose 30 gm PO DAILY@0800 01/09/23 01/09/23 History Metoprolol Succinate (ER) [Toprol 12.5 mg PO DAILY@0800 01/09/23 01/09/23 History XL] Multivitamins, Thera [Multivitamin 1 tab PO DAILY@1200 01/09/23 01/09/23 History (formulary)] Spironolactone [Aldactone] 25 mg PO DAILY@0800 01/09/23 01/09/23 History Thiamine [Vitamin B-1] 100 mg PO BID@0800,1700 01/09/23 01/09/23 History polyethylene glycoL 3350 [Miralax] 17 gm PO DAILY@0800 01/09/23 01/09/23 History Allergies Allergy/AdvReac Type Severity Reaction Status Date / Time memantine [From Namenda] AdvReac Nausea & Verified 01/09/23 21:42 Vomiting & Diarrhea Physical Exam Vitals: Vital Signs Temp Pulse Resp BP Pulse Ox 01/11/23 07:18 98.8 F 67 16 95/57 93 L 01/11/23 06:09 99.2 F 01/11/23 03:50 100.2 F H 63 16 96/58 93 L 01/10/23 20:10 99 F 69 16 93/60 94 L 01/10/23 12:26 98.4 F 70 16 87/54 95 Intake and Output 01/10/23 01/11/23 01/11/23 22:59 06:59 14:59 Intake Total 1300 Output Total 525 650 Balance 775 -650 Intake: Intake, IV Titration 1300 Amount Sodium Chloride 0.9% 1, 750 000 ml @ 65 mls/hr IV . [id number] [facility] Rx#:[id number] Sodium Chloride 0.9% 500 500 ml 500 ml @ 999 mls/hr IV .Q31M ONE Rx#:[id number] ceFAZolin 2 gm In Sodium 50 Chloride 0.9% 50 ml @ 100 mls/hr IVPB Q8H [facility] Rx#: [id number] Output: Urine 525 650 Other: Voiding Method Indwelling Catheter Results CBC & Chem 7: 01/11/23 05:01 01/11/23 05:01 Labs: Abnormal Lab Results - Last 24 Hours (Table) 01/11/23 01/11/23 Range/Units 05:01 05:01 RBC 3.25 L (4.40-5.60) X 10*6/uL Hgb 8.7 L (13.0-17.0) g/dL Hct 28.8 L (39.6-50.0) % MCH 26.8 L (27.0-32.0) pg MCHC 30.2 L (32.0-37.0) g/dL RDW 17.2 H (11.5-14.5) % Immature Gran # 0.05 H (0.00-0.04) X 10*3/uL Lymphocytes # 0.78 L (0.90-5.00) X 10*3/uL Eosinophils # 0.02 L (0.04-0.35) X 10*3/uL Anion Gap 8.80 L (10.00-18.00) mmol/L Est GFR (CKD-EPI)AfAm 59.6 L (60.0-200.0) Est GFR (CKD-EPI)NonAf 51.4 L (60.0-200.0) Calcium 7.8 L (8.7-10.3) mg/dL Microbiology - Last 24 Hours (Table) 01/09/23 22:20 Blood Culture Gram Stain - Preliminary Blood Blood Culture - Preliminary Gram Neg Bacilli 01/09/23 22:27 Blood Culture Gram Stain - Preliminary Blood Assessment and Plan (1) Pressure ulcer of left foot, unstageable Current Visit: Yes Status: Acute Code(s): L89.890 - PRESSURE ULCER OF OTHER SITE, UNSTAGEABLE SNOMED Code(s): 273713899 (2) Stage II pressure ulcer of sacral region Current Visit: No Status: Acute Code(s): L89.152 - PRESSURE ULCER OF SACRAL REGION, STAGE 2 SNOMED Code(s): 20259672885513 (3) Unstageable pressure ulcer of left heel Current Visit: No Status: Acute Code(s): L89.620 - PRESSURE ULCER OF LEFT HEEL, UNSTAGEABLE SNOMED Code(s): 33494212147770
[2023-01-11] MEDS: COLLAGENASE 250 UNIT/GM OINTMENT 30 GM TUBE TOPICAL SCH (14:17)
[2023-01-11] MEDS: SODIUM CHLORIDE 0.9% 1,000 ML IV SCH (15:17)
--- NOTE | 2023-01-11 15:51 | P.PN ---
Subjective Progress Note Date: 01/11/23 Principal diagnosis: UTI and bacteremia Patient is a 87-year-old male with multiple comorbidities recent admission to the hospital with evisceration of his stoma status post surgical repair of the same and the patient [facility] patient has not been sent to the ER for evaluation of fever , patient noticed to have a positive urine also positive blood culture On today's evaluation her that is 01/11/2023, the patient did have a low-grade fever 100.2 around 3 this morning the patient is afebrile since then the patient is breathing comfortably on room air denies any chest pain shortness of breath occasional cough no abdominal pain no nausea no vomiting Objective - Vital Signs Vital signs: Vital Signs Temp 98.8 F 01/11/23 07:18 Pulse 67 01/11/23 07:18 Resp 16 01/11/23 07:18 BP 95/57 01/11/23 07:18 Pulse Ox 93 L 01/11/23 07:18 FiO2 Intake & Output 01/10/23 01/11/23 01/11/23 18:59 06:59 18:59 Intake Total 1300 Output Total 525 650 Balance 775 -650 Weight 63.503 kg Intake: Intake, IV Titration 1300 Amount Sodium Chloride 0.9% 1, 750 000 ml @ 65 mls/hr IV . [id number] [facility] Rx#:[id number] Sodium Chloride 0.9% 500 500 ml 500 ml @ 999 mls/hr IV .Q31M ONE Rx#:[id number] ceFAZolin 2 gm In Sodium 50 Chloride 0.9% 50 ml @ 100 mls/hr IVPB Q8H [facility] Rx#: [id number] Output: Urine 525 650 Other: Voiding Method Indwelling Catheter Indwelling Catheter Indwelling Catheter - Exam GENERAL DESCRIPTION: An elderly male lying in bed in no distress RESPIRATORY SYSTEM: Unlabored breathing , decreased breath sounds at bases HEART: S1 S2 regular rate and rhythm , ABDOMEN: Soft , no tenderness EXTREMITIES: No edema feet - Labs CBC & Chem 7: 01/11/23 05:01 01/11/23 05:01 Labs: Abnormal Lab Results - Last 24 Hours (Table) 01/11/23 01/11/23 Range/Units 05:01 05:01 RBC 3.25 L (4.40-5.60) X 10*6/uL Hgb 8.7 L (13.0-17.0) g/dL Hct 28.8 L (39.6-50.0) % MCH 26.8 L (27.0-32.0) pg MCHC 30.2 L (32.0-37.0) g/dL RDW 17.2 H (11.5-14.5) % Immature Gran # 0.05 H (0.00-0.04) X 10*3/uL Lymphocytes # 0.78 L (0.90-5.00) X 10*3/uL Eosinophils # 0.02 L (0.04-0.35) X 10*3/uL Anion Gap 8.80 L (10.00-18.00) mmol/L Est GFR (CKD-EPI)AfAm 59.6 L (60.0-200.0) Est GFR (CKD-EPI)NonAf 51.4 L (60.0-200.0) Calcium 7.8 L (8.7-10.3) mg/dL Microbiology - Last 24 Hours (Table) 01/09/23 22:20 Blood Culture Gram Stain - Preliminary Blood Blood Culture - Preliminary Gram Neg Bacilli 01/09/23 22:27 Blood Culture Gram Stain - Preliminary Blood Assessment and Plan (1) Bacteremia Current Visit: Yes Status: Acute Code(s): R78.81 - BACTEREMIA SNOMED Code( s): 7343159 (2) UTI (urinary tract infection) Current Visit: Yes Status: Acute Code(s): N39.0 - URINARY TRACT INFECTION, SITE NOT SPECIFIED SNOMED Code(s): 45119524 Plan: 1patient presented to hospital with sepsis in this patient did have a fever elevated white count and now with evidence of gram-negative bacteremia source is likely catheter associated UTI with a blood culture now growing Enterobacter 2-patient did have a unstageable pressure ulcer to the left heel and lateral border of the left foot with minimal cellulitis 3-patient also have a stage II pressure ulcer to the sacral area with no cellulitis and unstageable pressure ulcer to the right gluteal area with some slough tissue no surrounding redness 4Patient to continue with cefepime 2 g every 12 hours dose adjusted to the kidney function 5-patient will benefit from vascular surgery evaluation for his left foot for possible debridement Time with Patient: Less than 30
[2023-01-11] MEDS ORDERED: IPRATROPIUM-ALBUTEROL 3 ML NEB INHALATION PRN (21:49)
[2023-01-12] MEDS: SODIUM CHLORIDE 0.9% 1,000 ML IV SCH ×3 (04:34→16:46)
[2023-01-12] MEDS: CEFEPIME 2 GM in SODIUM CHLORIDE 0.9% 100 ML IVPB SCH ×2 (05:53→17:23)
[2023-01-12] MEDS: PANTOPRAZOLE 40 MG TABLET PO SCH (05:53)
[2023-01-12] MEDS: IPRATROPIUM-ALBUTEROL 3 ML NEB INHALATION SCH ×4 (06:11→20:27)
[2023-01-12 09:13] LABS: Basophils # (A) 0.02 X 10*3/uL (0.00-0.10); Basophils % (A) 0.2 %; Eosinophils % (A) 0.9 %; HCT 29.2 % (39.6-50.0); HGB 8.8 g/dL (13.0-17.0); Immature Grans, Automated 0.7 %; Lymphocytes # (A) 1.24 X 10*3/uL (0.90-5.00); Lymphocytes % (A) 11.4 %; MCH 26.3 pg (27.0-32.0); MCHC 30.1 g/dL (32.0-37.0); MCV 87.2 fL (80.0-97.0); Mean Platelet Volume 10.4 fL (9.5-12.2); Monocytes # (A) 0.57 X 10*3/uL (0.20-1.00); Monocytes % (A) 5.3 %; NRBC Per 100 WBC 0 /100 WBCS (0.0-0.0); Neutrophils # (A) 8.83 X 10*3/uL (1.80-7.70); Neutrophils % (A) 81.5 %; Platelet Count 325 X 10*3/uL (140-440); RBC 3.35 X 10*6/uL (4.40-5.60); RDW 17.1 % (11.5-14.5); WBC 10.84 X 10*3/uL (4.50-10.00)
[2023-01-12] MEDS: APIXABAN 2.5 MG TABLET PO SCH ×2 (09:52→18:23)
[2023-01-12] MEDS: FUROSEMIDE 20 MG TAB PO SCH ×2 (09:52→18:23)
[2023-01-12] MEDS: COLLAGENASE 250 UNIT/GM OINTMENT 30 GM TUBE TOPICAL SCH (09:53)
[2023-01-12] MEDS: SPIRONOLACTONE 25 MG TAB PO SCH (09:53)
[2023-01-12] MEDS: THIAMINE 100 MG TAB PO SCH ×2 (09:53→18:23)
[2023-01-12] MEDS: AMIODARONE 200 MG TAB PO SCH ×2 (09:53→18:22)
[2023-01-12] MEDS: METOPROLOL SUCCINATE (ER) 25 MG TAB.ER.24H PO SCH (09:53)
[2023-01-12] MEDS: TAMSULOSIN 0.4 MG CAP.ER.24H PO SCH (09:53)
[2023-01-12 11:02] LABS: Anion Gap 9.7 mmol/L (10.00-18.00); BUN/Creat Ratio 19.26 Ratio (12.00-20.00); Blood Urea Nitrogen 23.3 mg/dL (9.0-27.0); Calcium 7.9 mg/dL (8.7-10.3); Carbon Dioxide 22.6 mmol/L (20.0-27.5); Non-African American GFR(CKD) 53.5 (60.0-200.0); Potassium 4.3 mmol/L (3.5-5.5)
--- NOTE | 2023-01-12 11:54 | US ---
EXAMINATION TYPE: US kidneys/renal and bladder DATE OF EXAM: 01/12/2023 Exam done portable COMPARISON: CT 2020 CLINICAL INDICATION: Male, 87 years old with history of uti and bacteremia; EXAM MEASUREMENTS: Right Kidney: 9.4 x 3.9 x 4.5 cm Left Kidney: 9.2 x 4.7 x 4.5 cm Right Kidney: No hydronephrosis or masses seen Left Kidney: No hydronephrosis or masses seen, limited by rib shadowing and overlying bowel gas Bladder: not distended, mason catheter There is no evidence for hydronephrosis at this point in time. No nephrolithiasis is seen. No payal s are identified. The urinary bladder is not greatly distended and is suboptimally evaluated. Rubber Turner al Mason catheter balloon noted. IMPRESSION: Suboptimal study. No hydronephrosis seen bilaterally.
[2023-01-12] MEDS: ASPIRIN 81 MG PO SCH (12:06)
[2023-01-12] MEDS: MULTIVITAMINS, THERA 1 EACH TAB PO SCH (12:06)
[2023-01-12] MEDS: FOLIC ACID 1 MG TAB PO SCH (12:06)
--- NOTE | 2023-01-12 15:30 | P.PN ---
Subjective Progress Note Date: 01/12/23 Patient is a 87-year-old male with a known history of atrial fibrillation on anticoagulation with Eliquis, history of DVT/PE, history of CVA/TIA with right- sided weakness/speech difficulty, hypertension, hyperlipidemia, history of fecal impaction/bowel perforation status post colostomy, parastomal hernia, chronic indwelling Carranza catheter and protein calorie malnutrition and prior history of smoking was sent from [facility] due to complaints of fever. Patient does have left foot wound and [facility] which is also noted to have increased redness. Patient was febrile with Tmax 100.3 on admission. He was also hypotensive with blood pressure 82/49 on admission. Chest x-ray showed chronic changes and cardiomegaly with small to moderate size left pleural effusion redemonstrated. X-ray of the foot showed osseous structures are demineralized which is noted to lower radiographic sensitivity. Moderate diffuse soft tissue swelling is seen. Flexion of the toes is noted which limits evaluation at this level. No acute displaced fracture. Severe narrowing at the first interphalangeal joint and moderate to severe narrowing at the first metatarsophalangeal joint. No obvious bony structures to suggest acute osteomyelitis. Laboratory showed WBC 11.8 hemoglobin 9.6 and platelets 363 RDW 16.8 Sodium 134, potassium 4.0 chloride 99 bicarb 25 BUN 20 and creatinine 1.24 blood sugar 106 and calcium 8.1 and albumin 2.6. Urinalysis showed moderate blood large leukoesterase with elevated RBCs and WBCs. Influenza A, B, RSV and COVID-19 PCR not detected. Patient was given a dose of ceftriaxone and clindamycin while in the ER. 01/12. Patient seen and examined. White count 10.4, hemoglobin 8.8,. States he feels better. Denies any acute issues overnight REVIEW OF SYSTEMS: CONSTITUTIONAL: No fever, no malaise,. CARDIOVASCULAR: No chest pain, no palpitations, no syncope. PULMONARY: No shortness of breath, no cough, GASTROINTESTINAL: No diarrhea, no nausea, no vomiting, no abdominal pain. NEUROLOGICAL: No headaches, no weakness, PHYSICAL EXAMINATION: GENERAL: The patient is alert and oriented x3, not in any acute distress. Well developed, well nourished. HEENT: Pupils are round and equally reacting to light. EOMI. No scleral icterus. No conjunctival pallor. Normocephalic, atraumatic. No pharyngeal erythema. No thyromegaly. CARDIOVASCULAR: S1 and S2 present. No murmurs, rubs, or gallops. PULMONARY: Chest is clear to auscultation, no wheezing or crackles. ABDOMEN: Soft, nontender, nondistended, normoactive bowel sounds. No palpable organomegaly. MUSCULOSKELETAL: Left foot bandage in place NEUROLOGICAL: Gross neurological examination did not reveal any focal deficits. SKIN: No rashes. Assessment and plan Acute urinary tract infection related to chronic indwelling Carranza catheter Sepsis secondary to above Left heel ulcer with surrounding cellulitis History of bowel perforation status post colostomy and parastomal hernia., Recent abdominal surgery. Paroxysmal atrial fibrillation on anticoagulation with Eliquis History of DVT/PE History of SVT Hypertension Hyperlipidemia BPH History of CVA with right-sided weakness and speech difficulty Hypoalbuminemia, Mild to moderate protein calorie malnutrition. Normocytic anemia and iron deficiency anemia Prior history of smoking unstageable pressure ulcer to the left heel and lateral border of the left foot with minimal cellulitis Monitor vital signs Monitor CBC Monitor CMP Follow-up on urine cultures Follow-up on blood cultures Continue IV cefepime Wound care consulted Continue Home meds Objective - Vital Signs Vital signs: Vital Signs Temp 98.9 F 01/12/23 07:29 Pulse 73 01/12/23 07:29 Resp 16 01/12/23 07:29 BP 102/54 01/12/23 07:29 Pulse Ox 94 L 01/12/23 07:29 FiO2 Intake & Output 01/11/23 01/12/23 01/12/23 18:59 06:59 18:59 Intake Total 700 Output Total 1000 2400 525 Balance -300 -2400 -525 Intake: Intake, IV Titration 700 Amount Cefepime 2 gm In Sodium 100 Chloride 0.9% 100 ml @ 25 mls/hr IVPB Q12H KATH[facility] Rx# :[id number] Sodium Chloride 0.9% 1, 600 000 ml @ 75 mls/hr IV . [id number] KATHLEEN Rx#:[id number] Output: Urine 1000 2375 525 Stool 25 Other: Voiding Method Indwelling Catheter Indwelling Catheter - Labs CBC & Chem 7: 01/12/23 05:48 01/12/23 05:48 Labs: Abnormal Lab Results - Last 24 Hours (Table) 01/12/23 Range/Units 05:48 WBC 10.84 H (4.50-10.00) X 10*3/uL RBC 3.35 L (4.40-5.60) X 10*6/uL Hgb 8.8 L (13.0-17.0) g/dL Hct 29.2 L (39.6-50.0) % MCH 26.3 L (27.0-32.0) pg MCHC 30.1 L (32.0-37.0) g/dL RDW 17.1 H (11.5-14.5) % Immature Gran # 0.08 H (0.00-0.04) X 10*3/uL Neutrophils # 8.83 H (1.80-7.70) X 10*3/uL Microbiology - Last 24 Hours (Table) 01/09/23 19:54 Urine Culture - Preliminary Urine,Voided Gram Neg Bacilli 01/09/23 22:20 Blood Culture Gram Stain - Preliminary Blood Blood Culture - Preliminary Gram Neg Bacilli 01/09/23 22:27 Blood Culture Gram Stain - Preliminary Blood
--- NOTE | 2023-01-12 22:10 | P.PN ---
Subjective Progress Note Date: 01/12/23 Principal diagnosis: UTI and bacteremia Patient is a 87-year-old male with multiple comorbidities recent admission to the hospital with evisceration of his stoma status post surgical repair of the same and the patient was subsequently [facility] the [facility] patient has not been sent to the ER for evaluation of fever , patient noticed to have a positive urine also positive blood culture On today's evaluation her that is 01/12/2023, the patient denies having any fever or any chills patient is breathing comfortably on room air denies having any chest pain shortness of breath or cough no nausea no vomiting no abdominal pain no diarrhea Objective - Vital Signs Vital signs: Vital Signs Temp 98.9 F 01/12/23 07:29 Pulse 80 01/12/23 10:53 Resp 16 01/12/23 07:29 BP 102/54 01/12/23 07:29 Pulse Ox 94 L 01/12/23 07:29 FiO2 Intake & Output 01/11/23 01/12/23 01/12/23 18:59 06:59 18:59 Intake Total 700 Output Total 1000 2400 975 Balance -300 -2400 -975 Intake: Intake, IV Titration 700 Amount Cefepime 2 gm In Sodium 100 Chloride 0.9% 100 ml @ 25 mls/hr IVPB Q12H KATHLEEN Rx# :[id number] Sodium Chloride 0.9% 1, 600 000 ml @ 75 mls/hr IV . [id number] [facility] Rx#:[id number] Output: Urine 1000 2375 975 Stool 25 Other: Voiding Method Indwelling Catheter Indwelling Catheter Indwelling Catheter - Exam GENERAL DESCRIPTION: An elderly male lying in bed in no distress RESPIRATORY SYSTEM: Unlabored breathing , decreased breath sounds at bases HEART: S1 S2 regular rate and rhythm , ABDOMEN: Soft , no tenderness EXTREMITIES: No edema feet - Labs CBC & Chem 7: 01/12/23 05:48 01/12/23 05:48 Labs: Abnormal Lab Results - Last 24 Hours (Table) 01/12/23 01/12/23 Range/Units 05:48 05:48 WBC 10.84 H (4.50-10.00) X 10*3/uL RBC 3.35 L (4.40-5.60) X 10*6/uL Hgb 8.8 L (13.0-17.0) g/dL Hct 29.2 L (39.6-50.0) % MCH 26.3 L (27.0-32.0) pg MCHC 30.1 L (32.0-37.0) g/dL RDW 17.1 H (11.5-14.5) % Immature Gran # 0.08 H (0.00-0.04) X 10*3/uL Neutrophils # 8.83 H (1.80-7.70) X 10*3/uL Anion Gap 9.70 L (10.00-18.00) mmol/L Est GFR (CKD-EPI)NonAf 53.5 L (60.0-200.0) Calcium 7.9 L (8.7-10.3) mg/dL Microbiology - Last 24 Hours (Table) 01/09/23 22:27 Blood Culture Gram Stain - Preliminary Blood Blood Culture - Preliminary Gram Neg Bacilli 01/09/23 22:20 Blood Culture Gram Stain - Final Blood Blood Culture - Final Citrobacter braakii 01/09/23 19:54 Urine Culture - Preliminary Urine,Voided Gram Neg Bacilli Assessment and Plan (1) Bacteremia Current Visit: Yes Status: Acute Code(s): R78.81 - BACTEREMIA SNOMED Code(s): 9402298 (2) UTI (urinary tract infection) Current Visit: Yes Status: Acute Code(s): N39.0 - URINARY TRACT INFECTION, SITE NOT SPECIFIED SNOMED Code(s): 63861048 Plan: 1patient presented to hospital with sepsis in this patient did have a fever elevated white count and now with evidence of gram-negative bacteremia source is likely catheter associated UTI with a blood culture now growing Enterobacter 2-patient did have a unstageable pressure ulcer to the left heel and lateral border of the left foot with minimal cellulitis 3-patient also have a stage II pressure ulcer to the sacral area with no cellul itis and unstageable pressure ulcer to the right gluteal area with some slough tissue no surrounding redness 4Patient seem to have shown some clinical improvement with bacteremia likely secondary to urinary source we will obtain ultrasound of the kidney bladder To make sure no evidence of any structure abnormality for now continue with the cefepime and monitor clinical course closely Time with Patient: Less than 30
[2023-01-13] MEDS: CEFEPIME 2 GM in SODIUM CHLORIDE 0.9% 100 ML IVPB SCH (06:16)
[2023-01-13] MEDS: PANTOPRAZOLE 40 MG TABLET PO SCH (06:17)
[2023-01-13] MEDS: METOPROLOL SUCCINATE (ER) 25 MG TAB.ER.24H PO SCH (07:38)
[2023-01-13] MEDS: TAMSULOSIN 0.4 MG CAP.ER.24H PO SCH (07:38)
[2023-01-13] MEDS: COLLAGENASE 250 UNIT/GM OINTMENT 30 GM TUBE TOPICAL SCH (07:39)
[2023-01-13] MEDS: AMIODARONE 200 MG TAB PO SCH ×2 (07:39→16:31)
[2023-01-13] MEDS: FUROSEMIDE 20 MG TAB PO SCH ×2 (07:39→16:31)
[2023-01-13] MEDS: SPIRONOLACTONE 25 MG TAB PO SCH (07:39)
[2023-01-13] MEDS: APIXABAN 2.5 MG TABLET PO SCH ×2 (07:39→16:31)
[2023-01-13] MEDS: THIAMINE 100 MG TAB PO SCH ×2 (07:39→16:31)
[2023-01-13] MEDS: IPRATROPIUM-ALBUTEROL 3 ML NEB INHALATION SCH ×4 (08:30→20:21)
[2023-01-13 09:54] LABS: Basophils # (A) 0.01 X 10*3/uL (0.00-0.10); Basophils % (A) 0.1 %; Eosinophils # (A) 0.18 X 10*3/uL (0.04-0.35); Eosinophils % (A) 1.7 %; HCT 30.5 % (39.6-50.0); Immature Grans, Automated 0.7 %; Lymphocytes # (A) 1.41 X 10*3/uL (0.90-5.00); Lymphocytes % (A) 13.2 %; MCH 26.2 pg (27.0-32.0); MCHC 29.5 g/dL (32.0-37.0); MCV 88.9 fL (80.0-97.0); Mean Platelet Volume 10.8 fL (9.5-12.2); Monocytes # (A) 0.62 X 10*3/uL (0.20-1.00); Monocytes % (A) 5.8 %; NRBC Per 100 WBC 0 /100 WBCS (0.0-0.0); Neutrophils # (A) 8.39 X 10*3/uL (1.80-7.70); Neutrophils % (A) 78.5 %; Platelet Count 370 X 10*3/uL (140-440); RBC 3.43 X 10*6/uL (4.40-5.60); RDW 17.3 % (11.5-14.5); WBC 10.69 X 10*3/uL (4.50-10.00)
[2023-01-13 10:41] LABS: African American GFR (CKD) 65.3 (60.0-200.0); Albumin 2.3 g/dL (3.8-4.9); Albumin/Globulin Ratio 0.67 (1.60-3.17); Anion Gap 9.3 mmol/L (10.00-18.00); BUN/Creat Ratio 19.4 Ratio (12.00-20.00); Blood Urea Nitrogen 22.5 mg/dL (9.0-27.0); Calcium 8.4 mg/dL (8.7-10.3); Carbon Dioxide 25.6 mmol/L (20.0-27.5); Globulin 3.4 g/dL (1.6-3.3); Non-African American GFR(CKD) 56.3 (60.0-200.0); Potassium 4.4 mmol/L (3.5-5.5); Total Bilirubin 0.3 mg/dL (0.30-1.20); Total Protein 5.7 g/dL (6.2-8.2)
[2023-01-13] MEDS: FOLIC ACID 1 MG TAB PO SCH (12:21)
[2023-01-13] MEDS: MULTIVITAMINS, THERA 1 EACH TAB PO SCH (12:21)
[2023-01-13] MEDS: ASPIRIN 81 MG PO SCH (12:21)
--- NOTE | 2023-01-13 12:49 | P.PN ---
Subjective Progress Note Date: 01/13/23 Patient is a 87-year-old male with a known history of atrial fibrillation on anticoagulation with Eliquis, history of DVT/PE, history of CVA/TIA with right- sided weakness/speech difficulty, hypertension, hyperlipidemia, history of fecal impaction/bowel perforation status post colostomy, parastomal hernia, chronic indwelling Carranza catheter and protein calorie malnutrition and prior history of smoking was sent from [facility] due to complaints of fever. Patient does have left foot wound and is getting [facility] which is also noted to have increased redness. Patient was febrile with Tmax 100.3 on admission. He was also hypotensive with blood pressure 82/49 on admission. Chest x-ray showed chronic changes and cardiomegaly with small to moderate size left pleural effusion redemonstrated. X-ray of the foot showed osseous structures are demineralized which is noted to lower radiographic sensitivity. Moderate diffuse soft tissue swelling is seen. Flexion of the toes is noted which limits evaluation at this level. No acute displaced fracture. Severe narrowing at the first interphalangeal joint and moderate to severe narrowing at the first metatarsophalangeal joint. No obvious bony structures to suggest acute osteomyelitis. Laboratory showed WBC 11.8 hemoglobin 9.6 and platelets 363 RDW 16.8 Sodium 134, potassium 4.0 chloride 99 bicarb 25 BUN 20 and creatinine 1.24 blood sugar 106 and calcium 8.1 and albumin 2.6. Urinalysis showed moderate blood large leukoesterase with elevated RBCs and WBCs. Influenza A, B, RSV and COVID-19 PCR not detected. Patient was given a dose of ceftriaxone and clindamycin while in the ER. 01/12. Patient seen and examined. White count 10.4, hemoglobin 8.8,. States he feels better. Denies any acute issues overnight 01/13. Patient seen and examined. Laying comfortably in the bed. WBC this morning is 10.69, hemoglobin 9, platelet count 370, sodium 137, potassium 4.4, BUN and 22.5, creatinine 1.2 REVIEW OF SYSTEMS: CONSTITUTIONAL: No fever, no malaise,. CARDIOVASCULAR: No chest pain, no palpitations, no syncope. PULMONARY: No shortness of breath, no cough, GASTROINTESTINAL: No diarrhea, no nausea, no vomiting, no abdominal pain. NEUROLOGICAL: No headaches, no weakness, PHYSICAL EXAMINATION: GENERAL: The patient is alert and oriented x3, not in any acute distress. Well developed, well nourished. HEENT: Pupils are round and equally reacting to light. EOMI. No scleral icterus. No conjunctival pallor. Normocephalic, atraumatic. No pharyngeal erythema. No thyromegaly. CARDIOVASCULAR: S1 and S2 present. No murmurs, rubs, or gallops. PULMONARY: Chest is clear to auscultation, no wheezing or crackles. ABDOMEN: Soft, nontender, nondistended, normoactive bowel sounds. No palpable organomegaly. MUSCULOSKELETAL: Left foot bandage in place NEUROLOGICAL: Gross neurological examination did not reveal any focal deficits. SKIN: No rashes. Assessment and plan Acute urinary tract infection related to chronic indwelling Carranza catheter Sepsis secondary to above Left heel ulcer with surrounding cellulitis History of bowel perforation status post colostomy and parastomal hernia., Recent abdominal surgery. Paroxysmal atrial fibrillation on anticoagulation with Eliquis History of DVT/PE History of SVT Hypertension Hyperlipidemia BPH History of CVA with right-sided weakness and speech difficulty Hypoalbuminemia, Mild to moderate protein calorie malnutrition. Normocytic anemia and iron deficiency anemia Prior history of smoking unstageable pressure ulcer to the left heel and lateral border of the left foot with minimal cellulitis Monitor vital signs Monitor CBC Monitor CMP Follow-up on urine cultures Follow-up on blood cultures Continue IV cefepime Wound care consulted Continue Home meds ID following the patient Objective - Vital Signs Vital signs: Vital Signs Temp 98.2 F 01/13/23 07:18 Pulse 72 01/13/23 12:14 Resp 16 01/13/23 07:18 BP 111/51 01/13/23 07:18 Pulse Ox 94 L 01/13/23 07:18 FiO2 Intake & Output 01/12/23 01/13/23 01/13/23 18:59 06:59 18:59 Output Total 2550 1999 50 Balance -2549 Output: Urine 2450 1950 Stool 100 50 50 Other: Voiding Method Indwelling Catheter Indwelling Catheter Indwelling Catheter - Labs CBC & Chem 7: 01/13/23 05:28 01/13/23 05:28 Labs: Abnormal Lab Results - Last 24 Hours (Table) 01/13/23 01/13/23 Range/Units 05:28 05:28 WBC 10.69 H (4.50-10.00) X 10*3/uL RBC 3.43 L (4.40-5.60) X 10*6/uL Hgb 9.0 L (13.0-17.0) g/dL Hct 30.5 L (39.6-50.0) % MCH 26.2 L (27.0-32.0) pg MCHC 29.5 L (32.0-37.0) g/dL RDW 17.3 H (11.5-14.5) % Immature Gran # 0.08 H (0.00-0.04) X 10*3/uL Neutrophils # 8.39 H (1.80-7.70) X 10*3/uL Anion Gap 9.30 L (10.00-18.00) mmol/L Est GFR (CKD-EPI)NonAf 56.3 L (60.0-200.0) Calcium 8.4 L (8.7-10.3) mg/dL AST 41 H (14-35) U/L Alkaline Phosphatase 159 H (41-126) U/L Total Protein 5.7 L (6.2-8.2) g/dL Albumin 2.3 L (3.8-4.9) g/dL Globulin 3.4 H (1.6-3.3) g/dL Albumin/Globulin Ratio 0.67 L (1.60-3.17) g/dL Microbiology - Last 24 Hours (Table) 01/09/23 22:27 Blood Culture Gram Stain - Final Blood Blood Culture - Final Morganella morganii 01/09/23 19:54 Urine Culture - Final Urine,Voided Escherichia coli 01/09/23 22:20 Blood Culture Gram Stain - Final Blood Blood Culture - Final Citrobacter braakii
--- NOTE | 2023-01-13 15:15 | P.PN ---
Subjective Progress Note Date: 01/13/23 Principal diagnosis: UTI and bacteremia Patient is a 87-year-old male with multiple comorbidities recent admission to the hospital with evisceration of his stoma status post surgical repair of the same and the patient was subsequently transferred to the local [place] [facility] patient has not been sent to the ER for evaluation of fever , patient noticed to have a positive urine also positive blood culture On today's evaluation her that is 01/13/2023, the patient remains to be afebrile, patient is breathing comfortably on room air, the patient denies having any chest pain shortness of breath or cough no nausea no vomiting no abdominal pain no diarrhea Objective - Vital Signs Vital signs: Vital Signs Temp 97.8 F 01/13/23 12:45 Pulse 79 01/13/23 12:45 Resp 16 01/13/23 12:45 BP 109/55 01/13/23 13:02 Pulse Ox 94 L 01/13/23 12:45 FiO2 Intake & Output 01/12/23 01/13/23 01/13/23 18:59 06:59 18:59 Output Total 2550 2000 1350 Balance -2550 -2000 -1350 Output: Urine 2450 1950 1200 Stool 100 50 150 Other: Voiding Method Indwelling Catheter Indwelling Catheter Indwelling Catheter - Exam GENERAL DESCRIPTION: An elderly male lying in bed in no distress RESPIRATORY SYSTEM: Unlabored breathing , decreased breath sounds at bases HEART: S1 S2 regular rate and rhythm , ABDOMEN: Soft , no tenderness EXTREMITIES: No edema feet - Labs CBC & Chem 7: 01/13/23 05:28 01/13/23 05:28 Labs: Abnormal Lab Results - Last 24 Hours (Table) 01/13/23 01/13/23 Range/Units 05:28 05:28 WBC 10.69 H (4.50-10.00) X 10*3/uL RBC 3.43 L (4.40-5.60) X 10*6/uL Hgb 9.0 L (13.0-17.0) g/dL Hct 30.5 L (39.6-50.0) % MCH 26.2 L (27.0-32.0) pg MCHC 29.5 L (32.0-37.0) g/dL RDW 17.3 H (11.5-14.5) % Immature Gran # 0.08 H (0.00-0.04) X 10*3/uL Neutrophils # 8.39 H (1.80-7.70) X 10*3/uL Anion Gap 9.30 L (10.00-18.00) mmol/L Est GFR (CKD-EPI)NonAf 56.3 L (60.0-200.0) Calcium 8.4 L (8.7-10.3) mg/dL AST 41 H (14-35) U/L Alkaline Phosphatase 159 H (41-126) U/L Total Protein 5.7 L (6.2-8.2) g/dL Albumin 2.3 L (3.8-4.9) g/dL Globulin 3.4 H (1.6-3.3) g/dL Albumin/Globulin Ratio 0.67 L (1.60-3.17) g/dL Microbiology - Last 24 Hours (Table) 01/09/23 22:27 Blood Culture Gram Stain - Final Blood Blood Culture - Final Morganella morganii 01/09/23 19:54 Urine Culture - Final Urine,Voided Escherichia coli Assessment and Plan (1) Bacteremia Current Visit: Yes Status: Acute Code(s): R78.81 - BACTEREMIA SNOMED Code(s): 3442943 (2) UTI (urinary tract infection) Current Visit: Yes Status: Acute Code(s): N39.0 - URINARY TRACT INFECTION, SITE NOT SPECIFIED SNOMED Code(s): 98630075 Plan: 1patient presented to hospital with sepsis in this patient did have a fever elevated white count and now with evidence of gram-negative bacteremia source is likely catheter associated UTI with a blood culture now growing Enterobacter 2-patient did have a unstageable pressure ulcer to the left heel and lateral bor minnie of the left foot with minimal cellulitis 3-patient also have a stage II pressure ulcer to the sacral area with no cellulitis and unstageable pressure ulcer to the right gluteal area with some slough tissue no surrounding redness 4Patient did have a polymicrobial bacteremia with evidence of Citrobacter and Morganella in the blood question of possible GI source as the urine is growing E. coli, we will check a CT of abdominal pelvis with oral contrast and adjust antibiotics to Zosyn and monitor clinical course closely Time with Patient: Less than 30
[2023-01-13] MEDS: IOPAMIDOL CONTRAST (ORAL USE) VIAL PO PRN ×2 (15:31→16:33)
[2023-01-13] MEDS: PIPERACILLIN-TAZOBACTAM 3.375 GM in SODIUM CHLORIDE 0.9% 100 ML IVPB SCH ×2 (16:31→23:37)
[2023-01-13] MEDS: SODIUM CHLORIDE 0.9% 1,000 ML IV SCH (16:32)
--- NOTE | 2023-01-13 17:29 | CT ---
EXAMINATION TYPE: CT abdomen pelvis wo con DATE OF EXAM: 01/13/2023 HISTORY: Bacteremia and abdominal abscess CT DLP: 502.10 mGycm. Automated Exposure Control for Dose Reduction was Utilized. TECHNIQUE: CT scan of the abdomen and pelvis is performed with oral but without IV contrast. COMPARISON: Prior CT May 01, 2021 FINDINGS: Within the limitations of a non-contrast study, the following observations are made. LUNG BASES: At least small left pleural effusion with associated compressive atelectasis. LIVER/GB: Tiny dependent calcified gallstones. No surrounding fluid or fat stranding PANCREAS: No significant abnormality is seen. SPLEEN: No significant abnormality is seen. ADRENALS: No significant abnormality is seen. KIDNEYS: Some cortical thinning bilaterally. No renal stones or hydronephrosis is seen bilaterally. F oley catheter in bladder which is not decompressed. BOWEL: Oral contrast in the left-sided bowel loops and stomach. No suspicious small or large bowel di latation. Moderate right-sided colonic fecal prominence. Right-sided ostomy noted. GENITAL ORGANS: No gross abnormality seen. LYMPH NODES: No greater than 1cm abdominal or pelvic lymph nodes are appreciated. OSSEOUS STRUCTURES: Underlying scoliosis is redemonstrated. Grade 1 anterolisthesis L4 on L5. Multile julisa disc space narrowing greatest in the lower lumbar spine. Moderate to severe narrowing and spurrin g in both hip joints redemonstrated. OTHER: Mild to moderate diffuse soft tissue subcutaneous edema greatest over the right pelvis. IMPRESSION: No well-formed fluid collection or abscess clearly seen. Moderate colonic fecal stasis. R ight-sided colostomy noted. No bowel obstruction.
[2023-01-14] MEDS: PANTOPRAZOLE 40 MG TABLET PO SCH (05:06)
[2023-01-14] MEDS: FUROSEMIDE 20 MG TAB PO SCH ×2 (07:45→17:49)
[2023-01-14] MEDS: SPIRONOLACTONE 25 MG TAB PO SCH (07:45)
[2023-01-14] MEDS: APIXABAN 2.5 MG TABLET PO SCH ×2 (07:45→16:42)
[2023-01-14] MEDS: THIAMINE 100 MG TAB PO SCH ×2 (07:45→16:42)
[2023-01-14] MEDS: PIPERACILLIN-TAZOBACTAM 3.375 GM in SODIUM CHLORIDE 0.9% 100 ML IVPB SCH ×3 (07:46→23:44)
[2023-01-14] MEDS: METOPROLOL SUCCINATE (ER) 25 MG TAB.ER.24H PO SCH (07:46)
[2023-01-14] MEDS: TAMSULOSIN 0.4 MG CAP.ER.24H PO SCH (07:46)
[2023-01-14] MEDS: AMIODARONE 200 MG TAB PO SCH ×2 (07:47→17:49)
[2023-01-14] MEDS: SODIUM CHLORIDE 0.9% 1,000 ML IV SCH ×2 (08:50→21:48)
[2023-01-14] MEDS: IPRATROPIUM-ALBUTEROL 3 ML NEB INHALATION SCH ×4 (09:07→19:56)
[2023-01-14] MEDS: COLLAGENASE 250 UNIT/GM OINTMENT 30 GM TUBE TOPICAL SCH (10:00)
[2023-01-14 10:58] LABS: Basophils # (A) 0.02 X 10*3/uL (0.00-0.10); Basophils % (A) 0.2 %; Eosinophils # (A) 0.21 X 10*3/uL (0.04-0.35); Eosinophils % (A) 1.7 %; HCT 32.3 % (39.6-50.0); HGB 9.5 g/dL (13.0-17.0); Immature Grans, Automated 0.8 %; Lymphocytes # (A) 0.97 X 10*3/uL (0.90-5.00); Lymphocytes % (A) 7.8 %; MCH 26.3 pg (27.0-32.0); MCHC 29.4 g/dL (32.0-37.0); MCV 89.5 fL (80.0-97.0); Monocytes # (A) 0.61 X 10*3/uL (0.20-1.00); Monocytes % (A) 4.9 %; NRBC Per 100 WBC 0 /100 WBCS (0.0-0.0); Neutrophils # (A) 10.49 X 10*3/uL (1.80-7.70); Neutrophils % (A) 84.6 %; Platelet Count 399 X 10*3/uL (140-440); RBC 3.61 X 10*6/uL (4.40-5.60); RDW 17.2 % (11.5-14.5)
[2023-01-14 11:14] LABS: African American GFR (CKD) 56.9 (60.0-200.0); Albumin 2.4 g/dL (3.8-4.9); Albumin/Globulin Ratio 0.73 (1.60-3.17); Anion Gap 7.7 mmol/L (10.00-18.00); BUN/Creat Ratio 16.77 Ratio (12.00-20.00); Blood Urea Nitrogen 21.8 mg/dL (9.0-27.0); Calcium 8.5 mg/dL (8.7-10.3); Carbon Dioxide 26.3 mmol/L (20.0-27.5); Globulin 3.3 g/dL (1.6-3.3); Non-African American GFR(CKD) 49.1 (60.0-200.0); Potassium 4.4 mmol/L (3.5-5.5); Total Bilirubin 0.3 mg/dL (0.30-1.20); Total Protein 5.7 g/dL (6.2-8.2)
[2023-01-14] MEDS: FOLIC ACID 1 MG TAB PO SCH (12:38)
[2023-01-14] MEDS: MULTIVITAMINS, THERA 1 EACH TAB PO SCH (12:38)
[2023-01-14] MEDS: ASPIRIN 81 MG PO SCH (12:38)
--- NOTE | 2023-01-14 14:54 | P.PN ---
Subjective Progress Note Date: 01/14/23 Patient is a 87-year-old male with a known history of atrial fibrillation on anticoagulation with Eliquis, history of DVT/PE, history of CVA/TIA with right- sided weakness/speech difficulty, hypertension, hyperlipidemia, history of fecal impaction/bowel perforation status post colostomy, parastomal hernia, chronic indwelling Carranza catheter and protein calorie malnutrition and prior history of smoking was sent from [facility] due to complaints of fever. Patient does have left foot wound and is getting wound care at [facility] which is also noted to have increased redness. Patient was febrile with Tmax 100.3 on admission. He was also hypotensive with blood pressure 82/49 on admission. Chest x-ray showed chronic changes and cardiomegaly with small to moderate size left pleural effusion redemonstrated. X-ray of the foot showed osseous structures are demineralized which is noted to lower radiographic sensitivity. Moderate diffuse soft tissue swelling is seen. Flexion of the toes is noted which limits evaluation at this level. No acute displaced fracture. Severe narrowing at the first interphalangeal joint and moderate to severe narrowing at the first metatarsophalangeal joint. No obvious bony structures to suggest acute osteomyelitis. Laboratory showed WBC 11.8 hemoglobin 9.6 and platelets 363 RDW 16.8 Sodium 134, potassium 4.0 chloride 99 bicarb 25 BUN 20 and creatinine 1.24 blood sugar 106 and calcium 8.1 and albumin 2.6. Urinalysis showed moderate blood large leukoesterase with elevated RBCs and WBCs. Influenza A, B, RSV and COVID-19 PCR not detected. Patient was given a dose of ceftriaxone and clindamycin while in the ER. 01/12. Patient seen and examined. White count 10.4, hemoglobin 8.8,. States he feels better. Denies any acute issues overnight 01/13. Patient seen and examined. Laying comfortably in the bed. WBC this morning is 10.69, hemoglobin 9, platelet count 370, sodium 137, potassium 4.4, BUN and 22.5, creatinine 1.2 01/14. Patient seen and examined. Initial lab this morning showed white count 12.4, hemoglobin 9.5, sodium 135, potassium 4.4, BUN 21.8, creatinine 1.3 Patient temperature 99, heart rate 66, respirations 16, blood pressure 98/47 REVIEW OF SYSTEMS: CONSTITUTIONAL: No fever, no malaise,. CARDIOVASCULAR: No chest pain, no palpitations, no syncope. PULMONARY: No shortness of breath, no cough, GASTROINTESTINAL: No diarrhea, no nausea, no vomiting, no abdominal pain. NEUROLOGICAL: No headaches, no weakness, PHYSICAL EXAMINATION: GENERAL: The patient is alert and oriented x3, not in any acute distress. Well developed, well nourished. HEENT: Pupils are round and equally reacting to light. EOMI. No scleral icterus. No conjunctival pallor. Normocephalic, atraumatic. No pharyngeal erythema. No thyromegaly. CARDIOVASCULAR: S1 and S2 present. No murmurs, rubs, or gallops. PULMONARY: Chest is clear to auscultation, no wheezing or crackles. ABDOMEN: Soft, nontender, nondistended, normoactive bowel sounds. No palpable organomegaly. Ostomy seen MUSCULOSKELETAL: Left foot bandage in place NEUROLOGICAL: Gross neurological examination did not reveal any focal deficits. SKIN: No rashes. Assessment and plan Acute urinary tract infection related to chronic indwelling Carranza catheter Sepsis secondary to above Left heel ulcer with surrounding cellulitis History of bowel perforation status post colostomy and parastomal hernia., Recent abdominal surgery. Paroxysmal atrial fibrillation on anticoagulation with Eliquis History of DVT/PE History of SVT Hypertension Hyperlipidemia BPH History of CVA with right-sided weakness and speech difficulty Hypoalbuminemia, Mild to moderate protein calorie malnutrition. Normocytic anemia and iron deficiency anemia Prior history of smoking unstageable pressure ulcer to the left heel and lateral border of the left foot with minimal cellulitis Monitor vital signs Monitor CBC Monitor CMP Follow-up on urine cultures Follow-up on blood cultures Continue IV Zosyn CT abdominal pelvis showed no evidence of any fluid collection or abscess Wound care consulted Continue Home meds ID following the patient Objective - Vital Signs Vital signs: Vital Signs Temp 99.0 F 01/14/23 14:00 Pulse 66 01/14/23 14:00 Resp 16 01/14/23 14:00 BP 104/52 01/14/23 14:00 Pulse Ox 95 01/14/23 14:00 FiO2 Intake & Output 01/13/23 01/14/23 01/14/23 18:59 06:59 18:59 Intake Total 1120 Output Total 1750 3921 775 Balance -1750 -1505 -775 Weight 63.503 kg Intake: Intake, IV Titration 1000 Amount Piperacillin-Tazobactam 3 100 .375 gm In Sodium Chloride 0.9% 100 ml @ 25 mls/hr IVPB Q8HR PENDING [facility] TO [facility] Rx# :[id number] Sodium Chloride 0.9% 1, 900 000 ml @ 75 mls/hr IV . [id number] PENDING SALE TO [facility] Rx#:[id number] Oral 120 Output: Urine 1550 2600 725 Stool 200 25 50 Other: Voiding Method Indwelling Catheter Indwelling Catheter Indwelling Catheter - Labs CBC & Chem 7: 01/14/23 06:13 01/14/23 06:13 Labs: Abnormal Lab Results - Last 24 Hours (Table) 01/14/23 01/14/23 Range/Units 06:13 06:13 WBC 12.40 H (4.50-10.00) X 10*3/uL RBC 3.61 L (4.40-5.60) X 10*6/uL Hgb 9.5 L (13.0-17.0) g/dL Hct 32.3 L (39.6-50.0) % MCH 26.3 L (27.0-32.0) pg MCHC 29.4 L (32.0-37.0) g/dL RDW 17.2 H (11.5-14.5) % Immature Gran # 0.10 H (0.00-0.04) X 10*3/uL Neutrophils # 10.49 H (1.80-7.70) X 10*3/uL Anion Gap 7.70 L (10.00-18.00) mmol/L Est GFR (CKD-EPI)AfAm 56.9 L (60.0-200.0) Est GFR (CKD-EPI)NonAf 49.1 L (60.0-200.0) Calcium 8.5 L (8.7-10.3) mg/dL AST 37 H (14-35) U/L Alkaline Phosphatase 171 H (41-126) U/L Total Protein 5.7 L (6.2-8.2) g/dL Albumin 2.4 L (3.8-4.9) g/dL Albumin/Globulin Ratio 0.73 L (1.60-3.17) g/dL
[2023-01-14] MEDS ORDERED: LIDOCAINE 1% INJ 10MG/ML (30 ML VIAL-PF) SQ ONE (17:28)
--- NOTE | 2023-01-14 17:28 | P.GSCN ---
History of Present Illness History of present illness: 87-year-old gentleman consulted for chronic wound on the left foot involving the heel and lateral aspect of the foot and dorsal aspect the foot patient is under care of infectious disease and [facility] IV antibiotic. Left heel wound is measurement is 7 x 5 4 cm with necrotic tissue and a infected eschar patient also has a wound on the lateral aspect of the foot measurement is 2 x 1 cm and a lso patient has a wound on the dorsal aspect of the foot with some exposed tendon Neck examination neck is supple no bruit appreciated Chest good and both lungs few crackles at the lung bases Abdomen is soft post colostomy Vascular femorals are 1+ bilateral PTDP not palpable Plan is debridement of the wound with deep culture Past Medical History Past Medical History: Atrial Fibrillation, CVA/TIA, Deep Vein Thrombosis (DVT), Hyperlipidemia, Hypertension, Prostate Disorder, Pulmonary Embolus (PE), Supraventricular Tachycardia (SVT) Additional Past Medical History / Comment(s): 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 History of Any Multi-Drug Resistant Organisms: None Reported Past Surgical History: Bowel Resection Additional Past Surgical History / Comment(s): 2020 bowel resection/colostomy, CVA in 1955 which made need for R elbow surgery/R ankle fusion, post cva surgery on back to remove blood clot, bilateral eye lens implants. Past Anesthesia/Blood Transfusion Reactions: No Reported Reaction Additional Past Anesthesia/Blood Transfusion Reaction / Comm: Pt believes he has received blood in past without reaction. Past Psychological History: No Psychological Hx Reported Additional Psychological History / Comment(s): Pt lives at [facility], Smoking Status: Former smoker Past Alcohol Use History: None Reported Additional Past Alcohol Use History / Comment(s): Pt started smoking a pipe in 1967 and quit in 1995. Past Drug Use History: None Reported - Past Family History Mother Family Medical History: Dementia Additional Family Medical History / Comment(s): ALZHEIMERS Father Family Medical History: No Reported History Additional Family Medical History / Comment(s): Pt states his father was healthy Medications and Allergies Home Medications Medication Instructions Recorded Confirmed Type Tamsulosin HCl [Flomax] 0.4 mg PO DAILY@0800 02/14/18 01/09/23 History Pantoprazole Sodium [Protonix] 40 mg PO DAILY@0600 10/20/22 01/09/23 History Albuterol Inhaler [Ventolin Hfa 2 puff INHALATION RT-Q6H 10/28/22 01/09/23 History Inhaler] Apixaban [Eliquis] 2.5 mg PO BID@0800,1700 10/28/22 01/09/23 History Aspirin 81 mg PO DAILY@1200 10/28/22 01/09/23 History Ensure Enlive 237 ml PO TID@0800,1200,1700 10/28/22 01/09/23 History Eucerin Advanced Repair Cream 1 applic TOPICAL DAILY 10/28/22 01/09/23 History Eucerin Advanced Repair Cream 1 applic TOPICAL DAILY PRN 10/28/22 01/09/23 History Magnesium Hydroxide [Milk of 7,200 mg PO Q48H PRN 10/28/22 01/09/23 History Magnesia Concentrate] Na Phos,M-B/Na Phos,Di-Ba [Fleet 133 ml RECTAL DAILY PRN 10/28/22 01/09/23 History Adult] bisacodyL [Dulcolax] 10 mg RECTAL DAILY PRN 10/28/22 01/09/23 History Amiodarone [Cordarone] 200 mg PO BID@0800,1700 12/14/22 01/09/23 History Folic Acid 1 mg PO DAILY@1200 tab 12/25/22 01/09/23 Rx HYDROcodone/APAP 5-325MG [[place] 1 tab PO Q6HR PRN 3 Days #12 tab 12/25/22 01/09/23 Rx 5-325] Collagenase [Santyl Ointment] 1 applic TOPICAL DAILY 01/09/23 01/09/23 History Dapagliflozin Propanediol [Farxiga] 10 mg PO DAILY@0800 01/09/23 01/09/23 History Ferrous Sulfate [Feosol] 325 mg PO DAILY@1700 01/09/23 01/09/23 History Furosemide [Lasix] 20 mg PO BID@0800,1700 01/09/23 01/09/23 History Lactulose 30 gm PO DAILY@0800 01/09/23 01/09/23 History Metoprolol Succinate (ER) [Toprol 12.5 mg PO DAILY@0800 01/09/23 01/09/23 History XL] Multivitamins, Thera [Multivitamin 1 tab PO DAILY@1200 01/09/23 01/09/23 History (formulary)] Spironolactone [Aldactone] 25 mg PO DAILY@0800 01/09/23 01/09/23 History Thiamine [Vitamin B-1] 100 mg PO BID@0800,1700 01/09/23 01/09/23 History polyethylene glycoL 3350 [Miralax] 17 gm PO DAILY@0800 01/09/23 01/09/23 History Allergies Allergy/AdvReac Type Severity Reaction Status Date / Time memantine [From Namenda] AdvReac Nausea & Verified 01/09/23 21:42 Vomiting & Diarrhea Surgical - Exam Vital Signs Temp Pulse Resp BP Pulse Ox 97.9 F 78 18 100/50 97 01/09/23 18:37 01/09/23 18:37 01/09/23 18:37 01/09/23 18:37 01/09/23 18:37 Results - Labs 01/14/23 06:13 01/14/23 06:13 Abnormal Lab Results - Last 24 Hours (Table) 01/14/23 01/14/23 Range/Units 06:13 06:13 WBC 12.40 H (4.50-10.00) X 10*3/uL RBC 3.61 L (4.40-5.60) X 10*6/uL Hgb 9.5 L (13.0-17.0) g/dL Hct 32.3 L (39.6-50.0) % MCH 26.3 L (27.0-32.0) pg MCHC 29.4 L (32.0-37.0) g/dL RDW 17.2 H (11.5-14.5) % Immature Gran # 0.10 H (0.00-0.04) X 10*3/uL Neutrophils # 10.49 H (1.80-7.70) X 10*3/uL Anion Gap 7.70 L (10.00-18.00) mmol/L Est GFR (CKD-EPI)AfAm 56.9 L (60.0-200.0) Est GFR (CKD-EPI)NonAf 49.1 L (60.0-200.0) Calcium 8.5 L (8.7-10.3) mg/dL AST 37 H (14-35) U/L Alkaline Phosphatase 171 H (41-126) U/L Total Protein 5.7 L (6.2-8.2) g/dL Albumin 2.4 L (3.8-4.9) g/dL Albumin/Globulin Ratio 0.73 L (1.60-3.17) g/dL Diabetes panel 01/14/23 Range/Units 06:13 Sodium 135 (135-145) mmol/L Potassium 4.4 (3.5-5.5) mmol/L Chloride 101 (96-109) mmol/L Carbon Dioxide 26.3 (20.0-27.5) mmol/L BUN 21.8 (9.0-27.0) mg/dL Creatinine 1.3 (0.6-1.5) mg/dL Glucose 89 (70-110) mg/dL Calcium 8.5 L (8.7-10.3) mg/dL AST 37 H (14-35) U/L ALT 40 (10-49) U/L Alkaline Phosphatase 171 H (41-126) U/L Total Protein 5.7 L (6.2-8.2) g/dL Albumin 2.4 L (3.8-4.9) g/dL Calcium panel 01/14/23 Range/Units 06:13 Calcium 8.5 L (8.7-10.3) mg/dL Albumin 2.4 L (3.8-4.9) g/dL Pituitary panel 01/14/23 Range/Units 06:13 Sodium 135 (135-145) mmol/L Potassium 4.4 (3.5-5.5) mmol/L Chloride 101 (96-109) mmol/L Carbon Dioxide 26.3 (20.0-27.5) mmol/L BUN 21.8 (9.0-27.0) mg/dL Creatinine 1.3 (0.6-1.5) mg/dL Glucose 89 (70-110) mg/dL Calcium 8.5 L (8.7-10.3) mg/dL Adrenal panel 01/14/23 Range/Units 06:13 Sodium 135 (135-145) mmol/L Potassium 4.4 (3.5-5.5) mmol/L Chloride 101 (96-109) mmol/L Carbon Dioxide 26.3 (20.0-27.5) mmol/L BUN 21.8 (9.0-27.0) mg/dL Creatinine 1.3 (0.6-1.5) mg/dL Glucose 89 (70-110) mg/dL Calcium 8.5 L (8.7-10.3) mg/dL Total Bilirubin 0.30 (0.30-1.20) mg/dL AST 37 H (14-35) U/L ALT 40 (10-49) U/L Alkaline Phosphatase 171 H (41-126) U/L Total Protein 5.7 L (6.2-8.2) g/dL Albumin 2.4 L (3.8-4.9) g/dL
--- NOTE | 2023-01-14 17:32 | P.PCN ---
Description of Procedure: Preoperative diagnoses is pressure ulcer left heel infected eschar and devitalized tissue measurement is 7 x 4 wound #2 is on the lateral aspect of the foot measurement is 2 x 1 cm with devitalized tissue and her wound #30 on the dorsal aspect of the foot to tendons are exposed Postoperative wound #1 measurement is 7 x 4 x 1 cm #2 measurement is post debridement 2 x 1 x 0.5 cm Procedure the left foot was prepped and draped applied sterile manner 1% lidocaine for infected on the left heel and lower leg lateral aspect of the foot there wound was debrided on the left heel down to separate his tissue fat and the fascia all the devitalized tissue was removed by sharp knife and treated to the deep culture which was sent for for culture aerobic and anaerobic then patient had a wound on the lateral aspect of the foot using knife we did the debridement down to separate his tissue and the fact debridement last tissue was removed and no active bleeding was noted Santyl cream was applied to the heel and on the lateral aspect of the foot and dorsal aspect of the foot patient are to the procedure well. Plan is change dressing daily with Santyl cream follow with you postop
[2023-01-15] MEDS: PANTOPRAZOLE 40 MG TABLET PO SCH (05:26)
--- NOTE | 2023-01-15 07:56 | P.PN ---
Subjective Progress Note Date: 01/14/23 Principal diagnosis: UTI and bacteremia Patient is a 87-year-old male with multiple comorbidities recent admission to the hospital with evisceration of his stoma status post surgical repair of the same and the patient was subsequently transferred to the local shelter for rehab patient has not been sent to the ER for evaluation of fever , patient noticed to have a positive urine also positive blood culture On today's evaluation her that is 01/14/2023, the patient is afebrile, patient is breathing comfortably on room air, the patient denies chest pain shortness of breath or cough no nausea no vomiting no abdominal pain no diarrhea has been reported Objective - Vital Signs Vital signs: Vital Signs Temp 98.1 F 01/14/23 07:09 Pulse 64 01/14/23 12:16 Resp 16 01/14/23 07:09 BP 102/50 01/14/23 07:09 Pulse Ox 95 01/14/23 07:09 FiO2 Intake & Output 01/13/23 01/14/23 01/14/23 18:59 06:59 18:59 Intake Total 1120 Output Total 1757 1705 775 Balance -8762 -1505 -775 Intake: Intake, IV Titration 1000 Amount Piperacillin-Tazobactam 3 100 .375 gm In Sodium Chloride 0.9% 100 ml @ 25 mls/hr IVPB Q8HR [facility] Rx# :[id number] Sodium Chloride 0.9% 1, 900 000 ml @ 75 mls/hr IV . [id number] [facility] Rx#:[id number] Oral 120 Output: Urine 1550 2600 725 Stool 200 25 50 Other: Voiding Method Indwelling Catheter Indwelling Catheter Indwelling Catheter - Exam GENERAL DESCRIPTION: An elderly male lying in bed in no distress RESPIRATORY SYSTEM: Unlabored breathing , decreased breath sounds at bases HEART: S1 S2 regular rate and rhythm , ABDOMEN: Soft , no tenderness EXTREMITIES: No edema feet - Labs CBC & Chem 7: 01/14/23 06:13 01/14/23 06:13 Labs: Abnormal Lab Results - Last 24 Hours (Table) 01/14/23 01/14/23 Range/Units 06:13 06:13 WBC 12.40 H (4.50-10.00) X 10*3/uL RBC 3.61 L (4.40-5.60) X 10*6/uL Hgb 9.5 L (13.0-17.0) g/dL Hct 32.3 L (39.6-50.0) % MCH 26.3 L (27.0-32.0) pg MCHC 29.4 L (32.0-37.0) g/dL RDW 17.2 H (11.5-14.5) % Immature Gran # 0.10 H (0.00-0.04) X 10*3/uL Neutrophils # 10.49 H (1.80-7.70) X 10*3/uL Anion Gap 7.70 L (10.00-18.00) mmol/L Est GFR (CKD-EPI)AfAm 56.9 L (60.0-200.0) Est GFR (CKD-EPI)NonAf 49.1 L (60.0-200.0) Calcium 8.5 L (8.7-10.3) mg/dL AST 37 H (14-35) U/L Alkaline Phosphatase 171 H (41-126) U/L Total Protein 5.7 L (6.2-8.2) g/dL Albumin 2.4 L (3.8-4.9) g/dL Albumin/Globulin Ratio 0.73 L (1.60-3.17) g/dL Microbiology - Last 24 Hours (Table) 01/09/23 22:27 Blood Culture Gram Stain - Final Blood Blood Culture - Final Morganella morganii Assessment and Plan (1) Bacteremia Current Visit: Yes Status: Acute Code(s): R78.81 - BACTEREMIA SNOMED Code(s): 2834688 (2) UTI (urinary tract infection) Current Visit: Yes Status: Acute Code(s): N39.0 - URINARY TRACT INFECTION, SITE NOT SPECIFIED SNOMED Code(s): 34666992 Plan: 1patient presented to hospital with sepsis in this patient did have a fever elevated white count and now with evidence of gram-negative bacteremia source is likely catheter associated UTI with a blood culture now growing Enterobacter 2-patient did have a unstageable pressure ulcer to the left heel and lateral border of the left foot with minimal cellulitis , vascualr surgery consulted for possible debridment and local care 3-patient also have a stage II pressure ulcer to the sacral area with no cellulitis and unstageable pressure ulcer to the right gluteal area with some slough tissue no surrounding redness 4Patient did have a polymicrobial bacteremia with evidence of Citrobacter and Morganella in the blood question of possible GI source as the urine is growing E. coli, however CT of abdominal pelvis with oral contrast didnot show any abscess or colitis , we will continue zosyn and wait for repeat cultures to be finalized Time with Patient: Less than 30
[2023-01-15] MEDS: IPRATROPIUM-ALBUTEROL 3 ML NEB INHALATION SCH ×4 (08:01→21:02)
[2023-01-15] MEDS: THIAMINE 100 MG TAB PO SCH ×2 (09:12→18:06)
[2023-01-15] MEDS: PIPERACILLIN-TAZOBACTAM 3.375 GM in SODIUM CHLORIDE 0.9% 100 ML IVPB SCH ×2 (09:12→16:01)
[2023-01-15] MEDS: APIXABAN 2.5 MG TABLET PO SCH ×2 (09:12→18:06)
[2023-01-15] MEDS: METOPROLOL SUCCINATE (ER) 25 MG TAB.ER.24H PO SCH (09:13)
[2023-01-15] MEDS: TAMSULOSIN 0.4 MG CAP.ER.24H PO SCH (09:13)
[2023-01-15] MEDS: FUROSEMIDE 20 MG TAB PO SCH ×2 (09:14→18:06)
[2023-01-15] MEDS: COLLAGENASE 250 UNIT/GM OINTMENT 30 GM TUBE TOPICAL SCH (09:14)
--- NOTE | 2023-01-15 10:14 | PN ---
PROGRESS NOTE This is an 87-year-old gentleman, who came with longstanding history of pressure ulcer, left heel and lateral aspect of the foot and dorsal aspect of the foot. Yesterday, we did extensive debridement and we sent the deep tissue for culture. We have been using Santyl cream. The patient is on IV antibiotic under the care of Infectious Disease. Today, we changed the dressing using Santyl cream, which we continued. The patient is on IV antibiotic, he is under care of Infectious Disease. Follow with you. MMODL / IJN: [id number] /
[2023-01-15] MEDS: AMIODARONE 200 MG TAB PO SCH ×2 (10:55→18:06)
[2023-01-15] MEDS: SODIUM CHLORIDE 0.9% 1,000 ML IV SCH (10:55)
[2023-01-15] MEDS: SPIRONOLACTONE 25 MG TAB PO SCH (10:55)
--- NOTE | 2023-01-15 12:30 | P.PN ---
Subjective Progress Note Date: 01/15/23 Principal diagnosis: UTI and bacteremia Patient is a 87-year-old male with multiple comorbidities recent admission to the hospital with evisceration of his stoma status post surgical repair of the same and the patient was subsequently transferred to the local senior living for rehab patient has not been sent to the ER for evaluation of fever , patient noticed to have a positive urine also positive blood culture, the patient is status post debridement of the left heel pressure ulcer completed surgery and cultures completed on 01/14/2023 On today's evaluation her that is 01/15/2023, the patient continues to be afebrile, patient is breathing comfortably on room air, the patient denies chest pain shortness of breath or cough no nausea no vomiting no abdominal pain no diarrhea has been reported Objective - Vital Signs Vital signs: Vital Signs Temp 97.6 F 01/15/23 11:24 Pulse 68 01/15/23 11:42 Resp 16 01/15/23 11:24 BP 111/59 01/15/23 11:24 Pulse Ox 97 01/15/23 11:24 FiO2 Intake & Output 01/14/23 01/15/23 01/15/23 18:59 06:59 18:59 Intake Total 1060 Output Total 1450 1225 100 Balance -1450 -165 -100 Weight 63.503 kg Intake: Intake, IV Titration 1000 Amount Piperacillin-Tazobactam 3 100 .375 gm In Sodium Chloride 0.9% 100 ml @ 25 mls/hr IVPB Q8HR [facility] Rx# :[id number] Sodium Chloride 0.9% 1, 900 000 ml @ 75 mls/hr IV . [id number] [facility] Rx#:[id number] Oral 60 Output: Urine 1350 1200 Stool 100 25 100 Other: Voiding Method Indwelling Catheter Indwelling Catheter Indwelling Catheter - Exam GENERAL DESCRIPTION: An elderly male lying in bed in no distress RESPIRATORY SYSTEM: Unlabored breathing , decreased breath sounds at bases HEART: S1 S2 regular rate and rhythm , ABDOMEN: Soft , no tenderness EXTREMITIES: No edema feet - Labs CBC & Chem 7: 01/14/23 06:13 01/14/23 06:13 Labs: Microbiology - Last 24 Hours (Table) 01/14/23 17:11 Gram Stain - Preliminary Heel - Left Tissue Culture - Preliminary 01/14/23 17:11 Anaerobic Culture - Preliminary Heel - Left Assessment and Plan (1) Bacteremia Current Visit: Yes Status: Acute Code(s): R78.81 - BACTEREMIA SNOMED Code(s): 4066790 (2) UTI (urinary tract infection) Current Visit: Yes Status: Acute Code(s): N39.0 - URINARY TRACT INFECTION, SITE NOT SPECIFIED SNOMED Code(s): 53943051 Plan: 1patient presented to hospital with sepsis in this patient did have a fever elevated white count and now with evidence of gram-negative bacteremia source is likely catheter associated UTI with a blood culture now growing Enterobacter 2-patient did have a unstageable pressure ulcer to the left heel and lateral border of the left foot with minimal cellulitis , vascualr surgery has evaluated the patient and the patient is status post surgical debridment and deep cultures which are currently pending 3-patient also have a stage II pressure ulcer to the sacral area with no cellulitis and unstageable pressure ulcer to the right gluteal area with some slough tissue no surrounding redness 4Patient did have a polymicrobial bacteremia with evidence of Citrobacter and Morganella in the blood question of possible GI source as the urine is growing E. coli, however CT of abdominal pelvis with oral contrast didnot show any abscess or colitis 5-we will continue the patient on Zosyn while waiting for the left heel culture to be finalized to determine his discharge antibiotics Time with Patient: Less than 30
[2023-01-15] MEDS: ASPIRIN 81 MG PO SCH (12:45)
[2023-01-15] MEDS: FOLIC ACID 1 MG TAB PO SCH (12:45)
[2023-01-15] MEDS: MULTIVITAMINS, THERA 1 EACH TAB PO SCH (12:45)
--- NOTE | 2023-01-15 14:10 | P.PN ---
Subjective Progress Note Date: 01/15/23 Patient is a 87-year-old male with a known history of atrial fibrillation on anticoagulation with Eliquis, history of DVT/PE, history of CVA/TIA with right- sided weakness/speech difficulty, hypertension, hyperlipidemia, history of fecal impaction/bowel perforation status post colostomy, parastomal hernia, chronic indwelling Carranza catheter and protein calorie malnutrition and prior history of smoking was sent from [facility] due to complaints of fever. Patient does have left foot wound and is getting wound care at detention which is also noted to have increased redness. Patient was febrile with Tmax 100.3 on admission. He was also hypotensive with blood pressure 82/49 on admission. Chest x-ray showed chronic changes and cardiomegaly with small to moderate size left pleural effusion redemonstrated. X-ray of the foot showed osseous structures are demineralized which is noted to lower radiographic sensitivity. Moderate diffuse soft tissue swelling is seen. Flexion of the toes is noted which limits evaluation at this level. No acute displaced fracture. Severe narrowing at the first interphalangeal joint and moderate to severe narrowing at the first metatarsophalangeal joint. No obvious bony structures to suggest acute osteomyelitis. Laboratory showed WBC 11.8 hemoglobin 9.6 and platelets 363 RDW 16.8 Sodium 134, potassium 4.0 chloride 99 bicarb 25 BUN 20 and creatinine 1.24 blood sugar 106 and calcium 8.1 and albumin 2.6. Urinalysis showed moderate blood large leukoesterase with elevated RBCs and WBCs. Influenza A, B, RSV and COVID-19 PCR not detected. Patient was given a dose of ceftriaxone and clindamycin while in the ER. 01/12. Patient seen and examined. White count 10.4, hemoglobin 8.8,. States he feels better. Denies any acute issues overnight 01/13. Patient seen and examined. Laying comfortably in the bed. WBC this morning is 10.69, hemoglobin 9, platelet count 370, sodium 137, potassium 4.4, BUN and 22.5, creatinine 1.2 01/14. Patient seen and examined. Initial lab this morning showed white count 12.4, hemoglobin 9.5, sodium 135, potassium 4.4, BUN 21.8, creatinine 1.3 Patient temperature 99, heart rate 66, respirations 16, blood pressure 98/47 01/15. Patient seen and examined. No acute issues overnight. ID waiting on final culture results to be finalized before finalizing antibiotic plan REVIEW OF SYSTEMS: CONSTITUTIONAL: No fever, no malaise,. CARDIOVASCULAR: No chest pain, no palpitations, no syncope. PULMONARY: No shortness of breath, no cough, GASTROINTESTINAL: No diarrhea, no nausea, no vomiting, no abdominal pain. NEUROLOGICAL: No headaches, no weakness, PHYSICAL EXAMINATION: GENERAL: The patient is alert and oriented x3, not in any acute distress. Well developed, well nourished. HEENT: Pupils are round and equally reacting to light. EOMI. No scleral icterus. No conjunctival pallor. Normocephalic, atraumatic. No pharyngeal erythema. No thyromegaly. CARDIOVASCULAR: S1 and S2 present. No murmurs, rubs, or gallops. PULMONARY: Chest is clear to auscultation, no wheezing or crackles. ABDOMEN: Soft, nontender, nondistended, normoactive bowel sounds. No palpable organomegaly. Ostomy seen MUSCULOSKELETAL: Left foot bandage in place NEUROLOGICAL: Gross neurological examination did not reveal any focal deficits. SKIN: No rashes. Assessment and plan Acute urinary tract infection related to chronic indwelling Carranza catheter Sepsis secondary to above Left heel ulcer with surrounding cellulitis History of bowel perforation status post colostomy and parastomal hernia., Recent abdominal surgery. Paroxysmal atrial fibrillation on anticoagulation with Eliquis History of DVT/PE History of SVT Hypertension Hyperlipidemia BPH History of CVA with right-sided weakness and speech difficulty Hypoalbuminemia, Mild to moderate protein calorie malnutrition. Normocytic anemia and iron deficiency anemia Prior history of smoking unstageable pressure ulcer to the left heel and lateral border of the left foot with minimal cellulitis Monitor vital signs Monitor CBC Monitor CMP Continue IV Zosyn CT abdominal pelvis showed no evidence of any fluid collection or abscess Wound care consulted Continue Home meds ID following the patient Objective - Vital Signs Vital signs: Vital Signs Temp 97.6 F 01/15/23 11:24 Pulse 68 01/15/23 11:42 Resp 16 01/15/23 11:24 BP 111/59 01/15/23 11:24 Pulse Ox 97 01/15/23 11:24 FiO2 Intake & Output 01/14/23 01/15/23 01/15/23 18:59 06:59 18:59 Intake Total 1060 Output Total 1450 1225 1200 Balance -1450 -165 -1200 Weight 63.503 kg Intake: Intake, IV Titration 1000 Amount Piperacillin-Tazobactam 3 100 .375 gm In Sodium Chloride 0.9% 100 ml @ 25 mls/hr IVPB Q8HR COUNT INCLUDES THE [facility] Rx# :[id number] Sodium Chloride 0.9% 1, 900 000 ml @ 75 mls/hr IV . [id number] COUNT INCLUDES THE [facility] Rx#:[id number] Oral 60 Output: Urine 1350 1200 1100 Stool 100 25 100 Other: Voiding Method Indwelling Catheter Indwelling Catheter Indwelling Catheter - Labs CBC & Chem 7: 01/14/23 06:13 01/14/23 06:13 Labs: Microbiology - Last 24 Hours (Table) 01/14/23 17:11 Gram Stain - Preliminary Heel - Left Tissue Culture - Preliminary 01/14/23 17:11 Anaerobic Culture - Preliminary Heel - Left
[2023-01-16] MEDS: PIPERACILLIN-TAZOBACTAM 3.375 GM in SODIUM CHLORIDE 0.9% 100 ML IVPB SCH ×4 (00:36→23:59)
[2023-01-16] MEDS: SODIUM CHLORIDE 0.9% 1,000 ML IV SCH ×3 (01:42→15:50)
[2023-01-16] MEDS: PANTOPRAZOLE 40 MG TABLET PO SCH (05:13)
[2023-01-16] MEDS: SPIRONOLACTONE 25 MG TAB PO SCH (08:41)
[2023-01-16] MEDS: METOPROLOL SUCCINATE (ER) 25 MG TAB.ER.24H PO SCH (08:41)
[2023-01-16] MEDS: APIXABAN 2.5 MG TABLET PO SCH ×3 (08:42→16:18)
[2023-01-16] MEDS: ASPIRIN 81 MG PO SCH ×2 (08:42→16:17)
[2023-01-16] MEDS: THIAMINE 100 MG TAB PO SCH ×2 (08:42→17:41)
[2023-01-16] MEDS: TAMSULOSIN 0.4 MG CAP.ER.24H PO SCH (08:43)
[2023-01-16] MEDS: FUROSEMIDE 20 MG TAB PO SCH ×2 (08:43→17:41)
[2023-01-16] MEDS: AMIODARONE 200 MG TAB PO SCH ×2 (08:43→17:41)
[2023-01-16] MEDS: MULTIVITAMINS, THERA 1 EACH TAB PO SCH (08:44)
[2023-01-16] MEDS: FOLIC ACID 1 MG TAB PO SCH (08:44)
[2023-01-16] MEDS: IPRATROPIUM-ALBUTEROL 3 ML NEB INHALATION SCH ×4 (09:01→20:22)
[2023-01-16 10:50] LABS: Basophils # (A) 0.01 X 10*3/uL (0.00-0.10); Basophils % (A) 0.1 %; Eosinophils # (A) 0.46 X 10*3/uL (0.04-0.35); HCT 32.7 % (39.6-50.0); HGB 9.8 g/dL (13.0-17.0); Immature Grans, Automated 1.3 %; Lymphocytes # (A) 1.15 X 10*3/uL (0.90-5.00); Lymphocytes % (A) 9.9 %; MCH 26.6 pg (27.0-32.0); MCV 88.9 fL (80.0-97.0); Mean Platelet Volume 10.5 fL (9.5-12.2); Monocytes # (A) 0.52 X 10*3/uL (0.20-1.00); Monocytes % (A) 4.5 %; NRBC Per 100 WBC 0 /100 WBCS (0.0-0.0); Neutrophils # (A) 9.31 X 10*3/uL (1.80-7.70); Neutrophils % (A) 80.2 %; Platelet Count 427 X 10*3/uL (140-440); RBC 3.68 X 10*6/uL (4.40-5.60); RDW 17.2 % (11.5-14.5)
[2023-01-16 11:06] LABS: African American GFR (CKD) 47.8 (60.0-200.0); Albumin 2.4 g/dL (3.8-4.9); Albumin/Globulin Ratio 0.67 (1.60-3.17); Anion Gap 10.4 mmol/L (10.00-18.00); BUN/Creat Ratio 13.93 Ratio (12.00-20.00); Blood Urea Nitrogen 20.9 mg/dL (9.0-27.0); C Reactive Protein 5.2 mg/dL (0.00-0.80); Calcium 8.6 mg/dL (8.7-10.3); Carbon Dioxide 23.6 mmol/L (20.0-27.5); Globulin 3.6 g/dL (1.6-3.3); Non-African American GFR(CKD) 41.3 (60.0-200.0); Potassium 4.1 mmol/L (3.5-5.5); Total Bilirubin 0.3 mg/dL (0.30-1.20)
[2023-01-16 12:03] LABS: Erythrocyte Sedimentation Rate 95 mm/Hr (0-20)
[2023-01-16] MEDS: COLLAGENASE 250 UNIT/GM OINTMENT 30 GM TUBE TOPICAL SCH (13:09)
--- NOTE | 2023-01-16 16:23 | P.PN ---
Progress Note - Text Patient has history of 4 chronic wound left lower extremity involving the heel area and lateral aspect the foot and dorsum aspect the foot patient had a debridement done and with deep culture patient is under care of her infectious disease we've been treating with local wound care using Santyl cream. Today we have changed the dressing using Santyl cream which will be continued on daily basis. Patient is scheduled to have a Gan catheter for long-term antibiotic we'll schedule for tomorrow keep the patient nothing by mouth midnight and concern for Gan catheter placement
[2023-01-17] MEDS: PANTOPRAZOLE 40 MG TABLET PO SCH (05:47)
[2023-01-17] MEDS: IPRATROPIUM-ALBUTEROL 3 ML NEB INHALATION SCH ×4 (07:52→20:38)
[2023-01-17 08:42] LABS: Basophils # (A) 0.03 X 10*3/uL (0.00-0.10); Basophils % (A) 0.2 %; Eosinophils # (A) 0.35 X 10*3/uL (0.04-0.35); Eosinophils % (A) 2.9 %; HCT 31.9 % (39.6-50.0); HGB 9.3 g/dL (13.0-17.0); Immature Grans, Automated 1.7 %; Lymphocytes % (A) 11.4 %; MCHC 29.2 g/dL (32.0-37.0); MCV 89.1 fL (80.0-97.0); Mean Platelet Volume 10.5 fL (9.5-12.2); Monocytes # (A) 0.54 X 10*3/uL (0.20-1.00); Monocytes % (A) 4.4 %; NRBC Per 100 WBC 0 /100 WBCS (0.0-0.0); Neutrophils # (A) 9.73 X 10*3/uL (1.80-7.70); Neutrophils % (A) 79.4 %; Platelet Count 418 X 10*3/uL (140-440); RBC 3.58 X 10*6/uL (4.40-5.60); RDW 17.1 % (11.5-14.5); WBC 12.26 X 10*3/uL (4.50-10.00)
--- NOTE | 2023-01-17 08:45 | CDI ---
Documentation Clarification Form Date: 01/17/2023 8:40:51 AM From: Kristine Hewitt RN, CCDS Admit Date: 01/09/2023 10:27:00 PM Patient Name: Justo Bright Visit Number: [id number] Discharge Date: ATTENTION: The Clinical Documentation Specialists (CDI) and [facility] Coding Staff appreciate your assistance in clarifying documentation. Please respond to the clarification below the line at the bottom and electronically sign. The CDI & [facility] Coding staff will review the response and follow-up if needed. Please note: Queries are made part of the Legal Health Record. If you have any questions, please contact the author of this message via ITS. Dr. Sid Love Multiple areas of debridement are documented in the procedure note on 01/14/23. Additional clarification regarding the procedure is requested. History/Risk Factors: Atrial Fibrillation, CVA, DVT, Hyperlipidemia, Hypertension Pulmonary Embolus, Former smoker Clinical Indicators: 87-year-old male present from ECF with pre-existing wound to the left foot. Left heel wound is measurement 7 x 5 x4 cm with necrotic tissue and infected eschar and wound on the lateral aspect of the foot measurement is 2 x1 cm and also patient has a wound on the dorsal aspect of foot with some exposed tendon. 01/14/23 Procedure: the left heel and lower aspect of the foot their wound was debrided on the left heel down to separate his tissue fat and the fascia all the devitalized tissue was removed by sharp knife and treated to the deep culture. Treatment: Dressing change with Santyl cream per orders Clindamycin 600 MG IVPB Once 01/09 Maxipime 2 GM IVPB Q 12 Hrs. 01/10-01/13 Zosyn 3.375 GM IVPB Q 8 Hrs. 01/13-01/16 Please further clarify the type of procedure performed: [ ] Excisional debridement (the removal of necrotic, devitalized tissue or slough by means of cutting away of tissue) [ ] Non-excisional debridement (the removal of necrotic, devitalized tissue or slough by means of flushing, brushing, or washing. (Irrigation) [ ] Other; please specify [ ] Unable to determine. Five elements required for accurate and compliant documentation of a debridement: Technique used (e.g., excisional, excised, cutting, brushing, jet lavage etc.) Instrument(s) used (e.g., scalpel, curette, etc.) Nature of the tissue removed (e.g., necrotic, devitalized tissues, non-viable tissue, etc.) Appearance and size of the wound (e.g., down to fresh bleeding tissue, 7cm x 10cm, etc.) Depth of the debridement* (e.g., skin, subcutaneous tissue, fascia, muscle, bone, etc.) (Template Last Revised: October 2020) MTDD
[2023-01-17 09:12] LABS: African American GFR (CKD) 62.6 (60.0-200.0); Anion Gap 9.5 mmol/L (10.00-18.00); BUN/Creat Ratio 18.92 Ratio (12.00-20.00); Blood Urea Nitrogen 22.7 mg/dL (9.0-27.0); Calcium 8.3 mg/dL (8.7-10.3); Carbon Dioxide 25.5 mmol/L (20.0-27.5); Potassium 4.1 mmol/L (3.5-5.5)
[2023-01-17] MEDS: SODIUM CHLORIDE 0.9% 1,000 ML IV SCH (09:26)
[2023-01-17] MEDS: THIAMINE 100 MG TAB PO SCH ×2 (09:27→17:05)
[2023-01-17] MEDS: TAMSULOSIN 0.4 MG CAP.ER.24H PO SCH (09:27)
[2023-01-17] MEDS: FOLIC ACID 1 MG TAB PO SCH (09:27)
[2023-01-17] MEDS: METOPROLOL SUCCINATE (ER) 25 MG TAB.ER.24H PO SCH (09:27)
[2023-01-17] MEDS: SPIRONOLACTONE 25 MG TAB PO SCH (09:28)
[2023-01-17] MEDS: AMIODARONE 200 MG TAB PO SCH ×2 (09:28→17:05)
[2023-01-17] MEDS: PIPERACILLIN-TAZOBACTAM 3.375 GM in SODIUM CHLORIDE 0.9% 100 ML IVPB SCH ×2 (09:28→16:33)
[2023-01-17] MEDS: FUROSEMIDE 20 MG TAB PO SCH ×2 (09:28→17:05)
[2023-01-17] MEDS: COLLAGENASE 250 UNIT/GM OINTMENT 30 GM TUBE TOPICAL SCH (09:31)
--- NOTE | 2023-01-17 09:42 | CDI ---
Documentation Clarification Form Date: 01/17/2023 9:37:20 AM From: Kristine Hewitt RN, CCDS Admit Date: 01/09/2023 10:27:00 PM Patient Name: Justo Bright Visit Number: [id number] Discharge Date: ATTENTION: The Clinical Documentation Specialists (CDI) and [facility] Coding Staff appreciate your assistance in clarifying documentation. Please respond to the clarification below the line at the bottom and electronically sign. The CDI & [facility] Coding staff will review the response and follow-up if needed. Please note: Queries are made part of the Legal Health Record. If you have any questions, please contact the author of this message via ITS. Dr. Raymond Moreno Conflicting documentation has been found in the medical record. We are not allowed to make the determination on a diagnosis. As attending physician, please provide clarification. 01/10 H/P and subsequent progress notes: Mild to moderate protein calorie malnutrition. History/Risk Factors: Atrial Fibrillation, CVA, DVT, Hyperlipidemia, Hypertension Pulmonary Embolus, Former smoker Clinical Indicators: 87-year-old male present from ECF present with chronic indwelling Carranza catheter and protein calorie malnutrition. BMI 19.0 Nutrition assessment: Nutrition intake Fair 25-50% Underweight Nutrition Diagnosis: Increased nutrient needs calories, protein metabolic needs for wound healing Treatment: General/healthful diet high calorie, high protein Commercial beverage Nutrition education, Monitor nutritional supplements intake. Please clarify which diagnosis is most appropriate: [ ] Mild protein calorie malnutrition [ x] Moderate protein calorie malnutrition [ ] Other (please specify) [ ] Unable to determine (Template Last Revised: October 2020) MTDD
[2023-01-17] MEDS: MULTIVITAMINS, THERA 1 EACH TAB PO SCH (12:53)
--- NOTE | 2023-01-17 13:37 | P.PN ---
Subjective Progress Note Date: 01/16/23 Principal diagnosis: UTI and bacteremia Patient is a 87-year-old male with multiple comorbidities recent admission to the hospital with evisceration of his stoma status post surgical repair of the same and the patient was subsequently transferred to the local intermediate for rehab patient has not been sent to the ER for evaluation of fever , patient noticed to have a positive urine also positive blood culture, the patient is status post debridement of the left heel pressure ulcer completed surgery and cultures completed on 01/14/2023 On today's evaluation that is 01/16/2023, the patient remains to be afebrile, patient is breathing comfortably on room air, the patient denies chest pain shortness of breath or cough, but denies having any nausea no vomiting no abdominal pain no diarrhea has been reported, pain to the left foot is controlled Objective - Vital Signs Vital signs: Vital Signs Temp 97.9 F 01/16/23 12:35 Pulse 59 L 01/16/23 12:35 Resp 16 01/16/23 12:35 BP 109/53 01/16/23 12:35 Pulse Ox 95 01/16/23 12:35 FiO2 Intake & Output 01/15/23 01/16/23 01/16/23 18:59 06:59 18:59 Intake Total 900 1000 Output Total 1800 800 Balance -900 1000 -800 Intake: Intake, IV Titration 900 1000 Amount Piperacillin-Tazobactam 3 100 .375 gm In Sodium Chloride 0.9% 100 ml @ 25 mls/hr IVPB Q8HR [facility] Rx# :[id number] Sodium Chloride 0.9% 1, 900 900 000 ml @ 75 mls/hr IV . [id number] [facility] Rx#:[id number] Output: Urine 1700 600 Stool 100 200 Other: Voiding Method Indwelling Catheter Indwelling Catheter Indwelling Catheter - Exam GENERAL DESCRIPTION: An elderly male lying in bed in no distress RESPIRATORY SYSTEM: Unlabored breathing , decreased breath sounds at bases HEART: S1 S2 regular rate and rhythm , ABDOMEN: Soft , no tenderness EXTREMITIES: Left foot is currently dressed no drainage on the dressing - Labs CBC & Chem 7: 01/17/23 05:24 01/17/23 05:24 Labs: Abnormal Lab Results - Last 24 Hours (Table) 01/16/23 01/16/23 Range/Units 06:14 06:14 WBC 11.60 H (4.50-10.00) X 10*3/uL RBC 3.68 L (4.40-5.60) X 10*6/uL Hgb 9.8 L (13.0-17.0) g/dL Hct 32.7 L (39.6-50.0) % MCH 26.6 L (27.0-32.0) pg MCHC 30.0 L (32.0-37.0) g/dL RDW 17.2 H (11.5-14.5) % Immature Gran # 0.15 H (0.00-0.04) X 10*3/uL Neutrophils # 9.31 H (1.80-7.70) X 10*3/uL Eosinophils # 0.46 H (0.04-0.35) X 10*3/uL ESR 95 H (0-20) mm/Hr Est GFR (CKD-EPI)AfAm 47.8 L (60.0-200.0) Est GFR (CKD-EPI)NonAf 41.3 L (60.0-200.0) Calcium 8.6 L (8.7-10.3) mg/dL Alkaline Phosphatase 163 H (41-126) U/L C-Reactive Protein 5.20 H (0.00-0.80) mg/dL Total Protein 6.0 L (6.2-8.2) g/dL Albumin 2.4 L (3.8-4.9) g/dL Globulin 3.6 H (1.6-3.3) g/dL Albumin/Globulin Ratio 0.67 L (1.60-3.17) g/dL Microbiology - Last 24 Hours (Table) 01/14/23 17:11 Gram Stain - Preliminary Heel - Left Tissue Culture - Preliminary Gram Neg Bacilli 01/14/23 13:00 Blood Culture - Preliminary Blood Assessment and Plan (1) Bacteremia Current Visit: Yes Status: Acute Code(s): R78.81 - BACTEREMIA SNOMED Code(s): 0996727 (2) UTI (urinary tract infection) Current Visit: Yes Status: Acute Code(s): N39.0 - URINARY TRACT INFECTION, SITE NOT SPECIFIED SNOMED Code(s): 99796231 Plan: 1patient presented to hospital with sepsis in this patient did have a fever elevated white count and now with evidence of gram-negative bacteremia source is likely catheter associated UTI with a blood culture now growing Enterobacter 2-patient did have a unstageable pressure ulcer to the left heel and lateral border of the left foot with minimal cellulitis , vascualr surgery has evaluated the patient and the patient is status post surgical debridment and deep cultures which are currently growing gram-negative with ID sensitivities pending 3-patient also have a stage II pressure ulcer to the sacral area with no cellulitis and unstageable pressure ulcer to the right gluteal area with some slough tissue no surrounding redness 4Patient did have a polymicrobial bacteremia with evidence of Citrobacter and Morganella in the blood question of possible GI source , however CT of abdominal pelvis with oral contrast didnot show any abscess or colitis 5-we will continue the patient on Zosyn while waiting for the left heel culture to be finalized to determine his discharge antibiotics, patient will need a PICC line as no IR is available discussed with the vascular surgeon for placement of Gan catheter Time with Patient: Less than 30
--- NOTE | 2023-01-17 13:39 | P.PN ---
Subjective Progress Note Date: 01/17/23 Principal diagnosis: UTI and bacteremia Patient is a 87-year-old male with multiple comorbidities recent admission to the hospital with evisceration of his stoma status post surgical repair of the same and the patient was subsequently [facility] local [facility] patient has not been sent to the ER for evaluation of fever , patient noticed to have a positive urine also positive blood culture, the patient is status post debridement of the left heel pressure ulcer completed surgery and cultures completed on 01/14/2023 On today's evaluation that is 01/17/2023, the patient continues to be afebrile, patient is breathing comfortably on room air, the patient denies chest pain shortness of breath or cough, the patient denies having any nausea no vomiting no abdominal pain no diarrhea has been reported, and denies any worsening pain to the left foot Objective - Vital Signs Vital signs: Vital Signs Temp 98.0 F 01/17/23 07:45 Pulse 68 01/17/23 08:06 Resp 17 01/17/23 07:45 BP 115/64 01/17/23 07:45 Pulse Ox 95 01/17/23 07:45 FiO2 Intake & Output 01/16/23 01/17/23 01/17/23 18:59 06:59 18:59 Output Total 1300 1000 150 Balance -1300 -1000 -150 Output: Urine 1100 1000 Stool 200 150 Other: Voiding Method Indwelling Catheter Indwelling Catheter Indwelling Catheter - Exam GENERAL DESCRIPTION: An elderly male lying in bed in no distress RESPIRATORY SYSTEM: Unlabored breathing , decreased breath sounds at bases HEART: S1 S2 regular rate and rhythm , ABDOMEN: Soft , no tenderness EXTREMITIES: Left foot is currently dressed no drainage on the dressing - Labs CBC & Chem 7: 01/17/23 05:24 01/17/23 05:24 Labs: Abnormal Lab Results - Last 24 Hours (Table) 01/17/23 01/17/23 Range/Units 05:24 05:24 WBC 12.26 H (4.50-10.00) X 10*3/uL RBC 3.58 L (4.40-5.60) X 10*6/uL Hgb 9.3 L (13.0-17.0) g/dL Hct 31.9 L (39.6-50.0) % MCH 26.0 L (27.0-32.0) pg MCHC 29.2 L (32.0-37.0) g/dL RDW 17.1 H (11.5-14.5) % Immature Gran # 0.21 H (0.00-0.04) X 10*3/uL Neutrophils # 9.73 H (1.80-7.70) X 10*3/uL Anion Gap 9.50 L (10.00-18.00) mmol/L Est GFR (CKD-EPI)NonAf 54.0 L (60.0-200.0) Calcium 8.3 L (8.7-10.3) mg/dL Microbiology - Last 24 Hours (Table) 01/14/23 17:11 Gram Stain - Preliminary Heel - Left Tissue Culture - Preliminary Morganella morganii Citrobacter braakii Presumptive Staph aureus 01/14/23 13:00 Blood Culture - Preliminary Blood Assessment and Plan (1) Bacteremia Current Visit: Yes Status: Acute Code(s): R78.81 - BACTEREMIA SNOMED Code(s): 5771491 (2) UTI (urinary tract infection) Current Visit: Yes Status: Acute Code(s): N39.0 - URINARY TRACT INFECTION, SITE NOT SPECIFIED SNOMED Code(s): 36248906 Plan: 1patient presented to hospital with sepsis in this patient did have a fever elevated white count and now with evidence of gram-negative bacteremia which has been finalized as Citrobacter and Morganella likely related to infected wound to the left heel area status post surgical department as a culture from the left heel is growing the same pathogen in addition to staph aureus with sensitivities pending [facility] for now waiting for the Gan catheter placement for outpatient IV antibiotic therapy Time with Patient: Less than 30
[2023-01-17] MEDS: ASPIRIN 81 MG PO SCH (16:25)
[2023-01-17] MEDS: APIXABAN 2.5 MG TABLET PO SCH (16:25)
[2023-01-18] MEDS: PIPERACILLIN-TAZOBACTAM 3.375 GM in SODIUM CHLORIDE 0.9% 100 ML IVPB SCH ×2 (00:48→08:18)
[2023-01-18] MEDS: SODIUM CHLORIDE 0.9% 1,000 ML IV SCH ×2 (05:51→18:48)
[2023-01-18] MEDS: PANTOPRAZOLE 40 MG TABLET PO SCH (06:14)
[2023-01-18] MEDS: IPRATROPIUM-ALBUTEROL 3 ML NEB INHALATION SCH ×4 (08:13→16:40)
[2023-01-18] MEDS: TAMSULOSIN 0.4 MG CAP.ER.24H PO SCH (08:19)
[2023-01-18] MEDS: AMIODARONE 200 MG TAB PO SCH ×2 (08:19→17:38)
[2023-01-18] MEDS: THIAMINE 100 MG TAB PO SCH ×2 (08:19→17:39)
[2023-01-18] MEDS: SPIRONOLACTONE 25 MG TAB PO SCH (08:19)
[2023-01-18] MEDS: METOPROLOL SUCCINATE (ER) 25 MG TAB.ER.24H PO SCH (08:19)
[2023-01-18] MEDS: FUROSEMIDE 20 MG TAB PO SCH ×2 (09:28→17:38)
[2023-01-18 10:46] LABS: Basophils # (A) 0.03 X 10*3/uL (0.00-0.10); Basophils % (A) 0.2 %; Eosinophils # (A) 0.35 X 10*3/uL (0.04-0.35); Eosinophils % (A) 2.6 %; HCT 32.6 % (39.6-50.0); HGB 9.8 g/dL (13.0-17.0); Immature Grans, Automated 1.8 %; Lymphocytes # (A) 1.25 X 10*3/uL (0.90-5.00); Lymphocytes % (A) 9.2 %; MCH 26.4 pg (27.0-32.0); MCHC 30.1 g/dL (32.0-37.0); MCV 87.9 fL (80.0-97.0); Monocytes # (A) 0.62 X 10*3/uL (0.20-1.00); Monocytes % (A) 4.5 %; NRBC Per 100 WBC 0 /100 WBCS (0.0-0.0); Neutrophils # (A) 11.17 X 10*3/uL (1.80-7.70); Neutrophils % (A) 81.7 %; Platelet Count 428 X 10*3/uL (140-440); RBC 3.71 X 10*6/uL (4.40-5.60); RDW 17.2 % (11.5-14.5); WBC 13.66 X 10*3/uL (4.50-10.00)
[2023-01-18 11:01] LABS: African American GFR (CKD) 62.6 (60.0-200.0); Anion Gap 7.5 mmol/L (10.00-18.00); BUN/Creat Ratio 17.75 Ratio (12.00-20.00); Blood Urea Nitrogen 21.3 mg/dL (9.0-27.0); Calcium 8.6 mg/dL (8.7-10.3); Carbon Dioxide 27.5 mmol/L (20.0-27.5); Potassium 4.2 mmol/L (3.5-5.5)
[2023-01-18] MEDS ORDERED: VANCOMYCIN IV PER PHARMACY 1 EACH MISC MISCELLANE PRN (11:32)
[2023-01-18] MEDS ORDERED: MIDAZOLAM 2 MG/2 ML VIAL IV ONE (11:50)
[2023-01-18] MEDS ORDERED: fentaNYL (PF) 50 MCG/ML 2 ML AMP IV ONE ×2 (11:50)
[2023-01-18] MEDS ORDERED: LIDOCAINE 1% INJ 10MG/ML (20 ML MDV) SQ ONE ×2 (11:51)
[2023-01-18] MEDS ORDERED: IV FLUID CONTINUATION 1,000 ML IV ONE (11:52)
[2023-01-18] MEDS ORDERED: VANCOMYCIN 1,250 MG in SODIUM CHLORIDE 0.9% 250 ML IVPB SCH (12:00)
[2023-01-18] MEDS ORDERED: CEFEPIME 2 GM in SODIUM CHLORIDE 0.9% 100 ML IVPB SCH (12:00)
--- NOTE | 2023-01-18 12:22 | P.PCN ---
Description of Procedure: Preoperative diagnoses is chronic wound left foot Same Procedure ultrasound-guided 5-[place] replaced a right jugular approach for long- term antibiotic patient was brought to the Cytogenetic Technician [place] of the neck and chest was prepped and draped applied sterile manner 1% lidocaine plain infiltrated neck and chest area. Ultrasound-guided micropuncture introducer right jugular vein micropuncture guidewire passed. Then we created a tunnel through the terminal be brought dialysis catheter the neck incision site. Sheath was advanced top the guidewire. Through the sheath we introduced catheter tip of catheter in superior vena cava at the junction flush with heparin saline and Hep-Lock secured with 3-0 nylon dressing applied patient tolerated the procedure well patient will have a chest x-ray
--- NOTE | 2023-01-18 12:38 | IR ---
EXAMINATION TYPE: IR cvc insert central tunneled DATE OF EXAM: 01/18/2023 CLINICAL HISTORY: Long-term antibiotic use TECHNIQUE: Fluoroscopy. COMPARISON: None. FINDINGS: Fluoroscopic guidance was provided during tunneled central catheter insertion procedure pe rformed by Dr. Marks. A total of 34 seconds of fluoroscopic time was utilized during the procedure and 25 spot images was acquired. Images acquired show right internal jugular central venous catheter . IMPRESSION: As Above. Total DAP = 176.73 microGy x m2
[2023-01-18] MEDS: MULTIVITAMINS, THERA 1 EACH TAB PO SCH (12:48)
[2023-01-18] MEDS: FOLIC ACID 1 MG TAB PO SCH (12:48)
[2023-01-18] MEDS: COLLAGENASE 250 UNIT/GM OINTMENT 30 GM TUBE TOPICAL SCH (12:49)
--- NOTE | 2023-01-18 13:18 | XR ---
EXAMINATION TYPE: XR chest 1V confirm line [facility] DATE OF EXAM: 01/18/2023 CLINICAL HISTORY: Gan catheter insertion. TECHNIQUE: Single AP portable upright view of the chest is obtained. COMPARISON: Chest x-ray from January 09, 2023 FINDINGS: There is new right internal jugular central venous catheter terminating in SVC. No pneumot horax is evident. Chronic parenchymal changes with small left pleural effusion is redemonstrated. Cardiac silhouette si ze stable and mildly enlarged. Osseous structures are demineralized. Advanced degenerative change rig ht glenohumeral joint redemonstrated. Old lateral right mid rib fractures redemonstrated. IMPRESSION: As above.
--- NOTE | 2023-01-18 13:19 | P.PN ---
Subjective Progress Note Date: 01/18/23 Principal diagnosis: UTI and bacteremia Patient is a 87-year-old male with multiple comorbidities recent admission to the hospital with evisceration of his stoma status post surgical repair of the same and the patient was subsequently transferred to the local shelter for rehab patient has not been sent to the ER for evaluation of fever , patient noticed to have a positive urine also positive blood culture, the patient is status post debridement of the left heel pressure ulcer completed surgery and cultures completed on 01/14/2023 On today's evaluation that is 01/18/2023, the patient remains to be afebrile, patient is breathing comfortably on room air, the patient denies chest pain shortness of breath or cough, the patient denies having any nausea no vomiting no abdominal pain no diarrhea has been reported, patient complaining mostly of pain to the dorsum aspect of the left foot rather than the heel Objective - Vital Signs Vital signs: Vital Signs Temp 97.6 F 01/18/23 07:15 Pulse 64 01/18/23 11:00 Resp 18 01/18/23 08:00 BP 125/66 01/18/23 07:15 Pulse Ox 93 L 01/18/23 07:15 FiO2 Intake & Output 01/17/23 01/18/23 01/18/23 18:59 06:59 18:59 Intake Total 200 Output Total 1100 2800 700 Balance -900 -2800 -700 Intake: Intake, IV Titration 200 Amount Piperacillin-Tazobactam 3 200 .375 gm In Sodium Chloride 0.9% 100 ml @ 25 mls/hr IVPB Q8HR [facility] Rx# :[id number] Output: Urine 950 2650 550 Stool 150 150 150 Other: Voiding Method Indwelling Catheter Indwelling Catheter Indwelling Catheter # Bowel Movements 1 - Exam GENERAL DESCRIPTION: An elderly male lying in bed in no distress RESPIRATORY SYSTEM: Unlabored breathing , decreased breath sounds at bases HEART: S1 S2 regular rate and rhythm , ABDOMEN: Soft , no tenderness EXTREMITIES: Left healed with a stage III pressure ulcer with some slough tissue surrounding redness and necrotic tissue has improved - Labs CBC & Chem 7: 01/18/23 06:51 01/18/23 06:51 Labs: Abnormal Lab Results - Last 24 Hours (Table) 01/18/23 01/18/23 Range/Units 06:51 06:51 WBC 13.66 H (4.50-10.00) X 10*3/uL RBC 3.71 L (4.40-5.60) X 10*6/uL Hgb 9.8 L (13.0-17.0) g/dL Hct 32.6 L (39.6-50.0) % MCH 26.4 L (27.0-32.0) pg MCHC 30.1 L (32.0-37.0) g/dL RDW 17.2 H (11.5-14.5) % Immature Gran # 0.24 H (0.00-0.04) X 10*3/uL Neutrophils # 11.17 H (1.80-7.70) X 10*3/uL Anion Gap 7.50 L (10.00-18.00) mmol/L Est GFR (CKD-EPI)NonAf 54.0 L (60.0-200.0) Calcium 8.6 L (8.7-10.3) mg/dL Microbiology - Last 24 Hours (Table) 01/14/23 13:00 Blood Culture - Preliminary Blood 01/14/23 17:11 Gram Stain - Final Heel - Left Tissue Culture - Final Morganella morganii Citrobacter braakii Methicillin resist S. aureus Diphtheroid species Assessment and Plan (1) Bacteremia Current Visit: Yes Status: Acute Code(s): R78.81 - BACTEREMIA SNOMED Code(s): 2070451 (2) UTI (urinary tract infection) Current Visit: Yes Status: Acute Code(s): N39.0 - URINARY TRACT INFECTION, SITE NOT SPECIFIED SNOMED Code(s): 85845938 Plan: 1patient presented to hospital with sepsis in this patient did have a fever elevated white count and now with evidence of gram-negative bacteremia which has been finalized as Citrobacter and Morganella likely related to infected wound to the left heel area status post surgical department as a culture from the left heel is growing MRSA Morganella Citrobacter and anaerobic gram-negative bacilli, antibiotic has been adjusted to vancomycin and cefepime and oral Flagyl plan is for 4-6 weeks of therapy local wound care with the Santyl followed by moist dressing and keep the area off the pressure and close outpatient follow-up Time with Patient: Less than 30
--- NOTE | 2023-01-18 14:35 | P.PN ---
Subjective Progress Note Date: 01/16/23 Patient is a 87-year-old male with a known history of atrial fibrillation on anticoagulation with Eliquis, history of DVT/PE, history of CVA/TIA with right- sided weakness/speech difficulty, hypertension, hyperlipidemia, history of fecal impaction/bowel perforation status post colostomy, parastomal hernia, chronic indwelling Carranza catheter and protein calorie malnutrition and prior history of smoking was sent from [facility] due to complaints of fever. Patient does have left foot wound and is getting wound care at skilled nursing which is also noted to have increased redness. Patient was febrile with Tmax 100.3 on admission. He was also hypotensive with blood pressure 82/49 on admission. Chest x-ray showed chronic changes and cardiomegaly with small to moderate size left pleural effusion redemonstrated. X-ray of the foot showed osseous structures are demineralized which is noted to lower radiographic sensitivity. Moderate diffuse soft tissue swelling is seen. Flexion of the toes is noted which limits evaluation at this level. No acute displaced fracture. Severe narrowing at the first interphalangeal joint and moderate to severe narrowing at the first metatarsophalangeal joint. No obvious bony structures to suggest acute osteomyelitis. Laboratory showed WBC 11.8 hemoglobin 9.6 and platelets 363 RDW 16.8 Sodium 134, potassium 4.0 chloride 99 bicarb 25 BUN 20 and creatinine 1.24 blood sugar 106 and calcium 8.1 and albumin 2.6. Urinalysis showed moderate blood large leukoesterase with elevated RBCs and WBCs. Influenza A, B, RSV and COVID-19 PCR not detected. Patient was given a dose of ceftriaxone and clindamycin while in the ER. 01/12. Patient seen and examined. White count 10.4, hemoglobin 8.8,. States he feels better. Denies any acute issues overnight 01/13. Patient seen and examined. Laying comfortably in the bed. WBC this morning is 10.69, hemoglobin 9, platelet count 370, sodium 137, potassium 4.4, BUN and 22.5, creatinine 1.2 01/14. Patient seen and examined. Initial lab this morning showed white count 12.4, hemoglobin 9.5, sodium 135, potassium 4.4, BUN 21.8, creatinine 1.3 Patient temperature 99, heart rate 66, respirations 16, blood pressure 98/47 01/15. Patient seen and examined. No acute issues overnight. ID waiting on final culture results to be finalized before finalizing antibiotic plan 01/16/2023 Patient is currently resting in bed. Awake alert oriented 3. No complaints of chest pain or short of breath. No fever no chills. Left foot pain is controlled. Patient is status post wound debridement and deep cultures were sent. Showed gram-negative bacilli. Awaiting final culture report. ID is on board. Patient is being continued on IV antibiotics. Laboratory data Sugar was 11.6 hemoglobin 9.8 and platelets 427 sodium 137, potassium 4.1:23 bicarb is 25.5 and creatinine 1.2. REVIEW OF SYSTEMS: CONSTITUTIONAL: No fever, no malaise,. CARDIOVASCULAR: No chest pain, no palpitations, no syncope. PULMONARY: No shortness of breath, no cough, GASTROINTESTINAL: No diarrhea, no nausea, no vomiting, no abdominal pain. NEUROLOGICAL: No headaches, no weakness, PHYSICAL EXAMINATION: GENERAL: The patient is alert and oriented x3, not in any acute distress. Well developed, well nourished. HEENT: Pupils are round and equally reacting to light. EOMI. No scleral icterus. No conjunctival pallor. Normocephalic, atraumatic. No pharyngeal erythema. No thyromegaly. CARDIOVASCULAR: S1 and S2 present. No murmurs, rubs, or gallops. PULMONARY: Chest is clear to auscultation, no wheezing or crackles. ABDOMEN: Soft, nontender, nondistended, normoactive bowel sounds. No palpable organomegaly. Ostomy seen MUSCULOSKELETAL: Left foot bandage in place NEUROLOGICAL: Gross neurological examination did not reveal any focal deficits. SKIN: No rashes. Assessment and plan Acute urinary tract infection related to chronic indwelling Carranza catheter Sepsis secondary to above Left heel ulcer with surrounding cellulitis. Status post debridement on 01/15/2023. History of bowel perforation status post colostomy and parastomal hernia., Recent abdominal surgery. Paroxysmal atrial fibrillation on anticoagulation with Eliquis History of DVT/PE History of SVT Hypertension Hyperlipidemia BPH History of CVA with right-sided weakness and speech difficulty Hypoalbuminemia, Mild to moderate protein calorie malnutrition. Normocytic anemia and iron deficiency anemia Prior history of smoking unstageable pressure ulcer to the left heel and lateral border of the left foot with minimal cellulitis Monitor vital signs Monitor CBC Monitor CMP Continue IV Zosyn CT abdominal pelvis showed no evidence of any fluid collection or abscess Wound care consulted Continue Home meds ID following the patient Objective - Vital Signs Vital signs: Vital Signs Temp 98.7 F 01/16/23 18:46 Pulse 68 01/16/23 20:33 Resp 16 01/16/23 19:19 BP 103/46 01/16/23 18:46 Pulse Ox 96 01/16/23 18:46 FiO2 Intake & Output 01/16/23 01/16/23 01/17/23 06:59 18:59 06:59 Intake Total 1000 Output Total 1300 Balance 1000 -1300 Intake: Intake, IV Titration 1000 Amount Piperacillin-Tazobactam 3 100 .375 gm In Sodium Chloride 0.9% 100 ml @ 25 mls/hr IVPB Q8HR [facility] Rx# :[id number] Sodium Chloride 0.9% 1, 900 000 ml @ 75 mls/hr IV . [id number] [facility] Rx#:[id number] Output: Urine 1100 Stool 200 Other: Voiding Method Indwelling Catheter Indwelling Catheter Indwelling Catheter - Labs CBC & Chem 7: 01/18/23 06:51 01/18/23 06:51 Labs: Abnormal Lab Results - Last 24 Hours (Table) 01/16/23 01/16/23 Range/Units 06:14 06:14 WBC 11.60 H (4.50-10.00) X 10*3/uL RBC 3.68 L (4.40-5.60) X 10*6/uL Hgb 9.8 L (13.0-17.0) g/dL Hct 32.7 L (39.6-50.0) % MCH 26.6 L (27.0-32.0) pg MCHC 30.0 L (32.0-37.0) g/dL RDW 17.2 H (11.5-14.5) % Immature Gran # 0.15 H (0.00-0.04) X 10*3/uL Neutrophils # 9.31 H (1.80-7.70) X 10*3/uL Eosinophils # 0.46 H (0.04-0.35) X 10*3/uL ESR 95 H (0-20) mm/Hr Est GFR (CKD-EPI)AfAm 47.8 L (60.0-200.0) Est GFR (CKD-EPI)NonAf 41.3 L (60.0-200.0) Calcium 8.6 L (8.7-10.3) mg/dL Alkaline Phosphatase 163 H (41-126) U/L C-Reactive Protein 5.20 H (0.00-0.80) mg/dL Total Protein 6.0 L (6.2-8.2) g/dL Albumin 2.4 L (3.8-4.9) g/dL Globulin 3.6 H (1.6-3.3) g/dL Albumin/Globulin Ratio 0.67 L (1.60-3.17) g/dL Microbiology - Last 24 Hours (Table) 01/14/23 17:11 Gram Stain - Preliminary Heel - Left Tissue Culture - Preliminary Gram Neg Bacilli 01/14/23 13:00 Blood Culture - Preliminary Blood
--- NOTE | 2023-01-18 14:36 | P.PN ---
Subjective Progress Note Date: 01/17/23 Patient is a 87-year-old male with a known history of atrial fibrillation on anticoagulation with Eliquis, history of DVT/PE, history of CVA/TIA with right- sided weakness/speech difficulty, hypertension, hyperlipidemia, history of fecal impaction/bowel perforation status post colostomy, parastomal hernia, chronic indwelling Carranza catheter and protein calorie malnutrition and prior history of smoking was sent from [facility] due to complaints of fever. Patient does have left foot wound and is getting wound care at halfway which is also noted to have increased redness. Patient was febrile with Tmax 100.3 on admission. He was also hypotensive with blood pressure 82/49 on admission. Chest x-ray showed chronic changes and cardiomegaly with small to moderate size left pleural effusion redemonstrated. X-ray of the foot showed osseous structures are demineralized which is noted to lower radiographic sensitivity. Moderate diffuse soft tissue swelling is seen. Flexion of the toes is noted which limits evaluation at this level. No acute displaced fracture. Severe narrowing at the first interphalangeal joint and moderate to severe narrowing at the first metatarsophalangeal joint. No obvious bony structures to suggest acute osteomyelitis. Laboratory showed WBC 11.8 hemoglobin 9.6 and platelets 363 RDW 16.8 Sodium 134, potassium 4.0 chloride 99 bicarb 25 BUN 20 and creatinine 1.24 blood sugar 106 and calcium 8.1 and albumin 2.6. Urinalysis showed moderate blood large leukoesterase with elevated RBCs and WBCs. Influenza A, B, RSV and COVID-19 PCR not detected. Patient was given a dose of ceftriaxone and clindamycin while in the ER. 01/12. Patient seen and examined. White count 10.4, hemoglobin 8.8,. States he feels better. Denies any acute issues overnight 01/13. Patient seen and examined. Laying comfortably in the bed. WBC this morning is 10.69, hemoglobin 9, platelet count 370, sodium 137, potassium 4.4, BUN and 22.5, creatinine 1.2 01/14. Patient seen and examined. Initial lab this morning showed white count 12.4, hemoglobin 9.5, sodium 135, potassium 4.4, BUN 21.8, creatinine 1.3 Patient temperature 99, heart rate 66, respirations 16, blood pressure 98/47 01/15. Patient seen and examined. No acute issues overnight. ID waiting on final culture results to be finalized before finalizing antibiotic plan 01/16/2023 Patient is currently resting in bed. Awake alert oriented 3. No complaints of chest pain or short of breath. No fever no chills. Left foot pain is controlled. Patient is status post wound debridement and deep cultures were sent. Showed gram-negative bacilli. Awaiting final culture report. ID is on board. Patient is being continued on IV antibiotics. Laboratory data Sugar was 11.6 hemoglobin 9.8 and platelets 427 sodium 137, potassium 4.1:23 bicarb is 25.5 and creatinine 1.2. 01/17/2023 Patient is resting in the bed. Awake alert oriented 3. Left heel wound is wrapped. Pain is fairly controlled. No complains of fever or chills. No nausea vomiting abdominal pain or diarrhea. The wound cultures are pending to be finalized. Continue with IV antibiotics as per ID recommendations. Lab oratory data showed WBC 12.8 hemoglobin 9.3 and platelets 411 Sodium 138 potassium 4.1, 1-3 bicarb is 12.5 BUN 22.7 and creatinine 1.2. Calcium is 8.3. REVIEW OF SYSTEMS: CONSTITUTIONAL: No fever, no malaise,. CARDIOVASCULAR: No chest pain, no palpitations, no syncope. PULMONARY: No shortness of breath, no cough, GASTROINTESTINAL: No diarrhea, no nausea, no vomiting, no abdominal pain. NEUROLOGICAL: No headaches, no weakness, PHYSICAL EXAMINATION: GENERAL: The patient is alert and oriented x3, not in any acute distress. Well developed, well nourished. HEENT: Pupils are round and equally reacting to light. EOMI. No scleral icterus. No conjunctival pallor. Normocephalic, atraumatic. No pharyngeal erythema. No thyromegaly. CARDIOVASCULAR: S1 and S2 present. No murmurs, rubs, or gallops. PULMONARY: Chest is clear to auscultation, no wheezing or crackles. ABDOMEN: Soft, nontender, nondistended, normoactive bowel sounds. No palpable organomegaly. Ostomy seen MUSCULOSKELETAL: Left foot bandage in place NEUROLOGICAL: Gross neurological examination did not reveal any focal deficits. SKIN: No rashes. Assessment and plan Acute urinary tract infection related to chronic indwelling Carranza catheter Sepsis secondary to above Left heel ulcer with surrounding cellulitis. Status post debridement on 01/15/2023. History of bowel perforation status post colostomy and parastomal hernia., Recent abdominal surgery. Paroxysmal atrial fibrillation on anticoagulation with Eliquis History of DVT/PE History of SVT Hypertension Hyperlipidemia BPH History of CVA with right-sided weakness and speech difficulty Hypoalbuminemia, Mild to moderate protein calorie malnutrition. Normocytic anemia and iron deficiency anemia Prior history of smoking unstageable pressure ulcer to the left heel and lateral border of the left foot with minimal cellulitis Monitor vital signs Monitor CBC Monitor CMP Continue IV antibiotic as widely recommendations. Follow final culture report. CT abdominal pelvis showed no evidence of any fluid collection or abscess Wound care is following. Continue Home meds ID and vascular surgery is on board. Objective - Vital Signs Vital signs: Vital Signs Temp 97.4 F L 01/17/23 15:35 Pulse 63 01/17/23 15:35 Resp 18 01/17/23 15:35 BP 98/57 01/17/23 15:35 Pulse Ox 97 01/17/23 15:35 FiO2 Intake & Output 01/16/23 01/17/23 01/17/23 18:59 06:59 18:59 Output Total 1300 1000 1850 Balance -1300 -1000 -1850 Output: Urine 1100 1000 1700 Stool 200 150 Other: Voiding Method Indwelling Catheter Indwelling Catheter Indwelling Catheter - Labs CBC & Chem 7: 01/18/23 06:51 01/18/23 06:51 Labs: Abnormal Lab Results - Last 24 Hours (Table) 01/17/23 01/17/23 Range/Units 05:24 05:24 WBC 12.26 H (4.50-10.00) X 10*3/uL RBC 3.58 L (4.40-5.60) X 10*6/uL Hgb 9.3 L (13.0-17.0) g/dL Hct 31.9 L (39.6-50.0) % MCH 26.0 L (27.0-32.0) pg MCHC 29.2 L (32.0-37.0) g/dL RDW 17.1 H (11.5-14.5) % Immature Gran # 0.21 H (0.00-0.04) X 10*3/uL Neutrophils # 9.73 H (1.80-7.70) X 10*3/uL Anion Gap 9.50 L (10.00-18.00) mmol/L Est GFR (CKD-EPI)NonAf 54.0 L (60.0-200.0) Calcium 8.3 L (8.7-10.3) mg/dL Microbiology - Last 24 Hours (Table) 01/14/23 17:11 Gram Stain - Preliminary Heel - Left Tissue Culture - Preliminary Morganella morganii Citrobacter braakii Presumptive Staph aureus 01/14/23 13:00 Blood Culture - Preliminary Blood
--- NOTE | 2023-01-18 14:39 | P.DS ---
Providers Date of admission: 01/09/23 22:27 Expected date of discharge: 01/18/23 Attending physician: Felix Houser Consults: 01/09/23 22:23 Consult Physician Urgent Consulting Provider: Toney Olivares Consult Reason/Comments: uti, foot wound Do you want consulting provider notified?: Yes, Notify in am 01/14/23 12:46 Consult Physician Routine Consulting Provider: Sid Love Consult Reason/Comments: left heel wound , debridemnt and deep cultures Do you want consulting provider notified?: Yes Primary care physician: Josh Mclalister [facility] Course: Discharge diagnosis Acute urinary tract infection related to chronic indwelling Carranza catheter. Urine culture showed E. coli. Sepsis secondary to above Left heel ulcer with surrounding cellulitis. Status post debridement on 01/15/2023. History of bowel perforation status post colostomy and parastomal hernia., Recent abdominal surgery. Paroxysmal atrial fibrillation on anticoagulation with Eliquis History of DVT/PE History of SVT Hypertension Hyperlipidemia BPH History of CVA with right-sided weakness and speech difficulty Hypoalbuminemia, Mild to moderate protein calorie malnutrition. Normocytic anemia and iron deficiency anemia Prior history of smoking Hospital course Patient is a 87-year-old male with a known history of atrial fibrillation on anticoagulation with Eliquis, history of DVT/PE, history of CVA/TIA with right- sided weakness/speech difficulty, hypertension, hyperlipidemia, history of fecal impaction/bowel perforation status post colostomy, parastomal hernia, chronic indwelling Carranza catheter and protein calorie malnutrition and prior history of smoking was sent from [facility] due to complaints of fever. Patient does have left foot wound and is getting wound care at intermediate which is also noted to have increased redness. Patient was febrile with Tmax 100.3 on admission. He was also hypotensive with blood pressure 82/49 on admission. Chest x-ray showed chronic changes and cardiomegaly with small to moderate size left pleural effusion redemonstrated. X-ray of the foot showed osseous structures are demineralized which is noted to lower radiographic sensitivity. Moderate diffuse soft tissue swelling is seen. Flexion of the toes is noted which limits evaluation at this level. No acute displaced fracture. Severe narrowing at the first interphalangeal joint and moderate to severe narrowing at the first metatarsophalangeal joint. No obvious bony structures to suggest acute osteomyelitis. Laboratory showed WBC 11.8 hemoglobin 9.6 and platelets 363 RDW 16.8 Sodium 134, potassium 4.0 chloride 99 bicarb 25 BUN 20 and creatinine 1.24 blood sugar 106 and calcium 8.1 and albumin 2.6. Urinalysis showed moderate blood large leukoesterase with elevated RBCs and WBCs. Influenza A, B, RSV and COVID-19 PCR not detected. Patient was given a dose of ceftriaxone and clindamycin while in the ER. 01/12. Patient seen and examined. White count 10.4, hemoglobin 8.8,. States he feels better. Denies any acute issues overnight 01/13. Patient seen and examined. Laying comfortably in the bed. WBC this morning is 10.69, hemoglobin 9, platelet count 370, sodium 137, potassium 4.4, BUN and 22.5, creatinine 1.2 01/14. Patient seen and examined. Initial lab this morning showed white count 12.4, hemoglobin 9.5, sodium 135, potassium 4.4, BUN 21.8, creatinine 1.3 Patient temperature 99, heart rate 66, respirations 16, blood pressure 98/47 01/15. Patient seen and examined. No acute issues overnight. ID waiting on final culture results to be finalized before finalizing antibiotic plan 01/16/2023 Patient is currently resting in bed. Awake alert oriented 3. No complaints of chest pain or short of breath. No fever no chills. Left foot pain is controlled. Patient is status post wound debridement and deep cultures were sent. Showed gram-negative bacilli. Awaiting final culture report. ID is on board. Patient is being continued on IV antibiotics. Laboratory data Sugar was 11.6 hemoglobin 9.8 and platelets 427 sodium 137, potassium 4.1:23 bicarb is 25.5 and creatinine 1.2. 01/17/2023 Patient is resting in the bed. Awake alert oriented 3. Left heel wound is wrapped. Pain is fairly controlled. No complains of fever or chills. No nausea vomiting abdominal pain or diarrhea. The wound cultures are pending to be finalized. Continue with IV antibiotics as per ID recommendations. Laboratory data showed WBC 12.8 hemoglobin 9.3 and platelets 411 Sodium 138 potassium 4.1, 1-3 bicarb is 12.5 BUN 22.7 and creatinine 1.2. Calcium is 8.3. 01/18/2023 Patient is currently resting in the bed. Awake alert and oriented 3. No complains of chest pain or shortness of breath. No cough or sputum production. Patient be continued on IV antibiotics in the form of vancomycin, cefepime and Atrovent as well as per ID recommendations. Wound cultures showed Morganella, Citrobacter, MRSA and diphtheria species. Blood cultures negative. Patient will be continued on wound care. Status post right internal jugular central venous catheter for IV antibiotics.. Patient will be transferred to [facility] for IV antibiotics and PTOT. PHYSICAL EXAMINATION: GENERAL: The patient is alert and oriented x3, not in any acute distress. Well developed, well nourished. HEENT: Pupils are round and equally reacting to light. EOMI. No scleral icterus. No conjunctival pallor. Normocephalic, atraumatic. No pharyngeal erythema. No thyromegaly. CARDIOVASCULAR: S1 and S2 present. No murmurs, rubs, or gallops. PULMONARY: Chest is clear to auscultation, no wheezing or crackles. ABDOMEN: Soft, nontender, nondistended, normoactive bowel sounds. No palpable organomegaly. Ostomy seen. Sacral wound seen. Not infected. MUSCULOSKELETAL: Left foot bandage in place. NEUROLOGICAL: Gross neurological examination did not reveal any focal deficits. SKIN: No rashes. Vital Signs 01/18/23 01/18/23 01/18/23 07:15 08:00 10:51 Temperature 97.6 F Pulse Rate 64 Pulse Rate [ 70 70 Pulse Oximetery ] Pulse Rate [ 81 Supine Pulse Oximetery] Respiratory 18 18 Rate Blood Pressure 125/66 [Right Arm] O2 Sat by Pulse 93 L Oximetry 01/18/23 11:00 Temperature Pulse Rate 64 Pulse Rate [ Pulse Oximetery ] Pulse Rate [ Supine Pulse Oximetery] Respiratory Rate Blood Pressure [Right Arm] O2 Sat by Pulse Oximetry Total time taken greater than 35 minutes including 18 minutes for counseling and coordination of care. Patient Condition at Discharge: Fair Plan - Discharge Summary Discharge Rx Participant: No New Discharge Prescriptions: New metroNIDAZOLE [Flagyl] 500 mg PO TID #90 tab Cefepime [Maxipime] 2 gm IVPB Q12H #84 each Vancomycin/Water For Inj (Peg) [Vancomycin 750 mg/150 ml Bag] 1,250 mg IV DAILY #42 each Continue Tamsulosin HCl [Flomax] 0.4 mg PO DAILY@0800 Pantoprazole Sodium [Protonix] 40 mg PO DAILY@0600 Albuterol Inhaler [Ventolin Hfa Inhaler] 2 puff INHALATION RT-Q6H bisacodyL [Dulcolax] 10 mg RECTAL DAILY PRN PRN Reason: Constipation Ensure Enlive 237 ml PO TID@0800,1200,1700 Apixaban [Eliquis] 2.5 mg PO BID@0800,1700 Eucerin Advanced Repair Cream 1 applic TOPICAL DAILY Aspirin 81 mg PO DAILY@1200 HYDROcodone/APAP 5-325MG [[place] 5-325] 1 tab PO Q6HR PRN 3 Days #12 tab PRN Reason: Pain Folic Acid 1 mg PO DAILY@1200 tab Spironolactone [Aldactone] 25 mg PO DAILY@0800 polyethylene glycoL 3350 [Miralax] 17 gm PO DAILY@0800 Multivitamins, Thera [Multivitamin (formulary)] 1 tab PO DAILY@1200 Collagenase [Santyl Ointment] 1 applic TOPICAL DAILY Metoprolol Succinate (ER) [Toprol XL] 12.5 mg PO DAILY@0800 Lactulose 30 gm PO DAILY@0800 Dapagliflozin Propanediol [Farxiga] 10 mg PO DAILY@0800 Na Phos,M-B/Na Phos,Di-Ba [Fleet Adult] 133 ml RECTAL DAILY PRN PRN Reason: Constipation Magnesium Hydroxide [Milk of Magnesia Concentrate] 7,200 mg PO Q48H PRN PRN Reason: Constipation Eucerin Advanced Repair Cream 1 applic TOPICAL DAILY PRN PRN Reason: Dry Skin Amiodarone [Cordarone] 200 mg PO BID@0800,1700 Thiamine [Vitamin B-1] 100 mg PO BID@0800,1700 Furosemide [Lasix] 20 mg PO BID@0800,1700 Ferrous Sulfate [Iron (65 MG Elemental)] 325 mg PO DAILY@1700 Discharge Medication List Tamsulosin HCl [Flomax] 0.4 mg PO DAILY@0800 02/14/18 [History] Pantoprazole Sodium [Protonix] 40 mg PO DAILY@0600 10/20/22 [History] Albuterol Inhaler [Ventolin Hfa Inhaler] 2 puff INHALATION RT-Q6H 10/28/22 [History] Apixaban [Eliquis] 2.5 mg PO BID@0800,1700 10/28/22 [History] Aspirin 81 mg PO DAILY@1200 10/28/22 [History] Ensure Enlive 237 ml PO TID@0800,1200,1700 10/28/22 [History] Eucerin Advanced Repair Cream 1 applic TOPICAL DAILY 10/28/22 [History] Eucerin Advanced Repair Cream 1 applic TOPICAL DAILY PRN 10/28/22 [History] Magnesium Hydroxide [Milk of Magnesia Concentrate] 7,200 mg PO Q48H PRN 10/28/22 [History] Na Phos,M-B/Na Phos,Di-Ba [Fleet Adult] 133 ml RECTAL DAILY PRN 10/28/22 [History] bisacodyL [Dulcolax] 10 mg RECTAL DAILY PRN 10/28/22 [History] Amiodarone [Cordarone] 200 mg PO BID@0800,1700 12/14/22 [History] Folic Acid 1 mg PO DAILY@1200 tab 12/25/22 [Rx] HYDROcodone/APAP 5-325MG [[place] 5-325] 1 tab PO Q6HR PRN 3 Days #12 tab 12/25/22 [Rx] Collagenase [Santyl Ointment] 1 applic TOPICAL DAILY 01/09/23 [History] Dapagliflozin Propanediol [Farxiga] 10 mg PO DAILY@0800 01/09/23 [History] Ferrous Sulfate [Iron (65 MG Elemental)] 325 mg PO DAILY@1700 01/09/23 [History] Furosemide [Lasix] 20 mg PO BID@0800,1700 01/09/23 [History] Lactulose 30 gm PO DAILY@0800 01/09/23 [History] Metoprolol Succinate (ER) [Toprol XL] 12.5 mg PO DAILY@0800 01/09/23 [History] Multivitamins, Thera [Multivitamin (formulary)] 1 tab PO DAILY@1200 01/09/23 [History] Spironolactone [Aldactone] 25 mg PO DAILY@0800 01/09/23 [History] Thiamine [Vitamin B-1] 100 mg PO BID@0800,1700 01/09/23 [History] polyethylene glycoL 3350 [Miralax] 17 gm PO DAILY@0800 01/09/23 [History] Cefepime [Maxipime] 2 gm IVPB Q12H #84 each 01/18/23 [Rx] Vancomycin/Water For Inj (Peg) [Vancomycin 750 mg/150 ml Bag] 1,250 mg IV DAILY #42 each 01/18/23 [Rx] metroNIDAZOLE [Flagyl] 500 mg PO TID #90 tab 01/18/23 [Rx] Follow up Appointment(s)/Referral(s): Josh Mcallister MD [Primary Care Provider] - 1-2 days Toney Olivares MD [STAFF PHYSICIAN] - 1 Week Ambulatory/Diagnostic Orders: Basic Metabolic Panel [LAB.AMB] Location: None Selected C Reactive Protein [LAB.AMB] Location: None Selected Complete Blood Count w/diff [LAB.AMB] Location: None Selected Erythrocyte Sedimentation Rate [LAB.AMB] Location: None Selected Discharge Disposition: TRANSFER TO SNF/ECF
[2023-01-18 15:23] VITALS: RESP 17; TEMP 98
[2023-01-18 15:27] VITALS: BP 105/60; PULSE 62
[2023-01-18] MEDS: APIXABAN 2.5 MG TABLET PO SCH (17:39)
== END 2023-01-18 18:43 | DRG 673 ==
LOC: EC 18:11 → SUPCPDRO 18:11 → 5NMEDONC 22:27
PROVIDERS: ADMIT Hospitalist; ATTEND Hospitalist
PROC: 0JBR0ZZ Excision of Left Foot Subcutaneous Tissue and Fascia, Open Approach (ICD-10-PCS; principal; 2023-01-14)
PROC: 02HV33Z Insertion of Infusion Device into Superior Vena Cava, Percutaneous Approach (ICD-10-PCS; 2023-01-18 12:00)
DX: T83.511A Infection and inflammatory reaction due to indwelling urethral catheter, initial encounter (principal); A41.51 Sepsis due to Escherichia coli [E. coli]; E44.0 Moderate protein-calorie malnutrition; I69.351 Hemiplegia and hemiparesis following cerebral infarction affecting right dominant side; J90 Pleural effusion, not elsewhere classified; L03.116 Cellulitis of left lower limb; Z68.1 Body mass index [BMI] 19.9 or less, adult; L89.310 Pressure ulcer of right buttock, unstageable; L89.152 Pressure ulcer of sacral region, stage 2; E88.09 Other disorders of plasma-protein metabolism, not elsewhere classified; E11.621 Type 2 diabetes mellitus with foot ulcer; L89.620 Pressure ulcer of left heel, unstageable; L97.529 Non-pressure chronic ulcer of other part of left foot with unspecified severity; L97.522 Non-pressure chronic ulcer of other part of left foot with fat layer exposed; Z43.3 Encounter for attention to colostomy; I95.9 Hypotension, unspecified; D50.9 Iron deficiency anemia, unspecified; I48.0 Paroxysmal atrial fibrillation; N39.0 Urinary tract infection, site not specified; Z20.822 Contact with and (suspected) exposure to COVID-19; I11.9 Hypertensive heart disease without heart failure; E78.5 Hyperlipidemia, unspecified; N40.0 Benign prostatic hyperplasia without lower urinary tract symptoms; I69.328 Other speech and language deficits following cerebral infarction; Z79.01 Long term (current) use of anticoagulants; Z79.82 Long term (current) use of aspirin; Z79.84 Long term (current) use of oral hypoglycemic drugs; Z79.899 Other long term (current) drug therapy; Z87.891 Personal history of nicotine dependence; Z86.718 Personal history of other venous thrombosis and embolism; Z86.711 Personal history of pulmonary embolism; Z98.1 Arthrodesis status; Z71.3 Dietary counseling and surveillance; Y84.6 Urinary catheterization as the cause of abnormal reaction of the patient, or of later complication, without mention of misadventure at the time of the procedure; Z88.8 Allergy status to other drugs, medicaments and biological substances
CPT/HCPCS: 36415; 36556; 71046; 74176; 76770; 76937; 77001; 80048; 80053; 81001; 83605; 85025; 85652; 86140; 87040; 87070; 87075; 87077; 87086; 87186; 87205; 87635; 87636; 94640; 96361; 96365; 96375; 99285

== ENCOUNTER 2023-01-30 16:27 | Inpatient (IN) | payer MEDICARE ==
--- NOTE | 2023-01-30 16:59 | ED ---
Recheck HPI - General Chief Complaint: Recheck/Abnormal Lab/Rx Stated Complaint: Abnormal Labs Time Seen by Provider: 01/30/23 16:46 Source: patient, EMS, RN notes reviewed, old records reviewed, Caregiver (Medical records transfer summary from [facility]) Mode of arrival: EMS Limitations: no limitations - History of Present Illness Initial Comments: This is a nontoxic appearing 87-year-old male, alert and oriented, sent from [facility] for an elevated creatinine of 3.39 up from 1.1 on January 18. Patient was started on vancomycin for pressure ulcers to his left heel and sacrum. Vancomycin was held on January 28 due to elevation in creatinine. Sent today for admission. MD Complaint: abnormal lab -: days(s) (2) Returns Today for: other (Acute kidney injury creatinine 3.39) Symptoms Since Prior Visit: no new symptoms - Related Data Home Medications Medication Instructions Recorded Confirmed Tamsulosin HCl [Flomax] 0.4 mg PO DAILY@0800 02/14/18 01/30/23 Pantoprazole Sodium [Protonix] 40 mg PO DAILY@0600 10/20/22 01/30/23 Albuterol Inhaler [Ventolin Hfa 2 puff INHALATION RT-Q6H 10/28/22 01/30/23 Inhaler] Apixaban [Eliquis] 2.5 mg PO BID@0800,1700 10/28/22 01/30/23 Aspirin 81 mg PO DAILY@1200 10/28/22 01/30/23 Ensure Enlive 237 ml PO TID@0800,1200,1700 10/28/22 01/30/23 Eucerin Advanced Repair Cream 1 applic TOPICAL DAILY 10/28/22 01/30/23 Eucerin Advanced Repair Cream 1 applic TOPICAL DAILY PRN 10/28/22 01/30/23 Magnesium Hydroxide [Milk of 7,200 mg PO Q48H PRN 10/28/22 01/30/23 Magnesia Concentrate] Na Phos,M-B/Na Phos,Di-Ba [Fleet 133 ml RECTAL DAILY PRN 10/28/22 01/30/23 Adult] bisacodyL [Dulcolax] 10 mg RECTAL DAILY PRN 10/28/22 01/30/23 Amiodarone [Cordarone] 200 mg PO BID@0800,1700 12/14/22 01/30/23 Dapagliflozin Propanediol [Farxiga] 10 mg PO DAILY@0800 01/09/23 01/30/23 Ferrous Sulfate [Iron (65 MG 325 mg PO DAILY@1700 01/09/23 01/30/23 Elemental)] Furosemide [Lasix] 20 mg PO BID@0800,1700 01/09/23 01/30/23 Lactulose 30 gm PO DAILY@0800 01/09/23 01/30/23 Metoprolol Succinate (ER) [Toprol 12.5 mg PO DAILY@0800 01/09/23 01/30/23 XL] Multivitamins, Thera [Multivitamin 1 tab PO DAILY@1200 01/09/23 01/30/23 (formulary)] Spironolactone [Aldactone] 25 mg PO DAILY@0800 01/09/23 01/30/23 Thiamine [Vitamin B-1] 100 mg PO BID@0800,1700 01/09/23 01/30/23 polyethylene glycoL 3350 [Miralax] 17 gm PO DAILY@0800 01/09/23 01/30/23 Previous Rx's Medication Instructions Recorded Folic Acid 1 mg PO DAILY@1200 tab 12/25/22 HYDROcodone/APAP 5-325MG [[place] 1 tab PO Q6HR PRN 3 Days #12 tab 12/25/22 5-325] Cefepime [Maxipime] 2 gm IVPB Q12H #84 each 01/18/23 Vancomycin/Water For Inj (Peg) 1,250 mg IV DAILY #42 each 01/18/23 [Vancomycin 750 mg/150 ml Bag] metroNIDAZOLE [Flagyl] 500 mg PO TID #90 tab 01/18/23 Allergies Allergy/AdvReac Type Severity Reaction Status Date / Time memantine [From Namenda] AdvReac Nausea & Verified 01/30/23 18:12 Vomiting & Diarrhea Review of Systems ROS Statement: Those systems with pertinent positive or pertinent negative responses have been documented in the HPI. ROS Other: All systems not noted in ROS Statement are negative. 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 History of Any Multi-Drug Resistant Organisms: MRSA Date of last positivie culture/infection: 01/14/23 MDRO Source:: Left Heel Past Surgical History: Bowel Resection Additional Past Surgical History / Comment(s): 2020 bowel resection/colostomy, CVA in 1955 which made need for R elbow surgery/R ankle fusion, post cva surgery on back to remove blood clot, bilateral eye lens implants. Past Anesthesia/Blood Transfusion Reactions: No Reported Reaction Additional Past Anesthesia/Blood Transfusion Reaction / Comment(s): Pt believes he has received blood in past without reaction. Past Psychological History: No Psychological Hx Reported Smoking Status: Former smoker Past Alcohol Use History: None Reported Past Drug Use History: None Reported - Past Family History Mother Family Medical History: Dementia Additional Family Medical History / Comment(s): ALZHEIMERS Father Family Medical History: No Reported History Additional Family Medical History / Comment(s): Pt states his father was healthy General Exam Limitations: no limitations General appearance: alert, in no apparent distress Head exam: Present: atraumatic Eye exam: Absent: scleral icterus, conjunctival injection, periorbital swelling Neck exam: Absent: meningismus Respiratory exam: Absent: respiratory distress, accessory muscle use Cardiovascular Exam: Present: bradycardia GI/Abdominal exam: Present: soft, other (Colostomy with soft brown stool) Extremities exam: Present: normal capillary refill. Absent: pedal edema, calf tenderness Neurological exam: Present: alert Psychiatric exam: Present: normal affect, normal mood Skin exam: Present: warm, dry, normal color, other (Ulcers to the anterior aspect of the distal tib-fib/ankle, left heel, left lateral fifth metatarsal). Absent: cyanosis, diaphoretic, petechiae, pallor Course Vital Signs 01/30/23 01/30/23 16:33 18:13 Temperature 97.5 F L Pulse Rate 57 L 55 L Respiratory 18 18 Rate Blood Pressure 149/89 90/60 O2 Sat by Pulse 98 96 Oximetry Medical Decision Making - Medical Decision Making Was pt. sent in by a medical professional or institution (JOSHUA Brunson, MANAGER TRAINING, urgent care, hospital, or long term...) When possible be specific @ -[facility] Did you speak to anyone other than the patient for history (EMS, parent, family, police, friend...)? What history was obtained from this source @ -No Did you review nursing and triage notes (agree or disagree)? Why? @ -I reviewed and agree with nursing and triage notes Were old charts reviewed (outside hosp., previous admission, EMS record, old EKG, old radiological studies, urgent care reports/EKG's, long term records)? Report findings @ -Discharge notes from January 18 Differential Diagnosis (chest pain, altered mental status, abdominal pain women, abdominal pain men, vaginal bleeding, weakness, fever, dyspnea, syncope, headache, dizziness, GI bleed, back pain, seizure, CVA, palpatations, mental health, musculoskeletal)? @ -Nephrotoxin from antibiotics, acute kidney injury, EKG interpreted by me (3pts min.). @ -n/a X-rays interpreted by me (1pt min.). @ -None done CT interpreted by me (1pt min.). @ -None done U/S interpreted by me (1pt. min.). @ -None done What testing was considered but not performed or refused? (CT, X-rays, U/S, labs)? Why? @ -None What meds were considered but not given or refused? Why? @ -None Did you discuss the management of the patient with other professionals (professionals i.e. JOSHUA Brunson, MANAGER TRAINING, lab, RT, psych nurse, dialysis social worker, gun mechanic, teacher, health promotion officer, case making machine operator)? Give summary @ -No Was smoking cessation discussed for >3mins.? @ -No Was critical care preformed (if so, how long)? @ -No Were there social determinants of health that impacted care today? How? (Homelessness, low income, unemployed, alcoholism, drug addiction, transportation, low edu. Level, literacy, decrease access to med. care, assisted, rehab)? @ -No Was there de-escalation of care discussed even if they declined (Discuss DNR or withdrawal of care, Hospice)? DNR status @ -No What co-morbidities impacted this encounter? (DM, HTN, Smoking, COPD, CAD, Cancer, CVA, ARF, Chemo, Hep., AIDS, mental health diagnosis, sleep apnea, morbid obesity)? @ -Patient has a history of A. fib, CVA, DVT, hypertension, hyperlipidemia, colostomy, bowel resection, BPH, Was patient admitted / discharged? Hospital course, mention meds given and route, prescriptions, significant lab abnormalities, going to OR and other pertinent info. @ -Admitted Patient was discharged from the hospital on January 18 for acute urinary tract infection due to indwelling Carranza catheter resulting in sepsis. Discharged on Flagyl and cefepime. Patient sent from [facility] today with acute kidney injury, creatinine 3.39 up from previous is alt of 1.1 on January 18. Vancomycin currently on hold as of January 28. Patient will be admitted for VALERI, sacral and foot ulcer, and UTI with infectious disease consult Case discussed with Dr. Ceja. Undiagnosed new problem with uncertain prognosis? @ -No Drug Therapy requiring intensive monitoring for toxicity (Heparin, Nitro, Insulin, Cardizem)? @ -No Were any procedures done? @ -No Diagnosis/symptom? @ -Acute kidney injury, sacral and left foot ulcers Acute, or Chronic, or Acute on Chronic? @ -Acute Uncomplicated (without systemic symptoms) or Complicated (systemic symptoms)? @ -Complicated Side effects of treatment? @ -No Exacerbation, Progression, or Severe Exacerbation? @ -No Poses a threat to life or bodily function? How? (Chest pain, [place], [place], pneumonia, PE, COPD, DKA, ARF, appy, cholecystitis, CVA, Diverticulitis, Homicidal, Suicidal, threat to staff... and all critical care pts) @ -No - Lab Data Lab Results 01/30/23 Range/Units 17:11 Urine Color Yellow Urine Appearance Turbid (Clear) Urine pH 5.5 (5.0-8.0) Ur Specific [place] 1.019 (1.001-1.035) Urine Protein 2+ H (Negative) Urine Glucose (UA) Trace H (Negative) Urine Ketones Trace H (Negative) Urine Blood Moderate H (Negative) Urine Nitrite Negative (Negative) Urine Bilirubin Negative (Negative) Urine Urobilinogen <2.0 (<2.0) mg/dL Ur Leukocyte Esterase Large H (Negative) Urine RBC 66 H (0-5) /hpf Urine WBC >182 H (0-5) /hpf Urine WBC Clumps Many H (None) /hpf Urine Bacteria Occasional H (None) /hpf Urine Mucus Many H (None) /hpf Urine Yeast (Budding) Many H (None) /hpf Disposition Clinical Impression: VALERI (acute kidney injury), Pressure ulcer of left foot, unstageable Disposition: ADMITTED IP TO THIS HOSP Decision Date: 01/30/23 Decision Time: 17:10
[2023-01-30 17:31] LABS: Appearance,Urine Turbid (Clear); Bacteria,Urine Occasional /hpf; Bilirubin,Urine Negative (Negative); Blood,Urine Moderate (Negative); Budding Yeast,Urine Many /hpf; Color,Urine Yellow; Glucose,Urine (UA) Trace (Negative); Ketones,Urine Trace (Negative); Leukocyte Esterase,Urine Large (Negative); Mucus,Urine Many /hpf; Nitrite,Urine Negative (Negative); PH, Urine 5.5 (5.0-8.0); Protein,Urine 2+ (Negative); RBC,Urine 66 /hpf (0-5); Specific Gravity,Urine 1.019 (1.001-1.035); Urobilinogen,Urine <2.0 mg/dL (<2.0); WBC,Urine >182 /hpf (0-5)
[2023-01-30] MEDS ORDERED: NALOXONE 0.4 MG/ML 1 ML VIAL IV PRN (17:49)
[2023-01-30] MEDS ORDERED: SODIUM CHLORIDE 0.9% 1,000 ML IV ONE (22:04)
[2023-01-30] MEDS ORDERED: bisacodyL 10 MG SUPP RECTAL PRN (22:48)
[2023-01-31] MEDS: ALBUTEROL NEBULIZED 2.5 MG/3 ML INHALATION SCH ×4 (03:56→22:25)
[2023-01-31 04:44] LABS: Anisocytosis Slight; HCT 30.6 % (39.0-53.0); HGB 9.5 gm/dL (13.0-17.5); Hypochromasia Moderate; MCH 27.6 pg (25.0-35.0); Mean Platelet Volume 8.7; Platelet Count 218 k/uL (150-450); RBC 3.43 m/uL (4.30-5.90); WBC 8.8 k/uL (3.8-10.6)
[2023-01-31 04:57] LABS: African American GFR (CKD) 17 (>60 ml/min/1.73 sqM); Anion Gap 10 mmol/L; Blood Urea Nitrogen 61 mg/dL (9-20); Calcium 8.3 mg/dL (8.4-10.2); Carbon Dioxide 22 mmol/L (22-30); Chloride 104 mmol/L (98-107); Glucose 80 mg/dL (74-99); Non-African American GFR(CKD) 14 (>60 ml/min/1.73 sqM); Potassium 4.7 mmol/L (3.5-5.1); Sodium 136 mmol/L (137-145)
--- NOTE | 2023-01-31 06:16 | P.HPIM ---
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 fib on Eliquis, left heel ulcer, history of DVT, hypertension, hyperlipidemia, history of CVA (residual right upper extremity weakness), who was sent from [facility] for an elevated creatinine. Of note, the patient was recently admitted from 01/09-01/18 for left heel ulcer for which the patient underwent debridement on 01/15. He was subsequently discharged to [facility] with a right IJ central venous catheter for IV vancomycin treatment. The patient's creatinine was noted to be elevated to 3.39 up from baseline of 1.1. The patient's vancomycin was subsequently held after January 28. He was eventually sent in to the hospital due to worsening creatinine. The patient had no active complaints at the time of interview. He denied experiencing chest discomfort or shortness of breath. Also denied nausea, vomiting, abdominal pain, diarrhea. ED documentation reviewed and case discussed with ED provider. Review of systems: Pertinent positives and negatives as discussed in HPI, a complete review of systems was performed and all other systems are negative. Physical examination: Vital signs reviewed General: non toxic, no distress, appears at stated age, normal weight Derm: Left heel necrotic ulcer for a 5 cm with surrounding erythema noted, warm Head: atraumatic, normocephalic, symmetric Eyes: EOMI, no lid lag, anicteric sclera, pupils equal round reactive to light ENT: Nose and ears atraumatic Neck: No cervical lymphadenopathy, trachea midline, supple Mouth: no lip lesion, mucus membranes moist Cardiovascular: S1S2 reg, no murmur, positive dorsalis pedis pulse bilateral, no edema Lungs: CTA bilateral, no rhonchi, no rales, no accessory muscle use Abdominal: soft, nontender to palpation, no guarding Ext: muscle strength 3 out of 5 in all 4 extremities grossly, no contractures noted, right upper extremity residual weakness noted Neuro: CN II-XI grossly intact, no gross focal neuro deficits Psych: Alert, oriented, appropriate affect Assessment: VALERI, likely vancomycin-induced nephrotoxicity Left lower extremity necrotic ulcer with surrounding cellulitis Normocytic anemia Chronic conditions: A. fib, history of DVT, hypertension, hyperlipidemia, history of CVA Imaging: None performed Data Review: Laboratory evaluation reveals a hemoglobin of 9.5, sodium 136, BUN 61, creatinine 3.59, grossly abnormal UA. Plan: Continue with IV fluids with normal saline 75 mL per hour Nephrology consulted Infectious disease consulted Continue with remaining home medications DVT prophylaxis: Kandice The patient is admitted with an anticipated greater than 2 midnight stay for evaluation of VALERI CODE STATUS: Full Code Discussed with: Patient Anticipated discharge place: [facility] Past Medical History Past Medical History: Atrial Fibrillation, CVA/TIA, Deep Vein Thrombosis (DVT), Hyperlipidemia, Hypertension, Prostate Disorder, Pulmonary Embolus (PE), Sup raventricular Tachycardia (SVT) Additional Past Medical History / Comment(s): 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 History of Any Multi-Drug Resistant Organisms: MRSA Date of last positivie culture/infection: 01/14/23 MDRO Source:: Left Heel Past Surgical History: Bowel Resection Additional Past Surgical History / Comment(s): 2020 bowel resection/colostomy, CVA in 1955 which made need for R elbow surgery/R ankle fusion, post cva surgery on back to remove blood clot, bilateral eye lens implants. Past Anesthesia/Blood Transfusion Reactions: No Reported Reaction Additional Past Anesthesia/Blood Transfusion Reaction / Comment(s): Pt believes he has received blood in past without reaction. Past Psychological History: No Psychological Hx Reported Additional Psychological History / Comment(s): Pt lives at [facility], Smoking Status: Former smoker Past Alcohol Use History: None Reported Additional Past Alcohol Use History / Comment(s): Pt started smoking a pipe in and quit in 1995. Past Drug Use History: None Reported - Past Family History Mother Family Medical History: Dementia Additional Family Medical History / Comment(s): ALZHEIMERS Father Family Medical History: No Reported History Additional Family Medical History / Comment(s): Pt states his father was healthy Medications and Allergies Home Medications Medication Instructions Recorded Confirmed Type Tamsulosin HCl [Flomax] 0.4 mg PO DAILY@0800 02/14/18 01/30/23 History Pantoprazole Sodium [Protonix] 40 mg PO DAILY@0600 10/20/22 01/30/23 History Albuterol Inhaler [Ventolin Hfa 2 puff INHALATION RT-Q6H 10/28/22 01/30/23 History Inhaler] Apixaban [Eliquis] 2.5 mg PO BID@0800,1700 10/28/22 01/30/23 History Aspirin 81 mg PO DAILY@1200 10/28/22 01/30/23 History Ensure Enlive 237 ml PO TID@0800,1200,1700 10/28/22 01/30/23 History Eucerin Advanced Repair Cream 1 applic TOPICAL DAILY 10/28/22 01/30/23 History Eucerin Advanced Repair Cream 1 applic TOPICAL DAILY PRN 10/28/22 01/30/23 History Magnesium Hydroxide [Milk of 7,200 mg PO Q48H PRN 10/28/22 01/30/23 History Magnesia Concentrate] Na Phos,M-B/Na Phos,Di-Ba [Fleet 133 ml RECTAL DAILY PRN 10/28/22 01/30/23 History Adult] bisacodyL [Dulcolax] 10 mg RECTAL DAILY PRN 10/28/22 01/30/23 History Amiodarone [Cordarone] 200 mg PO BID@0800,1700 12/14/22 01/30/23 History Folic Acid 1 mg PO DAILY@1200 tab 12/25/22 01/30/23 Rx HYDROcodone/APAP 5-325MG [[place] 1 tab PO Q6HR PRN 3 Days #12 tab 12/25/22 01/30/23 Rx 5-325] Dapagliflozin Propanediol [Farxiga] 10 mg PO DAILY@0800 01/09/23 01/30/23 History Ferrous Sulfate [Iron (65 MG 325 mg PO DAILY@1700 01/09/23 01/30/23 History Elemental)] Furosemide [Lasix] 20 mg PO BID@0800,1700 01/09/23 01/30/23 History Lactulose 30 gm PO DAILY@0800 01/09/23 01/30/23 History Metoprolol Succinate (ER) [Toprol 12.5 mg PO DAILY@0800 01/09/23 01/30/23 History XL] Multivitamins, Thera [Multivitamin 1 tab PO DAILY@1200 01/09/23 01/30/23 History (formulary)] Spironolactone [Aldactone] 25 mg PO DAILY@0800 01/09/23 01/30/23 History Thiamine [Vitamin B-1] 100 mg PO BID@0800,1700 01/09/23 01/30/23 History polyethylene glycoL 3350 [Miralax] 17 gm PO DAILY@0800 01/09/23 01/30/23 History Cefepime [Maxipime] 2 gm IVPB Q12H #84 each 01/18/23 01/30/23 Rx Vancomycin/Water For Inj (Peg) 1,250 mg IV DAILY #42 each 01/18/23 01/30/23 Rx [Vancomycin 750 mg/150 ml Bag] metroNIDAZOLE [Flagyl] 500 mg PO TID #90 tab 01/18/23 01/30/23 Rx Allergies Allergy/AdvReac Type Severity Reaction Status Date / Time memantine [From Namenda] AdvReac Nausea & Verified 01/30/23 18:12 Vomiting & Diarrhea Physical Exam Vitals: Vital Signs Temp Pulse Pulse Resp BP BP Pulse Ox 01/31/23 01:08 97.6 F 68 16 120/44 94 L 01/31/23 00:30 63 16 120/74 94 L 01/30/23 23:40 64 16 120/74 94 L 01/30/23 20:00 114/77 01/30/23 18:13 55 L 18 90/60 96 01/30/23 16:33 97.5 F L 57 L 18 149/89 98 Intake and Output 01/30/23 01/30/23 01/31/23 14:59 22:59 06:59 Output Total 600 Balance -600 Output: Urine 600 Other: Voiding Method Indwelling Catheter Weight 65.771 kg 65.771 kg Results CBC & Chem 7: 01/31/23 03:57 01/31/23 03:57 Labs: Abnormal Lab Results - Last 24 Hours (Table) 01/30/23 Range/Units 17:11 Urine Protein 2+ H (Negative) Urine Glucose (UA) Trace H (Negative) Urine Ketones Trace H (Negative) Urine Blood Moderate H (Negative) Ur Leukocyte Esterase Large H (Negative) Urine RBC 66 H (0-5) /hpf Urine WBC >182 H (0-5) /hpf Urine WBC Clumps Many H (None) /hpf Urine Bacteria Occasional H (None) /hpf Urine Mucus Many H (None) /hpf Urine Yeast (Budding) Many H (None) /hpf
[2023-01-31] MEDS: PANTOPRAZOLE 40 MG TABLET PO SCH (06:24)
[2023-01-31] MEDS: SODIUM CHLORIDE 0.9% 1,000 ML IV SCH ×2 (06:24→19:21)
[2023-01-31] MEDS ORDERED: DAPAGLIFLOZIN PROPANEDIOL 10 MG TABLET PO SCH (08:00)
[2023-01-31] MEDS ORDERED: SPIRONOLACTONE 25 MG TAB PO SCH (08:00)
[2023-01-31] MEDS: LACTULOSE 20 GM/30 ML CUP PO SCH (09:25)
[2023-01-31] MEDS: AMIODARONE 200 MG TAB PO SCH ×2 (09:26→17:05)
[2023-01-31] MEDS: METOPROLOL SUCCINATE (ER) 25 MG TAB.ER.24H PO SCH (09:26)
[2023-01-31] MEDS: TAMSULOSIN 0.4 MG CAP.ER.24H PO SCH (09:26)
[2023-01-31] MEDS: APIXABAN 2.5 MG TABLET PO SCH ×3 (09:26→16:44)
--- NOTE | 2023-01-31 10:12 | P.PN ---
Subjective Progress Note Date: 01/31/23 Patient is a 87-year-old male with extensive past medical history including a recent hospital stay where he was discharged on 01/18 with an infected wound which was debrided on 01/15. He has been receiving IV vancomycin at the detention. He was sent back in for elevated creatinine. Random vancomycin level was 30 R [place]. Patient seen and examined at bedside. He denies any pain, cough, shortness of breath. No nausea. Vital signs reviewed General: nontoxic, no distress, appears at stated age Cardiovascular: S1S2 reg, no murmur, positive posterior tibial pulse bilateral, Lungs: CTA bilateral, no rhonchi, no rales , no accessory muscle use Ext: + gross muscle atrophy, no edema b/l lower extremities Neuro: CN II-XI grossly intact, no focal neuro deficits Psych: Alert, oriented, appropriate affect Assessment: VALERI, suspect vancomycin-induced nephrotoxicity - Vancomycine random level at [facility] was 30 Poly microbial Left lower extremity necrotic ulcer with surrounding cellulitis Normocytic anemia Social stressor- on comfort measures in the ICU Chronic conditions: Perminent A. fib anticoagulated with Eliquis Hypertension Hyperlipidemia History of CVA with residual right sided deficits Imaging: none new Data Review: Vitals reviewed in T-max last 24 hours 97.6 Laboratory analysis from this morning was remarkable for hemoglobin of 9.5, creatinine 3.59 (up from 3.39 on 01/30 and 2.7 on 01/28) Plan: - hold vanco, await ID and nephrology recs - hold lasix 20 gm BID, aldactone, farxiga - NS at 75 cc/hr - Resume home flagyl 500 mg TID and cefepime - continue with toprol 12.5 mg daily and amio 200 mg BID - flomax 0.4 mg daily - Eliquis 2.5 mg BID - Repeat CBC and BMP in AM, check vanco level. DVT prophylaxis: Eliquis Anticipated discharge date: pending clinical course Anticipated discharge place: return to [facility] This dictation was prepared using [employer] voice recognition software. Though every attempt is made to correct errors during dictation some may still exist. Objective - Vital Signs Vital signs: Vital Signs Temp 97.6 F 01/31/23 07:20 Pulse 96 01/31/23 10:03 Resp 16 01/31/23 07:20 BP 104/65 01/31/23 07:20 Pulse Ox 96 01/31/23 07:20 FiO2 Intake & Output 01/30/23 01/31/23 01/31/23 18:59 06:59 18:59 Output Total 600 500 Balance -600 -500 Weight 65.771 kg 65.771 kg Output: Urine 600 500 Other: Voiding Method Indwelling Catheter Indwelling Catheter - Labs CBC & Chem 7: 01/31/23 03:57 01/31/23 03:57 Labs: Abnormal Lab Results - Last 24 Hours (Table) 01/30/23 01/31/23 01/31/23 Range/Units 17:11 03:57 03:57 RBC 3.43 L (4.30-5.90) m/uL Hgb 9.5 L (13.0-17.5) gm/dL Hct 30.6 L (39.0-53.0) % RDW 18.0 H (11.5-15.5) % Sodium 136 L (137-145) mmol/L BUN 61 H (9-20) mg/dL Creatinine 3.59 H (0.66-1.25) mg/dL Calcium 8.3 L (8.4-10.2) mg/dL Urine Protein 2+ H (Negative) Urine Glucose (UA) Trace H (Negative) Urine Ketones Trace H (Negative) Urine Blood Moderate H (Negative) Ur Leukocyte Esterase Large H (Negative) Urine RBC 66 H (0-5) /hpf Urine WBC >182 H (0-5) /hpf Urine WBC Clumps Many H (None) /hpf Urine Bacteria Occasional H (None) /hpf Urine Mucus Many H (None) /hpf Urine Yeast (Budding) Many H (None) /hpf
[2023-01-31] MEDS: metroNIDAZOLE 500 MG TAB PO SCH ×3 (10:48→20:45)
[2023-01-31] MEDS: CEFEPIME 2 GM in SODIUM CHLORIDE 0.9% 100 ML IVPB SCH ×2 (10:48→20:45)
--- NOTE | 2023-01-31 10:54 | P.NPCON ---
History of Present Illness - Reason for Consult acute renal failure - History of Present Illness Patient is an 87-year-old male with history of hypertension, CVA with residual right upper extremity weakness, urine retention with indwelling Carranza catheter and left heel ulcer. Patient was maintained on IV vancomycin while at rehab. Patient was hospitalized last month for left heel ulcer and is status post debridement on 01/18/23 Admitted due to worsening labs, creatinine was elevated at 3.39. Previous creatinine 2.7 on 01/28/2023 and 1.2 on 01/18/2023 Vancomycin level was elevated at 37.6 on 01/28/2023 Patient has had good urine output from his Carranza. Blood pressure was low with systolic in the 90s Patient was maintained on farxiga prior to admission. 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 History of Any Multi-Drug Resistant Organisms: MRSA Date of last positivie culture/infection: 01/14/23 MDRO Source:: Left Heel Past Surgical History: Bowel Resection Additional Past Surgical History / Comment(s): 2020 bowel resection/colostomy, CVA in 1955 which made need for R elbow surgery/R ankle fusion, post cva surgery on back to remove blood clot, bilateral eye lens implants. Past Anesthesia/Blood Transfusion Reactions: No Reported Reaction Additional Past Anesthesia/Blood Transfusion Reaction / Comment(s): Pt believes he has received blood in past without reaction. Past Psychological History: No Psychological Hx Reported Additional Psychological History / Comment(s): Pt lives at [facility], Smoking Status: Former smoker Past Alcohol Use History: None Reported Additional Past Alcohol Use History / Comment(s): Pt started smoking a pipe in 1967 and quit in 1995. Past Drug Use History: None Reported - Past Family History Mother Family Medical History: Dementia Additional Family Medical History / Comment(s): ALZHEIMERS Father Family Medical History: No Reported History Additional Family Medical History / Comment(s): Pt states his father was healthy Medications and Allergies Home Medications Medication Instructions Recorded Confirmed Type Tamsulosin HCl [Flomax] 0.4 mg PO DAILY@0800 02/14/18 01/30/23 History Pantoprazole Sodium [Protonix] 40 mg PO DAILY@0600 10/20/22 01/30/23 History Albuterol Inhaler [Ventolin Hfa 2 puff INHALATION RT-Q6H 10/28/22 01/30/23 History Inhaler] Apixaban [Eliquis] 2.5 mg PO BID@0800,1700 10/28/22 01/30/23 History Aspirin 81 mg PO DAILY@1200 10/28/22 01/30/23 History Ensure Enlive 237 ml PO TID@0800,1200,1700 10/28/22 01/30/23 History Eucerin Advanced Repair Cream 1 applic TOPICAL DAILY 10/28/22 01/30/23 History Eucerin Advanced Repair Cream 1 applic TOPICAL DAILY PRN 10/28/22 01/30/23 History Magnesium Hydroxide [Milk of 7,200 mg PO Q48H PRN 10/28/22 01/30/23 History Magnesia Concentrate] Na Phos,M-B/Na Phos,Di-Ba [Fleet 133 ml RECTAL DAILY PRN 10/28/22 01/30/23 History Adult] bisacodyL [Dulcolax] 10 mg RECTAL DAILY PRN 10/28/22 01/30/23 History Amiodarone [Cordarone] 200 mg PO BID@0800,1700 12/14/22 01/30/23 History Folic Acid 1 mg PO DAILY@1200 tab 12/25/22 01/30/23 Rx HYDROcodone/APAP 5-325MG [[place] 1 tab PO Q6HR PRN 3 Days #12 tab 12/25/22 01/30/23 Rx 5-325] Dapagliflozin Propanediol [Farxiga] 10 mg PO DAILY@0800 01/09/23 01/30/23 History Ferrous Sulfate [Iron (65 MG 325 mg PO DAILY@1700 01/09/23 01/30/23 History Elemental)] Furosemide [Lasix] 20 mg PO BID@0800,1700 01/09/23 01/30/23 History Lactulose 30 gm PO DAILY@0800 01/09/23 01/30/23 History Metoprolol Succinate (ER) [Toprol 12.5 mg PO DAILY@0800 01/09/23 01/30/23 History XL] Multivitamins, Thera [Multivitamin 1 tab PO DAILY@1200 01/09/23 01/30/23 History (formulary)] Spironolactone [Aldactone] 25 mg PO DAILY@0800 01/09/23 01/30/23 History Thiamine [Vitamin B-1] 100 mg PO BID@0800,1700 01/09/23 01/30/23 History polyethylene glycoL 3350 [Miralax] 17 gm PO DAILY@0800 01/09/23 01/30/23 History Cefepime [Maxipime] 2 gm IVPB Q12H #84 each 01/18/23 01/30/23 Rx Vancomycin/Water For Inj (Peg) 1,250 mg IV DAILY #42 each 01/18/23 01/30/23 Rx [Vancomycin 750 mg/150 ml Bag] metroNIDAZOLE [Flagyl] 500 mg PO TID #90 tab 01/18/23 01/30/23 Rx Allergies Allergy/AdvReac Type Severity Reaction Status Date / Time memantine [From Namenda] AdvReac Nausea & Verified 01/30/23 18:12 Vomiting & Diarrhea Physical Exam Vitals: Vital Signs Temp Pulse Pulse Resp BP BP Pulse Ox 01/31/23 10:03 96 01/31/23 09:54 96 01/31/23 07:20 97.6 F 67 16 104/65 96 01/31/23 01:08 97.6 F 68 16 120/44 94 L 01/31/23 00:30 63 16 120/74 94 L 01/30/23 23:40 64 16 120/74 94 L 01/30/23 20:00 114/77 01/30/23 18:13 55 L 18 90/60 96 01/30/23 16:33 97.5 F L 57 L 18 149/89 98 Intake and Output 01/30/23 01/31/23 01/31/23 22:59 06:59 14:59 Output Total 600 500 Balance -600 -500 Output: Urine 600 500 Other: Voiding Method Indwelling Catheter Indwelling Catheter Weight 65.771 kg 65.771 kg Awake, comfortable, no acute distress Examination of the heart S1 and S2 Examination of the lungs bilateral breath sounds are heard Abdomen is soft nontender Examination of lower extremities shows no significant edema Left foot is wrapped [employer] exam grossly intact Results - Lab Results Most recent lab results Calcium 8.3 mg/dL (8.4-10.2) L 01/31/23 03:57 01/31/23 03:57 01/31/23 03:57 Assessment and Plan Assessment: 1. Acute kidney injury secondary to vancomycin toxicity and ischemic ATN from hypotension. Currently nonoliguric moderate blood and WBCs more than 182. Check ultrasound of the kidneys 2. Left heel ulcer status post vancomycin as outpatient. Currently on hold 3. History of CVA 4. Urine retention with chronic indwelling Carranza catheter for about 1 month per patient 5. Pyuria rule out UTI versus colonization 6. Anemia rule out iron deficiency Plan: Continue off of all nephrotoxic agents Check ultrasound of the kidneys Continue with IV fluids Check iron profile Agree with discontinuation of farxiga Repeat labs in a.m. Avoid hypotension Thank you for the consultation. We will continue to follow the patient with you during his hospitalization
[2023-01-31] MEDS: FOLIC ACID 1 MG TAB PO SCH (11:38)
[2023-01-31] MEDS: ASPIRIN 81 MG PO SCH (11:38)
[2023-01-31] MEDS: MULTIVITAMINS, THERA 1 EACH TAB PO SCH (11:38)
--- NOTE | 2023-01-31 14:17 | US ---
EXAMINATION TYPE: US kidneys/renal and bladder DATE OF EXAM: 01/31/2023 COMPARISON: 01/13/2023 CLINICAL INDICATION: Male, 87 years old with history of jenny; abnormal labs EXAM MEASUREMENTS: Right Kidney: 11.3x3.8x4.5 cm Left Kidney: 10.7x4.7x4.0 cm Right Kidney: No hydronephrosis or masses seen, one echogenic shadowing foci seen measuring 0.5cm Left Kidney: small septated anechoic area measured: 0.9x0.6x0.9cm Bladder: wnl, poorly visualized, mason cath seen in place Bilateral Jets seen: No There is no evidence for hydronephrosis bilaterally. Exam technically difficult due to bowel gas, rib shadows and patient inability to adjust positioning IMPRESSION: 1. Nonobstructing 5 mm right renal calculus. 2. Small hypoechoic 9 mm structure left kidney is too small to characterize. Not reported with certai nty on prior exam. Short-term 3-6 month follow-up ultrasound be obtained for further evaluation.
[2023-01-31] MEDS: COLLAGENASE 250 UNIT/GM OINTMENT 30 GM TUBE TOPICAL SCH (15:24)
--- NOTE | 2023-01-31 16:29 | P.GSCN ---
History of Present Illness History of present illness: 87-year-old gentleman patient came to the emergency room with high creatinine patient was seen by nephrology. Patient has a wound on his left foot on the heel area with some devitalized tissue and dry scab noted patient also has a wound on the dorsal aspect of the foot. Patient also has a wound on the lateral aspect the foot patient has a wound on the right gluteal area with some clarence lized tissue Patient has history A. fib on a liquids history of DVT, history of hypertension, history of prostate disorder has Carranza catheter Neck is supple Chest few crackles the lung bases graft abdomen is soft nontender patient has a colostomy Vascular femorals are 1+ bilateral left heel wound dorsal aspect the foot and lateral aspect the foot and gluteal area that would be debrided we will arrange for Ms. deep culture follow with you Past Medical History Past Medical History: Atrial Fibrillation, CVA/TIA, Deep Vein Thrombosis (DVT), Hyperlipidemia, Hypertension, Prostate Disorder, Pulmonary Embolus (PE), Supraventricular Tachycardia (SVT) Additional Past Medical History / Comment(s): 1955 CVA with R sided weakness/sp eech difficulty, post cva pt states he had a blood clot that went into his back/surgery to remove, , 2020 fecal impaction/bowel perforation with sepsis/has colostomy, colitis, colon polyps, perstomal hernia/wears abdominal binder, past htn, BPH, pt states lasix started d/t edema, protein calorie malnutrition. History of Any Multi-Drug Resistant Organisms: MRSA Year Discovered:: 01/14/23 MDRO Source:: Left Heel Past Surgical History: Bowel Resection Additional Past Surgical History / Comment(s): 2020 bowel resection/colostomy, CVA in 1955 which made need for R elbow surgery/R ankle fusion, post cva surgery on back to remove blood clot, bilateral eye lens implants. Past Anesthesia/Blood Transfusion Reactions: No Reported Reaction Additional Past Anesthesia/Blood Transfusion Reaction / Comm: Pt believes he has received blood in past without reaction. Past Psychological History: No Psychological Hx Reported Additional Psychological History / Comment(s): Pt lives at [facility], Smoking Status: Former smoker Past Alcohol Use History: None Reported Additional Past Alcohol Use History / Comment(s): Pt started smoking a pipe in 1967 and quit in 1995. Past Drug Use History: None Reported - Past Family History Mother Family Medical History: Dementia Additional Family Medical History / Comment(s): ALZHEIMERS Father Family Medical History: No Reported History Additional Family Medical History / Comment(s): Pt states his father was healthy Medications and Allergies Home Medications Medication Instructions Recorded Confirmed Type Tamsulosin HCl [Flomax] 0.4 mg PO DAILY@0800 02/14/18 01/30/23 History Pantoprazole Sodium [Protonix] 40 mg PO DAILY@0600 10/20/22 01/30/23 History Albuterol Inhaler [Ventolin Hfa 2 puff INHALATION RT-Q6H 10/28/22 01/30/23 History Inhaler] Apixaban [Eliquis] 2.5 mg PO BID@0800,1700 10/28/22 01/30/23 History Aspirin 81 mg PO DAILY@1200 10/28/22 01/30/23 History Ensure Enlive 237 ml PO TID@0800,1200,1700 10/28/22 01/30/23 History Eucerin Advanced Repair Cream 1 applic TOPICAL DAILY 10/28/22 01/30/23 History Eucerin Advanced Repair Cream 1 applic TOPICAL DAILY PRN 10/28/22 01/30/23 History Magnesium Hydroxide [Milk of 7,200 mg PO Q48H PRN 10/28/22 01/30/23 History Magnesia Concentrate] Na Phos,M-B/Na Phos,Di-Ba [Fleet 133 ml RECTAL DAILY PRN 10/28/22 01/30/23 History Adult] bisacodyL [Dulcolax] 10 mg RECTAL DAILY PRN 10/28/22 01/30/23 History Amiodarone [Cordarone] 200 mg PO BID@0800,1700 12/14/22 01/30/23 History Folic Acid 1 mg PO DAILY@1200 tab 12/25/22 01/30/23 Rx HYDROcodone/APAP 5-325MG [[place] 1 tab PO Q6HR PRN 3 Days #12 tab 12/25/22 01/30/23 Rx 5-325] Dapagliflozin Propanediol [Farxiga] 10 mg PO DAILY@0800 01/09/23 01/30/23 History Ferrous Sulfate [Iron (65 MG 325 mg PO DAILY@1700 01/09/23 01/30/23 History Elemental)] Furosemide [Lasix] 20 mg PO BID@0800,1700 01/09/23 01/30/23 History Lactulose 30 gm PO DAILY@0800 01/09/23 01/30/23 History Metoprolol Succinate (ER) [Toprol 12.5 mg PO DAILY@0800 01/09/23 01/30/23 History XL] Multivitamins, Thera [Multivitamin 1 tab PO DAILY@1200 01/09/23 01/30/23 History (formulary)] Spironolactone [Aldactone] 25 mg PO DAILY@0800 01/09/23 01/30/23 History Thiamine [Vitamin B-1] 100 mg PO BID@0800,1700 01/09/23 01/30/23 History polyethylene glycoL 3350 [Miralax] 17 gm PO DAILY@0800 01/09/23 01/30/23 History Cefepime [Maxipime] 2 gm IVPB Q12H #84 each 01/18/23 01/30/23 Rx Vancomycin/Water For Inj (Peg) 1,250 mg IV DAILY #42 each 01/18/23 01/30/23 Rx [Vancomycin 750 mg/150 ml Bag] metroNIDAZOLE [Flagyl] 500 mg PO TID #90 tab 01/18/23 01/30/23 Rx Allergies Allergy/AdvReac Type Severity Reaction Status Date / Time memantine [From Namenda] AdvReac Nausea & Verified 01/30/23 18:12 Vomiting & Diarrhea Surgical - Exam Vital Signs Temp Pulse Resp BP Pulse Ox 97.5 F L 57 L 18 149/89 98 01/30/23 16:33 01/30/23 16:33 01/30/23 16:33 01/30/23 16:33 01/30/23 16:33 Results - Labs 01/31/23 03:57 01/31/23 03:57 Abnormal Lab Results - Last 24 Hours (Table) 01/30/23 01/31/23 01/31/23 Range/Units 17:11 03:57 03:57 RBC 3.43 L (4.30-5.90) m/uL Hgb 9.5 L (13.0-17.5) gm/dL Hct 30.6 L (39.0-53.0) % RDW 18.0 H (11.5-15.5) % Sodium 136 L (137-145) mmol/L BUN 61 H (9-20) mg/dL Creatinine 3.59 H (0.66-1.25) mg/dL Calcium 8.3 L (8.4-10.2) mg/dL Urine Protein 2+ H (Negative) Urine Glucose (UA) Trace H (Negative) Urine Ketones Trace H (Negative) Urine Blood Moderate H (Negative) Ur Leukocyte Esterase Large H (Negative) Urine RBC 66 H (0-5) /hpf Urine WBC >182 H (0-5) /hpf Urine WBC Clumps Many H (None) /hpf Urine Bacteria Occasional H (None) /hpf Urine Mucus Many H (None) /hpf Urine Yeast (Budding) Many H (None) /hpf Diabetes panel 01/31/23 Range/Units 03:57 Sodium 136 L (137-145) mmol/L Potassium 4.7 (3.5-5.1) mmol/L Chloride 104 (98-107) mmol/L Carbon Dioxide 22 (22-30) mmol/L BUN 61 H (9-20) mg/dL Creatinine 3.59 H (0.66-1.25) mg/dL Glucose 80 (74-99) mg/dL Calcium 8.3 L (8.4-10.2) mg/dL Calcium panel 01/31/23 Range/Units 03:57 Calcium 8.3 L (8.4-10.2) mg/dL Pituitary panel 01/31/23 Range/Units 03:57 Sodium 136 L (137-145) mmol/L Potassium 4.7 (3.5-5.1) mmol/L Chloride 104 (98-107) mmol/L Carbon Dioxide 22 (22-30) mmol/L BUN 61 H (9-20) mg/dL Creatinine 3.59 H (0.66-1.25) mg/dL Glucose 80 (74-99) mg/dL Calcium 8.3 L (8.4-10.2) mg/dL Adrenal panel 01/31/23 Range/Units 03:57 Sodium 136 L (137-145) mmol/L Potassium 4.7 (3.5-5.1) mmol/L Chloride 104 (98-107) mmol/L Carbon Dioxide 22 (22-30) mmol/L BUN 61 H (9-20) mg/dL Creatinine 3.59 H (0.66-1.25) mg/dL Glucose 80 (74-99) mg/dL Calcium 8.3 L (8.4-10.2) mg/dL
[2023-01-31] MEDS: FERROUS SULFATE 325 MG TAB PO SCH (17:06)
--- NOTE | 2023-01-31 20:25 | P.CONS ---
History of Present Illness - Reason for Consult Consult date: 01/31/23 Chronic ulcer left foot and sacrum Requesting physician: Jame Guo - Chief Complaint Worsening kidney function x few days - History of Present Illness Patient is 87 year old male with multiple comorbidities patient was recently admitted to the hospital and did have evidence of Morganella bacteremia patient also noticed to have a unstageable pressure ulcer to the left gluteal area status post surgical debridement on 01/14/2023 culture positive for Morganella Citrobacter as well as MRSA patient did get Gan catheter and the patient was advised vancomycin pharmacy to dose along with cefepime and Flagyl with the patient was currently receiving at the care home since 01/18/2023 patient apparently was noticed to have a elevated vancomycin trough of and his vancomycin was put on hold however subsequent blood work tissues patient did have elevated creatinine of 3.59 for the patient was sent to the ER for further evaluation patient currently denies having any fever or any chills patient is breathing comfortably on room air denies having any chest pain or shortness of breath or cough no nausea vomiting abdominal pain or diarrhea has been complaining of pain mostly on the dorsal aspect of the left foot the patient did have some superficial ulceration denies any worsening pain to the left heel area or any foul-smelling drainage denies any problems with his central line patient was admitted to hospital vancomycin was put on hold continue cefepime and Flagyl infectious disease was consulted for further management of antibiotic therapy Review of Systems Positive point and negatives has been mentioned in the HPI, complete review of systems was performed and all other systems are negative Past Medical History Past Medical History: Atrial Fibrillation, CVA/TIA, Deep Vein Thrombosis (DVT), Hyperlipidemia, Hypertension, Prostate Disorder, Pulmonary Embolus (PE), Supraventricular Tachycardia (SVT) Additional Past Medical History / Comment(s): 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 History of Any Multi-Drug Resistant Organisms: MRSA Year Discovered:: 01/14/23 MDRO Source:: Left Heel Past Surgical History: Bowel Resection Additional Past Surgical History / Comment(s): 2020 bowel resection/colostomy, CVA in 1955 which made need for R elbow surgery/R ankle fusion, post cva surgery on back to remove blood clot, bilateral eye lens implants. Past Anesthesia/Blood Transfusion Reactions: No Reported Reaction Additional Past Anesthesia/Blood Transfusion Reaction / Comm: Pt believes he has received blood in past without reaction. Past Psychological History: No Psychological Hx Reported Additional Psychological History / Comment(s): Pt lives at [facility], Smoking Status: Former smoker Past Alcohol Use History: None Reported Additional Past Alcohol Use History / Comment(s): Pt started smoking a pipe in 1967 and quit in 1995. Past Drug Use History: None Reported - Past Family History Mother Family Medical History: Dementia Additional Family Medical History / Comment(s): ALZHEIMERS Father Family Medical History: No Reported History Additional Family Medical History / Comment(s): Pt states his father was healthy Medications and Allergies Home Medications Medication Instructions Recorded Confirmed Type Tamsulosin HCl [Flomax] 0.4 mg PO DAILY@0800 02/14/18 02/10/23 History Pantoprazole Sodium [Protonix] 40 mg PO DAILY@0600 10/20/22 02/10/23 History Albuterol Inhaler [Ventolin Hfa 2 puff INHALATION RT-Q6H 10/28/22 02/10/23 History Inhaler] Apixaban [Eliquis] 2.5 mg PO BID@0800,1700 10/28/22 02/10/23 History Aspirin 81 mg PO DAILY@1700 10/28/22 02/10/23 History Ensure Enlive 237 ml PO TID@0800,1200,1700 10/28/22 02/10/23 History Eucerin Advanced Repair Cream 1 applic TOPICAL DAILY 10/28/22 02/10/23 History Eucerin Advanced Repair Cream 1 applic TOPICAL DAILY PRN 10/28/22 02/10/23 History Na Phos,M-B/Na Phos,Di-Ba [Fleet 133 ml RECTAL DAILY PRN 10/28/22 02/10/23 History Adult] bisacodyL [Dulcolax] 10 mg RECTAL DAILY PRN 10/28/22 02/10/23 History Amiodarone [Cordarone] 200 mg PO BID@0800,1700 12/14/22 02/10/23 History Ferrous Sulfate [Iron (65 MG 325 mg PO DAILY@1700 01/09/23 02/10/23 History Elemental)] Lactulose 30 gm PO DAILY@0800 01/09/23 02/10/23 History Metoprolol Succinate (ER) [Toprol 12.5 mg PO DAILY@0800 01/09/23 02/10/23 History XL] Multivitamins, Thera [Multivitamin 1 tab PO DAILY@1700 01/09/23 02/10/23 History (formulary)] Thiamine [Vitamin B-1] 100 mg PO BID@0800,1700 01/09/23 02/10/23 History polyethylene glycoL 3350 [Miralax] 17 gm PO DAILY@0800 01/09/23 02/10/23 History DAPTOmycin [Cubicin] 400 mg IVPB Q48H each 02/05/23 02/10/23 Rx Folic Acid 1 mg PO DAILY@1700 02/10/23 02/10/23 History metroNIDAZOLE [Flagyl] 500 mg PO TID@0800,1400,2100 02/10/23 02/10/23 History Acetaminophen Tab [Tylenol] 650 mg PO Q6HR PRN tab 02/12/23 Rx Cefepime [Maxipime] 1 gm IVPB Q12HR@0800,2100 #0 02/12/23 02/10/23 Rx Famotidine [Pepcid] 20 mg PO DAILY tab 02/12/23 Rx HYDROcodone/APAP 5-325MG [[place] 1 tab PO Q6HR PRN 3 Days #6 tab 02/12/23 Rx 5-325] Allergies Allergy/AdvReac Type Severity Reaction Status Date / Time memantine [From Namenda] AdvReac Nausea & Verified 02/10/23 20:10 Vomiting & Diarrhea Physical Exam Vitals: Vital Signs Temp Pulse Pulse Resp BP BP Pulse Ox 01/31/23 10:03 96 01/31/23 09:54 96 01/31/23 07:20 97.6 F 67 16 104/65 96 01/31/23 01:08 97.6 F 68 16 120/44 94 L 01/31/23 00:30 63 16 120/74 94 L 01/30/23 23:40 64 16 120/74 94 L 01/30/23 20:00 114/77 01/30/23 18:13 55 L 18 90/60 96 01/30/23 16:33 97.5 F L 57 L 18 149/89 98 Intake and Output 01/30/23 01/31/23 01/31/23 22:59 06:59 14:59 Output Total 600 500 Balance -600 -500 Output: Urine 600 500 Other: Voiding Method Indwelling Catheter Indwelling Catheter Weight 65.771 kg 65.771 kg GENERAL DESCRIPTION: Elderly lying in bed, no distress. No tachypnea or accessory muscle of respiration use. HEENT: Shows Pallor , no scleral icterus. Oral mucous membrane is dry. No pharyngeal erythema or thrush NECK: Trachea central, no thyromegaly. LUNGS: Unlabored breathing. Clear to auscultation anteriorly. No wheeze or crackle. HEART: S1, S2, regular rate and rhythm. No loud murmur ABDOMEN: Soft, no tenderness , guarding or rigidity, no organomegaly EXTREMITIES: Left heel with a necrotic wound VAC and showed no foul-smelling drainage SKIN: No rash, no masses palpable. NEUROLOGICAL: The patient is awake, alert, oriented x3, mood and affect normal. Results CBC & Chem 7: 02/04/23 03:38 02/05/23 04:47 Labs: Abnormal Lab Results - Last 24 Hours (Table) 01/30/23 01/31/23 01/31/23 Range/Units 17:11 03:57 03:57 RBC 3.43 L (4.30-5.90) m/uL Hgb 9.5 L (13.0-17.5) gm/dL Hct 30.6 L (39.0-53.0) % RDW 18.0 H (11.5-15.5) % Sodium 136 L (137-145) mmol/L BUN 61 H (9-20) mg/dL Creatinine 3.59 H (0.66-1.25) mg/dL Calcium 8.3 L (8.4-10.2) mg/dL Urine Protein 2+ H (Negative) Urine Glucose (UA) Trace H (Negative) Urine Ketones Trace H (Negative) Urine Blood Moderate H (Negative) Ur Leukocyte Esterase Large H (Negative) Urine RBC 66 H (0-5) /hpf Urine WBC >182 H (0-5) /hpf Urine WBC Clumps Many H (None) /hpf Urine Bacteria Occasional H (None) /hpf Urine Mucus Many H (None) /hpf Urine Yeast (Budding) Many H (None) /hpf Assessment and Plan (1) Pressure ulcer Status: Acute Code(s): L89.90 - PRESSURE ULCER OF UNSPECIFIED SITE, UNSPECIFIED STAGE SNOMED Code(s): 1085146300 (2) Pressure ulcer of left foot, unstageable Status: Acute Code(s): L89.890 - PRESSURE ULCER OF OTHER SITE, UNSTAGEABLE SNOMED Code(s): 966180117 Plan: 1patient with infected pressure ulcer to the left heel area which was debrided on 01/14/2023 culture positive for MRSA Citrobacter Morganella and anaerobes and the patient did have Morganella bacteremia repeat blood culture negative, patient presented to hospital with acute renal insufficiency possibly drug- related which has been put on hold nephrology has been consulted 2-patient noticed to have a significant necrotic changes to the left heel area we will consult vascular surgery for debridement and local wound care 3-we will continue patient cefepime Flagyl and daptomycin to cover for MRSA We will follow on clinical condition and cultures to further adjust medication if needed Thank you for this consultation we will follow the patient along with you Time with Patient: Greater than 30
[2023-02-01] MEDS: ALBUTEROL NEBULIZED 2.5 MG/3 ML INHALATION SCH ×4 (02:58→21:27)
[2023-02-01] MEDS: PANTOPRAZOLE 40 MG TABLET PO SCH (06:37)
[2023-02-01] MEDS: SODIUM CHLORIDE 0.9% 1,000 ML IV SCH ×2 (06:37→20:50)
[2023-02-01 07:27] LABS: Anisocytosis Slight; HCT 29.3 % (39.0-53.0); Hypochromasia Slight; MCH 26.9 pg (25.0-35.0); MCHC 30.6 g/dL (31.0-37.0); MCV 87.9 fL (80.0-100.0); Mean Platelet Volume 8.9; Platelet Count 207 k/uL (150-450); RBC 3.33 m/uL (4.30-5.90)
[2023-02-01 07:45] LABS: African American GFR (CKD) 17 (>60 ml/min/1.73 sqM); Anion Gap 9 mmol/L; Blood Urea Nitrogen 57 mg/dL (9-20); Carbon Dioxide 19 mmol/L (22-30); Chloride 108 mmol/L (98-107); Glucose 91 mg/dL (74-99); Non-African American GFR(CKD) 15 (>60 ml/min/1.73 sqM); Potassium 4.3 mmol/L (3.5-5.1); Sodium 136 mmol/L (137-145)
[2023-02-01] MEDS: LACTULOSE 20 GM/30 ML CUP PO SCH (09:21)
[2023-02-01] MEDS: metroNIDAZOLE 500 MG TAB PO SCH ×3 (09:41→20:47)
[2023-02-01] MEDS: ASPIRIN 81 MG PO SCH (09:41)
[2023-02-01] MEDS: METOPROLOL SUCCINATE (ER) 25 MG TAB.ER.24H PO SCH (09:41)
[2023-02-01] MEDS: TAMSULOSIN 0.4 MG CAP.ER.24H PO SCH (09:41)
[2023-02-01] MEDS: AMIODARONE 200 MG TAB PO SCH ×2 (09:41→18:08)
[2023-02-01] MEDS: MULTIVITAMINS, THERA 1 EACH TAB PO SCH (09:41)
[2023-02-01] MEDS: FOLIC ACID 1 MG TAB PO SCH (09:42)
[2023-02-01] MEDS: CEFEPIME 1 GM in SODIUM CHLORIDE 0.9% 50 ML IVPB SCH ×2 (10:59→20:47)
--- NOTE | 2023-02-01 11:09 | P.PN ---
Subjective Progress Note Date: 02/01/23 Pt is very emotional today after the loss of his . Gen: awake, alert HEENT: normocephalic, atraumatic, good hearing acuity, moist mucous membranes Resp: good air exchange, breathing comfortably with no accessory muscle use CVS: good distal perfusion x 4, GI: soft, NTTP, ND : no SPT, no CVAT, mason catheter not present MSK: no pitting edema, no clubbing Neuro: non-focal, moving all extremities Psych: cooperative, euthymic mood Hospital course: Patient is a 87-year-old male with extensive past medical history including a recent hospital stay where he was discharged on 01/18 with an infected wound which was debrided on 01/15. He has been receiving IV vancomycin at the [facility]. He was sent back in for elevated creatinine. Random vancomycin level was 30 [address] [place]. Assessment: VALERI, suspect vancomycin-induced nephrotoxicity - Vancomycine random level at [facility] was 30 Poly microbial Left lower extremity necrotic ulcer with surrounding cellulitis Normocytic anemia Social stressor- on comfort measures in the ICU Chronic conditions: Perminent A. fib anticoagulated with Eliquis Hypertension Hyperlipidemia History of CVA with residual right sided deficits Plan: Today, patient is afebrile, 92/52, heart rate 63, 95% on room air. CBC shows hemoglobin of 9 Basic metabolic panel shows sodium of 136, chloride of 108, bicarb of 19, BUN of 57, creatinine of 3.49 Order CBC, basic metabolic panel, magnesium for tomorrow Continue daptomycin 400 mg every 48 hours Continue cefepime along gram every 12 hours Continue checking random vancomycin levels daily Appreciate nephrology consultation Patient is full code Objective - Vital Signs Vital signs: Vital Signs Temp 98.1 F 02/01/23 07:30 Pulse 87 02/01/23 09:55 Resp 16 02/01/23 07:30 BP 92/52 02/01/23 07:30 Pulse Ox 95 02/01/23 07:30 FiO2 Intake & Output 01/31/23 02/01/23 02/01/23 18:59 06:59 18:59 Intake Total 550 Output Total 750 450 Balance -750 -450 550 Intake: Oral 550 Output: Urine 350 450 Stool 400 Other: Voiding Method Indwelling Catheter Indwelling Catheter Indwelling Catheter # Voids 1 - Labs CBC & Chem 7: 02/01/23 06:52 02/01/23 06:52 Labs: Abnormal Lab Results - Last 24 Hours (Table) 02/01/23 02/01/23 Range/Units 06:52 06:52 RBC 3.33 L (4.30-5.90) m/uL Hgb 9.0 L (13.0-17.5) gm/dL Hct 29.3 L (39.0-53.0) % MCHC 30.6 L (31.0-37.0) g/dL RDW 18.0 H (11.5-15.5) % Sodium 136 L (137-145) mmol/L Chloride 108 H (98-107) mmol/L Carbon Dioxide 19 L (22-30) mmol/L BUN 57 H (9-20) mg/dL Creatinine 3.49 H (0.66-1.25) mg/dL Calcium 8.0 L (8.4-10.2) mg/dL
--- NOTE | 2023-02-01 11:56 | P.PN ---
Subjective Patient is seen for follow-up for cute kidney injury related to vancomycin toxicity and hypotension. Patient has chronic indwelling Carranza catheter. He is currently maintained on IV fluids and antibiotics were changed to daptomycin. Serum creatinine down to 3.49 from 3.59 yesterday. No complaints today. Objective - Vital Signs Vital signs: Vital Signs Temp 98.1 F 02/01/23 07:30 Pulse 87 02/01/23 09:55 Resp 16 02/01/23 07:30 BP 92/52 02/01/23 07:30 Pulse Ox 95 02/01/23 07:30 FiO2 Intake & Output 01/31/23 02/01/23 02/01/23 18:59 06:59 18:59 Intake Total 550 Output Total 750 450 Balance -750 -450 550 Intake: Oral 550 Output: Urine 350 450 Stool 400 Other: Voiding Method Indwelling Catheter Indwelling Catheter Indwelling Catheter # Voids 1 - Exam Awake, comfortable, no acute distress Examination of the heart S1 and S2 Examination of the lungs bilateral breath sounds are heard Abdomen is soft nontender Examination of lower extremities shows no significant edema Left foot is wrapped TYPING CHECKER exam grossly intact - Labs CBC & Chem 7: 02/01/23 06:52 02/01/23 06:52 Labs: Abnormal Lab Results - Last 24 Hours (Table) 02/01/23 02/01/23 Range/Units 06:52 06:52 RBC 3.33 L (4.30-5.90) m/uL Hgb 9.0 L (13.0-17.5) gm/dL Hct 29.3 L (39.0-53.0) % MCHC 30.6 L (31.0-37.0) g/dL RDW 18.0 H (11.5-15.5) % Sodium 136 L (137-145) mmol/L Chloride 108 H (98-107) mmol/L Carbon Dioxide 19 L (22-30) mmol/L BUN 57 H (9-20) mg/dL Creatinine 3.49 H (0.66-1.25) mg/dL Calcium 8.0 L (8.4-10.2) mg/dL Assessment and Plan Assessment: 1. Acute kidney injury secondary to vancomycin toxicity and ischemic ATN from hypotension. Currently nonoliguric moderate blood and WBCs more than 182. Ultrasound shows nonobstructing 5 mm right renal calculus. No hydronephrosis bilaterally. 2. Left heel ulcer status post vancomycin as outpatient. Currently on hold 3. History of CVA 4. Urine retention with chronic indwelling Carranza catheter for about 1 month per patient 5. Pyuria rule out UTI versus colonization 6. Anemia rule out iron deficiency Plan: Continue off of all nephrotoxic agents Continue with IV fluids repeat labs in a.m.
[2023-02-01] MEDS: COLLAGENASE 250 UNIT/GM OINTMENT 30 GM TUBE TOPICAL SCH (12:15)
--- NOTE | 2023-02-01 12:49 | P.PCN ---
Description of Procedure: Preop diagnoses chronic wound left foot lateral aspect measurement is 2 x 2.5 Left heel wound is 7 x 3 cm right gluteal wound is 5 x 3 x 7 cm Post left foot lateral aspect wound is 2 x 2 have by 0.5 cm Left heel wound 7 x 3 x 1 cm right gluteal wound is 5 x 3 x 1 cm Procedure left foot was prepped and draped applied sterile manner 1% lidocaine for infected left heel and the lateral aspect of the left foot using knife and lateral aspect aspect of the wound was debrided down to separate his tissue fat and fascia all the devitalized tissue was removed and no active bleeding was noted this patient has a left heel wound 1% lidocaine for infected deepened through skin fat and fascia all this down to the bone on the due to his tissue was excised with sharp knife the tissue was sent for deep culture wound was irrigated with saline hemostasis well controlled and central cream applied to the heel and lateral aspect of the foot dressing were applied after that patient was kept in lateral position this patient has a right gluteal wound which was deep 5 x 3 x 1 cm there was delivered cluster tissue which was excised with sharp knife this wound is almost down to the bone on the tibia test tissue was excised with sharp knife no active bleeding was noted wound was irrigated with saline Santyl cream was applied dressing applied patient are to the procedure well and graft plan is change dressing daily with Santyl cream I we will change the dressing on Saturday patient are is on under care of infectious disease for IV antibiotic
[2023-02-01 14:34] VITALS: BMI 20.7
--- NOTE | 2023-02-01 16:23 | P.PN ---
Subjective Progress Note Date: 02/01/23 Principal diagnosis: Left heel infected pressure ulcer Patient is 87 year old male with multiple comorbidities patient was recently admitted to the hospital and did have evidence of Morganella bacteremia patient also noticed to have a unstageable pressure ulcer to the left gluteal area status post surgical debridement on 01/14/2023 culture positive for Morganella Citrobacter as well as MRSA, patient was getting vancomycin and cefepime and Flagyl [facility] now admitted to the hospital with renal failure secondary to vancomycin On today's evaluation that is 02/01/2023, the patient denies having any fever or any chills patient complaining of pain mostly to the dorsum aspect of the left foot with chest pain shortness of breath or cough no abdominal pain or diarrhea Objective - Vital Signs Vital signs: Vital Signs Temp 98.1 F 02/01/23 07:30 Pulse 87 02/01/23 09:55 Resp 16 02/01/23 07:30 BP 92/52 02/01/23 07:30 Pulse Ox 95 02/01/23 07:30 FiO2 Intake & Output 01/31/23 02/01/23 02/01/23 18:59 06:59 18:59 Intake Total 550 Output Total 750 450 Balance -750 -450 550 Intake: Oral 550 Output: Urine 350 450 Stool 400 Other: Voiding Method Indwelling Catheter Indwelling Catheter Indwelling Catheter # Voids 1 - Exam GENERAL DESCRIPTION: An elderly male lying in bed in no distress RESPIRATORY SYSTEM: Unlabored breathing , decreased breath sounds at bases HEART: S1 S2 regular rate and rhythm , ABDOMEN: Soft , no tenderness EXTREMITIES: Bilateral feet wounds are Currently dressed - Labs CBC & Chem 7: 02/01/23 06:52 02/01/23 06:52 Labs: Abnormal Lab Results - Last 24 Hours (Table) 02/01/23 02/01/23 Range/Units 06:52 06:52 RBC 3.33 L (4.30-5.90) m/uL Hgb 9.0 L (13.0-17.5) gm/dL Hct 29.3 L (39.0-53.0) % MCHC 30.6 L (31.0-37.0) g/dL RDW 18.0 H (11.5-15.5) % Sodium 136 L (137-145) mmol/L Chloride 108 H (98-107) mmol/L Carbon Dioxide 19 L (22-30) mmol/L BUN 57 H (9-20) mg/dL Creatinine 3.49 H (0.66-1.25) mg/dL Calcium 8.0 L (8.4-10.2) mg/dL Assessment and Plan (1) Pressure ulcer of left foot, unstageable Current Visit: Yes Status: Acute Code(s): L89.890 - PRESSURE ULCER OF OTHER SITE, UNSTAGEABLE SNOMED Code(s): 975279661 Plan: 1patient with infected pressure ulcer to the left heel area which was debrided on 01/14/2023 culture positive for MRSA Citrobacter Morganella and anaerobes and the patient did have Morganella bacteremia repeat blood culture negative, patient presented to hospital with acute renal insufficiency possibly drug-r elated which has been put on hold nephrology has been consulted 2-patient noticed to have a significant necrotic changes to the left heel area patient has been evaluated by vascular surgery waiting for possible debridement this afternoon 3-patient to continue with cefepime Flagyl and daptomycin and monitor clinical course closely Time with Patient: Less than 30
[2023-02-01] MEDS: APIXABAN 2.5 MG TABLET PO SCH (18:08)
[2023-02-01] MEDS: FERROUS SULFATE 325 MG TAB PO SCH (18:10)
[2023-02-02] MEDS ORDERED: ALBUTEROL NEBULIZED 2.5 MG/3 ML INHALATION PRN (00:02)
[2023-02-02] MEDS: PANTOPRAZOLE 40 MG TABLET PO SCH (05:49)
[2023-02-02 07:25] LABS: Anisocytosis Slight; Basophils % (A) 0 %; Eosinophils # (A) 0.5 k/uL (0-0.7); Eosinophils % (A) 6 %; HGB 8.9 gm/dL (13.0-17.5); Hypochromasia Marked; Lymphocytes # (A) 0.9 k/uL (1.0-4.8); Lymphocytes % (A) 11 %; MCH 26.8 pg (25.0-35.0); MCHC 29.6 g/dL (31.0-37.0); MCV 90.6 fL (80.0-100.0); Mean Platelet Volume 9.1; Monocytes # (A) 0.4 k/uL (0-1.0); Monocytes % (A) 4 %; Neutrophils # (A) 6.3 k/uL (1.3-7.7); Neutrophils % (A) 76 %; Platelet Count 198 k/uL (150-450); RBC 3.31 m/uL (4.30-5.90); RDW 18.2 % (11.5-15.5); WBC 8.3 k/uL (3.8-10.6)
[2023-02-02 08:00] LABS: African American GFR (CKD) 18 (>60 ml/min/1.73 sqM); Anion Gap 11 mmol/L; Blood Urea Nitrogen 53 mg/dL (9-20); Calcium 8.1 mg/dL (8.4-10.2); Carbon Dioxide 18 mmol/L (22-30); Chloride 109 mmol/L (98-107); Glucose 84 mg/dL (74-99); Non-African American GFR(CKD) 16 (>60 ml/min/1.73 sqM); Potassium 4.4 mmol/L (3.5-5.1); Sodium 138 mmol/L (137-145)
[2023-02-02] MEDS: ALBUTEROL NEBULIZED 2.5 MG/3 ML INHALATION SCH ×3 (08:39→22:05)
--- NOTE | 2023-02-02 09:50 | P.PN ---
Subjective Patient is seen in follow-up for acute kidney injury on chronic kidney disease. Renal function slightly improved. Receiving IV fluids. Blood pressure stable. Nonoliguric. Denies vomiting or diarrhea. Vital signs are stable. General: No acute distress. HEENT: Head exam is unremarkable. LUNGS: No audible rhonchi or wheezes. HEART: Rate and Rhythm are regular. ABDOMEN: Nontender. No distention. EXTREMITITES: No edema. Left foot drop. No drainage noted. Objective - Vital Signs Vital signs: Vital Signs Temp 97.9 F 02/02/23 07:08 Pulse 88 02/02/23 08:50 Resp 16 02/02/23 08:50 BP 119/66 02/02/23 07:08 Pulse Ox 96 02/02/23 07:08 FiO2 Intake & Output 02/01/23 02/02/23 02/02/23 18:59 06:59 18:59 Intake Total 550 Output Total 500 600 Balance 50 -600 Weight 65.771 kg Intake: Oral 550 Output: Urine 500 600 Other: Voiding Method Indwelling Catheter Indwelling Catheter - Labs CBC & Chem 7: 02/02/23 06:38 02/02/23 06:38 Labs: Abnormal Lab Results - Last 24 Hours (Table) 02/02/23 02/02/23 Range/Units 06:38 06:38 RBC 3.31 L (4.30-5.90) m/uL Hgb 8.9 L (13.0-17.5) gm/dL Hct 30.0 L (39.0-53.0) % MCHC 29.6 L (31.0-37.0) g/dL RDW 18.2 H (11.5-15.5) % Lymphocytes # 0.9 L (1.0-4.8) k/uL Chloride 109 H (98-107) mmol/L Carbon Dioxide 18 L (22-30) mmol/L BUN 53 H (9-20) mg/dL Creatinine 3.30 H (0.66-1.25) mg/dL Calcium 8.1 L (8.4-10.2) mg/dL Assessment and Plan Plan: Assessment: 1. Acute kidney injury secondary to ATN secondary to hypotension and vancomycin toxicity. Creatinine 3.59 on admission and is 3.3 today. No hydronephrosis noted on kidney ultrasound. 2. Chronic kidney disease stage IIIA with baseline creatinine 1.2-1.3 secondary to nephrosclerosis. 3. Urinary retention. Has Carranza catheter. On Flomax. 4. Left kidney hypoechoic lesion. Imaging will need to be be repeated outpatient. 5. Left foot ulcer status post debridement on antibiotics. Vascular surgery and ID following. Vancomycin discontinued. Plan: Maintain IV fluids. Avoid nephrotoxins. Continue to monitor renal function and urine output.
--- NOTE | 2023-02-02 10:22 | P.PN ---
Subjective Progress Note Date: 02/02/23 Principal diagnosis: Left heel infected pressure ulcer Patient is 87 year old male with multiple comorbidities patient was recently admitted to the hospital and did have evidence of Morganella bacteremia patient also noticed to have a unstageable pressure ulcer to the left gluteal area status post surgical debridement on 01/14/2023 culture positive for Morganella Citrobacter as well as MRSA, patient was getting vancomycin and cefepime and Flagyl at the [facility] now admitted to the hospital with renal failure secondary to vancomycin, patient did have a bedside debridement of the left heel wound by vascular surgery on 02/01/2023 On today's evaluation that is 02/02/2023, the patient denies any fever or any chills, the patient pain to the left foot is currently controlled, the patient denies chest pain shortness of breath or cough no abdominal pain or diarrhea Objective - Vital Signs Vital signs: Vital Signs Temp 97.9 F 02/02/23 07:08 Pulse 56 L 02/02/23 07:08 Resp 15 02/02/23 07:08 BP 119/66 02/02/23 07:08 Pulse Ox 96 02/02/23 07:08 FiO2 Intake & Output 02/01/23 02/02/23 02/02/23 18:59 06:59 18:59 Intake Total 550 Output Total 500 600 Balance 50 -600 Weight 65.771 kg Intake: Oral 550 Output: Urine 500 600 Other: Voiding Method Indwelling Catheter Indwelling Catheter - Exam GENERAL DESCRIPTION: An elderly male lying in bed in no distress RESPIRATORY SYSTEM: Unlabored breathing , decreased breath sounds at bases HEART: S1 S2 regular rate and rhythm , ABDOMEN: Soft , no tenderness EXTREMITIES: Bilateral feet wounds are Currently dressed - Labs CBC & Chem 7: 02/02/23 06:38 02/02/23 06:38 Labs: Abnormal Lab Results - Last 24 Hours (Table) 02/01/23 02/02/23 Range/Units 06:52 06:38 RBC 3.31 L (4.30-5.90) m/uL Hgb 8.9 L (13.0-17.5) gm/dL Hct 30.0 L (39.0-53.0) % MCHC 29.6 L (31.0-37.0) g/dL RDW 18.2 H (11.5-15.5) % Lymphocytes # 0.9 L (1.0-4.8) k/uL Sodium 136 L (137-145) mmol/L Chloride 108 H (98-107) mmol/L Carbon Dioxide 19 L (22-30) mmol/L BUN 57 H (9-20) mg/dL Creatinine 3.49 H (0.66-1.25) mg/dL Calcium 8.0 L (8.4-10.2) mg/dL Assessment and Plan (1) Pressure ulcer of left foot, unstageable Current Visit: Yes Status: Acute Code(s): L89.890 - PRESSURE ULCER OF OTHER SITE, UNSTAGEABLE SNOMED Code(s): 580407185 Plan: 1patient with infected pressure ulcer to the left heel area which was debrided on 01/14/2023 culture positive for MRSA Citrobacter Morganella and anaerobes and the patient did have Morganella bacteremia repeat blood culture negative, patient presented to hospital with acute renal insufficiency possibly drug-re lated which has been put on hold nephrology has been consulted 2-patient noticed to have a significant necrotic changes to the left heel area patient has been evaluated by vascular surgery, patient is status post surgical debridement on 02/01/2023 3-patient to continue with cefepime Flagyl and daptomycin while waiting for improvement in the kidney function Time with Patient: Less than 30
[2023-02-02] MEDS: APIXABAN 2.5 MG TABLET PO SCH ×2 (10:35→17:17)
[2023-02-02] MEDS: metroNIDAZOLE 500 MG TAB PO SCH ×3 (10:35→21:27)
[2023-02-02] MEDS: TAMSULOSIN 0.4 MG CAP.ER.24H PO SCH (10:36)
[2023-02-02] MEDS: AMIODARONE 200 MG TAB PO SCH ×2 (10:36→17:17)
[2023-02-02] MEDS: METOPROLOL SUCCINATE (ER) 25 MG TAB.ER.24H PO SCH (10:36)
[2023-02-02] MEDS: MULTIVITAMINS, THERA 1 EACH TAB PO SCH (10:36)
[2023-02-02] MEDS: LACTULOSE 20 GM/30 ML CUP PO SCH (10:36)
[2023-02-02] MEDS: ASPIRIN 81 MG PO SCH (10:36)
[2023-02-02] MEDS: FOLIC ACID 1 MG TAB PO SCH (10:36)
[2023-02-02] MEDS: CEFEPIME 1 GM in SODIUM CHLORIDE 0.9% 50 ML IVPB SCH ×2 (10:37→21:27)
[2023-02-02] MEDS: SODIUM CHLORIDE 0.9% 1,000 ML IV SCH ×2 (10:45→21:27)
[2023-02-02] MEDS: COLLAGENASE 250 UNIT/GM OINTMENT 30 GM TUBE TOPICAL SCH (10:46)
--- NOTE | 2023-02-02 11:52 | P.PN ---
Subjective Progress Note Date: 02/02/23 Pt has no new complaints today. Kidney function is slowly improving. Gen: awake, alert HEENT: normocephalic, atraumatic, good hearing acuity, moist mucous membranes Resp: good air exchange, breathing comfortably with no accessory muscle use CVS: good distal perfusion x 4, GI: soft, NTTP, ND : no SPT, no CVAT, mason catheter not present MSK: no pitting edema, no clubbing Neuro: non-focal, moving all extremities Psych: cooperative, euthymic mood Hospital course: Patient is a 87-year-old male with extensive past medical history including a recent hospital stay where he was discharged on 01/18 with an infected wound which was debrided on 01/15. He [facility]. He was sent back in for elevated creatinine. Random vancomycin level was 30 R Wood. Assessment: VALERI, suspect vancomycin-induced nephrotoxicity - Vancomycine random level at [facility] was 30 Poly microbial Left lower extremity necrotic ulcer with surrounding cellulitis Normocytic anemia Social stressor- on comfort measures in the ICU Chronic conditions: Perminent A. fib anticoagulated with Eliquis Hypertension Hyperlipidemia History of CVA with residual right sided deficits Plan: Today, patient is afebrile, 119/66, heart rate 56, 96% on room air CBC shows hemoglobin of 8.9 Basic metabolic panel shows sodium of 138, chloride of 109, bicarb of 18, BUN of 53, creatinine of 3.3 Order CBC, basic metabolic panel, magnesium for tomorrow Discussed case with nephrology, continue holding vancomycin, continue IV fluids Continue daptomycin 400 mg every 48 hours Continue cefepime along gram every 12 hours Appreciate nephrology consultation Continue normal saline at 75 mL per hour Patient is full code Objective - Vital Signs Vital signs: Vital Signs Temp 97.9 F 02/02/23 07:08 Pulse 88 02/02/23 08:50 Resp 16 02/02/23 08:50 BP 119/66 02/02/23 07:08 Pulse Ox 96 02/02/23 07:08 FiO2 Intake & Output 02/01/23 02/02/23 02/02/23 18:59 06:59 18:59 Intake Total 550 Output Total 500 600 Balance 50 -600 Weight 65.771 kg Intake: Oral 550 Output: Urine 500 600 Other: Voiding Method Indwelling Catheter Indwelling Catheter - Labs CBC & Chem 7: 02/02/23 06:38 02/02/23 06:38 Labs: Abnormal Lab Results - Last 24 Hours (Table) 02/02/23 02/02/23 Range/Units 06:38 06:38 RBC 3.31 L (4.30-5.90) m/uL Hgb 8.9 L (13.0-17.5) gm/dL Hct 30.0 L (39.0-53.0) % MCHC 29.6 L (31.0-37.0) g/dL RDW 18.2 H (11.5-15.5) % Lymphocytes # 0.9 L (1.0-4.8) k/uL Chloride 109 H (98-107) mmol/L Carbon Dioxide 18 L (22-30) mmol/L BUN 53 H (9-20) mg/dL Creatinine 3.30 H (0.66-1.25) mg/dL Calcium 8.1 L (8.4-10.2) mg/dL
[2023-02-02] MEDS: FERROUS SULFATE 325 MG TAB PO SCH (17:17)
[2023-02-02] MEDS: HYDROcodone/APAP 5-325MG 1 EACH TAB PO PRN (23:51)
[2023-02-03] MEDS: PANTOPRAZOLE 40 MG TABLET PO SCH (05:43)
[2023-02-03] MEDS: ALBUTEROL NEBULIZED 2.5 MG/3 ML INHALATION SCH ×3 (08:42→21:12)
[2023-02-03] MEDS: metroNIDAZOLE 500 MG TAB PO SCH ×3 (09:51→21:29)
[2023-02-03] MEDS: APIXABAN 2.5 MG TABLET PO SCH ×2 (09:51→16:32)
[2023-02-03] MEDS: LACTULOSE 20 GM/30 ML CUP PO SCH (09:51)
[2023-02-03] MEDS: ASPIRIN 81 MG PO SCH (09:52)
[2023-02-03] MEDS: TAMSULOSIN 0.4 MG CAP.ER.24H PO SCH (09:52)
[2023-02-03] MEDS: MULTIVITAMINS, THERA 1 EACH TAB PO SCH ×2 (09:52→09:53)
[2023-02-03] MEDS: AMIODARONE 200 MG TAB PO SCH ×2 (09:53→16:32)
[2023-02-03] MEDS: METOPROLOL SUCCINATE (ER) 25 MG TAB.ER.24H PO SCH (09:57)
[2023-02-03] MEDS: CEFEPIME 1 GM in SODIUM CHLORIDE 0.9% 50 ML IVPB SCH ×2 (09:58→21:29)
[2023-02-03] MEDS: COLLAGENASE 250 UNIT/GM OINTMENT 30 GM TUBE TOPICAL SCH (09:58)
--- NOTE | 2023-02-03 10:28 | P.PN ---
Subjective Progress Note Date: 02/03/23 Pt has no new complaints today. Kidney function is slowly improving. Gen: awake, alert HEENT: normocephalic, atraumatic, good hearing acuity, moist mucous membranes Resp: good air exchange, breathing comfortably with no accessory muscle use CVS: good distal perfusion x 4, GI: soft, NTTP, ND : no SPT, no CVAT, mason catheter not present MSK: no pitting edema, no clubbing Neuro: non-focal, moving all extremities Psych: cooperative, euthymic mood Hospital course: Patient is a 87-year-old male with extensive past medical history including a recent hospital stay where he was discharged on 01/18 with an infected wound which was debrided on 01/15. He has been receiving IV vancomycin at the shelter. He was sent back in for elevated creatinine. Random vancomycin level was 30 R Wood. Assessment: VALERI, suspect vancomycin-induced nephrotoxicity - Vancomycine random level at [facility] was 30 Poly microbial Left lower extremity necrotic ulcer with surrounding cellulitis Normocytic anemia Social stressor- on comfort measures in the ICU Chronic conditions: Perminent A. fib anticoagulated with Eliquis Hypertension Hyperlipidemia History of CVA with residual right sided deficits Plan: Today, patient is afebrile, 123/52, 64, 96% RA Gram stain from Foot OR Cx growing GNB Order CBC, basic metabolic panel, magnesium for tomorrow Continue daptomycin 400 mg every 48 hours Continue cefepime along gram every 12 hours Continue normal saline at 75 mL per hour Patient is full code Objective - Vital Signs Vital signs: Vital Signs Temp 97.3 F L 02/03/23 06:58 Pulse 64 02/03/23 06:58 Resp 17 02/03/23 06:58 BP 123/52 02/03/23 06:58 Pulse Ox 96 02/03/23 06:58 FiO2 Intake & Output 02/02/23 02/03/23 02/03/23 18:59 06:59 18:59 Intake Total 700 250 Output Total 700 750 Balance 0 -500 Intake: Intake, IV Titration 700 Amount Cefepime 1 gm In Sodium 50 Chloride 0.9% 50 ml @ 12. 5 mls/hr IVPB Q12HR KATHLEEN Rx#:[id number] DAPTOmycin 400 mg In 50 Sodium Chloride 0.9% 50 ml @ 100 mls/hr IVPB Q48H KATHLEEN Rx#:[id number] Sodium Chloride 0.9% 1, 600 000 ml @ 75 mls/hr IV . [id number] [facility] Rx#:[id number] Oral 250 Output: Urine 700 750 Uretheral (Mason) 750 Other: Voiding Method Indwelling Catheter Indwelling Catheter # Bowel Movements 1 - Labs CBC & Chem 7: 02/02/23 06:38 02/02/23 06:38 Labs: Microbiology - Last 24 Hours (Table) 02/01/23 12:40 Gram Stain - Preliminary Foot - Left Tissue Culture - Preliminary Gram Neg Bacilli 02/01/23 12:40 Gram Stain - Preliminary Buttock Tissue Culture - Preliminary
--- NOTE | 2023-02-03 10:33 | P.PN ---
Subjective Patient is seen in follow-up for acute kidney injury on chronic kidney disease. Renal function slightly improved. Creatinine 2.3 yesterday. Receiving IV fluids. Blood pressure stable. Nonoliguric. Denies vomiting or diarrhea. No active complaints. Vital signs are stable. General: No acute distress. HEENT: Head exam is unremarkable. LUNGS: No audible rhonchi or wheezes. HEART: Rate and Rhythm are regular. ABDOMEN: Nontender. No distention. EXTREMITITES: No edema. Left foot drop. No drainage noted. Objective - Vital Signs Vital signs: Vital Signs Temp 97.3 F L 02/03/23 06:58 Pulse 64 02/03/23 06:58 Resp 17 02/03/23 06:58 BP 123/52 02/03/23 06:58 Pulse Ox 96 02/03/23 06:58 FiO2 Intake & Output 02/02/23 02/03/23 02/03/23 18:59 06:59 18:59 Intake Total 700 250 Output Total 700 750 Balance 0 -500 Intake: Intake, IV Titration 700 Amount Cefepime 1 gm In Sodium 50 Chloride 0.9% 50 ml @ 12. 5 mls/hr IVPB Q12HR [facility] Rx#:[id number] DAPTOmycin 400 mg In 50 Sodium Chloride 0.9% 50 ml @ 100 mls/hr IVPB Q48H [facility]LE[facility] Rx#:[id number] Sodium Chloride 0.9% 1, 600 000 ml @ 75 mls/hr IV . [id number] [facility] Rx#:[id number] Oral 250 Output: Urine 700 750 Uretheral (Carranza) 750 Other: Voiding Method Indwelling Catheter Indwelling Catheter # Bowel Movements 1 - Labs CBC & Chem 7: 02/02/23 06:38 02/02/23 06:38 Labs: Microbiology - Last 24 Hours (Table) 02/01/23 12:40 Gram Stain - Preliminary Foot - Left Tissue Culture - Preliminary Gram Neg Bacilli 02/01/23 12:40 Gram Stain - Preliminary Buttock Tissue Culture - Preliminary Assessment and Plan Plan: Assessment: 1. Acute kidney injury secondary to ATN secondary to hypotension and vancomycin toxicity. Creatinine 3.59 on admission and is 3.3 yesterday. No hydronephrosis noted on kidney ultrasound. 2. Chronic kidney disease stage IIIA with baseline creatinine 1.2-1.3 secondary to nephrosclerosis. 3. Urinary retention. Has Carranza catheter. On Flomax. 4. Left kidney hypoechoic lesion. Imaging will need to be be repeated outpatient. 5. Left foot ulcer status post debridement on antibiotics. Vascular surgery and ID following. Vancomycin discontinued. Plan: Maintain IV fluids. Avoid nephrotoxins. Continue to monitor renal function and urine output. Follow-up morning labs.
[2023-02-03] MEDS: FOLIC ACID 1 MG TAB PO SCH (12:03)
[2023-02-03] MEDS: SODIUM CHLORIDE 0.9% 1,000 ML IV SCH (12:04)
[2023-02-03 12:18] LABS: Anisocytosis Slight; Basophils % (A) 0 %; Eosinophils # (A) 0.5 k/uL (0-0.7); Eosinophils % (A) 5 %; HCT 33.1 % (39.0-53.0); HGB 9.8 gm/dL (13.0-17.5); Hypochromasia Marked; Lymphocytes # (A) 0.9 k/uL (1.0-4.8); Lymphocytes % (A) 9 %; MCH 27.1 pg (25.0-35.0); MCHC 29.6 g/dL (31.0-37.0); MCV 91.7 fL (80.0-100.0); Mean Platelet Volume 9.5; Monocytes # (A) 0.5 k/uL (0-1.0); Monocytes % (A) 5 %; Neutrophils # (A) 7.1 k/uL (1.3-7.7); Neutrophils % (A) 79 %; Platelet Count 203 k/uL (150-450); RBC 3.61 m/uL (4.30-5.90); RDW 18.3 % (11.5-15.5)
[2023-02-03 12:35] LABS: African American GFR (CKD) 21 (>60 ml/min/1.73 sqM); Anion Gap 10 mmol/L; Blood Urea Nitrogen 46 mg/dL (9-20); Calcium 8.1 mg/dL (8.4-10.2); Carbon Dioxide 17 mmol/L (22-30); Chloride 113 mmol/L (98-107); Glucose 87 mg/dL (74-99); Non-African American GFR(CKD) 18 (>60 ml/min/1.73 sqM); Potassium 4.2 mmol/L (3.5-5.1); Sodium 140 mmol/L (137-145)
--- NOTE | 2023-02-03 15:39 | P.PN ---
Subjective Progress Note Date: 02/03/23 Principal diagnosis: Left heel infected pressure ulcer Patient is 87 year old male with multiple comorbidities patient was recently admitted to the hospital and did have evidence of Morganella bacteremia patient also noticed to have a unstageable pressure ulcer to the left gluteal area status post surgical debridement on 01/14/2023 culture positive for Morganella Citrobacter as well as MRSA, patient was getting [facility] now admitted to the hospital with renal failure secondary to vancomycin, patient did have a bedside debridement of the left heel wound by vascular surgery on 02/01/2023 On today's evaluation that is 02/03/2023, the patient remains to be afebrile, the patient denies any worsening pain to the left foot, the patient denies chest pain shortness of breath or cough no abdominal pain or diarrhea Objective - Vital Signs Vital signs: Vital Signs Temp 97.3 F L 02/03/23 06:58 Pulse 84 02/03/23 11:57 Resp 17 02/03/23 06:58 BP 123/52 02/03/23 06:58 Pulse Ox 96 02/03/23 06:58 FiO2 Intake & Output 02/02/23 02/03/23 02/03/23 18:59 06:59 18:59 Intake Total 700 250 120 Output Total 700 750 200 Balance 0 -500 -80 Intake: Intake, IV Titration 700 Amount Cefepime 1 gm In Sodium 50 Chloride 0.9% 50 ml @ 12. 5 mls/hr IVPB Q12HR [facility] Rx#:[id number] DAPTOmycin 400 mg In 50 Sodium Chloride 0.9% 50 ml @ 100 mls/hr IVPB Q48H K[facility]LE[facility] Rx#:[id number] Sodium Chloride 0.9% 1, 600 000 ml @ 75 mls/hr IV . [id number] [facility] Rx#:[id number] Oral 250 120 Output: Urine 700 750 200 Uretheral (Carranza) 750 200 Other: Voiding Method Indwelling Catheter Indwelling Catheter Indwelling Catheter # Bowel Movements 1 - Exam GENERAL DESCRIPTION: An elderly male lying in bed in no distress RESPIRATORY SYSTEM: Unlabored breathing , decreased breath sounds at bases HEART: S1 S2 regular rate and rhythm , ABDOMEN: Soft , no tenderness EXTREMITIES: Bilateral feet wounds are Currently dressed - Labs CBC & Chem 7: 02/03/23 10:44 02/03/23 10:44 Labs: Abnormal Lab Results - Last 24 Hours (Table) 02/03/23 02/03/23 Range/Units 10:44 10:44 RBC 3.61 L (4.30-5.90) m/uL Hgb 9.8 L (13.0-17.5) gm/dL Hct 33.1 L (39.0-53.0) % MCHC 29.6 L (31.0-37.0) g/dL RDW 18.3 H (11.5-15.5) % Lymphocytes # 0.9 L (1.0-4.8) k/uL Chloride 113 H (98-107) mmol/L Carbon Dioxide 17 L (22-30) mmol/L BUN 46 H (9-20) mg/dL Creatinine 3.02 H (0.66-1.25) mg/dL Calcium 8.1 L (8.4-10.2) mg/dL Microbiology - Last 24 Hours (Table) 02/01/23 12:40 Gram Stain - Preliminary Foot - Left Tissue Culture - Preliminary Gram Neg Bacilli 02/01/23 12:40 Gram Stain - Preliminary Buttock Tissue Culture - Preliminary Assessment and Plan (1) Pressure ulcer of left foot, unstageable Current Visit: Yes Status: Acute Code(s): L89.890 - PRESSURE ULCER OF OTHER SITE, UNSTAGEABLE SNOMED Code(s): 420343005 Plan: 1patient with infected pressure ulcer to the left heel area which was debrided on 01/14/2023 culture positive for MRSA Citrobacter Morganella and anaerobes and the patient did have Morganella bacteremia repeat blood culture negative, p atient presented to hospital with acute renal insufficiency possibly drug- related which has been put on hold nephrology has been consulted 2-patient noticed to have a significant necrotic changes to the left heel area patient has been evaluated by vascular surgery, patient is status post surgical debridement on 02/01/2023, cultures currently growing gram-negative 3-patient to continue with cefepime Flagyl and daptomycin and monitor clinical course closely Time with Patient: Less than 30
[2023-02-03] MEDS: DEXTROSE 5% IN WATER 1,000 ML with SODIUM BICARB (1 MEQ/ML) 150 ML IV SCH (16:32)
[2023-02-03] MEDS: FERROUS SULFATE 325 MG TAB PO SCH (16:33)
[2023-02-04 04:23] LABS: Anisocytosis Slight; Basophils % (A) 0 %; Eosinophils # (A) 0.5 k/uL (0-0.7); Eosinophils % (A) 5 %; HCT 31.1 % (39.0-53.0); HGB 9.5 gm/dL (13.0-17.5); Hypochromasia Marked; Lymphocytes # (A) 1.3 k/uL (1.0-4.8); Lymphocytes % (A) 13 %; MCH 27.3 pg (25.0-35.0); MCHC 30.4 g/dL (31.0-37.0); MCV 89.9 fL (80.0-100.0); Mean Platelet Volume 9.7; Monocytes # (A) 0.5 k/uL (0-1.0); Monocytes % (A) 5 %; Neutrophils # (A) 7.3 k/uL (1.3-7.7); Neutrophils % (A) 75 %; Platelet Count 210 k/uL (150-450); RBC 3.46 m/uL (4.30-5.90); RDW 18.3 % (11.5-15.5); WBC 9.7 k/uL (3.8-10.6)
[2023-02-04 04:27] LABS: African American GFR (CKD) 22 (>60 ml/min/1.73 sqM); Anion Gap 7 mmol/L; Blood Urea Nitrogen 43 mg/dL (9-20); Calcium 8.1 mg/dL (8.4-10.2); Carbon Dioxide 19 mmol/L (22-30); Chloride 112 mmol/L (98-107); Glucose 94 mg/dL (74-99); Magnesium 1.9 mg/dL (1.6-2.3); Non-African American GFR(CKD) 19 (>60 ml/min/1.73 sqM); Sodium 138 mmol/L (137-145)
[2023-02-04] MEDS: PANTOPRAZOLE 40 MG TABLET PO SCH (05:38)
[2023-02-04] MEDS: DEXTROSE 5% IN WATER 1,000 ML with SODIUM BICARB (1 MEQ/ML) 150 ML IV SCH ×2 (05:39→21:22)
[2023-02-04] MEDS: AMIODARONE 200 MG TAB PO SCH ×2 (09:19→16:48)
[2023-02-04] MEDS: APIXABAN 2.5 MG TABLET PO SCH ×2 (09:19→16:48)
[2023-02-04] MEDS: TAMSULOSIN 0.4 MG CAP.ER.24H PO SCH (09:19)
[2023-02-04] MEDS: METOPROLOL SUCCINATE (ER) 25 MG TAB.ER.24H PO SCH (09:19)
[2023-02-04] MEDS: MULTIVITAMINS, THERA 1 EACH TAB PO SCH (09:19)
[2023-02-04] MEDS: metroNIDAZOLE 500 MG TAB PO SCH ×3 (09:19→20:55)
[2023-02-04] MEDS: CEFEPIME 1 GM in SODIUM CHLORIDE 0.9% 50 ML IVPB SCH ×2 (09:20→20:54)
[2023-02-04] MEDS: LACTULOSE 20 GM/30 ML CUP PO SCH (09:20)
[2023-02-04] MEDS: COLLAGENASE 250 UNIT/GM OINTMENT 30 GM TUBE TOPICAL SCH (09:21)
[2023-02-04] MEDS: ALBUTEROL NEBULIZED 2.5 MG/3 ML INHALATION SCH ×3 (09:58→21:25)
[2023-02-04] MEDS: FOLIC ACID 1 MG TAB PO SCH (12:13)
[2023-02-04] MEDS: ASPIRIN 81 MG PO SCH (12:13)
--- NOTE | 2023-02-04 12:32 | P.PN ---
Subjective Patient is seen in follow-up for acute kidney injury on chronic kidney disease. Renal function slowly improving. Creatinine 2.9 today. Receiving IV fluids. Blood pressure stable. Nonoliguric. Denies vomiting or diarrhea. No active complaints. Vital signs are stable. General: No acute distress. HEENT: Head exam is unremarkable. LUNGS: No audible rhonchi or wheezes. HEART: Rate and Rhythm are regular. ABDOMEN: Nontender. No distention. EXTREMITITES: No edema. Left foot wrapped. No drainage noted. Objective - Vital Signs Vital signs: Vital Signs Temp 99.9 F H 02/04/23 07:14 Pulse 78 02/04/23 10:09 Resp 17 02/04/23 08:00 BP 133/66 02/04/23 07:14 Pulse Ox 94 L 02/04/23 07:14 FiO2 Intake & Output 02/03/23 02/04/23 02/04/23 18:59 06:59 18:59 Intake Total 880 Output Total 700 710 100 Balance 180 -710 -100 Intake: Intake, IV Titration 750 Amount Cefepime 1 gm In Sodium 600 Chloride 0.9% 50 ml @ 12. 5 mls/hr IVPB Q12HR [facility] Rx#:[id number] Dextrose 5% in Water 1, 150 000 ml @ 75 mls/hr IV . [id number] KATHLEEN with Sodium Bicarb (1 Meq/ml) 150 ml Rx#:[id number] Oral 130 Output: Urine 700 610 Uretheral (Carranza) 200 Stool 100 100 Other: Voiding Method Indwelling Catheter Indwelling Catheter Indwelling Catheter - Labs CBC & Chem 7: 02/04/23 03:38 02/04/23 03:38 Labs: Abnormal Lab Results - Last 24 Hours (Table) 02/03/23 02/04/23 02/04/23 Range/Units 10:44 03:38 03:38 RBC 3.46 L (4.30-5.90) m/uL Hgb 9.5 L (13.0-17.5) gm/dL Hct 31.1 L (39.0-53.0) % MCHC 30.4 L (31.0-37.0) g/dL RDW 18.3 H (11.5-15.5) % Chloride 113 H 112 H (98-107) mmol/L Carbon Dioxide 17 L 19 L (22-30) mmol/L BUN 46 H 43 H (9-20) mg/dL Creatinine 3.02 H 2.90 H (0.66-1.25) mg/dL Calcium 8.1 L 8.1 L (8.4-10.2) mg/dL Microbiology - Last 24 Hours (Table) 02/01/23 12:40 Gram Stain - Preliminary Buttock Tissue Culture - Preliminary 02/01/23 12:40 Gram Stain - Preliminary Foot - Left Tissue Culture - Preliminary Gram Neg Bacilli Group D Enterococcus Presumptive MRSA 02/01/23 12:40 Anaerobic Culture - Preliminary Buttock 02/01/23 12:40 Anaerobic Culture - Preliminary Foot - Left Assessment and Plan Plan: Assessment: 1. Acute kidney injury secondary to ATN secondary to hypotension and vancomycin toxicity. Creatinine 3.59 on admission and is 2.9 today. No hydronephrosis noted on kidney ultrasound. 2. Chronic kidney disease stage IIIA with baseline creatinine 1.2-1.3 secondary to nephrosclerosis. 3. Urinary retention. Has Carranza catheter. On Flomax. 4. Left kidney hypoechoic lesion. Imaging will need to be be repeated outpatient. 5. Left foot ulcer status post debridement on antibiotics. Vascular surgery and ID following. Vancomycin discontinued. 6. Metabolic acidosis secondary to acute kidney injury and IV fluids maintained on IV bicarbonate. Improving. Plan: Maintain IV fluids. Avoid nephrotoxins. Continue to monitor renal function and urine output.
--- NOTE | 2023-02-04 14:36 | P.PN ---
Subjective Progress Note Date: 02/04/23 Patient is a 87-year-old male with extensive past medical history including a recent hospital stay where he was discharged on 01/18 with an infected wound which was debrided on 01/15. He has been receiving IV vancomycin at the correction. He was sent back in for elevated creatinine. Random vancomycin level was 30 at [facility]. He was admitted and nephrology, infectious disease, and vascular surgery were consulted. His vancomycin was discontinued and he was started on IV fluids. Infectious disease recommended continuing his outpatient cefepime, Flagyl, and transitioning to daptomycin. On 02/01/23 he underwent debridement of left heel wounds. He continued to do well and progressed with lowering of his creatinine. Imaging: Renal ultrasound: 5 mm right renal calculus nonobstructing, 9 mm hypoechoic structure left kidney too small to characterize Patient seen and examined at bedside. He denies any chest pain, shortness breath, nausea, vomiting, diarrhea. He does want to go back to rehab on discharge. Vital signs reviewed General: nontoxic, no distress, appears at stated age Cardiovascular: S1S2 reg, no murmur, positive posterior tibial pulse bilateral, Lungs: CTA bilateral, no rhonchi, no rales , no accessory muscle use Abdominal: soft, nontender to palpation, no guarding, no appreciable organomegaly Ext: no gross muscle atrophy, trace edema b/l lower extremities, no contractures, dressing inplace over left heal. Neuro: CN II-XI grossly intact, no focal neuro deficits Psych: Alert, oriented to self and situation, blunted affect Assessment:/Plan VALERI, vancomycin-induced - Vancomycin random level at [facility] was 30 -Case discussed with Dr. Morocho. We'll continue on sodium bicarb infusion, recheck creatinine in a.m., anticipate patient will have good renal recovery over time. 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 Love on 02/01/23 - Await cultures to finalize -Case discussed with Dr. Olivares. Plan will be for discharge with daptomycin, cefepime, and Flagyl Normocytic anemia -CBC stable. Repeat in one week. - Has tunneled cath right IJ placed by Dr. Love, will need removed after completion of antibiotics. Left reanl lesion - to small to characterize - repeat US in 3-6 months Social stressor- recently Chronic conditions: Perminent Tashia harris anticoagulated with Eliquis Hypertension Hyperlipidemia History of CVA with residual right sided deficits Imaging: None New Data Review: Tmax in the Last 24 hours 99.9, heart rate 53, respirations 17, blood pressure 133/66, O2 sat 94% on room air DVT prophylaxis: Eliquis Discussed with: patient, nursing Anticipated discharge date: in 24-[address]: return to [facility] This dictation was prepared using [employer] voice recognition software. Though every attempt is made to correct errors during dictation some may still exist. Objective - Vital Signs Vital signs: Vital Signs Temp 98.8 F 02/04/23 14:00 Pulse 62 02/04/23 14:00 Resp 18 02/04/23 14:00 BP 115/57 02/04/23 14:00 Pulse Ox 97 02/04/23 14:00 FiO2 Intake & Output 02/03/23 02/04/23 02/04/23 18:59 06:59 18:59 Intake Total 880 Output Total 700 710 100 Balance 180 -710 -100 Intake: Intake, IV Titration 750 Amount Cefepime 1 gm In Sodium 600 Chloride 0.9% 50 ml @ 12. 5 mls/hr IVPB Q12HR KATHLEEN Rx#:[id number] Dextrose 5% in Water 1, 150 000 ml @ 75 mls/hr IV . [id number] KATHLEEN with Sodium Bicarb (1 Meq/ml) 150 ml Rx#:[id number] Oral 130 Output: Urine 700 610 Uretheral ([place]) 200 Stool 100 100 Other: Voiding Method Indwelling Catheter Indwelling Catheter Indwelling Catheter - Labs CBC & Chem 7: 02/04/23 03:38 02/04/23 03:38 Labs: Abnormal Lab Results - Last 24 Hours (Table) 02/04/23 02/04/23 Range/Units 03:38 03:38 RBC 3.46 L (4.30-5.90) m/uL Hgb 9.5 L (13.0-17.5) gm/dL Hct 31.1 L (39.0-53.0) % MCHC 30.4 L (31.0-37.0) g/dL RDW 18.3 H (11.5-15.5) % Chloride 112 H (98-107) mmol/L Carbon Dioxide 19 L (22-30) mmol/L BUN 43 H (9-20) mg/dL Creatinine 2.90 H (0.66-1.25) mg/dL Calcium 8.1 L (8.4-10.2) mg/dL Microbiology - Last 24 Hours (Table) 02/01/23 12:40 Gram Stain - Preliminary Buttock Tissue Culture - Preliminary Klebsiella pneumoniae Group D Enterococcus Presumptive MRSA Gogo albicans 02/01/23 12:40 Gram Stain - Preliminary Foot - Left Tissue Culture - Preliminary Gram Neg Bacilli Group D Enterococcus Presumptive MRSA 02/01/23 12:40 Anaerobic Culture - Preliminary Buttock 02/01/23 12:40 Anaerobic Culture - Preliminary Foot - Left
--- NOTE | 2023-02-04 16:23 | P.PN ---
Progress Note - Text 87-year-old gentleman has a wound on the left heel and lateral aspect of the foot we've been treating with local wound care and IV antibiotic today we have changed the dressing base of the wound is granulating patient is an IV under care of infectious disease we've been using Santyl cream dressing should be changed daily if patient goes home patient will come to the wound clinic follow- up with me on Saturday
[2023-02-04] MEDS: FERROUS SULFATE 325 MG TAB PO SCH (16:48)
[2023-02-04] MEDS: HYDROcodone/APAP 5-325MG 1 EACH TAB PO PRN ×2 (16:48→23:18)
[2023-02-05] MEDS: PANTOPRAZOLE 40 MG TABLET PO SCH (05:42)
[2023-02-05 05:54] LABS: African American GFR (CKD) 25 (>60 ml/min/1.73 sqM); Anion Gap 6 mmol/L; Blood Urea Nitrogen 39 mg/dL (9-20); Calcium 7.9 mg/dL (8.4-10.2); Carbon Dioxide 22 mmol/L (22-30); Chloride 110 mmol/L (98-107); Glucose 100 mg/dL (74-99); Non-African American GFR(CKD) 22 (>60 ml/min/1.73 sqM); Potassium 3.8 mmol/L (3.5-5.1); Sodium 138 mmol/L (137-145)
[2023-02-05 07:56] VITALS: RESP 16
[2023-02-05] MEDS: ALBUTEROL NEBULIZED 2.5 MG/3 ML INHALATION SCH ×2 (09:09→12:21)
[2023-02-05] MEDS: LACTULOSE 20 GM/30 ML CUP PO SCH (09:22)
[2023-02-05] MEDS: CEFEPIME 1 GM in SODIUM CHLORIDE 0.9% 50 ML IVPB SCH (09:22)
[2023-02-05] MEDS: TAMSULOSIN 0.4 MG CAP.ER.24H PO SCH (09:23)
[2023-02-05] MEDS: METOPROLOL SUCCINATE (ER) 25 MG TAB.ER.24H PO SCH (09:23)
[2023-02-05] MEDS: metroNIDAZOLE 500 MG TAB PO SCH (09:23)
[2023-02-05] MEDS: APIXABAN 2.5 MG TABLET PO SCH (09:23)
[2023-02-05] MEDS: AMIODARONE 200 MG TAB PO SCH (09:23)
[2023-02-05] MEDS: HYDROcodone/APAP 5-325MG 1 EACH TAB PO PRN (09:24)
--- NOTE | 2023-02-05 10:20 | P.PN ---
Subjective Patient is seen in follow-up for acute kidney injury on chronic kidney disease. Renal function slowly improving. Creatinine 2.55 today. Acidosis improving with bicarbonate drip. Blood pressure stable. Nonoliguric. Denies vomiting or diarrhea. No active complaints. Vital signs are stable. General: No acute distress. HEENT: Head exam is unremarkable. LUNGS: No audible rhonchi or wheezes. HEART: Rate and Rhythm are regular. ABDOMEN: Nontender. No distention. EXTREMITITES: No edema. Left foot wrapped. No drainage noted. Objective - Vital Signs Vital signs: Vital Signs Temp 99.3 F 02/05/23 07:20 Pulse 66 02/05/23 09:22 Resp 16 02/05/23 07:20 BP 128/64 02/05/23 07:20 Pulse Ox 99 02/05/23 07:20 FiO2 Intake & Output 02/04/23 02/05/23 02/05/23 18:59 06:59 18:59 Output Total 900 450 Balance -900 -450 Output: Urine 400 400 Stool 500 50 Other: Voiding Method Indwelling Catheter Indwelling Catheter - Labs CBC & Chem 7: 02/04/23 03:38 02/05/23 04:47 Labs: Abnormal Lab Results - Last 24 Hours (Table) 02/05/23 Range/Units 04:47 Chloride 110 H (98-107) mmol/L BUN 39 H (9-20) mg/dL Creatinine 2.55 H (0.66-1.25) mg/dL Glucose 100 H (74-99) mg/dL Calcium 7.9 L (8.4-10.2) mg/dL Microbiology - Last 24 Hours (Table) 02/01/23 12:40 Gram Stain - Preliminary Buttock Tissue Culture - Preliminary Klebsiella pneumoniae Group D Enterococcus Presumptive MRSA Gogo albicans 02/01/23 12:40 Gram Stain - Preliminary Foot - Left Tissue Culture - Preliminary Gram Neg Bacilli Group D Enterococcus Presumptive MRSA 02/01/23 12:40 Anaerobic Culture - Preliminary Buttock 02/01/23 12:40 Anaerobic Culture - Preliminary Foot - Left Assessment and Plan Plan: Assessment: 1. Acute kidney injury secondary to ATN secondary to hypotension and vancomycin toxicity. Creatinine 3.59 on admission and is 2.55 today. No hydronephrosis noted on kidney ultrasound. 2. Chronic kidney disease stage IIIA with baseline creatinine 1.2-1.3 secondary to nephrosclerosis. 3. Urinary retention. Has Carranza catheter. On Flomax. 4. Left kidney hypoechoic lesion. Imaging will need to be be repeated outpatient. 5. Left foot ulcer status post debridement on antibiotics. Vascular surgery and ID following. Vancomycin discontinued. 6. Metabolic acidosis secondary to acute kidney injury and IV fluids maintained on IV bicarbonate. Improving. Plan: Hep-Lock IV fluids. Encourage oral intake. Avoid nephrotoxins. Continue to monitor renal function and urine output. Possible discharge to rehab today. Follow-up outpatient in 1 week post discharge.
--- NOTE | 2023-02-05 12:08 | P.DS ---
Providers Date of admission: 01/30/23 18:42 Expected date of discharge: 02/05/23 Attending physician: Sofi Bynum DO Consults: 01/30/23 17:49 Consult Physician Routine Consulting Provider: Toney Olivares Consult Reason/Comments: chronic ulcers left foot, sacrum Do you want consulting provider notified?: Yes, Notify in am 01/31/23 03:50 Consult Physician Urgent Consulting Provider: Nalini Ruiz Consult Reason/Comments: VALERI Do you want consulting provider notified?: Yes 01/31/23 13:07 Consult Physician Routine Consulting Provider: Sid Love Consult Reason/Comments: left heel wound , need for debridemnt Do you want consulting provider notified?: Yes Primary care physician: Josh Mcallister Hospital Course: Discharge Diagnosis: VALERI, vancomycin-induced 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 He has been receiving IV vancomycin at the [facility]. He was sent back in for elevated creatinine. Random vancomycin level was 30 at [facility]. He was admitted and nephrology, infectious disease, and vascular surgery were consulted. His vancomycin was discontinued and he was started on IV fluids. Infectious disease recommended continuing his outpatient cefepime, Flagyl, and transitioning to daptomycin. On 02/01/23 he underwent debridement of left heel wounds. He continued to do well and progressed with lowering of his creatinine. His renal function decreased to 2.5 and he is determined stable for discharge. Follow-up: Dr. Olivares next week, Dr Love on 02/08, PCP at [facility]. Has tunneled cath right IJ placed by Dr. Love, will need removed after completion of antibiotics. His antibiotics will complete on March 01. Repeat BMP in 3 days DX: VALERI, if Cr remains greater than 1.5 should follow-up with Dr. Bailee ryan daily and cover with Layne Patient seen and examined at bedside. He has no complaints today. He was seen when his brother was on the phone. All questions were answered. Vital signs reviewed and stable. General: nontoxic, no distress, appears at stated age Cardiovascular: no edema, positive posterior tibial pulse bilateral, Lungs: chest rise equal, no accessory muscle use] Ext: no gross muscle atrophy, no edema b/l lower extremities, no contractures Neuro: CN II-XI grossly intact, no focal neuro deficits Psych: Alert, oriented, appropriate affect A total of 45 minutes of time were spent preparing this complex discharge summary. Patient was discharged on 02/05/23. This dictation was prepared using [employer] voice recognition software. Though every attempt is made to correct errors during dictation some may still exist. Plan - Discharge Summary New Discharge Prescriptions: New DAPTOmycin [Cubicin] 400 mg IVPB Q48H each Collagenase [Santyl Ointment] 1 applic TOPICAL DAILY each Continue Tamsulosin HCl [Flomax] 0.4 mg PO DAILY@0800 Pantoprazole Sodium [Protonix] 40 mg PO DAILY@0600 Albuterol Inhaler [Ventolin Hfa Inhaler] 2 puff INHALATION RT-Q6H bisacodyL [Dulcolax] 10 mg RECTAL DAILY PRN PRN Reason: Constipation Ensure Enlive 237 ml PO TID@0800,1200,1700 Apixaban [Eliquis] 2.5 mg PO BID@0800,1700 Eucerin Advanced Repair Cream 1 applic TOPICAL DAILY Aspirin 81 mg PO DAILY@1200 HYDROcodone/APAP 5-325MG [[place] 5-325] 1 tab PO Q6HR PRN 3 Days #12 tab PRN Reason: Pain Folic Acid 1 mg PO DAILY@1200 tab polyethylene glycoL 3350 [Miralax] 17 gm PO DAILY@0800 Multivitamins, Thera [Multivitamin (formulary)] 1 tab PO DAILY@1200 Metoprolol Succinate (ER) [Toprol XL] 12.5 mg PO DAILY@0800 Lactulose 30 gm PO DAILY@0800 Na Phos,M-B/Na Phos,Di-Ba [Fleet Adult] 133 ml RECTAL DAILY PRN PRN Reason: Constipation Eucerin Advanced Repair Cream 1 applic TOPICAL DAILY PRN PRN Reason: Dry Skin Amiodarone [Cordarone] 200 mg PO BID@0800,1700 Thiamine [Vitamin B-1] 100 mg PO BID@0800,1700 Ferrous Sulfate [Iron (65 MG Elemental)] 325 mg PO DAILY@1700 metroNIDAZOLE [Flagyl] 500 mg PO TID #90 tab Cefepime [Maxipime] 2 gm IVPB Q12H #84 each Discontinued Spironolactone [Aldactone] 25 mg PO DAILY@0800 Dapagliflozin Propanediol [Farxiga] 10 mg PO DAILY@0800 Magnesium Hydroxide [Milk of Magnesia Concentrate] 7,200 mg PO Q48H PRN PRN Reason: Constipation Furosemide [Lasix] 20 mg PO BID@0800,1700 Vancomycin/Water For Inj (Peg) [Vancomycin 750 mg/150 ml Bag] 1,250 mg IV DAILY #42 each Discharge Medication List Tamsulosin HCl [Flomax] 0.4 mg PO DAILY@0800 02/14/18 [History] Pantoprazole Sodium [Protonix] 40 mg PO DAILY@0600 10/20/22 [History] Albuterol Inhaler [Ventolin Hfa Inhaler] 2 puff INHALATION RT-Q6H 10/28/22 [History] Apixaban [Eliquis] 2.5 mg PO BID@0800,1700 10/28/22 [History] Aspirin 81 mg PO DAILY@1200 10/28/22 [History] Ensure Enlive 237 ml PO TID@0800,1200,1700 10/28/22 [History] Eucerin Advanced Repair Cream 1 applic TOPICAL DAILY 10/28/22 [History] Eucerin Advanced Repair Cream 1 applic TOPICAL DAILY PRN 10/28/22 [History] Na Phos,M-B/Na Phos,Di-Ba [Fleet Adult] 133 ml RECTAL DAILY PRN 10/28/22 [History] bisacodyL [Dulcolax] 10 mg RECTAL DAILY PRN 10/28/22 [History] Amiodarone [Cordarone] 200 mg PO BID@0800,1700 12/14/22 [History] Folic Acid 1 mg PO DAILY@1200 tab 12/25/22 [Rx] HYDROcodone/APAP 5-325MG [[place] 5-325] 1 tab PO Q6HR PRN 3 Days #12 tab 12/25/22 [Rx] Ferrous Sulfate [Iron (65 MG Elemental)] 325 mg PO DAILY@1700 01/09/23 [History] Lactulose 30 gm PO DAILY@0800 01/09/23 [History] Metoprolol Succinate (ER) [Toprol XL] 12.5 mg PO DAILY@0800 01/09/23 [History] Multivitamins, Thera [Multivitamin (formulary)] 1 tab PO DAILY@1200 01/09/23 [History] Thiamine [Vitamin B-1] 100 mg PO BID@0800,1700 01/09/23 [History] polyethylene glycoL 3350 [Miralax] 17 gm PO DAILY@0800 01/09/23 [History] Cefepime [Maxipime] 2 gm IVPB Q12H #84 each 01/18/23 [Rx] metroNIDAZOLE [Flagyl] 500 mg PO TID #90 tab 01/18/23 [Rx] Collagenase [Santyl Ointment] 1 applic TOPICAL DAILY each 02/05/23 [Rx] DAPTOmycin [Cubicin] 400 mg IVPB Q48H each 02/05/23 [Rx] Follow up Appointment(s)/Referral(s): Nick Pandey, [NON-STAFF] - As Needed Sid Love MD [STAFF PHYSICIAN] - 1 Week (Please call for appointment on 02/11) Toney Olivares MD [STAFF PHYSICIAN] - 2 Weeks Activity/Diet/Wound Care/Special Instructions: Activity: Non weight bearing to left heal Fall precuations Diet: heart health diet Wound Care: santyl daily and cover with Kerlex Special Instructions: Has tunneled cath right IJ placed by Dr. Love, will need removed after completion of antibiotics. His antibiotics will complete on March 01. Repeat BMP in 3 days DX: VALERI, if Cr remains greater than 1.5 should follow-up with Dr. Morocho Discharge Disposition: TRANSFER TO SNF/ECF
[2023-02-05] MEDS: FOLIC ACID 1 MG TAB PO SCH (12:17)
[2023-02-05] MEDS: ASPIRIN 81 MG PO SCH (12:17)
[2023-02-05] MEDS: MULTIVITAMINS, THERA 1 EACH TAB PO SCH (12:18)
[2023-02-05 13:46] VITALS: BP 126/64; PULSE 66; TEMP 99.2
--- NOTE | 2023-02-07 13:12 | CDI ---
Documentation Clarification Form Date: 02/07/23 From: Erna Suazo Admit Date: 01/30/2023 06:42:00 PM Patient Name: Justo Bright Visit Number: [id number] Discharge Date: 02/05/2023 01:59:00 PM ATTENTION: The Clinical Documentation Specialists (CDI) and [facility] Coding Staff appreciate your assistance in clarifying documentation. Please respond to the clarification below the line at the bottom and electronically sign. The CDI & [facility] Coding staff will review the response and follow-up if needed. Please note: Queries are made part of the Legal Health Record. If you have any questions, please contact the author of this message via ITS. Dr. Sid Love, A debridement is documented on the right gluteal wound, cluster tissue which asexcisedwith sharp knife thiswoundis almost down to the bone on the tibiatesttissue was excisedwith sharp knife. Additional clarification regarding the procedure is requested. History/Risk Factors: Pressure ulcers, HTN with CKD IIIa, ATN, cellulitis of left foot, T2DM w CKD, PAF Clinical Indicators: Right gluteal wound, cluster tissue which asexcisedwith sharp knife thiswoundis almost down to the bone on the tibiatesttissue was excisedwith sharp knife. Treatment: Excisional debridement, open right gluteal wound Please clarify the type of procedure performed: [ ] Bone site of gluteal wound (pelvic, tibia etc) [ ] Other; please specify [ ] Unable to determine Five elements required for accurate and compliant documentation of a debridement: Technique used (e.g., excisional, excised, cutting, brushing, jet lavage etc.) Instrument(s) used (e.g., scalpel, curette, etc.) Nature of the tissue removed (e.g., necrotic, devitalized tissues, non-viable tissue, etc.) Appearance and size of the wound (e.g., down to fresh bleeding tissue, 7cm x 10cm, etc.) Depth of the debridement* (e.g., skin, subcutaneous tissue, fascia, muscle, bone, etc.) MTDD
--- NOTE | 2023-02-13 15:15 | P.PN ---
Subjective Progress Note Date: 02/04/23 Principal diagnosis: Left heel infected pressure ulcer Patient is 87 year old male with multiple comorbidities patient was recently admitted to the hospital and did have evidence of Morganella bacteremia patient also noticed to have a unstageable pressure ulcer to the left gluteal area status post surgical debridement on 01/14/2023 culture positive for Morganella Citrobacter as well as MRSA, patient was getting [facility]com[facility] and [facility] now admitted to the hospital with renal failure secondary to vancomycin, patient did have a bedside debridement of the left heel wound by vascular surgery on 02/01/2023 On today's evaluation that is 02/04/2023, the patient continues to be afebrile, the patient pain to the left foot area is currently controlled, the patient denies chest pain shortness of breath or cough no abdominal pain or diarrhea Objective - Vital Signs Vital signs: Vital Signs Temp 99.9 F H 02/04/23 07:14 Pulse 78 02/04/23 10:09 Resp 17 02/04/23 08:00 BP 133/66 02/04/23 07:14 Pulse Ox 94 L 02/04/23 07:14 FiO2 Intake & Output 02/03/23 02/04/23 02/04/23 18:59 06:59 18:59 Intake Total 880 Output Total 700 710 100 Balance 180 -710 -100 Intake: Intake, IV Titration 750 Amount Cefepime 1 gm In Sodium 600 Chloride 0.9% 50 ml @ 12. 5 mls/hr IVPB Q12HR [facility] Rx#:[id number] Dextrose 5% in Water 1, 150 000 ml @ 75 mls/hr IV . [id number] [facility] with Sodium Bicarb (1 Meq/ml) 150 ml Rx#:[id number] Oral 130 Output: Urine 700 610 Uretheral (Carranza) 200 Stool 100 100 Other: Voiding Method Indwelling Catheter Indwelling Catheter Indwelling Catheter - Exam GENERAL DESCRIPTION: An elderly male lying in bed in no distress RESPIRATORY SYSTEM: Unlabored breathing , decreased breath sounds at bases HEART: S1 S2 regular rate and rhythm , ABDOMEN: Soft , no tenderness EXTREMITIES: Bilateral feet wounds are Currently dressed - Labs CBC & Chem 7: 02/04/23 03:38 02/05/23 04:47 Labs: Abnormal Lab Results - Last 24 Hours (Table) 02/03/23 02/03/2302/04/23 Range/Units 10:44 10:44 03:38 RBC 3.61 L (4.30-5.90) m/uL Hgb 9.8 L (13.0-17.5) gm/dL Hct 33.1 L (39.0-53.0) % MCHC 29.6 L (31.0-37.0) g/dL RDW 18.3 H (11.5-15.5) % Lymphocytes # 0.9 L (1.0-4.8) k/uL Chloride 113 H 112 H (98-107) mmol/L Carbon Dioxide 17 L 19 L (22-30) mmol/L BUN 46 H 43 H (9-20) mg/dL Creatinine 3.02 H 2.90 H (0.66-1.25) mg/dL Calcium 8.1 L 8.1 L (8.4-10.2) mg/dL 02/04/23 Range/Units 03:38 RBC 3.46 L (4.30-5.90) m/uL Hgb 9.5 L (13.0-17.5) gm/dL Hct 31.1 L (39.0-53.0) % MCHC 30.4 L (31.0-37.0) g/dL RDW 18.3 H (11.5-15.5) % Lymphocytes # (1.0-4.8) k/uL Chloride (98-107) mmol/L Carbon Dioxide (22-30) mmol/L BUN (9-20) mg/dL Creatinine (0.66-1.25) mg/dL Calcium (8.4-10.2) mg/dL Microbiology - Last 24 Hours (Table) 02/01/23 12:40 Anaerobic Culture - Preliminary Buttock 02/01/23 12:40 Anaerobic Culture - Preliminary Foot - Left 02/01/23 12:40 Gram Stain - Preliminary Foot - Left Tissue Culture - Preliminary Gram Neg Bacilli 02/01/23 12:40 Gram Stain - Preliminary Buttock Tissue Culture - Preliminary Assessment and Plan (1) Pressure ulcer of left foot, unstageable Status: Acute Code(s): L89.890 - PRESSURE ULCER OF OTHER SITE, UNSTAGEABLE SNOMED Code(s): 318758471 Plan: 1patient with infected pressure ulcer to the left heel area which was debrided on 01/14/2023 culture positive for MRSA Citrobacter Morganella and anaerobes and the patient did have Morganella bacteremia repeat blood culture negative, patient presented to hospital with acute renal insufficiency possibly drug- related which has been put on hold nephrology has been consulted 2-patient noticed to have a significant necrotic changes to the left heel area patient has been evaluated by vascular surgery, patient is status post surgical debridement on 02/01/2023, cultures currently growing gram-negative with ID and sensitivities pending. 3-patient will be continued on cefepime Flagyl and daptomycin and monitor clinical course closely Time with Patient: Less than 30
--- NOTE | 2023-02-13 15:16 | P.PN ---
Subjective Progress Note Date: 02/05/23 Principal diagnosis: Left heel infected pressure ulcer Patient is 87 year old male with multiple comorbidities patient was recently admitted to the hospital and did have evidence of Morganella bacteremia patient also noticed to have a unstageable pressure ulcer to the left gluteal area status post surgical debridement on 01/14/2023 culture positive for Morganella Citrobacter as well as MRSA, patient was getting [facility]com[facility] and [facility] now admitted to the hospital with renal failure secondary to vancomycin, patient did have a bedside debridement of the left heel wound by vascular surgery on 02/01/2023 On today's evaluation that is 02/05/2023, the patient denies any fever or any chills, the patient pain to the left foot area is currently controlled, the patient denies chest pain shortness of breath or cough no abdominal pain or di arrhea, no new symptoms Objective - Vital Signs Vital signs: Vital Signs Temp 99.3 F 02/05/23 07:20 Pulse 66 02/05/23 09:22 Resp 16 02/05/23 08:00 BP 128/64 02/05/23 07:20 Pulse Ox 99 02/05/23 07:20 FiO2 Intake & Output 02/04/23 02/05/23 02/05/23 18:59 06:59 18:59 Output Total 900 450 50 Balance -900 -450 -50 Output: Urine 400 400 Stool 500 50 50 Other: Voiding Method Indwelling Catheter Indwelling Catheter Indwelling Catheter - Exam GENERAL DESCRIPTION: An elderly male lying in bed in no distress RESPIRATORY SYSTEM: Unlabored breathing , decreased breath sounds at bases HEART: S1 S2 regular rate and rhythm , ABDOMEN: Soft , no tenderness EXTREMITIES: Bilateral feet wounds are Currently dressed, no drainage and the dressing - Labs CBC & Chem 7: 02/04/23 03:38 02/05/23 04:47 Labs: Abnormal Lab Results - Last 24 Hours (Table) 02/05/23 Range/Units 04:47 Chloride 110 H (98-107) mmol/L BUN 39 H (9-20) mg/dL Creatinine 2.55 H (0.66-1.25) mg/dL Glucose 100 H (74-99) mg/dL Calcium 7.9 L (8.4-10.2) mg/dL Microbiology - Last 24 Hours (Table) 02/01/23 12:40 Gram Stain - Preliminary Buttock Tissue Culture - Preliminary Gogo albicans Klebsiella pneumoniae Group D Enterococcus Methicillin resist S. aureus 02/01/23 12:40 Gram Stain - Preliminary Foot - Left Tissue Culture - Preliminary Gram Neg Bacilli Group D Enterococcus Presumptive MRSA 02/01/23 12:40 Anaerobic Culture - Preliminary Buttock 02/01/23 12:40 Anaerobic Culture - Preliminary Foot - Left Assessment and Plan (1) Pressure ulcer of left foot, unstageable Status: Acute Code(s): L89.890 - PRESSURE ULCER OF OTHER SITE, UNSTAGEABLE SNOMED Code(s): 301698737 Plan: 1patient with infected pressure ulcer to the left heel area which was debrided on 01/14/2023 culture positive for MRSA Citrobacter Morganella and anaerobes and the patient did have Morganella bacteremia repeat blood culture negative, patient presented to hospital with acute renal insufficiency possibly drug- related which has been put on hold nephrology has been consulted 2-patient noticed to have a significant necrotic changes to the left heel area patient has been evaluated by vascular surgery, patient is status post surgical debridement on 02/01/2023, cultures currently growing Klebsiella enterococcus and MRSA with sensitivities pending 3-patient will be continued on cefepime Flagyl and daptomycin to finish 6 week course of therapy and close outpatient follow-up Time with Patient: Less than 30
--- NOTE | 2023-02-18 13:24 | CDI ---
Documentation Clarification Form Date: 02/07/23 From: Erna Suazo Admit Date: 01/30/2023 06:42:00 PM Patient Name: Justo Bright Visit Number: [id number] Discharge Date: 02/05/2023 01:59:00 PM ATTENTION: The Clinical Documentation Specialists (CDI) and [facility] Coding Staff appreciate your assistance in clarifying documentation. Please respond to the clarification below the line at the bottom and electronically sign. The CDI & [facility] Coding staff will review the response and follow-up if needed. Please note: Queries are made part of the Legal Health Record. If you have any questions, please contact the author of this message via ITS. Dr. Sid Love, A debridement is documented on the right gluteal wound, cluster tissue which asexcisedwith sharp knife thiswoundis almost down to the bone on the tibiatesttissue was excisedwith sharp knife. Additional clarification regarding the procedure is requested. History/Risk Factors: Pressure ulcers, HTN with CKD IIIa, ATN, cellulitis of left foot, T2DM w CKD, PAF Clinical Indicators: Right gluteal wound, cluster tissue which asexcisedwith sharp knife thiswoundis almost down to the bone on the tibiatesttissue was excisedwith sharp knife. Treatment: Excisional debridement, open right gluteal wound Please clarify the type of procedure performed on the right gluteal wound: [ ] Bone site of gluteal wound _bone of giuteil wound (pelvic, tibia etc) [ ] Other; please specify [ ] Unable to determine Five elements required for accurate and compliant documentation of a debridement: Technique used (e.g., excisional, excised, cutting, brushing, jet lavage etc.) Instrument(s) used (e.g., scalpel, curette, etc.) Nature of the tissue removed (e.g., necrotic, devitalized tissues, non-viable tissue, etc.) Appearance and size of the wound (e.g., down to fresh bleeding tissue, 7cm x 10cm, etc.) Depth of the debridement* (e.g., skin, subcutaneous tissue, fascia, muscle, bone, etc.) MTDD
== END 2023-02-05 13:59 | DRG 674 ==
LOC: EC 16:27 → 5NMEDONC 18:42 → 4SSUR 23:41
PROVIDERS: ADMIT Internal Medicine; ATTEND Internal Medicine
PROC: 0JB90ZZ Excision of Buttock Subcutaneous Tissue and Fascia, Open Approach (ICD-10-PCS; principal; 2023-02-01)
PROC: 0QBM0ZZ Excision of Left Tarsal, Open Approach (ICD-10-PCS; principal; 2023-02-01)
PROC: 0JBR0ZZ Excision of Left Foot Subcutaneous Tissue and Fascia, Open Approach (ICD-10-PCS; principal; 2023-02-01)
DX: N17.0 Acute kidney failure with tubular necrosis (principal); E46 Unspecified protein-calorie malnutrition; E87.20 Acidosis, unspecified; I69.351 Hemiplegia and hemiparesis following cerebral infarction affecting right dominant side; L03.116 Cellulitis of left lower limb; L89.320 Pressure ulcer of left buttock, unstageable; L89.310 Pressure ulcer of right buttock, unstageable; L89.629 Pressure ulcer of left heel, unspecified stage; L89.890 Pressure ulcer of other site, unstageable; Z43.3 Encounter for attention to colostomy; E11.22 Type 2 diabetes mellitus with diabetic chronic kidney disease; I95.9 Hypotension, unspecified; I12.9 Hypertensive chronic kidney disease with stage 1 through stage 4 chronic kidney disease, or unspecified chronic kidney disease; E78.5 Hyperlipidemia, unspecified; D64.9 Anemia, unspecified; N18.31 Chronic kidney disease, stage 3a; I48.0 Paroxysmal atrial fibrillation; Z68.20 Body mass index [BMI] 20.0-20.9, adult; B95.62 Methicillin resistant Staphylococcus aureus infection as the cause of diseases classified elsewhere; T36.8X5A Adverse effect of other systemic antibiotics, initial encounter; N40.1 Benign prostatic hyperplasia with lower urinary tract symptoms; R33.8 Other retention of urine; M21.372 Foot drop, left foot; N20.0 Calculus of kidney; M62.50 Muscle wasting and atrophy, not elsewhere classified, unspecified site; Z79.01 Long term (current) use of anticoagulants; Z79.82 Long term (current) use of aspirin; Z79.84 Long term (current) use of oral hypoglycemic drugs; Z79.2 Long term (current) use of antibiotics; Z79.899 Other long term (current) drug therapy; Z87.891 Personal history of nicotine dependence; Z86.711 Personal history of pulmonary embolism; Z98.1 Arthrodesis status; Z86.718 Personal history of other venous thrombosis and embolism; Z71.3 Dietary counseling and surveillance; Z88.8 Allergy status to other drugs, medicaments and biological substances
CPT/HCPCS: 76770; 80048; 80202; 81001; 83735; 85025; 85027; 87070; 87075; 87077; 87186; 87205; 94640; 96360; 96361; 99285

== ENCOUNTER 2023-02-10 16:53 | Inpatient (IN) | payer MEDICARE ==
[2023-02-10] MEDS ORDERED: SODIUM CHLORIDE 0.9% 1,000 ML IV STA (17:16)
[2023-02-10] MEDS ORDERED: ONDANSETRON 4 MG/2 ML VIAL IVP STA (17:17)
--- NOTE | 2023-02-10 17:24 | ED ---
General Adult HPI - General Chief complaint: Recheck/Abnormal Lab/Rx Stated complaint: colon prolapse Time Seen by Provider: 02/10/23 16:58 Source: patient, EMS Mode of arrival: EMS Limitations: no limitations - History of Present Illness Initial comments: This patient is an 87-year-old man sent from [facility] to have evaluation for prolapse of his colostomy. The transfer notes mention that this was found around 4:30 this afternoon and he was transferred here. The patient is not aware of how long this has been going on. When asked about his abdomen he states that his stomach feels upset. He denies jeanna pain. No nausea or vomiting. -: unknown Location: abdomen Radiation: non-radiation Consistency: constant Improves with: none Worsens with: none Associated Symptoms: denies other symptoms Treatments Prior to Arrival: none - Related Data Home Medications Medication Instructions Recorded Confirmed Tamsulosin HCl [Flomax] 0.4 mg PO DAILY@0800 02/14/18 02/10/23 Pantoprazole Sodium [Protonix] 40 mg PO DAILY@0600 10/20/22 02/10/23 Albuterol Inhaler [Ventolin Hfa 2 puff INHALATION RT-Q6H 10/28/22 02/10/23 Inhaler] Apixaban [Eliquis] 2.5 mg PO BID@0800,1700 10/28/22 02/10/23 Aspirin 81 mg PO DAILY@169910/28/22 02/10/23 Ensure Enlive 237 ml PO TID@0800,1200,1700 10/28/22 02/10/23 Eucerin Advanced Repair Cream 1 applic TOPICAL DAILY 10/28/22 02/10/23 Eucerin Advanced Repair Cream 1 applic TOPICAL DAILY PRN 10/28/22 02/10/23 Na Phos,M-B/Na Phos,Di-Ba [Fleet 133 ml RECTAL DAILY PRN 10/28/22 02/10/23 Adult] bisacodyL [Dulcolax] 10 mg RECTAL DAILY PRN 10/28/22 02/10/23 Amiodarone [Cordarone] 200 mg PO BID@0800,1700 12/14/22 02/10/23 Ferrous Sulfate [Iron (65 MG 325 mg PO DAILY@1700 01/09/23 02/10/23 Elemental)] Lactulose 30 gm PO DAILY@0800 01/09/23 02/10/23 Metoprolol Succinate (ER) [Toprol 12.5 mg PO DAILY@0800 01/09/23 02/10/23 XL] Multivitamins, Thera [Multivitamin 1 tab PO DAILY@1700 01/09/23 02/10/23 (formulary)] Thiamine [Vitamin B-1] 100 mg PO BID@0800,1700 01/09/23 02/10/23 polyethylene glycoL 3350 [Miralax] 17 gm PO DAILY@0800 01/09/23 02/10/23 Folic Acid 1 mg PO DAILY@1700 02/10/23 02/10/23 metroNIDAZOLE [Flagyl] 500 mg PO TID@0800,1400,2100 02/10/23 02/10/23 Previous Rx's Medication Instructions Recorded DAPTOmycin [Cubicin] 400 mg IVPB Q48H each 02/05/23 Acetaminophen Tab [Tylenol] 650 mg PO Q6HR PRN tab 02/12/23 Cefepime [Maxipime] 1 gm IVPB Q12HR@0800,2100 #0 02/12/23 Famotidine [Pepcid] 20 mg PO DAILY tab 02/12/23 HYDROcodone/APAP 5-325MG [[place] 1 tab PO Q6HR PRN 3 Days #6 tab 02/12/23 5-325] Allergies Allergy/AdvReac Type Severity Reaction Status Date / Time memantine [From Namenda] AdvReac Nausea & Verified 02/10/23 20:10 Vomiting & Diarrhea Review of Systems ROS Statement: Those systems with pertinent positive or pertinent negative responses have been documented in the HPI. ROS Other: All systems not noted in ROS Statement are negative. Constitutional: Denies: fever Respiratory: Denies: cough, dyspnea Cardiovascular: Denies: chest pain Gastrointestinal: Reports: as per HPI. 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 History of Any Multi-Drug Resistant Organisms: MRSA Date of last positivie culture/infection: 01/14/23 MDRO Source:: Left Heel Past Surgical History: Bowel Resection Additional Past Surgical History / Comment(s): 2020 bowel resection/colostomy, CVA in 1955 which made need for R elbow surgery/R ankle fusion, post cva surgery on back to remove blood clot, bilateral eye lens implants. Past Anesthesia/Blood Transfusion Reactions: No Reported Reaction Additional Past Anesthesia/Blood Transfusion Reaction / Comment(s): Pt believes he has received blood in past without reaction. Past Psychological History: No Psychological Hx Reported Smoking Status: Former smoker Past Alcohol Use History: None Reported Past Drug Use History: None Reported - Past Family History Mother Family Medical History: Dementia Additional Family Medical History / Comment(s): ALZHEIMERS Father Family Medical History: No Reported History Additional Family Medical History / Comment(s): Pt states his father was healthy General Exam Limitations: no limitations General appearance: alert, in no apparent distress Head exam: Present: atraumatic, normocephalic Eye exam: Present: normal appearance. Absent: scleral icterus, conjunctival injection Neck exam: Present: normal inspection Respiratory exam: Present: normal lung sounds bilaterally. Absent: respiratory distress, wheezes, rales, rhonchi, stridor Cardiovascular Exam: Present: regular rate, normal rhythm, normal heart sounds. Absent: systolic murmur, diastolic murmur, rubs, gallop GI/Abdominal exam: Present: soft, other (Patient has right sided colostomy with approximately 5 inches of prolapse colon. There is moderate amount of edema and a small amount of capillary oozing. There is no duskiness.). Absent: distended, tenderness, guarding, rebound Extremities exam: Present: normal inspection, normal capillary refill. Absent: pedal edema, calf tenderness Back exam: Present: normal inspection. Absent: CVA tenderness (R), CVA tenderness (L) Neurological exam: Present: alert Skin exam: Present: warm, dry, intact, normal color. Absent: rash Course Vital Signs 02/10/23 02/10/23 02/10/23 16:55 18:00 19:00 Temperature 97.0 F L Pulse Rate 75 68 70 Respiratory 16 18 16 Rate Blood Pressure 106/73 115/59 117/67 O2 Sat by Pulse 96 96 93 L Oximetry 02/10/23 02/11/23 22:00 00:50 Temperature Pulse Rate 76 60 Respiratory 16 16 Rate Blood Pressure 109/84 121/60 O2 Sat by Pulse 94 L 95 Oximetry Medical Decision Making - Medical Decision Making 's patient is an 87-year-old man sent from [facility] with prolapse from his ostomy. Sugar was applied to reduce edema. I was then able to gently reduce the patient's prolapse. Given the degree of edema patient admitted to ensure that there is no necrosis of tissue and also to ensure that there is no development of peristomal hernia. The patient did have abdominal x-ray which I interpreted to not show evidence of obstruction Was pt. sent in by a medical professional or institution (, PA, OPTIMIZATION MANAGER, urgent care, hospital, or [facility]...) When possible be specific @ -[No] Did you speak to anyone other than the patient for history (EMS, parent, family, police, friend...)? What history was obtained from this source @ -[No] Did you review nursing and triage notes (agree or disagree)? Why? @ -[I reviewed and agree with nursing and triage notes] Were old charts reviewed (outside hosp., previous admission, EMS record, old EKG, old radiological studies, urgent care reports/EKG's, [facility] records)? Report findings @ -Yes, old charts were reviewed] Differential Diagnosis (chest pain, altered mental status, abdominal pain women, abdominal pain men, vaginal bleeding, weakness, fever, dyspnea, syncope, headache, dizziness, GI bleed, back pain, seizure, CVA, palpatations, mental health, musculoskeletal)? @ -[Differential Abdominal Pain Men: Appendicitis, cholecystitis, diverticulosis, ischemic bowel, pancreatitis, hepatitis, UTI, gastroenteritis, AAA, incarcerated hernia, bowel obstruction, constipation, inflammatory bowel, hepatitis, peptic ulcer disease, splenic infarction, perforated viscus, testicular torsion, this is not meant to be an all-inclusive list EKG interpreted by me (3pts min.). @ -[ X-rays interpreted by me (1pt min.). @ -[As above CT interpreted by me (1pt min.). @ -[None done] U/S interpreted by me (1pt. min.). @ -[None done] What testing was considered but not performed or refused? (CT, X-rays, U/S, labs)? Why? @ -[None] What meds were considered but not given or refused? Why? @ -[None] Did you discuss the management of the patient with other professionals ( professionals i.e. , PA, OPTIMIZATION MANAGER, lab, RT, psych nurse, social media marketing analyst, stamp pad maker, teacher, dental officer, mental health case manager)? Give summary @ -[Case is discussed with admitting physician Was smoking cessation discussed for >3mins.? @ -[No] Was critical care preformed (if so, how long)? @ -[No] Were there social determinants of health that impacted care today? How? (Homelessness, low income, unemployed, alcoholism, drug addiction, transportation, low edu. Level, literacy, decrease access to med. care, nursing home, rehab)? @ -[No] Was there de-escalation of care discussed even if they declined (Discuss DNR or withdrawal of care, Hospice)? DNR status @ -[No] What co-morbidities impacted this encounter? (DM, HTN, Smoking, COPD, CAD, Cancer, CVA, ARF, Chemo, Hep., AIDS, mental health diagnosis, sleep apnea, morbid obesity)? @ -[None] Was patient admitted / discharged? Hospital course, mention meds given and route, prescriptions, significant lab abnormalities, going to OR and other pertinent info. @ -[Admitted to have surgical consultation. Undiagnosed new problem with uncertain prognosis? @ -[No] Drug Therapy requiring intensive monitoring for toxicity (Heparin, Nitro, Insulin, Cardizem)? @ -[No] Were any procedures done? @ -[A bedside reduction was performed of the prolapse. Diagnosis/symptom? @ -[Prolapse of patient's surgical ostomy Acute, or Chronic, or Acute on Chronic? @ -[Acute Uncomplicated (without systemic symptoms) or Complicated (systemic symptoms)? @ -[Uncomplicated Side effects of treatment? @ -[No] Exacerbation, Progression, or Severe Exacerbation? @ -[No] Poses a threat to life or bodily function? How? (Chest pain, USA, IA, pneumonia, PE, COPD, DKA, ARF, appy, cholecystitis, CVA, Diverticulitis, Homicidal, Suicidal, threat to staff... and all critical care pts) @ -[No] - Lab Data Result diagrams: 02/11/23 05:54 02/12/23 11:40 Lab Results 02/10/23 02/10/23 02/10/23 Range/Units 17:20 17:20 17:20 WBC 11.5 H (3.8-10.6) k/uL RBC 3.39 L (4.30-5.90) m/uL Hgb 9.5 L (13.0-17.5) gm/dL Hct 30.6 L (39.0-53.0) % MCV 90.3 (80.0-100.0) fL MCH 28.0 (25.0-35.0) pg MCHC 31.1 (31.0-37.0) g/dL RDW 19.0 H (11.5-15.5) % Plt Count 248 (150-450) k/uL MPV 9.1 Neutrophils % 83 % Lymphocytes % 9 % Monocytes % 5 % Eosinophils % 2 % Basophils % 0 % Neutrophils # 9.5 H (1.3-7.7) k/uL Lymphocytes # 1.0 (1.0-4.8) k/uL Monocytes # 0.6 (0-1.0) k/uL Eosinophils # 0.3 (0-0.7) k/uL Basophils # 0.0 (0-0.2) k/uL Hypochromasia Moderate Anisocytosis Slight Sodium 137 (137-145) mmol/L Potassium 4.2 (3.5-5.1) mmol/L Chloride 107 (98-107) mmol/L Carbon Dioxide 20 L (22-30) mmol/L Anion Gap 10 mmol/L BUN 52 H (9-20) mg/dL Creatinine 2.83 H (0.66-1.25) mg/dL Est GFR (CKD-EPI)AfAm 22 (>60 ml/min/1.73 sqM) Est GFR (CKD-EPI)NonAf 19 (>60 ml/min/1.73 sqM) Glucose 94 (74-99) mg/dL Plasma Lactic Acid Santosh 1.6 (0.7-2.0) mmol/L Calcium 8.1 L (8.4-10.2) mg/dL Total Bilirubin 0.5 (0.2-1.3) mg/dL AST 27 (17-59) U/L ALT 16 (4-49) U/L Alkaline Phosphatase 116 (38-126) U/L Total Protein 6.5 (6.3-8.2) g/dL Albumin 2.6 L (3.5-5.0) g/dL 02/11/23 02/11/23 Range/Units 05:54 05:54 WBC 8.8 (3.8-10.6) k/uL RBC 2.98 L (4.30-5.90) m/uL Hgb 8.5 L (13.0-17.5) gm/dL Hct 27.4 L (39.0-53.0) % MCV 91.9 (80.0-100.0) fL MCH 28.5 (25.0-35.0) pg MCHC 31.0 (31.0-37.0) g/dL RDW 19.1 H (11.5-15.5) % Plt Count 196 (150-450) k/uL MPV 9.5 Neutrophils % 80 % Lymphocytes % 10 % Monocytes % 6 % Eosinophils % 3 % Basophils % 0 % Neutrophils # 7.0 (1.3-7.7) k/uL Lymphocytes # 0.9 L (1.0-4.8) k/uL Monocytes # 0.5 (0-1.0) k/uL Eosinophils # 0.2 (0-0.7) k/uL Basophils # 0.0 (0-0.2) k/uL Hypochromasia Marked Anisocytosis Slight Sodium 139 (137-145) mmol/L Potassium 4.3 (3.5-5.1) mmol/L Chloride 111 H (98-107) mmol/L Carbon Dioxide 20 L (22-30) mmol/L Anion Gap 8 mmol/L BUN 52 H (9-20) mg/dL Creatinine 2.94 H (0.66-1.25) mg/dL Est GFR (CKD-EPI)AfAm 21 (>60 ml/min/1.73 sqM) Est GFR (CKD-EPI)NonAf 18 (>60 ml/min/1.73 sqM) Glucose 74 (74-99) mg/dL Plasma Lactic Acid Santosh (0.7-2.0) mmol/L Calcium 8.0 L (8.4-10.2) mg/dL Total Bilirubin (0.2-1.3) mg/dL AST (17-59) U/L ALT (4-49) U/L Alkaline Phosphatase (38-126) U/L Total Protein (6.3-8.2) g/dL Albumin (3.5-5.0) g/dL Disposition Clinical Impression: Colostomy prolapse Disposition: ADMITTED IP TO THIS HOSP Condition: Fair Is patient prescribed a controlled substance at d/c from ED?: No
[2023-02-10 17:53] LABS: Anisocytosis Slight; Basophils % (A) 0 %; Eosinophils # (A) 0.3 k/uL (0-0.7); Eosinophils % (A) 2 %; HCT 30.6 % (39.0-53.0); HGB 9.5 gm/dL (13.0-17.5); Hypochromasia Moderate; Lymphocytes % (A) 9 %; MCHC 31.1 g/dL (31.0-37.0); MCV 90.3 fL (80.0-100.0); Mean Platelet Volume 9.1; Monocytes # (A) 0.6 k/uL (0-1.0); Monocytes % (A) 5 %; Neutrophils # (A) 9.5 k/uL (1.3-7.7); Neutrophils % (A) 83 %; Platelet Count 248 k/uL (150-450); RBC 3.39 m/uL (4.30-5.90); WBC 11.5 k/uL (3.8-10.6)
[2023-02-10 18:05] LABS: ALT 16 U/L (4-49); AST 27 U/L (17-59); African American GFR (CKD) 22 (>60 ml/min/1.73 sqM); Albumin 2.6 g/dL (3.5-5.0); Alkaline Phosphatase 116 U/L (38-126); Anion Gap 10 mmol/L; Blood Urea Nitrogen 52 mg/dL (9-20); Calcium 8.1 mg/dL (8.4-10.2); Carbon Dioxide 20 mmol/L (22-30); Chloride 107 mmol/L (98-107); Glucose 94 mg/dL (74-99); Non-African American GFR(CKD) 19 (>60 ml/min/1.73 sqM); Potassium 4.2 mmol/L (3.5-5.1); Sodium 137 mmol/L (137-145); Total Bilirubin 0.5 mg/dL (0.2-1.3); Total Protein 6.5 g/dL (6.3-8.2)
--- NOTE | 2023-02-10 19:27 | XR ---
EXAMINATION TYPE: XR abdomen 2V DATE OF EXAM: 02/10/2023 6:40 PM INDICATION: Patient age:Male; 87 years old; Reason for study: possible obstruction; PHH. COMPARISON: CT abdomen pelvis 01/13/2023, abdominal radiographs 11/03/2022 TECHNIQUE: 2 supine views of the abdomen were obtained. FINDINGS: The bowel gas pattern is nonspecific without dilated loops of small or large bowel. There i s no evidence for organomegaly or pneumoperitoneum. Severe degenerative changes of the lumbar spine w ith mild dextro scoliotic curvature. Moderate to severe degenerative changes of the hip joints bilate rally. No abnormal calcifications are present, phleboliths are noted within the pelvis. Left lower q uadrant stoma noted. Moderate stool burden throughout the colonic bowel. IMPRESSION: Nonspecific bowel gas pattern without radiographic evidence for acute process. Moderate stool burden within the colon.
[2023-02-10] MEDS ORDERED: HYDROcodone/APAP 5-325MG 1 EACH TAB PO PRN (21:57)
[2023-02-10] MEDS: CEFEPIME 2 GM VIAL IVPB SCH ×2 (22:16→22:30)
[2023-02-10] MEDS: APIXABAN 2.5 MG TABLET PO SCH (22:17)
[2023-02-10] MEDS: CEFEPIME 2 GM in SODIUM CHLORIDE 0.9% 100 ML IVPB SCH (22:31)
[2023-02-10] MEDS ORDERED: NALOXONE 0.4 MG/ML 1 ML VIAL IV PRN (23:26)
[2023-02-10] MEDS ORDERED: ACETAMINOPHEN TAB 325 MG TAB PO PRN (23:26)
[2023-02-11] MEDS: SODIUM CHLORIDE 0.9% 1,000 ML IV SCH ×4 (00:35→20:36)
[2023-02-11 06:37] LABS: Anisocytosis Slight; Basophils % (A) 0 %; Eosinophils # (A) 0.2 k/uL (0-0.7); Eosinophils % (A) 3 %; HCT 27.4 % (39.0-53.0); HGB 8.5 gm/dL (13.0-17.5); Hypochromasia Marked; Lymphocytes # (A) 0.9 k/uL (1.0-4.8); Lymphocytes % (A) 10 %; MCH 28.5 pg (25.0-35.0); MCV 91.9 fL (80.0-100.0); Mean Platelet Volume 9.5; Monocytes # (A) 0.5 k/uL (0-1.0); Monocytes % (A) 6 %; Neutrophils % (A) 80 %; Platelet Count 196 k/uL (150-450); RBC 2.98 m/uL (4.30-5.90); RDW 19.1 % (11.5-15.5); WBC 8.8 k/uL (3.8-10.6)
[2023-02-11 07:23] LABS: African American GFR (CKD) 21 (>60 ml/min/1.73 sqM); Anion Gap 8 mmol/L; Blood Urea Nitrogen 52 mg/dL (9-20); Carbon Dioxide 20 mmol/L (22-30); Chloride 111 mmol/L (98-107); Glucose 74 mg/dL (74-99); Non-African American GFR(CKD) 18 (>60 ml/min/1.73 sqM); Potassium 4.3 mmol/L (3.5-5.1); Sodium 139 mmol/L (137-145)
[2023-02-11] MEDS: ALBUTEROL NEBULIZED 2.5 MG/3 ML INHALATION SCH ×4 (07:37→18:32)
[2023-02-11] MEDS: APIXABAN 2.5 MG TABLET PO SCH (08:56)
[2023-02-11] MEDS ORDERED: FAMOTIDINE 20 MG TAB PO SCH (09:00)
[2023-02-11] MEDS: CEFEPIME 2 GM in SODIUM CHLORIDE 0.9% 100 ML IVPB SCH (09:45)
[2023-02-11] MEDS: AMIODARONE 200 MG TAB PO SCH ×2 (11:11→20:36)
[2023-02-11] MEDS: METOPROLOL SUCCINATE (ER) 25 MG TAB.ER.24H PO SCH (11:12)
[2023-02-11] MEDS: polyethylene glycoL 3350 17 GM POWD.PACK PO SCH (11:12)
[2023-02-11] MEDS: TAMSULOSIN 0.4 MG CAP.ER.24H PO SCH (11:12)
[2023-02-11] MEDS: LACTULOSE 20 GM/30 ML CUP PO SCH (11:12)
[2023-02-11] MEDS: metroNIDAZOLE 500 MG TAB PO SCH ×3 (11:12→23:32)
[2023-02-11] MEDS: THIAMINE 100 MG TAB PO SCH ×2 (11:13→20:36)
--- NOTE | 2023-02-11 12:01 | HP ---
HISTORY AND PHYSICAL CHIEF COMPLAINT: Colon prolapse. 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 The patient in the custodial was noted to have colonic prolapse and was sent to [facility]. There is no history of fever, rigors, or chills at this time. The patient is mildly confused. Surgery evaluation is in progress. PAST MEDICAL HISTORY: Reviewed and includes recent polymicrobial infection. The rest of the history and rest of the chart are also reviewed. HOME MEDICATIONS: Reviewed and include MiraLAX, dose and rest of medications reviewed. ALLERGIES: Namenda. Family history, social history, and review of systems could not be taken as the patient is mildly confused. PHYSICAL EXAMINATION: VITAL SIGNS: Pulse is 62, blood pressure 110/76, respirations 14. CHEST: Clear to auscultation. CARDIOVASCULAR: S1 and S2. ABDOMEN: Soft. No ostomy present. Not much prolapse is visible. Nontender. No mass palpable. LEGS: No edema. NERVOUS SYSTEM: No focal deficit. LABORATORY DATA: Reviewed. Creatinine is 2.9. ASSESSMENT: 1. Colonic prolapse for evaluation with history of colostomy. 2. History of recent polymicrobial lower leg infection. 3. History of acute on chronic kidney failure. 4. Anemia. 5. Multiple medical issues. RECOMMENDATIONS AND DISCUSSION: This is an 87-year-old gentleman, who presented with multiple complex medical issues. At this time, I recommended to continue with current management and symptomatic treatment. Otherwise, continue the antibiotics, Infectious Disease evaluation, surgical evaluation. Nephrology is also being consulted. Prognosis is guarded. Home medications will be continued. Once the patient is stabilized, the patient will return back to [facility]. Further recommendations to follow. MMODL / IJN: [id number] /
--- NOTE | 2023-02-11 12:04 | P.GSCN ---
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 ER physician reports that there was about 5 inches of prolapse noted. Patient is a poor historian. He is not sure how long this been going on. She denies any pain. As of now there is no output through the ostomy and no significant prolapse noted. It is unclear when the last stool output from the ostomy was. 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 In September 2020 patient has found have a perforated sigmoid colon with fecal impaction and at that time had sigmoid colectomy with end colostomy. Abdominal x-ray from yesterday shows nonspecific bowel gas pattern without evidence for acute process. Moderate stool burden within the colon. Patient does take Eliquis for atrial fibrillation. Last dose was last night. 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 PAST SURGICAL HISTORY: See below MEDICATIONS: See below ALLERGIES: See below SOCIAL HISTORY: No illicit drug use. REVIEW OF SYSTEMS: CONSTITUTIONAL: Denies fever or chills. HEENT: Denies blurred vision, vision changes, or eye pain. Denies hemoptysis CARDIOVASCULAR: Denies chest pain or pressure. RESPIRATORY: No shortness of breath. GASTROINTESTINAL: See HPI for pertinent findings HEMATOLOGIC: Denies bleeding disorders. GENITOURINARY: Denies any blood in urine or increased urinary frequency. SKIN: Denies pruitis. Denies rash. PHYSICAL EXAM: VITAL SIGNS: Reviewed GENERAL: Well-developed in no acute distress. ABDOMEN: Soft. Nondistended. Nontender. Colostomy on the right with no output. Stoma noted beefy red. No significant prolapse noted NEUROLOGIC: Awake and alert LABORATORY DATA: WBC 11.5 down to 8.8 Hgb 9.5-8.5 platelets 196 Sodium is 139 potassium is 4.3 creatinine 2.94 IMAGING: Abdominal x-ray as stated above ASSESSMENT: 1. Prolapse of colostomy 2. 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 PLAN: -Continue to monitor -Patient may need colostomy revision -Start clear liquids -Hold Eliquis for possible surgical intervention Physician Hydropress Operator note has been reviewed by physician. Signing provider agrees with the documented findings, assessment, and plan of care. 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 History of Any Multi-Drug Resistant Organisms: MRSA Year Discovered:: 01/14/23 MDRO Source:: Left Heel Past Surgical History: Bowel Resection Additional Past Surgical History / Comment(s): 2020 bowel resection/colostomy, CVA in 1955 which made need for R elbow surgery/R ankle fusion, post cva surgery on back to remove blood clot, bilateral eye lens implants. Past Anesthesia/Blood Transfusion Reactions: No Reported Reaction Additional Past Anesthesia/Blood Transfusion Reaction / Comm: Pt believes he has received blood in past without reaction. Past Psychological History: No Psychological Hx Reported Smoking Status: Former smoker Past Alcohol Use History: None Reported Past Drug Use History: None Reported - Past Family History Mother Family Medical History: Dementia Additional Family Medical History / Comment(s): ALZHEIMERS Father Family Medical History: No Reported History Additional Family Medical History / Comment(s): Pt states his father was healthy Medications and Allergies Home Medications Medication Instructions Recorded Confirmed Type Tamsulosin HCl [Flomax] 0.4 mg PO DAILY@0800 02/14/18 02/10/23 History Pantoprazole Sodium [Protonix] 40 mg PO DAILY@0600 10/20/22 02/10/23 History Albuterol Inhaler [Ventolin Hfa 2 puff INHALATION RT-Q6H 10/28/22 02/10/23 History Inhaler] Apixaban [Eliquis] 2.5 mg PO BID@0800,1700 10/28/22 02/10/23 History Aspirin 81 mg PO DAILY@1700 10/28/22 02/10/23 History Ensure Enlive 237 ml PO TID@0800,1200,1700 10/28/22 02/10/23 History Eucerin Advanced Repair Cream 1 applic TOPICAL DAILY 10/28/22 02/10/23 History Eucerin Advanced Repair Cream 1 applic TOPICAL DAILY PRN 10/28/22 02/10/23 History Na Phos,M-B/Na Phos,Di-Ba [Fleet 133 ml RECTAL DAILY PRN 10/28/22 02/10/23 History Adult] bisacodyL [Dulcolax] 10 mg RECTAL DAILY PRN 10/28/22 02/10/23 History Amiodarone [Cordarone] 200 mg PO BID@0800,1700 12/14/22 02/10/23 History HYDROcodone/APAP 5-325MG [[place] 1 tab PO Q6HR PRN 3 Days #12 tab 12/25/22 02/10/23 Rx 5-325] Ferrous Sulfate [Iron (65 MG 325 mg PO DAILY@1700 01/09/23 02/10/23 History Elemental)] Lactulose 30 gm PO DAILY@0800 01/09/23 02/10/23 History Metoprolol Succinate (ER) [Toprol 12.5 mg PO DAILY@0800 01/09/23 02/10/23 History XL] Multivitamins, Thera [Multivitamin 1 tab PO DAILY@1700 01/09/23 02/10/23 History (formulary)] Thiamine [Vitamin B-1] 100 mg PO BID@0800,1700 01/09/23 02/10/23 History polyethylene glycoL 3350 [Miralax] 17 gm PO DAILY@0800 01/09/23 02/10/23 History DAPTOmycin [Cubicin] 400 mg IVPB Q48H each 02/05/23 02/10/23 Rx Cefepime [Maxipime] 2 gm IVPB Q12HR@0800,2100 02/10/23 02/10/23 History Folic Acid 1 mg PO DAILY@1700 02/10/23 02/10/23 History metroNIDAZOLE [Flagyl] 500 mg PO TID@0800,1400,209902/10/23 02/10/23 History Allergies Allergy/AdvReac Type Severity Reaction Status Date / Time memantine [From Namenda] AdvReac Nausea & Verified 02/10/23 20:10 Vomiting & Diarrhea Surgical - Exam Vital Signs Temp Pulse Resp BP Pulse Ox 97.0 F L 75 16 106/73 96 02/10/23 16:55 02/10/23 16:55 02/10/23 16:55 02/10/23 16:55 02/10/23 16:55 Results - Labs 02/11/23 05:54 02/11/23 05:54 Abnormal Lab Results - Last 24 Hours (Table) 02/10/23 02/10/23 02/11/23 Range/Units 17:20 17:20 05:54 WBC 11.5 H (3.8-10.6) k/uL RBC 3.39 L 2.98 L (4.30-5.90) m/uL Hgb 9.5 L 8.5 L (13.0-17.5) gm/dL Hct 30.6 L 27.4 L (39.0-53.0) % RDW 19.0 H 19.1 H (11.5-15.5) % Neutrophils # 9.5 H (1.3-7.7) k/uL Lymphocytes # 0.9 L (1.0-4.8) k/uL Chloride (98-107) mmol/L Carbon Dioxide 20 L (22-30) mmol/L BUN 52 H (9-20) mg/dL Creatinine 2.83 H (0.66-1.25) mg/dL Calcium 8.1 L (8.4-10.2) mg/dL Albumin 2.6 L (3.5-5.0) g/dL 02/11/23 Range/Units 05:54 WBC (3.8-10.6) k/uL RBC (4.30-5.90) m/uL Hgb (13.0-17.5) gm/dL Hct (39.0-53.0) % RDW (11.5-15.5) % Neutrophils # (1.3-7.7) k/uL Lymphocytes # (1.0-4.8) k/uL Chloride 111 H (98-107) mmol/L Carbon Dioxide 20 L (22-30) mmol/L BUN 52 H (9-20) mg/dL Creatinine 2.94 H (0.66-1.25) mg/dL Calcium 8.0 L (8.4-10.2) mg/dL Albumin (3.5-5.0) g/dL Diabetes panel 02/10/23 02/11/23 Range/Units 17:20 05:54 Sodium 137 139 (137-145) mmol/L Potassium 4.2 4.3 (3.5-5.1) mmol/L Chloride 107 111 H (98-107) mmol/L Carbon Dioxide 20 L 20 L (22-30) mmol/L BUN 52 H 52 H (9-20) mg/dL Creatinine 2.83 H 2.94 H (0.66-1.25) mg/dL Glucose 94 74 (74-99) mg/dL Calcium 8.1 L 8.0 L (8.4-10.2) mg/dL AST 27 (17-59) U/L ALT 16 (4-49) U/L Alkaline Phosphatase 116 (38-126) U/L Total Protein 6.5 (6.3-8.2) g/dL Albumin 2.6 L (3.5-5.0) g/dL Calcium panel 02/10/23 02/11/23 Range/Units 17:20 05:54 Calcium 8.1 L 8.0 L (8.4-10.2) mg/dL Albumin 2.6 L (3.5-5.0) g/dL Pituitary panel 02/10/23 02/11/23 Range/Units 17:20 05:54 Sodium 137 139 (137-145) mmol/L Potassium 4.2 4.3 (3.5-5.1) mmol/L Chloride 107 111 H (98-107) mmol/L Carbon Dioxide 20 L 20 L (22-30) mmol/L BUN 52 H 52 H (9-20) mg/dL Creatinine 2.83 H 2.94 H (0.66-1.25) mg/dL Glucose 94 74 (74-99) mg/dL Calcium 8.1 L 8.0 L (8.4-10.2) mg/dL Adrenal panel 02/10/23 02/11/23 Range/Units 17:20 05:54 Sodium 137 139 (137-145) mmol/L Potassium 4.2 4.3 (3.5-5.1) mmol/L Chloride 107 111 H (98-107) mmol/L Carbon Dioxide 20 L 20 L (22-30) mmol/L BUN 52 H 52 H (9-20) mg/dL Creatinine 2.83 H 2.94 H (0.66-1.25) mg/dL Glucose 94 74 (74-99) mg/dL Calcium 8.1 L 8.0 L (8.4-10.2) mg/dL Total Bilirubin 0.5 (0.2-1.3) mg/dL AST 27 (17-59) U/L ALT 16 (4-49) U/L Alkaline Phosphatase 116 (38-126) U/L Total Protein 6.5 (6.3-8.2) g/dL Albumin 2.6 L (3.5-5.0) g/dL
--- NOTE | 2023-02-11 13:25 | P.NPCON ---
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 He has a left heel ulcer for which patient was maintained on IV vancomycin and had developed acute kidney injury from vancomycin toxicity and ATN from low blood pressure. Level was 37.6 on 01/28/2023. At that time serum creatinine had peaked to 3.5 mg/dL. Renal function had improved with serum creatinine down to 2.5 mg/dL on . Serum creatinine at 2.9 today Patient is admitted to the hospital now with prolapse of colostomy. He is being evaluated by general surgery. 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 350 ML of urine noted in the Carranza bag Systolic blood pressure 107-120 mmHg. 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 History of Any Multi-Drug Resistant Organisms: MRSA Date of last positivie culture/infection: 01/14/23 MDRO Source:: Left Heel Past Surgical History: Bowel Resection Additional Past Surgical History / Comment(s): 2020 bowel resection/colostomy, CVA in 1955 which made need for R elbow surgery/R ankle fusion, post cva surgery on back to remove blood clot, bilateral eye lens implants. Past Anesthesia/Blood Transfusion Reactions: No Reported Reaction Additional Past Anesthesia/Blood Transfusion Reaction / Comment(s): Pt believes he has received blood in past without reaction. Past Psychological History: No Psychological Hx Reported Smoking Status: Former smoker Past Alcohol Use History: None Reported Past Drug Use History: None Reported - Past Family History Mother Family Medical History: Dementia Additional Family Medical History / Comment(s): ALZHEIMERS Father Family Medical History: No Reported History Additional Family Medical History / Comment(s): Pt states his father was healthy Medications and Allergies Home Medications Medication Instructions Recorded Confirmed Type Tamsulosin HCl [Flomax] 0.4 mg PO DAILY@0800 02/14/18 02/10/23 History Pantoprazole Sodium [Protonix] 40 mg PO DAILY@0600 10/20/22 02/10/23 History Albuterol Inhaler [Ventolin Hfa 2 puff INHALATION RT-Q6H 10/28/22 02/10/23 History Inhaler] Apixaban [Eliquis] 2.5 mg PO BID@0800,1700 10/28/22 02/10/23 History Aspirin 81 mg PO DAILY@1700 10/28/22 02/10/23 History Ensure Enlive 237 ml PO TID@0800,1200,1700 10/28/22 02/10/23 History Eucerin Advanced Repair Cream 1 applic TOPICAL DAILY 10/28/22 02/10/23 History Eucerin Advanced Repair Cream 1 applic TOPICAL DAILY PRN 10/28/22 02/10/23 History Na Phos,M-B/Na Phos,Di-Ba [Fleet 133 ml RECTAL DAILY PRN 10/28/22 02/10/23 History Adult] bisacodyL [Dulcolax] 10 mg RECTAL DAILY PRN 10/28/22 02/10/23 History Amiodarone [Cordarone] 200 mg PO BID@0800,1700 12/14/22 02/10/23 History HYDROcodone/APAP 5-325MG [[place] 1 tab PO Q6HR PRN 3 Days #12 tab 12/25/22 02/10/23 Rx 5-325] Ferrous Sulfate [Iron (65 MG 325 mg PO DAILY@1700 01/09/23 02/10/23 History Elemental)] Lactulose 30 gm PO DAILY@0800 01/09/23 02/10/23 History Metoprolol Succinate (ER) [Toprol 12.5 mg PO DAILY@0800 01/09/23 02/10/23 History XL] Multivitamins, Thera [Multivitamin 1 tab PO DAILY@1700 01/09/23 02/10/23 History (formulary)] Thiamine [Vitamin B-1] 100 mg PO BID@0800,1700 01/09/23 02/10/23 History polyethylene glycoL 3350 [Miralax] 17 gm PO DAILY@0800 01/09/23 02/10/23 History DAPTOmycin [Cubicin] 400 mg IVPB Q48H each 02/05/23 02/10/23 Rx Cefepime [Maxipime] 2 gm IVPB Q12HR@0800,2100 02/10/23 02/10/23 History Folic Acid 1 mg PO DAILY@1700 02/10/23 02/10/23 History metroNIDAZOLE [Flagyl] 500 mg PO TID@0800,1400,209902/10/23 02/10/23 History Allergies Allergy/AdvReac Type Severity Reaction Status Date / Time memantine [From Namenda] AdvReac Nausea & Verified 02/10/23 20:10 Vomiting & Diarrhea Physical Exam Vitals: Vital Signs Temp Pulse Pulse Resp BP BP Pulse Ox 02/11/23 12:41 71 02/11/23 12:29 67 02/11/23 07:48 76 02/11/23 07:38 72 02/11/23 07:00 97.6 F 62 14 107/77 91 L 02/11/23 01:26 97.7 F 57 L 16 120/62 94 L 02/11/23 00:50 60 16 121/60 95 02/10/23 22:00 76 16 109/84 94 L 02/10/23 19:00 70 16 117/67 93 L 02/10/23 18:00 68 18 115/59 96 02/10/23 16:55 97.0 F L 75 16 106/73 96 Intake and Output 02/10/23 02/11/23 02/11/23 22:59 06:59 14:59 Intake Total 650 Output Total 350 Balance 650 -350 Intake: Intake, IV Titration 650 Amount Sodium Chloride 0.9% 1, 650 000 ml @ 130 mls/hr IV . Q7H42M [facility] Rx#:[id number] Output: Urine 350 Other: Voiding Method Indwelling Catheter Weight 63.503 kg 63.503 kg Patient is awake, comfortable, no acute distress He seems confused Examination of the heart S1 and S2 Examination of the lungs bilateral breath sounds are heard Abdomen is soft, and abdominal binder is present, colostomy bag appears empty. Results - Lab Results Most recent lab results Calcium 8.0 mg/dL (8.4-10.2) L 02/11/23 05:54 02/11/23 05:54 02/11/23 05:54 Assessment and Plan Assessment: 1. Acute kidney injury most likely hemodynamic ATN and recovering acute kidney injury from vancomycin toxicity in the first week of January 2023 with serum creatinine had peaked at 3.59 mg/dL. Serum creatinine improved to 2.5 on 02/05/2023. No nephrotoxic agents noted. He appears hypovolemic. Patient has indwelling Carranza catheter. Blood pressure is low. Patient will be maintained on IV fluids. 2. 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 Left lower extremity wounds and cellulitis maintained on daptomycin 4. Urine retention with chronic indwelling Carranza catheter for about 2 months now Plan: Continue IV fluids Repeat labs in a.m. Avoid nephrotoxic agents.
[2023-02-11 13:42] VITALS: BMI 23.3
[2023-02-11] MEDS ORDERED: FERROUS SULFATE 325 MG TAB PO SCH (17:00)
[2023-02-11] MEDS ORDERED: ASPIRIN 81 MG PO SCH (17:00)
[2023-02-11] MEDS ORDERED: FOLIC ACID 1 MG TAB PO SCH (17:00)
[2023-02-11] MEDS ORDERED: MULTIVITAMINS, THERA 1 EACH TAB PO SCH (17:00)
[2023-02-11 20:07] VITALS: RESP 16
[2023-02-11] MEDS: CEFEPIME 1 GM in SODIUM CHLORIDE 0.9% 50 ML IVPB SCH (20:36)
[2023-02-12] MEDS: ALBUTEROL NEBULIZED 2.5 MG/3 ML INHALATION SCH ×3 (01:27→12:46)
[2023-02-12] MEDS: SODIUM CHLORIDE 0.9% 1,000 ML IV SCH ×2 (01:43→09:15)
[2023-02-12] MEDS ORDERED: FAMOTIDINE 20 MG TAB PO SCH (09:00)
[2023-02-12] MEDS: AMIODARONE 200 MG TAB PO SCH (09:14)
[2023-02-12] MEDS: METOPROLOL SUCCINATE (ER) 25 MG TAB.ER.24H PO SCH (09:14)
[2023-02-12] MEDS: THIAMINE 100 MG TAB PO SCH (09:14)
[2023-02-12] MEDS: CEFEPIME 1 GM in SODIUM CHLORIDE 0.9% 50 ML IVPB SCH (09:14)
[2023-02-12] MEDS: metroNIDAZOLE 500 MG TAB PO SCH (09:14)
[2023-02-12] MEDS: TAMSULOSIN 0.4 MG CAP.ER.24H PO SCH (09:14)
[2023-02-12] MEDS: LACTULOSE 20 GM/30 ML CUP PO SCH (09:14)
[2023-02-12] MEDS: polyethylene glycoL 3350 17 GM POWD.PACK PO SCH (09:14)
--- NOTE | 2023-02-12 13:20 | P.PN ---
Subjective Progress Note Date: 02/12/23 CHIEF COMPLAINT: Prolapsed colostomy HISTORY OF PRESENT ILLNESS: Patient's colostomy has prolapsed again noted this morning with about 5 inches prolapsed. There is a small amount of stool noted. Patient is sitting up at bedside chair. He denies any abdominal pain. He is tolerating clear liquids. Afebrile. WBC 8.8 Patient seen and examined with Dr. Amin PHYSICAL EXAM: VITAL SIGNS: Reviewed. GENERAL: Well-developed in no acute distress. ABDOMEN: Soft. Nondistended. Nontender. Prolapsed colostomy about 5 inches with stool noted in colostomy bag NEUROLOGIC: Alert and oriented. Cranial nerves II through XII grossly intact. ASSESSMENT: 1. Prolapsed colostomy 2. 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 PLAN: -Advance diet to regular -Patient can be discharged from surgical standpoint. There is no evidence of o bstruction. Patient has stool noted in the colostomy bag -No plans for surgical intervention Physician Supervisor Forming Department note has been reviewed by physician. Signing provider agrees with the documented findings, assessment, and plan of care. Objective - Vital Signs Vital signs: Vital Signs Temp 97.6 F 02/12/23 07:40 Pulse 63 02/12/23 07:40 Resp 16 02/12/23 07:40 BP 113/67 02/12/23 07:40 Pulse Ox 98 02/12/23 07:40 FiO2 Intake & Output 02/11/23 02/12/23 02/12/23 18:59 06:59 18:59 Intake Total 360 1780 Output Total 2250 400 Balance -1890 1380 Weight 63.503 kg Intake: Intake, IV Titration 1660 Amount Cefepime 2 gm In Sodium 100 Chloride 0.9% 100 ml @ 200 mls/hr IVPB Q12HR [facility] Rx#:[id number] Sodium Chloride 0.9% 1, 1560 000 ml @ 130 mls/hr IV . Q7H42M [facility] Rx#:[id number] Oral 360 120 Output: Urine 2250 400 Other: Voiding Method Indwelling Catheter Indwelling Catheter Indwelling Catheter - Labs CBC & Chem 7: 02/11/23 05:54 02/11/23 05:54
--- NOTE | 2023-02-12 13:59 | P.DS ---
Providers Date of admission: 02/11/23 20:21 Expected date of discharge: 02/12/23 Attending physician: Felix Houser Consults: 02/10/23 22:01 Consult Physician Routine Consulting Provider: David Morocho Consult Reason/Comments: VALERI Do you want consulting provider notified?: Yes 02/10/23 23:26 Consult Physician Routine Consulting Provider: Polo Amin Consult Reason/Comments: colostomy prolapse Do you want consulting provider notified?: Yes 02/12/23 13:05 Consult to Palliative Care Routine Consulting Provider: Kassie Pride Consult Reason/Comments: Readmissions Do you want consulting provider notified?: Already Contacted Primary care physician: Domingo Silva Hospital Course: Final diagnosis 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 Patient will follow-up with Dr. Mcallister in the outpatient setting upon discharge. Patient is to continue with IV antibiotics per ID recommendations and to be completed March 01 and recommend close outpatient follow-up with infectious disease as well as general surgery as scheduled. Total time taken is greater than 35 minutes. Hospital course This is a 87-year-old male who was recently admitted with concerns for colonic prolapse in the ostomy and was evaluated by general surgery. Stoma reduced on its own and patient is having stool and most likely functional and recommend continue monitoring for stool output. No surgical interventions planned at this time and recommend outpatient follow-up with general surgery. Patient with continued chronic kidney disease and kidney functions elevated with nephrology following would recommend outpatient follow-up with labs of CBC BMP in the next 2-3 days. Patient is no code and would also recommend palliative care. Patient is high risk for multiple hospitalizations over these last few months due to his significant comorbidities. Please refer to other consultation notes for further HPI. Currently no reports of chest pain, shortness of breath, or palpitations. Patient is afebrile. No reports of nausea or vomiting and patient is tolerating diet. Patient will be going to [facility]. Guarded prognosis. High risk for readmissions. Physical exam: Gen: This is a 87-year-old male who is awake, alert and oriented 3, thin built, elderly appearing HEENT: Head is atraumatic, normocephalic. Pupils equal, round. Sclerae is anicteric. NECK: Supple. No JVD. No lymphadenopathy. No thyromegaly. LUNGS: Diminished breath sounds bilaterally with no wheezes or rhonchi. No intercostal retractions. HEART: S1, S2 are muffled ABDOMEN: Soft. Bowel sounds are present. No masses. No tenderness. Stool noted in the ostomy and stoma is somewhat protruded although is functioning EXTREMITIES: No pedal edema. No calf tenderness. NEUROLOGICAL: Patient is awake, alert and oriented x3. Cranial nerves 2 through 12 are grossly intact. Diffusely weak Please refer to medication reconciliation sheet for a list of medications. The impression and plan of care has been dictated by Edith Garcia, Nurse Practitioner as directed. Dr. Mik MD I have performed a history and examination and MDM of this patient, discussed the same with the dictator, and agree with the dictator's assessment and plan as written ,documented as a scribe. Based on total visit time, I have performed more than 50% of the visit. Patient Condition at Discharge: Fair Plan - Discharge Summary Discharge Rx Participant: No New Discharge Prescriptions: New Famotidine [Pepcid] 20 mg PO DAILY tab Acetaminophen Tab [Tylenol] 650 mg PO Q6HR PRN tab PRN Reason: Mild Pain Or Fever > 100.5 Continue Tamsulosin HCl [Flomax] 0.4 mg PO DAILY@0800 Pantoprazole Sodium [Protonix] 40 mg PO DAILY@0600 Albuterol Inhaler [Ventolin Hfa Inhaler] 2 puff INHALATION RT-Q6H bisacodyL [Dulcolax] 10 mg RECTAL DAILY PRN PRN Reason: Constipation Ensure Enlive 237 ml PO TID@0800,1200,1700 Apixaban [Eliquis] 2.5 mg PO BID@0800,1700 Eucerin Advanced Repair Cream 1 applic TOPICAL DAILY Aspirin 81 mg PO DAILY@1700 polyethylene glycoL 3350 [Miralax] 17 gm PO DAILY@0800 Multivitamins, Thera [Multivitamin (formulary)] 1 tab PO DAILY@1700 Metoprolol Succinate (ER) [Toprol XL] 12.5 mg PO DAILY@0800 Lactulose 30 gm PO DAILY@0800 DAPTOmycin [Cubicin] 400 mg IVPB Q48H each metroNIDAZOLE [Flagyl] 500 mg PO TID@0800,1400,2100 HYDROcodone/APAP 5-325MG [[place] 5-325] 1 tab PO Q6HR PRN 3 Days #6 tab PRN Reason: Pain Na Phos,M-B/Na Phos,Di-Ba [Fleet Adult] 133 ml RECTAL DAILY PRN PRN Reason: Constipation Eucerin Advanced Repair Cream 1 applic TOPICAL DAILY PRN PRN Reason: Dry Skin Amiodarone [Cordarone] 200 mg PO BID@0800,1700 Thiamine [Vitamin B-1] 100 mg PO BID@0800,1700 Ferrous Sulfate [Iron (65 MG Elemental)] 325 mg PO DAILY@1700 Folic Acid 1 mg PO DAILY@1700 Changed Cefepime [Maxipime] 1 gm IVPB Q12HR@0800,2100 #0 Discharge Medication List Tamsulosin HCl [Flomax] 0.4 mg PO DAILY@0800 02/14/18 [History] Pantoprazole Sodium [Protonix] 40 mg PO DAILY@0600 10/20/22 [History] Albuterol Inhaler [Ventolin Hfa Inhaler] 2 puff INHALATION RT-Q6H 10/28/22 [History] Apixaban [Eliquis] 2.5 mg PO BID@0800,1700 10/28/22 [History] Aspirin 81 mg PO DAILY@1700 10/28/22 [History] Ensure Enlive 237 ml PO TID@0800,1200,1700 10/28/22 [History] Eucerin Advanced Repair Cream 1 applic TOPICAL DAILY 10/28/22 [History] Eucerin Advanced Repair Cream 1 applic TOPICAL DAILY PRN 10/28/22 [History] Na Phos,M-B/Na Phos,Di-Ba [Fleet Adult] 133 ml RECTAL DAILY PRN 10/28/22 [History] bisacodyL [Dulcolax] 10 mg RECTAL DAILY PRN 10/28/22 [History] Amiodarone [Cordarone] 200 mg PO BID@0800,1700 12/14/22 [History] Ferrous Sulfate [Iron (65 MG Elemental)] 325 mg PO DAILY@17001/09/23 [History] Lactulose 30 gm PO DAILY@0800 01/09/23 [History] Metoprolol Succinate (ER) [Toprol XL] 12.5 mg PO DAILY@0800 01/09/23 [History] Multivitamins, Thera [Multivitamin (formulary)] 1 tab PO DAILY@1700 01/09/23 [History] Thiamine [Vitamin B-1] 100 mg PO BID@0800,1700 01/09/23 [History] polyethylene glycoL 3350 [Miralax] 17 gm PO DAILY@0800 01/09/23 [History] DAPTOmycin [Cubicin] 400 mg IVPB Q48H each 02/05/23 [Rx] Folic Acid 1 mg PO DAILY@1700 02/10/23 [History] metroNIDAZOLE [Flagyl] 500 mg PO TID@0800,1400,2100 02/10/23 [History] Acetaminophen Tab [Tylenol] 650 mg PO Q6HR PRN tab 02/12/23 [Rx] Cefepime [Maxipime] 1 gm IVPB Q12HR@0800,2100 #0 02/12/23 [Rx] Famotidine [Pepcid] 20 mg PO DAILY tab 02/12/23 [Rx] HYDROcodone/APAP 5-325MG [Denver 5-325] 1 tab PO Q6HR PRN 3 Days #6 tab 02/12/23 [Rx] Follow up Appointment(s)/Referral(s): Josh Mcallister MD [STAFF PHYSICIAN] - 1-2 days Polo Amin MD [STAFF PHYSICIAN] - 1 Week Activity/Diet/Wound Care/Special Instructions: Patient is going to [facility] As mentioned on previous admission antibiotics to be completed 03/01/2023 Activity as tolerated Continue with regular diet Follow-up with general surgery outpatient Continue antibiotics as previously ordered to complete the course Recommend follow-up CBC, BMP in the next 2-3 days Recommend follow-up with nephrology outpatient Consider palliative care in the outpatient setting Discharge Disposition: TRANSFER TO SNF/ECF
--- NOTE | 2023-02-12 14:06 | P.PN ---
Subjective Patient is seen for follow-up for acute kidney injury. He was admitted to the hospital with prolapse of colostomy. No plans on surgical intervention. Renal function has been improving from his last episode of acute kidney injury related to ATN and vancomycin toxicity. Serum creatinine was 2.9 yesterday. Objective - Vital Signs Vital signs: Vital Signs Temp 97.6 F 02/12/23 07:40 Pulse 63 02/12/23 12:55 Resp 16 02/12/23 07:40 BP 113/67 02/12/23 07:40 Pulse Ox 98 02/12/23 07:40 FiO2 Intake & Output 02/11/23 02/12/23 02/12/23 18:59 06:59 18:59 Intake Total 360 1780 Output Total 2250 400 Balance -1890 1380 Weight 63.503 kg Intake: Intake, IV Titration 1660 Amount Cefepime 2 gm In Sodium 100 Chloride 0.9% 100 ml @ 200 mls/hr IVPB Q12HR [facility] Rx#:[id number] Sodium Chloride 0.9% 1, 1560 000 ml @ 130 mls/hr IV . Q7H42M [facility] Rx#:[id number] Oral 360 120 Output: Urine 2250 400 Other: Voiding Method Indwelling Catheter Indwelling Catheter Indwelling Catheter - Exam Patient is awake, comfortable, no acute distress He seems confused Examination of the heart S1 and S2 Examination of the lungs bilateral breath sounds are heard Abdomen is soft, and abdominal binder is present, colostomy bag appears empty. Examination of lower extremities shows edema 1+ bilaterally - Labs CBC & Chem 7: 02/11/23 05:54 02/11/23 05:54 Labs: Microbiology - Last 24 Hours (Table) 02/10/23 22:15 Blood Culture - Preliminary Blood 02/10/23 22:00 Blood Culture - Preliminary Blood Assessment and Plan Assessment: 1. Acute kidney injury most likely hemodynamic ATN and recovering acute kidney injury from vancomycin toxicity in the first week of January 2023 with serum creatinine had peaked at 3.59 mg/dL. Serum creatinine improved to 2.5 on 02/05/2023. No nephrotoxic agents noted. He appears hypovolemic. Patient has indwelling Carranza catheter. Blood pressure was low. Now improved. 2. 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 Left lower extremity wounds and cellulitis maintained on daptomycin 4. 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
[2023-02-12 14:58] VITALS: BP 102/53; PULSE 56; TEMP 98.4
[2023-02-12] MEDS ORDERED: DAPTOmycin 500 MG VIAL IVPB SCH (15:00)
[2023-02-12 22:39] LABS: BUN/Creat Ratio 15.93 Ratio (12.00-20.00); Blood Urea Nitrogen 46.2 mg/dL (9.0-27.0); Calcium 8.6 mg/dL (8.7-10.3); Carbon Dioxide 17.9 mmol/L (21.6-31.8); Chloride 110 mmol/L (96-109); Glucose 92 mg/dL (70-110); Potassium 5.5 mmol/L (3.5-5.5); Sodium 138 mmol/L (135-145)
== END 2023-02-12 16:53 | DRG 393 ==
LOC: EC 16:53 → 6NMEDSUR 23:28 → 5NMEDONC 02-11 00:43 → OBSVTOIN 02-11 20:21
PROVIDERS: ADMIT Hospitalist; ATTEND Hospitalist
DX: K94.09 Other complications of colostomy (principal); N17.0 Acute kidney failure with tubular necrosis; I69.351 Hemiplegia and hemiparesis following cerebral infarction affecting right dominant side; L03.116 Cellulitis of left lower limb; L97.429 Non-pressure chronic ulcer of left heel and midfoot with unspecified severity; D63.1 Anemia in chronic kidney disease; E78.5 Hyperlipidemia, unspecified; E86.1 Hypovolemia; I48.91 Unspecified atrial fibrillation; N18.9 Chronic kidney disease, unspecified; I12.9 Hypertensive chronic kidney disease with stage 1 through stage 4 chronic kidney disease, or unspecified chronic kidney disease; T36.8X5A Adverse effect of other systemic antibiotics, initial encounter; N40.1 Benign prostatic hyperplasia with lower urinary tract symptoms; I69.328 Other speech and language deficits following cerebral infarction; R33.8 Other retention of urine; Z79.82 Long term (current) use of aspirin; Y84.8 Other medical procedures as the cause of abnormal reaction of the patient, or of later complication, without mention of misadventure at the time of the procedure; Z79.899 Other long term (current) drug therapy; Z79.01 Long term (current) use of anticoagulants; X58.XXXA Exposure to other specified factors, initial encounter; Z87.19 Personal history of other diseases of the digestive system; Z86.718 Personal history of other venous thrombosis and embolism; Z96.1 Presence of intraocular lens; Z98.1 Arthrodesis status; Z98.41 Cataract extraction status, right eye; Z86.711 Personal history of pulmonary embolism; Z82.0 Family history of epilepsy and other diseases of the nervous system; Z86.14 Personal history of Methicillin resistant Staphylococcus aureus infection; Z88.8 Allergy status to other drugs, medicaments and biological substances; Z86.010 Personal history of colon polyps; Z87.891 Personal history of nicotine dependence
CPT/HCPCS: 36415; 74019; 80048; 80053; 83605; 85025; 87040; 94640; 96361; 96365; 96366; 96375; 99285

== ENCOUNTER 2023-02-13 20:21 | Emergency (ER) | payer MEDICARE ==
[2023-02-13 20:37] VITALS: RESP 18; TEMP 98.1
[2023-02-13] MEDS ORDERED: ONDANSETRON ODT 4 MG TAB PO STA (23:11)
--- NOTE | 2023-02-14 00:08 | XR ---
EXAM: XR Abdomen, 1 View CLINICAL HISTORY: ITS.REASON XR Reason: reduced hernia TECHNIQUE: Frontal supine view of the abdomen/pelvis. COMPARISON: Abdomen radiograph 02/10/2023. CT abdomen and pelvis 01/13/2023. FINDINGS: Lower thorax: Cardiomegaly. Gastrointestinal tract: No dilated bowel. Paucity of the abdominal bowel gas. Bones/joints: Degenerative changes in the spine. IMPRESSION: Paucity of abdominal bowel gas. No dilated bowel.
--- NOTE | 2023-02-14 00:18 | ED ---
General Adult HPI - General Chief complaint: Recheck/Abnormal Lab/Rx Stated complaint: Herniated colostomy stoma Time Seen by Provider: 02/13/23 20:30 Source: patient, EMS Mode of arrival: EMS Limitations: no limitations - History of Present Illness Initial comments: 87-year-old male presents to the emergency department from [facility] for prolapsed colostomy. Patient has had recurrent issues with his colostomy. He was seen in the emergency department on the for similar complaint. Transfer record states that they were checking on the patient when they noted that his stoma was protruding approximately 9 cm. They could not fit his colostomy supplies round the ostomy. Patient transferred to the hospital for further management. He did have surgery in November for this complaint by Dr. Amin. Patient denies any abdominal pain at this time. No other alleviating, precipitating or modifying factors - Related Data Home Medications Medication Instructions Recorded Confirmed Tamsulosin HCl [Flomax] 0.4 mg PO DAILY@0800 02/14/18 02/18/23 Pantoprazole Sodium [Protonix] 40 mg PO DAILY@0600 10/20/22 02/18/23 Albuterol Inhaler [Ventolin Hfa 2 puff INHALATION RT-Q6H 10/28/22 02/18/23 Inhaler] Apixaban [Eliquis] 2.5 mg PO BID@0800,1700 10/28/22 02/18/23 Aspirin 81 mg PO DAILY@1200 10/28/22 02/18/23 Ensure Enlive 237 ml PO TID@0800,1200,1700 10/28/22 02/18/23 Eucerin Advanced Repair Cream 1 applic TOPICAL DAILY 10/28/22 02/18/23 Eucerin Advanced Repair Cream 1 applic TOPICAL DAILY PRN 10/28/22 02/18/23 Na Phos,M-B/Na Phos,Di-Ba [Fleet 133 ml RECTAL DAILY PRN 10/28/22 02/18/23 Adult] bisacodyL [Dulcolax] 10 mg RECTAL DAILY PRN 10/28/22 02/18/23 Amiodarone [Cordarone] 200 mg PO BID@0800,1700 12/14/22 02/18/23 Ferrous Sulfate [Iron (65 MG 325 mg PO DAILY@1700 01/09/23 02/18/23 Elemental)] Lactulose 30 gm PO DAILY@0800 01/09/23 02/18/23 Metoprolol Succinate (ER) [Toprol 12.5 mg PO DAILY@0800 01/09/23 02/18/23 XL] Multivitamins, Thera [Multivitamin 1 tab PO DAILY@1700 01/09/23 02/18/23 (formulary)] Thiamine [Vitamin B-1] 100 mg PO BID@0800,1700 01/09/23 02/18/23 polyethylene glycoL 3350 [Miralax] 17 gm PO DAILY@0800 01/09/23 02/18/23 Folic Acid 1 mg PO DAILY@1700 02/10/23 02/18/23 metroNIDAZOLE [Flagyl] 500 mg PO TID@0800,1400,2100 02/10/23 02/18/23 Collagenase [Santyl Ointment] 1 applic TOPICAL DAILY 02/18/23 02/18/23 Collagenase [Santyl Ointment] 1 applic TOPICAL DAILY PRN 02/18/23 02/18/23 Magnesium Hydroxide [Milk of 7,200 mg PO Q2D PRN 02/18/23 02/18/23 Magnesia Concentrate] Previous Rx's Medication Instructions Recorded DAPTOmycin [Cubicin] 400 mg IVPB Q48H each 02/05/23 Acetaminophen Tab [Tylenol] 650 mg PO Q6HR PRN tab 02/12/23 Cefepime [Maxipime] 1 gm IVPB Q12HR@0800,2100 #0 02/12/23 Famotidine [Pepcid] 20 mg PO DAILY tab 02/12/23 HYDROcodone/APAP 5-325MG [[place] 1 tab PO Q6HR PRN 3 Days #6 tab 02/12/23 5-325] Allergies Allergy/AdvReac Type Severity Reaction Status Date / Time memantine [From Namenda] AdvReac Nausea & Verified 02/18/23 10:27 Vomiting & Diarrhea Review of Systems ROS Statement: Those systems with pertinent positive or pertinent negative responses have been documented in the HPI. ROS Other: All systems not noted in ROS Statement are negative. 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 History of Any Multi-Drug Resistant Organisms: MRSA Date of last positivie culture/infection: 01/14/23 MDRO Source:: Left Heel Past Surgical History: Bowel Resection Additional Past Surgical History / Comment(s): 2020 bowel resection/colostomy, CVA in 1955 which made need for R elbow surgery/R ankle fusion, post cva surgery on back to remove blood clot, bilateral eye lens implants. Past Anesthesia/Blood Transfusion Reactions: No Reported Reaction Additional Past Anesthesia/Blood Transfusion Reaction / Comment(s): Pt believes he has received blood in past without reaction. Past Psychological History: No Psychological Hx Reported Smoking Status: Former smoker Past Alcohol Use History: None Reported Past Drug Use History: None Reported - Past Family History Mother Family Medical History: Dementia Additional Family Medical History / Comment(s): ALZHEIMERS Father Family Medical History: No Reported History Additional Family Medical History / Comment(s): Pt states his father was healthy General Exam Limitations: no limitations General appearance: alert, in no apparent distress Head exam: Present: atraumatic, normocephalic, normal inspection Eye exam: Present: normal appearance, PERRL, EOMI. Absent: scleral icterus, conjunctival injection, periorbital swelling ENT exam: Present: normal exam, mucous membranes moist Neck exam: Present: normal inspection. Absent: tenderness, meningismus, lymphadenopathy Respiratory exam: Present: normal lung sounds bilaterally. Absent: respiratory distress, wheezes, rales, rhonchi, stridor Cardiovascular Exam: Present: regular rate, normal rhythm, normal heart sounds. Absent: systolic murmur, diastolic murmur, rubs, gallop, clicks GI/Abdominal exam: Present: soft, normal bowel sounds, hernia (parastomal - colostomy on right side). Absent: distended, tenderness, guarding, rebound, rigid Extremities exam: Present: normal inspection, full ROM, normal capillary refill. Absent: tenderness, pedal edema, joint swelling, calf tenderness Back exam: Present: normal inspection Neurological exam: Present: alert, CN II-XII intact Psychiatric exam: Present: normal affect, normal mood Skin exam: Present: warm, dry, intact, normal color. Absent: rash Course Vital Signs 02/13/23 02/13/23 02/14/23 20:22 23:43 00:43 Temperature 98.1 F Pulse Rate 60 72 74 Respiratory 18 18 18 Rate Blood Pressure 117/54 98/61 101/63 O2 Sat by Pulse 94 L 98 96 Oximetry Medical Decision Making - Medical Decision Making Was pt. sent in by a medical professional or institution (, JOSHUA, PROFESSOR OF PSYCHOLOGY, urgent care, hospital, or long-term...) When possible be specific @ -eliel Did you speak to anyone other than the patient for history (EMS, parent, family, police, friend...)? What history was obtained from this source @ -EMS Did you review nursing and triage notes (agree or disagree)? Why? @ -I reviewed and agree with nursing and triage notes Were old charts reviewed (outside hosp., previous admission, EMS record, old EK G, old radiological studies, urgent care reports/EKG's, long-term records)? Report findings @ -old charts were reviewed - patient recently admitted for same - view operative report from november Differential Diagnosis (chest pain, altered mental status, abdominal pain women, abdominal pain men, vaginal bleeding, weakness, fever, dyspnea, syncope, headache, dizziness, GI bleed, back pain, seizure, CVA, palpatations, mental health, musculoskeletal)? @ -stragulated hernia, incarcerated hernia, gi bleed EKG interpreted by me (3pts min.). @ no X-rays interpreted by me (1pt min.). @ -yes, no acute process CT interpreted by me (1pt min.). @ -not done U/S interpreted by me (1pt. min.). @ -None done What testing was considered but not performed or refused? (CT, X-rays, U/S, labs)? Why? @ -None What meds were considered but not given or refused? Why? @ -None Did you discuss the management of the patient with other professionals (professionals i.e. , JOSHUA, PROFESSOR OF PSYCHOLOGY, lab, RT, psych nurse, older adult social work specialist, inbound ingredient logistics specialist, teacher, training systems officer, geriatric case manager)? Give summary @ -yes, dr. rico in regards to admission for surgical consult or no Was smoking cessation discussed for >3mins.? @ -No Was critical care preformed (if so, how long)? @ -No Were there social determinants of health that impacted care today? How? (Homelessness, low income, unemployed, alcoholism, drug addiction, trans portation, low edu. Level, literacy, decrease access to med. care, [facility], rehab)? @ -from [facility] Was there de-escalation of care discussed even if they declined (Discuss DNR or withdrawal of care, Hospice)? DNR status @ -No What co-morbidities impacted this encounter? (DM, HTN, Smoking, COPD, CAD, Cancer, CVA, ARF, Chemo, Hep., AIDS, mental health diagnosis, sleep apnea, morbid obesity)? @ -bowel resection with colostomy Was patient admitted / discharged? Hospital course, mention meds given and route, prescriptions, significant lab abnormalities, going to OR and other pertinent info. @ -Upon arrival patient is placed into hallway 26. Evaluation does demonstrate a prolapsed stoma. Patient is moved into room 28. I did place sugar on the site. I then used gentle pressure to reduce the hernia. Patient is placed in an abdominal binder. I spoke with Dr. Rico. Patient will be discharged. Needs to follow up in office for surgical evaluation. Return for any new or worsening symptoms. Patient discharged in stable condition Undiagnosed new problem with uncertain prognosis? @ -no Drug Therapy requiring intensive monitoring for toxicity (Heparin, Nitro, Insulin, Cardizem)? @ -No Were any procedures done? @ -hernia re Diagnosis/symptom? @ -acute encephalopathy, acute/chronic resp failure, CAP Acute, or Chronic, or Acute on Chronic? @ -acute Uncomplicated (without systemic symptoms) or Complicated (systemic symptoms)? @ -reduced hernia Side effects of treatment? @ -no Exacerbation, Progression, or Severe Exacerbation? @ -No Poses a threat to life or bodily function? How? (Chest pain, [place], [place], pneumonia, PE, COPD, DKA, ARF, appy, cholecystitis, CVA, Diverticulitis, Homicidal, Suicidal, threat to staff... and all critical care pts) @ -no Disposition Clinical Impression: Parastomal hernia Disposition: HOME SELF-CARE Condition: Stable Instructions (If sedation given, give patient instructions): Ventral Hernia (ED) Additional Instructions: Your hernia was reduced. Follow up with the surgeon for intermediate manager management. Is patient prescribed a controlled substance at d/c from ED?: No Referrals: Domingo Silva MD [Primary Care Provider] - 1-2 days Polo Amin MD [STAFF PHYSICIAN] - 1-2 days Time of Disposition: 00:17
[2023-02-14 00:24] VITALS: BP 101/63; PULSE 74
== END 2023-02-14 01:27 | disposition home or self-care (01) ==
LOC: EC 20:21
DX: K43.5 Parastomal hernia without obstruction or gangrene (principal); I48.91 Unspecified atrial fibrillation; I10 Essential (primary) hypertension; E78.5 Hyperlipidemia, unspecified; Z86.73 Personal history of transient ischemic attack (TIA), and cerebral infarction without residual deficits; Z86.718 Personal history of other venous thrombosis and embolism; Z87.891 Personal history of nicotine dependence; Z88.8 Allergy status to other drugs, medicaments and biological substances; Z79.01 Long term (current) use of anticoagulants; Z79.899 Other long term (current) drug therapy; Z79.82 Long term (current) use of aspirin
CPT/HCPCS: 74018; 99285

== ENCOUNTER 2023-02-18 09:07 | Inpatient (IN) | payer MEDICARE ==
--- NOTE | 2023-02-18 10:18 | ED ---
General Adult HPI - General Chief complaint: Shortness of Breath Stated complaint: JON Time Seen by Provider: 02/18/23 09:25 Source: patient, EMS Mode of arrival: EMS Limitations: no limitations - History of Present Illness Initial comments: Dictation was produced using [employer] dictation software. please excuse any grammatical, word or spelling errors. Chief Complaint: 87-year-old male presents emergency department for alleged hypoxia History of Present Illness: he is 87-year-old male presents emergency department for hypoxic episode. Apparently patient had his oxygen checked earlier today and was found to be in the mid 80s. EMS was called patient brought to the ER. Patient has no complaints. Patient believes that he is here in emergency department for decubitus ulcers. Denies any chest pain. He denies any shortness of breath he denies any nausea vomiting. Patient is placed on nasal cannula oxygen and however apparently he was mouth breathing stools hypoxic. Ultimately ended being placed on a nonrebreather. The ROS documented in this emergency department record has been reviewed and confirmed by me. Those systems with pertinent positive or negative responses have been documented in the HPI. All other systems are other negative and/or noncontributory. - Related Data Home Medications Medication Instructions Recorded Confirmed Tamsulosin HCl [Flomax] 0.4 mg PO DAILY@0800 02/14/18 02/18/23 Pantoprazole Sodium [Protonix] 40 mg PO DAILY@0600 10/20/22 02/18/23 Albuterol Inhaler [Ventolin Hfa 2 puff INHALATION RT-Q6H 10/28/22 02/18/23 Inhaler] Apixaban [Eliquis] 2.5 mg PO BID@0800,1700 10/28/22 02/18/23 Aspirin 81 mg PO DAILY@1200 10/28/22 02/18/23 Ensure Enlive 237 ml PO TID@0800,1200,1700 10/28/22 02/18/23 Eucerin Advanced Repair Cream 1 applic TOPICAL DAILY 10/28/22 02/18/23 Eucerin Advanced Repair Cream 1 applic TOPICAL DAILY PRN 10/28/22 02/18/23 Na Phos,M-B/Na Phos,Di-Ba [Fleet 133 ml RECTAL DAILY PRN 10/28/22 02/18/23 Adult] bisacodyL [Dulcolax] 10 mg RECTAL DAILY PRN 10/28/22 02/18/23 Amiodarone [Cordarone] 200 mg PO BID@0800,1700 12/14/22 02/18/23 Ferrous Sulfate [Iron (65 MG 325 mg PO DAILY@1700 01/09/23 02/18/23 Elemental)] Lactulose 30 gm PO DAILY@0800 01/09/23 02/18/23 Metoprolol Succinate (ER) [Toprol 12.5 mg PO DAILY@0800 01/09/23 02/18/23 XL] Multivitamins, Thera [Multivitamin 1 tab PO DAILY@1700 01/09/23 02/18/23 (formulary)] Thiamine [Vitamin B-1] 100 mg PO BID@0800,1700 01/09/23 02/18/23 polyethylene glycoL 3350 [Miralax] 17 gm PO DAILY@0800 01/09/23 02/18/23 Folic Acid 1 mg PO DAILY@1700 02/10/23 02/18/23 metroNIDAZOLE [Flagyl] 500 mg PO TID@0800,1400,2100 02/10/23 02/18/23 Collagenase [Santyl Ointment] 1 applic TOPICAL DAILY 02/18/23 02/18/23 Collagenase [Santyl Ointment] 1 applic TOPICAL DAILY PRN 02/18/23 02/18/23 Magnesium Hydroxide [Milk of 7,200 mg PO Q2D PRN 02/18/23 02/18/23 Magnesia Concentrate] Previous Rx's Medication Instructions Recorded DAPTOmycin [Cubicin] 400 mg IVPB Q48H each 02/05/23 Acetaminophen Tab [Tylenol] 650 mg PO Q6HR PRN tab 02/12/23 Cefepime [Maxipime] 1 gm IVPB Q12HR@0800,2100 #0 02/12/23 Famotidine [Pepcid] 20 mg PO DAILY tab 02/12/23 HYDROcodone/APAP 5-325MG [[place] 1 tab PO Q6HR PRN 3 Days #6 tab 02/12/23 5-325] Allergies Allergy/AdvReac Type Severity Reaction Status Date / Time memantine [From Namenda] AdvReac Nausea & Verified 02/18/23 10:27 Vomiting & Diarrhea Review of Systems ROS Statement: Those systems with pertinent positive or pertinent negative responses have been documented in the HPI. ROS Other: All systems not noted in ROS Statement are negative. 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 History of Any Multi-Drug Resistant Organisms: MRSA Date of last positivie culture/infection: 01/14/23 MDRO Source:: Left Heel Past Surgical History: Bowel Resection Additional Past Surgical History / Comment(s): 2020 bowel resection/colostomy, CVA in 1955 which made need for R elbow surgery/R ankle fusion, post cva surgery on back to remove blood clot, bilateral eye lens implants. Past Anesthesia/Blood Transfusion Reactions: No Reported Reaction Additional Past Anesthesia/Blood Transfusion Reaction / Comment(s): Pt believes he has received blood in past without reaction. Past Psychological History: No Psychological Hx Reported Smoking Status: Former smoker Past Alcohol Use History: None Reported Past Drug Use History: None Reported - Past Family History Mother Family Medical History: Dementia Additional Family Medical History / Comment(s): ALZHEIMERS Father Family Medical History: No Reported History Additional Family Medical History / Comment(s): Pt states his father was healthy General Exam - General Exam Comments Initial Comments: PHYSICAL EXAM: General Impression: Alert and oriented x3, not in acute distress HEENT: Normocephalic atraumatic, extra-ocular movements intact, pupils equal and reactive to light bilaterally, mucous membranes moist. Cardiovascular: Heart regular rate and rhythm Chest: Able to complete full sentences, no retractions, no tachypnea Abdomen: abdomen soft, non-tender, non-distended, no organomegaly Musculoskeletal: Pulses present and equal in all extremities, no peripheral edema Motor: no focal deficits noted Neurological: CN II-XII grossly intact, no focal motor or sensory deficits noted Skin: Decubitus ulcers of varying stages most severely of stage III Psych: Normal affect and mood Limitations: no limitations Course Vital Signs 02/18/23 02/18/23 02/18/23 09:15 10:55 12:36 Temperature 97.4 F L Pulse Rate 64 54 L 56 L Respiratory 20 18 20 Rate Blood Pressure 88/56 101/57 118/59 O2 Sat by Pulse 91 L 95 90 L Oximetry EKG Findings - EKG Comments: EKG Findings:: My EKG interpretation: Ventricular rate 58, A. fib, QRS 164, QTC 450. no QTC prolongation, no ST or T-wave changes noted. Overall, this EKG is unremarkable Medical Decision Making - Medical Decision Making Was pt. sent in by a medical professional or institution (, PA, HORSEBACK EXCAVATOR, urgent care, hospital, or retirement...) When possible be specific @ -longterm Did you speak to anyone other than the patient for history (EMS, parent, family, police, friend...)? What history was obtained from this source @ -EMS reports the patient hypoxic Did you review nursing and triage notes (agree or disagree)? Why? @ -I reviewed and agree with nursing and triage notes Were old charts reviewed (outside hosp., previous admission, EMS record, old EK G, old radiological studies, urgent care reports/EKG's, retirement records)? Report findings @ -Discharge summary from one week ago shows that patient was admitted for and colostomy prolapse Differential Diagnosis (chest pain, altered mental status, abdominal pain women, abdominal pain men, vaginal bleeding, musculoskeletal, weakness, fever, dyspnea, syncope, headache, dizziness, GI bleed, back pain, seizure, CVA, palpatations, mental health)? @ -Differential Dyspnea: Coronary syndrome, arrhythmia, tamponade, asthma, COPD, pulmonary embolism, pneumonia, pneumothorax, pulmonary effusion, anaphylaxis, diabetic ketoacidosis, flailed chest, pulmonary contusion, diaphragmatic rupture, anemia, neuromuscular, this is not meant to be an all-inclusive list. EKG interpreted by me (3pts min.). @ -See above X-rays interpreted by me (1pt min.). @ -Chest x-ray shows Cardiomegaly, pulmonary vascular congestion. CT interpreted by me (1pt min.). @ -None done U/S interpreted by me (1pt. min.). @ -None done What testing was considered but not performed or refused? (CT, X-rays, U/S, labs)? Why? @ -None What meds were considered but not given or refused? Why? @ -None Did you discuss the management of the patient with other professionals (professionals i.e. , PA, HORSEBACK EXCAVATOR, lab, RT, psych nurse, sr. social media & mobile manager, plastic panel installer, teacher, customs officer, major case detective)? Give summary @ -Imaging clinical presentation discussed with Dr. Moreno for admission Was smoking cessation discussed for >3mins.? @ -No Was critical care preformed (if so, how long)? @ -No Were there social determinants of health that impacted care today? How? (Homelessness, low income, unemployed, alcoholism, drug addiction, transportation, low edu. Level, literacy, decrease access to med. care, senior care, rehab)? @ -No Was there de-escalation of care discussed even if they declined (Discuss DNR or withdrawal of care, Hospice)? DNR status @ -No What co-morbidities impacted this encounter? (DM, HTN, Smoking, COPD, CAD, Cancer, CVA, ARF, Chemo, Hep., AIDS, mental health diagnosis, sleep apnea, morbid obesity)? @ -None Was patient admitted / discharged? Hospital course, mention meds given and route, prescriptions, significant lab abnormalities, going to OR and other pertinent info. @ -7-year-old male presents to the emergency department for hypoxic respiratory failure. Vital signs upon arrival shows 1% 4 L nasal cannula. Blood pressure stable. Initial blood pressure was diminished over this likely mild air. No cytosis of 18.1 likely secondary to stress leukocytosis. Metabolic panel shows acute kidney injury. Troponin elevated with elevated prematurity peptide of 44,000. Blood cultures pending. Patient does not have any symptoms of pneumonia. He'll be admitted consultation to cardiology. Undiagnosed new problem with uncertain prognosis? @ -No Drug Therapy requiring intensive monitoring for toxicity (Heparin, Nitro, Insulin, Cardizem)? @ -No Were any procedures done? @ -No Diagnosis/symptom? Acute, or Chronic, or Acute on Chronic? Uncomplicated (without systemic symptoms) or Complicated (systemic symptoms)? @ -1. Hypoxic respiratory failure Side effects of treatment? @ -No Exacerbation, Progression, or Severe Exacerbation? @ -No Poses a threat to life or bodily function? How? (Chest pain, [place], [place], pneumonia, PE, COPD, DKA, ARF, appy, cholecystitis, CVA, Diverticulitis, Homicidal, Suicidal, threat to staff... and all critical care pts) @ -yes - Lab Data Result diagrams: 02/18/23 09:45 02/18/23 09:45 Lab Results 02/18/23 02/18/23 02/18/23 Range/Units 09:45 09:45 09:45 WBC 18.1 H (3.8-10.6) k/uL RBC 3.34 L (4.30-5.90) m/uL Hgb 9.5 L (13.0-17.5) gm/dL Hct 30.4 L (39.0-53.0) % MCV 91.1 (80.0-100.0) fL MCH 28.4 (25.0-35.0) pg MCHC 31.2 (31.0-37.0) g/dL RDW 19.6 H (11.5-15.5) % Plt Count 261 (150-450) k/uL MPV 9.9 Neutrophils % 93 % Lymphocytes % 3 % Monocytes % 4 % Eosinophils % 0 % Basophils % 0 % Neutrophils # 16.8 H (1.3-7.7) k/uL Lymphocytes # 0.5 L (1.0-4.8) k/uL Monocytes # 0.7 (0-1.0) k/uL Eosinophils # 0.0 (0-0.7) k/uL Basophils # 0.0 (0-0.2) k/uL Hypochromasia Moderate Anisocytosis Slight PT 15.7 H (9.0-12.0) sec INR 1.6 H (<1.2) APTT 31.0 H (22.0-30.0) sec Sodium 137 (137-145) mmol/L Potassium 4.7 (3.5-5.1) mmol/L Chloride 114 H (98-107) mmol/L Carbon Dioxide 12 L (22-30) mmol/L Anion Gap 11 mmol/L BUN 50 H (9-20) mg/dL Creatinine 2.82 H (0.66-1.25) mg/dL Est GFR (CKD-EPI)AfAm 22 (>60 ml/min/1.73 sqM) Est GFR (CKD-EPI)NonAf 19 (>60 ml/min/1.73 sqM) Glucose 98 (74-99) mg/dL Calcium 8.0 L (8.4-10.2) mg/dL Total Bilirubin 0.7 (0.2-1.3) mg/dL AST 30 (17-59) U/L ALT 17 (4-49) U/L Alkaline Phosphatase 100 (38-126) U/L Troponin I (0.000-0.034) ng/mL NT-Pro-B Natriuret Pep pg/mL Total Protein 5.9 L (6.3-8.2) g/dL Albumin 2.4 L (3.5-5.0) g/dL 02/18/23 02/18/23 Range/Units 09:45 09:45 WBC (3.8-10.6) k/uL RBC (4.30-5.90) m/uL Hgb (13.0-17.5) gm/dL Hct (39.0-53.0) % MCV (80.0-100.0) fL MCH (25.0-35.0) pg MCHC (31.0-37.0) g/dL RDW (11.5-15.5) % Plt Count (150-450) k/uL MPV Neutrophils % % Lymphocytes % % Monocytes % % Eosinophils % % Basophils % % Neutrophils # (1.3-7.7) k/uL Lymphocytes # (1.0-4.8) k/uL Monocytes # (0-1.0) k/uL Eosinophils # (0-0.7) k/uL Basophils # (0-0.2) k/uL Hypochromasia Anisocytosis PT (9.0-12.0) sec INR (<1.2) APTT (22.0-30.0) sec Sodium (137-145) mmol/L Potassium (3.5-5.1) mmol/L Chloride (98-107) mmol/L Carbon Dioxide (22-30) mmol/L Anion Gap mmol/L BUN (9-20) mg/dL Creatinine (0.66-1.25) mg/dL Est GFR (CKD-EPI)AfAm (>60 ml/min/1.73 sqM) Est GFR (CKD-EPI)NonAf (>60 ml/min/1.73 sqM) Glucose (74-99) mg/dL Calcium (8.4-10.2) mg/dL Total Bilirubin (0.2-1.3) mg/dL AST (17-59) U/L ALT (4-49) U/L Alkaline Phosphatase (38-126) U/L Troponin I 0.042 H* (0.000-0.034) ng/mL NT-Pro-B Natriuret Pep 73797 pg/mL Total Protein (6.3-8.2) g/dL Albumin (3.5-5.0) g/dL Disposition Clinical Impression: Hypoxia, CHF (congestive heart failure) Disposition: ADMITTED IP TO THIS HOSP Condition: Fair Referrals: Domingo Silva MD [Primary Care Provider] - 1-2 days Decision Time: 11:30
[2023-02-18 10:23] LABS: INR 1.6 (<1.2); Prothrombin Time 15.7 sec (9.0-12.0)
[2023-02-18 10:26] LABS: ALT 17 U/L (4-49); AST 30 U/L (17-59); African American GFR (CKD) 22 (>60 ml/min/1.73 sqM); Albumin 2.4 g/dL (3.5-5.0); Alkaline Phosphatase 100 U/L (38-126); Anion Gap 11 mmol/L; Blood Urea Nitrogen 50 mg/dL (9-20); Carbon Dioxide 12 mmol/L (22-30); Chloride 114 mmol/L (98-107); Glucose 98 mg/dL (74-99); Non-African American GFR(CKD) 19 (>60 ml/min/1.73 sqM); Potassium 4.7 mmol/L (3.5-5.1); Sodium 137 mmol/L (137-145); Total Bilirubin 0.7 mg/dL (0.2-1.3); Total Protein 5.9 g/dL (6.3-8.2)
--- NOTE | 2023-02-18 10:38 | XR ---
EXAMINATION TYPE: XR chest 2V DATE OF EXAM: 02/18/2023 10:33 AM COMPARISON: Chest radiographs from 01/18/2023 TECHNIQUE: XR chest 2V Frontal and lateral views of the chest. CLINICAL INDICATION:Male, 87 years old with history of hypoxia; FINDINGS: Poor patient positioning limits evaluation. Lungs/Pleura: Diffuse hazy airspace opacities as visualized in the [id number] but patient position ing is suboptimal and there is suspected bilateral pleural effusions. Pulmonary vascularity: Pulmonary vascular congestion. Heart/mediastinum: Cardiomediastinal silhouette is enlarged and obscured due to overlying and adjacen t opacities. Musculoskeletal: Degenerative changes of the shoulder joints. Right [id number] is poorly visualized due to patient positioning. IMPRESSION: Cardiomegaly, pulmonary vascular congestion and bilateral pleural effusions. Correlate with BNP for c ongestive heart failure.
[2023-02-18 10:47] LABS: Anisocytosis Slight; Basophils % (A) 0 %; Eosinophils % (A) 0 %; HCT 30.4 % (39.0-53.0); HGB 9.5 gm/dL (13.0-17.5); Hypochromasia Moderate; Lymphocytes # (A) 0.5 k/uL (1.0-4.8); Lymphocytes % (A) 3 %; MCH 28.4 pg (25.0-35.0); MCHC 31.2 g/dL (31.0-37.0); MCV 91.1 fL (80.0-100.0); Mean Platelet Volume 9.9; Monocytes # (A) 0.7 k/uL (0-1.0); Monocytes % (A) 4 %; Neutrophils # (A) 16.8 k/uL (1.3-7.7); Neutrophils % (A) 93 %; Platelet Count 261 k/uL (150-450); RBC 3.34 m/uL (4.30-5.90); RDW 19.6 % (11.5-15.5); WBC 18.1 k/uL (3.8-10.6)
[2023-02-18] MEDS ORDERED: FUROSEMIDE 10 MG/ML 4 ML VIAL IV STA (11:54)
[2023-02-18] MEDS ORDERED: ASPIRIN 325 MG TAB PO STA (12:40)
[2023-02-18] MEDS: FUROSEMIDE 10 MG/ML 4 ML VIAL IV SCH (13:17)
[2023-02-18] MEDS ORDERED: HYDROcodone/APAP 5-325MG 1 EACH TAB PO PRN (14:22)
[2023-02-18] MEDS ORDERED: ACETAMINOPHEN TAB 325 MG TAB PO PRN (14:22)
[2023-02-18] MEDS ORDERED: DAPTOmycin 500 MG VIAL IVPB SCH (14:30)
--- NOTE | 2023-02-18 14:30 | P.HPIM ---
History of Present Illness H&P Date: 02/18/23 History of present illness; patient 87-year-old gentleman with past medical history significant for atrial Fibrillation, CVA/TIA, Deep Vein Thrombosis (DVT), Hyperlipidemia, Hypertension, Prostate Disorder, Pulmonary Embolus (PE), who presented to the ER because of shortness of breath. Patient is currently a resident at [facility]. Patient was recently admitted with concerns for colonic prolapse in the ostomy and was evaluated by general surgery. Stoma reduced on its own. Patient was discharged on IV antibiotics per ID recommendations and to be completed March 01. Patient stated that he woke up this morning and was short of breath. Shortness of breath at rest as well as exertion. Denies any chest pressure. Denies any fever or chills. Because his worsening shortness of breath, patient brought to the ER Initial lab work in the ER showed WBC 18.1, hemoglobin 9.5, sodium 137, potassium 4.7, chloride 114, BUN 50, creatinine 2.82 Patient was admitted to medicine service REVIEW OF SYSTEMS: CONSTITUTIONAL: No fever, no malaise, no fatigue. HEENT: No recent visual problems or hearing problems. Denied any sore throat. CARDIOVASCULAR: As mentioned in HPI PULMONARY: As mentioned in HPI GASTROINTESTINAL: No diarrhea, no nausea, no vomiting, no abdominal pain. NEUROLOGICAL: No headaches, no weakness, no numbness. HEMATOLOGICAL: Denies any bleeding or petechiae. GENITOURINARY: Denies any burning micturition, frequency, or urgency. MUSCULOSKELETAL/RHEUMATOLOGICAL: Denies any joint pain, swelling, or any muscle pain. ENDOCRINE: Denies any polyuria or polydipsia. The rest of the 14-point review of systems is negative. PHYSICAL EXAMINATION: GENERAL: The patient is alert and oriented x3, chronically ill-looking HEENT: Pupils are round and equally reacting to light. EOMI. No scleral icterus. No conjunctival pallor. Normocephalic, atraumatic. No pharyngeal erythema. No thyromegaly. CARDIOVASCULAR: S1 and S2 present. No murmurs, rubs, or gallops. PULMONARY: Coarse breath sounds bilaterally, ABDOMEN: Soft, nontender, nondistended, normoactive bowel sounds. No palpable organomegaly. Ostomy seen MUSCULOSKELETAL: No joint swelling or deformity. EXTREMITIES: 2+ pitting edema of lower extremity bilaterally. Left foot ulcer seen NEUROLOGICAL: Gross neurological examination did not reveal any focal deficits. SKIN: No rashes. Assessment and plan Chronic hypoxic respiratory failure Dyspnea History of Colonic prolapse for evaluation with history of colostomy History of recent polymicrobial lower leg infection History of acute on chronic kidney disease with acute on chronic kidney failure Anemia of chronic disease History of CVA/TIA Atrial fibrillation history History of DVT with PE Hyperlipidemia Hypertension Monitor vital signs Monitor CBC monitor CMP Strict I's and O's daily weights Continue IV Lasix 40 g twice a day Resume IV daptomycin and cefepime. 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 History of Any Multi-Drug Resistant Organisms: MRSA Date of last positivie culture/infection: 01/14/23 MDRO Source:: Left Heel Past Surgical History: Bowel Resection Additional Past Surgical History / Comment(s): 2020 bowel resection/colostomy, CVA in 1955 which made need for R elbow surgery/R ankle fusion, post cva surgery on back to remove blood clot, bilateral eye lens implants. Past Anesthesia/Blood Transfusion Reactions: No Reported Reaction Additional Past Anesthesia/Blood Transfusion Reaction / Comment(s): Pt believes he has received blood in past without reaction. Past Psychological History: No Psychological Hx Reported Smoking Status: Former smoker Past Alcohol Use History: None Reported Past Drug Use History: None Reported - Past Family History Mother Family Medical History: Dementia Additional Family Medical History / Comment(s): ALZHEIMERS Father Family Medical History: No Reported History Additional Family Medical History / Comment(s): Pt states his father was healthy Medications and Allergies Home Medications Medication Instructions Recorded Confirmed Type Tamsulosin HCl [Flomax] 0.4 mg PO DAILY@0800 02/14/18 02/18/23 History Pantoprazole Sodium [Protonix] 40 mg PO DAILY@0600 10/20/22 02/18/23 History Albuterol Inhaler [Ventolin Hfa 2 puff INHALATION RT-Q6H 10/28/22 02/18/23 History Inhaler] Apixaban [Eliquis] 2.5 mg PO BID@0800,1700 10/28/22 02/18/23 History Aspirin 81 mg PO DAILY@1200 10/28/22 02/18/23 History Ensure Enlive 237 ml PO TID@0800,1200,1700 10/28/22 02/18/23 History Eucerin Advanced Repair Cream 1 applic TOPICAL DAILY 10/28/22 02/18/23 History Eucerin Advanced Repair Cream 1 applic TOPICAL DAILY PRN 10/28/22 02/18/23 History Na Phos,M-B/Na Phos,Di-Ba [Fleet 133 ml RECTAL DAILY PRN 10/28/22 02/18/23 History Adult] bisacodyL [Dulcolax] 10 mg RECTAL DAILY PRN 10/28/22 02/18/23 History Amiodarone [Cordarone] 200 mg PO BID@0800,1700 12/14/22 02/18/23 History Ferrous Sulfate [Iron (65 MG 325 mg PO DAILY@1700 01/09/23 02/18/23 History Elemental)] Lactulose 30 gm PO DAILY@0800 01/09/23 02/18/23 History Metoprolol Succinate (ER) [Toprol 12.5 mg PO DAILY@0800 01/09/23 02/18/23 History XL] Multivitamins, Thera [Multivitamin 1 tab PO DAILY@1700 01/09/23 02/18/23 History (formulary)] Thiamine [Vitamin B-1] 100 mg PO BID@0800,1700 01/09/23 02/18/23 History polyethylene glycoL 3350 [Miralax] 17 gm PO DAILY@0800 01/09/23 02/18/23 History DAPTOmycin [Cubicin] 400 mg IVPB Q48H each 02/05/23 02/18/23 Rx Folic Acid 1 mg PO DAILY@1700 02/10/23 02/18/23 History metroNIDAZOLE [Flagyl] 500 mg PO TID@0800,1400,2100 02/10/23 02/18/23 History Acetaminophen Tab [Tylenol] 650 mg PO Q6HR PRN tab 02/12/23 02/18/23 Rx Cefepime [Maxipime] 1 gm IVPB Q12HR@0800,2100 #0 02/12/23 02/18/23 Rx Famotidine [Pepcid] 20 mg PO DAILY tab 02/12/23 02/18/23 Rx HYDROcodone/APAP 5-325MG [[place] 1 tab PO Q6HR PRN 3 Days #6 tab 02/12/23 02/18/23 Rx 5-325] Collagenase [Santyl Ointment] 1 applic TOPICAL DAILY 02/18/23 02/18/23 History Collagenase [Santyl Ointment] 1 applic TOPICAL DAILY PRN 02/18/23 02/18/23 History Magnesium Hydroxide [Milk of 7,200 mg PO Q2D PRN 02/18/23 02/18/23 History Magnesia Concentrate] Allergies Allergy/AdvReac Type Severity Reaction Status Date / Time memantine [From Namenda] AdvReac Nausea & Verified 02/18/23 10:27 Vomiting & Diarrhea Physical Exam Vitals: Vital Signs Temp Pulse Pulse Resp BP BP Pulse Ox 02/18/23 14:00 56 L 24 102/81 87 L 02/18/23 12:36 56 L 20 118/59 90 L 02/18/23 10:55 54 L 18 101/57 95 02/18/23 09:15 97.4 F L 64 20 88/56 91 L Intake and Output 02/17/23 02/18/23 02/18/23 22:59 06:59 14:59 Other: Weight 81.647 kg Results CBC & Chem 7: 02/18/23 09:45 02/18/23 09:45 Labs: Abnormal Lab Results - Last 24 Hours (Table) 02/18/23 02/18/23 02/18/23 Range/Units 09:45 09:45 09:45 WBC 18.1 H (3.8-10.6) k/uL RBC 3.34 L (4.30-5.90) m/uL Hgb 9.5 L (13.0-17.5) gm/dL Hct 30.4 L (39.0-53.0) % RDW 19.6 H (11.5-15.5) % Neutrophils # 16.8 H (1.3-7.7) k/uL Lymphocytes # 0.5 L (1.0-4.8) k/uL PT 15.7 H (9.0-12.0) sec INR 1.6 H (<1.2) APTT 31.0 H (22.0-30.0) sec Chloride 114 H (98-107) mmol/L Carbon Dioxide 12 L (22-30) mmol/L BUN 50 H (9-20) mg/dL Creatinine 2.82 H (0.66-1.25) mg/dL Calcium 8.0 L (8.4-10.2) mg/dL Troponin I (0.000-0.034) ng/mL Total Protein 5.9 L (6.3-8.2) g/dL Albumin 2.4 L (3.5-5.0) g/dL 02/18/23 Range/Units 09:45 WBC (3.8-10.6) k/uL RBC (4.30-5.90) m/uL Hgb (13.0-17.5) gm/dL Hct (39.0-53.0) % RDW (11.5-15.5) % Neutrophils # (1.3-7.7) k/uL Lymphocytes # (1.0-4.8) k/uL PT (9.0-12.0) sec INR (<1.2) APTT (22.0-30.0) sec Chloride (98-107) mmol/L Carbon Dioxide (22-30) mmol/L BUN (9-20) mg/dL Creatinine (0.66-1.25) mg/dL Calcium (8.4-10.2) mg/dL Troponin I 0.042 H* (0.000-0.034) ng/mL Total Protein (6.3-8.2) g/dL Albumin (3.5-5.0) g/dL
[2023-02-18] MEDS: FOLIC ACID 1 MG TAB PO SCH (17:35)
[2023-02-18] MEDS: APIXABAN 2.5 MG TABLET PO SCH (17:35)
[2023-02-18] MEDS: THIAMINE 100 MG TAB PO SCH (17:35)
[2023-02-18] MEDS: FERROUS SULFATE 325 MG TAB PO SCH (17:36)
[2023-02-18] MEDS: AMIODARONE 200 MG TAB PO SCH (17:36)
[2023-02-18] MEDS: ALBUTEROL NEBULIZED 2.5 MG/3 ML INHALATION SCH (17:59)
[2023-02-18] MEDS ORDERED: CEFEPIME 2 GM VIAL IVPB SCH (21:00)
[2023-02-18] MEDS: CEFEPIME 1 GM in SODIUM CHLORIDE 0.9% 50 ML IVPB SCH (21:18)
[2023-02-18] MEDS: metroNIDAZOLE 500 MG TAB PO SCH (21:19)
[2023-02-19] MEDS: FUROSEMIDE 10 MG/ML 4 ML VIAL IV SCH ×2 (00:55→17:59)
[2023-02-19] MEDS: ALBUTEROL NEBULIZED 2.5 MG/3 ML INHALATION SCH ×4 (01:12→21:55)
[2023-02-19] MEDS: PANTOPRAZOLE 40 MG TABLET PO SCH (06:00)
[2023-02-19 09:07] LABS: Anisocytosis Moderate; Basophils # (A) 0.1 k/uL (0-0.2); Basophils % (A) 0 %; Eosinophils % (A) 0 %; HCT 33.5 % (39.0-53.0); HGB 9.9 gm/dL (13.0-17.5); Hypochromasia Marked; Lymphocytes # (A) 0.5 k/uL (1.0-4.8); Lymphocytes % (A) 3 %; MCH 28.2 pg (25.0-35.0); MCHC 29.5 g/dL (31.0-37.0); MCV 95.7 fL (80.0-100.0); Macrocytosis Slight; Mean Platelet Volume 8.8; Monocytes # (A) 0.6 k/uL (0-1.0); Monocytes % (A) 3 %; Neutrophils # (A) 17.2 k/uL (1.3-7.7); Neutrophils % (A) 93 %; Platelet Count 215 k/uL (150-450); WBC 18.5 k/uL (3.8-10.6)
[2023-02-19 09:14] LABS: ALT 16 U/L (4-49); AST 36 U/L (17-59); African American GFR (CKD) 19 (>60 ml/min/1.73 sqM); Albumin 2.3 g/dL (3.5-5.0); Alkaline Phosphatase 101 U/L (38-126); Anion Gap 11 mmol/L; Blood Urea Nitrogen 55 mg/dL (9-20); Calcium 8.2 mg/dL (8.4-10.2); Carbon Dioxide 11 mmol/L (22-30); Chloride 115 mmol/L (98-107); Glucose 68 mg/dL (74-99); Non-African American GFR(CKD) 16 (>60 ml/min/1.73 sqM); Potassium 4.4 mmol/L (3.5-5.1); Sodium 137 mmol/L (137-145); Total Bilirubin 0.7 mg/dL (0.2-1.3); Total Protein 5.8 g/dL (6.3-8.2)
[2023-02-19] MEDS: CEFEPIME 1 GM in SODIUM CHLORIDE 0.9% 50 ML IVPB SCH ×2 (09:52→20:40)
[2023-02-19] MEDS: AMIODARONE 200 MG TAB PO SCH ×2 (09:52→16:52)
[2023-02-19] MEDS: METOPROLOL SUCCINATE (ER) 25 MG TAB.ER.24H PO SCH (09:53)
--- NOTE | 2023-02-19 10:35 | P.CRDCN ---
History of Present Illness History of present illness: HISTORY OF PRESENT ILLNESS: This is a 87-year-old male with a past medical history significant for atrial fibrillation, congestive heart failure, nonischemic cardiomyopathy, and hyperlipidemia. Patient follows in the office with Dr. Salmon. We have been asked to see the patient in consultation for CHF. Patient examined at the bedside. Patient presented to the hospital with a chief complaint of shortness of breath. Patent was found to be in acute CHF. He was started on IV lasix. He continues to report SOB at the time of examination. He is currently on Airvo. He denies chest pain or pressure. * EKG reveals atrial fibrillation with right bundle branch block. Right axis deviation. * Chest xray cardiomegaly, pulmonary vascular congestion and bilateral pleural effusions. * Laboratory data: WBC 18.5. Hemoglobin 9.9. Platelet count 215. Sodium 137. Potassium 4.4. BUN 55. Creatinine 3.21. troponin 0.042. ProBNP 44,500 * Current home cardiac medications include Eliquis 2.5mg BID, amiodarone 200 mg twice a day, and metoprolol 12.5 mg daily * Most recent echocardiogram obtained in September 2022 revealed ejection fraction 20-25%, mild to moderate mitral regurgitation, mild to moderate aortic regurgitation REVIEW OF SYSTEMS: At the time of my exam: CONSTITUTIONAL: Denies fever or chills. HEENT: Denies blurred vision, vision changes, or eye pain. Denies hemoptysis CARDIOVASCULAR: Denies chest pain. Denies orthopnea. Denies PND. Denies palpitations RESPIRATORY: Denies shortness of breath. GASTROINTESTINAL: Denies abdominal pain. Denies nausea or vomiting. HEMATOLOGIC: Denies bleeding disorders. GENITOURINARY: Denies any blood in urine. SKIN: Denies pruitis. Denies rash. PHYSICAL EXAM: VITAL SIGNS: Reviewed. GENERAL: Well-developed in no acute distress. HEENT: Head is normocephalic. Pupils are equal, round. Sclerae anicteric. Mucous membranes of the mouth are moist. Neck supple. No JVD or thyromegaly LUNGS: Respirations even and unlabored. Lungs diminished bilaterally. HEART: Regular rate and rhythm. S1 and S2 heard. Systolic murmur noted. ABDOMEN: Soft. Nondistended. Nontender. EXTREMITIES: Normal range of motion. No clubbing or cyanosis. Peripheral pulses intact. No lower extremity edema with wounds noted. NEUROLOGIC: Awake and alert. Oriented x 3. ASSESSMENT: Shortness of breath Acute on chronic heart failure with reduced EF, 20-25% Acute hypoxic respiratory failure, currently on Airvo Acute on chronic kidney disease Persistent atrial fibrillation Nonischemic cardiomyopathy Hyperlipidemia PLAN: No need to repeat echo as this was performed in September Continue current cardiac medications Continue IV lasix Daily weights, accurate I&O, and monitoring of kidney function Further recommendations pending patient course Nurse practitioner note has been reviewed by physician. Signing provider agrees with the documented findings, assessment, and plan of care. 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 History of Any Multi-Drug Resistant Organisms: MRSA Date of last positivie culture/infection: 01/14/23 MDRO Source:: Left Heel Past Surgical History: Bowel Resection Additional Past Surgical History / Comment(s): 2020 bowel resection/colostomy, CVA in 1955 which made need for R elbow surgery/R ankle fusion, post cva surgery on back to remove blood clot, bilateral eye lens implants. Past Anesthesia/Blood Transfusion Reactions: No Reported Reaction Additional Past Anesthesia/Blood Transfusion Reaction / Comment(s): Pt believes he has received blood in past without reaction. Past Psychological History: No Psychological Hx Reported Smoking Status: Former smoker Past Alcohol Use History: None Reported Past Drug Use History: None Reported - Past Family History Mother Family Medical History: Dementia Additional Family Medical History / Comment(s): ALZHEIMERS Father Family Medical History: No Reported History Additional Family Medical History / Comment(s): Pt states his father was healthy Medications and Allergies Home Medications Medication Instructions Recorded Confirmed Type Tamsulosin HCl [Flomax] 0.4 mg PO DAILY@0800 02/14/02/18/23 History Pantoprazole Sodium [Protonix] 40 mg PO DAILY@0600 10/20/22 02/18/23 History Albuterol Inhaler [Ventolin Hfa 2 puff INHALATION RT-Q6H 10/28/22 02/18/23 History Inhaler] Apixaban [Eliquis] 2.5 mg PO BID@0800,1700 10/28/22 02/18/23 History Aspirin 81 mg PO DAILY@1200 10/28/22 02/18/23 History Ensure Enlive 237 ml PO TID@0800,1200,1700 10/28/22 02/18/23 History Eucerin Advanced Repair Cream 1 applic TOPICAL DAILY 10/28/22 02/18/23 History Eucerin Advanced Repair Cream 1 applic TOPICAL DAILY PRN 10/28/22 02/18/23 History Na Phos,M-B/Na Phos,Di-Ba [Fleet 133 ml RECTAL DAILY PRN 10/28/22 02/18/23 History Adult] bisacodyL [Dulcolax] 10 mg RECTAL DAILY PRN 10/28/22 02/18/23 History Amiodarone [Cordarone] 200 mg PO BID@0800,1700 12/14/22 02/18/23 History Ferrous Sulfate [Iron (65 MG 325 mg PO DAILY@17001/09/23 02/18/23 History Elemental)] Lactulose 30 gm PO DAILY@0800 01/09/23 02/18/23 History Metoprolol Succinate (ER) [Toprol 12.5 mg PO DAILY@0800 01/09/23 02/18/23 History XL] Multivitamins, Thera [Multivitamin 1 tab PO DAILY@1700 01/09/23 02/18/23 History (formulary)] Thiamine [Vitamin B-1] 100 mg PO BID@0800,1700 01/09/23 02/18/23 History polyethylene glycoL 3350 [Miralax] 17 gm PO DAILY@0800 01/09/23 02/18/23 History DAPTOmycin [Cubicin] 400 mg IVPB Q48H each 02/05/23 02/18/23 Rx Folic Acid 1 mg PO DAILY@1700 02/10/23 02/18/23 History metroNIDAZOLE [Flagyl] 500 mg PO TID@0800,1400,2100 02/10/23 02/18/23 History Acetaminophen Tab [Tylenol] 650 mg PO Q6HR PRN tab 02/12/23 02/18/23 Rx Cefepime [Maxipime] 1 gm IVPB Q12HR@0800,2100 #0 02/12/23 02/18/23 Rx Famotidine [Pepcid] 20 mg PO DAILY tab 02/12/23 02/18/23 Rx HYDROcodone/APAP 5-325MG [[place] 1 tab PO Q6HR PRN 3 Days #6 tab 02/12/23 02/18/23 Rx 5-325] Collagenase [Santyl Ointment] 1 applic TOPICAL DAILY 02/18/23 02/18/23 History Collagenase [Santyl Ointment] 1 applic TOPICAL DAILY PRN 02/18/23 02/18/23 History Magnesium Hydroxide [Milk of 7,200 mg PO Q2D PRN 02/18/23 02/18/23 History Magnesia Concentrate] Allergies Allergy/AdvReac Type Severity Reaction Status Date / Time memantine [From Namenda] AdvReac Nausea & Verified 02/18/23 10:27 Vomiting & Diarrhea Physical Exam Vitals: Vital Signs Temp Pulse Pulse Resp BP BP Pulse Ox 02/19/23 07:42 55 L 02/19/23 07:32 54 L 95 02/19/23 06:02 50 L 22 99/52 95 02/19/23 05:00 44 L 22 106/55 96 02/19/23 03:23 96 02/19/23 02:00 52 L 22 104/58 88 L 02/19/23 01:20 54 L 02/19/23 01:15 49 L 02/19/23 01:11 94 L 02/19/23 00:13 58 L 22 98/55 89 L 02/18/23 22:04 91 L 02/18/23 19:41 48 L 22 113/62 89 L 02/18/23 18:28 80 18 89 L 02/18/23 18:15 55 L 02/18/23 18:04 47 L 02/18/23 17:44 97.1 F L 50 L 18 113/63 88 L 02/18/23 14:00 50 L 56 L 18 129/61 102/81 90 L 02/18/23 12:36 56 L 20 118/59 90 L 02/18/23 10:55 54 L 18 101/57 95 FiO2 02/19/23 07:42 02/19/23 07:32 75 02/19/23 06:02 02/19/23 05:00 02/19/23 03:23 80 02/19/23 02:00 02/19/23 01:20 02/19/23 01:15 02/19/23 01:11 80 02/19/23 00:13 02/18/23 22:04 02/18/23 19:41 02/18/23 18:28 02/18/23 18:15 02/18/23 18:04 02/18/23 17:44 02/18/23 14:00 02/18/23 12:36 02/18/23 10:55 Intake and Output 02/18/23 02/19/23 02/19/23 22:59 06:59 14:59 Output Total 600 Balance -600 Output: Urine 600 Results 02/19/23 07:55 02/19/23 07:55 Cardiac Enzymes 02/18/23 02/18/23 02/19/23 Range/Units 09:45 09:45 07:55 AST 30 36 (17-59) U/L Troponin I 0.042 H* (0.000-0.034) ng/mL Coagulation 02/18/23 Range/Units 09:45 PT 15.7 H (9.0-12.0) sec APTT 31.0 H (22.0-30.0) sec CBC 02/18/23 02/19/23 Range/Units 09:45 07:55 WBC 18.1 H 18.5 H (3.8-10.6) k/uL RBC 3.34 L 3.50 L (4.30-5.90) m/uL Hgb 9.5 L 9.9 L (13.0-17.5) gm/dL Hct 30.4 L 33.5 L (39.0-53.0) % Plt Count 261 215 (150-450) k/uL Comprehensive Metabolic Panel 02/18/23 02/19/23 Range/Units 09:45 07:55 Sodium 137 137 (137-145) mmol/L Potassium 4.7 4.4 (3.5-5.1) mmol/L Chloride 114 H 115 H (98-107) mmol/L Carbon Dioxide 12 L 11 L (22-30) mmol/L BUN 50 H 55 H (9-20) mg/dL Creatinine 2.82 H 3.21 H (0.66-1.25) mg/dL Glucose 98 68 L (74-99) mg/dL Calcium 8.0 L 8.2 L (8.4-10.2) mg/dL AST 30 36 (17-59) U/L ALT 17 16 (4-49) U/L Alkaline Phosphatase 100 101 (38-126) U/L Total Protein 5.9 L 5.8 L (6.3-8.2) g/dL Albumin 2.4 L 2.3 L (3.5-5.0) g/dL Current Medications Generic Name Dose Route Start Last Admin Trade Name Freq PRN Reason Stop Dose Admin Acetaminophen 650 mg 02/18/23 14:22 Acetaminophen Tab 325 Mg Tab PO Q6HR PRN Mild Pain or Fever > 100.5 Hydrocodone Bitart/Acetaminophen 1 each 02/18/23 14:22 Hydrocodone/Apap 5-325mg 1 Each Tab PO Q6HR PRN Pain Albuterol Sulfate 2.5 mg 02/18/23 20:00 02/19/23 07:32 Albuterol Nebulized 2.5 Mg/3 Ml INHALATION 2.5 mg RT-Q6H KATHLEEN Administration Amiodarone HCl 200 mg 02/18/23 17:00 02/19/23 09:52 Amiodarone 200 Mg Tab PO Not Given BID@0800,1700 [facility] Apixaban 2.5 mg 02/18/23 17:00 02/18/23 17:35 Apixaban 2.5 Mg Tablet PO 2.5 mg BID@0800,1700 [facility] Administration Protocol Famotidine 20 mg 02/19/23 09:00 Famotidine 20 Mg Tab PO DAILY [facility] Ferrous Sulfate 325 mg 02/18/23 17:00 02/18/23 17:36 Ferrous Sulfate 325 Mg Tab PO 325 mg DAILY@1700 [facility] Administration Folic Acid 1 mg 02/18/23 17:00 02/18/23 17:35 Folic Acid 1 Mg Tab PO 1 mg DAILY@1700 [facility] Administration Furosemide 40 mg 02/18/23 13:00 02/19/23 00:55 Furosemide 10 Mg/Ml 4 Ml Vial IV 40 mg Q12H KATHLEEN Administration Cefepime HCl 1 gm/ Sodium 50 mls @ 12.5 mls/hr 02/18/23 21:00 02/19/23 09:52 Chloride IVPB 12.5 mls/hr BID@0800,2100 [facility] Administration Daptomycin 400 mg/ Sodium 50 mls @ 100 mls/hr 02/18/23 16:00 02/18/23 17:36 Chloride IVPB 100 mls/hr Q48H KATHLEEN Administration Metoprolol Succinate 12.5 mg 02/19/23 08:00 02/19/23 09:53 Metoprolol Succinate (Er) 25 Mg Tab.Er.24h PO Not Given DAILY@0800 [facility] Metronidazole 500 mg 02/18/23 21:00 02/18/23 21:19 Metronidazole 500 Mg Tab PO 500 mg TID@0800,1400,2100 [facility] Administration Protocol Pantoprazole Sodium 40 mg 02/19/23 06:00 02/19/23 06:00 Pantoprazole 40 Mg Tablet PO 40 mg DAILY@0600 [facility] Administration Polyethylene Glycol 17 gm 02/19/23 08:00 Polyethylene Glycol 3350 17 Gm Powd.Pack PO DAILY@0800 [facility] Tamsulosin HCl 0.4 mg 02/19/23 08:00 Tamsulosin 0.4 Mg Cap.Er.24h PO DAILY@0800 [facility] Thiamine HCl 100 mg 02/18/23 17:00 02/18/23 17:35 Thiamine 100 Mg Tab PO 100 mg BID@0800,1700 [facility] Administration Intake and Output 02/18/23 02/19/23 02/19/23 22:59 06:59 14:59 Output Total 600 Balance -600 Output: Urine 600 02/19/23 07:55 02/19/23 07:55
[2023-02-19 13:24] VITALS: BMI 25.1
--- NOTE | 2023-02-19 13:27 | P.NPCON ---
History of Present Illness - Reason for Consult acute renal failure - History of Present Illness Patient is an 87-year-old male with history of CVA, hypertension, chronic urine retention with indwelling Carranza catheter. Patient has history of acute kidney injury associated with vancomycin toxicity and ATN from low blood pressure during his hospitalization on 01/30/2023. Serum creatinine at that time had decreased to 2.5 from peak of 3.5 mg/dL. Patient was readmitted on 02/10/2023 with prolapse of colostomy which did not need surgical intervention and patient was discharged back to long-term. Patient returns now with complaints of shortness of breath. No chest pain. Shortness of breath has progressively worsened. No history of fever nausea vomiting abdominal pain or diarrhea. Serum creatinine 2.8 yesterday and increased to 3.2 today. Chest x-ray shows evidence of pulmonary vascular congestion and bilateral pleural effusions. Patient is currently maintained on IV Lasix for volume overload. Patient is also severely acidotic with CO2 of 12 on BMP. Patient has history of bowel resection and colostomy. 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 History of Any Multi-Drug Resistant Organisms: MRSA Date of last positivie culture/infection: 01/14/23 MDRO Source:: Left Heel Past Surgical History: Bowel Resection Additional Past Surgical History / Comment(s): 2020 bowel resection/colostomy, CVA in 1955 which made need for R elbow surgery/R ankle fusion, post cva surgery on back to remove blood clot, bilateral eye lens implants. Past Anesthesia/Blood Transfusion Reactions: No Reported Reaction Additional Past Anesthesia/Blood Transfusion Reaction / Comment(s): Pt believes he has received blood in past without reaction. Past Psychological History: No Psychological Hx Reported Smoking Status: Former smoker Past Alcohol Use History: None Reported Past Drug Use History: None Reported - Past Family History Mother Family Medical History: Dementia Additional Family Medical History / Comment(s): ALZHEIMERS Father Family Medical History: No Reported History Additional Family Medical History / Comment(s): Pt states his father was healthy Medications and Allergies Home Medications Medication Instructions Recorded Confirmed Type Tamsulosin HCl [Flomax] 0.4 mg PO DAILY@0800 02/14/18 02/18/23 History Pantoprazole Sodium [Protonix] 40 mg PO DAILY@0600 10/20/22 02/18/23 History Albuterol Inhaler [Ventolin Hfa 2 puff INHALATION RT-Q6H 10/28/22 02/18/23 History Inhaler] Apixaban [Eliquis] 2.5 mg PO BID@0800,1700 10/28/22 02/18/23 History Aspirin 81 mg PO DAILY@1200 10/28/22 02/18/23 History Ensure Enlive 237 ml PO TID@0800,1200,1700 10/28/22 02/18/23 History Eucerin Advanced Repair Cream 1 applic TOPICAL DAILY 10/28/22 02/18/23 History Eucerin Advanced Repair Cream 1 applic TOPICAL DAILY PRN 10/28/22 02/18/23 History Na Phos,M-B/Na Phos,Di-Ba [Fleet 133 ml RECTAL DAILY PRN 10/28/22 02/18/23 History Adult] bisacodyL [Dulcolax] 10 mg RECTAL DAILY PRN 10/28/22 02/18/23 History Amiodarone [Cordarone] 200 mg PO BID@0800,1700 12/14/22 02/18/23 History Ferrous Sulfate [Iron (65 MG 325 mg PO DAILY@17001/09/23 02/18/23 History Elemental)] Lactulose 30 gm PO DAILY@0800 01/09/23 02/18/23 History Metoprolol Succinate (ER) [Toprol 12.5 mg PO DAILY@0800 01/09/23 02/18/23 History XL] Multivitamins, Thera [Multivitamin 1 tab PO DAILY@1700 01/09/23 02/18/23 History (formulary)] Thiamine [Vitamin B-1] 100 mg PO BID@0800,1700 01/09/23 02/18/23 History polyethylene glycoL 3350 [Miralax] 17 gm PO DAILY@0800 01/09/23 02/18/23 History DAPTOmycin [Cubicin] 400 mg IVPB Q48H each 02/05/23 02/18/23 Rx Folic Acid 1 mg PO DAILY@1700 02/10/23 02/18/23 History metroNIDAZOLE [Flagyl] 500 mg PO TID@0800,1400,2100 02/10/23 02/18/23 History Acetaminophen Tab [Tylenol] 650 mg PO Q6HR PRN tab 02/12/23 02/18/23 Rx Cefepime [Maxipime] 1 gm IVPB Q12HR@0800,2100 #0 02/12/23 02/18/23 Rx Famotidine [Pepcid] 20 mg PO DAILY tab 02/12/23 02/18/23 Rx HYDROcodone/APAP 5-325MG [[place] 1 tab PO Q6HR PRN 3 Days #6 tab 02/12/23 02/18/23 Rx 5-325] Collagenase [Santyl Ointment] 1 applic TOPICAL DAILY 02/18/23 02/18/23 History Collagenase [Santyl Ointment] 1 applic TOPICAL DAILY PRN 02/18/23 02/18/23 History Magnesium Hydroxide [Milk of 7,200 mg PO Q2D PRN 02/18/23 02/18/23 History Magnesia Concentrate] Allergies Allergy/AdvReac Type Severity Reaction Status Date / Time memantine [From Namenda] AdvReac Nausea & Verified 02/18/23 10:27 Vomiting & Diarrhea Physical Exam Vitals: Vital Signs Temp Pulse Pulse Resp BP BP Pulse Ox 02/19/23 12:38 68 02/19/23 12:25 68 93 L 02/19/23 08:00 97.4 F L 47 L 22 111/59 92 L 02/19/23 07:42 55 L 02/19/23 07:32 54 L 95 02/19/23 06:02 50 L 22 99/52 95 02/19/23 05:00 44 L 22 106/55 96 02/19/23 03:23 96 02/19/23 02:00 52 L 22 104/58 88 L 02/19/23 01:20 54 L 02/19/23 01:15 49 L 02/19/23 01:11 94 L 02/19/23 00:13 58 L 22 98/55 89 L 02/18/23 22:04 91 L 02/18/23 19:41 48 L 22 113/62 89 L 02/18/23 18:28 80 18 89 L 02/18/23 18:15 55 L 02/18/23 18:04 47 L 02/18/23 17:44 97.1 F L 50 L 18 113/63 88 L 02/18/23 14:00 50 L 56 L 18 129/61 102/81 90 L FiO2 02/19/23 12:38 02/19/23 12:25 65 02/19/23 08:00 64 02/19/23 07:42 02/19/23 07:32 75 02/19/23 06:02 02/19/23 05:00 02/19/23 03:23 80 02/19/23 02:00 02/19/23 01:20 02/19/23 01:15 02/19/23 01:11 80 02/19/23 00:13 02/18/23 22:04 02/18/23 19:41 02/18/23 18:28 02/18/23 18:15 02/18/23 18:04 02/18/23 17:44 02/18/23 14:00 Intake and Output 02/18/23 02/19/23 02/19/23 22:59 06:59 14:59 Intake Total 50 Output Total 600 450 Balance -600 -400 Intake: Oral 50 Output: Urine 600 450 Other: Voiding Method Indwelling Catheter # Bowel Movements 150 Patient is awake, comfortable, mildly short of breath Examination of the heart S1 and S2 Examination of the lungs bilateral breath sounds are heard Abdomen is soft nontender. Colostomy Examination of lower extremity shows edema 2+ bilaterally Results - Lab Results Most recent lab results Calcium 8.2 mg/dL (8.4-10.2) L 02/19/23 07:55 02/19/23 07:55 02/19/23 07:55 Assessment and Plan Assessment: 1. Acute kidney injury nonoliguric secondary to low blood pressure and hemodynamic ATN. Possible component of cardiorenal syndrome. Patient has indwelling Carranza catheter 2. Chronic urine retention maintained on indwelling Carranza catheter for about 2 months now 3. Non-gap metabolic acidosis secondary to acute kidney injury and GI fluid loss from ostomy although no significantly increased output documented. 4. Volume overload currently being diuresed 5. History of bowel ischemia status post bowel resection and colostomy in 2020 6. Left heel ulcer status post antibiotics Plan: Continue with IV Lasix Add low-dose IV bicarb, for severe metabolic acidosis Repeat labs in a.m. Accurate I's and O's Continue with Carranza catheter Continue with Flomax next Thank you for the consultation. We will continue to follow the patient with you during his hospitalization
--- NOTE | 2023-02-19 14:35 | P.PN ---
Subjective Progress Note Date: 02/19/23 patient 87-year-old gentleman with past medical history significant for atrial Fibrillation, CVA/TIA, Deep Vein Thrombosis (DVT), Hyperlipidemia, Hypertension, Prostate Disorder, Pulmonary Embolus (PE), who presented to the ER because of shortness of breath. Patient is currently a resident at [facility]. Patient was recently admitted with concerns for colonic prolapse in the ostomy and was evaluated by general surgery. Stoma reduced on its own. Patient was discharged on IV antibiotics per ID recommendations and to be completed March 01. Patient stated that he woke up this morning and was short of breath. Shortness of breath at rest as well as exertion. Denies any chest pressure. Denies any fev er or chills. Because his worsening shortness of breath, patient brought to the ER Initial lab work in the ER showed WBC 18.1, hemoglobin 9.5, sodium 137, potassium 4.7, chloride 114, BUN 50, creatinine 2.82 Patient was admitted to medicine service 02/19. Patient seen and examined. Labs were done this morning showed WBC 18.5, hemoglobin 9.9, platelet count 215, sodium 137, potassium 4.4, BUN 55, creatinine 3.21. Currently on heated high flow. States she feels slightly better compared to yesterday REVIEW OF SYSTEMS: CONSTITUTIONAL: No fever, no malaise,. CARDIOVASCULAR: No chest pain, no palpitations, no syncope. PULMONARY: Complaining of shortness of breath GASTROINTESTINAL: No diarrhea, no nausea, no vomiting, no abdominal pain. NEUROLOGICAL: No headaches, no weakness, PHYSICAL EXAMINATION: GENERAL: The patient is alert , chronically ill-looking HEENT: Pupils are round and equally reacting to light. EOMI. No scleral icterus. No conjunctival pallor. Normocephalic, atraumatic. No pharyngeal erythema. No thyromegaly. CARDIOVASCULAR: S1 and S2 present. No murmurs, rubs, or gallops. PULMONARY: Coarse breath sounds bilaterally, ABDOMEN: Soft, nontender, nondistended, normoactive bowel sounds. No palpable organomegaly. Ostomy seen MUSCULOSKELETAL: No joint swelling or deformity. EXTREMITIES: 2+ pitting edema of lower extremity bilaterally. Left foot ulcer seen NEUROLOGICAL: Gross neurological examination did not reveal any focal deficits. SKIN: No rashes. Assessment and plan Acute on Chronic hypoxic respiratory failure Acute CHF Dyspnea History of Colonic prolapse for evaluation with history of colostomy History of recent polymicrobial lower leg infection acute on chronic kidney disease Anemia of chronic disease History of CVA/TIA Atrial fibrillation history History of DVT with PE Hyperlipidemia Hypertension Monitor vital signs Monitor CBC Monitor CMP Continue telemetry monitoring Strict I's and O's daily weights Continue IV Lasix 40 g twice a day Continue amiodarone and Eliquis Continue IV daptomycin and cefepime. Continue wound care Follow-up in ID recs Follow-up on cardiology recommendations Consult nephrology Objective - Vital Signs Vital signs: Vital Signs Temp 97.1 F L 02/18/23 17:44 Pulse 55 L 02/19/23 07:42 Resp 22 02/19/23 06:02 BP 99/52 02/19/23 06:02 Pulse Ox 95 02/19/23 07:32 FiO2 75 02/19/23 07:32 Intake & Output 02/18/23 02/19/23 02/19/23 18:59 06:59 18:59 Output Total 600 Balance -600 Weight 81.647 kg Output: Urine 600 - Labs CBC & Chem 7: 02/19/23 07:55 02/19/23 07:55 Labs: Abnormal Lab Results - Last 24 Hours (Table) 02/18/23 02/18/23 02/18/23 Range/Units 09:45 09:45 09:45 WBC 18.1 H (3.8-10.6) k/uL RBC 3.34 L (4.30-5.90) m/uL Hgb 9.5 L (13.0-17.5) gm/dL Hct 30.4 L (39.0-53.0) % MCHC (31.0-37.0) g/dL RDW 19.6 H (11.5-15.5) % Neutrophils # 16.8 H (1.3-7.7) k/uL Lymphocytes # 0.5 L (1.0-4.8) k/uL PT 15.7 H (9.0-12.0) sec INR 1.6 H (<1.2) APTT 31.0 H (22.0-30.0) sec Chloride 114 H (98-107) mmol/L Carbon Dioxide 12 L (22-30) mmol/L BUN 50 H (9-20) mg/dL Creatinine 2.82 H (0.66-1.25) mg/dL Glucose (74-99) mg/dL Calcium 8.0 L (8.4-10.2) mg/dL Troponin I (0.000-0.034) ng/mL Total Protein 5.9 L (6.3-8.2) g/dL Albumin 2.4 L (3.5-5.0) g/dL 02/18/23 02/19/23 02/19/23 Range/Units 09:45 07:55 07:55 WBC 18.5 H (3.8-10.6) k/uL RBC 3.50 L (4.30-5.90) m/uL Hgb 9.9 L (13.0-17.5) gm/dL Hct 33.5 L (39.0-53.0) % MCHC 29.5 L (31.0-37.0) g/dL RDW 20.0 H (11.5-15.5) % Neutrophils # 17.2 H (1.3-7.7) k/uL Lymphocytes # 0.5 L (1.0-4.8) k/uL PT (9.0-12.0) sec INR (<1.2) APTT (22.0-30.0) sec Chloride 115 H (98-107) mmol/L Carbon Dioxide 11 L (22-30) mmol/L BUN 55 H (9-20) mg/dL Creatinine 3.21 H (0.66-1.25) mg/dL Glucose 68 L (74-99) mg/dL Calcium 8.2 L (8.4-10.2) mg/dL Troponin I 0.042 H* (0.000-0.034) ng/mL Total Protein 5.8 L (6.3-8.2) g/dL Albumin 2.3 L (3.5-5.0) g/dL
[2023-02-19] MEDS: FOLIC ACID 1 MG TAB PO SCH (17:59)
[2023-02-19] MEDS: FERROUS SULFATE 325 MG TAB PO SCH (17:59)
[2023-02-19] MEDS: APIXABAN 2.5 MG TABLET PO SCH ×2 (17:59→18:13)
[2023-02-19] MEDS: metroNIDAZOLE 500 MG TAB PO SCH ×3 (17:59→20:30)
[2023-02-19] MEDS: TAMSULOSIN 0.4 MG CAP.ER.24H PO SCH (17:59)
[2023-02-19] MEDS: DEXTROSE 5% IN WATER 1,000 ML with SODIUM BICARB (1 MEQ/ML) 150 ML IV SCH (18:00)
[2023-02-19] MEDS: polyethylene glycoL 3350 17 GM POWD.PACK PO SCH (18:00)
[2023-02-19] MEDS: FAMOTIDINE 20 MG TAB PO SCH (18:00)
[2023-02-19] MEDS: THIAMINE 100 MG TAB PO SCH ×2 (18:00→18:13)
--- NOTE | 2023-02-19 22:48 | P.CONS ---
History of Present Illness - Reason for Consult Consult date: 02/19/23 - History of Present Illness Patient is a 87-year-old male with a past medical history negative for atrial fibrillation CVA TIA DVT hypertension hyperlipidemia recent multiple admission to the hospital especially with a left posterior heel infected pressure ulcer that has been debrided subsequently admitted to the hospital with a renal failure second vancomycin culture positive for VRE MRSA Klebsiella and the patient has been on cefepime daptomycin along with oral Flagyl patient has been brought into the hospital yesterday morning for evaluation of increasing shortness of breath and the patient was noticed to be hypoxic with O2 sats in 80s on arrival to the ER patient did not have any significant symptoms however the patient was noticed to be hypoxic requiring supplemental oxygen patient denies having any chest pain has been complaining of some shortness of breath no significant cough or sputum production no nausea vomiting no abdominal pain and denies any worsening pain to the left heel wound area patient presented to the hospital was afebrile and no fever has been recorded subsequently he did have vital of 18.1 with a left shift. 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 History of Any Multi-Drug Resistant Organisms: MRSA Year Discovered:: 01/14/23 MDRO Source:: Left Heel Past Surgical History: Bowel Resection Additional Past Surgical History / Comment(s): 2020 bowel resection/colostomy, CVA in 1955 which made need for R elbow surgery/R ankle fusion, post cva surgery on back to remove blood clot, bilateral eye lens implants. Past Anesthesia/Blood Transfusion Reactions: No Reported Reaction Additional Past Anesthesia/Blood Transfusion Reaction / Comm: Pt believes he has received blood in past without reaction. Past Psychological History: No Psychological Hx Reported Smoking Status: Former smoker Past Alcohol Use History: None Reported Past Drug Use History: None Reported - Past Family History Mother Family Medical History: Dementia Additional Family Medical History / Comment(s): ALZHEIMERS Father Family Medical History: No Reported History Additional Family Medical History / Comment(s): Pt states his father was healthy Medications and Allergies Home Medications Medication Instructions Recorded Confirmed Type Tamsulosin HCl [Flomax] 0.4 mg PO DAILY@0800 02/14/18 02/18/23 History Pantoprazole Sodium [Protonix] 40 mg PO DAILY@0600 10/20/22 02/18/23 History Albuterol Inhaler [Ventolin Hfa 2 puff INHALATION RT-Q6H 10/28/22 02/18/23 History Inhaler] Apixaban [Eliquis] 2.5 mg PO BID@0800,1700 10/28/22 02/18/23 History Aspirin 81 mg PO DAILY@1200 10/28/22 02/18/23 History Ensure Enlive 237 ml PO TID@0800,1200,1700 10/28/22 02/18/23 History Eucerin Advanced Repair Cream 1 applic TOPICAL DAILY 10/28/22 02/18/23 History Eucerin Advanced Repair Cream 1 applic TOPICAL DAILY PRN 10/28/22 02/18/23 History Na Phos,M-B/Na Phos,Di-Ba [Fleet 133 ml RECTAL DAILY PRN 10/28/22 02/18/23 History Adult] bisacodyL [Dulcolax] 10 mg RECTAL DAILY PRN 10/28/22 02/18/23 History Amiodarone [Cordarone] 200 mg PO BID@0800,1700 12/14/22 02/18/23 History Ferrous Sulfate [Iron (65 MG 325 mg PO DAILY@17001/09/23 02/18/23 History Elemental)] Lactulose 30 gm PO DAILY@0800 01/09/23 02/18/23 History Metoprolol Succinate (ER) [Toprol 12.5 mg PO DAILY@0800 01/09/23 02/18/23 History XL] Multivitamins, Thera [Multivitamin 1 tab PO DAILY@17001/09/23 02/18/23 History (formulary)] Thiamine [Vitamin B-1] 100 mg PO BID@0800,1700 01/09/23 02/18/23 History polyethylene glycoL 3350 [Miralax] 17 gm PO DAILY@0800 01/09/23 02/18/23 History DAPTOmycin [Cubicin] 400 mg IVPB Q48H each 02/05/23 02/18/23 Rx Folic Acid 1 mg PO DAILY@1700 02/10/23 02/18/23 History metroNIDAZOLE [Flagyl] 500 mg PO TID@0800,1400,2100 02/10/23 02/18/23 History Acetaminophen Tab [Tylenol] 650 mg PO Q6HR PRN tab 02/12/23 02/18/23 Rx Cefepime [Maxipime] 1 gm IVPB Q12HR@0800,2100 #0 02/12/23 02/18/23 Rx Famotidine [Pepcid] 20 mg PO DAILY tab 02/12/23 02/18/23 Rx HYDROcodone/APAP 5-325MG [[place] 1 tab PO Q6HR PRN 3 Days #6 tab 02/12/23 02/18/23 Rx 5-325] Collagenase [Santyl Ointment] 1 applic TOPICAL DAILY 02/18/23 02/18/23 History Collagenase [Santyl Ointment] 1 applic TOPICAL DAILY PRN 02/18/23 02/18/23 History Magnesium Hydroxide [Milk of 7,200 mg PO Q2D PRN 02/18/23 02/18/23 History Magnesia Concentrate] Allergies Allergy/AdvReac Type Severity Reaction Status Date / Time memantine [From Namenda] AdvReac Nausea & Verified 02/18/23 10:27 Vomiting & Diarrhea Physical Exam Vitals: Vital Signs Temp Pulse Pulse Resp BP BP Pulse Ox 02/19/23 07:42 55 L 02/19/23 07:32 54 L 95 02/19/23 06:02 50 L 22 99/52 95 02/19/23 05:00 44 L 22 106/55 96 02/19/23 03:23 96 02/19/23 02:00 52 L 22 104/58 88 L 02/19/23 01:20 54 L 02/19/23 01:15 49 L 02/19/23 01:11 94 L 02/19/23 00:13 58 L 22 98/55 89 L 02/18/23 22:04 91 L 02/18/23 19:41 48 L 22 113/62 89 L 02/18/23 18:28 80 18 89 L 02/18/23 18:15 55 L 02/18/23 18:04 47 L 02/18/23 17:44 97.1 F L 50 L 18 113/63 88 L 02/18/23 14:00 50 L 56 L 18 129/61 102/81 90 L 02/18/23 12:36 56 L 20 118/59 90 L 02/18/23 10:55 54 L 18 101/57 95 FiO2 02/19/23 07:42 02/19/23 07:32 75 02/19/23 06:02 02/19/23 05:00 02/19/23 03:23 80 02/19/23 02:00 02/19/23 01:20 02/19/23 01:15 02/19/23 01:11 80 02/19/23 00:13 02/18/23 22:04 02/18/23 19:41 02/18/23 18:28 02/18/23 18:15 02/18/23 18:04 02/18/23 17:44 02/18/23 14:00 02/18/23 12:36 02/18/23 10:55 Intake and Output 02/18/23 02/19/23 02/19/23 22:59 06:59 14:59 Output Total 600 Balance -600 Output: Urine 600 Results CBC & Chem 7: 02/19/23 07:55 02/19/23 07:55 Labs: Abnormal Lab Results - Last 24 Hours (Table) 02/18/23 02/18/23 02/18/23 Range/Units 09:45 09:45 09:45 WBC 18.1 H (3.8-10.6) k/uL RBC 3.34 L (4.30-5.90) m/uL Hgb 9.5 L (13.0-17.5) gm/dL Hct 30.4 L (39.0-53.0) % MCHC (31.0-37.0) g/dL RDW 19.6 H (11.5-15.5) % Neutrophils # 16.8 H (1.3-7.7) k/uL Lymphocytes # 0.5 L (1.0-4.8) k/uL PT 15.7 H (9.0-12.0) sec INR 1.6 H (<1.2) APTT 31.0 H (22.0-30.0) sec Chloride 114 H (98-107) mmol/L Carbon Dioxide 12 L (22-30) mmol/L BUN 50 H (9-20) mg/dL Creatinine 2.82 H (0.66-1.25) mg/dL Glucose (74-99) mg/dL Calcium 8.0 L (8.4-10.2) mg/dL Troponin I (0.000-0.034) ng/mL Total Protein 5.9 L (6.3-8.2) g/dL Albumin 2.4 L (3.5-5.0) g/dL 02/18/23 02/19/23 02/19/23 Range/Units 09:45 07:55 07:55 WBC 18.5 H (3.8-10.6) k/uL RBC 3.50 L (4.30-5.90) m/uL Hgb 9.9 L (13.0-17.5) gm/dL Hct 33.5 L (39.0-53.0) % MCHC 29.5 L (31.0-37.0) g/dL RDW 20.0 H (11.5-15.5) % Neutrophils # 17.2 H (1.3-7.7) k/uL Lymphocytes # 0.5 L (1.0-4.8) k/uL PT (9.0-12.0) sec INR (<1.2) APTT (22.0-30.0) sec Chloride 115 H (98-107) mmol/L Carbon Dioxide 11 L (22-30) mmol/L BUN 55 H (9-20) mg/dL Creatinine 3.21 H (0.66-1.25) mg/dL Glucose 68 L (74-99) mg/dL Calcium 8.2 L (8.4-10.2) mg/dL Troponin I 0.042 H* (0.000-0.034) ng/mL Total Protein 5.8 L (6.3-8.2) g/dL Albumin 2.3 L (3.5-5.0) g/dL Assessment and Plan Plan: 1patient with a left heel infected pressure ulcer culture did grow multiple pathogen including VRE MRSA Klebsiella and anaerobes this patient unfortunately did have renal failure secondary to vancomycin not been to the hospital shortness of breath and hypoxemia likely related to fluid overload. 2we will continue patient on daptomycin cefepime add oral Flagyl to cover for the anaerobes 3-local wound care to the left heel wound with Santyl followed by moist dressing keep the area of the pressure We will follow on clinical condition and cultures to further adjust medication if needed Thank you for this consultation we will follow the patient along with you Time with Patient: Greater than 30
[2023-02-19 23:38] LABS: Amorphous Sediment,Urine Occasional /hpf; Appearance,Urine Cloudy (Clear); Bacteria,Urine Occasional /hpf; Bilirubin,Urine Negative (Negative); Blood,Urine Large (Negative); Budding Yeast,Urine Few /hpf; Color,Urine Yellow; Glucose,Urine (UA) Negative (Negative); Hyaline Casts,Urine 21 /lpf (0-2); Ketones,Urine Negative (Negative); Leukocyte Esterase,Urine Large (Negative); Mucus,Urine Rare /hpf; Nitrite,Urine Negative (Negative); Protein,Urine 1+ (Negative); RBC,Urine >182 /hpf (0-5); Squamous Epithelial Cell,Urine 1 /hpf (0-4); Urobilinogen,Urine <2.0 mg/dL (<2.0); WBC,Urine >182 /hpf (0-5)
[2023-02-20] MEDS: FUROSEMIDE 10 MG/ML 4 ML VIAL IV SCH ×2 (00:04→13:53)
[2023-02-20 00:38] LABS: Glucose,Whole Blood 137 mg/dL (70-110)
[2023-02-20] MEDS: ALBUTEROL NEBULIZED 2.5 MG/3 ML INHALATION SCH ×4 (01:01→20:04)
--- NOTE | 2023-02-20 01:20 | P.CNPUL ---
History of Present Illness Consult date: 02/20/23 Requesting physician: Raymond Moreno Reason for consult: hypoxemia Chief complaint: Altered mental status and hypoxia History of present illness: I am seeing this patient in new consultation today 02/20/2023 on the cardiac stepdown unit for acute hypoxemic respiratory failure secondary to CHF exacerb ation. Patient is an 87-year-old male who is a poor historian, and has past medical history significant for congestive heart failure, atrial fibrillation, previous CVA/TIA, DVT, pulmonary embolism, hypertension, hyperlipidemia, bowel perforation status post partial colectomy and colostomy, parastomal hernia, BPH, chronic indwelling urinary catheter, multiple chronic wounds. Patient did recently have an admission for a colostomy prolapse and repair in November,. Patient is debilitated secondary to his multiple comorbidities, and resides at [facility]. Patient was found to be hypoxic at the outside facility, and was transferred to the emergency room yesterday morning. Chest x- ray on arrival was consistent with CHF exacerbation. The patient is currently lying in bed, on AIRVO 60 L and 65%, in no apparent distress. He appears weak and debilitated. He denies any specific complaints. Blood pressure is marginal. There is gross anasarca. He has been started on Lasix 40 mg twice a day. He has multiple chronic wounds of his left lower extremity and there is a decubitus sacral ulcer. His scrotum is macerated and there is ulceration of his penis. Wounds were last cultured on February 01, and were positive for polymicrobial bacteria including MRSA. The patient does have a right upper chest Gan catheter, and he was reportedly receiving antibiotics at [facility]. It does not appear that the central line dressing has been changed since January 29. Abdomen appears nonacute. There is a right upper quadrant large parastomal hernia, colostomy has good fecal output. Most recent CBC from yesterday shows a WBC count of 18.5, hemoglobin 9.9, hematocrit 33.5, platelets 215. BMP shows a sodium 137, potassium 4.4, chloride 115, serum bicarb 11, BUN 55, creatinine 3.21, glucose 68. There is a component of acute kidney injury, and nephrology has been consulted. The patient has been started on a 3 amp sodium bicarbonate and D5W infusion at 50 ML's per hour. The patient is being empirically covered on a combination of daptomycin, cefepime, and Flagyl. He has been afebrile. Lactic acid level was mildly elevated at 2.2. Blood cultures are pending. Troponins mildly elevated on arrival at 0.042. ECG is consistent with atrial fibrillation with a slow ventricular rate of 58 bpm and right bundle branch block. No obvious acute ischemic changes. Patient is anticoagulated on Eliquis. Patient is a DO NOT RESUSCITATE/DO NOT INTUBATE. He will be monitored on the cardiac stepdown unit. Review of Systems REVIEW OF SYSTEMS is limited due to the patient's altered mental status. CONSTITUTIONAL: Denies any recent significant weight loss or weight gain. EYES: Denies change in vision. EARS, NOSE, MOUTH, THROAT: Denies headaches, denies sore throat. CARDIOVASCULAR: Denies chest pain, palpitations or syncopal episodes. RESPIRATORY: Denies shortness of breath, cough, congestion or hemoptysis. GASTROINTESTINAL: Denies change in appetite, abdominal pain, nausea and vomiting, or diarrhea GENITOURINARY: Denies hematuria, denies infections. MUSKULOSKELETAL: Denies pain, denies swelling. INTEGUMENTARY: Denies rash, denies eczema. NEUROLOGICAL: Denies recent memory loss, no recent seizure activity. PSYCHIATRIC: Denies anxiety, denies depression. HEMATOLOGIC/LYMPHATIC: Denies anemia, denies enlarged lymph node Past Medical History Past Medical History: Atrial Fibrillation, CVA/TIA, Deep Vein Thrombosis (DVT), Hyperlipidemia, Hypertension, Prostate Disorder, Pulmonary Embolus (PE), Supraventricular Tachycardia (SVT) Additional Past Medical History / Comment(s): 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 History of Any Multi-Drug Resistant Organisms: MRSA Date of last positivie culture/infection: 01/14/23 MDRO Source:: Left Heel Past Surgical History: Bowel Resection Additional Past Surgical History / Comment(s): 2020 bowel resection/colostomy, CVA in 1955 which made need for R elbow surgery/R ankle fusion, post cva surgery on back to remove blood clot, bilateral eye lens implants. Past Anesthesia/Blood Transfusion Reactions: No Reported Reaction Additional Past Anesthesia/Blood Transfusion Reaction / Comment(s): Pt believes he has received blood in past without reaction. Past Psychological History: No Psychological Hx Reported Smoking Status: Former smoker Past Alcohol Use History: None Reported Past Drug Use History: None Reported - Past Family History Mother Family Medical History: Dementia Additional Family Medical History / Comment(s): ALZHEIMERS Father Family Medical History: No Reported History Additional Family Medical History / Comment(s): Pt states his father was healthy Medications and Allergies Home Medications Medication Instructions Recorded Confirmed Type Tamsulosin HCl [Flomax] 0.4 mg PO DAILY@0800 02/14/18 02/18/23 History Pantoprazole Sodium [Protonix] 40 mg PO DAILY@0600 10/20/22 02/18/23 History Albuterol Inhaler [Ventolin Hfa 2 puff INHALATION RT-Q6H 10/28/22 02/18/23 History Inhaler] Apixaban [Eliquis] 2.5 mg PO BID@0800,1700 10/28/22 02/18/23 History Aspirin 81 mg PO DAILY@1200 10/28/22 02/18/23 History Ensure Enlive 237 ml PO TID@0800,1200,1700 10/28/22 02/18/23 History Eucerin Advanced Repair Cream 1 applic TOPICAL DAILY 10/28/22 02/18/23 History Eucerin Advanced Repair Cream 1 applic TOPICAL DAILY PRN 10/28/22 02/18/23 History Na Phos,M-B/Na Phos,Di-Ba [Fleet 133 ml RECTAL DAILY PRN 10/28/22 02/18/23 History Adult] bisacodyL [Dulcolax] 10 mg RECTAL DAILY PRN 10/28/22 02/18/23 History Amiodarone [Cordarone] 200 mg PO BID@0800,1700 12/14/22 02/18/23 History Ferrous Sulfate [Iron (65 MG 325 mg PO DAILY@1700 01/09/23 02/18/23 History Elemental)] Lactulose 30 gm PO DAILY@0800 01/09/23 02/18/23 History Metoprolol Succinate (ER) [Toprol 12.5 mg PO DAILY@0800 01/09/23 02/18/23 History XL] Multivitamins, Thera [Multivitamin 1 tab PO DAILY@1700 01/09/23 02/18/23 History (formulary)] Thiamine [Vitamin B-1] 100 mg PO BID@0800,1700 01/09/23 02/18/23 History polyethylene glycoL 3350 [Miralax] 17 gm PO DAILY@0800 01/09/23 02/18/23 History DAPTOmycin [Cubicin] 400 mg IVPB Q48H each 02/05/23 02/18/23 Rx Folic Acid 1 mg PO DAILY@1700 02/10/23 02/18/23 History metroNIDAZOLE [Flagyl] 500 mg PO TID@0800,1400,2100 02/10/23 02/18/23 History Acetaminophen Tab [Tylenol] 650 mg PO Q6HR PRN tab 02/12/23 02/18/23 Rx Cefepime [Maxipime] 1 gm IVPB Q12HR@0800,2100 #0 02/12/23 02/18/23 Rx Famotidine [Pepcid] 20 mg PO DAILY tab 02/12/23 02/18/23 Rx HYDROcodone/APAP 5-325MG [Talmo 1 tab PO Q6HR PRN 3 Days #6 tab 02/12/23 02/18/23 Rx 5-325] Collagenase [Santyl Ointment] 1 applic TOPICAL DAILY 02/18/23 02/18/23 History Collagenase [Santyl Ointment] 1 applic TOPICAL DAILY PRN 02/18/23 02/18/23 History Magnesium Hydroxide [Milk of 7,200 mg PO Q2D PRN 02/18/23 02/18/23 History Magnesia Concentrate] Allergies Allergy/AdvReac Type Severity Reaction Status Date / Time memantine [From Namenda] AdvReac Nausea & Verified 02/18/23 10:27 Vomiting & Diarrhea Physical Exam Vitals: Vital Signs Temp Pulse Pulse Resp BP BP Pulse Ox 02/19/23 22:12 96 02/19/23 16:00 63 101/52 91 L 02/19/23 15:35 90 L 02/19/23 14:00 50 L 22 02/19/23 12:38 68 02/19/23 12:25 68 93 L 02/19/23 12:00 50 L 95/50 91 L 02/19/23 08:00 97.4 F L 47 L 22 111/59 92 L 02/19/23 07:42 55 L 02/19/23 07:32 54 L 95 02/19/23 06:02 50 L 22 99/52 95 02/19/23 05:00 44 L 22 106/55 96 02/19/23 03:23 96 02/19/23 02:00 52 L 22 104/58 88 L 02/19/23 01:20 54 L 02/19/23 01:15 49 L 02/19/23 01:11 94 L 02/19/23 00:13 58 L 22 98/55 89 L FiO2 02/19/23 22:12 65 02/19/23 16:00 60 02/19/23 15:35 65 02/19/23 14:00 02/19/23 12:38 02/19/23 12:25 65 02/19/23 12:00 65 02/19/23 08:00 64 02/19/23 07:42 02/19/23 07:32 75 02/19/23 06:02 02/19/23 05:00 02/19/23 03:23 80 02/19/23 02:00 02/19/23 01:20 02/19/23 01:15 02/19/23 01:11 80 02/19/23 00:13 Intake and Output 02/19/23 02/19/23 02/20/23 14:59 22:59 06:59 Intake Total 50 118 Output Total 1000 Balance -950 118 Intake: Oral 50 118 Output: Urine 900 Stool 100 Other: Voiding Method Indwelling Catheter # Bowel Movements 150 Weight 81.647 kg GENERAL EXAM: Alert, 87-year-old male, appears malnourished with gross anasarca. HEAD: Normocephalic and atraumatic EYES: Normal reaction of pupils, equal size. No scleral icterus NOSE: Clear with pink turbinates. THROAT: No erythema or exudates. NECK: No masses, no JVD. CHEST: No chest wall deformity. Right upper chest central line LUNGS: Equal air entry with bibasilar inspiratory crackles. No wheeze, rhonchi or dullness. On Airvo 60L and 65%. No conversational dyspnea or accessory muscle use.. CVS: S1 and S2 normal with no audible murmur, irregular rhythm. No extra heart sounds ABDOMEN: Large right upper quadrant peristomal hernia. Colostomy has good fecal output. No hepatosplenomegaly, active bowel sounds, no guarding or rigidity. SPINE: No scoliosis or deformity SKIN: Three left left lower extremity wounds with varying degrees of eschar. One wound at the base of the heel, lateral aspect, and dorsum. There is also a sacral pressure injury with eschar. Scrotum is macerated and there is penile ulceration. CENTRAL NERVOUS SYSTEM: No focal deficits, tone is normal in all 4 extremities. Patient is alert and disoriented. He does follow simple commands appropriately. EXTREMITIES: There is anasarca. No clubbing, or cyanosis. Peripheral pulses are intact. Results - Laboratory Findings CBC and BMP: 02/19/23 07:55 02/19/23 07:55 PT/INR, D-dimer PT 15.7 sec (9.0-12.0) H 02/18/23 09:45 INR 1.6 (<1.2) H 02/18/23 09:45 Abnormal lab findings: Abnormal Labs 02/18/23 02/18/23 02/18/23 09:45 09:45 09:45 WBC 18.1 H RBC 3.34 L Hgb 9.5 L Hct 30.4 L MCHC RDW 19.6 H Neutrophils # 16.8 H Lymphocytes # 0.5 L PT 15.7 H INR 1.6 H APTT 31.0 H Chloride 114 H Carbon Dioxide 12 L BUN 50 H Creatinine 2.82 H Glucose Plasma Lactic Acid Santosh Calcium 8.0 L Troponin I Total Protein 5.9 L Albumin 2.4 L Urine Protein Urine Blood Ur Leukocyte Esterase Urine RBC Urine WBC Urine WBC Clumps Amorphous Sediment Urine Bacteria Hyaline Casts Urine Mucus Urine Yeast (Budding) 02/18/23 02/19/23 02/19/23 09:45 07:55 07:55 WBC 18.5 H RBC 3.50 L Hgb 9.9 L Hct 33.5 L MCHC 29.5 L RDW 20.0 H Neutrophils # 17.2 H Lymphocytes # 0.5 L PT INR APTT Chloride 115 H Carbon Dioxide 11 L BUN 55 H Creatinine 3.21 H Glucose 68 L Plasma Lactic Acid Santosh Calcium 8.2 L Troponin I 0.042 H* Total Protein 5.8 L Albumin 2.3 L Urine Protein Urine Blood Ur Leukocyte Esterase Urine RBC Urine WBC Urine WBC Clumps Amorphous Sediment Urine Bacteria Hyaline Casts Urine Mucus Urine Yeast (Budding) 02/19/23 02/19/23 23:08 23:10 WBC RBC Hgb Hct MCHC RDW Neutrophils # Lymphocytes # PT INR APTT Chloride Carbon Dioxide BUN Creatinine Glucose Plasma Lactic Acid Santosh 2.2 H* Calcium Troponin I Total Protein Albumin Urine Protein 1+ H Urine Blood Large H Ur Leukocyte Esterase Large H Urine RBC >182 H Urine WBC >182 H Urine WBC Clumps Moderate H Amorphous Sediment Occasional H Urine Bacteria Occasional H Hyaline Casts 21 H Urine Mucus Rare H Urine Yeast (Budding) Few H - Diagnostic Findings Chest x-ray: image reviewed Assessment and Plan Assessment: Acute hypoxemic respiratory failure secondary to CHF exacerbation. Currently on AIRVO with settings 60 L and 65%. Chest x-ray on arrival showed cardiomegaly, pulmonary vascular congestion, and bilateral pleural effusions. NT proBNP was elevated at 44,500. Nonischemic cardiomyopathy, echocardiogram done back in September, showed a reduced ejection fraction of 20% and moderate mitral regurgitation. Non-anion gap metabolic acidosis, possibly secondary to acute kidney injury and/or GI fluid loss from ostomy Acute kidney injury, creatinine 3.21 Leukocytosis, cannot rule out underlying infection and sepsis. Paroxysmal atrial fibrillation, rate controlled and anticoagulated on Eliquis Elevated troponins, likely related to his supply/demand mismatch History of bowel perforation and sigmoid resection resulting in a right quadrant colostomy. Subsequently, developing a parastomal hernia and prolapse requiring revision on 12/14/2022. Patient has had subsequent issues with his ostomy and parastomal hernia. Multiple chronic wounds involving the left lower extremity and sacrum. Wound cultures taken on January 29 are polymicrobial including MRSA. Anemia of chronic disease History of CVA/TIA History of DVT and PE Hypertension Hyperlipidemia Benign prostatic hyperplasia, and chronic indwelling urinary catheter Plan: Patient's medications, labs, chest x-ray reviewed Continue Airvo Continue Lasix 40 mg twice a day Monitor urine output Continue 3 A sodium bicarbonate and D5W infusion Blood cultures are pending Empirically covered on a combination of daptomycin, cefepime, Flagyl. Infectious Disease is on the case Anticoagulated on Eliquis Cardiology was consulted Pepcid for GI prophylaxis Overall prognosis is guarded secondary to above-mentioned comorbidities. Patient is a DO NOT RESUSCITATE/DO NOT INTUBATE We will continue to follow I have personally seen and examined the patient, performed the documentation and the assessment and plan as written. Number of minutes spent on the visit:20 Time with Patient: Greater than 30
[2023-02-20 03:05] LABS: African American GFR (CKD) 18 (>60 ml/min/1.73 sqM); Anion Gap 10 mmol/L; Blood Urea Nitrogen 62 mg/dL (9-20); Calcium 7.9 mg/dL (8.4-10.2); Carbon Dioxide 15 mmol/L (22-30); Chloride 113 mmol/L (98-107); Glucose 113 mg/dL (74-99); Non-African American GFR(CKD) 15 (>60 ml/min/1.73 sqM); Potassium 3.8 mmol/L (3.5-5.1); Sodium 138 mmol/L (137-145)
[2023-02-20] MEDS ORDERED: FUROSEMIDE 10 MG/ML 4 ML VIAL IV STA (04:53)
[2023-02-20] MEDS: PANTOPRAZOLE 40 MG TABLET PO SCH (06:10)
[2023-02-20 06:11] LABS: Glucose,Whole Blood 110 mg/dL (70-110)
[2023-02-20] MEDS: metroNIDAZOLE 500 MG TAB PO SCH ×3 (10:01→20:31)
[2023-02-20] MEDS: THIAMINE 100 MG TAB PO SCH ×2 (10:16→18:26)
[2023-02-20] MEDS: METOPROLOL SUCCINATE (ER) 25 MG TAB.ER.24H PO SCH (10:16)
[2023-02-20] MEDS: TAMSULOSIN 0.4 MG CAP.ER.24H PO SCH (10:16)
[2023-02-20] MEDS: FAMOTIDINE 20 MG TAB PO SCH (10:16)
[2023-02-20] MEDS: AMIODARONE 200 MG TAB PO SCH ×2 (10:16→18:26)
[2023-02-20] MEDS: CEFEPIME 1 GM in SODIUM CHLORIDE 0.9% 50 ML IVPB SCH ×2 (10:17→20:28)
[2023-02-20] MEDS: polyethylene glycoL 3350 17 GM POWD.PACK PO SCH (10:17)
[2023-02-20] MEDS: APIXABAN 2.5 MG TABLET PO SCH ×2 (10:17→18:26)
[2023-02-20 12:07] LABS: Glucose,Whole Blood 125 mg/dL (70-110)
--- NOTE | 2023-02-20 13:33 | P.PN ---
Subjective HISTORY OF PRESENT ILLNESS: This is a 87-year-old male with a past medical history significant for atrial fibrillation, congestive heart failure, nonischemic cardiomyopathy, and hyperlipidemia. Patient follows in the office with Dr. Salmon. We have been asked to see the patient in consultation for CHF. Patient examined at the bedside. Patient presented to the hospital with a chief complaint of shortness of breath. Patent was found to be in acute CHF. He was started on IV lasix. He continues to report SOB at the time of examination. He is currently on Airvo. He denies chest pain or pressure. * EKG reveals atrial fibrillation with right bundle branch block. Right axis deviation. * Chest xray cardiomegaly, pulmonary vascular congestion and bilateral pleural effusions. * Laboratory data: WBC 18.5. Hemoglobin 9.9. Platelet count 215. Sodium 137. Potassium 4.4. BUN 55. Creatinine 3.21. troponin 0.042. ProBNP 44,500 * Current home cardiac medications include Eliquis 2.5mg BID, amiodarone 200 mg twice a day, and metoprolol 12.5 mg daily * Most recent echocardiogram obtained in September 2022 revealed ejection fraction 20-25%, mild to moderate mitral regurgitation, mild to moderate aortic regurgitation 02/20/2023 Patient examined this morning at the bedside. Patient denies chest pain or pressure. Patient currently denies shortness of breath. However, the patient appears to be dyspneic upon examination. He is still requiring Airvo. Patient is receiving Lasix 40 mg IV every 12 hours. Patient's creatinine slightly worse today at 3.43, up from 3.2 yesterday. Fluid balance over the last 24 hours is - 132 mL. PHYSICAL EXAM: VITAL SIGNS: Reviewed. GENERAL: Well-developed in no acute distress. HEENT: Head is normocephalic. Pupils are equal, round. Sclerae anicteric. Mucous membranes of the mouth are moist. Neck supple. No JVD or thyromegaly LUNGS: Respirations even and unlabored. Lungs diminished bilaterally. HEART: Regular rate and rhythm. S1 and S2 heard. Systolic murmur noted. ABDOMEN: Soft. Nondistended. Nontender. EXTREMITIES: Normal range of motion. No clubbing or cyanosis. Peripheral pulses intact. No lower extremity edema with wounds noted. NEUROLOGIC: Awake and alert. Oriented x 3. ASSESSMENT: Shortness of breath Acute on chronic heart failure with reduced EF, 20-25% Acute hypoxic respiratory failure, currently on Airvo Acute on chronic kidney disease Persistent atrial fibrillation Nonischemic cardiomyopathy Hyperlipidemia PLAN: No need to repeat echo as this was performed in September Continue current cardiac medications Continue IV lasix Daily weights, accurate I&O, and monitoring of kidney function Prognosis guarded Further recommendations pending patient course Nurse practitioner note has been reviewed by physician. Signing provider agrees with the documented findings, assessment, and plan of care. Objective - Vital Signs Vital signs: Vital Signs Temp 97.5 F L 02/20/23 09:45 Pulse 76 02/20/23 11:49 Resp 18 02/20/23 09:45 BP 108/55 02/20/23 09:45 Pulse Ox 96 02/20/23 11:37 FiO2 82 02/20/23 11:37 Intake & Output 02/19/23 02/20/23 02/20/23 18:59 06:59 18:59 Intake Total 168 450 225 Output Total 1000 450 Balance -832 0 225 Weight 81.647 kg 75 kg Intake: Intake, IV Titration 450 Amount Cefepime 1 gm In Sodium 50 Chloride 0.9% 50 ml @ 12. 5 mls/hr IVPB BID@0800, 2100 KATHLEEN Rx#:[id number] Dextrose 5% in Water 1, 400 000 ml @ 50 mls/hr IV . Q23H KATHLEEN with Sodium Bicarb (1 Meq/ml) 150 ml Rx#:[id number] Oral 168 225 Output: Urine 900 375 Stool 100 75 Other: Voiding Method Indwelling Catheter Indwelling Catheter Indwelling Catheter # Bowel Movements 150 - Labs CBC & Chem 7: 02/19/23 07:55 02/20/23 02:14 Labs: Abnormal Lab Results - Last 24 Hours (Table) 02/19/23 02/19/23 02/20/23 Range/Units 23:08 23:10 00:37 Chloride (98-107) mmol/L Carbon Dioxide (22-30) mmol/L BUN (9-20) mg/dL Creatinine (0.66-1.25) mg/dL Glucose (74-99) mg/dL POC Glucose (mg/dL) 137 H (70-110) mg/dL Plasma Lactic Acid Santosh 2.2 H* (0.7-2.0) mmol/L Calcium (8.4-10.2) mg/dL Urine Protein 1+ H (Negative) Urine Blood Large H (Negative) Ur Leukocyte Esterase Large H (Negative) Urine RBC >182 H (0-5) /hpf Urine WBC >182 H (0-5) /hpf Urine WBC Clumps Moderate H (None) /hpf Amorphous Sediment Occasional H (None) /hpf Urine Bacteria Occasional H (None) /hpf Hyaline Casts 21 H (0-2) /lpf Urine Mucus Rare H (None) /hpf Urine Yeast (Budding) Few H (None) /hpf 02/20/23 02/20/23 Range/Units 02:14 12:06 Chloride 113 H (98-107) mmol/L Carbon Dioxide 15 L (22-30) mmol/L BUN 62 H (9-20) mg/dL Creatinine 3.43 H (0.66-1.25) mg/dL Glucose 113 H (74-99) mg/dL POC Glucose (mg/dL) 125 H (70-110) mg/dL Plasma Lactic Acid Santosh (0.7-2.0) mmol/L Calcium 7.9 L (8.4-10.2) mg/dL Urine Protein (Negative) Urine Blood (Negative) Ur Leukocyte Esterase (Negative) Urine RBC (0-5) /hpf Urine WBC (0-5) /hpf Urine WBC Clumps (None) /hpf Amorphous Sediment (None) /hpf Urine Bacteria (None) /hpf Hyaline Casts (0-2) /lpf Urine Mucus (None) /hpf Urine Yeast (Budding) (None) /hpf Microbiology - Last 24 Hours (Table) 02/18/23 12:20 Blood Culture - Preliminary Blood
--- NOTE | 2023-02-20 18:02 | P.PN ---
Subjective Patient is seen for f/u for VALERI, fluid overload and metabolic acidosis. Maintained on IV lasix for volume overload. Also on bicarb drip for severe metabolic acidosis. Shortness of breath has improved Good UOP. 1275 x 24 hrs. Objective - Vital Signs Vital signs: Vital Signs Temp 97.7 F 02/20/23 12:30 Pulse 51 L 02/20/23 12:30 Resp 16 02/20/23 12:30 BP 131/53 02/20/23 12:30 Pulse Ox 91 L 02/20/23 12:30 FiO2 84 02/20/23 15:54 Intake & Output 02/19/23 02/20/23 02/20/23 18:59 06:59 18:59 Intake Total 168 450 225 Output Total 1000 450 Balance -832 0 225 Weight 81.647 kg 75 kg Intake: Intake, IV Titration 450 Amount Cefepime 1 gm In Sodium 50 Chloride 0.9% 50 ml @ 12. 5 mls/hr IVPB BID@0800, 2100 KATHLEEN Rx#:[id number] Dextrose 5% in Water 1, 400 000 ml @ 50 mls/hr IV . Q23H KATHLEEN with Sodium Bicarb (1 Meq/ml) 150 ml Rx#:[id number] Oral 168 225 Output: Urine 900 375 Stool 100 75 Other: Voiding Method Indwelling Catheter Indwelling Catheter Indwelling Catheter # Bowel Movements 150 - Exam Awake, comfortable No distress. Lungs show decreased breath sounds at bases. CVS S1 and S2 Extremities show edema 1+ bilateral. - Labs CBC & Chem 7: 02/19/23 07:55 02/20/23 02:14 Labs: Abnormal Lab Results - Last 24 Hours (Table) 02/19/23 02/19/23 02/20/23 Range/Units 23:08 23:10 00:37 Chloride (98-107) mmol/L Carbon Dioxide (22-30) mmol/L BUN (9-20) mg/dL Creatinine (0.66-1.25) mg/dL Glucose (74-99) mg/dL POC Glucose (mg/dL) 137 H (70-110) mg/dL Plasma Lactic Acid Santosh 2.2 H* (0.7-2.0) mmol/L Calcium (8.4-10.2) mg/dL Urine Protein 1+ H (Negative) Urine Blood Large H (Negative) Ur Leukocyte Esterase Large H (Negative) Urine RBC >182 H (0-5) /hpf Urine WBC >182 H (0-5) /hpf Urine WBC Clumps Moderate H (None) /hpf Amorphous Sediment Occasional H (None) /hpf Urine Bacteria Occasional H (None) /hpf Hyaline Casts 21 H (0-2) /lpf Urine Mucus Rare H (None) /hpf Urine Yeast (Budding) Few H (None) /hpf 02/20/23 02/20/23 Range/Units 02:14 12:06 Chloride 113 H (98-107) mmol/L Carbon Dioxide 15 L (22-30) mmol/L BUN 62 H (9-20) mg/dL Creatinine 3.43 H (0.66-1.25) mg/dL Glucose 113 H (74-99) mg/dL POC Glucose (mg/dL) 125 H (70-110) mg/dL Plasma Lactic Acid Santosh (0.7-2.0) mmol/L Calcium 7.9 L (8.4-10.2) mg/dL Urine Protein (Negative) Urine Blood (Negative) Ur Leukocyte Esterase (Negative) Urine RBC (0-5) /hpf Urine WBC (0-5) /hpf Urine WBC Clumps (None) /hpf Amorphous Sediment (None) /hpf Urine Bacteria (None) /hpf Hyaline Casts (0-2) /lpf Urine Mucus (None) /hpf Urine Yeast (Budding) (None) /hpf Microbiology - Last 24 Hours (Table) 02/18/23 12:20 Blood Culture - Preliminary Blood Assessment and Plan Assessment: 1. Acute kidney injury nonoliguric secondary to low blood pressure and hemodynamic ATN. Possible component of cardiorenal syndrome. Patient has indwelling Carranza catheter 2. Chronic urine retention maintained on indwelling Carranza catheter for about 2 months now 3. Non-gap metabolic acidosis secondary to acute kidney injury and GI fluid loss from ostomy although no significantly increased output documented. 4. Volume overload currently being diuresed 5. History of bowel ischemia status post bowel resection and colostomy in 2020 6. Left heel ulcer status post antibiotics 7. Cardiomyopathy with EF 20-25% Plan: Continue with IV Lasix Continue low-dose IV bicarb, for severe metabolic acidosis Repeat labs in a.m. Accurate I's and O's Continue with Carranza catheter Continue with Flomax Avoid hypotension.
[2023-02-20 18:03] LABS: Glucose,Whole Blood 129 mg/dL (70-110)
[2023-02-20] MEDS: DEXTROSE 5% IN WATER 1,000 ML with SODIUM BICARB (1 MEQ/ML) 150 ML IV SCH (18:25)
[2023-02-20] MEDS: FOLIC ACID 1 MG TAB PO SCH (18:26)
[2023-02-20] MEDS: FERROUS SULFATE 325 MG TAB PO SCH (18:26)
--- NOTE | 2023-02-20 22:55 | P.PN ---
Subjective Progress Note Date: 02/20/23 Principal diagnosis: Infected pressure ulcers Patient is a 87-year-old male with multiple comorbidities did have a history of left heel infected pressure ulcer s/p surgical debridement culture positive for VRE MRSA and Klebsiella and the patient did have recent drug-ind uced renal failure was brought into the hospital for evaluation of hypoxia and increasing shortness of breath. On today's evaluation that is 02/20/2023, patient denies having any fever or any chills he is breathing slightly comfortably still requiring high flow oxygen denies any chest pain no worsening cough with production abdominal pain or diarrhea Objective - Vital Signs Vital signs: Vital Signs Temp 97.5 F L 02/20/23 09:45 Pulse 47 L 02/20/23 09:45 Resp 18 02/20/23 09:45 BP 108/55 02/20/23 09:45 Pulse Ox 96 02/20/23 09:45 FiO2 82 02/20/23 09:45 Intake & Output 02/19/23 02/20/23 02/20/23 18:59 06:59 18:59 Intake Total 168 450 Output Total 1000 450 Balance -832 0 Weight 81.647 kg 75 kg Intake: Intake, IV Titration 450 Amount Cefepime 1 gm In Sodium 50 Chloride 0.9% 50 ml @ 12. 5 mls/hr IVPB BID@0800, 2100 KATHLEEN Rx#:[id number] Dextrose 5% in Water 1, 400 000 ml @ 50 mls/hr IV . Q23H KATHLEEN with Sodium Bicarb (1 Meq/ml) 150 ml Rx#:[id number] Oral 168 Output: Urine 900 375 Stool 100 75 Other: Voiding Method Indwelling Catheter Indwelling Catheter Indwelling Catheter # Bowel Movements 150 - Exam GENERAL DESCRIPTION: Elderly male lying in bed in no distress RESPIRATORY SYSTEM: Unlabored breathing , decreased breath sounds at bases HEART: S1 S2 regular rate and rhythm ,no loud murmurs ABDOMEN: Soft , no tenderness EXTREMITIES: Left heel wound is currently dressed no drainage patient did have a wound to the sacral area stage III with minimal slough and a wound to the right gluteal/ischial area which is deep and did have significant slough tissue but no surrounding redness - Labs CBC & Chem 7: 02/19/23 07:55 02/20/23 02:14 Labs: Abnormal Lab Results - Last 24 Hours (Table) 02/19/23 02/19/23 02/20/23 Range/Units 23:08 23:10 00:37 Chloride (98-107) mmol/L Carbon Dioxide (22-30) mmol/L BUN (9-20) mg/dL Creatinine (0.66-1.25) mg/dL Glucose (74-99) mg/dL POC Glucose (mg/dL) 137 H (70-110) mg/dL Plasma Lactic Acid Santosh 2.2 H* (0.7-2.0) mmol/L Calcium (8.4-10.2) mg/dL Urine Protein 1+ H (Negative) Urine Blood Large H (Negative) Ur Leukocyte Esterase Large H (Negative) Urine RBC >182 H (0-5) /hpf Urine WBC >182 H (0-5) /hpf Urine WBC Clumps Moderate H (None) /hpf Amorphous Sediment Occasional H (None) /hpf Urine Bacteria Occasional H (None) /hpf Hyaline Casts 21 H (0-2) /lpf Urine Mucus Rare H (None) /hpf Urine Yeast (Budding) Few H (None) /hpf 02/20/23 Range/Units 02:14 Chloride 113 H (98-107) mmol/L Carbon Dioxide 15 L (22-30) mmol/L BUN 62 H (9-20) mg/dL Creatinine 3.43 H (0.66-1.25) mg/dL Glucose 113 H (74-99) mg/dL POC Glucose (mg/dL) (70-110) mg/dL Plasma Lactic Acid Santosh (0.7-2.0) mmol/L Calcium 7.9 L (8.4-10.2) mg/dL Urine Protein (Negative) Urine Blood (Negative) Ur Leukocyte Esterase (Negative) Urine RBC (0-5) /hpf Urine WBC (0-5) /hpf Urine WBC Clumps (None) /hpf Amorphous Sediment (None) /hpf Urine Bacteria (None) /hpf Hyaline Casts (0-2) /lpf Urine Mucus (None) /hpf Urine Yeast (Budding) (None) /hpf Microbiology - Last 24 Hours (Table) 02/18/23 12:20 Blood Culture - Preliminary Blood Assessment and Plan (1) Stage II pressure ulcer of sacral region Current Visit: No Status: Acute Code(s): L89.152 - PRESSURE ULCER OF SACRAL REGION, STAGE 2 SNOMED Code(s): 76219361896080 (2) Unstageable pressure ulcer of left heel Current Visit: No Status: Acute Code(s): L89.620 - PRESSURE ULCER OF LEFT HEEL, UNSTAGEABLE SNOMED Code(s): 24255576088420723 Plan: 1patient with a left heel infected pressure ulcer culture did grow multiple pat hogen including VRE MRSA Klebsiella and anaerobes this patient unfortunately did have renal failure secondary to vancomycin not been to the hospital shortness of breath and hypoxemia likely related to fluid overload. 2we will continue patient on daptomycin cefepime add oral Flagyl 3-local wound care to the left heel wound with Santyl followed by moist dressing keep the area of the pressure Time with Patient: Greater than 30
[2023-02-21] MEDS: FUROSEMIDE 10 MG/ML 4 ML VIAL IV SCH (00:01)
[2023-02-21 00:06] LABS: Glucose,Whole Blood 132 mg/dL (70-110)
[2023-02-21] MEDS: ALBUTEROL NEBULIZED 2.5 MG/3 ML INHALATION SCH ×2 (03:05→08:16)
--- NOTE | 2023-02-21 05:22 | P.PN ---
Subjective Progress Note Date: 02/20/23 patient 87-year-old gentleman with past medical history significant for atrial Fibrillation, CVA/TIA, Deep Vein Thrombosis (DVT), Hyperlipidemia, Hypertension, Prostate Disorder, Pulmonary Embolus (PE), who presented to the ER because of shortness of breath. Patient is currently a resident at [facility]. Patient was recently admitted with concerns for colonic prolapse in the ostomy and was evaluated by general surgery. Stoma reduced on its own. Patient was discharged on IV antibiotics per ID recommendations and to be completed March 01. Patient stated that he woke up this morning and was short of breath. Shortness of breath at rest as well as exertion. Denies any chest pressure. Denies any fe jose or chills. Because his worsening shortness of breath, patient brought to the ER Initial lab work in the ER showed WBC 18.1, hemoglobin 9.5, sodium 137, potassium 4.7, chloride 114, BUN 50, creatinine 2.82 Patient was admitted to medicine service 02/19. Patient seen and examined. Labs were done this morning showed WBC 18.5, hemoglobin 9.9, platelet count 215, sodium 137, potassium 4.4, BUN 55, creatinine 3.21. Currently on heated high flow. States she feels slightly better compared to yesterday 02/20/2023 Patient is seen and evaluated in follow-up today continues to require high amou nts of oxygen maintained on airvo and has gone up on oxygen demands although patient reports improvements in shortness of breath. Patient is dyspneic with exertion and during conversation. Patient is extremely weak and emaciated and continues to decline clinically. Patient is currently no code and discussion was had with daughter with discussions of possible comfort care. Daughter would like patient's brother to be aware and will discuss possible informational hospice consult. Patient is not eating much and maintained on pured diet and tolerating would recommend aspiration precautions. Kidney functions worsening and nephrology is following. Patient also continues on IV Lasix for CHF exacerbation. REVIEW OF SYSTEMS: CONSTITUTIONAL: No fever, no malaise,. CARDIOVASCULAR: No chest pain, no palpitations, no syncope. PULMONARY: No reports of worsening shortness of breath GASTROINTESTINAL: No diarrhea, no nausea, no vomiting, no abdominal pain. NEUROLOGICAL: No headaches, no weakness, PHYSICAL EXAMINATION: GENERAL: The patient is alert , chronically ill-looking, cachectic, muscle wasting noted HEENT: Pupils are round and equally reacting to light. EOMI. No scleral icterus. No conjunctival pallor. Normocephalic, atraumatic. No pharyngeal erythema. No thyromegaly. CARDIOVASCULAR: S1 and S2 present. No murmurs, rubs, or gallops. PULMONARY: Coarse breath sounds bilaterally, scattered rhonchi noted ABDOMEN: Soft, nontender, nondistended, normoactive bowel sounds. No palpable organomegaly. Ostomy seen MUSCULOSKELETAL: No joint swelling or deformity. EXTREMITIES: 2+ pitting edema of lower extremity bilaterally. Left foot ulcer seen, upper extremities edematous and pitting 2+ NEUROLOGICAL: Gross neurological examination did not reveal any focal deficits. Diffusely weak SKIN: No rashes. Assessment: Acute on Chronic hypoxic respiratory failure secondary to CHF exacerbation Acute on chronic CHF with systolic dysfunction secondary to above Dyspnea History of Colonic prolapse that reduced on its own with history of colostomy History of recent polymicrobial lower leg infection acute on chronic kidney disease Anemia of chronic disease History of CVA/TIA Atrial fibrillation history History of DVT with PE Hyperlipidemia Hypertension No code Plan: Recommend continue with Airvo currently at 60/85 and has been increased as patient requiring more oxygen demand and maintaining 91% oxygen saturation Continue with medications and antibiotics with infectious disease following Patient continues on IV Lasix and kidney functions continue to worsen with nephrology and cardiology following Recommend continue with aspiration precautions and pured diet Lengthy discussion was had with daughter in law baron overall prognosis and discussion of hospice and would like to wait until patient's brother comes from out of town so he is aware of the plan and most likely will proceed with hospice with comfort measures. Will discuss with case management once a decision has been made for referrals to be placed Recommend follow-up labs and will continue with local wound care Overall prognosis is poor The impression and plan of care has been dictated by Edith Garcia, Nurse Practitioner as directed. Dr. Phyllis MD I have performed a history and examination and MDM of this patient, discussed the same with the dictator, and agree with the dictator's assessment and plan as written ,documented as a scribe. Based on total visit time, I have performed more than 50% of the visit. Objective - Vital Signs Vital signs: Vital Signs Temp 97.5 F L 02/20/23 03:25 Pulse 52 L 02/20/23 05:04 Resp 22 02/20/23 05:04 BP 106/51 02/20/23 05:04 Pulse Ox 96 02/20/23 05:04 FiO2 83 02/20/23 05:04 Intake & Output 02/19/23 02/20/23 02/20/23 18:59 06:59 18:59 Intake Total 168 450 Output Total 1000 450 Balance -832 0 Weight 81.647 kg 75 kg Intake: Intake, IV Titration 450 Amount Cefepime 1 gm In Sodium 50 Chloride 0.9% 50 ml @ 12. 5 mls/hr IVPB BID@0800, 2100 KATHLEEN Rx#:[id number] Dextrose 5% in Water 1, 400 000 ml @ 50 mls/hr IV . Q23H KATHLEEN with Sodium Bicarb (1 Meq/ml) 150 ml Rx#:[id number] Oral 168 Output: Urine 900 375 Stool 100 75 Other: Voiding Method Indwelling Catheter Indwelling Catheter # Bowel Movements 150 - Labs CBC & Chem 7: 02/19/23 07:55 02/20/23 02:14 Labs: Abnormal Lab Results - Last 24 Hours (Table) 02/19/23 02/19/23 02/20/23 Range/Units 23:08 23:10 00:37 Chloride (98-107) mmol/L Carbon Dioxide (22-30) mmol/L BUN (9-20) mg/dL Creatinine (0.66-1.25) mg/dL Glucose (74-99) mg/dL POC Glucose (mg/dL) 137 H (70-110) mg/dL Plasma Lactic Acid Santosh 2.2 H* (0.7-2.0) mmol/L Calcium (8.4-10.2) mg/dL Urine Protein 1+ H (Negative) Urine Blood Large H (Negative) Ur Leukocyte Esterase Large H (Negative) Urine RBC >182 H (0-5) /hpf Urine WBC >182 H (0-5) /hpf Urine WBC Clumps Moderate H (None) /hpf Amorphous Sediment Occasional H (None) /hpf Urine Bacteria Occasional H (None) /hpf Hyaline Casts 21 H (0-2) /lpf Urine Mucus Rare H (None) /hpf Urine Yeast (Budding) Few H (None) /hpf 02/20/23 Range/Units 02:14 Chloride 113 H (98-107) mmol/L Carbon Dioxide 15 L (22-30) mmol/L BUN 62 H (9-20) mg/dL Creatinine 3.43 H (0.66-1.25) mg/dL Glucose 113 H (74-99) mg/dL POC Glucose (mg/dL) (70-110) mg/dL Plasma Lactic Acid Santosh (0.7-2.0) mmol/L Calcium 7.9 L (8.4-10.2) mg/dL Urine Protein (Negative) Urine Blood (Negative) Ur Leukocyte Esterase (Negative) Urine RBC (0-5) /hpf Urine WBC (0-5) /hpf Urine WBC Clumps (None) /hpf Amorphous Sediment (None) /hpf Urine Bacteria (None) /hpf Hyaline Casts (0-2) /lpf Urine Mucus (None) /hpf Urine Yeast (Budding) (None) /hpf Microbiology - Last 24 Hours (Table) 02/18/23 12:20 Blood Culture - Preliminary Blood
[2023-02-21] MEDS: PANTOPRAZOLE 40 MG TABLET PO SCH (05:45)
[2023-02-21 06:01] LABS: Glucose,Whole Blood 112 mg/dL (70-110)
[2023-02-21 08:27] VITALS: RESP 20
[2023-02-21 08:46] LABS: African American GFR (CKD) 15 (>60 ml/min/1.73 sqM); Anion Gap 12 mmol/L; Blood Urea Nitrogen 68 mg/dL (9-20); Calcium 7.9 mg/dL (8.4-10.2); Carbon Dioxide 17 mmol/L (22-30); Chloride 108 mmol/L (98-107); Glucose 108 mg/dL (74-99); Non-African American GFR(CKD) 13 (>60 ml/min/1.73 sqM); Potassium 3.3 mmol/L (3.5-5.1); Sodium 137 mmol/L (137-145)
[2023-02-21 10:21] LABS: Glucose,Whole Blood 142 mg/dL (70-110)
[2023-02-21] MEDS: AMIODARONE 200 MG TAB PO SCH (10:45)
[2023-02-21] MEDS: TAMSULOSIN 0.4 MG CAP.ER.24H PO SCH (10:46)
[2023-02-21] MEDS: APIXABAN 2.5 MG TABLET PO SCH (10:46)
[2023-02-21] MEDS: metroNIDAZOLE 500 MG TAB PO SCH (10:46)
[2023-02-21] MEDS: polyethylene glycoL 3350 17 GM POWD.PACK PO SCH (10:46)
[2023-02-21] MEDS: METOPROLOL SUCCINATE (ER) 25 MG TAB.ER.24H PO SCH (10:46)
[2023-02-21] MEDS: FAMOTIDINE 20 MG TAB PO SCH (10:50)
[2023-02-21] MEDS: THIAMINE 100 MG TAB PO SCH (10:50)
[2023-02-21] MEDS: CEFEPIME 1 GM in SODIUM CHLORIDE 0.9% 50 ML IVPB SCH (10:51)
--- NOTE | 2023-02-21 12:39 | P.PN ---
Subjective Patient is seen for f/u for VALERI, fluid overload and metabolic acidosis. Maintained on IV lasix for volume overload. Also on bicarb drip for severe metabolic acidosis. Shortness of breath is somewhat better than on admission. Good UOP. 1275 x 24 hrs. This morning patient was barely responsive. Hospice care was discussed with family and there are plans to proceed with hospice care given his underlying comorbidities. Renal function has not improved and patient remains quite ill. He is not an ideal candidate for renal replacement therapy down the road. At the time of my exam patient is awake and is able to onset questions. Family is present at bedside. They would like to proceed with hospice care. Objective - Vital Signs Vital signs: Vital Signs Temp 97.5 F L 02/21/23 04:00 Pulse 50 L 02/21/23 08:27 Resp 20 02/21/23 08:27 BP 102/48 02/21/23 04:00 Pulse Ox 92 L 02/21/23 08:16 FiO2 80 02/21/23 08:16 Intake & Output 02/20/23 02/21/23 02/21/23 18:59 06:59 18:59 Intake Total 335 450 240 Output Total 100 725 Balance 235 -275 240 Weight 74 kg Intake: Intake, IV Titration 450 Amount Cefepime 1 gm In Sodium 50 Chloride 0.9% 50 ml @ 12. 5 mls/hr IVPB BID@0800, 2100 KATHLEEN Rx#:[id number] Dextrose 5% in Water 1, 400 000 ml @ 50 mls/hr IV . Q23H KATHLEEN with Sodium Bicarb (1 Meq/ml) 150 ml Rx#:[id number] Oral 335 240 Output: Urine 675 Stool 100 50 Other: Voiding Method Indwelling Catheter Indwelling Catheter # Bowel Movements 1 - Exam Awake, comfortable No distress. Mild shortness of breath Lungs show decreased breath sounds at bases. Abdomen is soft nontender CVS S1 and S2 Extremities show edema 1+ bilateral. - Labs CBC & Chem 7: 02/19/23 07:55 02/21/23 07:13 Labs: Abnormal Lab Results - Last 24 Hours (Table) 02/20/23 02/21/23 02/21/23 Range/Units 18:01 00:03 05:59 Potassium (3.5-5.1) mmol/L Chloride (98-107) mmol/L Carbon Dioxide (22-30) mmol/L BUN (9-20) mg/dL Creatinine (0.66-1.25) mg/dL Glucose (74-99) mg/dL POC Glucose (mg/dL) 129 H 132 H 112 H (70-110) mg/dL Calcium (8.4-10.2) mg/dL 02/21/23 02/21/23 Range/Units 07:13 10:12 Potassium 3.3 L (3.5-5.1) mmol/L Chloride 108 H (98-107) mmol/L Carbon Dioxide 17 L (22-30) mmol/L BUN 68 H (9-20) mg/dL Creatinine 3.82 H (0.66-1.25) mg/dL Glucose 108 H (74-99) mg/dL POC Glucose (mg/dL) 142 H (70-110) mg/dL Calcium 7.9 L (8.4-10.2) mg/dL Microbiology - Last 24 Hours (Table) 02/18/23 12:20 Blood Culture - Preliminary Blood 02/19/23 23:10 Urine Culture - Final Urine,Voided Assessment and Plan Assessment: 1. Acute kidney injury nonoliguric secondary to low blood pressure and hemodynamic ATN. Possible component of cardiorenal syndrome. Patient has indwelling Carranza catheter. Renal function is worsening. Patient is not an i deal candidate for renal replacement therapy. 2. Chronic urine retention maintained on indwelling Carranza catheter for about 2 months now 3. Non-gap metabolic acidosis secondary to acute kidney injury and GI fluid loss from ostomy although no significantly increased output documented. 4. Volume overload currently being diuresed 5. History of bowel ischemia status post bowel resection and colostomy in 2020 6. Left heel ulcer status post antibiotics 7. Cardiomyopathy with EF 20-25% Plan: Activity with plans for hospice care.
--- NOTE | 2023-02-21 13:12 | P.DS ---
Providers Date of admission: 02/18/23 12:45 Expected date of discharge: 02/21/23 Attending physician: Felix Houser Consults: 02/18/23 12:40 Consult Physician Routine Consulting Provider: Constantine Dobbs Consult Reason/Comments: heart failure Do you want consulting provider notified?: Yes 02/18/23 14:29 Consult Physician Routine Consulting Provider: Toney Olivares Consult Reason/Comments: Left foot ulcer, currently on IV antibiotics Do you want consulting provider notified?: Yes 02/19/23 10:08 Consult Physician Routine Consulting Provider: Nalini Ruiz Consult Reason/Comments: acute on chronic kidney disease Do you want consulting provider notified?: Yes 02/19/23 14:34 Consult Physician Routine Consulting Provider: Eliot Durant Consult Reason/Comments: Acute on chronic hypoxemic history failure Do you want consulting provider notified?: Yes Primary care physician: Domingo Silva Hospital Course: Final diagnosis Acute on Chronic hypoxic respiratory failure secondary to CHF exacerbation Acute on chronic CHF with systolic dysfunction secondary to above Dyspnea History of Colonic prolapse that reduced on its own with history of colostomy History of recent polymicrobial lower leg infection acute on chronic kidney disease Anemia of chronic disease History of CVA/TIA Atrial fibrillation history History of DVT with PE Hyperlipidemia Hypertension No code Discharge disposition Patient is being made [facility] inpatient GIP and comfort measures only . Multiple family members present at bedside. Total time taken is greater than 35 minutes. Hospital course This is a 87-year-old male who was recently admitted with shortness of breath and severe CHF exacerbation requiring high flow oxygen with worsening respiratory status and severe hypoxia and clinical decline over the last few months. Patient was no code and had been in and out of nursing homes and continuing to decline with worsening oral intake and high aspiration risk. Kenna brennan has met with hospice and agreeable to [facility] and met inpatient criteria. Patient will be started on morphine drip. We'll continue to follow during hospitalization. Please refer to other documentation for further HPI. Currently no reports of chest pain, shortness of breath, or palpitations. Patient is afebrile. No reports of nausea or vomiting and patient is tolerating diet. Patient is going inpatient hospice today with comfort measures only. Physical exam: Gen: This is a 87-year-old male who is awake, alert and oriented 2, thin built, elderly appearing HEENT: Head is atraumatic, normocephalic. Pupils equal, round. Sclerae is anicteric. NECK: Supple. No JVD. No lymphadenopathy. No thyromegaly. LUNGS: Diminished breath sounds bilaterally with some scattered rhonchi and crackles noted. No intercostal retractions. HEART: Regular rate and rhythm. No murmur. ABDOMEN: Soft. Thin Bowel sounds are present. No masses. No tenderness. EXTREMITIES: No pedal edema. No calf tenderness. Generalized edema noted on bilateral upper and lower extremities NEUROLOGICAL: Patient is awake, alert and oriented x2. Diffusely weak Please refer to medication reconciliation sheet for a list of medications. The impression and plan of care has been dictated by Edith Garcia, Nurse Practitioner as directed. Dr. Phyllis MD I have performed a history and examination and MDM of this patient, discussed the same with the dictator, and agree with the dictator's assessment and plan as written ,documented as a scribe. Based on total visit time, I have performed more than 50% of the visit. Patient Condition at Discharge: Poor Plan - Discharge Summary Discharge Rx Participant: No New Discharge Prescriptions: No Action Tamsulosin HCl [Flomax] 0.4 mg PO DAILY@0800 Pantoprazole Sodium [Protonix] 40 mg PO DAILY@0600 Albuterol Inhaler [Ventolin Hfa Inhaler] 2 puff INHALATION RT-Q6H bisacodyL [Dulcolax] 10 mg RECTAL DAILY PRN PRN Reason: Constipation Ensure Enlive 237 ml PO TID@0800,1200,1700 Apixaban [Eliquis] 2.5 mg PO BID@0800,1700 Eucerin Advanced Repair Cream 1 applic TOPICAL DAILY Aspirin 81 mg PO DAILY@1200 polyethylene glycoL 3350 [Miralax] 17 gm PO DAILY@0800 Multivitamins, Thera [Multivitamin (formulary)] 1 tab PO DAILY@1700 Metoprolol Succinate (ER) [Toprol XL] 12.5 mg PO DAILY@0800 Lactulose 30 gm PO DAILY@0800 DAPTOmycin [Cubicin] 400 mg IVPB Q48H each metroNIDAZOLE [Flagyl] 500 mg PO TID@0800,1400,2100 Famotidine [Pepcid] 20 mg PO DAILY tab HYDROcodone/APAP 5-325MG [Cecil 5-325] 1 tab PO Q6HR PRN 3 Days #6 tab PRN Reason: Pain Magnesium Hydroxide [Milk of Magnesia Concentrate] 7,200 mg PO Q2D PRN PRN Reason: Constipation Na Phos,M-B/Na Phos,Di-Ba [Fleet Adult] 133 ml RECTAL DAILY PRN PRN Reason: Constipation Eucerin Advanced Repair Cream 1 applic TOPICAL DAILY PRN PRN Reason: Dry Skin Amiodarone [Cordarone] 200 mg PO BID@0800,1700 Thiamine [Vitamin B-1] 100 mg PO BID@0800,1700 Ferrous Sulfate [Iron (65 MG Elemental)] 325 mg PO DAILY@1700 Folic Acid 1 mg PO DAILY@1700 Acetaminophen Tab [Tylenol] 650 mg PO Q6HR PRN tab PRN Reason: Mild Pain Or Fever > 100.5 Cefepime [Maxipime] 1 gm IVPB Q12HR@0800,2100 #0 Collagenase [Santyl Ointment] 1 applic TOPICAL DAILY PRN PRN Reason: Right ischium Collagenase [Santyl Ointment] 1 applic TOPICAL DAILY Discharge Medication List Tamsulosin HCl [Flomax] 0.4 mg PO DAILY@0800 02/14/18 [History] Pantoprazole Sodium [Protonix] 40 mg PO DAILY@0600 10/20/22 [History] Albuterol Inhaler [Ventolin Hfa Inhaler] 2 puff INHALATION RT-Q6H 10/28/22 [History] Apixaban [Eliquis] 2.5 mg PO BID@0800,1700 10/28/22 [History] Aspirin 81 mg PO DAILY@1200 10/28/22 [History] Ensure Enlive 237 ml PO TID@0800,1200,1700 10/28/22 [History] Eucerin Advanced Repair Cream 1 applic TOPICAL DAILY 10/28/22 [History] Eucerin Advanced Repair Cream 1 applic TOPICAL DAILY PRN 10/28/22 [History] Na Phos,M-B/Na Phos,Di-Ba [Fleet Adult] 133 ml RECTAL DAILY PRN 10/28/22 [History] bisacodyL [Dulcolax] 10 mg RECTAL DAILY PRN 10/28/22 [History] Amiodarone [Cordarone] 200 mg PO BID@0800,1700 12/14/22 [History] Ferrous Sulfate [Iron (65 MG Elemental)] 325 mg PO DAILY@17001/09/23 [History] Lactulose 30 gm PO DAILY@0800 01/09/23 [History] Metoprolol Succinate (ER) [Toprol XL] 12.5 mg PO DAILY@0800 01/09/23 [History] Multivitamins, Thera [Multivitamin (formulary)] 1 tab PO DAILY@17001/09/23 [History] Thiamine [Vitamin B-1] 100 mg PO BID@0800,1700 01/09/23 [History] polyethylene glycoL 3350 [Miralax] 17 gm PO DAILY@0800 01/09/23 [History] DAPTOmycin [Cubicin] 400 mg IVPB Q48H each 02/05/23 [Rx] Folic Acid 1 mg PO DAILY@17002/10/23 [History] metroNIDAZOLE [Flagyl] 500 mg PO TID@0800,1400,2100 02/10/23 [History] Acetaminophen Tab [Tylenol] 650 mg PO Q6HR PRN tab 02/12/23 [Rx] Cefepime [Maxipime] 1 gm IVPB Q12HR@0800,2100 #0 02/12/23 [Rx] Famotidine [Pepcid] 20 mg PO DAILY tab 02/12/23 [Rx] HYDROcodone/APAP 5-325MG [Cecil 5-325] 1 tab PO Q6HR PRN 3 Days #6 tab 02/12/23 [Rx] Collagenase [Santyl Ointment] 1 applic TOPICAL DAILY 02/18/23 [History] Collagenase [Santyl Ointment] 1 applic TOPICAL DAILY PRN 02/18/23 [History] Magnesium Hydroxide [Milk of Magnesia Concentrate] 7,200 mg PO Q2D PRN 02/18/23 [History] Follow up Appointment(s)/Referral(s): Domingo Silva MD [Primary Care Provider] - 1-2 days Discharge Disposition: DISCH TO [facility]
[2023-02-21 14:19] VITALS: BP 102/52; PULSE 56; TEMP 97.7
== END 2023-02-21 11:44 | disposition hospice, inpatient (51) | DRG 291 ==
LOC: EC 09:07 → 3SCARD 12:45
PROVIDERS: ADMIT Hospitalist; ATTEND Hospitalist
DX: I13.0 Hypertensive heart and chronic kidney disease with heart failure and stage 1 through stage 4 chronic kidney disease, or unspecified chronic kidney disease (principal); I50.23 Acute on chronic systolic (congestive) heart failure; J96.21 Acute and chronic respiratory failure with hypoxia; N17.0 Acute kidney failure with tubular necrosis; I69.351 Hemiplegia and hemiparesis following cerebral infarction affecting right dominant side; I48.19 Other persistent atrial fibrillation; B37.49 Other urogenital candidiasis; E87.20 Acidosis, unspecified; K94.09 Other complications of colostomy; J90 Pleural effusion, not elsewhere classified; I42.8 Other cardiomyopathies; E78.5 Hyperlipidemia, unspecified; I08.0 Rheumatic disorders of both mitral and aortic valves; E86.9 Volume depletion, unspecified; R33.8 Other retention of urine; D63.1 Anemia in chronic kidney disease; I69.328 Other speech and language deficits following cerebral infarction; N40.1 Benign prostatic hyperplasia with lower urinary tract symptoms; E11.621 Type 2 diabetes mellitus with foot ulcer; E11.22 Type 2 diabetes mellitus with diabetic chronic kidney disease; Z87.19 Personal history of other diseases of the digestive system; Z88.8 Allergy status to other drugs, medicaments and biological substances; Y84.8 Other medical procedures as the cause of abnormal reaction of the patient, or of later complication, without mention of misadventure at the time of the procedure; Z86.14 Personal history of Methicillin resistant Staphylococcus aureus infection; Z86.711 Personal history of pulmonary embolism; Z86.010 Personal history of colon polyps; Z86.79 Personal history of other diseases of the circulatory system
CPT/HCPCS: 36415; 71046; 80048; 80053; 81001; 83605; 83880; 84484; 85025; 85610; 85730; 87040; 87086; 93005; 94640; 94760; 96365; 96366; 96368; 96375; 96376; 99285

== ENCOUNTER 2023-02-21 11:09 | Inpatient (IN) | payer MEDICAID ==
[2023-02-21] MEDS ORDERED: LORazepam 2 MG/ML INJ IV PRN (11:10)
[2023-02-21] MEDS ORDERED: ONDANSETRON 4 MG/2 ML VIAL IVP PRN (11:10)
[2023-02-21] MEDS ORDERED: ACETAMINOPHEN SUPPOSITORY 650 MG SUPP RECTAL PRN (11:10)
[2023-02-21] MEDS ORDERED: MORPHINE SULFATE 2 MG/ML SYRINGE IV PRN (11:10)
[2023-02-21] MEDS ORDERED: GLYCOPYRROLATE 0.2 MG/ML 2 ML VIAL IVP PRN (11:10)
[2023-02-21] MEDS ORDERED: ATROPINE OPHTH SOLN 1% 5ML BTL SUBLINGUAL PRN (11:10)
[2023-02-21] MEDS ORDERED: MORPHINE SULFATE (100 MG/2 ML) 100 MG in SODIUM CHLORIDE 0.9% 100 ML IV SCH (11:30)
[2023-02-21] MEDS ORDERED: SCOPOLAMINE 1 MG/72 HR PATCH TRANSDERM SCH (12:00)
--- NOTE | 2023-02-21 12:34 | P.PN ---
Subjective Progress Note Date: 02/21/23 I am seeing this patient in new consultation today 02/20/2023 on the cardiac stepdown unit for acute hypoxemic respiratory failure secondary to CHF exacerbation. Patient is an 87-year-old male who is a poor historian, and has past medical history significant for congestive heart failure, atrial fibrillat ion, previous CVA/TIA, DVT, pulmonary embolism, hypertension, hyperlipidemia, bowel perforation status post partial colectomy and colostomy, parastomal hernia, BPH, chronic indwelling urinary catheter, multiple chronic wounds. Patient did recently have an admission for a colostomy prolapse and repair in November,. Patient is debilitated secondary to his multiple comorbidities, and resides at [facility] [email or web address] Patient was found to be hypoxic at the outside facility, and was transferred to the emergency room yesterday morning. Chest x-ray on arrival was consistent with CHF exacerbation. The patient is currently lying in bed, on AIRVO 60 L and 65%, in no apparent distress. He appears weak and debilitated. He denies any specific complaints. Blood pressure is marginal. There is gross anasarca. He has been started on Lasix 40 mg twice a day. He has multiple chronic wounds of his left lower extremity and there is a decubitus sacral ulcer. His scrotum is macerated and there is ulceration of his penis. Wounds were last cultured on February 01, and were positive for polymicrobial bacteria including MRSA. The patient does have a right upper chest Gan catheter, and he was reportedly receiving antibiotics at [facility]. It does not appear that the central line dressing has been changed since January 29. Abdomen appears nonacute. There is a right upper quadrant large parastomal hernia, colostomy has good fecal output. Most recent CBC from yesterday shows a WBC count of 18.5, hemoglobin 9.9, hematocrit 33.5, platelets 215. BMP shows a sodium 137, potassium 4.4, chloride 115, serum bicarb 11, BUN 55, creatinine 3.21, glucose 68. There is a component of acute kidney injury, and nephrology has been consulted. The patient has been started on a 3 amp sodium bicarbonate and D5W infusion at 50 ML's per hour. The patient is being empirically covered on a combination of daptomycin, cefepime, and Flagyl. He has been afebrile. Lactic acid level was mildly elevated at 2.2. Blood cultures are pending. Troponins mildly elevated on arrival at 0.042. ECG is consistent with atrial fibrillation with a slow ventricular rate of 58 bpm and right bundle branch block. No obvious acute ischemic changes. Patient is anticoagulated on Eliquis. Patient is a DO NOT RESUSCITATE/DO NOT INTUBATE. He will be monitored on the cardiac stepdown unit. The patient is seen today 02/21/2023 in follow-up on the selective care unit. He is currently doing quite poorly. Minimally responsive. Requiring AirVo high flow oxygen at 60 L and 80% FiO2. Staff had found him with his oxygen off and he had saturations at 77%. Oxygen placed back on his back in the upper 80s. Cultures revealed no growth. Urine culture revealed no growth. Sodium 137. Potassium 3.3. Bicarb 17. BUN 68. Creatinine 3.82. Glucose 108. He is continued on bronchodilators, daptomycin, IV diuretics. Anticoagulated with Eliquis. Objective - Vital Signs Vital signs: Vital Signs Temp Pulse Resp BP Pulse Ox FiO2 80 02/21/23 12:22 Intake & Output 02/20/23 02/21/23 02/21/23 18:59 06:59 18:59 Weight 74 kg - Exam GENERAL EXAM: Unresponsive, 87-year-old male, on AirVo high flow oxygen, appears malnourished with gross anasarca. HEAD: Normocephalic and atraumatic EYES: Normal reaction of pupils, equal size. No scleral icterus NOSE: Clear with pink turbinates. THROAT: No erythema or exudates. NECK: No masses, no JVD. CHEST: No chest wall deformity. Right upper chest central line LUNGS: Equal air entry with bibasilar inspiratory crackles and scattered rhonchi. CVS: S1 and S2 normal with no audible murmur, irregular rhythm. No extra heart sounds ABDOMEN: Large right upper quadrant peristomal hernia. Colostomy has good fecal output. No hepatosplenomegaly, active bowel sounds, no guarding or rigidity. SPINE: No scoliosis or deformity SKIN: Three left left lower extremity wounds with varying degrees of eschar. One wound at the base of the heel, lateral aspect, and dorsum. There is also a sacral pressure injury with eschar. Scrotum is macerated and there is penile ulceration. CENTRAL NERVOUS SYSTEM: Unresponsive, tone is normal in all 4 extremities. EXTREMITIES: There is anasarca. No clubbing, or cyanosis. Peripheral pulses are intact. Assessment and Plan Assessment: Acute hypoxemic respiratory failure secondary to systolic CHF exacerbation. Currently on AIRVO with settings 60 L and 80%. Chest x-ray on arrival showed cardiomegaly, pulmonary vascular congestion, and bilateral pleural effusions. NT proBNP was elevated at 44,500. Nonischemic cardiomyopathy, echocardiogram done back in September, showed a reduced ejection fraction of 20% and moderate mitral regurgitation. Non-anion gap metabolic acidosis, possibly secondary to acute kidney injury and/or GI fluid loss from ostomy Acute kidney injury, creatinine 3.21 Leukocytosis, cannot rule out underlying infection and sepsis. Paroxysmal atrial fibrillation, rate controlled and anticoagulated on Eliquis Elevated troponins, likely related to his supply/demand mismatch History of bowel perforation and sigmoid resection resulting in a right quadrant colostomy. Subsequently, developing a parastomal hernia and prolapse requiring revision on 12/14/2022. Patient has had subsequent issues with his ostomy and parastomal hernia. Multiple chronic wounds involving the left lower extremity and sacrum. Wound cultures taken on January 29 are polymicrobial including MRSA. Anemia of chronic disease History of CVA/TIA History of DVT and PE Hypertension Hyperlipidemia Benign prostatic hyperplasia, and chronic indwelling urinary catheter Plan: The patient was seen and evaluated Labs and medications reviewed The patient is doing quite poorly Currently unresponsive Family at the bedside They are considering hospice DO NOT RESUSCITATE/DO NOT INTUBATE CODE STATUS I have personally seen and examined the patient, performed the documentation and the assessment and plan as written. Number of minutes spent on the visit: 10.
[2023-02-21 15:39] VITALS: PULSE 61; RESP 20
--- NOTE | 2023-02-21 19:12 | P.HPIM ---
History of Present Illness H&P Date: 02/21/23 THis is an 87-year-old gentleman with past medical history significant for atrial Fibrillation, CVA/TIA, Deep Vein Thrombosis (DVT), Hyperlipidemia, Hypertension, Prostate Disorder, Pulmonary Embolus (PE), who presented to the ER because of shortness of breath. Patient is currently a resident at [facility]. Patient was recently admitted with concerns for colonic prolapse in the ostomy and was evaluated by general surgery. Stoma reduced on its own. Patient was discharged on IV antibiotics per ID recommendations and to be completed March 01. Patient stated that he woke up this morning and was short of breath. Shortness of breath at rest as well as exertion. Denies any chest pressure. Denies any fever or chills. Because his worsening shortness of breath, patient brought to the ER Initial lab work in the ER showed WBC 18.1, hemoglobin 9.5, sodium 137, potassium 4.7, chloride 114, BUN 50, creatinine 2.82 Patient was admitted to medicine service 02/19. Patient seen and examined. Labs were done this morning showed WBC 18.5, hemoglobin 9.9, platelet count 215, sodium 137, potassium 4.4, BUN 55, creatinine 3.21. Currently on heated high flow. States she feels slightly better compared to yesterday 02/20/2023 Patient is seen and evaluated in follow-up today continues to require high amounts of oxygen maintained on airvo and has gone up on oxygen demands although patient reports improvements in shortness of breath. Patient is dyspneic with exertion and during conversation. Patient is extremely weak and emaciated and continues to decline clinically. Patient is currently no code and discussion was had with daughter with discussions of possible comfort care. Daughter would like patient's brother to be aware and will discuss possible informational hospice consult. Patient is not eating much and maintained on pured diet and tolerating would recommend aspiration precautions. Kidney functions worsening and nephrology is following. Patient also continues on IV Lasix for CHF exacerbation. 02/21/2023 Patient was seen and evaluated in follow-up with family at bedside and have decided to meet with [facility] with comfort measures. [facility] evaluated the patient and meets inpatient criteria and will be flipping to GIP [facility] hospice comfort measures only. Patient is currently maintained on Airvo requiring high amounts of high flow oxygen and had a brief episode this morning of attempting to take his oxygen off and quickly desaturated and became hypoxic. Patient also not tolerating oral intake and also had an episode of choking likely aspiration and was unresponsive for a few minutes. Patient is awake and alert and talking with brother at the bedside. Daughter who is the decision maker is also at the bedside with family. Patient will be monitored on comfort measures only and morphine drip is being started. REVIEW OF SYSTEMS: CONSTITUTIONAL: No fever, no malaise,. CARDIOVASCULAR: No chest pain, no palpitations, no syncope. PULMONARY: No reports of worsening shortness of breath GASTROINTESTINAL: No diarrhea, no nausea, no vomiting, no abdominal pain. NEUROLOGICAL: No headaches, no weakness, PHYSICAL EXAMINATION: GENERAL: The patient is alert , chronically ill-looking, cachectic, muscle wasting noted HEENT: Pupils are round and equally reacting to light. EOMI. No scleral icterus. No conjunctival pallor. Normocephalic, atraumatic. No pharyngeal erythema. No thyromegaly. CARDIOVASCULAR: S1 and S2 present. No murmurs, rubs, or gallops. PULMONARY: Coarse breath sounds bilaterally, scattered rhonchi noted ABDOMEN: Soft, nontender, nondistended, normoactive bowel sounds. No palpable organomegaly. Ostomy seen MUSCULOSKELETAL: No joint swelling or deformity. EXTREMITIES: 2+ pitting edema of lower extremity bilaterally. Left foot ulcer seen, upper extremities edematous and pitting 2+ NEUROLOGICAL: Gross neurological examination did not reveal any focal deficits. Diffusely weak SKIN: No rashes. Assessment: Acute on Chronic hypoxic respiratory failure secondary to CHF exacerbation Acute on chronic CHF with systolic dysfunction secondary to above Dyspnea History of Colonic prolapse that reduced on its own with history of colostomy History of recent polymicrobial lower leg infection acute on chronic kidney disease Anemia of chronic disease History of CVA/TIA Atrial fibrillation history History of DVT with PE Hyperlipidemia Hypertension No code Plan: Plan is for [facility] met and met inpatient criteria for comfort measures only and patient is going to be started on morphine drip Patient currently maintained on airvo and will be titrated once patient is more comfortable. Family members at bedside with questions and concerns were answered to the best of our ability We will continue to follow with [facility] and respect comfort measures only Overall prognosis is poor The impression and plan of care has been dictated by Edith Garcia, Nurse Practitioner as directed. Dr. Phyllis MD I have performed a history and examination and MDM of this patient, discussed th e same with the dictator, and agree with the dictator's assessment and plan as written ,documented as a scribe. Based on total visit time, I have performed more than 50% of the visit. 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 History of Any Multi-Drug Resistant Organisms: MRSA Date of last positivie culture/infection: 01/14/23 MDRO Source:: Left Heel Past Surgical History: Bowel Resection Additional Past Surgical History / Comment(s): 2020 bowel resection/colostomy, CVA in 1955 which made need for R elbow surgery/R ankle fusion, post cva surgery on back to remove blood clot, bilateral eye lens implants. Past Anesthesia/Blood Transfusion Reactions: No Reported Reaction Additional Past Anesthesia/Blood Transfusion Reaction / Comment(s): Pt believes he has received blood in past without reaction. Past Psychological History: No Psychological Hx Reported Smoking Status: Former smoker Past Alcohol Use History: None Reported Past Drug Use History: None Reported - Past Family History Mother Family Medical History: Dementia Additional Family Medical History / Comment(s): ALZHEIMERS Father Family Medical History: No Reported History Additional Family Medical History / Comment(s): Pt states his father was healthy Medications and Allergies Home Medications Medication Instructions Recorded Confirmed Type Tamsulosin HCl [Flomax] 0.4 mg PO DAILY@0800 02/14/18 02/18/23 History Pantoprazole Sodium [Protonix] 40 mg PO DAILY@0600 10/20/22 02/18/23 History Albuterol Inhaler [Ventolin Hfa 2 puff INHALATION RT-Q6H 10/28/22 02/18/23 History Inhaler] Apixaban [Eliquis] 2.5 mg PO BID@0800,1700 10/28/22 02/18/23 History Aspirin 81 mg PO DAILY@1200 10/28/22 02/18/23 History Ensure Enlive 237 ml PO TID@0800,1200,1700 10/28/22 02/18/23 History Eucerin Advanced Repair Cream 1 applic TOPICAL DAILY 10/28/22 02/18/23 History Eucerin Advanced Repair Cream 1 applic TOPICAL DAILY PRN 10/28/22 02/18/23 History Na Phos,M-B/Na Phos,Di-Ba [Fleet 133 ml RECTAL DAILY PRN 10/28/22 02/18/23 History Adult] bisacodyL [Dulcolax] 10 mg RECTAL DAILY PRN 10/28/22 02/18/23 History Amiodarone [Cordarone] 200 mg PO BID@0800,1700 12/14/22 02/18/23 History Ferrous Sulfate [Iron (65 MG 325 mg PO DAILY@17001/09/23 02/18/23 History Elemental)] Lactulose 30 gm PO DAILY@0800 01/09/23 02/18/23 History Metoprolol Succinate (ER) [Toprol 12.5 mg PO DAILY@0800 01/09/23 02/18/23 History XL] Multivitamins, Thera [Multivitamin 1 tab PO DAILY@0 01/09/23 02/18/23 History (formulary)] Thiamine [Vitamin B-1] 100 mg PO BID@0800,1700 01/09/23 02/18/23 History polyethylene glycoL 3350 [Miralax] 17 gm PO DAILY@0800 01/09/23 02/18/23 History DAPTOmycin [Cubicin] 400 mg IVPB Q48H each 02/05/23 02/18/23 Rx Folic Acid 1 mg PO DAILY@1700 02/10/23 02/18/23 History metroNIDAZOLE [Flagyl] 500 mg PO TID@0800,1400,2100 02/10/23 02/18/23 History Acetaminophen Tab [Tylenol] 650 mg PO Q6HR PRN tab 02/12/23 02/18/23 Rx Cefepime [Maxipime] 1 gm IVPB Q12HR@0800,2100 #0 02/12/23 02/18/23 Rx Famotidine [Pepcid] 20 mg PO DAILY tab 02/12/23 02/18/23 Rx HYDROcodone/APAP 5-325MG [[place] 1 tab PO Q6HR PRN 3 Days #6 tab 02/12/23 02/18/23 Rx 5-325] Collagenase [Santyl Ointment] 1 applic TOPICAL DAILY 02/18/23 02/18/23 History Collagenase [Santyl Ointment] 1 applic TOPICAL DAILY PRN 02/18/23 02/18/23 History Magnesium Hydroxide [Milk of 7,200 mg PO Q2D PRN 02/18/23 02/18/23 History Magnesia Concentrate] Allergies Allergy/AdvReac Type Severity Reaction Status Date / Time memantine [From Namenda] AdvReac Nausea & Verified 02/18/23 10:27 Vomiting & Diarrhea Physical Exam Vitals: Vital Signs FiO2 02/21/23 12:22 80 Intake and Output 02/20/23 02/21/23 02/21/23 22:59 06:59 14:59 Other: Weight 74 kg
--- NOTE | 2023-02-21 19:20 | P.DS ---
Providers Date of admission: 02/21/23 11:47 Expected date of discharge: 02/21/23 Attending physician: Felix Houser Primary care physician: Domingo Silva Hospital Course: Preliminary cause of Congestive heart failure with systolic dysfunction Final diagnosis Acute on Chronic hypoxic respiratory failure secondary to CHF exacerbation Acute on chronic CHF with systolic dysfunction secondary to above Dyspnea History of Colonic prolapse that reduced on its own with history of colostomy History of recent polymicrobial lower leg infection acute on chronic kidney disease Anemia of chronic disease History of CVA/TIA Atrial fibrillation history History of DVT with PE Hyperlipidemia Hypertension No code Discharge disposition Patient has . According to nursing documentation, time of was 1600 on 02/21/2023. Patient had family members present was placed on comfort care with [facility] GIP services. Total time taken is greater than 35 minutes Hospital course This is an 87-year-old male who was recently admitted with shortness of breath with acute on chronic hypoxic respiratory failure secondary to CHF exacerbation with systolic dysfunction. Patient had significant cardiac history and multiple comorbidities and being placed on high flow oxygen having continued respiratory decline. Patient had an episode Of unresponsiveness and hypoxia this morning requiring increased amounts of oxygen and family has opted for meeting with [facility] and hopeful for making the patient comfortable. Family members including brother were present and patient was placed on morphine drip with comfort care measures only. Patient at 1600 on 02/21/2023. Family members present at time of expiration. Please refer to previous documentations and other consultation notes for further HPI. The impression and plan of care has been dictated by Edith Garcia, Nurse Practitioner as directed. Dr. Phyllis MD I have performed a history and examination and MDM of this patient, discussed th with the dictator, and agree with the dictator's assessment and plan as written ,documented as a scribe. Based on total visit time, I have performed more than 50% of the visit. Patient Condition at Discharge: Poor Plan - Discharge Summary New Discharge Prescriptions: No Action Tamsulosin HCl [Flomax] 0.4 mg PO DAILY@0800 Pantoprazole Sodium [Protonix] 40 mg PO DAILY@0600 Albuterol Inhaler [Ventolin Hfa Inhaler] 2 puff INHALATION RT-Q6H bisacodyL [Dulcolax] 10 mg RECTAL DAILY PRN PRN Reason: Constipation Ensure Enlive 237 ml PO TID@0800,1200,1700 Apixaban [Eliquis] 2.5 mg PO BID@0800,1700 Eucerin Advanced Repair Cream 1 applic TOPICAL DAILY Aspirin 81 mg PO DAILY@1200 polyethylene glycoL 3350 [Miralax] 17 gm PO DAILY@0800 Multivitamins, Thera [Multivitamin (formulary)] 1 tab PO DAILY@1700 Metoprolol Succinate (ER) [Toprol XL] 12.5 mg PO DAILY@0800 Lactulose 30 gm PO DAILY@0800 DAPTOmycin [Cubicin] 400 mg IVPB Q48H each metroNIDAZOLE [Flagyl] 500 mg PO TID@0800,1400,2100 Famotidine [Pepcid] 20 mg PO DAILY tab HYDROcodone/APAP 5-325MG [Keene 5-325] 1 tab PO Q6HR PRN 3 Days #6 tab PRN Reason: Pain Magnesium Hydroxide [Milk of Magnesia Concentrate] 7,200 mg PO Q2D PRN PRN Reason: Constipation Na Phos,M-B/Na Phos,Di-Ba [Fleet Adult] 133 ml RECTAL DAILY PRN PRN Reason: Constipation Eucerin Advanced Repair Cream 1 applic TOPICAL DAILY PRN PRN Reason: Dry Skin Amiodarone [Cordarone] 200 mg PO BID@0800,1700 Thiamine [Vitamin B-1] 100 mg PO BID@0800,1700 Ferrous Sulfate [Iron (65 MG Elemental)] 325 mg PO DAILY@1700 Folic Acid 1 mg PO DAILY@1700 Acetaminophen Tab [Tylenol] 650 mg PO Q6HR PRN tab PRN Reason: Mild Pain Or Fever > 100.5 Cefepime [Maxipime] 1 gm IVPB Q12HR@0800,2100 #0 Collagenase [Santyl Ointment] 1 applic TOPICAL DAILY PRN PRN Reason: Right ischium Collagenase [Santyl Ointment] 1 applic TOPICAL DAILY Discharge Medication List Tamsulosin HCl [Flomax] 0.4 mg PO DAILY@0800 02/14/18 [History] Pantoprazole Sodium [Protonix] 40 mg PO DAILY@0600 10/20/22 [History] Albuterol Inhaler [Ventolin Hfa Inhaler] 2 puff INHALATION RT-Q6H 10/28/22 [History] Apixaban [Eliquis] 2.5 mg PO BID@0800,1700 10/28/22 [History] Aspirin 81 mg PO DAILY@1200 10/28/22 [History] Ensure Enlive 237 ml PO TID@0800,1200,1700 10/28/22 [History] Eucerin Advanced Repair Cream 1 applic TOPICAL DAILY 10/28/22 [History] Eucerin Advanced Repair Cream 1 applic TOPICAL DAILY PRN 10/28/22 [History] Na Phos,M-B/Na Phos,Di-Ba [Fleet Adult] 133 ml RECTAL DAILY PRN 10/28/22 [History] bisacodyL [Dulcolax] 10 mg RECTAL DAILY PRN 10/28/22 [History] Amiodarone [Cordarone] 200 mg PO BID@0800,1700 12/14/22 [History] Ferrous Sulfate [Iron (65 MG Elemental)] 325 mg PO DAILY@1700 01/09/23 [History] Lactulose 30 gm PO DAILY@0800 01/09/23 [History] Metoprolol Succinate (ER) [Toprol XL] 12.5 mg PO DAILY@0800 01/09/23 [History] Multivitamins, Thera [Multivitamin (formulary)] 1 tab PO DAILY@169901/09/23 [History] Thiamine [Vitamin B-1] 100 mg PO BID@0800,1700 01/09/23 [History] polyethylene glycoL 3350 [Miralax] 17 gm PO DAILY@0800 01/09/23 [History] DAPTOmycin [Cubicin] 400 mg IVPB Q48H each 02/05/23 [Rx] Folic Acid 1 mg PO DAILY@1700 02/10/23 [History] metroNIDAZOLE [Flagyl] 500 mg PO TID@0800,1400,2100 02/10/23 [History] Acetaminophen Tab [Tylenol] 650 mg PO Q6HR PRN tab 02/12/23 [Rx] Cefepime [Maxipime] 1 gm IVPB Q12HR@0800,2100 #0 02/12/23 [Rx] Famotidine [Pepcid] 20 mg PO DAILY tab 02/12/23 [Rx] HYDROcodone/APAP 5-325MG [Keene 5-325] 1 tab PO Q6HR PRN 3 Days #6 tab 02/12/23 [Rx] Collagenase [Santyl Ointment] 1 applic TOPICAL DAILY 02/18/23 [History] Collagenase [Santyl Ointment] 1 applic TOPICAL DAILY PRN 02/18/23 [History] Magnesium Hydroxide [Milk of Magnesia Concentrate] 7,200 mg PO Q2D PRN 02/18/23 [History]
== END 2023-02-21 19:31 | disposition expired | DRG 951 ==
LOC: 3SCARD 11:47
PROVIDERS: ADMIT Hospitalist; ATTEND Hospitalist
DX: Z51.5 Encounter for palliative care (principal); I50.23 Acute on chronic systolic (congestive) heart failure; J96.21 Acute and chronic respiratory failure with hypoxia; N17.9 Acute kidney failure, unspecified; I13.0 Hypertensive heart and chronic kidney disease with heart failure and stage 1 through stage 4 chronic kidney disease, or unspecified chronic kidney disease; I42.8 Other cardiomyopathies; I69.351 Hemiplegia and hemiparesis following cerebral infarction affecting right dominant side; Z93.3 Colostomy status; Z66 Do not resuscitate; Z87.19 Personal history of other diseases of the digestive system; Z86.19 Personal history of other infectious and parasitic diseases; D63.8 Anemia in other chronic diseases classified elsewhere; D72.829 Elevated white blood cell count, unspecified; E78.5 Hyperlipidemia, unspecified; I45.10 Unspecified right bundle-branch block; I34.0 Nonrheumatic mitral (valve) insufficiency; I48.0 Paroxysmal atrial fibrillation; Z79.01 Long term (current) use of anticoagulants; N40.0 Benign prostatic hyperplasia without lower urinary tract symptoms; N18.9 Chronic kidney disease, unspecified; L89.159 Pressure ulcer of sacral region, unspecified stage; Z79.82 Long term (current) use of aspirin; Z79.899 Other long term (current) drug therapy; Z86.711 Personal history of pulmonary embolism; Z86.718 Personal history of other venous thrombosis and embolism; Z87.891 Personal history of nicotine dependence; Z90.49 Acquired absence of other specified parts of digestive tract; Z82.0 Family history of epilepsy and other diseases of the nervous system; Z96.1 Presence of intraocular lens; Z98.1 Arthrodesis status; Z98.42 Cataract extraction status, left eye; Z88.8 Allergy status to other drugs, medicaments and biological substances; Z98.41 Cataract extraction status, right eye; Z86.14 Personal history of Methicillin resistant Staphylococcus aureus infection